=== PATIENT | female | born 1955 | race Caucasian/White ===

== ENCOUNTER 2017-06-24 23:04 | Inpatient (IN) | payer OTHER ==
[2017-06-25 00:01] LABS: Absolute Lymphocytes (CBC) 3.1 K/uL (0.7-4.9); Absolute Monocytes 0.8 K/uL (0.1-1.3); Absolute Neutrophil 4.8 K/uL (1.8-8.0); Basophils % 0.7 % (0-1.3); Eosinophils % 6.3 % (0-4.4); Hematocrit 41.8 % (36.0-45.0); MCH 29.6 pg (27.0-35.0); MCV 89.2 fL (80-100); MPV 9.4 fL (7.6-11.3); Monocytes % 8.7 % (3.3-12.3); RBC Red Blood Cell Count 4.68 M/uL (3.86-4.86)
[2017-06-25 00:05] LABS: Protime INR 3.35
[2017-06-25] MEDS ORDERED: NITROGLYCERIN 0.4 MG/TAB SL ONE (00:11)
[2017-06-25 00:15] LABS: Potassium 3.9 mEq/L (3.6-5.0)
[2017-06-25 00:21] LABS: Bilirubin Direct 0.1 mg/dL (0-0.2); Bilirubin Total 0.6 mg/dL (0.3-1.2); CKMB Creatine Kinase MB 1.6 ng/ml (0.3-4.0); Magnesium 2.1 mg/dL (1.8-2.5); Protein, Total 7.8 g/dL (6.0-8.3)
--- NOTE | 2017-06-25 00:41 | ER ---
Nurse's Notes [facility] Name: Celsa Lorenzo Age: 62 yrs Sex: Female : 1955 Arrival Date: 06/24/2017 Time: 23:05 Bed 7 Private MD: Diagnosis: Chest pain, unspecified Presentation: 06/24 22:15 Presenting complaint: Patient states: "On and off today I have been having this bs1 tightness in my chest but it went away, tonight it got unbearable, I took nitro around 2150 tonight and it seemed to help some but they were old, it hurts right in the middle and in between my shoulder blades and underneath my left chest.". Transition of care: patient was not received from another setting of care. Onset of symptoms was June 24, 2017 at 21:00. Care prior to arrival: Medication(s) given: Nitroglycerin, 0.4 mg SL x 1. 22:15 Method Of Arrival: Ambulatory bs1 22:15 Acuity: MAXIMO 2 bs1 Historical: - Allergies: 23:35 Iodine; Topical only; bs1 - Home Meds: 23:35 Coumadin 10 mg Oral tab [Active]; digoxin 125 mcg Oral tab 1 tab once daily [Active]; bs1 Lasix 20 mg Oral tab 1 tab once daily [Active]; Wellbutrin 150mg Oral 1 tab daily [Active]; Zoloft 50 mg Oral tab 1 tab once daily [Active]; methotrexate sodium 2.5 mg Oral tab once wkly [Active]; sotalol 120 mg Oral tab 1 tab 2 times per day [Active]; Xeljanz oral oral [Active]; - PMHx: 23:35 Atrial Fib; CHF; Hypertension; Rheumatoid Arthritis; COPD; mitral valve stenosis; bs1 pulmonary htn; resp failure; cardioversion; - PSHx: 23:35 c section; bs1 - Immunization history:: Adult Immunizations up to date. - Social history:: Smoking status: Patient/guardian denies using tobacco, the patient reports quitting approximately 5 years ago. Screenin:35 Abuse screen: Denies threats or abuse. Denies injuries from another. Nutritional bs1 screening: No deficits noted. Tuberculosis screening: No symptoms or risk factors identified. Fall Risk None identified. Assessment: 23:15 General: Appears in no apparent distress. uncomfortable, Behavior is cooperative, bs1 appropriate for age, anxious. Pain: Complains of pain in mid chest, between shoulder blades, underneath left breast Pain does not radiate. Pain currently is 6 out of 10 on a pain scale. Quality of pain is described as pressure, Pain began gradually. Neuro: Level of Consciousness is awake, alert, obeys commands, Oriented to person, place, time, situation, Appropriate for age Airplane Designer are equal bilaterally Moves all extremities. Gait is steady, Speech is normal, Facial symmetry appears normal. Cardiovascular: Reports chest pain, Denies palpitations, shortness of breath, Heart tones S1 S2 present Capillary refill < 3 seconds Patient's skin is warm and dry. Chest pain is located in chest wall. Respiratory: Airway is patent Trachea midline Respiratory effort is even, unlabored, Respiratory pattern is regular, symmetrical, Breath sounds are clear bilaterally. GI: No deficits noted. No signs and/or symptoms were reported involving the gastrointestinal system. : No deficits noted. No signs and/or symptoms were reported regarding the genitourinary system. EENT: No deficits noted. No signs and/or symptoms were reported regarding the EENT system. Derm: No deficits noted. No signs and/or symptoms reported regarding the dermatologic system. Musculoskeletal: Circulation, motion, and sensation intact. Capillary refill < 3 seconds, Range of motion: intact in all extremities. 06/25 00:15 Reassessment: Patient appears in no apparent distress at this time. Patient and/or bs1 family updated on plan of care and expected duration. Pain level reassessed. Patient is alert, oriented x 3, equal unlabored respirations, skin warm/dry/pink. Blood pressure decreased. Symptoms improving. No chest pain noted at this time. Patient states symptoms have improved. 01:15 Reassessment: Patient appears in no apparent distress at this time. Patient is alert, bs1 oriented x 3, equal unlabored respirations, skin warm/dry/pink. Vital Signs: 06/24 23:15 BP 139 / 116; Pulse 119; Resp 17; Temp 98.3(O); Pulse Ox 96% on R/A; Weight 97.52 kg; bs1 Height 5 ft. 10 in. (177.80 cm); Pain 6/10; 06/25 00:15 BP 111 / 81; Pulse 88; Resp 14; Pulse Ox 97% on R/A; Pain 0/10; bs1 01:15 BP 103 / 67; Pulse 82; Resp 15; Pulse Ox 97% on R/A; Pain 6/10; bs1 02:07 BP 137 / 85; Pulse 118; Resp 20; Pulse Ox 98% on R/A; mt 06/24 23:15 Body Mass Index 30.85 (97.52 kg, 177.80 cm) bs1 ED Course: 06/24 22:15 Arm band placed on right wrist. bs1 23:05 Patient arrived in ED. al2 23:22 EKG done, by ED staff, reviewed by Brent Mcguire MD. mt 23:22 Inserted saline lock: 22 gauge in right forearm, using aseptic technique. bs1 23:22 Patient maintains SpO2 saturation greater than 95% on room air. bs1 23:28 Nancy Navarro, RN is Primary Nurse. bs1 23:32 Triage completed. bs1 23:36 Patient has correct armband on for positive identification. Placed in gown. Bed in low bs1 position. Call light in reach. Side rails up X 1. rocket motor tester on. Pulse ox on. NIBP on. Warm blanket given. 23:41 Pk Bruno NP is PHCP. pm1 23:41 Brent Mcguire MD is Attending Physician. pm1 06/25 00:20 X-ray completed. Portable x-ray completed in exam room. Patient tolerated procedure kw well. 00:35 No provider procedures requiring assistance completed. bs1 00:40 Sherry Juarez MD is Hospitalizing Provider. pm1 01:47 Patient admitted, IV remains in place. intact. bs1 Administered Medications: 06/24 23:52 Drug: Nitroglycerin 0.4 mg Route: Sublingual; bs1 23:57 Drug: Nitroglycerin 0.4 mg Route: Sublingual; bs1 06/25 00:35 Follow up: Response: Pain is decreased bs1 01:31 Drug: morphine 4 mg Route: IVP; Site: right forearm; bs1 02:08 Follow up: Response: No adverse reaction bs1 01:31 Drug: Zofran 4 mg Route: IVP; Site: right forearm; bs1 02:07 Follow up: Response: No adverse reaction bs1 Outcome: 00:40 Decision to Hospitalize by Provider. pm1 01:46 Admitted to [facility] by tech, via stretcher, room 420, with chart, Report bs1 called to EDWINA Moser 01:46 Condition: stable 02:09 Patient left the ED. bs1 Signatures: Cynthia Keller Patrick, TOP IRONER TOP IRONER pm1 Radha Hahn mt, Brittany, RN RN bs1 Maria Alejandra Reed
--- NOTE | 2017-06-25 00:41 | EDPHYS ---
Physician Documentation [facility] Name: Celsa Lorenzo Age: 62 yrs Sex: Female : 1955 Arrival Date: 06/24/2017 Time: 23:05 Bed 7 Private MD: ED Physician Brent Mcguire HPI: 06/25 00:25 This 62 yrs old Female presents to ER via Ambulatory with complaints of Chest pm1 Pain, Back Pain, Shortness Of Breath. 00:25 The patient or guardian reports chest pain that is located primarily in the substernal pm1 area. Onset: this morning. Associated signs and symptoms: Pertinent positives: shortness of breath, Pertinent negatives: abdominal pain, cough. The chest pain is described as a pressure. Duration: The patient or guardian reports multiple episodes, Single chest pain episode of constant duration onset at 2100. Modifying factors: The symptoms are alleviated by NTG, pain from 6-7 to 4/10. Severity of pain: in the emergency department the pain has improved mildly. The patient has experienced similar episodes in the past, a few times. The patient has not recently seen a physician. Patient presents to the ER with complaints of constant chest pain onset at 2100 - 2130. Patient has multiple chest pain episodes, felt like "twinges," at the beginning of the morning that just lasted for a few seconds. Patient with complaint of fullness and pressure to lower substernal area. Took one nitro prior to arrival at 2150 that brought the pain down to 4/10. Patient reports some shortness of breath and nausea. No vomiting. Patient also reporting some pain between her shoulder blades. Historical: - Allergies: 06/24 23:35 Iodine; Topical only; bs1 - Home Meds: 23:35 Coumadin 10 mg Oral tab [Active]; digoxin 125 mcg Oral tab 1 tab once daily [Active]; bs1 Lasix 20 mg Oral tab 1 tab once daily [Active]; Wellbutrin 150mg Oral 1 tab daily [Active]; Zoloft 50 mg Oral tab 1 tab once daily [Active]; methotrexate sodium 2.5 mg Oral tab once wkly [Active]; sotalol 120 mg Oral tab 1 tab 2 times per day [Active]; Xeljanz oral oral [Active]; - PMHx: 23:35 Atrial Fib; CHF; Hypertension; Rheumatoid Arthritis; COPD; mitral valve stenosis; bs1 pulmonary htn; resp failure; cardioversion; - PSHx: 23:35 c section; bs1 - Immunization history:: Adult Immunizations up to date. - Social history:: Smoking status: Patient/guardian denies using tobacco, the patient reports quitting approximately 5 years ago. ROS: 06/25 00:25 Constitutional: Negative for fever, chills, and weight loss, Eyes: Negative for injury, pm1 pain, redness, and discharge, ENT: Negative for injury, pain, and discharge, Neck: Negative for injury, pain, and swelling. : Negative for injury, bleeding, discharge, and swelling, MS/Extremity: Negative for injury and deformity, Skin: Negative for injury, rash, and discoloration, Neuro: Negative for headache, weakness, numbness, tingling, and seizure. Cardiovascular: Positive for chest pain, Negative for edema, palpitations. Respiratory: Positive for shortness of breath, Negative for cough. Abdomen/GI: Positive for nausea, Negative for abdominal pain, vomiting, diarrhea. Back: Positive for Pain between shoulder blades. Exam: 00:25 Constitutional: This is a well developed, well nourished patient who is awake, alert, pm1 and in no acute distress. Head/Face: Normocephalic, atraumatic. Neck: Trachea midline, no thyromegaly or masses palpated, and no cervical lymphadenopathy. Supple, full range of motion without nuchal rigidity, or vertebral point tenderness. No Meningismus. Chest/axilla: Normal chest wall appearance and motion. Nontender with no deformity. No lesions are appreciated. Cardiovascular: Regular rate and rhythm with a normal S1 and S2. No gallops, murmurs, or rubs. Normal PMI, no JVD. No pulse deficits. Respiratory: Lungs have equal breath sounds bilaterally, clear to auscultation and percussion. No rales, rhonchi or wheezes noted. No increased work of breathing, no retractions or nasal flaring. Abdomen/GI: Soft, non-tender, with normal bowel sounds. No distension or tympany. No guarding or rebound. No evidence of tenderness throughout. Back: No spinal tenderness. No costovertebral tenderness. Full range of motion. Skin: Warm, dry with normal turgor. Normal color with no rashes, no lesions, and no evidence of cellulitis. MS/ Extremity: Pulses equal, no cyanosis. Neurovascular intact. Full, normal range of motion. 00:25 Neuro: Orientation: is normal, Motor: is normal, moves all fours. Vital Signs: 06/24 23:15 BP 139 / 116; Pulse 119; Resp 17; Temp 98.3(O); Pulse Ox 96% on R/A; Weight 97.52 kg; bs1 Height 5 ft. 10 in. (177.80 cm); Pain 6/10; 06/25 00:15 BP 111 / 81; Pulse 88; Resp 14; Pulse Ox 97% on R/A; Pain 0/10; bs1 01:15 BP 103 / 67; Pulse 82; Resp 15; Pulse Ox 97% on R/A; Pain 6/10; bs1 02:07 BP 137 / 85; Pulse 118; Resp 20; Pulse Ox 98% on R/A; mt 06/24 23:15 Body Mass Index 30.85 (97.52 kg, 177.80 cm) bs1 MDM: 06/24 23:50 Patient medically screened. pm1 06/25 00:25 Data reviewed: vital signs. Data interpreted: Pulse oximetry: on room air is 97 %. pm1 Interpretation: normal. Counseling: I had a detailed discussion with the patient and/or guardian regarding: the historical points, exam findings, and any diagnostic results supporting the discharge/admit diagnosis, lab results, radiology results, the need for further work-up and treatment in the hospital. 06/24 23:42 Order name: Basic Metabolic Panel [facility] 06/24 23:42 Order name: BNP [facility] 06/24 23:42 Order name: CBC with Diff [facility] 06/24 23:42 Order name: Ckmb [facility] 06/24 23:42 Order name: CPK [facility] 06/24 23:42 Order name: Basic Metabolic Panel [facility] 06/24 23:42 Order name: LFT's [facility] 06/24 23:42 Order name: Magnesium [facility] 06/24 23:42 Order name: PT-INR [facility] 06/24 23:42 Order name: Ptt, Activated [facility] 06/24 23:42 Order name: Troponin (emerg Dept Use Only) [facility] 06/24 23:42 Order name: BNP [facility] 06/24 23:42 Order name: CBC with Diff [facility] 06/24 23:42 Order name: Ckmb pm1 06/24 23:42 Order name: CPK pm1 06/24 23:42 Order name: LFT's pm 06/24 23:42 Order name: Magnesium pm 06/24 23:42 Order name: PT-INR 1 06/24 23:42 Order name: Ptt, Activated pm 06/24 23:42 Order name: Troponin (emerg Dept Use Only) pm 06/25 00:03 Order name: CBC with Automated Diff; Complete Time: 00:23 EDMS 06/25 00:10 Order name: Protime (+INR); Complete Time: 00:23 EDMS 06/25 00:10 Order name: PTT, Activated Partial Thromb; Complete Time: 00:23 EDMS 06/25 00:15 Order name: Basic Metabolic Panel [facility] 06/25 00:17 Order name: Troponin (Emerg Dept Use Only); Complete Time: 00:23 EDMS 06/25 00:20 Order name: BNP B-Type Natriuretic Peptide; Complete Time: 00:23 EDMS 06/25 00:21 Order name: Liver (Hepatic) Function [facility] 06/25 00:21 Order name: Creatine Phosphokinase [facility] 06/25 00:21 Order name: Magnesium [facility] 06/25 00:21 Order name: CKMB Creatine Kinase MB [facility] 06/24 23:42 Order name: XRAY Chest (1 view) [facility] 06/24 23:42 Order name: EKG; Complete Time: 23:42 [facility] 06/24 23:42 Order name: Cardiac monitoring [facility] 06/24 23:42 Order name: EKG - Nurse/Tech [facility] 06/24 23:42 Order name: IV Saline Lock 06/24 23:42 Order name: Labs collected and sent 06/24 23:42 Order name: O2 Per Protocol [facility] 06/24 23:42 Order name: O2 Sat Monitoring 06/24 23:42 Order name: Urine Dipstick-Ancillary (obtain specimen) [facility] 06/24 23:42 Order name: XRAY Chest (1 view) [facility] 06/24 23:42 Order name: EKG; Complete Time: 23:42 pm 06/24 23:42 Order name: Cardiac monitoring; Complete Time: 23:43 pm 06/24 23:42 Order name: EKG - Nurse/Tech; Complete Time: 23:43 pm1 06/24 23:42 Order name: IV Saline Lock; Complete Time: 23:43 pm1 06/24 23:42 Order name: O2 Per Protocol; Complete Time: 23:44 pm1 06/24 23:42 Order name: O2 Sat Monitoring; Complete Time: 23:43 pm1 Administered Medications: 06/24 23:52 Drug: Nitroglycerin 0.4 mg Route: Sublingual; bs1 23:57 Drug: Nitroglycerin 0.4 mg Route: Sublingual; bs1 06/25 00:35 Follow up: Response: Pain is decreased bs1 01:31 Drug: morphine 4 mg Route: IVP; Site: right forearm; bs1 02:08 Follow up: Response: No adverse reaction bs1 01:31 Drug: Zofran 4 mg Route: IVP; Site: right forearm; bs1 02:07 Follow up: Response: No adverse reaction bs1 Disposition: 03:51 Co-signature as Attending Physician, Brent Mcguire MD. pkseth Disposition: 06/25/17 00:40 Hospitalization ordered by Sherry Juarez for Observation. Preliminary diagnosis is Chest pain, unspecified. - Bed requested for Telemetry/MedSurg (observation). - Status is Observation. bs1 - Condition is Stable. - Problem is new. - Symptoms have improved. UTI on Admission? No Signatures: Dispatcher [employer] Rosalba Juarez RN RN kl Lam, Pin, MD MD pkl Pk Bruno, JEFFERSON ASSISTANT PROFESSOR OF MATHEMATICS pm1 Nancy Navarro, RN RN bs1
[2017-06-25] MEDS ORDERED: MORPHINE 4 MG/ML SYR ONE (01:08)
[2017-06-25] MEDS ORDERED: ONDANSETRON 4 MG/2 ML VIAL ONE (01:08)
[2017-06-25] MEDS ORDERED: NITROGLYCERIN 0.4 MG/TAB SL PRN (01:39)
[2017-06-25] MEDS ORDERED: ACETAMINOPHEN 500 MG TAB PO PRN (01:39)
--- NOTE | 2017-06-25 01:44 | P.HP ---
Certification for Inpatient Patient admitted to: Observation With expected LOS: <2 Midnights Practitioner: I am a practitioner with admitting privileges, knowledge of patient current condition, hospital course, and medical plan of care. Services: Services provided to patient in accordance with Admission requirements found in Title 42 Section 412.3 of the Code of Federal Regulations Patient History Date of Service: 06/25/17 Reason for admission: chest pain History of Present Illness: Ms Lorenzo is a 62 years old woman with history of RA, COPD, moderate mitral stenosis, HTN, Chronic A.fib anticoagulated with coumadin, who came to ED complaining of chest pain. The pain started yesterday, it was on and off, initially lasting for a few seconds, localized on substernal area radiated to bilateral neck and mandibular area. Tonight, the pain was more intense (8/10), radiated to the back between shoulder blade. She describe the pain as tight feeling. She took a nitro SL, and the pain slightly improved. Then she received 2 more nitro in ER and she felt some relieve. The patient has previous NM stress test done at [facility], which was negative. 2 month ago she was admitted for COPD exacerbation and had an ECHO done, showing mild global hypokinesis EF 46%. At my encounter the patient was starting to have pain again. Initial trop I is negative, EKG remarkable for a.fib without ST-T changes. Allergies iodine Allergy (Verified 04/20/17 21:14) Unknown Home Medications: Digoxin [Lanoxin*] 0.125 mg PO DAILY 04/20/17 Methotrexate [Methotrexate*] 8 tab PO EVERY 7TH DAY 04/20/17 Warfarin Sodium [Coumadin] 10.5 mg PO DAILY 04/20/17 Albuterol Sulfate [Proair Hfa] 8.5 gm IH TID PRN #90 hfa.aer.[email or web address] 04/25/17 Cefuroxime [Ceftin*] 500 mg PO BID #14 tab 04/25/17 Fluticasone/Salmeterol [Airduo Respiclick 113-14 Mcg] 1 each IH BID #1 aer.pow.[email or web address] 04/25/17 Furosemide [Lasix*] 40 mg PO DAILY #30 tab 04/25/17 Prednisone [Prednisone*] 20 mg PO SEECOM #15 tab 04/25/17 Sotalol HCl [Betapace*] 160 mg PO BID 6AM 6PM #120 tab 04/25/17 - Past Medical/Surgical History Has patient received pneumonia vaccine in the past: No Diabetic: No -: Afib -: Rheumatoid arthritis -: Hypertension -: CHF -: pulm htn -: copd -: mitral valve stenosis -: resp failure -: mitral valve replacement -: c- section - Family History Family History: Reviewed- Non-Contributory - Social History Smoking Status: Former smoker Alcohol use: No CD- Drugs: No Caffeine use: No Place of Residence: Home Review of Systems 10-point ROS is otherwise unremarkable Physical Examination - Physical Exam General: Alert, In no apparent distress HEENT: Atraumatic, PERRLA, Mucous membr. moist/pink, EOMI, Sclerae nonicteric Neck: Supple, 2+ carotid pulse no bruit, No LAD, Without JVD or thyroid abnormality Respiratory: Clear to auscultation bilaterally, Normal air movement Cardiovascular: Regular rate/rhythm, Normal S1 S2 Gastrointestinal: Normal bowel sounds, No tenderness Musculoskeletal: No tenderness Integumentary: No rashes Neurological: Normal speech, Normal strength at 5/5 x4 extr, Normal tone, Normal affect Lymphatics: No axilla or inguinal lymphadenopathy - Studies Laboratory Data (last 24 hrs) 06/24/17 23:22: PT 40.0 H, INR 3.35, APTT 42.8 H 06/24/17 23:22: WBC 9.4, Hgb 13.9, Hct 41.8, Plt Count 262 06/24/17 23:22: B-Natriuretic Peptide 341 H 06/24/17 23:22: Sodium 135, Potassium 3.9, BUN 16, Creatinine 1.00, Glucose 117 , Magnesium 2.1, Total Bilirubin 0.6, AST 28, ALT 18, Alkaline Phosphatase 56 Assessment and Plan - Problems (Diagnosis) (1) Chest pain Current Visit: Yes Status: Acute Qualifiers: Chest pain type: precordial pain Qualified Code(s): R07.2 - Precordial pain (2) Moderate mitral stenosis Current Visit: Yes Status: Acute (3) COPD (chronic obstructive pulmonary disease) Current Visit: No Status: Acute Qualifiers: COPD type: COPD with acute exacerbation Qualified Code(s): J44.1 - Chronic obstructive pulmonary disease with (acute) exacerbation (4) Atrial fibrillation Current Visit: No Status: Chronic Qualifiers: Atrial fibrillation type: chronic Qualified Code(s): I48.2 - Chronic atrial fibrillation (5) Chronic anticoagulation Current Visit: No Status: Chronic (6) HTN (hypertension) Onset Date: 04/23/17 Current Visit: No Status: Chronic Qualifiers: Hypertension type: essential hypertension Qualified Code(s): I10 - Essential (primary) hypertension - Plan The patient will be admitted to the hospital due to chest pain in order to S/O ACS. initial trop is negative, no EKG changes. Will continue serial cardiac enzymes. She had a recent ECHO done about [address] braun for evaluation and recommendations. She is on good range of anticoagulation with Coumadin. - Advance Directives Does patient have a Living Will: No Does patient have a Durable POA for Healthcare: No - Code Status/Comfort Care Code Status Assessed: Yes Code Status: Full Code
[2017-06-25 02:40] VITALS: BMI 29.7
--- NOTE | 2017-06-25 05:02 | EKG ---
Test Date: 2017-06-24 Test Time: 23:13:27 Medical Device Engineer: HARRISON MEASUREMENT RESULTS: Intervals: Rate: 104 SD: QRSD: 84 QT: 350 QTc: 460 Diamond: P: SD: QRS: 80 T: 107 INTERPRETIVE STATEMENTS: Atrial fibrillation with rapid ventricular response Cannot rule out Anterior infarct, age undetermined Abnormal ECG Compared to ECG 04/20/2017 11:26:54 Myocardial infarct finding now present Atrial flutter no longer present ST (T wave) deviation no longer present Electronically Signed On 06-25-17 05:01:34 CDT by Jak Guzman
[2017-06-25] MEDS: SOTALOL HCL 80 MG TAB PO SCH ×2 (07:07→17:33)
--- NOTE | 2017-06-25 07:51 | RAD REPORT ---
EXAM DESCRIPTION: RAD - Chest Single View - 06/25/2017 12:23 am CLINICAL HISTORY: Chest pain, chest tightness COMPARISON: April 2017 TECHNIQUE: AP portable chest image was obtained 0000 hours . FINDINGS: No focal mass or consolidation. Interstitial markings are prominent but unchanged. Upper l obe vasculature is within upper normal limits. Mild cardiomegaly is present similar to prior imaging. No measurable pleural effusion and no pneumothorax. No gross bony abnormality seen. No acute aortic findings suspected. IMPRESSION: Mild cardiomegaly similar to prior imaging. No additional findings for significant failu re or volume overload. Mild prominence of the vasculature and lung markings similar to comparison.
[2017-06-25] MEDS ORDERED: VITAMIN K (ADULT) 10 MG/ML SQ SCH (08:00)
[2017-06-25] MEDS: ASPIRIN EC 81 MG TAB PO SCH (08:52)
[2017-06-25] MEDS: MORPHINE 4 MG/ML SYR IV PRN ×3 (09:09→21:03)
[2017-06-25] MEDS ORDERED: ALBUTEROL INHALER 60 PUFF/8 GM IH PRN (10:11)
[2017-06-25] MEDS ORDERED: FLUTICASONE IH PRN (10:11)
[2017-06-25] MEDS ORDERED: SALMETEROL IH PRN (10:11)
--- NOTE | 2017-06-25 12:34 | CON ---
CARDIOLOGY CONSULT Chief Complaint: Chest pain. History Of Present Illness: Mrs. Lorenzo has had atrial fibrillation for several years. She has bee n on Coumadin. She is thought to have mitral stenosis that is mild; it has not been bad enough to re quire surgery. She spent most of her time in sinus rhythm until recently. Now, she thinks she is in atrial fibrillation all the time with the rate controlled. She takes Coumadin. Yesterday, she came in with severe chest pain. It sounded very much like angina, but since being here, cardiac enzymes remained normal. Her heart rate was very rapid. Once it slowed down, she no longer had the chest pa in. A month ago, her ejection fraction was depressed. She had evidence of moderate mitral stenosis. Medications: Outpatient medications have been methotrexate, albuterol, sertraline, digoxin, Coumadin , bupropion, Xeljanz, sotalol 120 b.i.d., furosemide, and AirDuo RespiClick. Social History: She does not use tobacco or alcohol. Past Medical History: She has underlying hypertension, atrial fibrillation, rheumatoid arthritis, an d depression. Physical Examination: Vital Signs: Height 5 feet 10 inches, weight 207 pounds. General: Alert, oriented, pleasant, and not in distress. Lungs: Clear. Cardiac: Holosystolic murmur. Irregularly irregular. I do not hear a diastolic rumble or opening s nap. Abdomen: Soft. Extremities: Trace edema. Distal pulses within normal limits. Diagnostic Data: Her electrocardiogram shows AFib, rapid ventricular response, possible anterior inf arct. Her heart rate was just 104 when she came in. Impression: Ms. Lorenzo probably is having unstable angina. I think she should have a heart cathete rization that will figure out if she is a candidate for valve surgery and/or an atrial fibrillation a blation. She spent a significant amount of time in the hospital in the last 3 months and it is proba truong time to shift gears and get more aggressive. I am very suspicious she has underlying coronary he art disease causing this in spite of the normal enzymes. Thank you very much for your kind referral of Ms. Lorenzo. I will follow her with you. ABBY/RINA Voice ID: [id number] Report ID: [id number]
[2017-06-25 18:14] LABS: Protime INR 3.49
--- NOTE | 2017-06-25 20:08 | PN ---
Date of Progress Note: 06/25/2017 The patient is seen and examined, chart reviewed and case discussed with RN. Subjective: The patient states her chest pain has improved. Otherwise, doing well. Review of Systems: Negative, except as above. Medications: Reviewed. Physical Examination: Vital Signs: Temperature 98.2, heart rate 89, blood pressure 114/84, respirations 16, and O2 of 97% on room air. General: Awake, alert, and oriented x3, somewhat ill-appearing female. CV: S1 and S2. No murmurs. Peripheral pulses present. Respiratory: Clear to auscultation bilaterally. No wheezing. Gastrointestinal: Abdomen is soft, nontender, and nondistended. Positive bowel sounds. Extremities: No clubbing, cyanosis, or edema. Neurologic: Nonfocal. Laboratory Data: Troponin less than 0.03 x2. INR pending. Assessment And Plan: A 62-year-old female with, 1.Unstable angina. Cardiac enzymes are negative. However, the patient is at risk for coronary kwesi ry disease. I appreciate Dr. Guzman' input. Going for cardiac catheterization in a.m. 2.Moderate mitral stenosis. 3.Chronic obstructive pulmonary disease with acute exacerbation. We will continue DuoNeb and steroi ds. 4.Atrial fibrillation, chronic, rate controlled, on anticoagulation. 5.Essential hypertension. 6.Overweight, BMI 29. 7.Rheumatoid arthritis. We will hold methotrexate for now. 8.Congestive heart failure. Echocardiogram shows EF of 47% from April. 9.Gastrointestinal and deep venous thrombosis prophylaxis addressed. Plan: Anticipate heart catheterization in a.m. /RINA Voice ID: [id number] Report ID: [id number]
[2017-06-25] MEDS: ATORVASTATIN 80 MG TAB PO SCH (21:02)
[2017-06-26 05:17] LABS: Absolute Lymphocytes (CBC) 1.8 K/uL (0.7-4.9); Absolute Monocytes 0.7 K/uL (0.1-1.3); Absolute Neutrophil 4.7 K/uL (1.8-8.0); Basophils % 0.7 % (0-1.3); Eosinophils % 7.2 % (0-4.4); Hematocrit 40.3 % (36.0-45.0); Lymphocytes % 22.8 % (15.3-44.8); MCH 29.6 pg (27.0-35.0); MCV 91.2 fL (80-100); MPV 9.2 fL (7.6-11.3); Monocytes % 9.4 % (3.3-12.3); RBC Red Blood Cell Count 4.42 M/uL (3.86-4.86)
[2017-06-26 05:46] LABS: Albumin 3.5 g/dL (3.2-5.5); Bilirubin Total 0.5 mg/dL (0.3-1.2); Potassium 4.6 mEq/L (3.6-5.0); Protein, Total 6.6 g/dL (6.0-8.3)
[2017-06-26] MEDS: SOTALOL HCL 80 MG TAB PO SCH ×2 (05:54→17:16)
[2017-06-26 06:25] LABS: Protime INR 2.61
[2017-06-26] MEDS: DIGOXIN 0.125 MG TABLET PO SCH (08:56)
[2017-06-26] MEDS: FUROSEMIDE 20 MG TABLET PO SCH (08:56)
[2017-06-26] MEDS: buPROPion HCl 100 MG TAB PO SCH (08:56)
[2017-06-26] MEDS: SERTRALINE HCL 50 MG TAB PO SCH (08:57)
[2017-06-26] MEDS: ASPIRIN EC 81 MG TAB PO SCH (08:57)
[2017-06-26] MEDS: MORPHINE 4 MG/ML SYR IV PRN ×2 (11:03→17:19)
--- NOTE | 2017-06-26 14:54 | PN ---
Date of Progress Note: 06/26/2017 The patient seen and examined. Chart reviewed. Case discussed with RN. Subjective: The patient had uneventful night. The patient states she had one bout of chest pain, which improved with morphine. The patient is awaiting heart catheterization. Review of Systems: Negative except as above. Medications: Reviewed. Physical Examination: Vital Signs: Temperature 97.4, heart rate 77, blood pressure 114/75, respirations 16, O2 95% on room air. General: Awake, alert, and oriented x3. Older than stated age, elderly female. CV: S1, S2. Regular rate and rhythm. Murmurs present. Respiratory: Clear to auscultation bilaterally. No wheezing. No stridor. No use of accessory muscles. Gastrointestinal: Abdomen is soft, nontender, nondistended. Positive bowel sounds. Extremities: No clubbing, cyanosis, or edema. Neurologic: Nonfocal. Laboratory Data: Sodium 137, potassium 4.6, chloride 104, CO2 28, BUN 17, creatinine 0.86, glucose 102, calcium 9.4. WBC 7.8, H and H 13.1 and 40.3, platelets 222, INR 2.61. Assessment And Plan: A 62-year-old female with; 1. Unstable angina, acute coronary syndrome ruled out. The patient is scheduled for heart catheterization once INR improves. Appreciate Cardiology input. 2. Moderate mitral stenosis. 3. Chronic obstructive pulmonary disease with acute exacerbation. Continue DuoNebs and wean steroids. 4. Atrial fibrillation chronic rate controlled, acute regulation held. 5. Essential hypertension stable, continue home medications. 6. Overweight, BMI 29. 7. Rheumatoid arthritis. Methotrexate on hold for now. 8. Acute congestive heart failure, systolic dysfunction, ejection fraction of 47% from April. 9. Gastrointestinal and deep venous thrombosis prophylaxis addressed. plan: Anticipate heart catheterization. /RINA Voice ID: [id number] Report ID: [id number] MTDD
[2017-06-26] MEDS: RANITIDINE 150 MG TABLET PO SCH ×2 (20:34→20:39)
[2017-06-26] MEDS: ATORVASTATIN 80 MG TAB PO SCH (20:34)
--- NOTE | 2017-06-26 22:15 | PN ---
Date of Progress Note: 06/26/2017 The patient was admitted with atrial fibrillation and chest pain, moderate mitral stenosis. There is a plan to do a left and right heart catheterization on her. Her INR was 3.49, was given 10 mg of vi tamin K subcu yesterday at 8:30 p.m. This morning, her INR is about 2.6. Still not a candidate for catheterization yet. We will not give anymore vitamin K. We will see what her INR is in the morning and we will decide when to do the catheterization. She is still in atrial fibrillation at a rate co ntrol and no chest pain. Her vital signs were stable. She has no complaints. SHARON/RINA Voice ID: [id number] Report ID: [id number]
[2017-06-27] MEDS: MORPHINE 4 MG/ML SYR IV PRN ×4 (00:50→20:59)
[2017-06-27] MEDS: SOTALOL HCL 80 MG TAB PO SCH ×2 (06:12→18:08)
[2017-06-27 06:21] LABS: Absolute Lymphocytes (CBC) 1.5 K/uL (0.7-4.9); Absolute Monocytes 0.9 K/uL (0.1-1.3); Absolute Neutrophil 5.9 K/uL (1.8-8.0); Basophils % 0.8 % (0-1.3); Eosinophils % 6.4 % (0-4.4); Hematocrit 40.1 % (36.0-45.0); MCH 29.5 pg (27.0-35.0); MCV 90.8 fL (80-100); MPV 9.4 fL (7.6-11.3); Monocytes % 9.6 % (3.3-12.3); RBC Red Blood Cell Count 4.42 M/uL (3.86-4.86)
[2017-06-27 06:46] LABS: Albumin 3.6 g/dL (3.2-5.5); Bilirubin Total 1.1 mg/dL (0.3-1.2); Potassium 4.2 mEq/L (3.6-5.0); Protein, Total 6.6 g/dL (6.0-8.3)
[2017-06-27 07:10] LABS: Protime INR 1.4
[2017-06-27] MEDS: RANITIDINE 150 MG TABLET PO SCH ×2 (08:11→21:00)
[2017-06-27] MEDS: SERTRALINE HCL 50 MG TAB PO SCH (08:11)
[2017-06-27] MEDS: FUROSEMIDE 20 MG TABLET PO SCH (08:12)
[2017-06-27] MEDS: DIGOXIN 0.125 MG TABLET PO SCH (08:12)
[2017-06-27] MEDS: buPROPion HCl 100 MG TAB PO SCH (08:12)
[2017-06-27] MEDS: ASPIRIN EC 81 MG TAB PO SCH (08:13)
[2017-06-27] MEDS ORDERED: HEPARIN/D5W 25,000 UNIT/500 ML BAG IV SCH (10:00)
--- NOTE | 2017-06-27 19:16 | PN ---
Date of Progress Note: 06/27/2017 Subjective: The patient seen and examined. Chart reviewed. Case discussed with Dr. Guzman. The nancy bower is scheduled for cardiac catheterization in a.m. The patient still reports ongoing intermitten t chest pain, improved with medications. Review of Systems: Negative except as above. Medications: Reviewed. Physical Examination: Vital Signs: Temperature 97.2, heart rate 72, blood pressure 126/66, respirations 18, O2 94% on room air. General: Awake, alert, and oriented x3, some mild distress. Obese female, BMI of 30. CV: S1, S2 irregularly irregular. Peripheral pulses present. Murmur is heard. Respiratory: Clear to auscultation bilaterally. No wheezing. Abdomen: Soft, nontender, nondistended. Positive bowel sounds. No guarding or rigidity. Extremities: No clubbing, cyanosis, or edema. Neurologic: Nonfocal. Laboratory Data: Sodium 137, potassium 4.2, chloride 103, CO2 28, BUN 13, creatinine 0.79, glucose 8 8, calcium 9.3. WBC 9, H and H 13 and 40.1, platelets 213. INR 1.4. Assessment And Plan: A 62-year-old female with; 1.Unstable angina. Troponin levels negative. Scheduled for right and left heart catheterization in a.m. Cardiology on the case. 2.Moderate mitral stenosis. 3.Chronic obstructive pulmonary disease with acute exacerbation. Continue DuoNebs, supplemental oxy gen as needed. 4.Atrial fibrillation, chronic, rate controlled, anticoagulation held. 5.Essential hypertension, stable on medications. 6.Obese, BMI of 30. 7.Rheumatoid arthritis. DMARDs on hold. 8.Acute congestive heart failure, heart failure, systolic dysfunction, ejection fraction of 47%. We will continue diuresis and congestive heart failure guidelines. 9.Gastrointestinal and deep venous thrombosis prophylaxis with PPI. No chemical anticoagulation due to anticipated procedure in a.m. SA/MODL Voice ID: [id number] Report ID: [id number]
[2017-06-27] MEDS: ATORVASTATIN 80 MG TAB PO SCH (20:59)
[2017-06-28] MEDS: MORPHINE 4 MG/ML SYR IV PRN ×2 (01:47→11:19)
[2017-06-28 05:42] LABS: Absolute Lymphocytes (CBC) 1.9 K/uL (0.7-4.9); Absolute Neutrophil 5.2 K/uL (1.8-8.0); Basophils % 0.7 % (0-1.3); Eosinophils % 5.8 % (0-4.4); Hematocrit 39.2 % (36.0-45.0); Lymphocytes % 21.8 % (15.3-44.8); MCH 29.9 pg (27.0-35.0); MPV 9.4 fL (7.6-11.3); Monocytes % 11.7 % (3.3-12.3); RBC Red Blood Cell Count 4.31 M/uL (3.86-4.86)
[2017-06-28 05:54] LABS: Protime INR 1.15
[2017-06-28 05:57] LABS: Potassium 4.1 mEq/L (3.6-5.0)
[2017-06-28] MEDS: SOTALOL HCL 80 MG TAB PO SCH ×2 (06:08→16:59)
[2017-06-28] MEDS ORDERED: HEPA 1000U/500MLS 2,000 UNIT/1,000 ML BAG IV ONE (07:13)
[2017-06-28] MEDS ORDERED: LIDOCAINE 1% 20 ML MDV ONE ×2 (07:13→08:31)
[2017-06-28] MEDS ORDERED: NA CHLORIDE 0.9% 500 ML ONE (07:58)
[2017-06-28] MEDS ORDERED: ATROPINE SULF 1 MG/10 ML SYR IV ONE (07:58)
[2017-06-28] MEDS ORDERED: MIDAZOLAM HCL 2 MG/2 ML INJ ONE ×3 (07:58→08:29)
[2017-06-28] MEDS ORDERED: NA CHLORIDE 0.9% 0 ML ONE (07:59)
[2017-06-28] MEDS ORDERED: FENTANYL CITR 100 MCG/2 ML ONE (08:03)
[2017-06-28] MEDS ORDERED: NA CHLORIDE 0.9% 100 ML IV ONE (08:18)
[2017-06-28] MEDS ORDERED: METHYLPREDNISOLONE 125 MG INJ ONE (08:27)
[2017-06-28] MEDS ORDERED: FLUMAZENIL 0.1 MG/ML (5 mL VIAL) IV ONE (08:34)
[2017-06-28] MEDS: RANITIDINE 150 MG TABLET PO SCH ×2 (09:00→20:54)
[2017-06-28] MEDS: buPROPion HCl 100 MG TAB PO SCH (09:00)
[2017-06-28] MEDS: SERTRALINE HCL 50 MG TAB PO SCH (13:33)
[2017-06-28] MEDS: ASPIRIN EC 81 MG TAB PO SCH (13:33)
[2017-06-28] MEDS: DIGOXIN 0.125 MG TABLET PO SCH (13:36)
[2017-06-28] MEDS: FUROSEMIDE 20 MG TABLET PO SCH (13:38)
--- NOTE | 2017-06-28 14:06 | RAD REPORT ---
EXAM DESCRIPTION: RAD - Abdomen 1 View (KUB) - 06/28/2017 1:47 pm CLINICAL HISTORY: Abdominal pain COMPARISON: None. FINDINGS: Bowel gas pattern is non-specific. No obstruction, free air or pneumatosis. No suspicious calcifications. Contrast is present in the urinary bladder. The patient apparently underwent a cardi ac catheterization procedure earlier in the day. No significant bony findings IMPRESSION: Negative KUB examination.
--- NOTE | 2017-06-28 16:22 | PN ---
Date of Progress Note: 06/28/2017 Subjective: Patient seen and examined. Chart reviewed. Case discussed with RN and Dr. Ash. Th e patient went for cardiac catheterization this morning with normal coronaries. The patient denies a ny chest pain. Does report some abdominal pain. Review of Systems: Negative except as above. Medications: Reviewed. Physical Examination: Vital Signs: Temperature 97.8, heart rate 94, blood pressure 136/67, respirations 16, O2 saturation 98% on room air. General: Awake, alert, oriented x3, some mild distress due to abdominal pain, obese female. BMI 30. CV: S1, S2. No murmurs. Irregular rate. Peripheral pulses present. Respiratory: Clear to auscultation bilaterally. No wheezing. Abdomen: Abdomen soft, nontender, nondistended. Positive bowel sounds. Extremities: No clubbing, cyanosis, or edema. Catheter site shows no hematoma. Neurologic: Nonfocal. Sensation intact. Laboratory Data: Sodium 138, potassium 4.1, chloride 103, CO2 30, BUN 12, creatinine 0.8, glucose 10 3, calcium 9.2. WBC 8.7, H and H 12.9 and 39.2, platelets 205. Assessment: A 62-year-old female with: 1.Unstable angina. Cardiac catheterization done today shows normal coronaries. 2.Moderate mitral stenosis, no surgical intervention required at this time. 3.Chronic obstructive pulmonary disease with acute exacerbation. We will continue albuterol, supple mental oxygen as needed. 4.Atrial fibrillation, chronic, rate controlled. We will restart heparin today and resume Coumadin. The patient will need to be on heparin until INR is above 2. 5.Essential hypertension, stable. 6.Obesity, BMI of 30. 7.Rheumatoid arthritis. 8.Acute congestive heart failure, systolic dysfunction, ejection fraction 47%. Continue congestive heart failure guidelines. 9.Gastrointestinal and deep venous thromboses prophylaxis with PPI. We will resume heparin today. 10.Abdominal pain, unclear etiology. We will obtain abdominal x-ray. No nausea or vomiting. Plan: Resume anticoagulation, likely discharge in next 24-48 hours once INR above 2. SA/MODL Voice ID: [id number] Report ID: [id number]
[2017-06-28] MEDS ORDERED: HYDROCODONE/APAP 5/325 MG TAB PO PRN (16:27)
[2017-06-28] MEDS ORDERED: WARFARIN SODIUM 7.5 MG TAB PO SCH (17:00)
[2017-06-28] MEDS ORDERED: WARFARIN SODIUM 3 MG TAB PO SCH (17:00)
[2017-06-28] MEDS ORDERED: WARFARIN SODIUM 2.5 MG TAB ONE (17:06)
[2017-06-28] MEDS: ATORVASTATIN 80 MG TAB PO SCH (20:53)
--- NOTE | 2017-06-29 02:39 | OP ---
Date of Procedure: 06/28/2017 Surgeon: Dilip Ash MD Procedures: Left heart catheterization, right heart catheterization, cardiac output measurement, O2 saturation measurements. Indications: Atrial fibrillation, unstable angina, and mitral stenosis. The patient had been in the hospital, being weaned off her Coumadin, so the procedure can be done. S he had come in with chest pain. She has known mitral stenosis, rapid atrial fibrillation, elevated t roponin. Procedure In Detail: She was brought to the geochemical laboratory technician as an inpatient, prepped and draped in the rout ine sterile fashion, given 4 mg of sedation with Versed and 25 mg of fentanyl. A 6-Gibraltarian sheath was introduced in the right common femoral artery. A 7-Gibraltarian sheath was introduced in the right common femoral vein. Right heart catheterization using [place]-Angelina catheter was performed through the venous access. Right atrial pressure was elevated with a mean of 14. Her PA pressure and RV pressure syst olic were in the 40s with slightly elevated PA diastolic pressure and wedge pressure. O2 saturations were within normal limits. Cardiac output was about 4.5 L/minute. There was no evidence of any jaime nt. The left heart catheterization was done, selective coronary arteries with the Tobin catheter s how normal right coronary, normal left main, LAD and circumflex. Left ventriculogram was done. She had a normal ejection fraction of anything hyperdynamic. There was a small gradient between the left ventricular end-diastolic pressure and the PA diastolic by simultaneous measurement of both pressure s. Numbers were pending, but it appear to be consistent with moderate mitral stenosis. Complications: None. Estimated Blood Loss: 10 cc. Total conscious sedation was 1 hour. Operators: Dilip Ash M.D. and Natanael Bejarano. Plan: Plan is to continue medical therapy. We will keep her on heparin, restart Coumadin until her INR is adequate before we send her home. We will continue her Betapace. We may have to go up on the dose or maybe consult EP Services and possibly go to amiodarone, but we will make that decision late r. Final Diagnoses: Moderate mitral stenosis, atrial fibrillation, normal coronaries. SHARON/AFSANEHL Voice ID: [id number] Report ID: [id number]
[2017-06-29] MEDS: SOTALOL HCL 80 MG TAB PO SCH (05:27)
[2017-06-29 06:00] LABS: Protime INR 1.11
[2017-06-29] MEDS ORDERED: HEPARIN 5000 UNIT/ML 1 ML VIAL IV ONE (07:00)
[2017-06-29] MEDS: SERTRALINE HCL 50 MG TAB PO SCH (08:40)
[2017-06-29] MEDS: ASPIRIN EC 81 MG TAB PO SCH (08:40)
[2017-06-29] MEDS: RANITIDINE 150 MG TABLET PO SCH (08:40)
[2017-06-29] MEDS: DIGOXIN 0.125 MG TABLET PO SCH (08:40)
[2017-06-29] MEDS: FUROSEMIDE 20 MG TABLET PO SCH (08:40)
[2017-06-29] MEDS ORDERED: BUPROPION HCL XL 150 MG TAB PO SCH (09:00)
[2017-06-29 11:36] VITALS: BP 122/79; TEMP 97.6
[2017-06-29 12:23] VITALS: O2SAT 97
--- NOTE | 2017-06-30 01:52 | DS ---
Date of Discharge: 06/29/2017 Consultants: Dr. Guzman and Dr. Ash with Cardiology. Procedures: On 06/28/2017, cardiac catheterization, left and right. No stent placement. Admitting Diagnoses: 1.Unstable angina. 2.Obesity, body mass index of 30. 3.Moderate mitral stenosis. 4.Chronic obstructive pulmonary disease with acute exacerbation. 5.Atrial fibrillation, chronic. 6.Hypertension, essential. Discharge Diagnoses: 1.Unstable angina. Cardiac catheterization shows normal coronaries. 2.Moderate mitral stenosis. No surgical intervention required. 3.Chronic obstructive pulmonary disease with acute exacerbation, resolved. 4.Chronic atrial fibrillation, rate controlled. Continue Lovenox and resume Coumadin. Lovenox will be continued until INR is above 2. 5.Essential hypertension, stable. 6.Obesity, body mass index of 30. 7.Rheumatoid arthritis. 8.Acute systolic congestive heart failure, ejection fraction 47%, improved. 9.Abdominal pain, resolved. Hospital Course: The patient is a 62-year-old female, who was admitted to the hospital with chest pa in. The patient has multiple comorbid conditions including COPD, rheumatoid arthritis, mitral stenos is, hypertension, atrial fibrillation, on Coumadin. The patient was started on chest pain guidelines . Her cardiac enzymes were negative. ACS was ruled out. The patient was seen by Cardiology, who re commended cardiac catheterization. The patient was taken for a left and right heart cath as mentione d above. Normal coronaries were seen. Her mitral stenosis does not require any intervention at this time. The patient's anticoagulation was resumed and heparin was started and then the patient is to continue Lovenox shots at home mg/kg b.i.d. and to resume her Coumadin dose. The patient will have h er INR checked on Sunday at Dr. Ash's office. The patient was given shots previously and was in structed in how to do so. The patient regularly gives herself shots for her immune suppressants as w melissa. The patient's COPD remained stable. She was given albuterol. She did not have any hypoxia, 97 % on room air. She did have some mild abdominal pain. X-ray was done, which do not show any small b owel obstruction. The patient was then cleared for discharge by Cardiology. Discharge Instructions: Follow up with PCP in 2 to 3 days. Follow up with online publisher, Dr. Ash , on Sunday next week. INR on Sunday at the online publisher's office. Return to ER for worsening c ondition. Diet: Heart healthy. Activity: As tolerated. Medications: As per medication reconciliation list. Total time spent discharging the patient was 39 minutes. Physical Examination: General: Awake, alert, oriented, in no acute distress. CV: S1, S2. Irregularly irregular. Peripheral pulses present bilaterally. Respiratory: Moving air well bilaterally. No wheezing. Abdomen: Soft, nontender, nondistended. Positive bowel sounds. Extremities: No clubbing, cyanosis, or edema. Neuro: Nonfocal. SA/MODL Voice ID: [id number] Report ID: [id number]
--- NOTE | 2017-06-30 07:10 | PN ---
Date of Progress Note: 06/29/2017 Mrs. Lorenzo is status post heart catheterization on 06/28/2017 for atrial fibrillation, unstable ang jodi, mitral stenosis. Catheterization showed normal coronary artery, right heart catheterization, ec hocardiogram consistent with moderate mitral stenosis. Continues to be in atrial fibrillation with a rate control. We will continue her sotalol for now. She can go home on Lovenox and Coumadin. She will see me next week. She will have an INR and a PT drawn in 4 days on both Lovenox and Coumadin. She will continue the same dose of Coumadin that she was taking earlier. We will make a decision lat er regarding possible ablation for atrial fibrillation. The patient is not too enthusiastic about tr evgeny amiodarone. She can go home today. SHARON/RINA Voice ID: [id number] Report ID: [id number]
== END 2017-06-29 15:41 | disposition home or self-care (01) | DRG 286 ==
LOC: ER 23:04 → ERHOLD 06-25 00:40 → 4TH 06-25 01:08 → OBSVTOIN 06-27 11:49
PROVIDERS: ADMIT Internal Medicine; ATTEND Internal Medicine
PROC: 4A023N8 Measurement of Cardiac Sampling and Pressure, Bilateral, Percutaneous Approach (ICD-10-PCS; principal; 2017-06-28)
PROC: B201YZZ Plain Radiography of Multiple Coronary Arteries using Other Contrast (ICD-10-PCS; 2017-06-28)
PROC: B206YZZ Plain Radiography of Right and Left Heart using Other Contrast (ICD-10-PCS; 2017-06-28)
PROC: B30SYZZ Plain Radiography of Right Pulmonary Artery using Other Contrast (ICD-10-PCS; 2017-06-28)
DX: I20.0 Unstable angina (principal); I50.21 Acute systolic (congestive) heart failure; J44.1 Chronic obstructive pulmonary disease with (acute) exacerbation; I11.0 Hypertensive heart disease with heart failure; E66.9 Obesity, unspecified; Z68.30 Body mass index [BMI] 30.0-30.9, adult; I05.0 Rheumatic mitral stenosis; M06.9 Rheumatoid arthritis, unspecified; R10.9 Unspecified abdominal pain; I48.2 Chronic atrial fibrillation; Z79.01 Long term (current) use of anticoagulants
CPT/HCPCS: 36415; 71045; 74018; 80048; 80053; 80076; 82274; 82550; 82553; 83735; 83880; 84484; 85025; 85347; 85610; 85730; 93005; 93460; 96374; 96375; 99285; C1760; C1893; G0378; J0583; J1644; J2250; J2405; J2930; J3010; J3430

== ENCOUNTER 2017-11-17 07:58 | Emergency (ER) | payer OTHER ==
[2017-11-17] MEDS ORDERED: MORPHINE 4 MG/ML SYR ONE (08:21)
[2017-11-17] MEDS ORDERED: NA CHLORIDE 0.9% 100 ML IV ONE (08:22)
[2017-11-17 08:33] LABS: Absolute Lymphocytes (CBC) 1.6 K/uL (0.7-4.9); Absolute Monocytes 1.3 K/uL (0.1-1.3); Basophils % 0.6 % (0-1.3); Hematocrit 42.1 % (36.0-45.0); Lymphocytes % 15.2 % (15.3-44.8); MCH 29.3 pg (27.0-35.0); MCV 86.9 fL (80-100); MPV 8.9 fL (7.6-11.3); Monocytes % 12.9 % (3.3-12.3); RBC Red Blood Cell Count 4.85 M/uL (3.86-4.86)
[2017-11-17 08:57] LABS: Albumin 4.2 g/dL (3.4-5.0); Bilirubin Direct 0.3 mg/dL (0-0.2); Bilirubin Total 0.9 mg/dL (0.2-1.0); Potassium 3.6 mmol/L (3.5-5.1); Protein, Total 8.3 g/dL (6.4-8.2)
--- NOTE | 2017-11-17 08:58 | RAD REPORT ---
EXAM DESCRIPTION: CT - Stone Protocol - 11/17/2017 8:44 am CLINICAL HISTORY: Abdominal pain. Left-sided pain COMPARISON: None. TECHNIQUE: Computed axial tomography of the abdomen pelvis was obtained without oral or IV contrast. Lack of IV and oral contrast limits evaluation of solid organs, bowel, and vessels. Coronal reformat diana images were obtained and reviewed. All CT scans are performed using dose optimization technique as appropriate and may include automated exposure control or mA/KV adjustment according to patient size. FINDINGS: A renal calculus is not seen. An ureteral calculus is not noted. A bladder calculus is not present. The liver, spleen, pancreas and adrenals appear grossly normal. A pseudocyst is not noted There is no evidence of diverticulitis. 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 A small hiatal hernia is present. There probably is a tiny gallstone. The gallbladder wall is not thickened IMPRESSION: Negative for a genitourinary calculus
[2017-11-17] MEDS ORDERED: NA CHLORIDE 0.9% 1,000 ML ONE (09:19)
--- NOTE | 2017-11-17 09:37 | EDPHYS ---
Physician Documentation [facility] Name: Celsa Lorenzo Age: 62 yrs Sex: Female : 1955 Arrival Date: 11/17/2017 Time: 08:00 Bed 6 Private MD: ED Physician Missael Jose HPI: 11/17 09:29 This 62 yrs old Female presents to ER via Ambulatory with complaints of gs Abdominal Pain, Back Pain. 09:29 The patient presents with pain that is acute. gs 09:30 The patient presents with abdominal pain. Onset: The symptoms/episode began/occurred 5 gs day(s) ago. Associated signs and symptoms: Pertinent positives: nausea and vomiting, Pertinent negatives: blood in stools, dysuria, fever. The symptoms are described as crampy, sharp. Modifying factors: The symptoms are alleviated by nothing, the symptoms are aggravated by nothing. Severity of pain: At its worst the pain was moderate in the emergency department the pain is unchanged. The patient has experienced similar episodes in the past, a few times. The patient has been recently seen by a physician: ed. Historical: - Allergies: 08:05 Iodine; Topical only; aa5 - Home Meds: 08:38 Coumadin 10 mg Oral tab [Active]; digoxin 125 mcg Oral tab 1 tab once daily [Active]; jb4 Lasix 20 mg Oral tab 1 tab once daily [Active]; sotalol 120 mg Oral tab 1 tab 2 times per day [Active]; Zoloft 50 mg Oral tab 1 tab once daily [Active]; Xeljanz Oral [Active]; Wellbutrin 150mg Oral 1 tab daily [Active]; folic acid 1 mg Oral tab 1 tab once daily [Active]; KCL 20 mEq daily [Active]; meloxicam 15 mg oral tab 1 tab once daily [Active]; omeprazole 20 mg Oral TbEC [Active]; prednisone 5 mg Oral tab once daily [Active]; Carafate 1 gram Oral tab 1 tab 4 times per day [Active]; trazodone 50 mg Oral tab 1 tab at bedtime [Active]; - PMHx: 08:05 Atrial Fib; cardioversion; CHF; COPD; Hypertension; mitral valve stenosis; pulmonary aa5 HTN; resp failure; Rheumatoid Arthritis; - PSHx: 08:05 c section; aa5 - Immunization history:: Pneumococcal vaccine is not up to date, Flu vaccine is not up to date. - Social history:: Smoking status: Patient/guardian denies using tobacco. - Ebola Screening: : No symptoms or risks identified at this time. ROS: 09:30 All other systems are negative. gs Exam: 09:30 Head/Face: Normocephalic, atraumatic. Eyes: Pupils equal round and reactive to light, gs extra-ocular motions intact. Lids and lashes normal. Conjunctiva and sclera are non-icteric and not injected. Cornea within normal limits. Periorbital areas with no swelling, redness, or edema. ENT: Nares patent. No nasal discharge, no septal abnormalities noted. Tympanic membranes are normal and external auditory canals are clear. Oropharynx with no redness, swelling, or masses, exudates, or evidence of obstruction, uvula midline. Mucous membranes moist. Neck: Trachea midline, no thyromegaly or masses palpated, and no cervical lymphadenopathy. Supple, full range of motion without nuchal rigidity, or vertebral point tenderness. No Meningismus. Chest/axilla: Normal chest wall appearance and motion. Nontender with no deformity. No lesions are appreciated. Cardiovascular: Regular rate and rhythm with a normal S1 and S2. No gallops, murmurs, or rubs. Normal PMI, no JVD. No pulse deficits. Respiratory: Lungs have equal breath sounds bilaterally, clear to auscultation and percussion. No rales, rhonchi or wheezes noted. No increased work of breathing, no retractions or nasal flaring. Back: No spinal tenderness. No costovertebral tenderness. Full range of motion. Skin: Warm, dry with normal turgor. Normal color with no rashes, no lesions, and no evidence of cellulitis. MS/ Extremity: Pulses equal, no cyanosis. Neurovascular intact. Full, normal range of motion. Neuro: Awake and alert, GCS 15, oriented to person, place, time, and situation. Cranial nerves II-XII grossly intact. Motor strength 5/5 in all extremities. Sensory grossly intact. Cerebellar exam normal. Normal gait. 09:30 Constitutional: The patient appears alert, awake, uncomfortable. 09:30 Abdomen/GI: Palpation: moderate abdominal tenderness, in the left upper quadrant, rebound tenderness, is not appreciated. Vital Signs: 08:05 Weight 90.72 kg (R); Height 5 ft. 11 in. (180.34 cm) (R); Pain 9/10; aa5 08:20 BP 112 / 82; Pulse 124; Resp 20; Temp 98.8(TE); Pulse Ox 100% on R/A; Pain 9/10; jb4 08:47 BP 138 / 100; Pulse 64; Resp 18; Pulse Ox 99% on R/A; jb4 09:51 BP 140 / 98; Pulse 65; Resp 18; Pulse Ox 100% on R/A; hj 08:05 Body Mass Index 27.89 (90.72 kg, 180.34 cm) aa5 MDM: 08:12 Patient medically screened. 09:30 Differential diagnosis: bowel obstruction, non-specific abd pain, pancreatitis, Peptic gs Ulcer Disease. Data reviewed: vital signs, nurses notes. Response to treatment: the patient's symptoms have markedly improved after treatment, and as a result, I will discharge patient. 11/17 08:13 Order name: Basic Metabolic Panel; Complete Time: 09:08 11/17 08:13 Order name: CBC with Diff; Complete Time: 09:08 11/17 08:13 Order name: Hepatic Function; Complete Time: 09:08 11/17 08:13 Order name: Lipase; Complete Time: 09:08 11/17 08:13 Order name: Urine Microscopic Only 11/17 10:11 Order name: Urine Dipstick--Ancillary (enter results) 11/17 08:13 Order name: IV Saline Lock; Complete Time: 08:22 11/17 08:13 Order name: Labs collected and sent; Complete Time: 08:22 11/17 08:13 Order name: Urine Dipstick-Ancillary (obtain specimen); Complete Time: 10:04 11/17 08:13 Order name: CT Stone Protocol; Complete Time: 09:08 Administered Medications: 08:20 Drug: morphine 4 mg Route: IVP; Site: right forearm; hj 08:22 Follow up: Response: No adverse reaction 09:34 Follow up: Response: No adverse reaction [facility] 09:11 Drug: NS 0.9% 1000 ml Route: IV; Rate: 1 bolus; Site: right forearm; hj Disposition: 11/17/17 09:36 Discharged to Home. Impression: Abdominal and pelvic pain. - Condition is Stable. - Discharge Instructions: Abdominal Pain, Adult, [id number]. - Medication Reconciliation Form, Thank You Letter, Antibiotic Education, Prescription Opioid Use form. - Follow up: Suresh Duran MD; When: 2 - 3 days; Reason: Re-evaluation by your physician. - Notes: take meds as prescribed Signatures: Dispatcher [employer] [facility] Columba Moncada RN RN aa5 Dar Rapp RN RN Simone Jacob RN RN jb4 Missael Jose MD MD gs Corrections: (The following items were deleted from the chart) 10:15 09:36 11/17/2017 09:36 Discharged to Home. Impression: Abdominal and pelvic pain. jb4 Condition is Stable. Forms are Medication Reconciliation Form, Thank You Letter, Antibiotic Education, Prescription Opioid Use. Follow up: Suresh Duran; When: 2 - 3 days; Reason: Re-evaluation by your physician. gs
--- NOTE | 2017-11-17 09:37 | ER ---
Nurse's Notes [facility] Name: Celsa Lorenzo Age: 62 yrs Sex: Female : 1955 Arrival Date: 11/17/2017 Time: 08:00 Bed 6 Private MD: Diagnosis: Abdominal and pelvic pain Presentation: 11/17 08:02 Presenting complaint: Patient states: LUQ pain radiating to left middle back. Pt states aa5 "I was seen at [place] [facility] November 11 and they wanted me to follow-up with a GI doctor but none of them can see me until like a month from now and the pain got worse last night". Pt reports nausea and vomiting today, denies diarrhea. 08:02 Transition of care: patient was not received from another setting of care. Onset of aa5 symptoms was October 2017. Risk Assessment: Do you want to hurt yourself or someone else? Patient reports no desire to harm self or others. Initial Sepsis Screen: Does the patient meet any 2 criteria? No. Patient's initial sepsis screen is negative. Does the patient have a suspected source of infection? No. Patient's initial sepsis screen is negative. Care prior to arrival: None. 08:02 Method Of Arrival: Ambulatory aa5 08:02 Acuity: MAXIMO 3 aa5 Historical: - Allergies: 08:05 Iodine; Topical only; aa5 - Home Meds: 08:38 Coumadin 10 mg Oral tab [Active]; digoxin 125 mcg Oral tab 1 tab once daily [Active]; jb4 Lasix 20 mg Oral tab 1 tab once daily [Active]; sotalol 120 mg Oral tab 1 tab 2 times per day [Active]; Zoloft 50 mg Oral tab 1 tab once daily [Active]; Xeljanz Oral [Active]; Wellbutrin 150mg Oral 1 tab daily [Active]; folic acid 1 mg Oral tab 1 tab once daily [Active]; KCL 20 mEq daily [Active]; meloxicam 15 mg oral tab 1 tab once daily [Active]; omeprazole 20 mg Oral TbEC [Active]; prednisone 5 mg Oral tab once daily [Active]; Carafate 1 gram Oral tab 1 tab 4 times per day [Active]; trazodone 50 mg Oral tab 1 tab at bedtime [Active]; - PMHx: 08:05 Atrial Fib; cardioversion; CHF; COPD; Hypertension; mitral valve stenosis; pulmonary aa5 HTN; resp failure; Rheumatoid Arthritis; - PSHx: 08:05 c section; aa5 - Immunization history:: Pneumococcal vaccine is not up to date, Flu vaccine is not up to date. - Social history:: Smoking status: Patient/guardian denies using tobacco. - Ebola Screening: : No symptoms or risks identified at this time. Screenin:20 Abuse screen: Denies threats or abuse. Nutritional screening: No deficits noted. jb4 Tuberculosis screening: No symptoms or risk factors identified. Fall Risk IV access (20 points). Total Callejas Fall Scale indicates No Risk (0-24 pts). Assessment: 08:23 General: Appears in no apparent distress. uncomfortable, Behavior is calm, cooperative, jb4 appropriate for age. Pain: Complains of pain in abdomen Pain radiates to mid back area Pain currently is 9 out of 10 on a pain scale. at worst was 10 out of 10 on a pain scale. Quality of pain is described as aching, stabbing, Pain began 2-3 days ago. Is continuous. Neuro: Level of Consciousness is awake, alert, obeys commands, Oriented to person, place, time, situation. Cardiovascular: Heart tones S1 S2 present Patient's skin is warm and dry. Respiratory: Airway is patent Respiratory effort is even, unlabored, Respiratory pattern is regular, symmetrical, Breath sounds are clear bilaterally. GI: Abdomen is flat, Bowel sounds present X 4 quads. Abd is soft and non tender X 4 quads. : No signs and/or symptoms were reported regarding the genitourinary system. EENT: No signs and/or symptoms were reported regarding the EENT system. Derm: Skin is intact, Skin is pink, warm \\T\\ dry. Musculoskeletal: No signs and/or symptoms reported regarding the musculoskeletal system. 09:51 Reassessment: Patient and/or family updated on plan of care and expected duration. Pain hj level reassessed. Patient is alert, oriented x 3, equal unlabored respirations, skin warm/dry/pink. at the bathroom for urine specimen; Patient states feeling better. Vital Signs: 08:05 Weight 90.72 kg (R); Height 5 ft. 11 in. (180.34 cm) (R); Pain 9/10; aa5 08:20 BP 112 / 82; Pulse 124; Resp 20; Temp 98.8(TE); Pulse Ox 100% on R/A; Pain 9/10; jb4 08:47 BP 138 / 100; Pulse 64; Resp 18; Pulse Ox 99% on R/A; jb4 09:51 BP 140 / 98; Pulse 65; Resp 18; Pulse Ox 100% on R/A; hj 08:05 Body Mass Index 27.89 (90.72 kg, 180.34 cm) aa5 ED Course: 08:00 Patient arrived in ED. rg4 08:02 Arm band placed on Patient placed in an exam room, on a stretcher. aa5 08:05 Missael Jose MD is Attending Physician. gs 08:11 Triage completed. aa5 08:11 Simone Jacob, RN is Primary Nurse. jb4 08:20 Patient has correct armband on for positive identification. Bed in low position. Call jb4 light in reach. Side rails up X 1. Pulse ox on. NIBP on. 08:33 CT completed. Patient moved to CT via stretcher. Patient moved back from CT. cw1 08:44 CT Stone Protocol In Process Unspecified. EDMS 09:33 Suresh Duran MD is Referral Physician. gs 10:15 No provider procedures requiring assistance completed. IV discontinued, intact, jb4 bleeding controlled. Administered Medications: 08:20 Drug: morphine 4 mg Route: IVP; Site: right forearm; hj 08:22 Follow up: Response: No adverse reaction hj 09:34 Follow up: Response: No adverse reaction jb4 09:11 Drug: NS 0.9% 1000 ml Route: IV; Rate: 1 bolus; Site: right forearm; hj Outcome: 09:36 Discharge ordered by . gs 10:15 Discharged to home ambulatory. jb4 10:15 Condition: stable 10:15 Discharge instructions given to patient, Instructed on discharge instructions, follow up and referral plans. Demonstrated understanding of instructions, follow-up care. 10:15 Patient left the ED. jb4 Signatures: Dispatcher [employer] EDMS Columba Moncada, RN RN aa5 Ciara Gallagher cw1 Dar Rapp RN RN hj Garcia, Rubi rg4 Simone Jacob RN RN jb4 Missael Jose MD MD
[2017-11-17 10:13] LABS: Urine Blood 1+ (NEG); Urine Glucose NEGATIVE (NEG); Urine Protein NEGATIVE (NEG)
[2017-11-17 10:17] LABS: Urine Bacteria <20 /HPF (<20); Urine Culture Reflex Order REFLEXED; Urine RBC <5 /HPF (NONE SEEN)
[2017-11-17 10:23] VITALS: TEMP 98.8
[2017-11-17 10:25] VITALS: BP 140/98; O2SAT 100
== END 2017-11-17 10:15 | disposition home or self-care (01) ==
LOC: ER 07:58
DX: R10.9 Unspecified abdominal pain (principal); R10.2 Pelvic and perineal pain; Z91.048 Other nonmedicinal substance allergy status; I11.0 Hypertensive heart disease with heart failure; I50.9 Heart failure, unspecified; I48.91 Unspecified atrial fibrillation; Z79.01 Long term (current) use of anticoagulants; J44.9 Chronic obstructive pulmonary disease, unspecified; I27.20 Pulmonary hypertension, unspecified
CPT/HCPCS: 36415; 74176; 76377; 80048; 80076; 81003; 81015; 83690; 85025; 87086; 87088; 96374; 99284; J7030

== ENCOUNTER 2018-06-17 21:27 | Emergency (ER) | payer OTHER ==
--- OUTSIDE RECORDS SUMMARY | 2018-06-17 21:29 | XMS REPORT ---
:1955 Author Organization [facility] Address [address] [place] [address] Dr. Neumann [address] [place] [id number] Care Team Providers Name Role Phone Unavailable Unavailable Unavailable Problems This patient has no known problems. Allergies, Adverse Reactions, Alerts This patient has no known allergies or adverse reactions. Medications This patient has no known medications.
--- NOTE | 2018-06-17 22:18 | EDPHYS ---
Physician Documentation [facility] Name: Celsa Lorenzo Age: 63 yrs Sex: Female : 1955 Arrival Date: 06/17/2018 Time: 21:46 Bed 5 Private MD: ED Physician Missael Jose HPI: 06/17 22:12 This 63 yrs old Female presents to ER via Ambulatory with complaints of gs Abrasion(s). 22:12 The complaints affect the palmar aspect of right forearm. Onset: The symptoms/episode gs began/occurred 1 week(s) ago. Associated signs and symptoms: Pertinent positives: erythema, Pertinent negatives: fever, numbness, pain. Severity of symptoms: At their worst the symptoms were moderate, in the emergency department the symptoms are unchanged. The patient has not experienced similar symptoms in the past. Historical: - Allergies: 21:49 Iodine; Topical only; ak1 - Home Meds: 21:49 Eliquis 5 mg oral tab 1 tab 2 times per day [Active]; digoxin 125 mcg Oral tab 1 tab ak1 once daily [Active]; KCL 20 mEq daily [Active]; Lasix 40 mg oral tab 20mg at night [Active]; prednisone 2.5 mg oral tab [Active]; Wellbutrin 150mg Oral 1 tab daily [Active]; Zoloft 50 mg Oral tab 1 tab once daily [Active]; sotalol 120 mg Oral tab 1 tab 2 times per day [Active]; meloxicam 15 mg Oral tab 1 tab once daily [Active]; Xeljanz Oral [Active]; - PMHx: 21:49 Atrial Fib; cardioversion; CHF; COPD; Hypertension; mitral valve stenosis; pulmonary ak1 HTN; resp failure; Rheumatoid Arthritis; - PSHx: 21:49 c section; Tonsillectomy; Tubal ligation; ak1 - Immunization history:: Adult Immunizations not up to date, Last tetanus immunization: unknown. - Social history:: Smoking status: Patient/guardian denies using tobacco. - Ebola Screening: : No symptoms or risks identified at this time. ROS: 22:12 All other systems are negative. gs Exam: 22:12 Constitutional: The patient appears alert, awake. gs 22:12 Musculoskeletal/extremity: ROM: no acute changes, Pulses: are normal with no appreciated deficits. 22:12 Skin: cellulitis, that is mild, on the palmar aspect of right forearm, injury, abrasion(s). Vital Signs: 21:49 BP 127 / 83; Pulse 65; Resp 18; Temp 97.8(TE); Pulse Ox 96% on R/A; Weight 90.72 kg ak1 (R); Height 5 ft. 11 in. (180.34 cm) (R); Pain 0/10; 21:49 Body Mass Index 27.89 (90.72 kg, 180.34 cm) ak1 MDM: 22:11 Patient medically screened. 22:12 Differential diagnosis: abrasion, cellulitis. Data reviewed: vital signs, nurses notes. Response to treatment: the patient's symptoms have mildly improved after treatment, and as a result, I will discharge patient. Administered Medications: 22:15 Drug: KeFLEX 1000 mg Route: PO; cc3 22:30 Follow up: Response: No adverse reaction cc3 22:20 Drug: Tetanus-Diphtheria Toxoid Adult 0.5 ml {Vaccine Manager: [employer]. Exp: cc3 05/16/2020. Lot #: [id number]. } Route: IM; Site: right deltoid; 22:30 Follow up: Response: No adverse reaction cc3 Disposition: 06/17/18 22:17 Discharged to Home. Impression: Abrasion of right upper arm. - Condition is Stable. - Discharge Instructions: Cellulitis, Adult, Lwom-am-Uuli, Abrasion, [id number]-vu-Evao. - Prescriptions for Bactroban 2 % Topical Ointment - Apply to affected area 1 application by TOPICAL route every 12 hours; 30 gram. Keflex 500 mg Oral Capsule - take 1 capsule by ORAL route every 8 hours for 7 days; 21 capsule. - Medication Reconciliation Form, Thank You Letter, Antibiotic Education, Prescription Opioid Use form. - Follow up: Private Physician; When: 2 - 3 days; Reason: Re-evaluation by your physician. Signatures: Stephanie Melvin RN RN ak1 Missael Jose MD MD Regi Solorzano cc3 Corrections: (The following items were deleted from the chart) 22:32 22:17 06/17/2018 22:17 Discharged to Home. Impression: Abrasion of right upper arm. cc3 Condition is Stable. Forms are Medication Reconciliation Form, Thank You Letter, Antibiotic Education, Prescription Opioid Use. Follow up: Private Physician; When: 2 - 3 days; Reason: Re-evaluation by your physician. gs
--- NOTE | 2018-06-17 22:18 | ER ---
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 pt with ak1 healing wound to right forearm. pt stated she is worried wound is infected. pt concerned about tetanus. Transition of care: patient was not received from another setting of care. Onset of symptoms is unknown. Risk Assessment: Do you want to hurt yourself or someone else? Patient reports no desire to harm self or others. Initial Sepsis Screen: Does the patient meet any 2 criteria? No. Patient's initial sepsis screen is negative. Does the patient have a suspected source of infection? No. Patient's initial sepsis screen is negative. Care prior to arrival: None. 21:50 Method Of Arrival: Ambulatory ak1 21:50 Acuity: MAXIMO 4 ak1 Triage Assessment: 21:49 General: Appears in no apparent distress. Behavior is calm, cooperative. Pain: Denies ak1 pain. Historical: - Allergies: 21:49 Iodine; Topical only; ak1 - Home Meds: 21:49 Eliquis 5 mg oral tab 1 tab 2 times per day [Active]; digoxin 125 mcg Oral tab 1 tab ak1 once daily [Active]; KCL 20 mEq daily [Active]; Lasix 40 mg oral tab 20mg at night [Active]; prednisone 2.5 mg oral tab [Active]; Wellbutrin 150mg Oral 1 tab daily [Active]; Zoloft 50 mg Oral tab 1 tab once daily [Active]; sotalol 120 mg Oral tab 1 tab 2 times per day [Active]; meloxicam 15 mg Oral tab 1 tab once daily [Active]; Xeljanz Oral [Active]; - PMHx: 21:49 Atrial Fib; cardioversion; CHF; COPD; Hypertension; mitral valve stenosis; pulmonary ak1 HTN; resp failure; Rheumatoid Arthritis; - PSHx: 21:49 c section; Tonsillectomy; Tubal ligation; ak1 - Immunization history:: Adult Immunizations not up to date, Last tetanus immunization: unknown. - Social history:: Smoking status: Patient/guardian denies using tobacco. - Ebola Screening: : No symptoms or risks identified at this time. Screenin:51 Abuse screen: Denies threats or abuse. Denies injuries from another. Nutritional ak1 screening: No deficits noted. Tuberculosis screening: No symptoms or risk factors identified. Fall Risk None identified. Assessment: 22:02 General: Appears in no apparent distress. Behavior is appropriate for age. Pain: lp1 Complains of pain in palmar aspect of right forearm Pain currently is 6 out of 10 on a pain scale. Neuro: No deficits noted. Cardiovascular: No deficits noted. Respiratory: No deficits noted. GI: No deficits noted. : No deficits noted. EENT: No deficits noted. Derm: Wound noted Other: abrasion with scabs noted to right forearm, some redness around site; Patient states tender to touch. Musculoskeletal: No deficits noted. 22:30 Reassessment: Patient appears in no apparent distress at this time. Patient and/or cc3 family updated on plan of care and expected duration. Pain level reassessed. Patient is alert, oriented x 3, equal unlabored respirations, skin warm/dry/pink. Dr. Jose discharged the patient home with prescription given. No IV cannula in situ. Patient left ER vitally stable and ambulatory. Vital Signs: 21:49 BP 127 / 83; Pulse 65; Resp 18; Temp 97.8(TE); Pulse Ox 96% on R/A; Weight 90.72 kg ak1 (R); Height 5 ft. 11 in. (180.34 cm) (R); Pain 0/10; 21:49 Body Mass Index 27.89 (90.72 kg, 180.34 cm) ak1 ED Course: 21:46 Patient arrived in ED. ak1 21:49 Arm band placed on Patient placed in waiting room, Patient notified of wait time. ak1 21:51 Triage completed. ak1 21:51 Missael Jose MD is Attending Physician. gs 21:54 Regi Solorzano is Primary Nurse. cc3 21:54 Patient has correct armband on for positive identification. Bed in low position. Call cc3 light in reach. Side rails up X 1. Pulse ox on. NIBP on. 22:03 Pebbles Bauer, EDWINA is Primary Nurse. lp1 22:30 No provider procedures requiring assistance completed. Patient did not have IV access cc3 during this emergency room visit. Administered Medications: 22:15 Drug: KeFLEX 1000 mg Route: PO; cc3 22:30 Follow up: Response: No adverse reaction cc3 22:20 Drug: Tetanus-Diphtheria Toxoid Adult 0.5 ml {Medical Technologist Clinical: [employer]. Exp: cc3 05/16/2020. Lot #: [id number]. } Route: IM; Site: right deltoid; 22:30 Follow up: Response: No adverse reaction cc3 Outcome: 22:17 Discharge ordered by . feli 22:30 Discharged to home ambulatory. cc3 22:30 Condition: stable 22:30 Discharge instructions given to patient, Instructed on discharge instructions, follow up and referral plans. medication usage, Demonstrated understanding of instructions, follow-up care, medications, Prescriptions given X 2. 22:32 Patient left the ED. cc3 Signatures: Pebbles Bauer RN RN lp1 Stephanie Melvin RN RN ak1 Missael Jose MD MD gs Cordel, Charlene cc3
[2018-06-17] MEDS ORDERED: TETANUS & DIPHTHERIA TOX,ADULT 0.5 ML VIAL ONE (22:30)
[2018-06-17] MEDS ORDERED: CEPHALEXIN 250 MG CAP ONE (22:30)
[2018-06-18 00:46] VITALS: BP 127/83; TEMP 97.8; O2SAT 96
== END 2018-06-17 22:32 | disposition home or self-care (01) ==
LOC: ER 21:27
DX: S40.811A Abrasion of right upper arm, initial encounter (principal); I10 Essential (primary) hypertension; I48.91 Unspecified atrial fibrillation; I50.9 Heart failure, unspecified; J44.9 Chronic obstructive pulmonary disease, unspecified; Z23 Encounter for immunization; Z79.01 Long term (current) use of anticoagulants; Z91.048 Other nonmedicinal substance allergy status
CPT/HCPCS: 90714; 99283

== ENCOUNTER 2018-07-29 08:03 | Observation (INO) | payer OTHER ==
--- OUTSIDE RECORDS SUMMARY | 2018-07-29 08:08 | XMS REPORT ---
:1955 [facility] Address [address] [place] [address] Dr. Neumann [address] [place] [id number] Care Team Providers Name Role Phone Unavailable Unavailable Unavailable Problems This patient has no known problems. Allergies, Adverse Reactions, Alerts This patient has no known allergies or adverse reactions. Medications This patient has no known medications.
[2018-07-29] MEDS ORDERED: METHYLPREDNISOLONE 125 MG INJ ONE (08:43)
[2018-07-29] MEDS ORDERED: LEVALBUTEROL 1.25 MG/3 ML NEB ONE (08:43)
[2018-07-29 09:09] LABS: Absolute Lymphocytes (CBC) 0.9 K/uL (0.7-4.9); Absolute Monocytes 0.5 K/uL (0.1-1.3); Absolute Neutrophil 7.1 K/uL (1.8-8.0); Basophils % 0.2 % (0-1.3); Eosinophils % 3.2 % (0-4.4); Hematocrit 36.5 % (36.0-45.0); Monocytes % 6.1 % (3.3-12.3); RBC Red Blood Cell Count 3.86 M/uL (3.86-4.86)
[2018-07-29 09:28] LABS: BUN Blood Urea Nitrogen 11 mg/dL (7-18); Bicarbonate 28 mmol/L (21-32); Glucose Level 159 mg/dL (74-106); NT PRO-BNP 3731 pg/mL (<125); Potassium 3.1 mmol/L (3.5-5.1); Sodium Level 140 mmol/L (136-145); Troponin (Emerg Dept Use Only) < 0.02 ng/mL (0.0-0.045)
--- NOTE | 2018-07-29 09:28 | RAD REPORT ---
EXAM DESCRIPTION: RAD - Chest Single View - 07/29/2018 9:14 am CLINICAL HISTORY: DYSPNEA Chest pain. COMPARISON: Chest Pa And Lat (2 Views) dated 02/20/2018; Abdomen 1 View (KUB) dated 06/28/2017; Chest Single View dated 06/25/2017; Chest Pa And Lat (2 Views) dated 04/24/2017 FINDINGS: Portable technique limits examination quality. Mild interstitial pulmonary edema with small bilateral pleural effusions. Prominent cardiomegaly note d. No displaced fractures. IMPRESSION: Mild CHF suspected.
[2018-07-29] MEDS ORDERED: FUROSEMIDE 40 MG/4 ML VIAL ONE (09:53)
--- NOTE | 2018-07-29 10:19 | EDPHYS ---
Physician Documentation [facility] Name: Celsa Lorenzo Age: 63 yrs Sex: Female : 1955 Arrival Date: 07/29/2018 Time: 08:04 Bed 17 Private MD: ED Physician Geovany Barksdale HPI: 07/29 08:51 This 63 yrs old Female presents to ER via Ambulatory with complaints of rn Breathing Difficulty. 08:51 The patient has shortness of breath at rest, with light activity. Onset: The rn symptoms/episode began/occurred 1 week(s) ago. Duration: The symptoms are continuous. The patient's shortness of breath is aggravated by exertion, light activity, supine position, talking, walking. Severity of symptoms: At their worst the symptoms were moderate in the emergency department the symptoms are unchanged. The patient has experienced similar episodes in the past. The patient has not recently seen a physician. Historical: - Allergies: 08:26 Iodine; Topical only; sv - PMHx: 08:26 Atrial Fib; cardioversion; CHF; COPD; Hypertension; mitral valve stenosis; pulmonary sv HTN; resp failure; Rheumatoid Arthritis; - Immunization history:: Adult Immunizations up to date. - Family history:: not pertinent. - Social history:: Smoking status: Patient/guardian denies using tobacco. - Ebola Screening: : No symptoms or risks identified at this time. - Hospitalizations: : No recent hospitalization is reported. ROS: 08:51 Constitutional: Negative for fever, chills, and weight loss, Eyes: Negative for injury, rn pain, redness, and discharge, Neck: Negative for injury, pain, and swelling, Cardiovascular: Negative for chest pain, palpitations, and edema, Respiratory: + sob, dry cough Abdomen/GI: Negative for abdominal pain, nausea, vomiting, diarrhea, and constipation, MS/Extremity: Negative for injury and deformity, Skin: Negative for injury, rash, and discoloration, Neuro: + generalized weakness Exam: 08:51 Constitutional: This is a well developed, well nourished patient who is awake, alert, rn mild tachypnea Head/Face: Normocephalic, atraumatic. Eyes: Pupils equal round and reactive to light, extra-ocular motions intact. Lids and lashes normal. Conjunctiva and sclera are non-icteric and not injected. Cornea within normal limits. Periorbital areas with no swelling, redness, or edema. ENT: dry MM Cardiovascular: Irregular rhythm, normal rate Respiratory: + mild tachypnea, no retractions, + diminished bilateral breath sounds Abdomen/GI: soft, non-tender MS/ Extremity: Pulses equal, no cyanosis. Neurovascular intact. Full, normal range of motion. Equal circumference. Neuro: Awake and alert, GCS 15, oriented to person, place, time, and situation. Cranial nerves II-XII grossly intact. Motor strength 5/5 in all extremities. Sensory grossly intact. 09:35 ECG was reviewed by the Attending Physician. rn Vital Signs: 08:26 BP 135 / 90; Pulse 92 MON; Resp 23; Temp 98.2; Pulse Ox 98% on 3 lpm NC; sv 09:49 BP 143 / 83; Pulse 78; Resp 16; Pulse Ox 99% on 3 lpm NC; sv 10:31 BP 137 / 83; Pulse 83; Resp 20; Pulse Ox 97% on 3 lpm NC; sv 12:36 BP 139 / 99; Pulse 82 MON; Resp 19; Pulse Ox 96% on 3 lpm NC; sv 08:26 A fib sv 12:36 A fib sv MDM: 08:17 Patient medically screened. rn 10:17 Differential diagnosis: CHF exacerbation, Myocardial Infarction Pneumothorax pulmonary rn edema. Data reviewed: vital signs, nurses notes, lab test result(s), EKG, radiologic studies, plain films, and as a result, I will admit patient. Counseling: I had a detailed discussion with the patient and/or guardian regarding: the historical points, exam findings, and any diagnostic results supporting the discharge/admit diagnosis, lab results, radiology results, the need for further work-up and treatment in the hospital. Response to treatment: the patient's symptoms have mildly improved after treatment, and as a result, I will admit patient. ED course: Will admit for CHF exacerbation, repeat ECHO, has seen Dr. Ash in past. . 07/29 08:23 Order name: Blood Culture Adult (2) rn 07/29 08:23 Order name: BMP; Complete Time: 09:32 rn 07/29 08:23 Order name: CBC with Diff; Complete Time: : rn 07/29 08:23 Order name: NT PRO-BNP; Complete Time: 09: rn 07/29 08:23 Order name: Troponin (emerg Dept Use Only); Complete Time: 09:32 rn 07/29 08:23 Order name: Procalcitonin; Complete Time: 09:57 rn 07/29 08:23 Order name: XRAY CXR (1 view); Complete Time: 09:32 rn 07/29 08:23 Order name: EKG; Complete Time: 08:24 rn 07/29 08:23 Order name: Cardiac monitoring; Complete Time: 08:28 rn 07/29 08:23 Order name: EKG - Nurse/Tech; Complete Time: 09:01 rn 07/29 12:03 Order name: Diet Heart Healthy; Complete Time: 12:04 sv 07/29 08:23 Order name: IV Saline Lock; Complete Time: 09: rn 07/29 08:23 Order name: Labs collected and sent; Complete Time: 09:01 rn 07/29 08:23 Order name: O2 Per Protocol; Complete Time: 08:28 rn 07/29 08:23 Order name: O2 Sat Monitoring; Complete Time: 08:28 rn EC:35 Rate is 79 beats/min. Rhythm is irregularly irregular. QRS Logan is Normal. QRS interval rn is normal. QT interval is normal. No Q waves. T waves are Normal. No ST changes noted. Clinical impression: Atrial Fibrillation. Interpreted by me. Administered Medications: 08:45 Drug: Xopenex (3) 1.25 mg Route: Inhalation; sv 09:00 Drug: SOLU-Medrol 125 mg Route: IVP; Site: right forearm; sv 09:39 Follow up: Response: No adverse reaction sv 10:25 Drug: Lasix 40 mg Route: IVP; Site: right forearm; sv 11:20 Follow up: Response: No adverse reaction sv Disposition: 07/29/18 10:18 Hospitalization ordered by Nawaf Harris for Observation. Preliminary diagnosis are Pulmonary edema, Unspecified combined systolic (congestive) and diastolic (congestive) heart failure, Dyspnea, unspecified. - Bed requested for Telemetry/MedSurg (observation). - Status is Observation. sv - Condition is Stable. - Problem is new. - Symptoms have improved. UTI on Admission? No Signatures: Dispatcher [employer] EDFlori Mckeon RN Sejal Vaz RN RN Geovany Morillo MD MD hospital internship: (The following items were deleted from the chart) 10:42 10:18 Hospitalization Ordered by Nawaf Harris DO for Inpatient Admission. Preliminary rn diagnosis is Pulmonary edema; Unspecified combined systolic (congestive) and diastolic (congestive) heart failure; Dyspnea, unspecified. Bed requested for Telemetry/MedSurg (Inpatient). Status is Inpatient Admission. Condition is Stable. Problem is new. Symptoms have improved. UTI on Admission? No. rn 12:09 10:42 07/29/2018 10:18 Hospitalization Ordered by Nawaf Harris DO for Observation. dw Preliminary diagnosis is Pulmonary edema; Unspecified combined systolic (congestive) and diastolic (congestive) heart failure; Dyspnea, unspecified. Bed requested for Telemetry/MedSurg (observation). Status is Observation. Condition is Stable. Problem is new. Symptoms have improved. UTI on Admission? No. rn 12:44 12:09 07/29/2018 10:18 Hospitalization Ordered by Nawaf Harris DO for Observation. sv Preliminary diagnosis is Pulmonary edema; Unspecified combined systolic (congestive) and diastolic (congestive) heart failure; Dyspnea, unspecified. Bed requested for Telemetry/MedSurg (observation). Status is Observation. Condition is Stable. Problem is new. Symptoms have improved. UTI on Admission? No. dw
--- NOTE | 2018-07-29 10:19 | ER ---
Nurse's Notes [facility] Name: Celsa Lorenzo Age: 63 yrs Sex: Female : 1955 Arrival Date: 07/29/2018 Time: 08:04 Bed 17 Private MD: Diagnosis: Pulmonary edema;Unspecified combined systolic (congestive) and diastolic (congestive) heart failure;Dyspnea, unspecified Presentation: 07/29 08:24 Presenting complaint: Patient states: increasing shortness of breath for about a week. sv hx of CHF. Transition of care: patient was not received from another setting of care. Onset of symptoms was July 22, 2018. 08:24 Method Of Arrival: Ambulatory sv 08:24 Acuity: AMXIMO 3 sv 08:35 Risk Assessment: Do you want to hurt yourself or someone else? Patient reports no sv desire to harm self or others. Initial Sepsis Screen: Does the patient meet any 2 criteria? RR > 20 per min. No. Patient's initial sepsis screen is negative. Does the patient have a suspected source of infection? Yes: Productive cough/pneumonia. Care prior to arrival: None. Historical: - Allergies: 08:26 Iodine; Topical only; sv - PMHx: 08:26 Atrial Fib; cardioversion; CHF; COPD; Hypertension; mitral valve stenosis; pulmonary sv HTN; resp failure; Rheumatoid Arthritis; - Immunization history:: Adult Immunizations up to date. - Family history:: not pertinent. - Social history:: Smoking status: Patient/guardian denies using tobacco. - Ebola Screening: : No symptoms or risks identified at this time. - Hospitalizations: : No recent hospitalization is reported. Screenin:35 Abuse screen: Denies threats or abuse. Denies injuries from another. Nutritional sv screening: No deficits noted. Tuberculosis screening: No symptoms or risk factors identified. Fall Risk None identified. Assessment: 08:35 General: Appears in no apparent distress. uncomfortable, well developed, Behavior is sv calm, cooperative, appropriate for age. Pain: Denies pain. Neuro: Level of Consciousness is awake, alert, obeys commands, Oriented to person, place, time, situation, Moves all extremities. Full function Gait is steady, Speech is normal. Cardiovascular: Heart tones S1 S2 present Patient's skin is warm and dry. Rhythm is atrial fibrillation. Respiratory: Reports shortness of breath on exertion cough that is non-productive, Airway is patent Respiratory effort is even, unlabored, Respiratory pattern is symmetrical, tachypnea Breath sounds are diminished bilaterally. Derm: Skin is normal. 09:00 Reassessment: Patient appears in no apparent distress at this time. No changes from sv previously documented assessment. Patient and/or family updated on plan of care and expected duration. Pain level reassessed. Patient is alert, oriented x 3, equal unlabored respirations, skin warm/dry/pink. 10:30 Reassessment: Patient appears in no apparent distress at this time. Patient and/or sv family updated on plan of care and expected duration. Pain level reassessed. Patient is alert, oriented x 3, equal unlabored respirations, skin warm/dry/pink. 10:34 Reassessment: Dr Harris at the bedside. sv 12:35 Reassessment: Patient appears in no apparent distress at this time. Patient and/or sv family updated on plan of care and expected duration. Pain level reassessed. Patient is alert, oriented x 3, equal unlabored respirations, skin warm/dry/pink. Patient states feeling better. Patient states symptoms have improved. Vital Signs: 08:26 BP 135 / 90; Pulse 92 MON; Resp 23; Temp 98.2; Pulse Ox 98% on 3 lpm NC; sv 09:49 BP 143 / 83; Pulse 78; Resp 16; Pulse Ox 99% on 3 lpm NC; sv 10:31 BP 137 / 83; Pulse 83; Resp 20; Pulse Ox 97% on 3 lpm NC; sv 12:36 BP 139 / 99; Pulse 82 MON; Resp 19; Pulse Ox 96% on 3 lpm NC; sv 08:26 A fib sv 12:36 A fib sv ED Course: 08:04 Patient arrived in ED. as 08:17 Geovany Barksdale MD is Attending Physician. rn 08:21 Flori Bolaños RN is Primary Nurse. sv 08:25 Triage completed. sv 08:35 Initial lab(s) drawn, by me, sent to lab. First set of blood cultures drawn by me. sv Inserted saline lock: 22 gauge in right forearm, using aseptic technique. ,using aseptic technique. diffusics Blood collected. Flushed right forearm with 5 ml normal saline. 08:35 Patient has correct armband on for positive identification. Placed in gown. Bed in low sv position. Call light in reach. Side rails up X 1. Adult w/ patient. nuclear monitoring technician on. Pulse ox on. NIBP on. Door closed. Head of bed elevated. 08:35 Arm band placed on. sv 08:43 EKG done, by x ray technologist. reviewed by Geovany Barksdale MD. at1 08:50 Second set of blood cultures drawn by nd. sv 09:03 X-ray(s) taken. sv 09:14 XRAY CXR (1 view) In Process Unspecified. EDMS 09:49 Awaiting disposition, Awaiting re-evaluation by ER provider. sv 10:18 aNwaf Harris DO is Hospitalizing Provider. rn 11:57 Awaiting bed assignment. sv 12:35 No provider procedures requiring assistance completed. Patient admitted, IV remains in sv place. intact. Administered Medications: 08:45 Drug: Xopenex (3) 1.25 mg Route: Inhalation; sv 09:00 Drug: SOLU-Medrol 125 mg Route: IVP; Site: right forearm; sv 09:39 Follow up: Response: No adverse reaction sv 10:25 Drug: Lasix 40 mg Route: IVP; Site: right forearm; sv 11:20 Follow up: Response: No adverse reaction sv Output: 11:23 Urine: 700ml (Voided); Total: 700ml. sv 12:43 Urine: 1100ml (Voided); Total: 1800ml. sv Outcome: 10:18 Decision to Hospitalize by Provider. rn 12:35 Admitted to Tele accompanied by tech, family with patient, via wheelchair, room 429, sv with oxygen, with chart, Report called to Dar Harris RN 12:35 Condition: stable 12:35 Instructed on the need for admit. 12:44 Patient left the ED. sv Signatures: Dispatcher [employer] EDFlori Mckeon RN RN sv Martinez, Amelia as Nieto, Roman, MD MD rn Gonzales, Amanda, parking meter installer EKG Tat1 Corrections: (The following items were deleted from the chart) 09:57 09:49 Pulse 78bpm; Resp 16bpm; Pulse Ox 99% 3 lpm Nasal Cannula; sv sv 12:37 08:26 BP 135 / 90; Pulse 92bpm; Resp 23bpm; Pulse Ox 98% 3 lpm Nasal Cannula; Temp sv 98.2F; sv
--- NOTE | 2018-07-29 11:55 | EKG ---
Test Date: 2018-07-29 Test Time: 08:37:37 Certified Ethical Hacker: ELIE MEASUREMENT RESULTS: Intervals: Rate: 79 NV: QRSD: 90 QT: 414 QTc: 474 [place]: P: NV: QRS: 56 T: 154 INTERPRETIVE STATEMENTS: Atrial fibrillation ST & T wave abnormality, consider inferior ischemia or digitalis effect Prolonged QT Abnormal ECG Compared to ECG 06/24/2017 23:13:27 ST (T wave) deviation now present Possible ischemia now present Prolonged QT interval now present Myocardial infarct finding no longer present Electronically Signed On 07-29-18 11:53:42 CDT by Jak Guzman
[2018-07-29] MEDS ORDERED: BUPROPRION HCL S.R. 150MG TAB PO SCH ×2 (12:53→21:00)
[2018-07-29] MEDS ORDERED: ALBUTEROL 2.5 MG/3 ML NEB SOL NEB PRN (12:53)
[2018-07-29] MEDS ORDERED: IPRATROPIUM BROM 0.5MG/2.5ML NEB PRN (12:53)
[2018-07-29] MEDS ORDERED: ONDANSETRON 4 MG/2 ML VIAL IV PRN (12:53)
[2018-07-29] MEDS ORDERED: ACETAMINOPHEN 500 MG TAB PO PRN (12:53)
[2018-07-29 13:29] LABS: Thyroid Stimulating Hormone 2.1 uIU/mL (0.360-3.740)
--- NOTE | 2018-07-29 15:02 | P.HP ---
Certification for Inpatient Patient admitted to: Observation With expected LOS: <2 Midnights Patient will require the following post-hospital care: None Practitioner: I am a practitioner with admitting privileges, knowledge of patient current condition, hospital course, and medical plan of care. Services: Services provided to patient in accordance with Admission requirements found in Title 42 Section 412.3 of the Code of Federal Regulations Patient History Date of Service: 07/29/18 Primary Care Provider: [facility]; Cardiology-Dr. Castellon/Dr. Ash Reason for admission: Shortness of breath History of Present Illness: 63-year-old female presented to the emergency room with increasing shortness of breath. Patient reports increasing shortness of breath over the past week. She has also reported some edema to the lower extremity. Patient with history of systolic CHF, mitral valve stenosis, atrial fibrillation on chronic anti coagulation therapy and COPD. Patient is not on a fluid restriction at home. Patient decided to come in to the hospital as she has had CHF exacerbations in the past. In the ER patient evaluated. Chest x-ray showed CHF pattern. Hemoglobin 12.1, white count 8.8. Sodium 140, potassium 3.1, BUN of 11, creatinine 0.82 with a GFR 66. Troponin unremarkable. BNP elevated. Pro calcitonin negative. Patient was admitted for treatment. When I saw the patient in the ER, she appeared stable on nasal cannula oxygen. Patient had been given Lasix in the emergency Allergies iodine Allergy (Verified 04/20/17 21:14) Unknown Home medications list reviewed: Yes Home Medications: Albuterol Sulfate [Proair Hfa] 8.5 gm IH TID PRN #90 [email or web address] 04/25/17 Bupropion HCl [Wellbutrin] 150 mg PO DAILY 06/25/17 Digoxin [Lanoxin] 125 mcg PO DAILY 06/25/17 Fluticasone/Salmeterol [Airduo Respiclick 113-14 Mcg] 1 each IH BID PRN Furosemide [Lasix*] 20 mg PO BEDTIME 06/25/17 Sertraline [Zoloft*] 50 mg PO DAILY 06/25/17 Sotalol HCl [Betapace*] 120 mg PO BID 06/25/17 Tofacitinib Citrate [Xeljanz Xr] 11 mg PO DAILY 06/25/17 Apixaban [Eliquis] 5 mg PO BID 07/29/18 Diclofenac Sodium [Pennsaid] 112 gm TP PRN PRN 07/29/18 Furosemide [Lasix] 40 mg PO DAILY 07/29/18 Melatonin 10 mg PO BEDTIME PRN 07/29/18 predniSONE [Deltasone] 2.5 mg PO SEECOM 07/29/18 - Past Medical/Surgical History Has patient received pneumonia vaccine in the past: No Diabetic: No -: Chronic atrial fibrillation, chronic anti coagulation therapy -: Rheumatoid arthritis -: Hypertension -: Systolic CHF -: Mitral valve stenosis -: COPD -: Former tobacco use -: tonsillectomy -: c- section -: appendectomy -: tubal ligation Psychosocial/ Personal History: Patient is - Family History Family History: Reviewed- Non-Contributory - Social History Smoking Status: Former smoker Alcohol use: No CD- Drugs: No Caffeine use: No Place of Residence: Home Review of Systems General: As per HPI Eyes: Unremarkable ENT: Unremarkable Respiratory: Shortness of Breath, SOB with Excertion Cardiovascular: Edema, As per HPI Gastrointestinal: Unremarkable Genitourinary: Unremarkable Musculoskeletal: Pedal edema, As per HPI Integumentary: Unremarkable Neurological: Unremarkable Lymphatics: Unremarkable Physical Examination - Vital Signs Temperature: 98.2 F Blood Pressure: 139/99 Pulse: 82 Respirations: 19 - Physical Exam General: Alert, In no apparent distress, Oriented x3, Cooperative HEENT: Atraumatic, Normocephalic, PERRLA, Mucous membr. moist/pink Neck: Supple Respiratory: Crackles/rales (Crackles to the bases bilateral) Cardiovascular: Normal pulses, Regular rate/rhythm Gastrointestinal: Normal bowel sounds, Soft and benign, Non-distended, No tenderness, No masses, No rebound, No guarding Musculoskeletal: No erythema, No tenderness, No warmth Integumentary: Tenderness/swelling (1-2+ pitting edema to the lower extremities) Neurological: Normal speech, Normal strength at 5/5 x4 extr, Normal tone, Normal affect - Studies Laboratory Data (last 24 hrs) 07/29/18 08:35: WBC 8.8, Hgb 12.1, Hct 36.5, Plt Count 211 07/29/18 08:35: Sodium 140, Potassium 3.1 L, BUN 11, Creatinine 0.87, Glucose 159 H Assessment and Plan - Plan Impression: Dyspnea secondary to acute on chronic systolic CHF Hypertension Mitral valve stenosis Chronic atrial fibrillation on chronic anti coagulation therapy COPD Depression with anxiety Rheumatoid arthritis Plan: Dyspnea secondary to acute on chronic systolic CHF: Patient will be admitted for treatment. Will teach on 1500 cc per day fluid restriction and low-salt diet. Will continue with IV Lasix. Will reassess in the morning. Will recheck chest x-ray in the morning. Will have respiratory wean off oxygen. Anticipate discharge in the next 24 hr. Medication may need to be adjusted at discharge. Will check echocardiogram. 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 Continue medication for hypertension, COPD and atrial fibrillation. Hypertension: Continue with medication. Will monitor and adjust appropriately. Mitral valve stenosis: Will check echocardiogram. Chronic atrial fibrillation on chronic anti coagulation therapy: Continue with her medication including Betapace, digoxin and Eliquis. COPD: Will provide COPD medication. Depression with anxiety: Continue with her medication. Rheumatoid arthritis: Continue medication. Discharge Plan: Home Plan to discharge in: 24 Hours - Advance Directives Does patient have a Living Will: No Does patient have a Durable POA for Healthcare: No - Code Status/Comfort Care Code Status Assessed: Yes (Patient is Full code.) Time Spent Managing Pts Care (In Minutes): 55
[2018-07-29] MEDS ORDERED: PNEUMOCOCCAL VACCINE 0.5 ML IMVAC ONE (16:00)
--- NOTE | 2018-07-29 16:33 | ECHO ---
HEIGHT: 5 ft 10 in WEIGHT: 201 lb 3.2 oz DATE OF STUDY: 07/29/[address]: Nawaf Harris DO 2-DIMENSIONAL: YES M.MODE: YES DOPPLER: YES COLOR FLOW: YES TDS: PORTABLE: DEFINITY: BUBBLE STUDY: DIAGNOSIS: FOLLOW UP CHF CARDIAC HISTORY: CATHERIZATION: YES SURGERY: NO PROSTHETIC VALVE: NO PACEMAKER: NO MEASUREMENTS (cm) DIASTOLIC (NORMALS) SYSTOLIC (NORMALS) IVSd 1.3 (0.6-1.2) LA Diam 7.2 (1.9-4.0) LVEF 50-55% LVIDd 4.0 (3.5-5.7) LVIDs 3.0 (2.0-3.5) %FS 25% LVPWd 1.3 (0.6-1.2) Ao Diam 2.6 (2.0-3.7) 2 DIMENSIONAL ASSESSMENT: RIGHT ATRIUM: MARKEDLY DILATED LEFT ATRIUM: MARKEDLY DILATED RIGHT VENTRICLE: DILATED LEFT VENTRICLE: LEFT VENTRICULAR HYPERTROPHY TRICUSPID VALVE: NORMAL MITRAL VALVE: SCLEROSIS PULMONIC VALVE: NORMAL AORTIC VALVE: 3 LEAFLET, MILD THICKENING OF LEAFLETS PERICARDIAL EFFUSION: NONE AORTIC ROOT: NORMAL LEFT VENTRICULAR WALL MOTION: NORMAL DOPPLER/COLOR FLOW: MODERATE MITRAL REGURGITATION AND TRICUSPID REGURGITATION. MILD AORTIC REGURGITATION. NO AORTIC STENOSIS. SEVERE PULMONARY HYPERTENSION. ESTIMATED RIGHT VENTRICULAR SYSTOLIC PRESSURE 60 mmHg. ESTIMATED RIGHT ATRIAL PRESSURE 15 mmHg. COMMENTS: NORMAL LEFT VENTRICULAR EJECTION FRACTION. LEFT VENTRICULAR HYPERTROPHY. MARKEDLY DILATED LEFT ATRIUM AND RIGHT ATRIUM. DILATED RIGHT VENTRICLE. MODERATE MITRAL REGURGITATION AND TRICUSPID REGURGITATION. SEVERE PULMONARY HYPERTENSION. MILD AORITC REGURGITATION. MILD AORTIC SCLEROSIS WITH NO AORTIC STENOSIS. MODERATE MITRAL STENOSIS. ESTIMATED AORTIC VALVE AREA 1.1 CENTIMETERS SQUARED. ATRIAL FIBRILLATION. TECHNOLOGIST: ELISE PIRES
[2018-07-29] MEDS: FUROSEMIDE 40 MG/4 ML VIAL IV SCH (16:52)
[2018-07-29] MEDS: SOTALOL HCL 80 MG TAB PO SCH (18:39)
[2018-07-29] MEDS ORDERED: POTASSIUM CL SA 10 MEQ TAB PO ONE (21:00)
[2018-07-29] MEDS: DULERA 100/5 (MOMETASONE/FORMOTEROL) INHALER IH SCH (21:19)
[2018-07-29] MEDS: APIXABAN 5 MG TABLET PO SCH (21:21)
[2018-07-29] MEDS ORDERED: POTASSIUM 25 MEQ EFFERV TAB PO ONE (22:00)
[2018-07-29] MEDS ORDERED: MELATONIN 3 MG TABLET PO ONE (22:11)
[2018-07-30 00:09] LABS: Urine Appearance CLEAR; Urine Bilirubin NEGATIVE (NEG); Urine Blood 2+ (NEG); Urine Color YELLOW; Urine Glucose TRACE (NEG); Urine Protein TRACE (NEG)
[2018-07-30 00:17] LABS: Urine Microscopic Reflex ORDER UMIC
[2018-07-30 00:52] LABS: Urine Bacteria <20 /HPF (<20); Urine Culture Reflex Order NOT NEEDED
[2018-07-30] MEDS: SOTALOL HCL 80 MG TAB PO SCH (05:06)
[2018-07-30 06:24] LABS: Absolute Lymphocytes (CBC) 1.2 K/uL (0.7-4.9); Absolute Monocytes 1.1 K/uL (0.1-1.3); Absolute Neutrophil 13.1 K/uL (1.8-8.0); Basophils % 0.1 % (0-1.3); Eosinophils % 0.1 % (0-4.4); Hematocrit 36.2 % (36.0-45.0); Lymphocytes % 7.6 % (15.3-44.8); Monocytes % 7.3 % (3.3-12.3); RBC Red Blood Cell Count 3.84 M/uL (3.86-4.86)
[2018-07-30 06:37] VITALS: BMI 29.0
[2018-07-30 06:38] LABS: Magnesium 2.4 mg/dL (1.8-2.4); Potassium 3.6 mmol/L (3.5-5.1)
--- NOTE | 2018-07-30 07:14 | EKG ---
Test Date: 2018-07-29 Test Time: 20:13:16 Sleeve Ironer: RT-O MEASUREMENT RESULTS: Intervals: Rate: 85 MI: QRSD: 84 QT: 420 QTc: 499 [place]: P: MI: QRS: 46 T: 185 INTERPRETIVE STATEMENTS: Atrial fibrillation Nonspecific ST and T wave abnormality, probably digitalis effect Prolonged QT Abnormal ECG Compared to ECG 07/29/2018 08:37:37 Possible ischemia no longer present ST (T wave) deviation still present Electronically Signed On 07-30-18 07:13:15 CDT by Jak Guzman
--- NOTE | 2018-07-30 08:24 | RAD REPORT ---
EXAM DESCRIPTION: RAD - Chest Pa And Lat (2 Views) - 07/30/2018 7:47 am CLINICAL HISTORY: CHF, shortness of breath COMPARISON: July 29 TECHNIQUE: PA and lateral views of the chest were obtained. FINDINGS: The lungs are better aerated than on comparison. No new or progressive lung parenchymal pr ocess. Interstitial pattern remains prominent but does show some improvement. Costophrenic angle blun ting is still present. Cardiac silhouette remains prominent and fractionally improved. No pneumotho rax. No acute bony finding noted. No aortic abnormality. IMPRESSION: Partial clearing of interstitial edema. Mild cardiomegaly remains.
[2018-07-30] MEDS: DULERA 100/5 (MOMETASONE/FORMOTEROL) INHALER IH SCH (08:49)
[2018-07-30] MEDS: FUROSEMIDE 40 MG/4 ML VIAL IV SCH ×2 (08:51→16:56)
[2018-07-30] MEDS: APIXABAN 5 MG TABLET PO SCH (08:51)
[2018-07-30 08:56] VITALS: O2SAT 97
[2018-07-30] MEDS ORDERED: SERTRALINE HCL 50 MG TAB PO SCH (09:00)
[2018-07-30] MEDS ORDERED: BUPROPRION HCL S.R. 150MG TAB PO SCH (09:00)
[2018-07-30] MEDS ORDERED: DIGOXIN 0.125 MG TABLET PO SCH (09:00)
[2018-07-30] MEDS ORDERED: predniSONE 5 MG TAB PO SCH (09:00)
[2018-07-30] MEDS ORDERED: FOLIC ACID 1 MG TABLET PO SCH (09:00)
[2018-07-30] MEDS ORDERED: POTASSIUM 25 MEQ EFFERV TAB PO ONE (09:00)
--- NOTE | 2018-07-30 10:24 | P.DS ---
Admission Date: 07/29/18 Discharge Date: 07/30/18 Primary Care Provider: Clinic; Cardiology-Dr. Castellon/Dr. Ash Disposition: ROUTINE DISCHARGE Discharge Condition: GOOD Reason for Admission: Shortness of breath Consultations: none Procedures: ECHO: EF 50-55% LEFT VENTRICULAR WALL MOTION: NORMAL DOPPLER/COLOR FLOW: MODERATE MITRAL REGURGITATION AND TRICUSPID REGURGITATION. MILD AORTIC REGURGITATION. NO AORTIC STENOSIS. SEVERE PULMONARY HYPERTENSION. ESTIMATED RIGHT VENTRICULAR SYSTOLIC PRESSURE 60 mmHg. ESTIMATED RIGHT ATRIAL PRESSURE 15 mmHg. COMMENTS: NORMAL LEFT VENTRICULAR EJECTION FRACTION. LEFT VENTRICULAR HYPERTROPHY. MARKEDLY DILATED LEFT ATRIUM AND RIGHT ATRIUM. DILATED RIGHT VENTRICLE. MODERATE MITRAL REGURGITATION AND TRICUSPID REGURGITATION. SEVERE PULMONARY HYPERTENSION. MILD AORITC REGURGITATION. MILD AORTIC SCLEROSIS WITH NO AORTIC STENOSIS. MODERATE MITRAL STENOSIS. ESTIMATED AORTIC VALVE AREA 1.1 CENTIMETERS SQUARED. ATRIAL FIBRILLATION. Follow up CXR: COMPARISON: July 29 TECHNIQUE: PA and lateral views of the chest were obtained. FINDINGS: The lungs are better aerated than on comparison. No new or progressive lung parenchymal process. Interstitial pattern remains prominent but does show some improvement. Costophrenic angle blunting is still present. Cardiac silhouette remains prominent and fractionally improved. No pneumothorax. No acute bony finding noted. No aortic abnormality. IMPRESSION: Partial clearing of interstitial edema. Mild cardiomegaly remains. Medical Problem List: Dyspnea secondary to acute on chronic systolic CHF Pulmonary Hypertension Moderate Mitral valve stenosis Chronic atrial fibrillation on chronic anti coagulation therapy COPD Depression with anxiety Rheumatoid arthritis Brief History of Present Illness: 63-year-old female presented to the emergency room with increasing shortness of breath. Patient reports increasing shortness of breath over the past week. She has also reported some edema to the lower extremity. Patient with history of systolic CHF, mitral valve stenosis, atrial fibrillation on chronic anti coagulation therapy and COPD. Patient is not on a fluid restriction at home. Patient decided to come in to the hospital as she has had CHF exacerbations in the past. In the ER patient evaluated. Chest x-ray showed CHF pattern. Hemoglobin 12.1, white count 8.8. Sodium 140, potassium 3.1, BUN of 11, creatinine 0.82 with a GFR 66. Troponin unremarkable. BNP elevated. Pro calcitonin negative. Patient was admitted for treatment. When I saw the patient in the ER, she appeared stable on nasal cannula oxygen. Patient had been given Lasix in the emergency Hospital Course: Patient presented with dyspnea secondary to acute on chronic systolic CHF. Patient was admitted for treatment and observation. Patient not previously on fluid restriction at home. Patient taught on fluid restriction. Patient responded well to medication-IV Lasix. Echocardiogram showed improved ejection fraction. It also showed severe pulmonary hypertension and moderate mitral valve stenosis. At discharge she will continue with a 1500 cc per day fluid restriction and low-salt diet. She is to monitor her weight daily. If her weight increases by more than 5 lb she is to contact her PCP or jigsaw operator for further recommendation. Lasix has been increased. At discharge she will continue with Lasix 40 mg 1 pill twice daily. Recommend a follow up with cardiology within 1 week to follow up this hospitalization. Patient may benefit with pulmonology evaluation as an outpatient to further address pulmonary hypertension. Cardiology to follow up on mitral valve stenosis. Further adjustment in diuretic therapy may be adjusted by Cardiology. Patient with pulmonary hypertension. At discharge she will continue with her medication Lasix. Recommend to follow up with pulmonology and Cardiology as an outpatient to further evaluate. Patient with chronic atrial fibrillation on chronic anti coagulation therapy. Patient will continue with her medication including Eliquis 5 mg 1 pill twice daily, Lanoxin 125 mcg daily, and Betapace 120 mg 1 pill twice daily. Recommend follow-up with Cardiology within 1-2 weeks. Patient with COPD. She will continue with her medication Airduo 1 puff twice daily and Pro air 2 puffs 3 times a day as needed for shortness of breath. Recommend to follow up with pulmonology as an outpatient to further evaluate. Patient with underlying obstructive sleep apnea. Recommend to follow up with pulmonology to get set up with CPAP at night. Patient with depression with anxiety and insomnia. Patient will continue with medication of Wellbutrin 150 mg daily and melatonin 10 mg daily. Recommend to follow up with a PCP to further evaluate and adjust. Patient with rheumatoid arthritis. Patient will continue with her medication- Xeljanz. Recommend to follow up with pulmonology to further evaluate and address. Recommend no further use of nonsteroidal anti-inflammatories since the patient is on chronic anti coagulation therapy-Eliquis. Vital Signs/Physical Exam: Temp Pulse Resp BP Pulse Ox 97.0 F 101 H 18 104/67 96 07/30/18 08:00 07/30/18 08:51 07/30/18 08:00 07/30/18 08:51 07/30/18 08:00 General: Alert, In no apparent distress, Oriented x3, Cooperative HEENT: Atraumatic Neck: Supple Respiratory: Clear to auscultation bilaterally, Normal air movement Cardiovascular: Abnormal pulses (Atrial fibrillation, rate better controlled) Gastrointestinal: Normal bowel sounds, Soft and benign, Non-distended, No tenderness, No masses, No rebound, No guarding Musculoskeletal: No erythema, No tenderness, No warmth Integumentary: No tenderness/swelling, No erythema, No warmth, No cyanosis Neurological: Normal speech, Normal strength at 5/5 x4 extr, Normal tone, Normal affect Laboratory Data at Discharge: WBC 15.5 K/uL (4.3-10.9) H D 07/30/18 05:58 Hgb 12.0 g/dL (12.0-15.0) 07/30/18 05:58 Hct 36.2 % (36.0-45.0) 07/30/18 05:58 Plt Count 235 K/uL (152-406) 07/30/18 05:58 Sodium 138 mmol/L (136-145) 07/30/18 05:58 Potassium 3.6 mmol/L (3.5-5.1) 07/30/18 05:58 BUN 16 mg/dL (7-18) 07/30/18 05:58 Creatinine 0.82 mg/dL (0.55-1.3) 07/30/18 05:58 Glucose 117 mg/dL (74-106) H 07/30/18 05:58 Magnesium 2.4 mg/dL (1.8-2.4) 07/30/18 05:58 Home Medications: Albuterol Sulfate [Proair Hfa] 8.5 gm IH TID PRN #90 hfa.aer.ad 04/25/17 Bupropion HCl [Wellbutrin] 150 mg PO DAILY 06/25/17 Digoxin [Lanoxin] 125 mcg PO DAILY 06/25/17 Fluticasone/Salmeterol [Airduo Respiclick 113-14 Mcg] 1 each IH BID PRN Sertraline [Zoloft*] 50 mg PO DAILY 06/25/17 Sotalol HCl [Betapace*] 120 mg PO BID 06/25/17 Tofacitinib Citrate [Xeljanz Xr] 11 mg PO DAILY 06/25/17 Apixaban [Eliquis *] 5 mg PO BID 07/29/18 Melatonin 10 mg PO BEDTIME PRN 07/29/18 predniSONE [Prednisone*] 2.5 mg PO SEECOM 07/29/18 Furosemide [Lasix*] 40 mg PO BID #60 tab 07/30/18 New Medications: Furosemide [Lasix*] 40 mg PO BID #60 tab Patient Discharge Instructions: 1. Patient to follow up with her PCP within 1 week to follow up hospitalization. 2. Patient presented with dyspnea secondary to acute on chronic systolic CHF. Patient was admitted for treatment and observation. Patient not previously on fluid restriction at home. Patient taught on fluid restriction. Patient responded well to medication-IV Lasix. Echocardiogram showed improved ejection fraction. It also showed severe pulmonary hypertension and moderate mitral valve stenosis. At discharge she will continue with a 1500 cc per day fluid restriction and low-salt diet. She is to monitor her weight daily. If her weight increases by more than 5 lb she is to contact her PCP or jigsaw operator for further recommendation. Lasix has been increased. At discharge she will continue with Lasix 40 mg 1 pill twice daily. Recommend a follow up with cardiology within 1 week to follow up this hospitalization. Patient may benefit with pulmonology evaluation as an outpatient to further address pulmonary hypertension. Cardiology to follow up on mitral valve stenosis. Further adjustment in diuretic therapy may be adjusted by Cardiology. 3. Patient with pulmonary hypertension. At discharge she will continue with her medication Lasix. Recommend to follow up with pulmonology and Cardiology as an outpatient to further evaluate. 4. Patient with chronic atrial fibrillation on chronic anti coagulation therapy. Patient will continue with her medication including Eliquis 5 mg 1 pill twice daily, Lanoxin 125 mcg daily, and Betapace 120 mg 1 pill twice daily. Recommend follow -up with Cardiology within 1-2 weeks. 5. Patient with COPD. She will continue with her medication Airduo 1 puff twice daily and Pro air 2 puffs 3 times a day as needed for shortness of breath. Recommend to follow up with pulmonology as an outpatient to further evaluate. 6. Patient with underlying obstructive sleep apnea. Recommend to follow up with pulmonology to get set up with CPAP at night. 7. Patient with depression with anxiety and insomnia. Patient will continue with medication of Wellbutrin 150 mg daily and melatonin 10 mg daily. Recommend to follow up with a PCP to further evaluate and adjust. 8. Patient with rheumatoid arthritis. Patient will continue with her medication-Xeljanz. Recommend to follow up with pulmonology to further evaluate and address. 9. Recommend no further use of nonsteroidal anti- inflammatories since the patient is on chronic anti coagulation therapy-Eliquis. Diet: AHA Activity: Ad yariel Time spent managing pt's care (in minutes): 55
[2018-07-30] MEDS ORDERED: PNEUMOCOCCAL VACCINE 0.5 ML IMVAC ONE (16:00)
[2018-07-30 16:42] VITALS: BP 119/73; TEMP 97.8
== END 2018-07-30 17:24 | disposition home or self-care (01) ==
LOC: ER 08:03 → ERHOLD 11:03 → 4TH 12:36
PROVIDERS: ADMIT Family Medicine; ATTEND Family Medicine
DX: I11.0 Hypertensive heart disease with heart failure (principal); I50.23 Acute on chronic systolic (congestive) heart failure; I27.20 Pulmonary hypertension, unspecified; I05.0 Rheumatic mitral stenosis; I48.2 Chronic atrial fibrillation; J44.9 Chronic obstructive pulmonary disease, unspecified; F41.8 Other specified anxiety disorders; M06.9 Rheumatoid arthritis, unspecified; G47.33 Obstructive sleep apnea (adult) (pediatric); G47.00 Insomnia, unspecified; Z79.01 Long term (current) use of anticoagulants; Z23 Encounter for immunization
CPT/HCPCS: 36415; 71045; 71046; 80048; 81003; 81015; 83735; 83880; 84145; 84439; 84443; 84484; 85025; 87040; 90670; 93005; 93306; 96374; 96375; 99285; G0009; G0378; J1940; J2930; J7512; J7606

== ENCOUNTER 2019-01-24 10:15 | Emergency (ER) | payer OTHER ==
--- NOTE | 2019-01-24 11:23 | RAD REPORT ---
EXAM DESCRIPTION: RAD - Chest Single View - 01/24/2019 11:16 am CLINICAL HISTORY: CHEST PAIN Chest pain. COMPARISON: Chest Pa And Lat (2 Views) dated 07/30/2018; Chest Single View dated 07/29/2018; Chest Pa And Lat (2 Views) dated 02/20/2018; Abdomen 1 View (KUB) dated 06/28/2017 FINDINGS: Portable technique limits examination quality. The lungs are grossly clear. Moderate cardiomegaly. No displaced fractures. IMPRESSION: Moderate cardiomegaly.
--- NOTE | 2019-01-24 11:43 | ER ---
Nurse's Notes [facility] Name: Celsa Lorenzo Age: 63 yrs Sex: Female : 1955 Arrival Date: 01/24/2019 Time: 10:18 Bed 7 Private MD: None, None Diagnosis: Chest pain, unspecified-Sternocostal sprain Presentation: 01/24 10:34 Presenting complaint: Patient states: last was pushing herself up from a iw chair, shoulders folded in towards chest, then heard and felt a pop in her midsternal area, has had increasing pain since then, has been taking tramadol for pain with no relief. Transition of care: patient was not received from another setting of care. Onset of symptoms was January 16, 2019. Risk Assessment: Do you want to hurt yourself or someone else? Patient reports no desire to harm self or others. Initial Sepsis Screen: Does the patient meet any 2 criteria? No. Patient's initial sepsis screen is negative. Does the patient have a suspected source of infection? No. Patient's initial sepsis screen is negative. Care prior to arrival: None. 10:34 Method Of Arrival: Ambulatory iw 10:34 Acuity: MAXIMO 4 iw Historical: - Allergies: 10:38 Betadine; iw - Home Meds: 10:38 digoxin 125 mcg Oral tab 1 tab once daily [Active]; Eliquis 5 mg Oral tab 1 tab 2 times iw per day [Active]; KCL 20 mEq daily [Active]; meloxicam 15 mg Oral tab 1 tab once daily [Active]; Lasix 40 mg Oral tab 20mg at night [Active]; prednisone 2.5 mg Oral tab [Active]; sotalol 120 mg Oral tab 1 tab 2 times per day [Active]; Wellbutrin 150mg Oral 1 tab daily [Active]; Xeljanz Oral [Active]; Zoloft 50 mg Oral tab 1 tab once daily [Active]; - PMHx: 10:38 Atrial Fib; cardioversion; CHF; COPD; Hypertension; mitral valve stenosis; pulmonary iw HTN; resp failure; Rheumatoid Arthritis; - Ebola Screening: : Patient negative for fever greater than or equal to 101.5 degrees Fahrenheit, and additional compatible Ebola Virus Disease symptoms Patient denies exposure to infectious person Patient denies travel to an Ebola-affected area in the 21 days before illness onset No symptoms or risks identified at this time. Screenin:00 Abuse screen: Denies threats or abuse. Nutritional screening: No deficits noted. aa5 Tuberculosis screening: No symptoms or risk factors identified. Fall Risk None identified. Assessment: 11:00 General: Appears comfortable, Behavior is calm, cooperative. Pain: Complains of pain in aa5 mid-sternal area Pain does not radiate. Pain currently is 8 out of 10 on a pain scale. Quality of pain is described as sharp, Pain began 2-3 days ago. Is continuous, Aggravated by increased activity. Neuro: Level of Consciousness is awake, alert, obeys commands, Oriented to person, place, time, situation. Cardiovascular: Heart tones S1 S2 present Rhythm is regular. Respiratory: Airway is patent Respiratory effort is even, unlabored, Respiratory pattern is regular, symmetrical. GI: No signs and/or symptoms were reported involving the gastrointestinal system. : No signs and/or symptoms were reported regarding the genitourinary system. EENT: No signs and/or symptoms were reported regarding the EENT system. Derm: Skin is pink, warm \T\ dry. Musculoskeletal: Range of motion: intact in all extremities. 11:45 Reassessment: Patient is alert, oriented x 3, equal unlabored respirations, skin aa5 warm/dry/pink. Vital Signs: 10:38 BP 146 / 92; Pulse 72; Resp 16 S; Temp 97.0; Pulse Ox 100% on R/A; iw 11:10 BP 142 / 98; Pulse 74; Resp 14 S; Pulse Ox 100% on R/A; Height 5 ft. 10 in. (177.80 cm) aa5 (R); ED Course: 10:18 Patient arrived in ED. ag5 10:18 None, None is Private Physician. ag5 10:28 Kyrie Herring PA is PHCP. [place] 10:28 Ildefonso Lynn MD is Attending Physician. [place] 10:31 Columba Moncada, EDWINA is Primary Nurse. aa5 10:36 Triage completed. iw 10:38 Arm band placed on. iw 11:00 Patient has correct armband on for positive identification. Placed in gown. Bed in low aa5 position. Call light in reach. Side rails up X 1. 11:00 Pulse ox on. NIBP on. aa5 11:16 Chest Single View XRAY In Process Unspecified. EDMS 11:16 X-ray(s) taken. sv 11:45 No provider procedures requiring assistance completed. Patient did not have IV access aa5 during this emergency room visit. Patient maintains SpO2 saturation greater than 95% on room air. Administered Medications: No medications were administered Outcome: 11:42 Discharge ordered by . lisbeth 11:45 Discharged to home ambulatory. aa5 11:45 Condition: stable 11:45 Discharge instructions given to patient, Instructed on discharge instructions, follow up and referral plans. medication usage, Need to use incentive spirometer to prevent Pneumonia. Pt demonstrated how to use incentive spirometer. Demonstrated understanding of instructions, follow-up care, medications, Prescriptions given X 3. 11:49 Patient left the ED. jb1 Signatures: Dispatcher [employer] EDMS Jony Villela jb1 Flori Bolaños RN RN Kyrie Trinidad PA PA jmm Williams, Irene RN Columba Hinton RN RN aa5 Thad Malave ag5 Corrections: (The following items were deleted from the chart) 12:04 11:45 Discharge instructions given to patient, Instructed on discharge instructions, aa5 follow up and referral plans. medication usage, Demonstrated understanding of instructions, follow-up care, medications, Prescriptions given X 3, aa5
--- NOTE | 2019-01-24 11:43 | EDPHYS ---
Physician Documentation [facility] Name: Celsa Lorenzo Age: 63 yrs Sex: Female : 1955 Arrival Date: 01/24/2019 Time: 10:18 Bed 7 Private MD: None, None ED Physician Ildefonso Lynn HPI: 01/24 10:35 This 63 yrs old Female presents to ER via Ambulatory with complaints of Chest jmm Pain. 10:35 The patient or guardian reports chest pain that is located primarily in the anterior [facility] chest wall. Onset: The symptoms/episode began/occurred acutely. The pain does not radiate. The chest pain is described as sharp. This is a 63 year old female that presents to the ED with complaints of sternal chest pain which occurred after lifting herself out of chair. Patient states she heard a pop. Patient states having progressively worsening pain since. . Historical: - Allergies: 10:38 Betadine; iw - Home Meds: 10:38 digoxin 125 mcg Oral tab 1 tab once daily [Active]; Eliquis 5 mg Oral tab 1 tab 2 times iw per day [Active]; KCL 20 mEq daily [Active]; meloxicam 15 mg Oral tab 1 tab once daily [Active]; Lasix 40 mg Oral tab 20mg at night [Active]; prednisone 2.5 mg Oral tab [Active]; sotalol 120 mg Oral tab 1 tab 2 times per day [Active]; Wellbutrin 150mg Oral 1 tab daily [Active]; Xeljanz Oral [Active]; Zoloft 50 mg Oral tab 1 tab once daily [Active]; - PMHx: 10:38 Atrial Fib; cardioversion; CHF; COPD; Hypertension; mitral valve stenosis; pulmonary iw HTN; resp failure; Rheumatoid Arthritis; - Ebola Screening: : Patient negative for fever greater than or equal to 101.5 degrees Fahrenheit, and additional compatible Ebola Virus Disease symptoms Patient denies exposure to infectious person Patient denies travel to an Ebola-affected area in the 21 days before illness onset No symptoms or risks identified at this time. ROS: 10:35 Constitutional: Negative for fever, chills, and weight loss. jmm 10:35 Respiratory: Negative for shortness of breath, cough, wheezing, and pleuritic chest pain, Abdomen/GI: Negative for abdominal pain, nausea, vomiting, diarrhea, and constipation. 10:35 Cardiovascular: Positive for chest pain, with movement. 10:35 All other systems are negative. Exam: 10:35 Constitutional: This is a well developed, well nourished patient who is awake, alert, jmm and in no acute distress. Head/Face: atraumatic. Eyes: EOMI, no conjunctival erythema appreciated ENT: Moist Mucus Membranes Neck: Trachea midline, Supple 10:35 Cardiovascular: Regular rate and rhythm. No edema appreciated Respiratory: Normal respirations, no respiratory distress appreciated Abdomen/GI: Non distended, soft Back: Normal ROM Skin: General appearance color normal MS/ Extremity: Moves all extremities, no obvious deformities appreciated, no edema noted to the lower extremities Neuro: Awake and alert, normal gait Psych: Behavior is normal, Mood is normal, Patient is cooperative and pleasant 10:35 Chest/axilla: Palpation: tenderness, that is moderate, of the mid-sternal area, that totally reproduces the patient's complaints. Vital Signs: 10:38 BP 146 / 92; Pulse 72; Resp 16 S; Temp 97.0; Pulse Ox 100% on R/A; iw 11:10 BP 142 / 98; Pulse 74; Resp 14 S; Pulse Ox 100% on R/A; Height 5 ft. 10 in. (177.80 cm) aa5 (R); MDM: 10:39 Patient medically screened. [facility] 11:39 Data reviewed: vital signs, nurses notes. Counseling: I had a detailed discussion with [facility] the patient and/or guardian regarding: the historical points, exam findings, and any diagnostic results supporting the discharge/admit diagnosis, radiology results, the need for outpatient follow up, to return to the emergency department if symptoms worsen or persist or if there are any questions or concerns that arise at home. ED course: Patient is alert and non toxic in appearance in the ED. CXR negative. Appears to be MS based of PE. Patient given IS with strict return precautions. patient understood and agrees with the plan of care. . 01/24 10:37 Order name: Chest Single View XRAY; Complete Time: 11:27 [facility] 01/24 11:38 Order name: INCENTIVE SPIROMETRY [facility] Administered Medications: No medications were administered Disposition: 13:04 Co-signature as Attending Physician, Ildefonso Lynn MD I agree with the assessment and kdr plan of care. Disposition: 01/24/19 11:42 Discharged to Home. Impression: Chest pain, unspecified - Sternocostal sprain. - Condition is Stable. - Discharge Instructions: Nonspecific Chest Pain, Chest Wall Pain. - Prescriptions for Prednisone 20 mg Oral Tablet - take 3 tablet by ORAL route once daily for 5 days; 15 tablet. Tylenol- Codeine #3 300-30 mg Oral Tablet - take 1 tablet by ORAL route every 6 hours As needed; 12 tablet. orphenadrine citrate 100 mg Oral Tablet Sustained Release - take 1 tablet by ORAL route 2 times per day As needed; 20 tablet. - Medication Reconciliation Form, Thank You Letter, Antibiotic Education, Prescription Opioid Use form. - Follow up: Private Physician; When: 2 - 3 days; Reason: Recheck today's complaints, Continuance of care, Re-evaluation by your physician. Signatures: Dispatcher [employer] EDMS Jony Villela jb1 Ildefonso Lynn MD MD kdr Mickail, Joel, PA PA jmm Williams, Irene, RN RN iw Corrections: (The following items were deleted from the chart) 11:49 11:42 01/24/2019 11:42 Discharged to Home. Impression: Chest pain, unspecified - jb1 Sternocostal sprain. Condition is Stable. Forms are Medication Reconciliation Form, Thank You Letter, Antibiotic Education, Prescription Opioid Use. Follow up: Private Physician; When: 2 - 3 days; Reason: Recheck today's complaints, Continuance of care, Re-evaluation by your physician. lisbeth
[2019-01-24 12:01] VITALS: BP 146/92; TEMP 97; O2SAT 100
== END 2019-01-24 11:49 | disposition home or self-care (01) ==
LOC: ER 10:15
DX: S23.41XA Sprain of ribs, initial encounter (principal); X50.9XXA Other and unspecified overexertion or strenuous movements or postures, initial encounter; Y93.89 Activity, other specified; Y92.9 Unspecified place or not applicable; Z79.01 Long term (current) use of anticoagulants; I10 Essential (primary) hypertension; I48.91 Unspecified atrial fibrillation; I50.9 Heart failure, unspecified; J44.9 Chronic obstructive pulmonary disease, unspecified; Z88.3 Allergy status to other anti-infective agents
CPT/HCPCS: 71045; 99284

== ENCOUNTER 2019-01-29 17:40 | Emergency (ER) | payer OTHER ==
[2019-01-29] MEDS ORDERED: NA CHLORIDE 0.9% 1,000 ML ONE (18:47)
[2019-01-29] MEDS ORDERED: METHYLPREDNISOLONE 125 MG INJ ONE (18:48)
[2019-01-29] MEDS ORDERED: DIPHENHYDRAMINE 50 MG/ML VIAL ONE (18:48)
[2019-01-29] MEDS ORDERED: FAMOTIDINE 20 MG/2 ML VIAL IV ONE (18:48)
--- NOTE | 2019-01-29 19:07 | RAD REPORT ---
EXAM DESCRIPTION: RAD - Chest Single View - 01/29/2019 6:49 pm CLINICAL HISTORY: Chest pain COMPARISON: January 24 TECHNIQUE: AP portable chest image was obtained 1845 hours . FINDINGS: No focal lung parenchymal process. Lung markings are similar to comparison. Cardiac silhou ette is enlarged similar to comparison. No acute vascular engorgement. No measurable pleural effusion and no pneumothorax. No acute bony abnormality seen. No acute aortic findings suspected. IMPRESSION: No acute lung parenchymal process. Cardiomegaly without other findings of significant failure or volume overload.
[2019-01-29 19:14] LABS: ALT/SGPT 47 U/L (12-78); AST/SGOT 34 U/L (15-37); Albumin 3.8 g/dL (3.4-5.0); Alkaline Phosphatase 70 U/L (45-117); BUN Blood Urea Nitrogen 23 mg/dL (7-18); Bicarbonate 28 mmol/L (21-32); Bilirubin Direct 0.2 mg/dL (0-0.2); Bilirubin Total 0.6 mg/dL (0.2-1.0); Glucose Level 96 mg/dL (74-106); Lipase 70 U/L (73-393); Magnesium 2.5 mg/dL (1.8-2.4); NT PRO-BNP 3690 pg/mL (<125); Potassium 3.3 mmol/L (3.5-5.1); Protein, Total 7.4 g/dL (6.4-8.2); Sodium Level 139 mmol/L (136-145); Troponin (Emerg Dept Use Only) < 0.02 ng/mL (0.0-0.045)
[2019-01-29 19:19] LABS: Absolute Lymphocytes (CBC) 2.6 K/uL (0.7-4.9); Basophils % 0.2 % (0-1.3); Hematocrit 36.6 % (36.0-45.0); Lymphocytes % 27.4 % (15.3-44.8); RBC Red Blood Cell Count 3.91 M/uL (3.86-4.86)
--- NOTE | 2019-01-29 19:21 | ER ---
Nurse's Notes [facility] Name: Celsa Lorenzo Age: 63 yrs Sex: Female : 1955 Arrival Date: 01/29/2019 Time: 17:42 Bed 25 Private MD: Diagnosis: Other chest pain;Unspecified sprain of sternum;Unspecified fracture of sternum;Sprain of ribs and sternum;Atrial fibrillation and flutter;Hypokalemia;Cardiomegaly;Urinary tract infection, site not specified Presentation: 01/29 17:49 Presenting complaint: Patient states: "I was here a few days ago because I thought I aa5 broke my sternum but they did x-rays and it wasn't broken and I opted out for the CT but my pain is worse now". Transition of care: patient was not received from another setting of care. Onset of symptoms was December 2018. Risk Assessment: Do you want to hurt yourself or someone else? Patient reports no desire to harm self or others. Initial Sepsis Screen: Does the patient meet any 2 criteria? No. Patient's initial sepsis screen is negative. Does the patient have a suspected source of infection? No. Patient's initial sepsis screen is negative. Care prior to arrival: None. 17:49 Acuity: MAXIMO 3 aa5 17:49 Method Of Arrival: Ambulatory aa5 Historical: - Allergies: 17:51 Betadine; aa5 17:51 Iodine; Topical only; aa5 - Home Meds: 20:11 digoxin 125 mcg Oral tab 1 tab once daily [Active]; Eliquis 5 mg Oral tab 1 tab 2 times mg2 per day [Active]; KCL 20 mEq daily [Active]; Lasix 40 mg Oral tab 20mg at night [Active]; meloxicam 15 mg Oral tab 1 tab once daily [Active]; prednisone 2.5 mg Oral tab [Active]; sotalol 120 mg Oral tab 1 tab 2 times per day [Active]; Wellbutrin 150mg Oral 1 tab daily [Active]; Xeljanz Oral [Active]; Zoloft 50 mg Oral tab 1 tab once daily [Active]; - PMHx: 17:51 Atrial Fib; cardioversion; CHF; COPD; Hypertension; mitral valve stenosis; pulmonary aa5 HTN; resp failure; Rheumatoid Arthritis; - Immunization history:: Flu vaccine is not up to date. - Social history:: Smoking status: Patient uses tobacco products, denies chronic smoking, but will smoke occasionally. - Ebola Screening: : No symptoms or risks identified at this time. - Family history:: not pertinent. Screenin:09 Abuse screen: Denies threats or abuse. Denies injuries from another. Nutritional mg2 screening: No deficits noted. Tuberculosis screening: No symptoms or risk factors identified. Fall Risk IV access (20 points). Assessment: 19:30 General: Appears in no apparent distress. comfortable, Behavior is calm, cooperative. mg2 19:30 Pain: Complains of pain in mid-sternal area Pain does not radiate. Pain currently is 5 mg2 out of 10 on a pain scale. Quality of pain is described as aching, Pain began gradually. Neuro: Level of Consciousness is awake, alert, obeys commands, Oriented to person, place, time, situation. Cardiovascular: Capillary refill < 3 seconds Patient's skin is warm and dry. Cardiovascular: Reports chest pain. Respiratory: Airway is patent Respiratory effort is even, unlabored, Respiratory pattern is regular, symmetrical. GI: No signs and/or symptoms were reported involving the gastrointestinal system. : No signs and/or symptoms were reported regarding the genitourinary system. EENT: No signs and/or symptoms were reported regarding the EENT system. Derm: Skin is intact, is healthy with good turgor, Skin is pink, warm \\T\\ dry. normal. Musculoskeletal: Circulation, motion, and sensation intact. Capillary refill < 3 seconds, Reports pain in mid-sternal area. 20:00 Reassessment: Patient appears in no apparent distress at this time. Patient and/or mg2 family updated on plan of care and expected duration. Pain level reassessed. Patient is alert, oriented x 3, equal unlabored respirations, skin warm/dry/pink. patient for discharge once all results are back. 20:55 Reassessment: Patient appears in no apparent distress at this time. Patient is alert, mg2 oriented x 3, equal unlabored respirations, skin warm/dry/pink. Vital Signs: 17:51 BP 143 / 103; Pulse 75; Resp 18 S; Temp 97.4(TE); Pulse Ox 98% on R/A; Weight 95.25 kg aa5 (R); Height 5 ft. 11 in. (180.34 cm) (R); Pain 8/10; 19:30 BP 130 / 85; Pulse 76; Resp 18; Pulse Ox 100% on R/A; mg2 20:00 BP 131 / 90; Pulse 80; Resp 18; Pulse Ox 100% on R/A; mg2 20:54 BP 141 / 97; Pulse 76; Resp 18; Pulse Ox 100% on R/A; mg2 17:51 Body Mass Index 29.29 (95.25 kg, 180.34 cm) aa5 ED Course: 17:42 Patient arrived in ED. rg4 17:49 Arm band placed on. aa5 17:50 Triage completed. aa5 18:01 Gilberto George, EDWINA is Primary Nurse. mg2 18:18 Jerald Perdue MD is Attending Physician. graciela 18:46 XRAY Chest (1 view) In Process Unspecified. EDMS 19:00 Inserted saline lock: 22 gauge in right forearm, using aseptic technique. Blood mg2 collected. 19:37 Denise Banerjee FNP-C is PHCP. kb 19:59 CT Chest, Abdomen, Pelvis - W/Contrast In Process Unspecified. EDMS 20:09 No provider procedures requiring assistance completed. mg2 20:10 Patient has correct armband on for positive identification. Pulse ox on. NIBP on. mg2 21:10 IV discontinued, intact, bleeding controlled, No redness/swelling at site. Pressure mg2 dressing applied. Administered Medications: 19:00 Drug: NS 0.9% 500 ml Route: IV; Rate: bolus; Site: right forearm; mg2 22:29 Follow up: Response: No adverse reaction; IV Status: Completed infusion; IV Intake: mg2 500ml 19:00 Drug: Benadryl 25 mg Route: IVP; Site: right forearm; mg2 20:00 Follow up: Response: No adverse reaction mg2 19:00 Drug: Pepcid 20 mg Route: IVP; Site: right forearm; mg2 20:00 Follow up: Response: No adverse reaction mg2 19:47 Drug: Rocephin 1 grams Route: IV; Rate: 1 per protocol; Site: right antecubital; rv 20:30 Follow up: Response: No adverse reaction; IV Status: Completed infusion mg2 19:47 Drug: Potassium Effervescent Tablet 25 mEq Route: PO; rv 20:30 Follow up: Response: No adverse reaction mg2 19:47 Drug: TORadol - Ketorolac 15 mg Route: IVP; Site: right antecubital; rv 20:30 Follow up: Response: No adverse reaction; Marked relief of symptoms mg2 19:50 Drug: SOLU-Medrol 125 mg Route: IVP; Site: right forearm; mg2 20:00 Follow up: Response: No adverse reaction mg2 20:06 Drug: NS 0.9% 1000 ml Route: IV; Rate: 125 ml/hr; Site: right forearm; mg2 21:00 Follow up: Response: No adverse reaction; IV Status: Order to discontinue infusion; IV mg2 Intake: 150ml Intake: 21:00 IV: 150ml; Total: 150ml. mg2 22:29 IV: 500ml; Total: 650ml. mg2 Outcome: 19:19 Discharge ordered by . graciela 21:10 Discharged to home ambulatory. mg2 21:10 Condition: stable 21:10 Discharge instructions given to patient, Instructed on discharge instructions, follow up and referral plans. medication usage, Demonstrated understanding of instructions, follow-up care, medications, Prescriptions given X 2. 21:11 Patient left the ED. mg2 Signatures: Dispatcher [employer] EDMS Denise Banerjee, DETECTIVE SUPERVISOR-C DETECTIVE SUPERVISOR-Ckb Jerald Perdue MD MD cha Calderon, Audri, RN RN [email or web address] Twyla [id number] Gilberto George RN RN mg2 Ernesto Rangel RN RN rv Corrections: (The following items were deleted from the chart) 17:52 17:51 BP 143 / 103; Pulse 75bpm; Resp 18bpm; Spontaneous; Pulse Ox 98% RA; Temp 97.4F aa5 Temporal; 95.25 kg Reported; Height 5 ft. 11 in. Reported; BMI: 29.2; aa5
--- NOTE | 2019-01-29 19:21 | EDPHYS ---
Physician Documentation [facility] Name: Celsa Lorenzo Age: 63 yrs Sex: Female : 1955 Arrival Date: 01/29/2019 Time: 17:42 Bed 25 Private MD: ED Physician Jerald Perdue HPI: 01/29 18:41 This 63 yrs old Female presents to ER via Ambulatory with complaints of Chest graciela Pain From Fall. 18:41 The patient or guardian reports chest pain that is located primarily in the anterior graciela chest wall, bilaterally, mid-sternal area. Onset: 3 day(s) ago. The pain does not radiate. The patient or guardian reports chest pain that is located primarily in the anterior chest wall. Onset: The symptoms/episode began/occurred 3 day(s) ago. The pain does not radiate. Associated signs and symptoms: The patient has no apparent associated signs or symptoms. The chest pain is described as aching. Severity of pain: At its worst the pain was moderate in the emergency department the pain is unchanged. Historical: - Allergies: 17:51 Betadine; aa5 17:51 Iodine; Topical only; aa5 - Home Meds: 20:11 digoxin 125 mcg Oral tab 1 tab once daily [Active]; Eliquis 5 mg Oral tab 1 tab 2 times mg2 per day [Active]; KCL 20 mEq daily [Active]; Lasix 40 mg Oral tab 20mg at night [Active]; meloxicam 15 mg Oral tab 1 tab once daily [Active]; prednisone 2.5 mg Oral tab [Active]; sotalol 120 mg Oral tab 1 tab 2 times per day [Active]; Wellbutrin 150mg Oral 1 tab daily [Active]; Xeljanz Oral [Active]; Zoloft 50 mg Oral tab 1 tab once daily [Active]; - PMHx: 17:51 Atrial Fib; cardioversion; CHF; COPD; Hypertension; mitral valve stenosis; pulmonary aa5 HTN; resp failure; Rheumatoid Arthritis; - Immunization history:: Flu vaccine is not up to date. - Social history:: Smoking status: Patient uses tobacco products, denies chronic smoking, but will smoke occasionally. - Ebola Screening: : No symptoms or risks identified at this time. - Family history:: not pertinent. ROS: 18:41 Constitutional: Negative for fever, chills, and weight loss, Eyes: Negative for injury, graciela pain, redness, and discharge, ENT: Negative for injury, pain, and discharge, Neck: Negative for injury, pain, and swelling, Cardiovascular: Negative for chest pain, palpitations, and edema, Respiratory: Negative for shortness of breath, cough, wheezing, and pleuritic chest pain, Abdomen/GI: Negative for abdominal pain, nausea, vomiting, diarrhea, and constipation, Back: Negative for injury and pain, : Negative for injury, bleeding, discharge, and swelling, MS/Extremity: Negative for injury and deformity, Skin: Negative for injury, rash, and discoloration, Neuro: Negative for headache, weakness, numbness, tingling, and seizure, Psych: Negative for depression, anxiety, suicide ideation, homicidal ideation, and hallucinations, Allergy/Immunology: Negative for hives, rash, and allergies, Endocrine: Negative for neck swelling, polydipsia, polyuria, polyphagia, and marked weight changes, Hematologic/Lymphatic: Negative for swollen nodes, abnormal bleeding, and unusual bruising. Exam: 18:42 Constitutional: This is a well developed, well nourished patient who is awake, alert, graciela and in no acute distress. Head/Face: Normocephalic, atraumatic. Eyes: Pupils equal round and reactive to light, extra-ocular motions intact. Lids and lashes normal. Conjunctiva and sclera are non-icteric and not injected. Cornea within normal limits. Periorbital areas with no swelling, redness, or edema. ENT: Nares patent. No nasal discharge, no septal abnormalities noted. Tympanic membranes are normal and external auditory canals are clear. Oropharynx with no redness, swelling, or masses, exudates, or evidence of obstruction, uvula midline. Mucous membranes moist. Neck: Trachea midline, no thyromegaly or masses palpated, and no cervical lymphadenopathy. Supple, full range of motion without nuchal rigidity, or vertebral point tenderness. No Meningismus. Cardiovascular: Regular rate and rhythm with a normal S1 and S2. No gallops, murmurs, or rubs. Normal PMI, no JVD. No pulse deficits. Respiratory: Lungs have equal breath sounds bilaterally, clear to auscultation and percussion. No rales, rhonchi or wheezes noted. No increased work of breathing, no retractions or nasal flaring. Abdomen/GI: Soft, non-tender, with normal bowel sounds. No distension or tympany. No guarding or rebound. No evidence of tenderness throughout. Back: No spinal tenderness. No costovertebral tenderness. Full range of motion. Female : Normal external genitalia. Skin: Warm, dry with normal turgor. Normal color with no rashes, no lesions, and no evidence of cellulitis. MS/ Extremity: Pulses equal, no cyanosis. Neurovascular intact. Full, normal range of motion. Neuro: Awake and alert, GCS 15, oriented to person, place, time, and situation. Cranial nerves II-XII grossly intact. Motor strength 5/5 in all extremities. Sensory grossly intact. Cerebellar exam normal. Normal gait. Psych: Awake, alert, with orientation to person, place and time. Behavior, mood, and affect are within normal limits. 18:42 Chest/axilla: Inspection: normal, Palpation: tenderness, that is mild, that is moderate, of the xyphoid area and mid-sternal area. Vital Signs: 17:51 BP 143 / 103; Pulse 75; Resp 18 S; Temp 97.4(TE); Pulse Ox 98% on R/A; Weight 95.25 kg aa5 (R); Height 5 ft. 11 in. (180.34 cm) (R); Pain 8/10; 19:30 BP 130 / 85; Pulse 76; Resp 18; Pulse Ox 100% on R/A; mg2 20:00 BP 131 / 90; Pulse 80; Resp 18; Pulse Ox 100% on R/A; mg2 20:54 BP 141 / 97; Pulse 76; Resp 18; Pulse Ox 100% on R/A; mg2 17:51 Body Mass Index 29.29 (95.25 kg, 180.34 cm) aa5 MDM: 18:18 Patient medically screened. [facility] 18:43 Data reviewed: vital signs, nurses notes, lab test result(s), EKG, radiologic studies, [facility] CT scan, plain films. 20:59 Data interpreted: Pulse oximetry: on room air is 100 %. Interpretation: normal. kb Counseling: I had a detailed discussion with the patient and/or guardian regarding: the historical points, exam findings, and any diagnostic results supporting the discharge/admit diagnosis, lab results, radiology results, the need for outpatient follow up, a family practitioner, to return to the emergency department if symptoms worsen or persist or if there are any questions or concerns that arise at home. 01/29 18:23 Order name: Basic Metabolic Panel; Complete Time: 19:18 graciela 01/29 18:23 Order name: CBC with Diff; Complete Time: 19:32 [facility] 01/29 18:23 Order name: LFT's; Complete Time: 19:18 01/29 18:23 Order name: Magnesium; Complete Time: 19:18 01/29 18:23 Order name: NT PRO-BNP; Complete Time: 19:18 01/29 18:23 Order name: PT-INR; Complete Time: 19:32 graciela 01/29 18:23 Order name: Troponin (emerg Dept Use Only); Complete Time: 19:18 [facility] 01/29 18:23 Order name: XRAY Chest (1 view); Complete Time: 19:18 [facility] 01/29 18:23 Order name: CT Chest, Abdomen, Pelvis - W/Contrast; Complete Time: 20:23 [facility] 01/29 18:23 Order name: Lipase; Complete Time: 19:18 [facility] 01/29 18:45 Order name: INCENTIVE SPIROMETRY 01/29 19:18 Order name: Urine Culture 01/29 19:24 Order name: Urine Dipstick--Ancillary (enter results) cm6 01/29 18:23 Order name: EKG; Complete Time: 18:24 [facility] 01/29 18:23 Order name: Cardiac monitoring; Complete Time: 18:48 [facility] 01/29 18:23 Order name: EKG - Nurse/Tech; Complete Time: 18:48 [facility] 01/29 18:23 Order name: IV Saline Lock; Complete Time: 18:48 [facility] 01/29 18:23 Order name: Labs collected and sent; Complete Time: 18:48 [facility] 01/29 18:23 Order name: O2 Per Protocol; Complete Time: 18:48 [facility] 01/29 18:23 Order name: O2 Sat Monitoring; Complete Time: 18:48 [facility] 01/29 18:23 Order name: Urine Dipstick-Ancillary (obtain specimen); Complete Time: 19:50 [facility] Administered Medications: 19:00 Drug: NS 0.9% 500 ml Route: IV; Rate: bolus; Site: right forearm; mg2 22:29 Follow up: Response: No adverse reaction; IV Status: Completed infusion; IV Intake: mg2 500ml 19:00 Drug: Benadryl 25 mg Route: IVP; Site: right forearm; mg2 20:00 Follow up: Response: No adverse reaction mg2 19:00 Drug: Pepcid 20 mg Route: IVP; Site: right forearm; mg2 20:00 Follow up: Response: No adverse reaction mg2 19:47 Drug: Rocephin 1 grams Route: IV; Rate: 1 per protocol; Site: right antecubital; rv 20:30 Follow up: Response: No adverse reaction; IV Status: Completed infusion mg2 19:47 Drug: Potassium Effervescent Tablet 25 mEq Route: PO; rv 20:30 Follow up: Response: No adverse reaction mg2 19:47 Drug: TORadol - Ketorolac 15 mg Route: IVP; Site: right antecubital; rv 20:30 Follow up: Response: No adverse reaction; Marked relief of symptoms mg2 19:50 Drug: SOLU-Medrol 125 mg Route: IVP; Site: right forearm; mg2 20:00 Follow up: Response: No adverse reaction mg2 20:06 Drug: NS 0.9% 1000 ml Route: IV; Rate: 125 ml/hr; Site: right forearm; mg2 21:00 Follow up: Response: No adverse reaction; IV Status: Order to discontinue infusion; IV mg2 Intake: 150ml Disposition: 01/30 07:33 Co-signature as Attending Physician, Jerald Perdue MD I agree with the assessment and graciela plan of care. Disposition: 01/29/19 19:19 Discharged to Home. Impression: Other chest pain, Unspecified sprain of sternum, Unspecified fracture of sternum, Sprain of ribs and sternum, Atrial fibrillation and flutter, Hypokalemia, Cardiomegaly, Urinary tract infection, site not specified. - Condition is Stable. - Discharge Instructions: Atrial Fibrillation, Chest Wall Pain, Chest Contusion, Adult, Potassium Content of Foods, Sternal Fracture, Chest Wall Pain, [id number], Urinary Tract Infection, Adult, [id number], Atrial Fibrillation, [id number], Hypokalemia. - Prescriptions for Tylenol- Codeine #3 300-30 mg Oral Tablet - take 2 tablet by ORAL route every 6 hours As needed; 30 tablet. Cipro 250 mg Oral Tablet - take 1 tablet by ORAL route every 12 hours; 14 tablet. - Medication Reconciliation Form, Thank You Letter, Antibiotic Education, Prescription Opioid Use form. - Follow up: Private Physician; When: 2 - 3 days; Reason: Recheck today's complaints, Continuance of care, Re-evaluation by your physician. - Problem is new. - Symptoms have improved. Signatures: Dispatcher [employer] EDAL ChrissGuanakitoDenise, CREDIT AND LOAN COLLECTIONS SUPERVISOR-C CREDIT AND LOAN COLLECTIONS SUPERVISOR-CkJerald Dillon MD MD cha Calderon, Audri RN RN aa5 Gilberto George, RN RN mg2 Ernesto Rangel RN RN rv Corrections: (The following items were deleted from the chart) 01/29 21:11 19:19 01/29/2019 19:19 Discharged to Home. Impression: Other chest pain; Unspecified mg2 sprain of sternum; Unspecified fracture of sternum; Sprain of ribs and sternum; Atrial fibrillation and flutter; Hypokalemia; Cardiomegaly; Urinary tract infection, site not specified. Condition is Stable. Discharge Instructions: Chest Wall Pain, Chest Contusion, Adult, Sternal Fracture, Chest Wall Pain, [id number]. Prescriptions for Tylenol-Codeine #3 300-30 mg Oral Tablet - take 2 tablet by ORAL route every 6 hours As needed; 30 tablet. and Forms are Medication Reconciliation Form, Thank You Letter, Antibiotic Education, Prescription Opioid Use. Follow up: Private Physician; When: 2 - 3 days; Reason: Recheck today's complaints, Continuance of care, Re-evaluation by your physician. Problem is new. Symptoms have improved. graciela
[2019-01-29 19:27] LABS: Protime INR 1.12
[2019-01-29] MEDS ORDERED: CEFTRIAXONE/SWI 1gm 1 GM/10 ML SYR ONE (19:32)
[2019-01-29] MEDS ORDERED: POTASSIUM 25 MEQ EFFERV TAB ONE (19:32)
[2019-01-29] MEDS ORDERED: KETOROLAC 30 MG/ML INJ ONE (19:43)
--- NOTE | 2019-01-29 20:11 | RAD REPORT ---
EXAM DESCRIPTION: CT - Chest Abdomen Pelvis W Cont - 01/29/2019 7:58 pm CLINICAL HISTORY: Fall, chest, abdomen and pelvic pain COMPARISON: None. TECHNIQUE: Following dynamic enhancement using 100 milliliters nonionic IV contrast, axial imaging o f the chest, abdomen and pelvis was performed. Biphasic technique was utilized through the abdomen. Oral contrast was administered. All CT scans are performed using dose optimization technique as appropriate and may include automated exposure control or mA/KV adjustment according to patient size. FINDINGS: Emphysema changes are present throughout the lung giron. No pulmonary contusion, mass or infiltrate. No pleural effusion, pleural thickening or pneumothorax. No significant aortic or pulmona ry arterial tree finding. Mediastinal and hilar regions show no mass or abnormal lymphadenopathy. No chest wall mass or axillary lymphadenopathy. Cardiomegaly is present primarily biatrial enlargement. No pericardial effusion. The liver, spleen and pancreas show no suspicious findings. Gallbladder and biliary tree are unremark able. Gallstones can be occult on CT imaging. Symmetric renal function is seen with no mass or hydro nephrosis. No adrenal abnormalities. No bladder abnormality. Uterus and ovaries show no suspicious fi ndings. No dilated bowel loops or focal bowel wall thickening. No acute GI findings seen. No acute vascular finding. The sternum fracture is present. This is seen as buckling of the inner and outer cortical margins. No displacement. No displaced rib fractures are present. Thoracolumbar degenerative and scoliotic garcia es are present. No acute compression fracture. No fracture of the pelvis. IMPRESSION: Nondisplaced sternum fracture is present.No associated hematoma superficial or deep to t he sternum. Emphysema changes are present with no acute lung parenchymal process. Cardiomegaly primarily biatrial enlargement.
[2019-01-29 21:23] VITALS: O2SAT 100
[2019-01-29 21:28] VITALS: BP 141/97
[2019-01-29 21:52] LABS: Urine Blood 2+ (NEG); Urine Glucose NEGATIVE (NEG); Urine Protein NEGATIVE (NEG); Urine Specific Gravity 1.015 (1.005-1.030)
--- NOTE | 2019-01-30 09:58 | EKG ---
Test Date: 2019-01-29 Test Time: 18:48:16 Assembly Machine Offbearer: MG MEASUREMENT RESULTS: Intervals: Rate: 79 MD: QRSD: 96 QT: 406 QTc: 465 [place]: P: MD: QRS: 39 T: 224 INTERPRETIVE STATEMENTS: Atrial fibrillation with premature ventricular or aberrantly conducted complexes Nonspecific ST and T wave abnormality Abnormal ECG Compared to ECG 07/29/2018 20:13:16 Ventricular premature complex(es) now present Prolonged QT interval no longer present ST (T wave) deviation still present Electronically Signed On 01-30-19 09:57:14 CDT by Dilip Ash
[2019-01-30 21:47] VITALS: TEMP 97.4
== END 2019-01-29 21:11 | disposition home or self-care (01) ==
LOC: ER 17:40
DX: S22.20XA Unspecified fracture of sternum, initial encounter for closed fracture (principal); S23.41XA Sprain of ribs, initial encounter; N39.0 Urinary tract infection, site not specified; E87.6 Hypokalemia; I51.7 Cardiomegaly; I48.91 Unspecified atrial fibrillation; I48.92 Unspecified atrial flutter; W19.XXXA Unspecified fall, initial encounter; Z72.0 Tobacco use; Z79.01 Long term (current) use of anticoagulants; Z88.3 Allergy status to other anti-infective agents; Z88.8 Allergy status to other drugs, medicaments and biological substances; I10 Essential (primary) hypertension; I50.9 Heart failure, unspecified
CPT/HCPCS: 87088; 85025; 87086; 80048; 36415; 83735; 85610; 80076; 81003; 84484; 83690; 83880; 71260; 74177; 71045; Q9967; J1200; J0696; J7030; J2930; 93005

== ENCOUNTER 2019-02-16 08:10 | Emergency (ER) | payer OTHER ==
--- OUTSIDE RECORDS SUMMARY | 2019-02-16 08:12 | XMS REPORT ---
:1955 [facility] Address [address] [place] [address] Dr. Neumann [address] [place] [id number] Care Team Providers Name Role Phone Unavailable Unavailable Unavailable Problems This patient has no known problems. Allergies, Adverse Reactions, Alerts This patient has no known allergies or adverse reactions. Medications This patient has no known medications.
[2019-02-16 08:37] LABS: Absolute Lymphocytes (CBC) 1.3 K/uL (0.7-4.9); Basophils % 0.6 % (0-1.3); Hematocrit 37.9 % (36.0-45.0); MPV 8.6 fL (7.6-11.3); RBC Red Blood Cell Count 3.96 M/uL (3.86-4.86)
[2019-02-16 08:38] LABS: Protime INR 1.34
[2019-02-16 08:52] LABS: ALT/SGPT 52 U/L (12-78); AST/SGOT 32 U/L (15-37); Alkaline Phosphatase 98 U/L (45-117); BUN Blood Urea Nitrogen 13 mg/dL (7-18); Bicarbonate 31 mmol/L (21-32); Bilirubin Direct 0.2 mg/dL (0-0.2); Bilirubin Total 0.6 mg/dL (0.2-1.0); Glucose Level 136 mg/dL (74-106); Magnesium 2.2 mg/dL (1.8-2.4); NT PRO-BNP 2101 pg/mL (<125); Potassium 3.2 mmol/L (3.5-5.1); Protein, Total 7.9 g/dL (6.4-8.2); Sodium Level 140 mmol/L (136-145); Troponin (Emerg Dept Use Only) < 0.02 ng/mL (0.0-0.045)
--- NOTE | 2019-02-16 09:07 | RAD REPORT ---
EXAM DESCRIPTION: RAD - Chest Single View - 02/16/2019 8:41 am CLINICAL HISTORY: Palpitations, arrhythmia COMPARISON: December 2018 TECHNIQUE: AP portable chest image was obtained 0830 hours . FINDINGS: No focal mass or consolidation. Interstitial pattern is prominent but not substantially di fferent. Vasculature is similar to comparison. Cardiomegaly is present similar to the prior study. Tr achea is midline. No measurable pleural effusion and no pneumothorax. No acute bony abnormality seen. No acute aortic findings suspected. IMPRESSION: Cardiomegaly and mild prominence of the interstitial pattern. Findings are stable from p rior imaging. Mild failure, volume overload or edema could be masked in this setting.
--- NOTE | 2019-02-16 09:26 | ER ---
Nurse's Notes [facility] Name: Celsa Lorenzo Age: 64 yrs Sex: Female : 1955 Arrival Date: 02/16/2019 Time: 08:11 Bed 6 Private MD: Diagnosis: Atrial fibrillation and flutter;Hypokalemia;Unspecified combined systolic (congestive) and diastolic (congestive) heart failure Presentation: 02/16 08:24 Presenting complaint: Patient states: PALPITATIONS \T\ 0600, H/O AFIB/RVR. Transition of bp care: patient was not received from another setting of care. Onset of symptoms was February 16, 2019 at 06:00. Risk Assessment: Do you want to hurt yourself or someone else? Patient reports no desire to harm self or others. Initial Sepsis Screen: Does the patient meet any 2 criteria? HR > 90 bpm. No. Patient's initial sepsis screen is negative. Does the patient have a suspected source of infection? No. Patient's initial sepsis screen is negative. Care prior to arrival: None. 08:24 Method Of Arrival: Ambulatory bp 08:24 Acuity: MAXIMO 2 bp Triage Assessment: 08:34 General: Appears in no apparent distress. comfortable, Behavior is cooperative, bp appropriate for age, anxious. Pain: Denies pain. EENT: No deficits noted. Neuro: No deficits noted. Cardiovascular: Rhythm is atrial fibrillation. Respiratory: No deficits noted. GI: No signs and/or symptoms were reported involving the gastrointestinal system. : No signs and/or symptoms were reported regarding the genitourinary system. Derm: No deficits noted. Musculoskeletal: No deficits noted. Historical: - Allergies: 08:28 Iodine; Topical only; bp 08:28 Betadine; bp - Home Meds: 08:28 Eliquis 5 mg Oral tab 1 tab 2 times per day [Active]; Wellbutrin 150mg Oral 1 tab daily bp [Active]; digoxin 125 mcg Oral tab 1 tab once daily [Active]; Lasix 40 mg Oral tab 20mg at night [Active]; KCL 20 mEq daily [Active]; meloxicam 15 mg Oral tab 1 tab once daily [Active]; Zoloft 50 mg Oral tab 1 tab once daily [Active]; sotalol 120 mg Oral tab 1 tab 2 times per day [Active]; Xeljanz Oral [Active]; - PMHx: 08:28 Rheumatoid Arthritis; mitral valve stenosis; Atrial Fib; CHF; COPD; Hypertension; bp pulmonary HTN; resp failure; cardioversion; - Immunization history:: Adult Immunizations up to date. - Social history:: Smoking status: unknown. - Ebola Screening: : No symptoms or risks identified at this time. - Family history:: not pertinent. Screenin:39 Abuse screen: Denies threats or abuse. Denies injuries from another. Nutritional bp screening: No deficits noted. Tuberculosis screening: No symptoms or risk factors identified. Fall Risk None identified. Assessment: 08:39 General: SEE TRIAGE NOTE. bp 08:57 Reassessment:. Cardiovascular: Rhythm is atrial fibrillation. bp 10:43 Reassessment: DR PERALTA AT B/S, PT REMAINS IN AFIB. bp 11:10 Reassessment: Patient states feeling better. Patient states symptoms have improved. bp 11:20 Reassessment: PT D/C HOME AMBULATORY WITH FAMILY, DX WITH ATRIAL FIB. bp Vital Signs: 08:28 BP 121 / 79; Pulse 93; Resp 14; Temp 98; Pulse Ox 100% ; Weight 95.25 kg; Height 5 ft. bp 10 in. (177.80 cm); 08:57 BP 125 / 70; Pulse 83; Resp 15; Pulse Ox 100% ; bp 10:24 BP 144 / 91; Pulse 88; Resp 20; Pulse Ox 99% ; bp 11:09 BP 113 / 92; Pulse 98; Resp 20; Pulse Ox 99% ; bp 11:19 BP 139 / 90; Pulse 95; Resp 18; Temp 98; Pulse Ox 98% ; bp 08:28 Body Mass Index 30.13 (95.25 kg, 177.80 cm) bp ED Course: 08:11 Patient arrived in ED. as 08:12 Jerald Perdue MD is Attending Physician. graciela 08:13 Arm band placed on Patient placed in an exam room, on a stretcher. aa5 08:15 Daron Thayer, EDWINA is Primary Nurse. bp 08:17 EKG completed in triage. Results shown to . aa5 08:25 Triage completed. bp 08:39 Patient has correct armband on for positive identification. Bed in low position. Call bp light in reach. Side rails up X2. Adult w/ patient. 08:39 Inserted saline lock: 22 gauge in right forearm, using aseptic technique. Blood bp collected. 08:41 XRAY Chest (1 view) In Process Unspecified. EDMS 09:22 Orlando Rivera MD is Hospitalizing Provider. graciela 11:19 No provider procedures requiring assistance completed. IV discontinued, intact, bp bleeding controlled, No redness/swelling at site. Pressure dressing applied. Administered Medications: 09:25 Drug: Sotalol 80 mg Route: PO; bp 10:25 Follow up: Response: No adverse reaction bp 09:25 Drug: Potassium Effervescent Tablet 25 mEq Route: PO; bp 10:25 Follow up: Response: No adverse reaction bp 09:25 Drug: Lasix 20 mg Route: IVP; Site: right antecubital; bp 10:25 Follow up: Response: No adverse reaction bp 09:25 Drug: Sotalol 40 mg Route: PO; bp 11:03 Follow up: Response: No adverse reaction bp 10:45 Drug: Digoxin 0.25 mg Route: IVP; Site: right antecubital; bp 11:18 Follow up: Response: No adverse reaction bp 10:45 Drug: Potassium Effervescent Tablet 25 mEq Route: PO; bp 11:18 Follow up: Response: No adverse reaction bp Outcome: 09:25 Decision to Hospitalize by Provider. graciela 11:13 Discharge ordered by . graciela 11:25 Discharged to home ambulatory, with family. bp 11:25 Condition: stable 11:25 Discharge instructions given to patient, Instructed on discharge instructions, follow up and referral plans. medication usage, Demonstrated understanding of instructions, follow-up care, medications, Prescriptions given X 1. 11:25 Patient left the ED. bp Signatures: Dispatcher [employer] EDMS Jerald Perdue MD MD cha Martinez, Amelia as Calderon, Audri, RN RN aa5 Daron Thayer RN RN bp
--- NOTE | 2019-02-16 09:26 | EDPHYS ---
Physician Documentation [facility] Name: Celsa Lorenzo Age: 64 yrs Sex: Female : 1955 Arrival Date: 02/16/2019 Time: 08:11 Bed 6 Private MD: RUTHANN Physician Jerald Perdue HPI: 02/16 08:44 This 64 yrs old Female presents to ER via Ambulatory with complaints of AFib. graciela 08:44 The patient has shortness of breath at rest, with light activity. Onset: The graciela symptoms/episode began/occurred yesterday. Duration: The symptoms are chronic. The patient's shortness of breath has no apparent modifying factors. The patient presents with a history of heart racing, heart skipping beats. Context: The symptoms occur at rest. Onset: The symptoms/episode began/occurred 2 day(s) ago. Modifying factors: The symptoms are aggravated by nothing. The symptoms are alleviated by remaining still, rest. Associated signs and symptoms: The patient has no apparent associated signs or symptoms. Historical: - Allergies: 08:28 Iodine; Topical only; bp 08:28 Betadine; bp - Home Meds: 08:28 Eliquis 5 mg Oral tab 1 tab 2 times per day [Active]; Wellbutrin 150mg Oral 1 tab daily bp [Active]; digoxin 125 mcg Oral tab 1 tab once daily [Active]; Lasix 40 mg Oral tab 20mg at night [Active]; KCL 20 mEq daily [Active]; meloxicam 15 mg Oral tab 1 tab once daily [Active]; Zoloft 50 mg Oral tab 1 tab once daily [Active]; sotalol 120 mg Oral tab 1 tab 2 times per day [Active]; Xeljanz Oral [Active]; - PMHx: 08:28 Rheumatoid Arthritis; mitral valve stenosis; Atrial Fib; CHF; COPD; Hypertension; bp pulmonary HTN; resp failure; cardioversion; - Immunization history:: Adult Immunizations up to date. - Social history:: Smoking status: unknown. - Ebola Screening: : No symptoms or risks identified at this time. - Family history:: not pertinent. ROS: 08:44 Constitutional: Negative for fever, chills, and weight loss, Eyes: Negative for injury, graciela pain, redness, and discharge, ENT: Negative for injury, pain, and discharge, Neck: Negative for injury, pain, and swelling, Cardiovascular: Negative for chest pain, palpitations, and edema, Abdomen/GI: Negative for abdominal pain, nausea, vomiting, diarrhea, and constipation, Back: Negative for injury and pain, : Negative for injury, bleeding, discharge, and swelling, MS/Extremity: Negative for injury and deformity, Skin: Negative for injury, rash, and discoloration, Neuro: Negative for headache, weakness, numbness, tingling, and seizure, Psych: Negative for depression, anxiety, suicide ideation, homicidal ideation, and hallucinations, Allergy/Immunology: Negative for hives, rash, and allergies, Endocrine: Negative for neck swelling, polydipsia, polyuria, polyphagia, and marked weight changes, Hematologic/Lymphatic: Negative for swollen nodes, abnormal bleeding, and unusual bruising. 08:44 Respiratory: Positive for cough, shortness of breath, at rest. Exam: 08:44 Constitutional: This is a well developed, well nourished patient who is awake, alert, graciela and in no acute distress. Head/Face: Normocephalic, atraumatic. Eyes: Pupils equal round and reactive to light, extra-ocular motions intact. Lids and lashes normal. Conjunctiva and sclera are non-icteric and not injected. Cornea within normal limits. Periorbital areas with no swelling, redness, or edema. ENT: Nares patent. No nasal discharge, no septal abnormalities noted. Tympanic membranes are normal and external auditory canals are clear. Oropharynx with no redness, swelling, or masses, exudates, or evidence of obstruction, uvula midline. Mucous membranes moist. Neck: Trachea midline, no thyromegaly or masses palpated, and no cervical lymphadenopathy. Supple, full range of motion without nuchal rigidity, or vertebral point tenderness. No Meningismus. Chest/axilla: Normal chest wall appearance and motion. Nontender with no deformity. No lesions are appreciated. Respiratory: Lungs have equal breath sounds bilaterally, clear to auscultation and percussion. No rales, rhonchi or wheezes noted. No increased work of breathing, no retractions or nasal flaring. Abdomen/GI: Soft, non-tender, with normal bowel sounds. No distension or tympany. No guarding or rebound. No evidence of tenderness throughout. Back: No spinal tenderness. No costovertebral tenderness. Full range of motion. Female : Normal external genitalia. Skin: Warm, dry with normal turgor. Normal color with no rashes, no lesions, and no evidence of cellulitis. MS/ Extremity: Pulses equal, no cyanosis. Neurovascular intact. Full, normal range of motion. Neuro: Awake and alert, GCS 15, oriented to person, place, time, and situation. Cranial nerves II-XII grossly intact. Motor strength 5/5 in all extremities. Sensory grossly intact. Cerebellar exam normal. Normal gait. Psych: Awake, alert, with orientation to person, place and time. Behavior, mood, and affect are within normal limits. 08:44 Cardiovascular: Rate: tachycardic, Rhythm: irregularly irregular, Pulses: Pulses are 4+ in bilateral radial, brachial, femoral, popliteal, posterior tibial and and dorsalis pedis arteries.. Heart sounds: normal, Edema: is not appreciated, JVD: is not appreciated. Vital Signs: 08:28 BP 121 / 79; Pulse 93; Resp 14; Temp 98; Pulse Ox 100% ; Weight 95.25 kg; Height 5 ft. bp 10 in. (177.80 cm); 08:57 BP 125 / 70; Pulse 83; Resp 15; Pulse Ox 100% ; bp 10:24 BP 144 / 91; Pulse 88; Resp 20; Pulse Ox 99% ; bp 11:09 BP 113 / 92; Pulse 98; Resp 20; Pulse Ox 99% ; bp 11:19 BP 139 / 90; Pulse 95; Resp 18; Temp 98; Pulse Ox 98% ; bp 08:28 Body Mass Index 30.13 (95.25 kg, 177.80 cm) bp MDM: 08:13 Patient medically screened. [facility] 08:46 Data reviewed: vital signs, nurses notes, lab test result(s), EKG, radiologic studies, graciela plain films. 02/16 08:24 Order name: Basic Metabolic Panel; Complete Time: 09:18 bp 02/16 08:24 Order name: CBC with Diff; Complete Time: 09:18 bp 02/16 08:24 Order name: LFT's; Complete Time: 09:18 bp 02/16 08:24 Order name: Magnesium; Complete Time: 09:18 bp 02/16 08:24 Order name: NT PRO-BNP; Complete Time: 09:18 bp 02/16 08:24 Order name: PT-INR; Complete Time: 09:18 bp 02/16 08:24 Order name: Troponin (emerg Dept Use Only); Complete Time: 09:18 bp 02/16 08:24 Order name: XRAY Chest (1 view); Complete Time: 09:18 bp 02/16 08:42 Order name: TSH; Complete Time: 09:18 graciela 02/16 09:31 Order name: Digoxin; Complete Time: 10:40 graciela 02/16 08:24 Order name: EKG; Complete Time: 08:24 bp 02/16 08:24 Order name: Cardiac monitoring; Complete Time: 08:33 bp 02/16 08:24 Order name: EKG - Nurse/Tech; Complete Time: 08:33 bp 02/16 08:24 Order name: IV Saline Lock; Complete Time: 08:33 bp 02/16 08:24 Order name: Labs collected and sent; Complete Time: 08:34 bp 02/16 08:24 Order name: O2 Per Protocol; Complete Time: 08:34 bp 02/16 08:24 Order name: O2 Sat Monitoring; Complete Time: 08:34 bp 02/16 10:02 Order name: CONS Pharmacy Consult EDMS 02/16 10:03 Order name: Heart Healthy EDMS Administered Medications: 09:25 Drug: Sotalol 80 mg Route: PO; bp 10:25 Follow up: Response: No adverse reaction bp 09:25 Drug: Potassium Effervescent Tablet 25 mEq Route: PO; bp 10:25 Follow up: Response: No adverse reaction bp 09:25 Drug: Lasix 20 mg Route: IVP; Site: right antecubital; bp 10:25 Follow up: Response: No adverse reaction bp 09:25 Drug: Sotalol 40 mg Route: PO; bp 11:03 Follow up: Response: No adverse reaction bp 10:45 Drug: Digoxin 0.25 mg Route: IVP; Site: right antecubital; bp 11:18 Follow up: Response: No adverse reaction bp 10:45 Drug: Potassium Effervescent Tablet 25 mEq Route: PO; bp 11:18 Follow up: Response: No adverse reaction bp Disposition: 02/16/19 11:13 Discharged to Home. Impression: Atrial fibrillation and flutter, Hypokalemia, Unspecified combined systolic (congestive) and diastolic (congestive) heart failure. - Condition is Stable. - Discharge Instructions: Atrial Fibrillation, Heart Failure, Potassium Content of Foods, Heart Failure, [id number], Atrial Fibrillation, [id number], Hypokalemia. - Medication Reconciliation Form, Thank You Letter, Antibiotic Education, Prescription Opioid Use form. - Follow up: Private Physician; When: 2 - 3 days; Reason: Recheck today's complaints, Continuance of care, Re-evaluation by your physician. - Problem is new. - Symptoms have improved. Signatures: Dispatcher [employer] EDMS Jerald Perdue MD MD cha Peltier, Brian, RN RN bp Corrections: (The following items were deleted from the chart) 11:09 09:25 Hospitalization Ordered by Orlando Rivera MD for Inpatient Admission. Preliminary graciela diagnosis is Unspecified combined systolic (congestive) and diastolic (congestive) heart failure; Atrial fibrillation and flutter - rvr; Cardiomegaly; Hypokalemia. Bed requested for Telemetry/MedSurg (Inpatient). Status is Inpatient Admission. Condition is Fair. Problem is an acute exacerbation. Symptoms have improved. UTI on Admission? No. graciela 11:25 11:13 02/16/2019 11:13 Discharged to Home. Impression: Atrial fibrillation and flutter; bp Hypokalemia; Unspecified combined systolic (congestive) and diastolic (congestive) heart failure. Condition is Stable. Forms are Medication Reconciliation Form, Thank You Letter, Antibiotic Education, Prescription Opioid Use. Follow up: Private Physician; When: 2 - 3 days; Reason: Recheck today's complaints, Continuance of care, Re-evaluation by your physician. Problem is new. Symptoms have improved. graciela
[2019-02-16] MEDS ORDERED: FUROSEMIDE 20 MG/ 2ML VIAL ONE (09:32)
[2019-02-16] MEDS ORDERED: POTASSIUM 25 MEQ EFFERV TAB ONE ×2 (09:32→10:57)
[2019-02-16] MEDS ORDERED: SOTALOL HCL 80 MG TAB ONE ×2 (09:32→09:35)
[2019-02-16] MEDS ORDERED: MORPHINE 2 MG/ML SYR IV PRN (09:58)
[2019-02-16] MEDS ORDERED: ACETAMINOPHEN 500 MG TAB PO PRN (09:58)
[2019-02-16] MEDS ORDERED: ONDANSETRON 4 MG/2 ML VIAL IV PRN (09:58)
[2019-02-16] MEDS ORDERED: FLUTICASONE IH PRN (10:26)
[2019-02-16] MEDS ORDERED: ALBUTEROL INHALER 60 PUFF/8 GM IH PRN (10:26)
[2019-02-16] MEDS ORDERED: HOME MED 1 EA UNK (Melatonin [Melatonin] 10 MG) PO PRN (10:26)
[2019-02-16] MEDS ORDERED: SALMETEROL IH PRN (10:26)
[2019-02-16] MEDS ORDERED: METOPROLOL TARTRATE 5 MG/5 ML INJ IV PRN (10:26)
--- NOTE | 2019-02-16 10:30 | P.HP ---
Certification for Inpatient Patient admitted to: Observation With expected LOS: <2 Midnights Patient will require the following post-hospital care: None Practitioner: I am a practitioner with admitting privileges, knowledge of patient current condition, hospital course, and medical plan of care. Services: Services provided to patient in accordance with Admission requirements found in Title 42 Section 412.3 of the Code of Federal Regulations Patient History Date of Service: 02/16/19 Reason for admission: palpitation and Dizziness History of Present Illness: 64-year-old female past medical history of rheumatic heart disease , mitral stenosis, AFib, CHF, hypertension came to ER with palpitation and dizziness, which started all of a sudden and was progressively worsening . denies any loss of consciousness, patient states that she had some chest discomfort with a heaviness and palpitation, no fever no chills. Denies any other modifying factors. Patient was assessed in the ER and was found to have AFib with RVR and was admitted for further management. At that time of interview heart rate is 70s rate controlled well She denies any chest discomfort. Allergies iodine Allergy (Verified 04/20/17 21:14) Unknown Home medications list reviewed: Yes Home Medications: Albuterol Sulfate [Proair Hfa] 8.5 gm IH TID PRN #90 hfa.aer.[email or web address] 04/25/17 Bupropion HCl [Wellbutrin] 150 mg PO DAILY 06/25/17 Digoxin [Lanoxin] 125 mcg PO DAILY 06/25/17 Fluticasone/Salmeterol [Airduo Respiclick 113-14 Mcg] 1 each IH BID PRN Sertraline [Zoloft*] 50 mg PO DAILY 06/25/17 Sotalol HCl [Betapace*] 120 mg PO BID 06/25/17 Tofacitinib Citrate [Xeljanz Xr] 11 mg PO DAILY 06/25/17 Apixaban [Eliquis *] 5 mg PO BID 07/29/18 Melatonin 10 mg PO BEDTIME PRN 07/29/18 predniSONE [Prednisone*] 2.5 mg PO SEECOM 07/29/18 Furosemide [Lasix*] 40 mg PO BID #60 tab 07/30/18 - Past Medical/Surgical History Has patient received pneumonia vaccine in the past: Yes Diabetic: No Past Medical History: Reviewed- Non-Contributory -: Chronic atrial fibrillation, chronic anti coagulation therapy -: Rheumatoid arthritis -: Hypertension -: Systolic CHF -: Mitral valve stenosis -: COPD -: Former tobacco use -: resp failure Past Surgical History: Reviewed- Non-Contributory -: tonsillectomy -: c- section -: appendectomy -: tubal ligation Psychosocial/ Personal History: Patient is - Family History Family History: Reviewed- Non-Contributory - Social History Smoking Status: Current every day smoker Alcohol use: No CD- Drugs: No Caffeine use: No Review of Systems 10-point ROS is otherwise unremarkable General: Unremarkable Eyes: Other (Dizziness ) ENT: Unremarkable Respiratory: Shortness of Breath, Unremarkable Cardiovascular: Chest Pain, Palpitations, Light Headedness Gastrointestinal: Nausea Physical Examination - Vital Signs Temperature: 98 F Blood Pressure: 121/79 Pulse: 93 Pulse Ox (%): 98 - Physical Exam General: Alert, In no apparent distress, Oriented x3 HEENT: Atraumatic, Normocephalic Neck: Supple Respiratory: Clear to auscultation bilaterally, Normal air movement Cardiovascular: Irregular heart rate/rhythm, Systolic murmur, Diastolic murmur Capillary refill: <2 Seconds Gastrointestinal: Soft and benign, W/out hepatosplenomegaly Musculoskeletal: No clubbing, Swelling Integumentary: No rashes, No breakdown Neurological: Normal speech, Normal strength at 5/5 x4 extr Lymphatics: No axilla or inguinal lymphadenopathy Urinary: Other (No bladder distention) External genitalia: Deferred Rectal: Deferred - Studies Laboratory Data (last 24 hrs) 02/16/19 08:25: PT 15.6 H, INR 1.34 02/16/19 08:25: WBC 8.4, Hgb 12.6, Hct 37.9, Plt Count 221 02/16/19 08:25: Sodium 140, Potassium 3.2 L, BUN 13, Creatinine 0.79, Glucose 136 H, Magnesium 2.2, Total Bilirubin 0.6, AST 32, ALT 52, Alkaline Phosphatase 98 Assessment and Plan - Problems (Diagnosis) (1) Atrial fibrillation with RVR Onset Date: 04/23/17 Status: Acute Plan: AFib with RVR will monitor under telemetry Beta-kenn metoprolol p.r.n. Cardiology consult Patient is on blood thinner Will continue anticoagulation (2) COPD (chronic obstructive pulmonary disease) Onset Date: 06/25/17 Status: Chronic Plan: (continue Home medications and titrate as needed Qualifiers: COPD type: COPD with acute exacerbation Qualified Code(s): J44.1 - Chronic obstructive pulmonary disease with (acute) exacerbation (3) Chest pain Onset Date: 06/25/17 Status: Acute Plan: Will monitor under telemetry Will trend cardiac enzymes Aspirin, statin Will get a lipid panel Will get a TSH level monitor electrolytes Qualifiers: Chest pain type: precordial pain Qualified Code(s): R07.2 - Precordial pain (4) Moderate mitral stenosis Onset Date: 06/25/17 Status: Chronic Plan: Continue to monitor closely under telemetry Continue home medications and titrate as needed May need outpatient CT surgery evaluation (5) CHF (congestive heart failure) Status: Acute Plan: Acute on chronic systolic/diastolic CHF Start on diuretics Monitor closely under telemetry Qualifiers: Qualified Code(s): I50.33 - Acute on chronic diastolic (congestive) heart failure (6) HTN (hypertension) Onset Date: 04/23/17 Status: Chronic Plan: continue Home medications and titrate as needed Qualifiers: Hypertension type: essential hypertension Qualified Code(s): I10 - Essential (primary) hypertension (7) Obesity Status: Chronic Plan: lifestyle modification Qualifiers: Obesity type: due to excess calories Obesity classification: adult class 1 (BMI 30 - 34.9) Serious obesity comorbidity presence: with serious comorbidity Body mass index: BMI 31.0-31.9 Qualified Code(s): E66.09 - Other obesity due to excess calories; Z68.31 - Body mass index (BMI) 31.0-31.9, adult; Z68.31 - Body mass index (BMI) 31.0-31.9, adult Discharge Plan: Home Plan to discharge in: 24 Hours - Advance Directives Does patient have a Living Will: No Does patient have a Durable POA for Healthcare: No Time Spent Managing Pts Care (In Minutes): 42
[2019-02-16] MEDS ORDERED: DIGOXIN 0.25 MG/ML AMP ONE (10:57)
[2019-02-16] MEDS ORDERED: predniSONE 5 MG TAB PO SCH (11:00)
[2019-02-16 11:38] VITALS: TEMP 98
[2019-02-16 11:43] VITALS: O2SAT 98
[2019-02-16 12:05] VITALS: BP 121/79
[2019-02-16] MEDS ORDERED: FUROSEMIDE 20 MG/ 2ML VIAL IV SCH (17:00)
[2019-02-16] MEDS ORDERED: SOTALOL HCL 80 MG TAB PO SCH (21:00)
[2019-02-16] MEDS ORDERED: APIXABAN 2.5 MG TABLET PO SCH (21:00)
--- NOTE | 2019-02-17 07:08 | EKG ---
Test Date: 2019-02-16 Test Time: 08:17:43 Funeral Attendant: MARTHA MEASUREMENT RESULTS: Intervals: Rate: 110 UT: QRSD: 84 QT: 280 QTc: 378 [place]: P: UT: QRS: 41 T: 214 INTERPRETIVE STATEMENTS: Atrial fibrillation with rapid ventricular response ST & T wave abnormality, consider inferior ischemia ST & T wave abnormality, consider anterolateral ischemia Abnormal ECG Compared to ECG 01/29/2019 18:48:16 Possible ischemia now present Ventricular premature complex(es) no longer present ST (T wave) deviation still present Electronically Signed On 02-17-19 07:07:53 BOW REHAIRER by Jak Guzman
[2019-02-17] MEDS ORDERED: DIGOXIN 0.125 MG TABLET PO SCH (09:00)
[2019-02-17] MEDS ORDERED: BUPROPION HCL 150 MG PO SCH (09:00)
[2019-02-17] MEDS ORDERED: SERTRALINE HCL 50 MG TAB PO SCH (09:00)
[2019-02-17] MEDS ORDERED: TOFACITINIB CITRATE 11 MG PO SCH (09:00)
== END 2019-02-16 11:25 | disposition home or self-care (01) ==
LOC: ER 08:10 → ERHOLD 09:59 → UNDOADMIN 09:59
DX: I48.91 Unspecified atrial fibrillation (principal); I48.92 Unspecified atrial flutter; E87.6 Hypokalemia; I50.41 Acute combined systolic (congestive) and diastolic (congestive) heart failure
CPT/HCPCS: 93005; 85025; 80048; 36415; 83735; 85610; 80162; 80076; 84443; 84484; 83880; 71045; 96375; 96374; 99284; J1940; J1160

== ENCOUNTER 2019-03-27 07:45 | Emergency (ER) | payer OTHER ==
--- OUTSIDE RECORDS SUMMARY | 2019-03-27 07:47 | XMS REPORT ---
:1955 [facility] Address [address] [place] [address] Dr. Neumann [address] [place] [id number] Care Team Providers Name Role Phone Unavailable Unavailable Unavailable Problems This patient has no known problems. Allergies, Adverse Reactions, Alerts This patient has no known allergies or adverse reactions. Medications This patient has no known medications.
[2019-03-27] MEDS ORDERED: MAGNESIUM SULFATE 1 gm IVPB 1 GM/100 ML BAG IV ONE (08:14)
[2019-03-27] MEDS ORDERED: LEVALBUTEROL 1.25 MG/3 ML NEB ONE ×2 (08:14→09:57)
[2019-03-27] MEDS ORDERED: IPRATROPIUM BROM 0.5MG/2.5ML ONE (08:14)
[2019-03-27] MEDS ORDERED: METHYLPREDNISOLONE 125 MG INJ ONE (08:14)
[2019-03-27 08:45] LABS: Basophils % 0.3 % (0-1.3); Hematocrit 39.7 % (36.0-45.0); Lymphocytes % 10.8 % (15.3-44.8); MPV 8.8 fL (7.6-11.3); RBC Red Blood Cell Count 4.15 M/uL (3.86-4.86)
[2019-03-27 08:48] LABS: Protime INR 1.11
[2019-03-27 09:10] LABS: ALT/SGPT 30 U/L (12-78); AST/SGOT 32 U/L (15-37); Albumin 3.9 g/dL (3.4-5.0); Alkaline Phosphatase 82 U/L (45-117); BUN Blood Urea Nitrogen 13 mg/dL (7-18); Bicarbonate 29 mmol/L (21-32); Bilirubin Direct 0.2 mg/dL (0-0.2); Bilirubin Total 0.7 mg/dL (0.2-1.0); Glucose Level 112 mg/dL (74-106); Magnesium 2.2 mg/dL (1.8-2.4); NT PRO-BNP 1673 pg/mL (<125); Potassium 3.6 mmol/L (3.5-5.1); Protein, Total 7.9 g/dL (6.4-8.2); Sodium Level 137 mmol/L (136-145); Troponin (Emerg Dept Use Only) < 0.02 ng/mL (0.0-0.045)
--- NOTE | 2019-03-27 09:24 | RAD REPORT ---
EXAM DESCRIPTION: RAD - Chest Single View - 03/27/2019 9:06 am CLINICAL HISTORY: COPD Chest pain. COMPARISON: Chest Single View dated 02/16/2019; Chest Single View dated 01/29/2019; Chest Single Vie w dated 01/24/2019; Chest Pa And Lat (2 Views) dated 07/30/2018 FINDINGS: Portable technique limits examination quality. The lungs are grossly clear. The heart is moderately enlarged. No displaced fractures. IMPRESSION: No acute intrathoracic process suspected.
[2019-03-27] MEDS ORDERED: FUROSEMIDE 20 MG/ 2ML VIAL ONE (09:57)
--- NOTE | 2019-03-27 10:40 | ER ---
Nurse's Notes [facility] Name: Celsa Lorenzo Age: 64 yrs Sex: Female : 1955 Arrival Date: 03/27/2019 Time: 07:46 Bed 8 Private MD: Diagnosis: Chronic obstructive pulmonary disease with (acute) exacerbation Presentation: 03/27 07:59 Presenting complaint: Patient states: SOB starting yesterday but didn't want to come in [facility] then since it was [place], it's not getting any better. Denies any pain, denies N/V/D. Transition of care: patient was not received from another setting of care. Onset of symptoms was March 26, 2019. Risk Assessment: Do you want to hurt yourself or someone else? Patient reports no desire to harm self or others. Initial Sepsis Screen: Does the patient meet any 2 criteria? RR > 20 per min. HR > 90 bpm. Does the patient have a suspected source of infection? No. Patient's initial sepsis screen is negative. Care prior to arrival: None. 07:59 Method Of Arrival: Ambulatory [facility] 07:59 Acuity: MAXIMO 3 7 Triage Assessment: 08:01 General: Appears in no apparent distress. uncomfortable, Behavior is cooperative, jl7 appropriate for age, anxious. Pain: Denies pain. Neuro: Level of Consciousness is awake, alert, obeys commands, Oriented to person, place, time, situation. Cardiovascular: Patient's skin is warm and dry. Rhythm is irregular. Respiratory: Reports shortness of breath at rest Airway is patent Respiratory effort is even, labored, Respiratory pattern is symmetrical, tachypnea Onset: The symptoms/episode began/occurred yesterday, the patient has mild shortness of breath. Derm: Skin is pink, warm \T\ dry. Historical: - Allergies: 08:01 Betadine; jl7 08:01 Iodine; Topical only; jl7 - Home Meds: 08:01 digoxin 125 mcg Oral tab 1 tab once daily [Active]; Eliquis 5 mg Oral tab 1 tab 2 times jl7 per day [Active]; KCL 20 mEq daily [Active]; Lasix 40 mg Oral tab 20mg at night [Active]; meloxicam 15 mg Oral tab 1 tab once daily [Active]; sotalol 120 mg Oral tab 1 tab 2 times per day [Active]; Wellbutrin 150mg Oral 1 tab daily [Active]; Xeljanz Oral [Active]; Zoloft 50 mg Oral tab 1 tab once daily [Active]; - PMHx: 08:01 Atrial Fib; cardioversion; CHF; COPD; Hypertension; mitral valve stenosis; pulmonary jl7 HTN; resp failure; Rheumatoid Arthritis; - Immunization history:: Adult Immunizations not up to date. - Social history:: Smoking status: Patient/guardian denies using tobacco. - Ebola Screening: : No symptoms or risks identified at this time. Screenin:02 Abuse screen: Denies threats or abuse. Denies injuries from another. Nutritional jl7 screening: No deficits noted. Tuberculosis screening: No symptoms or risk factors identified. Fall Risk IV access (20 points). Total Cal[place]jas Fall Scale indicates No Risk (0-24 pts). Assessment: 08:00 General: See triage assessment. jl7 08:20 Reassessment: Patient appears in no apparent distress at this time. Cardiovascular: jl7 Heart tones S1 S2 present Patient's skin is warm and dry. Rhythm is irregular. Respiratory: Airway is patent Respiratory effort is even, labored, Respiratory pattern is symmetrical, tachypnea Breath sounds with wheezes bilaterally. 09:38 Reassessment: Patient appears in no apparent distress at this time. Patient and/or [facility] family updated on plan of care and expected duration. Pain level reassessed. Patient is alert, oriented x 3, equal unlabored respirations, skin warm/dry/pink. Patient states feeling better. Patient states symptoms have improved. 10:37 Reassessment: Patient appears in no apparent distress at this time. No changes from jl7 previously documented assessment. Patient and/or family updated on plan of care and expected duration. Pain level reassessed. Patient is alert, oriented x 3, equal unlabored respirations, skin warm/dry/pink. Patient denies pain at this time. Vital Signs: 08:01 BP 168 / 77; Pulse 110; Resp 22 S; Temp 98.4(O); Pulse Ox 95% on R/A; Weight 95.25 kg jl7 (R); Height 5 ft. 11 in. (180.34 cm) (R); Pain 0/10; 09:38 BP 148 / 79; Pulse 87; Resp 20 S; Pulse Ox 99% on R/A; jl7 10:37 BP 129 / 79; Pulse 97; Resp 17 S; Pulse Ox 96% on R/A; jl7 08:01 Body Mass Index 29.29 (95.25 kg, 180.34 cm) jl7 ED Course: 07:46 Patient arrived in ED. rg4 07:47 Natanael Arana FNP-C is [facility]. la1 07:47 Geovany Barksdale MD is Attending Physician. la1 07:58 Holly Crump RN is Primary Nurse. jl7 08:00 Triage completed. jl7 08:01 Arm band placed on right wrist. jl7 08:20 Initial lab(s) drawn, by me, sent to lab. First set of blood cultures drawn by me. jl7 08:23 EKG done, by prepress technician. reviewed by Natanael DORSEY. at1 08:53 X-ray completed. Portable x-ray completed in exam room. Patient tolerated procedure mh1 well. 09:02 Patient has correct armband on for positive identification. Placed in gown. Bed in low jl7 position. Call light in reach. Side rails up X 1. wood bucker on. Pulse ox on. NIBP on. Warm blanket given. 09:02 Inserted saline lock: 20 gauge in right forearm, using aseptic technique. Blood jl7 collected. 09:06 XRAY CXR (1 view) In Process Unspecified. EDMS 09:06 Lab(s) recollected, by lab director, Second set of blood cultures drawn by lab staff. jl7 10:49 No provider procedures requiring assistance completed. IV discontinued, intact, jl7 bleeding controlled, No redness/swelling at site. Pressure dressing applied. Administered Medications: 08:20 Drug: Xopenex (3) 1.25 mg Route: Inhalation; jl7 10:05 Follow up: Response: No adverse reaction jl7 08:20 Drug: AtroVENT Aerosol 0.5 mg Route: Inhalation; jl7 10:05 Follow up: Response: No adverse reaction jl7 08:30 Drug: SOLU-Medrol 125 mg Route: IVP; Site: right forearm; jl7 10:04 Follow up: Response: No adverse reaction jl7 08:32 Drug: Magnesium Sulfate 1 grams Route: IVPB; Infused Over: 1 hrs; Site: right forearm; jl7 09:32 Follow up: Response: No adverse reaction; IV Status: Completed infusion 7 09:55 Drug: Xopenex 1.25 mg Route: Inhalation; jl7 10:39 Follow up: Response: No adverse reaction 7 09:55 Drug: Lasix 20 mg Route: IVP; Site: right forearm; jl7 10:39 Follow up: Response: No adverse reaction jl7 Outcome: 10:39 Discharge ordered by . amelia 10:49 Discharged to home ambulatory. jl7 10:49 Condition: stable 10:49 Discharge instructions given to patient, family, Instructed on discharge instructions, follow up and referral plans. medication usage, Demonstrated understanding of instructions, follow-up care, medications, Prescriptions given X 3. 10:50 Patient left the ED. jl7 Signatures: Dispatcher [employer] EDMS Jamila Sylvester mh1 Jovita Mendenhall, teamcenter consultant EKG Tat1 Natanael Arana, RN PROCEDURE-C RN PROCEDURE-Cla1 Twyla Kuo rg4 Holly Crump, RN RN jl7
--- NOTE | 2019-03-27 10:41 | EDPHYS ---
Physician Documentation [facility] Name: Celsa Lorenzo Age: 64 yrs Sex: Female : 1955 Arrival Date: 03/27/2019 Time: 07:46 Bed 8 Private MD: ED Physician Geovany Barksdale HPI: 03/27 08:05 This 64 yrs old Female presents to ER via Ambulatory with complaints of la1 Breathing Difficulty. 08:05 The patient has shortness of breath at rest, while talking, and the patient has a la1 history of COPD, CHF. Onset: The symptoms/episode began/occurred 2 day(s) ago. Duration: The symptoms are continuous. The patient's shortness of breath is aggravated by coughing, light activity. Associated signs and symptoms: Pertinent positives: chest pain, productive cough, Pertinent negatives: diaphoresis, dizziness, fever, loss of consciousness. Severity of symptoms: At their worst the symptoms were moderate. The patient has experienced similar episodes in the past. pt reports recent increase in coughing and sputum production, recently began smoking again, hx of COPD. Denies fevers, also takes lasix for CHF but does not have significant pedal edema or crackles. Historical: - Allergies: 08:01 Betadine; jl7 08:01 Iodine; Topical only; jl7 - Home Meds: 08:01 digoxin 125 mcg Oral tab 1 tab once daily [Active]; Eliquis 5 mg Oral tab 1 tab 2 times jl7 per day [Active]; KCL 20 mEq daily [Active]; Lasix 40 mg Oral tab 20mg at night [Active]; meloxicam 15 mg Oral tab 1 tab once daily [Active]; sotalol 120 mg Oral tab 1 tab 2 times per day [Active]; Wellbutrin 150mg Oral 1 tab daily [Active]; Xeljanz Oral [Active]; Zoloft 50 mg Oral tab 1 tab once daily [Active]; - PMHx: 08:01 Atrial Fib; cardioversion; CHF; COPD; Hypertension; mitral valve stenosis; pulmonary jl7 HTN; resp failure; Rheumatoid Arthritis; - Immunization history:: Adult Immunizations not up to date. - Social history:: Smoking status: Patient/guardian denies using tobacco. - Ebola Screening: : No symptoms or risks identified at this time. ROS: 08:07 Constitutional: Negative for fever, chills, and weight loss, Eyes: Negative for injury, la1 pain, redness, and discharge, ENT: Negative for injury, pain, and discharge, Neck: Negative for injury, pain, and swelling, Cardiovascular: + for chest pain 08:07 Abdomen/GI: Negative for abdominal pain, nausea, vomiting, diarrhea, and constipation, Back: Negative for injury and pain, : Negative for injury, bleeding, discharge, and swelling, MS/Extremity: Negative for injury and deformity, Neuro: Negative for headache, weakness, numbness, tingling, and seizure. 08:07 Respiratory: Positive for cough, shortness of breath, wheezing, inspiratory, expiratory. Exam: 08:08 Constitutional: This is a well developed, well nourished patient who is awake, alert, la1 and in no acute distress. Head/Face: Normocephalic, atraumatic. Eyes: Pupils equal round and reactive to light, extra-ocular motions intact. Lids and lashes normal. Conjunctiva and sclera are non-icteric and not injected. Periorbital areas with no swelling, redness, or edema. ENT: Mucous membranes moist. Neck: Trachea midline,Supple, full range of motion without nuchal rigidity, or vertebral point tenderness. No Meningismus. Chest/axilla: Normal chest wall appearance and motion. Nontender with no deformity. No lesions are appreciated. Cardiovascular: Regular rate and rhythm with a normal S1 and S2. no JVD. No pulse deficits. 08:08 Abdomen/GI: Soft, non-tender, with normal bowel sounds. No guarding or rebound. No evidence of tenderness throughout. MS/ Extremity: Pulses equal, no cyanosis. Neurovascular intact. Full, normal range of motion. Neuro: Awake and alert, GCS 15, oriented to person, place, time, and situation. Normal gait. 08:08 Respiratory: moderate respiratory distress is noted, Respirations: labored breathing, that is mild, prolonged exhalation, that is mild, tachypnea, that is mild, Breath sounds: wheezing: inspiratory expiratory that is moderate, is heard diffusely. 09:58 Respiratory: mild respiratory distress is noted, Respirations: prolonged exhalation, la1 Breath sounds: wheezing: expiratory that is mild, is improved 09:59 ECG was reviewed by the Attending Physician. la1 Vital Signs: 08:01 BP 168 / 77; Pulse 110; Resp 22 S; Temp 98.4(O); Pulse Ox 95% on R/A; Weight 95.25 kg jl7 (R); Height 5 ft. 11 in. (180.34 cm) (R); Pain 0/10; 09:38 BP 148 / 79; Pulse 87; Resp 20 S; Pulse Ox 99% on R/A; jl7 10:37 BP 129 / 79; Pulse 97; Resp 17 S; Pulse Ox 96% on R/A; jl7 08:01 Body Mass Index 29.29 (95.25 kg, 180.34 cm) jl7 MDM: 07:54 Patient medically screened. la1 10:37 Data reviewed: vital signs, nurses notes, lab test result(s), EKG, radiologic studies, la1 I have discussed the patient's presentation/case with the attending Emergency Department Physician; and as a result, I will discharge patient. Data interpreted: Pulse oximetry: on room air is 99 %. Interpretation: normal. Test interpretation: by ED physician or midlevel provider: ECG, plain radiologic studies. Counseling: I had a detailed discussion with the patient and/or guardian regarding: the historical points, exam findings, and any diagnostic results supporting the discharge/admit diagnosis, lab results, radiology results, the need for outpatient follow up, a family practitioner, smoking cessation. ED course: Pt ambulatory to the restroom without difficulty, states she feels significantly better and like she will be fine to go home, offered admission but pt declined at this time. Strict return precautions given, wheezing significantly improved. No respiratory distress noted at this time. Pt has reliable FU and transportation. . 03/27 08:04 Order name: Blood Culture Adult (2) 03/27 08:04 Order name: BMP; Complete Time: 09:30 03/27 08:04 Order name: CBC with Diff; Complete Time: 09:08 03/27 08:04 Order name: Hepatic Function; Complete Time: 09:30 03/27 08:04 Order name: Magnesium; Complete Time: 09:30 03/27 08:04 Order name: NT PRO-BNP; Complete Time: 09:30 03/27 08:04 Order name: XRAY CXR (1 view); Complete Time: 09:30 03/27 08:04 Order name: PT-INR; Complete Time: 09:08 03/27 08:04 Order name: Ptt, Activated; Complete Time: 09:08 03/27 08:04 Order name: Troponin (emerg Dept Use Only); Complete Time: 09:30 03/27 08:04 Order name: Lactate; Complete Time: 09:30 03/27 08:04 Order name: EKG; Complete Time: 08:05 03/27 08:04 Order name: Cardiac monitoring; Complete Time: 08:07 03/27 08:04 Order name: EKG - Nurse/Tech; Complete Time: 08:07 03/27 08:04 Order name: IV Saline Lock; Complete Time: 09:37 03/27 08:04 Order name: Labs collected and sent; Complete Time: 09:37 03/27 08:04 Order name: O2 Per Protocol; Complete Time: 08:07 03/27 08:04 Order name: O2 Sat Monitoring; Complete Time: 08:07 03/27 08:44 Order name: Labs - recollect needed: lactate recollect; Complete Time: 09:05 eb EC:59 Rate is 93 beats/min. Rhythm is irregular, A fib. QRS [place] is Normal. QRS interval is la1 normal. QT interval is prolonged at 467 msec. T waves are Inverted in lead aVR. Administered Medications: 08:20 Drug: Xopenex (3) 1.25 mg Route: Inhalation; jl7 10:05 Follow up: Response: No adverse reaction 7 08:20 Drug: AtroVENT Aerosol 0.5 mg Route: Inhalation; jl7 10:05 Follow up: Response: No adverse reaction 7 08:30 Drug: SOLU-Medrol 125 mg Route: IVP; Site: right forearm; jl7 10:04 Follow up: Response: No adverse reaction 7 08:32 Drug: Magnesium Sulfate 1 grams Route: IVPB; Infused Over: 1 hrs; Site: right forearm; jl7 09:32 Follow up: Response: No adverse reaction; IV Status: Completed infusion jl7 09:55 Drug: Xopenex 1.25 mg Route: Inhalation; jl7 10:39 Follow up: Response: No adverse reaction jl7 09:55 Drug: Lasix 20 mg Route: IVP; Site: right forearm; jl7 10:39 Follow up: Response: No adverse reaction jl7 Disposition: 17:34 Co-signature as Attending Physician, Geovany Barksdale MD. rn Disposition: 03/27/19 10:39 Discharged to Home. Impression: Chronic obstructive pulmonary disease with (acute) exacerbation. - Condition is Stable. - Discharge Instructions: Chronic Bronchitis, Chronic Obstructive Pulmonary Disease Exacerbation. - Prescriptions for Prednisone 20 mg Oral Tablet - take 3 tablet by ORAL route once daily for 5 days; 15 tablet. Albuterol Sulfate 90 mcg/actuation - inhale 1-2 puff by INHALATION route every 4-6 hours; 1 Inhaler. Zithromax 500 mg Oral Tablet - take 1 tablet by ORAL route once daily for 5 days; 5 tablet. - Medication Reconciliation Form, Thank You Letter, Antibiotic Education form. - Follow up: Private Physician; When: 2 - 3 days; Reason: Recheck today's complaints, Re-evaluation by your physician. Follow up: Emergency Department; When: As needed; Reason: Fever > 102 F, Trouble breathing, Worsening of condition. Signatures: Dispatcher [employer] EDMS Geovany Barksdale MD MD rn Attema, Lee, ENVIRONMENTAL LABORATORY TECHNICIAN-C ENVIRONMENTAL LABORATORY TECHNICIAN-Cla1 Holly Crump RN RN jl7 Ayana Navarro Corrections: (The following items were deleted from the chart) 10:50 10:39 03/27/2019 10:39 Discharged to Home. Impression: Chronic obstructive pulmonary jl7 disease with (acute) exacerbation. Condition is Stable. Forms are Medication Reconciliation Form, Thank You Letter, Antibiotic Education, Prescription Opioid Use. Follow up: Private Physician; When: 2 - 3 days; Reason: Recheck today's complaints, Re-evaluation by your physician. Follow up: Emergency Department; When: As needed; Reason: Fever > 102 F, Trouble breathing, Worsening of condition. la1
[2019-03-27 11:03] VITALS: TEMP 98.4
[2019-03-27 11:08] VITALS: BP 129/79; O2SAT 96
--- NOTE | 2019-03-27 11:58 | EKG ---
Test Date: 2019-03-27 Test Time: 08:07:29 Land Appraiser: FERNANDO MEASUREMENT RESULTS: Intervals: Rate: 93 SD: QRSD: 84 QT: 376 QTc: 467 [place]: P: SD: QRS: 36 T: -37 INTERPRETIVE STATEMENTS: Atrial fibrillation Nonspecific ST and T wave abnormality Abnormal ECG Compared to ECG 02/16/2019 08:17:43 Possible ischemia no longer present ST (T wave) deviation still present Electronically Signed On 03-27-19 11:56:58 COLLEGE PROFESSOR by Dilip Ash
== END 2019-03-27 10:50 | disposition home or self-care (01) ==
LOC: ER 07:45
DX: J44.1 Chronic obstructive pulmonary disease with (acute) exacerbation (principal); I10 Essential (primary) hypertension; I48.91 Unspecified atrial fibrillation; Z72.0 Tobacco use; Z79.01 Long term (current) use of anticoagulants; Z91.048 Other nonmedicinal substance allergy status
CPT/HCPCS: 96365; 93005; 87040 ×2; 85025; 80048; 36415; 83735; 85610; 80076; 83605; 85730; 84484; 83880; 71045; 96375; 99285; J1940; J3475; J2930

== ENCOUNTER 2019-04-18 07:51 | Emergency (ER) | payer OTHER ==
--- OUTSIDE RECORDS SUMMARY | 2019-04-18 07:53 | XMS REPORT ---
:1955 [facility] Address [address] [place] [address] Dr. Neumann [address] [place] [id number] Care Team Providers Name Role Phone Unavailable Unavailable Unavailable Problems This patient has no known problems. Allergies, Adverse Reactions, Alerts This patient has no known allergies or adverse reactions. Medications This patient has no known medications.
[2019-04-18] MEDS ORDERED: NA CHLORIDE 0.9% 1,000 ML ONE (08:16)
[2019-04-18 08:35] LABS: Absolute Lymphocytes (CBC) 1.3 K/uL (0.7-4.9); Basophils % 0.5 % (0-1.3); Hematocrit 36.7 % (36.0-45.0); Lymphocytes % 18.2 % (15.3-44.8); MPV 8.9 fL (7.6-11.3); RBC Red Blood Cell Count 3.87 M/uL (3.86-4.86)
[2019-04-18 08:36] LABS: Protime INR 1.31
[2019-04-18 08:53] LABS: ALT/SGPT 27 U/L (12-78); AST/SGOT 22 U/L (15-37); Albumin 3.6 g/dL (3.4-5.0); Alkaline Phosphatase 75 U/L (45-117); BUN Blood Urea Nitrogen 14 mg/dL (7-18); Bicarbonate 30 mmol/L (21-32); Bilirubin Direct 0.1 mg/dL (0-0.2); Bilirubin Total 0.5 mg/dL (0.2-1.0); Glucose Level 98 mg/dL (74-106); Magnesium 2.3 mg/dL (1.8-2.4); NT PRO-BNP 1983 pg/mL (<125); Potassium 3.3 mmol/L (3.5-5.1); Protein, Total 7.3 g/dL (6.4-8.2); Sodium Level 139 mmol/L (136-145); Troponin (Emerg Dept Use Only) < 0.02 ng/mL (0.0-0.045)
--- NOTE | 2019-04-18 09:47 | RAD REPORT ---
EXAM DESCRIPTION: CT - Angio Aorta For Dissection - 04/18/2019 9:12 am CLINICAL HISTORY: . Chest and abdominal pain COMPARISON: December 2018 TECHNIQUE: Computed tomography angiography of the chest, abdomen pelvis were obtained. 100 cc Isovue 370 was administered intravenously. Coronal and sagittal reconstruction were performed. MIP 3D reconstruction was performed All CT scans are performed using dose optimization technique as appropriate and may include automated exposure control or mA/KV adjustment according to patient size. FINDINGS: An aortic dissection is not seen. An aortic aneurysm is not displayed. The celiac, SMA and AMBROCIO are patent . Short segment dissection involves the right common femoral artery A lung consolidation is not present. A pericardial effusion is not seen. A pleural effusion is not n oted. COPD. Cardiomegaly The liver,spleen, pancreas adrenals kidneys demonstrate no significant abnormality. Vague increased density is present within the gallbladder There is no evidence of diverticulitis. IMPRESSION: Negative for an aortic dissection. Short segment dissection right common femoral artery Vague increased density within the gallbladder probably stones
--- NOTE | 2019-04-18 09:48 | RAD REPORT ---
EXAM DESCRIPTION: Rula Single View04/18/2019 8:57 am CLINICAL HISTORY: Chest pain COMPARISON: March 2019 FINDINGS: Lungs are hyperaerated. The lungs appear clear of acute infiltrate. The heart is moderately to markedly enlarged IMPRESSION: COPD without visualization acute abnormality
[2019-04-18] MEDS ORDERED: FENTANYL CITR 100 MCG/2 ML ONE (09:59)
--- NOTE | 2019-04-18 11:54 | RAD REPORT ---
EXAM DESCRIPTION: US - Abdomen Exam Limited - 04/18/2019 11:09 am CLINICAL HISTORY: Abdominal pain. COMPARISON: March 18, 2020 cat scan FINDINGS: Multiple gallstones. The gallbladder wall is not thickened. The biliary tree is normal caliber. IMPRESSION: Cholelithiasis without evidence cholecystitis
--- NOTE | 2019-04-18 12:10 | EDPHYS ---
Physician Documentation [facility] Name: Celsa [place] Age: 64 yrs Sex: Female : 1955 Arrival Date: 04/18/2019 Time: 07:52 Bed 6 Private MD: Suresh Cedillo E ED Physician Jerald Perdue HPI: 04/18 08:27 This 64 yrs old Female presents to ER via Wheelchair with complaints of Chest snw Pain, Back Pain, Breathing Difficulty. 08:27 Onset: The symptoms/episode began/occurred gradually, 1 week(s) ago, and became worse snw this morning, and became persistent. Associated signs and symptoms: Pertinent positives: back pain and then chest pain and now "full thickness" pain. Modifying factors: the patient symptoms are aggravated by flexion. The patient has not experienced similar symptoms in the past. The patient has been recently seen by a physician: sees Dr. Cedillo. Hx of pleurisy, hx of sternal fx. Pt states she kept waiting for s/s to improve but became scared. Pt took 50mg Ultram SUPER[employer]OR H[employer]IN[employer]ING and declines other pain medications at this time. Historical: - Allergies: 08:07 Betadine; em 08:07 Iodine; Topical only; em - Home Meds: 08:36 digoxin 125 mcg Oral tab 1 tab once daily [Active]; Eliquis 5 mg Oral tab 1 tab 2 times em per day [Active]; KCL 20 mEq daily [Active]; Lasix 40 mg Oral tab 20mg at night [Active]; meloxicam 15 mg Oral tab 1 tab once daily [Active]; sotalol 120 mg Oral tab 1 tab 2 times per day [Active]; Wellbutrin 150mg Oral 1 tab daily [Active]; Xeljanz Oral [Active]; Zoloft 50 mg Oral tab 1 tab once daily [Active]; - PMHx: 08:07 Atrial Fib; cardioversion; CHF; COPD; Hypertension; mitral valve stenosis; resp em failure; pulmonary HTN; Rheumatoid Arthritis; ADD/ADHD; - PSHx: 08:07 Appendectomy; Tubal ligation; em - Immunization history:: Pneumococcal vaccine is up to date, Flu vaccine is not up to date. - Social history:: Smoking status: Patient/guardian denies using tobacco, but has a distant history of tobacco abuse. - Ebola Screening: : Patient negative for fever greater than or equal to 101.5 degrees Fahrenheit, and additional compatible Ebola Virus Disease symptoms Patient denies exposure to infectious person Patient denies travel to an Ebola-affected area in the 21 days before illness onset No symptoms or risks identified at this time. ROS: 08:26 Constitutional: Negative for fever, chills, and weight loss, Eyes: Negative for injury, snw pain, redness, and discharge, ENT: Negative for injury, pain, and discharge, Neck: Negative for injury, pain, and swelling, Abdomen/GI: Negative for abdominal pain, nausea, vomiting, diarrhea, and constipation, : Negative for injury, bleeding, discharge, and swelling, MS/Extremity: Negative for injury and deformity, Skin: Negative for injury, rash, and discoloration, Neuro: Negative for headache, weakness, numbness, tingling, and seizure. 08:26 Respiratory: Negative for shortness of breath, cough, wheezing, and pleuritic chest pain. 08:26 Cardiovascular: Positive for chest pain, of the anterior aspect of right upper chest, anterior aspect of left upper chest and mid-sternal area, recent sternal fracture. 08:26 Back: Positive for pain at rest, pain with movement, of the left scapular area, right scapular area and thoracic area. Exam: 08:25 Constitutional: This is a well developed, well nourished patient who is awake, alert, snw and in no acute distress. Head/Face: Normocephalic, atraumatic. Eyes: Pupils equal round and reactive to light, extra-ocular motions intact. Lids and lashes normal. Conjunctiva and sclera are non-icteric and not injected. Cornea within normal limits. Periorbital areas with no swelling, redness, or edema. ENT: Nares patent. No nasal discharge, no septal abnormalities noted. Tympanic membranes are normal and external auditory canals are clear. Oropharynx with no redness, swelling, or masses, exudates, or evidence of obstruction, uvula midline. Mucous membranes moist. Neck: Trachea midline, no thyromegaly or masses palpated, and no cervical lymphadenopathy. Supple, full range of motion without nuchal rigidity, or vertebral point tenderness. No Meningismus. Chest/axilla: Normal chest wall appearance and motion. Nontender with no deformity. No lesions are appreciated. 08:25 Respiratory: Lungs have equal breath sounds bilaterally, clear to auscultation and percussion. No rales, rhonchi or wheezes noted. No increased work of breathing, no retractions or nasal flaring. Abdomen/GI: Soft, non-tender, with normal bowel sounds. No distension or tympany. No guarding or rebound. No evidence of tenderness throughout. Back: No spinal tenderness. No costovertebral tenderness. Full range of motion. Skin: Warm, dry with normal turgor. Normal color with no rashes, no lesions, and no evidence of cellulitis. MS/ Extremity: Pulses equal, no cyanosis. Neurovascular intact. Full, normal range of motion. Neuro: Awake and alert, GCS 15, oriented to person, place, time, and situation. Cranial nerves II-XII grossly intact. Motor strength 5/5 in all extremities. Sensory grossly intact. Cerebellar exam normal. Normal gait. Psych: Awake, alert, with orientation to person, place and time. Behavior, mood, and affect are within normal limits. 08:25 Cardiovascular: Rate: normal, Rhythm: irregularly irregular, Pulses: no pulse deficits are appreciated, Heart sounds: normal, Edema: is not appreciated, JVD: is not appreciated. Vital Signs: 08:07 BP 125 / 80; Pulse 70; Resp 18; Temp 98.1(O); Pulse Ox 100% on R/A; Weight 95.25 kg; em Height 5 ft. 11 in. (180.34 cm); 09:00 BP 117 / 70; Pulse 65; Resp 18; Pulse Ox 97% on R/A; em 10:00 BP 125 / 76; Pulse 66; Resp 14; Pulse Ox 95% on R/A; em 11:50 BP 118 / 66; Pulse 56; Resp 18; Pulse Ox 99% on R/A; em 08:07 Body Mass Index 29.29 (95.25 kg, 180.34 cm) em MDM: 08:14 Patient medically screened. graciela 12:10 Data reviewed: vital signs, nurses notes. Data interpreted: Pulse oximetry: on room air snw is 99 %. Interpretation: normal. Counseling: I had a detailed discussion with the patient and/or guardian regarding: the historical points, exam findings, and any diagnostic results supporting the discharge/admit diagnosis, lab results, radiology results, the need for outpatient follow up, to return to the emergency department if symptoms worsen or persist or if there are any questions or concerns that arise at home. Special discussion: Based on the patient's Hx, exam, and Dx evaluation, there is no indication for emergent surgery or inpatient Tx. It is understood by the patient/guardian that if the Sx's persist or worsen they need to return immediately for re-evaluation. Based on the history and exam findings, there is no indication for further emergent testing or inpatient evaluation. I discussed with the patient/guardian the need to see the general surgeon for further evaluation of the symptoms. I discussed with the patient/guardian the need to see the primary care provider for further evaluation of the symptoms. incidental - right common femoral artery, short segment dissection. 04/18 08:12 Order name: Basic Metabolic Panel; Complete Time: 09:01 w 04/18 08:12 Order name: CBC with Diff; Complete Time: 08:36 w 04/18 08:12 Order name: LFT's; Complete Time: 09: [facility] 04/18 08:12 Order name: Magnesium; Complete Time: 09:01 w 04/18 08:12 Order name: NT PRO-BNP; Complete Time: 09:01 w 04/18 08:12 Order name: PT-INR; Complete Time: 08:36 snw 04/18 08:12 Order name: Troponin (emerg Dept Use Only); Complete Time: 09:01 w 04/18 08:12 Order name: XRAY Chest (1 view) [facility] 04/18 08:12 Order name: CT Aorta for Dissection [facility] 04/18 08:14 Order name: Chest Single View; Complete Time: 09:59 EDMS 04/18 08:14 Order name: Angio Aorta For Dissection; Complete Time: 09:59 EDMS 04/18 10:04 Order name: US Abdomen Limited; Complete Time: 11:57 snw 04/18 08:12 Order name: EKG; Complete Time: 08:13 snw 04/18 08:12 Order name: Cardiac monitoring; Complete Time: 08:24 snw 04/18 08:12 Order name: EKG - Nurse/Tech; Complete Time: 08:24 snw 04/18 08:12 Order name: IV Saline Lock; Complete Time: 08:24 w 04/18 08:12 Order name: Labs collected and sent; Complete Time: 08:24 04/18 08:12 Order name: O2 Per Protocol; Complete Time: :24 04/18 08:12 Order name: O2 Sat Monitoring; Complete Time: 08:04/18 08:14 Order name: EKG Electrocardiogram EDMS Administered Medications: 08:24 Drug: NS 0.9% 1000 ml Route: IV; Rate: 50 ml/hr; Site: right forearm; em 10:05 Drug: fentaNYL (PF) 25 mcg Route: IVP; Site: right forearm; aa5 Disposition: 15:12 Co-signature as Attending Physician, Jerald Perdue MD I agree with the assessment and graciela plan of care. Disposition: 04/18/19 12:09 Discharged to Home. Impression: Cholelithiasis, Unspecified abdominal pain. - Condition is Stable. - Discharge Instructions: Abdominal Pain, Adult, Biliary Colic, Adult, Fat and Cholesterol Restricted Diet, Cholelithiasis. - Prescriptions for Bentyl 20 mg Oral Tablet - take 1 tablet by ORAL route every 6 hours As needed; 20 tablet. promethazine 25 mg Oral Tablet - take 1 tablet by ORAL route every 6 hours As needed; 20 tablet. - Work release form, Medication Reconciliation Form, Thank You Letter, Antibiotic Education, Prescription Opioid Use form. - Follow up: Emergency Department; When: As needed; Reason: Worsening of condition. Follow up: Private Physician; When: 2 - 3 days; Reason: Recheck today's complaints, Continuance of care, Re-evaluation by your physician. Signatures: Dispatcher [employer] Jerald Magaña MD MD cha Therrien, Shelly, ACCELERATOR SYSTEMS DIRECTOR-C ACCELERATOR SYSTEMS DIRECTOR-Csnw Matheus Narvaez, RN RN Columba Moore RN RN aa5 Holly Crump RN RN jl7 Corrections: (The following items were deleted from the chart) 12:43 12:09 04/18/2019 12:09 Discharged to Home. Impression: Cholelithiasis; Unspecified jl7 abdominal pain. Condition is Stable. Forms are Medication Reconciliation Form, Thank You Letter, Antibiotic Education, Prescription Opioid Use. Follow up: Emergency Department; When: As needed; Reason: Worsening of condition. Follow up: Private Physician; When: 2 - 3 days; Reason: Recheck today's complaints, Continuance of care, Re-evaluation by your physician. snw
--- NOTE | 2019-04-18 12:10 | ER ---
Nurse's Notes [facility] Name: Celsa [place] Age: 64 yrs Sex: Female : 1955 Arrival Date: 04/18/2019 Time: 07:52 Bed 6 Private MD: Suresh Cedillo E Diagnosis: Cholelithiasis;Unspecified abdominal pain Presentation: 04/18 08:02 Presenting complaint: Patient states: chest pain that has been going on for 8 or 9 em days, started off as pain in the center of the back, feels like pleurisy, also reports SOB and pain on inspiration, denies fever or nausea. Transition of care: patient was not received from another setting of care. Onset of symptoms was April 08, 2019. Risk Assessment: Do you want to hurt yourself or someone else? Patient reports no desire to harm self or others. Initial Sepsis Screen: Does the patient meet any 2 criteria? No. Patient's initial sepsis screen is negative. Does the patient have a suspected source of infection? No. Patient's initial sepsis screen is negative. Care prior to arrival: None. 08:02 Method Of Arrival: Wheelchair em 08:02 Acuity: MAXIMO 3 em Historical: - Allergies: 08:07 Betadine; em 08:07 Iodine; Topical only; em - Home Meds: 08:36 digoxin 125 mcg Oral tab 1 tab once daily [Active]; Eliquis 5 mg Oral tab 1 tab 2 times em per day [Active]; KCL 20 mEq daily [Active]; Lasix 40 mg Oral tab 20mg at night [Active]; meloxicam 15 mg Oral tab 1 tab once daily [Active]; sotalol 120 mg Oral tab 1 tab 2 times per day [Active]; Wellbutrin 150mg Oral 1 tab daily [Active]; Xeljanz Oral [Active]; Zoloft 50 mg Oral tab 1 tab once daily [Active]; - PMHx: 08:07 Atrial Fib; cardioversion; CHF; COPD; Hypertension; mitral valve stenosis; resp em failure; pulmonary HTN; Rheumatoid Arthritis; ADD/ADHD; - PSHx: 08:07 Appendectomy; Tubal ligation; em - Immunization history:: Pneumococcal vaccine is up to date, Flu vaccine is not up to date. - Social history:: Smoking status: Patient/guardian denies using tobacco, but has a distant history of tobacco abuse. - Ebola Screening: : Patient negative for fever greater than or equal to 101.5 degrees Fahrenheit, and additional compatible Ebola Virus Disease symptoms Patient denies exposure to infectious person Patient denies travel to an Ebola-affected area in the 21 days before illness onset No symptoms or risks identified at this time. Screenin:10 Abuse screen: Denies threats or abuse. Nutritional screening: No deficits noted. em Tuberculosis screening: No symptoms or risk factors identified. Fall Risk None identified. Assessment: 08:07 General: Appears in no apparent distress. uncomfortable, Behavior is calm, cooperative, em appropriate for age, Denies fever. Pain: Complains of pain in thoracic area Pain radiates to chest Pain currently is 4 out of 10 on a pain scale. Pain began 9 days ago Aggravated by taking deep breath. Neuro: Level of Consciousness is awake, alert, obeys commands, Oriented to person, place, time, situation, Appropriate for age. Cardiovascular: Reports shortness of breath, Denies nausea, vomiting, Capillary refill < 3 seconds Patient's skin is warm and dry. Rhythm is atrial fibrillation. Respiratory: Reports shortness of breath Airway is patent Respiratory effort is even, shallow, Respiratory pattern is regular, symmetrical, Breath sounds are clear Denies cough. : Denies burning with urination. Derm: Skin is intact, is healthy with good turgor, Skin is pink, warm \T\ dry. Musculoskeletal: Capillary refill < 3 seconds, Range of motion: intact in all extremities. 09:30 Reassessment: Patient appears in no apparent distress at this time. Patient and/or em family updated on plan of care and expected duration. Pain level reassessed. Patient is alert, oriented x 3, equal unlabored respirations, skin warm/dry/pink. reports pain, provider notified. 11:50 Reassessment: Patient appears in no apparent distress at this time. Patient and/or em family updated on plan of care and expected duration. Pain level reassessed. Patient is alert, oriented x 3, equal unlabored respirations, skin warm/dry/pink. Vital Signs: 08:07 BP 125 / 80; Pulse 70; Resp 18; Temp 98.1(O); Pulse Ox 100% on R/A; Weight 95.25 kg; em Height 5 ft. 11 in. (180.34 cm); 09:00 BP 117 / 70; Pulse 65; Resp 18; Pulse Ox 97% on R/A; em 10:00 BP 125 / 76; Pulse 66; Resp 14; Pulse Ox 95% on R/A; em 11:50 BP 118 / 66; Pulse 56; Resp 18; Pulse Ox 99% on R/A; em 08:07 Body Mass Index 29.29 (95.25 kg, 180.34 cm) em ED Course: 07:52 Patient arrived in ED. rg4 07:52 Suresh Cedillo MD is Private Physician. rg4 08:02 Matheus Narvaez, RN is Primary Nurse. em 08:05 Triage completed. em 08:07 Arm band placed on. em 08:09 Lina Nazario FNP-C [facility]. snw 08:09 Jerald Perdue MD is Attending Physician. snw 08:10 Patient has correct armband on for positive identification. Placed in gown. Bed in low em position. Call light in reach. safety inspector on. Pulse ox on. NIBP on. 08:10 Patient maintains SpO2 saturation greater than 95% on room air. em 08:17 EKG done, by manufacturing maintenance technician. reviewed by Lina DORSEY. at1 08:59 Chest Single View In Process Unspecified. EDMS 09:13 Angio Aorta For Dissection In Process Unspecified. EDMS 11:10 US Abdomen Limited In Process Unspecified. EDMS 12:42 No provider procedures requiring assistance completed. IV discontinued, intact, jl7 bleeding controlled, No redness/swelling at site. Pressure dressing applied. Administered Medications: 08:24 Drug: NS 0.9% 1000 ml Route: IV; Rate: 50 ml/hr; Site: right forearm; em 10:05 Drug: fentaNYL (PF) 25 mcg Route: IVP; Site: right forearm; aa5 Outcome: 12:09 Discharge ordered by . snw 12:42 Discharged to home ambulatory. jl7 12:42 Condition: stable 12:42 Discharge instructions given to patient, Instructed on discharge instructions, follow up and referral plans. medication usage, Demonstrated understanding of instructions, follow-up care, medications, Prescriptions given X 2. 12:43 Patient left the ED. jl7 Signatures: Dispatcher [employer] EDMS Lina Nazario FNP-C FNP-Csnw Matheus Narvaez, RN RN em Columba Moncada, RN RN aa5 Jovita Mendenhall, certified master safe technician EKG Tat1 Twyla Kuo4 Holly Crump, RN RN jl7
[2019-04-18 12:48] VITALS: TEMP 98.1
[2019-04-18 12:51] VITALS: BP 118/66; O2SAT 99
--- NOTE | 2019-04-19 06:38 | EKG ---
Test Date: 2019-04-18 Test Time: 08:09:08 Ceramic Engineering Professor: FERNANDO MEASUREMENT RESULTS: Intervals: Rate: 58 CO: QRSD: 92 QT: 428 QTc: 420 [place]: P: CO: QRS: 29 T: 31 INTERPRETIVE STATEMENTS: Atrial fibrillation with slow ventricular response Nonspecific ST abnormality Abnormal ECG Compared to ECG 03/27/2019 08:07:29 No significant changes Electronically Signed On 04-19-19 06:36:09 SEARCH STRATEGIST by Dilip Ash
[2019-04-27] MEDS ORDERED: ASPIRIN 325 MG TAB ONE (09:18)
[2019-04-27] MEDS ORDERED: ENOXAPARIN 40 MG/0.4 ML SQ ONE (09:19)
[2019-04-27] MEDS ORDERED: METOPROLOL XL 50 MG TAB PO ONE (11:37)
== END 2019-04-18 12:43 | disposition home or self-care (01) ==
LOC: ER 07:51
DX: K80.20 Calculus of gallbladder without cholecystitis without obstruction (principal); R10.9 Unspecified abdominal pain; I10 Essential (primary) hypertension; I50.9 Heart failure, unspecified; I48.91 Unspecified atrial fibrillation; J44.9 Chronic obstructive pulmonary disease, unspecified; Z79.01 Long term (current) use of anticoagulants; Z88.3 Allergy status to other anti-infective agents; Z91.048 Other nonmedicinal substance allergy status
CPT/HCPCS: 93005; 85025; 80048; 36415; 83735; 85610; 80076; 84484; 83880; 71275; 74175; 71045; 76705; 96374; 99285; Q9967; J3010; J7030

== ENCOUNTER 2019-05-11 13:34 | Emergency (ER) | payer OTHER ==
--- OUTSIDE RECORDS SUMMARY | 2019-05-11 13:36 | XMS REPORT ---
:1955 Author Organization [facility] Address [address] [place] [address] Dr. Neumann [address] [place] [id number] Care Team Providers Name Role Phone Unavailable Unavailable Unavailable Problems This patient has no known problems. Allergies, Adverse Reactions, Alerts This patient has no known allergies or adverse reactions. Medications This patient has no known medications.
--- NOTE | 2019-05-11 15:17 | RAD REPORT ---
EXAM DESCRIPTION: CT - Thorax Wo Con CLINICAL HISTORY: Chest pain PAIN COMPARISON: Thorax Wo Con dated 04/21/2017; Abdomen Wo Contrast dated 05/11/2019 FINDINGS: CT chest and CT abdomen without contrast were performed Diffuse emphysema is present. No evidence of focal pulmonary infiltrate or mass. No pleural or perica rdial fluid. No pneumothorax seen. Cardiac size is mildly enlarged, particularly the left atrium. Nondisplaced slightly angulated fractures right anterolateral fourth, fifth, sixth and seventh ribs. A definitive left-sided rib fracture is not seen. Scoliotic curvature of the thoracolumbar spine is p resent. Noncontrast assessment of the liver, spleen, pancreas, adrenal glands and kidneys within normal limit s. Cholelithiasis is seen. All CT scans are performed using dose optimization technique as appropriate and may include automated exposure control or mA/KV adjustment according to patient size. IMPRESSION: Slightly angulated nondisplaced right anterolateral rib fractures suspected. No pneumoth orax. Moderate COPD. Cholelithiasis.
[2019-05-11] MEDS ORDERED: MORPHINE 4 MG/ML SYR ONE (15:32)
[2019-05-11] MEDS ORDERED: ONDANSETRON 4 MG/2 ML VIAL ONE (15:32)
--- NOTE | 2019-05-11 16:16 | ER ---
Nurse's Notes [facility] Name: Celsa Lorenzo Age: 64 yrs Sex: Female : 1955 Arrival Date: 05/11/2019 Time: 13:36 Bed 16 Private MD: Diagnosis: Multiple fractures of ribs, right side Presentation: 05/11 13:58 Presenting complaint: Patient states: Fell twice last night and injured bilateral ribs. rb1 Report being drunk when it happened. Transition of care: patient was not received from another setting of care. Onset of symptoms was May 10, 2019. Risk Assessment: Do you want to hurt yourself or someone else? Patient reports no desire to harm self or others. 13:58 Method Of Arrival: Ambulatory rb1 13:58 Acuity: MAXIMO 4 rb1 14:00 Initial Sepsis Screen: Does the patient meet any 2 criteria? No. Patient's initial vc sepsis screen is negative. Does the patient have a suspected source of infection? No. Patient's initial sepsis screen is negative. Care prior to arrival: None. Triage Assessment: 13:58 General: Appears in no apparent distress. comfortable, Behavior is calm, cooperative. rb1 Pain: Complains of pain in ribs Pain currently is 9 out of 10 on a pain scale. Pain began 1 day ago. Neuro: Level of Consciousness is awake, alert, obeys commands, Oriented to person, place, time, situation. Respiratory: Airway is patent Respiratory effort is even, unlabored, Respiratory pattern is regular, symmetrical. Derm: Skin is pink, warm \T\ dry. Historical: - Allergies: 13:58 Betadine; rb1 13:58 Iodine; Topical only; rb1 - PMHx: 13:58 ADD/ADHD; Atrial Fib; cardioversion; CHF; COPD; Hypertension; mitral valve stenosis; rb1 pulmonary HTN; resp failure; Rheumatoid Arthritis; - PSHx: 13:58 Appendectomy; Tubal ligation; rb1 - Immunization history:: Adult Immunizations up to date. - Coronavirus screen:: The patient has NOT traveled to [place], [place], or [place] in the past 14 days. The patient has NOT had contact with known/suspected case of Coronavirus?. - Social history:: Smoking status: Patient reports the use of cigarette tobacco products, smokes one-half pack cigarettes per day. - Ebola Screening: : Patient negative for fever greater than or equal to 101.5 degrees Fahrenheit, and additional compatible Ebola Virus Disease symptoms. Screenin:15 Abuse screen: Denies threats or abuse. Nutritional screening: No deficits noted. vc Tuberculosis screening: No symptoms or risk factors identified. Fall Risk Fall in past 12 months (25 points). IV access (20 points). Total Callejas Fall Scale indicates High Risk Score (45 or more points). Fall prevention measures have been instituted. Side Rails Up X 2 Frequent Obs/Assessments Occuring. Assessment: 14:15 General: Appears in no apparent distress. uncomfortable, Behavior is calm, cooperative, vc appropriate for age. Pain: Complains of pain in RIGHT RIB CAGE, LEFT ANTERIOR SHOULDER. Neuro: Oriented to person, place, time. Cardiovascular: Capillary refill < 3 seconds Patient's skin is warm and dry. Respiratory: Reports shortness of breath pain with respiration Respiratory effort is even, unlabored, weak. GI: No signs and/or symptoms were reported involving the gastrointestinal system. : No signs and/or symptoms were reported regarding the genitourinary system. Derm: Skin is intact, is healthy with good turgor. 15:16 Reassessment: Patient and/or family updated on plan of care and expected duration. Pain vc level reassessed. Patient is alert, oriented x 3, equal unlabored respirations, skin warm/dry/pink. Musculoskeletal: Circulation, motion, and sensation intact. Range of motion: intact in all extremities. 16:15 Reassessment: Patient and/or family updated on plan of care and expected duration. Pain vc level reassessed. Patient is alert, oriented x 3, equal unlabored respirations, skin warm/dry/pink. Patient denies pain at this time. Patient states feeling better. Vital Signs: 13:58 BP 144 / 86; Pulse 74; Resp 20; Temp 98.0(TE); Pulse Ox 99% on R/A; Weight 93.44 kg rb1 (R); Height 5 ft. 11 in. (180.34 cm) (R); Pain 9/10; 15:23 BP 133 / 93; Pulse 71; Resp 18; Temp 97.9(TE); Pulse Ox 98% on R/A; mh5 16:00 BP 126 / 92; Pulse 65; Resp 18; Pulse Ox 99% on R/A; vc 16:30 BP 138 / 82; Pulse 58; Pulse Ox 98% on R/A; Pain 0/10; vc 13:58 Body Mass Index 28.73 (93.44 kg, 180.34 cm) rb1 ED Course: 13:36 Patient arrived in ED. as 13:58 Arm band placed on left wrist. rb1 13:59 Triage completed. rb1 14:05 Pk Bruno, JEFFERSON is PHCP. pm1 14:05 Geovany Barksdale MD is Attending Physician. pm1 14:26 Shira Zuniga, EDWINA is Primary Nurse. vc 14:29 Patient has correct armband on for positive identification. Bed in low position. Call mh5 light in reach. Side rails up X 1. Warm blanket given. Pulse ox on. NIBP on. 14:55 Abdomen Wo Contrast In Process Unspecified. EDMS 14:56 CT Chest Wo Con In Process Unspecified. EDMS 15:00 Missed attempt(s): 22 gauge in left forearm. vc 15:20 Missed attempt(s): 22 gauge in left in right forearm. antecubital area. mh5 15:21 Inserted saline lock: 22 gauge in left antecubital area, using aseptic technique. ss 16:50 IV discontinued, intact, bleeding controlled, No redness/swelling at site. vc 17:05 No provider procedures requiring assistance completed. vc Administered Medications: 15:30 Drug: morphine 4 mg Route: IVP; Site: left antecubital; vc 15:30 Drug: Zofran 4 mg Route: IVP; Site: left antecubital; vc Outcome: 16:15 Discharge ordered by MD. pm1 16:50 Discharged to home ambulatory. vc 16:50 Condition: good 16:50 Discharge instructions given to patient, Instructed on discharge instructions, follow up and referral plans. medication usage, Demonstrated understanding of instructions, follow-up care, medications, Prescriptions given X 1. 16:55 Patient left the ED. vc Signatures: Dispatcher [employer] EDMD Barbra Owen Shelby, RN RN ss Hannah Webber RN RN rb1 Pk Bruno, JEFFERSON WET END HELPER pm1 Shanti Owen [facility] Shira Zuniga RN RN vc Corrections: (The following items were deleted from the chart) 17:04 17:03 Patient left the ED. vc vc
--- NOTE | 2019-05-11 16:16 | EDPHYS ---
Physician Documentation [facility] Name: Celsa Lorenzo Age: 64 yrs Sex: Female : 1955 Arrival Date: 05/11/2019 Time: 13:36 Bed 16 Private MD: ED Physician Geovany Barksdale HPI: 05/11 14:25 This 64 yrs old Female presents to ER via Ambulatory with complaints of Rib pm1 Injury. 14:25 The patient or guardian reports chest pain that is located primarily in the anterior pm1 aspect of left upper chest and right lateral posterior chest. Onset: The symptoms/episode began/occurred last night. The pain does not radiate. Associated signs and symptoms: Pertinent negatives: abdominal pain, cough, headache, nausea, shortness of breath, vomiting. The chest pain is described as aching. Duration: The patient or guardian reports a single episode, that is still ongoing. Modifying factors: The symptoms are alleviated by shallow breathing. the symptoms are aggravated by cough, deep breath, palpation of area. Severity of pain: in the emergency department the pain is unchanged. The patient has experienced a previous episode, approximately 1 years ago. It is unknown whether or not the patient has recently seen a physician. Patient was drinking alcohol last night with friends and she drank without any food in her stomach. She fell last night inside her house. She was walking down a step and landed on her right side on the step and then she got up and then fell on her left upper chest against a table. Presenting with right lateral rib pain and left upper chest pain. No head injury, headache, neck pain, LOC. Patient walking without any difficulty. No hip pain or extremity injury. Historical: - Allergies: 13:58 Betadine; rb1 13:58 Iodine; Topical only; rb1 - PMHx: 13:58 ADD/ADHD; Atrial Fib; cardioversion; CHF; COPD; Hypertension; mitral valve stenosis; rb1 pulmonary HTN; resp failure; Rheumatoid Arthritis; - PSHx: 13:58 Appendectomy; Tubal ligation; rb1 - Immunization history:: Adult Immunizations up to date. - Coronavirus screen:: The patient has NOT traveled to [place], [place], or [place] in the past 14 days. The patient has NOT had contact with known/suspected case of Coronavirus?. - Social history:: Smoking status: Patient reports the use of cigarette tobacco products, smokes one-half pack cigarettes per day. - Ebola Screening: : Patient negative for fever greater than or equal to 101.5 degrees Fahrenheit, and additional compatible Ebola Virus Disease symptoms. ROS: 14:25 Constitutional: Negative for fever, chills, and weight loss, Neck: Negative for injury, pm1 pain, and swelling, Respiratory: Negative for shortness of breath, cough, wheezing, and pleuritic chest pain. 14:25 Abdomen/GI: Negative for abdominal pain, nausea, vomiting, diarrhea, and constipation, Back: Negative for injury and pain, MS/Extremity: Negative for injury and deformity, Skin: Negative for injury, rash, and discoloration, Neuro: Negative for headache, weakness, numbness, tingling, and seizure. 14:25 Cardiovascular: Positive for pain to right lateral rib cage and left upper chest pain, Negative for edema, palpitations. Exam: 14:25 Constitutional: This is a well developed, well nourished patient who is awake, alert, pm1 and in no acute distress. Head/Face: Normocephalic, atraumatic. Neck: Trachea midline, no thyromegaly or masses palpated, and no cervical lymphadenopathy. Supple, full range of motion without nuchal rigidity, or vertebral point tenderness. No Meningismus. 14:25 Cardiovascular: Regular rate and rhythm with a normal S1 and S2. No gallops, murmurs, or rubs. No pulse deficits. Respiratory: Lungs have equal breath sounds bilaterally, clear to auscultation and percussion. No rales, rhonchi or wheezes noted. No increased work of breathing, no retractions or nasal flaring. Abdomen/GI: Soft, non-tender, with normal bowel sounds. No distension or tympany. No guarding or rebound. No evidence of tenderness throughout. Back: No spinal tenderness. No costovertebral tenderness. Full range of motion. Skin: Warm, dry with normal turgor. Normal color with no rashes, no lesions, and no evidence of cellulitis. MS/ Extremity: Pulses equal, no cyanosis. Neurovascular intact. Full, normal range of motion. 14:25 Chest/axilla: Inspection: normal, Palpation: crepitus, is not appreciated, tenderness, that is mild, of the anterior aspect of left upper chest and right lateral posterior chest, that totally reproduces the patient's complaints. 14:25 Neuro: Orientation: is normal, Motor: is normal, moves all fours, Sensation: is normal, no obvious gross deficits. Vital Signs: 13:58 BP 144 / 86; Pulse 74; Resp 20; Temp 98.0(TE); Pulse Ox 99% on R/A; Weight 93.44 kg rb1 (R); Height 5 ft. 11 in. (180.34 cm) (R); Pain 9/10; 15:23 BP 133 / 93; Pulse 71; Resp 18; Temp 97.9(TE); Pulse Ox 98% on R/A; mh5 16:00 BP 126 / 92; Pulse 65; Resp 18; Pulse Ox 99% on R/A; vc 16:30 BP 138 / 82; Pulse 58; Pulse Ox 98% on R/A; Pain 0/10; vc 13:58 Body Mass Index 28.73 (93.44 kg, 180.34 cm) rb1 MDM: 14:05 Patient medically screened. pm1 16:13 Data reviewed: vital signs. Data interpreted: Pulse oximetry: on room air is 98 %. pm1 Interpretation: normal. 16:14 Counseling: I had a detailed discussion with the patient and/or guardian regarding: the pm1 historical points, exam findings, and any diagnostic results supporting the discharge/admit diagnosis, radiology results, the need for outpatient follow up, a family practitioner, to return to the emergency department if symptoms worsen or persist or if there are any questions or concerns that arise at home. 16:15 ED course: Patient's pain improved with medication given in ER. Reports 2-06/09. Patient pm1 has incentive spirometer at home. 05/11 14:25 Order name: CT Chest Wo Con; Complete Time: 15:51 pm1 05/11 14:40 Order name: CT Abdomen - PO Contrast Only pm1 05/11 14:25 Order name: IV Saline Lock; Complete Time: 15:22 pm1 05/11 14:52 Order name: Abdomen Wo Contrast EDMS Administered Medications: 15:30 Drug: morphine 4 mg Route: IVP; Site: left antecubital; vc 15:30 Drug: Zofran 4 mg Route: IVP; Site: left antecubital; vc Disposition: 17:41 Co-signature as Attending Physician, Geovany Barksdale MD. rn Disposition: 05/11/19 16:15 Discharged to Home. Impression: Multiple fractures of ribs, right side. - Condition is Stable. - Discharge Instructions: Rib Fracture, Incentive Spirometer. - Prescriptions for Tylenol- Codeine #3 300-30 mg Oral Tablet - take 2 tablet by ORAL route every 6 hours As needed; 30 tablet. - Medication Reconciliation Form, Thank You Letter, Antibiotic Education, Prescription Opioid Use form. - Follow up: Emergency Department; When: As needed; Reason: Worsening of condition. Follow up: Private Physician; When: 2 - 3 days; Reason: Recheck today's complaints, Continuance of care, Re-evaluation by your physician. - Problem is new. - Symptoms have improved. Signatures: Dispatcher [employer] EDMS Geovany Barksdale MD MD rn Barber, Rebecca RN RN rb1 Pk Bruno NP WATER FILTRATION TECHNICIAN pm1 Shira Zuniga RN RN vc Corrections: (The following items were deleted from the chart) 17:03 16:15 05/11/2019 16:15 Discharged to Home. Impression: Multiple fractures of ribs, vc right side. Condition is Stable. Forms are Medication Reconciliation Form, Thank You Letter, Antibiotic Education, Prescription Opioid Use. Follow up: Emergency Department; When: As needed; Reason: Worsening of condition. Follow up: Private Physician; When: 2 - 3 days; Reason: Recheck today's complaints, Continuance of care, Re-evaluation by your physician. Problem is new. Symptoms have improved. pm1
[2019-05-11 17:22] VITALS: BP 133/93; TEMP 97.9; O2SAT 98
--- NOTE | 2019-05-12 11:10 | RAD REPORT ---
EXAM DESCRIPTION: CT - Abdomen Wo Contrast CLINICAL HISTORY: Chest pain PAIN TECHNIQUE Noncontrast CT abdomen was performed. COMPARISON: Thorax Wo Con dated 04/21/2017; Abdomen Wo Contrast dated 05/11/2019 FINDINGS: CT chest and CT abdomen without contrast were performed Diffuse emphysema is present. No evidence of focal pulmonary infiltrate or mass. No pleural or perica rdial fluid. No pneumothorax seen. Cardiac size is mildly enlarged, particularly the left atrium. Nondisplaced slightly angulated fractures right anterolateral fourth, fifth, sixth and seventh ribs. A definitive left-sided rib fracture is not seen. Scoliotic curvature of the thoracolumbar spine is p resent. Noncontrast assessment of the liver, spleen, pancreas, adrenal glands and kidneys within normal limit s. Cholelithiasis is seen. All CT scans are performed using dose optimization technique as appropriate and may include automated exposure control or mA/KV adjustment according to patient size. IMPRESSION: Slightly angulated nondisplaced right anterolateral rib fractures suspected. No pneumoth orax. Moderate COPD. Cholelithiasis.
== END 2019-05-11 17:03 | disposition home or self-care (01) ==
LOC: ER 13:34
DX: S22.41XA Multiple fractures of ribs, right side, initial encounter for closed fracture (principal); S27.9XXA Injury of unspecified intrathoracic organ, initial encounter; W10.9XXA Fall (on) (from) unspecified stairs and steps, initial encounter; Y93.9 Activity, unspecified; Y92.9 Unspecified place or not applicable; Z91.09 Other allergy status, other than to drugs and biological substances
CPT/HCPCS: 74150; 71250; 96375; 96374; 99284; J2405

== ENCOUNTER 2019-06-11 07:53 | Emergency (ER) | payer MEDICARE, OTHER ==
--- OUTSIDE RECORDS SUMMARY | 2019-06-11 07:57 | XMS REPORT ---
:1955 Author Organization [facility] Address [address] [place] [address] Dr. Neumann [address] [place] [id number] Care Team Providers Name Role Phone Unavailable Unavailable Unavailable Problems This patient has no known problems. Allergies, Adverse Reactions, Alerts This patient has no known allergies or adverse reactions. Medications This patient has no known medications.
--- OUTSIDE RECORDS SUMMARY | 2019-06-11 08:00 | XMS REPORT | Summary of Care ---
:1955 Author Organization [facility] Address [address] [place] [id number] Care Team Providers Name Role Phone [facility] Primary Care Provider Reason for Visit Reason Comments Refill Request Encounter Details Date Type Department Care Team Description 05/07/2019 Refill [facility] Cardiology- Anna Marie Castellon MD Refill Request [place] [address] [facility] [address] [facility], [address] [place] [address] [place] [phone] Allergies Active Allergy Reactions Severity Noted Date Comments Avocado Other - See comments 11/05/2015 Pt reports upset stomach after consumption but no n/v. [place] ext. [id number] Iodine Hives 08/07/2007 topical documented as of this encounter (statuses as of 05/15/2019) Medications Medication Sig Dispensed Refills Start Date End Date Status NITROGLYCERIN 0.4 MG SL 1 Tab SL Q5MIN 30 0 08/08/2007 Active SUBL PRN METHOTREXATE SODIUM 2.5 Three tabs PO 3 months 3 10/31/2007 Active MG ORAL TABIndications: Once a week Rheumatoid arthritis(714.0), Pain in joint, other specified sites Additional information Patient taking differently: eight tabs PO Once a week, Reported on 11/05/2015 4:28 PM FOLIC ACID 1 MG ORAL TABIndications: One tab PO Daily 3 months 3 2007 Active Rheumatoid arthritis(714.0), Pain in joint, other specified sites Additional information Patient taking differently: one tab once a day, Reported on 11/05/2015 4:28 PM buPROPion SR (WELLBUTRIN Take 150 mg by 0 Active SR) 150 mg SR mouth daily. tabletIndications: 1tab Indications: 1tab Qam 2tabs Qpm Qam 2tabs Qpm SERTraline (ZOLOFT) 50 mg Take 50 mg by 0 Active tablet mouth daily. abatacept (ORENCIA) 125 inject 125 mg 0 Active mg/mL under the skin injectionIndications: every Sunday. arthritis Indications: ARTHRITIS meloxicam 15 mg tablet Take 15 mg by 0 Active mouth daily. predniSONE 5 mg tablet Take 5 mg by mouth 0 Active daily. tofacitinib (XELJANZ XR) Take 11 mg by 0 Active 11 mg Tb24 mouth. traZODONE 50 mg tablet Take 1 tablet by 20 tablet 0 09/18/ Active mouth at bedtime. 2018 KCL 20 mEq tablet Take 1 tablet by 30 tablet 2 11/01/ Active mouth daily. 2018 sucralfate (CARAFATE) 1 Take 1 tablet by 30 tablet 0 11/11/ Active gram tablet mouth before meals 2017 and at bedtime. sotalol 120 mg Take 1 tablet by 60 tablet 0 03/12/ Active tabletIndications: mouth every 2018 Chronic atrial (twelve) hours. fibrillation furosemide 40 mg Take 1 tablet by 60 tablet 0 05/15/ Active tabletIndications: mouth every 2019 Chronic atrial morning and fibrillation evening. digoxin 125 mcg (0.125 Take 1 tablet by 30 tablet 0 05/15/ Active mg) tablet mouth daily. 2019 apixaban 5 mg Take 1 tablet by 60 tablet 0 05/15/ Active tabletIndications: atrial mouth 2 (two) 2019 fibrillation times daily. Indications: atrial fibrillation furosemide 40 mg Take 1 tablet by 60 tablet 3 12/05/ 05/15/ Discontinued tabletIndications: mouth every 2018 2019 (Reorder) Chronic atrial morning and fibrillation evening. Take 40 mg in AM and 20 mg in PM digoxin 125 mcg tablet Take 1 tablet by 30 tablet 1 05/15/ Discontinued mouth daily. 2018 2019 (Reorder) apixaban 5 mg Take 1 tablet by 60 tablet 0 04/16/ 05/15/ Discontinued tabletIndications: atrial mouth 2 (two) 2019 2019 (Reorder) fibrillation times daily. Indications: atrial fibrillation documented as of this encounter (statuses as of 05/15/2019) Active Problems Problem Noted Date Acute on chronic diastolic congestive heart failure 09/14/2017 Pulmonary embolism 12/11/2016 Atrial fibrillation 11/05/2016 Obesity (BMI 30-39.9) 11/05/2016 Chronic diastolic congestive heart failure 11/04/2015 Persistent atrial fibrillation 11/04/2015 Pulmonary hypertension 11/04/2015 Complication of preventive medicine procedure 11/03/2015 Rheumatoid arthritis 08/21/2007 Overview: ICD10 Diagnosis Term Division Sales Manager Utility Mitral stenosis 08/21/2007 Chest pain 08/21/2007 Overview: ICD10 Diagnosis Term Division Sales Manager Utility documented as of this encounter (statuses as of 05/15/2019) Resolved Problems Problem Noted Date Resolved Date Atrial fibrillation with RVR 11/05/2016 02/02/2017 A-fib 11/05/2015 02/02/2017 Hematoma of abdominal wall 11/04/2015 02/02/2017 New onset atrial fibrillation 10/23/2015 02/02/2017 documented as of this encounter (statuses as of 05/15/2019) Social History Tobacco Use Types Packs/Day Years Used Date Former Smoker Cigarettes 1 40 Smokeless Tobacco: Never Used Alcohol Use Drinks/Week oz/Week Comments Yes 0 Standard drinks or equivalent 0.0 ocassional on the weekends Sex Assigned at Date Recorded Not on file Job Start Date Occupation Industry Not on file Not on file Not on file Travel History Travel Start Travel End No recent travel history available. documented as of this encounter Last Filed Vital Signs Not on filedocumented in this encounter Plan of Treatment Date Type Specialty Care Team Description 05/27/2019 Office Visit Cardiology Anna Marie Castellon MD [address] [place] [id number] Health Maintenance Due Date Last Done Comments PNEUMOCOCCAL 0-64 YEARS COMBINED SERIES (1 of 1 - 1963 PPSV23) DTaP,Tdap,and Td Vaccines (1 - Tdap) 01/31/1968 PAP SMEAR 1978 Breast Cancer Screening (MAMMOGRAM) 1997 COLONOSCOPY 2007 Zoster Recombinant Vaccine (SHINGRIX) (1 of 2) 2007 LUNG CANCER SCREEN: Recommended for age 55-80 with 30 12/10/2017 12/10/2016 + pack year history INFLUENZA VACCINE (#1) 2018 HEPATITIS C (HCV) SCREEN Completed 10/31/2007 documented as of this encounter Results Not on filedocumented in this encounter Visit Diagnoses Diagnosis Chronic atrial fibrillation Atrial fibrillation documented in this encounter Insurance Payer Benefit Plan / Subscriber ID Effective Dates Phone Address Type Group COMMERCIAL COMMERCIAL [id number] 2017-Prese HMO/PPO/PO NON-CONTRACT NON-CONTRACT nt S GENERIC GENERIC documented as of this encounter
--- OUTSIDE RECORDS SUMMARY | 2019-06-11 08:00 | XMS REPORT | Summary of Care ---
:1955 Author Organization [facility] Address [address] [place] [address] Care Team Providers Name Role Phone [facility] Primary Care Provider Reason for Visit Reason Comments Refill Request Encounter Details Date Type Department Care Team Description 04/13/2019 Refill [facility] Cardiology- Anna Marie Castellon MD Refill Request [place] [address] [facility] 146 [facility], [address] [place] [address] [place] [phone] Allergies Active Allergy Reactions Severity Noted Date Comments Avocado Other - See comments 11/05/2015 Pt reports upset stomach after consumption but no n/v. Dexter Sekou RD ext. [id number] Iodine Hives 08/07/2007 topical documented as of this encounter (statuses as of 04/16/2019) Medications Medication Sig Dispensed Refills Start Date [...] 11/11/ Active gram tablet mouth before meals 2018 and at bedtime. furosemide 40 mg Take 1 tablet by 60 tablet 3 12/05/ Active tabletIndications: mouth every 2018 Chronic atrial morning and fibrillation evening. Take 40 mg in AM and 20 mg in PM digoxin 125 mcg tablet Take 1 tablet by 30 tablet 1 12/13/ Active mouth daily. 2019 sotalol 120 mg Take 1 tablet by 60 tablet 0 03/12/ Active tabletIndications: mouth every 2018 Chronic atrial (twelve) hours. fibrillation apixaban 5 mg Take 1 tablet by 60 tablet 0 04/16/ Active tabletIndications: atrial mouth 2 (two) 2019 fibrillation times daily. Indications: atrial fibrillation apixaban 5 mg Take 1 tablet by 60 tablet 0 03/12/ 04/13/ Discontinued tabletIndications: atrial mouth 2 (two) 2018 2019 (Reorder) fibrillation times daily. Indications: atrial fibrillation documented as of this encounter (statuses as of 04/16/2019) Active Problems Problem Noted Date Acute on chronic diastolic congestive heart failure 09/14/2017 Pulmonary embolism 12/11/2016 Atrial fibrillation 11/05/2016 Obesity (BMI 30-39.9) 11/05/2016 Chronic diastolic congestive heart failure 11/04/2015 Persistent atrial fibrillation 11/04/2015 Pulmonary hypertension 11/04/2015 Complication of preventive medicine procedure 11/03/2015 Rheumatoid arthritis 08/21/2007 Overview: ICD10 Diagnosis Term Online Merchandiser Utility Mitral stenosis 08/21/2007 Chest pain 08/21/2007 Overview: ICD10 Diagnosis Term Online Merchandiser Utility documented as of this encounter (statuses as of 04/16/2019) Resolved Problems Problem Noted Date Resolved Date Atrial fibrillation with RVR 11/05/2016 02/02/2017 A-fib 11/05/2015 02/02/2017 Hematoma of abdominal wall 11/04/2015 02/02/2017 New onset atrial fibrillation 10/23/2015 02/02/2017 documented as of this encounter (statuses as of 04/16/2019) Social History Tobacco Use Types Packs/Day Years [...] filedocumented in this encounter Plan of Treatment Name Type Priority Associated Diagnoses Order Schedule DIGOXIN, LEVEL LAB Routine Chronic atrial Expected: 04/16/2019, fibrillation Expires: 07/16/2019 CBC W/O DIFF LAB Routine Chronic atrial Expected: 04/16/2019, fibrillation Expires: 07/16/2019 COMP. METABOLIC PANEL LAB Routine Chronic atrial Expected: 04/16/2019, ([id number]) fibrillation Expires: 07/16/2019 Health Maintenance Due Date Last Done Comments [...] Dates Phone Address Type Group COMMERCIAL COMMERCIAL [id number] 2017-[employer]ilma HMO/PPO/PO NON-CONTRACT NON-CONTRACT nt S GENERIC GENERIC documented as of this encounter
--- OUTSIDE RECORDS SUMMARY | 2019-06-11 08:01 | XMS REPORT | Summary of Care ---
:1955 Author Organization [facility] Address [address] [place] [address] Care Team Providers Name Role Phone [facility] Primary Care Provider Reason for Visit Reason Comments Refill Request Encounter Details Date Type Department Care Team Description 05/14/2019 Refill [facility] Cardiology- Anna Marie Castellon MD Refill Request [place] 146 [facility] 146 [facility], [address] [place] [address] [place] [phone] Allergies Active Allergy Reactions Severity Noted Date Comments Avocado Other - See comments 11/05/2015 Pt reports upset stomach after consumption but no n/v. Dexter Sekou RD ext. [id number] Iodine Hives 08/07/2007 topical documented as of this encounter (statuses as of 05/17/2019) Medications Medication Sig Dispensed Refills Start Date [...] tablet 0 09/18/ Active mouth at bedtime. 2017 KCL 20 mEq tablet Take 1 tablet by 30 tablet 2 11/01/ Active mouth daily. 2017 sucralfate (CARAFATE) 1 Take 1 tablet by 30 tablet 0 11/11/ Active gram tablet mouth before meals 2017 and at bedtime. furosemide 40 mg Take 1 tablet by 60 tablet 3 05/17/ Active tabletIndications: mouth every 2019 Chronic atrial morning and fibrillation evening. Take 40 mg in AM and 20 mg in PM digoxin 125 mcg (0.125 Take 1 tablet by 30 tablet 1 05/17/ Active mg) tablet mouth daily. 2020 sotalol 120 mg Take 1 tablet by 60 tablet 0 05/17/ Active tabletIndications: mouth every 2019 Chronic atrial (twelve) hours. fibrillation apixaban 5 mg Take 1 tablet by 60 tablet 0 05/17/ Active tabletIndications: atrial mouth 2 (two) 2020 fibrillation times daily. Indications: atrial fibrillation sotalol 120 mg Take 1 tablet by 60 tablet 0 03/12/ 05/14/ Discontinued tabletIndications: mouth every 2018 (Reorder) Chronic atrial (twelve) hours. fibrillation documented as of this encounter (statuses as of 05/17/2019) Active Problems Problem Noted Date Acute on chronic diastolic congestive heart failure 09/14/2017 Pulmonary embolism 12/11/2016 Atrial fibrillation 11/05/2016 Obesity (BMI 30-39.9) 11/05/2016 Chronic diastolic congestive heart failure 11/04/2015 Persistent atrial fibrillation 11/04/2015 Pulmonary hypertension 11/04/2015 Complication of preventive medicine procedure 11/03/2015 Rheumatoid arthritis 08/21/2007 Overview: ICD10 Diagnosis Term Station Engineer Main Line Utility Mitral stenosis 08/21/2007 Chest pain 08/21/2007 Overview: ICD10 Diagnosis Term Station Engineer Main Line Utility documented as of this encounter (statuses as of 05/17/2019) Resolved Problems Problem Noted Date Resolved Date Atrial fibrillation with RVR 11/05/2016 02/02/2017 A-fib 11/05/2015 02/02/2017 Hematoma of abdominal wall 11/04/2015 02/02/2017 New onset atrial fibrillation 10/23/2015 02/02/2017 documented as of this encounter (statuses as of 05/17/2019) Social History Tobacco Use Types Packs/Day Years [...] Office Visit Cardiology Anna Marie Castellon MD [address] [place] [address] [phone] Health Maintenance Due Date Last Done Comments [...] Dates Phone Address Type Group COMMERCIAL COMMERCIAL [id number] 2017-[employer]il[employer] HMO/PPO/PO NON-CONTRACT NON-CONTRACT nt S GENERIC GENERIC documented as of this encounter
--- OUTSIDE RECORDS SUMMARY | 2019-06-11 08:01 | XMS REPORT | Summary of Care ---
:1955 Author Organization [facility] Address [address] [place] [address] Care Team Providers Name Role Phone [facility] Primary Care Provider Reason for Referral (Routine) Status Reason Specialty Diagnoses / Procedures Referred By Contact Referred To Contact Closed Cardiology Diagnoses Nonrheumatic mitral valve stenosis Anna Marie Castellon MD Procedures ECHO ROUTINE W/DOPPLER COLOR Preferred Location: [facility] [address] [place] [address] [address] [place] [address] Reason for Visit Reason Comments Follow-up 12 Month Atrial Fibrillation Ekg Done in office today Refill Request Encounter Details Date Type Department Care Team Description 05/27/2019 Office Visit [facility] Anna Marie Castellon MD ARELLANO (dyspnea on exertion) (Primary Dx); Cardiology- [address] Chronic diastolic congestive heart failure; [address] [place] [address] [address]; [address], [address] Nonrheumatic mitral valve stenosis; [place] [address] Permanent atrial fibrillation; [phone] Chronic atrial fibrillation [phone] Allergies Active Allergy Reactions Severity Noted Date Comments Avocado Other - See comments 11/05/2015 Pt reports upset stomach after consumption but no n/v. Dexter Sapp RD ext. [phone] Iodine Hives 08/07/2007 topical documented as of this encounter (statuses as of 05/27/2019) Medications Medication Sig Dispensed Refills Start End Date Status Date NITROGLYCERIN 0.4 1 Tab SL Q5MIN 30 0 05/08/200 Active MG SL SUBL PRN 8 buPROPion SR Take 150 mg by 0 Active (WELLBUTRIN SR) mouth daily. 150 mg SR Indications: tabletIndications 1tab Qam 2tabs : 1tab Qam 2tabs Qpm Qpm SERTraline Take 50 mg by 0 Active (ZOLOFT) 50 mg mouth daily. tablet meloxicam 15 mg Take 15 mg by 0 Active tablet mouth daily. tofacitinib Take 11 mg by 0 Active (XELJANZ XR) 11 mouth. mg Tb24 digoxin 125 mcg Take 1 tablet by 90 tablet 3 Active (0.125 mg) mouth daily. 0 tabletIndications : ARELLANO (dyspnea on exertion), Chronic diastolic congestive heart failure, Pulmonary hypertension, Nonrheumatic mitral valve stenosis, Permanent atrial fibrillation, Chronic atrial fibrillation furosemide 40 mg Take 1 tablet by 180 tablet 3 Active tabletIndications mouth every 0 : Chronic atrial morning and fibrillation evening. sotalol 120 mg Take 1 tablet by 180 tablet 3 Active tabletIndications mouth every 12 0 : Chronic atrial (twelve) hours. fibrillation apixaban 5 mg Take 1 tablet by 180 tablet 3 Active tabletIndications mouth 2 (two) 0 : atrial times daily. fibrillation Indications: atrial fibrillation KCL 20 mEq Take 1 tablet by 90 tablet 3 Active tabletIndications mouth daily. 0 : ARELLANO (dyspnea on exertion), Chronic diastolic congestive heart failure, Pulmonary hypertension, Nonrheumatic mitral valve stenosis, Permanent atrial fibrillation, Chronic atrial fibrillation METHOTREXATE Three tabs PO 3 months 3 05/27/19 Discontinued SODIUM 2.5 MG Once a week 8 20 ORAL TABIndications: Rheumatoid arthritis(714.0), Pain in joint, other specified sites FOLIC ACID 1 MG One tab PO Daily 3 months 3 05/27/19 Discontinued ORAL 8 20 TABIndications: Rheumatoid arthritis(714.0), Pain in joint, other specified sites abatacept inject 125 mg 0 05/27/19 Discontinued (ORENCIA) 125 under the skin 20 mg/mL every Sunday. injectionIndicati Indications: ons: arthritis ARTHRITIS predniSONE 5 mg Take 5 mg by 0 05/27/19 Discontinued tablet mouth daily. 20 traZODONE 50 mg Take 1 tablet by 20 tablet 0 05/27/19 Discontinued tablet mouth at 8 20 bedtime. KCL 20 mEq tablet Take 1 tablet by 30 tablet 2 05/27/19 Discontinued mouth daily. 8 20 (Reorder) sucralfate Take 1 tablet by 30 tablet 0 05/27/19 Discontinued (CARAFATE) 1 gram mouth before 8 20 tablet meals and at bedtime. furosemide 40 mg Take 1 tablet by 60 tablet 0 05/27/19 Discontinued tabletIndications mouth every 0 20 : Chronic atrial morning and fibrillation evening. digoxin 125 mcg Take 1 tablet by 30 tablet 0 05/27/19 Discontinued (0.125 mg) tablet mouth daily. 0 20 apixaban 5 mg Take 1 tablet by 60 tablet 0 05/27/19 Discontinued tabletIndications mouth 2 (two) 0 20 (Reorder) : atrial times daily. fibrillation Indications: atrial fibrillation furosemide 40 mg Take 1 tablet by 60 tablet 3 05/27/19 Discontinued tabletIndications mouth every 0 20 (Reorder) : Chronic atrial morning and fibrillation evening. Take 40 mg in AM and 20 mg in PM digoxin 125 mcg Take 1 tablet by 30 tablet 1 05/27/19 Discontinued (0.125 mg) tablet mouth daily. 0 20 (Reorder) sotalol 120 mg Take 1 tablet by 60 tablet 0 05/27/19 Discontinued tabletIndications mouth every 12 0 20 (Reorder) : Chronic atrial (twelve) hours. fibrillation apixaban 5 mg Take 1 tablet by 60 tablet 0 05/27/19 Discontinued tabletIndications mouth 2 (two) 0 20 : atrial times daily. fibrillation Indications: atrial fibrillation documented as of this encounter (statuses as of 05/27/2019) Active Problems Problem Noted Date Acute on chronic diastolic congestive heart failure 09/14/2017 Pulmonary embolism 12/11/2016 Atrial fibrillation 11/05/2016 Obesity (BMI 30-39.9) 11/05/2016 Chronic diastolic congestive heart failure 11/04/2015 Persistent atrial fibrillation 11/04/2015 Pulmonary hypertension 11/04/2015 Complication of preventive medicine procedure 11/03/2015 Rheumatoid arthritis 08/21/2007 Overview: ICD10 Diagnosis Term Chief Technology Officer Utility Mitral stenosis 08/21/2007 Chest pain 08/21/2007 Overview: ICD10 Diagnosis Term Chief Technology Officer Utility documented as of this encounter (statuses as of 05/27/2019) Resolved Problems Problem Noted Date Resolved Date Atrial fibrillation with RVR 11/05/2016 02/02/2017 A-fib 11/05/2015 02/02/2017 Hematoma of abdominal wall 11/04/2015 02/02/2017 New onset atrial fibrillation 10/23/2015 02/02/2017 documented as of this encounter (statuses as of 05/27/2019) Social History Tobacco Use Types Packs/Day Years [...] of this encounter Last Filed Vital Signs Vital Sign Reading Time Taken Comments Blood Pressure 133/69 05/27/2019 9:46 AM DECORATOR INSPECTOR Pulse 67 05/27/2019 9:46 AM DECORATOR INSPECTOR Temperature - - Respiratory Rate 19 05/27/2019 9:46 AM DECORATOR INSPECTOR Oxygen Saturation 97% 05/27/2019 9:46 AM DECORATOR INSPECTOR Inhaled Oxygen Concentration - - Weight 91.9 kg (202 lb 8 oz) 05/27/2019 9:46 AM DECORATOR INSPECTOR Height 180.3 cm (5' 11") 05/27/2019 9:46 AM DECORATOR INSPECTOR Body Mass Index 28.24 05/27/2019 9:46 AM DECORATOR INSPECTOR documented in this encounter Progress Notes Anna Marie Castellon MD - 05/27/2019 9:20 AM CST CARDIOLOGY CLINIC NOTE 05/27/2019 Reason for Referral/Presenting Complaint: Afib PCP: [facility] History of Present Illness: Celsa Lorenzo is a 64 years old female with history of rheumatoid arthritis, smoking, obesity, HFpEF, Afib, and 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 She has been seen in hospitals several times. She developed Afib and underwent DCC. She remained in NSR for over a year. Then she had recurrent Afib and underwent repeat DCC which did not last long even on sotalol. She has been on sotalol/digoxin. She was admitted for overload in 2018. Currently feeling well. No edema. No orthopnea. Sleep study showed moderate MARCIA with hypoxia. C-PAP not covered by insurance. Taking Eliquis without bleeding. ARELLANO at half block. Mildly worsening for 2 months. No edema. Mild orthopnea. EKG--05/27/2019--reviewed by me--Annyib with VR 74 bpm, non-specific ST-T abnormality ECHO 2017 The overall left ventricular function is normal. Ejection Fraction=60-65%. The left ventricular wall motion is normal. The left atrium is severely dilated. Doming of the mitral leaflets is noted. There is moderate mitral stenosis. There is moderate mitral regurgitation. Right ventricular systolic pressure is normal. Past Medical History: Past Medical History: Diagnosis Date A-fib CHF (congestive heart failure) COPD (chronic obstructive pulmonary disease) Mitral valve stenosis Pulmonary hypertension Rheumatoid arthritis, adult Current Medications: Current Outpatient Medications Medication Sig Dispense Refill apixaban 5 mg tablet Take 1 tablet by mouth 2 (two) times daily. Indications : atrial fibrillation 180 tablet 3 digoxin 125 mcg (0.125 mg) tablet Take 1 tablet by mouth daily. 90 tablet 3 furosemide 40 mg tablet Take 1 tablet by mouth every morning and evening. 180 tablet 3 KCL 20 mEq tablet Take 1 tablet by mouth daily. 90 tablet 3 sotalol 120 mg tablet Take 1 tablet by mouth every 12 (twelve) hours. 180 tablet 3 tofacitinib (XELJANZ XR) 11 mg Tb24 Take 11 mg by mouth. meloxicam 15 mg tablet Take 15 mg by mouth daily. buPROPion SR (WELLBUTRIN SR) 150 mg SR tablet Take 150 mg by mouth daily. Indications: 1tab Qam 2tabs Qpm SERTraline (ZOLOFT) 50 mg tablet Take 50 mg by mouth daily. NITROGLYCERIN 0.4 MG SL SUBL 1 Tab SL Q5MIN PRN 30 0 No current facility-administered medications for this visit. Allergies: Allergies Allergen Reactions Avocado Other - See comments Pt reports upset stomach after consumption but no n/v. Dexter Sapp RD ext. [id number] Iodine Hives topical Social History: Social History Socioeconomic History Marital status: Spouse name: Not on file Number of children: Not on file Years of education: Not on file Highest education level: Not on file Occupational History Not on file Social Needs Financial resource strain: Not on file Food insecurity: Worry: Not on file Inability: Not on file Transportation needs: Medical: Not on file Non-medical: Not on file Tobacco Use Smoking status: Former Smoker Packs/day: 1.00 Years: 40.00 Pack years: 40.00 Types: Cigarettes Smokeless tobacco: Never Used Substance and Sexual Activity Alcohol use: Yes Alcohol/week: 0.0 standard drinks Comment: ocassional on the weekends Drug use: No Sexual activity: Not on file Lifestyle Physical activity: Days per week: Not on file Minutes per session: Not on file Stress: Not on file Relationships Social connections: Talks on phone: Not on file Gets together: Not on file Attends rastafari service: Not on file Active member of club or organization: Not on file Attends meetings of clubs or organizations: Not on file Relationship status: Not on file Intimate partner violence: Fear of current or ex partner: Not on file Emotionally abused: Not on file Physically abused: Not on file Forced sexual activity: Not on file Other Topics Concern Not on file Social History Narrative Not on file Family History Family History Problem Relation Age of Onset [place] (myocardial infarction) Father 24 Review of Systems: (-)=Negative,(+)=Positive General: (-) fever, (-) chills, (-) weight change, (-) dizziness, (+) fatigue Skin: (-) rash HEENT: (-) headache, (-) change in vision Neck: (-) difficulty swallowing Heme: negative Resp: (-) cough, (+) dyspnea on exertion Cardio: (-) chest pain, (-) palpitations, (-) syncope GI: (-) vomiting, (-) diarrhea : negative Endo: (-) diabetes, (-) thyroid disease Neuro: (-) numbness, (-) tingling, (-) weakness Back: (-) pain KASSIE: (-) muscle pain, (-) claudication Psych: (-) anxiety, (-) depression Physical Examination: BP 133/69 (BP Location: Left arm, Patient Position: Sitting, BP CUFF SIZE: Adult Large) | Pulse 67| Resp 19 | Ht 5' 11" (1.803 m) | Wt 202 lb 8 oz ( 91.9 kg) | SpO2 97% | BMI 28.24 kg/m Constitutional: alert and oriented x 3 (person, place and date/time); no apparent distress ENT: normocephalic atraumatic, supple, no lymphadenopathy, no bruits, no JVD Lungs: - rhonchi Cardiovascular: S1, S2 normal rate, irregular; no murmurs, rubs or gallops GI: soft; non-tender; non-distended; normoactive bowel sounds : not examined Musculoskeletal: Extremities: no clubbing, cyanosis, or edema, weak ankle pulses Skin: no rashes Neuro: no focal deficits Labs: CBC BMP PT/INR WBC x10^3 (/CMM) Date Value 10/31/2007 9.7 WHITE BLOOD CELL COUNT-Q (Thousand/uL) Date Value 05/15/2019 10.8 NA (MMOL/L) Date Value 10/31/2007 138 SODIUM-Q (mmol/L) Date Value 05/15/2019 140 No results found for: PT PLT x10^3 (/CMM) Date Value 10/31/2007 234 PLATELET COUNT-Q (Thousand/uL) Date Value 05/15/2019 271 K (MMOL/L) Date Value 10/31/2007 4.2 POTASSIUM-Q (mmol/L) Date Value 05/15/2019 3.6 PT INR (no units) Date Value 09/01/2004 1.0 INR (no units) Date Value 11/13/2017 1.7 HGB (G/DL) Date Value 10/31/2007 12.9 HEMOGLOBIN-Q (g/dL) Date Value 05/15/2019 13.1 BUN (MG/DL) Date Value 10/31/2007 13 UREA NITROGEN (BUN)-Q (mg/dL) Date Value 05/15/2019 11 HCT (%) Date Value 10/31/2007 40.0 HEMATOCRIT-Q (%) Date Value 05/15/2019 39.5 CREATININE (MG/DL) Date Value 10/31/2007 0.87 CREATININE-Q (mg/dL) Date Value 05/15/2019 0.81 LIPID PROFILE GLUCOSE (MG/DL) Date Value 10/31/2007 79 GLUCOSE-Q (mg/dL) Date Value 05/15/2019 91 CHOL (MG/DL) Date Value 08/08/2007 136 TSH LDL CHOL (MG/DL) Date Value 08/08/2007 88 TSH Date Value 11/12/2016 3.31 mIU/L 08/08/2007 1.70 uIU/mL CARDIAC ENZYMES HDL CHOL (MG/DL) Date Value 08/08/2007 32 (L) CK (U/L) Date Value 12/12/2016 34 08/08/2007 20 (L) TRIG (MG/DL) Date Value 08/08/2007 79 LFTs CK-MB (ng/mL) Date Value 08/08/2007 .6 AST(SGOT) (U/L) Date Value 10/31/2007 21 AST-Q (U/L) Date Value 05/15/2019 21 TROPONIN I (ng/mL) Date Value 09/14/2017 0.009 08/08/2007 0.01 ALT(SGPT) (U/L) Date Value 10/31/2007 19 ALT-Q (U/L) Date Value 05/15/2019 16 BNP (pg/mL) Date Value 08/08/2007 20 EKG: Normal sinus rhythm. Normal EKG. Afib with RVR Echocardiogram: 2007: LVEF normal. Moderate MS, rheumatic 10/2016--Ejection Fraction=60-65%. The left ventricular wall motion is normal. The left atrium is severely dilated. Doming of the mitral leaflets is noted. There is moderate mitral stenosis. There is moderate mitral regurgitation. Right ventricular systolic pressure is normal. RONEL--10/2016 Mild MS Stress Test: 2007: Normal nuclear stress test Assessment/Plan: ICD-10-CM ICD-9-CM 1. ARELLANO (dyspnea on exertion) R06.09 786.09 2. Chronic diastolic congestive heart failure I50.32 428.32 428.0 3. Pulmonary hypertension I27.20 416.8 4. Nonrheumatic mitral valve stenosis I34.2 424.0 5. Permanent atrial fibrillation I48.21 427.31 6. Chronic atrial fibrillation I48.20 427.31 Persistent Afib--Failed DCC x 2 even on sotalol. Holter showed average HR 78 bpm. No significant palpitations. Continue sotalol/digoxin. On Eliquis. No bleeding. HFpEF--No significant volume overload. On lasix/KCL. Advised to avoid salt intake. Mitral stenosis--Mild to moderate on TTE and mild per RONEL. Will get ECHO to reassess. MARCIA--Moderate. Unable to use C-PAP due to insurance. Patient was counseled for lifestyle modifications including: diet, exercise, weight loss and smokingcessation. Labs reviewed--no concerns. RTC 12 months Anna Marie Castellon MD, FACC, FACP, JENS Water Treatment Operator, Division of Cardiology [facility] documented in this encounter Plan of Treatment Date Type Specialty Care Team Description 06/01/2020 Office Visit Cardiology Anna Marie Castellon MD [address] [facility] [address] [place], [place] [id number] Name Type Priority Associated Diagnoses Order Schedule EKG-12 LEAD ROUTINE HEART STATION Routine Chronic diastolic Ordered: 2019 congestive heart failure Permanent atrial fibrillation Health Maintenance Due Date Last Done Comments [...] filedocumented in this encounter Visit Diagnoses Diagnosis ARELLANO (dyspnea on exertion) - Primary Other dyspnea and respiratory abnormality Chronic diastolic congestive heart failure Chronic diastolic heart failure Pulmonary hypertension Other chronic pulmonary heart diseases Nonrheumatic mitral valve stenosis Permanent atrial fibrillation Atrial fibrillation Chronic atrial fibrillation Atrial fibrillation documented in this encounter Insurance Payer Benefit Plan / Subscriber ID Effective Dates Phone Address Type Group COMMERCIAL COMMERCIAL [id number] 2017-Prese HMO/PPO/PO NON-CONTRACT NON-CONTRACT nt S GENERIC GENERIC documented as of this encounter
--- OUTSIDE RECORDS SUMMARY | 2019-06-11 08:01 | XMS REPORT | Summary of Care ---
:1955 Author Organization [facility] Address [address] [place] [id number] Care Team Providers Name Role Phone Kim, [facility] Primary Care Provider Encounter Details Date Type Department Care Team Description 04/16/[address] [facility] Cardiology- Doctor UnassignedPasquale [place] [address], [address] [place] [address] [address] [place] [address] [place] [address] Allergies Active Allergy Reactions Severity Noted Date Comments Avocado Other - See comments 11/05/2015 Pt reports upset stomach after consumption but no n/v. Dexter Sapp [place] ext. [id number] Iodine Hives 08/07/2007 topical documented as of [...] on 11/05/2015 4:28 PM buPROPion SR (WELLBUTRIN SR) Take 150 mg by mouth 0 Active 150 mg SR tabletIndications: daily. Indications: 1tab Qam 2tabs Qpm 1tab Qam 2tabs Qpm SERTraline (ZOLOFT) 50 mg Take 50 mg by mouth 0 Active tablet daily. abatacept (ORENCIA) 125 mg/mL inject 125 mg under the 0 Active injectionIndications: skin every Sunday. arthritis Indications: ARTHRITIS meloxicam 15 mg tablet Take 15 mg by mouth 0 Active daily. predniSONE 5 mg tablet Take 5 mg by mouth 0 Active daily. tofacitinib (XELJANZ XR) 11 mg Take 11 mg by mouth. 0 Active Tb24 traZODONE 50 mg tablet Take 1 tablet by mouth 20 tablet 0 09/18/2017 Active at bedtime. KCL 20 mEq tablet Take 1 tablet by mouth 30 tablet 2 11/01/2017 Active daily. sucralfate (CARAFATE) 1 gram Take 1 tablet by mouth 30 tablet 0 11/11/2017 Active tablet before meals and at bedtime. documented as of this encounter (statuses as of 05/17/2019) Active Problems Problem Noted Date Acute on chronic diastolic congestive heart failure 09/14/2017 Pulmonary embolism 12/11/2016 Atrial fibrillation 11/05/2016 Obesity (BMI 30-39.9) 11/05/2016 Chronic diastolic congestive heart failure 11/04/2015 Persistent atrial fibrillation 11/04/2015 Pulmonary hypertension 11/04/2015 Complication of preventive medicine procedure 11/03/2015 Rheumatoid arthritis 08/21/2007 Overview: ICD10 Diagnosis Term Radio News Writer Utility Mitral stenosis 08/21/2007 Chest pain 08/21/2007 Overview: ICD10 Diagnosis Term Radio News Writer Utility documented as of this encounter (statuses [...] Visit Cardiology Anna Marie Castellon MD [address] [facility] [facility] [place] [address] [phone] Health Maintenance Due Date Last Done Comments [...] Results Not on filedocumented in this encounter Insurance Payer Benefit Plan / Subscriber ID Effective Dates Phone Address Type Group COMMERCIAL COMMERCIAL [id number] 2017-Prese HMO/PPO/PO NON-CONTRACT NON-CONTRACT nt S GENERIC GENERIC documented as of this encounter
--- OUTSIDE RECORDS SUMMARY | 2019-06-11 08:02 | XMS REPORT | Summary of Care ---
:1955 Author Organization [facility] Address [address] [place] [address] Care Team Providers Name Role Phone [facility] Primary Care Provider Reason for Referral (Routine) Status Reason Specialty Diagnoses / Procedures Referred By Contact Referred To Contact Closed Cardiology Diagnoses Nonrheumatic mitral valve stenosis Anna Marie Castellon MD Procedures ECHO ROUTINE W/DOPPLER COLOR Preferred Location: [facility] [address] [place] [address] [address] [place] [address] Reason for Visit Reason Comments Follow-up 12 Month Atrial Fibrillation Ekg Done in office today Refill Request Encounter Details Date Type Department Care Team Description 05/27/2019 Office Visit [facility] Anna Marie Castellon MD ARELLANO (dyspnea on exertion) (Primary Dx); Cardiology- [address] Chronic diastolic congestive heart failure; [address] [place] [address] Pulmonary hypertension; [address], [address] Nonrheumatic mitral valve stenosis; [place] [address] Permanent atrial fibrillation; [id number] Chronic atrial fibrillation [phone] Allergies Active Allergy Reactions Severity Noted Date Comments Avocado Other - See comments 11/05/2015 Pt reports upset stomach after consumption but no n/v. Dexter Sapp RD ext. [id number] Iodine Hives 08/07/2007 topical documented as of [...] Rheumatoid arthritis 08/21/2007 Overview: ICD10 Diagnosis Term Hangar Attendant Utility Mitral stenosis 08/21/2007 Chest pain 08/21/2007 Overview: ICD10 Diagnosis Term Hangar Attendant Utility documented as of this encounter (statuses [...] Comments Blood Pressure 133/69 05/27/2019 9:46 AM SPOOL SANDER Pulse 67 05/27/2019 9:46 AM SPOOL SANDER Temperature - - Respiratory Rate 19 05/27/2019 9:46 AM SPOOL SANDER Oxygen Saturation 97% 05/27/2019 9:46 AM SPOOL SANDER Inhaled Oxygen Concentration - - Weight 91.9 kg (202 lb 8 oz) 05/27/2019 9:46 AM SPOOL SANDER Height 180.3 cm (5' 11") 05/27/2019 9:46 AM SPOOL SANDER Body Mass Index 28.24 05/27/2019 9:46 AM SPOOL SANDER documented in this encounter Progress Notes Anna Marie Castellon MD - 05/27/2019 9:20 AM CST CARDIOLOGY CLINIC NOTE 05/27/2019 Reason for Referral/Presenting Complaint: Afib PCP: [facility] History of Present Illness: Celsa Lorenzo [...] but no n/v. Dexter Sapp RD ext. [id number] Iodine Hives topical Social History: Social History [...] file Gets together: Not on file Attends mu-ism service: Not on file Active member of [...] Family History Problem Relation Age of Onset CA (myocardial infarction) Father 24 Review of Systems: [...] Anna Marie Castellon MD, FACC, FACP, JENS [employer]ca Certified Concierge, Division of Cardiology [facility] documented in this encounter Plan of Treatment Date Type Specialty Care Team Description 06/01/2020 Office Visit Cardiology Anna Marie Castellon MD [address] [facility] [address] [place], [place] [address] Name Type Priority Associated Diagnoses Order Schedule [...] Dates Phone Address Type Group COMMERCIAL COMMERCIAL [id number] 2017-Prese HMO/PPO/PO NON-CONTRACT NON-CONTRACT nt S GENERIC GENERIC documented as of this encounter
[2019-06-11] MEDS ORDERED: METHYLPREDNISOLONE 125 MG INJ ONE (08:35)
[2019-06-11] MEDS ORDERED: IPRATROPIUM BROM 0.5MG/2.5ML ONE (08:35)
[2019-06-11] MEDS ORDERED: LEVALBUTEROL 1.25 MG/3 ML NEB ONE (08:35)
[2019-06-11 09:01] LABS: Protime INR 1.48
[2019-06-11 09:06] LABS: Basophils % 0.1 % (0-1.3); Hematocrit 38.1 % (36.0-45.0); Lymphocytes % 11.7 % (15.3-44.8); MPV 9.2 fL (7.6-11.3); RBC Red Blood Cell Count 4.04 M/uL (3.86-4.86)
[2019-06-11 09:17] LABS: ALT/SGPT 18 U/L (12-78); AST/SGOT 23 U/L (15-37); Albumin 3.7 g/dL (3.4-5.0); Alkaline Phosphatase 113 U/L (45-117); BUN Blood Urea Nitrogen 16 mg/dL (7-18); Bicarbonate 29 mmol/L (21-32); Bilirubin Direct 0.2 mg/dL (0-0.2); Bilirubin Total 0.7 mg/dL (0.2-1.0); Glucose Level 98 mg/dL (74-106); Magnesium 2.3 mg/dL (1.8-2.4); NT PRO-BNP 2673 pg/mL (<125); Potassium 3.4 mmol/L (3.5-5.1); Protein, Total 7.7 g/dL (6.4-8.2); Sodium Level 138 mmol/L (136-145); Troponin (Emerg Dept Use Only) < 0.02 ng/mL (0.0-0.045)
[2019-06-11] MEDS ORDERED: FUROSEMIDE 100 MG/10 ML VIAL IV ONE (10:42)
[2019-06-11] MEDS ORDERED: FENTANYL CITR 100 MCG/2 ML ONE (10:51)
--- NOTE | 2019-06-11 10:53 | RAD REPORT ---
EXAM DESCRIPTION: RAD - Chest Single View - 06/11/2019 10:30 am CLINICAL HISTORY: DYSPNEA Chest pain. COMPARISON: Chest Single View dated 04/18/2019; Chest Single View dated 03/27/2019; Chest Single View dated 02/16/2019; Chest Single View dated 01/29/2019 FINDINGS: Portable technique limits examination quality. The lungs are grossly clear. The heart is moderately enlarged in size. No displaced fractures. IMPRESSION: Moderate cardiomegaly.
--- NOTE | 2019-06-11 11:25 | ER ---
Nurse's Notes [facility] Name: Celsa Lorenzo Age: 64 yrs Sex: Female : 1955 Arrival Date: 06/11/2019 Time: 07:57 Bed 6 Private MD: Suresh Cedillo E Diagnosis: Acute combined systolic (congestive) and diastolic (congestive) heart failure;Chronic obstructive pulmonary disease with (acute) exacerbation Presentation: 06/10 08:07 Chief complaint: SOB and sharp left upper chest pain that radiates to upper back x 2-3 hb days. Pt reports she has several broken ribs and has not been using incentive spirometer as directed. Coronavirus screen: The patient has NOT traveled to a country currently being monitored by the CDC within the last 14 days. The patient has NOT had contact with any known and/or suspected case of coronavirus. Proceed with normal triage procedures. Ebola Screen: No symptoms or risks identified at this time. Initial Sepsis Screen: Does the patient meet any 2 criteria? No. Patient's initial sepsis screen is negative. Does the patient have a suspected source of infection? No. Patient's initial sepsis screen is negative. Risk Assessment: Do you want to hurt yourself or someone else? Patient reports no desire to harm self or others. 08:07 Method Of Arrival: Ambulatory hb 08:07 Acuity: MAXIMO 3 hb 11:39 Onset of symptoms was June 11, 2019. tw2 Historical: - Allergies: 08:07 Betadine; tw2 08:07 Iodine; Topical only; tw2 - Home Meds: 08:07 Zoloft 50 mg Oral tab 1 tab once daily [Active]; sotalol 120 mg Oral tab 1 tab 2 times tw2 per day [Active]; Wellbutrin 150mg Oral 1 tab daily [Active]; Xeljanz Oral [Active]; meloxicam 15 mg Oral tab 1 tab once daily [Active]; Lasix 40 mg Oral tab 20mg at night [Active]; KCL 20 mEq daily [Active]; Eliquis 5 mg Oral tab 1 tab 2 times per day [Active]; digoxin 125 mcg Oral tab 1 tab once daily [Active]; - PMHx: 08:07 CHF; pulmonary HTN; resp failure; COPD; Hypertension; mitral valve stenosis; tw2 cardioversion; Atrial Fib; ADD/ADHD; Rheumatoid Arthritis; - PSHx: 08:07 Appendectomy; Tubal ligation; tw2 - Immunization history:: Adult Immunizations. - Social history:: Smoking status: . Screenin:02 Abuse screen: Denies threats or abuse. Nutritional screening: No deficits noted. tw2 Tuberculosis screening: No symptoms or risk factors identified. Fall Risk None identified. Assessment: 08:15 General: Appears in no apparent distress. Behavior is calm, cooperative. Pain: Pain hb currently is 8 out of 10 on a pain scale. Neuro: Level of Consciousness is awake, alert, obeys commands, Oriented to person, place, time, situation. Cardiovascular: Heart tones S1 S2 present Capillary refill < 3 seconds Patient's skin is warm and dry. Chest pain right upper chest, radiates to upper back. Respiratory: Airway is patent Respiratory effort is even, unlabored, Respiratory pattern is regular, symmetrical, Breath sounds are clear bilaterally. GI: No signs and/or symptoms were reported involving the gastrointestinal system. : No signs and/or symptoms were reported regarding the genitourinary system. EENT: No signs and/or symptoms were reported regarding the EENT system. Derm: Skin is intact, is healthy with good turgor, Skin is pink, warm \T\ dry. Musculoskeletal: No signs and/or symptoms reported regarding the musculoskeletal system. 09:10 Reassessment: Patient appears in no apparent distress at this time. Patient and/or hb family updated on plan of care and expected duration. Pain level reassessed. Patient is alert, oriented x 3, equal unlabored respirations, skin warm/dry/pink. 10:15 Reassessment: Patient appears in no apparent distress at this time. hb 11:39 Reassessment: Patient appears in no apparent distress at this time. Patient and/or tw2 family updated on plan of care and expected duration. Pain level reassessed. Patient is alert, oriented x 3, equal unlabored respirations, skin warm/dry/pink. Vital Signs: 08:08 BP 114 / 94; Pulse 54; Resp 18; Temp 97.1; Pulse Ox 98% on R/A; Weight 90.72 kg; Height hb 5 ft. 11 in. (180.34 cm); Pain 8/10; 09:00 BP 143 / 73; Pulse 58; Resp 17; Pulse Ox 98% on R/A; hb 10:32 BP 132 / 85; Pulse 56; Resp 17; Pulse Ox 97% on R/A; tw2 11:38 BP 146 / 85; Pulse 55; Resp 17; Pulse Ox 95% on R/A; tw2 08:08 Body Mass Index 27.89 (90.72 kg, 180.34 cm) hb ED Course: 07:57 Patient arrived in ED. ag5 07:58 Suresh Cedillo MD is Private Physician. ag5 08:03 Bed in low position. Call light in reach. Adult w/ patient. equipment monitor phototypesetting on. Pulse tw2 ox on. NIBP on. 08:07 Elinor Vela, RN is Primary Nurse. hb 08:08 Roby Fonseca PA is PHCP. jr8 08:08 Ildefonso Lynn MD is Attending Physician. jr8 08:08 Triage completed. hb 08:08 Arm band placed on. hb 08:24 EKG done, by health information technician. reviewed by Roby GIFFORD. at1 08:35 Missed attempt(s): 22 gauge in right wrist. hb 08:44 Inserted saline lock: 22 gauge in right antecubital area, using aseptic technique. hb ,using aseptic technique. by Jony Blood collected. 11:39 No provider procedures requiring assistance completed. IV discontinued, intact, tw2 bleeding controlled, No redness/swelling at site. Pressure dressing applied. Administered Medications: 08:44 Drug: SOLU-Medrol 125 mg Route: IVP; Site: right antecubital; hb 09:22 Follow up: Response: No adverse reaction hb 08:45 Drug: Xopenex (3) 1.25 mg Route: Inhalation; hb 09:55 Follow up: Response: No adverse reaction hb 08:45 Drug: AtroVENT Aerosol 0.5 mg Route: Inhalation; hb 10:33 Follow up: Response: No adverse reaction hb 10:40 Drug: Lasix 60 mg Route: IVP; Site: right antecubital; hb 11:41 Follow up: Response: No adverse reaction tw2 10:49 Drug: fentaNYL (PF) 50 mcg Route: IVP; Site: right antecubital; hb 11:40 Follow up: Response: No adverse reaction; Pain is unchanged, physician notified; RASS: tw2 Alert and Calm (0) Outcome: 11:24 Discharge ordered by . jr8 11:39 Discharged to home ambulatory. tw2 11:39 Condition: stable 11:39 Discharge instructions given to patient, family, Instructed on discharge instructions, follow up and referral plans. no drinking with medication, no driving heavy equipment, medication usage, Demonstrated understanding of instructions, follow-up care, medications, Prescriptions given X 4. 11:41 Patient left the ED. tw2 Signatures: Roby Fonseca PA PA jr8 Jovita Mendenhall, office clerk assistant EKG Tat1 Elinor Vela, RN RN Lesly Matos RN RN tw2 Thad Malave ag5
--- NOTE | 2019-06-11 11:26 | EDPHYS ---
Physician Documentation [facility] Name: Celsa Lorenzo Age: 64 yrs Sex: Female : 1955 Arrival Date: 06/11/2019 Time: 07:57 Bed 6 Private MD: Suresh Cedillo E ED Physician Ildefonso Lynn HPI: 06/10 10:44 This 64 yrs old Female presents to ER via Ambulatory with complaints of jr8 Shortness Of Breath, Back Pain. 10:44 The patient has shortness of breath at rest. Onset: The symptoms/episode began/occurred jr8 gradually, 2 day(s) ago. Duration: The symptoms are continuous. The patient's shortness of breath is aggravated by exertion. Associated signs and symptoms: Pertinent positives: non-productive cough. Severity of symptoms: At their worst the symptoms were moderate in the emergency department the symptoms are unchanged. It is unknown whether or not the patient has had similar symptoms in the past. The patient has not recently seen a physician. Patient stated that she was seen a couple of weeks ago fro fall injury with broken ribs. Stated that it has been healing but was not doing her IS as much as she should have. Stated that now she is having increased pain with breathing and shortness of breath . Historical: - Allergies: 08:07 Betadine; tw2 08:07 Iodine; Topical only; tw2 - Home Meds: 08:07 Zoloft 50 mg Oral tab 1 tab once daily [Active]; sotalol 120 mg Oral tab 1 tab 2 times tw2 per day [Active]; Wellbutrin 150mg Oral 1 tab daily [Active]; Xeljanz Oral [Active]; meloxicam 15 mg Oral tab 1 tab once daily [Active]; Lasix 40 mg Oral tab 20mg at night [Active]; KCL 20 mEq daily [Active]; Eliquis 5 mg Oral tab 1 tab 2 times per day [Active]; digoxin 125 mcg Oral tab 1 tab once daily [Active]; - PMHx: 08:07 CHF; pulmonary HTN; resp failure; COPD; Hypertension; mitral valve stenosis; tw2 cardioversion; Atrial Fib; ADD/ADHD; Rheumatoid Arthritis; - PSHx: 08:07 Appendectomy; Tubal ligation; tw2 - Immunization history:: Adult Immunizations. - Social history:: Smoking status: . ROS: 10:44 Eyes: Negative for injury, pain, redness, and discharge, ENT: Negative for injury, jr8 pain, and discharge, Neck: Negative for injury, pain, and swelling, Abdomen/GI: Negative for abdominal pain, nausea, vomiting, diarrhea, and constipation, Back: Negative for injury and pain, MS/Extremity: Negative for injury and deformity, Skin: Negative for injury, rash, and discoloration, Neuro: Negative for headache, weakness, numbness, tingling, and seizure. 10:44 Cardiovascular: Positive for chest pain, Negative for edema, orthopnea, palpitations, paroxysmal nocturnal dyspnea. 10:44 Respiratory: Positive for dyspnea on exertion, shortness of breath, wheezing. Exam: 10:44 Eyes: Pupils equal round and reactive to light, extra-ocular motions intact. Lids and jr8 lashes normal. Conjunctiva and sclera are non-icteric and not injected. Cornea within normal limits. Periorbital areas with no swelling, redness, or edema. ENT: Nares patent. No nasal discharge, no septal abnormalities noted. Tympanic membranes are normal and external auditory canals are clear. Oropharynx with no redness, swelling, or masses, exudates, or evidence of obstruction, uvula midline. Mucous membranes moist. Neck: Trachea midline, no thyromegaly or masses palpated, and no cervical lymphadenopathy. Supple, full range of motion without nuchal rigidity, or vertebral point tenderness. No Meningismus. Cardiovascular: Regular rate and rhythm with a normal S1 and S2. No gallops, murmurs, or rubs. Normal PMI, no JVD. No pulse deficits. Abdomen/GI: Soft, non-tender, with normal bowel sounds. No distension or tympany. No guarding or rebound. No evidence of tenderness throughout. Back: No spinal tenderness. No costovertebral tenderness. Full range of motion. Skin: Warm, dry with normal turgor. Normal color with no rashes, no lesions, and no evidence of cellulitis. MS/ Extremity: Pulses equal, no cyanosis. Neurovascular intact. Full, normal range of motion. Neuro: Awake and alert, GCS 15, oriented to person, place, time, and situation. Cranial nerves II-XII grossly intact. Motor strength 5/5 in all extremities. Sensory grossly intact. Cerebellar exam normal. Normal gait. 10:44 Respiratory: mild respiratory distress is noted, Respirations: tachypnea, Breath sounds: wheezing: expiratory that is mild, is heard diffusely. Vital Signs: 08:08 BP 114 / 94; Pulse 54; Resp 18; Temp 97.1; Pulse Ox 98% on R/A; Weight 90.72 kg; Height hb 5 ft. 11 in. (180.34 cm); Pain 8/10; 09:00 BP 143 / 73; Pulse 58; Resp 17; Pulse Ox 98% on R/A; hb 10:32 BP 132 / 85; Pulse 56; Resp 17; Pulse Ox 97% on R/A; tw2 11:38 BP 146 / 85; Pulse 55; Resp 17; Pulse Ox 95% on R/A; tw2 08:08 Body Mass Index 27.89 (90.72 kg, 180.34 cm) hb MDM: 08:08 Patient medically screened. jr8 11:23 Data reviewed: vital signs, nurses notes, lab test result(s), EKG, radiologic studies, jr8 plain films. Data interpreted: Pulse oximetry: on room air is 97 %. Interpretation: normal. Counseling: I had a detailed discussion with the patient and/or guardian regarding: the historical points, exam findings, and any diagnostic results supporting the discharge/admit diagnosis, lab results, radiology results, the need for outpatient follow up, a fishing worker, a family practitioner, to return to the emergency department if symptoms worsen or persist or if there are any questions or concerns that arise at home. Response to treatment: the patient's symptoms have markedly improved after treatment. 11:36 ED course: [facility] record ran. Last prescription over a month ago. Only 30 pills jr8 given at that time. Patient safe to have another narcotics prescription. No sign of abuse at this time. . 06/10 08:24 Order name: Basic Metabolic Panel 8 06/10 08:24 Order name: CBC with Diff 8 06/10 08:24 Order name: LFT's 8 06/10 08:24 Order name: Magnesium 8 06/10 08:24 Order name: NT PRO-BNP 8 06/10 08:24 Order name: PT-INR 8 06/10 08:24 Order name: Troponin (emerg Dept Use Only) [facility] 06/10 10:08 Order name: Basic Metabolic Panel; Complete Time: 10:08 EDMS 06/10 10:08 Order name: Liver (Hepatic) Function; Complete Time: 10:08 EDMS 06/10 10:08 Order name: Troponin (Emerg Dept Use Only); Complete Time: 10:08 MS 06/10 10:08 Order name: NT PRO-BNP; Complete Time: 10:08 MS 06/10 10:08 Order name: Magnesium; Complete Time: 10:08 MS 06/10 10:08 Order name: CBC with Automated Diff; Complete Time: 10:08 MS 06/10 10:08 Order name: Protime (+INR); Complete Time: 10:08 MS 06/10 08:24 Order name: XRAY Chest (1 view) 06/10 08:24 Order name: EKG; Complete Time: 09:55 06/10 08:24 Order name: Cardiac monitoring; Complete Time: 08:30 06/10 08:24 Order name: EKG - Nurse/Tech; Complete Time: 08:30 06/10 08:24 Order name: IV Saline Lock; Complete Time: 09:09 06/10 08:24 Order name: Labs collected and sent; Complete Time: 09:09 06/10 08:24 Order name: O2 Per Protocol; Complete Time: 08:30 06/10 08:24 Order name: O2 Sat Monitoring; Complete Time: 08:30 Administered Medications: 08:44 Drug: SOLU-Medrol 125 mg Route: IVP; Site: right antecubital; hb 09:22 Follow up: Response: No adverse reaction hb 08:45 Drug: Xopenex (3) 1.25 mg Route: Inhalation; hb 09:55 Follow up: Response: No adverse reaction hb 08:45 Drug: AtroVENT Aerosol 0.5 mg Route: Inhalation; hb 10:33 Follow up: Response: No adverse reaction hb 10:40 Drug: Lasix 60 mg Route: IVP; Site: right antecubital; hb 11:41 Follow up: Response: No adverse reaction tw2 10:49 Drug: fentaNYL (PF) 50 mcg Route: IVP; Site: right antecubital; hb 11:40 Follow up: Response: No adverse reaction; Pain is unchanged, physician notified; RASS: tw2 Alert and Calm (0) Disposition: 12:44 Co-signature as Attending Physician, Ildefonso Lynn MD I agree with the assessment and kdr plan of care. Disposition: 06/11/19 11:24 Discharged to Home. Impression: Acute combined systolic (congestive) and diastolic (congestive) heart failure, Chronic obstructive pulmonary disease with (acute) exacerbation. - Condition is Stable. - Discharge Instructions: Chronic Obstructive Pulmonary Disease, Heart Failure. - Prescriptions for Prednisone 20 mg Oral Tablet - take 1 tablet by ORAL route once daily for 5 days; 5 tablet. Albuterol Sulfate 2.5 mg /3 mL (0.083 %) Inhalation Solution for Nebulization - inhale 1 unit by NEBULIZATION route every 8 hours As needed; 1 box. Albuterol Sulfate 90 mcg/actuation - inhale 1-2 puff by INHALATION route every 4-6 hours; 1 Inhaler. Tylenol- Codeine #3 300-30 mg Oral Tablet - take 2 tablets by ORAL route every 6 hours As needed; 16 tablet. - Medication Reconciliation Form, Thank You Letter, Antibiotic Education, Prescription Opioid Use form. - Follow up: Private Physician; When: 2 - 3 days; Reason: Recheck today's complaints, Continuance of care, Re-evaluation by your physician. - Problem is new. - Symptoms have improved. Signatures: Dispatcher [employer] EDMS Ildefonso Lynn MD MD [facility] Roby Fonseca PA PA jr8 Elinor Vela RN RN Lesly Matos RN RN tw2 Corrections: (The following items were deleted from the chart) 11:41 11:24 06/11/2019 11:24 Discharged to Home. Impression: Acute combined systolic tw2 (congestive) and diastolic (congestive) heart failure; Chronic obstructive pulmonary disease with (acute) exacerbation. Condition is Stable. Forms are Medication Reconciliation Form, Thank You Letter, Antibiotic Education, Prescription Opioid Use. Follow up: Private Physician; When: 2 - 3 days; Reason: Recheck today's complaints, Continuance of care, Re-evaluation by your physician. Problem is new. Symptoms have improved. jr8
--- NOTE | 2019-06-11 11:28 | EKG ---
Test Date: 2019-06-11 Test Time: 08:16:00 Foundation Assistant: FERNANDO MEASUREMENT RESULTS: Intervals: Rate: 64 KS: QRSD: 88 QT: 440 QTc: 453 Keavy: P: KS: QRS: 69 T: 155 INTERPRETIVE STATEMENTS: Atrial fibrillation ST & T wave abnormality, consider lateral ischemia Abnormal ECG Compared to ECG 04/18/2019 08:09:08 ST (T wave) deviation still present Electronically Signed On 06-11-19 11:27:27 CDT by Jak Guzman
[2019-06-11 11:55] VITALS: TEMP 97.1
[2019-06-11 12:00] VITALS: BP 146/85; O2SAT 95
== END 2019-06-11 11:41 | disposition home or self-care (01) ==
LOC: ER 07:53
DX: I50.41 Acute combined systolic (congestive) and diastolic (congestive) heart failure (principal); J44.1 Chronic obstructive pulmonary disease with (acute) exacerbation; I10 Essential (primary) hypertension; Z91.09 Other allergy status, other than to drugs and biological substances
CPT/HCPCS: 93005; 85025; 80048; 36415; 83735; 85610; 80076; 84484; 83880; 71045; 96375; 96374; 99285; J3010; J2930

== ENCOUNTER 2020-03-28 12:27 | Emergency (ER) | payer MEDICARE ==
--- OUTSIDE RECORDS SUMMARY | 2020-03-28 12:29 | XMS REPORT | Clinical Summary ---
:1955 Author Organization [facility] Address [address] [place] [address] Care Team Providers Name Role Phone Asked, No Pcp Primary Care Provider Unavailable Allergies Active Allergy Reactions Severity Noted Date Comments Codeine GI Intolerance High 02/16/2020 Thiopental Sodium GI Intolerance High 02/16/2020 Nausea a nd Vomiting Povidone-Iodine Hives High 02/16/2020 Medications Medication Sig Dispensed Refills Start Date End Date Status sotaloL (BETAPACE) Take 120 mg by mouth 0 Active 120 MG tablet 2 (two) times a day. digOXIN (LANOXIN) Take 125 mcg by 0 Active 125 mcg (0.125 mg) mouth daily. tablet apixaban (ELIQUIS) 5 Take 5 mg by mouth 2 0 Active mg tablet (two) times a day. furosemide (LASIX) Take 40 mg by mouth 0 Active 40 mg tablet 2 (two) times a day. Can take up to 3 times a day if needed tofacitinib 11 mg Take 11 mg by mouth 0 Active tablet extended daily. release 24 hr meloxicam (MOBIC) 15 Take 15 mg by mouth 0 Active mg tablet daily. traMADoL (ULTRAM) 50 Take 50 mg by mouth 0 Active mg every 6 (six) hours tabletIndications: as needed for acute pain moderate pain .acute pain. sertraline (ZOLOFT) Take 50 mg by mouth 0 Active 50 MG tablet daily. buPROPion XL Take 150 mg by mouth 0 Active (WELLBUTRIN XL) 150 daily. MG 24 hr tablet albuterol (ACCUNEB) Take 2.5 mg by 0 Active 2.5 mg /3 mL (0.083 nebulization every 4 %) nebulizer (four) hours as solution needed for wheezing. Active Problems Not on file Encounters Date Type Specialty Care Team Description 02/17/2020 Anesthesia Event Procedural Teodoro Jimenez Cardiology MD Dereje Jacinto Angela [place] 02/17/2020 Hospital Encounter Procedural Agus Philippe ThurstonDolores, Alexei ral valve stenosis, non-rheumatic; Cardiology MD Gabbi colon ly 02/17/2020 Travel 02/03/2020 Transcribe Orders Procedural RichardSathish loaiza, Mitr al valve stenosis, non-rheumatic (Primary Dx); Cardiology MD Gabbi colon ly after 03/28/2019 Surgical History Surgery Date Site/Laterality Comments APPENDECTOMY ELBOW SURGERY TUBAL LIGATION Medical History Medical History Date Comments Arrhythmia Pulmonary hypertension (HCC) Social History Tobacco Use Types Packs/Day Years Used Date Current Every Day Smoker Smokeless Tobacco: Never Used Sex Assigned at Date Recorded Not on file Job Start Date Occupation Industry Not on file Not on file Not on file Last Filed Vital Signs Vital Sign Reading Time Taken Comments Blood Pressure 102/85 02/17/2020 10:50 AM [employer] Pulse 65 02/17/2020 10:50 AM [employer] Temperature 35.8 C (96.4 F) 02/17/2020 8:43 AM [employer] Respiratory Rate 16 02/17/2020 10:50 AM [employer] Oxygen Saturation 96% 02/17/2020 10:50 AM [employer] Inhaled Oxygen Concentration - - Weight 89.1 kg (196 lb 7 oz) 02/17/2020 9:07 AM [employer] Height 175.3 cm (5' 9") 02/17/2020 9:07 AM [employer] Body Mass Index 29.01 02/17/2020 9:07 AM [employer] Plan of Treatment Health Maintenance Due Date Last Done Comments COVID-19 VACCINE (#1) 1973 CERVICAL CANCER SCREENING 1978 BREAST CANCER SCREENING 2007 COLONOSCOPY SCREENING 2007 SHINGLES VACCINES (#1) 2007 INFLUENZA VACCINE 11/01/2019 Procedures Procedure Name Priority Date/Time Associated Comments Diagnosis ECHOCARDIOGRAM Routine 02/17/2020 11:31 Mitral valve Results f or this TRANSESOPHAGEAL W AM [employer] stenosis, procedure are in DOPPLER COLORFLOW non-rheumatic the results Ebstein's anomaly section. POC PANEL Routine 02/17/2020 9:31 Results for this AM [employer] procedure are i n the results section. ESTIMATED GFR Routine 02/17/2020 9:31 Results fo r this AM [employer] procedure are i n the results section. after 03/28/2019 Results Echocardiogram transesophageal (02/17/2020 11:31 AM [employer]) Specimen Narrative Performed At [facility] ophageal Echo Report [id number], [place], [place] [address] Pat.Name: CELSA LORENZO Pat.ID: [id number]Date: 02/17/2020 Refer.MD: SATHISH HARDY MD Exam Time: 9:22:00 AM Study Type:T EE Height: 69in Weight: 196lb BSA: 2.05 m2 Ag e: 1955,65Y Sex: FEMALE BP: 129/99 HR: 90 bpm Sonogr phr: Flori Lama MD [facility]. Stat.:Outpatient CPT - 4: 02241-81 Study Status:Final Echo Event ID:[id number] Order ID: [id number] Reason for Study:Clinical symptoms of he art failure, Pulmonary Hypertension, SOB, suspected cardiac romina ology, Valvular disease-initial eval History / Clinical:Atrial Fibrillation, COPD, Dyspnea On Exertion, Pulmonary Hypertension, Valvular Heart D isease; Mitral Stenosis, Valvular Heart Disease; Tricuspid Regurg itation Procedures: 3D Echo, Transesophageal Ech o with Colorflow Doppler Race: SUMMARY: Moderate thickening of mitral leaflets. Valve appears rheumatic. Thickened and fused chordae. Moderate to severe mitral stenosis. Mode rate to severe mitral regurgitation. LA volume is enlarged. No thrombus or ma ss is visualized in the LA or LA appendage. Spontaneous echo contrast is seen in the LA/LA appendage. FINDINGS: RONEL: The attending process specialist performed the RONEL procedure and was present for the entir e duration. The patient was counseled and an informed consent was o btained. Topical and intravenous anesthesia was administered . The esophagus was intubated without difficu lty. The probe was passed to the gastric fundus and all standard echocar diographic views were obtained. The patient radha erated the procedure well. LV: LV size is normal. LV EF is normal. Overall wall motion is normal. Estimated EF is 5 5-59%. RV: RV size is normal. RV systo lic function is normal. LA: LA volume is enlarged. No t hrombus or mass is visualized in the LA or LA appendage. Spontaneous ech o contrast is seen in the LA/LA appendage. RA: RA volume is enlarged. AO: Aortic root diameter is nor mal in size. Moderate to severe atherosclerotic changes s een in the aortic arch and descending aorta. RUBI: No pericardial effusion. AV: Mild to moderate thickening of AV leaflets. MV: Moderate thickening of mitr al leaflets. Valve appears rheumatic. Thickened and fused chordae. Diagnostic of mitral valve stenosis. Good MV l eaflet pliability. Moderate to severe mitral regurgitati on. Moderate to severe mitral stenosis. PV: No structural PV abnormalit ies noted. TV: No structural TV abnormalit ies noted. Moderate to severe tricuspid regurgitation Other: Estimated PA systolic pressu re is 35 mmHg, assuming a mean RAP of 10 mmHg. RONEL: Anesthesia: Per Anesthesia A Class: 4 Physician: Marquis Noyola: Flori Lama MD Pre RONEL BP HR Post RONEL BP HR 129/99 90 116/53 83 Meds: Viscous xylocaine, Cetacai ne spray to oropharynx, Per Anesthesia Complications: None Condition: Stable MEASUREMENTS: DOPPLER MV Forward Flow MV pkVel 206.2 cm/s MV TVI 48.8 cm MV pkPG 17 mmHg MV Area P1/2t 1.5 cm (4-6) MV Mean G 7.7 mmHg MV Dec T 496 msec MR PISA MR AliasVel 48.6 cm/s MR RgpkVel 572.5 cm/s MR PISA rad 0.7 cm MR KAMRON 0.3 cm MR Rg Flw 145.7 ml/s MR RgVol 44.2 ml MR RgTVI 173.9 cm Signed 02/17/2020 12:16 PM Philippe Goldsmith M.D. Procedure Note Interface, Radiology Results In - 2019 12:18 PM [employer] Transesophageal Ec ho Report [id number], [address], [place] [address] Pat.Name: CELSA LORENZO Pat.I D: [id number] .Date: 02/17/2020 Refer .MD: SATHISH HARDY MD Exam Time: 9:22:00 AM Study Type:RONEL Height: 69in Weigh t: 196lb BSA: 2.05 m2 Age: 12 1955,65Y Sex: FEMALE BP: 129/99 HR: 90 bpm Sonog rphr: Flori Lama MD Pat. Stat.:Outpatient CPT - 4: 61511-94 Study Status:Final Echo Event ID:[id number] Order ID: [id number] Reason for Study:Clinical symptoms of he art failure, Pulmonary Hypertension, SOB, suspected cardiac romina ology, Valvular disease-initial eval History / Clinical:Atrial Fibrillation, COPD, Dyspnea On Exertion, Pulmonary Hypertension, Valvular Heart D isease; Mitral Stenosis, Valvular Heart Disease; Tricuspid Regurg itation Procedures: 3D Echo, Transesophageal Ech o with Colorflow Doppler Race: SUMMARY: Moderate thickening of mitral leaflets. Valve appears rheumatic. Thickened and fused chordae. Moderate to severe mitral stenosis. Mode rate to severe mitral regurgitation. LA volume is enlarged. No thrombus or ma ss is visualized in the LA or LA appendage. Spontaneous echo contrast is seen in the LA/LA appendage. FINDINGS: RONEL: The attending process specialist per formed the RONEL procedure and was present for the entire dur ation. The patient was counseled and an informed cons ent was obtained. Topical and intravenous anesthesia was adm inistered. The esophagus was intubated without difficulty. The probe was passed to the gastric fundus and all standar d echocardiographic views were obtained. The patient tolerate d the procedure well. LV: LV size is normal. LV EF is no rmal. Overall wall motion is normal. Estimated EF is 55-59% . RV: RV size is normal. RV systolic function is normal. LA: LA volume is enlarged. No thro mbus or mass is visualized in the LA or LA appendage. Sponta neous echo contrast is seen in the LA/LA appendage. RA: RA volume is enlarged. AO: Aortic root diameter is normal in size. Moderate to severe atherosclerotic changes seen i n the aortic arch and descending aorta. RUBI: No pericardial effusion. AV: Mild to moderate thickening of AV leaflets. MV: Moderate thickening of mitral leaflets. Valve appears rheumatic. Thickened and fused chordae. Diagnostic of mitral valve stenosis. Good MV leafle t pliability. Moderate to severe mitral regurgitation. M oderate to severe mitral stenosis. PV: No structural PV abnormalities noted. TV: No structural TV abnormalities noted. Moderate to severe tricuspid regurgitation Other: Estimated PA systolic pressure is 35 mmHg, assuming a mean RAP of 10 mmHg. RONEL: Anesthesia: Per Anesthesia ASA C lass: 4 Physician: Philippe Goldsmith M.D. Arcadio tant: lFori Lama MD Pre RONEL BP HR Post RONEL BP HR 129/99 90 116/53 83 Meds: Viscous xylocaine, Cetacaine spray to oropharynx, Per Anesthesia Complications: None Condition: Stable MEASUREMENTS: DOPPLER MV Forward Flow MV pkVel 206.2 cm/s MV T 48.8 cm MV pkPG 17 mmHg MV A trey P1/2t 1.5 cm (4-6) MV Mean G 7.7 mmHg MV D ec T 496 msec MR PISA MR AliasVel 48.6 cm/s MR R gpkVel 572.5 cm/s MR PISA rad 0.7 cm MR R OA 0.3 cm MR Rg Flw 145.7 ml/s MR R gVol 44.2 ml MR RgTVI 173.9 cm Signed 02/17/2020 12:16 PM Philippe Goldsmith M.D. Performing Organization Address City/[facility] [address] [place] [address] Estimated GFR (02/17/2020 9:31 AM [employer]) Pathologist [facility] Estimated GFR 78 mL/min/1.73 [facility] Comment: HOSPITAL Catergory Units Interpretation G1 >=90 Normal or high G2 60-89 Mildly decreased G3a 45-59 Mildly to moderately decreas ed G3b 30-44 Moderately to severely decre ased G4 15-29 Severely decreased G5 <15 Kidney failure The eGFR was calculated using the Chronic Kidney Disea se Epidemiology Collaboration (CKD-EPI) equation. Interpretation is based on recommendations of the National Kidney Foundation-Kidney Disease Outcomes Davey lity Initiative (NKF-KDOQI) published in 2014. Specimen Blood Performing Organization Address City/State/ZIP Code Phon e Number [facility] DEPARTMENT OF PATHOLOGY AND [address] [place], [place] [address] GENOMIC MEDICINE [address] [place] [address] POC panel (02/17/2020 9:31 AM [employer]) POC sodium 140 135 - 148 [facility] mmol/L [facility] POC potassium 3.7 3.5 - 5.0 [facility] mmol/L [facility] POC chloride 100 99 - 109 [facility] mmol/L [facility] POC CO2 29 24 - 31 mmol/L [facility] POC glucose 100 (H) 65 - 99 mg/dL [facility] POC BUN 18 8 - 24 mg/dL [facility] creatinine 0.8 0.5 - 0.9 [facility] mg/dl [facility] POC hematocrit 43 37 - 47 % [facility] P[facility] anion gap 16 8 - 20 mmol/L [facility] Comment: HOSPITAL Med Spa Manager Name: Margareth Russell Device ID: [id number] Specimen Performing Organization Address City/State/ZIP Code Phon e Number [facility] DEPARTMENT OF PATHOLOGY AND [address] [place] [phone] GENOMIC MEDICINE [address] [address] after 03/28/2019 Advance Directives For more information, please contact: [phone] Type Date Recorded Patient Healthcare Advisory Services Manager Explanati on Advance Directives, Living Will and Medical Power of Workforce Development Vice President
--- OUTSIDE RECORDS SUMMARY | 2020-03-28 12:29 | XMS REPORT | Continuity of Care Document ---
:1955 Author Organization [facility] t Address [address] [place] [address] Care Team Providers Name Role Phone Asked, Pcp Primary Care Physician Unavailable Tate Klein MD Attending Clinician Agus SALINAS, FDolores Attending Clinician Orville Jimenez MD Attending Clinician Vilma Reyez Attending Clinician Mihir SALINAS, S. Attending Clinician Doctor Unassigned, Name Attending Clinician Unavailable Ravinder SALINAS Attending Clinician Ulisses SALINAS Y Attending Clinician AGUS Admitting Clinician Unavailable Payers Payer Name Policy Type Policy Effective Date Expiration Date Sour ce Number [facility] [id number] 2019 [facility] - - MEDICARE MGD 00:00:00 Medical Ce nter CAREAARP/MEDICARE [id number] /04/2019-Present [facility] MEDICAREAARP [id number] 2019 [place] MEDICARE ADVANTAGE 00:00:00 [place] PLAN HMO-POS (WELLMED)[id number] 2019-PresentHM O Problems This patient has no known problems. Allergies, Adverse Reactions, Alerts Allergy Allergy Status Severity Reaction(s) Onset Inactive Treating Comm ents Source Name Type Date Date Clinician Nicolás Holman Active GI 2019-04 Ray ty to Intolerance 1-16 [place] di adverse 00:00: st reaction 00 s to drug Thiopent Propensi Active GI 2019-04 Nausea [place] ty to Intolerance 16 and [place] di Sodium adverse 00:00: Vomiting st reaction 00 s to drug Povidone Propensi Active Hives 2019-04 [place] -Iodine ty to 1-16 [place] adverse 00:00: st reaction 00 s to drug Codeine Drug Active Severe 2019-[address] [facility] Allergy 1-16 reaction( [facility] - 00:[facility]: s[facility] GI Medical 00 Intoleran Center ce Povidone Drug Active Hives 2019-[address] [facility] [address] -Iodine Allergy 1-16 [facility] - 00:00: Medical 00 [place] Iodine-I Drug Active 2018-[address] [facility] sopropyl Allergy 0-09 [facility] - Alcohol 00:00: Medical 00 [place] Avocado Drug Active Other [facility] Allergy 8-05 reaction( [facility] - 00:00: s): Other Medical 00 - See Center commentsP t reports upset stomach after consumpti on but no n/v. Dexter Sapp [place] ext. [id number] Iodine Drug Active Hives topical [facility] Allergy 5-07 [facility] - 00:00: Medical 00 [place] Social History Social Habit Start Date Stop Date Quantity Comments Source Sex Assigned At [facility] Tobacco use and 2020-03-03 2020-03-03 Never used [facility] - exposure 00:00:00 00:00:00 Medical [place] Smoking Status Start Date Stop Date Source Current every day smoker 2020-03-03 00:00:00 [facility] Medications Ordered Filled Start Stop Current Ordering Indication Dosage Frequency Signature Comments Components Source Medication Medication Date Date Medication? Clinician (SIG) Name Name tofacitinib 2019-04 Yes 11mg Take [address] [facility] (Xeljanz 2-02 by mouth. [facility] - XR) 11 mg 11:12: Medical Tb24 37 Center albuterol 2019-04 Yes 2.5mg Inhale 2.[address] (PROVENTIL) 2-02 mg by [facility] - 2.5 mg /3 11:12: mouth via Med ical mL (0.083 37 inhaler. Center %) nebulizer solution albuterol 2019-[address] HFA 2-01 [facility] - (VENTOLIN 00:00: Medical HFA) 90 00 Center mcg/actuati on inhaler sotaloL 2019-04 Yes 120mg Q.5D Take 120 [place] (BETAPACE) 1-17 mg by [place]i 120 MG 11:32: mouth 2 st tablet 21 (two) times a day. digOXIN 2019-04 Yes 125ug QD Take 125 [place] (LANOXIN) 1-17 mcg by [facility]i 125 mcg 11:32: mouth st (0.125 mg) 21 daily. tablet apixaban 2019-04 Yes 5mg Q.5D Take 5 mg [place] (ELIQUIS) 5 1-17 by mouth 2 Me thodi mg tablet 11:32: (two) st 21 times a day. furosemide 2019-04 Yes 40mg Q.5D Take 40 mg [place] (LASIX) 40 1-17 by mouth 2 Met [place] mg tablet 11:32: (two) st 21 times a day. Can take up to 3 times a day if needed tofacitinib 2019-04 Yes 11mg QD Take 11 mg Ray 11 mg 1-17 by mouth [place] tablet 11:32: daily. st extended 21 release 24 hr meloxicam 2019-04 Yes 15mg QD Take 15 mg [place] (MOBIC) 15 1-17 by mouth Meth[place] di mg tablet 11:32: daily. st 21 traMADoL 2019-04 Yes acute pain 50mg Q6H Take 50 mg Ray (ULTRAM) 50 1-17 by mouth Meth gall[place] mg tablet 11:32: every 6 st 21 (six) hours as needed for moderate pain .acute pain. sertraline 2019-04 Yes 50mg QD Take 50 mg [place] (ZOLOFT) 50 1-17 by mouth Meth gall[place] MG tablet 11:32: daily. st 21 buPROPion 2019-04 Yes 150mg QD Take 150 [address] [facility] [address] XL 1-17 mg by [place] (WELLBUTRIN 11:32: mouth st XL) 150 MG 21 daily. 24 hr tablet albuterol 2019-04 Yes 2.5mg Q4H Take 2.5 [facility] [place] st[place] (ACCUNEB) 1-17 mg by [place]i 2.5 mg /3 11:32: nebulizati st mL (0.083 21 on every 4 %) (four) nebulizer hours as solution needed for wheezing. sotaloL 2019-04 Yes 120mg Take 120 [facility] (BETAPACE) 1-09 mg by [facility] - 120 MG 00:00: mouth Medical tablet 00 every 12 Center (twelve) hours. digoxin 2019-04 Yes 125ug QD Take 125 [facility] (LANOXIN) 1-04 mcg by [facility] - 0.125 MG 00:00: mouth Medical tablet 00 daily. Center traMADoL 2019-04 Yes 50mg Take [address] (ULTRAM) 50 0-30 by mouth [place] s - mg tablet 00:00: every 8 Medic al 00 (eight) Center hours as needed. sertraline 2019-04 Yes TAKE 1 & [address] (ZOLOFT) 50 0-22 2 (ONE & [place] s - MG tablet 00:00: ONE HALF) Med ical 00 TABLETS BY Center MOUTH ONCE DAILY Eliquis 5 2019-04 Yes 5mg Q.5D Take [address] MG tablet 0-17 by mouth 2 [place] s - 00:00: (two) Medical 00 times Center daily. buPROPion Yes TAKE [address] [facility] (WELLBUTRIN 9-24 TABLET BY Dee es - XL) 150 MG 00:00: MOUTH ONCE M edical 24 hr 00 DAILY IN Center tablet THE MORNING FOR 90 DAYS meloxicam 2020- No [facility] (MOBIC) 15 9-10 02 [facility] - MG tablet 00:00: 00:00 Medical 00 :00 [place] furosemide Yes 40mg Take [address] (LASIX) 40 2-25 by mouth. [place] - MG tablet 00:00: Medical 00 [place] potassium Yes 20meq Take [address] chloride SA 2-25 mEq by [facility]ukes - (K-DUR,KLOR 00:00: mouth. Medi nicolas -CON) 20 00 Center MEQ tablet Vital Signs Vital Name Observation Time Observation Value Comments Source Oxygen saturation in 2020-03-22 12:32:00 96 /min [facility] - Arterial blood by Medical Ce nter Pulse oximetry Systolic blood 2020-03-03 11:02:00 149 mm[Hg] [facility] pressure [facility] Diastolic blood 2020-03-03 11:02:00 78 mm[Hg] [facility] - pressure [facility] Heart rate 2020-03-03 11:02:00 80 /min [facility] Body weight 2020-03-03 11:02:00 91.491 kg [facility] Systolic blood 2020-02-17 10:50:00 102 mm[Hg] [place] [facility] pressure Diastolic blood 2020-02-17 10:50:00 85 mm[Hg] [place] [facility] pressure Heart rate 2020-02-17 10:50:00 65 /min [facility] Respiratory rate 2020-02-17 10:50:00 16 /min [place] [facility] Oxygen saturation in 2020-02-17 10:50:00 96 /[facility] by Pulse oximetry Body height 2020-02-17 09:07:00 [facility]3 [facility] Body weight 2020-02-17 09:07:00 89.103 kg [place] [facility] BMI 2020-02-17 09:07:00 29.01 kg/m2 [place] [facility] Body temperature 2020-02-17 08:43:00 35.78 Lay [place] [facility] Procedures Procedure Date / Time Performing Clinician Source Performed VENOUS DOPPLER LEGS 2020-03-22 14:08:[address] [facility] SPIROMETRY 2020-03-22 11:30:00 Latoya [facility] ECHOCARDIOGRAM 2020-02-17 11:31:45 Sathish Hardy Pa [facility] TRANSESOPHAGEAL W DOPPLER COLORFLOW ESTIMATED GFR 2020-02-17 09:31:00 Philippe Goldsmith [facility] POC PANEL 2020-02-17 09:31:00 Philippe Goldsmith Pa [facility] Plan of Care Planned Activity Planned Date Details Comments Source Future Scheduled 2019-12-02 INFLUENZA VACCINE (#1) [facility] Test 00:00:00 [code = INFLUENZA Medical Ce nter VACCINE (#1)] Future Scheduled 2019-11-01 INFLUENZA VACCINE [place] [facility] Test 00:00:00 [code = INFLUENZA VACCINE] Future Scheduled 2019-11-01 Medicare IPPE (WELCOME [facility] - Test 00:00:00 TO MEDICARE) [code = Medical Center Medicare IPPE (WELCOME TO MEDICARE)] Future Scheduled 2019-04-[address] [facility] - Test 00:00:00 (12+) [code = [facility] DEPRESSION SCREENING (12+)] Future Scheduled 2007 BREAST CANCER [facility] thodist Test 00:00:00 SCREENING [code = BREAST CANCER SCREENING] Future Scheduled 2007 COLONOSCOPY SCREENING [place] [facility] Test 00:00:00 [code = COLONOSCOPY SCREENING] Future Scheduled 2007 SHINGLES VACCINES (#1) [place] [facility] Test 00:00:00 [code = SHINGLES VACCINES (#1)] Future Scheduled [address] [facility] - Test 00:00:00 (procedure) [code = [facility] 45597259] Future Scheduled 1978 Screening for [facility] thodist Test 00:00:00 malignant neoplasm of cervix (procedure) [code = 143159096] Future Scheduled [address] [facility] - Test 00:00:00 malignant neoplasm of Medica l Center cervix (procedure) [code = 417541864] Future Scheduled 1973 COVID-19 VACCINE (#1) [place] [facility] Test 00:00:00 [code = COVID-19 VACCINE (#1)] Future Scheduled [address] [facility] - Test 00:00:00 0-64 YRS (1 of 1 - Medical C enter PPSV23) [code = PNEUMOCOCCAL VACCINE 0-64 YRS (1 of 1 - PPSV23)] Future Scheduled [address] [facility] - Test 00:00:00 malignant neoplasm of Medica l Center breast (procedure) [code = 740193823] Future Scheduled [address] [facility] - Test 00:00:00 malignant neoplasm of Medica l Center colon (procedure) [code = 949352888] Encounters Start End Encounter Admission Attending Care Care Encounter Source Date/Time Date/Time Type Type Clinicians Facility Department ID 2020-02-17 2020-02-17 Outpatient AGUS [facility] [id number] [place] 00:00:00 00:00:[address] 2019-12-25 2019-12-25 Orders Doctor LUNA [id number] 00:00:00 00:00:00 Only Unassigned, LUCIAN 350.1.13.10 [place] [facility] 4.2.7.2.686 [id number] 2019-08-04 2019-08-04 Refill [facility] [id number] 00:00:00 00:00:00 Anna Mraie Giordano [id number] [place] 4.2.7.2.686 Professio [id number] [address] 2019-07-29 2019-07-29 Refill [facility] [id number] 00:00:00 00:00:00 Anna Marie Giordano [id number] [place] 4.2.7.2.686 Professio [id number] [address] 2019-06-26 2019-06-26 Orders Doctor JEREMY [id number] 00:00:00 00:00:00 Only Unassigned, LUCIAN [id number] [place] [facility] 4.2.7.2.686 [id number] 2019-05-27 2019-05-27 Office [facility] [id number] 09:24:52 10:34:57 Visit Anna Marie Giordano [id number] [place] 4.2.7.2.686 Professio [id number] [address] 2019-01-08 2019-01-08 Office LAKESHIA Gtz [id number] 14:16:47 17:54:57 Visit Esther Y AMBULATOR 350.1.13.21 Y 0.2.7.2.686 [id number] Results Test Description Test Test Results Result Source Time Comments Comments Venous Doppler Legs 2020-03- Ejection FractionSLEH [facility] Bilateral 22 ECHO [facility] - Medical 15:26:01 [facility] Impression1. There is no deep venous obstruction in the common femoral, profundafemoral, femoral, popliteal, posterior tibial or peroneal veins.2. There is no superficial venous obstruction in the great saphenous vein.Left Impression1. There is no deep venous obstruction in the common femoral, profundafemoral, femoral, popliteal, posterior tibial or peroneal veins.2. There is no superficial venous obstruction in the great saphenous vein. Conclusions Summary Venous duplex imaging and compression of the bilateral lower extremities were performed. The veins were adequately visualized. The bilateral venous systems were patent and compressible with no evidence of thrombus. The venous Doppler waveforms were phasic with respiration . Signature - - Velocities are measured in cm/s ; Diameters are measured in cm Interface, External Ris In - 03/23/2020 3:26 PM [facility] - Lower Extremities DVT Study Demographics Patient Name KAYLEE LORENZO Date of Study 03/22/2020 MIKALA Age 65 Visit Number [id number] Gender Female Accession Number [id number] Date of 1955 Referring Latoya Rey VDolores Room Number Physician Funding Analyst Kate Cisneros [facility] Interpreting Hanna Saleh Physician ProcedureType of Study: Veins: Lower Extremities DVT Study, VENOUS DOPPLER LEG, BILATERAL. Indications for Study:Mitral Regurgitation .Patient Status:Routine.Study Location:Vascular Lab.Technical Quality:Adequate visualization.Risk FactorsHistory of Disease+ + ----+ +! Diagnosis !Date!Comments !+ +----+- +!Histor y/Risk Factors: ! !Mitral valve regurg !+ +----+- +Impress ionsRight Impression1. There is no deep venous obstruction in the common femoral, profundafemoral, femoral, popliteal, posterior tibial or peroneal veins.2. There is no superficial venous obstruction in the great saphenous vein.Left Impression1. There is no deep venous obstruction in the common femoral, profundafemoral, femoral, popliteal, posterior tibial or peroneal veins.2. There is no superficial venous obstruction in the great saphenous vein. Conclusions Summary Venous duplex imaging and compression of the bilateral lower extremities were performed. The veins were adequately visualized. The bilateral venous systems were patent and compressible with no evidence of thrombus. The venous Doppler waveforms were phasic with respiration . Signature - - Velocities are measured in cm/s ; Diameters are measured in cm Pulmonary Funct Lab 2020-03- Mariah Carbajal [facility] Spirometry 21 [facility], [facility] Medical 11:30:00 03/22/2020 3:14 [facility] PFT CHARTING REPORT Infection Control/Hand Hygiene procedures followed throughout the encounter with patient: YesPatient Identification Method: Patient name verified on armband, and Medical record on armband, Is the order complete?: Yes Account ID#: [id number] Name: Kaylee Lorenzo Birthdate: 1955 Age: 65 y.o. Sex: female Admission Date: 03/22/2020 Patient Status: Outpatient Reasons/Symptom for having the Test?: surgical clearance Type of study/treatment ordered by physician: Spirometry No results found for: HGB Ranges: Adult Male 13 - 16.8 g/dl Adult Female 12 - 15 g/dl 6 Minute Walk (read only) 03/03/2020 03/22/2020 Pulse 80 - SpO2 - 96 Study Date: 03/22/20 Study Time: 1232 ASSESSMENT History & Physical Mode of Arrival: Ambulatory Pulse: 8319 Resp: 21 SPO2: 96 % on RA Pain Assessment Pain:None TESTING/THERAPEUTICS Medications ordered or required for procedure: N/A PT EDUCATION/INSTRUCTION S Barriers to learning: No known barriers to learning. Learning need identified: Yes, Patient/Family/Symone guerra was informed of the ordered study by the physician Barriers to performing study or treatment: Patient has no known disability to perform the study or treatment. DISCHARGE The study was completed in accordance with the physician's order and patient released from the lab without adverse outcome. Echocardiogram [facility], Radiology [place] transesophageal 17 Results In - Method[facility] st 12:16:00 02/17/2020 12:18 PM [facility] Transesophageal Echo Report [id number], [place], [place] [address] Pat.Name: KAYLEE LORENZO Pat.ID: [id number] St.Date: 02/17/2020 Refer.MD: SATHISH HARDY MD Exam Time: 9:22:00 AM Study Type:RONEL Height: 69in Weight: 196lb BSA: 2.05 m2 Age: 10 1955,65Y Sex: FEMALE BP: 129/99 HR: 90 bpm Sonogrphr: Flori Lama MD Pat. Stat.:Outpatient CPT - 4: 52559-56 Study Status:Final Echo Event ID:[id number] Order ID: [id number] Reason for Study:Clinical symptoms of heart failure, PulmonaryHypertension , SOB, suspected cardiac etiology, Valvulardisease-initi al evalHistory / Clinical:Atrial Fibrillation, COPD, Dyspnea On Exertion,Pulmonary Hypertension, Valvular Heart Disease; Mitral Stenosis,Valvular Heart Disease; Tricuspid RegurgitationProcedur es: 3D Echo, Transesophageal Echo with Colorflow DopplerRace: SUMMAR Y: [place] rate thickening of mitral leaflets. Valve appears rheumatic.Thickened and fused chordae.Moderate to severe mitral stenosis. Moderate to severe mitralregurgitation.L A volume is enlarged. No thrombus or mass is visualized in the LA Jeff appendage.Spontaneous echo contrast is seen in the LA/LA appendage. ----FINDINGS:-------- -------RONEL: The attending remote mortgage underwriter performed the RONEL procedure and was present for the entire duration. The patient was counseled and an informed consent was obtained. Topical and intravenous anesthesia was administered. The esophagus was intubated without difficulty. The probe was passed to the gastric fundus and all standard echocardiographic views were obtained. The patient tolerated the procedure well.LV: LV size is normal. LV EF is normal. Overall wall motion is normal. Estimated EF is 55-59%.RV: RV size is normal. RV systolic function is normal.LA: LA volume is enlarged. No thrombus or mass is visualized in the LA or LA appendage. Spontaneous echo contrast is seen in the LA/LA appendage.RA: RA volume is enlarged.AO: Aortic root diameter is normal in size. Moderate to severe atherosclerotic changes seen in the aortic arch and descending aorta.RUBI: No pericardial effusion.AV: Mild to moderate thickening of AV leaflets.MV: Moderate thickening of mitral leaflets. Valve appears rheumatic. Thickened and fused chordae. Diagnostic of mitral valve stenosis. Good MV leaflet pliability. Moderate to severe mitral regurgitation. Moderate to severe mitral stenosis. PV: No structural PV abnormalities noted.TV: No structural TV abnormalities noted. Moderate to severe tricuspid regurgitationOther: Estimated PA systolic pressure is 35 mmHg, assuming a mean RAP of 10 mmHg. T EE: Ane sthesia: Per Anesthesia ASA Class: 4Physician: Philippe Goldsmith M.D. Mailroom Clerk: Howard Farias RONEL BP HR Post RONEL BP HR 129/99 90 116/53 83Meds: Viscous xylocaine, Cetacaine spray to oropharynx, PerAnesthesiaComplica tions: None Condition: Stable MEASUR EMENTS: - DOPPLERMV Forward Flow MV pkVel 206.2 cm/s MV TVI 48.8 cm MV pkPG 17 mmHg MV Area P1/2t 1.5 cm2 (4-6) MV Mean G 7.7 mmHg MV Dec T 496 msecMR PISA MR AliasVel 48.6 cm/s MR RgpkVel 572.5 cm/s MR PISA rad 0.7 cm MR KAMRON 0.3 cm2 MR Rg Flw 145.7 ml/s MR RgVol 44.2 ml MR RgTVI 173.9 cm Signed 02/17/2020 12:16 Elina Goldsmith M.D. POC panel 2020-02-17 09:34:15 Test Item Value Reference Range Interpretation Comme nts POC sodium (test code = 2947-0) 140 mmol/L 135-148 POC potassium (test code = 3.7 mmol/L 3.5-5 6298-4) POC chloride (test code = 2069-3) 100 mmol/L 99-109 POC CO2 (test code = 53405-8) 29 mmol/L 24-31 POC glucose (test code = 2339-0) 100 mg/dL 65-99 H POC BUN (test code = 6299-2) 18 mg/dL 8-24 POC creatinine (test code = 0.8 mg/dl 0.5-0.9 58171-7) POC hematocrit (test code = 43 % 37-47 4544-3) POC anion gap (test code = 16 mmol/L 8-20 O perator Name: Margareth [id number]) NenitaDevice ID : [id number] Lab Interpretation (test code = Abnormal 32455-5) Cory WardEstimated [id number] 09:34:15 Test Item Value Reference Range Interpretation Comments Estimated GFR (test 78 mL/min/1.73 m2 Caterg ory Units code = 59493-6) Interpretati onG1 >=90 Normal or highG2 60-89 Mildly xwjvmuesqD6y 45-59 Mildly to [place] rately wwtkasnabM0m 30-44 Moderately to severely decreasedG4 15-29 Severely decre asedG5 <15 Kidn ey failureThe eGFR was calculated nirav dykes the Chronic Kidney Disease Epidemiology Co llaboration (CKD-EPI) equat ion. Interpretation is based on recommendations of the National Kidney Foundation-Kidn ey Disease Outcomes Qualit y Initiative (NKF-KDOQI) pub lished in 2014. Cory Ward
--- OUTSIDE RECORDS SUMMARY | 2020-03-28 12:29 | XMS REPORT | Clinical Summary ---
:1955 Author Organization [facility] Address [address] [place] [address] Care Team Providers Name Role Phone Unavailable Primary Care Provider Unavailable Allergies Active Allergy Reactions Severity Noted Date Comments Avocado 11/05/2015 Other reaction( s): Other - See comments Pt reports upse t stomach after consumption but no n/v. Dexter Sapp [place] ext. [id number] Codeine High 02/16/2020 Other reaction( s): GI Intolerance Iodine Hives 08/07/2007 topical Iodine-Isopropyl Alcohol 01/08/2019 Povidone-Iodine Hives High 02/16/2020 Medications Medication Sig Dispensed Refills Start Date End Date Status digoxin (LANOXIN) Take 125 mcg 0 02/04/2020 Active 0.125 MG tablet by mouth daily. sotaloL Take 120 mg 0 02/09/2020 Active (BETAPACE) 120 MG by mouth tablet every 12 (twelve) hours. Eliquis 5 MG Take 5 mg by 0 01/17/2020 Act ezekiel tablet mouth 2 (two) times daily. furosemide Take 40 mg by 0 05/27/2019 Acti ve (LASIX) 40 MG mouth. tablet buPROPion TAKE 1 TABLET 0 12/25/2019 Activ e (WELLBUTRIN XL) BY MOUTH ONCE 150 MG 24 hr DAILY IN THE tablet MORNING FOR 90 DAYS sertraline TAKE 1 & 1 2 0 01/22/2020 Activ e (ZOLOFT) 50 MG (ONE & ONE tablet HALF) TABLETS BY MOUTH ONCE DAILY tofacitinib Take 11 mg by 0 Acti ve (Xeljanz XR) 11 mouth. mg Tb24 albuterol Inhale 2.5 mg 0 Active (PROVENTIL) 2.5 by mouth via mg /3 mL (0.083 inhaler. %) nebulizer solution albuterol HFA 0 03/02/2020 Activ e (VENTOLIN HFA) 90 mcg/actuation inhaler potassium Take 20 mEq 0 05/27/2019 Active chloride SA by mouth. (K-DUR,KLOR-CON) 20 MEQ tablet traMADoL (ULTRAM) Take 50 mg by 0 2020 Active 50 mg tablet mouth every 8 (eight) hours as needed. meloxicam (MOBIC) 0 12/11/2019 D iscontinued 15 MG tablet 0 (Discon tinued by another clinician) Active Problems Not on file Encounters Date Type Specialty Care Team Description 03/22/2020 Hospital Encounter Cardiology Candido Kleinu matic mitral MD [facility] valve regurgita tion 03/22/2020 Hospital Encounter Respiratory Therapy Candido Kleinumatic mitral MD [facility] valve regurgita tion 03/19/2020 Outside Orders Central Scheduling Candido Klein Carley l valve insufficiency, unspecified etiology (Primary Dx); MD [facility] Nonrheumatic mi tral valve regurgitation 03/03/2020 Office Visit Cardiology Candido Klein Rheumatic carola ral stenosis (Primary Dx); MD [facility] Rheumatic carley l regurgitation; Rheumatic tricu spid valve regurgitation; Pulmonary hyper tension (HCC); Rheumatoid arth ritis involving multiple sites, unspecified whether rheumatoid factor present (HCC); Screening for c hronic bronchitis and emphysema; Longstanding pe rsistent atrial fibrillation (HCC); Anticoagulation adequate; History of mate rnal pulmonary embolus after 03/28/2019 Social History Tobacco Use Types Packs/Day Years Used Date Current Every Day Smoker Smokeless Tobacco: Never Used Sex Assigned at Date Recorded Not on file Last Filed Vital Signs Vital Sign Reading Time Taken Comments Blood Pressure 149/78 03/03/2020 11:02 AM [employer]ESSION SUPER[employer] Pulse 80 03/03/2020 11:02 AM [employer]CESSION SUPERVISOR Temperature - - Respiratory Rate - - Oxygen Saturation 96% 03/22/2020 12:32 PM [employer]CESSION SUPERVISOR Inhaled Oxygen Concentration - - Weight 91.5 kg (201 lb 11.2 oz) 03/03/2020 11:02 AM [employer]CESSION SUPERVISOR Height - - Body Mass Index - - Plan of Treatment Health Maintenance Due Date Last Done Comments BREAST CANCER SCREENING 1955 COLON CANCER SCREENING COLONOSCOPY 1955 PNEUMOCOCCAL VACCINE 0-64 YRS (1 of 1 - PPSV23) 1963 CERVICAL CANCER SCREENING PAP ONLY (Age 21-65) 1978 LIPID PANEL 2002 DEPRESSION SCREENING (12+) 04/02/2019 Medicare IPPE (WELCOME TO MEDICARE) 11/01/2019 INFLUENZA VACCINE (#1) 2019 Procedures Procedure Name Priority Date/Time Associated Diagnosis Comme nts VENOUS DOPPLER LEGS Routine 03/22/2020 2:08 Nonrheumatic mitr al Results for this BILATERAL PM [employer]CESSION SUPERVISOR valve regurgitation procedur e are in the results section. SPIROMETRY Routine 03/22/2020 11:30 Nonrheumatic mitral Resu lts for this AM [employer]CESSION SUPERVISOR valve regurgitation procedur e are in the results section. after 03/28/2019 Results Venous Doppler Legs Bilateral (03/22/2020 2:08 PM CONCESSION SUPERVISOR) Pathologist Sig nature Ejection Fraction [facility] [place] CPA Specimen Impressions Performed At Right [facility]CHO [facility]ART[facility] 1. There is no deep venous obstruction in the common femoral, profunda femoral, femoral, popliteal, posterior tibial or peroneal veins. 2. There is no superficial venous obstruction in the great saphenous vein. Left Impression 1. There is no deep venous obstruction in the common femoral, profunda femoral, femoral, popliteal, posterior tibial or peroneal veins. 2. There is no superficial venous obstruction in the great saphenous vein. Conclusions Summary Venous duplex imaging and compression of the bilateral lower extremities were performed. The veins were adequately visualized. The bilateral venous systems were patent and compressible with no evidence of thrombus. The venous Doppler waveforms were phasic with respiration . Signature Velocities are measured in cm/s ; Diameters are measured in cm Narrative Performed At [facility] - Lower Extremities DVT Study [facility] Demographics Patient Name CELSA BARTLETT Date of Study 03/22/2020 [place] Age 65 Visit Number [id number] Gender Female Accession Number [id number] Date of 1955 Referring Latoya Stiles Room Number Physician Website Project Manager Kate Cisneros T Interpreting Hanna Saleh, Physician Procedure Type of Study: Veins: Lower Extremities DVT Study, VENOUS DOPPLER LEG, BILATERAL. Indications for Study:Mitral Regurgitati on . Patient Status:Routine. Study Location:Vascular Lab. Technical Quality:Adequate visualization . Risk Factors History of Disease + +----+ + !Diagnosis !Date!Comments ! + +----+ + !History/Risk Factors: ! !Mitral valve regurg ! + +----+ + Procedure Note Interface, External Ris In - 03/23/2020 3:26 PM CONCESSION SUPERVISOR [facility] - Lower Extremities DVT Study Demographics Patient Name CELSA BARTLETT Da te of Study 03/22/2020 [place] Ag e 65 Visit Number [id number] Ge nder Female Accession Number [id number] Da te of 1955 Referring Latoya Henriquez Number Physician Website Project Manager Kate Cisneros RVT In terpreting Hanna Saleh, Ph ysician Procedure Type of Study: Veins: Lower Extremities DVT Study, ANNIE OUS DOPPLER LEG, BILATERAL. Indications for Study:Mitral Regurgitati on . Patient Status:Routine. Study Location:Vascular Lab. Technical Quality:Adequate visualization . Risk Factors History of Disease + +----+ + !Diagnosis !Date! Comments ! + +----+ + !History/Risk Factors: ! ! Mitral valve regurg ! + +----+ + Impressions Right Impression 1. There is no deep venous obstruction i n the common femoral, profunda femoral, femoral, popliteal, posterior t ibial or peroneal veins. 2. There is no superficial venous obstru ction in the great saphenous vein. Left Impression 1. There is no deep venous obstruction i n the common femoral, profunda femoral, femoral, popliteal, posterior t ibial or peroneal veins. 2. There is no superficial venous obstru ction in the great saphenous vein. Conclusions Summary Venous duplex imaging and compression o f the bilateral lower extremities were performed. The veins were adequate ly visualized. The bilateral venous systems were patent and compressible wi th no evidence of thrombus. The venous Doppler waveforms were phasic wi th respiration . Signature Velocities are measured in cm/s ; Diamet ers are measured in cm Performing Organization Address City/State/Zipcode Phone Number [facility] Pulmonary Funct Lab Spirometry (03/22/2020 11:30 AM CONCESSION SUPERVISOR) Narrative Performed At Mariah Carbajal RRT, [facility] 020 3:14 PM [facility] PFT CHARTING REPORT Infection Control/Hand Hygiene procedure s followed throughout the encounter with patient: Yes Patient Identification Method: Patient n mitra verified on armband, and Medical record on armband, Is the order complete?: Yes Account ID#: [id number] Patient Name: Celsa Bartlett Birthdate: 1955 Age: 65 y.o. Sex: female Admission Date: 03/22/2020 Patient Status: Outpatient Reasons/Symptom for having the Test?: syed rgical clearance Type of study/treatment ordered by physi lauar: Spirometry No results found for: HGB Ranges: Adult Male 13 - 16.8 g/dl Adult Female 12 - 15 g/dl 6 Minute Walk (read only) 03/03/202003/03 Pulse 80 - SpO2 - 96 Study Date: 03/22/20 [facility] Time: 1232 ASSESSMENT History & Physical Mode of Arrival: Ambulatory Pulse: 83 19 Resp: 21 SPO2: 96 % on RA Pain Assessment Pain:None TESTING/THERAPEUTICS Medications ordered or required for pro cedure: N/A PT EDUCATION/INSTRUCTIONS Barriers to learning: No known barriers to learning. Learning need identified: Yes, Patient/ Family/Guradian was informed of the ordered study by the phy sician Barriers to performing study or treatme nt: Patient has no known disability to perform the study or treat ment. DISCHARGE The study was completed in accordance wi th the physician's order and patient released from the lab without adverse outc ome. after 03/28/2019 Insurance Payer Benefit Plan / Subscriber ID Effective Dates Phone Addre ss Type Group [facility]/MEDICARE [id number] 2019-Present MEDICARE MGD CARE COMPLETE
--- NOTE | 2020-03-28 16:34 | RAD REPORT ---
EXAM DESCRIPTION: RAD - Chest Pa And Lat (2 Views) - 03/28/2020 3:58 pm CLINICAL HISTORY: Dyspnea;Cough COMPARISON: Portable chest June 10 TECHNIQUE: Frontal and lateral views of the chest were obtained. FINDINGS: The lungs are clear of a peripheral mass or consolidation. Interstitial pattern is promine nt but not clearly different. Cardiomegaly is present primarily atrial enlargement, particularly le ft atrium. No pleural effusion or pneumothorax seen. No acute bony finding noted. No aortic abnorma lity. IMPRESSION: Chronic interstitial lung disease similar to comparison. No focal mass or consolidation. Cardiomegaly without additional findings of acute failure or volume overload.
[2020-03-28 16:56] LABS: Absolute Lymphocytes (CBC) 1.4 K/uL (0.7-4.9); Basophils % 0.3 % (0-1.3); Hematocrit 38.2 % (36.0-45.0); Lymphocytes % 12.4 % (15.3-44.8); RBC Red Blood Cell Count 4.07 M/uL (3.86-4.86)
[2020-03-28] MEDS ORDERED: METHYLPREDNISOLONE 125 MG INJ ONE (16:58)
[2020-03-28] MEDS ORDERED: IPRATROPIUM BROM 0.5MG/2.5ML ONE (16:58)
[2020-03-28] MEDS ORDERED: MAGNESIUM SULFATE 1 gm IVPB 1 GM/100 ML BAG IV ONE (17:00)
[2020-03-28] MEDS ORDERED: LEVALBUTEROL 1.25 MG/3 ML NEB ONE (17:00)
[2020-03-28 17:13] LABS: Potassium 3.8 mmol/L (3.5-5.1)
[2020-03-28] MEDS ORDERED: FUROSEMIDE 40 MG/4 ML VIAL ONE (17:58)
--- NOTE | 2020-03-28 17:58 | ER ---
Nurse's Notes [facility] Name: Celsa Lorenzo Age: 65 yrs Sex: Female : 1955 Arrival Date: 03/28/2020 Time: 12:27 Bed 15 Private MD: Diagnosis: Chronic obstructive pulmonary disease with (acute) exacerbation;Combined systolic (congestive) and diastolic (congestive) heart failure Presentation: 03/28 13:42 Chief complaint: Patient states: Cough and SOB at rest started last night. Pt is a ca1 cardiac pt and will be on surgery for valve replacement or valve repair. Denies fever. Reports a little chest pain that just started right NOW, intermittent. Pt states, "had breathing treatments x 2 with temporary relief". Coronavirus screen: Client denies travel out of the [place] in the last 14 days. cough unrelated to allergies, shortness of breath, Client presents with at least one sign or symptom that may indicate coronavirus-19. Standard/surgical mask placed on the client. Provider contacted for isolation considerations. Ebola Screen: Patient negative for fever greater than or equal to 101.5 degrees Fahrenheit, and additional compatible Ebola Virus Disease symptoms Patient denies exposure to infectious person. Patient denies travel to an Ebola-affected area in the 21 days before illness onset. No symptoms or risks identified at this time. Initial Sepsis Screen: Does the patient meet any 2 criteria? No. Patient's initial sepsis screen is negative. Does the patient have a suspected source of infection? No. Patient's initial sepsis screen is negative. Risk Assessment: Do you want to hurt yourself or someone else? Patient reports no desire to harm self or others. Onset of symptoms was March 28, 2020. 13:42 Method Of Arrival: Ambulatory ca1 13:42 Acuity: MAXIMO 2 ca1 Triage Assessment: 13:51 General:. General:. Respiratory: Reports shortness of breath at rest Breath sounds with ca1 wheezes bilaterally. Onset: The symptoms/episode began/occurred yesterday, the patient has mild shortness of breath. Historical: - Allergies: 13:47 Betadine; ca1 13:47 Iodine; Topical only; ca1 - PMHx: 13:47 ADD/ADHD; Atrial Fib; cardioversion; CHF; COPD; Hypertension; mitral valve stenosis; ca1 pulmonary HTN; resp failure; Rheumatoid Arthritis; - PSHx: 13:47 Appendectomy; Tubal ligation; ca1 - Immunization history:: Adult Immunizations up to date, Flu vaccine is not up to date. - Social history:: Smoking status: Patient reports the use of cigarette tobacco products, smokes one-half pack cigarettes per day, Patient/guardian denies using tobacco, but has a distant history of tobacco abuse. - Family history:: not pertinent. - Hospitalizations: : No recent hospitalization is reported. Screenin:20 Abuse screen: Denies threats or abuse. Denies injuries from another. Nutritional zb screening: No deficits noted. Tuberculosis screening: No symptoms or risk factors identified. Fall Risk No fall in past 12 months (0 pts). No secondary diagnosis (0 pts). IV access (20 points). Ambulatory Aid- None/Bed Rest/Nurse Assist (0 pts). Gait- Normal/Bed Rest/Wheelchair (0 pts) Mental Status- Oriented to own ability (0 pts). Total Callejas Fall Scale indicates No Risk (0-24 pts). Assessment: 16:20 General: Appears in no apparent distress. comfortable, Behavior is calm, cooperative, zb appropriate for age. Pain: Denies pain. Neuro: Level of Consciousness is awake, alert, obeys commands, Oriented to person, place, time, situation. Cardiovascular: Reports shortness of breath, Denies chest pain, diaphoresis, nausea, palpitations, Heart tones muffled Capillary refill < 3 seconds in bilateral fingers Patient's skin is warm and dry. Pulses are all present. Rhythm is sinus rhythm. Respiratory: Airway is patent Respiratory effort is even, labored, Respiratory pattern is tachypnea Breath sounds are coarse Breath sounds with wheezes bilaterally. GI: No signs and/or symptoms were reported involving the gastrointestinal system. Abdomen is round non-distended. : No signs and/or symptoms were reported regarding the genitourinary system. EENT: No signs and/or symptoms were reported regarding the EENT system. Derm: Skin is intact, is healthy with good turgor, Skin is dry, Skin is normal. Musculoskeletal: Circulation, motion, and sensation intact. Capillary refill < 3 seconds, in bilateral fingers. Range of motion: intact in all extremities. 17:20 Reassessment: Patient appears in no apparent distress at this time. Patient and/or zb family updated on plan of care and expected duration. Pain level reassessed. Patient is alert, oriented x 3, equal unlabored respirations, skin warm/dry/pink. marked symptoms of relief. pt states that she is feeling a lot better. RR decreased to 16. breathing even, unlabored. Patient states feeling better. Patient states symptoms have improved. 18:12 Reassessment: Patient appears in no apparent distress at this time. Patient and/or zb family updated on plan of care and expected duration. Pain level reassessed. Patient is alert, oriented x 3, equal unlabored respirations, skin warm/dry/pink. d/c pending completion of IV fluids. Vital Signs: 13:42 BP 134 / 74; Pulse 70; Resp 22 S; Temp 97.5(TE); Pulse Ox 98% on R/A; Weight 90.72 kg ca1 (R); Height 5 ft. 9 in. (175.26 cm) (R); Pain 2/10; 16:20 BP 138 / 95; Pulse 88; Resp 22; Pulse Ox 100% on R/A; Pain 0/10; zb 17:20 BP 150 / 115; Pulse 85; Resp 16; Pulse Ox 95% on R/A; zb 13:42 Body Mass Index 29.54 (90.72 kg, 175.26 cm) ca1 ED Course: 12:27 Patient arrived in ED. as 13:46 Triage completed. ca1 13:47 Arm band placed on right wrist. ca1 13:51 Kecia Chung, RN is Primary Nurse. ca1 15:55 Chest Pa And Lat (2 Views) XRAY In Process Unspecified. EDMS 16:01 Geovany Barksdale MD is Attending Physician. rn 16:17 Ceci Johnson, EDWINA is Primary Nurse. zb 16:20 Patient has correct armband on for positive identification. Bed in low position. Call zb light in reach. Side rails up X 1. Adult w/ patient. media monitor on. Pulse ox on. NIBP on. Door closed. Noise minimized. Warm blanket given. 16:45 Inserted saline lock: 20 gauge in right forearm, using aseptic technique. Blood dh4 collected. 16:45 Flu Sent. dh4 16:46 COVID-19 Sent. dh4 18:30 No provider procedures requiring assistance completed. IV discontinued, intact, zb bleeding controlled, No redness/swelling at site. Pressure dressing applied. Administered Medications: 16:56 Drug: SOLU-Medrol 125 mg Route: IVP; Site: right antecubital; zb 17:36 Follow up: Response: No adverse reaction zb 16:56 Drug: Xopenex (3) 1.25 mg Route: Inhalation; zb 17:32 Follow up: Response: No adverse reaction; Marked relief of symptoms zb 16:56 Drug: AtroVENT Aerosol 0.5 mg Route: Inhalation; zb 17:33 Follow up: Response: No adverse reaction zb 16:56 Drug: Magnesium Sulfate 1 grams Route: IVPB; Infused Over: 1 hrs; Site: right zb antecubital; 17:50 Drug: Lasix 40 mg Route: IVP; Site: right antecubital; zb 18:30 Follow up: Response: No adverse reaction zb 18:25 Drug: Zithromax 500 mg Route: PO; zb 18:30 Follow up: Response: No adverse reaction zb Outcome: 17:58 Discharge ordered by MD. rn 18:30 Discharged to home ambulatory. zb 18:30 Condition: stable 18:30 Discharge instructions given to patient, family, Instructed on discharge instructions, follow up and referral plans. medication usage, Demonstrated understanding of instructions, follow-up care, medications, Prescriptions given X 3. 18:49 Patient left the ED. zb Addendum: 03/31/2020 07:57 Addendum: COVID-19 Result: Negative result given to RN to notify pt. Left voice mail. rosie sánchez 13:23 Addendum: COVID-19 Result: Negative result given to RN to notify pt. Contacted by: Dr. rosie Lynn. Notified pt of negative COVID 19 swab results. Pt advised that even with a negative test result they should remain in isolation until symptom free for 3 days without medication. Pt also advised to return to the ED for worsening symptoms. Signatures: Dispatcher [employer] EDMS Symone Cid RN RN Barbra Badillo Roman, MD MD rn Acob, Cheryl, RN RN ca1 Bacilio Mcknight [facility] Ceci Johnson RN RN zb Corrections: (The following items were deleted from the chart) 03/28 13:52 13:42 Chief complaint: Patient states: Cough and SOB at rest started last night. Pt is ca1 a cardiac pt and will be on surgery for valve replacement or valve repair. Denies fever. Reports a little chest pain that just started right NOW, intermittent. ca1
--- NOTE | 2020-03-28 17:58 | EDPHYS ---
Physician Documentation [facility] Name: Celsa Lorenzo Age: 65 yrs Sex: Female : 1955 Arrival Date: 03/28/2020 Time: 12:27 Bed 15 Private MD: ED Physician Geovany Barksdale HPI: 03/28 16:18 This 65 yrs old Female presents to ER via Ambulatory with complaints of rn Breathing Difficulty. 16:18 The patient has shortness of breath at rest, with light activity. Onset: The rn symptoms/episode began/occurred 1 week(s) ago. Duration: The symptoms are intermittent. The patient's shortness of breath is aggravated by exertion, light activity, supine position, talking, walking. Associated signs and symptoms: Pertinent positives: productive cough, Pertinent negatives: dizziness, fever, hemoptysis, loss of consciousness. Severity of symptoms: At their worst the symptoms were moderate in the emergency department the symptoms are unchanged. The patient has experienced similar episodes in the past. The patient has not recently seen a physician. Reports sob for months, but worse over last week, worse with exertion/walking/talking, no fever, + cough, stopped smoking 3 days ago, no known sick contacts. Reports has bad mitral and tricuspid valves, due for surgery at some point, is getting pre-op stuff currently. Reports albuterol helps for a short period of time. . Historical: - Allergies: 13:47 Betadine; ca1 13:47 Iodine; Topical only; ca1 - PMHx: 13:47 ADD/ADHD; Atrial Fib; cardioversion; CHF; COPD; Hypertension; mitral valve stenosis; ca1 pulmonary HTN; resp failure; Rheumatoid Arthritis; - PSHx: 13:47 Appendectomy; Tubal ligation; ca1 - Immunization history:: Adult Immunizations up to date, Flu vaccine is not up to date. - Social history:: Smoking status: Patient reports the use of cigarette tobacco products, smokes one-half pack cigarettes per day, Patient/guardian denies using tobacco, but has a distant history of tobacco abuse. - Family history:: not pertinent. - Hospitalizations: : No recent hospitalization is reported. ROS: 16:21 Constitutional: Negative for fever, chills, and weight loss, Eyes: Negative for injury, rn pain, redness, and discharge, Cardiovascular: Negative for chest pain, palpitations, and edema, Respiratory: Negative for pleuritic chest pain Abdomen/GI: Negative for abdominal pain, nausea, vomiting, diarrhea, and constipation Back: Negative for injury and pain, : Negative for injury, bleeding, discharge, and swelling, MS/Extremity: Negative for injury and deformity, Skin: Negative for injury, rash, and discoloration, Neuro: Negative for headache, weakness, numbness, tingling, and seizure. Exam: 16:21 Constitutional: This is a well developed, well nourished patient who is awake, alert, rn + tachypnea Head/Face: Normocephalic, atraumatic. Cardiovascular: Regular rate and rhythm. No pulse deficits. Respiratory: + tachypnea with wheezing and diminished breath sounds bilateral bases. No retractions. Abdomen/GI: soft, non-tender Skin: Warm, dry MS/ Extremity: Pulses equal, no cyanosis. Neuro: Awake and alert, GCS 15, oriented to person, place, time, and situation 17:32 ECG was reviewed by the Attending Physician. rn Vital Signs: 13:42 BP 134 / 74; Pulse 70; Resp 22 S; Temp 97.5(TE); Pulse Ox 98% on R/A; Weight 90.72 kg ca1 (R); Height 5 ft. 9 in. (175.26 cm) (R); Pain 2/10; 16:20 BP 138 / 95; Pulse 88; Resp 22; Pulse Ox 100% on R/A; Pain 0/10; zb 17:20 BP 150 / 115; Pulse 85; Resp 16; Pulse Ox 95% on R/A; zb 13:42 Body Mass Index 29.54 (90.72 kg, 175.26 cm) ca1 MDM: 16:01 Patient medically screened. rn 16:30 Data interpreted: surveillance operator: rate is 77 beats/min, rhythm is atrial fibrillation, rn with no ectopy, Interpretation: atrial fibrillation, Pulse oximetry: on room air is 96 %. Interpretation: normal. 17:56 Differential diagnosis: Bronchitis Chronic Obstructive Pulmonary Disease pneumonia, rn Pneumothorax pulmonary edema. Data reviewed: vital signs, nurses notes, lab test result(s), EKG, radiologic studies, plain films, and as a result, I will discharge patient. Counseling: I had a detailed discussion with the patient and/or guardian regarding: the historical points, exam findings, and any diagnostic results supporting the discharge/admit diagnosis, lab results, radiology results, the need for outpatient follow up, to return to the emergency department if symptoms worsen or persist or if there are any questions or concerns that arise at home. 17:57 Response to treatment: the patient's symptoms have markedly improved after treatment, rn and as a result, I will discharge patient. Special discussion: I discussed with the patient/guardian in detail that at this point there is no indication for admission to the hospital. It is understood, however, that if the symptoms persist or worsen the patient needs to return immediately for re-evaluation. ED course: RR down to 12, feels much better, states ready to go home, combination of mild CHF/pulmonary edema and COPD. Will dc home with steroids and abx along with her nebs at home and lasix. . 03/28 16:16 Order name: CBC with Diff; Complete Time: 17:14 rn 03/28 16:16 Order name: Basic Metabolic Panel; Complete Time: 17:14 03/28 16:16 Order name: Procalcitonin; Complete Time: 17:45 rn 03/28 16:16 Order name: COVID-19 rn 03/28 16:17 Order name: Flu; Complete Time: 17:45 rn 03/28 15:26 Order name: Chest Pa And Lat (2 Views) XRAY; Complete Time: 16:38 ca1 03/28 16:52 Order name: NT PRO-BNP; Complete Time: 17:14 EDMS 03/28 13:48 Order name: EKG; Complete Time: 13:49 ca1 03/28 13:48 Order name: EKG - Nurse/Tech; Complete Time: 13:48 ca1 03/28 16:16 Order name: IV Start; Complete Time: 16:45 rn EC:32 Rate is 77 beats/min. Rhythm is irregularly irregular. QRS [place] is Normal. NH interval rn is normal. QRS interval is normal. QT interval is normal. No Q waves. T waves are Normal. No ST changes noted. Clinical impression: Atrial Fibrillation. Interpreted by me. Reviewed by me. Administered Medications: 16:56 Drug: SOLU-Medrol 125 mg Route: IVP; Site: right antecubital; zb 17:36 Follow up: Response: No adverse reaction zb 16:56 Drug: Xopenex (3) 1.25 mg Route: Inhalation; zb 17:32 Follow up: Response: No adverse reaction; Marked relief of symptoms zb 16:56 Drug: AtroVENT Aerosol 0.5 mg Route: Inhalation; zb 17:33 Follow up: Response: No adverse reaction zb 16:56 Drug: Magnesium Sulfate 1 grams Route: IVPB; Infused Over: 1 hrs; Site: right zb antecubital; 17:50 Drug: Lasix 40 mg Route: IVP; Site: right antecubital; zb 18:30 Follow up: Response: No adverse reaction zb 18:25 Drug: Zithromax 500 mg Route: PO; zb 18:30 Follow up: Response: No adverse reaction zb Disposition: 03/28/20 17:58 Discharged to Home. Impression: Chronic obstructive pulmonary disease with (acute) exacerbation, Combined systolic (congestive) and diastolic (congestive) heart failure. - Condition is Stable. - Discharge Instructions: Heart Failure, Chronic Obstructive Pulmonary Disease Exacerbation. - Prescriptions for Prednisone 20 mg Oral Tablet - take 3 tablet by ORAL route once daily for 5 days; 15 tablet. Zithromax Z- Dionte 250 mg Oral Tablet - take 1 tablet by ORAL route as directed for 5 days Day 1 - take two (2) tablets one time. Day 2, 3, 4 , 5 take one (1) tablet once daily.; 6 tablet. - Medication Reconciliation Form, Thank You Letter, Antibiotic Education, Prescription Opioid Use form. - Follow up: Private Physician; When: As needed; Reason: Recheck today's complaints, Re-evaluation by your physician. - Problem is new. - Symptoms have improved. Signatures: Dispatcher [employer] [facility] [place] Geovany Barksdale MD MD rn Juliet, Kecia RN RN Ceci Brown RN RN zb Corrections: (The following items were deleted from the chart) 16:52 16:21 PROBNP+C.LAB.BRZ ordered. [facility] 18:49 17:58 03/28/2020 17:58 Discharged to Home. Impression: Chronic obstructive pulmonary zb disease with (acute) exacerbation; Combined systolic (congestive) and diastolic (congestive) heart failure. Condition is Stable. Forms are Medication Reconciliation Form, Thank You Letter, Antibiotic Education, Prescription Opioid Use. Follow up: Private Physician; When: As needed; Reason: Recheck today's complaints, Re-evaluation by your physician. Problem is new. Symptoms have improved. rn
[2020-03-28] MEDS ORDERED: AZITHROMYCIN 250 MG TAB ONE (18:36)
[2020-03-28 19:01] VITALS: TEMP 97.5
[2020-03-28 19:04] VITALS: BP 150/115; O2SAT 95
== END 2020-03-28 18:49 | disposition home or self-care (01) ==
LOC: ER 12:27
DX: J44.1 Chronic obstructive pulmonary disease with (acute) exacerbation (principal); I50.40 Unspecified combined systolic (congestive) and diastolic (congestive) heart failure; Z20.828 Contact with and (suspected) exposure to other viral communicable diseases; F17.210 Nicotine dependence, cigarettes, uncomplicated; I10 Essential (primary) hypertension; I05.0 Rheumatic mitral stenosis
CPT/HCPCS: 93005 ×2; 85025; 80048; 36415; 84145; 83880; 87804 ×2; 71046; 96375; 96374; 99285; U0002; J1940; J3475; J2930

== ENCOUNTER 2020-06-13 03:11 | Inpatient (IN) | payer MEDICARE, OTHER ==
--- OUTSIDE RECORDS SUMMARY | 2020-06-13 03:15 | XMS REPORT | Continuity of Care Document ---
:1955 Author Organization [facility] t Address [address] [place] [address] Care Team Providers Name Role Phone Wilton Penaloza DO Attending Clinician Doctor Unassigned, Name Attending Clinician Unavailable Tate Klein MD Attending Clinician GUILLERMO Attending Clinician Unavailable Ravinder SALINAS Attending Clinician Ulisses SALINAS Y Attending Clinician GUILLERMO Admitting Clinician Unavailable Payers Payer Name Policy Type Policy Effective Date Expiration Date Sour ce Number [facility] [id number] [address] [facility] - MEDICARE MGD 00:00:00 - Medical CAREAA/MEDICARE Center [id number] 2019-Present Problems This patient has no known problems. Allergies, Adverse Reactions, Alerts Allergy Allergy Status Severity Reaction(s) Onset Inactive Treating Comm ents Source Name Type Date Date Clinician Povidone Drug Active Hives 2019-[address] [facility] Medical 00 Center Codeine Drug Active Severe 2019-[address] [facility] [address] Allergy 1-16 reaction( [facility] - 00:00: s): GI Medical 00 Intoleran Center ce Iodine-I Drug Active 2018-[address] [facility] sopropyl Allergy 0-09 [facility] - Alcohol 00:00: Medical 00 Center Avocado Drug Active Other [facility] Allergy 8-05 reaction( [facility]: s): Other [facility] after consumpti on but no n/v. Dexter Sek[address] [place] ext. [id number] Iodine Drug Active Hives topical [facility] Allergy - [facility] - 00:[facility]: Medical 00 [place] Social History Social Habit Start Date Stop Date Quantity Comments Source Sex Assigned At [facility] Tobacco use and 2020-03-03 2020-03-03 Never used [facility] - exposure 00:00:00 00:00:00 [facility] Smoking Status Start Date Stop Date Source Current every day smoker 2020-03-03 00:00:00 [facility] Medications Ordered Filled Start Stop Current Ordering Indication Dosage Frequency Signature Comments Components Source Medication Medication Date Date Medication? Clinician (SIG) Name Name tofacitinib 2019-04 Yes 11mg Take [address] [facility] (Xeljanz 2-02 by mouth. [facility] - XR) 11 mg 11:12: Medical Tb24 37 [place] albuterol 2019-04 Yes 2.5mg Inhale 2.[address] (PROVENTIL) 2-02 mg by [facility] - 2.5 mg /3 11:12: mouth via Med ical mL (0.083 37 inhaler. Center %) nebulizer solution albuterol 2019-[address] HFA 2-01 [facility] - (VENTOLIN 00:00: Medical HFA) 90 00 [place] mcg/actuati on inhaler sotaloL 2019-04 Yes 120mg Take [facility] (BETAPACE) 1-09 mg by [facility] - 120 MG 00:00: mouth Medical tablet 00 every 12 Center (twelve) hours. digoxin 2019-04 Yes 125ug QD Take 125 [facility] (LANOXIN) 1-04 mcg by [facility] - 0.125 MG 00:00: mouth Medical tablet 00 daily. [place] traMADoL 2019-04 Yes 50mg Take 50 mg [...] M edical 24 hr 00 DAILY IN [place] tablet THE MORNING FOR 90 DAYS meloxicam No [facility] (MOBIC) 15 910 03-03 [facility] - MG tablet 00:00: 00:00 Medical 00 :00 [place] furosemide Yes 40mg Take [address] (LASIX) 40 2-25 by mouth. Luke s - MG tablet 00:00: Medical 00 [place] potassium Yes 20meq Take [address] [facility] chloride SA 2-25 mEq by [facility] - (K-DUR,KLOR 00:00: mouth. Medi nicolas -CON) 20 00 Center MEQ tablet Vital Signs Vital Name Observation Time Observation Value Comments Source Oxygen saturation in 2020-03-22 12:32:00 96 /min [facility] - Arterial blood by Medical nter Pulse oximetry Systolic blood 2020-03-03 11:02:00 149 mm[Hg] [facility] pressure [facility] Diastolic blood 2020-03-03 11:02:00 78 mm[Hg] [facility] S t [facility] Heart rate 2020-03-03 11:02:00 80 /min [facility] Body weight 2020-03-03 11:02:00 91.491 kg [facility] Procedures Procedure Date / Time Performed Performing Clinician [facility] e VENOUS DOPPLER LEGS 2020-03-22 14:08:00 Candido Klein [facility] - BILATERAL [facility] SPIROMETRY 2020-03-22 11:30:[address] [facility] - [facility] Plan of Care Planned Activity Planned Date Details Comments Source Future Scheduled 2020-04-[address] [facility] - Test 00:00:00 (12+) [code = Medical Center DEPRESSION SCREENING (12+)] Future Scheduled 2019-12-02 INFLUENZA VACCINE (#1) [facility] - Test 00:00:00 [code = INFLUENZA Medical Ce nter VACCINE (#1)] Future Scheduled 2019-11-01 Medicare IPPE (WELCOME [facility] - Test 00:00:00 TO MEDICARE) [code = Medical Center Medicare IPPE (WELCOME TO MEDICARE)] Future Scheduled 2007 SHINGLES VACCINES ([address] [facility] - Test 00:00:00 of 2) [code = SHINGLES Medic al Center VACCINES (1 of 2)] Future Scheduled [address] [facility] - Test 00:00:00 (procedure) [code = Medical Center 40713327] Future Scheduled [address] [facility] - Test 00:00:00 malignant neoplasm of Medica l Center cervix (procedure) [code = 352093792] Future Scheduled 1976-01-31 DTAP/TDAP/TD VACCINES [facility] - Test 00:00:00 (1 - Tdap) [code = Medical C enter DTAP/TDAP/TD VACCINES (1 - Tdap)] Future Scheduled 1975 HEPATITIS C [facility]CREENING [facility] - Test 00:00:00 [code = HEPATITIS C Medical Center SCREENING] Future Scheduled [address] [facility] - Test 00:00:00 0-64 YRS (1 of 1 - Medical C enter PPSV23) [code = PNEUMOCOCCAL VACCINE 0-64 YRS (1 of 1 - PPSV23)] Future Scheduled [address] [facility] - Test 00:00:00 malignant neoplasm of Medica l Center breast (procedure) [code = 279281874] Future Scheduled [address] [facility] Test 00:00[facility]00 [facility] ([facility]) [code = 913135127] Encounters Start End Encounter Admission Attending Care Care Encounter Source Date/Time Date/Time Type Type Clinicians Facility Department ID 2020-06-09 2020-06-09 Patient BINH Penaloza [id number] 00:00:00 00:00:00 Outreach Jeremy PRIMARY [id number] [facility] [id number] MAGDY [id number] 2020-05-20 2020-05-20 Orders Doctor LUNA [id number] 00:00:00 00:00:00 Only Unassigned, LUCIAN [id number] [facility] [id number] 2020-02-17 2020-02-17 Outpatient GUILLERMO [facility] [id number] [place] 00:00:00 00:00:00 NANI [facility] i 2019-12-25 2019-12-25 Orders Doctor JEREMY [id number] 00:00:00 00:00:00 Only Unassigned, LUCIAN [id number] [facility] [id number] 2019-08-04 2019-08-04 Refill [facility] [id number] 00:00:00 00:00:00 Anna Marie Giordano [id number] [place] [id number] Professio [phone] [address] 2019-07-29 2019-07-29 Refill [facility] [id number] 00:00:00 00:00:00 Anna Marie Giordano [id number] [place] [id number] Professio [phone] [address] 2019-06-26 2019-06-26 Orders Doctor JEREMY [id number] 00:00:00 00:00:00 Only Unassigned, LUCIAN [id number] [place] [facility] [id number] 2019-05-27 2019-05-27 Office Ravinder, [facility] [id number] 09:24:52 10:34:57 Visit Anna Marie Giordano [id number] [place] [id number] Professio [phone] [address] 2019-01-08 2019-01-08 Office JOSH Gtz [id number] 14:16:47 17:54:57 Visit Esther Y AMBULATOR [id number] Y [id number] [id number] Results Test Description Test Time Test Comments Results Result [facility] e Comments Venous Doppler 2020-03-[address] [facility] Bilateral 15:26:01 [facility] ECHO - [facility] HEARTLAB [facility] CPACSRight Impression1. There is no deep venous obstruction [...] waveforms were phasic with respiration . Signature ------- ------- Velocities are measured in cm/s ; Diameters are measured in cm Interface, External Ris In - 03/23/2020 3:26 PM [facility] - Lower Extremities DVT Study Demographics Patient Name KAYLEE LORENZO Date of Study 03/22/2020 MIKALA Age 65 Visit Number [id number] Gender Female Accession Number [id number] Date of 1955 Referring Latoya Rey Linsey Room Number Physician Tip Finisher Kate Cisneros T Interpreting Physician RITA Rascon ProcedureType of Study: Veins: Lower Extremities DVT Study, VENOUS DOPPLER LEG, BILATERAL. Indications for Study:Mitral Regurgitation .Patient Status:Routine.Stud y Location:Vascular Lab.Technical Quality:Adequate visualization.Risk FactorsHistory of Disease+ ---+----+ ------+!Diagnosis !Date!Comments !+ +-- --+ +!History/Risk Factors: ! !Mitral valve regurg !+ +-- --+ +ImpressionsRight Impression1. There is no deep venous obstruction [...] waveforms were phasic with respiration . Signature ------- ------- Velocities are measured in cm/s ; Diameters are measured in cm Pulmonary Funct 2020-03-22 Mariah Carbajal [facility] Lab Spirometry 11:30:00 EDUCATOR SENIOR CLINICAL, ENTRY LEVEL JAVA DEVELOPER - Medical 03/22/2020 3:14 [facility] PFT CHARTING REPORT Infection Control/Hand Hygiene procedures followed throughout the encounter with patient: YesPatient Identification Method: Patient name verified on armband, and Medical record on armband, Is the order complete?: Yes Account ID#: [id number] Name: Kaylee Lorenzo Birthdate: 1955 Age: 65 [...] 96 % on RA Pain Assessment Pain:None TESTING/THERAPEUTIC S Medications ordered or required for procedure: N/A PT EDUCATION/INSTRUCTI ONS Barriers to learning: No known barriers to learning. Learning need identified: Yes, Patient/Family/Peg donohue was informed of the ordered study by the physician Barriers to performing study or treatment: Patient has no known disability to perform the study or treatment. DISCHARGE The study was completed in accordance with the physician's order and patient released from the lab without adverse outcome.
[2020-06-13 03:56] LABS: Absolute Lymphocytes (CBC) 2.1 K/uL (0.7-4.9); Basophils % 0.4 % (0-1.3); Hematocrit 37.5 % (36.0-45.0); Lymphocytes % 21.4 % (15.3-44.8); MPV 8.4 fL (7.6-11.3); RBC Red Blood Cell Count 3.93 M/uL (3.86-4.86)
[2020-06-13 04:07] LABS: Protime INR 1.39
[2020-06-13] MEDS ORDERED: METHYLPREDNISOLONE 125 MG INJ ONE (04:09)
[2020-06-13 04:18] LABS: ALT/SGPT 30 U/L (12-78); AST/SGOT 29 U/L (15-37); Albumin 3.9 g/dL (3.4-5.0); Alkaline Phosphatase 72 U/L (45-117); BUN Blood Urea Nitrogen 11 mg/dL (7-18); Bicarbonate 29 mmol/L (21-32); Bilirubin Direct 0.2 mg/dL (0-0.2); Bilirubin Total 0.5 mg/dL (0.2-1.0); Glucose Level 94 mg/dL (74-106); NT PRO-BNP 2915 pg/mL (<125); Potassium 3.5 mmol/L (3.5-5.1); Protein, Total 7.6 g/dL (6.4-8.2); Sodium Level 141 mmol/L (136-145); Troponin (Emerg Dept Use Only) < 0.02 ng/mL (0.0-0.045)
[2020-06-13] MEDS ORDERED: FUROSEMIDE 40 MG/4 ML VIAL ONE ×2 (04:57→08:42)
[2020-06-13] MEDS ORDERED: FUROSEMIDE 20 MG/ 2ML VIAL ONE (04:57)
[2020-06-13] MEDS ORDERED: LEVALBUTEROL 1.25 MG/3 ML NEB ONE (04:57)
[2020-06-13 05:12] LABS: SARS-COV-2 RT PCR NEGATIVE (NEGATIVE)
--- NOTE | 2020-06-13 06:02 | ER ---
Nurse's Notes [facility] [place] Name: Celsa Lorenzo Age: 65 yrs Sex: Female : 1955 Arrival Date: 06/13/2020 Time: 03:13 Bed 18 Private MD: Diagnosis: Unspecified combined systolic (congestive) and diastolic (congestive) heart failure;Pulmonary edema;Chronic obstructive pulmonary disease, unspecified Presentation: 06/13 03:30 Chief complaint: Patient states: I have been on a heart valve replacement surgery list. jb4 I have been short of breath for the past 2 days and it has been progressively getting worse. tonight it all of a sudden got worse about 4 hours ago. 03:30 Coronavirus screen: Client denies travel out of the [place] in the last 14 days. Ebola jb4 Screen: No symptoms or risks identified at this time. Initial Sepsis Screen: Does the patient meet any 2 criteria? RR > 20 per min. Yes Does the patient have a suspected source of infection? No. Patient's initial sepsis screen is negative. Risk Assessment: Do you want to hurt yourself or someone else? Patient reports no desire to harm self or others. Onset of symptoms was June 13, 2020. Transition of care: patient was not received from another setting of care. 03:30 Method Of Arrival: Ambulatory jb4 03:30 Acuity: MAXIMO 3 jb4 Historical: - Allergies: 03:30 Betadine; jb4 03:30 Iodine; Topical only; jb4 - Home Meds: 03:30 digoxin 125 mcg Oral tab 1 tab once daily [Active]; Eliquis 5 mg Oral tab 1 tab 2 times jb4 per day [Active]; KCL 20 mEq daily [Active]; Lasix 40 mg Oral tab 20mg at night [Active]; meloxicam 15 mg Oral tab 1 tab once daily [Active]; sotalol 120 mg Oral tab 1 tab 2 times per day [Active]; Wellbutrin 150mg Oral 1 tab daily [Active]; Xeljanz Oral [Active]; Zoloft 50 mg Oral tab 1 tab once daily [Active]; - PMHx: 03:30 ADD/ADHD; Atrial Fib; cardioversion; CHF; COPD; Hypertension; mitral valve stenosis; jb4 pulmonary HTN; resp failure; Rheumatoid Arthritis; - PSHx: 03:30 Appendectomy; Tubal ligation; jb4 - Immunization history:: Adult Immunizations not up to date. - Social history:: Smoking status: Patient denies any tobacco usage or history of. Patient/guardian denies using alcohol, street drugs. - Family history:: not pertinent. - Hospitalizations: : No recent hospitalization is reported. Screenin:30 Abuse screen: Denies threats or abuse. Nutritional screening: No deficits noted. jb4 Tuberculosis screening: No symptoms or risk factors identified. Fall Risk None identified. Assessment: 03:30 General: Appears distressed, uncomfortable, Behavior is calm, cooperative, appropriate jb4 for age. Pain: Denies pain. Neuro: Level of Consciousness is awake, alert, obeys commands, Oriented to person, place, time, situation. Cardiovascular: Patient's skin is warm and dry. Respiratory: Airway is patent Respiratory effort is even, labored, Respiratory pattern is symmetrical, tachypnea. GI: No signs and/or symptoms were reported involving the gastrointestinal system. : No signs and/or symptoms were reported regarding the genitourinary system. EENT: No signs and/or symptoms were reported regarding the EENT system. Derm: Skin is intact, Skin is pink, warm \T\ dry. Musculoskeletal: Circulation, motion, and sensation intact. Range of motion: intact in all extremities. 04:30 Reassessment: Patient appears in no apparent distress at this time. Patient and/or jb4 family updated on plan of care and expected duration. Pain level reassessed. Patient is alert, oriented x 3, equal unlabored respirations, skin warm/dry/pink. PT remains on Bi-pap Patient states feeling better. Patient states symptoms have improved. 05:28 Reassessment: Patient appears in no apparent distress at this time. Patient and/or jb4 family updated on plan of care and expected duration. Pain level reassessed. Patient is alert, oriented x 3, equal unlabored respirations, skin warm/dry/pink. 06:09 Reassessment: Patient appears in no apparent distress at this time. Patient and/or jb4 family updated on plan of care and expected duration. Pain level reassessed. Patient is alert, oriented x 3, equal unlabored respirations, skin warm/dry/pink. Pt admitted to ER hold Patient states feeling better. Vital Signs: 03:30 BP 130 / 109; Pulse 65; Resp 18; Pulse Ox 98% on 40% BiPAP; Weight 90.72 kg (R); Height jb4 5 ft. 9 in. (175.26 cm); Pain 0/10; 04:30 BP 154 / 96; Pulse 76; Resp 18; Pulse Ox 100% on 40% BiPAP; jb4 03:30 Body Mass Index 29.53 (90.72 kg, 175.26 cm) jb4 ED Course: 03:13 Patient arrived in ED. cl3 03:30 Arm band placed on right wrist. jb4 03:30 Patient has correct armband on for positive identification. Bed in low position. Call jb4 light in reach. Side rails up X 1. display designer outside on. Pulse ox on. NIBP on. 03:31 Geovany Barksdale MD is Attending Physician. rn 03:40 Inserted saline lock: 20 gauge in right forearm, using aseptic technique. Blood rv collected. 03:40 Initial lab(s) drawn, by me, sent to lab. First set of blood cultures drawn by me. rv 03:49 Simone Jacob, RN is Primary Nurse. jb4 03:59 BIPAP Sent. mw2 04:17 Triage completed. jb4 04:37 XRAY CXR (1 view) In Process Unspecified. EDMS 06:00 No provider procedures requiring assistance completed. Patient admitted, IV remains in jb4 place. 06:01 Lasha Fall MD is Hospitalizing Provider. rn 07:32 Primary Nurse role handed off by Simone Jacob RN bd 11:38 Shae Heredia, EDWINA is Primary Nurse. bw Administered Medications: 04:01 Drug: SOLU-Medrol 125 mg Route: IVP; Site: right antecubital; jb4 05:05 Drug: Xopenex (3) 1.25 mg Route: Inhalation; jb4 05:08 Drug: Lasix 60 mg Route: IVP; Site: right antecubital; jb4 Outcome: 06:01 Decision to Hospitalize by Provider. rn 06:09 Admitted to ER Hold. Please see [facility] for further documentation. jb4 06:09 Condition: stable 06:09 Discharge instructions given to patient, Instructed on the need for admit, Demonstrated understanding of instructions. 17:41 Patient left the ED. bw Signatures: Dispatcher [employer] EDMS Jayde Chanara bd Barksdale, Geovany, MD MD rn Cecil, Simone, RN RN jb4 Willy Ochoa mw2 Ernesto Rangel RN RN Jeanne Carr cl3 Shae Heredia RN RN Corrections: (The following items were deleted from the chart) 07:01 06:09 Reassessment: Patient appears in no apparent distress at this time. Patient jb4 and/or family updated on plan of care and expected duration. Pain level reassessed. Patient is alert, oriented x 3, equal unlabored respirations, skin warm/dry/pink. Patient states feeling better. jb4
--- NOTE | 2020-06-13 06:02 | EDPHYS ---
Physician Documentation [facility] Name: Celsa Lorenzo Age: 65 yrs Sex: Female : 1955 Arrival Date: 06/13/2020 Time: 03:13 Bed 18 Private MD: ED Physician Geovany Barksdale HPI: 06/13 05:04 This 65 yrs old Female presents to ER via Ambulatory with complaints of rn Breathing Difficulty, Heart Racing. 05:04 The patient has shortness of breath with light activity. Onset: The symptoms/episode rn began/occurred 4 day(s) ago. Duration: The symptoms are intermittent. The patient's shortness of breath is aggravated by light activity, supine position, talking, walking. Associated signs and symptoms: Pertinent positives: non-productive cough, Pertinent negatives: diaphoresis, fever, hemoptysis. Severity of symptoms: At their worst the symptoms were moderate in the emergency department the symptoms are unchanged. The patient has experienced similar episodes in the past. The patient has not recently seen a physician. Historical: - Allergies: 03:30 Betadine; jb4 03:30 Iodine; Topical only; jb4 - Home Meds: 03:30 digoxin 125 mcg Oral tab 1 tab once daily [Active]; Eliquis 5 mg Oral tab 1 tab 2 times jb4 per day [Active]; KCL 20 mEq daily [Active]; Lasix 40 mg Oral tab 20mg at night [Active]; meloxicam 15 mg Oral tab 1 tab once daily [Active]; sotalol 120 mg Oral tab 1 tab 2 times per day [Active]; Wellbutrin 150mg Oral 1 tab daily [Active]; Xeljanz Oral [Active]; Zoloft 50 mg Oral tab 1 tab once daily [Active]; - PMHx: 03:30 ADD/ADHD; Atrial Fib; cardioversion; CHF; COPD; Hypertension; mitral valve stenosis; jb4 pulmonary HTN; resp failure; Rheumatoid Arthritis; - PSHx: 03:30 Appendectomy; Tubal ligation; jb4 - Immunization history:: Adult Immunizations not up to date. - Social history:: Smoking status: Patient denies any tobacco usage or history of. Patient/guardian denies using alcohol, street drugs. - Family history:: not pertinent. - Hospitalizations: : No recent hospitalization is reported. ROS: 05:04 Constitutional: Negative for fever, chills, and weight loss, Eyes: Negative for injury, rn pain, redness, and discharge, Neck: Negative for injury, pain, and swelling, Cardiovascular: + edema, neg for chest pain Respiratory: + cough and sob Abdomen/GI: Negative for abdominal pain, nausea, vomiting, diarrhea, and constipation, MS/Extremity: Negative for injury and deformity, Skin: Negative for injury, rash, and discoloration, Neuro: Negative for headache, weakness, numbness, tingling, and seizure. 05:04 All other systems are negative. Exam: 05:04 Constitutional: This is a well developed, well nourished patient who is awake, alert, rn moderate resp distress Head/Face: Normocephalic, atraumatic. ENT: dry MM, no stridor Cardiovascular: Irregular rhythm, regular rate Respiratory: + moderate tachypnea, faint wheezing bilaterally, diminished at bases Abdomen/GI: soft, non-tender Skin: Warm, dry MS/ Extremity: Pulses equal, no cyanosis. Mild edema bilateral lower ext, no calf tenderness. Neuro: Awake and alert, GCS 15 Vital Signs: 03:30 BP 130 / 109; Pulse 65; Resp 18; Pulse Ox 98% on 40% BiPAP; Weight 90.72 kg (R); Height jb4 5 ft. 9 in. (175.26 cm); Pain 0/10; 04:30 BP 154 / 96; Pulse 76; Resp 18; Pulse Ox 100% on 40% BiPAP; jb4 03:30 Body Mass Index 29.53 (90.72 kg, 175.26 cm) jb4 MDM: 03:31 Patient medically screened. rn 06:00 Differential diagnosis: CHF exacerbation, Chronic Obstructive Pulmonary Disease rn Myocardial Infarction pneumonia, Pneumothorax pulmonary edema. Data reviewed: vital signs, nurses notes, lab test result(s), EKG, radiologic studies, plain films, and as a result, I will admit patient. Counseling: I had a detailed discussion with the patient and/or guardian regarding: the historical points, exam findings, and any diagnostic results supporting the discharge/admit diagnosis, lab results, radiology results, the need for further work-up and treatment in the hospital. Response to treatment: the patient's symptoms have markedly improved after treatment, and as a result, I will admit patient. Admission orders: after a detailed discussion of the patient's condition and case, the admit orders are written by me. ED course: Pt markedly improved, will attempt to wean off bipap now, and admit to Dr. Fall for CHF exacerbation. COVID neg. No signs of infection.. 06:50 ED course: Notified Dr. Fall of admission, weaning off bipap. . rn 06/13 03:38 Order name: Hepatic Function rn 06/13 03:38 Order name: Blood Culture Adult (2) rn 06/13 03:38 Order name: BMP; Complete Time: 04:27 rn 06/13 03:38 Order name: CBC with Diff; Complete Time: 04:27 rn 06/13 03:38 Order name: NT PRO-BNP; Complete Time: 04:27 rn 06/13 03:38 Order name: PT-INR; Complete Time: 04:27 rn 06/13 03:38 Order name: Ptt, Activated; Complete Time: 04:27 rn 06/13 03:38 Order name: Troponin (emerg Dept Use Only); Complete Time: 04:27 rn 06/13 03:38 Order name: Liver (Hepatic) Function; Complete Time: 04:27 EDMS 06/13 05:12 Order name: COVID-19/FLU A+B; Complete Time: 05:41 EDMS 06/13 10:33 Order name: Troponin I EDOR 06/13 14:43 Order name: Troponin I [facility] 06/13 03:38 Order name: XRAY CXR (1 view) rn 06/13 03:38 Order name: EKG; Complete Time: 03:39 rn 06/13 03:38 Order name: Cardiac monitoring; Complete Time: 03:59 rn 06/13 03:38 Order name: EKG - Nurse/Tech; Complete Time: 03:59 rn 06/13 03:38 Order name: IV Saline Lock; Complete Time: 03:59 rn 06/13 03:38 Order name: Labs collected and sent; Complete Time: 03:59 rn 06/13 03:38 Order name: O2 Per Protocol; Complete Time: 03:59 rn 06/13 03:38 Order name: O2 Sat Monitoring; Complete Time: 03:59 rn 06/13 03:40 Order name: BIPAP rn Administered Medications: 04:01 Drug: SOLU-Medrol 125 mg Route: IVP; Site: right antecubital; jb4 05:05 Drug: Xopenex (3) 1.25 mg Route: Inhalation; jb4 05:08 Drug: Lasix 60 mg Route: IVP; Site: right antecubital; jb4 Disposition: 06:00 Critical Care:. rn Disposition: 06/13/20 06:01 Hospitalization ordered by Lasha Fall for Inpatient Admission. Preliminary diagnosis are Unspecified combined systolic (congestive) and diastolic (congestive) heart failure, Pulmonary edema, Chronic obstructive pulmonary disease, unspecified. - Bed requested for Telemetry/MedSurg (Inpatient). - Status is Inpatient Admission. bw - Condition is Stable. - Problem is an acute exacerbation. - Symptoms have improved. Critical care time excluding procedures: 06:00 Critical care time: Bedside Care: 25 minutes, Family Intervention: 5 minutes. Total rn time: 30 minutes Signatures: Dispatcher [employer] EDOR Jamila Heredia RN RN mw Woody, Diana, RN RN dw Nieto, Roman, MD MD rn Bryson, James, RN RN jb4 Webb, Bethany, RN RN Corrections: (The following items were deleted from the chart) 04:28 03:40 CORONAVIRUS+MR.LAB.BRZ ordered. EDOR EDMS 04:28 03:40 Influenza Screen (A \T\ B)+BA.LAB.BRZ ordered. EDOR EDMS 05:08 05:04 Constitutional: This is a well developed, well nourished patient who is awake, rn alert, moderate resp distress Head/Face: Normocephalic, atraumatic. ENT: dry MM, no stridor Cardiovascular: Irregular rhythm, regular rate Respiratory: + moderate tachypnea, faint wheezing bilaterally, diminished at bases Abdomen/GI: soft, non-tender Skin: Warm, dry MS/ Extremity: Pulses equal, no cyanosis. Neuro: Awake and alert, GCS 15 rn 06:06 06:01 Hospitalization Ordered by Lasha Fall MD for Inpatient Admission. Preliminary mw diagnosis is Unspecified combined systolic (congestive) and diastolic (congestive) heart failure; Pulmonary edema; Chronic obstructive pulmonary disease, unspecified. Bed requested for Telemetry/MedSurg (Inpatient). Status is Inpatient Admission. Condition is Stable. Problem is an acute exacerbation. Symptoms have improved. rn 16:22 06:06 06/13/2020 06:01 Hospitalization Ordered by Lasha aFll MD for Inpatient dw Admission. Preliminary diagnosis is Unspecified combined systolic (congestive) and diastolic (congestive) heart failure; Pulmonary edema; Chronic obstructive pulmonary disease, unspecified. Bed requested for [facility] ER HOLD. Status is Inpatient Admission. Condition is Stable. Problem is an acute exacerbation. Symptoms have improved. mw 17:41 16:22 06/13/2020 06:01 Hospitalization Ordered by Lasha Fall MD for Inpatient bw Admission. Preliminary diagnosis is Unspecified combined systolic (congestive) and diastolic (congestive) heart failure; Pulmonary edema; Chronic obstructive pulmonary disease, unspecified. Bed requested for Telemetry/MedSurg (Inpatient). Status is Inpatient Admission. Condition is Stable. Problem is an acute exacerbation. Symptoms have improved. dw
[2020-06-13] MEDS ORDERED: IPRATROPIUM BROM 0.5MG/2.5ML NEB PRN (06:57)
[2020-06-13] MEDS ORDERED: ONDANSETRON 4 MG/2 ML VIAL IV PRN (06:57)
[2020-06-13] MEDS ORDERED: ALBUTEROL 2.5 MG/3 ML NEB SOL NEB PRN (06:57)
[2020-06-13 07:03] VITALS: BMI 29.5
[2020-06-13] MEDS: FUROSEMIDE 40 MG/4 ML VIAL IV SCH ×2 (09:00→17:00)
--- NOTE | 2020-06-13 10:21 | EKG ---
Test Date: 2020-06-13 Test Time: 03:49:37 Geospatial Systems Integrator: ZACHARIAH MEASUREMENT RESULTS: Intervals: Rate: 77 HI: QRSD: 80 QT: 418 QTc: 473 [place]: P: HI: QRS: 78 T: 134 INTERPRETIVE STATEMENTS: Atrial fibrillation ST & T wave abnormality, consider lateral ischemia or digitalis effect Prolonged QT Abnormal ECG Compared to ECG 03/28/2020 13:52:35 Possible ischemia now present ST (T wave) deviation still present Electronically Signed On 06-13-20 10:21:10 CDT by Dilip Ash
--- NOTE | 2020-06-13 11:05 | P.HP ---
Certification for Inpatient Patient admitted to: Inpatient With expected LOS: >2 Midnights Patient will require the following post-hospital care: None Practitioner: I am a practitioner with admitting privileges, knowledge of patient current condition, hospital course, and medical plan of care. Services: Services provided to patient in accordance with Admission requirements found in Title 42 Section 412.3 of the Code of Federal Regulations Patient History Date of Service: 06/13/20 Primary Care Provider: Juan David Reason for admission: Chf exacerbation History of Present Illness: Patient is a new patient to my service. PMH of CHF, atrial fib, copd, Rheumatoid arthritis, mitral and aortic valvular disease. She has pulmonary h tn. Most likely secondary to her valve disease. The patient has been having shortness of breath and swelling of her lower legs for the past four days. She has gotten progressively worse. Eventually came to the ER. She was found to have an elevated bnp. She had swollen legs. The patient came to the ER. Was given lasix and is doing better. She is currently off the bipap. Allergies iodine Allergy (Verified 04/20/17 21:14) Unknown Home Medications: Albuterol Sulfate [Proair Hfa] 8.5 gm IH TID PRN #90 hfa.aer.[email or web address] 04/25/17 Bupropion HCl [Wellbutrin] 150 mg PO DAILY 06/25/17 Digoxin [Lanoxin] 125 mcg PO DAILY 06/25/17 Fluticasone/Salmeterol [Airduo Respiclick 113-14 Mcg] 1 each IH BID PRN 06/25/17 Sertraline [Zoloft*] 50 mg PO DAILY 06/25/17 Sotalol HCl [Betapace*] 120 mg PO BID 06/25/17 Tofacitinib Citrate [Xeljanz Xr] 11 mg PO DAILY 06/25/17 Apixaban [Eliquis *] 5 mg PO BID 07/29/18 Melatonin 10 mg PO BEDTIME PRN 07/29/18 predniSONE [Prednisone*] 2.5 mg PO SEECOM 07/29/18 Furosemide [Lasix*] 40 mg PO BID #60 tab 07/30/18 - Past Medical/Surgical History Diabetic: No -: Chronic atrial fibrillation, chronic anti coagulation therapy -: Rheumatoid arthritis -: Hypertension -: Systolic CHF -: Mitral valve stenosis -: COPD -: Former tobacco use -: resp failure -: tonsillectomy -: c- section -: appendectomy -: tubal ligation Psychosocial/ Personal History: Patient is - Family History Mother -: Cancer, Other (see notes) Notes: M.S Father -: Heart disease, Cancer, Other (see notes) Notes: DVT's - Social History Smoking Status: Never smoker Alcohol use: No CD- Drugs: No Caffeine use: Yes Place of Residence: Home Review of Systems 10-point ROS is otherwise unremarkable Respiratory: Shortness of Breath Cardiovascular: Unremarkable (chest pressure) Physical Examination - Vital Signs Temperature: 98.1 F Blood Pressure: 157/69 Pulse: 79 Respirations: 25 Pulse Ox (%): 95 - Physical Exam General: Alert, In no apparent distress HEENT: Atraumatic, PERRLA, Mucous membr. moist/pink, EOMI, Sclerae nonicteric Neck: Supple, 2+ carotid pulse no bruit, No LAD, Without JVD or thyroid abnormality Respiratory: Clear to auscultation bilaterally, Normal air movement Cardiovascular: Irregular heart rate/rhythm, Abnormal S1 S2 (loud s1 in the aortic area.) Gastrointestinal: Normal bowel sounds, No tenderness Musculoskeletal: No tenderness Integumentary: No rashes Neurological: Normal gait, Normal speech, Normal strength at 5/5 x4 extr, Normal tone, Normal affect Lymphatics: No axilla or inguinal lymphadenopathy - Studies Laboratory Data (last 24 hrs) 06/13/20 03:40: PT 16.0 H, INR 1.39, APTT 35.8 06/13/20 03:40: WBC 10.00, Hgb 12.3, Hct 37.5, Plt Count 244 06/13/20 03:40: Sodium 141, Potassium 3.5, BUN 11, Creatinine 0.70, Glucose 94, Total Bilirubin 0.5, AST 29, ALT 30, Alkaline Phosphatase 72 Assessment and Plan - Problems (Diagnosis) (1) Acute CHF (congestive heart failure) Current Visit: Yes Status: Acute Plan: She has an echocardiogram from 2 years ago. Which showed a peserved ejection fraction. Will consult Dr. Ash who has seen her in the past. Qualifiers: Heart failure type: unspecified Qualified Code(s): I50.9 - Heart failure, unspecified (2) Atrial fibrillation Onset Date: 06/25/17 Current Visit: No Status: Chronic Plan: currently rate controlled. Will continue her current medications. Qualifiers: Atrial fibrillation type: paroxysmal Qualified Code(s): I48.0 - Paroxysmal atrial fibrillation (3) COPD (chronic obstructive pulmonary disease) Onset Date: 06/25/17 Current Visit: No Status: Chronic Plan: stable. The patient can continue her current inhalers. Qualifiers: COPD type: COPD with acute exacerbation Qualified Code(s): J44.1 - Chronic obstructive pulmonary disease with (acute) exacerbation (4) HTN (hypertension) Onset Date: 04/23/17 Current Visit: No Status: Chronic Plan: well controlled. Will monitor her bp and adjust as necessary. Qualifiers: Hypertension type: essential hypertension Qualified Code(s): I10 - Essential (primary) hypertension (5) Mitral stenosis Current Visit: No Status: Chronic Plan: Patient has been worsening. She has been looking for a surgeon. Dr. Tirana does do repairs. Hopefully we can get him to see her. She also has some mitral disease. 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
[2020-06-13] MEDS ORDERED: AIRDUO IH PRN (11:15)
[2020-06-13] MEDS ORDERED: HOME MED 1 EA UNK (Melatonin [Melatonin] 10 MG Capsule) PO PRN (11:15)
[2020-06-13] MEDS ORDERED: ALBUTEROL INHALER IH PRN (11:15)
[2020-06-13] MEDS ORDERED: predniSONE 5 MG TAB PO SCH (12:00)
[2020-06-13] MEDS ORDERED: HYDRALAZINE HCL 20 MG/ML VIAL IV PRN (14:24)
[2020-06-13] MEDS ORDERED: ACETAMINOPHEN 500 MG TAB PO PRN (14:26)
[2020-06-13] MEDS: SOTALOL HCL 80 MG TAB PO SCH (20:35)
[2020-06-13] MEDS: APIXABAN 2.5 MG TABLET PO SCH (20:35)
[2020-06-13] MEDS ORDERED: FUROSEMIDE 40 MG TABLET PO SCH (21:00)
[2020-06-13] MEDS: MELATONIN 5 MG TABLET PO PRN (22:27)
[2020-06-14 05:35] LABS: Basophils % 0.1 % (0-1.3); Hematocrit 37.7 % (36.0-45.0); Lymphocytes % 6.9 % (15.3-44.8); RBC Red Blood Cell Count 3.95 M/uL (3.86-4.86)
[2020-06-14 05:47] LABS: Potassium 3.6 mmol/L (3.5-5.1)
[2020-06-14] MEDS ORDERED: XELJANZ XR 11 MG PO SCH (09:00)
[2020-06-14] MEDS ORDERED: HOME MED 1 EA UNK (Bupropion Hcl [Wellbutrin] 75 MG Tablet) PO SCH (09:00)
[2020-06-14] MEDS: SOTALOL HCL 80 MG TAB PO SCH ×2 (09:17→20:07)
[2020-06-14] MEDS: APIXABAN 2.5 MG TABLET PO SCH ×2 (09:18→20:08)
[2020-06-14] MEDS: FUROSEMIDE 40 MG TABLET PO SCH ×2 (09:18→17:23)
[2020-06-14] MEDS: SERTRALINE HCL 50 MG TAB PO SCH (09:18)
[2020-06-14] MEDS: DIGOXIN 0.125 MG TABLET PO SCH (09:18)
--- NOTE | 2020-06-14 14:40 | P.PN ---
Subjective Date of Service: 06/14/20 Primary Care Provider: Juan David Chief Complaint: Chf exacerbation Subjective: Improving Review of Systems 10-point ROS is otherwise unremarkable Physical Examination - Vital Signs Temperature: 97.2 F Blood Pressure: 135/71 Pulse: 74 Respirations: 18 Pulse Ox (%): 95 - Physical Exam General: Alert, In no apparent distress HEENT: Atraumatic, PERRLA, EOMI Neck: Supple, JVD not distended Respiratory: Clear to auscultation bilaterally, Normal air movement Cardiovascular: Regular rate/rhythm, Normal S1 S2 Gastrointestinal: Normal bowel sounds, No tenderness Musculoskeletal: No tenderness Integumentary: No rashes Neurological: Normal speech, Normal tone, Normal affect Lymphatics: No axilla or inguinal lymphadenopathy Assessment & Plan - Problems (Diagnosis) (1) Acute CHF (congestive heart failure) Current Visit: Yes Status: Acute Plan: She has an echocardiogram from 2 years ago. Which showed a peserved ejection fraction. Will consult Dr. Ash who has seen her in the past. 06/14 Patient is doing better. She had her echocardiogram. Awaiting cardiology consult Qualifiers: Heart failure type: unspecified Qualified Code(s): I50.9 - Heart failure, unspecified (2) Atrial fibrillation Onset Date: 06/25/17 Current Visit: No Status: Chronic Plan: currently rate controlled. Will continue her current medications. Qualifiers: Atrial fibrillation type: paroxysmal Qualified Code(s): I48.0 - Paroxysmal atrial fibrillation (3) COPD (chronic obstructive pulmonary disease) Onset Date: 06/25/17 Current Visit: No Status: Chronic Plan: stable. The patient can continue her current inhalers. Qualifiers: COPD type: COPD with acute exacerbation Qualified Code(s): J44.1 - Chronic obstructive pulmonary disease with (acute) exacerbation (4) HTN (hypertension) Onset Date: 04/23/17 Current Visit: No Status: Chronic Plan: well controlled. Will monitor her bp and adjust as necessary. Qualifiers: Hypertension type: essential hypertension Qualified Code(s): I10 - Essential (primary) hypertension (5) Mitral stenosis Current Visit: No Status: Chronic Plan: Patient has been worsening. She has been looking for a surgeon. Dr. Triana does do repairs. Hopefully we can get him to see her. She also has some mitral disease. Will check an echocardiogram 06/14. Have spoken with Dr. Triana. He will see if she is a patient he can help with her valve disease. Qualifiers: Cardiac valve disease etiology: rheumatic Qualified Code(s): I05.0 - Rheumatic mitral stenosis Discharge Plan: Home - Code Status/Comfort Care Code Status Assessed: No Critical Care: No Time Spent Managing Pts Care (In Minutes): 20
--- NOTE | 2020-06-14 16:30 | RAD REPORT ---
EXAM DESCRIPTION: RAD - Chest Single View - 06/13/2020 4:37 am CLINICAL HISTORY: The patient is 65 years old and is Female; DYSPNEA TECHNIQUE: Single portable upright view of the chest. COMPARISON: March 28, 2020. FINDINGS: Limitations: Evaluation limited by portable technique and body habitus. Lungs: Unremarkable. No consolidation. Pleural space: Unremarkable. No pneumothorax. Heart: Cardiomegaly. Mediastinum: Unremarkable. Bones/joints: No acute fracture visualized. Upper abdomen: No free air in the visualized upper abdomen. IMPRESSION: 1. No acute cardiopulmonary process identified. 2. Cardiomegaly. Electronically signed by: Flori Farrell MD 06/13/2020 6:08 AM CDT Due to temporary technical issues with the PACS/Fluency reporting system, reports are being signed by the in house radiologists without review as a courtesy to insure prompt reporting. The interpreting radiologist is fully responsible for the content of the report.
[2020-06-14 21:56] VITALS: O2SAT 94
[2020-06-14] MEDS: MELATONIN 5 MG TABLET PO PRN (23:23)
[2020-06-15] MEDS: SERTRALINE HCL 50 MG TAB PO SCH (07:42)
[2020-06-15] MEDS: SOTALOL HCL 80 MG TAB PO SCH (07:42)
[2020-06-15] MEDS: DIGOXIN 0.125 MG TABLET PO SCH (07:42)
[2020-06-15] MEDS: FUROSEMIDE 40 MG TABLET PO SCH (07:43)
[2020-06-15] MEDS: APIXABAN 2.5 MG TABLET PO SCH (07:43)
[2020-06-15 09:27] VITALS: BP 134/83; TEMP 97.8
--- NOTE | 2020-06-15 10:06 | ECHO ---
HEIGHT: 5 ft 9 in WEIGHT: 200 lb 0.054 oz DATE OF STUDY: 06/14/[address]: Lasha Fall MD 2-DIMENSIONAL: YES M.MODE: YES DOPPLER: YES COLOR FLOW: YES TDS: PORTABLE: DEFINITY: BUBBLE STUDY: DIAGNOSIS: ACUTE CONGESTIVE HEART FAILURE CARDIAC HISTORY: CATHERIZATION: NO SURGERY: NO PROSTHETIC VALVE: NO PACEMAKER: NO MEASUREMENTS (cm) DIASTOLIC (NORMALS) SYSTOLIC (NORMALS) IVSd 0.9 (0.6-1.2) LA Diam 6.5 (1.9-4.0) LVEF 56% LVIDd 4.5 (3.5-5.7) LVIDs 3.2 (2.0-3.5) %FS 29% LVPWd 1.4 (0.6-1.2) Ao Diam 2.6 (2.0-3.7) 2 DIMENSIONAL ASSESSMENT: RIGHT ATRIUM: NORMAL LEFT ATRIUM: ENLARGED RIGHT VENTRICLE: NORMAL LEFT VENTRICLE: NORMAL TRICUSPID VALVE: SEVERE TRICUSPID REGURGUTATION MITRAL VALVE: MILD MITRAL REGURGITATION, MILD MITRAL STENOSIS PULMONIC VALVE: NORMAL AORTIC VALVE: NORMAL PERICARDIAL EFFUSION: NONE AORTIC ROOT: NORMAL LEFT VENTRICULAR WALL MOTION: NORMAL DOPPLER/COLOR FLOW: SEE BELOW COMMENTS: NORMAL LEFT VENTRICULAR EJECTION FRACTION 55-60% WITH NORMAL WALL MOTION. SEVERE LEFT ATRIAL ENLARGEMENT. MODERATE MITRAL STENOSIS, MILD MITRAL REGURGITATION. SEVERE TRICUSPID REGURGITATION. TECHNOLOGIST: ROLAND ROME
--- NOTE | 2020-06-15 12:30 | P.DS ---
Admission Date: 06/13/20 Discharge Date: 06/15/20 Primary Care Provider: Juan David Disposition: ROUTINE DISCHARGE Discharge Condition: GOOD Reason for Admission: Chf exacerbation - Problems (1) Acute CHF (congestive heart failure) Status: Acute Qualifiers: Heart failure type: unspecified Qualified Code(s): I50.9 - Heart failure, unspecified (2) Atrial fibrillation Onset Date: 06/25/17 Status: Chronic Qualifiers: Atrial fibrillation type: paroxysmal Qualified Code(s): I48.0 - Paroxysmal atrial fibrillation (3) COPD (chronic obstructive pulmonary disease) Onset Date: 06/25/17 Status: Chronic Qualifiers: COPD type: COPD with acute exacerbation Qualified Code(s): J44.1 - Chronic obstructive pulmonary disease with (acute) exacerbation (4) HTN (hypertension) Onset Date: 04/23/17 Status: Chronic Qualifiers: Hypertension type: essential hypertension Qualified Code(s): I10 - Essential (primary) hypertension (5) Mitral stenosis Status: Chronic Qualifiers: Cardiac valve disease etiology: rheumatic Qualified Code(s): I05.0 - Rheumatic mitral stenosis Brief History of Present Illness: Patient is a new patient to my service. PMH of CHF, atrial fib, copd, Rheumatoid arthritis, mitral and aortic valvular disease. She has pulmonary htn. Most likely secondary to her valve disease. The patient has been having shortness of breath and swelling of her lower legs for the past four days. She has gotten progressively worse. Eventually came to the ER. She was found to have an elevated bnp. She had swollen legs. The patient came to the ER. Was given lasix and is doing better. She is currently off the bipap. Hospital Course: Patient was admitted. Did well with diuresis. Had an echocardiogram. Will discharger her home today Have the patient follow up with me in a week. Will have her follow up with Dr. Ash as well. Disccussed her valve disease with Dr. Triana Vital Signs/Physical Exam: Temp Pulse Resp BP Pulse Ox 97.8 F 73 18 134/83 96 06/15/20 08:00 06/15/20 08:00 06/15/20 08:00 06/15/20 08:00 06/15/20 08:00 General: Alert, In no apparent distress HEENT: Atraumatic, PERRLA, EOMI Neck: Supple, JVD not distended Respiratory: Clear to auscultation bilaterally, Normal air movement Cardiovascular: Regular rate/rhythm, Normal S1 S2 Gastrointestinal: Normal bowel sounds, No tenderness Musculoskeletal: No tenderness Integumentary: No rashes Neurological: Normal speech, Normal tone, Normal affect Lymphatics: No axilla or inguinal lymphadenopathy Laboratory Data at Discharge: WBC 14.80 K/uL (4.3-10.9) H D 06/14/20 05:15 Hgb 12.3 g/dL (12.0-15.0) 06/14/20 05:15 Hct 37.7 % (36.0-45.0) 06/14/20 05:15 Plt Count 250 K/uL (152-406) 06/14/20 05:15 PT 16.0 SECONDS (9.5-12.5) H 06/13/20 03:40 INR 1.39 06/13/20 03:40 APTT 35.8 SECONDS (24.3-36.9) 06/13/20 03:40 Sodium 141 mmol/L (136-145) 06/14/20 05:15 Potassium 3.6 mmol/L (3.5-5.1) 06/14/20 05:15 BUN 17 mg/dL (7-18) 06/14/20 05:15 Creatinine 0.84 mg/dL (0.55-1.3) 06/14/20 05:15 Glucose 125 mg/dL (74-106) H 06/14/20 05:15 Total Bilirubin 0.5 mg/dL (0.2-1.0) 06/13/20 03:40 AST 29 U/L (15-37) 06/13/20 03:40 ALT 30 U/L (12-78) 06/13/20 03:40 Alkaline Phosphatase 72 U/L (45-117) 06/13/20 03:40 Troponin I < 0.02 ng/mL (0.0-0.045) 06/13/20 14:20 Home Medications: Albuterol Sulfate [Proair Hfa] 8.5 gm IH TID PRN #90 hfa.aer.ad 04/25/17 Bupropion HCl [Wellbutrin] 150 mg PO DAILY 06/25/17 Digoxin [Lanoxin] 125 mcg PO DAILY 06/25/17 Fluticasone/Salmeterol [Airduo Respiclick 113-14 Mcg] 1 each IH BID PRN 06/25/17 Sertraline [Zoloft*] 50 mg PO DAILY 06/25/17 Sotalol HCl [Betapace*] 120 mg PO BID 06/25/17 Tofacitinib Citrate [Xeljanz Xr] 11 mg PO DAILY 06/25/17 Apixaban [Eliquis *] 5 mg PO BID 07/29/18 Melatonin 10 mg PO BEDTIME PRN 07/29/18 predniSONE [Prednisone*] 2.5 mg PO SEECOM 07/29/18 Furosemide [Lasix*] 40 mg PO BID #60 tab 07/30/18 Diet: AHA Activity: Ad yariel Followup: Dilip Ash MD [ACTIVE - CAN ADMIT] - 1-2 Weeks aLsha Fall MD [ACTIVE - CAN ADMIT] - 2-3 Days Physician Review: Patient Assessed, Agree with Above Assessment and Plan Time spent managing pt's care (in minutes): 25
== END 2020-06-15 10:09 | disposition home or self-care (01) | DRG 292 ==
LOC: ER 03:11 → ERHOLD 06:12 → 2ND 17:07
PROVIDERS: ADMIT Internal Medicine; ATTEND Internal Medicine
PROC: 5A09457 Assistance with Respiratory Ventilation, 24-96 Consecutive Hours, Continuous Positive Airway Pressure (ICD-10-PCS; principal; 2020-06-13)
DX: I11.0 Hypertensive heart disease with heart failure (principal); J44.1 Chronic obstructive pulmonary disease with (acute) exacerbation; I50.33 Acute on chronic diastolic (congestive) heart failure; I27.20 Pulmonary hypertension, unspecified; I35.8 Other nonrheumatic aortic valve disorders; I48.0 Paroxysmal atrial fibrillation; I05.0 Rheumatic mitral stenosis; Z88.8 Allergy status to other drugs, medicaments and biological substances; Z91.09 Other allergy status, other than to drugs and biological substances; Z79.01 Long term (current) use of anticoagulants; Z79.52 Long term (current) use of systemic steroids; Z87.891 Personal history of nicotine dependence; Z79.899 Other long term (current) drug therapy; Z90.49 Acquired absence of other specified parts of digestive tract; Z98.51 Tubal ligation status; Z20.822 Contact with and (suspected) exposure to COVID-19
CPT/HCPCS: 0240U; 36415; 71045; 80048; 80076; 83880; 84484; 85025; 85610; 85730; 87040; 93005; 93306; 94660; 96374; 96375; 99285; J0360; J1940; J2930

== ENCOUNTER 2020-09-16 00:22 | Emergency (ER) | payer MEDICARE, OTHER, SELFPAY ==
--- OUTSIDE RECORDS SUMMARY | 2020-09-16 00:28 | XMS REPORT | Continuity of Care Document ---
:1955 Author Organization [facility] t Address [address] [place] [address] Care Team Providers Name Role Phone Megan Fall MD Primary Care Physician Aneta Taveras MD Attending Clinician [phone] Ron BLAND Attending Clinician Unavailable Evangelist CHAMPION Attending Clinician Unavailable Judi Adkins MD Attending Clinician Judi Harper APRN Attending Clinician MD ANETA TAVERAS Attending Clinician Unavailable Provider Attending Clinician Unavailable Ravinder SALINAS Attending Clinician Curtis CHAMPION Attending Clinician Unavailable Wilton Penaloza DO Attending Clinician Jack CHAMPION Attending Clinician Unavailable Doctor Unassigned, Name Attending Clinician Unavailable Tate Klein MD Attending Clinician Agus SALINAS, F. Attending Clinician Orville Jimenez MD Attending Clinician Vilma Reyez Attending Clinician Mihir SALINAS, SDolores Attending Clinician Jonelle Gtz MD Attending Clinician NITIN Admitting Clinician Unavailable MD ANETA TAVERAS Admitting Clinician Unavailable NAGUEH Admitting Clinician Unavailable Payers Payer Name Policy Type Policy Effective Expiration Source Number Date Date TEXANPLUSTEXANPLUS [id number] Silvana bautista [id number] 2020- 00:00:00 M roxanaodist ToluO [facility] - [id number] [address] [facility] MGD 00:00:00 - Medical CAREAARP/MEDICARE Center [id number]/[id number] 20-Present Problems Condition Condition Condition Status Onset Resolution Last Treating Co mments Source Name Details Category Date Date Treatment Clinician Date S/P MVR S/P MVR Disease Active [place] (mitral (mitral 5-20 Methodi valve valve 00:00: st replacemen replacemen 00 t) t) S/P TVR S/P TVR Disease Active [place] (tricuspid (tricuspid 5-20 Me thodi valve valve 00:00: st repair) repair) 00 Severe Severe Disease Active [place] mitral mitral 4-19 Methodi regurgitat regurgitat 00:00: st ion ion 00 Nonrheumat Nonrheumat Disease Active Overview : [place] ic mitral ic mitral 3-29 Formattin M ethodi valve valve 00:00: g of this st regurgitat regurgitat 00 note ion ion might be different from the original. Added automatic ally from request for surgery [id number] Nonrheumat Nonrheumat Disease Active Overview : [place] ic ic 3-29 Formattin Methodi tricuspid tricuspid 00:00: g of this s t valve valve 00 note regurgitat regurgitat might be ion ion different from the original. Added automatic ally from request for surgery [id number] Allergies, Adverse Reactions, Alerts Allergy Allergy Status Severity Reaction(s) Onset Inactive Treating Comm ents Source Name Type Date Date Clinician Povidone Drug Active Hives 2019-[address] [facility] Codeine Drug Active Severe 2019-[address] Allergy 1-16 reaction( [facility] - [facility] s[facility] GI Medical 00 Intoleran Center ce Codeine Propensi Active GI 2019-04 [place] ty to Intolerance -16 Metho di adverse 00:00: st reaction 00 s to drug Thiopent Propensi Active GI 2019-04 Nausea [place] ty to Intolerance -16 and Metho di Sodium adverse 00:00: Vomiting st reaction 00 s to drug Povidone Propensi Active Hives 2019-04 [place] -Iodine ty to 1-16 Methodi adverse 00:00: st reaction 00 s to drug Iodine-I Drug Active 2018-[address] [facility] sopropyl Allergy 0-09 [facility] Alcohol [facility] Medical 00 Center Avocado Drug Active Other [facility] Allergy 8-05 reaction( [facility] - 00:[facility]: s): Other Medical 00 - See Center commentsP t reports upset stomach after consumpti on but no n/v. Dexter Sek[address] [place] ext. [id number] Iodine Drug Active Hives topical [facility] Allergy 5- [facility] Family History Family Member Diagnosis Comments Start Date Stop Date Source Natural father No Known Problems Maria Del Rosario ston Jew Natural mother No Known Problems Maria Del Rosario stomichele Jew Social History Social Habit Start Date Stop Date Quantity Comments Source History of tobacco 1974-05-12 Current smoker [place] Jew use 00:00:00 Sex [facility]igned [facility] Std Drinks [facility] Alcohol Binge Exposure to Not sure [place] Metho dist SARS-CoV-2 (event) Cigarettes smoked 2020-08-19 2020-08-19 Ray Jew current (pack per 00:00:00 00:00:00 day) - Reported Cigarette 2020-08-19 2020-08-19 Ray Method ist pack-years 00:00:00 00:00:00 Tobacco use and 2020-08-19 2020-08-19 Never used Ray Rommel ethodist exposure 00:00:00 00:00:00 Alcohol intake 2020-08-19 2020-08-19 Ex-drinker [facility] thodist 00:00:00 00:00:00 (finding) Alcohol Comment 2020-07-14 2020-07-14 liquor 5-6 [facility] ethodist 00:00:00 00:00:00 drinks on weekends History SDOH 2020-06-23 2020-06-23 1 [place] Meth odist Alcohol Frequency 00:00:00 00:00:00 Smoking Status Start Date Stop Date Source Former smoker 2020-08-19 00:00:00 2020-08-19 00:00:00 Cory Clarkist Current every day 2020-03-03 00:00:00 [facility] smoker Center Medications Ordered Filled Start Stop Current Ordering Indication Dosage Frequency Signature Comments Components Source Medication Medication Date Date Medication? Clinician (SIG) Name Name tofacitinib Yes 11mg QD Take 11 mg Ray 11 mg 5-20 by mouth Methodi tablet 14:32: daily. st extended 18 release 24 hr apixaban Yes 5mg QD Take 5 mg [place] (ELIQUIS) 5 5-20 by mouth Meth gallo mg tablet 14:30: daily. st 45 sertraline Yes 50mg QD Take 50 mg [place] (ZOLOFT) 50 5-20 by mouth Meth gallo MG tablet 14:30: every st 45 morning. buPROPion Yes 150mg QD Take 150 Maria Del Rosario ston XL 5-20 mg by Methodi (WELLBUTRIN 14:30: mouth st XL) 150 MG 45 every 24 hr morning. tablet albuterol Yes 2.5mg Q4H Take 2.5 Maria Del Rosario ston (ACCUNEB) 5-20 mg by Methodi 2.5 mg /3 14:30: nebulizati st mL (0.083 45 on every 4 %) (four) nebulizer hours as solution needed for wheezing. albuterol Yes 2{puff} Inhale 2 [place] (PROAIR 5-20 puffs as Methodi HFA) 90 14:30: needed for st mcg/actuati 45 wheezing. on inhaler fluticasone Yes QD Inhale [place] /umeclidin/ 5-20 every Methodi vilanter 14:30: morning. st (TRELEGY 45 ELLIPTA INHL) metoprolol Yes 100mg Q.5D Take 100 [place] succinate 5-20 mg by Methodi XL 14:30: mouth 2 st (TOPROL-XL) 45 (two) 100 mg 24 times a hr tablet day. aspirin 81 2020- Yes 81mg QD Chew 1 [place] mg chewable 07-28-27 tablet (81 M ethodi tablet 00:00: 23:59 mg total) st 00 :00 daily for 90 days. sotaloL 2020- No 120mg Q.5D Take 120 [place] (BETAPACE) 07-27-27 mg by Methodi 120 MG 16:34: 00:[address] tablet 09 :00 (two) times a day. digOXIN 2020- No 125ug QD Take 125 [place] (LANOXIN) 07-27-27 mcg by Methodi 125 mcg 16:34: 00:[address] (0.125 mg) 09 :00 every tablet morning. furosemide 2020- No 40mg Q.5D Take 40 mg Ray (LASIX) 40 07-27 by mouth 2 Me thodi mg tablet 13:41: 00:00 (two) st 15 :00 times a day. Can take up to 3 times a day if needed traMADoL 2020- No acute pain 50mg Q6H Take 50 mg Ray (ULTRAM) 50 07-27 by mouth Met hodi mg tablet 13:41: 00:[address] 15 :00 (six) hours as needed for moderate pain .acute pain. furosemide 2020- No 40mg QD Take 1 [place] (LASIX) 40 07-27 tablet (40 Me thodi mg tablet 00:00: 23:59 mg total) st 00 :00 by mouth daily for 30 days. Can take up to 3 times a day if needed potassium 2020- No 20meq QD Take 2 [place] chloride 07-27 capsules Method i (MICRO-K) 00:00: 23:59 ([address] 10 MEQ CR 00 :00 total) by capsule mouth daily for 30 days. traMADoL 2020- No acute pain 50mg Q6H Take 1 Ray (ULTRAM) 50 07-27 05-02 tablet (50 M ethodi mg tablet 00:00: 23:59 mg total) st 00 :00 by mouth every 6 (six) hours as needed for moderate pain for up to 5 days .acute pain. nitrofurant 2020- No 100mg Q.5D Take 1 Ho pamela oin, 07-15 capsule Methodi macrocrysta 00:00: 00:00 ([address] l-monohydra 00 :00 total) by te, mouth 2 (Macrobid) (two) 100 MG times a capsule day for 5 days. meloxicam No 15mg QD Take 15 mg [place] (MOBIC) 15 4-14 04-14 by mouth Meth gallo mg tablet 13:53: 00:[address] 38 :00 Advair Yes Ray Diskus 4-14 Methodi 250-50 00:00: st mcg/dose 00 DISKUS tofacitinib 2019-04 Yes 11mg Take 11 mg [...] (two) Medical 00 times Center daily. buPROPion 2020-0 Yes TAKE [address] [facility] (WELLBUTRIN 9-24 TABLET BY Dee es - XL) 150 MG 00:00: MOUTH ONCE M edical 24 hr 00 DAILY IN [facility] tablet THE MORNING FOR 90 DAYS meloxicam 2019- No [facility] (MOBIC) 15 12-10 [facility] - MG tablet 00:00: 00:00 Medical 00 :00 [facility] furosemide Yes 40mg Take [address] (LASIX) 40 2-25 by mouth. Luke s - MG tablet 00:00: Medical 00 [facility] potassium Yes 20meq Take [address] chloride SA 2-25 mEq by [facility] - (K-DUR,KLOR 00:00: mouth. Medi nicolas -CON) 20 00 [facility] MEQ tablet Vital Signs Vital Name Observation Time Observation Value Comments Source Systolic blood 2020-08-19 14:25:00 102 mm[Hg] 121/85 RtArm [place] pressure Jew Diastolic blood 2020-08-19 14:25:00 62 mm[Hg] 121/85 RtArm [place] pressure Jew Heart rate 2020-08-19 14:25:00 85 /min [facility] Body temperature 2020-08-19 14:25:00 36.28 Lay [facility] Jew Body height 2020-08-19 14:25:00 175.3 cm [facility] Body weight 2020-08-19 14:25:00 90.76 kg [facility] BMI 2020-08-19 14:25:00 29.55 kg/m2 [facility] Oxygen saturation 2020-08-19 14:25:00 96 /min Maria Del Rosario ston in Arterial blood Jew by Pulse oximetry Respiratory rate 2020-07-27 11:58:27 20 /min [facility] Jew Oxygen saturation 2020-03-22 12:32:00 96 /min [facility] - in Arterial blood [facility] nter by Pulse oximetry Systolic blood 2020-03-03 11:02:00 149 mm[Hg] [facility] pressure [facility] Diastolic blood 2020-03-03 11:02:00 78 mm[Hg] [facility] Heart rate 2020-03-03 11:02:00 80 /min [facility] Body weight 2020-03-03 11:02:[address] [facility] Procedures Procedure Date / Time Performing Clinician Source Performed XR CHEST 2 VW 2020-08-19 15:48:00 Gm Taveras Kal[place]and POC GLUCOSE 2020-07-27 11:56:00 Gm Taveras Kalachshyla POC GLUCOSE 2020-07-27 08:11:00 Gm Taveras Kalrosalie POC GLUCOSE 2020-07-26 21:50:00 Gm Taveras [place] POC GLUCOSE 2020-07-26 17:27:00 Gm Taveras [place] POC GLUCOSE 2020-07-26 11:18:00 Gm Taveras Kalach[place]yla POC GLUCOSE 2020-07-26 08:30:00 Gm Taveras [place] PARTIAL THROMBOPLASTIN 2020-07-26 06:00:00 Gm Taveras TIME (PTT) [place] BASIC METABOLIC PANEL 2020-07-26 06:00:00 Gm Taveras [place] MAGNESIUM LEVEL 2020-07-26 06:00:00 Gm Taveras [place] ESTIMATED GFR 2020-07-26 06:00:00 Gm Taveras [place] ECG 12-LEAD 2020-07-25 11:52:56 Sophy Mcfarlane HC COMPLETE BLD COUNT 2020-07-25 05:00:00 Jameson Spear W/AUTO DIFF BASIC METABOLIC PANEL 2020-07-25 05:00:00 Jameson Spear ESTIMATED GFR 2020-07-25 05:00:00 Jameson Spear odist POC GLUCOSE 2020-07-24 21:03:00 Gm Taveras [place] POC GLUCOSE 2020-07-24 18:23:00 Gm Taveras [place] ECG 12-LEAD 2020-07-24 12:11:06 Xiang Cevallos Meth odist POC GLUCOSE 2020-07-24 11:12:00 Gm Taveras [place] POC GLUCOSE 2020-07-24 07:46:00 Gm Taveras [place] HEPATIC FUNCTION PANEL 2020-07-24 05:30:00 Shelli Sawyer Jew BASIC METABOLIC PANEL 2020-07-24 05:30:00 Shelli Sawyer on Jew MAGNESIUM LEVEL 2020-07-24 05:30:00 Shelli Sawyer Met hodist HC COMPLETE BLD COUNT 2020-07-24 05:30:00 Shelli Sawyer on Jew W/AUTO DIFF ESTIMATED GFR 2020-07-24 05:30:00 Shelli Sawyer Met hodist POC GLUCOSE 2020-07-23 22:49:00 Gm Taveras VENIPUNC NEED PHYS 2020-07-23 18:52:56 Linda Neil ethodist SKILL,DX OR RX POC GLUCOSE 2020-07-23 18:20:00 Gm Taveras [place] POC GLUCOSE 2020-07-23 12:05:00 Gm Taveras [place] ECG 12-LEAD 2020-07-23 08:42:00 Debbie Cote Jew POC GLUCOSE 2020-07-23 08:03:00 Gm Taveras [place] POC GLUCOSE 2020-07-23 04:31:00 Gm Taveras XR CHEST 1 VW PORTABLE 2020-07-23 03:28:00 DoHanna on Jew HEPATIC FUNCTION PANEL 2020-07-23 00:30:00 VoShelli rader Jew BASIC METABOLIC PANEL 2020-07-23 00:30:00 Do, Hanna bautista Jew MAGNESIUM LEVEL 2020-07-23 00:30:00 Do, Hanna Ray Meth odist PHOSPHORUS LEVEL 2020-07-23 00:30:00 Do, Hanna Pop hodist ESTIMATED GFR 2020-07-23 00:30:00 Do, Hanna ryan HC COMPLETE BLD COUNT 2020-07-23 00:00:00 DoHanna W/AUTO DIFF TYPE AND SCREEN 2020-07-23 00:00:00 Hanna London odpasquale POC GLUCOSE 2020-07-22 23:56:00 Gm Taveras [place] POC GLUCOSE 2020-07-22 20:24:00 Gm Taveras [place] XR ABDOMEN 1 VW PORTABLE 2020-07-22 17:00:00 Gm Taverasist [place] POC GLUCOSE 2020-07-22 15:36:00 Gm Taveras [place] ECG 12-LEAD 2020-07-22 12:04:51 Shelli Sawyer Met hodist POC GLUCOSE 2020-07-22 11:16:00 Gm Taverasist [place] POC GLUCOSE 2020-07-22 07:26:00 Nitin Gmmiguelina Clarkist [place] ECG 12-LEAD 2020-07-22 06:46:56 Manny Alex Met hodist Dhansukhlal POC GLUCOSE 2020-07-22 04:02:00 Gm Taveras [place] XR CHEST 1 VW PORTABLE 2020-07-22 03:45:00 Wilton Canales HEPATIC FUNCTION PANEL 2020-07-22 00:17:00 Shelli Sawyer Jew BASIC METABOLIC PANEL 2020-07-22 00:17:00 Wilton Canales IONIZED CALCIUM 2020-07-22 00:17:00 Wilton Canales MAGNESIUM LEVEL 2020-07-22 00:17:00 Wilton Canales ESTIMATED GFR 2020-07-22 00:17:00 Wilton Canales HC COMPLETE BLD COUNT 2020-07-22 00:00:00 Wilton Canales W/AUTO DIFF Rainer POC GLUCOSE 2020-07-21 23:44:00 Gm Taveras Kalach[place]yla POC GLUCOSE 2020-07-21 19:55:00 Gm Taveras [place] POC GLUCOSE 2020-07-21 16:06:00 Gm Taveras [place] POC GLUCOSE 2020-07-21 11:53:00 Gm Taveras URINE CULTURE 2020-07-21 11:00:00 Bacilio Wooten Me thodist URINALYSIS SCREEN AND 2020-07-21 11:00:00 Bacilio Wooten [facility] Jew MICROSCOPY, WITH REFLEX TO CULTURE ECG 12-LEAD 2020-07-21 08:23:37 Debbie Cote POC GLUCOSE 2020-07-21 07:54:00 Gm Taveras ECG 12-LEAD 2020-07-21 05:03:31 Manny Alex POC GLUCOSE 2020-07-21 04:15:00 Gm Taveras XR CHEST 1 VW PORTABLE 2020-07-21 03:40:00 Wilton Canales on Ed Spear BASIC METABOLIC PANEL 2020-07-21 00:33:00 Wilton Canales MAGNESIUM LEVEL 2020-07-21 00:33:00 Wilton Canales ESTIMATED GFR 2020-07-21 00:33:00 Wilton Canales CBC WITH PLATELET AND 2020-07-21 00:00:00 Wilton Canales DIFFERENTIAL Rainer MANUAL DIFFERENTIAL 2020-07-21 00:00:00 Wilton Canales POC GLUCOSE 2020-07-20 23:56:00 Gm Taverasachand POC GLUCOSE 2020-07-20 19:50:00 Gm Taverasachshyla POC GLUCOSE 2020-07-20 15:52:00 Gm Taveras LINE/DRAIN REMOVAL 2020-07-20 13:46:33 Manny Alexukhlal HEMOGLOBIN & HEMATOCRIT 2020-07-20 13:40:00 SilverioShellimichele Jew MAGNESIUM LEVEL 2020-07-20 13:40:00 Jimmieprasanth Shelli Ray Met hodist POTASSIUM LEVEL 2020-07-20 13:40:00 Jimmieprasanth Shelli [facility] POC GLUCOSE 2020-07-20 11:46:00 Gm Taveras [place] XR CHEST 1 VW PORTABLE 2020-07-20 11:35:00 Manny Alex [facility] POC GLUCOSE 2020-07-20 07:27:00 Gm Taveras ECG 12-LEAD 2020-07-20 05:25:48 Manny [facility] BAS[facility]ABOLIC PANEL 2020-07-20 05:03:00 Wilton Canales MAGNESIUM LEVEL 2020-07-20 05:03:00 Wilton Canales ESTIMATED GFR 2020-07-20 05:03:00 Wilton Canales POC GLUCOSE 2020-07-20 04:12:00 Gm Taveras [place] XR CHEST 1 VW PORTABLE 2020-07-20 02:52:00 Wilton Canales BASIC METABOLIC PANEL 2020-07-20 00:37:00 Wilton Canales MAGNESIUM LEVEL 2020-07-20 00:37:00 Wilton Canales LACTIC ACID LEVEL 2020-07-20 00:37:00 Wilton Canales Me thconnor Spear ESTIMATED GFR 2020-07-20 00:37:00 Wilton Canales ARTERIAL BLOOD GAS 2020-07-20 00:13:00 Wilton Canales ethconnor Spear HC COMPLETE BLD COUNT 2020-07-20 00:13:00 Wilton Canales W/AUTO DIFF Rainer O2 SATURATION, VENOUS 2020-07-20 00:13:00 Wilton Canales PARTIAL THROMBOPLASTIN 2020-07-20 00:13:00 Wilton Canales on Jew TIME (PTT) Rainer PROTHROMBIN TIME WITH INR 2020-07-20 00:13:00 Wilton Canales IONIZED CALCIUM, ARTERIAL 2020-07-20 00:13:00 Wilton Canales POC GLUCOSE 2020-07-19 23:38:00 Gm Taveras [place] ARTERIAL BLOOD GAS 2020-07-19 22:07:00 Wilton Canales POC GLUCOSE 2020-07-19 21:03:00 Gm Taveras POC GLUCOSE 2020-07-19 19:49:00 Gm Taveras [place] ARTERIAL BLOOD GAS 2020-07-19 19:35:00 Manny Alex Dhansukjoseal POC GLUCOSE 2020-07-19 18:50:00 Gm Taveras [place] POC GLUCOSE 2020-07-19 17:54:00 Gm Taveras Kalach[place]yla ECG 12-LEAD 2020-07-19 17:21:09 Manny Alex [facility]LO[facility]AS 2020-07-19 17:17:00 Marcella Lakhani Jew POC GLUCOSE 2020-07-19 17:13:00 Gm Taveras XR CHEST 1 VW PORTABLE 2020-07-19 15:55:00 Manny Alex Jew Dhansukhlaureliano BASIC METABOLIC PANEL 2020-07-19 15:40:00 Manny Alex on Jew [facility] COMPLETE BLD COUNT 2020-07-19 15:40:00 Manny Alex on Jew W/AUTO DIFF [facility] MAGNESIUM LEVEL 2020-07-19 15:40:00 Manny Alex [facility] PHOSPHORUS LEVEL 2020-07-19 15:40:00 Manny Alex Wy thodist Agnieszka PROTHROMBIN TIME WITH INR 2020-07-19 15:40:00 Manny Alexaureliano PARTIAL THROMBOPLASTIN 2020-07-19 15:40:00 Manny Alex Jew TIME (PTT) Dhansukal ARTERIAL BLOOD GAS 2020-07-19 15:40:00 [facility]IB[facility] 2020-07-19 15:40:00 Manny Alex Met marry Monteroal ESTIMATED GFR 2020-07-19 15:40:00 Manny Alex Met marry Aaron IONIZED CALCIUM, ARTERIAL 2020-07-19 15:40:00 [facility]SE 2020-07-19 15:39:00 Gm Taveras SC AN ELECTIVE 2020-07-19 15:14:25 Abel Adkins Meth odist ENDOTRACHEAL AIRWAY ARTERIAL BLOOD GAS, 2020-07-19 14:56:00 Gm Taveras CORRECTED Kalrosalie SODIUM LEVEL, SYRINGE 2020-07-19 14:56:00 Gm Taveras Kal[place]yla POTASSIUM, SYRINGE 2020-07-19 14:56:00 Gm Taveras IONIZED CALCIUM, ARTERIAL 2020-07-19 14:56:00 Melly Taveras [place] HEMOGLOBIN, SYRINGE 2020-07-19 14:56:00 Gm Taverasachshyla GLUCOSE LEVEL, SYRINGE 2020-07-19 14:56:00 Gm Taveras ACTIVATED CLOTTING TIME 2020-07-19 13:51:00 Gm Taveras FIBRINOGEN 2020-07-19 13:14:00 Gm Taveras PROTHROMBIN TIME WITH INR 2020-07-19 13:14:00 Melly Taveras Jew [place] PLATELET COUNT 2020-07-19 13:14:00 Gm Taveras Jew [place] HEMOGLOBIN & HEMATOCRIT 2020-07-19 13:14:00 Gm Taveras Jew [place] POTASSIUM, SYRINGE 2020-07-19 13:04:00 Gm Taveras on Jew [place] SODIUM LEVEL, SYRINGE 2020-07-19 13:04:00 Gm Taveras Jew [place] ARTERIAL BLOOD GAS, 2020-07-19 13:04:00 Nitin, Gm madsen Jew CORRECTED [place] IONIZED CALCIUM, ARTERIAL 2020-07-19 13:04:00 Melly Taveras Jew [place] HEMOGLOBIN, SYRINGE 2020-07-19 13:04:00 Gm Taveras Jew [place] GLUCOSE LEVEL, SYRINGE 2020-07-19 13:04:00 Gm Taveras Jew [place] ACTIVATED CLOTTING TIME 2020-07-19 13:01:00 Gm Taveras Jew [place] SODIUM LEVEL, SYRINGE 2020-07-19 12:33:00 Gm Taveras Jew [place] ARTERIAL BLOOD GAS, 2020-07-19 12:33:00 Gm Taveras Jew CORRECTED [place] POTASSIUM, SYRINGE 2020-07-19 12:33:00 Gm Taveras on Jew [place] HEMOGLOBIN, SYRINGE 2020-07-19 12:33:00 Gm Taveras Jew [place] IONIZED CALCIUM, ARTERIAL 2020-07-19 12:33:00 Melly Taveras Jew [place] GLUCOSE LEVEL, SYRINGE 2020-07-19 12:33:00 Gm Taveras Jew [place] ACTIVATED CLOTTING TIME 2020-07-19 12:30:00 Gm Taveras Jew [place] GLUCOSE LEVEL, SYRINGE 2020-07-19 12:04:00 Gm Taveras Jew [place] HEMOGLOBIN, SYRINGE 2020-07-19 12:04:00 Gm Taveras Jew [place] IONIZED CALCIUM, ARTERIAL 2020-07-19 12:04:00 Melly Taveras Jew [place] POTASSIUM, SYRINGE 2020-07-19 12:04:00 Gm Taveras on Jew [place] SODIUM LEVEL, SYRINGE 2020-07-19 12:04:00 Gm Taveras Jew [place] ARTERIAL BLOOD GAS, 2020-07-19 12:04:00 Gm Taveras Jew CORRECTED [place] ACTIVATED CLOTTING TIME 2020-07-19 12:02:00 Gm Taveras Jew [place] GLUCOSE LEVEL, SYRINGE 2020-07-19 11:28:00 Gm Taveras Jew [place] HEMOGLOBIN, SYRINGE 2020-07-19 11:28:00 Gm Taveras Jew [place] IONIZED CALCIUM, ARTERIAL 2020-07-19 11:28:00 Melly Taveras Jew [place] SODIUM LEVEL, SYRINGE 2020-07-19 11:28:00 Gm Taveras Jew [place] POTASSIUM, SYRINGE 2020-07-19 11:28:00 Gm Taveras on Jew [place] ARTERIAL BLOOD GAS, 2020-07-19 11:28:00 Gm Taveras Jew CORRECTED [place] ACTIVATED CLOTTING TIME 2020-07-19 11:27:00 Gm Taveras Jew [place] ARTERIAL BLOOD GAS, 2020-07-19 10:54:00 Gm Taveras Jew CORRECTED [place] SODIUM LEVEL, SYRINGE 2020-07-19 10:54:00 Gm Taveras Jew [place] POTASSIUM, SYRINGE 2020-07-19 10:54:00 Gm Taveras on Jew [place] HEMOGLOBIN, SYRINGE 2020-07-19 10:54:00 Gm Taveras Jew [place] GLUCOSE LEVEL, SYRINGE 2020-07-19 10:54:00 Gm Taveras Jew [place] IONIZED CALCIUM, ARTERIAL 2020-07-19 10:54:00 Melly Taveras [place] LACTIC ACID, SYRINGE 2020-07-19 10:54:00 Gm Taveras Jew [place] ACTIVATED CLOTTING TIME 2020-07-19 10:53:00 Gm Taveras [place] ACTIVATED CLOTTING TIME 2020-07-19 10:36:00 Gm Taveras [place] ANESTHESIA RONEL 2020-07-19 10:14:09 Abel Adkins odpasquale POTASSIUM, SYRINGE 2020-07-19 10:10:00 Gm Taveras Jew [place] ARTERIAL BLOOD GAS, 2020-07-19 10:10:00 Gm Taveras Jew CORRECTED [place] SODIUM LEVEL, SYRINGE 2020-07-19 10:10:00 Gm Taveras Jew [place] IONIZED CALCIUM, ARTERIAL 2020-07-19 10:10:00 Melly Taveras [place] HEMOGLOBIN, SYRINGE 2020-07-19 10:10:00 Gm Taveras Jew [place] GLUCOSE LEVEL, SYRINGE 2020-07-19 10:10:00 Gm Taveras [place] PA CATHETER 2020-07-19 08:34:35 Abel Adkins odist CENTRAL LINE 2020-07-19 08:33:37 Abel Adkins odist ARTERIAL LINE 2020-07-19 08:32:57 Abel Adkins odist SC AN ELECTIVE 2020-07-19 08:32:07 Abel Adkins odist ENDOTRACHEAL AIRWAY SURGICAL PATHOLOGY REQUEST 2020-07-19 08:17:00 Vineet Taveras Jew [place] ARTERIAL BLOOD GAS, 2020-07-19 08:04:00 Gm Taveras Jew CORRECTED [place] SODIUM LEVEL, SYRINGE 2020-07-19 08:04:00 Gm Taveras POTASSIUM, SYRINGE 2020-07-19 08:04:00 Gm Taveras on Ed Cornell IONIZED CALCIUM, ARTERIAL 2020-07-19 08:04:00 Melly Taveras HEMOGLOBIN, SYRINGE 2020-07-19 08:04:00 Gm Taveras GLUCOSE LEVEL, SYRINGE 2020-07-19 08:04:00 Gm Taveras ACTIVATED CLOTTING TIME 2020-07-19 08:01:00 Gm Taveras REPAIR OR REPLACEMENT, 2020-07-19 07:38:00 mG Taveras MITRAL VALVE, WITH [place] CARDIOPULMONARY BYPASS REPLACEMENT, TRICUSPID 2020-07-19 07:38:00 Gm Taveras VALVE, USING [place] CARDIOPULMONARY BYPASS ATRIAL APPENDAGE LIGATION 2020-07-19 07:38:00 Melly Taveras ABO AND RH CONFIRMATION 2020-07-19 06:47:00 Gm Taveras TYPE AND SCREEN 2020-07-14 14:29:00 Gm Taveras PROTHROMBIN TIME WITH INR 2020-07-14 14:29:00 Melly Taveras B NATRIURETIC PEPTIDE 2020-07-14 14:29:00 Gm Taveras PREPARE RBC 2020-07-14 14:29:00 Gm Taveras ECG PRE/POST OP 2020-07-14 14:22:18 Jovita Harper ethodist COVID-19 QUALITATIVE PCR 2020-07-14 13:42:00 Gm Taveras URINALYSIS SCREEN AND 2020-07-14 13:42:00 Jovita Harper MICROSCOPY, WITH REFLEX TO CULTURE HEMOGLOBIN A1C 2020-07-14 13:42:00 Gm Taveras Kalrosalie PARTIAL THROMBOPLASTIN 2020-07-14 13:42:00 Gm Taveras TIME (PTT) Kalrosalie COMPREHENSIVE METABOLIC 2020-07-14 13:42:00 Gm Taveras PANEL Kalrosalie HC COMPLETE BLD COUNT 2020-07-14 13:42:00 Gm Taveras Jew W/AUTO DIFF Kalrosalie ESTIMATED GFR 2020-07-14 13:42:00 Gm Taveras Kalrosalie VITAMIN B12 LEVEL 2020-07-14 13:34:00 Gm Taveras TOTAL IRON BINDING 2020-07-14 13:34:00 Gm Taveras Jew CAPACITY Kalrosalie LIPID PANEL 2020-07-14 13:34:00 Gm Taveras Kalachshyla FOLATE LEVEL 2020-07-14 13:34:00 Gm Taveras Kalachshyla FERRITIN LEVEL 2020-07-14 13:34:00 Gm Taveras URINE CULTURE 2020-07-14 13:15:00 Jovita Harper ethodist SPIROMETRY, DIFFUSION, 2020-07-14 11:16:00 Gm Taveras LUNG VOLUMES Aneta US CAROTID DUPLEX 2020-07-14 09:39:40 Gm Taveras BILATERAL [place] CT ANGIOGRAM CHEST ABDOMEN 2020-06-23 18:01:17 Vineet Taveras PELVIS W AND OR WITHOUT Patricachshyla CONTRAST XR CHEST 2 VW 2020-06-23 16:39:00 Gm Taveras VENOUS DOPPLER LEGS 2020-03-22 14:08:00 Letsou, [facility] SPIROMETRY 2020-03-22 11:30:00 Letsou, [facility] ECHOCARDIOGRAM 2020-02-17 11:31:45 Sathish Hardy Wy thodist TRANSESOPHAGEAL W DOPPLER COLORFLOW ESTIMATED GFR 2020-02-17 09:31:00 JoemaiaPhilippe KarenaDolores [facility] POC PANEL 2020-02-17 09:31:00 Philippe Goldsmith [facility] Plan of Care Planned Activity Planned Date Details Comments Source Future Scheduled 2020-12-[address] [facility] Test 00:00:00 (Season Ended) [code = Medic al Center INFLUENZA VACCINE (Season Ended)] Future Scheduled 2020-10-31 INFLUENZA VACCINE [place] [facility] 00:00:00 [code = INFLUENZA VACCINE] Future Scheduled 2020-04-[address] [facility] Test 00:00:00 (12+) [code = Medical Center DEPRESSION SCREENING (12+)] Future Scheduled 2019-11-01 Medicare IPPE (WEL[facility]E [facility]00 TO MEDICARE) [code = Medical Center Medicare IPPE (WELCOME TO MEDICARE)] Future Scheduled 2007 SHINGLES VACCINES ([address] [facility] - Test 00:00:00 of 2) [code = SHINGLES Medic al Center VACCINES (1 of 2)] Future Scheduled 2007 BREAST CANCER [facility]odist Test 00:00:00 SCREENING [code = BREAST CANCER SCREENING] Future Scheduled 2007 COLONOSCOPY SCRE[place]ING [place] [facility] 00:00:00 [code = COLONOSCOPY SCREENING] Future Scheduled 2007 SHINGLES VACCINES (#1) [place] [facility] 00:00:00 [code = SHINGLES VACCINES (#1)] Future Scheduled [address] [facility]:00 (procedure) [code = [facility] 28008319] Future Scheduled [address] [facility] 00[facility]00 [facility] (procedure) [code = 701118193] Future Scheduled 1978 Screening for [facility]odist Test 00:00:00 malignant neoplasm of cervix (procedure) [code = 014341714] Future Scheduled 1976-01-31 DTAP/TDAP/TD [facility]ACCINES [facility]00 (1 - Tdap) [code = Medical C enter DTAP/TDAP/TD VACCINES (1 - Tdap)] Future Scheduled 1975 HEPATITIS C SCREENING [facility] 00:[facility]:00 [code = HEPATITIS C Medical Center SCREENING] Future Scheduled 1975 Hepatitis C screening [place] [facility] 00:00:00 (procedure) [code = 480307629] Future Scheduled 1969 COVID-19 VACCINE (1) [facility] Test 00:00:00 [code = COVID-[address] VACCINE (1)] Future Scheduled 1969 COVID-19 VACCINE (1) [facility] Test 00:00:00 [code = COVID-19 VACCINE (1)] Future Scheduled [address] [facility] - Test 00:00:00 0-64 YRS (1 of 1 - Medical C enter PPSV23) [code = PNEUMOCOCCAL VACCINE 0-64 YRS (1 of 1 - PPSV23)] Future Scheduled [address] [facility] 00:00:00 [facility] breast (procedure) [code = 764492465] Future Scheduled [address] [facility] 00:00:00 [facility] colon (procedure) [code = 013905433] Encounters Start End Encounter Admission Attending Care Care Encounter Source Date/Time Date/Time Type Type Clinicians Facility Department ID 2020-08-19 2020-08-19 Outpatient [facility] [id number] [place] 00:00:00 00:00:00 , GM [address] 2020-08-19 2020-08-19 Outpatient [facility] [id number] [place] 00:00:00 00:00:00 , GM [address] 2020-07-19 2020-07-27 Inpatient [facility] [id number] [place] 00:00:00 00:00:00 , GM [address] 2020-07-14 2020-07-14 Outpatient [facility] [id number] [place] 00:00:00 00:00:00 , GM [address] 2020-07-14 2020-07-14 Outpatient [facility] [id number] [place] 00:00:00 00:00:00 , GM 182 [address] 2020-07-14 2020-07-14 Outpatient [facility] [id number] [place] 00:00:00 00:00:00 , GM 428 [address] 2020-06-23 2020-06-23 Outpatient [facility] [id number] [place] 00:00:00 00:00:00 , GM 678 [address] 2020-06-23 2020-06-23 Outpatient [facility] [id number] [place] 00:00:00 00:00:00 , GM [address] 2020-06-23 2020-06-23 Outpatient [facility] [id number] [place] 00:00:00 00:00:00 , GM [address] 2020-06-21 2020-06-21 [facility] 1.2.840.114 [id number] 00:00:00 00:00:00 Anna Marie [place] 350.1.13.10 [place] 4.2.7.2.686 Profadolph [id number] [facility]9 [facility] 2020-06-09 2020-06-09 [facility] 1.2.840.114 [id number] 00:00:00 00:00:00 Outreach [facility] [place] 350.1.13.10 [facility] 4.2.7.2.686 PAVGENO [id number] 2020-05-20 2020-05-20 Orders Doctor LUNA 1.2.840.114 [id number] 00:00:00 00:00:00 Only Unassigned, LUCIAN 350.1.13.10 [place] [facility] 4.2.7.2.686 [id number] 2020-02-17 2020-02-17 Outpatient [facility] [id number] [place] 00:00:00 00:00:00 PHILIPPE 129 Method i 2019-12-25 2019-12-25 Orders Doctor LUNA 1.2.840.114 [id number] 00:00:00 00:00:00 Only Unassigned, LUCIAN 350.1.13.10 [place] [facility] 4.2.7.2.686 [id number] [id number] 2019-08-04 2019-08-04 Refill [facility] 1.2.840.114 [id number] 00:00:00 00:00:00 Anna Marie Gi[place] 350.1.13.10 [place] 4.2.7.2.686 Professio [id number] [address] 2019-07-29 2019-07-29 Refill [facility] 1.2.840.114 [id number] 00:00:00 00:00:00 Anna Marie Giord[place] 350.1.13.10 [place] 4.2.7.2.686 Professio [id number] [address] 2019-06-26 2019-06-26 Orders Doctor JEREMY 1.2.840.114 [id number] 00:00:00 00:00:00 Only Unassigned, LUCIAN 350.1.13.10 [place] [facility] 4.2.7.2.686 [id number] 2019-05-27 2019-05-27 Office [facility] 1.2.840.114 [id number] 09:24:52 10:34:57 Visit Anna Marie Giordano 350.1.13.10 [place] 4.2.7.2.686 Professio [id number] [address] 2019-01-08 2019-01-08 Office Louisdayday LAKESHIARommel 1.2.840.114 [id number] 14:16:47 17:54:57 Visit Esther Y AMBULATOR 350.1.13.21 Y 0.2.7.2.686 [id number] Results Test Description Test Time Test Comments Results Result [facility] e Comments XR Chest 2 Vw 2020-08-01 [facility] [address] 16:06:31 - 08/19/2020 4:09 PM CDT EXAMINATION: XR CHEST 2 VWCLINICAL HISTORY: 65 years Female I34.0 Nonrheumatic mitral (valve) insufficiency, post opCOMPARISON: July 23, 2020IMPRESSION:Heart and mediastinum: Cardiomediastinal silhouette is mildly enlarged, improved from prior. Aortic calcifications. Left atrial appendage occlusion device in place.Lungs and pleura: Trace biapical pleural-parenchymal scarring. There is no focal airspace disease, pleural effusion or pneumothorax.Bones: No acute abnormality. Median sternotomy wires appear unchanged.[id number] PDDictated and approved by radiology technologist/fellow: Manjinder Sauceda M.D.I, Ishmael Eubanks, personally reviewed the images and resident's/fellow's findings and agree with the final report. ECG 12 lead 2020-07-26 08:14:15 Test Item Value Reference Range Interpretation Comme nts Ventricular rate (test code = 253) 76 Atrial rate (test code = 255) 76 SC interval (test code = 266) 174 QRSD interval (test code = 260) 82 QT interval (test code = 264) 412 QTC interval (test code = 265) 463 P axis 1 (test code = 267) 27 QRS axis 1 (test code = 268) 17 T wave axis (test code = 270) 62 EKG impression (test code = 273) Normal sinus rhythm-Cannot rule ou t Anterior infarct , age undetermined-Abnormal ECG-In automated comparison with ECG of 24-JUL-2020 12:11,-No significant change was found- Cory Alan NEED PHYS SKILL,DX OR [id number] 18:52:56Linda Neil RN 07/23/2020 6:54 PMMidline Insertion Date/Time: 07/23/2020 6:52 PMPerformed by:Linda Neil, RNAuthorized by: Gm Taveras MD Consent: Consent obtained: Verbal Consent given by: Patient Risks discussed: Arterial puncture, incorrect placement, nerve damage, bleeding, infection, superficial thrombus and deep vein thrombus Alternatives discussed: Delayed treatment and no treatmentUniversal protocol: Procedure explained and questions answered to patient or proxy's satisfaction: yes Relevant documents present and verified: yes Test results available and properly labeled: yes Imaging studies available: yes Required blood products, implants, devices, and special equipment available: yes Site/side marked: yes Immediately prior to procedure, a time out was called: yes Patient identity confirmed: Verbally with patient, arm band and hospital-assigned identification numberPre- procedure details: Hand hygiene: Hand hygiene performed prior to insertion Sterile barrier technique: All elements of maximal sterile technique followed Skin preparation: 2% chlorhexidine Skin preparation agent: Dried prior to procedure Anesthesia(see MAR for exact dosages): Anesthesia method: Local infiltration Local anesthetic: Lidocaine 1% w/o epi Route administered: SubcutaneousMidLine Placement Details (Will create an LDA): Patient position: Flat Vessel Size (mm): 4 Indication: Poor venous access Location: Left basilic Device Type: Non-valved Catheter Lumen(s): Double lumen Catheter size: 5 FrMidLine Characteristics: Catheter Brand: Transerv midline External Catheter Length (cm): 0 Internal Catheter Length (cm): 12 Total Catheter Length (cm): 12 Catheter Lot Number: [id number] Catheter Expiration Date: 03/04rocedure details: Landmarks identified: yes Ultrasound guidance: yes Sterile ultrasound techniques: Sterile gel and sterile probe covers were used Number of attempts: 1 Number of MidLine kits used during procedure: 1 Extra guide wire required?: No Purpose of procedure: Midline Placement Patency/Placement: Flushes without difficulty, flushed with 10 mL normal saline, positive blood return, injection cap placed and ultrasound MidLine placed utilizing ultrasound-guided Modified Seldinger Technique: Yes Dressing/Securement: Catheter securement device and antimicrobial dressing applied Blood Loss Amount: Less than 20 mLPost-procedure details: Post- procedure: Dressing applied Patient tolerance of procedure: Tolerated well, no immediate complicationsEast [place] MethodistXR Chest 1 Vw [id number] 06:10:31Hm Interface, Radiology Results Incoming - 07/23/2020 6:13 AM CDT EXAMINATION: XR CHEST 1 VW PORTABLECLINICAL HISTORY: Post-op surgeryCOMPARISON: To previous examination from 07/22/2020IMPRESSION:Changes related to midline sternotomy are present. Left atrial appendage occlusion clip is present.Right IJ catheter extends to the superior vena cava.The cardiomediastinal silhouette is enlarged.Some minimal atelectatic changes in the right lung base are present. The lungs otherwise are clear.A significant pleural effusion is not present.Thereis no evidence of pneumothorax.1D2RAD_PS05[facility] MethodistSurgical pathology [id number] 18:17:55 Test Item Value Reference Range Interpretation Comments Case number (test code = [id number]) Surgical pathology See link below for report (test code = PDF Lab Report [id number]) Result status (test code This is Final Report = [id number]) for [id number] Ray MethodistXR Abdomen 1 Vw [id number] 17:40:44Hm Interface, Radiology Results 07/22/2020 5:43 PM CDT Examination: XR ABDOMEN 1 VW PORTABLEClinical history: "Abdominal pain fever post-op" Comparison: None IMPRESSION: The bowel gas pattern is nonspecific. Mild bilateral lower lung atelectasis and/or infiltrates are seen. The imaged bones appear guadalupe degenerative. Atrial appendage occlusion device is seen. 1D2RAD_PS07[facility] MethodistUrine culture 2020-07-21 11:58:33 Test Item Value Reference Range Interpretation Comments Urine culture (test SEE COMMENT Bacteriu jessica screen code = [id number]) negative. Ray MethodistLine/Drain [id number] 13:46:33Manny Alex NP 07/20/2020 1:50 PMLine/Drain Removal Date/Time: 07/20/2020 1:46 PMPerformed by: Manny Alex NPAuthorized by: Manny Alex NP Pre-procedure details: Line or drain removed: Chest tube Indication(s) for removal: Treatment completed Patient position: SupineChest Tube Removal: Chest tube removed from suction: Yes Sutures re tied: Yes Removal procedure: Number of people performing procedure: 1 Catheter intact?: Yes Insertion site: No redness, no swelling and no drainage Breath held: Yes Pressure applied to site?: Yes Number of minutes pressure applied: 5 Dressing applied:: 4x4 sterile gauze and occlusive Specimen(s): None Patient tolerance of procedure: Patient tolerated the procedure well with no immediate complications Comments: Noted CT clotted and once it was removed old blood started to drain with cough or movementEast [place]field MethodistPrepare [id number] 16:22:00 Test Item Value Reference Range Interpretation Comments Product name (test code Red Blood Cells -1, = 25) Leukored Unit number (test code [id number] = [id number]) Product code (test code V7163Q66 = 3092) Dispense status (test Returned to not code = 24) transfused Blood expiration date (test code = 302) Blood type code (test 6200 code = 308) Blood type (test code = A POSITIVE 1314) Compatibility (test Compatible code = 6400) [facility]xhcgvjpcZysxvh7194-76-15 15:14:25Abel Adkins MD 07/19/2020 3:15 PMAirway Location: OR Performed by: anesthesiologist and anesthesia residentAnesthesiologist: Abel Adkins MDResident/RADIO INSTALLER AUTOMOBILE/AA: Bahman Fay MDAuthorizedby: Abel Adkins MD Urgency: ElectiveDifficult Airway: No Preoxygenated with 100% O2: Yes Mask Ventilation: Not attemptedFinal Airway Type: Endotracheal airwayFinal Endotracheal Airway: ETTCuffed: Yes Technique Used: Direct laryngoscopyDevices/Methods Used in Placement: Intubating styletInsertion Site: OralBlade Type: MacintoshLaryngoscope Blade/Videolaryngoscope Blade Size: 3ETT Size (mm): 7.0Cuff at minimum occlusion pressure: Yes Measured from: LipsETT to Lips (cm): 20Placement V erified by: CO2 detection Laryngoscopic view: Grade I - full view of glottisRapid Sequence Induction (RSI): No Modified RSI: No Number of Attempts at Approach: 1[place] MethodistArterial blood gas, [id number] 15:12:22 Test Item Value Reference Range Interpretation Comments pH, arterial (test code 7.31 7.35-7.45 L = 2744-1) pCO2, arterial (test 47 See_Comment H [Autom ated message] code = 2018-10) The system [facility] generated this result transmitted ref erence range: 35 - 45 mmHg. The reference r ekaterina was not used to interpret this result as normal/abnor mal. pO2, arterial (test code 274 See_Comment H [A utomated message] = 2703-7) The system [facility] generated this result transmitted ref erence range: 80 - 90 mmHg. The reference r ekaterina was not used to interpret this result as normal/abnor mal. Temperature, Celsius 36.3 Degrees C (test code = 8310-5) O2 saturation, arterial 99 % 95-100 (test code = 2708-6) pH, arterial corrected 7.32 (test code = 88511-1) pCO2, arterial corrected 45 mmHg (test code = 69207-5) pO2, arterial corrected 271 mmHg (test code = 33754-2) Base excess, arterial -3 See_Comment L [Auto mated message] (test code = 1924-7) The [facility] tem which generated this result transmitted ref erence range: -2 - 2 m Eq/L. The reference r ekaterina was not used to interpret this result as normal/abnor mal. Lab Interpretation (test Abnormal code = 25010-5) Ray MethodistGlucose level, [id number] 15:12:22 Test Item Value Reference Range Interpretation Comments Glucose, syringe (test code = 150 mg/dL 65-99 H 2345-7) Lab Interpretation (test code = Abnormal 81172-0) Ary MethodistHemoglobin, [id number] 15:12:22 Test Item Value Reference Range Interpretation Comments Hemoglobin, syringe (test code = 11.2 g/dL 12.0-16.0 L 718-7) Lab Interpretation (test code = Abnormal 48956-9) Ray MethodistPotassium, [id number] 15:12:22 Test Item Value Reference Range Interpretation Comments Potassium, syringe 3.9 See_Comment [Automat ed message] The (test code = 2007) system [facility] generated this result tra nsmitted reference range : 3.5 - 5.0 mEq/L. The refe rence range was not used to interpret this result as normal/abnormal . Ray MethodistSodium level, [id number] 15:12:22 Test Item Value Reference Range Interpretation Comments Sodium, syringe (test 138 See_Comment [Auto mated message] The code = 2947-0) system which generated this result tra nsmitted reference range : 135 - 148 mEq/L. The refe rence range was not used to interpret this result as normal/abnormal . Cory MethodistLactic acid, [id number] 11:09:28 Test Item Value Reference Range Interpretation Comments Lactic acid, syringe (test code = 0.9 mmol/L 0.5-2.2 51232-1) Cory [id number] 10:14:09Abel Adkins MD 07/19/2020 10:17 AMProcedure Performed: RONEL Start Time: End Time: Preanesthesia Checklist:Patient identified, IV assessed, risks and benefits discussed, monitors and equipment assessed, procedure being performed at surgeon's request, anesthesia consent obtained. General Procedure InformationDiagnostic Indications for Echo: assessment of ascending aorta, assessment of surgical repair and hemodynamic monitoringPhysician Requesting Echo: Gm Taveras MDLocation performed: ORIntubatedBite block not placedHeart visualizedProbe Insertion: EasyProbe Type:MultiplaneModalities: Color flow mapping, 2D only, continuous wave Doppler and pulse wave Doppler Echocardiographic and Doppler Measurements Ventricles Right Ventricle:Cavity size normal. Hypertrophynot present. Thrombus not present. Global function normal. Left Ventricle:Cavity size normal. Hypertrophy not present. Thrombus not present. Global Function normal. Valves Aortic Valve:Annulus normal. Stenosis not present. Regurgitation absent. Leaflets normal. Leaflet motions normal. Mitral Valve:Annulus normal. Stenosis moderate. Regurgitation +2. Leaflet motions restricted. Specific leaflet segments with abnormal motions are described in the following comments: posterior leaflet Tricuspid Valve:Annulus dilated. Stenosis not present. Regurgitation +4. Leaflets normal. Leaflet motions normal. Pulmonic Valve:Annulus normal. Stenosis not present. Regurgitation absent. Aorta Ascending Aorta:Size normal. Dissection not present. Plaque thickness less than 3 mm. Mobile plaque not present. Aortic Arch:Size normal. Dissection not present. Plaque thickness less than 3 mm. Mobile plaque not present. Descending Aorta:Size normal. Dissection not present. Plaque thickness less than 3 mm. Mobile plaque not present. Atria Right Atrium:Size dilated. Spontaneous echo contrast not present. Thrombus not present. Tumor not present. Device not present. LeftAtrium:Size dilated. Spontaneous echo contrast not present. Thrombus not present. Tumor not presen t. Device not present. Left atrial appendage normal. Septa Atrial Septum:Intra-atrial septal morphology normal. Ventricular Septum:Intra- ventricular septum morphology normal. Other FindingsPericardium: normalPleural Effusion: nonePulmonary Arteries: normalPulmonary Venous Flow: normal Anesthesia InformationPerformed PersonallyAnesthesiologist: Abel Adkins MD Echocardiogram Comments: S/P MVR, tricuspid repair NICKOLAS occlusionNo perivalvular leakTricuspid valve with no regurgitationLAA is occluded No pericardial effusionNormal RV/LV post pumpNo disssection Findings discussed with surgeonAuthorized by: Abel Adkins MDWashington County Memorial Hospitalvictoriano MethodistPA [id number] 08:34:35Abel Adkins MD 07/19/2020 10:12 AMPA catheter Patient Location: ORStart Time: 07/19/2020 8:34 AMEnd Time: 07/19/2020 8:34 AM Performed by: global consumer sector vice president and anesthesiologistAnesthesiologist: Abel Adkins, CARLesident/RADIO INSTALLER AUTOMOBILE/AA: Bahman Fay MDAuthorized by: Abel Adkins MD Preprocedure: patient identified, IV checked, site and side verified, risks and benefits discussed, procedure verified, surgical consent complete, patient position confirmed, monitors and equipment checked, pre-op evaluation complete and timeout performed prior to procedure MSBT: antiseptic used, all elements of maximal sterile barrier technique followed, hand hygiene performed, cap/gown used by other personnel and solutions labeled Procedure details: PA Catheter Type: Oximetric and CCOPA Catheter Size:8PA Catheter Side: RightPA Catheter Site: Internal jugularPA Catheter secured at: 50 cmPA Catheter placed: PA Catheter placed without difficulty Waveform: PA Catheter wave confirmed Ports flushed:All ports flushed pre-procedure Balloon checked: Balloon checked prior to insertion Post-procedure: Patient tolerance: Patient tolerated the procedure well with no immediate complicationsWashington County Memorial Hospitalvictoriano MethodistCentral line 2020-07-19 08:33:37Abel Adkins MD 07/19/2020 10:13 AMCentral line Patient Location: ORStart Time: 07/19/2020 8:33AMEnd Time: 07/19/2020 8:33 AM Performed by: global consumer sector vice president and anesthesiologistAnesthesiologist: Abel Adkins, Dimitri/JZALYN/AA: Bahman Fay, SHAJIuthorized by: Abel Adkins MD Preprocedure:patient identified, IV checked, site and side verified, risks and benefits discussed, procedure verified, surgical consent complete, patient position confirmed, monitors and equipment checked, pre-op evaluation complete and timeout performed prior to procedure MSBT: antiseptic used during central venous catheter insertion, all elements of maximal sterile barrier technique followed, hand hygiene performed prior to central venous catheter insertion, cap/gown used by other personnel during central venous catheter insertion, solutions labeled and all ports not used during insertion clamped Indications: Indications: Central pressure monitoring and vascular accessAnesthesia: Anesthesia: GeneralProcedure details: Patient position: Trendelenburg Catheter Type: Triple lumen Catheter Size: 9 Fr Catheter Site: internal jugular vein Catheter site laterality: Right Ultrasound guidance used: Yes Ultrasound image saved: Yes Number of attempts: 1 Successful placement: Yes Guidewire removal: Guidewire removal is confirmed Guidewire removal witnessed by: Bahman Fay, MICHELLEost-procedure: Post-procedure: line sutured, sterile dressing applied per protocol and ports flushed with saline Post-procedure: Blood cleaned with CHG and sterile caps on all hubs Assessmen t: Blood return through all ports and free fluid flow Patient tolerance: Patient tolerated the procedure well with no immediate complicationsEast [place] MethodistArterial [id number] 08:32:57Bahman Fay MD 07/19/2020 8:33 AMArterial line Patient Location: ORStart Time: 07/19/2020 8:33 AMEnd Time: 07/19/2020 8:33 AM Performed by: anesthesia residentAnesthesiologist: JinW. Jed, Dimitri/JAZLYN/AA: Bahman Fay, SHAJIuthorized by: Abel Adkins MD Pre-procedure: patient identified, IV checked, site and side verified, risks and benefits discussed, procedure verified, surgical consent complete, patient position confirmed, monitors and equipment checked, pre-op evaluation complete and timeout performed prior to procedure MSBT: antiseptic used, all elements of maximalsterile barrier technique followed, hand hygiene performed, cap/gown used by other personnel and solutions labeled Indications: Indications: multiple ABGs and hemodynamic monitoring Anesthesia: An esthesia: GeneralProcedure Details: Arterial Line placement: Placed pre- induction Line placement site: RadialLine placement side: Right Arterial line gauge: 20 GNumber of attempts: 1 Ultrasound guidance used: Yes Post- procedure: Post-procedure: Sterile dressing applied Post procedure ci rculation, sensation, movement: Normal Patient tolerance: Patient tolerated the procedure well with no immediate complicationsEast [place] MethodistAirway 2020-07-19 08:32:07Bahman Fay MD 07/19/2020 8:32 AMAirway Date/Time: 07/19/2020 8:32 AM Location: OR Performed by: anesthesia residentAnesthesiologist: Abel Adkins, MDResident/RADIO INSTALLER AUTOMOBILE/AA: Bahman Fay MDAuthorized by: Abel Adkins MD Urgency: ElectiveDifficult Airway: No Preoxygenated with 100% O2: No C-spine Precautions Maintained Throughout: No Mask Ventilation: Easy maskFinal Airway Type: Endotracheal airwayFinal Endotracheal Airway: ETT - double lumen leftCuffed: Yes Technique Used:Direct laryngoscopyDevices/Methods Used in Placement: Intubating styletInsertion Site: OralBlade Type: MacintoshLaryngoscope Blade/Videolaryngoscope Blade Size: 3ETT Double Lumen (fr): 37Cuff at minimum occlusion pressure: Yes Measured from: GumsETT to Gums (cm): 29Placement Verified by: CO2 detection and direct visualization Laryngoscopic view: Grade I - full view of glottisRapid Sequence Induction (RSI): No Modified RSI: No Number of Attempts at Approach: 1[place] [id number]-5 (COVID-19) RNA [Presence] in Respiratory specimen by ANIBAL with probe [id number] 19:06:02 Test Item Value Reference Range Interpretation Comments SARS-CoV-2 (COVID-19) RNA Not detected Not-Detected [Presence] in Respiratory specimen by ANIBAL with probe detection (test code = 06736-9) ECG Pre/Post [id number] 15:27:38 Test Item Value Reference Range Interpretation Comments Ventricular rate (test 90 code = 253) Atrial rate (test code 64 = 255) QRSD interval (test 90 code = 260) QT interval (test code 392 = 264) QTC interval (test 479 code = 265) QRS axis 1 (test code 51 = 268) T wave axis (test code 227 = 270) EKG impression (test Atrial fibrillation code = 273) with premature ventricular or aberrantly conducted complexes-ST & T wave abnormality, consider inferolateral ischemia or digitalis effect-Prolonged QT-Abnormal ECG-No previous ECGs available-Electronicall y Signed By Sammy Zuniga MD ([id number]) on 07/14/2020 3:27:37 PM [place] [facility], diffusion, lung [id number] 11:16:00 Test Item Value Reference Range Interpretation Comments FEV1 Pre (test code = 1.63 L 2.29-3.65 5348) FVC Pre (test code = 2.37 L 3.05-4.66 5354) FEV1/FVC % Pre (test 68.67 % 67.63-87.22 code = 5361) FEF 25-75% Pre (test 0.89 L/s 1.08-3.96 code = 5547) PEF Pre (test code = 4.58 L/s 4.93-8.91 5367) DLCO Pre (test code = 13.29 See_Comment [Auto mated message] 5150) The system [employer] generated this result transmitted ref erence range: 16.82 - 29.82 ml/(min*mmHg). The reference range was not used to interpr et this result as normal/abnormal . DLCOc Pre (test code = 13.29 See_Comment [Aut omated message] 2774) The system [employer] generated this result transmitted ref erence range: 16.82 - 29.82 ml/(min*mmHg). The reference range was not used to interpr et this result as normal/abnormal . DL/VA Pre (test code = 3.37 See_Comment [Aut omated message] 9638) The system [employer] generated this result transmitted ref erence range: 2.85 - 5 .48 ml/(min*mmHg*L) . The reference range was not used to interpr et this result as normal/abnormal . KCOc SB Pre (test code 3.37 See_Comment [Aut omated message] = 5535) The system [employer] generated this result transmitted ref erence range: 2.85 - 5 .48 ml/(min*mmHg*L) . The reference range was not used to interpr et this result as normal/abnormal . VA SB Pre (test code = 3.94 L 4.78-6.98 5444) Hb Pre (test code = 13.4 g(Hb)/dL 5540) VC Pre (test code = 2.31 L 3.05-4.66 5374) ERV Pre (test code = 1.52 L 0.81-0.81 5381) FRCpl Pre (test code = 3.1 L 2.17-3.81 5388) IC Pre (test code = 0.79 L 2.57-2.57 5395) RV Pre (test code = 1.58 L 1.60-2.76 5402) RV % TLC Pre (test 40.63 % 30.79-49.97 code = 5409) TLC Pre (test code = 3.89 L 4.79-6.76 5416) Raw Pre (test code = 3.98 See_Comment [Autom ated message] 5507) The system [employer] generated this result transmitted ref erence range: 3.06 - 3 .06 cmH2O*s/L. The reference range was not used to interpr et this result as normal/abnormal . R0.5IN Pre (test code 2.31 See_Comment [Auto mated message] = 5514) The system [employer] generated this result transmitted ref erence range: 3.06 - 3 .06 cmH2O*s/L. The reference range was not used to interpr et this result as normal/abnormal . sR0.5IN Pre (test code 8.62 cmH2O*s = 5521) sGaw Predicted (test 0.07 See_Comment [Autom ated message] code = 5528) The system [employer] generated this result transmitted ref erence range: 0.10 - 0 .10 1/(cmH2O*s). Th e reference range was not used to interpr et this result as normal/abnormal . FEV1 Predicted (test 2.97 code = 5302) FEV1 LLN (test code = 2.29 5347) FEV1 % Pre of 54.9 % Predicted (test code = 5308) FVC Predicted (test 3.86 code = 5307) FVC LLN (test code = 3.05 5353) FVC % Pre of Predicted 61.5 % (test code = 5355) FEV1/FVC % Predicted 77 (test code = 5359) FEV1/FVC % LLN (test 68 code = 5360) FEV1/FVC % Pre of 88.7 % Predicted (test code = 5362) FEF 25-75% Predicted 2.52 (test code = 5546) FEF 25-75% LLN (test 1.08 code = 5545) FEF 25-75% % Pre of 35.3 % Predicted (test code = 5548) PEF Predicted (test 6.92 code = 5310) PEF LLN (test code = 4.93 5366) PEF % Pre of Predicted 66.2 % (test code = 5368) VC Predicted (test 3.86 code = 5372) VC LLN (test code = 3.05 5373) VC % Pre of Predicted 60 % (test code = 5375) ERV Predicted (test 0.81 code = 5379) ERV LLN (test code = 0.81 5380) ERV % Pre of Predicted 187.7 % (test code = 5382) FRCpl % Predicted 2.99 (test code = 5386) FRCpl % LLN (test code 2.17 = 5387) FRCpl % Pre of 103.7 % Predicted (test code = 5389) IC Predicted (test 2.57 code = 5393) IC LLN (test code = 2.57 5394) IC % Pre of Predicted 30.9 % (test code = 5396) RV Predicted (test 2.18 code = 5400) RV LLN (test code = 1.6 5401) RV % Pre of Predicted 72.6 % (test code = 5403) RV % TLC Predicted 40 (test code = 5407) RV % TLC LLN (test 31 code = 5408) RV % TLC % Pre of 100.6 % Predicted (test code = 5410) TLC Predicted (test 5.78 code = 5414) TLC LLN (test code = 4.79 5415) TLC % Pre of Predicted 67.4 % (test code = 5417) Raw Predicted (test 3.06 code = 5505) Raw LLN (test code = 3.06 5506) Raw % Pre of Predicted 130 % (test code = 5508) R0.5IN Predicted (test 3.06 code = 5512) R0.5IN LLN (test code 3.06 = 5513) R0.5IN % Pre of 75.6 % Predicted (test code = 5515) sGaw Predicted (test 0.1 code = 5526) sGaw LLN (test code = 0.1 5527) sGaw % Pre of 66.1 % Predicted (test code = 5529) DLCO Predicted (test 23.32 code = 5421) DLCO LLN (test code = 16.82 5422) DLCO % Pre of 57 % Predicted (test code = 5424) DLCOc Predicted (test 23.32 code = 5428) DLCOc LLN (test code = 16.82 5429) DLCOc % Pre of 57 % Predicted (test code = 5431) DL/VA Predicted (test 4.17 code = 5435) DL/VA LLN (test code = 2.85 5436) DL/VA % Pre of 80.9 % Predicted (test code = 5438) KCOc SB Predicted 4.17 (test code = 5533) KCOc SB LLN (test code 2.85 = 5534) KCOc SB % Pre of 80.9 % Predicted (test code = 5536) VA SB Predicted (test 5.88 code = 5442) VA SB LLN (test code = 4.78 5443) VA SB % Pre of 67 % Predicted (test code = 5445) [facility] Chest W Contrast Abdomen W Contrast Pelvis W [id number] 18:32:55Hm Interface, Radiology Results 06/23/2020 6:36 PM CDT EXAMINATION: CT ANGIOGRAM CHEST ABDOMEN PELVIS W AND OR WITHOUT CONTRASTHISTORY: I34.0 Nonrheumatic mitral (valve) insufficiency, I34.2 Nonrheumatic mitral (valve) stenosis, to evalute Mitral and tricuspid valve diseaseTECHNIQUE: CT angiographic images of the chest, abdomen, and pelvis were obtained during intravenous administration of contrast. Multiple computerized reformatted images as well as 3-D volume rendered images were also obtained. CT imaging was performed with iterative reconstruction techniques and/or automated exposure control to reduce radiation dose. COMPARISON: None available.FINDINGS:CTA: Chest: *No acute aortic syndrome or thoracic aortic aneurysm. *Pulmonary arteries enlarged.*Moderate atherosclerotic calcification along the arch.Abdomen:*No acute aortic syndrome or AAA.*Focal 50% narrowing of proximal SMA from noncalcified thrombus (60 2B/92). Otherwise, no significant narrowing of visceral branches. 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 Moderate mixedemphysema with upper lung predominance.Pleural: No effusion or pneumothorax.Cardiovascular: Pronounced biatrial enlargement, with enlarged hypertrabeculated RV. No pericardial effusion. Mild calcified c oronary artery disease. Faint AV calcification.Mediastinum/Nodes: No thoracic lymphadenopathy. Liver: Normal size and contour. No suspicious lesion.Gallbladder/Biliary: Gallbladder contains stones. No intra- or extrahepatic bile duct dilatation.Spleen: Unremarkable.Pancreas: Unremarkable.Adrenal: Unremarkable.Kidneys: Symmetric. No hydronephrosis. No discrete mass. No renal or ureteral stone.Urogenital: Urinary bladder unremarkable.Vascular: Greater abdominal vasculature unremarkable. No abdominal aortic aneurysm.Bowel: No high-grade enterocolitis. No bowel obstruction. Mild sigmoid diverticulosis.Lymphatic/Peritoneal: No abdominal lymphadenopathy.Musculoskeletal: No acute or aggressive-appearing osseous lesion. Mild S-shaped scoliotic curvature with multilevel degenerative change.IMPRESSION:1.Pronounced bi-atrial enlargement and morphologic changes suggesting chronically increase pulmonary arterial/right heart pressures.2.Short focal dissection of the right common femoral artery.3.Moderate (approximately 50%) narrowing of SMA origin from noncalcified plaque.4.[id number] MethodistVenous Doppler Legs Bilateral 2020-03-23 15:26:01Ejection FractionSLEH ECHO HEARTLAB MKCKESSON CPACSRight Impression1. There is no deep venous [...] The bilateral venous systems were patent and compressiblewith no evidence of thrombus. The venous Doppler waveforms were phasic with respiration . Signature Velocities are measured in cm/s ; Diameters are measured in cm Interface, External Ris In - 03/23/2020 3:26 PM [facility] LAB - Lower Extremities DVT Study Demographics Patient Name CELSA LORENZO Date of Study 03/22/2020 MIKALA Age 65 Visit Number [id number] Gender Female Accession Number [id number] Date of 1955 Referring Latoya Stiles Room Number Physician Physical Instructor Kate Cisneros [facility] Interpreting Physician RITA Rascon ProcedureType of Study: Veins: Lower Extremities DVT Study, VENOUS DOPPLER LEG, BILATERAL. Indications for Study:Mitral Regurgitation .Patient Sta tus:Routine.Study Location:Vascular Lab.Technical Quality:Adequate visualization.Risk FactorsHistoryof Disease+ +----+ --+!Diagnosis !Date!Comments !+ +----+ +!History/Risk Factors: ! !Mitral valve regurg !+ +----+ +Imp ressionsRight Impression1. There is no deep venous obstruction in the common femoral, profundafemoral, femoral,popliteal, posterior tibial or peroneal veins.2. There is no superficial venous obstruction in the great saphenous vein.Left Impression1. There is no deep venous obstruction in the common femoral, profundafemoral, femoral, popliteal, posterior tibial or peroneal veins.2. There is no superficial venousobstruction in the great saphenous vein. Conclusions Summary Venous duplex imaging and compressionof the bilateral lower extremities were performed. The veins were adequately visualized. The bilateral venous systems were patent and compressible with no evidence of thrombus. The venous Doppler waveforms were phasic with respiration . Signature Velocities are measured in cm/s ;Diameters are measured in [facility] [id number] 11:30:00Mariah Carbajal, JEREMY, PANEL MACHINE SETTER 03/22/2020 3:14 [facility] PFT CHARTING REPORT Infection Control/Hand Hygiene procedures followed throughout the encounter with patient: YesPatient Identification Method: Patient name verified on armband, and Medical record on armband, Is the order complete?: Yes Account ID#: [id number] Name: Celsa Lorenzo Birthdate: 1955 Age: 65 y.o. Sex: female Admission Date: 03/22/2020 Patient Status: Outpatient Reasons/Symptom for having the Test?: surgical clearance Type of study/treatment ordered by physician: Spirometry No results found for: HGB Ranges: Adult Male 13 - 16.8 g/dl Adult Female 12 - 15 g/dl 6 Minute Walk (read only) 03/03/2020 03/22/2020 Pulse 80- SpO2 - 96 Study Date: 03/22/20 Study Time: 1232 ASSESSMENT History & Physical Mode of Arrival: Ambulatory Pulse: 8319 Resp: 21 SPO2: 96 % on RA Pain Assessment Pain:None TESTING/THERAPEUTICS Medications ordered or required for procedure: N/A PT EDUCATION/INSTRUCTIONS Barriers to learning: No known barriers to learning. Learning needidentified: Yes, Patient/Family/Guradian was informed of the ordered study by the physician Barriersto performing study or treatment: Patient has no known disability to perform the study or treatment.DISCHARGE The study was completed in accordance with the physician's order and patient released from the lab without adverse outcome.[facility] Center[facility]ch[facility] [id number] 12:16:00Interface, Radiology Results In - 02/17/2020 12:18 PM CST Transesophageal Echo Report [id number], [place], [place] [address] Pat.Name: CELSA LORENZO Pat.ID: [id number] .Date: 02/17/2020 Refer.MD: SATHISH HARDY MD Exam Time: 9:22:00 AM Study Type:RONEL Height: 69in Weight: 196lb BSA: 2.05 m2 Age: 10 1955,65Y Sex: FEMALE BP: 129/99 HR: 90 bpm Sonogrphr: Flori Lama MD [facility]. Stat.:Outpatient [facility] - 4: [id number] Study Status:Final Echo Event ID:[id number] Order ID: [id number] Reason for Study:Clinical symptoms of heart failure, Pu lmonaryHypertension, SOB, suspected cardiac etiology, Valvulardisease-initial evalHistory / Clinical:Atrial Fibrillation, COPD, Dyspnea On Exertion,Pulmonary Hypertension, Valvular Heart Disease; Mitral Stenosis,Valvular Heart Disease; Tricuspid RegurgitationProcedures: 3D Echo, Transesophageal Echo with Colorflow DopplerRace: SUMMARY:-- Moderate thickening of mitral leaflets. Valve appears rheumatic.Thickened and fused chordae.Moderate to severe mitral stenosis. Moderate to severe mitralregurgitation.LA volume is enlarged. No thrombus or mass is visualized in the LA Jeff appendage.Spontaneous echo con trast is seen in the LA/LA appendage. FINDINGS: RONEL: The attending retail interior designer performed the RONEL procedure and was present [...] volume is enlarged. No thrombus or mass isvisualized in the LA or LA appendage. Spontaneous echo contrast is seen in the LA/LA appendage.RA: RA volume is enlarged.AO: Aortic root diameter is normal in size. Moderate to severe atherosclerotic changes seen in the aortic arch and descending aorta.PE RI: No pericardial effusion.AV: Mild to moderate thickening [...] a mean RAP of 10 mmHg. RONEL: Anes thesia: Per Anesthesia ASA Class: 4Physician: Philippe Goldsmith M.D. Inspector And Sorter: Howard Farias RONEL BP HR Post RONEL BP HR 129/99 90 116/53 83Meds: Viscous xylocaine, Cetacaine spray to oropharynx, PerAnesthesiaComplications: None Condition: Stable MEASUREMENTS: DOPPLERMV Forward Flow MV pkVel 206.2 cm/s [...] 173.9 cm Signed 02/17/2020 12:16 Elina Goldsmith M.D.[facility]
[2020-09-16 01:08] LABS: Absolute Lymphocytes (CBC) 1.6 K/uL (0.7-4.9); Basophils % 0.5 % (0-1.3); Hematocrit 32.8 % (36.0-45.0); Lymphocytes % 11.8 % (15.3-44.8); MPV 8.5 fL (7.6-11.3); RBC Red Blood Cell Count 3.76 M/uL (3.86-4.86)
[2020-09-16 01:12] LABS: Albumin 3.4 g/dL (3.4-5.0); Bilirubin Direct 0.7 mg/dL (0-0.2); Potassium 4.3 mmol/L (3.5-5.1); Protein, Total 8.4 g/dL (6.4-8.2)
[2020-09-16] MEDS ORDERED: ONDANSETRON 4 MG/2 ML VIAL ONE (01:13)
[2020-09-16] MEDS ORDERED: MEPERIDINE HCL 25 MG/ML SYR ONE (01:14)
[2020-09-16] MEDS ORDERED: PANTOPRAZOLE 40 MG INJ ONE (01:14)
--- NOTE | 2020-09-16 04:12 | EDPHYS ---
Physician Documentation [facility] Name: Celsa Lorenzo Age: 65 yrs Sex: Female : 1955 Arrival Date: 09/16/2020 Time: 00:24 Bed 19 Private MD: ED Physician Geovany Barksdale HPI: 09/16 00:52 This 65 yrs old Female presents to ER via Wheelchair with complaints of rn Abdominal Pain. 00:52 The patient presents with abdominal pain in the epigastric area. Onset: The rn symptoms/episode began/occurred 1 week(s) ago. The symptoms do not radiate. Associated signs and symptoms: Pertinent positives: nausea, Pertinent negatives: fever, shortness of breath, vomiting blood. The symptoms are described as dull. Modifying factors: The symptoms are alleviated by nothing, the symptoms are aggravated by touching the area. Severity of pain: At its worst the pain was moderate in the emergency department the pain is unchanged. The patient has not experienced similar symptoms in the past. The patient has not recently seen a physician. Historical: - Allergies: 00:37 Betadine; em 00:37 Iodine; Topical only; em - PMHx: 00:37 ADD/ADHD; Atrial Fib; cardioversion; CHF; COPD; Hypertension; mitral valve stenosis; em pulmonary HTN; resp failure; Rheumatoid Arthritis; - PSHx: 00:37 Appendectomy; Tubal ligation; Heart stents; em - Immunization history:: Adult Immunizations up to date. - Social history:: Smoking status: Patient denies any tobacco usage or history of. - Family history:: not pertinent. - Hospitalizations: : No recent hospitalization is reported. ROS: 00:52 Constitutional: Negative for fever, chills, and weight loss, Eyes: Negative for injury, rn pain, redness, and discharge, Neck: Negative for injury, pain, and swelling, Cardiovascular: Negative for chest pain, palpitations, and edema, Respiratory: Negative for shortness of breath, cough, wheezing, and pleuritic chest pain, Abdomen/GI: + abd pain and nausea Back: Negative for injury and pain, : Negative for injury, bleeding, discharge, and swelling, MS/Extremity: Negative for injury and deformity, Skin: Negative for injury, rash, and discoloration, Neuro: Negative for headache, weakness, numbness, tingling, and seizure. Exam: 00:52 Constitutional: This is a well developed, well nourished patient who is awake, alert, rn appears uncomfortable Head/Face: Normocephalic, atraumatic. Eyes: Pupils equal round and reactive to light, extra-ocular motions intact. ENT: dry MM Cardiovascular: Tachycardic, irregular Respiratory: No increased work of breathing, no retractions or nasal flaring. Abdomen/GI: soft, + RUQ and epigastric tenderness Skin: Warm, dry MS/ Extremity: Pulses equal, no cyanosis. Neuro: Awake and alert, GCS 15 Vital Signs: 00:35 BP 107 / 63; Pulse 114; Resp 18; Temp 98.0(O); Pulse Ox 99% on R/A; Weight 88.45 kg; em Height 5 ft. 9 in. (175.26 cm); Pain 10/10; 03:32 BP 99 / 60; Pulse 110; Resp 16 S; Pulse Ox 97% on R/A; ad5 05:00 BP 105 / 74; Pulse 112; Resp 18; Pulse Ox 100% on R/A; ad5 05:51 BP 133 / 83; Pulse 107; Resp 18 S; Pulse Ox 100% on R/A; ad5 00:35 Body Mass Index 28.80 (88.45 kg, 175.26 cm) em MDM: 00:28 Patient medically screened. rn 02:54 ED course: Pt with marked improvement. rn 04:09 Differential diagnosis: cholecystitis, Cholelithiasis, gastritis, gastroesophageal rn reflux disease, pancreatitis, Peptic Ulcer Disease, choledocholithiasis. Data reviewed: vital signs, nurses notes, lab test result(s), radiologic studies, CT scan, and as a result, I will admit patient. Counseling: I had a detailed discussion with the patient and/or guardian regarding: the historical points, exam findings, and any diagnostic results supporting the discharge/admit diagnosis, lab results, radiology results, the need to transfer to another facility, for higher level of care, [facility] does not immediately have the required specialist. ED course: Accepted for transfer to [facility] for further w/u and eval.. 09/16 00:36 Order name: Basic Metabolic Panel; Complete Time: : rn 09/16 00:36 Order name: CBC with Diff; Complete Time: 18 rn 09/16 00:36 Order name: Hepatic Function; Complete Time: 01:18 rn 09/16 00:36 Order name: Lipase; Complete Time: :18 rn 09/16 05:18 Order name: SARS-COV-2 RT PCR EDMS 09/16 00:36 Order name: IV Saline Lock; Complete Time: 01:00 rn 09/16 00:36 Order name: CT Abd/Pelvis - IV Contrast Only rn 09/16 00:36 Order name: Labs collected and sent; Complete Time: 01:00 rn Administered Medications: 01:00 Drug: Zofran (Ondansetron) 4 mg Route: IVP; Site: left antecubital; jm8 02:35 Follow up: Response: No adverse reaction 8 01:00 Drug: Demerol (meperidine) 25 mg Route: IVP; Site: left antecubital; jm8 02:34 Follow up: Response: No adverse reaction 8 01:00 Drug: ProTONIX (pantoprazole) 40 mg Route: IVP; Site: right antecubital; jm8 02:34 Follow up: Response: No adverse reaction jm8 04:34 Drug: Zosyn (piperacillin-tazobactam) 3.375 grams Route: IVPB; Infused Over: 60 mins; ad5 Site: left antecubital; 05:41 Follow up: IV Status: Completed infusion; IV Intake: 100ml ad5 05:01 Drug: NS 0.9% 500 ml Route: IV; Rate: bolus; Site: left antecubital; ad5 05:51 Follow up: IV Status: Completed infusion; IV Intake: 500ml ad5 05:50 Drug: fentaNYL (PF) 25 mcg {Note: RASS 0.} Route: IVP; Site: left antecubital; ad5 05:52 Follow up: Response: No adverse reaction; RASS: Alert and Calm (0) ad5 Point of Care Testing: Guaiac: 02:11 Stool Guaiac: Negative; Stool Hemoccult Control: Pass; jm8 02:13 Stool Guaiac: Negative; Stool Hemoccult Control: Pass; rn Disposition: 09/16/20 04:11 Transfer ordered to [facility]. Diagnosis are Upper abdominal pain, unspecified, Choledocholithiasis. - Reason for transfer: Higher level of care. - Accepting physician is . - Condition is Stable. - Problem is new. - Symptoms have improved. Signatures: Dispatcher [employer] EDMatheus Emmanuel, RN Geovany Elizondo MD MD rn Malcaba, Joseph, RN RN jm8 Jose Manuel Barak ad5 Corrections: (The following items were deleted from the chart) 04:15 03:58 CORONAVIRUS+MR.LAB.BRZ ordered. EDAR EDAR 05:52 04:11 09/16/2020 04:11 Transfer ordered to [facility]. Diagnosis is Upper ad5 abdominal pain, unspecified; Choledocholithiasis. Reason for transfer: Higher level of care. Accepting physician is . Condition is Stable. Problem is new. Symptoms have improved. rn
--- NOTE | 2020-09-16 04:12 | ER ---
Nurse's Notes [facility] Jacy Name: Celsa Lorenzo Age: 65 yrs Sex: Female : 1955 Arrival Date: 09/16/2020 Time: 00:24 Bed 19 Private MD: Diagnosis: Upper abdominal pain, unspecified;Choledocholithiasis Presentation: 09/16 00:35 Chief complaint: Patient states: abdominal pain for 1 week, also reports nausea and em dark stools, denies vomiting or fever. Coronavirus screen: Client denies travel out of the [place] in the last 14 days. Ebola Screen: Patient negative for fever greater than or equal to 101.5 degrees Fahrenheit, and additional compatible Ebola Virus Disease symptoms Patient denies exposure to infectious person. Patient denies travel to an Ebola-affected area in the 21 days before illness onset. No symptoms or risks identified at this time. Initial Sepsis Screen: Does the patient meet any 2 criteria? HR > 90 bpm. No. Patient's initial sepsis screen is negative. Does the patient have a suspected source of infection? No. Patient's initial sepsis screen is negative. Risk Assessment: Do you want to hurt yourself or someone else? Patient reports no desire to harm self or others. Onset of symptoms was September 16, 2020. 00:35 Method Of Arrival: Wheelchair em 00:35 Acuity: MAXIMO 3 em Historical: - Allergies: 00:37 Betadine; em 00:37 Iodine; Topical only; em - PMHx: 00:37 ADD/ADHD; Atrial Fib; cardioversion; CHF; COPD; Hypertension; mitral valve stenosis; em pulmonary HTN; resp failure; Rheumatoid Arthritis; - PSHx: 00:37 Appendectomy; Tubal ligation; Heart stents; em - Immunization history:: Adult Immunizations up to date. - Social history:: Smoking status: Patient denies any tobacco usage or history of. - Family history:: not pertinent. - Hospitalizations: : No recent hospitalization is reported. Screenin:07 Abuse screen: Denies threats or abuse. Denies injuries from another. Nutritional jm8 screening: No deficits noted. Tuberculosis screening: No symptoms or risk factors identified. Fall Risk None identified. Assessment: 01:02 General: Appears in no apparent distress. uncomfortable, Behavior is calm, cooperative, jm8 appropriate for age. Pain: Complains of pain in abdomen Pain currently is 10 out of 10 on a pain scale. Quality of pain is described as sharp, shooting, Noted to be grimacing, guarding, Also complains of nausea. Neuro: No deficits noted. Neuro: Level of Consciousness is awake, alert, obeys commands, Oriented to person, place, time. Cardiovascular: No deficits noted. Respiratory: No deficits noted. Airway is patent Trachea midline Respiratory effort is even, unlabored, Respiratory pattern is regular, symmetrical. GI: Abdomen is round Bowel sounds present X 4 quads. Abd is soft Abdomen is tender to palpation Reports lower abdominal pain, upper abdominal pain, rectal bleeding, nausea, vomiting, black stools. : No deficits noted. No signs and/or symptoms were reported regarding the genitourinary system. EENT: No deficits noted. No signs and/or symptoms were reported regarding the EENT system. Derm: No deficits noted. No signs and/or symptoms reported regarding the dermatologic system. Musculoskeletal: No deficits noted. No signs and/or symptoms reported regarding the musculoskeletal system. 03:33 Reassessment: Patient appears in no apparent distress at this time. Patient and/or ad5 family updated on plan of care and expected duration. Pain level reassessed. Patient is alert, oriented x 3, equal unlabored respirations, skin warm/dry/pink. Patient states symptoms have improved. 04:42 Reassessment: Pt report to EDWINA Beth at receiving facility. Questions/concerns ad5 addressed. Consent for transfer completed at this time and EMS notified of need for pt transport. NAD noted at this time, will continue to monitor. Vital Signs: 00:35 BP 107 / 63; Pulse 114; Resp 18; Temp 98.0(O); Pulse Ox 99% on R/A; Weight 88.45 kg; em Height 5 ft. 9 in. (175.26 cm); Pain 10/10; 03:32 BP 99 / 60; Pulse 110; Resp 16 S; Pulse Ox 97% on R/A; ad5 05:00 BP 105 / 74; Pulse 112; Resp 18; Pulse Ox 100% on R/A; ad5 05:51 BP 133 / 83; Pulse 107; Resp 18 S; Pulse Ox 100% on R/A; ad5 00:35 Body Mass Index 28.80 (88.45 kg, 175.26 cm) em ED Course: 00:24 Patient arrived in ED. bp1 00:28 Geovany Barksdale MD is Attending Physician. rn 00:37 Triage completed. em 00:37 Arm band placed on. em 01:00 Inserted saline lock: 20 gauge 22 gauge in left antecubital area, using aseptic jm8 technique. Accessed ,peripheral vein via ultrasound, utilizing static ultrasound technique. 01:07 Patient has correct armband on for positive identification. Bed in low position. Call jm8 light in reach. Side rails up X2. Adult w/ patient. 01:58 CT Abd/Pelvis - IV Contrast Only In Process Unspecified. EDMS 03:26 Barak Richard is Primary Nurse. ad5 03:34 initiated a transfer with Jina from the [facility]/ Per Jina she will eb have to decline at the following [facility]'s due to being at capacity. [facility]. She will call and check availability at the [facility] and will nicolas us back. 03:54 Initiated a transfer with Paramjit from the [facility]. eb 04:00 COVID swab sent to lab. em 04:[address] Herrera the hospitalist weapons and tactics instructor for [facility] with Dr. Barksdale for eb patient transfer consultation. 04:08 administrative approval given by Aileen Johnson Director Of Email Marketing/ Patient has been eb accepted to [facility] pending a bed. Dr. Anand Euceda has accepted the patient in transfer/ once they receive the face sheet and covid results she will call back with the room assignment. 05:42 No provider procedures requiring assistance completed. Patient transferred, IV remains ad5 in place. Administered Medications: 01:00 Drug: Zofran (Ondansetron) 4 mg Route: IVP; Site: left antecubital; jm8 02:35 Follow up: Response: No adverse reaction jm8 01:00 Drug: Demerol (meperidine) 25 mg Route: IVP; Site: left antecubital; jm8 02:34 Follow up: Response: No adverse reaction jm8 01:00 Drug: ProTONIX (pantoprazole) 40 mg Route: IVP; Site: right antecubital; jm8 02:34 Follow up: Response: No adverse reaction jm8 04:34 Drug: Zosyn (piperacillin-tazobactam) 3.375 grams Route: IVPB; Infused Over: 60 mins; ad5 Site: left antecubital; 05:41 Follow up: IV Status: Completed infusion; IV Intake: 100ml ad5 05:01 Drug: NS 0.9% 500 ml Route: IV; Rate: bolus; Site: left antecubital; ad5 05:51 Follow up: IV Status: Completed infusion; IV Intake: 500ml ad5 05:50 Drug: fentaNYL (PF) 25 mcg {Note: RASS 0.} Route: IVP; Site: left antecubital; ad5 05:52 Follow up: Response: No adverse reaction; RASS: Alert and Calm (0) ad5 Point of Care Testing: Guaiac: 02:11 Stool Guaiac: Negative; Stool Hemoccult Control: Pass; jm8 02:13 Stool Guaiac: Negative; Stool Hemoccult Control: Pass; nutrition intern: 05:41 IV: 100ml; Total: 100ml. ad5 05:51 IV: 500ml; Total: 600ml. ad5 Outcome: 04:11 ER care complete, transfer ordered by . rn 05:51 Transferred by ground EMS to [facility]. ad5 05:51 Condition: stable 05:51 Instructed on the need for admit, Demonstrated understanding of instructions. 05:52 Patient left the ED. ad5 Signatures: Dispatcher [employer] Matheus Cotton, RN Geovany Elizondo MD MD rn Botello, Elizabeth eb Paniauga, Brittany bp1 Malcaba, Joseph, RN RN jm8 Davidson, Andrea ad5
[2020-09-16] MEDS ORDERED: PIPER/TAZO/NS 3.375gm 3.375 GM/100 ML BAG ONE (04:33)
[2020-09-16] MEDS ORDERED: NA CHLORIDE 0.9% 500 ML ONE (05:09)
[2020-09-16 05:58] VITALS: TEMP 98
[2020-09-16 06:02] VITALS: O2SAT 100
[2020-09-16 06:03] VITALS: BP 133/83
[2020-09-16] MEDS ORDERED: FENTANYL CITR 100 MCG/2 ML ONE (06:07)
--- NOTE | 2020-09-16 12:19 | RAD REPORT ---
EXAM DESCRIPTION: CT - Abdomen Pelvis W Contrast - 09/16/2020 4:17 am CLINICAL HISTORY: The patient is 65 years old and is Female; EPIGASTRIC PAIN TECHNIQUE: Axial computed tomography images of the abdomen and pelvis with intravenous contrast. S agittal and coronal reformatted images were created and reviewed. This CT exam was performed using one or more of the following dose reduction techniques: automated exposure control, adjustment of t he mA and/or kV according to patient size, and/or use of iterative reconstruction technique. COMPARISON: Angio aorta April 18, 2019. FINDINGS: Lung bases: Unremarkable. No mass. No consolidation. ABDOMEN: Liver: Unremarkable. No mass. Gallbladder and bile ducts: There is the suggestion of gallbladder wall thickening. The common bile duct is mildly distended to 10 mm. in diameter. No calcified stones. Pancreas: Unremarkable. No mass. No ductal dilation. Spleen: Unremarkable. No splenomegaly. Adrenals: Unremarkable. No mass. Kidneys and ureters: Unremarkable. No solid mass. No hydronephrosis. Stomach and bowel: Unremarkable. No obstruction. No mucosal thickening. PELVIS: Appendix: No findings to suggest acute appendicitis. Bladder: Unremarkable. No mass. Reproductive: Unremarkable as visualized. ABDOMEN and PELVIS: Intraperitoneal space: Unremarkable. No free air. No significant fluid collection. Bones/joints: 50% depression of the anterior inferior endplate of L1. Disc space narrowing with degenerative endplate changes most prominent at L5-S1. No acute fracture. No dislocation. Soft tissues: Unremarkable. Vasculature: Scattered atherosclerotic vascular calcifications including at the origins of the m esenteric and renal arteries. No abdominal aortic aneurysm. Lymph nodes: Unremarkable. No enlarged lymph nodes. IMPRESSION: 1. There is the suggestion of gallbladder wall thickening. Correlate with right uppe r quadrant ultrasound if clinically indicated. 2. The common bile duct is mildly distended to 10 mm. in diameter. Electronically signed by: Luis Hanna MD 09/16/2020 3:19 AM CDT Due to temporary technical issues with the PACS/Fluency reporting system, reports are being signed by the in house radiologist without review as a courtesy to ensure prompt reporting. The interpreting r adiologist is fully responsible for the content of the report.
== END 2020-09-16 05:52 | disposition short-term general hospital (02) ==
LOC: ER 00:22
DX: K80.50 Calculus of bile duct without cholangitis or cholecystitis without obstruction (principal); I10 Essential (primary) hypertension; Z88.8 Allergy status to other drugs, medicaments and biological substances; Z20.822 Contact with and (suspected) exposure to COVID-19; Z95.818 Presence of other cardiac implants and grafts
CPT/HCPCS: 85025; 80048; 36415; 80076; 83690; 74177; U0003; Q9967; C9113; J3010; J2543; J2175; J7040; J2405; 99285

== ENCOUNTER 2021-02-15 19:39 | Emergency (ER) | payer OTHER ==
--- OUTSIDE RECORDS SUMMARY | 2021-02-15 19:44 | XMS REPORT | Continuity of Care Document ---
:1955 Author Organization [facility] t Address [address] [place] [address] Care Team Providers Name Role Phone SHIRAZ Attending Clinician Unavailable FORCE Attending Clinician Unavailable NITIN Attending Clinician Unavailable MD LYNETTE TAVERAS Attending Clinician Unavailable Cesar SALINAS Attending Clinician Wilton Penaloza DO Attending Clinician CESAR Attending Clinician Unavailable Doctor Unassigned, Name Attending Clinician Unavailable CARL LIANG Attending Clinician Unavailable GUILLERMO Attending Clinician Unavailable Ulisses SALINAS, Y Attending Clinician 1, Lab Attending Clinician Unavailable FORCE Admitting Clinician Unavailable NITIN Admitting Clinician Unavailable MD LYNETTE TAVERAS Admitting Clinician Unavailable GUILLERMO Admitting Clinician Unavailable Payers Payer Name Policy Type Policy Number Effective Date Expiration Date S matt A[employer]/MEDICARE [id number] 2019 COMPLETE 00:00:00 Problems Condition Condition Condition Status Onset Resolution Last Treating Co mments Source Name Details Category Date Date Treatment Clinician Date Acute on Acute on Disease Active Unive rs chronic chronic 6-15 [place] congest[place] Me dical heart heart Branch failure failure Pulmonary Pulmonary Disease Active Uni vers embolism embolism 9-11 ity of 00:00: [place] [address] Medical Branch Atrial Atrial Disease Active Univers fibrillati fibrillati 8-06 it y of on on 00:00: [place] [address] Medical Branch Obesity Obesity Disease Active Univers (BMI (BMI 11-05 ity of 30-39.9) 30-39.9) 00:00: [place] 00 Medical Branch Chronic Chronic Disease Active Univers diastolic diastolic 11-03 it[place] congestive [place] heart 00 Medical failure failure Branch Persistent Persistent Disease Active U nivers atrial atrial 11-03 it[place] of fibrill[place] fibr[place] Pulmonary Pulmonary Disease Active Uni vers hypertensi hypertensi 11-03 it y of on on 00:00: [place] 00 Medical Branch Complicati Complicati Disease Active U nivers on of on of 11-02 ity of preventive preventive [place] medicine 00 Medica l procedure procedure Bran ch Rheumatoid Rheumatoid Disease Active Overview : Univers arthritis arthritis 5-21 ICD10 ity of 00:00: Diagnosis Term 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 Branch Utility 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 -21 ity of 00:00: [place] Medical [facility] Chest pain Chest pain Disease Active Overview : Univers 5-21 ICD10 ity of 00:00: Diagnosis [place] Term 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 Branch Utility No known No known Disease [facility] active active [place] problems problems of Medicin e Allergies, Adverse Reactions, Alerts Allergy Allergy Status Severity Reaction(s) Onset Inactive Treating Comm ents Source Name Type Date Date Clinician CODEINE Allergy Active High 2019-[address] [facility] POVIDONE Allergy Active High Hives 2019-[address] [facility] -IODINE -16 [facility] Iodine Propensi Active 2018-04 [facility] Tincture ty to 0 [place] adverse 00:00: of reaction 00 Medicin s to e drug IODINE-I Allergy Active 2018-[address] [facility] [address] SOPROPYL 0 [facility] - ALCOHOL 00:[facility]: Medical 00 Center Avocado Propensi Active Other - See Pt Un ean ty to comments 11-04 reports ity of adverse 00:00: upset [place] reaction 00 stomach Medical s after Branch consumpti on but no n/v. Dexter [place] [place] ext. [id number] AVOCADO DRUG Active Other-Cmnt Unive rs INGREDI 8-05 ity of 00:00: [place] 00 Medical Branch AVOCADO Allergy Active [facility] Iodine Propensi Active Hives 2007- topical Univers ty to 5-07 ity of adverse 00:00: [place] reaction 00 [facility] s Branch IODINE DRUG Active Hives 2007- Univers INGREDI 5-07 ity of 00:00: [place] 00 Medical Branch IODINE Allergy Active Hives 2007- [facility] Social History Social Habit Start Date Stop Date Quantity Comments Source Sex Assigned At [facility] Co llege of Medicine History of tobacco Cigarette Smoker University of use [facility] Tobacco use and 2019-05-27 2019-05-27 Never used Universit y of exposure 00:00:00 00:00:00 [facility] Cigarettes smoked 2019-05-27 2019-05-27 Univers ity of current (pack per 00:00:00 00:00:00 ) - Reported Branch Cigarette 2019-05-27 2019-05-27 University of pack-years 00:00:00 00:00:00 [facility] Alcohol intake 2019-05-27 2019-05-27 Current drinker Unive rsity of 00:00:00 00:00:00 of alcohol [facility] (finding) Wall Alcohol Comment 2017-09-15 2017-09-15 ocassional on the Un iversity of 00:00:00 00:00:00 weekends [facility] Smoking Status Start Date Stop Date Source Former smoker 2019-05-27 00:00:00 2019-05-27 00:00:00 Universi ty of [facility] Current some 2019-01-08 00:00:00 [facility] [place] [facility] of smoker Medicine Medications Ordered Filled Start Stop Current Ordering Indication Dosage Frequency Signature Comments Components Source Medication Medication Date Date Medication? Clinician (SIG) Name Name sotaloL 120 Yes [id number] 120mg Take 1 Univers mg tablet 3-22 tablet by ity o f 00:00: mouth 00 every 12 Medical (twelve) Branch hours. digoxin 125 Yes [id number] 125ug Take 1 Univers mcg (0.125 5-06 tablet by ity of mg) tablet 00:00: mouth 00 daily. Medical Branch digoxin 125 Yes [id number] 125ug Take 1 Univers mcg (0.125 5-06 tablet by ity of mg) tablet 00:00: mouth [place] 00 daily. Medical Branch digoxin 125 2020-0 Yes [id number] 125ug Take 1 Univers mcg (0.125 5-06 tablet by ity of mg) tablet 00:00: mouth [place] 00 daily. Medical Branch digoxin 125 2020-0 Yes [id number] 125ug Take 1 Univers mcg (0.125 5-06 tablet by ity of mg) tablet 00:00: mouth [place] 00 daily. Medical Branch digoxin 125 2020-0 Yes [id number] 125ug Take 1 Univers mcg (0.125 5-06 tablet by ity of mg) tablet 00:00: mouth [place] 00 daily. Medical Branch predniSONE 2020-0 2020- No 5mg Take 5 mg U nivers 5 mg tablet 2-25 02-25 by mouth ity of 15:49: 00:00 daily. [place] 49 :00 Medical Branch predniSONE 2020-0 2020- No 5mg Take 5 mg U nivers 5 mg tablet 2-25 -25 by mouth ity of 15:49: 00:00 daily. [place] 49 :00 Medical Branch buPROPion 0 Yes 150mg Take 150 Uni vers SR 2-25 mg by ity of (WELLBUTRIN 15:49: mouth [place] SR) 150 mg 47 daily. Medical SR tablet Indication Bran ch s: 1tab Qam 2tabs Qpm SERTraline 0 Yes 50mg Take 50 mg U nivers (ZOLOFT) 50 2-25 by mouth ity of mg tablet 15:49: daily. [place] [address] Medical Branch tofacitinib 2019-0 Yes 11mg Take 11 mg Univers (XELJANZ 2-25 by mouth. ity of XR) 11 mg 15:49: [place] Tb24 47 Medical Branch buPROPion 2019-0 Yes 150mg Take 150 Uni vers SR 2-25 mg by ity of (WELLBUTRIN 15:49: mouth [place] SR) 150 mg 47 daily. Medical SR tablet Indication Bran ch s: 1tab Qam 2tabs Qpm SERTraline 2019-0 Yes 50mg Take 50 mg U nivers (ZOLOFT) 50 2-25 by mouth ity of mg tablet 15:49: daily. [place] [address] Medical Branch tofacitinib 2019-0 Yes 11mg Take 11 mg Univers (XELJANZ 2-25 by mouth. ity of XR) 11 mg 15:49: [address] buPROPion 2020-0 Yes 150mg Take 150 Uni vers SR 2-25 mg by ity of (WELLBUTRIN 15:49: mouth [place] SR) 150 mg 47 daily. Medical SR tablet Indication Bran ch s: 1tab Qam 2tabs Qpm SERTraline 2020-0 Yes 50mg Take 50 mg U nivers (ZOLOFT) 50 2-25 by mouth ity of mg tablet 15:49: daily. [address] Branch tofacitinib 2020-0 Yes 11mg Take 11 mg Univers (XELJANZ 2-25 by mouth. ity of XR) 11 mg 15:49: [address] buPROPion 2019-0 Yes 150mg Take 150 Uni vers SR 2-25 mg by ity of (WELLBUTRIN 15:49: mouth [place] SR) 150 mg 47 daily. Medical SR tablet Indication Bran ch s: 1tab Qam 2tabs Qpm SERTraline 2020-0 Yes 50mg Take 50 mg U nivers (ZOLOFT) 50 2-25 by mouth ity of mg tablet 15:49: daily. [address] tofacitinib 2020-0 Yes 11mg Take 11 mg Univers (XELJANZ 2-25 by mouth. ity of XR) 11 mg 15:49: [address] buPROPion 2020-0 Yes 150mg Take 150 Uni vers SR 2-25 mg by ity of (WELLBUTRIN 15:49: mouth [place] SR) 150 mg 47 daily. Medical SR tablet Indication Bran ch s: 1tab Qam 2tabs Qpm SERTraline 2020-0 Yes 50mg Take 50 mg U nivers (ZOLOFT) 50 2-25 by mouth ity of mg tablet 15:49: daily. [address] tofacitinib 2020-0 Yes 11mg Take 11 mg Univers (XELJANZ 2-25 by mouth. ity of XR) 11 mg 15:49: [address] Branch buPROPion 2020-0 Yes 150mg Take 150 Uni vers SR 2-25 mg by ity of (WELLBUTRIN 15:49: mouth [place] SR) 150 mg 47 daily. Medical SR tablet Indication Bran ch s: 1tab Qam 2tabs Qpm SERTraline 2020-0 Yes 50mg Take 50 mg U nivers (ZOLOFT) 50 2-25 by mouth ity of mg tablet 15:49: daily. [address] tofacitinib 2020-0 Yes 11mg Take 11 mg Univers (XELJANZ 2-25 by mouth. ity of XR) 11 mg 15:49: [address] buPROPion 2020-0 Yes 150mg Take 150 Uni vers SR 2-25 mg by ity of (WELLBUTRIN 15:49: mouth [place] SR) 150 mg 47 daily. Medical SR tablet Indication Bran ch s: 1tab Qam 2tabs Qpm SERTraline 2020-0 Yes 50mg Take 50 mg U nivers (ZOLOFT) 50 2-25 by mouth ity of mg tablet 15:49: daily. [address] tofacitinib 2019-0 Yes 11mg Take 11 mg Univers (XELJANZ 2-25 by mouth. ity of XR) 11 mg 15:49: [address] buPROPion 2019-0 Yes 150mg Take 150 Uni vers SR 2-25 mg by ity of (WELLBUTRIN 15:49: mouth [place] SR) 150 mg 47 daily. Medical SR tablet Indication Bran ch s: 1tab Qam 2tabs Qpm SERTraline 2020-0 Yes 50mg Take 50 mg U nivers (ZOLOFT) 50 2-25 by mouth ity of mg tablet 15:49: daily. [address] tofacitinib 2020-0 Yes 11mg Take 11 mg Univers (XELJANZ 2-25 by mouth. ity of XR) 11 mg 15:49: [address] buPROPion 2019-0 Yes 150mg Take 150 Uni vers SR 2-25 mg by ity of (WELLBUTRIN 15:49: mouth [place] SR) 150 mg 47 daily. Medical SR tablet Indication Bran ch s: 1tab Qam 2tabs Qpm SERTraline 2020-0 Yes 50mg Take 50 mg U nivers (ZOLOFT) 50 2-25 by mouth ity of mg tablet 15:49: daily. [address] tofacitinib 2020-0 Yes 11mg Take 11 mg Univers (XELJANZ 2-25 by mouth. ity of XR) 11 mg 15:49: [address] abatacept 2020-0 2020- No 2506 125mg inject 125 Univers (ORENCIA) 2-25 02-25 mg under ity o f 125 mg/mL 15:30: 00:00 the skin Sharif as injection 22 :00 every Medical Sunday. Branch Indication s: ARTHRITIS abatacept 2019-0 2020- No 2506 125mg inject 125 Univers (ORENCIA) 2-25 02-25 mg under ity o f 125 mg/mL 15:30: 00:00 the skin Sharif as injection 22 :00 every Medical Sunday. Branch Indication s: ARTHRITIS digoxin 125 2019-0 Yes [id number] 125ug Take 1 Univers mcg (0.125 2-25 tablet by ity of mg) tablet 00:00: mouth [place] 00 daily. Medical Branch furosemide 2019-0 Yes [id number] 40mg Take 1 Univers 40 mg 2-25 tablet by ity of tablet 00:00: mouth [place] 00 every Medical morning Branch and evening. sotalol 120 2019-0 Yes [id number] 120mg Take 1 Univers mg tablet 2-25 tablet by ity o f 00:00: mouth [place] 00 every 12 Medical (twelve) Branch hours. apixaban 5 2019-0 Yes 1358 5mg Take 1 Unive rs mg tablet 2-25 tablet by ity o f 00:00: mouth 2 [place] 00 (two) Medical times Branch daily. Indication s: atrial fibrillati on KCL 20 mEq 2019-0 Yes [id number] 20meq Take 1 Univers tablet 2-25 tablet by ity of 00:00: mouth [place] 00 daily. Medical Branch digoxin 125 2019-0 Yes [id number] 125ug Take 1 Univers mcg (0.125 2-25 tablet by ity of mg) tablet 00:00: mouth [place] 00 daily. Medical Branch furosemide 2019-0 Yes [id number] 40mg Take 1 Univers 40 mg 2-25 tablet by ity of tablet 00:00: mouth [place] 00 every Medical morning Branch and evening. sotalol 120 2020-0 Yes [id number] 120mg Take 1 Univers mg tablet 2-25 tablet by ity o f 00:00: mouth [place] 00 every 12 Medical (twelve) Branch hours. apixaban 5 2019-0 Yes 1358 5mg Take 1 Unive rs mg tablet 2-25 tablet by ity o f 00:00: mouth 2 [place] 00 (two) Medical times Branch daily. Indication s: atrial fibrillati on KCL 20 mEq 2020-0 Yes [id number] 20meq Take 1 Univers tablet 2-25 tablet by ity of 00:00: mouth [place] 00 daily. Medical Branch digoxin 125 2020-0 Yes [id number] 125ug Take 1 Univers mcg (0.125 2-25 tablet by ity of mg) tablet 00:00: mouth [place] 00 daily. Medical Branch furosemide 2020-0 Yes [id number] 40mg Take 1 Univers 40 mg 2-25 tablet by ity of tablet 00:00: mouth [place] 00 every Medical morning Branch and evening. sotalol 120 2020-0 Yes [id number] 120mg Take 1 Univers mg tablet 2-25 tablet by ity o f 00:00: mouth [place] 00 every 12 Medical (twelve) Branch hours. apixaban 5 2020-0 Yes 1358 5mg Take 1 Unive rs mg tablet 2-25 tablet by ity o f 00:00: mouth 2 (two) Medical times Branch daily. Indication s: atrial fibrillati on KCL 20 mEq 2020-0 Yes [id number] 20meq Take 1 Univers tablet 2-25 tablet by ity of 00:00: mouth [place] 00 daily. Medical Branch digoxin 125 2020-0 Yes [id number] 125ug Take 1 Univers mcg (0.125 2-25 tablet by ity of mg) tablet 00:00: mouth [place] 00 daily. Medical Branch furosemide 2020-0 Yes [id number] 40mg Take 1 Univers 40 mg 2-25 tablet by ity of tablet 00:00: mouth [place] 00 every Medical morning Branch and evening. sotalol 120 2020-0 Yes [id number] 120mg Take 1 Univers mg tablet 2-25 tablet by ity o f 00:00: mouth [place] 00 every 12 Medical (twelve) Branch hours. apixaban 5 2020-0 Yes 1358 5mg Take 1 Unive rs mg tablet 2-25 tablet by ity o f 00:00: mouth 2 [place] 00 (two) Medical times Branch daily. Indication s: atrial fibrillati on KCL 20 mEq 2020-0 Yes [id number] 20meq Take 1 Univers tablet 2-25 tablet by ity of 00:00: mouth [place] 00 daily. Medical Branch furosemide 2020-0 Yes [id number] 40mg Take 1 Univers 40 mg 2-25 tablet by ity of tablet 00:00: mouth [place] 00 every Medical morning Branch and evening. sotalol 120 2020-0 Yes [id number] 120mg Take 1 Univers mg tablet 2-25 tablet by ity o f 00:00: mouth [place] 00 every 12 Medical (twelve) Branch hours. apixaban 5 2020-0 Yes 1358 5mg Take 1 Unive rs mg tablet 2-25 tablet by ity o f 00:00: mouth 2 [place] 00 (two) Medical times Branch daily. Indication s: atrial fibrillati on KCL 20 mEq 2020-0 Yes [id number] 20meq Take 1 Univers tablet 2-25 tablet by ity of 00:00: mouth [place] 00 daily. Medical Branch furosemide 2020-0 Yes [id number] 40mg Take 1 Univers 40 mg 2-25 tablet by ity of tablet 00:00: mouth [place] 00 every Medical morning Branch and evening. sotalol 120 2020-0 Yes [id number] 120mg Take 1 Univers mg tablet 2-25 tablet by ity o f 00:00: mouth [place] 00 every 12 Medical (twelve) Branch hours. apixaban 5 2020-0 Yes 1358 5mg Take 1 Unive rs mg tablet 2-25 tablet by ity o f 00:00: mouth 2 [place] 00 (two) Medical times Branch daily. Indication s: atrial fibrillati on KCL 20 mEq 2020-0 Yes [id number] 20meq Take 1 Univers tablet 2-25 tablet by ity of 00:00: mouth [place] 00 daily. Medical Branch furosemide 2020-0 Yes [id number] 40mg Take 1 Univers 40 mg 2-25 tablet by ity of tablet 00:00: mouth [place] 00 every Medical morning Branch and evening. sotalol 120 2020-0 Yes [id number] 120mg Take 1 Univers mg tablet 2-25 tablet by ity o f 00:00: mouth [place] 00 every 12 Medical (twelve) Branch hours. apixaban 5 2020-0 Yes 1358 5mg Take 1 Unive rs mg tablet 2-25 tablet by ity o f 00:00: mouth 2 [place] 00 (two) Medical times Branch daily. Indication s: atrial fibrillati on KCL 20 mEq 2020-0 Yes [id number] 20meq Take 1 Univers tablet 2-25 tablet by ity of 00:00: mouth [place] 00 daily. Medical Branch furosemide 2020-0 Yes [id number] 40mg Take 1 Univers 40 mg 2-25 tablet by ity of tablet 00:00: mouth [place] 00 every Medical morning Branch and evening. sotalol 120 2020-0 Yes [id number] 120mg Take 1 Univers mg tablet 2-25 tablet by ity o f 00:00: mouth [place] 00 every 12 Medical (twelve) Branch hours. apixaban 5 2020-0 Yes 1358 5mg Take 1 Unive rs mg tablet 2-25 tablet by ity o f 00:00: mouth 2 [place] 00 (two) Medical times Branch daily. Indication s: atrial fibrillati on KCL 20 mEq 2020-0 Yes [id number] 20meq Take 1 Univers tablet 2-25 tablet by ity of 00:00: mouth [place] 00 daily. Medical Branch furosemide 2020-0 Yes [id number] 40mg Take 1 Univers 40 mg 2-25 tablet by ity of tablet 00:00: mouth [place] 00 every Medical morning Branch and evening. apixaban 5 2019-0 Yes 1358 5mg Take 1 Unive rs mg tablet 2-25 tablet by ity o f 00:00: mouth 2 [place] 00 (two) Medical times Branch daily. Indication s: atrial fibrillati on KCL 20 mEq 2020-0 Yes [id number] 20meq Take 1 Univers tablet 2-25 tablet by ity of 00:00: mouth [place] 00 daily. Medical Branch sotalol 120 0 2020- No [id number] 120mg Take 1 Univers mg tablet 2-25 03-22 tablet by ity of 00:00: 00:00 mouth [place] 00 :00 every 12 Medical (twelve) Branch hours. digoxin 125 2019-0 2020- No [id number] 125ug Take 1 Univers mcg (0.125 2-25 05-06 tablet by ity of mg) tablet 00:00: 00:00 mouth [place] 00 :00 daily. Medical Branch furosemide 2020-0 Yes [id number] 40mg Take 1 Univers 40 mg 2-15 tablet by ity of tablet 00:00: mouth [place] 00 every Medical morning Branch and evening. Take 40 mg in AM and 20 mg in PM digoxin 125 2019-0 Yes 125ug Take 1 Uni vers mcg (0.125 2-15 tablet by ity of mg) tablet 00:00: mouth [place] 00 daily. Medical Branch sotalol 120 2019-0 Yes [id number] 120mg Take 1 Univers mg tablet 2-15 tablet by ity o f 00:00: mouth [place] 00 every 12 Medical (twelve) Branch hours. apixaban 5 2019-0 Yes 1358 5mg Take 1 Unive rs mg tablet 2-15 tablet by ity o f 00:00: mouth 2 [place] 00 (two) Medical times Branch daily. Indication s: atrial fibrillati on furosemide 2019- 2020- No [id number] 40mg Take 1 Univers 40 mg 2-15 02-25 tablet by ity of tablet 00:00: 00:00 mouth [place] 00 :00 every Medical morning Branch and evening. Take 40 mg in AM and 20 mg in PM digoxin 125 2020-0 2020- No 125ug Take 1 Un ean mcg (0.125 2-15 02-25 tablet by ity of mg) tablet 00:00: 00:00 mouth [place] 00 :00 daily. Medical Branch sotalol 120 2020- No [id number] 120mg Take 1 Univers mg tablet 2-15 02-25 tablet by ity of 00:00: 00:00 mouth [place] 00 :00 every 12 Medical (twelve) Branch hours. apixaban 5 2019-2019- No 1358 5mg Take 1 Univ ers mg tablet 2-15 02-25 tablet by ity of 00:00: 00:00 mouth 2 [place] 00 :00 (two) Medical times Branch daily. Indication s: atrial fibrillati on furosemide 2019-0 2019- No [id number] 40mg Take 1 Univers 40 mg 2-15 02-25 tablet by ity of tablet 00:00: 00:00 mouth [place] 00 :00 every Medical morning Branch and evening. Take 40 mg in AM and 20 mg in PM digoxin 125 2019-0 2020- No 125ug Take 1 Un ean mcg (0.125 2-15 02-25 tablet by ity of mg) tablet 00:00: 00:00 mouth [place] 00 :00 daily. Medical Branch sotalol 120 2019- 2020- No [id number] 120mg Take 1 Univers mg tablet 2-15 02-25 tablet by ity of 00:00: 00:00 mouth [place] 00 :00 every 12 Medical (twelve) Branch hours. apixaban 5 2019-0 2020- No 1358 5mg Take 1 Univ ers mg tablet 2-15 02-25 tablet by ity of 00:00: 00:00 mouth 2 [place] 00 :00 (two) Medical times Branch daily. Indication s: atrial fibrillati on furosemide 2020-0 Yes [id number] 40mg Take 1 Univers 40 mg 2-13 tablet by ity of tablet 00:00: mouth [place] 00 every Medical morning Branch and evening. digoxin 125 2020-0 Yes 125ug Take 1 Uni vers mcg (0.125 2-13 tablet by ity of mg) tablet 00:00: mouth [place] 00 daily. Medical Branch apixaban 5 2020-0 Yes 1358 5mg Take 1 Unive rs mg tablet 2-13 tablet by ity o f 00:00: mouth 2 [place] 00 (two) Medical times Branch daily. Indication s: atrial fibrillati on furosemide 2020-0 2020- No [id number] 40mg Take 1 Univers 40 mg 2-13 02-25 tablet by ity of tablet 00:00: 00:00 mouth [place] 00 :00 every Medical morning Branch and evening. digoxin 125 2020-0 2020- No 125ug Take 1 Un ean mcg (0.125 2-13 -25 tablet by ity of mg) tablet 00:00: 00:00 mouth [place] 00 :00 daily. Medical Branch apixaban 5 2019-0 2020- No 1358 5mg Take 1 Univ ers mg tablet -15 05-25 tablet by ity of 00:00: 00:00 mouth 2 [place] 00 :00 (two) Medical times Branch daily. Indication s: atrial fibrillati on furosemide 2020-0 2020- No [id number] 40mg Take 1 Univers 40 mg 2-13 02-25 tablet by ity of tablet 00:00: 00:00 mouth [place] 00 :00 every Medical morning Branch and evening. digoxin 125 2020-0 2020- No 125ug Take 1 Un ean mcg (0.125 2-13 -25 tablet by ity of mg) tablet 00:00: 00:00 mouth [place] 00 :00 daily. Medical Branch apixaban 5 2020-0 2020- No 1358 5mg Take 1 Univ ers mg tablet 2-15 05-25 tablet by ity of 00:00: 00:00 mouth 2 [place] 00 :00 (two) Medical times Branch daily. Indication s: atrial fibrillati on apixaban 5 2020-0 Yes 1358 5mg Take 1 Unive rs mg tablet 1-15 tablet by ity o f 00:00: mouth 2 [place] 00 (two) Medical times Branch daily. Indication s: atrial fibrillati on apixaban 5 2020- No 1358 5mg Take 1 Univ ers mg tablet 1-15 - tablet by ity of 00:00: 00:00 mouth 2 [place] 00 :00 (two) Medical times Branch daily. Indication s: atrial fibrillati on sotalol 120 2018-04 Yes [id number] 120mg Take 1 Univers mg tablet 2-11 tablet by ity o f 00:00: mouth [place] 00 every 12 Medical (twelve) Branch hours. sotalol 120 2018-04 Yes [id number] 120mg Take 1 Univers mg tablet 2-11 tablet by ity o f 00:00: mouth [place] 00 every 12 Medical (twelve) Branch hours. sotalol 120 2018-04- No [id number] 120mg Take 1 Univers mg tablet 2-02 01- tablet by ity of 00:00: 00:00 mouth [place] 00 :00 every 12 Medical (twelve) Branch hours. apixaban 2018-04- No 1358 5mg Take 1 Univ ers mg tablet 2-01 31- tablet by ity of 00:00: 00:00 mouth 2 [place] 00 :00 (two) Medical times Branch daily. Indication s: atrial fibrillati on meloxicam 2018-04 Yes 15mg Take 15 mg [facility] (MOBIC) 15 0-09 by mouth. [place] MG tablet 20:28: of 48 Medicin e Tofacitinib 2018-04 Yes 11mg Take 11 mg [facility] Citrate 11 0-09 by mouth. [place] [facility] MG TB24 20:28: of 48 Medicin e Abatacept 2018-04 Yes 125mg Inject 125 [facility] (ORENCIA) 0-09 mg into College 125 MG/ML 20:28: the skin. of SOSY 47 Medicin e sertraline 2018-04 Yes TAKE 1 & 1 [facility] (ZOLOFT) 50 0-07 2 (ONE & [facility] MG tablet 00:00: ONE HALF) of 00 TABLETS BY Medicin MOUTH ONCE e DAILY ELIQUIS 5 2018-04 Yes TAKE 1 [facility] MG TABS 0-07 TABLET BY College 00:00: MOUTH of 00 TWICE Medicin DAILY e buPROPion 2018-04 Yes TAKE 1 [facility] (WELLBUTRIN 0-07 TABLET BY Col lege ) 150 MG XL 00:00: MOUTH ONCE of tablet 00 DAILY Medicin e tramadol 2018-04 Yes TAKE 1 [facility] (ULTRAM) 50 0-02 TABLET BY Col lege MG tablet 00:00: MOUTH of 00 EVERY 8 Medicin HOURS e NEEDED MAY MAKE DROWSY PENNSAID 2 Yes APPLY 2 [facility] % SOLN 12-23 PUMP BY College 00:00: TOPICAL of 00 ROUTE 2 Medicin TIMES e EVERY DAY TO THE AFFECTED JOINT digoxin Yes [facility] (LANOXIN) 12-13 College 125 MCG 00:00: of tablet 00 Medicin e digoxin 125 Yes 125ug Take 1 Uni vers mcg tablet 9-13 tablet by ity of 00:00: mouth [place] 00 daily. Medical Branch digoxin 125 Yes 125ug Take 1 Uni vers mcg tablet 9-13 tablet by ity of 00:00: mouth [place] 00 daily. Medical Branch digoxin 125 Yes 125ug Take 1 Uni vers mcg tablet 9-13 tablet by ity of 00:00: mouth [place] 00 daily. Medical Branch digoxin 125 2020- No 125ug Take 1 Un ean mcg tablet 9-13 -13 tablet by ity of 00:00: 00:00 mouth [place] 00 :00 daily. Medical Branch furosemide Yes 40mg Take 40 mg [facility] (LASIX) 40 9-05 by mouth. [place] [facility] MG tablet 00:00: of 00 Medicin e furosemide Yes [id number] 40mg Take 1 [facility] 40 mg 9-05 tablet by ity of tablet 00:00: mouth [place] 00 every Medical morning Branch and evening. Take 40 mg in AM and 20 mg in PM furosemide Yes [id number] 40mg Take 1 [facility] 40 mg 9-05 tablet by ity of tablet 00:00: mouth [place] 00 every Medical morning Branch and evening. Take 40 mg in AM and 20 mg in PM furosemide Yes [id number] 40mg Take 1 [facility] 40 mg 9-05 tablet by ity of tablet 00:00: mouth [place] 00 every Medical morning Branch and evening. Take 40 mg in AM and 20 mg in PM furosemide Yes [id number] 40mg Take 1 [facility] 40 mg 9-05 tablet by ity of tablet 00:00: mouth [place] 00 every Medical morning Branch and evening. Take 40 mg in AM and 20 mg in PM furosemide Yes [id number] 40mg Take 1 [facility] 40 mg 9-05 tablet by ity of tablet 00:00: mouth [place] 00 every Medical morning Branch and evening. Take 40 mg in AM and 20 mg in PM furosemide Yes [id number] 40mg Take 1 [facility] 40 mg 9-05 tablet by ity of tablet 00:00: mouth [place] 00 every Medical morning Branch and evening. Take 40 mg in AM and 20 mg in PM furosemide 2020- No [id number] 40mg Take 1 [facility] 40 mg 9-05 02-13 tablet by ity of tablet 00:00: 00:00 mouth [place] 00 :00 every Medical morning Branch and evening. Take 40 mg in AM and 20 mg in PM sotalol Yes TAKE 1 [facility] (BETAPACE) 9-03 TABLET BY Edgar ege 120 MG 00:00: MOUTH of tablet 00 EVERY 12 Medicin HOURS e furosemide Yes [id number] 40mg Take 1 [facility] 40 mg 8-16 tablet by ity of tablet 00:00: mouth [place] 00 every Medical morning Branch and evening. Take 40 mg in AM and 20 mg in PM furosemide Yes [id number] 40mg Take 1 [facility] 40 mg 8-16 tablet by ity of tablet 00:00: mouth [place] 00 every Medical morning Branch and evening. Take 40 mg in AM and 20 mg in PM furosemide 2019- No [id number] 40mg Take 1 [facility] 40 mg 8-16 09-05 tablet by ity of tablet 00:00: 00:00 mouth [place] 00 :00 every Medical morning Branch and evening. Take 40 mg in AM and 20 mg in PM digoxin 125 Yes 125ug Take 1 [facility] vers mcg tablet 7-15 tablet by ity of 00:00: mouth [place] 00 daily. Medical Branch digoxin 125 Yes 125ug Take 1 [facility] vers mcg tablet 7-15 tablet by ity of 00:00: mouth [place] 00 daily. Medical Branch digoxin 125 Yes 125ug Take 1 [facility] vers mcg tablet 7-15 tablet by ity of 00:00: mouth [place] 00 daily. Medical Branch digoxin 125 Yes 125ug Take 1 [facility] vers mcg tablet 7-15 tablet by ity of 00:00: mouth [place] 00 daily. Medical Branch digoxin 125 Yes 125ug Take 1 [facility] vers mcg tablet 7-15 tablet by ity of 00:00: mouth 00 daily. Medical Branch digoxin 125 2019- No 125ug Take 1 [facility] mcg tablet 7-15 -13 tablet by ity of 00:00: 00:00 mouth [place] 00 :00 daily. Medical Branch furosemide 2019- No [id number] Take 40 mg [facility] 40 mg 10-14 08-16 in AM and ity of tablet 00:00: 00:00 20 mg in [place] 00 :00 PM Medical Branch apixaban 5 2019-0 Yes 5mg Take 1 [facility] mg tablet 5-02 tablet by ity o f 00:00: mouth (two) Medical times Branch daily. apixaban 5 2019-0 Yes 5mg Take 1 [facility] mg tablet 5-02 tablet by ity o f 00:00: mouth (two) Medical times Branch daily. apixaban 5 2019-0 Yes 5mg Take 1 [facility] mg tablet 5-02 tablet by ity o f 00:00: mouth (two) Medical times Branch daily. apixaban 5 2018-0 Yes 5mg Take 1 [facility] mg tablet 5-02 tablet by ity o f 00:00: mouth (two) Medical times Branch daily. apixaban 5 2019-0 Yes 5mg Take 1 [facility] mg tablet 5-02 tablet by ity o f 00:00: mouth (two) Medical times Branch daily. apixaban 5 2019-0 Yes 5mg Take 1 [facility] mg tablet 5-02 tablet by ity o f 00:00: mouth (two) Medical times Branch daily. apixaban 5 2019-0 Yes 5mg Take 1 [facility] mg tablet 5-02 tablet by ity o f 00:00: mouth (two) Medical times Branch daily. apixaban 5 2019-0 Yes 5mg Take 1 [facility] mg tablet 5-02 tablet by ity o f 00:00: mouth (two) Medical times Branch daily. sotalol 120 2019-0 Yes 120mg Take 1 [facility] vers mg tablet 4-18 tablet by ity o f 00:00: mouth [place] 00 every 12 Medical (twelve) Branch hours. sotalol 120 2018-0 Yes 120mg Take 1 [facility] vers mg tablet 4-18 tablet by ity o f 00:00: mouth [place] 00 every 12 Medical (twelve) Branch hours. sotalol 120 2018-0 Yes 120mg Take 1 [facility] vers mg tablet 4-18 tablet by ity o f 00:00: mouth [place] 00 every 12 Medical (twelve) Branch hours. sotalol 120 2018-0 Yes 120mg Take 1 [facility] vers mg tablet 4-18 tablet by ity o f 00:00: mouth [place] 00 every 12 Medical (twelve) Branch hours. sotalol 120 2019-0 Yes 120mg Take 1 [facility] vers mg tablet 4-18 tablet by ity o f 00:00: mouth [place] 00 every 12 Medical (twelve) Branch hours. sotalol 120 2018-0 Yes 120mg Take 1 [facility] vers mg tablet 4-18 tablet by ity o f 00:00: mouth [place] 00 every 12 Medical (twelve) Branch hours. sotalol 120 0 Yes 120mg Take 1 [facility] vers mg tablet 4-18 tablet by ity o f 00:00: mouth [place] 00 every 12 Medical (twelve) Branch hours. sotalol 120 0 Yes 120mg Take 1 [facility] vers mg tablet 4-18 tablet by ity o f 00:00: mouth [place] 00 every 12 Medical (twelve) Branch hours. buPROPion Yes 150mg Take 150 [facility] vers SR 4-15 mg by ity of (WELLBUTRIN 13:13: mouth [place] SR) 150 mg 02 daily. Medical SR tablet Indication Bran ch s: 1tab Qam 2tabs Qpm SERTraline 2018- Yes 50mg Take 50 mg [facility]ivers (ZOLOFT) 50 4-15 by mouth ity of mg tablet 13:13: daily. [place] [facility] Branch abatacept 2019- Yes 2506 125mg inject 125 [facility] (ORENCIA) 4-15 mg under ity of 125 mg/mL 13:13: [place] injection 02 every Medical Sunday. Branch Indication s: ARTHRITIS meloxicam 2018- Yes 15mg Take 15 mg [facility] 15 mg 4-15 by mouth ity of tablet 13:13: daily. [place] [id number] Medical Branch predniSONE 2018- Yes 5mg Take 5 mg [facility] 5 mg tablet 4-15 by mouth ity of 13:13: daily. [place] 02 Medical Branch tofacitinib Yes 11mg Take 11 mg [facility] (XELJANZ 4-15 by mouth. ity of XR) 11 mg 13:13: [address] buPROPion Yes 150mg Take 150 Uni vers SR 4-15 mg by ity of (WELLBUTRIN 13:13: mouth [place] SR) 150 mg 02 daily. Medical SR tablet Indication Bran ch s: 1tab Qam 2tabs Qpm SERTraline Yes 50mg Take 50 mg [facility] (ZOLOFT) 50 4-15 by mouth ity of mg tablet 13:13: daily. [address] abatacept Yes 2506 125mg inject 125 [facility] (ORENCIA) 4-15 mg under ity of 125 mg/mL 13:13: [place] injection 02 every Sunday. Branch Indication s: ARTHRITIS meloxicam Yes 15mg Take 15 mg [facility] 15 mg 4-15 by mouth ity of tablet 13:13: daily. [address] predniSONE 0 Yes 5mg Take 5 mg [facility] 5 mg tablet 4-15 by mouth ity of 13:13: daily. [address] tofacitinib Yes 11mg Take 11 mg [facility] (XELJANZ 4-15 by mouth. ity of XR) 11 mg 13:13: [address] buPROPion Yes 150mg Take 150 Uni vers SR 4-15 mg by ity of (WELLBUTRIN 13:13: mouth [place] SR) 150 mg 02 daily. Medical SR tablet Indication Bran ch s: 1tab Qam 2tabs Qpm SERTraline Yes 50mg Take 50 mg [facility]ivers (ZOLOFT) 50 4-15 by mouth ity of mg tablet 13:13: daily. [address] abatacept Yes 2506 125mg inject 125 [facility]ivers (ORENCIA) 4-15 mg under ity of 125 mg/mL 13:13: [place] injection 02 every Sunday. Branch Indication s: ARTHRITIS meloxicam 2019 Yes 15mg Take 15 mg [facility] 15 mg 4-15 by mouth ity of tablet 13:13: daily. [address] predniSONE 0 Yes 5mg Take 5 mg [facility] 5 mg tablet 4-15 by mouth ity of 13:13: daily. [address] tofacitinib Yes 11mg Take 11 mg [facility] (XELJANZ 4-15 by mouth. ity of XR) 11 mg 13:13: [address] buPROPion Yes 150mg Take 150 Uni vers SR 4-15 mg by ity of (WELLBUTRIN 13:13: mouth [place] SR) 150 mg 02 daily. Medical SR tablet Indication Bran ch s: 1tab Qam 2tabs Qpm SERTraline Yes 50mg Take 50 mg [facility] nivers (ZOLOFT) 50 4-15 by mouth ity of mg tablet 13:13: daily. [address] abatacept Yes 2506 125mg inject 125 [facility] nivers (ORENCIA) 4-15 mg under ity of 125 mg/mL 13:13: [place] injection 02 every Sunday. Branch Indication s: ARTHRITIS meloxicam 2019 Yes 15mg Take 15 mg [facility] 15 mg 4-15 by mouth ity of tablet 13:13: daily. [address] predniSONE Yes 5mg Take 5 mg [facility] 5 mg tablet 4-15 by mouth ity of 13:13: daily. [address] tofacitinib Yes 11mg Take 11 mg [facility] (XELJANZ 4-15 by mouth. ity of XR) 11 mg 13:13: [address] buPROPion Yes 150mg Take 150 Uni vers SR 4-15 mg by ity of (WELLBUTRIN 13:13: mouth [place] SR) 150 mg 02 daily. Medical SR tablet Indication Bran ch s: 1tab Qam 2tabs Qpm SERTraline Yes 50mg Take 50 mg U nivers (ZOLOFT) 50 4-15 by mouth ity of mg tablet 13:13: daily. [address] abatacept 0 Yes 2506 125mg inject 125 [facility] nivers (ORENCIA) 4-15 mg under ity of 125 mg/mL 13:13: [place] injection 02 every Sunday. Branch Indication s: ARTHRITIS meloxicam 20190 Yes 15mg Take 15 mg [facility] 15 mg 4-15 by mouth ity of tablet 13:13: daily. [address] predniSONE 2019-0 Yes 5mg Take 5 mg [facility] 5 mg tablet 4-15 by mouth ity of 13:13: daily. [address] tofacitinib 2019 Yes 11mg Take 11 mg [facility] (XELJANZ 4-15 by mouth. ity of XR) 11 mg 13:13: [address] buPROPion Yes 150mg Take 150 Uni vers SR 4-15 mg by ity of (WELLBUTRIN 13:13: mouth [place] SR) 150 mg 02 daily. Medical SR tablet Indication Bran ch s: 1tab Qam 2tabs Qpm SERTraline Yes 50mg Take 50 mg U nivers (ZOLOFT) 50 4-15 by mouth ity of mg tablet 13:13: daily. [address] abatacept Yes 2506 125mg inject 125 U nivers (ORENCIA) 4-15 mg under ity of 125 mg/mL 13:13: [place] injection 02 every Sunday. Branch Indication s: ARTHRITIS meloxicam Yes 15mg Take 15 mg [facility] 15 mg 4-15 by mouth ity of tablet 13:13: daily. [address] predniSONE Yes 5mg Take 5 mg [facility] 5 mg tablet 4-15 by mouth ity of 13:13: daily. [address] tofacitinib Yes 11mg Take 11 mg [facility] (XELJANZ 4-15 by mouth. ity of XR) 11 mg 13:13: [address] buPROPion Yes 150mg Take 150 Uni vers SR 4-15 mg by ity of (WELLBUTRIN 13:13: mouth [place] SR) 150 mg 02 daily. Medical SR tablet Indication Bran ch s: 1tab Qam 2tabs Qpm SERTraline Yes 50mg Take 50 mg U nivers (ZOLOFT) 50 4-15 by mouth ity of mg tablet 13:13: daily. [address] abatacept Yes 2506 125mg inject 125 U nivers (ORENCIA) 4-15 mg under ity of 125 mg/mL 13:13: [place] injection 02 every Medical Josseline. Branch Indication s: ARTHRITIS meloxicam 2019 Yes 15mg Take 15 mg [facility] 15 mg 4-15 by mouth ity of tablet 13:13: daily. [address] predniSONE Yes 5mg Take 5 mg [facility] 5 mg tablet 4-15 by mouth ity of 13:13: daily. [address] tofacitinib Yes 11mg Take 11 mg [facility] (XELJANZ 4-15 by mouth. ity of XR) 11 mg 13:13: [address] buPROPion Yes 150mg Take 150 [facility] vers SR 4-15 mg by ity of (WELLBUTRIN 13:13: mouth [place] SR) 150 mg 02 daily. Medical SR tablet Indication Bran ch s: 1tab Qam 2tabs Qpm SERTraline Yes 50mg Take 50 mg [facility]ivers (ZOLOFT) 50 4-15 by mouth ity of mg tablet 13:13: daily. [address] abatacept Yes 2506 125mg inject 125 U nivers (ORENCIA) 4-15 mg under ity of 125 mg/mL 13:13: the [place] injection 02 every Sunday. Branch Indication s: ARTHRITIS meloxicam 2019 Yes 15mg Take 15 mg [facility] 15 mg 4-15 by mouth ity of tablet 13:13: daily. [address] predniSONE Yes 5mg Take 5 mg [facility] 5 mg tablet 4-15 by mouth ity of 13:13: daily. [address] tofacitinib Yes 11mg Take 11 mg [facility] (XELJANZ 4-15 by mouth. ity of XR) 11 mg 13:13: [address] meloxicam Yes 15mg Take 15 mg [facility] 15 mg 4-15 by mouth ity of tablet 13:13: daily. [address] buPROPion Yes 150mg Take 150 Uni vers SR 4-15 mg by ity of (WELLBUTRIN 13:13: mouth [place] SR) 150 mg 02 daily. Medical SR tablet Indication Bran ch s: 1tab Qam 2tabs Qpm SERTraline Yes 50mg Take 50 mg U nivers (ZOLOFT) 50 4-15 by mouth ity of mg tablet 13:13: daily. [address] abatacept Yes 2506 125mg inject 125 U nivers (ORENCIA) 4-15 mg under ity of 125 mg/mL 13:13: the [place] injection 02 [facility] Sunday. Branch Indication s: ARTHRITIS meloxicam Yes 15mg Take 15 mg [facility] 15 mg 4-15 by mouth ity of tablet 13:13: daily. [address] meloxicam Yes 15mg Take 15 mg [facility] 15 mg 4-15 by mouth ity of tablet 13:13: daily. [address] predniSONE Yes 5mg Take 5 mg [facility] 5 mg tablet 4-15 by mouth ity of 13:13: daily. [address] meloxicam Yes 15mg Take 15 mg [facility] 15 mg 4-15 by mouth ity of tablet 13:13: daily. [address] tofacitinib Yes 11mg Take 11 mg [facility] (XELJANZ 4-15 by mouth. ity of XR) 11 mg 13:13: [place] Tb[address] [place] [address] meloxicam Yes 15mg Take 15 mg [facility] 15 mg 4-15 by mouth ity of tablet 13:13: daily. [address] meloxicam Yes 15mg Take 15 mg [facility] 15 mg 4-15 by mouth ity of tablet 13:13: daily. [address] meloxicam Yes 15mg Take 15 mg [facility] 15 mg 4-15 by mouth ity of tablet 13:13: daily. [address] meloxicam Yes 15mg Take 15 mg [facility] 15 mg 4-15 by mouth ity of tablet 13:13: daily. [address] meloxicam Yes 15mg Take 15 mg [facility] 15 mg 4-15 by mouth ity of tablet 13:13: daily. [address] meloxicam Yes 15mg Take 15 mg [facility] 15 mg 4-15 by mouth ity of tablet 13:13: daily. [address] buPROPion Yes 150mg Take 150 Uni vers SR 4-15 mg by ity of (WELLBUTRIN 13:13: mouth [place] SR) 150 mg 02 daily. Medical SR tablet Indication Bran ch s: 1tab Qam 2tabs Qpm SERTraline 2019 Yes 50mg Take 50 mg U nivers (ZOLOFT) 50 4-15 by mouth ity of mg tablet 13:13: daily. [address] abatacept 2019 Yes 2506 125mg inject 125 U nivers (ORENCIA) 4-15 mg under ity of 125 mg/mL 13:13: the [place] injection 02 every Sunday. Branch Indication s: ARTHRITIS meloxicam 2019 Yes 15mg Take 15 mg [facility] 15 mg 4-15 by mouth ity of tablet 13:13: daily. [address] predniSONE Yes 5mg Take 5 mg [facility] 5 mg tablet 4-15 by mouth ity of 13:13: daily. [address] tofacitinib Yes 11mg Take 11 mg [facility] (XELJANZ 4-15 by mouth. ity of XR) 11 mg 13:13: [address] buPROPion Yes 150mg Take 150 [facility] vers SR 4-15 mg by ity of (WELLBUTRIN 13:13: mouth [place] SR) 150 mg 02 daily. Medical SR tablet Indication Bran ch s: 1tab Qam 2tabs Qpm SERTraline Yes 50mg Take 50 mg [facility] nivers (ZOLOFT) 50 4-15 by mouth ity of mg tablet 13:13: daily. [address] abatacept 2019 Yes 2506 125mg inject 125 [facility] nivers (ORENCIA) 4-15 mg under ity of 125 mg/mL 13:13: the [place] injection 02 every Sunday. Branch Indication s: ARTHRITIS meloxicam 2019 Yes 15mg Take 15 mg [facility] 15 mg 4-15 by mouth ity of tablet 13:13: daily. [address] predniSONE [address] Yes 5mg Take 5 mg [facility] 5 mg tablet 4-15 by mouth ity of 13:13: daily. [address] tofacitinib Yes 11mg Take 11 mg [facility] (XELJANZ 4-15 by mouth. ity of XR) 11 mg 13:13: [address] buPROPion 0 Yes 150mg Take 150 [facility] vers SR 4-15 mg by ity of (WELLBUTRIN 13:13: mouth [place] SR) 150 mg 02 daily. Medical SR tablet Indication Bran ch s: 1tab Qam 2tabs Qpm SERTraline 2018-0 Yes 50mg Take 50 mg U nivers (ZOLOFT) 50 4-15 by mouth ity of mg tablet 13:13: daily. [address] abatacept 2018- Yes 2506 125mg inject 125 U nivers (ORENCIA) 4-15 mg under ity of 125 mg/mL 13:13: the [place] injection 02 every Sunday. Branch Indication s: ARTHRITIS meloxicam Yes 15mg Take 15 mg [facility] 15 mg 4-15 by mouth ity of tablet 13:13: daily. [address] predniSONE Yes 5mg Take 5 mg [facility] 5 mg tablet 4-15 by mouth ity of 13:13: daily. [address] tofacitinib Yes 11mg Take 11 mg [facility] (XELJANZ 4-15 by mouth. ity of XR) 11 mg 13:13: [address] sucralfate 2018-0 Yes 1g Take 1 [facility] rs (CARAFATE) 8-12 tablet by ity of 1 gram 00:00: mouth [place] tablet 00 before Medical meals and Branch at bedtime. sucralfate 2018-0 Yes 1g Take 1 [facility] rs (CARAFATE) 8-12 tablet by ity of 1 gram 00:00: mouth [place] tablet 00 before Medical meals and Branch at bedtime. sucralfate 2018-0 Yes 1g Take 1 [facility] rs (CARAFATE) 8-12 tablet by ity of 1 gram 00:00: mouth [place] tablet 00 before Medical meals and Branch at bedtime. sucralfate 2018-0 Yes 1g Take 1 [facility] rs (CARAFATE) 8-12 tablet by ity of 1 gram 00:00: mouth [place] tablet 00 before Medical meals and Branch at bedtime. sucralfate 2018-0 Yes 1g Take 1 [facility] rs (CARAFATE) 8-12 tablet by ity of 1 gram 00:00: mouth [place] tablet 00 before Medical meals and Branch at bedtime. sucralfate 2018-0 Yes 1g Take 1 [facility] rs (CARAFATE) 8-12 tablet by ity of 1 gram 00:00: mouth [place] tablet 00 before Medical meals and Branch at bedtime. sucralfate 2018-0 Yes 1g Take 1 [facility] rs (CARAFATE) 8-12 tablet by ity of 1 gram 00:00: mouth [place] tablet 00 before Medical meals and Branch at bedtime. sucralfate 2018-0 Yes 1g Take 1 [facility] rs (CARAFATE) 8-12 tablet by ity of 1 gram 00:00: mouth [place] tablet 00 before Medical meals and Branch at bedtime. sucralfate 2018-0 Yes 1g Take 1 [facility] rs (CARAFATE) 8-12 tablet by ity of 1 gram 00:00: mouth [place] tablet 00 before Medical meals and Branch at bedtime. sucralfate 2018-0 Yes 1g Take 1 [facility] rs (CARAFATE) 8-12 tablet by ity of 1 gram 00:00: mouth [place] tablet 00 before Medical meals and Branch at bedtime. sucralfate 2018-0 Yes 1g Take 1 [facility] rs (CARAFATE) 8-12 tablet by ity of 1 gram 00:00: mouth [place] tablet 00 before Medical meals and Branch at bedtime. sucralfate 2018-0 Yes 1g Take 1 [facility] rs (CARAFATE) 8-12 tablet by ity of 1 gram 00:00: mouth [place] tablet 00 before Medical meals and Branch at bedtime. sucralfate 2018-0 2020- No 1g Take 1 Univ ers (CARAFATE) 8-12 02-25 tablet by ity of 1 gram 00:00: 00:00 mouth [place] tablet 00 :00 before Medical meals and Branch at bedtime. sucralfate 2018-0 2020- No 1g Take 1 Univ ers (CARAFATE) 8-12 02-25 tablet by ity of 1 gram 00:00: 00:00 mouth [place] tablet 00 :00 before Medical meals and Branch at bedtime. potassium 2018-0 Yes 20meq Take 20 [place] chloride SA 8-02 mEq by Geri e (K-DUR, 00:00: mouth. of KLOR-CON 00 Medicin M20) 20 MEQ e tablet KCL 20 mEq 2018-0 Yes 20meq Take 1 Univ ers tablet 8-02 tablet by ity of 00:00: mouth [place] 00 daily. Medical Branch KCL 20 mEq 2018-0 Yes 20meq Take 1 Univ ers tablet 8-02 tablet by ity of 00:00: mouth [place] 00 daily. Medical Branch KCL 20 mEq 2018-0 Yes 20meq Take 1 Univ ers tablet 8-02 tablet by ity of 00:00: mouth [place] 00 daily. Medical Branch KCL 20 mEq 2018-0 Yes 20meq Take 1 [facility] ers tablet 8-02 tablet by ity of 00:00: mouth [place] 00 daily. Medical Branch KCL 20 mEq 2018-0 Yes 20meq Take 1 Univ ers tablet 8-02 tablet by ity of 00:00: mouth [place] 00 daily. Medical Branch KCL 20 mEq 2018-0 Yes 20meq Take 1 Univ ers tablet 8-02 tablet by ity of 00:00: mouth [place] 00 daily. Medical Branch KCL 20 mEq 2018-0 Yes 20meq Take 1 Univ ers tablet 8-02 tablet by ity of 00:00: mouth [place] 00 daily. Medical Branch KCL 20 mEq 2018-0 Yes 20meq Take 1 [facility] ers tablet 8-02 tablet by ity of 00:00: mouth [place] 00 daily. Medical Branch KCL 20 mEq 2018-0 Yes 20meq Take 1 [facility] ers tablet 8-02 tablet by ity of 00:00: mouth [place] 00 daily. Medical Branch KCL 20 mEq 2018-0 Yes 20meq Take 1 Univ ers tablet 8-02 tablet by ity of 00:00: mouth [place] 00 daily. Medical Branch KCL 20 mEq 2018-0 Yes 20meq Take 1 Univ ers tablet 8-02 tablet by ity of 00:00: mouth [place] 00 daily. Medical Branch KCL 20 mEq 2018-0 Yes 20meq Take 1 Univ ers tablet 8-02 tablet by ity of 00:00: mouth [place] 00 daily. Medical Branch KCL 20 mEq 2018-0 2020- No 20meq Take 1 Uni vers tablet 8-02 02-25 tablet by ity of 00:00: 00:00 mouth [place] 00 :00 daily. Medical Branch KCL 20 mEq 2018-0 2020- No 20meq Take 1 Uni vers tablet 8-02 02-25 tablet by ity of 00:00: 00:00 mouth [place] 00 :00 daily. Medical Branch traZODONE 2018-0 Yes 50mg Take 1 Univer s 50 mg 6-19 tablet by ity of tablet 00:00: mouth at [place] [address] bedtime. Medical Branch traZODONE 2018-0 Yes 50mg Take 1 Univer s 50 mg 6-19 tablet by ity of tablet 00:00: mouth at [place] [address] bedtime. Medical Branch traZODONE 2018-0 Yes 50mg Take 1 Univer s 50 mg 6-19 tablet by ity of tablet 00:00: mouth at [place] [address] bedtime. Medical Branch traZODONE 2018-0 Yes 50mg Take 1 Univer s 50 mg 6-19 tablet by ity of tablet 00:00: mouth at [place] [address] bedtime. Medical Branch traZODONE 2018-0 Yes 50mg Take 1 Univer s 50 mg 6-19 tablet by ity of tablet 00:00: mouth at [place] [address] bedtime. Medical Branch traZODONE 2018-0 Yes 50mg Take 1 Univer s 50 mg 6-19 tablet by ity of tablet 00:00: mouth at [place] [address] bedtime. Medical Branch traZODONE 2018-0 Yes 50mg Take 1 Univer s 50 mg 6-19 tablet by ity of tablet 00:00: mouth at [place] [address] bedtime. Medical Branch traZODONE 2018-0 Yes 50mg Take 1 Univer s 50 mg 6-19 tablet by ity of tablet 00:00: mouth at [place] [address] bedtime. Medical Branch traZODONE 2018-0 Yes 50mg Take 1 Univer s 50 mg 6-19 tablet by ity of tablet 00:00: mouth at [place] [address] bedtime. Medical Branch traZODONE 2018-0 Yes 50mg Take 1 Univer s 50 mg 6-19 tablet by ity of tablet 00:00: mouth at [place] [address] bedtime. Medical Branch traZODONE 2018-0 Yes 50mg Take 1 Univer s 50 mg 6-19 tablet by ity of tablet 00:00: mouth at [place] [address] bedtime. Medical Branch traZODONE 2018-0 Yes 50mg Take 1 Univer s 50 mg 6-19 tablet by ity of tablet 00:00: mouth at [place] [address] bedtime. Medical Branch traZODONE 2018-0 2020- No 50mg Take 1 Unive rs 50 mg 6-19 02-25 tablet by ity of tablet 00:00: 00:00 mouth at [place] 00 :00 bedtime. Medical Branch traZODONE 2018-0 2020- No 50mg Take 1 Unive rs 50 mg 09-18-25 tablet by ity of tablet 00:00: 00:00 mouth at [place] 00 :00 bedtime. Medical Branch METHOTREXAT Yes [id number] Three tabs [facility] E SODIUM 7-31 PO Once a ity of 2.5 MG ORAL 00:00: week [place] TAB 00 Medical Branch FOLIC ACID Yes [id number] One tab PO [facility] 1 MG ORAL 7-31 Daily ity of TAB 00:00: [place] Medical Branch METHOTREXAT Yes [id number] Three tabs [facility] E SODIUM 7-31 PO Once a ity of 2.5 MG ORAL 00:00: week [place] TAB Medical Branch FOLIC ACID Yes [id number] One tab PO [facility] 1 MG ORAL 7-31 Daily ity of TAB 00:00: [place] Medical Branch METHOTREXAT Yes [id number] Three tabs [facility] E SODIUM 7-31 PO Once a ity of 2.5 MG ORAL 00:00: week [place] TAB 00 Medical Branch FOLIC ACID Yes [id number] One tab PO [facility] 1 MG ORAL 7-31 Daily ity of TAB 00:00: [place] 00 Medical Branch METHOTREXAT Yes [id number] Three tabs [facility] E SODIUM 7-31 PO Once a ity of 2.5 MG ORAL 00:00: week [place] TAB 00 Medical Branch FOLIC ACID Yes [id number] One tab PO [facility] 1 MG ORAL 7-31 Daily ity of TAB 00:00: [place] 00 Medical Branch METHOTREXAT Yes [id number] Three tabs [facility] E SODIUM 7-31 PO Once a ity of 2.5 MG ORAL 00:00: week [place] TAB 00 Medical Branch FOLIC ACID Yes [id number] One tab PO [facility] 1 MG ORAL 7-31 Daily ity of TAB 00:00: [place] Medical Branch METHOTREXAT Yes [id number] Three tabs [facility] E SODIUM 7-31 PO Once a ity of 2.5 MG ORAL 00:00: week [place] TAB 00 Medical Branch FOLIC ACID Yes [id number] One tab PO [facility] 1 MG ORAL 7-31 Daily ity of TAB 00:00: [place] 00 Medical Branch METHOTREXAT Yes [id number] Three tabs [facility] E SODIUM 7-31 PO Once a ity of 2.5 MG ORAL 00:00: week [place] TAB 00 Medical Branch FOLIC ACID 2008-0 Yes [id number] One tab PO [facility] 1 MG ORAL 7-31 Daily ity of TAB 00:00: [place] 00 Medical Branch METHOTREXAT 0 Yes [id number] Three tabs [facility] E SODIUM 7-31 PO Once a ity of 2.5 MG ORAL 00:00: week [place] TAB 00 Medical Branch FOLIC ACID 2007-0 Yes [id number] One tab PO [facility] 1 MG ORAL 7-31 Daily ity of TAB 00:00: [place] 00 Medical Branch METHOTREXAT 0 Yes [id number] Three tabs [facility] E SODIUM 7-31 PO Once a ity of 2.5 MG ORAL 00:00: week [place] TAB 00 Medical Branch FOLIC ACID 2007-0 Yes [id number] One tab PO [facility] 1 MG ORAL 7-31 Daily ity of TAB 00:00: [place] 00 Medical Branch METHOTREXAT 0 Yes [id number] Three tabs [facility] E SODIUM 7-31 PO Once a ity of 2.5 MG ORAL 00:00: week [place] TAB 00 Medical Branch FOLIC ACID 2007-0 Yes [id number] One tab PO [facility] 1 MG ORAL 7-31 Daily ity of TAB 00:00: [place] 00 Medical Branch METHOTREXAT 2007-0 Yes [id number] Three tabs [facility] E SODIUM 7-31 PO Once a ity of 2.5 MG ORAL 00:00: week [place] TAB 00 Medical Branch FOLIC ACID 2008-0 Yes [id number] One tab PO [facility] 1 MG ORAL 7-31 Daily ity of TAB 00:00: [place] 00 Medical Branch METHOTREXAT 2007-0 Yes [id number] Three tabs [facility] E SODIUM 7-31 PO Once a ity of 2.5 MG ORAL 00:00: week [place] TAB 00 Medical Branch FOLIC ACID 2008-0 Yes [id number] One tab PO [facility] 1 MG ORAL 7-31 Daily ity of TAB 00:00: [place] 00 Medical Branch METHOTREXAT 2007-0 2020- No [id number] Three tabs [facility] E SODIUM 7-31 02-25 PO Once a ity o f 2.5 MG ORAL 00:00: 00:00 week [place] TAB 00 :00 Medical Branch FOLIC ACID 2007-0 2020- No [id number] One tab PO [facility] 1 MG ORAL 7-31 02-25 Daily ity of TAB 00:00: 00:00 [place] 00 :00 Medical Branch METHOTREXAT 2020- No [id number] Three tabs [facility] E SODIUM 10-30 PO Once a ity o f 2.5 MG ORAL 00:00: 00:00 week [place] TAB 00 :00 Medical Branch FOLIC ACID 2020- No [id number] One tab PO [facility] 1 MG ORAL 10-30 Daily ity of TAB 00:00: 00:00 [place] 00 :00 Medical Branch nitroglycer Yes Place [facility] in 08-07 under the [place] (NITROSTAT) 00:00: tongue. of 0.4 mg 00 Medicin sublingual e tablet NITROGLYCER Yes 1 Tab SL Un ean IN 0.4 MG 5-08 Q5MIN PRN ity o f SL SUBL 00:00: [place] 00 Medical Branch NITROGLYCER Yes 1 Tab SL Un ean IN 0.4 MG 5-08 Q5MIN PRN ity o f SL SUBL 00:00: [place] 00 Medical Branch NITROGLYCER Yes 1 Tab SL Un ean IN 0.4 MG 5-08 Q5MIN PRN ity o f SL SUBL 00:00: [place] 00 Medical Branch NITROGLYCER Yes 1 Tab SL Un ean IN 0.4 MG 5-08 Q5MIN PRN ity o f SL SUBL 00:00: [place] 00 Medical Branch NITROGLYCER Yes 1 Tab SL Un ean IN 0.4 MG 5-08 Q5MIN PRN ity o f SL SUBL 00:00: [facility] NITROGLYCER Yes 1 Tab SL Un ean IN 0.4 MG 5-08 Q5MIN PRN ity o f SL SUBL 00:00: [facility] NITROGLYCER Yes 1 Tab SL Un ean IN 0.4 MG 5-08 Q5MIN PRN ity o f SL SUBL 00:00: [facility] NITROGLYCER Yes 1 Tab SL Un ean IN 0.4 MG 5-08 Q5MIN PRN ity o f SL SUBL 00:00: [facility] NITROGLYCER Yes 1 Tab SL Un ean IN 0.4 MG 5-08 Q5MIN PRN ity o f SL SUBL 00:00: [facility] NITROGLYCER 0 Yes 1 Tab SL Un ean IN 0.4 MG 5-08 Q5MIN PRN ity o f SL SUBL 00:00: [facility] NITROGLYCER 0 Yes 1 Tab SL Un ean IN 0.4 MG 5-08 Q5MIN PRN ity o f SL SUBL 00:00: [facility] NITROGLYCER 0 Yes 1 Tab SL Un ean IN 0.4 MG 5-08 Q5MIN PRN ity o f SL SUBL 00:00: [facility] NITROGLYCER 0 Yes 1 Tab SL Un ean IN 0.4 MG 5-08 Q5MIN PRN ity o f SL SUBL 00:00: [facility] NITROGLYCER 0 Yes 1 Tab SL Un ean IN 0.4 MG 5-08 Q5MIN PRN ity o f SL SUBL 00:00: [facility] NITROGLYCER 0 Yes 1 Tab SL Un ean IN 0.4 MG 5-08 Q5MIN PRN ity o f SL SUBL 00:00: [facility] NITROGLYCER 0 Yes 1 Tab SL Un ean IN 0.4 MG 5-08 Q5MIN PRN ity o f SL SUBL 00:00: [facility] NITROGLYCER 2007-0 Yes 1 Tab SL Un ean IN 0.4 MG 5-08 Q5MIN PRN ity o f SL SUBL 00:00: [facility] NITROGLYCER 0 Yes 1 Tab SL Un ean IN 0.4 MG 5-08 Q5MIN PRN ity o f SL SUBL 00:00: [facility] NITROGLYCER 0 Yes 1 Tab SL Un ean IN 0.4 MG 5-08 Q5MIN PRN ity o f SL SUBL 00:00: [facility] NITROGLYCER 0 Yes 1 Tab SL Un ean IN 0.4 MG 5-08 Q5MIN PRN ity o f SL SUBL 00:00: [facility] NITROGLYCER 0 Yes 1 Tab SL Un ean IN 0.4 MG 5-08 Q5MIN PRN ity o f SL SUBL 00:00: [facility] Vital Signs Vital Name Observation Time Observation Value Comments Source WEIGHT 2020-03-03 11:02:00 91.491 kg Systolic blood 2019-05-27 15:46:00 133 mm[Hg] Univer sity of pressure [facility] Diastolic blood 2019-05-27 15:46:00 69 mm[Hg] Unive rsity of pressure [facility] Heart rate 2019-05-27 15:46:00 67 /min [facility] Respiratory rate 2019-05-27 15:46:00 19 /min Univ ersity of [facility] Body height 2019-05-27 15:46:00 180.3 cm [facility] Body weight 2019-05-27 15:46:00 91.853 kg [facility] BMI 2019-05-27 15:46:00 28.24 kg/m2 [facility] Oxygen saturation in 2019-05-27 15:46:00 97 /min University of Arterial blood by [place] [facility] Pulse oximetry Branch Systolic blood 2019-05-27 15:46:00 133 mm[Hg] Univer sity of pressure [facility] Diastolic blood 2019-05-27 15:46:00 69 mm[Hg] Unive rsity of pressure [facility] Branch Heart rate 2019-05-27 15:46:00 67 /min [facility] ty [facility] Respiratory rate 2019-05-27 15:46:00 19 /min Univ ersity of [facility] Body height 2019-05-27 15:46:00 180.3 cm [facility] Body weight 2019-05-27 15:46:00 91.853 kg [facility] BMI 2019-05-27 15:46:00 28.24 kg/m2 [facility] Oxygen saturation in 2019-05-27 15:46:00 97 /min University of Arterial blood by [place] [facility] Pulse oximetry Branch Procedures Procedure Date / Time Performing Clinician Source Performed MEDICATION CORRESPONDENCE 2020-05-20 06:01:00 Doctor Smith, [facility] [place] [facility] AUTHORIZATION FOR RELEASE 2019-12-25 05:01:00 Doctor Luis, [facility] [place] [facility] AUTHORIZATION FOR RELEASE 2019-06-26 05:01:00 Doctor Smith, [facility] [place] [facility] Wall SCANNED LAB RESULTS 2018-12-04 05:01:[address] [facility] [place] [facility] Plan of Care Planned Activity Planned Date Details Comments Source Future Scheduled RI CORNEAL SMEAR Ordered: [facility] of Test [code = 80271] 01/08/2019 Medicine Future Scheduled COLON CANCER [facility] of Test SCREENING: Medicine COLONOSCOPY [code = COLON CANCER SCREENING: COLONOSCOPY] Future Scheduled MAMMOGRAM ANNUAL [facility] of Test [code = MAMMOGRAM Medicine ANNUAL] Future Scheduled TETANUS SHOT (ADULT) [facility] Test [code = TETANUS SHOT Medicin e (ADULT)] Future Scheduled HEPATITIS C [facility] of Test SCREENING [code = Medicine HEPATITIS C SCREENING] Future Scheduled HIV SCREENING [code [facility] of Test = HIV SCREENING] Medicine Future Scheduled CERVICAL CANCER [facility] ollege of Test SCREENING 3 YEAR Medicine FOLLOW UP [code = CERVICAL CANCER SCREENING 3 YEAR FOLLOW UP] Future Scheduled FLU VACCINE > 6 [facility] C ollege of Test MONTHS [code = FLU Medicine VACCINE > 6 MONTHS] Encounters Start End Encounter Admission Attending Care Care Encounter Source Date/Time Date/Time Type Type Clinicians Facility Department ID 2020-09-29 2020-09-29 Outpatient SHIRAZ, [facility] [id number] [place] 00:00:00 00:00:00 DEVORA Rodriguez5 Method i 2020-09-16 2020-09-22 Inpatient FORCE, [facility] [id number] [place] 00:00:00 00:00:00 KRISTA Foley thodi 2020-08-19 2020-08-19 Outpatient NITIN [facility] [id number] [place] 00:00:00 00:00:00 , GM 849 Metho di 2020-08-19 2020-08-19 Outpatient NITIN [facility] [id number] [place] 00:00:00 00:00:00 , GM 101 Metho di 2020-07-19 2020-07-27 Inpatient NITIN [facility] [id number] [place] 00:00:00 00:00:00 , GM [address] 2020-07-14 2020-07-14 Outpatient NITIN [facility] [id number] [place] 00:00:00 00:00:00 , GM [address] 2020-07-14 2020-07-14 Outpatient NITIN [facility] [id number] [place] 00:00:00 00:00:00 , GM 428 Metho di 2020-07-14 2020-07-14 Outpatient NITIN [facility] [id number] [place] 00:00:00 00:00:00 , GM 182 Metho di 2020-06-23 2020-06-23 Outpatient NITIN [facility] [id number] [place] 00:00:00 00:00:00 , GM 678 Metho di 2020-06-23 2020-06-23 Outpatient NITIN [facility] [id number] [place] 00:00:00 00:00:00 , GM 463 Metho di 2020-06-23 2020-06-23 Outpatient NITIN [facility] [id number] [place] 00:00:00 00:00:00 , GM 967 Metho di 2020-06-21 2020-06-21 Refill Cesar, [facility] [id number] [place] [address] 00:00:00 00:00:00 Anna Marie Giordano [id number] [id number] [phone] [place] dical [facility] 059 [facility] 2020-06-21 2020-06-21 Refill Cesar, COMB 1.2.840.114 [id number] 00:00:00 00:00:00 Anna Marie Spurger [id number] [place] [phone] 2020-06-09 2020-06-09 Patient Tremaine, COCHARLY 1.2.840.114 [id number] [facility] 00:00:00 00:00:00 Outreach Jeremy PRIMARY [id number] i ty of [facility] [id number] [phone] Az dical [address] [place] [address] 2020-06-09 2020-06-09 Patient Tremaine, [facility] 1.2.840.114 [id number] 00:00:00 00:00:00 Outreach Jeremy PRIMARY [id number] [place] [facility] [id number] PAVILLION [phone] 388 2020-06-01 2020-06-01 Outpatient Checo GUERRERO [facility] [id number] Univers 09:00:00 09:00:00 FRANCISRUBA [id number] ity o [facility] 2020-05-31 2020-05-31 Outpatient Checo GUERRERO [facility] [id number] [facility] 09:00:00 09:00:00 ANNA MARIE [id number] ity o [facility] 2020-05-20 2020-05-20 Orders Doctor JEREMY 1.2.840.114 [id number] [facility] 00:00:00 00:00:00 Only UnassignedLUCIAN 350.1.13.10 ity [facility] 4.2.7.2.686 Sharif as [phone] [address] 2020-05-20 2020-05-20 Orders Doctor JEREMY Terry.2.840.114 [id number] 00:00:00 00:00:00 Only UnassignedLUCIAN [id number] [facility] [id number] [phone] 009 2020-04-28 2020-04-28 Outpatient EL LETSOU, [facility] [id number] [facility] 00:00:00 00:00:00 [place] 2020-03-22 2020-03-22 Outpatient LETSOU, [facility] [id number] SLE 00:00:00 00:00:00 [place] 2020-03-22 2020-03-22 Outpatient EL LETSOU, [facility] [id number] [facility] 00:00:00 00:00:00 [place] 2020-03-03 2020-03-03 Outpatient EL LETSOU, [facility] [id number] SLE 00:00:00 00:00:00 [place] 2020-02-17 2020-02-17 Outpatient BRIANHELEN, [facility] [id number] [place] [address] 00:00:00 00:00:[address] NANI [address] 2019-12-25 2019-12-25 Orders Doctor JEREMY Nicole2.840.114 [id number] [facility] 00:00:00 00:00:00 Only Unassigned, LUCIAN [id number] ity of [place] [facility] [id number] Sharif as [phone] [address] 2019-12-25 2019-12-25 Orders Doctor JEREMY 1.2.840.114 [id number] 00:00:00 00:00:00 Only Unassigned, LUCIAN [id number] [place] [facility] [id number] [phone] [facility] 2019-08-04 2019-08-04 Refill Cesar, [facility] 1.2.840.114 [id number] Univers 00:00:00 00:00:00 Qiangjun Spurger [id number] [id number] [phone] [address] 2019-08-04 2019-08-04 Refill Cesar, [facility] 1.2.840.114 [id number] 00:00:00 00:00:00 Qiangjun Spurger [id number] [place] [id number] Professio [phone] [address] 2019-07-29 2019-07-29 Refill Cesar, [facility] 1.2.840.114 [id number] Univers 00:00:00 00:00:00 Qiangjun Spurger [id number] [place] [phone] [address] 2019-07-29 2019-07-29 Refill Cesar, COM[facility] 1.2.840.114 [id number] 00:00:00 00:00:00 Qiangjun Spurger [id number] [place] [id number] Professio [phone] [address] 2019-06-26 2019-06-26 Orders Doctor JEREMY 1.2.840.114 [id number] Univers 00:00:00 00:00:00 Only Unassigned, LUCIAN [id number] ity of [place] [facility] [id number] Sharif as [phone] [address] 2019-06-26 2019-06-26 Orders Doctor JEREMY 1.2.840.114 [id number] 00:00:00 00:00:00 Only Unassigned, LUCIAN 350.1.13.10 [place] [facility] [id number] [phone] [facility] 2019-05-29 2019-05-29 Outpatient R [facility] [id number] Univers 08:00:00 08:00:00 [id number] ity [facility] 2019-05-27 2019-05-27 Office [facility] 1.2.840.114 [id number] Univers 09:24:52 10:34:57 Visit Anna Marie Giordano [id number] [place] [phone] [address] 2019-05-27 2019-05-27 Office [facility] 1.2.840.114 [id number] 09:24:52 10:34:57 Visit Anna Marie Giordano [id number] [place] [id number] Professio [phone] [address] 2019-05-27 2019-05-27 [facility] [id number] Univers 09:20:00 09:20:00 ANNA MARIE ulloa o f [facility] 2019-05-14 2019-05-14 Refill [facility] 1.2.840.114 [id number] Univers 00:00:00 00:00:00 Anna Marie Giordano [id number] [id number] [phone] Az dic[address] 2019-05-07 2019-05-07 [facility] 1.2.840.114 [id number] Univers 00:00:00 00:00:00 Anna Marie Giordano [id number] [id number] [phone] Az dic[address] 2019-04-16 2019-04-16 Patient Doctor [facility] 1.2.840.114 [id number] Univers 00:00:00 00:00:00 Secure Msg Unassigned, Pasquale 350.1.13.10 ity [place]2.[place].2.[place] [phone] [address] 2019-04-13 2019-04-13 [facility], [facility] 1.2.840.114 [id number] Univers 00:00:00 00:00:00 Carolynenuviaruba Pasquale 350.1.13.10 [place].2.[place] [phone] [address] 2019-01-08 2019-01-08 Office JOSH Gtz 1.2.840.114 [id number] [facility] 14:16:47 17:54:57 Visit Esther Y AMBULATOR 350.1.13.21 College Y 0.2.7.2.686 of [phone] [facility] 300 e 2019-01-08 2019-01-08 Office LAKESHIA Gtz 1.2.840.114 [id number] 14:16:47 17:54:57 Visit Esther Y AMBULATOR 350.1.13.21 Y 0.2.7.2.686 [phone] [facility] 2018-12-17 2018-12-17 Telephone Cesar, [facility] [id number] Univers 00:00:00 00:00:00 Anna Marie Giordano [id number] [place] [phone] [address] 2018-12-13 2018-12-13 Telephone [facility] [id number] Univers 00:00:00 00:00:00 Francisruba Pasquale 350.1.13.10 it[place].2.[place] [phone] [address] 2018-12-12 2018-12-12 [facility] 1.2.840.114 [id number] Univers 00:00:00 00:00:00 Qiangjun Spurger 350.1.13.10 it[place] [phone] [place] 816329 [facility] 2018-12-05 2018-12-05 Telephone [facility], [facility] [id number] [id number] Univers 00:00:00 00:00:00 Anna Marie Spurger [id number] [place].2.[place] [phone] [address] 2018-12-05 2018-12-05 Telephone [facility] [id number] Univers 00:00:00 00:00:00 Anna Marie Giordano [id number] [place].2.[place] [phone] [address] 2018-12-04 2018-12-04 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 [address] 2018-12-04 2018-12-04 Orders Doctor JEREMY 1.2.840.114 [id number] Univers 00:00:00 00:00:00 Only Unassigned, LUCIAN 350.1.13.10 ity of [place] [facility] 4.2.7.2.686 Sharif as [phone] [facility] [address] 2018-11-15 2018-11-15 Telephone [facility] 1.2.842.126 [id number] Univers 00:00:00 00:00:00 Anna Marie Giordano 350.1.13.10 [place].2.[place] [phone] [address] Results Test Description Test Time Test Comments Results Result Comments Source SARS-CoV-2 (COVID-19) RNA [Presence] in Respiratory sp ecimen by 2020-07-14 19:06:02 ANIBAL with probe detection Test Item Value Reference Range Interpretation Comme nts SARS-CoV-2 (COVID-19) RNA [Presence] in Respiratory Not detected No t-Detected specimen by ANIBAL with probe detection (test code = 47409-7)
[2021-02-15] MEDS ORDERED: LIDOCAINE 1% W/EPI 1:100,000 MDV 20 ML VIAL ONE ×2 (20:15→20:24)
--- NOTE | 2021-02-15 20:51 | ER ---
Nurse's Notes [facility] Jacy Name: Celsa Lorenzo Age: 66 yrs Sex: Female : 1955 Arrival Date: 02/15/2021 Time: 19:42 Bed 12 Private MD: Diagnosis: Cutaneous abscess of back [any part, except buttock]-sebaceous cyst Presentation: 02/15 19:54 Chief complaint: Patient states: Pt states Lipoma on upper back is infected. Pt states df1 it opened up and draining. Coronavirus screen: Vaccine status: Patient reports being unvaccinated. Client denies travel out of the [place] in the last 14 days. At this time, the client does not indicate any symptoms associated with coronavirus-19. Ebola Screen: Patient negative for fever greater than or equal to 101.5 degrees Fahrenheit, and additional compatible Ebola Virus Disease symptoms Patient denies exposure to infectious person. Patient denies travel to an Ebola-affected area in the 21 days before illness onset. Initial Sepsis Screen: Does the patient meet any 2 criteria? No. Patient's initial sepsis screen is negative. Does the patient have a suspected source of infection? No. Patient's initial sepsis screen is negative. Risk Assessment: Do you want to hurt yourself or someone else? Patient reports no desire to harm self or others. Onset of symptoms was February 08, 2021. 19:54 Method Of Arrival: Ambulatory df1 19:54 Acuity: MAXIMO 3 df1 Historical: - Allergies: 19:57 Betadine; df1 19:57 Iodine; Topical only; df1 - Home Meds: 19:57 Eliquis 5 mg Oral tab 1 tab 2 times per day [Active]; Lasix 40 mg Oral tab 20mg at df1 night [Active]; Wellbutrin 150mg Oral 1 tab daily [Active]; Zoloft 50 mg Oral tab 1 tab once daily [Active]; Xeljanz Oral [Active]; metoprolol PO BID [Active]; - PMHx: 19:57 ADD/ADHD; Atrial Fib; cardioversion; CHF; COPD; Hypertension; mitral valve stenosis; df1 pulmonary HTN; resp failure; Rheumatoid Arthritis; - PSHx: 19:57 Appendectomy; Tonsillectomy; tubal ligation; section; Cholecystectomy; mitral 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 Last tetanus immunization: < 10 years ago Pneumococcal vaccine is up to date. - Family history:: not pertinent. Screenin:29 Abuse screen: Denies threats or abuse. Nutritional screening: No deficits noted. vg1 Tuberculosis screening: No symptoms or risk factors identified. Fall Risk No fall in past 12 months (0 pts). No secondary diagnosis (0 pts). No IV (0 pts). Ambulatory Aid- None/Bed Rest/Nurse Assist (0 pts). Gait- Normal/Bed Rest/Wheelchair (0 pts) Mental Status- Oriented to own ability (0 pts). Total Callejas Fall Scale indicates No Risk (0-24 pts). Assessment: 20:11 General: Appears in no apparent distress. uncomfortable, Behavior is calm, cooperative. vg1 Pain: Complains of pain in mid upper back Pain currently is 10 out of 10 on a pain scale. Neuro: Level of Consciousness is awake, alert, obeys commands, Oriented to person, place, time, situation. Cardiovascular: Patient's skin is warm and dry. Respiratory: Airway is patent Respiratory effort is even, unlabored. GI: No signs and/or symptoms were reported involving the gastrointestinal system. : No signs and/or symptoms were reported regarding the genitourinary system. EENT: No signs and/or symptoms were reported regarding the EENT system. Derm: Bruising that is dark purple, Abscess located on mid upper back is half dollar sized, has purulent drainage, has foul odor, is hot to touch, is red, is raised. Musculoskeletal: Circulation, motion, and sensation intact. 21:27 Reassessment: Patient appears in no apparent distress at this time. Patient and/or vg1 family updated on plan of care and expected duration. Pain level reassessed. Patient is alert, oriented x 3, equal unlabored respirations, skin warm/dry/pink. Patient denies pain at this time. Patient states feeling better. Vital Signs: 19:54 BP 130 / 85; Pulse 113; Resp 18; Temp 98.5; Pulse Ox 100% on R/A; Weight 95.25 kg; df1 Height 5 ft. 9 in. (175.26 cm); Pain 5/10; 21:00 BP 136 / 88; Pulse 97; Resp 18; Pulse Ox 98% on R/A; vg1 19:54 Body Mass Index 31.01 (95.25 kg, 175.26 cm) df1 ED Course: 19:42 Patient arrived in ED. wm 19:45 Jerald Perdue MD is Attending Physician. graciela 19:57 Triage completed. df1 20:05 Letha Kuo RN is Primary Nurse. vg1 20:10 Lily Giron, EDWINA is Primary Nurse. ld1 20:11 Primary Nurse role handed off by Lily Giron, EDWINA vg1 20:11 Letha Kuo RN is Primary Nurse. vg1 20:49 Mack Kovacs MD is Referral Physician. graciela 21:29 Patient has correct armband on for positive identification. Bed in low position. Call vg1 light in reach. Side rails up X 1. 21:29 No provider procedures requiring assistance completed. Patient did not have IV access vg1 during this emergency room visit. 21:30 Arm band placed on. vg1 Administered Medications: 21:02 Drug: Lidocaine-Epinephrine -1%: (1:100,000) 20 ml {Note: completed by Dr Perdue.} vg1 Volume: 20 ml; Route: Infiltration; 21:28 Follow up: Response: No adverse reaction vg1 21:10 Drug: Bactroban (mupirocin) Ointment 2 % 1 application Route: Topical; Site: affected vg1 area; 21:28 Follow up: Response: Medication administered at discharge. vg1 21:13 Drug: Bactrim (trimethoprim-sulfamethoxazole) (160 mg-800 mg (DS) 1 tablet Route: PO; vg1 21:28 Follow up: Response: Medication administered at discharge. vg1 21:15 Drug: Doxycycline 200 mg Route: PO; vg1 21:28 Follow up: Response: Medication administered at discharge. vg1 Outcome: 20:50 Discharge ordered by . graciela 21:29 Discharged to home ambulatory. vg1 21:29 Condition: stable 21:29 Discharge instructions given to patient, Instructed on discharge instructions, follow up and referral plans. medication usage, Demonstrated understanding of instructions, follow-up care, medications, Prescriptions given X 4. 21:30 Patient left the ED. vg1 Signatures: Jerald Perdue MD MD cha Garcia, Victoria, RN RN vg1 Lily Giron RN RN ld1 Martha Hoyos Gena Wiggins df1 Corrections: (The following items were deleted from the chart) : Social history: Smoking status: Patient denies any tobacco usage or history of. vg1 vg1 20: General: Appears in no apparent distress. comfortable, Behavior is calm, vg1 cooperative, appropriate for age, vg1 : Pain: Denies pain. vg1 vg1 20: Neuro: Level of Consciousness is awake, alert, obeys commands, Oriented to vg1 person, place, time, situation, Appropriate for age vg1 : Cardiovascular: Capillary refill < 3 seconds Patient's skin is warm and dry. vg1 vg1 : Respiratory: Airway is patent Respiratory effort is even, unlabored, Respiratory vg1 pattern is regular, symmetrical, vg1 : GI: Abdomen is flat, non-distended, vg1 vg1 : : No signs and/or symptoms were reported regarding the genitourinary system. vg1vg1 :12 20: EENT: No signs and/or symptoms were reported regarding the EENT system. vg1 vg1 20: Derm: Wound noted right scapular area Abscess located on right scapular area vg1 vg1 20: Musculoskeletal: No signs and/or symptoms reported regarding the musculoskeletal vg1 system. vg1
--- NOTE | 2021-02-15 20:51 | EDPHYS ---
Physician Documentation [facility] Name: Celsa Lorenzo Age: 66 yrs Sex: Female : 1955 Arrival Date: 02/15/2021 Time: 19:42 Bed 12 Private MD: RUTHANN Physician Jerald Perdue HPI: 02/15 20:44 This 66 yrs old Female presents to ER via Ambulatory with complaints of Cyst graciela on back is infected per patient. 20:44 The patient presents with an abscess of the back, The patient presents with cellulitis graciela of the back. Description: The affected area is moderate sized, confluent, draining, erythematous, fluctuant. Onset: The symptoms/episode began/occurred 1 week(s) ago. Possible cause(s): sebaceous cyst. Associated signs and symptoms: The patient has no apparent associated signs or symptoms. Modifying factors: the symptoms are alleviated by remaining still, the symptoms are aggravated by pressure, squeezing the lesion and expressing the contents. Severity of symptoms: At their worst the symptoms were mild, moderate, in the emergency department the symptoms are unchanged. The patient has experienced similar episodes in the past, multiple times. Historical: - Allergies: 19:57 Betadine; df1 19:57 Iodine; Topical only; df1 - Home Meds: 19:57 Eliquis 5 mg Oral tab 1 tab 2 times per day [Active]; Lasix 40 mg Oral tab 20mg at df1 night [Active]; Wellbutrin 150mg Oral 1 tab daily [Active]; Zoloft 50 mg Oral tab 1 tab once daily [Active]; Xeljanz Oral [Active]; metoprolol PO BID [Active]; - PMHx: 19:57 ADD/ADHD; Atrial Fib; cardioversion; CHF; COPD; Hypertension; mitral valve stenosis; df1 pulmonary HTN; resp failure; Rheumatoid Arthritis; - PSHx: 19:57 Appendectomy; Tonsillectomy; tubal ligation; section; Cholecystectomy; mitral 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 Last tetanus immunization: < 10 years ago Pneumococcal vaccine is up to date. - Family history:: not pertinent. ROS: 20:44 Constitutional: Negative for fever, chills, and weight loss, Eyes: Negative for injury, graciela pain, redness, and discharge, ENT: Negative for injury, pain, and discharge, Neck: Negative for injury, pain, and swelling, Cardiovascular: Negative for chest pain, palpitations, and edema, Respiratory: Negative for shortness of breath, cough, wheezing, and pleuritic chest pain, Abdomen/GI: Negative for abdominal pain, nausea, vomiting, diarrhea, and constipation, : Negative for injury, bleeding, discharge, and swelling, MS/Extremity: Negative for injury and deformity, Neuro: Negative for headache, weakness, numbness, tingling, and seizure, Psych: Negative for depression, anxiety, suicide ideation, homicidal ideation, and hallucinations, Allergy/Immunology: Negative for hives, rash, and allergies, Endocrine: Negative for neck swelling, polydipsia, polyuria, polyphagia, and marked weight changes, Hematologic/Lymphatic: Negative for swollen nodes, abnormal bleeding, and unusual bruising. 20:44 Back: Positive for pain at rest, of the thoracic area. 20:44 Skin: Positive for abscess, cellulitis, erythema, swelling. Exam: 20:44 Constitutional: This is a well developed, well nourished patient who is awake, alert, graciela and in no acute distress. Head/Face: Normocephalic, atraumatic. Eyes: Pupils equal round and reactive to light, extra-ocular motions intact. Lids and lashes normal. Conjunctiva and sclera are non-icteric and not injected. Cornea within normal limits. Periorbital areas with no swelling, redness, or edema. ENT: Nares patent. No nasal discharge, no septal abnormalities noted. Tympanic membranes are normal and external auditory canals are clear. Oropharynx with no redness, swelling, or masses, exudates, or evidence of obstruction, uvula midline. Mucous membranes moist. Neck: Trachea midline, no thyromegaly or masses palpated, and no cervical lymphadenopathy. Supple, full range of motion without nuchal rigidity, or vertebral point tenderness. No Meningismus. Chest/axilla: Normal chest wall appearance and motion. Nontender with no deformity. No lesions are appreciated. Cardiovascular: Regular rate and rhythm with a normal S1 and S2. No gallops, murmurs, or rubs. Normal PMI, no JVD. No pulse deficits. Respiratory: Lungs have equal breath sounds bilaterally, clear to auscultation and percussion. No rales, rhonchi or wheezes noted. No increased work of breathing, no retractions or nasal flaring. Abdomen/GI: Soft, non-tender, with normal bowel sounds. No distension or tympany. No guarding or rebound. No evidence of tenderness throughout. Back: No spinal tenderness. No costovertebral tenderness. Full range of motion. MS/ Extremity: Pulses equal, no cyanosis. Neurovascular intact. Full, normal range of motion. Neuro: Awake and alert, GCS 15, oriented to person, place, time, and situation. Cranial nerves II-XII grossly intact. Motor strength 5/5 in all extremities. Sensory grossly intact. Cerebellar exam normal. Normal gait. Psych: Awake, alert, with orientation to person, place and time. Behavior, mood, and affect are within normal limits. 20:44 Skin: abscess, that is moderate sized, of the back, cellulitis, that is mild, that is moderate, induration, that is mild is noted. Vital Signs: 19:54 BP 130 / 85; Pulse 113; Resp 18; Temp 98.5; Pulse Ox 100% on R/A; Weight 95.25 kg; df1 Height 5 ft. 9 in. (175.26 cm); Pain 5/10; 21:00 BP 136 / 88; Pulse 97; Resp 18; Pulse Ox 98% on R/A; vg1 19:54 Body Mass Index 31.01 (95.25 kg, 175.26 cm) df1 Procedures: 20:48 I \T\ D: Incision and drainage was performed for an abscess of the Prepped with [facility] cyclohexadine. Anesthetized with 20 ml's 1% Lidocaine w/ Epi. Incised with #11 blade. I \T\ D: Drained moderate amount purulent fluid. Packed with iodoform gauze, Dressing: non-Adherent dressing, the patient tolerated the procedure well. MDM: 20:03 Patient medically screened. [facility] 20:47 Differential diagnosis: abscess, cellulitis, insect bite. Data reviewed: vital signs, [facility] nurses notes. Data interpreted: cafeteria monitor: rate is 113 beats/min, rhythm is regular, Pulse oximetry: on room air is 100 %. Counseling: I had a detailed discussion with the patient and/or guardian regarding: the historical points, exam findings, and any diagnostic results supporting the discharge/admit diagnosis, the need for outpatient follow up, for definitive care, a general surgeon. 02/15 20:52 Order name: Wound Culture [facility] 02/15 20:44 Order name: Dressing - Wound; Complete Time: 21:19 [facility] 02/15 20:44 Order name: Gloves, Sterile; Complete Time: 21:02 [facility] 02/15 20:44 Order name: Setup Suture Tray; Complete Time: 21:02 graciela Administered Medications: 21:02 Drug: Lidocaine-Epinephrine -1%: (1:100,000) 20 ml {Note: completed by Dr Perdue.} vg1 Volume: 20 ml; Route: Infiltration; 21:28 Follow up: Response: No adverse reaction vg1 21:10 Drug: Bactroban (mupirocin) Ointment 2 % 1 application Route: Topical; Site: affected vg1 area; 21:28 Follow up: Response: Medication administered at discharge. vg1 21:13 Drug: Bactrim (trimethoprim-sulfamethoxazole) (160 mg-800 mg (DS) 1 tablet Route: PO; vg1 21:28 Follow up: Response: Medication administered at discharge. vg1 21:15 Drug: Doxycycline 200 mg Route: PO; vg1 21:28 Follow up: Response: Medication administered at discharge. vg1 Disposition Summary: 02/15/21 20:50 Discharge Ordered Location: Home graciela Problem: new graciela Symptoms: have improved graciela Condition: Stable graciela Diagnosis - Cutaneous abscess of back [any part, except buttock] - sebaceous cyst graciela Followup: graciela - With: Private Physician - When: 2 - 3 days - Reason: Recheck today's complaints, Continuance of care, Re-evaluation by your physician Followup: graciela - With: Mack Kovacs MD - When: 2 - 3 days - Reason: Recheck today's complaints, Continuance of care, Re-evaluation by your physician Discharge Instructions: - Discharge Summary Sheet graciela - Skin Abscess graciela - Incision and Drainage graciela - Skin Abscess, [id number] graciela - Incision and Drainage, Care After graciela Forms: - Medication Reconciliation Form graciela - Thank You Letter graciela - Antibiotic Education graciela - Prescription Opioid Use graciela Prescriptions: - Centany 2 % Topical ointment - apply 1 application by TOPICAL route 3 times per day; 22 gram; Refills: 0, graciela Product Selection Permitted - Bactrim DS 800-160 mg Oral Tablet - take 1 tablet by ORAL route every 12 hours for 10 days; 20 tablet; Refills: 0, [facility] Product Selection Permitted - Doxycycline Monohydrate 100 mg Oral Tablet - take 1 tablet by ORAL route every 12 hours for 10 days; 20 tablet; Refills: 0, [facility] Product Selection Permitted - Tylenol-Codeine #3 300 mg-30 mg Oral - take 2 tablet by ORAL route every 4-6 hours; 15 tablet; Refills: 0, Product [facility] Selection Permitted Signatures: Dispatcher [employer] Jerald Magaña MD MD cha Garcia, Victoria RN RN vg1 Gena Wiggins df1 Corrections: (The following items were deleted from the chart) 20:09 20:07 Social history: Smoking status: Patient denies any tobacco usage or history of. vg1 vg1
[2021-02-15] MEDS ORDERED: DOXYCYCLINE 100 MG CAP PO ONE (21:04)
[2021-02-15] MEDS ORDERED: MUPIROCIN 2% OINT 22GM TUBE TOP ONE (21:04)
[2021-02-15] MEDS ORDERED: SMZ./TMP. 800/160 MG TABLET ONE (21:04)
[2021-02-15 23:14] VITALS: TEMP 98.5
[2021-02-15 23:15] VITALS: BP 136/88; O2SAT 98
== END 2021-02-15 21:30 | disposition home or self-care (01) ==
LOC: ER 19:39
PROC: 0J970ZZ Drainage of Back Subcutaneous Tissue and Fascia, Open Approach (ICD-10-PCS; principal; 2021-02-15)
DX: L02.212 Cutaneous abscess of back [any part, except buttock and flank] (principal); L72.3 Sebaceous cyst; I10 Essential (primary) hypertension; I48.91 Unspecified atrial fibrillation; J44.9 Chronic obstructive pulmonary disease, unspecified; Z79.01 Long term (current) use of anticoagulants; Z88.3 Allergy status to other anti-infective agents; Z91.048 Other nonmedicinal substance allergy status
CPT/HCPCS: 87070; 87205; 99283

== ENCOUNTER 2021-04-29 16:14 | Emergency (ER) | payer OTHER ==
--- OUTSIDE RECORDS SUMMARY | 2021-04-29 16:19 | XMS REPORT | Continuity of Care Document ---
:1955 Author Organization [facility] t Address [address] [place] [address] Care Team Providers Name Role Phone SHIRAZ [...] Effective Date Expiration Date S matt AARP/MEDICARE [id number] 2019 COMPLETE 00:00:00 Problems Condition Condition Condition Status Onset Resolution Last Treating Co mments Source Name Details Category Date Date Treatment Clinician Date Acute on Acute on Disease Active Unive rs chronic chronic 6-15 [place] congest[place] congestive 00 Me dical heart heart Branch failure failure Pulmonary Pulmonary Disease Active Uni vers embolism embolism 9-11 ity of 00:00: [place] 00 Medical Branch Atrial Atrial Disease Active Univers fibrillati fibrillati 8-06 it y of on on 00:00: [place] 00 Medical Branch Obesity Obesity Disease Active Univers [...] it y of on on 00:00: [place] [facility] Complicati Complicati Disease Active U nivers on of on of 11-02 [place] of preventive preventive [place] Medica l procedure procedure Bran ch Rheumatoid Rheumatoid Disease Active Overview : Univers arthritis arthritis 5-21 ICD10 ity of 00:00: Diagnosis Term Medical Community Health Agent Branch Utility 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 -21 ity of 00:00: [place] [facility] Chest pain Chest pain Disease Active Overview : Univers 5-21 ICD10 ity of 00:00: Diagnosis [place] Term Medical Community Health Agent Branch Utility No known No known Disease [facility] active active [place] problems problems of Medicin e Allergies, Adverse Reactions, Alerts Allergy Allergy Status Severity Reaction(s) Onset Inactive Treating Comm ents Source Name Type Date Date Clinician CODEINE Allergy Active High 2019-[address] [facility] POVIDONE Allergy Active [facility] Hives 2019-[address] [facility] [address] -IODINE -16 [facility] Iodine Propensi Active 2018-04 [facility] Tincture ty to 009 [place] adverse 00:00: of reaction 00 Medicin s to e drug IODINE-I Allergy Active 2018-[address] [facility] SOPROPYL 0 [facility] - ALCOHOL 00:[facility]: Medical 00 Center AVOCADO Allergy Active [facility] 11[facility] Avocado Propensi Active Other - See Pt Un ean ty to comments 11-04 reports ity of adverse 00:00: upset [place] reaction 00 stomach Medical s after Branch consumpti on but no n/v. [place] [address] ext. [id number] AVOCADO DRUG Active Other-Cmnt Unive rs INGREDI 8-05 ity of 00:00: [place] 00 Medical Branch IODINE Allergy Active Hives [facility] 08[facility] Iodine Propensi Active Hives 2007- topical Univers ty to 08-06 ity of adverse 00:00: [place] reaction 00 Medical s Branch IODINE DRUG Active Hives Univers INGREDI 08-06 ity of 00:00: [place] 00 Medical Branch Social History Social Habit Start Date Stop Date Quantity Comments Source Sex Assigned At [facility] Co llege of Medicine History of tobacco Cigarette Smoker University of use [facility] Tobacco use and 2019-05-27 2019-05-27 Never used Universit y of exposure 00:00:00 00:00:00 [facility] Cigarettes smoked 2019-05-27 2019-05-27 Univers ity of current (pack per 00:00:00 00:00:00 ) - Reported Branch Cigarette 2019-05-27 2019-05-27 University of pack-years 00:00:00 00:00:00 [facility] Alcohol intake 2019-05-27 2019-05-27 Current drinker Unive rsity of 00:00:00 00:00:00 of alcohol [facility] (finding) [place] Alcohol Comment 2017-09-15 2017-09-15 ocassional on the Un iversity of 00:00:00 00:00:00 weekends [facility] Smoking Status Start Date Stop Date Source Former smoker 2019-05-27 00:00:00 2019-05-27 00:00:00 Universi ty of [facility] Current some 2019-01-08 00:00:00 [facility] Edgar ege of smoker Medicine Medications Ordered Filled Start Stop Current Ordering Indication Dosage Frequency Signature Comments Components Source Medication Medication Date Date Medication? Clinician (SIG) Name Name sotaloL 120 Yes [id number] 120mg Take 1 Univers mg tablet 3-22 tablet by ity o f 00:00: mouth 00 every 12 Medical (twelve) Branch hours. digoxin 125 Yes [id number] 125ug Take 1 Univers mcg (0.125 5-06 tablet by ity of mg) tablet 00:00: mouth 00 daily. Medical Branch digoxin 125 2020-0 Yes [id number] 125ug Take 1 Univers mcg (0.125 5-06 tablet by ity of mg) tablet 00:00: mouth [place] 00 daily. Medical Branch digoxin 125 2020-0 Yes [id number] 125ug Take 1 Univers mcg (0.125 5-06 tablet by ity of mg) tablet 00:00: mouth [place] 00 daily. Medical Branch digoxin 125 2020-0 Yes [id number] 125ug Take 1 Univers mcg (0.125 5-06 tablet by ity of mg) tablet 00:00: mouth [place] 00 daily. Medical Branch digoxin 125 2020-0 Yes [id number] 125ug Take 1 Univers mcg (0.125 5-06 tablet by ity of mg) tablet 00:00: mouth [place] 00 daily. Medical Branch predniSONE 2020-0 2020- No 5mg Take 5 mg U nivers 5 mg tablet 2-25 -25 by mouth ity of 15:49: 00:00 daily. [place] 49 :00 Medical Branch predniSONE 2020-0 2020- No 5mg Take 5 mg U nivers 5 mg tablet 05-27-25 by mouth ity of 15:49: 00:00 daily. [...] mouth ity of mg tablet 15:49: daily. [place] [address] Medical Branch tofacitinib 2019-0 Yes 11mg Take [...] mouth ity of mg tablet 15:49: daily. [place] [address] Medical Branch tofacitinib 2019-0 Yes 11mg Take 11 mg Univers (XELJANZ 2-25 by mouth. ity of XR) 11 mg 15:49: [address] buPROPion 2020-0 Yes 150mg Take 150 Uni vers SR 2-25 mg by ity of (WELLBUTRIN 15:49: mouth [place] SR) 150 mg 47 daily. Medical SR tablet Indication Bran ch s: 1tab Qam 2tabs Qpm SERTraline 2020-0 Yes 50mg Take 50 mg U nivers (ZOLOFT) 50 2-25 by mouth ity of mg tablet 15:49: daily. [address] Branch tofacitinib 2019-0 Yes 11mg Take 11 mg Univers (XELJANZ 2-25 by mouth. ity of XR) 11 mg 15:49: [address] buPROPion 0 Yes 150mg Take 150 Uni vers SR 2-25 mg by ity of (WELLBUTRIN 15:49: mouth [place] SR) 150 mg 47 daily. Medical SR tablet Indication Bran ch s: 1tab Qam 2tabs Qpm SERTraline 2019-0 Yes 50mg Take 50 mg U nivers (ZOLOFT) 50 2-25 by mouth ity of mg tablet 15:49: daily. [address] tofacitinib 2019-0 Yes 11mg Take 11 mg Univers (XELJANZ 2-25 by mouth. ity of XR) 11 mg 15:49: [address] buPROPion 2019-0 Yes 150mg Take 150 Uni vers SR 2-25 mg by ity of (WELLBUTRIN 15:49: mouth [place] SR) 150 mg 47 daily. Medical SR tablet Indication Bran ch s: 1tab Qam 2tabs Qpm SERTraline 2020-0 Yes 50mg Take 50 mg U nivers (ZOLOFT) 50 2-25 by mouth ity of mg tablet 15:49: daily. [address] tofacitinib 2020-0 Yes 11mg Take 11 mg Univers (XELJANZ 2-25 by mouth. ity of XR) 11 mg 15:49: [address] Branch buPROPion 2019-0 Yes 150mg Take 150 Uni vers SR 2-25 mg by ity of (WELLBUTRIN 15:49: mouth [place] SR) 150 mg 47 daily. Medical SR tablet Indication Bran ch s: 1tab Qam 2tabs Qpm SERTraline 2019-0 Yes 50mg Take 50 mg U nivers (ZOLOFT) 50 2-25 by mouth ity of mg tablet 15:49: daily. [address] tofacitinib 2020-0 Yes 11mg Take 11 mg Univers (XELJANZ 2-25 by mouth. ity of XR) 11 mg 15:49: [address] buPROPion 2020-0 Yes 150mg Take 150 Uni vers SR 2-25 mg by ity of (WELLBUTRIN 15:49: mouth [place] SR) 150 mg 47 daily. Medical SR tablet Indication Bran ch s: 1tab Qam 2tabs Qpm SERTraline 2020-0 Yes 50mg Take 50 mg U nivers (ZOLOFT) 50 2-25 by mouth ity of mg tablet 15:49: daily. [address] tofacitinib 2020-0 Yes 11mg Take 11 mg Univers (XELJANZ 2-25 by mouth. ity of XR) 11 mg 15:49: [address] buPROPion 2019-0 Yes 150mg Take 150 Uni vers SR 2-25 mg by ity of (WELLBUTRIN 15:49: mouth [place] SR) 150 mg 47 daily. Medical SR tablet Indication Bran ch s: 1tab Qam 2tabs Qpm SERTraline 2020-0 Yes 50mg Take 50 mg U nivers (ZOLOFT) 50 2-25 by mouth ity of mg tablet 15:49: daily. [address] tofacitinib 2020-0 Yes 11mg Take 11 mg Univers (XELJANZ 2-25 by mouth. ity of XR) 11 mg 15:49: [address] buPROPion 2020-0 Yes 150mg Take 150 Uni vers SR 2-25 mg by ity of (WELLBUTRIN 15:49: mouth [place] SR) 150 mg 47 daily. Medical SR tablet Indication Bran ch s: 1tab Qam 2tabs Qpm SERTraline 2020-0 Yes 50mg Take 50 mg U nivers (ZOLOFT) 50 2-25 by mouth ity of mg tablet 15:49: daily. [address] tofacitinib 2020-0 Yes 11mg Take 11 mg Univers (XELJANZ 2-25 by mouth. ity of XR) 11 mg 15:49: [place] [id number] Medical Branch abatacept 2019-0 2020- No 2506 125mg inject [...] Indication s: ARTHRITIS digoxin 125 2019-0 Yes [id number] 125ug Take 1 Univers mcg (0.125 2-25 tablet by ity of mg) tablet 00:00: mouth [place] 00 daily. Medical Branch furosemide 2019-0 Yes [id number] 40mg Take 1 Univers 40 mg 2-25 tablet by ity of tablet 00:00: mouth [place] 00 every Medical morning Branch and evening. sotalol 120 2019-0 Yes [id number] 120mg Take 1 Univers mg tablet 2-25 tablet by ity o f 00:00: mouth [place] 00 every 12 Medical (twelve) Branch hours. apixaban 5 2019-0 Yes 1358 5mg Take 1 Unive rs mg tablet 2-25 tablet by ity o f 00:00: mouth 2 [place] 00 (two) Medical times Branch daily. Indication s: atrial fibrillati on KCL 20 mEq 2019-0 Yes [id number] 20meq Take 1 Univers tablet 2-25 tablet by ity of 00:00: mouth [place] 00 daily. Medical Branch digoxin 125 2019-0 Yes [id number] 125ug Take 1 Univers mcg (0.125 2-25 tablet by ity of mg) tablet 00:00: mouth [place] 00 daily. Medical Branch furosemide 2019-0 Yes [id number] 40mg Take 1 Univers 40 mg 2-25 tablet by ity of tablet 00:00: mouth [place] 00 every Medical morning Branch and evening. sotalol 120 2020-0 Yes [id number] 120mg Take 1 Univers mg tablet 2-25 tablet by ity o f 00:00: mouth [place] 00 every 12 Medical (twelve) Branch hours. apixaban 5 2019-0 Yes 1358 5mg Take 1 Unive rs mg tablet 2-25 tablet by ity o f 00:00: mouth 2 [place] 00 (two) Medical times Branch daily. Indication s: atrial fibrillati on KCL 20 mEq 2020-0 Yes [id number] 20meq Take 1 Univers tablet 2-25 tablet by ity of 00:00: mouth [place] 00 daily. Medical Branch digoxin 125 2020-0 Yes [id number] 125ug Take 1 Univers mcg (0.125 2-25 tablet by ity of mg) tablet 00:00: mouth [place] 00 daily. Medical Branch furosemide 2020-0 Yes [id number] 40mg Take 1 Univers 40 mg 2-25 tablet by ity of tablet 00:00: mouth [place] 00 every Medical morning Branch and evening. sotalol 120 2020-0 Yes [id number] 120mg Take 1 Univers mg tablet 2-25 tablet by ity o f 00:00: mouth [place] 00 every 12 Medical (twelve) Branch hours. apixaban 5 2020-0 Yes 1358 5mg Take 1 Unive rs mg tablet 2-25 tablet by ity o f 00:00: mouth 2 [place] 00 (two) Medical times Branch daily. Indication s: atrial fibrillati on KCL 20 mEq 2020-0 Yes [id number] 20meq Take 1 Univers tablet 2-25 tablet by ity of 00:00: mouth [place] 00 daily. Medical Branch digoxin 125 2020-0 Yes [id number] 125ug Take 1 Univers mcg (0.125 2-25 tablet by ity of mg) tablet 00:00: mouth [place] 00 daily. Medical Branch furosemide 2020-0 Yes [id number] 40mg Take 1 Univers 40 mg 2-25 tablet by ity of tablet 00:00: mouth [place] 00 every Medical morning Branch and evening. sotalol 120 2020-0 Yes [id number] 120mg Take 1 Univers mg tablet 2-25 tablet by ity o f 00:00: mouth [place] 00 every 12 Medical (twelve) Branch hours. apixaban 5 2020-0 Yes 1358 5mg Take 1 Unive rs mg tablet 2-25 tablet by ity o f 00:00: mouth 2 [place] 00 (two) Medical times Branch daily. Indication s: atrial fibrillati on KCL 20 mEq 2020-0 Yes [id number] 20meq Take 1 Univers tablet 2-25 tablet by ity of 00:00: mouth [place] 00 daily. Medical Branch furosemide 2020-0 Yes [id number] 40mg Take 1 Univers 40 mg 2-25 tablet by ity of tablet 00:00: mouth [place] 00 every Medical morning Branch and evening. sotalol 120 2020-0 Yes [id number] 120mg Take 1 Univers mg tablet 2-25 tablet by ity o f 00:00: mouth [place] 00 every 12 Medical (twelve) Branch hours. apixaban 5 2020-0 Yes 1358 5mg Take 1 Unive rs mg tablet 2-25 tablet by ity o f 00:00: mouth 2 [place] 00 (two) Medical times Branch daily. Indication s: atrial fibrillati on KCL 20 mEq 2020-0 Yes [id number] 20meq Take 1 Univers tablet 2-25 tablet by ity of 00:00: mouth [place] 00 daily. Medical Branch furosemide 2020-0 Yes [id number] 40mg Take 1 Univers 40 mg 2-25 tablet by ity of tablet 00:00: mouth [place] 00 every Medical morning Branch and evening. sotalol 120 2020-0 Yes [id number] 120mg Take 1 Univers mg tablet 2-25 tablet by ity o f 00:00: mouth [place] 00 every 12 Medical (twelve) Branch hours. apixaban 5 2020-0 Yes 1358 5mg Take 1 Unive rs mg tablet 2-25 tablet by ity o f 00:00: mouth 2 [place] 00 (two) Medical times Branch daily. Indication s: atrial fibrillati on KCL 20 mEq 2020-0 Yes [id number] 20meq Take 1 Univers tablet 2-25 tablet by ity of 00:00: mouth [place] 00 daily. Medical Branch furosemide 2020-0 Yes [id number] 40mg Take 1 Univers 40 mg 2-25 tablet by ity of tablet 00:00: mouth [place] 00 every Medical morning Branch and evening. sotalol 120 2020-0 Yes [id number] 120mg Take 1 Univers mg tablet 2-25 tablet by ity o f 00:00: mouth [place] 00 every 12 Medical (twelve) Branch hours. apixaban 5 2020-0 Yes 1358 5mg Take 1 Unive rs mg tablet 2-25 tablet by ity o f 00:00: mouth 2 [place] 00 (two) Medical times Branch daily. Indication s: atrial fibrillati on KCL 20 mEq 2020-0 Yes [id number] 20meq Take 1 Univers tablet 2-25 tablet by ity of 00:00: mouth [place] 00 daily. Medical Branch furosemide 2020-0 Yes [id number] 40mg Take 1 Univers 40 mg 2-25 tablet by ity of tablet 00:00: mouth [place] 00 every Medical morning Branch and evening. sotalol 120 2020-0 Yes [id number] 120mg Take 1 Univers mg tablet 2-25 tablet by ity o f 00:00: mouth [place] 00 every 12 Medical (twelve) Branch hours. apixaban 5 2020-0 Yes 1358 5mg Take 1 Unive rs mg tablet 2-25 tablet by ity o f 00:00: mouth 2 [place] 00 (two) Medical times Branch daily. Indication s: atrial fibrillati on KCL 20 mEq 2020-0 Yes [id number] 20meq Take 1 Univers tablet 2-25 tablet by ity of 00:00: mouth [place] 00 daily. Medical Branch furosemide 2020-0 Yes [id number] 40mg Take 1 Univers 40 mg 2-25 tablet by ity of tablet 00:00: mouth [place] 00 every Medical morning Branch and evening. apixaban 5 2019-0 Yes 1358 5mg Take 1 Unive rs mg tablet 2-25 tablet by ity o f 00:00: mouth 2 [place] 00 (two) Medical times Branch daily. Indication s: atrial fibrillati on KCL 20 mEq 2020-0 Yes [id number] 20meq Take 1 Univers tablet 2-25 tablet by ity of 00:00: mouth [place] 00 daily. Medical Branch sotalol 120 0 2020- No [id number] 120mg Take 1 Univers mg tablet 2-25 03-22 tablet by ity of 00:00: 00:00 mouth [place] 00 :00 every 12 Medical (twelve) Branch hours. digoxin 125 2019-0 2020- No [id number] 125ug Take 1 Univers mcg (0.125 2-25 05-06 tablet by ity of mg) tablet 00:00: 00:00 mouth [place] 00 :00 daily. Medical Branch furosemide 2020-0 Yes [id number] 40mg Take 1 Univers 40 mg 2-15 tablet by ity of tablet 00:00: mouth [place] 00 every Medical morning Branch and evening. Take 40 mg in AM and 20 mg in PM digoxin 125 2020-0 Yes 125ug Take 1 Uni vers mcg (0.125 2-15 tablet by ity of mg) tablet 00:00: mouth [place] 00 daily. Medical Branch sotalol 120 2019-0 Yes [id number] 120mg Take 1 Univers mg tablet 2-15 tablet by ity o f 00:00: mouth [place] 00 every 12 Medical (twelve) Branch hours. apixaban 5 2019-0 Yes 1358 5mg Take 1 Unive rs mg tablet 2-15 tablet by ity o f 00:00: mouth 2 [place] 00 (two) Medical times Branch daily. Indication s: atrial fibrillati on furosemide 2019- 2020- No [id number] 40mg Take 1 Univers 40 mg 2-15 [...] daily. Medical Branch sotalol 120 2020- No [id number] 120mg Take 1 Univers mg tablet 2-15 02-25 tablet by ity of 00:00: 00:00 mouth [place] 00 :00 every 12 Medical (twelve) Branch hours. apixaban 5 2019- No 1358 5mg Take 1 Univ ers mg tablet 2-15 02-25 tablet by ity of 00:00: 00:00 mouth 2 [place] 00 :00 (two) Medical times Branch daily. Indication s: atrial fibrillati on furosemide 2019-0 2019- No [id number] 40mg Take 1 Univers 40 mg 2-15 [...] Medical Branch sotalol 120 2019- 2020- No [id number] 120mg Take 1 Univers mg tablet 2-15 02-25 tablet by ity of 00:00: 00:00 mouth [place] 00 :00 every 12 Medical (twelve) Branch hours. apixaban 5 2019-0 2020- No 1358 5mg Take 1 Univ ers mg tablet 2-15 02-25 tablet by ity of 00:00: 00:00 mouth 2 [place] 00 :00 (two) Medical times Branch daily. Indication s: atrial fibrillati on furosemide 2020-0 Yes [id number] 40mg Take 1 Univers 40 mg 2-13 tablet by ity of tablet 00:00: mouth [place] 00 every Medical morning Branch and evening. digoxin 125 2020-0 Yes 125ug Take 1 Uni vers mcg (0.125 2-13 tablet by ity of mg) tablet 00:00: mouth [place] 00 daily. Medical Branch apixaban 5 2019-0 Yes 1358 5mg Take 1 Unive rs mg tablet 2-13 tablet by ity o f 00:00: mouth 2 [place] 00 (two) Medical times Branch daily. Indication s: atrial fibrillati on furosemide 2020-0 2020- No [id number] 40mg Take 1 Univers 40 mg 2-13 02-25 tablet by ity of tablet 00:00: 00:00 mouth [place] 00 :00 every Medical morning Branch and evening. digoxin 125 2019-0 2020- No 125ug Take 1 Un ean mcg (0.125 2-15 05-25 tablet by ity of mg) tablet 00:00: 00:00 mouth [place] 00 :00 daily. Medical Branch apixaban 5 2019-0 2020- No 1358 5mg Take 1 Univ ers mg tablet -15 05-25 tablet by ity of 00:00: 00:00 mouth 2 [place] 00 :00 (two) Medical times Branch daily. Indication s: atrial fibrillati on furosemide 2019-0 2020- No [id number] 40mg Take 1 Univers 40 mg 2-13 02-25 tablet by ity of tablet 00:00: 00:00 [facility] [place] 00 :00 every Medical morning Branch and evening. digoxin 125 2019-0 2020- No 125ug Take 1 Un ean mcg (0.125 2-13 -25 tablet by ity of mg) tablet 00:00: 00:00 mouth [place] 00 :00 daily. Medical Branch apixaban 5 2020-0 2020- No 1358 5mg Take 1 Univ ers mg tablet 2-15 05-25 tablet by ity of 00:00: 00:00 mouth 2 [place] 00 :00 (two) Medical times Branch daily. Indication s: atrial fibrillati on apixaban 5 2019-0 Yes 1358 5mg Take [...] atrial fibrillati on sotalol 120 2018-04 Yes [id number] 120mg Take 1 Univers mg tablet 2-11 tablet by ity o f 00:00: mouth [place] 00 every 12 Medical (twelve) Branch hours. sotalol 120 2018-04 Yes [id number] 120mg Take 1 Univers mg tablet 2-11 tablet by ity o f 00:00: mouth [place] 00 every 12 Medical (twelve) Branch hours. sotalol 120 2018-04- No [id number] 120mg Take 1 Univers mg tablet 2-11 - tablet by ity of 00:00: 00:00 [...] Tofacitinib 2018-04 Yes 11mg Take 11 mg [facility] Citrate 11 0-09 by mouth. [place] ege [...] Medicin e tramadol 2018-04 Yes TAKE 1 [facility] (ULTRAM) 50 0-02 TABLET BY Col lege MG tablet 00:00: MOUTH of 00 EVERY 8 Medicin HOURS e NEEDED MAY MAKE DROWSY PENNSAID 2 Yes APPLY 2 [facility] % SOLN 12-23 PUMP BY College 00:00: TOPICAL of 00 [address] 2 Medicin TIMES e EVERY DAY TO THE AFFECTED JOINT digoxin Yes [facility] (LANOXIN) 12-13 College 125 MCG 00:00: of [...] 00:00: of 00 Medicin e furosemide Yes [id number] 40mg Take 1 Univers 40 mg 9-05 tablet by ity of tablet 00:00: mouth [place] 00 every Medical morning Branch and evening. Take 40 mg in AM and 20 mg in PM furosemide Yes [id number] 40mg Take 1 Univers 40 mg 9-05 tablet by ity of tablet 00:00: mouth [place] 00 every Medical morning Branch and evening. Take 40 mg in AM and 20 mg in PM furosemide Yes [id number] 40mg Take 1 Univers 40 mg 9-05 tablet by ity of tablet 00:00: mouth [place] 00 every Medical morning Branch and evening. Take 40 mg in AM and 20 mg in PM furosemide Yes [id number] 40mg Take 1 Univers 40 mg 9-05 tablet by ity of tablet 00:00: mouth [place] 00 every Medical morning Branch and evening. Take 40 mg in AM and 20 mg in PM furosemide Yes [id number] 40mg Take 1 Univers 40 mg 9-05 tablet by ity of tablet 00:00: mouth [place] 00 every Medical morning Branch and evening. Take 40 mg in AM and 20 mg in PM furosemide Yes [id number] 40mg Take 1 Univers 40 mg 9-05 tablet by ity of tablet 00:00: mouth [place] 00 every Medical morning Branch and evening. Take 40 mg in AM and 20 mg in PM furosemide 2020- No [id number] 40mg Take 1 Univers 40 mg 9-05 02-13 tablet by ity of tablet 00:00: 00:00 mouth [place] 00 :00 every Medical morning Branch and evening. Take 40 mg in AM and 20 mg in PM sotalol Yes TAKE 1 [facility] (BETAPACE) 9-03 TABLET BY Edgar ege 120 MG 00:00: MOUTH of tablet 00 EVERY 12 Medicin HOURS e furosemide Yes [id number] 40mg Take 1 Univers 40 mg 8-16 tablet by ity of tablet 00:00: mouth [place] 00 every Medical morning Branch and evening. Take 40 mg in AM and 20 mg in PM furosemide Yes [id number] 40mg Take 1 Univers 40 mg 8-16 tablet by ity of tablet 00:00: mouth [place] 00 every Medical morning Branch and evening. Take 40 mg in AM and 20 mg in PM furosemide 2019- No [id number] 40mg Take 1 Univers 40 mg 8-16 [...] :00 daily. Medical Branch furosemide 2019- No [id number] Take 40 mg Univers 40 mg 7- 08-16 in AM and ity of tablet [...] mouth ity of mg tablet 13:13: daily. [place] [facility] Branch abatacept 2018- Yes 2506 125mg inject 125 U nivers (ORENCIA) 4-15 mg under ity of 125 mg/mL 13:13: [place] injection 02 every Medical Sunday. Branch Indication s: ARTHRITIS meloxicam 2018- Yes 15mg Take 15 mg Un ean 15 mg 4-15 by mouth ity of tablet 13:13: daily. [place] [address] Medical Branch predniSONE 2018- Yes 5mg Take 5 mg Un ean 5 mg tablet 4-15 by mouth ity of 13:13: daily. [place] 02 Medical Branch tofacitinib Yes 11mg Take 11 mg Univers (XELJANZ 4-15 by mouth. ity of XR) 11 mg 13:13: [address] buPROPion Yes 150mg Take 150 Uni vers SR 4-15 mg by ity of (WELLBUTRIN 13:13: mouth [place] SR) 150 mg 02 daily. Medical SR tablet Indication Bran ch s: 1tab Qam 2tabs Qpm SERTraline Yes 50mg Take 50 mg U nivers (ZOLOFT) 50 4-15 by mouth ity of mg tablet 13:13: daily. [address] abatacept Yes 2506 125mg inject 125 U nivers (ORENCIA) 4-15 mg under ity of 125 mg/mL 13:13: the [place] injection 02 every Sunday. Branch Indication s: ARTHRITIS meloxicam Yes 15mg Take 15 mg Un ean 15 mg 4-15 by mouth ity of tablet 13:13: daily. [address] predniSONE 0 Yes 5mg Take 5 mg Un ean 5 mg tablet 4-15 by mouth ity of 13:13: daily. [address] tofacitinib Yes 11mg Take 11 mg Univers (XELJANZ 4-15 by mouth. ity of XR) 11 mg 13:13: [address] buPROPion Yes 150mg Take 150 Uni vers SR 4-15 mg by ity of (WELLBUTRIN 13:13: mouth [place] SR) 150 mg 02 daily. Medical SR tablet Indication Bran ch s: 1tab Qam 2tabs Qpm SERTraline Yes 50mg Take 50 mg U nivers (ZOLOFT) 50 4-15 by mouth ity of mg tablet 13:13: daily. [address] abatacept Yes 2506 125mg inject 125 U nivers (ORENCIA) 4-15 mg under ity of 125 mg/mL 13:13: [place] injection 02 every Sunday. Branch Indication s: ARTHRITIS meloxicam 2019 Yes 15mg Take 15 mg Un ean 15 mg 4-15 by mouth ity of tablet 13:13: daily. [address] predniSONE 2019-0 Yes 5mg Take 5 mg Un ean 5 mg tablet 4-15 by mouth ity of 13:13: daily. [address] tofacitinib [address] Yes 11mg Take 11 mg Univers (XELJANZ 4-15 by mouth. ity of XR) 11 mg 13:13: [address] buPROPion Yes 150mg Take 150 Uni vers SR 4-15 mg by ity of (WELLBUTRIN 13:13: mouth [place] SR) 150 mg 02 daily. Medical SR tablet Indication Bran ch s: 1tab Qam 2tabs Qpm SERTraline Yes 50mg Take 50 mg U nivers (ZOLOFT) 50 4-15 by mouth ity of mg tablet 13:13: daily. [address] abatacept Yes 2506 125mg inject 125 U nivers (ORENCIA) 4-15 mg under ity of 125 mg/mL 13:13: the [place] injection 02 every Sunday. Branch Indication s: ARTHRITIS meloxicam 2019 Yes 15mg Take 15 mg Un ean 15 mg 4-15 by mouth ity of tablet 13:13: daily. [address] predniSONE [address] Yes 5mg Take 5 mg Un ean 5 mg tablet 4-15 by mouth ity of 13:13: daily. [address] tofacitinib Yes 11mg Take 11 mg Univers (XELJANZ 4-15 by mouth. ity of XR) 11 mg 13:13: [address] buPROPion Yes 150mg Take 150 Uni vers SR 4-15 mg by ity of (WELLBUTRIN 13:13: mouth [place] SR) 150 mg 02 daily. Medical SR tablet Indication Bran ch s: 1tab Qam 2tabs Qpm SERTraline 2019 Yes 50mg Take 50 mg U nivers (ZOLOFT) 50 4-15 by mouth ity of mg tablet 13:13: daily. [address] abatacept [address] Yes 2506 125mg inject 125 U nivers (ORENCIA) 4-15 mg under ity of 125 mg/mL 13:13: [place] 02 every Sunday. Branch Indication s: ARTHRITIS meloxicam [id number] Yes 15mg Take 15 mg Un ean 15 mg 4-15 by mouth ity of tablet 13:13: daily. [address] predniSONE 2019-0 Yes 5mg Take 5 mg Un ean 5 mg tablet 4-15 by mouth ity of 13:13: daily. [address] tofacitinib 2019 Yes 11mg Take 11 mg Univers (XELJANZ 4-15 by mouth. ity of XR) 11 mg 13:13: [address] buPROPion Yes 150mg Take 150 Uni vers SR 4-15 mg by ity of (WELLBUTRIN 13:13: mouth [place] SR) 150 mg 02 daily. Medical SR tablet Indication Bran ch s: 1tab Qam 2tabs Qpm SERTraline Yes 50mg Take 50 mg U nivers (ZOLOFT) 50 4-15 by mouth ity of mg tablet 13:13: daily. [address] abatacept Yes 2506 125mg inject 125 U nivers (ORENCIA) 4-15 mg under ity of 125 mg/mL 13:13: [place] 02 every Sunday. Branch Indication s: ARTHRITIS meloxicam Yes 15mg Take 15 mg Un ean 15 mg 4-15 by mouth ity of tablet 13:13: daily. [address] predniSONE Yes 5mg Take 5 mg Un ean 5 mg tablet 4-15 by mouth ity of 13:13: daily. [address] tofacitinib Yes 11mg Take 11 mg Univers (XELJANZ 4-15 by mouth. ity of XR) 11 mg 13:13: [address] buPROPion Yes 150mg Take 150 Uni vers SR 4-15 mg by ity of (WELLBUTRIN 13:13: mouth [place] SR) 150 mg 02 daily. Medical SR tablet Indication Bran ch s: 1tab Qam 2tabs Qpm SERTraline Yes 50mg Take 50 mg U nivers (ZOLOFT) 50 4-15 by mouth ity of mg tablet 13:13: daily. [address] abatacept Yes 2506 125mg inject 125 U nivers (ORENCIA) 4-15 mg under ity of 125 mg/mL 13:13: [place] injection 02 every Sunday. Branch Indication s: ARTHRITIS meloxicam 2019 Yes 15mg Take 15 mg Un ean 15 mg 4-15 by mouth ity of tablet 13:13: daily. [address] predniSONE Yes 5mg Take 5 mg Un ean 5 mg tablet 4-15 by mouth ity of 13:13: daily. [address] tofacitinib Yes 11mg Take 11 mg Univers (XELJANZ 4-15 by mouth. ity of XR) 11 mg 13:13: [address] buPROPion Yes 150mg Take 150 Uni vers SR 4-15 mg by ity of (WELLBUTRIN 13:13: mouth [place] SR) 150 mg 02 daily. Medical SR tablet Indication Bran ch s: 1tab Qam 2tabs Qpm SERTraline Yes 50mg Take 50 mg U nivers (ZOLOFT) 50 4-15 by mouth ity of mg tablet 13:13: daily. [address] abatacept Yes 2506 125mg inject 125 U nivers (ORENCIA) 4-15 mg under ity of 125 mg/mL 13:13: [place] injection 02 every Sunday. Branch Indication s: ARTHRITIS meloxicam 2019 Yes 15mg Take 15 mg Un ean 15 mg 4-15 by mouth ity of tablet 13:13: daily. [address] predniSONE Yes 5mg Take 5 mg Un ean 5 mg tablet 4-15 by mouth ity of 13:13: daily. [address] tofacitinib Yes 11mg Take 11 mg Univers (XELJANZ 4-15 by mouth. ity of XR) 11 mg 13:13: [address] meloxicam Yes 15mg Take 15 mg Un ean 15 mg 4-15 by mouth ity of tablet 13:13: daily. [address] buPROPion Yes 150mg Take 150 Uni vers SR 4-15 mg by ity of (WELLBUTRIN 13:13: mouth [place] SR) 150 mg 02 daily. Medical SR tablet Indication Bran ch s: 1tab Qam 2tabs Qpm SERTraline Yes 50mg Take 50 mg U nivers (ZOLOFT) 50 4-15 by mouth ity of mg tablet 13:13: daily. [address] abatacept Yes 2506 125mg inject 125 U nivers (ORENCIA) 4-15 mg under ity of 125 mg/mL 13:13: [place] injection 02 [facility] Sunday. Branch Indication s: ARTHRITIS meloxicam Yes 15mg Take 15 mg Un ean 15 mg 4-15 by mouth ity of tablet 13:13: daily. [address] meloxicam Yes 15mg Take 15 mg Un ean 15 mg 4-15 by mouth ity of tablet 13:13: daily. [address] predniSONE Yes 5mg Take 5 mg Un ean 5 mg tablet 4-15 by mouth ity of 13:13: daily. [address] meloxicam Yes 15mg Take 15 mg Un ean 15 mg 4-15 by mouth ity of tablet 13:13: daily. [address] tofacitinib Yes 11mg Take 11 mg Univers (XELJANZ 4-15 by mouth. ity of XR) 11 mg 13:13: [place] Tb24 [address] [place] [address] meloxicam Yes 15mg Take 15 mg Un ean 15 mg 4-15 by mouth ity of tablet 13:13: daily. [address] meloxicam Yes 15mg Take 15 mg Un ean 15 mg 4-15 by mouth ity of tablet 13:13: daily. [address] meloxicam Yes 15mg Take 15 mg Un ean 15 mg 4-15 by mouth ity of tablet 13:13: daily. [address] meloxicam Yes 15mg Take 15 mg Un ean 15 mg 4-15 by mouth ity of tablet 13:13: daily. [address] meloxicam Yes 15mg Take 15 mg Un ean 15 mg 4-15 by mouth ity of tablet 13:13: daily. [address] meloxicam Yes 15mg Take 15 mg Un ean 15 mg 4-15 by mouth ity of tablet 13:13: daily. [address] buPROPion Yes 150mg Take 150 Uni vers SR 4-15 mg by ity of (WELLBUTRIN 13:13: mouth [place] SR) 150 mg 02 daily. Medical SR tablet Indication Bran ch s: 1tab Qam 2tabs Qpm SERTraline 2019 Yes 50mg Take 50 mg U nivers (ZOLOFT) 50 4-15 by mouth ity of mg tablet 13:13: daily. [address] abatacept 2019 Yes 2506 125mg inject 125 U nivers (ORENCIA) 4-15 mg under ity of 125 mg/mL 13:13: [place] injection 02 every Sunday. Branch Indication s: ARTHRITIS meloxicam 2019 Yes 15mg Take 15 mg Un ean 15 mg 4-15 by mouth ity of tablet 13:13: daily. [address] predniSONE Yes 5mg Take 5 mg Un ean 5 mg tablet 4-15 by mouth ity of 13:13: daily. [address] tofacitinib Yes 11mg Take 11 mg Univers (XELJANZ 4-15 by mouth. ity of XR) 11 mg 13:13: [address] buPROPion Yes 150mg Take 150 Uni vers SR 4-15 mg by ity of (WELLBUTRIN 13:13: mouth [place] SR) 150 mg 02 daily. Medical SR tablet Indication Bran ch s: 1tab Qam 2tabs Qpm SERTraline Yes 50mg Take 50 mg U nivers (ZOLOFT) 50 4-15 by mouth ity of mg tablet 13:13: daily. [address] abatacept 2019 Yes 2506 125mg inject 125 U nivers (ORENCIA) 4-15 mg under ity of 125 mg/mL 13:13: [place] injection 02 every Sunday. Branch Indication s: ARTHRITIS meloxicam 2019 Yes 15mg Take 15 mg Un ean 15 mg 4-15 by mouth ity of tablet 13:13: daily. [address] predniSONE 0 Yes 5mg Take 5 mg Un ean 5 mg tablet 4-15 by mouth ity of 13:13: daily. [address] tofacitinib Yes 11mg Take 11 mg Univers (XELJANZ 4-15 by mouth. ity of XR) 11 mg 13:13: [address] buPROPion 0 Yes 150mg Take 150 Uni vers SR 4-15 mg by ity of (WELLBUTRIN 13:13: mouth [place] SR) 150 mg 02 daily. Medical SR tablet Indication Bran ch s: 1tab Qam 2tabs Qpm SERTraline 0 Yes 50mg Take 50 mg U nivers (ZOLOFT) 50 4-15 by mouth ity of mg tablet 13:13: daily. [address] abatacept Yes 2506 125mg inject 125 U nivers (ORENCIA) 4-15 mg under ity of 125 mg/mL 13:13: [place] injection 02 every Sunday. Branch Indication s: ARTHRITIS meloxicam Yes 15mg Take 15 mg Un ean 15 mg 4-15 by mouth ity of tablet 13:13: daily. [address] predniSONE Yes 5mg Take 5 mg Un ean 5 mg tablet 4-15 by mouth ity of 13:13: daily. [address] tofacitinib Yes 11mg Take 11 mg Univers (XELJANZ 4-15 by mouth. ity of XR) 11 mg 13:13: [address] sucralfate 2018-0 Yes 1g Take 1 [...] Bayl or chloride SA 8-02 mEq by Kellyg e (K-DUR, 00:00: mouth. of KLOR-CON 00 [...] by ity of tablet 00:00: mouth at [place] [address] bedtime. Medical Branch traZODONE 2018-0 Yes 50mg Take 1 Univer s 50 mg 6-19 tablet by ity of tablet 00:00: mouth at [place] [address] bedtime. Medical Branch traZODONE 2018-0 Yes 50mg Take 1 Univer s 50 mg 6-19 tablet by ity of tablet 00:00: mouth at [place] [address] bedtime. Medical Branch traZODONE 2018-0 Yes 50mg Take 1 Univer s 50 mg 6-19 tablet by ity of tablet 00:00: mouth at [place] [address] bedtime. Medical Branch traZODONE 2018-0 Yes 50mg Take 1 Univer s 50 mg 6-19 tablet by ity of tablet 00:00: mouth at [place] [address] bedtime. Medical Branch traZODONE 2018-0 Yes 50mg Take 1 Univer s 50 mg 6-19 tablet by ity of tablet 00:00: mouth at [place] [address] bedtime. Medical Branch traZODONE 2018-0 Yes 50mg Take 1 Univer s 50 mg 6-19 tablet by ity of tablet 00:00: mouth at [place] [address] bedtime. Medical Branch traZODONE 2018-0 Yes 50mg Take 1 Univer s 50 mg 6-19 tablet by ity of tablet 00:00: mouth at [place] [address] bedtime. Medical Branch traZODONE 2018-0 Yes 50mg Take 1 Univer s 50 mg 6-19 tablet by ity of tablet 00:00: mouth at [place] [address] bedtime. Medical Branch traZODONE 2018-0 Yes 50mg Take 1 Univer s 50 mg 6-19 tablet by ity of tablet 00:00: mouth at [place] [address] bedtime. Medical Branch traZODONE 2018-0 Yes 50mg Take 1 Univer s 50 mg 6-19 tablet by ity of tablet 00:00: mouth at [place] [address] bedtime. Medical Branch traZODONE 2018-0 Yes 50mg Take 1 Univer s 50 mg 6-19 tablet by ity of tablet 00:00: mouth at [place] [address] bedtime. Medical Branch traZODONE 2018-0 2020- No 50mg Take 1 Unive rs 50 mg 6-19 02-25 tablet by ity of tablet 00:00: 00:00 mouth at [place] 00 :00 bedtime. Medical Branch traZODONE 2018-0 2020- No 50mg Take 1 Unive rs 50 mg 09-18 tablet by ity of tablet 00:00: 00:00 mouth at [place] 00 :00 bedtime. Medical Branch METHOTREXAT Yes [id number] Three tabs Univers E SODIUM 7-31 PO Once a ity of 2.5 MG ORAL 00:00: week [place] TAB 00 Medical Branch FOLIC ACID Yes [id number] One tab PO Univers 1 MG ORAL 7-31 Daily ity of TAB 00:00: [place] Medical Branch METHOTREXAT Yes [id number] Three tabs Univers E SODIUM 7-31 PO Once a ity of 2.5 MG ORAL 00:00: week [place] TAB Medical Branch FOLIC ACID Yes [id number] One tab PO Univers 1 MG ORAL 7-31 Daily ity of TAB 00:00: [place] 00 Medical Branch METHOTREXAT Yes [id number] Three tabs Univers E SODIUM 7-31 PO Once a ity of 2.5 MG ORAL 00:00: week [place] TAB 00 Medical Branch FOLIC ACID Yes [id number] One tab PO Univers 1 MG ORAL 7-31 Daily ity of TAB 00:00: [place] 00 Medical Branch METHOTREXAT Yes [id number] Three tabs Univers E SODIUM 7-31 PO Once a ity of 2.5 MG ORAL 00:00: week [place] TAB 00 Medical Branch FOLIC ACID Yes [id number] One tab PO Univers 1 MG ORAL 7-31 Daily ity of TAB 00:00: [place] 00 Medical Branch METHOTREXAT Yes [id number] Three tabs Univers E SODIUM 7-31 PO Once a ity of 2.5 MG ORAL 00:00: week [place] TAB 00 Medical Branch FOLIC ACID Yes [id number] One tab PO Univers 1 MG ORAL 7-31 Daily ity of TAB 00:00: [place] [facility] Branch METHOTREXAT Yes [id number] Three tabs Univers E SODIUM 7-31 PO Once a ity of 2.5 MG ORAL 00:00: week [place] TAB 00 Medical Branch FOLIC ACID Yes [id number] One tab PO Univers 1 MG ORAL 7-31 Daily ity of TAB 00:00: [place] 00 Medical Branch METHOTREXAT Yes [id number] Three tabs Univers E SODIUM 7-31 PO Once a ity of 2.5 MG ORAL 00:00: week [place] TAB 00 Medical Branch FOLIC ACID 2007-0 Yes [id number] One tab PO Univers 1 MG ORAL 7-31 Daily ity of TAB 00:00: [place] 00 Medical Branch METHOTREXAT 0 Yes [id number] Three tabs Univers E SODIUM 7-31 PO Once a ity of 2.5 MG ORAL 00:00: week [place] TAB 00 Medical Branch FOLIC ACID 2007-0 Yes [id number] One tab PO Univers 1 MG ORAL 7-31 Daily ity of TAB 00:00: [place] 00 Medical Branch METHOTREXAT 0 Yes [id number] Three tabs Univers E SODIUM 7-31 PO Once a ity of 2.5 MG ORAL 00:00: week [place] TAB 00 Medical Branch FOLIC ACID 2007-0 Yes [id number] One tab PO Univers 1 MG ORAL 7-31 Daily ity of TAB 00:00: [place] 00 Medical Branch METHOTREXAT 0 Yes [id number] Three tabs Univers E SODIUM 7-31 PO Once a ity of 2.5 MG ORAL 00:00: week [place] TAB 00 Medical Branch FOLIC ACID 0 Yes [id number] One tab PO Univers 1 MG ORAL 7-31 Daily ity of TAB 00:00: [place] 00 Medical Branch METHOTREXAT 2007-0 Yes [id number] Three tabs Univers E SODIUM 7-31 PO Once a ity of 2.5 MG ORAL 00:00: week [place] TAB 00 Medical Branch FOLIC ACID 2007-0 Yes [id number] One tab PO Univers 1 MG ORAL 7-31 Daily ity of TAB 00:00: [place] 00 Medical Branch METHOTREXAT 0 Yes [id number] Three tabs Univers E SODIUM 7-31 PO Once a ity of 2.5 MG ORAL 00:00: week [place] TAB 00 Medical Branch FOLIC ACID 2007-0 Yes [id number] One tab PO Univers 1 MG ORAL 7-31 Daily ity of TAB 00:00: [place] 00 Medical Branch METHOTREXAT 2007-0 2020- No [id number] Three tabs Univers E SODIUM 7-31 02-25 PO Once a ity o f 2.5 MG ORAL 00:00: 00:00 week [place] TAB 00 :00 Medical Branch FOLIC ACID 2007-0 2020- No [id number] One tab PO Univers 1 MG ORAL 7-31 02-25 Daily ity of TAB 00:00: 00:00 [place] 00 :00 Medical Branch METHOTREXAT 2020- No [id number] Three tabs Univers E SODIUM 10-30 PO Once a ity o f 2.5 MG ORAL 00:00: 00:00 week [place] TAB 00 :00 Medical Branch FOLIC ACID 2020- No [id number] One tab PO Univers 1 MG ORAL 10-30 Daily ity of TAB 00:00: 00:00 [place] 00 :00 Medical Branch nitroglycer Yes Place [place] in 08-07 under the [place] (NITROSTAT) 00:00: tongue. of 0.4 mg 00 [...] SUBL 00:00: [place] 00 Medical Branch NITROGLYCER 2007-0 Yes 1 Tab SL Un ean IN 0.4 MG 5-08 Q5MIN PRN ity o f SL SUBL 00:00: [place] [facility] NITROGLYCER 2007-0 Yes 1 Tab SL Un ean IN 0.4 MG 5-08 Q5MIN PRN ity o f SL SUBL 00:00: [place] [facility] NITROGLYCER 2007-0 Yes 1 Tab SL Un ean IN 0.4 MG 5-08 Q5MIN PRN ity o f SL SUBL 00:00: [place] [facility] NITROGLYCER 0 Yes 1 Tab SL Un ean IN 0.4 MG 5-08 Q5MIN PRN ity o f SL SUBL 00:00: [place] [facility] NITROGLYCER 2007-0 Yes 1 Tab SL Un ean IN 0.4 MG 5-08 Q5MIN PRN ity o f SL SUBL 00:00: [place] [facility] NITROGLYCER 2007-0 Yes 1 Tab SL Un ean IN 0.4 MG 5-08 Q5MIN PRN ity o f SL SUBL 00:00: [place] [facility] NITROGLYCER 0 Yes 1 Tab SL Un ean IN 0.4 MG 5-08 Q5MIN PRN ity o f SL SUBL 00:00: [place] [facility] NITROGLYCER 2007-0 Yes 1 Tab SL Un ean IN 0.4 MG 5-08 Q5MIN PRN ity o f SL SUBL 00:00: [place] [facility] NITROGLYCER 2007-0 Yes 1 Tab SL Un ean IN 0.4 MG 5-08 Q5MIN PRN ity o f SL SUBL 00:00: [place] [facility] NITROGLYCER 2007-0 Yes 1 Tab SL Un ean IN 0.4 MG 5-08 Q5MIN PRN ity o f SL SUBL 00:00: [place] [facility] NITROGLYCER 2007-0 Yes 1 Tab SL Un ean IN 0.4 MG 5-08 Q5MIN PRN ity o f SL SUBL 00:00: [place] [facility] NITROGLYCER 0 Yes 1 Tab SL Un ean IN 0.4 MG 5-08 Q5MIN PRN ity o f SL SUBL 00:00: [place] [facility] Vital Signs Vital Name Observation Time Observation Value Comments Source WEIGHT 2020-03-03 11:02:00 91.491 kg Systolic blood 2019-05-27 15:46:00 133 mm[Hg] Univer sity of pressure [place] [facility] Diastolic blood 2019-05-27 15:46:00 69 mm[Hg] Unive rsity of pressure [facility] Heart rate 2019-05-27 15:46:00 67 /min Universi ty of [place] [facility] Respiratory rate 2019-05-27 15:46:00 19 /min Univ ersity of [facility] Body height 2019-05-27 15:46:00 180.3 cm Universi ty of [place] [facility] Body weight 2019-05-27 15:46:00 91.853 kg Universi ty of [place] [facility] BMI 2019-05-27 15:46:00 28.24 kg/m2 Universi ty of [facility] Oxygen saturation in 2019-05-27 15:46:00 97 /min University of Arterial blood by [facility] nicolas Pulse oximetry Branch Systolic blood 2019-05-27 15:46:00 133 mm[Hg] Univer sity of pressure [facility] Diastolic blood 2019-05-27 15:46:00 69 mm[Hg] Unive rsity of pressure [facility] Heart rate 2019-05-27 15:46:00 67 /min Universi ty of [place] [facility] Respiratory rate 2019-05-27 15:46:00 19 /min [facility] Body height 2019-05-27 15:46:00 180.3 cm Universi ty of [place] [facility] Body weight 2019-05-27 15:46:00 91.853 kg Universi ty of [place] [facility] BMI 2019-05-27 15:46:00 28.24 kg/m2 Universi ty of [place] [facility] Oxygen saturation in 2019-05-27 15:46:00 97 /min University of Arterial blood by [place] [facility] nicolas Pulse oximetry Branch Procedures Procedure Date / Time Performing Clinician Source Performed MEDICATION CORRESPONDENCE 2020-05-20 06:01:00 Doctor Alvinoigned, [facility] [facility] AUTHORIZATION FOR RELEASE 2019-12-25 05:01:00 Doctor Alvinoigned, [facility] [place] [facility] AUTHORIZATION FOR RELEASE 2019-06-26 05:01:00 Doctor Alvinoigned, [facility] [place] [facility] SCANNED LAB RESULTS 2018-12-04 05:01:00 Doctor [facility] [facility] Plan of Care Planned Activity Planned Date Details Comments Source Future Scheduled DC CORNEAL SMEAR Ordered: [facility] of Test [code = 25571] 01/08/2019 Medicine Future Scheduled COLON CANCER [facility] of Test SCREENING: Medicine COLONOSCOPY [code = COLON CANCER SCREENING: COLONOSCOPY] Future Scheduled MAMMOGRAM ANNUAL [facility] of Test [code = MAMMOGRAM Medicine ANNUAL] Future Scheduled TETANUS SHOT (ADULT) [facility] of Test [code = TETANUS SHOT Medicin e (ADULT)] Future Scheduled HEPATITIS C [facility] of Test SCREENING [code = Medicine HEPATITIS C SCREENING] Future Scheduled HIV SCREENING [code [facility] of Test = HIV SCREENING] Medicine Future Scheduled CERVICAL CANCER [facility] ollege of Test SCREENING 3 YEAR Medicine FOLLOW UP [code = CERVICAL CANCER SCREENING 3 YEAR FOLLOW UP] Future Scheduled FLU VACCINE > 6 [facility] C ollege of Test MONTHS [code = FLU Medicine VACCINE > 6 MONTHS] Encounters Start End Encounter Admission Attending Care Care Encounter Source Date/Time Date/Time Type Type Clinicians Facility Department ID 2020-09-29 2020-09-29 Outpatient SHIRAZ, [facility] [id number] [place] 00:00:00 00:00:00 DEVORA Rodriguez5 Method i 2020-09-16 2020-09-22 Inpatient FORCE, [facility] [id number] [place] 00:00:00 00:00:00 KRISTA Foley thodi 2020-08-19 2020-08-19 Outpatient NITIN [facility] [id number] [place] 00:00:00 00:00:00 , GM 849 Metho di 2020-08-19 2020-08-19 Outpatient NITIN [facility] [id number] [place] 00:00:00 00:00:00 , GM 101 Metho di 2020-07-19 2020-07-27 Inpatient NITIN [facility] [id number] [place] 00:00:00 00:00:00 , GM [address] 2020-07-14 2020-07-14 Outpatient NITIN [facility] [id number] [place] 00:00:00 00:00:00 , GM [address] 2020-07-14 2020-07-14 Outpatient NITIN [facility] [id number] [place] 00:00:00 00:00:00 , GM 428 Metho di 2020-07-14 2020-07-14 Outpatient NITIN [facility] [id number] [place] 00:00:00 00:00:00 , GM 182 Metho di 2020-06-23 2020-06-23 Outpatient NITIN [facility] [id number] [place] 00:00:00 00:00:00 , GM 678 Metho di 2020-06-23 2020-06-23 Outpatient NITIN [facility] [id number] [place] 00:00:00 00:00:00 , GM 463 Metho di 2020-06-23 2020-06-23 Outpatient NITIN [facility] [id number] [place] 00:00:00 00:00:00 , GM 967 Metho di 2020-06-21 2020-06-21 Refill Cesar, [facility] 1.2.840.[id number] [place] [address] 00:00:00 00:00:00 Anna Marie Giordano [id number] ity of [id number] [phone] Al dical [facility] 059 [facility] 2020-06-21 2020-06-21 Refill Cesar [facility] 1.2.840.114 [id number] 00:00:00 00:00:00 Anna Marie Gillette [id number] [place] [id number] Professio [phone] 2020-06-09 2020-06-09 Patient Tremaine NCCHARLY 1.2.840.114 [id number] [facility] 00:00:00 00:00:00 Outreach Jeremy PRIMARY [id number] [facility] [id number] [phone] Al dical [address] [place] [address] 2020-06-09 2020-06-09 Patient Tremaine, [facility] 1.2.840.114 [id number] 00:00:00 00:00:00 Outreach Jeremy PRIMARY [id number] [facility] [id number] PAVILLION [phone] [id number] 2020-06-01 2020-06-01 Outpatient Checo GUERRERO, [facility] [id number] Univers 09:00:00 09:00:00 CELIARUBA [id number] ity o [facility] 2020-05-31 2020-05-31 Outpatient Checo GUERRERO, [facility] [id number] [facility] 09:00:00 09:00:00 ANNA MARIE [id number] ity o [facility] 2020-05-20 2020-05-20 Orders Doctor JEREMY 1.2.840.114 [id number] [facility] 00:00:00 00:00:00 Only Unassigned, LUCIAN [id number] ity [facility] [id number] Sharif as [phone] [address] 2020-05-20 2020-05-20 Orders Doctor JEREMY Terry.2.840.114 [id number] 00:00:00 00:00:00 Only Unassigned, LUCIAN [id number] [facility] [id number] [phone] [id number] 2020-04-28 2020-04-28 Outpatient EL LETSOU, [facility] [id number] [facility] 00:00:00 00:00:00 [place] 2020-03-22 2020-03-22 Outpatient LETSOU, [facility] SLEH [id number] [facility] 00:00:00 00:00:00 [place] 2020-03-22 2020-03-22 Outpatient EL LETSOU, [facility]H SLEH [id number] [facility] 00:00:00 00:00:00 [place] 2020-03-03 2020-03-03 Outpatient EL LETSOU, [facility]H SLEH [id number] SLE 00:00:00 00:00:00 [place] 2020-02-17 2020-02-17 Outpatient PJ, [facility] [id number] [place] [address] 00:00:00 00:00:00 NANI Goodwin Method i st 2019-12-25 2019-12-25 Orders Doctor JEREMY Nicole2.840.114 [id number] [facility] 00:00:00 00:00:00 Only Unassigned, LUCIAN [id number] ity of [facility] [id number] Sharif as [phone] [address] 2019-12-25 2019-12-25 Orders Doctor JEREMY 1.2.840.114 [id number] 00:00:00 00:00:00 Only Unassigned, LUCIAN [id number] [facility] [phone] [facility] 2019-08-04 2019-08-04 Refill Cesar, [facility] 1.2.840.114 [id number] Univers 00:00:00 00:00:00 Qiangjun [place] [id number] ity [id number] [phone] [address] 2019-08-04 2019-08-04 Refill [facility], [facility] 1.2.840.114 [id number] 00:00:00 00:00:00 Qiangjun [place] [id number] [place] [id number] Professio [phone] [address] 2019-07-29 2019-07-[address] [facility], [facility] 1.2.840.114 [id number] Univers 00:00:00 00:00:00 Qiangjun [place] [id number] ity [id number] [phone] [address] 2019-07-29 2019-07-29 Refill Cesar, [facility] 1.2.840.114 [id number] 00:00:00 00:00:00 Qiangjun [place] [id number] [place] [id number] Professio [phone] [address] 2019-06-26 2019-06-26 Orders Doctor JEREMY 1.2.840.114 [id number] Univers 00:00:00 00:00:00 Only Unassigned, LUCIAN [id number] ity of [facility] [id number] Sharif as [phone] [address] 2019-06-26 2019-06-26 Orders Doctor JEREMY 1.2.840.114 [id number] 00:00:00 00:00:00 Only Unassigned, LUCIAN [id number] [facility] [id number] [phone] [facility] 2019-05-29 2019-05-29 Outpatient R [facility] [id number] Univers 08:00:00 08:00:00 [id number] ity [facility] 2019-05-27 2019-05-27 Office [facility] 1.2.840.114 [id number] Univers 09:24:52 10:34:57 Visit Anna Marie Giordano [id number] ity [id number] [phone] [address] 2019-05-27 2019-05-27 Office [facility] 1.2.840.114 [id number] 09:24:52 10:34:57 Visit Anna Marie Giordano [id number] [place] [id number] Professio [phone] [address] 2019-05-27 2019-05-27 [facility] [id number] Univers 09:20:00 09:20:00 ANNA MARIE ulloa o f [facility] 2019-05-14 2019-05-14 Refill [facility] 1.2.840.114 [id number] Univers 00:00:00 00:00:00 Anna Marie Giordano [id number] ity of [id number] [phone] Al dic[address] 2019-05-07 2019-05-07 [facility] 1.2.840.114 [id number] Univers 00:00:00 00:00:00 Anna Marie Giordano [id number] ity of [id number] [phone] Al dic[address] 2019-04-16 2019-04-16 Patient Doctor [facility] 1.2.840.114 [id number] Univers 00:00:00 00:00:00 Secure Msg Unassigned, Pasquale [id number] [place]y [id number] [phone] [address] 2019-04-13 2019-04-[facility] [facility] Cesar, [facility] [id number] [facility] 00:00:00 00:00:00 Anna Marie [place] [id number] it[id number] [phone] [address] 2019-01-08 2019-01-08 Office JOSH Gtz [id number] 14:16:47 17:54:57 Visit Esther Y AMBULATOR [id number] Y [id number] [phone] [facility] 2019-01-08 2019-01-08 Office JOSH Gtz [id number] [facility] 14:16:47 17:54:57 Visit Esther Y AMBULATOR [id number] College Y [id number] of [phone] [facility] 300 e 2018-12-17 2018-12-17 Telephone Cesar, [facility] [id number] [employer] 00:00:00 00:00:00 Carolynenuviaruba [place] [id number] it[id number] [phone] [address] 2018-12-13 2018-12-13 Telephone Cesar, [facility] [id number] [employer] 00:00:00 00:00:00 Anna Marie Giordano [id number] [id number] [phone] [address] 2018-12-12 2018-12-12 [facility] [id number] [employer] 00:00:00 00:00:00 Anna Marie [place] [id number] it[place] of [id number] [phone] [place] [id number] [facility] 2018-12-05 2018-12-05 Telephone [facility], [facility] [id number] Univers 00:00:00 00:00:00 Anna Marie [place] [id number] [id number] [phone] [address] 2018-12-05 2018-12-05 Telephone [facility] [id number] Univers 00:00:00 00:00:00 Anna Marie Giordano [id number] [place] of [id number] [phone] [address] 2018-12-04 2018-12-04 Clay Artist 1, [facility] [id number] Univers 08:21:22 08:36:22 Visit Cesar Anna Marie Giordano [id number] it[place] of [id number] [phone] [facility] [address] [place] 2018-12-04 2018-12-04 Orders Doctor JEREMY [id number] Univers 00:00:00 00:00:00 Only Unassigned, LUCIAN [id number] ity of [place] [facility] 4.2.7.2.686 Sharif as [phone] [facility] [address] [place] 2018-11-15 2018-11-15 Telephone [facility] [id number] Univers 00:00:00 00:00:00 Anna Marie Giordano [id number] [id number] [phone] [address] Results Test Description Test Time Test Comments Results Result Comments Source SARS-CoV-2 (COVID-19) RNA [Presence] in Respiratory sp ecimen by 2020-07-14 19:06:02 ANIBAL with probe detection Test Item Value Reference Range Interpretation Comme nts SARS-CoV-2 (COVID-19) RNA [Presence] in Respiratory Not detected No t-Detected specimen by ANIBAL with probe detection (test code = 12165-2)
[2021-04-29 18:09] LABS: Absolute Lymphocytes (CBC) 0.7 K/uL (0.7-4.9); Hematocrit 36.9 % (36.0-45.0); Lymphocytes % 24.3 % (15.3-44.8); MPV 9.8 fL (7.6-11.3)
--- NOTE | 2021-04-29 18:09 | RAD REPORT ---
EXAM DESCRIPTION: Rula Single View04/29/2021 5:30 pm CLINICAL HISTORY: Shortness of breath COMPARISON: 2020 FINDINGS: The lungs appear clear of acute infiltrate. The heart is mildly enlarged. Postsurgical ch anges involve the chest IMPRESSION: No acute abnormalities displayed
[2021-04-29 18:10] LABS: Protime INR 1.19
[2021-04-29 18:25] LABS: Albumin 3.3 g/dL (3.4-5.0); Bilirubin Direct 0.1 mg/dL (0-0.2); Bilirubin Total 0.3 mg/dL (0.2-1.0); C-Reactive Protein 18.8 mg/L (<3.00); Ferritin 244.8 ng/mL (8-388); Potassium 3.9 mmol/L (3.5-5.1); Protein, Total 7.5 g/dL (6.4-8.2); Troponin High Sensitivity 11.6 pg/mL (<58.9)
--- NOTE | 2021-04-29 20:17 | EDPHYS ---
Physician Documentation [facility] Name: Celsa Lorenzo Age: 66 yrs Sex: Female : 1955 Arrival Date: 04/29/2021 Time: 16:20 Bed 15 Private MD: Lasha Fall ED Physician Ildefonso Lynn HPI: 04/29 17:02 This 66 yrs old Female presents to ER via Wheelchair with complaints of Covid+. kb 17:02 The patient or guardian reports cough, that is intermittent, described as mild, kb difficulty breathing. Onset: The symptoms/episode began/occurred 11 day(s) ago. Severity of symptoms: At their worst the symptoms were moderate, in the emergency department the symptoms are unchanged. Modifying factors: The symptoms are alleviated by nothing, the symptoms are aggravated by nothing. Associated signs and symptoms: The patient has no apparent associated signs or symptoms. The patient has not experienced similar symptoms in the past. The patient has not recently seen a physician. Pt reports cough, fatigue and shortness of breath that started 11 days ago. States she tested positive for covid a few days ago. Went to PCP today and was sent to ED for eval. . Historical: - Allergies: 16:38 Betadine; ap3 16:38 Iodine; Topical only; ap3 - Home Meds: 16:38 Eliquis 5 mg Oral tab 1 tab 2 times per day [Active]; Lasix 40 mg Oral tab 20mg at ap3 night [Active]; metoprolol PO BID [Active]; Wellbutrin 150mg Oral 1 tab daily [Active]; Xeljanz Oral [Active]; Zoloft 50 mg Oral tab 1 tab once daily [Active]; - PMHx: 16:38 ADD/ADHD; Atrial Fib; cardioversion; CHF; COPD; Hypertension; mitral valve stenosis; ap3 pulmonary HTN; resp failure; Rheumatoid Arthritis; - PSHx: 16:38 Appendectomy; section; Cholecystectomy; mitral and tricupid valve ap3 replacement.; Tonsillectomy; tubal ligation; - Immunization history:: Client reports having NOT received the Covid vaccine. - Social history:: Smoking status: Patient denies any tobacco usage or history of. ROS: 16:57 Abdomen/GI: Negative for abdominal pain, nausea, vomiting, diarrhea, and constipation. kb 16:57 Constitutional: Positive for fatigue. 16:57 Respiratory: Positive for cough, shortness of breath, Negative for dyspnea on exertion, hemoptysis, orthopnea, pleurisy, sputum production, wheezing. 16:57 All other systems are negative. Exam: 16:57 Constitutional: This is a well developed, well nourished patient who is awake, alert, kb and in no acute distress. Head/Face: Normocephalic, atraumatic. ENT: Moist Mucous membranes Cardiovascular: Regular rate and rhythm with a normal S1 and S2. No gallops, murmurs, or rubs. No pulse deficits. Respiratory: Respirations even and unlabored. No increased work of breathing. Talking in full sentences Skin: Warm, dry with normal turgor. Normal color. MS/ Extremity: Pulses equal, no cyanosis. Neurovascular intact. Full, normal range of motion. Neuro: Awake and alert, GCS 15, oriented to person, place, time, and situation. Moves all extremities. Normal gait. Psych: Awake, alert, with orientation to person, place and time. Behavior, mood, and affect are within normal limits. 20:23 ECG was reviewed by the Attending Physician. cp Vital Signs: 16:36 BP 110 / 67; Pulse 117; Resp 17; Temp 98.4; Pulse Ox 97% on R/A; Weight 86.18 kg; ap3 Height 5 ft. 9 in. (175.26 cm); 19:48 BP 126 / 98; Pulse 98; Resp 18; Temp 98.5; Pulse Ox 99% on R/A; Pain 0/10; joelle 20:46 BP 128 / 93; Pulse 105; Resp 20; Temp 98.5; Pulse Ox 98% on R/A; Pain 0/10; joelle 16:36 Body Mass Index 28.06 (86.18 kg, 175.26 cm) ap3 MDM: 16:42 Patient medically screened. kb 16:57 Data reviewed: vital signs, nurses notes. Data interpreted: Pulse oximetry: on room air kb is 97 %. Interpretation: normal. 04/29 16:43 Order name: BMP kb 04/29 16:43 Order name: Blood Culture Adult (2) kb 04/29 16:43 Order name: C-Reactive Protein; Complete Time: 18:57 kb 04/29 18:57 Interpretation: Abnormal: C-REACTIVE PROT 18.80. cp 04/29 16:43 Order name: CBC with Diff; Complete Time: 18:57 kb 04/29 20:14 Interpretation: Normal except: WBC 3.00; PLT 138; BASO% 2.1. cp 04/29 16:43 Order name: D-Dimer; Complete Time: 18:57 kb 04/29 16:43 Order name: Ferritin; Complete Time: 18:57 kb 04/29 16:43 Order name: LFT's; Complete Time: 18:57 kb 04/29 18:57 Interpretation: Normal except: ALB 3.3; GLOB 4.2; A/G 0.8. cp 04/29 16:43 Order name: Lactate; Complete Time: 18:57 kb 04/29 16:43 Order name: Lipase; Complete Time: 18:57 kb 04/29 16:43 Order name: PT-INR; Complete Time: 18:57 kb 04/29 16:43 Order name: Procalcitonin; Complete Time: 18:57 kb 04/29 16:43 Order name: Ptt, Activated; Complete Time: 18:57 kb 04/29 16:43 Order name: Troponin HS; Complete Time: 18:57 kb 04/29 16:43 Order name: COVID-19 SARS RT PCR (Document "Date of Onset" if Symptomatic); Complete kb Time: 18:57 04/29 16:43 Order name: CXR XRAY; Complete Time: 18:57 kb 04/29 16:43 Order name: EKG; Complete Time: 16:44 kb 04/29 16:43 Order name: Cardiac monitoring; Complete Time: 20:49 kb 04/29 16:43 Order name: Droplet/Contact Precautions; Complete Time: 20:49 kb 04/29 16:43 Order name: EKG - Nurse/Tech; Complete Time: 20:49 kb 04/29 16:43 Order name: Labs collected and sent; Complete Time: 20:49 kb 04/29 16:43 Order name: O2 Per Protocol; Complete Time: 20:49 kb 04/29 16:43 Order name: O2 Sat Monitoring; Complete Time: 20:49 kb 04/29 16:44 Order name: Basic Metabolic Panel; Complete Time: 18:57 EDMS 04/29 18:57 Interpretation: Normal except: NA 133; GLUC 118; BUN 20; GFR 83; CA 8.3. cp 04/29 16:44 Order name: Blood Culture EDNV 04/29 19:31 Order name: Desirae. Order: ambulate patient with pulse ox monitor; Complete Time: 20:48 cp EC:23 Rate is 114 beats/min. Rhythm is regular. CO interval is normal. QRS interval is cp prolonged at 148 msec. QT interval is normal. Interpreted by me. Reviewed by me. Administered Medications: 20:18 Not Given (Other Intervention Used): SOLU-Medrol (methylPrednisoLONE) 125 mg IVP once joelle 20:30 Drug: SOLU-Medrol (methylPREDNISolone sodium succinate) 125 mg Route: IM; Site: right joelle gluteus; 20:48 Follow up: Response: No adverse reaction joelle Disposition: 04/30 07:01 Co-signature as Attending Physician, Ildefonso Lynn MD I agree with the assessment and kdr plan of care. Disposition Summary: 04/29/21 20:16 Discharge Ordered Location: Home cp Problem: new cp Symptoms: have improved cp Condition: Stable cp Diagnosis - SARS-associated coronavirus as the cause of diseases classified elsewhere cp Followup: cp - With: Private Physician - When: 2 - 3 days - Reason: Recheck today's complaints Discharge Instructions: - Discharge Summary Sheet cp - Aspirin and Your Heart cp - COVID-19 cp - Things to Know about the COVID-19 Pandemic - [facility] cp - 10 Things You Can Do to Manage Your COVID-19 Symptoms at Home - [facility] cp - COVID-19: Quarantine vs. Isolation - [facility] cp - Prevent the Spread of COVID-19 if You Are Sick - [facility] cp Forms: - Medication Reconciliation Form cp - Thank You Letter cp - Antibiotic Education cp - Prescription Opioid Use cp Prescriptions: - albuterol sulfate 90 mcg/actuation Inhalation HFA aerosol inhaler - inhale 1 puff by INHALATION route every 4-6 hours; 1 Inhaler; Refills: 0, cp Product Selection Permitted Signatures: Dispatcher [employer] EDNV Denise Banerjee, MULTIFOLD OPERATOR-C Ildefonso Suh MD MD kdr Page, Corey, PA PA cp Jovita Burrell RN RN ap3 Jenny Alberts RN RN joelle Corrections: (The following items were deleted from the chart) 01/28 20:49 16:43 IV Saline Lock ordered. kb joelle
--- NOTE | 2021-04-29 20:17 | ER ---
Nurse's Notes [facility] Name: Celsa Lorenzo Age: 66 yrs Sex: Female : 1955 Arrival Date: 04/29/2021 Time: 16:20 Bed 15 Private MD: Lasha Fall Diagnosis: SARS-associated coronavirus as the cause of diseases classified elsewhere Presentation: 04/29 16:36 Chief complaint: Patient states: she tested positive for COVID a couple of days ago, ap3 and she states that now she is very exhausted. Coronavirus screen: Client reports previous positive COVID test result. Ebola Screen: No symptoms or risks identified at this time. Initial Sepsis Screen: Does the patient meet any 2 criteria? No. Patient's initial sepsis screen is negative. Does the patient have a suspected source of infection? No. Patient's initial sepsis screen is negative. Risk Assessment: Do you want to hurt yourself or someone else? Patient reports no desire to harm self or others. Onset of symptoms was April 24, 2021. 16:36 Method Of Arrival: Wheelchair ap3 16:36 Acuity: MAXIMO 4 ap3 Triage Assessment: 16:39 General: Appears in no apparent distress. uncomfortable, Behavior is calm, cooperative. ap3 Pain: Denies pain. Neuro: Level of Consciousness is awake, alert, obeys commands, Oriented to person, place, time, situation. Respiratory: Reports shortness of breath cough that is Airway is patent Respiratory effort is even, unlabored. Historical: - Allergies: 16:38 Betadine; ap3 16:38 Iodine; Topical only; ap3 - Home Meds: 16:38 Eliquis 5 mg Oral tab 1 tab 2 times per day [Active]; Lasix 40 mg Oral tab 20mg at ap3 night [Active]; metoprolol PO BID [Active]; Wellbutrin 150mg Oral 1 tab daily [Active]; Xeljanz Oral [Active]; Zoloft 50 mg Oral tab 1 tab once daily [Active]; - PMHx: 16:38 ADD/ADHD; Atrial Fib; cardioversion; CHF; COPD; Hypertension; mitral valve stenosis; ap3 pulmonary HTN; resp failure; Rheumatoid Arthritis; - PSHx: 16:38 Appendectomy; section; Cholecystectomy; mitral and tricupid valve ap3 replacement.; Tonsillectomy; tubal ligation; - Immunization history:: Client reports having NOT received the Covid vaccine. - Social history:: Smoking status: Patient denies any tobacco usage or history of. Screenin:39 Abuse screen: Denies threats or abuse. Nutritional screening: No deficits noted. ap3 Tuberculosis screening: No symptoms or risk factors identified. 19:48 Fall Risk None identified. joelle Assessment: 19:46 General: Appears in no apparent distress. comfortable, Behavior is calm, cooperative. joelle General: The pt's is my pt also. She is in the next room. She is in NAD and the provider ambulated the pt in the room and her O2 Sat remained 98%, or better. . Pain: Denies pain. Respiratory: Reports shortness of breath at rest on exertion "exhaustion". Vital Signs: 16:36 BP 110 / 67; Pulse 117; Resp 17; Temp 98.4; Pulse Ox 97% on R/A; Weight 86.18 kg; ap3 Height 5 ft. 9 in. (175.26 cm); 19:48 BP 126 / 98; Pulse 98; Resp 18; Temp 98.5; Pulse Ox 99% on R/A; Pain 0/10; joelle 20:46 BP 128 / 93; Pulse 105; Resp 20; Temp 98.5; Pulse Ox 98% on R/A; Pain 0/10; joelle 16:36 Body Mass Index 28.06 (86.18 kg, 175.26 cm) ap3 ED Course: 16:20 Patient arrived in ED. mr 16:21 Lasha Fall MD is Private Physician. mr 16:38 Triage completed. ap3 16:40 Arm band placed on left wrist. ap3 17:30 CXR XRAY In Process Unspecified. EDMS 18:55 Jerald Monroe PA is PHCP. cp 18:55 Ildefonso Lynn MD is Attending Physician. cp 19:45 Jenny Alberts, EDWINA is Primary Nurse. joelle 19:48 Patient has correct armband on for positive identification. Placed in gown. Bed in low joelle position. Call light in reach. Side rails up X 1. Pulse ox on. 19:48 No provider procedures requiring assistance completed. joelle 20:48 Blood Culture Sent. joelle 20:49 BMP Sent. joelle 20:49 Blood Culture Adult (2) Sent. joelle 20:50 Patient did not have IV access during this emergency room visit. joelle Administered Medications: 20:18 Not Given (Other Intervention Used): SOLU-Medrol (methylPrednisoLONE) 125 mg IVP once joelle 20:30 Drug: SOLU-Medrol (methylPREDNISolone sodium succinate) 125 mg Route: IM; Site: right joelle gluteus; 20:48 Follow up: Response: No adverse reaction joelle Outcome: 20:16 Discharge ordered by . timothy 20:50 Condition: stable joelle 20:50 Discharged to her is in room 14, so she'll stay with him until she goes home joelle 20:50 Discharge instructions given to patient, Instructed on discharge instructions, follow up and referral plans. Demonstrated understanding of instructions, follow-up care. 20:58 Patient left the ED. joelle Signatures: Dispatcher [employer] EDMS Denise Banerjee, HOME ECONOMICS TEACHER-C HOME ECONOMICS TEACHER-Kavita Osorio mr Jerald Monroe, BALTA PA Jovita Nettles RN RN ap3 Jenny Alberts RN RN joelle
[2021-04-29] MEDS ORDERED: METHYLPREDNISOLONE 125 MG INJ ONE (20:22)
[2021-04-29 21:05] VITALS: TEMP 98.5
[2021-04-29 21:07] VITALS: BP 128/93; O2SAT 98
== END 2021-04-29 20:58 | disposition home or self-care (01) ==
LOC: ER 16:14
DX: U07.1 COVID-19 (principal); I10 Essential (primary) hypertension; I50.9 Heart failure, unspecified; I48.91 Unspecified atrial fibrillation; Z79.01 Long term (current) use of anticoagulants; Z88.8 Allergy status to other drugs, medicaments and biological substances; Z91.048 Other nonmedicinal substance allergy status
CPT/HCPCS: 93005; 87040 ×2; 85025; 80048; 36415; 85610; 85379; 80076; 83605; 85730; 84484; 82728; 83690; 84145; 86140; 71045; 96372; 99284; U0003; J2930

== ENCOUNTER 2021-05-01 16:26 | Emergency (ER) | payer OTHER ==
--- OUTSIDE RECORDS SUMMARY | 2021-05-01 16:31 | XMS REPORT | Continuity of Care Document ---
:1955 Author Organization [facility] t Address [address] [place] [address] Care Team Providers Name Role Phone SHIRAZ [...] Effective Date Expiration Date S matt AARP/MEDICARE [id number] 2019 COMPLETE 00:00:00 Problems Condition Condition Condition Status Onset Resolution Last Treating Co mments Source Name Details Category Date Date Treatment Clinician Date Acute on Acute on Disease Active Unive rs chronic chronic 6-15 [place] congest[place] congestive 00 Me dical heart heart Branch failure failure Pulmonary Pulmonary Disease Active Uni vers embolism embolism 9-11 ity of 00:00: [place] [address] Medical Branch Atrial Atrial Disease Active Univers fibrillati fibrillati 8-06 it y of on on 00:00: [place] [address] Medical Branch Obesity Obesity Disease Active Univers (BMI (BMI 8-06 ity of 30-39.9) 30-39.9) 00:00: [place] 00 [...] ICD10 ity of 00:00: Diagnosis Term [facility] [employer] Branch Utility 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 - ity of 00:00: [place] [facility] Chest pain Chest pain Disease Active Overview : Univers 5-21 ICD10 ity of 00:00: Diagnosis [place] Term Medical [facility] [employer] Branch Utility No known No known Disease [facility] active active [address] [place] problems problems of Medicin e Allergies, Adverse Reactions, Alerts Allergy Allergy Status Severity Reaction(s) Onset Inactive Treating Comm ents Source Name Type Date Date Clinician CODEINE Allergy Active High 2019-[address] [facility] POVIDONE Allergy Active High Hives 2019-[address] [facility] -IODINE -16 [facility] Iodine Propensi Active 2018-04 [facility] Tincture ty to [address] adverse 00:00: of reaction 00 Medicin s to e drug IODINE-I Allergy Active 2018-[address] [facility] SOPROPYL 009 [facility] - ALCOHOL [facility]: [facility] 00 Center Avocado Propensi Active Other - See Pt Un ean ty to comments 11-04 reports ity of adverse 00:00: upset [place] reaction 00 stomach Medical s after Branch consumpti on but no n/v. Dexter S[place] ext. [id number] AVOCADO DRUG Active Other-Cmnt Unive rs INGREDI 11-04 ity of 00:00: [place] 00 Medical Branch AVOCADO Allergy Active [facility] Iodine Propensi Active Hives 2007- topical Univers ty to 5-07 ity of adverse 00:00: [place] reaction 00 [facility] Branch IODINE DRUG Active Hives 2007- Univers INGREDI 5-07 ity of 00:00: [place] 00 [facility] IODINE Allergy Active Hives 2007- [facility] Social History Social Habit Start Date Stop Date Quantity Comments Source Sex Assigned At [facility] Co llege of Medicine History of tobacco Cigarette Smoker University of use [facility] Tobacco use and 2019-05-27 2019-05-27 Never used Universit y of exposure 00:00:00 00:00:00 [facility] Cigarettes smoked 2019-05-27 2019-05-27 Univers ity of current (pack per 00:00:00 00:00:00 [facility] ) - Reported Branch Cigarette 2019-05-27 2019-05-27 University of pack-years 00:00:00 00:00:00 [facility] Alcohol intake 2019-05-27 2019-05-27 Current drinker Unive rsity of 00:00:00 00:00:00 of alcohol [facility] [place] Alcohol Comment 2017-09-15 2017-09-15 ocassional on the Un iversity of 00:00:00 00:00:00 weekends [facility] Smoking Status Start Date Stop Date Source Former smoker 2019-05-27 00:00:00 2019-05-27 00:00:00 Universi ty of [facility] Current some 2019-01-08 00:00:00 [facility] [place] [facility] of smoker Medicine Medications Ordered Filled Start Stop Current Ordering Indication Dosage Frequency Signature Comments Components Source Medication Medication Date Date Medication? Clinician (SIG) Name Name sotaloL 120 Yes [id number] 120mg Take 1 Univers mg tablet 3-22 tablet by ity o f 00:00: mouth 00 every 12 Medical (twelve) Branch hours. digoxin 125 Yes [id number] 125ug Take 1 Univers mcg (0.125 5-06 tablet by ity of mg) tablet 00:00: mouth 00 daily. Medical Branch digoxin 125 Yes [id number] 125ug Take 1 Univers mcg (0.125 5-06 tablet by ity of mg) tablet 00:00: mouth [place] 00 daily. Medical Branch digoxin 125 2020-0 Yes [id number] 125ug Take 1 Univers mcg (0.125 5-06 tablet by ity of mg) tablet 00:00: mouth [place] 00 daily. Medical Branch digoxin 125 2020-0 Yes [id number] 125ug Take 1 Univers mcg (0.125 5-06 tablet by ity of mg) tablet 00:00: mouth [place] 00 daily. [facility] digoxin 125 2020-0 Yes [id number] 125ug Take 1 Univers mcg (0.125 5-06 tablet by ity of mg) tablet 00:00: mouth [place] 00 daily. Medical Branch predniSONE 2020-0 2020- No 5mg Take 5 mg U nivers 5 mg tablet 2-25 02-25 by mouth ity of 15:49: 00:00 daily. [place] 49 :00 [facility] predniSONE 2019-0 2020- No 5mg Take 5 mg U nivers 5 mg tablet 2-25 -25 by mouth ity of 15:49: 00:00 daily. [place] 49 :00 [facility] buPROPion 0 Yes 150mg Take 150 Uni vers SR 2-25 mg by ity of (WELLBUTRIN 15:49: mouth [place] SR) 150 mg 47 daily. Medical SR tablet Indication Bran ch s: 1tab Qam 2tabs Qpm SERTraline 0 Yes 50mg Take 50 mg U nivers (ZOLOFT) 50 2-25 by mouth ity of mg tablet 15:49: daily. [place] [address] Medical [place] tofacitinib 0 Yes 11mg Take 11 mg Univers (XELJANZ 2-25 by mouth. ity of XR) 11 mg 15:49: [place] Tb24 47 Medical Branch buPROPion 0 Yes 150mg Take 150 Uni vers SR 2-25 mg by ity of (WELLBUTRIN 15:49: mouth [place] SR) 150 mg 47 daily. Medical SR tablet Indication Bran ch s: 1tab Qam 2tabs Qpm SERTraline 0 Yes 50mg Take 50 mg U nivers (ZOLOFT) 50 2-25 by mouth ity of mg tablet 15:49: daily. [place] [address] Medical [place] tofacitinib 0 Yes 11mg Take 11 mg Univers (XELJANZ 2-25 by mouth. ity of XR) 11 mg 15:49: [address] buPROPion 2020-0 Yes 150mg Take 150 Uni vers SR 2-25 mg by ity of (WELLBUTRIN 15:49: mouth [place] SR) 150 mg 47 daily. Medical SR tablet Indication Bran ch s: 1tab Qam 2tabs Qpm SERTraline 2020-0 Yes 50mg Take 50 mg U nivers (ZOLOFT) 50 2-25 by mouth ity of mg tablet 15:49: daily. [address] tofacitinib 2020-0 Yes 11mg Take 11 mg Univers (XELJANZ 2-25 by mouth. ity of XR) 11 mg 15:49: [address] buPROPion 2019-0 Yes 150mg Take 150 Uni vers SR 2-25 mg by ity of (WELLBUTRIN 15:49: mouth [place] SR) 150 mg 47 daily. Medical SR tablet Indication Bran ch s: 1tab Qam 2tabs Qpm SERTraline 2020-0 Yes 50mg Take 50 mg U nivers (ZOLOFT) 50 2-25 by mouth ity of mg tablet 15:49: daily. [address] tofacitinib 2020-0 Yes 11mg Take 11 mg Univers (XELJANZ 2-25 by mouth. ity of XR) 11 mg 15:49: [address] buPROPion 2019-0 Yes 150mg Take 150 Uni vers SR 2-25 mg by ity of (WELLBUTRIN 15:49: mouth [place] SR) 150 mg 47 daily. Medical SR tablet Indication Bran ch s: 1tab Qam 2tabs Qpm SERTraline 2020-0 Yes 50mg Take 50 mg U nivers (ZOLOFT) 50 2-25 by mouth ity of mg tablet 15:49: daily. [address] tofacitinib 2020-0 Yes 11mg Take 11 mg Univers (XELJANZ 2-25 by mouth. ity of XR) 11 mg 15:49: [address] buPROPion 2020-0 Yes 150mg Take 150 Uni vers SR 2-25 mg by ity of (WELLBUTRIN 15:49: mouth [place] SR) 150 mg 47 daily. Medical SR tablet Indication Bran ch s: 1tab Qam 2tabs Qpm SERTraline 2020-0 Yes 50mg Take 50 mg U nivers (ZOLOFT) 50 2-25 by mouth ity of mg tablet 15:49: daily. [address] tofacitinib 0 Yes 11mg Take 11 mg Univers (XELJANZ 2-25 by mouth. ity of XR) 11 mg 15:49: [address] buPROPion 0 Yes 150mg Take 150 Uni vers SR 2-25 mg by ity of (WELLBUTRIN 15:49: mouth [place] SR) 150 mg 47 daily. Medical SR tablet Indication Bran ch s: 1tab Qam 2tabs Qpm SERTraline 2019-0 Yes 50mg Take 50 mg U nivers (ZOLOFT) 50 2-25 by mouth ity of mg tablet 15:49: daily. [address] tofacitinib 0 Yes 11mg Take 11 mg Univers (XELJANZ 2-25 by mouth. ity of XR) 11 mg 15:49: [address] buPROPion 0 Yes 150mg Take 150 Uni vers SR 2-25 mg by ity of (WELLBUTRIN 15:49: mouth [place] SR) 150 mg 47 daily. Medical SR tablet Indication Bran ch s: 1tab Qam 2tabs Qpm SERTraline 2019-0 Yes 50mg Take 50 mg U nivers (ZOLOFT) 50 2-25 by mouth ity of mg tablet 15:49: daily. [address] tofacitinib 0 Yes 11mg Take 11 mg Univers (XELJANZ 2-25 by mouth. ity of XR) 11 mg 15:49: [address] buPROPion 0 Yes 150mg Take 150 Uni vers SR 2-25 mg by ity of (WELLBUTRIN 15:49: mouth [place] SR) 150 mg 47 daily. Medical SR tablet Indication Bran ch s: 1tab Qam 2tabs Qpm SERTraline 2019-0 Yes 50mg Take 50 mg U nivers (ZOLOFT) 50 2-25 by mouth ity of mg tablet 15:49: daily. [address] tofacitinib 0 Yes 11mg Take 11 mg Univers (XELJANZ 2-25 by mouth. ity of XR) 11 mg 15:49: [address] Branch abatacept 0 2020- No 2506 125mg inject 125 Univers [...] Indication s: ARTHRITIS digoxin 125 2019-0 Yes [id number] 125ug Take 1 Univers mcg (0.125 2-25 tablet by ity of mg) tablet 00:00: mouth [place] 00 daily. Medical Branch furosemide 2020-0 Yes [id number] 40mg Take 1 Univers 40 mg 2-25 tablet by ity of tablet 00:00: mouth [place] 00 every Medical morning Branch and evening. sotalol 120 2019-0 Yes [id number] 120mg Take 1 Univers mg tablet 2-25 tablet by ity o f 00:00: mouth [place] 00 every 12 Medical (twelve) Branch hours. apixaban 5 2019-0 Yes 1358 5mg Take 1 Unive rs mg tablet 2-25 tablet by ity o f 00:00: mouth 2 [place] 00 (two) Medical times Branch daily. Indication s: atrial fibrillati on KCL 20 mEq 2019-0 Yes [id number] 20meq Take 1 Univers tablet 2-25 tablet by ity of 00:00: mouth [place] 00 daily. Medical Branch digoxin 125 2019-0 Yes [id number] 125ug Take 1 Univers mcg (0.125 2-25 tablet by ity of mg) tablet 00:00: mouth [place] 00 daily. Medical Branch furosemide 2019-0 Yes [id number] 40mg Take 1 Univers 40 mg 2-25 tablet by ity of tablet 00:00: mouth [place] 00 every Medical morning Branch and evening. sotalol 120 2020-0 Yes [id number] 120mg Take 1 Univers mg tablet 2-25 tablet by ity o f 00:00: mouth [place] 00 every 12 Medical (twelve) Branch hours. apixaban 5 2020-0 Yes 1358 5mg Take 1 Unive rs mg tablet 2-25 tablet by ity o f 00:00: mouth 2 [place] 00 (two) Medical times Branch daily. Indication s: atrial fibrillati on KCL 20 mEq 2020-0 Yes [id number] 20meq Take 1 Univers tablet 2-25 tablet by ity of 00:00: mouth [place] 00 daily. Medical Branch digoxin 125 2020-0 Yes [id number] 125ug Take 1 Univers mcg (0.125 2-25 tablet by ity of mg) tablet 00:00: mouth [place] 00 daily. Medical Branch furosemide 2020-0 Yes [id number] 40mg Take 1 Univers 40 mg 2-25 tablet by ity of tablet 00:00: mouth [place] 00 every Medical morning Branch and evening. sotalol 120 2020-0 Yes [id number] 120mg Take 1 Univers mg tablet 2-25 tablet by ity o f 00:00: mouth [place] 00 every 12 Medical (twelve) Branch hours. apixaban 5 2020-0 Yes 1358 5mg Take 1 Unive rs mg tablet 2-25 tablet by ity o f 00:00: mouth 2 [place] 00 (two) Medical times Branch daily. Indication s: atrial fibrillati on KCL 20 mEq 2020-0 Yes [id number] 20meq Take 1 Univers tablet 2-25 tablet by ity of 00:00: mouth [place] 00 daily. Medical Branch digoxin 125 2020-0 Yes [id number] 125ug Take 1 Univers mcg (0.125 2-25 tablet by ity of mg) tablet 00:00: mouth [place] 00 daily. Medical Branch furosemide 2020-0 Yes [id number] 40mg Take 1 Univers 40 mg 2-25 tablet by ity of tablet 00:00: mouth [place] 00 every Medical morning Branch and evening. sotalol 120 2020-0 Yes [id number] 120mg Take 1 Univers mg tablet 2-25 tablet by ity o f 00:00: mouth [place] 00 every 12 Medical (twelve) Branch hours. apixaban 5 2020-0 Yes 1358 5mg Take 1 Unive rs mg tablet 2-25 tablet by ity o f 00:00: mouth 2 [place] 00 (two) Medical times Branch daily. Indication s: atrial fibrillati on KCL 20 mEq 2020-0 Yes [id number] 20meq Take 1 Univers tablet 2-25 tablet by ity of 00:00: mouth [place] 00 daily. Medical Branch furosemide 2020-0 Yes [id number] 40mg Take 1 Univers 40 mg 2-25 tablet by ity of tablet 00:00: mouth [place] 00 every Medical morning Branch and evening. sotalol 120 2020-0 Yes [id number] 120mg Take 1 Univers mg tablet 2-25 tablet by ity o f 00:00: mouth [place] 00 every 12 Medical (twelve) Branch hours. apixaban 5 2020-0 Yes 1358 5mg Take 1 Unive rs mg tablet 2-25 tablet by ity o f 00:00: mouth 2 [place] 00 (two) Medical times Branch daily. Indication s: atrial fibrillati on KCL 20 mEq 2020-0 Yes [id number] 20meq Take 1 Univers tablet 2-25 tablet by ity of 00:00: mouth [place] 00 daily. Medical Branch furosemide 2020-0 Yes [id number] 40mg Take 1 Univers 40 mg 2-25 tablet by ity of tablet 00:00: mouth [place] 00 every Medical morning Branch and evening. sotalol 120 2020-0 Yes [id number] 120mg Take 1 Univers mg tablet 2-25 tablet by ity o f 00:00: mouth [place] 00 every 12 Medical (twelve) Branch hours. apixaban 5 2020-0 Yes 1358 5mg Take 1 Unive rs mg tablet 2-25 tablet by ity o f 00:00: mouth 2 [place] 00 (two) Medical times Branch daily. Indication s: atrial fibrillati on KCL 20 mEq 2020-0 Yes [id number] 20meq Take 1 Univers tablet 2-25 tablet by ity of 00:00: mouth [place] 00 daily. Medical Branch furosemide 2020-0 Yes [id number] 40mg Take 1 Univers 40 mg 2-25 tablet by ity of tablet 00:00: mouth [place] 00 every Medical morning Branch and evening. sotalol 120 2020-0 Yes [id number] 120mg Take 1 Univers mg tablet 2-25 tablet by ity o f 00:00: mouth [place] 00 every 12 Medical (twelve) Branch hours. apixaban 5 2020-0 Yes 1358 5mg Take 1 Unive rs mg tablet 2-25 tablet by ity o f 00:00: mouth 2 [place] 00 (two) Medical times Branch daily. Indication s: atrial fibrillati on KCL 20 mEq 2020-0 Yes [id number] 20meq Take 1 Univers tablet 2-25 tablet by ity of 00:00: mouth [place] 00 daily. Medical Branch furosemide 2020-0 Yes [id number] 40mg Take 1 Univers 40 mg 2-25 tablet by ity of tablet 00:00: mouth [place] 00 every Medical morning Branch and evening. sotalol 120 2020-0 Yes [id number] 120mg Take 1 Univers mg tablet 2-25 tablet by ity o f 00:00: mouth [place] 00 every 12 Medical (twelve) Branch hours. apixaban 5 2020-0 Yes 1358 5mg Take 1 Unive rs mg tablet 2-25 tablet by ity o f 00:00: mouth 2 [place] 00 (two) Medical times Branch daily. Indication s: atrial fibrillati on KCL 20 mEq 2020-0 Yes [id number] 20meq Take 1 Univers tablet 2-25 tablet by ity of 00:00: mouth [place] 00 daily. Medical Branch furosemide 2020-0 Yes [id number] 40mg Take 1 Univers 40 mg 2-25 tablet by ity of tablet 00:00: mouth [place] 00 every Medical morning Branch and evening. apixaban 5 2020-0 Yes 1358 5mg Take 1 Unive rs mg tablet 2-25 tablet by ity o f 00:00: mouth 2 [place] 00 (two) Medical times Branch daily. Indication s: atrial fibrillati on KCL 20 mEq 2020-0 Yes [id number] 20meq Take 1 Univers tablet 2-25 tablet by ity of 00:00: mouth [place] 00 daily. Medical Branch sotalol 120 2019-0 2020- No [id number] 120mg Take 1 Univers mg tablet 2-25 03-22 tablet by ity of 00:00: 00:00 mouth [place] 00 :00 every 12 Medical (twelve) Branch hours. digoxin 125 2019-0 2020- No [id number] 125ug Take 1 Univers mcg (0.125 2-25 05-06 tablet by ity of mg) tablet 00:00: 00:00 mouth [place] 00 :00 daily. Medical Branch furosemide 2020-0 Yes [id number] 40mg Take 1 Univers 40 mg 2-15 tablet by ity of tablet 00:00: mouth [place] 00 every Medical morning Branch and evening. Take 40 mg in AM and 20 mg in PM digoxin 125 2020-0 Yes 125ug Take 1 Uni vers mcg (0.125 2-15 tablet by ity of mg) tablet 00:00: mouth [place] 00 daily. Medical Branch sotalol 120 2019-0 Yes [id number] 120mg Take 1 Univers mg tablet 2-15 tablet by ity o f 00:00: mouth [place] 00 every 12 Medical (twelve) Branch hours. apixaban 5 2019-0 Yes 1358 5mg Take 1 Unive rs mg tablet 2-15 tablet by ity o f 00:00: mouth 2 [place] 00 (two) Medical times Branch daily. Indication s: atrial fibrillati on furosemide 2019- 2020- No [id number] 40mg Take 1 Univers 40 mg 2-15 [...] daily. Medical Branch sotalol 120 2020- No [id number] 120mg Take 1 Univers mg tablet 2-15 02-25 tablet by ity of 00:00: 00:00 mouth [place] 00 :00 every 12 Medical (twelve) Branch hours. apixaban 5 2019- No 1358 5mg Take 1 Univ ers mg tablet 2-15 02-25 tablet by ity of 00:00: 00:00 mouth 2 [place] 00 :00 (two) Medical times Branch daily. Indication s: atrial fibrillati on furosemide 2019-2019- No [id number] 40mg Take 1 Univers 40 mg 2-15 [...] daily. Medical Branch sotalol 120 2020- No [id number] 120mg Take 1 Univers mg tablet 2-15 02-25 tablet by ity of 00:00: 00:00 mouth [place] 00 :00 every 12 Medical (twelve) Branch hours. apixaban 5 2019-0 2020- No 1358 5mg Take 1 Univ ers mg tablet 2-15 02-25 tablet by ity of 00:00: 00:00 mouth 2 [place] 00 :00 (two) Medical times Branch daily. Indication s: atrial fibrillati on furosemide 2020-0 Yes [id number] 40mg Take 1 Univers 40 mg 2-13 tablet by ity of tablet 00:00: mouth [place] 00 every Medical morning Branch and evening. digoxin 125 2020-0 Yes 125ug Take 1 Uni vers mcg (0.125 2-13 tablet by ity of mg) tablet 00:00: mouth [place] 00 daily. Medical Branch apixaban 5 2020-0 Yes 1358 5mg Take 1 Unive rs mg tablet 2-13 tablet by ity o f 00:00: mouth 2 [place] 00 (two) Medical times Branch daily. Indication s: atrial fibrillati on furosemide 2020-0 2020- No [id number] 40mg Take 1 Univers 40 mg 2-13 [...] 5mg Take 1 Univ ers mg tablet -13 -25 tablet by ity of 00:00: 00:00 mouth 2 [place] 00 :00 (two) Medical times Branch daily. Indication s: atrial fibrillati on furosemide 2020-0 2020- No [id number] 40mg Take 1 Univers 40 mg 2-13 [...] 5mg Take 1 Univ ers mg tablet 2-13 -25 tablet by ity of 00:00: 00:00 mouth [...] 5mg Take 1 Univ ers mg tablet 1-17 05- tablet by ity of 00:00: 00:00 mouth 2 [place] 00 :00 (two) Medical times Branch daily. Indication s: atrial fibrillati on sotalol 120 2018-04 Yes [id number] 120mg Take 1 Univers mg tablet 2-11 tablet by ity o f 00:00: mouth [place] 00 every 12 Medical (twelve) Branch hours. sotalol 120 2018-04 Yes [id number] 120mg Take 1 Univers mg tablet 2-11 tablet by ity o f 00:00: mouth [place] 00 every 12 Medical (twelve) Branch hours. sotalol 120 2018-04- No [id number] 120mg Take 1 Univers mg tablet 2-11 - tablet by ity of 00:00: 00:00 mouth [place] 00 :00 every 12 Medical (twelve) Branch hours. apixaban 2018-04- No 1358 5mg Take 1 Univ ers mg tablet 2-04-13 tablet by ity of 00:00: 00:00 mouth 2 [place] 00 :00 (two) Medical times Branch daily. Indication s: atrial fibrillati on meloxicam 2018-04 Yes 15mg Take 15 mg [facility] ([facility]) 15 0-09 by mouth. [place] [facility] MG tablet 20:28: of 48 Medicin e Tofacitinib 2018-04 Yes 11mg Take 11 mg [facility] Citrate 11 0-09 by mouth. [place] [facility] [...] DAILY ELIQUIS 5 2018-04 Yes TAKE 1 [facility] MG TABS 0-07 TABLET BY College 00:00: MOUTH of 00 TWICE Medicin DAILY e buPROPion 2018-04 Yes TAKE 1 [facility] (WELLBUTRIN 0-[address] [facility] melania ) 150 MG XL 00:00: MOUTH ONCE of tablet 00 DAILY Medicin e tramadol 2018-04 Yes TAKE 1 [facility] (ULTRAM) 50 0-02 TABLET BY Col lege MG tablet 00:00: MOUTH of 00 EVERY 8 Medicin HOURS e NEEDED MAY MAKE DROWSY PENNSAID 2 Yes APPLY 2 [facility] % SOLN 12-23 PUMP BY College 00:00: TOPICAL of 00 [address] Medicin TIMES e EVERY DAY TO THE AFFECTED JOINT digoxin Yes [facility] (LANOXIN) 12-13 College 125 MCG 00:00: of [...] 00:00: of 00 Medicin e furosemide Yes [id number] 40mg Take 1 Univers 40 mg 9-05 tablet by ity of tablet 00:00: mouth [place] 00 every Medical morning Branch and evening. Take 40 mg in AM and 20 mg in PM furosemide Yes [id number] 40mg Take 1 Univers 40 mg 9-05 tablet by ity of tablet 00:00: mouth [place] 00 every Medical morning Branch and evening. Take 40 mg in AM and 20 mg in PM furosemide Yes [id number] 40mg Take 1 Univers 40 mg 9-05 tablet by ity of tablet 00:00: mouth [place] 00 every Medical morning Branch and evening. Take 40 mg in AM and 20 mg in PM furosemide Yes [id number] 40mg Take 1 Univers 40 mg 9-05 tablet by ity of tablet 00:00: mouth [place] 00 every Medical morning Branch and evening. Take 40 mg in AM and 20 mg in PM furosemide Yes [id number] 40mg Take 1 Univers 40 mg 9-05 tablet by ity of tablet 00:00: mouth [place] 00 every Medical morning Branch and evening. Take 40 mg in AM and 20 mg in PM furosemide Yes [id number] 40mg Take 1 Univers 40 mg 9-05 tablet by ity of tablet 00:00: mouth [place] 00 every Medical morning Branch and evening. Take 40 mg in AM and 20 mg in PM furosemide 2020- No [id number] 40mg Take 1 Univers 40 mg 9-05 02-13 tablet by ity of tablet 00:00: 00:00 mouth [place] 00 :00 every Medical morning Branch and evening. Take 40 mg in AM and 20 mg in PM sotalol Yes TAKE 1 [facility] (BETAPACE) 9-03 TABLET BY [facility] e[facility] 120 MG 00:00: MOUTH of tablet 00 EVERY 12 Medicin HOURS e furosemide Yes [id number] 40mg Take 1 Univers 40 mg 8-16 tablet by ity of tablet 00:00: mouth [place] 00 every Medical morning Branch and evening. Take 40 mg in AM and 20 mg in PM furosemide Yes [id number] 40mg Take 1 Univers 40 mg 8-16 tablet by ity of tablet 00:00: mouth [place] 00 every Medical morning Branch and evening. Take 40 mg in AM and 20 mg in PM furosemide 2019- No [id number] 40mg Take 1 Univers 40 mg 8-16 [...] mouth 00 daily. Medical Branch digoxin 125 2018- 2019- No 125ug Take 1 Un ean mcg tablet 10-14-13 tablet by ity of 00:00: 00:00 mouth [place] 00 :00 daily. Medical Branch furosemide 2018- 2019- No [id number] Take 40 mg Univers 40 mg - 08-16 in AM and ity of tablet [...] (two) Medical times Branch daily. sotalol 120 2018-0 Yes 120mg Take 1 [...] mouth ity of mg tablet 13:13: daily. [place] [facility] abatacept 2019-0 Yes 2506 125mg inject 125 U nivers (ORENCIA) 4-15 mg under ity of 125 mg/mL 13:13: [place] injection 02 every Medical Sunday. Branch Indication s: ARTHRITIS meloxicam 2019-0 Yes 15mg Take 15 mg Un ean 15 mg 4-15 by mouth ity of tablet 13:13: daily. [place] [address] Medical Branch predniSONE 2019-0 Yes 5mg Take 5 mg Un ean 5 mg tablet 4-15 by mouth ity of 13:13: daily. [place] [address] Medical Branch tofacitinib 2018-0 Yes 11mg Take 11 mg Univers (XELJANZ 4-15 by mouth. ity of XR) 11 mg 13:13: [address] buPROPion Yes 150mg Take 150 Uni vers SR 4-15 mg by ity of (WELLBUTRIN 13:13: mouth [place] SR) 150 mg 02 daily. Medical SR tablet Indication Bran ch s: 1tab Qam 2tabs Qpm SERTraline Yes 50mg Take 50 mg U nivers (ZOLOFT) 50 4-15 by mouth ity of mg tablet 13:13: daily. [address] abatacept Yes 2506 125mg inject 125 U nivers (ORENCIA) 4-15 mg under ity of 125 mg/mL 13:13: the [place] injection 02 every Sunday. Branch Indication s: ARTHRITIS meloxicam 2019 Yes 15mg Take 15 mg Un ean 15 mg 4-15 by mouth ity of tablet 13:13: daily. [address] predniSONE Yes 5mg Take 5 mg Un ean 5 mg tablet 4-15 by mouth ity of 13:13: daily. [address] tofacitinib Yes 11mg Take 11 mg Univers (XELJANZ 4-15 by mouth. ity of XR) 11 mg 13:13: [address] buPROPion Yes 150mg Take 150 Uni vers SR 4-15 mg by ity of (WELLBUTRIN 13:13: mouth [place] SR) 150 mg 02 daily. Medical SR tablet Indication Bran ch s: 1tab Qam 2tabs Qpm SERTraline Yes 50mg Take 50 mg U nivers (ZOLOFT) 50 4-15 by mouth ity of mg tablet 13:13: daily. [address] abatacept Yes 2506 125mg inject 125 U nivers (ORENCIA) 4-15 mg under ity of 125 mg/mL 13:13: the [place] injection 02 every Sunday. Branch Indication s: ARTHRITIS meloxicam 2019 Yes 15mg Take 15 mg Un ean 15 mg 4-15 by mouth ity of tablet 13:13: daily. [address] predniSONE 0 Yes 5mg Take 5 mg Un ean 5 mg tablet 4-15 by mouth ity of 13:13: daily. [address] tofacitinib Yes 11mg Take 11 mg Univers (XELJANZ 4-15 by mouth. ity of XR) 11 mg 13:13: [address] buPROPion Yes 150mg Take 150 Uni vers SR 4-15 mg by ity of (WELLBUTRIN 13:13: mouth [place] SR) 150 mg 02 daily. Medical SR tablet Indication Bran ch s: 1tab Qam 2tabs Qpm SERTraline Yes 50mg Take 50 mg U nivers (ZOLOFT) 50 4-15 by mouth ity of mg tablet 13:13: daily. [address] abatacept Yes 2506 125mg inject 125 U nivers (ORENCIA) 4-15 mg under ity of 125 mg/mL 13:13: the [place] injection 02 every Sunday. Branch Indication s: ARTHRITIS meloxicam Yes 15mg Take 15 mg Un ean 15 mg 4-15 by mouth ity of tablet 13:13: daily. [address] predniSONE Yes 5mg Take 5 mg Un ean 5 mg tablet 4-15 by mouth ity of 13:13: daily. [address] tofacitinib Yes 11mg Take 11 mg Univers (XELJANZ 4-15 by mouth. ity of XR) 11 mg 13:13: [address] buPROPion Yes 150mg Take 150 Uni vers SR 4-15 mg by ity of (WELLBUTRIN 13:13: mouth [place] SR) 150 mg 02 daily. Medical SR tablet Indication Bran ch s: 1tab Qam 2tabs Qpm SERTraline Yes 50mg Take 50 mg U nivers (ZOLOFT) 50 4-15 by mouth ity of mg tablet 13:13: daily. [address] abatacept Yes 2506 125mg inject 125 U nivers (ORENCIA) 4-15 mg under ity of 125 mg/mL 13:13: [place] injection 02 every Sunday. Branch Indication s: ARTHRITIS meloxicam Yes 15mg Take 15 mg Un ean 15 mg 4-15 by mouth ity of tablet 13:13: daily. [address] predniSONE 2019-0 Yes 5mg Take 5 mg Un ean 5 mg tablet 4-15 by mouth ity of 13:13: daily. [address] tofacitinib [address] Yes 11mg Take 11 mg Univers (XELJANZ 4-15 by mouth. ity of XR) 11 mg 13:13: [address] buPROPion 0 Yes 150mg Take 150 Uni vers SR 4-15 mg by ity of (WELLBUTRIN 13:13: mouth [place] SR) 150 mg 02 daily. Medical SR tablet Indication Bran ch s: 1tab Qam 2tabs Qpm SERTraline 2019 Yes 50mg Take 50 mg U nivers (ZOLOFT) 50 4-15 by mouth ity of mg tablet 13:13: daily. [address] abatacept Yes 2506 125mg inject 125 U nivers (ORENCIA) 4-15 mg under ity of 125 mg/mL 13:13: [place] injection 02 every Sunday. Branch Indication s: ARTHRITIS meloxicam 20190 Yes 15mg Take 15 mg Un ean 15 mg 4-15 by mouth ity of tablet 13:13: daily. [address] predniSONE 2019-0 Yes 5mg Take 5 mg Un ean 5 mg tablet 4-15 by mouth ity of 13:13: daily. [address] tofacitinib Yes 11mg Take 11 mg Univers (XELJANZ 4-15 by mouth. ity of XR) 11 mg 13:13: [address] buPROPion 0 Yes 150mg Take 150 Uni vers SR 4-15 mg by ity of (WELLBUTRIN 13:13: mouth [place] SR) 150 mg 02 daily. Medical SR tablet Indication Bran ch s: 1tab Qam 2tabs Qpm SERTraline 20190 Yes 50mg Take 50 mg U nivers (ZOLOFT) 50 4-15 by mouth ity of mg tablet 13:13: daily. [address] abatacept 20190 Yes 2506 125mg inject 125 U nivers (ORENCIA) 4-15 mg under ity of 125 mg/mL 13:13: [place] injection 02 every Sunday. Branch Indication s: ARTHRITIS meloxicam 2019 Yes 15mg Take 15 mg Un ean 15 mg 4-15 by mouth ity of tablet 13:13: daily. [address] predniSONE 2019 Yes 5mg Take 5 mg Un ean 5 mg tablet 4-15 by mouth ity of 13:13: daily. [address] tofacitinib Yes 11mg Take 11 mg Univers (XELJANZ 4-15 by mouth. ity of XR) 11 mg 13:13: [address] buPROPion Yes 150mg Take 150 Uni vers SR 4-15 mg by ity of (WELLBUTRIN 13:13: mouth [place] SR) 150 mg 02 daily. Medical SR tablet Indication Bran ch s: 1tab Qam 2tabs Qpm SERTraline Yes 50mg Take 50 mg U nivers (ZOLOFT) 50 4-15 by mouth ity of mg tablet 13:13: daily. [address] abatacept Yes 2506 125mg inject 125 U nivers (ORENCIA) 4-15 mg under ity of 125 mg/mL 13:13: [place] injection 02 every Sunday. Branch Indication s: ARTHRITIS meloxicam Yes 15mg Take 15 mg Un ean 15 mg 4-15 by mouth ity of tablet 13:13: daily. [address] predniSONE Yes 5mg Take 5 mg Un ean 5 mg tablet 4-15 by mouth ity of 13:13: daily. [address] tofacitinib Yes 11mg Take 11 mg Univers (XELJANZ 4-15 by mouth. ity of XR) 11 mg 13:13: [address] meloxicam Yes 15mg Take 15 mg Un ean 15 mg 4-15 by mouth ity of tablet 13:13: daily. [address] buPROPion Yes 150mg Take 150 Uni vers SR 4-15 mg by ity of (WELLBUTRIN 13:13: mouth [place] SR) 150 mg 02 daily. Medical SR tablet Indication Bran ch s: 1tab Qam 2tabs Qpm SERTraline Yes 50mg Take 50 mg U nivers (ZOLOFT) 50 4-15 by mouth ity of mg tablet 13:13: daily. [address] abatacept 2018-0 Yes 2506 125mg inject 125 U nivers (ORENCIA) 4-15 mg under ity of 125 mg/mL 13:13: [place] injection 02 [facility] Sunday. Branch Indication s: ARTHRITIS meloxicam Yes 15mg Take 15 mg Un ean 15 mg 4-15 by mouth ity of tablet 13:13: daily. [address] meloxicam 0 Yes 15mg Take 15 mg Un ean 15 mg 4-15 by mouth ity of tablet 13:13: daily. [address] predniSONE 0 Yes 5mg Take 5 mg Un ean 5 mg tablet 4-15 by mouth ity of 13:13: daily. [address] meloxicam Yes 15mg Take 15 mg Un ean 15 mg 4-15 by mouth ity of tablet 13:13: daily. [address] tofacitinib Yes 11mg Take 11 mg Univers (XELJANZ 4-15 by mouth. ity of XR) 11 mg 13:13: [place] Tb24 [address] [place] [address] meloxicam Yes 15mg Take 15 mg Un ean 15 mg 4-15 by mouth ity of tablet 13:13: daily. [address] meloxicam 0 Yes 15mg Take 15 mg Un ean 15 mg 4-15 by mouth ity of tablet 13:13: daily. [address] meloxicam Yes 15mg Take 15 mg Un ean 15 mg 4-15 by mouth ity of tablet 13:13: daily. [address] meloxicam 0 Yes 15mg Take 15 mg Un ean 15 mg 4-15 by mouth ity of tablet 13:13: daily. [address] meloxicam 0 Yes 15mg Take 15 mg Un ean 15 mg 4-15 by mouth ity of tablet 13:13: daily. [address] meloxicam 0 Yes 15mg Take 15 mg Un ean 15 mg 4-15 by mouth ity of tablet 13:13: daily. [address] buPROPion 0 Yes 150mg Take 150 Uni vers SR 4-15 mg by ity of (WELLBUTRIN 13:13: mouth [place] SR) 150 mg 02 daily. Medical SR tablet Indication Bran ch s: 1tab Qam 2tabs Qpm SERTraline 2019 Yes 50mg Take 50 mg U nivers (ZOLOFT) 50 4-15 by mouth ity of mg tablet 13:13: daily. [address] abatacept 2019 Yes 2506 125mg inject 125 U nivers (ORENCIA) 4-15 mg under ity of 125 mg/mL 13:13: [place] injection 02 every Sunday. Branch Indication s: ARTHRITIS meloxicam 2019 Yes 15mg Take 15 mg Un ean 15 mg 4-15 by mouth ity of tablet 13:13: daily. [address] predniSONE Yes 5mg Take 5 mg Un ean 5 mg tablet 4-15 by mouth ity of 13:13: daily. [address] tofacitinib Yes 11mg Take 11 mg Univers (XELJANZ 4-15 by mouth. ity of XR) 11 mg 13:13: [address] buPROPion Yes 150mg Take 150 Uni vers SR 4-15 mg by ity of (WELLBUTRIN 13:13: mouth [place] SR) 150 mg 02 daily. Medical SR tablet Indication Bran ch s: 1tab Qam 2tabs Qpm SERTraline Yes 50mg Take 50 mg U nivers (ZOLOFT) 50 4-15 by mouth ity of mg tablet 13:13: daily. [address] abatacept 2019 Yes 2506 125mg inject 125 U nivers (ORENCIA) 4-15 mg under ity of 125 mg/mL 13:13: [place] injection 02 every Sunday. Branch Indication s: ARTHRITIS meloxicam 2019 Yes 15mg Take 15 mg Un ean 15 mg 4-15 by mouth ity of tablet 13:13: daily. [address] predniSONE [address] Yes 5mg Take 5 mg Un ean 5 mg tablet 4-15 by mouth ity of 13:13: daily. [address] tofacitinib Yes 11mg Take 11 mg Univers (XELJANZ 4-15 by mouth. ity of XR) 11 mg 13:13: [address] buPROPion Yes 150mg Take 150 Uni vers SR 4-15 mg by ity of (WELLBUTRIN 13:13: mouth [place] SR) 150 mg 02 daily. Medical SR tablet Indication Bran ch s: 1tab Qam 2tabs Qpm SERTraline Yes 50mg Take 50 mg U nivers (ZOLOFT) 50 4-15 by mouth ity of mg tablet 13:13: daily. [address] Branch abatacept Yes 2506 125mg inject 125 U nivers (ORENCIA) 4-15 mg under ity of 125 mg/mL 13:13: [place] injection 02 every Medical Sunday. Branch Indication s: ARTHRITIS meloxicam Yes 15mg Take 15 mg Un ean 15 mg 4-15 by mouth ity of tablet 13:13: daily. [address] Branch predniSONE Yes 5mg Take 5 mg Un ean 5 mg tablet 4-15 by mouth ity of 13:13: daily. [address] Branch tofacitinib Yes 11mg Take 11 mg Univers (XELJANZ 4-15 by mouth. ity of XR) 11 mg 13:13: [place] Tb24 [address] [place] [address] Branch sucralfate 2018-0 Yes 1g Take 1 Unive [...] by ity of tablet 00:00: mouth at [place] 00 bedtime. Medical Branch traZODONE 2018-0 Yes 50mg Take 1 Univer s 50 mg 6-19 tablet by ity of tablet 00:00: mouth at [place] [address] bedtime. Medical Branch traZODONE 2018-0 Yes 50mg Take 1 Univer s 50 mg 6-19 tablet by ity of tablet 00:00: mouth at [place] [address] bedtime. Medical Branch traZODONE 2018-0 Yes 50mg Take 1 Univer s 50 mg 6-19 tablet by ity of tablet 00:00: mouth at [place] [address] bedtime. Medical Branch traZODONE 2018-0 Yes 50mg Take 1 Univer s 50 mg 6-19 tablet by ity of tablet 00:00: mouth at [place] [address] bedtime. Medical Branch traZODONE 2018-0 Yes 50mg Take 1 Univer s 50 mg 6-19 tablet by ity of tablet 00:00: mouth at [place] [address] bedtime. Medical Branch traZODONE 2018-0 Yes 50mg Take 1 Univer s 50 mg 6-19 tablet by ity of tablet 00:00: mouth at [place] [address] bedtime. Medical Branch traZODONE 2018-0 Yes 50mg Take 1 Univer s 50 mg 6-19 tablet by ity of tablet 00:00: mouth at [place] [address] bedtime. Medical Branch traZODONE 2018-0 Yes 50mg Take 1 Univer s 50 mg 6-19 tablet by ity of tablet 00:00: mouth at [place] [address] bedtime. Medical Branch traZODONE 2018-0 Yes 50mg Take 1 Univer s 50 mg 6-19 tablet by ity of tablet 00:00: mouth at [place] [address] bedtime. Medical Branch traZODONE 2018-0 Yes 50mg Take 1 Univer s 50 mg 6-19 tablet by ity of tablet 00:00: mouth at [place] [address] bedtime. Medical Branch traZODONE 2018-0 Yes 50mg Take 1 Univer s 50 mg 6-19 tablet by ity of tablet 00:00: mouth at [place] [address] bedtime. Medical Branch traZODONE 2018-0 2020- No 50mg Take 1 Unive rs 50 mg 6-19 02-25 tablet by ity of tablet 00:00: 00:00 mouth at [place] 00 :00 bedtime. Medical Branch traZODONE 2018-0 2020- No 50mg Take 1 Unive rs 50 mg 6-19 02-25 tablet by ity of tablet 00:00: 00:00 mouth at [place] 00 :00 bedtime. Medical Branch METHOTREXAT Yes [id number] Three tabs Univers E SODIUM 7-31 PO Once a ity of 2.5 MG ORAL 00:00: week [place] TAB 00 Medical Branch FOLIC ACID Yes [id number] One tab PO Univers 1 MG ORAL 7-31 Daily ity of TAB 00:00: [place] 00 Medical Branch METHOTREXAT Yes [id number] Three tabs Univers E SODIUM 7-31 PO Once a ity of 2.5 MG ORAL 00:00: week [place] TAB 00 Medical Branch FOLIC ACID Yes [id number] One tab PO Univers 1 MG ORAL 7-31 Daily ity of TAB 00:00: [place] 00 Medical Branch METHOTREXAT Yes [id number] Three tabs Univers E SODIUM 7-31 PO Once a ity of 2.5 MG ORAL 00:00: week [place] TAB 00 Medical Branch FOLIC ACID Yes [id number] One tab PO Univers 1 MG ORAL 7-31 Daily ity of TAB 00:00: [place] 00 Medical Branch METHOTREXAT Yes [id number] Three tabs Univers E SODIUM 7-31 PO Once a ity of 2.5 MG ORAL 00:00: week [place] TAB 00 Medical Branch FOLIC ACID Yes [id number] One tab PO Univers 1 MG ORAL 7-31 Daily ity of TAB 00:00: [place] 00 Medical Branch METHOTREXAT Yes [id number] Three tabs Univers E SODIUM 7-31 PO Once a ity of 2.5 MG ORAL 00:00: week [place] TAB 00 Medical Branch FOLIC ACID Yes [id number] One tab PO Univers 1 MG ORAL 7-31 Daily ity of TAB 00:00: [place] 00 Medical Branch METHOTREXAT Yes [id number] Three tabs Univers E SODIUM 7-31 PO Once a ity of 2.5 MG ORAL 00:00: week [place] TAB 00 Medical Branch FOLIC ACID Yes [id number] One tab PO Univers 1 MG ORAL 7-31 Daily ity of TAB 00:00: [place] 00 Medical Branch METHOTREXAT Yes [id number] Three tabs Univers E SODIUM 7-31 PO Once a ity of 2.5 MG ORAL 00:00: week [place] TAB 00 Medical Branch FOLIC ACID 2008-0 Yes [id number] One tab PO Univers 1 MG ORAL 7-31 Daily ity of TAB 00:00: [place] 00 Medical Branch METHOTREXAT 20080 Yes [id number] Three tabs Univers E SODIUM 7-31 PO Once a ity of 2.5 MG ORAL 00:00: week [place] TAB 00 Medical Branch FOLIC ACID 2008-0 Yes [id number] One tab PO Univers 1 MG ORAL 7-31 Daily ity of TAB 00:00: [place] 00 Medical Branch METHOTREXAT 0 Yes [id number] Three tabs Univers E SODIUM 7-31 PO Once a ity of 2.5 MG ORAL 00:00: week [place] TAB 00 Medical Branch FOLIC ACID 2007-0 Yes [id number] One tab PO Univers 1 MG ORAL 7-31 Daily ity of TAB 00:00: [place] 00 Medical Branch METHOTREXAT 0 Yes [id number] Three tabs Univers E SODIUM 7-31 PO Once a ity of 2.5 MG ORAL 00:00: week [place] TAB 00 Medical Branch FOLIC ACID 2007-0 Yes [id number] One tab PO Univers 1 MG ORAL 7-31 Daily ity of TAB 00:00: [place] 00 Medical Branch METHOTREXAT 2007-0 Yes [id number] Three tabs Univers E SODIUM 7-31 PO Once a ity of 2.5 MG ORAL 00:00: week [place] TAB 00 Medical Branch FOLIC ACID 2008-0 Yes [id number] One tab PO Univers 1 MG ORAL 7-31 Daily ity of TAB 00:00: [place] 00 Medical Branch METHOTREXAT 2008-0 Yes [id number] Three tabs Univers E SODIUM 7-31 PO Once a ity of 2.5 MG ORAL 00:00: week [place] TAB 00 Medical Branch FOLIC ACID 2008-0 Yes [id number] One tab PO Univers 1 MG ORAL 7-31 Daily ity of TAB 00:00: [place] 00 Medical Branch METHOTREXAT 2007-0 2020- No [id number] Three tabs Univers E SODIUM 7-31 02-25 PO Once a ity o f 2.5 MG ORAL 00:00: 00:00 week [place] TAB 00 :00 Medical Branch FOLIC ACID 2007-0 2020- No [id number] One tab PO Univers 1 MG ORAL 7-31 02-25 Daily ity of TAB 00:00: 00:00 [place] 00 :00 Medical Branch METHOTREXAT 2020- No [id number] Three tabs Univers E SODIUM 10-30 PO Once a ity o f 2.5 MG ORAL 00:00: 00:00 week [place] TAB 00 :00 Medical Branch FOLIC ACID 2020- No [id number] One tab PO Univers 1 MG ORAL 10-30 Daily ity of TAB 00:00: 00:00 [place] 00 :00 Medical Branch nitroglycer Yes Place Trever r in 08-[address] (NITROSTAT) 00:00: tongue. of 0.4 mg 00 [...] PRN ity o f SL SUBL 00:00: Medical Branch NITROGLYCER Yes 1 Tab SL [...] PRN ity o f SL SUBL 00:00: Medical Branch NITROGLYCER 2007-0 Yes 1 Tab SL Un ean IN 0.4 MG 5-08 Q5MIN PRN ity o f SL SUBL 00:00: [place] Medical Branch NITROGLYCER 0 Yes 1 Tab SL Un ean IN 0.4 MG 5-08 Q5MIN PRN ity o f SL SUBL 00:00: [place] [facility] NITROGLYCER 0 Yes 1 Tab SL Un ean IN 0.4 MG 5-08 Q5MIN PRN ity o f SL SUBL 00:00: [place] [facility] NITROGLYCER 2007-0 Yes 1 Tab SL Un ean IN 0.4 MG 5-08 Q5MIN PRN ity o f SL SUBL 00:00: [place] [facility] NITROGLYCER 0 Yes 1 Tab SL Un ean IN 0.4 MG 5-08 Q5MIN PRN ity o f SL SUBL 00:00: [place] [facility] NITROGLYCER 0 Yes 1 Tab SL Un ean IN 0.4 MG 5-08 Q5MIN PRN ity o f SL SUBL 00:00: [place] [facility] NITROGLYCER 2007-0 Yes 1 Tab SL Un ean IN 0.4 MG 5-08 Q5MIN PRN ity o f SL SUBL 00:00: [place] [facility] NITROGLYCER 0 Yes 1 Tab SL Un ean IN 0.4 MG 5-08 Q5MIN PRN ity o f SL SUBL 00:00: Medical Branch NITROGLYCER 2007-0 Yes 1 Tab SL Un ean IN 0.4 MG 5-08 Q5MIN PRN ity o f SL SUBL 00:00: [place] [facility] NITROGLYCER 0 Yes 1 Tab SL Un ean IN 0.4 MG 5-08 Q5MIN PRN ity o f SL SUBL 00:00: Medical Branch NITROGLYCER 0 Yes 1 Tab SL Un ean IN 0.4 MG 5-08 Q5MIN PRN ity o f SL SUBL 00:00: [place] [facility] Vital Signs Vital Name Observation Time Observation Value Comments Source WEIGHT 2020-03-03 11:02:00 91.491 kg Systolic blood 2019-05-27 15:46:00 133 mm[Hg] Univer sity of pressure [place] [facility] Diastolic blood 2019-05-27 15:46:00 69 mm[Hg] Unive rsity of pressure [facility] Heart rate 2019-05-27 15:46:00 67 /min Universi ty of [place] [facility] Respiratory rate 2019-05-27 15:46:00 19 /min [facility] Body height 2019-05-27 15:46:00 180.3 cm Universi ty of [place] [facility] [place] Body weight 2019-05-27 15:46:00 91.853 kg Universi ty of [place] [facility] BMI 2019-05-27 15:46:00 28.24 kg/m2 Universi ty of [facility] Oxygen saturation in 2019-05-27 15:46:00 97 /min University of Arterial blood by [facility] Pulse oximetry Branch Systolic blood 2019-05-27 15:46:00 133 mm[Hg] Univer sity of pressure [facility] Diastolic blood 2019-05-27 15:46:00 69 mm[Hg] Unive rsity of pressure [facility] Heart rate 2019-05-27 15:46:00 67 /min Universi ty of [place] [facility] Respiratory rate 2019-05-27 15:46:00 19 /min [facility] [place] [facility] Body height 2019-05-27 15:46:00 180.3 cm Universi ty of [place] [facility] [place] Body weight 2019-05-27 15:46:00 91.853 kg Universi ty of [place] [facility] BMI 2019-05-27 15:46:00 28.24 kg/m2 Universi ty of [place] [facility] Oxygen saturation in 2019-05-27 15:46:00 97 /min University of Arterial blood by [facility] Pulse oximetry Branch Procedures Procedure Date / Time Performing Clinician Source Performed MEDICATION CORRESPONDENCE 2020-05-20 06:01:00 Doctor Luis, [facility] Name Medical Branch AUTHORIZATION FOR RELEASE 2019-12-25 05:01:00 Doctor Alvinoigned, [facility] [place] [facility] AUTHORIZATION FOR RELEASE 2019-06-26 05:01:00 Doctor Carlissigned, [facility] Name Medical [place] SCANNED LAB RESULTS 2018-12-04 05:01:00 Genevieve [facility] [place] [facility] Plan of Care Planned Activity Planned Date Details Comments Source Future Scheduled NH CORNEAL SMEAR Ordered: [facility] of Test [code = 44945] 01/08/2019 Medicine Future Scheduled COLON CANCER [facility] of Test SCREENING: Medicine COLONOSCOPY [code = COLON CANCER SCREENING: COLONOSCOPY] Future Scheduled MAMMOGRAM ANNUAL [facility] of Test [code = MAMMOGRAM Medicine ANNUAL] Future Scheduled TETANUS SHOT (ADULT) [facility] Test [code = TETANUS SHOT Medicin e (ADULT)] Future Scheduled HEPATITIS C [facility] of Test SCREENING [code = Medicine HEPATITIS C SCREENING] Future Scheduled HIV SCREENING [code [facility] of Test = HIV SCREENING] Medicine Future Scheduled CERVICAL CANCER [facility] ollege of Test SCREENING 3 YEAR Medicine FOLLOW UP [code = CERVICAL CANCER SCREENING 3 YEAR FOLLOW UP] Future Scheduled FLU VACCINE > 6 [facility] ollege of Test MONTHS [code = FLU Medicine VACCINE > 6 MONTHS] Encounters Start End Encounter Admission Attending Care Care Encounter Source Date/Time Date/Time Type Type Clinicians Facility Department ID 2020-09-29 2020-09-29 Outpatient [facility] [id number] [place] 00:00:00 00:00:00 DEVORA Rodriguez5 Method i 2020-09-16 2020-09-22 Inpatient FORCE, [facility] [id number] [place] 00:00:00 00:00:00 KRISTA Quintanilla3 Me thodi 2020-08-19 2020-08-19 Outpatient [facility] [id number] [place] 00:00:00 00:00:00 , GM 849 Metho di 2020-08-19 2020-08-19 Outpatient [facility] [id number] [place] 00:00:00 00:00:00 , GM 101 Metho di 2020-07-19 2020-07-27 Inpatient NITIN [facility] [id number] [place] 00:00:00 00:00:00 , GM 197 Metho di 2020-07-14 2020-07-14 Outpatient [facility] [id number] [place] 00:00:00 00:00:00 , GM 205 Metho di 2020-07-14 2020-07-14 Outpatient [facility] [id number] [place] 00:00:00 00:00:00 , GM 428 Metho di 2020-07-14 2020-07-14 Outpatient [facility] [id number] [place] 00:00:00 00:00:00 , GM 182 Metho di 2020-06-23 2020-06-23 Outpatient [facility] [id number] [place] 00:00:00 00:00:00 , GM 678 Metho di 2020-06-23 2020-06-23 Outpatient [facility] [id number] [place] 00:00:00 00:00:00 , GM 463 Metho di 2020-06-23 2020-06-23 Outpatient [facility] [id number] [place] 00:00:00 00:00:00 , GM 967 Metho di 2020-06-21 2020-06-21 [facility] 1.2.840.114 [id number] 00:00:00 [facility]:00[facility] [id number] [place] [phone] 2020-06-21 2020-06-21 [facility] 1.2.840.114 [id number] [facility] 00:00:00 00:00:00 [facility] [id number] ity [id number] Profess[place] [phone] [place] dic[address] 2020-06-09 2020-06-09 Patient [facility] 1.2.840.114 [id number] 00:00:00 00:00:00 Outreach Jeremy PRIMARY [id number] [place] [facility] [id number] PAVILLION [id number] [facility] 2020-06-09 2020-06-09 Patient [facility] 1.2.840.114 [id number] [facility] 00:00:00 00:00:00 Outreach Jeremy PRIMARY [id number] i ty of [place] [id number] [phone] [place] dical [address] [place] [address] 2020-06-01 2020-06-01 Outpatient Checo GUERRERO, [facility] [id number] [facility] 09:00:00 09:00:00 CELIARUBA [id number] ity o f [facility] 2020-05-31 2020-05-31 Outpatient Checo GUERRERO [facility] [id number] [facility] 09:00:00 09:00:00 ANNA MARIE [id number] ity o [facility] 2020-05-20 2020-05-20 Orders Doctor JEREMY 1.2.840.114 [id number] 00:00:00 00:00:00 Only Unassigned, LUCIAN [id number] [place] [facility] [id number] [id number] [facility] 2020-05-20 2020-05-20 Orders Doctor JEREMY 1.2.840.114 [id number] [facility] 00:00:00 00:00:00 Only Unassigned, LUCIAN [id number] ity of [place] [facility] [id number] Sharif as [phone] [address] 2020-04-28 2020-04-28 Outpatient EL LETSOU, [facility] [id number] [facility] 00:00:00 00:00:00 FREELAND 2020-03-22 2020-03-22 Outpatient LETSOU, [facility] [id number] [facility] 00:00:00 00:00:00 FREELAND 2020-03-22 2020-03-22 Outpatient EL LETSOU, [facility] [id number] [facility] 00:00:00 00:00:00 FREELAND 2020-03-03 2020-03-03 Outpatient EL LETSOU, [facility] [id number] [facility] 00:00:00 00:00:00 FREELAND 2020-02-17 2020-02-17 [id number] [place] 00:00:00 00:00:00 NANI Goodwin [facility] 2019-12-25 2019-12-25 Orders Doctor JEREMY 1.2.840.114 [id number] 00:00:00 00:00:00 Only Unassigned, LUCIAN [id number] [place] [facility] [id number] [id number] 2019-12-25 2019-12-25 Orders Doctor JEREMY 1.2.840.114 [id number] Univers 00:00:00 00:00:00 Only Unassigned, LUCIAN [id number] ity of [place] [facility] [id number] Sharif as [phone] [address] 2019-08-04 2019-08-04 Refill [facility], [facility] 1.2.840.114 [id number] 00:00:00 00:00:00 Qiangjun [place] [id number] [place] [id number] Professio [phone] [address] 2019-08-04 2019-08-04 Refill [facility], [facility] 1.2.840.114 [id number] [facility] 00:00:00 00:00:00 Qiangjun [place] [id number] ity [id number] [phone] [place] dic[address] 2019-07-29 2019-07-29 Refill [facility], [facility] 1.2.840.114 [id number] 00:00:00 00:00:00 Qiangjun [place] [id number] [place] [id number] Professio [phone] [address] 2019-07-29 2019-07-29 Refill [facility], [facility] 1.2.840.114 [id number] Univers 00:00:00 00:00:00 Qiangjun [place] [id number] ity of [id number] [phone] [place] dic[address] 2019-06-26 2019-06-26 Orders Doctor LUNA 1.2.840.114 [id number] 00:00:00 00:00:00 Only Unassigned, LUCIAN [id number] [place] [facility] [id number] [id number] 2019-06-26 2019-06-26 Orders Doctor JEREMY 1.2.840.114 [id number] Univers 00:00:00 00:00:00 Only Unassigned, LUCIAN [id number] ity of [place] [facility] [id number] Sharif as [phone] [address] 2019-05-29 2019-05-29 Outpatient R [facility] [id number] Univers 08:00:00 08:00:00 [id number] ity of [facility] 2019-05-27 2019-05-27 Office [facility] 1.2.840.114 [id number] 09:24:52 10:34:57 Visit Anna Marie Giordano [id number] [place] [id number] Professio [phone] [address] 2019-05-27 2019-05-27 Office [facility] 1.2.840.114 [id number] Univers 09:24:52 10:34:57 Visit Anna Marie Giordano [id number] ity of [id number] [phone] [place] dic[address] 2019-05-27 2019-05-27 Outpatient R [facility] [id number] Univers 09:20:00 09:20:00 ANNA MARIE ulloa o f [facility] 2019-05-14 2019-05-14 Refill [facility] 1.2.840.114 [id number] Univers 00:00:00 00:00:00 Anna Marie Giordano [id number] ity of [id number] [phone] [place] dic[address] 2019-05-07 2019-05-07 Refill [facility] [id number] [employer] 00:00:00 00:00:00 Anna Marie Giordano [id number] [id number] [phone] [place] [address] [place] [address] 2019-04-16 2019-04-16 Patient Doctor [facility] [id number] Univers 00:00:00 00:00:00 Secure Msg Unassigned, Pasquale [id number] [place] [id number] [phone] [place] yamila [address] 2019-04-13 2019-04-13 Refill Cesar, [facility] [id number] [facility] 00:00:00 00:00:00 Carolynenuviaruba Giordano [id number] [id number] [phone] [address] 2019-01-08 2019-01-08 Office JOSH Gtz [id number] 14:16:47 17:54:57 Visit Esther Y AMBULATOR [id number] Y [id number] [phone] [facility] 2019-01-08 2019-01-08 Office JOSH Gtz [id number] [facility] 14:16:47 17:54:57 Visit Esther Y AMBULATOR [id number] College Y 0.2.7.2.686 of [phone] [facility] 300 e 2018-12-17 2018-12-17 Telephone [facility], [facility] [id number] [employer] 00:00:00 00:00:00 Anna Marie Giordano [id number] [id number] [phone] [address] 2018-12-13 2018-12-13 Telephone [facility] [id number] [employer] 00:00:00 00:00:00 Anna Marie Okeene [id number] [id number] [phone] [address] 2018-12-12 2018-12-12 [facility] [id number] [employer] 00:00:00 00:00:00 Qianuviaruba [place] [id number] [place] [phone] [place] [address]859 [facility] 2018-12-05 2018-12-05 Telephone [facility] [id number] [employer] 00:00:00 00:00:00 Anna Marie Giordano [id number] [place] [phone] [address] 2018-12-05 2018-12-05 [facility] [id number] [employer] 00:00:00 00:00:00 Anna Marie Giordano [id number] [place] [phone] [address] 2018-12-04 2018-12-04 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 Developer 1, [facility] [id number] [id number] Univers 08:21:22 08:36:22 Visit Anna Marie Guerrero [id number] [place] [phone] [facility] [address] 2018-12-04 2018-12-04 Orders Doctor JEREMY [id number] [employer] 00:00:00 00:00:00 Only Unassigned, LUCIAN [id number] ity of [facility] 4.2.7.2.686 Sharif as [phone] [facility] [address] 2018-11-15 2018-11-15 Telephone [facility] [id number] Univers 00:00:00 00:00:00 Anna Marie Giordano [id number] [place] [phone] [address] Results Test Description Test Time Test Comments Results Result Comments Source SARS-CoV-2 (COVID-19) RNA [Presence] in Respiratory sp ecimen by 2020-07-14 19:06:02 ANIBAL with probe detection Test Item Value Reference Range Interpretation Comme nts SARS-CoV-2 (COVID-19) RNA [Presence] in Respiratory Not detected No t-Detected specimen by ANIBAL with probe detection (test code = 34254-7)
[2021-05-01] MEDS ORDERED: dexAMETHasone 10 MG/ML VIAL ONE (18:32)
[2021-05-01] MEDS ORDERED: LEVALBUTEROL 1.25 MG/3 ML NEB ONE (18:32)
--- NOTE | 2021-05-01 20:21 | RAD REPORT ---
EXAM DESCRIPTION: RAD - Chest Single View - 05/01/2021 7:21 pm CLINICAL HISTORY: SOB, COVID positive COMPARISON: Portable April 29 TECHNIQUE: AP portable chest image was obtained 05/01/2021 7:21 pm . FINDINGS: Prominent interstitial markings are present throughout the chest similar to comparison. Th ere are patchy alveolar opacities present. Peripheral airspace opacities are slightly worse than 2 da ys earlier. Pattern is consistent with a COVID-19 pneumonia superimposed on chronic interstitial lung disease. Sternotomy wires are in place. Heart and vasculature are normal. No measurable pleural effusion and n o pneumothorax. No acute bony abnormality seen. No acute aortic findings suspected. IMPRESSION: Interstitial and alveolar opacification pattern consistent with COVID-19 pneumonia super imposed on fibrosis.
--- NOTE | 2021-05-01 21:41 | EDPHYS ---
Physician Documentation [facility] Name: Celsa Lorenzo Age: 66 yrs Sex: Female : 1955 Arrival Date: 05/01/2021 Time: 16:30 Bed 28 Private MD: ED Physician Jerald Perdue HPI: 05/01 18:03 This 66 yrs old Female presents to ER via Wheelchair with complaints of Breathing pm1 Difficulty. 18:03 The patient has shortness of breath Due to covid. Onset: The symptoms/episode pm1 began/occurred 3 day(s) ago. Duration: The symptoms are continuous. The patient's shortness of breath is aggravated by nothing, is alleviated by nothing. Associated signs and symptoms: Pertinent positives: cough, Pertinent negatives: chest pain, fever, nausea, vomiting. Severity of symptoms: in the emergency department the symptoms are worse. The patient has been recently seen at the [facility] Emergency Department, for similar complaints on Sunday. Historical: - Allergies: 17:04 Betadine; vg1 17:04 Iodine; Topical only; vg1 - Home Meds: 17:04 Eliquis 5 mg Oral tab 1 tab 2 times per day [Active]; Lasix 40 mg Oral tab 20mg at vg1 night [Active]; metoprolol PO BID [Active]; Wellbutrin 150mg Oral 1 tab daily [Active]; Xeljanz Oral [Active]; Zoloft 50 mg Oral tab 1 tab once daily [Active]; - PMHx: 17:04 ADD/ADHD; Atrial Fib; cardioversion; CHF; COPD; Hypertension; mitral valve stenosis; vg1 pulmonary HTN; resp failure; Rheumatoid Arthritis; - PSHx: 17:04 Appendectomy; section; Cholecystectomy; mitral and tricupid valve vg1 replacement.; Tonsillectomy; tubal ligation; - Immunization history:: Client reports having NOT received the Covid vaccine. - Social history:: Smoking status: Patient/guardian denies using tobacco, the patient reports quitting approximately 1 years ago. ROS: 18:03 Constitutional: Negative for fever, chills, and weight loss, Cardiovascular: Negative pm1 for chest pain, palpitations, and edema. 18:03 Abdomen/GI: Negative for abdominal pain, nausea, vomiting, diarrhea, and constipation, Back: Negative for injury and pain, MS/Extremity: Negative for injury and deformity, Skin: Negative for injury, rash, and discoloration, Neuro: Negative for headache, weakness, numbness, tingling, and seizure. 18:03 Respiratory: Positive for cough, shortness of breath. 18:03 All other systems are negative. Exam: 18:03 Constitutional: This is a well developed, well nourished patient who is awake, alert, pm1 and in no acute distress. Head/Face: Normocephalic, atraumatic. 18:03 Back: No spinal tenderness. No costovertebral tenderness. Full range of motion. Skin: Warm, dry with normal turgor. Normal color with no rashes, no lesions, and no evidence of cellulitis. MS/ Extremity: Pulses equal, no cyanosis. Neurovascular intact. Full, normal range of motion. 18:03 Cardiovascular: Exam negative for acute changes, Rate: tachycardic, Rhythm: regular, Pulses: no pulse deficits are appreciated, Heart sounds: normal, normal S1and S2, Edema: is not appreciated. 18:03 Respiratory: the patient does not display signs of respiratory distress, Breath sounds: wheezing: that is mild, is heard diffusely. 18:03 Neuro: Exam negative for acute changes, Orientation: is normal, Mentation: is normal, Motor: is normal, moves all fours. Vital Signs: 16:59 BP 132 / 83; Pulse 103; Resp 22; Temp 99.4(TE); Pulse Ox 95% ; Weight 88.45 kg; Height vg1 5 ft. 9 in. (175.26 cm); Pain 2/10; 16:59 Body Mass Index 28.80 (88.45 kg, 175.26 cm) vg1 MDM: 17:54 Patient medically screened. graciela 18:03 ED course: Patient refused lab work. Patient wanted only a chest xray to find out if pm1 she has covid pneumonia. 21:40 Data reviewed: vital signs. Data interpreted: Pulse oximetry: on room air is 95 %. pm1 Interpretation: normal. Counseling: I had a detailed discussion with the patient and/or guardian regarding: the historical points, exam findings, and any diagnostic results supporting the discharge/admit diagnosis, radiology results, the need for outpatient follow up, to return to the emergency department if symptoms worsen or persist or if there are any questions or concerns that arise at home. 05/01 18:58 Order name: Chest Single View; Complete Time: 21:08 EDMS Administered Medications: 18:46 Drug: Xopenex (levalbuterol) 2.5 mg Route: Inhalation; [facility] 18:46 Drug: Decadron (dexamethasone) 10 mg Route: IM; Site: left deltoid; [facility] Disposition: 05/02 10:35 Co-signature as Attending Physician, Jerald Perdue MD I agree with the assessment and graciela plan of care. Disposition Summary: 05/01/21 21:41 Discharge Ordered Location: Home pm1 Problem: new pm1 Symptoms: have improved pm1 Condition: Stable pm1 Diagnosis - Pneumonia due to SARS-associated coronavirus pm1 Followup: pm1 - With: Emergency Department - When: As needed - Reason: Worsening of condition Followup: pm1 - With: Private Physician - When: 2 - 3 days - Reason: Recheck today's complaints, Continuance of care, Re-evaluation by your physician Discharge Instructions: - Discharge Summary Sheet pm1 - COVID-19 pm1 - COVID-19 Frequently Asked Questions pm1 - 10 Things You Can Do to Manage Your COVID-19 Symptoms at Home - [facility] pm1 - COVID-19: Quarantine vs. Isolation - [facility] pm1 Forms: - Medication Reconciliation Form pm1 - Thank You Letter pm1 - Antibiotic Education pm1 - Prescription Opioid Use pm1 Prescriptions: - Prednisone 20 mg Oral Tablet - take 3 tablets by ORAL route once daily for 5 days; 15 tablet; Refills: 0, pm1 Product Selection Permitted - Albuterol Sulfate 2.5 mg /3 mL (0.083 %) Inhalation Solution for Nebulization - inhale 1 unit by NEBULIZATION route every 8 hours As needed; 1 box; Refills: 0, pm1 Product Selection Permitted - Zithromax Z-Dionte 250 mg Oral Tablet - take 1 tablet by ORAL route as directed for 5 days Day 1 - take two (2) tablets pm1 one time. Day 2, 3, 4 , 5 take one (1) tablet once daily.; 6 tablet; Refills: 0, Product Selection Permitted Signatures: Dispatcher [employer] EDWA Jerald Perdue MD MD cha Marinas, Patrick, DEMOGRAPHIC ANALYST DEMOGRAPHIC ANALYST pm1 Letha Kuo RN RN vg1 Hanna Garcia RN RN jh6 Corrections: (The following items were deleted from the chart) 05/01 18:58 18:04 Chest Pa And Lat (2 Views)+[email or web address] ordered. EDMS EDMS
--- NOTE | 2021-05-01 21:41 | ER ---
Nurse's Notes [facility] Name: Celsa Lorenzo Age: 66 yrs Sex: Female : 1955 Arrival Date: 05/01/2021 Time: 16:30 Bed 28 Private MD: Diagnosis: Pneumonia due to SARS-associated coronavirus Presentation: 05/01 16:59 Chief complaint: Patient states: was in ED Sunday and was tested for COVID with vg1 Positive results; states SOB, ABD pain, cough and congestion and 'doesn't feel like is getting any better'. Coronavirus screen: Vaccine status: Patient reports being unvaccinated. Client denies travel out of the [place] in the last 14 days. Ebola Screen: Patient negative for fever greater than or equal to 101.5 degrees Fahrenheit, and additional compatible Ebola Virus Disease symptoms. Initial Sepsis Screen: Does the patient meet any 2 criteria? RR > 20 per min. HR > 90 bpm. Yes Does the patient have a suspected source of infection? No. Patient's initial sepsis screen is negative. Risk Assessment: Do you want to hurt yourself or someone else? Patient reports no desire to harm self or others. Onset of symptoms was April 29, 2021. 16:59 Method Of Arrival: Wheelchair vg1 16:59 Acuity: MAXIMO 3 vg1 Triage Assessment: 17:04 General: Appears in no apparent distress. uncomfortable, Behavior is calm, cooperative. vg1 Pain: Complains of pain in generalized body. 17:04 Respiratory: Airway is patent Respiratory effort is even, unlabored, Respiratory vg1 pattern is tachypnea. Historical: - Allergies: 17:04 Betadine; vg1 17:04 Iodine; Topical only; vg1 - Home Meds: 17:04 Eliquis 5 mg Oral tab 1 tab 2 times per day [Active]; Lasix 40 mg Oral tab 20mg at vg1 night [Active]; metoprolol PO BID [Active]; Wellbutrin 150mg Oral 1 tab daily [Active]; Xeljanz Oral [Active]; Zoloft 50 mg Oral tab 1 tab once daily [Active]; - PMHx: 17:04 ADD/ADHD; Atrial Fib; cardioversion; CHF; COPD; Hypertension; mitral valve stenosis; vg1 pulmonary HTN; resp failure; Rheumatoid Arthritis; - PSHx: 17:04 Appendectomy; section; Cholecystectomy; mitral and tricupid valve vg1 replacement.; Tonsillectomy; tubal ligation; - Immunization history:: Client reports having NOT received the Covid vaccine. - Social history:: Smoking status: Patient/guardian denies using tobacco, the patient reports quitting approximately 1 years ago. Screenin:48 Abuse screen: Denies threats or abuse. Nutritional screening: No deficits noted. 6 Tuberculosis screening: No symptoms or risk factors identified. Fall Risk None identified. Assessment: 18:46 General: Appears in no apparent distress. uncomfortable, well groomed, Behavior is jh6 calm, cooperative. Cardiovascular: No deficits noted. Respiratory: Reports shortness of breath on exertion cough that is non-productive, hacking, pain with cough since 2wks Airway is patent Trachea midline Respiratory effort is even, unlabored, Respiratory pattern is regular, Onset: The symptoms/episode began/occurred has had covid x 15 days. states that cough and weakness has not gone away. Vital Signs: 16:59 BP 132 / 83; Pulse 103; Resp 22; Temp 99.4(TE); Pulse Ox 95% ; Weight 88.45 kg; Height vg1 5 ft. 9 in. (175.26 cm); Pain 2/10; 16:59 Body Mass Index 28.80 (88.45 kg, 175.26 cm) vg1 ED Course: 16:30 Patient arrived in ED. mr 17:04 Triage completed. vg1 17:04 Arm band placed on. vg1 17:46 Patient placed in an exam room, on a stretcher. ll1 17:51 Pk Bruno NP is PHCP. pm1 17:51 Jerald Perdue MD is Attending Physician. pm1 18:29 Hanna Garcia, EDWINA is Primary Nurse. jh6 18:48 Bed in low position. Call light in reach. Adult w/ patient. jh6 19:21 Chest Single View In Process Unspecified. EDMS Administered Medications: 18:46 Drug: Xopenex (levalbuterol) 2.5 mg Route: Inhalation; jh6 18:46 Drug: Decadron (dexamethasone) 10 mg Route: IM; Site: left deltoid; 6 Outcome: 21:41 Discharge ordered by . pm1 22:01 Patient left the ED. st1 Signatures: Dispatcher [employer] EDMS Froylan, Kavita mr Damion, Pk, ZINC SKIMMER ZINC SKIMMER pm1 Letha Kuo, RN RN vg1 Corina Velasquez RN RN ll1 Hanna Garcia, RN RN jh6 Maylin Bergeron, EDWINA RN st1
[2021-05-01 22:10] VITALS: BP 132/83; TEMP 99.4; O2SAT 95
== END 2021-05-01 22:01 | disposition home or self-care (01) ==
LOC: ER 16:26
DX: U07.1 COVID-19 (principal); J12.82 Pneumonia due to coronavirus disease 2019; I10 Essential (primary) hypertension; J44.9 Chronic obstructive pulmonary disease, unspecified; I50.9 Heart failure, unspecified; Z79.01 Long term (current) use of anticoagulants; Z88.3 Allergy status to other anti-infective agents; Z88.8 Allergy status to other drugs, medicaments and biological substances
CPT/HCPCS: 71045; J1100

== ENCOUNTER 2021-05-04 16:29 | Inpatient (IN) | payer OTHER ==
--- OUTSIDE RECORDS SUMMARY | 2021-05-04 16:35 | XMS REPORT | Continuity of Care Document ---
:1955 Author Organization [facility] t Address [address] [place] [address] Care Team Providers Name Role Phone SHIRAZ [...] Number Effective Date Expiration Date S matt AAR/MEDICARE [id number] 2019 COMPLETE 00:00:00 Problems Condition Condition Condition Status Onset Resolution Last Treating Co mments Source Name Details Category Date Date Treatment Clinician Date Acute on Acute on Disease Active Unive rs chronic chronic 6-15 [place] congest[place] congestive 00 Me dical heart heart Branch failure failure Pulmonary Pulmonary Disease Active Uni vers embolism embolism 9-11 ity of 00:00: [place] [address] Medical Branch Atrial Atrial Disease Active Univers fibrillati fibrillati 8-06 it y of on on 00:00: [place] [address] Medical Branch Obesity Obesity Disease Active Univers [...] ICD10 ity of 00:00: Diagnosis 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 -21 ity of 00:00: [place] [facility] Chest pain Chest pain Disease Active Overview : Univers 5-21 ICD10 ity of 00:00: Diagnosis [place] 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 No known No known Disease [facility] active active Impact problems problems of Medicin e Allergies, Adverse Reactions, Alerts Allergy Allergy Status Severity Reaction(s) Onset Inactive Treating Comm ents Source Name Type Date Date Clinician CODEINE Allergy Active High 2019-[address] [facility] POVIDONE Allergy Active High Hives 2019-[address] [facility] -IODINE 1-16 [facility] Iodine Propensi Active 2018-04 [facility] Tincture ty to 009 Impact adverse 00:00: of reaction 00 Medicin s to e drug IODINE-I Allergy Active 2018-[address] [facility] SOPROPYL 009 [facility] - ALCOHOL 00:[facility]: [facility] 00 Center Avocado Propensi Active Other - See Pt Un ean ty to comments 11-04 reports ity of adverse 00:00: upset [place] reaction 00 stomach Medical s after Branch consumpti on but no n/v. Dexter Sapp [place] ext. [id number] AVOCADO DRUG Active Other-Cmnt Unive rs INGREDI 11-04 ity of 00:00: [place] 00 Medical Branch AVOCADO Allergy Active [facility] Iodine Propensi Active Hives 2007- topical Univers ty to 5-07 ity of adverse 00:00: [place] reaction 00 [facility] s Branch IODINE DRUG Active Hives 2007- Univers INGREDI 5-07 ity of 00:00: [place] 00 [facility] Branch IODINE Allergy Active Hives 2007- [facility] Social History Social Habit Start Date Stop Date Quantity Comments Source Sex Assigned At [facility] Co llege of Medicine History of tobacco Cigarette Smoker University of use [facility] Tobacco use and 2019-05-27 2019-05-27 Never used Universit y of exposure 00:00:00 00:00:00 [facility] Cigarettes smoked 2019-05-27 2019-05-27 Univers ity of current (pack per 00:00:00 00:00:00 [facility] ) - Reported Branch Cigarette 2019-05-27 2019-05-27 University of pack-years 00:00:00 00:00:00 [facility] Alcohol intake 2019-05-27 2019-05-27 Current drinker Unive rsity of 00:00:00 00:00:00 of alcohol [facility] ([facility] [place] Alcohol Comment 2017-09-15 2017-09-15 ocassional on the Un iversity of 00:00:00 00:00:00 weekends [facility] Smoking Status Start Date Stop Date Source Former smoker 2019-05-27 00:00:00 2019-05-27 00:00:00 Universi ty of [facility] Current some day 2019-01-08 00:00:00 [facility] Edgar ege of smoker Medicine Medications Ordered Filled Start Stop Current Ordering Indication Dosage Frequency Signature Comments Components Source Medication Medication Date Date Medication? Clinician (SIG) Name Name sotaloL 120 Yes [id number] 120mg Take 1 Univers mg tablet 3-22 tablet by ity o f 00:00: mouth 00 every 12 Medical (twelve) Branch hours. digoxin 125 Yes [id number] 125ug Take 1 Univers mcg (0.125 5-06 tablet by ity of mg) tablet 00:00: mouth 00 daily. Medical Branch digoxin 125 Yes [id number] 125ug Take 1 Univers mcg (0.125 5-06 tablet by ity of mg) tablet 00:00: mouth [place] 00 daily. Medical Branch digoxin 125 2020-0 Yes [id number] 125ug Take 1 Univers mcg (0.125 5-06 tablet by ity of mg) tablet 00:00: mouth [place] 00 daily. Medical Branch digoxin 125 2020-0 Yes [id number] 125ug Take 1 Univers mcg (0.125 5-06 tablet by ity of mg) tablet 00:00: mouth [place] 00 daily. [facility] Branch digoxin 125 2020-0 Yes [id number] 125ug Take 1 Univers mcg (0.125 5-06 tablet by ity of mg) tablet 00:00: mouth [place] 00 daily. Medical Branch predniSONE 2020-0 2020- No 5mg Take 5 mg U nivers 5 mg tablet 2-25 02-25 by mouth ity of 15:49: 00:00 daily. [place] 49 :00 [facility] predniSONE 2019-0 2020- No 5mg Take 5 mg U nivers 5 mg tablet 2-27 05-25 by mouth ity of 15:49: 00:00 daily. [place] 49 :00 [facility] Branch buPROPion 0 Yes 150mg Take 150 Uni vers SR 2-25 mg by ity of (WELLBUTRIN 15:49: mouth [place] SR) 150 mg 47 daily. Medical SR tablet Indication Bran ch s: 1tab Qam 2tabs Qpm SERTraline 0 Yes 50mg Take 50 mg U nivers (ZOLOFT) 50 2-25 by mouth ity of mg tablet 15:49: daily. [address] tofacitinib 0 Yes 11mg Take 11 mg Univers (XELJANZ 2-25 by mouth. ity of XR) 11 mg 15:49: [place] Tb 47 Medical Branch buPROPion 0 Yes 150mg Take 150 Uni vers SR 2-25 mg by ity of (WELLBUTRIN 15:49: mouth [place] SR) 150 mg 47 daily. Medical SR tablet Indication Bran ch s: 1tab Qam 2tabs Qpm SERTraline 0 Yes 50mg Take 50 mg U nivers (ZOLOFT) 50 2-25 by mouth ity of mg tablet 15:49: daily. [address] tofacitinib Yes 11mg Take 11 mg Univers (XELJANZ 2-25 by mouth. ity of XR) 11 mg 15:49: [address] buPROPion 2020-0 Yes 150mg Take 150 Uni vers SR 2-25 mg by ity of (WELLBUTRIN 15:49: mouth [place] SR) 150 mg 47 daily. Medical SR tablet Indication Bran ch s: 1tab Qam 2tabs Qpm SERTraline 2020-0 Yes 50mg Take 50 mg U nivers (ZOLOFT) 50 2-25 by mouth ity of mg tablet 15:49: daily. [address] tofacitinib 2020-0 Yes 11mg Take 11 mg Univers (XELJANZ 2-25 by mouth. ity of XR) 11 mg 15:49: [address] buPROPion 0 Yes 150mg Take 150 Uni vers SR 2-25 mg by ity of (WELLBUTRIN 15:49: mouth [place] SR) 150 mg 47 daily. Medical SR tablet Indication Bran ch s: 1tab Qam 2tabs Qpm SERTraline 2020-0 Yes 50mg Take 50 mg U nivers (ZOLOFT) 50 2-25 by mouth ity of mg tablet 15:49: daily. [address] tofacitinib 2019-0 Yes 11mg Take 11 mg Univers (XELJANZ 2-25 by mouth. ity of XR) 11 mg 15:49: [address] buPROPion 2019-0 Yes 150mg Take 150 Uni vers SR 2-25 mg by ity of (WELLBUTRIN 15:49: mouth [place] SR) 150 mg 47 daily. Medical SR tablet Indication Bran ch s: 1tab Qam 2tabs Qpm SERTraline 2020-0 Yes 50mg Take 50 mg U nivers (ZOLOFT) 50 2-25 by mouth ity of mg tablet 15:49: daily. [address] tofacitinib 2020-0 Yes 11mg Take 11 mg Univers (XELJANZ 2-25 by mouth. ity of XR) 11 mg 15:49: [address] buPROPion 2020-0 Yes 150mg Take 150 Uni vers SR 2-25 mg by ity of (WELLBUTRIN 15:49: mouth [place] SR) 150 mg 47 daily. Medical SR tablet Indication Bran ch s: 1tab Qam 2tabs Qpm SERTraline 2020-0 Yes 50mg Take 50 mg U nivers (ZOLOFT) 50 2-25 by mouth ity of mg tablet 15:49: daily. [address] tofacitinib Yes 11mg Take 11 mg Univers (XELJANZ 2-25 by mouth. ity of XR) 11 mg 15:49: [address] buPROPion Yes 150mg Take 150 Uni vers SR 2-25 mg by ity of (WELLBUTRIN 15:49: mouth [place] SR) 150 mg 47 daily. Medical SR tablet Indication Bran ch s: 1tab Qam 2tabs Qpm SERTraline Yes 50mg Take 50 mg U nivers (ZOLOFT) 50 2-25 by mouth ity of mg tablet 15:49: daily. [address] tofacitinib Yes 11mg Take 11 mg Univers (XELJANZ 2-25 by mouth. ity of XR) 11 mg 15:49: [address] buPROPion Yes 150mg Take 150 Uni vers SR 2-25 mg by ity of (WELLBUTRIN 15:49: mouth [place] SR) 150 mg 47 daily. Medical SR tablet Indication Bran ch s: 1tab Qam 2tabs Qpm SERTraline Yes 50mg Take 50 mg U nivers (ZOLOFT) 50 2-25 by mouth ity of mg tablet 15:49: daily. [address] tofacitinib Yes 11mg Take 11 mg Univers (XELJANZ 2-25 by mouth. ity of XR) 11 mg 15:49: [address] buPROPion Yes 150mg Take 150 Uni vers SR 2-25 mg by ity of (WELLBUTRIN 15:49: mouth [place] SR) 150 mg 47 daily. Medical SR tablet Indication Bran ch s: 1tab Qam 2tabs Qpm SERTraline Yes 50mg Take 50 mg U nivers (ZOLOFT) 50 2-25 by mouth ity of mg tablet 15:49: daily. [address] tofacitinib Yes 11mg Take 11 mg Univers (XELJANZ 2-25 by mouth. ity of XR) 11 mg 15:49: [address] Branch abatacept 2020- No 2506 125mg inject 125 Univers [...] Sunday. Branch Indication s: ARTHRITIS digoxin 125 2020-0 Yes [id number] 125ug Take 1 Univers mcg (0.125 2-25 tablet by ity of mg) tablet 00:00: mouth [place] 00 daily. Medical Branch furosemide 2020-0 Yes [id number] 40mg Take 1 Univers 40 mg 2-25 tablet by ity of tablet 00:00: mouth [place] 00 every Medical morning Branch and evening. sotalol 120 2019-0 Yes [id number] 120mg Take 1 Univers mg tablet 2-25 tablet by ity o f 00:00: mouth [place] 00 every 12 Medical (twelve) Branch hours. apixaban 5 2019-0 Yes 1358 5mg Take 1 Unive rs mg tablet 2-25 tablet by ity o f 00:00: mouth 2 [place] 00 (two) Medical times Branch daily. Indication s: atrial fibrillati on KCL 20 mEq 2020-0 Yes [id number] 20meq Take 1 Univers tablet 2-25 tablet by ity of 00:00: mouth [place] 00 daily. Medical Branch digoxin 125 2020-0 Yes [id number] 125ug Take 1 Univers mcg (0.125 2-25 tablet by ity of mg) tablet 00:00: mouth [place] 00 daily. Medical Branch furosemide 2020-0 Yes [id number] 40mg Take 1 Univers 40 mg 2-25 tablet by ity of tablet 00:00: mouth [place] 00 every Medical morning Branch and evening. sotalol 120 2020-0 Yes [id number] 120mg Take 1 Univers mg tablet 2-25 tablet by ity o f 00:00: mouth [place] 00 every 12 Medical (twelve) Branch hours. apixaban 5 2020-0 Yes 1358 5mg Take 1 Unive rs mg tablet 2-25 tablet by ity o f 00:00: mouth 2 [place] 00 (two) Medical times Branch daily. Indication s: atrial fibrillati on KCL 20 mEq 2020-0 Yes [id number] 20meq Take 1 Univers tablet 2-25 tablet by ity of 00:00: mouth [place] 00 daily. Medical Branch digoxin 125 2020-0 Yes [id number] 125ug Take 1 Univers mcg (0.125 2-25 tablet by ity of mg) tablet 00:00: mouth [place] 00 daily. Medical Branch furosemide 2020-0 Yes [id number] 40mg Take 1 Univers 40 mg 2-25 tablet by ity of tablet 00:00: mouth [place] 00 every Medical morning Branch and evening. sotalol 120 2020-0 Yes [id number] 120mg Take 1 Univers mg tablet 2-25 tablet by ity o f 00:00: mouth [place] 00 every 12 Medical (twelve) Branch hours. apixaban 5 2020-0 Yes 1358 5mg Take 1 Unive rs mg tablet 2-25 tablet by ity o f 00:00: mouth 2 [place] 00 (two) Medical times Branch daily. Indication s: atrial fibrillati on KCL 20 mEq 2020-0 Yes [id number] 20meq Take 1 Univers tablet 2-25 tablet by ity of 00:00: mouth [place] 00 daily. Medical Branch digoxin 125 2020-0 Yes [id number] 125ug Take 1 Univers mcg (0.125 2-25 tablet by ity of mg) tablet 00:00: mouth [place] 00 daily. Medical Branch furosemide 2020-0 Yes [id number] 40mg Take 1 Univers 40 mg 2-25 tablet by ity of tablet 00:00: mouth [place] 00 every Medical morning Branch and evening. sotalol 120 2020-0 Yes [id number] 120mg Take 1 Univers mg tablet 2-25 tablet by ity o f 00:00: mouth [place] 00 every 12 Medical (twelve) Branch hours. apixaban 5 2020-0 Yes 1358 5mg Take 1 Unive rs mg tablet 2-25 tablet by ity o f 00:00: mouth 2 [place] 00 (two) Medical times Branch daily. Indication s: atrial fibrillati on KCL 20 mEq 2020-0 Yes [id number] 20meq Take 1 Univers tablet 2-25 tablet by ity of 00:00: mouth [place] 00 daily. Medical Branch furosemide 2020-0 Yes [id number] 40mg Take 1 Univers 40 mg 2-25 tablet by ity of tablet 00:00: mouth [place] 00 every Medical morning Branch and evening. sotalol 120 2020-0 Yes [id number] 120mg Take 1 Univers mg tablet 2-25 tablet by ity o f 00:00: mouth [place] 00 every 12 Medical (twelve) Branch hours. apixaban 5 2020-0 Yes 1358 5mg Take 1 Unive rs mg tablet 2-25 tablet by ity o f 00:00: mouth 2 [place] 00 (two) Medical times Branch daily. Indication s: atrial fibrillati on KCL 20 mEq 2020-0 Yes [id number] 20meq Take 1 Univers tablet 2-25 tablet by ity of 00:00: mouth [place] 00 daily. Medical Branch furosemide 2020-0 Yes [id number] 40mg Take 1 Univers 40 mg 2-25 tablet by ity of tablet 00:00: mouth [place] 00 every Medical morning Branch and evening. sotalol 120 2020-0 Yes [id number] 120mg Take 1 Univers mg tablet 2-25 tablet by ity o f 00:00: mouth [place] 00 every 12 Medical (twelve) Branch hours. apixaban 5 2020-0 Yes 1358 5mg Take 1 Unive rs mg tablet 2-25 tablet by ity o f 00:00: mouth 2 [place] 00 (two) Medical times Branch daily. Indication s: atrial fibrillati on KCL 20 mEq 2020-0 Yes [id number] 20meq Take 1 Univers tablet 2-25 tablet by ity of 00:00: mouth [place] 00 daily. Medical Branch furosemide 2020-0 Yes [id number] 40mg Take 1 Univers 40 mg 2-25 tablet by ity of tablet 00:00: mouth [place] 00 every Medical morning Branch and evening. sotalol 120 2020-0 Yes [id number] 120mg Take 1 Univers mg tablet 2-25 tablet by ity o f 00:00: mouth [place] 00 every 12 Medical (twelve) Branch hours. apixaban 5 2020-0 Yes 1358 5mg Take 1 Unive rs mg tablet 2-25 tablet by ity o f 00:00: mouth 2 [place] 00 (two) Medical times Branch daily. Indication s: atrial fibrillati on KCL 20 mEq 2020-0 Yes [id number] 20meq Take 1 Univers tablet 2-25 tablet by ity of 00:00: mouth [place] 00 daily. Medical Branch furosemide 2020-0 Yes [id number] 40mg Take 1 Univers 40 mg 2-25 tablet by ity of tablet 00:00: mouth [place] 00 every Medical morning Branch and evening. sotalol 120 2020-0 Yes [id number] 120mg Take 1 Univers mg tablet 2-25 tablet by ity o f 00:00: mouth [place] 00 every 12 Medical (twelve) Branch hours. apixaban 5 2020-0 Yes 1358 5mg Take 1 Unive rs mg tablet 2-25 tablet by ity o f 00:00: mouth 2 [place] 00 (two) Medical times Branch daily. Indication s: atrial fibrillati on KCL 20 mEq 2020-0 Yes [id number] 20meq Take 1 Univers tablet 2-25 tablet by ity of 00:00: mouth [place] 00 daily. Medical Branch furosemide 2020-0 Yes [id number] 40mg Take 1 Univers 40 mg 2-25 tablet by ity of tablet 00:00: mouth [place] 00 every Medical morning Branch and evening. apixaban 5 2020-0 Yes 1358 5mg Take 1 Unive rs mg tablet 2-25 tablet by ity o f 00:00: mouth 2 [place] 00 (two) Medical times Branch daily. Indication s: atrial fibrillati on KCL 20 mEq 2020-0 Yes [id number] 20meq Take 1 Univers tablet 2-25 tablet by ity of 00:00: mouth [place] 00 daily. Medical Branch sotalol 120 2019-0 2020- No [id number] 120mg Take 1 Univers mg tablet 2-25 03-22 tablet by ity of 00:00: 00:00 mouth [place] 00 :00 every 12 Medical (twelve) Branch hours. digoxin 125 2019-0 2020- No [id number] 125ug Take 1 Univers mcg (0.125 2-25 05-06 tablet by ity of mg) tablet 00:00: 00:00 mouth [place] 00 :00 daily. Medical Branch furosemide 2020-0 Yes [id number] 40mg Take 1 Univers 40 mg 2-15 tablet by ity of tablet 00:00: mouth [place] 00 every Medical morning Branch and evening. Take 40 mg in AM and 20 mg in PM digoxin 125 2020-0 Yes 125ug Take 1 Uni vers mcg (0.125 2-15 tablet by ity of mg) tablet 00:00: mouth [place] 00 daily. Medical Branch sotalol 120 2019-0 Yes [id number] 120mg Take 1 Univers mg tablet 2-15 tablet by ity o f 00:00: mouth [place] 00 every 12 Medical (twelve) Branch hours. apixaban 5 2019-0 Yes 1358 5mg Take 1 Unive rs mg tablet 2-15 tablet by ity o f 00:00: mouth 2 [place] 00 (two) Medical times Branch daily. Indication s: atrial fibrillati on furosemide 2019- 2020- No [id number] 40mg Take 1 Univers 40 mg 2-15 [...] Medical Branch sotalol 120 2019- 2020- No [id number] 120mg Take 1 Univers mg tablet 2-15 02-25 tablet by ity of 00:00: 00:00 mouth [place] 00 :00 every 12 Medical (twelve) Branch hours. apixaban 5 2019- No 1358 5mg Take 1 Univ ers mg tablet 2-15 02-25 tablet by ity of 00:00: 00:00 mouth 2 [place] 00 :00 (two) Medical times Branch daily. Indication s: atrial fibrillati on furosemide 2019-2019- No [id number] 40mg Take 1 Univers 40 mg 2-15 [...] daily. Medical Branch sotalol 120 2020- No [id number] 120mg Take 1 Univers mg tablet 2-15 02-25 tablet by ity of 00:00: 00:00 mouth [place] 00 :00 every 12 Medical (twelve) Branch hours. apixaban 5 2019-2019- No 1358 5mg Take 1 Univ ers mg tablet 2-15 02-25 tablet by ity of 00:00: 00:00 mouth 2 [place] 00 :00 (two) Medical times Branch daily. Indication s: atrial fibrillati on furosemide 2020-0 Yes [id number] 40mg Take 1 Univers 40 mg 2-13 [...] atrial fibrillati on furosemide 2020-0 2020- No [id number] 40mg Take 1 Univers 40 mg 2-13 [...] atrial fibrillati on furosemide 2020-0 2020- No [id number] 40mg Take 1 Univers 40 mg 2-13 [...] atrial fibrillati on sotalol 120 2018-04 Yes [id number] 120mg Take 1 Univers mg tablet 2-11 tablet by ity o f 00:00: mouth [place] 00 every 12 Medical (twelve) Branch hours. sotalol 120 2018-04 Yes [id number] 120mg Take 1 Univers mg tablet 2-11 tablet by ity o f 00:00: mouth [place] 00 every 12 Medical (twelve) Branch hours. sotalol 120 2018-04- No [id number] 120mg Take 1 Univers mg tablet 2-11 [...] Tofacitinib 2018-04 Yes 11mg Take 11 mg [facility] Citrate 11 0-09 by mouth. Edgar ege [...] DAILY e buPROPion 2018-04 Yes TAKE 1 [facility] (WELLBUTRIN 0-07 TABLET BY [facility] melania ) 150 MG XL 00:00: MOUTH ONCE of tablet 00 DAILY Medicin e tramadol 2018-04 Yes TAKE 1 [facility] (ULTRAM) 50 0-02 TABLET BY [facility] MG tablet 00:00: MOUTH of 00 EVERY 8 Medicin HOURS e NEEDED MAY MAKE DROWSY PENNSAID 2 Yes APPLY 2 [facility] % SOLN 12-23 PUMP BY Impact 00:00: TOPICAL of [address] Medicin TIMES e EVERY DAY TO THE AFFECTED JOINT digoxin Yes [facility] (LANOXIN) 12-13 [employer] 125 MCG 00:00: of tablet 00 Medicin e digoxin 125 Yes 125ug Take 1 Uni vers mcg tablet -13 tablet by ity of 00:00: mouth [place] [...] 125ug Take 1 Un ean mcg tablet 913 -13 tablet by ity of 00:00: 00:00 mouth [place] 00 :00 daily. Medical Branch furosemide Yes 40mg Take 40 mg [facility] (LASIX) 40 9-05 by mouth. Edgar ege MG tablet 00:00: of 00 Medicin e furosemide Yes [id number] 40mg Take 1 Univers 40 mg 9-05 tablet by ity of tablet 00:00: mouth [place] 00 every Medical morning Branch and evening. Take 40 mg in AM and 20 mg in PM furosemide Yes [id number] 40mg Take 1 Univers 40 mg 9-05 tablet by ity of tablet 00:00: mouth [place] 00 every Medical morning Branch and evening. Take 40 mg in AM and 20 mg in PM furosemide Yes [id number] 40mg Take 1 Univers 40 mg 9-05 tablet by ity of tablet 00:00: mouth [place] 00 every Medical morning Branch and evening. Take 40 mg in AM and 20 mg in PM furosemide Yes [id number] 40mg Take 1 Univers 40 mg 9-05 tablet by ity of tablet 00:00: mouth [place] 00 every Medical morning Branch and evening. Take 40 mg in AM and 20 mg in PM furosemide Yes [id number] 40mg Take 1 Univers 40 mg 9-05 tablet by ity of tablet 00:00: mouth [place] 00 every Medical morning Branch and evening. Take 40 mg in AM and 20 mg in PM furosemide Yes [id number] 40mg Take 1 Univers 40 mg 9-05 tablet by ity of tablet 00:00: mouth [place] 00 every Medical morning Branch and evening. Take 40 mg in AM and 20 mg in PM furosemide 2020- No [id number] 40mg Take 1 Univers 40 mg 9-05 02-13 tablet by ity of tablet 00:00: 00:00 mouth [place] 00 :00 every Medical morning Branch and evening. Take 40 mg in AM and 20 mg in PM sotalol Yes TAKE 1 [facility] (BETAPACE) 9-03 TABLET BY Edgar ege 120 MG 00:00: MOUTH of tablet 00 EVERY 12 Medicin HOURS e furosemide Yes [id number] 40mg Take 1 Univers 40 mg 8-16 tablet by ity of tablet 00:00: mouth [place] 00 every Medical morning Branch and evening. Take 40 mg in AM and 20 mg in PM furosemide Yes [id number] 40mg Take 1 Univers 40 mg 8-16 tablet by ity of tablet 00:00: mouth [place] 00 every Medical morning Branch and evening. Take 40 mg in AM and 20 mg in PM furosemide 2019- No [id number] 40mg Take 1 Univers 40 mg 8-16 [...] daily. Medical Branch furosemide 2018- 2019- No [id number] Take 40 mg Univers 40 mg 10-14 [...] mouth ity of mg tablet 13:13: daily. [address] Branch abatacept 2019-0 Yes 2506 125mg inject 125 U nivers (ORENCIA) 4-15 mg under ity of 125 mg/mL 13:13: the [place] injection 02 every Medical Sunday. Branch Indication s: ARTHRITIS meloxicam 2019-0 Yes 15mg Take 15 mg Un ean 15 mg 4-15 by mouth ity of tablet 13:13: daily. [place] [address] Medical Branch predniSONE 2019-0 Yes 5mg Take 5 mg Un ean 5 mg tablet 4-15 by mouth ity of 13:13: daily. [address] Branch tofacitinib 2018-0 Yes 11mg Take 11 mg Univers (XELJANZ 4-15 by mouth. ity of XR) 11 mg 13:13: [address] buPROPion Yes 150mg Take 150 Uni vers SR 4-15 mg by ity of (WELLBUTRIN 13:13: mouth [place] SR) 150 mg 02 daily. Medical SR tablet Indication Bran ch s: 1tab Qam 2tabs Qpm SERTraline 2019 Yes 50mg Take 50 mg U nivers (ZOLOFT) 50 4-15 by mouth ity of mg tablet 13:13: daily. [address] abatacept Yes 2506 125mg inject 125 U nivers (ORENCIA) 4-15 mg under ity of 125 mg/mL 13:13: the [place] injection 02 every Sunday. Branch Indication s: ARTHRITIS meloxicam 2019 Yes 15mg Take 15 mg Un ean 15 mg 4-15 by mouth ity of tablet 13:13: daily. [address] predniSONE 0 Yes 5mg Take 5 mg Un ean 5 mg tablet 4-15 by mouth ity of 13:13: daily. [address] tofacitinib Yes 11mg Take 11 mg Univers (XELJANZ 4-15 by mouth. ity of XR) 11 mg 13:13: [address] buPROPion Yes 150mg Take 150 Uni vers SR 4-15 mg by ity of (WELLBUTRIN 13:13: mouth [place] SR) 150 mg 02 daily. Medical SR tablet Indication Bran ch s: 1tab Qam 2tabs Qpm SERTraline Yes 50mg Take 50 mg U nivers (ZOLOFT) 50 4-15 by mouth ity of mg tablet 13:13: daily. [address] abatacept Yes 2506 125mg inject 125 U nivers (ORENCIA) 4-15 mg under ity of 125 mg/mL 13:13: the [place] injection 02 every Sunday. Branch Indication s: ARTHRITIS meloxicam 2019 Yes 15mg Take 15 mg Un ean 15 mg 4-15 by mouth ity of tablet 13:13: daily. [address] predniSONE 0 Yes 5mg Take 5 mg Un ean 5 mg tablet 4-15 by mouth ity of 13:13: daily. [address] tofacitinib Yes 11mg Take 11 mg Univers (XELJANZ 4-15 by mouth. ity of XR) 11 mg 13:13: [address] buPROPion Yes 150mg Take 150 Uni vers SR 4-15 mg by ity of (WELLBUTRIN 13:13: mouth [place] SR) 150 mg 02 daily. Medical SR tablet Indication Bran ch s: 1tab Qam 2tabs Qpm SERTraline Yes 50mg Take 50 mg U nivers (ZOLOFT) 50 4-15 by mouth ity of mg tablet 13:13: daily. [address] abatacept Yes 2506 125mg inject 125 U nivers (ORENCIA) 4-15 mg under ity of 125 mg/mL 13:13: the [place] injection 02 every Sunday. Branch Indication s: ARTHRITIS meloxicam Yes 15mg Take 15 mg Un ean 15 mg 4-15 by mouth ity of tablet 13:13: daily. [address] predniSONE Yes 5mg Take 5 mg Un ean 5 mg tablet 4-15 by mouth ity of 13:13: daily. [address] tofacitinib Yes 11mg Take 11 mg Univers (XELJANZ 4-15 by mouth. ity of XR) 11 mg 13:13: [address] buPROPion Yes 150mg Take 150 Uni vers SR 4-15 mg by ity of (WELLBUTRIN 13:13: mouth [place] SR) 150 mg 02 daily. Medical SR tablet Indication Bran ch s: 1tab Qam 2tabs Qpm SERTraline Yes 50mg Take 50 mg U nivers (ZOLOFT) 50 4-15 by mouth ity of mg tablet 13:13: daily. [address] abatacept Yes 2506 125mg inject 125 U nivers (ORENCIA) 4-15 mg under ity of 125 mg/mL 13:13: the [place] injection 02 every Sunday. Branch Indication s: ARTHRITIS meloxicam 2019 Yes 15mg Take 15 mg Un ean 15 mg 4-15 by mouth ity of tablet 13:13: daily. [address] predniSONE 2019-0 Yes 5mg Take 5 mg Un ean 5 mg tablet 4-15 by mouth ity of 13:13: daily. [address] tofacitinib [id number] Yes 11mg Take 11 mg Univers (XELJANZ 4-15 by mouth. ity of XR) 11 mg 13:13: [address] buPROPion 0 Yes 150mg Take 150 Uni vers SR 4-15 mg by ity of (WELLBUTRIN 13:13: mouth [place] SR) 150 mg 02 daily. Medical SR tablet Indication Bran ch s: 1tab Qam 2tabs Qpm SERTraline 2019 Yes 50mg Take 50 mg U nivers (ZOLOFT) 50 4-15 by mouth ity of mg tablet 13:13: daily. [address] abatacept Yes 2506 125mg inject 125 U nivers (ORENCIA) 4-15 mg under ity of 125 mg/mL 13:13: the [place] injection 02 every Sunday. Branch Indication s: ARTHRITIS meloxicam 20190 Yes 15mg Take 15 mg Un ean 15 mg 4-15 by mouth ity of tablet 13:13: daily. [address] predniSONE 2019-0 Yes 5mg Take 5 mg Un ean 5 mg tablet 4-15 by mouth ity of 13:13: daily. [address] tofacitinib 0 Yes 11mg Take 11 mg Univers (XELJANZ 4-15 by mouth. ity of XR) 11 mg 13:13: [address] buPROPion 0 Yes 150mg Take 150 Uni vers SR 4-15 mg by ity of (WELLBUTRIN 13:13: mouth [place] SR) 150 mg 02 daily. Medical SR tablet Indication Bran ch s: 1tab Qam 2tabs Qpm SERTraline 20190 Yes 50mg Take 50 mg U nivers (ZOLOFT) 50 4-15 by mouth ity of mg tablet 13:13: daily. [address] abatacept 20190 Yes 2506 125mg inject 125 U nivers (ORENCIA) 4-15 mg under ity of 125 mg/mL 13:13: [place] injection 02 every Sunday. Branch Indication s: ARTHRITIS meloxicam 2019 Yes 15mg Take 15 mg Un ean 15 mg 4-15 by mouth ity of tablet 13:13: daily. [address] predniSONE 2019 Yes 5mg Take 5 mg Un ean 5 mg tablet 4-15 by mouth ity of 13:13: daily. [address] tofacitinib Yes 11mg Take 11 mg Univers (XELJANZ 4-15 by mouth. ity of XR) 11 mg 13:13: [address] buPROPion Yes 150mg Take 150 Uni vers SR 4-15 mg by ity of (WELLBUTRIN 13:13: mouth [place] SR) 150 mg 02 daily. Medical SR tablet Indication Bran ch s: 1tab Qam 2tabs Qpm SERTraline Yes 50mg Take 50 mg U nivers (ZOLOFT) 50 4-15 by mouth ity of mg tablet 13:13: daily. [address] abatacept Yes 2506 125mg inject 125 U nivers (ORENCIA) 4-15 mg under ity of 125 mg/mL 13:13: [place] injection 02 every Sunday. Branch Indication s: ARTHRITIS meloxicam Yes 15mg Take 15 mg Un ean 15 mg 4-15 by mouth ity of tablet 13:13: daily. [address] predniSONE Yes 5mg Take 5 mg Un ean 5 mg tablet 4-15 by mouth ity of 13:13: daily. [address] tofacitinib Yes 11mg Take 11 mg Univers (XELJANZ 4-15 by mouth. ity of XR) 11 mg 13:13: [address] meloxicam Yes 15mg Take 15 mg Un ean 15 mg 4-15 by mouth ity of tablet 13:13: daily. [address] buPROPion Yes 150mg Take 150 Uni vers SR 4-15 mg by ity of (WELLBUTRIN 13:13: mouth [place] SR) 150 mg 02 daily. Medical SR tablet Indication Bran ch s: 1tab Qam 2tabs Qpm SERTraline Yes 50mg Take 50 mg U nivers (ZOLOFT) 50 4-15 by mouth ity of mg tablet 13:13: daily. [address] abatacept Yes 2506 125mg inject 125 U nivers (ORENCIA) 4-15 mg under ity of 125 mg/mL 13:13: [place] injection 02 every Sunday. Branch Indication s: ARTHRITIS meloxicam Yes 15mg Take 15 mg Un ean 15 mg 4-15 by mouth ity of tablet 13:13: daily. [address] meloxicam Yes 15mg Take 15 mg Un ean 15 mg 4-15 by mouth ity of tablet 13:13: daily. [address] predniSONE Yes 5mg Take 5 mg Un ean 5 mg tablet 4-15 by mouth ity of 13:13: daily. [address] meloxicam Yes 15mg Take 15 mg Un ean 15 mg 4-15 by mouth ity of tablet 13:13: daily. [address] tofacitinib Yes 11mg Take 11 mg Univers (XELJANZ 4-15 by mouth. ity of XR) 11 mg 13:13: [place] Tb[address] [place] [address] meloxicam Yes 15mg Take 15 mg Un ean 15 mg 4-15 by mouth ity of tablet 13:13: daily. [address] meloxicam Yes 15mg Take 15 mg Un ean 15 mg 4-15 by mouth ity of tablet 13:13: daily. [address] meloxicam Yes 15mg Take 15 mg Un ean 15 mg 4-15 by mouth ity of tablet 13:13: daily. [address] meloxicam Yes 15mg Take 15 mg Un ean 15 mg 4-15 by mouth ity of tablet 13:13: daily. [address] meloxicam Yes 15mg Take 15 mg Un ean 15 mg 4-15 by mouth ity of tablet 13:13: daily. [address] meloxicam 0 Yes 15mg Take 15 mg Un ean 15 mg 4-15 by mouth ity of tablet 13:13: daily. [address] buPROPion Yes 150mg Take 150 Uni vers SR 4-15 mg by ity of (WELLBUTRIN 13:13: mouth [place] SR) 150 mg 02 daily. Medical SR tablet Indication Bran ch s: 1tab Qam 2tabs Qpm SERTraline 2019 Yes 50mg Take 50 mg U nivers (ZOLOFT) 50 4-15 by mouth ity of mg tablet 13:13: daily. [address] abatacept 2019 Yes 2506 125mg inject 125 U nivers (ORENCIA) 4-15 mg under ity of 125 mg/mL 13:13: [place] injection 02 every Sunday. Branch Indication s: ARTHRITIS meloxicam 2019 Yes 15mg Take 15 mg Un ean 15 mg 4-15 by mouth ity of tablet 13:13: daily. [address] predniSONE Yes 5mg Take 5 mg Un ean 5 mg tablet 4-15 by mouth ity of 13:13: daily. [address] tofacitinib Yes 11mg Take 11 mg Univers (XELJANZ 4-15 by mouth. ity of XR) 11 mg 13:13: [address] buPROPion Yes 150mg Take 150 Uni vers SR 4-15 mg by ity of (WELLBUTRIN 13:13: mouth [place] SR) 150 mg 02 daily. Medical SR tablet Indication Bran ch s: 1tab Qam 2tabs Qpm SERTraline Yes 50mg Take 50 mg U nivers (ZOLOFT) 50 4-15 by mouth ity of mg tablet 13:13: daily. [address] abatacept Yes 2506 125mg inject 125 U nivers (ORENCIA) 4-15 mg under ity of 125 mg/mL 13:13: [place] injection 02 every Sunday. Branch Indication s: ARTHRITIS meloxicam 2019 Yes 15mg Take 15 mg Un ean 15 mg 4-15 by mouth ity of tablet 13:13: daily. [address] predniSONE 20190 Yes 5mg Take 5 mg Un ean 5 mg tablet 4-15 by mouth ity of 13:13: daily. [address] tofacitinib Yes 11mg Take 11 mg Univers (XELJANZ 4-15 by mouth. ity of XR) 11 mg 13:13: [address] buPROPion Yes 150mg Take 150 Uni vers SR 4-15 mg by ity of (WELLBUTRIN 13:13: mouth [place] SR) 150 mg 02 daily. Medical SR tablet Indication Bran ch s: 1tab Qam 2tabs Qpm SERTraline Yes 50mg Take 50 mg U nivers (ZOLOFT) 50 4-15 by mouth ity of mg tablet 13:13: daily. [address] Branch abatacept Yes 2506 125mg inject 125 U nivers (ORENCIA) 4-15 mg under ity of 125 mg/mL 13:13: [place] injection 02 every Medical Sunday. Branch Indication s: ARTHRITIS meloxicam Yes 15mg Take 15 mg Un ean 15 mg 4-15 by mouth ity of tablet 13:13: daily. [address] Branch predniSONE Yes 5mg Take 5 mg Un ean 5 mg tablet 4-15 by mouth ity of 13:13: daily. [address] Branch tofacitinib Yes 11mg Take 11 mg Univers (XELJANZ 4-15 by mouth. ity of XR) 11 mg 13:13: [place] Tb[address] [place] [address] Branch sucralfate 2018-0 Yes 1g Take 1 [...] Bayl or chloride SA 8-02 mEq by Colleg [facility] (K-DUR, 00:00: mouth. of KLOR-CON 00 [...] by ity of tablet 00:00: mouth at [place] [address] bedtime. Medical Branch traZODONE 2018-0 Yes 50mg Take 1 Univer s 50 mg 6-19 tablet by ity of tablet 00:00: mouth at [place] [address] bedtime. Medical Branch traZODONE 2018-0 Yes 50mg Take 1 Univer s 50 mg 6-19 tablet by ity of tablet 00:00: mouth at [place] [address] bedtime. Medical Branch traZODONE 2018-0 Yes 50mg Take 1 Univer s 50 mg 6-19 tablet by ity of tablet 00:00: mouth at [place] [address] bedtime. Medical Branch traZODONE 2018-0 Yes 50mg Take 1 Univer s 50 mg 6-19 tablet by ity of tablet 00:00: mouth at [place] [address] bedtime. Medical Branch traZODONE 2018-0 Yes 50mg Take 1 Univer s 50 mg 6-19 tablet by ity of tablet 00:00: mouth at [place] [address] bedtime. Medical Branch traZODONE 2018-0 Yes 50mg Take 1 Univer s 50 mg 6-19 tablet by ity of tablet 00:00: mouth at [place] [address] bedtime. Medical Branch traZODONE 2018-0 Yes 50mg Take 1 Univer s 50 mg 6-19 tablet by ity of tablet 00:00: mouth at [place] [address] bedtime. Medical Branch traZODONE 2018-0 Yes 50mg Take 1 Univer s 50 mg 6-19 tablet by ity of tablet 00:00: mouth at [place] [address] bedtime. Medical Branch traZODONE 2018-0 Yes 50mg Take 1 Univer s 50 mg 6-19 tablet by ity of tablet 00:00: mouth at [place] [address] bedtime. Medical Branch traZODONE 2018-0 Yes 50mg Take 1 Univer s 50 mg 6-19 tablet by ity of tablet 00:00: mouth at [place] [address] bedtime. Medical Branch traZODONE 2018-0 2020- No 50mg Take 1 Unive rs 50 mg 6-19 02-25 tablet by ity of tablet 00:00: 00:00 mouth at [place] 00 :00 bedtime. Medical Branch traZODONE 2018-0 2020- No 50mg Take 1 Unive rs 50 mg 6-19 02-25 tablet by ity of tablet 00:00: 00:00 mouth at [place] 00 :00 bedtime. Medical Branch METHOTREXAT Yes [id number] Three tabs Univers E SODIUM 7-31 PO Once a ity of 2.5 MG ORAL 00:00: week [place] TAB 00 Medical Branch FOLIC ACID Yes [id number] One tab PO Univers 1 MG ORAL 7-31 Daily ity of TAB 00:00: [place] 00 Medical Branch METHOTREXAT Yes [id number] Three tabs Univers E SODIUM 7-31 PO Once a ity of 2.5 MG ORAL 00:00: week [place] TAB 00 Medical Branch FOLIC ACID Yes [id number] One tab PO Univers 1 MG ORAL 7-31 Daily ity of TAB 00:00: [place] 00 Medical Branch METHOTREXAT Yes [id number] Three tabs Univers E SODIUM 7-31 PO Once a ity of 2.5 MG ORAL 00:00: week [place] TAB 00 Medical Branch FOLIC ACID Yes [id number] One tab PO Univers 1 MG ORAL 7-31 Daily ity of TAB 00:00: [place] 00 Medical Branch METHOTREXAT Yes [id number] Three tabs Univers E SODIUM 7-31 PO Once a ity of 2.5 MG ORAL 00:00: week [place] TAB 00 Medical Branch FOLIC ACID Yes [id number] One tab PO Univers 1 MG ORAL 7-31 Daily ity of TAB 00:00: [place] 00 Medical Branch METHOTREXAT Yes [id number] Three tabs Univers E SODIUM 7-31 PO Once a ity of 2.5 MG ORAL 00:00: week [place] TAB 00 Medical Branch FOLIC ACID Yes [id number] One tab PO Univers 1 MG ORAL 7-31 Daily ity of TAB 00:00: [place] 00 Medical Branch METHOTREXAT Yes [id number] Three tabs Univers E SODIUM 7-31 PO Once a ity of 2.5 MG ORAL 00:00: week [place] TAB 00 Medical Branch FOLIC ACID Yes [id number] One tab PO Univers 1 MG ORAL 7-31 Daily ity of TAB 00:00: [place] 00 Medical Branch METHOTREXAT Yes [id number] Three tabs Univers E SODIUM 7-31 PO Once a ity of 2.5 MG ORAL 00:00: week [place] TAB 00 Medical Branch FOLIC ACID 20080 Yes [id number] One tab PO Univers 1 MG ORAL 7-31 Daily ity of TAB 00:00: [place] 00 Medical Branch METHOTREXAT 0 Yes [id number] Three tabs Univers E SODIUM 7-31 PO Once a ity of 2.5 MG ORAL 00:00: week [place] TAB 00 Medical Branch FOLIC ACID 2007-0 Yes [id number] One tab PO Univers 1 MG ORAL 7-31 Daily ity of TAB 00:00: [place] 00 Medical Branch METHOTREXAT 0 Yes [id number] Three tabs Univers E SODIUM 7-31 PO Once a ity of 2.5 MG ORAL 00:00: week [place] TAB 00 Medical Branch FOLIC ACID 2007-0 Yes [id number] One tab PO Univers 1 MG ORAL 7-31 Daily ity of TAB 00:00: [place] 00 Medical Branch METHOTREXAT 0 Yes [id number] Three tabs Univers E SODIUM 7-31 PO Once a ity of 2.5 MG ORAL 00:00: week [place] TAB 00 Medical Branch FOLIC ACID 0 Yes [id number] One tab PO Univers 1 MG ORAL 7-31 Daily ity of TAB 00:00: [place] 00 Medical Branch METHOTREXAT 0 Yes [id number] Three tabs Univers E SODIUM 7-31 PO Once a ity of 2.5 MG ORAL 00:00: week [place] TAB 00 Medical Branch FOLIC ACID 2007-0 Yes [id number] One tab PO Univers 1 MG ORAL 7-31 Daily ity of TAB 00:00: [place] 00 Medical Branch METHOTREXAT 20080 Yes [id number] Three tabs Univers E SODIUM 7-31 PO Once a ity of 2.5 MG ORAL 00:00: week [place] TAB 00 Medical Branch FOLIC ACID 2007-0 Yes [id number] One tab PO Univers 1 MG ORAL 7-31 Daily ity of TAB 00:00: [place] 00 Medical Branch METHOTREXAT 2007-0 2020- No [id number] Three tabs Univers E SODIUM 7-31 02-25 PO Once a ity o f 2.5 MG ORAL 00:00: 00:00 week [place] TAB 00 :00 Medical Branch FOLIC ACID 2007-0 2020- No [id number] One tab PO Univers 1 MG ORAL 7-31 02-25 Daily ity of TAB 00:00: 00:00 [place] 00 :00 Medical Branch METHOTREXAT 2020- No [id number] Three tabs Univers E SODIUM 10-30 PO Once a ity o f 2.5 MG ORAL 00:00: 00:00 week [place] TAB 00 :00 Medical Branch FOLIC ACID 2020- No [id number] One tab PO Univers 1 MG ORAL 10-30 Daily ity of TAB 00:00: 00:00 [place] 00 :00 Medical Branch nitroglycer Yes Place Trever r in 08-07 under the Impact (NITROSTAT) 00:00: tongue. of 0.4 mg 00 [...] PRN ity o f SL SUBL 00:00: [place] [facility] Branch NITROGLYCER 0 Yes 1 Tab SL Un ean IN 0.4 MG 5-08 Q5MIN PRN ity o f SL SUBL 00:00: Medical Branch NITROGLYCER 0 Yes 1 Tab SL Un ean IN 0.4 MG 5-08 Q5MIN PRN ity o f SL SUBL 00:00: [place] [facility] NITROGLYCER Yes 1 Tab SL Un ean IN 0.4 MG 5-08 Q5MIN PRN ity o f SL SUBL 00:00: [place] [facility] NITROGLYCER 0 Yes 1 Tab SL Un ean IN 0.4 MG 5-08 Q5MIN PRN ity o f SL SUBL 00:00: Medical Branch NITROGLYCER 0 Yes 1 Tab SL Un ean IN 0.4 MG 5-08 Q5MIN PRN ity o f SL SUBL 00:00: [place] [facility] NITROGLYCER 0 Yes 1 Tab SL Un ean IN 0.4 MG 5-08 Q5MIN PRN ity o f SL SUBL 00:00: [place] [facility] Branch NITROGLYCER 0 Yes 1 Tab SL Un ean IN 0.4 MG 5-08 Q5MIN PRN ity o f SL SUBL 00:00: Medical Branch NITROGLYCER 0 Yes 1 Tab SL Un ean IN 0.4 MG 5-08 Q5MIN PRN ity o f SL SUBL 00:00: [place] [facility] NITROGLYCER Yes 1 Tab SL Un ean IN 0.4 MG 5-08 Q5MIN PRN ity o f SL SUBL 00:00: Medical Branch NITROGLYCER 0 Yes 1 Tab SL Un ean IN 0.4 MG 5-08 Q5MIN PRN ity o f SL SUBL 00:00: [place] [facility] Vital Signs Vital Name Observation Time Observation Value Comments Source WEIGHT 2020-03-03 11:02:00 91.491 kg Systolic blood 2019-05-27 15:46:00 133 mm[Hg] Univer sity of pressure [place] [facility] Diastolic blood 2019-05-27 15:46:00 69 mm[Hg] Unive rsity of pressure [facility] Branch Heart rate 2019-05-27 15:46:00 67 /min Universi ty of [place] [facility] Respiratory rate 2019-05-27 15:46:00 19 /min [facility] Body height 2019-05-27 15:46:00 180.3 cm Universi ty of [place] [facility] [place] Body weight 2019-05-27 15:46:00 91.853 kg Universi ty of [place] [facility] BMI 2019-05-27 15:46:00 28.24 kg/m2 Universi ty of [facility] Oxygen saturation in 2019-05-27 15:46:00 97 /min University of Arterial blood by [facility] Pulse oximetry Branch Systolic blood 2019-05-27 15:46:00 133 mm[Hg] Univer sity of pressure [facility] Diastolic blood 2019-05-27 15:46:00 69 mm[Hg] Unive rsity of pressure [facility] Heart rate 2019-05-27 15:46:00 67 /min Universi ty of [place] [facility] Respiratory rate 2019-05-27 15:46:00 19 /min [facility] height 2019-05-27 15:46:00 180.3 cm Universi ty of [place] [facility] [place] Body weight 2019-05-27 15:46:00 91.853 kg Universi ty of [place] [facility] BMI 2019-05-27 15:46:00 28.24 kg/m2 Universi ty of [place] [facility] Oxygen saturation in 2019-05-27 15:46:00 97 /min University of Arterial blood by [facility] Pulse oximetry Branch Procedures Procedure Date / Time Performing Clinician Source Performed MEDICATION CORRESPONDENCE 2020-05-20 06:01:00 Doctor Luis, [facility] Name Medical Branch AUTHORIZATION FOR RELEASE 2019-12-25 05:01:00 Doctor Unassigned, [facility] [place] [facility] AUTHORIZATION FOR RELEASE 2019-06-26 05:01:00 Doctor Carlissigned, [facility] [place] [facility] [place] SCANNED LAB RESULTS 2018-12-04 05:01:00 Doctor Genevieve Smith rsity of [place] [facility] Plan of Care Planned Activity Planned Date Details Comments Source Future Scheduled RI CORNEAL SMEAR Ordered: [facility] of Test [code = 06447] 01/08/2019 Medicine Future Scheduled COLON CANCER [facility] of Test SCREENING: Medicine COLONOSCOPY [code = COLON CANCER SCREENING: COLONOSCOPY] Future Scheduled MAMMOGRAM ANNUAL [facility] of Test [code = MAMMOGRAM Medicine ANNUAL] Future Scheduled TETANUS SHOT (ADULT) [facility] Test [code = TETANUS SHOT Medicin e (ADULT)] Future Scheduled HEPATITIS C [facility] of Test SCREENING [code = Medicine HEPATITIS C SCREENING] Future Scheduled HIV SCREENING [code [facility] of Test = HIV SCREENING] Medicine Future Scheduled CERVICAL CANCER [facility] ollege of Test SCREENING 3 YEAR Medicine FOLLOW UP [code = CERVICAL CANCER SCREENING 3 YEAR FOLLOW UP] Future Scheduled FLU VACCINE > 6 [facility] ollege of Test MONTHS [code = FLU Medicine VACCINE > 6 MONTHS] Encounters Start End Encounter Admission Attending Care Care Encounter Source Date/Time Date/Time Type Type Clinicians Facility Department ID 2020-09-29 2020-09-29 Outpatient SHIRAZ, [facility] [id number] [place] 00:00:00 00:00:00 DEVORA Rodriguez5 Method i 2020-09-16 2020-09-22 Inpatient FORCE, [facility] [id number] [place] 00:00:00 00:00:00 KRISTA Quintanilla3 Me thodi 2020-08-19 2020-08-19 Outpatient NITIN [facility] [id number] [place] 00:00:00 00:00:00 , GM 849 Metho di 2020-08-19 2020-08-19 Outpatient NITIN [facility] [id number] [place] 00:00:00 00:00:00 , GM 101 Metho di 2020-07-19 2020-07-27 Inpatient NITIN [facility] [id number] [place] 00:00:00 00:00:00 , GM 197 Metho di 2020-07-14 2020-07-14 Outpatient NITIN [facility] [id number] [place] 00:00:00 00:00:00 , GM 205 Metho di 2020-07-14 2020-07-14 Outpatient NITIN [facility] [id number] [place] 00:00:00 00:00:00 , GM 428 Metho di 2020-07-14 2020-07-14 Outpatient NITIN [facility] [id number] [place] 00:00:00 00:00:00 , GM 182 Metho di 2020-06-23 2020-06-23 Outpatient NITIN [facility] [id number] [place] 00:00:00 00:00:00 , GM 678 Metho di 2020-06-23 2020-06-23 Outpatient NITIN [facility] [id number] [place] 00:00:00 00:00:00 , GM 463 Metho di 2020-06-23 2020-06-23 Outpatient NITIN [facility] [id number] [place] 00:00:00 00:00:00 , GM 967 Metho di 2020-06-21 2020-06-21 Refsharita Guerrero, [facility] 1.2.840.[id number] [place] [address] 00:00:00 00:00:00 Anna Marie [place] [id number] ity of [id number] [phone] Nh dicil nal 059 [facility] 2020-06-21 2020-06-21 [email or web address] 1.2.840.114 [id number] 00:00:00 00:00:00 Anna Marie Giordano [id number] [place] [id number] Professio [phone] nal [address] [place] [address] 2020-06-09 2020-06-[address] [facility] 1.2.840.114 [id number] [facility] 00:00:00 00:00:00 Outreach Jeremy PRIMARY [id number] i [facility] [id number] [phone] Nh dical [address] [place] 2020-06-09 2020-06-09 Patient Tremaine, [facility] 1.2.840.114 [id number] 00:00:00 00:00:00 Outreach Jeremy PRIMARY [id number] [place] [facility] [id number] [place] [id number] 388 2020-06-01 2020-06-01 Outpatient Checo GUERRERO [facility] [id number] Univers 09:00:00 09:00:00 CELIARUBA [id number] ity o [facility] 2020-05-31 2020-05-31 Outpatient Checo GUERRERO [facility] [id number] [facility] 09:00:00 09:00:00 ANNA MARIE [id number] ity o [facility] 2020-05-20 2020-05-20 Orders Doctor JEREMY 1.2.840.114 [id number] Univers 00:00:00 00:00:00 Only Unassigned, LUCIAN [id number] ity of [facility] [id number] [facility] [place] [facility] as [phone] [address] 2020-05-20 2020-05-20 Orders Doctor LUNA 1.2.840.114 [id number] 00:00:00 00:00:00 Only Unassigned, LUCIAN [id number] [facility] [phone] [facility] 2020-04-28 2020-04-28 Outpatient EL LETSOU, [facility] [id number] [facility] 00:00:00 00:00:00 FIFTY LAKES 2020-03-22 2020-03-22 Outpatient LETSOU, [facility] [id number] SLE 00:00:00 00:00:00 FIFTY LAKES 2020-03-22 2020-03-22 Outpatient EL LETSOU, [facility]H [facility] [id number] [facility] 00:00:00 00:00:00 FIFTY LAKES 2020-03-03 2020-03-03 Outpatient EL LETSOU, SLEH SLEH [id number] [facility] 00:00:00 00:00:00 FIFTY LAKES 2020-02-17 2020-02-17 Outpatient [facility] [id number] [place] 00:00:00 00:00:00 NANI Goodwin [facility] 2019-12-25 2019-12-25 Orders Doctor JEREMY Terry.2.840.114 [id number] Univers 00:00:00 00:00:00 Only Unassigned, LUCIAN [id number] ity of [place] [facility] [id number] Sharif as [phone] [address] 2019-12-25 2019-12-25 Orders Doctor JEREMY 1.2.840.114 [id number] 00:00:00 00:00:00 Only Unassigned, LUCIAN [id number] [place] [facility] 4.2.7.2.686 [id number] 2019-08-04 2019-08-04 Refill Cesar, [facility] 1.2.840.114 [id number] Univers 00:00:00 00:00:00 [place] [id number] ity of [id number] [phone] [address] 2019-08-04 2019-08-04 Refill Cesar, [facility] 1.2.840.114 [id number] 00:00:00 00:00:00 [place] [id number] [place] [id number] Professio [id number] [address] 2019-07-29 2019-07-29 Refill Cesar, [facility] 1.2.840.114 [id number] Univers 00:00:00 00:00:00 [place] [id number] ity of [id number] [phone] [address] 2019-07-29 2019-07-29 Refill Cesar, [facility] 1.2.840.114 [id number] 00:00:00 00:00:00 [place] [id number] [place] [id number] Professio [phone] [address] 2019-06-26 2019-06-26 Orders Doctor LUNA 1.2.840.114 [id number] Univers 00:00:00 00:00:00 Only Unassigned, LUCIAN [id number] ity of [place] [facility] 4.2.7.2.686 Sharif as [phone] [address] 2019-06-26 2019-06-26 Orders Doctor JEREMY 1.2.840.114 [id number] 00:00:00 00:00:00 Only Unassigned, LUCIAN [id number] [place] [facility] 4.2.7.2.686 [id number] 2019-05-29 2019-05-29 Outpatient R [facility] [id number] Univers 08:00:00 08:00:00 [id number] ity of [facility] 2019-05-27 2019-05-27 Office [facility] 1.2.840.114 [id number] Univers 09:24:52 10:34:57 Visit Anna Marie Giordano [id number] ity of [id number] [phone] [address] 2019-05-27 2019-05-27 Office [facility] 1.2.840.114 [id number] 09:24:52 10:34:57 Visit Anna Marie Giordano [id number] [place] [id number] Professio [phone] [address] 2019-05-27 2019-05-27 Outpatient R [facility] [id number] Univers 09:20:00 09:20:00 ANNA MARIE ulloa o f [facility] 2019-05-14 2019-05-14 Refill [facility] 1.2.840.114 [id number] Univers 00:00:00 00:00:00 Anna Marie Giordano [id number] ity of [id number] [phone] [address] 2019-05-07 2019-05-07 Refill [facility] 1.2.840.114 [id number] Univers 00:00:00 00:00:00 Anna Marie Giordano [id number] ity of [place] [id number] [phone] Nh dic[address] 2019-04-16 2019-04-[address] [facility] 1.2.840.114 [id number] Univers 00:00:00 00:00:00 Secure Msg Unassigned, Pasquale 350.1.13.10 ity of [place] 4[place]7.2.[place] [phone] Nh yamila [address] 2019-04-13 2019-04-13 Refill Cesar, [facility] 1.2.840.114 [id number] [facility] 00:00:00 00:00:00 Carolynenuviaruba Giordano [id number] ity of [place] [id number] [phone] [address] 2019-01-08 2019-01-08 Office JOSH Gtz 1.2.840.114 [id number] 14:16:47 17:54:57 Visit Esther Y AMBULATOR 350.1.13.21 Y 0.2.7.2.686 [phone] [facility] 2019-01-08 2019-01-08 Office JOSH Gtz 1.2.840.114 [id number] [facility] 14:16:47 17:54:57 Visit Esther Y AMBULATOR 350.1.13.21 Impact Y 0.2.7.2.686 of [phone] [facility] 300 e 2018-12-17 2018-12-17 Telephone [facility], [facility] [id number] Univers 00:00:00 00:00:00 Anna Marie Giordano [id number] ity of [id number] [phone] [address] 2018-12-13 2018-12-13 Telephone [facility], [facility] [id number] Univers 00:00:00 00:00:00 [place] [id number] it[id number] [phone] [facility] [address] 2018-12-12 2018-12-12 [email or web address] [id number] Univers 00:00:00 00:00:00 [place] [id number] [id number] [phone] [place] [id number] [facility] 2018-12-05 2018-12-05 Telephone [facility] [id number] Univers 00:00:00 00:00:00 Anna Marie Giodrano [id number] [id number] [phone] [address] 2018-12-05 2018-12-05 Telephone [facility] [id number] Univers 00:00:00 00:00:00 Anna Marie Giordano [id number] [id number] [phone] [address] 2018-12-04 2018-12-04 Hat Blocking Operator 1, Adc [facility] [id number] Univers 08:21:22 08:36:22 Visit Anna Marie Guerrero [id number] [id number] [phone] [facility] [address] 2018-12-04 2018-12-04 Orders Doctor JEREMY [id number] Univers 00:00:00 00:00:00 Only Unassigned, LUCIAN [id number] ity of [place] [id number] Sharif as [phone] [facility] [address] 2018-11-15 2018-11-15 Telephone [facility] [id number] Univers 00:00:00 00:00:00 Anna Marie Giordano [id number] [id number] [phone] [address] Results Test Description Test Time Test Comments Results Result Comments Source SARS-CoV-2 (COVID-19) RNA [Presence] in Respiratory sp ecimen by 2020-07-14 19:06:02 ANIBAL with probe detection Test Item Value Reference Range Interpretation Comme nts SARS-CoV-2 (COVID-19) RNA [Presence] in Respiratory Not detected No t-Detected specimen by ANIBAL with probe detection (test code = 00431-1)
[2021-05-04] MEDS ORDERED: NA CHLORIDE 0.9% 500 ML ONE (18:14)
[2021-05-04 18:17] LABS: Absolute Lymphocytes (CBC) 0.5 K/uL (0.7-4.9); Hematocrit 36.6 % (36.0-45.0); Lymphocytes % 3.4 % (15.3-44.8); MPV 8.7 fL (7.6-11.3); RBC Red Blood Cell Count 4.12 M/uL (3.86-4.86)
--- NOTE | 2021-05-04 18:19 | EDPHYS ---
Physician Documentation [facility] Name: Celsa Lorenzo Age: 66 yrs Sex: Female : 1955 Arrival Date: 05/04/2021 Time: 16:31 Bed 14 Private MD: Lasha Fall ED Physician Alix Maxwell HPI: 05/04 17:45 This 66 yrs old Female presents to ER via Wheelchair with complaints of Shortness Of jmm Breath. 17:45 The patient has shortness of breath at rest. Onset: The symptoms/episode began/occurred jmm gradually, 3 week(s) ago. Duration: The symptoms are continuous, and are steadily getting worse. The patient's shortness of breath is aggravated by nothing, is alleviated by nothing. Associated signs and symptoms: Pertinent positives: non-productive cough, Pertinent negatives: chest pain. This is a 66-year-old female with history of atrial fibrillation, CHF, COPD, hypertension the presents emerge department with complaints of shortness of breath worsening over the past 3 weeks. Patient does have home oxygen but states she is felt increasingly weak and has had difficulty sleeping. Patient was evaluated by her PCP and advised to go to the ED due to to fluctuations in heart rate.. Historical: - Allergies: 17:13 Betadine; jg9 17:13 Iodine; Topical only; jg9 - PMHx: 17:13 ADD/ADHD; Atrial Fib; cardioversion; CHF; COPD; Hypertension; mitral valve stenosis; jg9 pulmonary HTN; resp failure; Rheumatoid Arthritis; - PSHx: 17:13 Appendectomy; section; Cholecystectomy; mitral and tricupid valve jg9 replacement.; Tonsillectomy; tubal ligation; - Immunization history:: Client reports having NOT received the Covid vaccine. Pneumococcal vaccine is not up to date, Flu vaccine is not up to date. - Social history:: Smoking status: Patient/guardian denies using tobacco, Stopped _ months ago 2. ROS: 18:15 Constitutional: Positive for body aches, chills, fatigue. jmm 18:15 Respiratory: Positive for cough, shortness of breath. 18:15 All other systems are negative. Exam: 18:15 Constitutional: This is a well developed, well nourished patient who is awake, alert, jmm and in no acute distress. Head/Face: atraumatic. Eyes: EOMI, no conjunctival erythema appreciated ENT: Moist Mucus Membranes Neck: Trachea midline, Supple Chest/axilla: Normal chest wall appearance and motion. 18:15 Abdomen/GI: Non distended, soft Back: Normal ROM Skin: General appearance color normal MS/ Extremity: Moves all extremities, no obvious deformities appreciated, no edema noted to the lower extremities Neuro: Awake and alert Psych: Behavior is normal, Mood is normal, Patient is cooperative and pleasant 18:15 Cardiovascular: Rate: tachycardic, Rhythm: regular. 18:15 Respiratory: the patient does not display signs of respiratory distress, Respirations: normal, Breath sounds: wheezing: that is mild, is scattered. Vital Signs: 17:08 BP 100 / 70; Pulse 62; Resp 22 S; Temp 96.8(TE); Pulse Ox 93% on R/A; Weight 90.72 kg 9 (R); Height 5 ft. 9 in. (175.26 cm) (R); 18:09 BP 117 / 67; Pulse 123; Resp 20; Pulse Ox 100% on 3 lpm NC; ic1 18:30 BP 116 / 87; Pulse 120; Resp 100; Pulse Ox 100% on 3 lpm NC; ic1 22:12 BP 107 / 71 Supine (auto/reg); Pulse 116 MON; Resp 21 S; Pulse Ox 98% on R/A; sv1 17:08 Body Mass Index 29.53 (90.72 kg, 175.26 cm) 9 MDM: 17:52 Patient medically screened. [facility] 18:17 Data reviewed: vital signs, nurses notes. Counseling: I had a detailed discussion with [facility] the patient and/or guardian regarding: the historical points, exam findings, and any diagnostic results supporting the discharge/admit diagnosis, the need for further work-up and treatment in the hospital. ED course: I discussed the patient with Dr. Fall whom accepted the patient to his service. . 05/04 17:45 Order name: Basic Metabolic Panel; Complete Time: 22:47 [facility] 05/04 17:45 Order name: CBC with Diff; Complete Time: 21:24 [facility] 05/04 17:45 Order name: LFT's; Complete Time: 22:47 [facility] 05/04 17:45 Order name: Magnesium; Complete Time: 22:47 [facility] 05/04 17:45 Order name: NT PRO-BNP; Complete Time: 22:47 [facility] 05/04 17:45 Order name: PT-INR; Complete Time: 18:42 [facility] 05/04 17:45 Order name: Troponin HS; Complete Time: 22:47 [facility] 05/04 17:45 Order name: XRAY Chest (1 view); Complete Time: 18:51 [facility] 05/04 17:45 Order name: COVID-19/FLU A+B (Document "Date of Onset" if Symptomatic); Complete Time: [facility] 20:10 05/04 18:23 Order name: Basic Metabolic Panel EDLA 05/04 18:23 Order name: Basic Metabolic Panel EDLA 05/04 18:23 Order name: CBC with Automated Diff EDLA 05/04 18:23 Order name: CBC with Automated Diff EDLA 05/04 21:24 Order name: CBC Smear Scan; Complete Time: 21:24 EDLA 05/04 17:45 Order name: EKG; Complete Time: 17:45 [facility] 05/04 17:45 Order name: Cardiac monitoring; Complete Time: 18:11 [facility] 05/04 17:45 Order name: EKG - Nurse/Tech; Complete Time: 18:11 [facility] 05/04 17:45 Order name: IV Saline Lock; Complete Time: 18:11 [facility] 05/04 17:45 Order name: Labs collected and sent; Complete Time: 18:11 [facility] 05/04 17:45 Order name: O2 Per Protocol; Complete Time: 18:11 [facility] 05/04 17:45 Order name: O2 Sat Monitoring; Complete Time: 18:11 [facility] 05/04 18:23 Order name: CONS Physician Consult EDLA 05/04 18:23 Order name: Regular; Complete Time: 19:32 EDMS 05/04 18:23 Order name: EKG Electrocardiogram; Complete Time: 19:32 EDLA 05/04 18:23 Order name: EKG Electrocardiogram; Complete Time: 19:32 EDMS 05/04 18:23 Order name: EKG Electrocardiogram; Complete Time: 19:32 EDMS 05/04 18:23 Order name: EKG Electrocardiogram; Complete Time: 19:32 EDMS Administered Medications: 18:13 Drug: NS 0.9% 500 ml Route: IV; Rate: bolus; Site: right hand; ic1 Disposition Summary: 05/04/21 18:18 Hospitalization Ordered Hospitalization Status: Observation [facility] Provider: Lasha Fall Location: Telemetry/MedSurg (observation) [facility] Condition: Stable jmm Problem: new jmm Symptoms: are unchanged jmm Bed/Room Type: Standard [facility] Room Assignment: 408(05/04/21 20:58) eb1 Diagnosis - Unspecified atrial fibrillation jmm - Dyspnea [facility] - Coronavirus infection, unspecified [facility] Forms: - Medication Reconciliation Form jmm - SBAR form [facility] Signatures: Dispatcher [employer] EDKyrie Bales PA PA jmm Basinger, Emily RN RN eb1 Hanna Russell RN RN jg9 Ayaka Mercer RN RN ic1 Corrections: (The following items were deleted from the chart) 18:16 17:45 This is a 66-year-old female. [facility] 20:58 18:18 [facility] eb1
--- NOTE | 2021-05-04 18:19 | ER ---
Nurse's Notes [facility] Name: Celsa Lorenzo Age: 66 yrs Sex: Female : 1955 Arrival Date: 05/04/2021 Time: 16:31 Bed 14 Private MD: Lasha Fall Diagnosis: Unspecified atrial fibrillation;Dyspnea;Coronavirus infection, unspecified Presentation: 05/04 17:08 Chief complaint: Patient states: Patient sent by Dr. Rashid Fall to be evaluated for jg9 ongoing SOB x 2+ weeks ago, r/o cardiac in nature, patient diagnosed with COVID 10 days ago on 3 L home O2 patient still continues to have trouble. Coronavirus screen: Vaccine status: Patient reports being unvaccinated. Ebola Screen: Patient negative for fever greater than or equal to 101.5 degrees Fahrenheit, and additional compatible Ebola Virus Disease symptoms Patient denies exposure to infectious person. Patient denies travel to an Ebola-affected area in the 21 days before illness onset. Initial Sepsis Screen: Does the patient meet any 2 criteria? No. Patient's initial sepsis screen is negative. Does the patient have a suspected source of infection? No. Patient's initial sepsis screen is negative. Risk Assessment: Do you want to hurt yourself or someone else? Patient reports no desire to harm self or others. Onset of symptoms is unknown. 17:08 Method Of Arrival: Wheelchair jg9 17:08 Acuity: MAXIMO 3 jg9 Triage Assessment: 17:14 General: Appears uncomfortable, Behavior is calm. Pain: Denies pain. Respiratory: jg9 Reports shortness of breath since 3 weeks Onset: The symptoms/episode began/occurred 3 weeks ago, the patient has mild shortness of breath. Historical: - Allergies: 17:13 Betadine; jg9 17:13 Iodine; Topical only; jg9 - PMHx: 17:13 ADD/ADHD; Atrial Fib; cardioversion; CHF; COPD; Hypertension; mitral valve stenosis; jg9 pulmonary HTN; resp failure; Rheumatoid Arthritis; - PSHx: 17:13 Appendectomy; section; Cholecystectomy; mitral and tricupid valve jg9 replacement.; Tonsillectomy; tubal ligation; - Immunization history:: Client reports having NOT received the Covid vaccine. Pneumococcal vaccine is not up to date, Flu vaccine is not up to date. - Social history:: Smoking status: Patient/guardian denies using tobacco, Stopped _ months ago 2. Screenin:14 Abuse screen: Denies threats or abuse. Denies injuries from another. Nutritional jg9 screening: No deficits noted. Tuberculosis screening: No symptoms or risk factors identified. Fall Risk None identified. Assessment: 17:15 Cardiovascular: Rhythm is atrial fibrillation. Respiratory: Airway is patent jg9 Respiratory effort is even, unlabored, Breath sounds are clear bilaterally. 18:09 General: Appears in no apparent distress. Behavior is calm, cooperative. Pain: Denies ic1 pain. Neuro: Level of Consciousness is awake, alert, obeys commands, Oriented to person, place, time, situation. GI: No deficits noted. : No deficits noted. EENT: No deficits noted. Derm: No deficits noted. Musculoskeletal: No deficits noted. 18:30 Reassessment: No changes from previously documented assessment. Patient denies pain at ic1 this time. Vital Signs: 17:08 BP 100 / 70; Pulse 62; Resp 22 S; Temp 96.8(TE); Pulse Ox 93% on R/A; Weight 90.72 kg jg9 (R); Height 5 ft. 9 in. (175.26 cm) (R); 18:09 BP 117 / 67; Pulse 123; Resp 20; Pulse Ox 100% on 3 lpm NC; ic1 18:30 BP 116 / 87; Pulse 120; Resp 100; Pulse Ox 100% on 3 lpm NC; ic1 22:12 BP 107 / 71 Supine (auto/reg); Pulse 116 MON; Resp 21 S; Pulse Ox 98% on R/A; sv1 17:08 Body Mass Index 29.53 (90.72 kg, 175.26 cm) jg9 Vitals: 18:30 Cardiac Rhythm Assessment Atrial fibrillation W/rapid ventricular response W/PVC's. ic1 ED Course: 16:31 Patient arrived in ED. ds1 16:31 Lasha Fall MD is Private Physician. ds1 17:13 Triage completed. jg9 17:15 Arm band placed on right wrist. jg9 17:44 [facility] [place] 17:44 Alix Maxwell MD is Attending Physician. [place] 18:09 Ayaka Mercer, RN is Primary Nurse. ic1 18:09 Patient has correct armband on for positive identification. Bed in low position. Call ic1 light in reach. Side rails up X2. Warm blanket given. 18:09 Inserted saline lock: 20 gauge in right hand, using aseptic technique. Blood collected. ic1 18:18 Lasha Fall MD is Hospitalizing Provider. [place] 18:29 XRAY Chest (1 view) In Process Unspecified. EDMS 19:31 CBC with Automated Diff Sent. sv1 19:31 Basic Metabolic Panel Sent. sv1 19:31 Basic Metabolic Panel Sent. sv1 19:32 CBC with Automated Diff Sent. sv1 22:11 No provider procedures requiring assistance completed. Patient admitted, IV remains in sv1 place. intact. Administered Medications: 18:13 Drug: NS 0.9% 500 ml Route: IV; Rate: bolus; Site: right hand; ic1 Outcome: 18:18 Decision to Hospitalize by Provider. [place] 22:11 Admitted to Med/surg accompanied by tech. sv1 22:11 Condition: stable 22:11 Instructed on the need for admit. 22:49 Patient left the ED. sv1 Signatures: Dispatcher [employer] EDMS Kyrie Herring PA PA [place] Meeta Anderson ds1 Hanna Russell RN RN jg9 Michel Florentino RN RN sv1 Ayaka Mercer RN RN ic1
[2021-05-04] MEDS ORDERED: ACETAMINOPHEN 500 MG TAB PO PRN (18:21)
[2021-05-04] MEDS ORDERED: ONDANSETRON 4 MG/2 ML VIAL IV PRN (18:21)
[2021-05-04 18:34] LABS: Protime INR 1.48
--- NOTE | 2021-05-04 18:41 | RAD REPORT ---
EXAM DESCRIPTION: RAD - Chest Single View - 05/04/2021 6:27 pm CLINICAL HISTORY: SOB, history of COVID COMPARISON: Portable May 01 TECHNIQUE: AP portable chest image was obtained 05/04/2021 6:27 pm . FINDINGS: Extensive interstitial opacification is present along with airspace opacification in the m id and lower lung giron. Findings of airspace disease are progressive. Patient has significant chron ic interstitial lung disease. Cardiomegaly is present. Central vasculature is prominent but not substantially different. Sternotom y wires are in place. Left atrial appendage closure device in place. No measurable pleural effusion a nd no pneumothorax. No acute bony abnormality seen. No acute aortic findings suspected. IMPRESSION: Worsening alveolar opacification in the mid and lower lung giron compared to May 01 imaging. Prior study indicated positive COVID test in this could be worsening COVID-19 pneumonia. Patient has extensive chronic interstitial lung disease. This could mask associated interstitial heather a.
--- NOTE | 2021-05-04 18:55 | P.HP ---
Certification for Inpatient Patient admitted to: Inpatient With expected LOS: >2 Midnights Patient will require the following post-hospital care: Home Health Services Practitioner: I am a practitioner with admitting privileges, knowledge of patient current condition, hospital course, and medical plan of care. Services: Services provided to patient in accordance with Admission requirements found in Title 42 Section 412.3 of the Code of Federal Regulations Patient History Date of Service: 05/04/21 Primary Care Provider: Karol Mondragon Reason for admission: Chf Exacerbation. History of Present Illness: Patient is an office patient of Karol Mondragon. She has a history of atrial fib. She has been treated for covid recently as an outpatient. Was seen in the ER This past Sunday and Sunday. the patient came to the office today. She had a very labile pulse and crepitations in her lungs. HR was from the 50's to the 130s. The patient was sent to the Er. Cxr showed pleural effusions. This could be fluid or the covid. Allergies iodine Allergy (Verified 04/20/17 21:14) Unknown Home Medications: Albuterol Sulfate [Proair Hfa] 8.5 gm IH TID PRN #90 hfa.aer.ad 04/25/17 Bupropion HCl [Wellbutrin] 150 mg PO DAILY 06/25/17 Digoxin [Lanoxin] 125 mcg PO DAILY 06/25/17 Fluticasone/Salmeterol [Airduo Respiclick 113-14 Mcg] 1 each IH BID PRN 06/25/17 Sertraline [Zoloft*] 50 mg PO DAILY 06/25/17 Sotalol HCl [Betapace*] 120 mg PO BID 06/25/17 Tofacitinib Citrate [Xeljanz Xr] 11 mg PO DAILY 06/25/17 Apixaban [Eliquis *] 5 mg PO BID 07/29/18 Melatonin 10 mg PO BEDTIME PRN 07/29/18 predniSONE [Prednisone*] 2.5 mg PO SEECOM 07/29/18 Furosemide [Lasix*] 40 mg PO BID #60 tab 07/30/18 - Past Medical/Surgical History Diabetic: No -: Chronic atrial fibrillation, chronic anti coagulation therapy -: Rheumatoid arthritis -: Hypertension -: Systolic CHF -: Mitral valve stenosis -: COPD -: Former tobacco use -: resp failure -: tonsillectomy -: c- section -: appendectomy -: tubal ligation Psychosocial/ Personal History: Patient is - Family History Mother -: Cancer, Other (see notes) Notes: M.S Father -: Heart disease, Cancer, Other (see notes) Notes: DVT's - Social History Alcohol use: No CD- Drugs: No Caffeine use: Yes Review of Systems 10-point ROS is otherwise unremarkable General: Weakness Respiratory: Shortness of Breath Cardiovascular: Palpitations Physical Examination - Physical Exam General: Alert, In no apparent distress HEENT: Atraumatic, PERRLA, Mucous membr. moist/pink, EOMI, Sclerae nonicteric Neck: Supple, 2+ carotid pulse no bruit, No LAD, Without JVD or thyroid abnormality Respiratory: Clear to auscultation bilaterally, Crackles/rales (basilar lungs. ) Cardiovascular: No edema, Normal S1 S2, Abnormal pulses (tachycardia) Gastrointestinal: Normal bowel sounds, No tenderness Musculoskeletal: No tenderness Integumentary: No rashes Neurological: Normal gait, Normal speech, Normal strength at 5/5 x4 extr, Normal tone, Normal affect Lymphatics: No axilla or inguinal lymphadenopathy - Studies Laboratory Data (last 24 hrs) 05/04/21 18:03: PT 17.1 H, INR 1.48 05/04/21 18:03: WBC 13.20 H D, Hgb 12.2, Hct 36.6, Plt Count 261 D Assessment and Plan - Problems (Diagnosis) (1) Atrial fibrillation with RVR Onset Date: 04/23/17 Current Visit: No Status: Acute Plan: restart low dose metoprolol and digoxin. Will consult Dr. Triana (2) Acute CHF (congestive heart failure) Current Visit: No Status: Acute Plan: Start the patient on lasix. Order an echocardiocardiogram Qualifiers: Heart failure type: systolic Qualified Code(s): I50.21 - Acute systolic (congestive) heart failure (3) HTN (hypertension) Onset Date: 04/23/17 Current Visit: No Status: Chronic Plan: Will start the patient on her home meds. Will adjust the patient on medications Qualifiers: Hypertension type: primary hypertension Qualified Code(s): I10 - Essential (primary) hypertension (4) COVID Current Visit: Yes Status: Acute Plan: Patient tested positive more than a week ago. The patient may do well with a short course of prednisone. She is on chronic prednisone for her copd. Discharge Plan: Home Plan to discharge in: 48 Hours - Advance Directives Does patient have a Living Will: No Does patient have a Durable POA for Healthcare: No - Code Status/Comfort Care Code Status Assessed: Yes Code Status: Full Code Physician Review: Patient Assessed, Agree with Above Assessment and Plan Critical Care: No Time Spent Managing Pts Care (In Minutes): 70
[2021-05-04 18:58] LABS: Albumin 2.9 g/dL (3.4-5.0); Bilirubin Direct 0.2 mg/dL (0-0.2); Bilirubin Total 0.7 mg/dL (0.2-1.0); Potassium 3.7 mmol/L (3.5-5.1); Protein, Total 7.5 g/dL (6.4-8.2); Troponin High Sensitivity 10.2 pg/mL (<58.9)
[2021-05-04] MEDS ORDERED: MELATONIN 5 MG TABLET PO PRN (19:10)
[2021-05-04] MEDS ORDERED: ALBUTEROL INHALER 60 PUFF/8 GM IH PRN (19:10)
[2021-05-04 19:54] LABS: SARS-COV-2 RT PCR POSITIVE (NEGATIVE)
[2021-05-04] MEDS: APIXABAN 5 MG TABLET PO SCH (21:00)
[2021-05-04] MEDS: FUROSEMIDE 40 MG/4 ML VIAL IV SCH (21:00)
[2021-05-04] MEDS: METOPROLOL TAR 25 MG TAB PO SCH (21:00)
[2021-05-04] MEDS ORDERED: METOPROLOL TAR 25 MG TAB ONE (21:14)
[2021-05-04] MEDS ORDERED: FUROSEMIDE 40 MG/4 ML VIAL ONE (21:14)
[2021-05-04] MEDS ORDERED: APIXABAN 5 MG TABLET ONE (21:14)
[2021-05-04 21:22] LABS: Blood Morphology Comment NOT SEEN (NOT SEEN); Platelet Estimate ADEQ; White Blood Cell Scan OK (OK)
[2021-05-04 23:25] VITALS: BMI 29.6
[2021-05-05 04:07] LABS: Absolute Lymphocytes (CBC) 0.8 K/uL (0.7-4.9); Hematocrit 35.8 % (36.0-45.0); Lymphocytes % 7.3 % (15.3-44.8); MPV 8.7 fL (7.6-11.3)
[2021-05-05 04:32] LABS: Potassium 3.5 mmol/L (3.5-5.1)
[2021-05-05] MEDS: APIXABAN 5 MG TABLET PO SCH ×2 (08:13→20:52)
[2021-05-05] MEDS: DIGOXIN 0.125 MG TABLET PO SCH (08:13)
[2021-05-05] MEDS: FUROSEMIDE 40 MG/4 ML VIAL IV SCH ×2 (08:13→20:51)
[2021-05-05] MEDS: ASPIRIN EC 81 MG TAB PO SCH (08:14)
[2021-05-05] MEDS: METOPROLOL TAR 25 MG TAB PO SCH ×2 (08:14→20:52)
[2021-05-05] MEDS: SERTRALINE HCL 50 MG TAB PO SCH (08:14)
--- NOTE | 2021-05-05 08:49 | P.PN ---
Subjective Date of Service: 05/05/21 Primary Care Provider: Karol Mondragon Chief Complaint: Chf Exacerbation. Subjective: Improving Review of Systems 10-point ROS is otherwise unremarkable Physical Examination - Vital Signs Temperature: 97 F Blood Pressure: 115/87 Pulse: 118 Respirations: 18 Pulse Ox (%): 95 - Physical Exam General: Alert, In no apparent distress HEENT: Atraumatic, PERRLA, EOMI Neck: Supple, JVD not distended Respiratory: Clear to auscultation bilaterally, Normal air movement Cardiovascular: Regular rate/rhythm, Normal S1 S2 Gastrointestinal: Normal bowel sounds, No tenderness Musculoskeletal: No tenderness Integumentary: No rashes Neurological: Normal speech, Normal tone, Normal affect Lymphatics: No axilla or inguinal lymphadenopathy - Studies Laboratory Data (last 24 hrs) 05/04/21 18:03: PT 17.1 H, INR 1.48 05/04/21 18:03: WBC 13.20 H D, Hgb 12.2, Hct 36.6, Plt Count 261 D 05/04/21 18:03: Sodium 130 L, Potassium 3.7, BUN 14, Creatinine 0.70, Glucose 133 H, Magnesium 2.0, Total Bilirubin 0.7, AST 37, ALT 29, Alkaline Phosphatase 50 Assessment And Plan - Current Problems (Diagnosis) (1) Atrial fibrillation with RVR Onset Date: 04/23/17 Current Visit: No Status: Acute Plan: restart low dose metoprolol and digoxin. Will consult Dr. Triana 2/3 Not well controlled. Will keep her on low dose metprolol. She was very bradycardia in the office. She has tachycardia and bradycardia (2) Acute CHF (congestive heart failure) Current Visit: No Status: Acute Plan: Start the patient on lasix. Order an echocardiocardiogram Qualifiers: Heart failure type: systolic Qualified Code(s): I50.21 - Acute systolic (congestive) heart failure (3) HTN (hypertension) Onset Date: 04/23/17 Current Visit: No Status: Chronic Plan: Will start the patient on her home meds. Will adjust the patient on medications Qualifiers: Hypertension type: primary hypertension Qualified Code(s): I10 - Essential (primary) hypertension (4) COVID Current Visit: Yes Status: Acute Plan: Patient tested positive more than a week ago. The patient may do well with a short course of prednisone. She is on chronic prednisone for her copd. Discharge Plan: Home Plan to discharge in: 24 Hours - Code Status/Comfort Care Code Status Assessed: No Physician Review: Patient Assessed, Agree with Above Assessment and Plan Critical Care: No Time Spent Managing PTS Care (In Minutes): 20
[2021-05-05] MEDS ORDERED: dexAMETHasone 4 MG/ML VIAL IV SCH (09:00)
--- NOTE | 2021-05-05 17:16 | CON ---
Date of Consultation: 05/05/2021 Reason For Consultation: Atrial fibrillation and CHF. History Of Present Illness: This is a 66-year-old female with history of atrial fibrillation, on ant icoagulation, congestive heart failure, rheumatoid arthritis, hypertension, COPD, status post mitral and aortic valve replacement, who presented with shortness of breath and cough, diagnosed with COVID. She was found to be in atrial fibrillation with rapid ventricular response. Denies having any ches t pain. After diuresis with Lasix, she is feeling better clinically, but no chest pain, orthopnea. Past Medical History: As outlined above in the HPI. Medications: Refer to reconciliation sheet for detailed sheet. Allergies: IODINE. Family History: No premature coronary artery disease. Social History: Does not smoke or drink. Does not use any drugs. She is an ex-smoker. Review of Systems: All systems reviewed and they were negative except for what mentioned in HPI. Physical Examination: Vital Signs: Reviewed. Head and Neck: Pupils are equal, reactive to light. Intact eye movements. No JVD. No cervical lym phadenopathy. Neck is supple. Thyroid is not enlarged. Lungs: Clear to auscultation bilaterally. No rhonchi, rales, or crackles. No accessory muscle use. Heart: Irregularly irregular. No extra sounds. Abdomen: Soft, nontender. Bowel sounds positive. No organomegaly. No masses or hernia. No rigidi ty or rebound. Extremities: No edema, clubbing, or cyanosis. Intact pulses. Skin: No rashes. Neurologic: Alert, awake, oriented x3. No acute focal deficits appreciated. Investigations: Labs were reviewed. Assessment And Recommendations: 1.Atrial fibrillation with rapid ventricular response. Recommend to start sotalol 80 mg twice a day and monitor EKG daily until the third dose is done and to monitor specifically the QT interval and u se beta-kenn like Lopressor 5 mg IV q.1 hour for rate control and recommend to continue anticoagul ation for stroke protection with apixaban as ordered. 2.Congestive heart failure. Echo was not done recently. Recommend to obtain one to evaluate the he art function and the valves that were placed recently surgically and I agree with Lasix. The patient can be switched to oral form, however, at this point. 3.COVID positive, under the care of hospitalist. SR/MODL Voice ID: [id number] Report ID: [id number]
[2021-05-06] MEDS: DIGOXIN 0.125 MG TABLET PO SCH ×2 (07:58→12:23)
[2021-05-06] MEDS: METOPROLOL TAR 25 MG TAB PO SCH ×2 (07:59→21:11)
[2021-05-06] MEDS: FUROSEMIDE 40 MG/4 ML VIAL IV SCH ×2 (07:59→21:11)
[2021-05-06] MEDS: SERTRALINE HCL 50 MG TAB PO SCH (08:00)
[2021-05-06] MEDS: APIXABAN 5 MG TABLET PO SCH ×2 (08:00→21:10)
[2021-05-06] MEDS: ASPIRIN EC 81 MG TAB PO SCH (08:00)
[2021-05-06 10:23] VITALS: O2SAT 92
--- NOTE | 2021-05-06 12:07 | P.DS ---
Admission Date: 05/05/21 Discharge Date: 05/06/21 Primary Care Provider: Karol Mondragon Disposition: ROUTINE DISCHARGE Discharge Condition: GOOD Reason for Admission: Chf Exacerbation. - Problems (1) Atrial fibrillation with RVR Onset Date: 04/23/17 Current Visit: No Status: Acute (2) Acute CHF (congestive heart failure) Current Visit: No Status: Acute Qualifiers: Heart failure type: systolic Qualified Code(s): I50.21 - Acute systolic (congestive) heart failure (3) HTN (hypertension) Onset Date: 04/23/17 Current Visit: No Status: Chronic Qualifiers: Hypertension type: primary hypertension Qualified Code(s): I10 - Essential (primary) hypertension (4) COVID Current Visit: Yes Status: Acute Brief History of Present Illness: Patient is an office patient of Karol Mondragon. She has a history of atrial fib. She has been treated for covid recently as an outpatient. Was seen in the ER This past Sunday and Sunday. the patient came to the office today. She had a very labile pulse and crepitations in her lungs. HR was from the 50's to the 130s. The patient was sent to the Er. Cxr showed pleural effusions. This could be fluid or the covid. Vital Signs/Physical Exam: Temp Pulse Resp BP Pulse Ox 97.9 F 93 H 17 99/62 96 05/06/21 03:56 05/06/21 07:59 05/06/21 03:56 05/06/21 07:59 05/06/21 03:56 General: Alert, In no apparent distress HEENT: Atraumatic, PERRLA, EOMI Neck: Supple, JVD not distended Respiratory: Clear to auscultation bilaterally, Rhonchi/gurgles (mild) Cardiovascular: Regular rate/rhythm, Normal S1 S2 Gastrointestinal: Normal bowel sounds, No tenderness Musculoskeletal: No tenderness Integumentary: No rashes Neurological: Normal speech, Normal tone, Normal affect Lymphatics: No axilla or inguinal lymphadenopathy Laboratory Data at Discharge: WBC 11.40 K/uL (4.3-10.9) H 05/05/21 03:07 Hgb 11.9 g/dL (12.0-15.0) L 05/05/21 03:07 Hct 35.8 % (36.0-45.0) L 05/05/21 03:07 Plt Count 244 K/uL (152-406) 05/05/21 03:07 PT 17.1 SECONDS (9.5-12.5) H 05/04/21 18:03 INR 1.48 05/04/21 18:03 Sodium 135 mmol/L (136-145) L 05/05/21 03:07 Potassium 3.5 mmol/L (3.5-5.1) 05/05/21 03:07 BUN 15 mg/dL (7-18) 05/05/21 03:07 Creatinine 0.73 mg/dL (0.55-1.3) 05/05/21 03:07 Glucose 87 mg/dL (74-106) 05/05/21 03:07 Magnesium 2.0 05/04/21 18:03 Total Bilirubin 0.7 mg/dL (0.2-1.0) 05/04/21 18:03 AST 37 U/L (15-37) 05/04/21 18:03 ALT 29 U/L (12-78) 05/04/21 18:03 Alkaline Phosphatase 50 U/L (45-117) 05/04/21 18:03 Home Medications: Albuterol Sulfate [Proair Hfa] 8.5 gm IH TID PRN #90 hfa.aer.ad 04/25/17 Bupropion HCl [Wellbutrin] 150 mg PO DAILY 06/25/17 Digoxin [Lanoxin] 125 mcg PO DAILY 06/25/17 Fluticasone/Salmeterol [Airduo Respiclick 113-14 Mcg] 1 each IH BID PRN 06/25/17 Sertraline [Zoloft*] 50 mg PO DAILY 06/25/17 Apixaban [Eliquis *] 5 mg PO BID 07/29/18 Melatonin 10 mg PO BEDTIME PRN 07/29/18 Furosemide 20 mg PO DAILY 7 Days #7 tablet 05/06/21 New Medications: Furosemide 20 mg PO DAILY 7 Days #7 tablet Diet: Regular Activity: Ad yariel Followup: Lasha Fall MD [Primary Care Provider] - 1 Week Dilip Ash MD [ACTIVE - CAN ADMIT] - 1 Week Physician Review: Patient Assessed, Agree with Above Assessment and Plan Time spent managing pt's care (in minutes): 30
[2021-05-07] MEDS: SERTRALINE HCL 50 MG TAB PO SCH (09:15)
[2021-05-07] MEDS: DIGOXIN 0.125 MG TABLET PO SCH (09:15)
[2021-05-07] MEDS: ASPIRIN EC 81 MG TAB PO SCH (09:15)
[2021-05-07] MEDS: APIXABAN 5 MG TABLET PO SCH (09:15)
[2021-05-07] MEDS: METOPROLOL TAR 25 MG TAB PO SCH (09:16)
[2021-05-07] MEDS: FUROSEMIDE 40 MG/4 ML VIAL IV SCH (09:16)
--- NOTE | 2021-05-07 10:09 | P.PN ---
Subjective Date of Service: 05/07/21 Primary Care Provider: Karol Mondragon Chief Complaint: Chf Exacerbation. Subjective: No new changes (discharge held yesterday pending the delivery of home oxygen) Review of Systems 10-point ROS is otherwise unremarkable Physical Examination - Vital Signs Temperature: 97.2 F Blood Pressure: 115/71 Pulse: 83 Respirations: 19 Pulse Ox (%): 97 - Physical Exam General: Alert, In no apparent distress HEENT: Atraumatic, PERRLA, EOMI Neck: Supple, JVD not distended Respiratory: Clear to auscultation bilaterally, Normal air movement Cardiovascular: Regular rate/rhythm, Normal S1 S2 Gastrointestinal: Normal bowel sounds, No tenderness Musculoskeletal: No tenderness Integumentary: No rashes Neurological: Normal speech, Normal tone, Normal affect Lymphatics: No axilla or inguinal lymphadenopathy Assessment And Plan - Current Problems (Diagnosis) (1) Atrial fibrillation with RVR Onset Date: 04/23/17 Current Visit: No Status: Acute Plan: restart low dose metoprolol and digoxin. Will consult Dr. Triana 2/3 Not well controlled. Will keep her on low dose metprolol. She was very bradycardia in the office. She has tachycardia and bradycardia (2) Acute CHF (congestive heart failure) Current Visit: No Status: Acute Plan: Start the patient on lasix. Order an echocardiocardiogram Qualifiers: Heart failure type: systolic Qualified Code(s): I50.21 - Acute systolic (congestive) heart failure (3) HTN (hypertension) Onset Date: 04/23/17 Current Visit: No Status: Chronic Plan: Will start the patient on her home meds. Will adjust the patient on medications Qualifiers: Hypertension type: primary hypertension Qualified Code(s): I10 - Essential (primary) hypertension (4) COVID Current Visit: Yes Status: Acute Plan: Patient tested positive more than a week ago. The patient may do well with a short course of prednisone. She is on chronic prednisone for her copd. Discharge Plan: Home Plan to discharge in: 24 Hours Physician Review: Patient Assessed, Agree with Above Assessment and Plan Critical Care: No Time Spent Managing PTS Care (In Minutes): 15
[2021-05-07 13:58] VITALS: BP 117/70; TEMP 96.9
== END 2021-05-07 14:01 | disposition home or self-care (01) | DRG 177 ==
LOC: ER 16:29 → ERHOLD 18:31 → 4TH 22:22 → OBSVTOIN 05-05 22:01
PROVIDERS: ADMIT Internal Medicine; ATTEND Internal Medicine
DX: U07.1 COVID-19 (principal); I50.21 Acute systolic (congestive) heart failure; I11.0 Hypertensive heart disease with heart failure; I48.91 Unspecified atrial fibrillation; J44.9 Chronic obstructive pulmonary disease, unspecified; Z99.81 Dependence on supplemental oxygen; Z91.048 Other nonmedicinal substance allergy status; Z90.49 Acquired absence of other specified parts of digestive tract; Z98.51 Tubal ligation status; Z95.4 Presence of other heart-valve replacement; Z79.01 Long term (current) use of anticoagulants; Z79.52 Long term (current) use of systemic steroids; Z79.899 Other long term (current) drug therapy
CPT/HCPCS: 0240U; 36415; 71045; 80048; 80076; 83735; 83880; 84484; 85025; 85610; 93005; 99285; G0378; J1100; J1940; J2405; J7040

== ENCOUNTER 2021-06-01 19:13 | Inpatient (IN) | payer OTHER ==
--- OUTSIDE RECORDS SUMMARY | 2021-06-01 19:21 | XMS REPORT | Continuity of Care Document ---
:1955 Author Organization [facility] t Address [address] [place] [address] Care Team Providers Name Role Phone Megan Fall MD Primary Care Physician Sam PAULINO, K. Attending Clinician Antwan CHAMPION Attending Clinician Unavailable Enrico BLAND Attending Clinician Unavailable Flex Euceda MD Attending Clinician Halie HARRISON Attending Clinician Checo White Attending Clinician Samaria SALINAS Attending Clinician Milo SALINAS Attending Clinician Ted Mcclellan MD Attending Clinician Sultan Nascimento CRNA Attending Clinician Aneta Schmitz MD Attending Clinician [phone] Ron BLAND Attending Clinician Unavailable Evangelist CHAMPION Attending Clinician Unavailable Judi Adkins MD Attending Clinician Judi Harper APRN Attending Clinician Provider Attending Clinician Unavailable Ravinder SALINAS Attending Clinician Curtis CHAMPION Attending Clinician Unavailable Wilton Penaloza DO Attending Clinician RAVINDER Attending Clinician Unavailable Jack CHAMPION Attending Clinician Unavailable Doctor Unassigned, Name Attending Clinician Unavailable CARL LIANG Attending Clinician Unavailable Ulisses SALINAS, Y Attending Clinician 1, Lab Attending Clinician Unavailable FORCE Admitting Clinician Unavailable NITIN Admitting Clinician Unavailable Payers Payer Name Policy Type Policy Number Effective Date Expiration Date Karol gutierrez AARP/MEDICARE [id number] 2019 COMPLETE 00:00:00 Problems Condition Condition Condition Status Onset Resolution Last Treating Co mments Source Name Details Category Date Date Treatment Clinician Date [place] Chol[place]ocho Disease Active M ethodi lithiasis lithiasis 09-16 st 00:00: Hospita 00 l Calculus Calculus Disease Active Overview: Me thodi of of [address] gallbladde gallbladde 00:00: g of this Hospita r and bile r and bile 00 note l duct with duct with might be acute acute different cholecysti cholecysti from the tis, with tis, with original. obstructio obstructio Added n n automatic ally from request for surgery [id number] S/P MVR S/P MVR Disease Active Methodi (mitral (mitral 5-20 st valve valve 00:00: Hospita replacemen replacemen 00 l t) t) S/P TVR S/P TVR Disease Active Methodi (tricuspid (tricuspid 5-20 st valve valve 00:00: Hospita repair) repair) 00 l Severe Severe Disease Active Methodi mitral mitral 4-19 st regurgitat regurgitat 00:00: Ho spita ion ion 00 l Nonrheumat Nonrheumat Disease Active Overview : Methodi ic mitral ic mitral 3-29 Formattin s t valve valve 00:00: g of this Hospita regurgitat regurgitat 00 note l ion ion might be different from the original. Added automatic ally from request for surgery [id number] Nonrheumat Nonrheumat Disease Active Overview : Methodi ic ic 3-[address] tricuspid tricuspid 00:00: g of this H ospita valve valve 00 note l regurgitat regurgitat might be ion ion different from the original. Added automatic ally from request for surgery [id number] Acute on Acute on Disease Active Unive rs chronic chronic 6-15 [place] dical heart heart Branch failure failure Pulmonary Pulmonary Disease Active Uni vers embolism embolism 9-11 ity of 00:00: [place] [facility] Atrial Atrial Disease Active Univers fibrillati fibrillati 8-06 it y of on on 00:00: Medical Branch Obesity Obesity Disease Active Univers (BMI (BMI 8-06 ity of 30-39.9) 30-39.9) 00:00: [place] [facility] Chronic Chronic Disease Active Univers diastolic diastolic 8-04 ity [place] congest[place] heart 00 Medical failure failure Branch Persistent Persistent Disease Active U nivers atrial atrial 8-04 ity of fibrillati fibrillati [place] Pulmonary Pulmonary Disease Active Uni vers hypertensi hypertensi 8-04 it y of on on 00:00: [place] [facility] Complicati Complicati Disease Active U nivers on of on of 11-02 ity of preventive preventive 00:[place] medicine 00 Medica l procedure procedure Bran ch Rheumatoid Rheumatoid Disease Active Overview : Univers arthritis arthritis 5-21 ICD10 ity of 00:00: Diagnosis Term Medical Privacy Director Branch Utility 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 5-21 ity of 00:00: [place] [facility] Chest pain Chest pain Disease Active Overview : Univers 5-21 ICD10 ity of 00:00: Diagnosis Term Medical Privacy Director Branch Utility No known No known Disease [facility] active active [place] problems problems of Medicin e Allergies, Adverse Reactions, Alerts Allergy Allergy Status Severity Reaction(s) Onset Inactive Treating Comm ents Source Name Type Date Date Clinician Samuel Propensi Active GI Methodi ty to Intolerance 6-20 st adverse 00:00: Hospita reaction 00 l s to drug Codeine Propensi Active GI 2019-04 Methodi ty to Intolerance 1-16 st adverse 00:00: Hospita reaction 00 l s to drug Thiopent Propensi Active GI 2019-04 Nausea Method i al ty to Intolerance 1-[address] Sodium adverse 00:00: Vomiting Hospita reaction 00 l s to drug Povidone Propensi Active Hives 2019- Method i -Iodine ty to 1-16 st adverse 00:00: Hospita reaction 00 l s to drug CODEINE Allergy Active High 2019- [facility] Povidone Drug Active Hives 2019-[address] [facility] -Iodine Allergy 1-16 [facility] Center POVIDONE Allergy Active High Hives 2019- [facility] -I[facility]INE 1-16 [facility] 00 Center Codeine Drug Active Severe 2019- Other [facility] Allergy 1-16 reaction( [facility] - 00:[facility]: s): GI Medical 00 Intoleran Center ce Iodine Propensi Active 2018-04 [facility] Tincture ty to 0-09 [place] adverse 00:00: of reaction 00 Medicin s to e drug IODINE-I Allergy Active 2018-[address] SOPROPYL 0-09 [facility] - ALCOHOL 00:00: Medical 00 Center Iodine-I Drug Active 2018-[address] sopropyl Allergy 0-09 [facility] Alcohol 00:00: Medical 00 Center Avocado Propensi Active Other - See Pt Un ean ty to comments 11-04 reports ity of adverse 00:00: upset [place] reaction 00 stomach Medical s after Branch consumpti on but no n/v. Dexter Sapp [place] ext. [id number] AVOCADO DRUG Active Other-Cmnt Unive rs INGREDI 11-04 ity of 00:00: [place] 00 Medical Branch AVOCADO Allergy Active [facility] Avocado Drug Active Other [facility] Allergy 805 reaction( [facility] - 00:[facility]: s): Other Medical 00 - See Center commentsP t reports upset stomach after consumpti on but no n/v. Dexter Sapp RD ext. [id number] Iodine Propensi Active Hives topical Univers ty to 08-06 ity of adverse 00:00: [place] reaction 00 Medical s Branch IODINE DRUG Active Hives Univers INGREDI 08-06 ity of 00:00: [place] 00 Medical Branch IODINE Allergy Active Hives [facility] 08[facility] Center Iodine Drug Active Hives topical [facility] Allergy 5-07 [facility]: Medical 00 Center Family History Family Member Diagnosis Comments Start Date Stop Date Source Natural father No Known Problems Met [facility] [place] Natural mother No Known Problems Met [facility] [place] Social History Social Habit Start Date Stop Date Quantity Comments Source History of tobacco 1974-05-12 Cigarette Smoker [facility] use 00:00:00 Hospital History SDOH [facility] Alcohol Std Drinks Hospit al History SDAR [facility] Alcohol Binge Hospital Alcohol intake 2020-09-21 2020-09-21 0 /d [facility] 00:00:00 00:00:00 Hospital Cigarettes smoked 2020-07-14 2020-07-[address] current (pack per 00:00:00 00:00:00 Hospita day) - Reported Cigarette 2020-07-14 2020-07-14 Islam pack-years 00:00:00 00:00:00 Hospital Tobacco use and 2020-07-14 2020-07-14 Smokeless tobacco [facility]odist exposure 00:00:00 00:00:00 non-user Hospital Alcohol Comment 2020-07-14 2020-07-14 liquor 5-6 drinks Me [facility]ist 00:00:00 00:00:00 on weekends Hospital History SDOH 2020-06-23 2020-06-23 1 Islam Alcohol Frequency 00:00:00 00:00:00 Hospita l Sex Ass[birth year] At [birth year] BIJAL Patel kes - 00:00:00 00:00:00 Medical Center Smoking Status Start Date Stop Date Source Current every day 2020-03-03 00:00:00 BIJAL [facility] - Medical smoker Center Former smoker 2019-05-27 00:00:00 2019-05-27 00:00:00 [facility] Current some day 2019-01-08 00:00:00 [facility] Edgar ege of smoker Medicine Medications Ordered Filled Start Stop Current Ordering Indication Dosage Frequency Signature Comments Components Source Medication Medication Date Date Medication? Clinician (SIG) Name Name apixaban Yes 5mg Q.5D Take 5 mg Meth gallo (ELIQUIS) 5 6-[address] mg tablet 13:38: (two) Hospita 47 times a l day. tofacitinib Yes 11mg QD Take 11 mg Methodi 11 mg 6-[address] tablet 13:38: daily. Hospita extended 47 l release 24 hr sertraline Yes 50mg QD Take 50 mg M ethodi (ZOLOFT) 50 6-[address] MG tablet 13:38: every Hospita 47 morning. l buPROPion Yes 150mg QD Take 150 Met hodi XL 6-[address] (WELLBUTRIN 13:38: mouth Hospi ta XL) 150 MG 47 every l 24 hr morning. tablet albuterol Yes 2.5mg Q4H Take 2.5 Met hodi (ACCUNEB) 6-[address] 2.5 mg /3 13:38: nebulizati Ho spita mL (0.083 47 on every 4 l %) (four) nebulizer hours as solution needed for wheezing. albuterol Yes 2{puff} Inhale 2 M ethodi (PROAIR 6-[address] HFA) 90 13:38: needed for Hosp bi mcg/actuati 47 wheezing. l on inhaler metoprolol Yes 100mg Q.5D Take 100 Me thodi succinate 6-[address] XL 13:38: mouth 2 Hospita (TOPROL-XL) 47 (two) l 100 mg 24 times a hr tablet day. traMADoL 2020- [place] [id number] 50mg Q6H Take 50 mg M ethodi (ULTRAM) 50 6-23 06-[address] mg tablet 16:56: 00:00 every 6 Hosp bi 34 :00 (six) l hours as needed for moderate pain .acute pain. lidocaine [address] 1 Met hodi % adhesive 6-[address] patch,medic 00:00: the skin Ho spita ated 00 daily. l Remove and discard patch within 12 hours or as directed by physician. polyethylen 2020- No 34g Q24H Take 34 g Methodi e glycol 6- 07-[address] (MIRALAX) 00:00: 04:59 daily as Hos samy 17 gram 00 :00 needed for l packet constipati on for up to 10 days. psyllium 2020- No 1{packe Q.[id number] Take 1 Methodi husk 09-22 t} [id number] packet by st (METAMUCIL) 00:00: 04:59 3D mouth 3 Ho spita 6 gram 00 :00 (three) l packet times a day for 10 days. sennosides- 2020- No 2{tbl} Q.5D Take 2 M ethodi docusate 09-[address] sodium 00:00: 04:59 mouth 2 Hospita (SENOKOT-S) 00 :00 (two) l 8.6-50 mg times a per tablet day for 10 days. gabapentin 2020- No Take 1 Meth gallo (NEURONTIN) 09-[address] 300 mg 00:00: :59 (300 mg Hospita capsule 00 :00 total) by l mouth 2 (two) times a day for 2 days, THEN 1 capsule (300 mg total) nightly for 2 days. methocarbam No 500mg Q.25D Take 1 M ethodi oL 09-[address] (ROBAXIN) 00:00: :59 (500 mg Hosp bi 500 MG 00 :00 total) by l tablet mouth 4 (four) times a day as needed for muscle spasms for up [place] [id number] 1{tbl} Q8H Take 1 Methodi -acetaminop 09-[address] hen (NORCO) 00:00: 04:59 mouth Hosp bi 10-325 mg 00 :00 every 8 l per tablet (eight) hours as needed for moderate pain or severe pain for up to 3 days .acute pain. Max Daily Amount: 3 tablets levoFLOXaci 2020- No 750mg QD Take 1 Me thodi n 09-[address] (Levaquin) 00:00: 00:00 (750 mg Hos samy 750 MG 00 :00 total) by l tablet mouth daily for 2 days. metroNIDAZO 2020- No 500mg Q.[id number] Take 1 Methodi LE (FlagyL) 09-[id number] 500 MG 00:00: 00:00 3D (500 mg Hospita tablet 00 :00 total) by l mouth 3 (three) times a day for 2 days. fluticasone 2020- No QD Inhale Met hodi /umeclidin/ 09-16-[address] vilanter 08:50: 00:00 morning. Hosp bi (TRELEGY 20 :00 l ELLIPTA INHL) aspirin 81 2020- No 81mg QD Chew 1 Meth gallo mg chewable 07-28 tablet (81 s t tablet 00:00: 00:00 mg total) Hospi ta 00 :00 daily for l 90 days. sotaloL 2020- No 120mg Q.5D Take 120 Meth gallo (BETAPACE) 07-27 04-[address] 120 MG 16:34: 00:00 mouth 2 Hospita tablet 09 :00 (two) l times a day. digOXIN 2020- No 125ug QD Take 125 Meth gallo (LANOXIN) 07-27-[address] 125 mcg 16:34: 00:00 mouth Hospita (0.125 mg) 09 :00 every l tablet morning. furosemide 2020- No 40mg Q.5D Take 40 mg Methodi (LASIX) 40 07-27-[address] mg tablet 13:41: 00:00 (two) Hospit a 15 :00 times a l day. Can take up to 3 times a day if needed traMADoL 2020-0 2020- No [id number] 50mg Q6H Take 50 mg M ethodi (ULTRAM) 50 07-27-[address] mg tablet 13:41: 00:00 every 6 Hosp bi 15 :00 (six) l hours as needed for moderate pain .acute pain. furosemide 2020- No 40mg QD Take 1 Meth gallo (LASIX) 40 07-27-28 tablet (40 st mg tablet 00:00: 04:59 mg total) Ho spita 00 :00 by mouth l daily for 30 days. Can take up to 3 times a day if needed potassium 2020-0 2020- No 20meq QD Take 2 Meth gallo chloride 07-27-[address] (MICRO-K) 00:00: 04:59 (20 mEq Hosp bi 10 MEQ CR 00 :00 total) by l capsule mouth daily for 30 days. traMADoL 2020- [place] [id number] 50mg Q6H Take 1 Metho di (ULTRAM) 50 -27 05-03 tablet (50 s t mg tablet 00:00: 04:59 mg total) Ho spita 00 :00 by mouth l every 6 (six) hours as needed for moderate pain for up to 5 days .acute pain. nitrofurant 2020- No 100mg Q.5D Take 1 Me thodi oin, 4-15 -[address] macrocrysta 00:00: 00:00 (100 mg Ho spita l-monohydra 00 :00 total) by l te, mouth 2 (Macrobid) (two) 100 MG times a capsule day for 5 days. meloxicam 2020- No 15mg QD Take 15 mg M ethodi (MOBIC) 15 4-14 04-[address] mg tablet 13:53: 00:00 daily. Hospi ta 38 :00 l Advair Yes Methodi Diskus 4-14 st 250-50 00:00: Hospita mcg/dose 00 l DISKUS sotaloL 120 Yes [id number] 120mg Take 1 Univers mg tablet 3-22 tablet by ity o f 00:00: mouth [place] 00 every 12 Medical (twelve) Branch hours. tofacitinib 2019-04 Yes 11mg Take 11 mg [...] 00 every 12 Center (twelve) hours. digoxin 2020-1 Yes 125ug QD Take 125 [facility] (LANOXIN[facility] 1-04 [facility] - 0.125 MG 00:00: mouth Medical tablet 00 daily. Center traMADoL 2019-04 Yes 50mg Take [address] [facility] (ULTRAM) 50 0-30 by mouth Luke s - mg tablet 00:00: every 8 Medic al 00 (eight) Center hours as needed. sertraline 2019-[address] (ZOLOFT) 50 0-22 [facility] - MG tablet 00:00: Medical 00 Center Eliquis 5 2019-04 Yes 5mg Q.5D Take [address] [facility] MG tablet 0-17 by mouth 2 Luke s - 00:00: (two) Medical 00 times Center daily. buPROPion Yes TAKE [address] [facility] (WELLBUTRIN 9-24 TABLET BY Dee es - XL) 150 MG 00:00: MOUTH ONCE M edical 24 hr 00 DAILY IN Center tablet THE MORNING FOR 90 DAYS digoxin 125 Yes [id number] 125ug Take 1 Univers mcg (0.125 5-06 tablet by ity of mg) tablet 00:00: mouth [place] 00 daily. Medical Branch digoxin 125 Yes [id number] 125ug Take 1 Univers mcg (0.125 5-06 tablet by ity of mg) tablet 00:00: mouth [place] 00 daily. Medical Branch digoxin 125 0 Yes [id number] 125ug Take 1 Univers mcg (0.125 5-06 tablet by ity of mg) tablet 00:00: mouth [place] 00 daily. Medical Branch digoxin 125 0 Yes [id number] 125ug Take 1 Univers mcg (0.125 5-06 tablet by ity of mg) tablet 00:00: mouth [place] 00 daily. Medical Branch digoxin 125 2019-0 Yes [id number] 125ug Take 1 Univers mcg (0.125 5-06 tablet by ity of mg) tablet 00:00: mouth [place] 00 daily. Medical Branch predniSONE 2019-0 2020- No 5mg Take 5 mg U nivers 5 mg tablet 2-27 05-25 by mouth ity of 15:49: 00:00 daily. [place] 49 :00 Medical Branch predniSONE 2019-0 2020- No 5mg Take 5 mg U nivers 5 mg tablet 2-27 05-25 by mouth ity of 15:49: 00:00 daily. [place] 49 :00 Medical Branch buPROPion 2020-0 Yes 150mg Take 150 Uni vers SR 2-25 mg by ity of (WELLBUTRIN 15:49: mouth [place] SR) 150 mg 47 daily. Medical SR tablet Indication Bran ch s: 1tab Qam 2tabs Qpm SERTraline 2020-0 Yes 50mg Take 50 mg U nivers (ZOLOFT) 50 2-25 by mouth ity of mg tablet 15:49: daily. [address] Branch tofacitinib 2020-0 Yes 11mg Take 11 mg Univers (XELJANZ 2-25 by mouth. ity of XR) 11 mg 15:49: [place] [address] Medical Branch buPROPion 2020-0 Yes 150mg Take 150 Uni vers SR 2-25 mg by ity of (WELLBUTRIN 15:49: mouth [place] SR) 150 mg 47 daily. Medical SR tablet Indication Bran ch s: 1tab Qam 2tabs Qpm SERTraline 2020-0 Yes 50mg Take 50 mg U nivers (ZOLOFT) 50 2-25 by mouth ity of mg tablet 15:49: daily. [address] Branch tofacitinib 2020-0 Yes 11mg Take 11 mg Univers (XELJANZ 2-25 by mouth. ity of XR) 11 mg 15:49: [place] [address] Medical Branch buPROPion 2020-0 Yes 150mg Take 150 Uni vers SR 2-25 mg by ity of (WELLBUTRIN 15:49: mouth [place] SR) 150 mg 47 daily. Medical SR tablet Indication Bran ch s: 1tab Qam 2tabs Qpm SERTraline 2020-0 Yes 50mg Take 50 mg U nivers (ZOLOFT) 50 2-25 by mouth ity of mg tablet 15:49: daily. [address] Branch tofacitinib 2020-0 Yes 11mg Take 11 mg Univers (XELJANZ 2-25 by mouth. ity of XR) 11 mg 15:49: [address] Branch buPROPion 2020-0 Yes 150mg Take 150 Uni vers SR 2-25 mg by ity of (WELLBUTRIN 15:49: mouth [place] SR) 150 mg 47 daily. Medical SR tablet Indication Bran ch s: 1tab Qam 2tabs Qpm SERTraline 2020-0 Yes 50mg Take 50 mg U nivers (ZOLOFT) 50 2-25 by mouth ity of mg tablet 15:49: daily. [address] tofacitinib 2020-0 Yes 11mg Take 11 mg Univers (XELJANZ 2-25 by mouth. ity of XR) 11 mg 15:49: [address] buPROPion 2020-0 Yes 150mg Take 150 Uni vers SR 2-25 mg by ity of (WELLBUTRIN 15:49: mouth [place] SR) 150 mg 47 daily. Medical SR tablet Indication Bran ch s: 1tab Qam 2tabs Qpm SERTraline 2020-0 Yes 50mg Take 50 mg U nivers (ZOLOFT) 50 2-25 by mouth ity of mg tablet 15:49: daily. [address] tofacitinib 2019-0 Yes 11mg Take 11 mg Univers (XELJANZ 2-25 by mouth. ity of XR) 11 mg 15:49: [address] buPROPion 2019-0 Yes 150mg Take 150 Uni vers SR 2-25 mg by ity of (WELLBUTRIN 15:49: mouth [place] SR) 150 mg 47 daily. Medical SR tablet Indication Bran ch s: 1tab Qam 2tabs Qpm SERTraline 2019-0 Yes 50mg Take 50 mg U nivers (ZOLOFT) 50 2-25 by mouth ity of mg tablet 15:49: daily. [address] tofacitinib 2019-0 Yes 11mg Take 11 mg Univers (XELJANZ 2-25 by mouth. ity of XR) 11 mg 15:49: [address] buPROPion 2019-0 Yes 150mg Take 150 Uni vers SR 2-25 mg by ity of (WELLBUTRIN 15:49: mouth [place] SR) 150 mg 47 daily. Medical SR tablet Indication Bran ch s: 1tab Qam 2tabs Qpm SERTraline 2020-0 Yes 50mg Take 50 mg U nivers (ZOLOFT) 50 2-25 by mouth ity of mg tablet 15:49: daily. [address] tofacitinib 2020-0 Yes 11mg Take 11 mg Univers (XELJANZ 2-25 by mouth. ity of XR) 11 mg 15:49: [address] buPROPion 2020-0 Yes 150mg Take 150 Uni vers SR 2-25 mg by ity of (WELLBUTRIN 15:49: mouth [place] SR) 150 mg 47 daily. Medical SR tablet Indication Bran ch s: 1tab Qam 2tabs Qpm SERTraline 2020-0 Yes 50mg Take 50 mg U nivers (ZOLOFT) 50 2-25 by mouth ity of mg tablet 15:49: daily. [address] tofacitinib 2020-0 Yes 11mg Take 11 mg Univers (XELJANZ 2-25 by mouth. ity of XR) 11 mg 15:49: [address] Branch buPROPion 2019-0 Yes 150mg Take 150 Uni vers SR 2-25 mg by ity of (WELLBUTRIN 15:49: mouth [place] SR) 150 mg 47 daily. Medical SR tablet Indication Bran ch s: 1tab Qam 2tabs Qpm SERTraline 2020-0 Yes 50mg Take 50 mg U nivers (ZOLOFT) 50 2-25 by mouth ity of mg tablet 15:49: daily. [address] tofacitinib 2019-0 Yes 11mg Take 11 mg Univers (XELJANZ 2-25 by mouth. ity of XR) 11 mg 15:49: [address] Branch abatacept 2019-0 2020- No [id number] 125mg [...] Indication s: ARTHRITIS digoxin 125 2020-0 Yes [id number] 125ug Take 1 Univers mcg (0.125 2-25 tablet by ity of mg) tablet 00:00: mouth [place] 00 daily. Medical Branch furosemide 2020-0 Yes [id number] 40mg Take 1 Univers 40 mg 2-25 tablet by ity of tablet 00:00: mouth [place] 00 every Medical morning Branch and evening. sotalol 120 2020-0 Yes [id number] 120mg Take 1 Univers mg tablet 2-25 tablet by ity o f 00:00: mouth [place] 00 every 12 Medical (twelve) Branch hours. apixaban 5 2020-0 Yes [id number] 5mg Take 1 Unive rs mg tablet 2-25 tablet by ity o f 00:00: mouth 2 [place] 00 (two) Medical times Branch daily. Indication s: atrial fibrillati on KCL 20 mEq 2020-0 Yes [id number] 20meq Take 1 Univers tablet 2-25 tablet by ity of 00:00: mouth [place] 00 daily. Medical Branch digoxin 125 2020-0 Yes [id number] 125ug Take 1 Univers mcg (0.125 2-25 tablet by ity of mg) tablet 00:00: mouth [place] 00 daily. Medical Branch furosemide 2020-0 Yes [id number] 40mg Take 1 Univers 40 mg 2-25 tablet by ity of tablet 00:00: mouth [place] 00 every Medical morning Branch and evening. sotalol 120 2020-0 Yes [id number] 120mg Take 1 Univers mg tablet 2-25 tablet by ity o f 00:00: mouth [place] 00 every 12 Medical (twelve) Branch hours. apixaban 5 2020-0 Yes 1358 5mg Take 1 Unive rs mg tablet 2-25 tablet by ity o f 00:00: mouth 2 [place] 00 (two) Medical times Branch daily. Indication s: atrial fibrillati on KCL 20 mEq 2020-0 Yes [id number] 20meq Take 1 Univers tablet 2-25 tablet by ity of 00:00: mouth [place] 00 daily. Medical Branch digoxin 125 2020-0 Yes [id number] 125ug Take 1 Univers mcg (0.125 2-25 tablet by ity of mg) tablet 00:00: mouth [place] 00 daily. Medical Branch furosemide 2020-0 Yes [id number] 40mg Take 1 Univers 40 mg 2-25 tablet by ity of tablet 00:00: mouth [place] 00 every Medical morning Branch and evening. sotalol 120 2020-0 Yes [id number] 120mg Take 1 Univers mg tablet 2-25 tablet by ity o f 00:00: mouth [place] 00 every 12 Medical (twelve) Branch hours. apixaban 5 2020-0 Yes 1358 5mg Take 1 Unive rs mg tablet 2-25 tablet by ity o f 00:00: mouth 2 [place] 00 (two) Medical times Branch daily. Indication s: atrial fibrillati on KCL 20 mEq 2020-0 Yes [id number] 20meq Take 1 Univers tablet 2-25 tablet by ity of 00:00: mouth [place] 00 daily. Medical Branch digoxin 125 2020-0 Yes [id number] 125ug Take 1 Univers mcg (0.125 2-25 tablet by ity of mg) tablet 00:00: mouth [place] 00 daily. Medical Branch furosemide 2020-0 Yes [id number] 40mg Take 1 Univers 40 mg 2-25 tablet by ity of tablet 00:00: mouth [place] 00 every Medical morning Branch and evening. sotalol 120 2020-0 Yes [id number] 120mg Take 1 Univers mg tablet 2-25 tablet by ity o f 00:00: mouth [place] 00 every 12 Medical (twelve) Branch hours. apixaban 5 2020-0 Yes 1358 5mg Take 1 Unive rs mg tablet 2-25 tablet by ity o f 00:00: mouth 2 [place] 00 (two) Medical times Branch daily. Indication s: atrial fibrillati on KCL 20 mEq 2020-0 Yes [id number] 20meq Take 1 Univers tablet 2-25 tablet by ity of 00:00: mouth [place] 00 daily. Medical Branch furosemide 2020-0 Yes [id number] 40mg Take 1 Univers 40 mg 2-25 tablet by ity of tablet 00:00: mouth [place] 00 every Medical morning Branch and evening. sotalol 120 2020-0 Yes [id number] 120mg Take 1 Univers mg tablet 2-25 tablet by ity o f 00:00: mouth [place] 00 every 12 Medical (twelve) Branch hours. apixaban 5 2020-0 Yes 1358 5mg Take 1 Unive rs mg tablet 2-25 tablet by ity o f 00:00: mouth 2 [place] 00 (two) Medical times Branch daily. Indication s: atrial fibrillati on KCL 20 mEq 2020-0 Yes [id number] 20meq Take 1 Univers tablet 2-25 tablet by ity of 00:00: mouth [place] 00 daily. Medical Branch furosemide 2020-0 Yes [id number] 40mg Take 1 Univers 40 mg 2-25 tablet by ity of tablet 00:00: mouth [place] 00 every Medical morning Branch and evening. sotalol 120 2020-0 Yes [id number] 120mg Take 1 Univers mg tablet 2-25 tablet by ity o f 00:00: mouth [place] 00 every 12 Medical (twelve) Branch hours. apixaban 5 2020-0 Yes 1358 5mg Take 1 Unive rs mg tablet 2-25 tablet by ity o f 00:00: mouth 2 [place] 00 (two) Medical times Branch daily. Indication s: atrial fibrillati on KCL 20 mEq 2020-0 Yes [id number] 20meq Take 1 Univers tablet 2-25 tablet by ity of 00:00: mouth [place] 00 daily. Medical Branch furosemide 2020-0 Yes [id number] 40mg Take 1 Univers 40 mg 2-25 tablet by ity of tablet 00:00: mouth [place] 00 every Medical morning Branch and evening. sotalol 120 2020-0 Yes [id number] 120mg Take 1 Univers mg tablet 2-25 tablet by ity o f 00:00: mouth [place] 00 every 12 Medical (twelve) Branch hours. apixaban 5 2020-0 Yes 1358 5mg Take 1 Unive rs mg tablet 2-25 tablet by ity o f 00:00: mouth 2 [place] 00 (two) Medical times Branch daily. Indication s: atrial fibrillati on KCL 20 mEq 2020-0 Yes [id number] 20meq Take 1 Univers tablet 2-25 tablet by ity of 00:00: mouth [place] 00 daily. Medical Branch furosemide 2020-0 Yes [id number] 40mg Take 1 Univers 40 mg 2-25 tablet by ity of tablet 00:00: mouth [place] 00 every Medical morning Branch and evening. sotalol 120 2020-0 Yes [id number] 120mg Take 1 [facility] mg tablet 2-25 tablet by ity o f 00:00: mouth [place] 00 every 12 Medical (twelve) Branch hours. apixaban 5 2020-0 Yes 1358 5mg Take 1 [facility] mg tablet 2-25 tablet by ity o f 00:00: mouth 2 [place] 00 (two) Medical times Branch daily. Indication s: atrial fibrillati on KCL 20 mEq 2020-0 Yes [id number] 20meq Take 1 [facility] tablet 2-25 tablet by ity of 00:00: mouth [place] 00 daily. Medical Branch furosemide 2020-0 Yes [id number] 40mg Take 1 [facility] 40 mg 2-25 tablet by ity of tablet 00:00: mouth [place] 00 every Medical morning Branch and evening. apixaban 5 2020-0 Yes 1358 5mg Take 1 [facility] mg tablet 2-25 tablet by ity o f 00:00: mouth 2 [place] 00 (two) Medical times Branch daily. Indication s: atrial fibrillati on KCL 20 mEq 2020-0 Yes [id number] 20meq Take 1 [facility] tablet 2-25 tablet by ity of 00:00: mouth [place] 00 daily. Medical Branch furosemide Yes 40mg Take [address] (LASIX) 40 2-25 by mouth. [facility] - [facility] tablet 00:00: [facility] 00 [facility] potassium 2020-0 Yes 20meq Take [address] [facility] chloride SA 2-25 mEq by [facility] - (K-DUR,KLOR 00:00: mouth. Medi nicoals -CON) 20 00 Center MEQ tablet sotalol 120 2020- No [id number] 120mg Take 1 [facility] mg tablet 2-25 03-22 tablet by ity of 00:00: 00:00 mouth [place] 00 :00 every 12 Medical (twelve) Branch hours. digoxin 125 2019- No [id number] 125ug Take 1 [facility] mcg (0.125 2-25 05-06 tablet by ity of mg) tablet 00:00: 00:00 mouth [place] 00 :00 daily. Medical Branch furosemide Yes [id number] 40mg Take 1 [facility] 40 mg 2-15 tablet by ity of tablet 00:00: mouth [place] 00 every Medical morning Branch and evening. Take 40 mg in AM and 20 mg in PM digoxin 125 0 Yes 125ug Take 1 [facility] vers mcg (0.125 2-15 tablet by ity of mg) tablet 00:00: mouth [place] 00 daily. Medical Branch sotalol 120 Yes [id number] 120mg Take 1 [facility] mg tablet 2-15 tablet by ity o f 00:00: mouth [place] 00 every 12 Medical (twelve) Branch hours. apixaban 5 2019-0 Yes 1358 5mg Take 1 [facility] mg tablet 2-15 tablet by ity o f 00:00: mouth 2 [place] 00 (two) Medical times Branch daily. Indication s: atrial fibrillati on furosemide 0 2019- No [id number] 40mg Take 1 [facility] 40 mg 2-15 [...] 00 :00 daily. Medical Branch sotalol 120 2019-0 2020- No [id number] 120mg Take 1 [facility] mg tablet 2-15 -25 tablet by ity of 00:00: 00:00 mouth [place] 00 :00 every 12 Medical (twelve) Branch hours. apixaban 5 2019-0 2020- No 1358 5mg Take 1 [facility] ers mg tablet 2-15 -25 tablet by ity of 00:00: 00:00 mouth 2 [place] 00 :00 (two) Medical times Branch daily. Indication s: atrial fibrillati on furosemide 2019-0 2020- No [id number] 40mg Take 1 [facility] 40 mg 2-15 -25 tablet by ity of tablet 00:00: 00:00 mouth [place] 00 :00 every Medical morning Branch and evening. Take 40 mg in AM and 20 mg in PM digoxin 125 2019-0 2020- No 125ug Take 1 [facility] mcg (0.125 2-15 -25 tablet by ity of mg) tablet 00:00: 00:00 mouth [place] 00 :00 daily. Medical Branch sotalol 120 0 2019- No [id number] 120mg Take 1 [facility] mg tablet -15 -25 tablet by ity of 00:00: 00:00 mouth [place] 00 :00 every 12 Medical (twelve) Branch hours. apixaban 5 2019-0 2020- No 1358 5mg Take 1 [facility] ers mg tablet 2-15 -25 tablet by ity of 00:00: 00:00 mouth 2 [place] 00 :00 (two) Medical times Branch daily. Indication s: atrial fibrillati on furosemide 2020-0 Yes [id number] 40mg Take 1 [facility] 40 mg 2-13 tablet by ity of tablet 00:00: mouth [place] 00 every Medical morning Branch and evening. digoxin 125 2020-0 Yes 125ug Take 1 [facility] vers mcg (0.125 2-13 tablet by ity of mg) tablet 00:00: mouth [place] 00 daily. Medical Branch apixaban 5 2019-0 Yes 1358 5mg Take 1 [facility] mg tablet 2-13 tablet by ity o f 00:00: mouth 2 [place] 00 (two) Medical times Branch daily. Indication s: atrial fibrillati on furosemide 2019-0 2020- No [id number] 40mg Take 1 [facility] 40 mg 2-13 02-25 tablet by ity of tablet 00:00: 00:00 mouth [place] 00 :00 every Medical morning Branch and evening. digoxin 125 2019-2019- No 125ug Take 1 [facility] mcg (0.125 2-15 05-25 tablet by ity of mg) tablet 00:00: 00:00 mouth [place] 00 :00 daily. Medical Branch apixaban 5 2019- No 1358 5mg Take 1 [facility] ers mg tablet -15 05-25 tablet by ity of 00:00: 00:00 mouth 2 [place] 00 :00 (two) Medical times Branch daily. Indication s: atrial fibrillati on furosemide 2019-2019- No [id number] 40mg Take 1 [facility] 40 mg -15 05-25 tablet by ity of tablet 00:00: 00:00 mouth [place] 00 :00 every Medical morning Branch and evening. digoxin 125 2019- No 125ug Take 1 [facility] mcg (0.125 05-15-25 tablet by ity of mg) tablet 00:00: 00:00 mouth [place] 00 :00 daily. Medical Branch apixaban 5 2019- No 1358 5mg Take 1 [facility] ers mg tablet 05-15-25 tablet by ity of 00:00: 00:00 mouth 2 [place] 00 :00 (two) Medical times Branch daily. Indication s: atrial fibrillati on apixaban 5 2019- Yes 1358 5mg Take 1 [facility] mg tablet 1-15 tablet by ity o f 00:00: mouth 2 [place] 00 (two) Medical times Branch daily. Indication s: atrial fibrillati on apixaban 5 2019- No 1358 5mg Take 1 [facility] ers mg tablet 1-15 -13 tablet by ity of 00:00: 00:00 mouth 2 [place] 00 :00 (two) Medical times Branch daily. Indication s: atrial fibrillati on sotalol 120 2018-04 Yes [id number] 120mg Take 1 [facility] mg tablet 2-11 tablet by ity o f 00:00: mouth [place] 00 every 12 Medical (twelve) Branch hours. sotalol 120 2018-04 Yes [id number] 120mg Take 1 [facility] mg tablet 2-11 tablet by ity o f 00:00: mouth [place] 00 every 12 Medical (twelve) Branch hours. sotalol 120 2018-04 2020- No [id number] 120mg Take 1 [facility] mg tablet 05-13 tablet by ity of 00:00: 00:00 mouth [place] 00 :00 every 12 Medical (twelve) Branch hours. apixaban 5 2018-04 2020- No 1358 5mg Take 1 [facility] ers mg tablet 05-13 tablet by ity of 00:00: 00:00 mouth [...] DAILY e buPROPion 2018-04 Yes TAKE 1 [facility] (WELLBUTRIN 0-07 TABLET BY [facility] ) 150 MG XL 00:00: MOUTH ONCE of tablet 00 DAILY Medicin e tramadol 2018-04 Yes TAKE 1 [facility] (ULTRAM) 50 0-02 TABLET BY [facility] MG tablet 00:00: MOUTH of 00 EVERY 8 Medicin HOURS e NEEDED MAY MAKE DROWSY PENNSAID 2 Yes APPLY 2 [facility] % SOLN 12-23 PUMP BY [facility] 00:00: TOPICAL of 00 ROUTE 2 Medicin TIMES e EVERY DAY TO THE AFFECTED JOINT digoxin Yes [facility] (LANOXIN) - [facility] 125 MCG 00:00: of tablet 00 Medicin e digoxin 125 Yes 125ug Take 1 [facility] vers mcg tablet 13 tablet by ity of 00:00: mouth [place] 00 daily. Medical Branch digoxin 125 2019-0 Yes 125ug Take 1 [facility] vers mcg tablet 9-13 tablet by ity of 00:00: mouth [place] 00 daily. Medical Branch digoxin 125 2019-0 Yes 125ug Take 1 [facility] vers mcg tablet 9-13 tablet by ity of 00:00: mouth [place] 00 daily. Medical Branch digoxin 125 2018-0 2020- No 125ug Take 1 [facility] ean mcg tablet 9-13 02-13 tablet by ity of 00:00: 00:00 mouth [place] 00 :00 daily. Medical Branch furosemide Yes 40mg Take 40 mg [facility] (LASIX) 40 9-05 by mouth. [facility] MG tablet 00:00: of 00 Medicin e furosemide Yes [id number] 40mg Take 1 [facility] 40 mg 9-05 tablet by ity of tablet 00:00: mouth [place] 00 every Medical morning Branch and evening. Take 40 mg in AM and 20 mg in PM furosemide Yes [id number] 40mg Take 1 [facility] 40 mg 9-05 tablet by ity of tablet 00:00: mouth [place] 00 every Medical morning Branch and evening. Take 40 mg in AM and 20 mg in PM furosemide Yes [id number] 40mg Take 1 [facility] 40 mg 9-05 tablet by ity of tablet 00:00: mouth [place] 00 every Medical morning Branch and evening. Take 40 mg in AM and 20 mg in PM furosemide Yes [id number] 40mg Take 1 [facility] 40 mg 9-05 tablet by ity of tablet 00:00: mouth [place] 00 every Medical morning Branch and evening. Take 40 mg in AM and 20 mg in PM furosemide Yes [id number] 40mg Take 1 [facility] 40 mg 9-05 tablet by ity of tablet 00:00: mouth [place] 00 every Medical morning Branch and evening. Take 40 mg in AM and 20 mg in PM furosemide Yes [id number] 40mg Take 1 [facility] 40 mg 9-05 tablet by ity of tablet 00:00: mouth [place] 00 every Medical morning Branch and evening. Take 40 mg in AM and 20 mg in PM furosemide 0 2020- No [id number] 40mg Take 1 [facility] 40 mg 9-05 02-13 tablet by ity of tablet 00:00: 00:00 mouth [place] 00 :00 every Medical morning Branch and evening. Take 40 mg in AM and 20 mg in PM sotalol Yes TAKE 1 [facility] (BETAPACE) 9-03 TABLET BY [facility] 120 MG 00:00: MOUTH of tablet 00 EVERY 12 Medicin HOURS e furosemide Yes [id number] 40mg Take 1 [facility] 40 mg 8-16 tablet by ity of tablet 00:00: mouth [place] 00 every Medical morning Branch and evening. Take 40 mg in AM and 20 mg in PM furosemide Yes [id number] 40mg Take 1 [facility] 40 mg 8-16 tablet by ity of tablet 00:00: mouth [place] 00 every Medical morning Branch and evening. Take 40 mg in AM and 20 mg in PM furosemide 2019- No [id number] 40mg Take 1 [facility] 40 mg 8-16 [...] [place] 00 daily. Medical Branch digoxin 125 2019- No 125ug Take 1 [facility] mcg tablet 7-15 09-13 tablet by ity of 00:00: 00:00 mouth [place] 00 :00 daily. Medical Branch furosemide 2019- No [id number] Take 40 mg [facility] 40 mg 7-15 08-16 in AM and ity of tablet 00:00: 00:00 20 mg in [place] 00 :00 PM Medical Branch apixaban 5 Yes 5mg Take 1 [facility] mg tablet 5-02 tablet by ity o f 00:00: mouth 2 [place] 00 (two) Medical times Branch daily. apixaban 5 Yes 5mg Take 1 [facility] mg tablet 5-02 tablet by ity o f 00:00: mouth 2 00 (two) Medical times Branch daily. apixaban 5 2019-0 Yes 5mg Take 1 [facility] mg tablet 5-02 tablet by ity o f 00:00: mouth 2 (two) Medical times Branch daily. apixaban 5 2019-0 Yes 5mg Take 1 [facility] rs mg tablet 5-02 tablet by ity o f 00:00: mouth 2 (two) Medical times Branch daily. apixaban 5 2019-0 Yes 5mg Take 1 [facility] rs mg tablet 5-02 tablet by ity o f 00:00: mouth 2 (two) Medical times Branch daily. apixaban 5 2019-0 Yes 5mg Take 1 [facility] rs mg tablet 5-02 tablet by ity o f 00:00: mouth 2 (two) Medical times Branch daily. apixaban 5 2019-0 Yes 5mg Take 1 [facility] rs mg tablet 5-02 tablet by ity o f 00:00: mouth 2 (two) Medical times Branch daily. apixaban 5 2019-0 Yes 5mg Take 1 [facility] rs mg tablet 5-02 tablet by ity o f 00:00: mouth 2 (two) Medical times Branch daily. sotalol 120 [...] 12 Medical (twelve) Branch hours. sotalol 120 Yes 120mg Take 1 [facility] vers mg tablet 4-18 tablet by ity o f 00:00: mouth [place] 00 every 12 Medical (twelve) Branch hours. sotalol 120 Yes 120mg Take 1 [facility] vers mg [...] mouth ity of mg tablet 13:13: daily. [address] abatacept Yes 2506 125mg inject 125 [facility] nivers (ORENCIA) 4-15 mg under ity of 125 mg/mL 13:13: [place] injection 02 every Medical Sunday. Branch Indication s: ARTHRITIS meloxicam Yes 15mg Take 15 mg [facility] 15 mg 4-15 by mouth ity of tablet 13:13: daily. [address] predniSONE Yes 5mg Take 5 mg [facility] 5 mg tablet 4-15 by mouth ity of 13:13: daily. [address] tofacitinib Yes 11mg Take 11 mg [facility] (XELJANZ 4-15 by mouth. ity of XR) 11 mg 13:13: [place] Tb24 [address] [place] [address] Branch buPROPion Yes 150mg Take 150 [facility] vers SR 4-15 mg by ity of (WELLBUTRIN 13:13: mouth [place] SR) 150 mg 02 daily. Medical SR tablet Indication Bran ch s: 1tab Qam 2tabs Qpm SERTraline Yes 50mg Take 50 mg U nivers (ZOLOFT) 50 4-15 by mouth ity of mg tablet 13:13: daily. [address] abatacept Yes 2506 125mg inject 125 [facility] nivers (ORENCIA) 4-15 mg under ity of 125 mg/mL 13:13: the [place] injection 02 every Sunday. Branch Indication s: ARTHRITIS meloxicam 20190 Yes 15mg Take 15 mg [facility] e[facility] 15 mg 4-15 by mouth ity of tablet 13:13: daily. [address] predniSONE [address] Yes 5mg Take 5 mg [facility] 5 mg tablet 4-15 by mouth ity of 13:13: daily. [address] tofacitinib 2019 Yes 11mg Take 11 mg [facility] (XELJANZ 4-15 by mouth. ity of XR) 11 mg 13:13: [address] buPROPion 2019 Yes 150mg Take 150 [facility] vers SR 4-15 mg by ity of (WELLBUTRIN 13:13: mouth [place] SR) 150 mg 02 daily. Medical SR tablet Indication Bran ch s: 1tab Qam 2tabs Qpm SERTraline Yes 50mg Take 50 mg U nivers (ZOLOFT) 50 4-15 by mouth ity of mg tablet 13:13: daily. [address] abatacept Yes 2506 125mg inject 125 U nivers (ORENCIA) 4-15 mg under ity of 125 mg/mL 13:13: the [place] injection 02 every Sunday. Branch Indication s: ARTHRITIS meloxicam 2019 Yes 15mg Take 15 mg [facility] e[facility] 15 mg 4-15 by mouth ity of tablet 13:13: daily. [address] predniSONE [address] Yes 5mg Take 5 mg [facility] 5 mg tablet 4-15 by mouth ity of 13:13: daily. [address] tofacitinib Yes 11mg Take 11 mg [facility] (XELJANZ 4-15 by mouth. ity of XR) 11 mg 13:13: [address] buPROPion Yes 150mg Take 150 [facility] vers SR 4-15 mg by ity of (WELLBUTRIN 13:13: mouth [place] SR) 150 mg 02 daily. Medical SR tablet Indication Bran ch s: 1tab Qam 2tabs Qpm SERTraline 2019 Yes 50mg Take 50 mg [facility] nivers (ZOLOFT) 50 4-15 by mouth ity of mg tablet 13:13: daily. [address] abatacept 2019 Yes 2506 125mg inject 125 [facility] nivers (ORENCIA) 4-15 mg under ity of 125 mg/mL 13:13: the [place] injection 02 every Sunday. Branch Indication s: ARTHRITIS meloxicam 2019 Yes 15mg Take 15 mg [facility] e[facility] 15 mg 4-15 by mouth ity of tablet 13:13: daily. [address] predniSONE 2019 Yes 5mg Take 5 mg [facility] 5 mg tablet 4-15 by mouth ity of 13:13: daily. [address] tofacitinib Yes 11mg Take 11 mg [facility] (XELJANZ 4-15 by mouth. ity of XR) 11 mg 13:13: [address] buPROPion Yes 150mg Take 150 [facility] vers SR 4-15 mg by ity of (WELLBUTRIN 13:13: mouth [place] SR) 150 mg 02 daily. Medical SR tablet Indication Bran ch s: 1tab Qam 2tabs Qpm SERTraline Yes 50mg Take 50 mg U nivers (ZOLOFT) 50 4-15 by mouth ity of mg tablet 13:13: daily. [address] abatacept Yes 2506 125mg inject 125 U nivers (ORENCIA) 4-15 mg under ity of 125 mg/mL 13:13: [place] injection 02 every Sunday. Branch Indication s: ARTHRITIS meloxicam 2019 Yes 15mg Take 15 mg [facility] e[facility] 15 mg 4-15 by mouth ity of tablet 13:13: daily. [address] predniSONE [address] Yes 5mg Take 5 mg [facility] 5 mg tablet 4-15 by mouth ity of 13:13: daily. [address] tofacitinib Yes 11mg Take 11 mg [facility] (XELJANZ 4-15 by mouth. ity of XR) 11 mg 13:13: [address] buPROPion 0 Yes 150mg Take 150 [facility] vers SR 4-15 mg by ity of (WELLBUTRIN 13:13: mouth [place] SR) 150 mg 02 daily. Medical SR tablet Indication Bran ch s: 1tab Qam 2tabs Qpm SERTraline Yes 50mg Take 50 mg U nivers (ZOLOFT) 50 4-15 by mouth ity of mg tablet 13:13: daily. [address] abatacept 2019 Yes 2506 125mg inject 125 U nivers (ORENCIA) 4-15 mg under ity of 125 mg/mL 13:13: the [place] injection 02 every Sunday. Branch Indication s: ARTHRITIS meloxicam 2019 Yes 15mg Take 15 mg Un ean 15 mg 4-15 by mouth ity of tablet 13:13: daily. [address] predniSONE Yes 5mg Take 5 mg [facility] 5 mg tablet 4-15 by mouth ity of 13:13: daily. [address] tofacitinib Yes 11mg Take 11 mg [facility] (XELJANZ 4-15 by mouth. ity of XR) 11 mg 13:13: [address] buPROPion Yes 150mg Take 150 Uni vers SR 4-15 mg by ity of (WELLBUTRIN 13:13: mouth [place] SR) 150 mg 02 daily. Medical SR tablet Indication Bran ch s: 1tab Qam 2tabs Qpm SERTraline Yes 50mg Take 50 mg U nivers (ZOLOFT) 50 4-15 by mouth ity of mg tablet 13:13: daily. [address] abatacept Yes 2506 125mg inject 125 U nivers (ORENCIA) 4-15 mg under ity of 125 mg/mL 13:13: the [place] injection 02 every Sunday. Branch Indication s: ARTHRITIS meloxicam 2019 Yes 15mg Take 15 mg Un e[facility] 15 mg 4-15 by mouth ity of tablet 13:13: daily. [address] predniSONE Yes 5mg Take 5 mg [facility] e[facility] 5 mg tablet 4-15 by mouth ity of 13:13: daily. [address] tofacitinib Yes 11mg Take 11 mg [facility] (XELJANZ 4-15 by mouth. ity of XR) 11 mg 13:13: [address] buPROPion Yes 150mg Take 150 Uni vers SR 4-15 mg by ity of (WELLBUTRIN 13:13: mouth [place] SR) 150 mg 02 daily. Medical SR tablet Indication Bran ch s: 1tab Qam 2tabs Qpm SERTraline Yes 50mg Take 50 mg U nivers (ZOLOFT) 50 4-15 by mouth ity of mg tablet 13:13: daily. [address] abatacept 2019 Yes 2506 125mg inject 125 U nivers (ORENCIA) 4-15 mg under ity of 125 mg/mL 13:13: the [place] injection 02 every Sunday. Branch Indication s: ARTHRITIS meloxicam 2019 Yes 15mg Take 15 mg [facility] e[facility] 15 mg 4-15 by mouth ity of tablet 13:13: daily. [address] predniSONE Yes 5mg Take 5 mg [facility] e[facility] 5 mg tablet 4-15 by mouth ity of 13:13: daily. [address] tofacitinib Yes 11mg Take 11 mg [facility] (XELJANZ 4-15 by mouth. ity of XR) 11 mg 13:13: [address] meloxicam Yes 15mg Take 15 mg [facility] e[facility] 15 mg 4-15 by mouth ity of tablet 13:13: daily. [address] buPROPion Yes 150mg Take 150 Uni vers SR 4-15 mg by ity of (WELLBUTRIN 13:13: mouth [place] SR) 150 mg 02 daily. Medical SR tablet Indication Bran ch s: 1tab Qam 2tabs Qpm SERTraline Yes 50mg Take 50 mg U nivers (ZOLOFT) 50 4-15 by mouth ity of mg tablet 13:13: daily. [address] abatacept Yes 2506 125mg inject 125 U nivers (ORENCIA) 4-15 mg under ity of 125 mg/mL 13:13: the [place] injection 02 every Sunday. Branch Indication s: ARTHRITIS meloxicam 2019 Yes 15mg Take 15 mg Un ean 15 mg 4-15 by mouth ity of tablet 13:13: daily. [address] meloxicam 0 Yes 15mg Take 15 mg [facility] e[facility] 15 mg 4-15 by mouth ity of tablet 13:13: daily. [address] predniSONE 2019 Yes 5mg Take 5 mg [facility] e[facility] 5 mg tablet 4-15 by mouth ity of 13:13: daily. [address] meloxicam Yes 15mg Take 15 mg [facility] e[facility] 15 mg 4-15 by mouth ity of tablet 13:13: daily. [address] tofacitinib Yes 11mg Take 11 mg [facility] (XELJANZ 4-15 by mouth. ity of XR) 11 mg 13:13: [address] meloxicam Yes 15mg Take 15 mg Un ean 15 mg 4-15 by mouth ity of tablet 13:13: daily. [address] meloxicam Yes 15mg Take 15 mg [facility] e[facility] 15 mg 4-15 by mouth ity of tablet 13:13: daily. [address] meloxicam Yes 15mg Take 15 mg [facility] e[facility] 15 mg 4-15 by mouth ity of tablet 13:13: daily. [address] meloxicam Yes 15mg Take 15 mg Un e[facility] 15 mg 4-15 by mouth ity of tablet 13:13: daily. [address] meloxicam Yes 15mg Take 15 mg [facility] 15 mg 4-15 by mouth ity of tablet 13:13: daily. [address] meloxicam Yes 15mg Take 15 mg [facility] e[facility] 15 mg 4-15 by mouth ity of tablet 13:13: daily. [address] buPROPion Yes 150mg Take 150 Uni vers SR 4-15 mg by ity of (WELLBUTRIN 13:13: mouth [place] SR) 150 mg 02 daily. Medical SR tablet Indication Bran ch s: 1tab Qam 2tabs Qpm SERTraline Yes 50mg Take 50 mg U nivers (ZOLOFT) 50 4-15 by mouth ity of mg tablet 13:13: daily. [address] abatacept Yes 2506 125mg inject 125 U nivers (ORENCIA) 4-15 mg under ity of 125 mg/mL 13:13: the [place] injection 02 every Medical Sunday. Branch Indication s: ARTHRITIS meloxicam Yes 15mg Take 15 mg Un e[facility] 15 mg 4-15 by mouth ity of tablet 13:13: daily. [address] predniSONE 2019-0 Yes 5mg Take 5 mg [facility] 5 mg tablet 4-15 by mouth ity of 13:13: daily. [address] tofacitinib Yes 11mg Take 11 mg [facility] (XELJANZ 4-15 by mouth. ity of XR) 11 mg 13:13: [address] buPROPion Yes 150mg Take 150 Uni vers SR 4-15 mg by ity of (WELLBUTRIN 13:13: mouth [place] SR) 150 mg 02 daily. Medical SR tablet Indication Bran ch s: 1tab Qam 2tabs Qpm SERTraline Yes 50mg Take 50 mg U nivers (ZOLOFT) 50 4-15 by mouth ity of mg tablet 13:13: daily. [address] abatacept Yes 2506 125mg inject 125 [facility] nivers (ORENCIA) 4-15 mg under ity of 125 mg/mL 13:13: the [place] injection 02 every Sunday. Branch Indication s: ARTHRITIS meloxicam 2019 Yes 15mg Take 15 mg [facility] e[facility] 15 mg 4-15 by mouth ity of tablet 13:13: daily. [address] predniSONE Yes 5mg Take 5 mg [facility] 5 mg tablet 4-15 by mouth ity of 13:13: daily. [address] tofacitinib Yes 11mg Take 11 mg [facility] (XELJANZ 4-15 by mouth. ity of XR) 11 mg 13:13: [address] buPROPion Yes 150mg Take 150 Uni vers SR 4-15 mg by ity of (WELLBUTRIN 13:13: mouth [place] SR) 150 mg 02 daily. Medical SR tablet Indication Bran ch s: 1tab Qam 2tabs Qpm SERTraline Yes 50mg Take 50 mg [facility] nivers (ZOLOFT) 50 4-15 by mouth ity of mg tablet 13:13: daily. [address] abatacept 2019 Yes 2506 125mg inject 125 [facility] nivers (ORENCIA) 4-15 mg under ity of 125 mg/mL 13:13: the [place] injection 02 every Sunday. Branch Indication s: ARTHRITIS meloxicam 2019-0 Yes 15mg Take 15 mg [facility] e[facility] 15 mg 4-15 by mouth ity of tablet 13:13: daily. [address] Branch predniSONE 2019-0 Yes 5mg Take 5 mg [facility] e[facility] 5 mg tablet 4-15 by mouth ity of 13:13: daily. [address] Branch tofacitinib 2019-0 Yes 11mg Take 11 mg [facility] (XELJANZ 4-15 by mouth. ity of XR) 11 mg 13:13: [place] Tb[address] [place] [address] Branch sucralfate 2018-0 Yes 1g Take 1 [...] by ity of tablet 00:00: mouth at [place] 00 bedtime. Medical Branch traZODONE 2018-0 Yes 50mg Take 1 Univer s 50 mg 6-19 tablet by ity of tablet 00:00: mouth at [place] 00 bedtime. Medical Branch traZODONE 2018-0 Yes 50mg Take 1 Un[facility] s 50 mg 6-19 tablet by ity of tablet 00:00: mouth at [place] 00 bedtime. Medical Branch traZODONE 2018-0 Yes 50mg Take 1 Un[facility] s 50 mg 6-19 tablet by ity of tablet 00:00: mouth at [place] 00 bedtime. Medical Branch traZODONE 2018-0 Yes 50mg Take 1 Un[facility] s 50 mg 6-19 tablet by ity of tablet 00:00: mouth at [place] 00 bedtime. Medical Branch traZODONE 2017-0 Yes 50mg Take 1 [facility] s 50 mg 6-19 tablet by ity of tablet 00:00: mouth at [place] 00 bedtime. Medical Branch traZODONE 0 Yes 50mg Take 1 Un[facility] s 50 mg 6-19 tablet by ity of tablet 00:00: mouth at [place] 00 bedtime. Medical Branch traZODONE 0 Yes 50mg Take 1 [facility] s 50 mg 6-19 tablet by ity of tablet 00:00: mouth at [place] 00 bedtime. Medical Branch traZODONE 0 Yes 50mg Take 1 [facility] s 50 mg 6-19 tablet by ity of tablet 00:00: mouth at [place] 00 bedtime. Medical Branch traZODONE 0 Yes 50mg Take 1 [facility] s 50 mg 6-19 tablet by ity of tablet 00:00: mouth at [place] 00 bedtime. Medical Branch traZODONE 0 Yes 50mg Take 1 [facility]iver s 50 mg 6-19 tablet by ity of tablet 00:00: mouth at [place] [address] bedtime. Medical Branch traZODONE 0 Yes 50mg Take 1 [facility]iver s 50 mg 6-19 tablet by ity of tablet 00:00: mouth at [place] [address] bedtime. Medical Branch traZODONE 2017-0 2020- No 50mg Take 1 [facility]ive rs 50 mg 6-19 02-25 tablet by ity of tablet 00:00: 00:00 mouth at [place] 00 :00 bedtime. Medical Branch traZODONE 0 2020- No 50mg Take 1 [facility] rs 50 mg 6-19 02-25 tablet by ity of tablet 00:00: 00:00 mouth at [place] 00 :00 bedtime. Medical Branch METHOTREXAT Yes [id number] Three tabs [facility] E SODIUM 7-31 PO Once a ity of 2.5 MG ORAL 00:00: week [place] TAB 00 Medical Branch FOLIC ACID Yes [id number] One tab PO [facility] 1 MG ORAL 7-31 Daily ity of TAB 00:00: [place] 00 Medical Branch METHOTREXAT Yes [id number] Three tabs [facility] E SODIUM 7-31 PO Once a ity of 2.5 MG ORAL 00:00: week [place] TAB 00 Medical Branch FOLIC ACID Yes [id number] One tab PO [facility] 1 MG ORAL 7-31 Daily ity of TAB 00:00: [place] 00 Medical Branch METHOTREXAT 20080 Yes [id number] Three tabs [facility] E SODIUM 7-31 PO Once a ity of 2.5 MG ORAL 00:00: week [place] TAB 00 Medical Branch FOLIC ACID 2007-0 Yes [id number] One tab PO [facility] 1 MG ORAL 7-31 Daily ity of TAB 00:00: [place] Medical Branch METHOTREXAT 0 Yes [id number] Three tabs [facility] E SODIUM 7-31 PO Once a ity of 2.5 MG ORAL 00:00: week [place] TAB 00 Medical Branch FOLIC ACID 0 Yes [id number] One tab PO [facility] 1 MG ORAL 7-31 Daily ity of TAB 00:00: [place] 00 Medical Branch METHOTREXAT 0 Yes [id number] Three tabs [facility] E SODIUM 7-31 PO Once a ity of 2.5 MG ORAL 00:00: week [place] TAB 00 Medical Branch FOLIC ACID 2007-0 Yes [id number] One tab PO [facility] 1 MG ORAL 7-31 Daily ity of TAB 00:00: [place] 00 Medical Branch METHOTREXAT 0 Yes [id number] Three tabs [facility] E SODIUM 7-31 PO Once a ity of 2.5 MG ORAL 00:00: week [place] TAB 00 Medical Branch FOLIC ACID 2007-0 Yes [id number] One tab PO [facility] 1 MG ORAL 7-31 Daily ity of TAB 00:00: [place] 00 Medical Branch METHOTREXAT 0 Yes [id number] Three tabs [facility] E SODIUM 7-31 PO Once a ity of 2.5 MG ORAL 00:00: week [place] TAB 00 Medical Branch FOLIC ACID 2007-0 Yes [id number] One tab PO [facility] 1 MG ORAL 7-31 Daily ity of TAB 00:00: [place] 00 Medical Branch METHOTREXAT 0 Yes [id number] Three tabs [facility] E SODIUM 7-31 PO Once a ity of 2.5 MG ORAL 00:00: week [place] TAB 00 Medical Branch FOLIC ACID 0 Yes [id number] One tab PO [facility] 1 MG ORAL 7-31 Daily ity of TAB 00:00: [place] 00 Medical Branch METHOTREXAT 0 Yes [id number] Three tabs [facility] E SODIUM 7-31 PO Once a ity of 2.5 MG ORAL 00:00: week [place] TAB 00 Medical Branch FOLIC ACID Yes [id number] One tab PO Univers 1 MG ORAL 7-31 Daily ity of TAB 00:00: [place] [facility] METHOTREXAT Yes [id number] Three tabs Univers E SODIUM 7-31 PO Once a ity of 2.5 MG ORAL 00:00: week [place] TAB 00 [facility] FOLIC ACID Yes [id number] One tab PO Univers 1 MG ORAL 7-31 Daily ity of TAB 00:00: [place] [facility] METHOTREXAT Yes [id number] Three tabs Univers E SODIUM 7-31 PO Once a ity of 2.5 MG ORAL 00:00: week [place] TAB 00 [facility] FOLIC ACID Yes [id number] One tab PO Univers 1 MG ORAL 7-31 Daily ity of TAB 00:00: [place] [facility] METHOTREXAT Yes [id number] Three tabs Univers E SODIUM 7-31 PO Once a ity of 2.5 MG ORAL 00:00: week [place] TAB 00 [facility] FOLIC ACID 0 Yes [id number] One tab PO Univers 1 MG ORAL 7-31 Daily ity of TAB 00:00: [place] [facility] METHOTREXAT 2020- No [id number] Three tabs Univers E SODIUM 7-31 02-25 PO Once a ity o f 2.5 MG ORAL 00:00: 00:00 week [place] TAB 00 :00 [facility] FOLIC ACID 2020- No [id number] One tab PO Univers 1 MG ORAL 7-31 02-25 Daily ity of TAB 00:00: 00:00 [place] 00 :00 [facility] METHOTREXAT 2020- No [id number] Three tabs Univers E SODIUM 7-31 02-25 PO Once a ity o f 2.5 MG ORAL 00:00: 00:00 week [place] TAB 00 :00 [facility] FOLIC ACID 2020- No [id number] One tab PO Univers 1 MG ORAL 7-31 02-25 Daily ity of TAB 00:00: 00:00 [place] 00 :00 [facility] NITROGLYCER 0 Yes 1 Tab SL Un ean IN 0.4 MG 5-08 Q5MIN PRN ity o f SL SUBL 00:00: [place] [facility] NITROGLYCER 2008-0 Yes 1 Tab SL Un ean IN 0.4 MG 5-08 Q5MIN PRN ity o f SL SUBL 00:00: [place] [facility] NITROGLYCER 0 Yes 1 Tab SL Un ean IN 0.4 MG 5-08 Q5MIN PRN ity o f SL SUBL 00:00: [place] [facility] NITROGLYCER 0 Yes 1 Tab SL Un ean IN 0.4 MG 5-08 Q5MIN PRN ity o f SL SUBL 00:00: [place] [facility] NITROGLYCER 0 Yes 1 Tab SL Un ean IN 0.4 MG 5-08 Q5MIN PRN ity o f SL SUBL 00:00: [place] [facility] NITROGLYCER Yes 1 Tab SL Un ean IN 0.4 MG 5-08 Q5MIN PRN ity o f SL SUBL 00:00: [place] [facility] NITROGLYCER Yes 1 Tab SL Un ean IN 0.4 MG 5-08 Q5MIN PRN ity o f SL SUBL 00:00: [place] [facility] NITROGLYCER Yes 1 Tab SL Un ean IN 0.4 MG 5-08 Q5MIN PRN ity o f SL SUBL 00:00: [place] [facility] NITROGLYCER Yes 1 Tab SL Un ean IN 0.4 MG 5-08 Q5MIN PRN ity o f SL SUBL 00:00: [place] [facility] NITROGLYCER Yes 1 Tab SL Un ean IN 0.4 MG 5-08 Q5MIN PRN ity o f SL SUBL 00:00: [place] [facility] NITROGLYCER 0 Yes 1 Tab SL Un ean IN 0.4 MG 5-08 Q5MIN PRN ity o f SL SUBL 00:00: [place] [facility] NITROGLYCER Yes 1 Tab SL Un ean IN 0.4 MG 5-08 Q5MIN PRN ity o f SL SUBL 00:00: Medical Branch NITROGLYCER 0 Yes 1 Tab SL Un ean IN 0.4 MG 5-08 Q5MIN PRN ity o f SL SUBL 00:00: [place] [facility] NITROGLYCER Yes 1 Tab SL [...] PRN ity o f SL SUBL 00:00: [place] [facility] NITROGLYCER Yes 1 Tab SL Un ean IN 0.4 MG 5-08 Q5MIN PRN ity o f SL SUBL 00:00: [place] [facility] nitroglycer Yes Place [facility] in 5-08 under the [place] (NITROSTAT) 00:00: tongue. of 0.4 mg 00 Medicin sublingual e tablet NITROGLYCER Yes 1 Tab SL Un ean IN 0.4 MG 5-08 Q5MIN PRN ity o f SL SUBL 00:00: [place] [facility] NITROGLYCER Yes 1 Tab SL Un ean IN 0.4 MG 5-08 Q5MIN PRN ity o f SL SUBL 00:00: [place] [facility] Vital Signs Vital Name Observation Time Observation Value Comments Source WEIGHT 2020-03-03 11:02:00 91.491 kg Systolic blood 2019-05-27 15:46:00 133 mm[Hg] Univer sity of pressure [facility] Diastolic blood 2019-05-27 15:46:00 69 mm[Hg] Unive rsity of pressure [facility] Heart rate 2019-05-27 15:46:00 67 /min [facility] Respiratory rate 2019-05-27 15:46:00 19 /min Univ ersity of [facility] Body height 2019-05-27 15:46:00 180.3 cm [facility] Body weight 2019-05-27 15:46:00 91.853 kg [facility] BMI 2019-05-27 15:46:00 28.24 kg/m2 [facility] Oxygen saturation in 2019-05-27 15:46:00 97 /min University of Arterial blood by [facility] Pulse oximetry Branch Systolic blood 2019-05-27 15:46:00 133 mm[Hg] Univer sity of pressure [facility] Diastolic blood 2019-05-27 15:46:00 69 mm[Hg] Unive rsity of pressure [facility] Heart rate 2019-05-27 15:46:00 67 /min Universi ty [facility] Respiratory rate 2019-05-27 15:46:00 19 /min Univ ersity of [facility] Body height 2019-05-27 15:46:00 180.3 cm Universi ty [facility] Body weight 2019-05-27 15:46:00 91.853 kg [facility] BMI 2019-05-27 15:46:00 28.24 kg/m2 Universi [facility] Oxygen saturation in 2019-05-27 15:46:00 97 /min University of Arterial blood by [facility] Pulse oximetry Branch Systolic blood 2020-09-29 18:38:00 104 mm[Hg] [facility] pressure Diastolic blood 2020-09-29 18:38:00 64 mm[Hg] [facility] pressure Heart rate 2020-09-29 18:38:00 114 /min [facility] Body temperature 2020-09-29 18:38:00 36.22 Lay [facility] Respiratory rate 2020-09-29 18:38:00 18 /min [facility] Body height 2020-09-29 18:38:00 175.3 cm [facility] Body weight 2020-09-29 18:38:00 87.726 kg [facility] BMI 2020-09-29 18:38:00 28.56 kg/m2 [facility] Oxygen saturation in 2020-09-29 18:38:00 97 /min [facility] Arterial blood by Pulse oximetry Procedures Procedure Date / Time Performing Clinician Source Performed COMPREHENSIVE METABOLIC 2020-09-22 09:47:00 Latanya Alcantara [facility] PANEL Selam HC COMPLETE BLD COUNT 2020-09-22 09:47:00 Latanya Alcantara [facility] W/AUTO DIFF Selam MAGNESIUM LEVEL 2020-09-22 09:47:00 Latanya Alcantara spital Selam PHOSPHORUS LEVEL 2020-09-22 09:47:00 Latanya Alcantara ospital Selam PROTHROMBIN TIME WITH INR 2020-09-22 09:47:00 Quinton [facility] Selam PARTIAL THROMBOPLASTIN 2020-09-22 09:47:00 [facility] TIME (PTT) Selam ESTIMATED GFR 2020-09-22 09:47:00 [facility] 2020-09-21 07:16:00 [facility] PANEL Selam HC COMPLETE BLD COUNT 2020-09-21 07:16:00 Latanya Alcantara [facility] W/AUTO DIFF Sealm MAGNESIUM LEVEL 2020-09-21 07:16:00 Latanya Alcantara spital Selam PHOSPHORUS LEVEL 2020-09-21 07:16:00 Latanya Alcantara ospital Selam PROTHROMBIN TIME WITH INR 2020-09-21 07:16:00 [facility] PARTIAL THROMBOPLASTIN 2020-09-21 07:16:00 [facility] TIME (PTT) Selam ESTIMATED GFR 2020-09-21 07:16:00 [facility] Flex PARTIAL THROMBOPLASTIN 2020-09-20 22:57:00 [facility] TIME (PTT) Flex COMPLETE BLD COUNT 2020-09-20 08:49:00 Nish Zelaya [facility] W/AUTO DIFF MAGNESIUM LEVEL 2020-09-20 08:49:00 Nish Zelaya [facility] PHOSPHORUS LEVEL 2020-09-20 08:49:00 Nish Zelaya [facility] PROTHROMBIN TIME WITH INR 2020-09-20 08:49:00 [facility] Selam ESTIMATED GFR 2020-09-20 08:49:00 [facility] 2020-09-20 08:49:00 Jean-Paul Ambrose [facility] PANEL SMEAR REVIEW 2020-09-20 08:49:00 Jean-Paul Ambrosetal HC COMPLETE BLD COUNT 2020-09-19 21:53:00 Nish Zelaya [facility] W/AUTO DIFF LA AN ELECTIVE 2020-09-19 15:12:00 Bianca [facility] ENDOTRACHEAL AIRWAY CHOLECYSTECTOMY, 2020-09-19 15:08:00 Kenny Mera H ospital LAPAROSCOPIC SURGICAL PATHOLOGY 2020-09-19 13:02:00 [facility] Flex ECG 12-LEAD 2020-09-19 12:36:52 Krista Rey [facility] HC COMPLETE BLD COUNT 2020-09-19 07:02:00 Latanya Alcantara [facility] W/AUTO DIFF Selam COMPREHENSIVE METABOLIC 2020-09-19 07:02:00 [facility] PANEL Selam MAGNESIUM LEVEL 2020-09-19 07:02:00 Latanya Alcantara spital [place] PHOSPHORUS LEVEL 2020-09-19 07:02:00 Latanya Alcantara ospital [place] PARTIAL THROMBOPLASTIN 2020-09-19 07:02:00 [facility] Hospital TIME (PTT) PROTHROMBIN TIME WITH INR 2020-09-19 07:02:00 [facility] TYPE AND SCREEN 2020-09-19 07:02:00 [facility] Islam Ho spital ESTIMATED GFR 2020-09-19 07:02:[address] [facility] Flex PARTIAL THROMBOPLASTIN 2020-09-18 22:16:00 [facility] TIME (PTT[facility] PROTHROMBIN TIME WITH INR 2020-09-18 15:16:00 Halie [facility] PARTIAL THROMBOPLASTIN 2020-09-18 15:16:00 Halie [facility] TIME (PTT) CBC HEMOGRAM 2020-09-18 15:16:00 Jean-Paul Ambrose spital HC COMPLETE BLD COUNT 2020-09-18 07:44:00 Latanya Alcantara [facility] W/AUTO DIFF Selam COMPREHENSIVE METABOLIC 2020-09-18 07:44:00 [facility] PANEL Selam MAGNESIUM LEVEL 2020-09-18 07:44:00 Latanya Alcantara Ho spital Selam PHOSPHORUS LEVEL 2020-09-18 07:44:00 Latanya Alcantaraist H ospital Selam LIPASE LEVEL 2020-09-18 07:44:00 BioReyes foley spital AMYLASE LEVEL 2020-09-18 07:44:00 BiowReyes Ho spital ESTIMATED GFR 2020-09-18 07:44:00 [facility] Flex ECG 12-LEAD 2020-09-18 01:58:51 Sourav Guy [facility] [place] > 1 HOUR 2020-09-17 20:29:46 Nish Zelaya [facility] ERCP WITH FLUORO 2020-09-17 19:35:00 Pily Pedraza ospital HC COMPLETE BLD COUNT 2020-09-17 10:44:00 Latanya Alcantara [facility] W/AUTO DIFF Selam COMPREHENSIVE METABOLIC 2020-09-17 10:44:00 Ltaanya Alcantara [facility] PANEL Selam MAGNESIUM LEVEL 2020-09-17 10:44:00 Latanya Alcantara spital [place]am PHOSPHORUS LEVEL 2020-09-17 10:44:00 Latanya Alcantara ospital Selam PARTIAL THROMBOPLASTIN 2020-09-17 10:44:00 [facility] ([facility]TT[facility] Flex ESTIMATED GFR 2020-09-17 10:44:00 [facility]OT[facility] TIME WITH INR 2020-09-17 10:44:00 [facility] Flex PARTIAL THROMBOPLASTIN 2020-09-17 02:27:00 Kinsey [facility] TIME (PTT) Flex US HEPATIC 2020-09-17 01:15:00 Latanya Alcantara Ho spital Selam MRI CHOLANGIOGRAM WO 2020-09-17 00:25:00 Pily Pedraza [facility] CONTRAST TTE COMPLETE, W CONTRAST, 2020-09-16 17:05:00 Krista Rey [facility] W DOPPLER ([id number]) HC COMPLETE BLD COUNT 2020-09-16 13:41:00 [facility] W/AUTO DIFF [place] BASIC METABOLIC PANEL 2020-09-16 13:41:00 [facility] LACTIC ACID LEVEL 2020-09-16 13:41:00 [facility] MAGNESIUM LEVEL 2020-09-16 13:41:00 AlcantaraLatanya [facility] PHOSPHORUS LEVEL 2020-09-16 13:41:00 [facility] PROTHROMBIN TIME WITH INR 2020-09-16 13:41:00 [facility] PARTIAL THROMBOPLASTIN 2020-09-16 13:41:00 [facility] TIME (PTT) [place] HEPATIC FUNCTION PANEL 2020-09-16 13:41:00 [facility] ESTIMATED GFR 2020-09-16 13:41:00 Anand Euceda [facility] Flex XR CHEST 2 VW 2020-08-19 20:48:00 [facility] POC GLUCOSE 2020-07-27 16:56:00 [facility] POC GLUCOSE 2020-07-27 13:11:00 [facility] POC GLUCOSE 2020-07-27 02:50:00 [facility] POC GLUCOSE 2020-07-26 22:27:00 [facility] POC GLUCOSE 2020-07-26 16:18:00 [facility] POC GLUCOSE 2020-07-26 13:30:00 [facility] PARTIAL THROMBOPLASTIN 2020-07-26 11:00:00 Nitin [facility] TIME (PTT) [facility] [address] [facility] BASIC METABOLIC PANEL 2020-07-26 11:00:00 [facility] 2020-07-26 11:00:00 [facility] ESTIMATED GFR 2020-07-26 11:00:00 [facility] ECG 12-LEAD 2020-07-25 16:52:56 Sophy Mcfarlane Ho spital HC COMPLETE BLD COUNT 2020-07-25 10:00:00 [facility] W/AUTO DIFF BASIC METABOLIC PANEL 2020-07-25 10:00:00 [facility] ESTIMATED GFR 2020-07-25 10:00:00 [facility] Islam Ho spital POC GLUCOSE 2020-07-25 02:03:00 [facility] POC GLUCOSE 2020-07-24 23:23:00 [facility] ECG 12-LEAD 2020-07-24 17:11:06 Xiang Cevallos Ho spital POC GLUCOSE 2020-07-24 16:12:00 [facility] POC GLUCOSE 2020-07-24 12:46:00 [facility] HEPATIC FUNCTION PANEL 2020-07-24 10:30:00 [facility] BASIC METABOLIC PANEL 2020-07-24 10:30:00 [facility] MAGNESIUM LEVEL 2020-07-24 10:30:00 [facility]ric [facility] HC COMPLETE BLD COUNT 2020-07-24 10:30:00 [facility] W/AUTO DIFF ESTIMATED GFR 2020-07-24 10:30:00 [facility] POC GLUCOSE 2020-07-24 03:49:00 [facility]YS 2020-07-23 23:52:56 Linda Neil [facility] SKILL,DX OR RX POC GLUCOSE 2020-07-23 23:20:00 [facility] POC GLUCOSE 2020-07-23 17:05:00 Nitin [facility] ECG 12-LEAD 2020-07-23 13:42:00 Debbie Cote [facility] POC GLUCOSE 2020-07-23 13:03:00 Nitin [facility] POC GLUCOSE 2020-07-23 09:31:00 Nitin [facility] XR CHEST 1 VW PORTABLE 2020-07-23 08:28:[address] [facility] HEPATIC FUNCTION PANEL 2020-07-23 05:30:00 Shelli Sawyer [facility] BASIC METABOLIC PANEL 2020-07-23 05:30:00 Do, Hanna Armijo [facility] MAGNESIUM LEVEL 2020-07-23 05:30:00 Do, Hanna Ward Ho spital PHOSPHORUS LEVEL 2020-07-23 05:30:00 Do, Hanna Shore ospital ESTIMATED GFR 2020-07-23 05:30:00 Do, Hanna Ward Ho spital HC COMPLETE BLD COUNT 2020-07-23 05:00:00 Do, Hanna Armijo [facility] W/AUTO DIFF TYPE AND SCREEN 2020-07-23 05:00:00 Do, Hanna Ward Ho spital POC GLUCOSE 2020-07-23 04:56:00 [facility] POC GLUCOSE 2020-07-23 01:24:00 Nitin [facility] XR ABDOMEN 1 VW PORTABLE 2020-07-22 22:00:00 [facility]SE 2020-07-22 20:36:00 [facility] ECG 12-LEAD 2020-07-22 17:04:51 Shelli Sawyer H ospital POC GLUCOSE 2020-07-22 16:16:00 [facility] POC GLUCOSE 2020-07-22 12:26:00 Nitin, [facility] ECG 12-LEAD 2020-07-22 11:46:56 Manny Alex [facility]spital [facility] POC GLUCOSE 2020-07-22 09:02:00 Nitin [facility] XR CHEST 1 VW PORTABLE 2020-07-22 08:45:00 Parker [facility] HEPATIC FUNCTION PANEL 2020-07-22 05:17:00 Shelli Sawyer [facility] BASIC METABOLIC PANEL 2020-07-22 05:17:00 Parker [facility] IONIZED CALCIUM 2020-07-22 05:17:00 [facility]ira Spear MAGNESIUM LEVEL 2020-07-22 05:17:00 Wilton Canales ESTIMATED GFR 2020-07-22 05:17:00 Parker Wiltoncharlie Clarkist Regis Spear HC COMPLETE BLD COUNT 2020-07-22 05:00:00 Parker [facility] W/AUTO DIFF [place] POC GLUCOSE 2020-07-22 04:44:00 Nitin [facility] POC GLUCOSE 2020-07-22 00:55:00 Nitin [facility] POC GLUCOSE 2020-07-21 21:06:00 Nitin [facility] POC GLUCOSE 2020-07-21 16:53:00 Nitin [facility] URINE CULTURE 2020-07-21 16:00:00 [facility] URINALYSIS SCREEN AND 2020-07-21 16:00:00 [facility] MICROSCOPY, WITH REFLEX TO CULTURE ECG 12-LEAD 2020-07-21 13:23:37 Debbie Cote [facility] POC GLUCOSE 2020-07-21 12:54:00 Nitin [facility] ECG 12-LEAD 2020-07-21 10:03:31 Manny Alex ospital Dhansukhlal POC GLUCOSE 2020-07-21 09:15:00 Nitin [facility] XR CHEST 1 VW PORTABLE 2020-07-21 08:40:00 [facility] BASIC METABOLIC PANEL 2020-07-21 05:33:00 Wilton Canales [facility] MAGNESIUM LEVEL 2020-07-21 05:33:00 Wilton Canales akira Spear ESTIMATED GFR 2020-07-21 05:33:00 [facility] CBC WITH PLATELET AND 2020-07-21 05:00:00 Wilton Canales [facility] DIFFERENTIAL [place] MANUAL DIFFERENTIAL 2020-07-21 05:00:00 Parker [facility] POC GLUCOSE 2020-07-21 04:56:00 Nitin [facility] POC GLUCOSE 2020-07-21 00:50:00 Nitin [facility] POC GLUCOSE 2020-07-20 20:52:00 Nitin [facility] LINE/DRAIN REMOVAL 2020-07-20 18:46:33 Manny Alex [facility] HEMOGLOBIN & HEMATOCRIT 2020-07-20 18:40:00 Shelli Sawyer [facility] MAGNESIUM LEVEL 2020-07-20 18:40:00 [facility]ric [facility] ClarkIslam H ospital POTASSIUM LEVEL 2020-07-20 18:40:00 Silverio [facility] ClarkIslam H ospital POC GLUCOSE 2020-07-20 16:46:00 Nitin [facility] XR CHEST 1 VW PORTABLE 2020-07-20 16:35:00 Manny Alex [facility] POC GLUCOSE 2020-07-20 12:27:00 Nitin [facility] ECG 12-LEAD 2020-07-20 10:25:48 Manny Alex [facility] BASIC METABOLIC PANEL 2020-07-20 10:03:00 [facility] MAGNESIUM LEVEL 2020-07-20 10:03:00 [facility] ESTIMATED GFR 2020-07-20 10:03:00 Wilton Canales [facility] POC GLUCOSE 2020-07-20 09:12:00 Nitin [facility] XR CHEST 1 VW PORTABLE 2020-07-20 07:52:00 Parker [facility] BASIC METABOLIC PANEL 2020-07-20 05:37:00 Wilton Canales [facility] MAGNESIUM LEVEL 2020-07-20 05:37:00 Wilton Canales [facility] LACTIC ACID LEVEL 2020-07-20 05:37:00 Parker [facility] ESTIMATED GFR 2020-07-20 05:37:00 [facility]ton [facility] ARTERIAL BLOOD GAS 2020-07-20 05:13:00 Parker [facility] HC COMPLETE BLD COUNT 2020-07-20 05:13:00 Parker [facility] W/AUTO DIFF [place] O2 SATURATION, VENOUS 2020-07-20 05:13:00 Parker [facility] PARTIAL THROMBOPLASTIN 2020-07-20 05:13:00 Parker [facility] TIME (PTT) [place] PROTHROMBIN TIME WITH INR 2020-07-20 05:13:00 Parker [facility] IONIZED CALCIUM, ARTERIAL 2020-07-20 05:13:00 Parker [facility] POC GLUCOSE 2020-07-20 04:38:00 Nitin [facility] ARTERIAL BLOOD GAS 2020-07-20 03:07:00 Parker [facility] POC GLUCOSE 2020-07-20 02:03:00 Nitin [facility] POC GLUCOSE 2020-07-20 00:49:00 [facility] ARTERIAL BLOOD GAS 2020-07-20 00:35:00 Manny Alex [facility] POC GLUCOSE 2020-07-19 23:50:00 Nitin [facility] POC GLUCOSE 2020-07-19 22:54:00 Nitin [facility] ECG 12-LEAD 2020-07-19 22:21:09 Manny AlexV[facility] ospiUnityPoint [facility] ARTERIAL BLOOD GAS 2020-07-19 22:17:00 Marcella Lakhani [facility] POC GLUCOSE 2020-07-19 22:13:00 Nitin [facility] XR CHEST 1 VW PORTABLE 2020-07-19 20:55:00 [facility] BASIC METABOLIC PANEL 2020-07-19 20:40:[address] [facility] HC COMPLETE BLD COUNT 2020-07-19 20:40:00 [facility] DIFF [facility] MAGNESIUM LEVEL 2020-07-19 20:40:[address] [facility] [place] PHOSPHORUS LEVEL 2020-07-19 20:40:00 angel [facility] PROTHROMBIN TIME WITH INR 2020-07-19 20:40:00 Manny Alex [facility] PARTIAL THROMBOPLASTIN 2020-07-19 20:40:00 angel [facility] TIME (PTT) [facility] ARTERIAL BLOOD GAS 2020-07-19 20:40:00 Stephen [facility] FIBRINOGEN 2020-07-19 20:40:[address] [facility] [place] [place] ESTIMATED GFR 2020-07-19 20:40:00 [facility] IONIZED CALCIUM, ARTERIAL 2020-07-19 20:40:00 [facility] POC GLUCOSE 2020-07-19 20:39:00 Intin, [facility] [place] AN ELECTIVE 2020-07-19 20:14:25 Abel Adkins spital ENDOTRACHEAL AIRWAY ARTERIAL BLOOD GAS, 2020-07-19 19:56:00 Nitin, [facility] SODIUM LEVEL, SYRINGE 2020-07-19 19:56:00 Nitin, [facility] POTASSIUM, SYRINGE 2020-07-19 19:56:00 Nitin, [facility] IONIZED CALCIUM, ARTERIAL 2020-07-19 19:56:00 Nitin, [facility] HEMOGLOBIN, SYRINGE 2020-07-19 19:56:00 Nitin, [facility] GLUCOSE LEVEL, SYRINGE 2020-07-19 19:56:[address] [facility] ACTIVATED CLOTTING TIME 2020-07-19 18:51:00 Nitin, [facility] FIBRINOGEN 2020-07-19 18:14:00 Nitin, [facility] PROTHROMBIN TIME WITH INR 2020-07-19 18:14:00 Nitin, [facility] PLATELET COUNT 2020-07-19 18:14:00 Nitin, [facility] HEMOGLOBIN & HEMATOCRIT 2020-07-19 18:14:00 Nitin, [facility] POTASSIUM, SYRINGE 2020-07-19 18:04:00 Nitin, [facility] SODIUM LEVEL, SYRINGE 2020-07-19 18:04:00 Nitin, [facility] ARTERIAL BLOOD GAS, 2020-07-19 18:04:00 Nitin, [facility] CORRECTED [facility] IONIZED CALCIUM, ARTERIAL 2020-07-19 18:04:00 Nitin, [facility] HEMOGLOBIN, SYRINGE 2020-07-19 18:04:00 Nitin, [facility] GLUCOSE LEVEL, SYRINGE 2020-07-19 18:04:00 Nitin, [facility] ACTIVATED CLOTTING TIME 2020-07-19 18:01:00 Nitin, [facility] SODIUM LEVEL, SYRINGE 2020-07-19 17:33:00 Nitin, [facility] [place] ARTERIAL BLOOD GAS, 2020-07-19 17:33:00 Nitin, [facility] CORRECTED [place] POTASSIUM, SYRINGE 2020-07-19 17:33:00 Nitin, [facility] [place] HEMOGLOBIN, SYRINGE 2020-07-19 17:33:00 Nitin, [facility] IONIZED CALCIUM, ARTERIAL 2020-07-19 17:33:00 Nitin, [facility] GLUCOSE LEVEL, SYRINGE 2020-07-19 17:33:00 Nitin, [facility] ACTIVATED CLOTTING TIME 2020-07-19 17:30:00 Nitin, [facility] GLUCOSE LEVEL, SYRINGE 2020-07-19 17:04:00 Nitin, [facility] HEMOGLOBIN, SYRINGE 2020-07-19 17:04:00 Nitin, [facility] [place] IONIZED CALCIUM, ARTERIAL 2020-07-19 17:04:00 Nitin, [facility] POTASSIUM, SYRINGE 2020-07-19 17:04:00 Nitin, [facility] [place] SODIUM LEVEL, SYRINGE 2020-07-19 17:04:00 Nitin, [facility] [place] ARTERIAL BLOOD GAS, 2020-07-19 17:04:00 Nitin, [facility] CORRECTED [facility] ACTIVATED CLOTTING TIME 2020-07-19 17:02:00 [facility], [facility] GLUCOSE LEV[facility], SYRINGE 2020-07-19 16:28:00 Nitin, [facility] [place] HEMOGLOBIN, SYRINGE 2020-07-19 16:28:00 Nitin, [facility] IONIZED CALCIUM, ARTERIAL 2020-07-19 16:28:00 Nitin, [facility] SODIUM LEVEL, SYRINGE 2020-07-19 16:28:00 Nitin, [facility] POTASSIUM, SYRINGE 2020-07-19 16:28:00 Nitin, [facility] ARTERIAL BLOOD GAS, 2020-07-19 16:28:00 Nitin, [facility] CORRECTED [facility] ACTIVATED CLOTTING TIME 2020-07-19 16:27:00 Nitin, [facility] ARTERIAL BLOOD GAS, 2020-07-19 15:54:00 Nitin, [facility] CORRECTED [facility] SODIUM LEVEL, SYRINGE 2020-07-19 15:54:00 Nitin, [facility] POTASSIUM, SYRINGE 2020-07-19 15:54:00 Nitin, [facility] HEMOGLOBIN, SYRINGE 2020-07-19 15:54:00 Nitin, [facility] GLUCOSE LEVEL, SYRINGE 2020-07-19 15:54:00 Nitin, [facility] IONIZED CALCIUM, ARTERIAL 2020-07-19 15:54:00 Nitin, [facility] LACTIC ACID, SYRINGE 2020-07-19 15:54:00 Nitin, [facility] ACTIVATED CLOTTING TIME 2020-07-19 15:53:00 [facility], [facility] ACTIV[facility] CLOTTING TIME 2020-07-19 15:36:00 Nitin, [facility] ANESTHESIA RONEL 2020-07-19 15:14:09 Abel [facility] POTASSIUM, SYRINGE 2020-07-19 15:10:00 Nitin, [facility] ARTERIAL BLOOD GAS, 2020-07-19 15:10:00 Nitin, [facility] CORRECTED [facility] SODIUM LEVEL, SYRINGE 2020-07-19 15:10:00 [facility] IONIZED CALCIUM, ARTERIAL 2020-07-19 15:10:[address] [facility] HEMOGLOBIN, SYRINGE 2020-07-19 15:10:00 Nitin, [facility] GLUCOSE LEVEL, SYRINGE 2020-07-19 15:10:[address] [facility] PA CATHETER 2020-07-19 13:34:35 [facility] CENTRAL LINE 2020-07-19 13:33:37 [facility] ARTERIAL LINE 2020-07-19 13:32:57 [facility] LA AN ELECTIVE 2020-07-19 13:32:07 Abel Adkins [facility] ENDOTRACHEAL AIRWAY SURGICAL PATHOLOGY 2020-07-19 [facility] ARTERIAL BLOOD GAS, 2020-07-19 13:04:00 [facility] CORRECTED [facility] SODIUM LEVEL, SYRINGE 2020-07-19 13:04:00 Nitin, [facility] POTASSIUM, SYRINGE 2020-07-19 13:04:00 [facility] IONIZED CALCIUM, ARTERIAL 2020-07-19 13:04:00 Nitin, [facility] HEMOGLOBIN, SYRINGE 2020-07-19 13:04:00 Nitin, [facility] GLUCOSE LEVEL, SYRINGE 2020-07-19 13:04:00 [facility] ACTIVATED CLOTTING TIME 2020-07-19 [facility], 2020-07-19 12:38:00 [facility] MITRAL VALVE, WITH [facility] CARDIOPULMONARY BYPASS REPLACEMENT, TRICUSPID 2020-07-19 12:38:00 [facility] VALVE, USING [facility] CARDIOPULMONARY BYPASS ATRIAL APPENDAGE LIGATION 2020-07-19 12:38:00 Nitin, [facility] ABO AND RH CONFIRMATION 2020-07-19 11:47:00 [facility] TYPE AND SCREEN 2020-07-14 19:29:00 [facility] PROTHROMBIN TIME WITH INR 2020-07-14 19:29:[address] [facility] B NATRIURETIC PEPTIDE 2020-07-14 19:29:00 [facility] PREPARE RBC 2020-07-14 19:29:00 [facility] ECG PRE/POST OP 2020-07-14 19:22:18 [facility]AL[facility]ATIVE 2020-07-14 18:42:00 [facility] RT-PCR [facility] URINALYSIS SCREEN AND 2020-07-14 18:42:00 [facility] MICROSCOPY, WITH REFLEX TO CULTURE HEMOGLOBIN A1C 2020-07-14 18:42:00 [facility] PARTIAL THROMBOPLASTIN 2020-07-14 18:42:00 [facility] TIME (PTT) [facility] COMPREHENSIVE METABOLIC 2020-07-14 18:42:00 [facility] PANEL [facility] HC COMPLETE BLD COUNT 2020-07-14 18:42:00 [facility] W/AUTO DIFF [facility] ESTIMATED GFR 2020-07-14 18:42:00 [facility] VITAMIN B12 LEVEL 2020-07-14 18:34:00 [facility] TOTAL IRON BINDING 2020-07-14 18:34:00 [facility] CAPACITY [facility] LIPID PANEL 2020-07-14 18:34[facility] FOLATE LEVEL 2020-07-14 18:34:00 [facility] FERRITIN LEVEL 2020-07-14 18:34:00 [facility] URINE CULTURE 2020-07-14 18:15:00 Jovita Harper [facility] SPIROMETRY, DIFFUSION, 2020-07-14 16:16:00 [facility] VOLUMES [facility] US CAROTID DUPLEX 2020-07-14 14:39:40 [facility] BILATERAL [facility] CT ANGIOGRAM CHEST 2020-06-23 [facility]:01[facility] W AND OR [facility] WITHOUT CONTRAST XR CHEST 2 VW 2020-06-23 21:39:00 [facility] MEDICATION CORRESPONDENCE 2020-05-20 06:01:00 Doctor Unassigned, No [facility] AUTHORIZATION FOR RELEASE 2019-12-25 05:01:00 Doctor Unassigned, No [facility] AUTHORIZATION FOR RELEASE 2019-06-26 05:01:00 Doctor Unassigned, No [facility] SCANNED LAB RESULTS 2018-12-04 05:01:00 [facility] Planned Activity Planned Date Details Comments Source Future Scheduled 2021-02-16 COVID-19 VACCINE (1) [facility] Test 19:47:38 [code = COVID19 Hospital VACCINE (1)] Future Scheduled 2021-02-16 Hepatitis C [facility] Test 19:47:38 screening Hospital (procedure) [code = 415798639] Future Scheduled 2021-02-16 Screening for [facility] Test 19:47:38 malignant neoplasm Hospital of cervix (procedure) [code = 061888717] Future Scheduled 2021-02-16 BREAST CANCER [facility] Test 19:47:38 SCREENING [code = Hospital BREAST CANCER SCREENING] Future Scheduled 2021-02-16 COLONOSCOPY [facility] Test 19:47:38 SCREENING [code = Hospital COLONOSCOPY SCREENING] Future Scheduled 2021-02-16 SHINGLES VACCINES Method ist Test 19:47:38 (#1) [code = Hospital SHINGLES VACCINES (#1)] Future Scheduled 2021-02-16 INFLUENZA VACCINE Method ist Test 19:47:38 [code = INFLUENZA Hospital VACCINE] Future Scheduled 2020-12-[address] [facility] Test 00:00:00 (#1) [code = Medical Center INFLUENZA VACCINE (#1)] Future Scheduled 2020-11-[address] [facility] [facility] Test 00:00:00 WELLNESS (YEAR 2 or Medical Center FIRST YEAR if no IPPE) [code = MEDICARE ANNUAL WELLNESS (YEAR 2 or FIRST YEAR if no IPPE)] Future Scheduled 2020-04-[address] [facility] - Test 00:00:00 (12+) [code = [facility] DEPRESSION SCREENING (12+)] Future Scheduled 2007 SHINGLES VACCINES ([address] [facility] - Test 00:00:00 of 2) [code = [facility] SHINGLES VACCINES (1 of 2)] Future Scheduled [address] [facility] Test 00:00:00 (procedure) [code = [facility] 57596805] Future Scheduled [address] [facility] Test 00:00:00 malignant neoplasm Medical C enter of cervix (procedure) [code = 869708541] Future Scheduled 1976-01-31 DTAP/TDAP/TD [facility] Test 00:[facility]00 VACCINES (1 - Tdap) [facility] [code = DTAP/TDAP/TD VACCINES (1 - Tdap)] Future Scheduled [address] [facility] Test 00:00:00 SCREENING [code = Medical nter HEPATITIS C SCREENING] Future Scheduled 1969 COVID-19 VACCINE (1) [facility] - Test 00:00:00 [code = COVID-[address] VACCINE (1)] Future Scheduled [address] [facility] - Test 00:00:00 0-64 YRS (1 of 2 - Medical C enter PPSV23) [code = PNEUMOCOCCAL VACCINE 0-64 YRS (1 of 2 - PPSV23)] Future Scheduled [address] [facility] Test 00:00:00 malignant neoplasm Medical C enter of breast (procedure) [code = 928205554] Future Scheduled [address] [facility] Test 00:00:00 malignant neoplasm Medical C enter of colon (procedure) [code = 542492120] Future Scheduled LA CORNEAL SMEAR Ordered: [facility] Test [code = 80441] 01/08/2019 Medicine Future Scheduled COLON CANCER [facility] ege of Test SCREENING: Medicine COLONOSCOPY [code = COLON CANCER SCREENING: COLONOSCOPY] Future Scheduled MAMMOGRAM ANNUAL [facility] Test [code = MAMMOGRAM Medicine ANNUAL] Future Scheduled TETANUS SHOT (ADULT) [facility] [code = TETANUS SHOT Medicin e (ADULT)] Future Scheduled HEPATITIS C [facility] ege of Test SCREENING [code = Medicine HEPATITIS C SCREENING] Future Scheduled HIV SCREENING [code [facility] of Test = HIV SCREENING] Medicine Future Scheduled CERVICAL CANCER [facility] of Test SCREENING 3 YEAR Medicine FOLLOW UP [code = CERVICAL CANCER SCREENING 3 YEAR FOLLOW UP] Future Scheduled FLU VACCINE > 6 [facility] of Test MONTHS [code = FLU Medicine VACCINE > 6 MONTHS] Encounters Start End Encounter Admission Attending Care Care Encounter Source Date/Time Date/Time Type Type Clinicians Facility Department ID 2020-09-29 2020-09-29 Office Sam, 1.2.840.0 [id number] Methodi 13:29:59 15:14:17 Visit Gill Euceda 44104.1.[address] 3.430.2.7 Hospit a .3.713666 l .8 2020-09-27 2020-09-27 Telephone Antwan 1.2.840.1 [id number] 21 [id number] Methodi 00:00:00 00:00:[address] 3.430.2.7 Hospit a .3.379869 l .8 2020-09-23 2020-09-23 Travel 1.2.840.1 1.2.009.736 [id number] Methodi 00:00:00 00:00:[address] 3.430.2.7 0.2.7.3.698 Ho spita .3.969851 084.8 l .8 2020-09-23 2020-09-23 Patient Enrico 1.2.840.1 [id number] Methodi 00:00:00 00:00:00 Outreach Ev 80465.1.[address] 3.430.2.7 Hospit a .3.706837 l .8 2020-09-16 2020-09-22 [facility] Anand Mccord 1.2.840.1 [id number] Methodi 06:55:00 16:56:00 Encounter Jean-Paul Ambrose 95516.1.[address] 3.430.2.7 Hospit a .3.280143 l .8 2020-09-19 2020-09-19 Anesthesia Christopher 1.2.840.1 [id number] Methodi 10:08:00 12:38:[address]011.1.[address] 3.430.2.7 Hospit a .3.980036 l .8 2020-09-19 2020-09-19 Surgery Samaria, 1.2.840.1 [id number] Methodi 10:15:00 12:35:[address] 3.430.2.7 Hospit a .3.617564 l .8 2020-09-17 2020-09-17 Surgery Pily Pedraza 1.2.840.1 [id number] 2100 [id number] Methodi 14:30:00 15:30:[address] 3.430.2.7 Hospit a .3.448761 l .8 2020-09-17 2020-09-17 Anesthesia Mars Mcclellan 1.2.840.1 [id number] Methodi 14:35:00 15:21:00 Event Gabriella Nascimento 02459.1.[address] 3.430.2.7 Hospit a .3.074512 l .8 2020-09-16 2020-09-16 Travel 1.2.840.1 1.2.825.899 9168 [id number] Methodi 00:00:00 00:00:[address] 3.430.2.7 0.2.7.3.698 Ho spita .3.905381 084.8 l .8 2020-08-19 2020-08-19 [facility] 1.2.840.1 [id number] 2 [id number] Methodi 15:15:00 23:59:00 Encounter , Russel 97575.1.1 [address] [place] 3.430.2.7 Hosp bi .3.115909 l .8 2020-08-19 2020-08-19 [facility] 1.2.840.1 [id number] 21 [id number] Methodi 14:08:02 15:01:54 Visit , Russel 57714.1.[address] [place] 3.430.2.7 Hosp bi .3.004564 l .8 2020-08-19 2020-08-19 Telephone Ron, 1.2.840.1 [id number] Methodi 00:00:00 00:00:[address] 3.430.2.7 Hospit a .3.260526 l .8 2020-08-19 2020-08-19 Orders Ron, 1.2.840.1 [id number] 21 [id number] Methodi 00:00:00 00:00:00 Only Amritha 22170.1.[address] 3.430.2.7 Hospit a .3.216460 l .8 2020-08-19 2020-08-19 Travel 1.2.840.1 1.2.357.080 6401 [id number] Methodi 00:00:00 00:00:[address] 3.430.2.7 0.2.7.3.698 Ho spita .3.034453 084.8 l .8 2020-08-09 2020-08-09 Orders Ron, 1.2.840.1 [id number] 21 [id number] Methodi 00:00:00 00:00:00 Only Amritha 85886.1.[address] 3.430.2.7 Hospit a .3.520307 l .8 2020-08-05 2020-08-05 Telephone Ron, 1.2.840.1 [id number] Methodi 00:00:00 00:00:[address] 3.430.2.7 Hospit a .3.477866 l .8 2020-08-02 2020-08-02 Telephone Blanca, 1.2.840.1 [id number] 2099 [id number] Methodi 00:00:00 00:00:[address] 3.430.2.7 Hospit a .3.000818 l .8 2020-07-30 2020-07-30 Telephone Blanca, 1.2.840.1 [id number] 2099 [id number] Methodi 00:00:00 00:00:[address] 3.430.2.7 Hospit a .3.313108 l .8 2020-07-19 2020-07-27 [facility] 1.2.840.1 [id number] 2 [id number] Methodi 05:26:00 16:33:00 Russel Santizo 22524.1.1 [address] [place] 3.430.2.7 Hosp bi .3.832002 l .8 2020-07-19 2020-07-19 Anesthesia Abel Adkins 1.2.840.1 [id number] Methodi 07:38:00 15:39:00 Event Jovita Harper 27210.1.[address] 3.430.2.7 Hospit a .3.441724 l .8 2020-07-19 2020-07-19 Surgery [facility] 1.2.840.1 [id number] 21 [id number] Methodi 07:30:00 15:30:00 , Russel 47541.1.[address] [place] 3.430.2.7 Hosp bi .3.600419 l .8 2020-07-19 2020-07-19 Travel 1.2.840.1 1.2.939.310 4006 [id number] Methodi 00:00:00 00:00:[address] 3.430.2.7 0.2.7.3.698 Ho spita .3.627994 084.8 l .8 2020-07-15 2020-07-15 Telephone Ron 1.2.840.1 [id number] Methodi 00:00:00 00:00:[address] 3.430.2.7 Hospit a .3.384928 l .8 2020-07-15 2020-07-15 Orders Ron 1.2.840.1 [id number] 21 [id number] Methodi 00:00:00 00:00:00 Only Amritha 20551.1.[address] 3.430.2.7 Hospit a .3.834801 l .8 2020-07-14 2020-07-14 [facility] 1.2.840.1 [id number] 2 [id number] Methodi 11:14:28 23:59:00 Russel Santizo 43232.1.1 [address] [place] 3.430.2.7 Hosp bi .3.964445 l .8 2020-07-14 2020-07-14 Pre-Admiss [facility] 1.2.840.1 [id number] Methodi 12:26:29 13:26:29 Russel estrada 96186.1.[address] Testing [place] 3.430.2.7 Hosp bi .3.827379 l .8 2020-07-14 2020-07-14 Telephone Evangelist 1.2.840.1 [id number] [id number] Methodi 00:00:00 00:00:[address] 3.430.2.7 Hospit a .3.628746 l .8 2020-07-14 2020-07-14 Telephone Raveendran, 1.2.840.1 [id number] Methodi 00:00:00 00:00:[address] 3.430.2.7 Hospit a .3.835010 l .8 2020-07-14 2020-07-14 Travel 1.2.840.1 1.2.616.823 0313 [id number] Methodi 00:00:00 00:00:[address] 3.430.2.7 0.2.7.3.698 Ho spita .3.443827 084.8 l .8 2020-07-08 2020-07-08 Telephone Ron, 1.2.840.1 [id number] Methodi 00:00:00 00:00:[address] 3.430.2.7 Hospit a .3.115856 l .8 2020-07-08 2020-07-08 Telephone Ron, 1.2.840.1 [id number] Methodi 00:00:00 00:00:[address] 3.430.2.7 Hospit a .3.038690 l .8 2020-07-08 2020-07-08 Telephone Ron, 1.2.840.1 [id number] Methodi 00:00:00 00:00:[address] 3.430.2.7 Hospit a .3.765265 l .8 2020-07-06 2020-07-06 Telephone Nitin 1.2.840.1 [id number] Methodi 00:00:00 00:00:00 , Russel 42134.1.[address] [place] 3.430.2.7 Hosp bi .3.065987 l .8 2020-07-06 2020-07-06 Telephone Nitin 1.2.840.1 [id number] Methodi 00:00:00 00:00:00 , Russel 37666.1.[address] [facility] 3.430.2.7 Hosp bi .3.066011 l .8 2020-07-05 2020-07-05 Telephone Christybrandy, 1.2.840.1 [id number] Methodi 00:00:00 00:00:[address] 3.430.2.7 Hospit a .3.198953 l .8 2020-06-28 2020-06-28 Telephone Christybrandy, 1.2.840.1 [id number] Methodi 00:00:00 00:00:[address] 3.430.2.7 Hospit a .3.953283 l .8 2020-06-28 2020-06-28 Travel 1.2.840.1 1.2.095.569 8551 [id number] Methodi 00:00:00 00:00:[address] 3.430.2.7 0.2.7.3.698 Ho spita .3.502416 084.8 l .8 2020-06-28 2020-06-28 Orders Ron, 1.2.840.1 [id number] 21 [id number] Methodi 00:00:00 00:00:00 Only Amritha 83667.1.[address] 3.430.2.7 Hospit a .3.640394 l .8 2020-06-25 2020-06-25 Documentat Provider, 1.2.840.1 [id number] 2 [id number] Methodi 00:00:00 00:00:00 ion Unknown 99049.1.[address] 3.430.2.7 Hospit a .3.778409 l .8 2020-06-24 2020-06-24 Orders Ron, 1.2.840.1 [id number] 21 [id number] Methodi 00:00:00 00:00:00 Only Amritha 99538.1.[address] 3.430.2.7 Hospit a .3.017971 l .8 2020-06-23 2020-06-23 [facility] 1.2.840.1 [id number] 2 [id number] Methodi 16:38:15 23:59:00 Encounter , Russel 97997.1.1 [address] [place] 3.430.2.7 Hosp bi .3.249683 l .8 2020-06-23 2020-06-23 [facility] 1.2.840.1 [id number] 2 [id number] Methodi 16:05:09 16:37:00 Encounter , Russel 15579.1.1 [address] [place] 3.430.2.7 Hosp bi .3.392623 l .8 2020-06-23 2020-06-23 [facility] 1.2.840.1 [id number] 21 [id number] Methodi 13:33:47 16:15:51 Visit , Russel 28015.1.[address] [place] 3.430.2.7 Hosp bi .3.071190 l .8 2020-06-23 2020-06-23 Telephone Ron, 1.2.840.1 [id number] Methodi 00:00:00 00:00:[address] 3.430.2.7 Hospit a .3.183410 l .8 2020-06-23 2020-06-23 Travel 1.2.840.1 1.2.689.974 5575 [id number] Methodi 00:00:00 00:00:[address] 3.430.2.7 0.2.7.3.698 Ho spita .3.054812 084.8 l .8 2020-06-21 2020-06-21 Refsharita Guerrero [facility] 1.2.840.114 [id number] Univers 00:00:00 00:00:00 Anna Marie Giordano 350.1.13.10 ity vandana [place] [phone] [place] dical nal 059 [facility] 2020-06-21 2020-06-21 Refsharita Guerrero [facility] 1.2.840.114 [id number] 00:00:00 00:00:00 Anna Marie [place] 350.1.13.10 [place] 4.2.7.2.686 Professio [phone] nal 059 [facility] 2020-06-18 2020-06-18 Telephone Nitin 1.2.840.1 [id number] Methodi 00:00:00 00:00:00 , Russel 99820.1.[address] [place] 3.430.2.7 Hosp bi .3.581322 l .8 2020-06-18 2020-06-18 Telephone Nitin 1.2.840.1 [id number] Methodi 00:00:00 00:00:00 , Russel 35501.1.[address] [place] 3.430.2.7 Hosp bi .3.885081 l .8 2020-06-17 2020-06-17 Telephone Nitin 1.2.840.1 [id number] Methodi 00:00:00 00:00:00 , Russel 28195.1.[address] [place] 3.430.2.7 Hosp bi .3.344057 l .8 2020-06-17 2020-06-17 Telephone Curtis, 1.2.840.1 [id number] Methodi 00:00:00 00:00:[address] 3.430.2.7 Hospit a .3.486771 l .8 2020-06-17 2020-06-17 Telephone Ron, 1.2.840.1 [id number] Methodi 00:00:00 00:00:[address] 3.430.2.7 Hospit a .3.870822 l .8 2020-06-15 2020-06-15 Telephone Evangelist, 1.2.840.1 [id number] 2099 [id number] Methodi 00:00:00 00:00:[address] 3.430.2.7 Hospit a .3.832180 l .8 2020-06-11 2020-06-11 Telephone Blanca, 1.2.840.1 [id number] 2099 [id number] Methodi 00:00:00 00:00:[address] 3.430.2.7 Hospit a .3.358416 l .8 2020-06-09 2020-06-09 [facility] 1.2.840.114 [id number] Univers 00:00:00 00:00:00 Outreach Jeremy PRIMARY 350.1.13.10 i ty [place] [phone] [place] [address] [place] 2020-06-09 2020-06-09 [facility] 1.2.840.114 [id number] 00:00:00 00:00:00 Outreach Jeremy PRIMARY 350.1.13.10 [place] 4.2.7.2.686 PAVILLION [phone] [facility] 2020-06-07 2020-06-07 Telephone Nitin 1.2.840.1 [id number] Methodi 00:00:00 00:00:00 , Russel 22037.1.[address] [facility] [address] 3.430.2.7 Hosp bi .3.337206 l .8 2020-06-01 2020-06-01 Outpatient Checo [facility] [id number] -20 Univers 09:00:00 09:00:00 ANNA MARIE [id number] ity o [facility] 2020-05-31 2020-05-31 [facility] [id number] -20 Univers 09:00:00 09:00:00 ANNA MARIE [id number] ity o [facility] 2020-05-31 2020-05-31 Telephone Jack 1.2.840.1 [id number] [id number] Methodi 00:00:00 00:00:[address] 3.430.2.7 Hospit a .3.001266 l .8 2020-05-20 2020-05-20 Orders Doctor JEREMY 1.2.840.114 [id number] Univers 00:00:00 00:00:00 Only Unassigned, LUCIAN 350.1.13.10 [facility] 4.2.7.2.686 Sharif as [phone] [address] 2020-05-20 2020-05-20 Orders Doctor JEREMY 1.2.840.114 [id number] 00:00:00 00:00:00 Only Unassigned, LUCIAN 350.1.13.10 [facility] 4.2.7.2.686 [id number] 2020-04-28 2020-04-28 Outpatient EL [facility], [facility] [id number] [facility] 00:00:00 00:00:00 [place] 2020-03-22 2020-03-22 Outpatient LETSOU, [facility] [id number] [facility] 00:00:00 00:00:00 [place] 2020-03-22 2020-03-22 Outpatient EL [facility]SOU, [facility] [id number] [facility] 00:00:00 00:00:00 [place] 2020-03-03 2020-03-03 Outpatient EL [facility]SOU, [facility] [id number] [facility] 00:00:00 00:00:00 [place] 2019-12-25 2019-12-25 Orders Doctor LUNA 1.2.840.114 [id number] [facility] 00:00:00 00:00:00 Only Unassigned, LUCIAN 350.1.13.10 [facility] 4.2.7.2.686 Sharif as [phone] [address] 2019-12-25 2019-12-25 Orders Doctor LUNA 1.2.840.114 [id number] 00:00:00 00:00:00 Only Unassigned, LUCI[facility] 350.1.13.10 [facility] 4.2.7.2.686 [id number] 009 2019-08-04 2019-08-04 BINH [place] 1.2.840.114 [id number] [facility] 00:00:00 00:00:00 [place] 350.1.13.10 [place] [phone] [address] 2019-08-04 2019-08-04 Refill [facility] 1.2.840.114 [id number] 00:00:00 00:00:00 [place] 350.1.13.10 [place] 4.2.7.2.686 Professio [phone] [address] 2019-07-29 2019-07-29 Refill [facility] 1.2.840.114 [id number] [facility] 00:00:00 00:00:00 [place] 350.1.13.10 [place] [phone] [address] 2019-07-29 2019-07-29 Refill [facility] 1.2.840.114 [id number] 00:00:00 00:00:00 Qiaryne [place] 350.1.13.10 [place] 4.2.7.2.686 Professio [phone] [address] 2019-06-26 2019-06-26 Orders Doctor JEREMY 1.2.840.114 [id number] [facility] 00:00:00 00:00:00 Only Unassigned, LUCIAN 350.1.13.10 [facility] 4.2.7.2.686 Sharif as [phone] [address] 2019-06-26 2019-06-26 Orders Doctor JEREMY 1.2.840.114 [id number] 00:00:00 00:00:00 Only Unassigned, [place] 350.1.13.10 [facility] 4.2.7.2.686 [id number] 009 2019-05-29 2019-05-29 Outpatient R [facility] [id number] Univers 08:00:00 08:00:00 [id number] ity of [facility] 2019-05-27 2019-05-27 Office [facility] 1.2.840.114 [id number] Univers 09:24:52 10:34:57 Visit Anna Marie [place] 350.1.13.10 it[place] [phone] [place] [facility] 2019-05-27 2019-05-27 Office [facility] 1.2.840.114 [id number] 09:24:52 10:34:57 Visit Anna Marie [place] 350.1.13.10 [place] 4.2.7.2.686 Professio [phone] [address] 2019-05-27 2019-05-27 Outpatient R [facility] [id number] Univers 09:20:00 09:20:00 ANNA MARIE ity o f [facility] 2019-05-14 2019-05-14 Refill [facility] 1.2.840.114 [id number] Univers 00:00:00 00:00:00 Anna Marie [place] 350.1.13.10 ity [place] [phone] [address] 2019-05-07 2019-05-07 Refill [facility] 1.2.840.114 [id number] Univers 00:00:00 00:00:00 Anna Marie [place] 350.1.13.10 it[place] [phone] [address] 2019-04-16 2019-04-16 Patient Doctor [facility] 1.2.840.114 [id number] Univers 00:00:00 00:00:00 Secure Msg Unassigned, [place] 350.1.13.10 [place] [phone] [address] 2019-04-13 2019-04-13 Refill [facility] 1.2.840.114 [id number] Univers 00:00:00 00:00:00 Anna Marie [place] 350.1.13.10 it[place] [phone] [place] 059 [facility] 2019-01-08 2019-01-08 Office JOSH Gtz 1.2.840.114 [id number] [facility] 14:16:47 17:54:57 Visit Esther Y AMBULATOR 350.1.13.21 College Y 0.2.7.2.686 of [phone] [facility] 300 e 2019-01-08 2019-01-08 Office JOSH Gtz 1.2.840.114 [id number] 14:16:47 17:54:57 Visit Esther Y AMBULATOR 350.1.13.21 Y 0.2.7.2.686 [phone] 300 2018-12-17 2018-12-17 Telephone [facility] [id number] Univers 00:00:00 00:00:00 Qiangjun [place] 350.1.13.10 ity of [place] [phone] [facility] nal [address] [place] [address] 2018-12-13 2018-12-13 [facility] 1.2.405.535 [id number] Univers 00:00:00 00:00:00 Qiangjun [place] 350.1.13.10 ity of [place] [phone] [place] dic[place]al [address] [place] [address] 2018-12-12 2018-12-12 [facility] 1.2.840.114 [id number] Univers 00:00:00 00:00:00 Qiangjun [place] 350.1.13.10 ity of [place] [phone] [place] dic[place] [address] [place] [address] 2018-12-05 2018-12-05 [facility] 1.2.243.645 [id number] Univers 00:00:00 00:00:00 Qiangjun [place] 350.1.13.10 ity of [place] [phone] [place] [address] [place] [address] 2018-12-05 2018-12-05 Telephone Ravinder [facility] [id number] Univers 00:00:00 00:00:00 Anna Marie Giordano 350.1.13.10 ity of [place] [phone] [place] dical [place] 059 [facility] 2018-12-04 2018-12-04 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 1, Adc Lab [facility] 1.2.840.114 [id number] Univers 08:21:22 08:36:22 Visit Anna Marie Guerrero 350.1.13.10 ity of [place] [phone] [facility] [address] 2018-12-04 2018-12-04 Orders Doctor JEREMY 1.2.840.114 [id number] Univers 00:00:00 00:00:00 Only Unassigned, LUCI[place] 350.1.13.10 ity of [place] [facility] 4.2.7.2.686 Sharif as [phone] [facility] [address] 2018-11-15 2018-11-15 Telephone [facility] [id number] Univers 00:00:00 00:00:00 Anna Marie Giordano 350.1.13.10 it[place] of [place] [phone] [place] dical nal 9 [facility] Results Test Description Test Time Test Comments Results Result Comments Source Surgical pathology request 2020-09-21 23:21:40 Test Item Value Reference Range Interpretation Comme nts Case number (test code = [id number]) [id number] Surgical pathology report (test code = See link below for PDF Lab R eport 4549) Result status (test code = 1167187) This is Final Report for [id number] 5535-53 [facility] 12 [id number] 19:52:02 Test Item Value Reference Range Interpretation Comments Ventricular rate (test code = 253) Atrial rate (test code = 255) LA interval (test code = 266) QRSD interval (test code = 260) QT interval (test code = 264) QTC interval (test code = 265) P axis 1 (test code = 267) QRS axis 1 (test code = 268) T wave axis (test code = 270) EKG impression (test Sinus code = 273) tachycardia-Nonspecific intraventricular block-Abnormal ECG- [facility] [id number] 08:17:00 Test Item Value Reference Range Interpretation Comments ABO grouping (test code = 883-9) A Rh type (test code = 24900-3) POS Antibody screen (gel) (test code = NEG 890-4) [facility] [id number] 16:58:33 Test Item Value Reference Range Interpretation Comments Urine culture (test SEE COMMENT Bacteriu jessica screen code = 1532496) negative. [facility] [id number] 21:22:00 Test Item Value Reference Range Interpretation Comments Product name (test code Red Blood Cells -1, = 25) Leukored Unit number (test code = [id number]) Product code (test code [id number] = 3092) Dispense status (test Returned to not code = 24) transfused Blood expiration date (test code = 302) Blood type code (test code = 308) Blood type (test code = A POSITIVE 1314) Compatibility (test code Compatible = 6400) [facility] HospitalArterial blood gas, [id number] 20:12:22 Test Item Value Reference Range Interpretation Comments pH, arterial (test code 7.35-7.45 L = 2744-1) pCO2, arterial (test See_Comment H [Autom ated message] code = 2018-8) The system [facility] generated this result transmitted ref erence range: 35 - 45 mmHg. The reference r ekaterina was not used to interpret this result as normal/abnor mal. pO2, arterial (test code See_Comment H [A utomated message] = 2703-7) The system [facility] [employer] generated this result transmitted ref erence range: 80 - 90 mmHg. The reference r ekaterina was not used to interpret this result as normal/abnor mal. Temperature, Celsius Degrees C (test code = 8310-5) O2 saturation, arterial 99 % 95-100 (test code = 2708-6) pH, arterial corrected (test code = 86270-5) pCO2, arterial corrected mmHg (test code = 55673-3) pO2, arterial corrected mmHg (test code = 98665-6) Base excess, arterial See_Comment L [Auto mated message] (test code = 1925-7) The s tem which generated this result transmitted ref erence range: -2 - 2 m Eq/L. The reference r ekaterina was not used to interpret this result as normal/abnor mal. Lab Interpretation (test Abnormal code = 46212-2) [facility]ucose level, [id number] 20:12:22 Test Item Value Reference Range Interpretation Comments Glucose, syringe (test code = 150 mg/dL 65-99 H 2345-7) Lab Interpretation (test code = Abnormal 08482-1) [facility] HospitalHemoglobin, [id number] 20:12:22 Test Item Value Reference Range Interpretation Comments Hemoglobin, syringe (test code = 11.2 g/dL 12.0-16.0 L 718-7) Lab Interpretation (test code = Abnormal 53649-7) [facility] HospitalPotassium, [id number] 20:12:22 Test Item Value Reference Range Interpretation Comments Potassium, syringe See_Comment [Automat ed message] The (test code = 2007) system wh ich generated this result tra nsmitted reference range : 3.5 - 5.0 mEq/L. The refe rence range was not used to interpret this result as normal/abnormal . [facility], [id number] 20:12:22 Test Item Value Reference Range Interpretation Comments Sodium, syringe (test See_Comment [Auto mated message] The code = 2947-0) system which generated this result tra nsmitted reference range : 135 - 148 mEq/L. The refe rence range was not used to interpret this result as normal/abnormal . [facility] HospitalLactic acid, [id number] 16:09:28 Test Item Value Reference Range Interpretation Comments Lactic acid, syringe (test code = 0.9 mmol/L 0.5-2.2 39145-4) [facility]ECG Pre/Post [id number] 20:27:38 Test Item Value Reference Range Interpretation Comments Ventricular rate (test code = 253) Atrial rate (test code = 255) QRSD interval (test code = 260) QT interval (test code = 264) QTC interval (test code = 265) QRS axis 1 (test code = 268) T wave axis (test code = 270) EKG impression (test Atrial fibrillation code = 273) with premature ventricular or aberrantly conducted complexes-ST & T wave abnormality, consider inferolateral ischemia or digitalis effect-Prolonged QT-Abnormal ECG-No previous ECGs available-Electronicall y Signed By Sammy Zuniga MD ([id number]) on 07/14/2020 3:27:37 PM [facility], diffusion, lung [id number] 16:16:00 Test Item Value Reference Range Interpretation Comments FEV1 Pre (test code = 1.63 L 2.29-3.65 5348) FVC Pre (test code = 2.37 L 3.05-4.66 5354) FEV1/FVC % Pre (test 68.67 % 67.63-87.22 code = 5361) FEF 25-75% Pre (test 0.89 L/s 1.08-3.96 code = 5547) PEF Pre (test code = 4.58 L/s 4.93-8.91 5367) DLCO Pre (test code = See_Comment [Auto mated message] 5411) The system [employer] generated this result transmitted ref erence range: 16.82 - 29.82 ml/(min*mmHg). The reference range was not used to interpr et this result as normal/abnormal . DLCOc Pre (test code = See_Comment [Aut omated message] 9682) The system [employer] generated this result transmitted ref erence range: 16.82 - 29.82 ml/(min*mmHg). The reference range was not used to interpr et this result as normal/abnormal . DL/VA Pre (test code = See_Comment [Aut omated message] 6306) The system [employer] generated this result transmitted ref erence range: 2.85 - 5 .48 ml/(min*mmHg*L) . The reference range was not used to interpr et this result as normal/abnormal . KCOc SB Pre (test code See_Comment [Aut omated message] = 5562) The system [employer] generated this result transmitted ref erence range: 2.85 - 5 .48 ml/(min*mmHg*L) . The reference range was not used to interpr et this result as normal/abnormal . VA SB Pre (test code = 3.94 L 4.78-6.98 5444) Hb Pre (test code = g(Hb)/dL 5540) VC Pre (test code = [...] 4.79-6.76 5416) Raw Pre (test code = See_Comment [Autom ated message] 5507) The system [employer] generated this result transmitted ref erence range: 3.06 - 3 .06 cmH2O*s/L. The reference range was not used to interpr et this result as normal/abnormal . R0.5IN Pre (test code See_Comment [Auto mated message] = 5514) The system [employer] generated this result transmitted ref erence range: 3.06 - 3 .06 cmH2O*s/L. The reference range was not used to interpr et this result as normal/abnormal . sR0.5IN Pre (test code cmH2O*s = 5521) sGaw Predicted (test See_Comment [Autom ated message] code = 5528) The system [employer] generated this result transmitted ref erence range: 0.10 - 0 .10 1/(cmH2O*s). Th e reference range was not used to interpr et this result as normal/abnormal . FEV1 Predicted (test code = 5302) FEV1 LLN (test code = 5347) FEV1 % Pre of 54.9 % Predicted (test code = 5308) FVC Predicted (test code = 5307) FVC LLN (test code = 5353) FVC % Pre of Predicted 61.5 % (test code = 5355) FEV1/FVC % Predicted (test code = 5359) FEV1/FVC % LLN (test code = 5360) FEV1/FVC % Pre of 88.7 % Predicted (test code = 5362) FEF 25-75% Predicted (test code = 5546) FEF 25-75% LLN (test code = 5545) FEF 25-75% % Pre of 35.3 % Predicted (test code = 5548) PEF Predicted (test code = 5310) PEF LLN (test code = 5366) PEF % Pre of Predicted 66.2 % (test code = 5368) VC Predicted (test code = 5372) VC LLN (test code = 5373) VC % Pre of Predicted 60 % (test code = 5375) ERV Predicted (test code = 5379) ERV LLN (test code = 5380) ERV % Pre of Predicted 187.7 % (test code = 5382) FRCpl % Predicted (test code = 5386) FRCpl % LLN (test code = 5387) FRCpl % Pre of 103.7 % Predicted (test code = 5389) IC Predicted (test code = 5393) IC LLN (test code = 5394) IC % Pre of Predicted 30.9 % (test code = 5396) RV Predicted (test code = 5400) RV LLN (test code = 5401) RV % Pre of Predicted 72.6 % (test code = 5403) RV % TLC Predicted (test code = 5407) RV % TLC LLN (test code = 5408) RV % TLC % Pre of 100.6 % Predicted (test code = 5410) TLC Predicted (test code = 5414) TLC LLN (test code = 5415) TLC % Pre of Predicted 67.4 % (test code = 5417) Raw Predicted (test code = 5505) Raw LLN (test code = 5506) Raw % Pre of Predicted 130 % (test code = 5508) R0.5IN Predicted (test code = 5512) R0.5IN LLN (test code = 5513) R0.5IN % Pre of 75.6 % Predicted (test code = 5515) sGaw Predicted (test code = 5526) sGaw LLN (test code = 5527) sGaw % Pre of 66.1 % Predicted (test code = 5529) DLCO Predicted (test code = 5421) DLCO LLN (test code = 5422) DLCO % Pre of 57 % Predicted (test code = 5424) DLCOc Predicted (test code = 5428) DLCOc LLN (test code = 5429) DLCOc % Pre of 57 % Predicted (test code = 5431) DL/VA Predicted (test code = 5435) DL/VA LLN (test code = 5436) DL/VA % Pre of 80.9 % Predicted (test code = 5438) KCOc SB Predicted (test code = 5533) KCOc SB LLN (test code = 5534) KCOc SB % Pre of 80.9 % Predicted (test code = 5536) VA SB Predicted (test code = 5442) VA SB LLN (test code = 5443) VA SB % Pre of 67 % Predicted (test code = 5445) [facility]
[2021-06-01] MEDS ORDERED: MAGNES/ALUMIN/SIMET 30ML UCUP ONE (19:27)
[2021-06-01] MEDS ORDERED: NA CHLORIDE 0.9% 500 ML ONE (19:27)
[2021-06-01] MEDS ORDERED: LIDOCAINE VISCOUS 2% SOLN 15 ML UDC ONE (19:28)
[2021-06-01 19:41] LABS: Absolute Lymphocytes (CBC) 1.3 K/uL (0.7-4.9); Hematocrit 37.1 % (36.0-45.0); Lymphocytes % 12.3 % (15.3-44.8); MPV 7.9 fL (7.6-11.3); RBC Red Blood Cell Count 4.04 M/uL (3.86-4.86)
--- NOTE | 2021-06-01 20:05 | RAD REPORT ---
EXAM DESCRIPTION: CT - Abdomen Pelvis Wo Contrast - 06/01/2021 7:45 pm CLINICAL HISTORY: Abdominal pain. nausea;Abd pain COMPARISON: <Comparisons> TECHNIQUE: CT imaging of the abdomen and pelvis was performed without contrast. Solid organ, bowel a nd vascular assessment is limited due to lack of IV and oral contrast. All CT scans are performed using dose optimization technique as appropriate and may include automated exposure control or mA/KV adjustment according to patient size. FINDINGS: The lower lung giron are clear.Small hiatal hernia. The liver, spleen, pancreas, adrenal glands and kidneys are within normal limits for a limited non-co ntrast examination.Cholecystectomy. No bowel obstruction, free air, free fluid or abscess. The appendix is not identified as a discrete structure, however, no secondary findings of appendicitis are identified. Multilevel lumbar degenerative changes are present. IMPRESSION: No acute intra-abdominal or pelvic findings. A limited non-contrast examination was performed as detailed.
[2021-06-01] MEDS ORDERED: METOPROLOL XL 50 MG TAB PO ONE (20:08)
[2021-06-01] MEDS ORDERED: MORPHINE 4 MG/ML SYR ONE (20:29)
--- NOTE | 2021-06-01 20:54 | RAD REPORT ---
EXAM DESCRIPTION: RAD - Chest Single View - 06/01/2021 8:40 pm CLINICAL HISTORY: DYSPNEA Chest pain. COMPARISON: Chest Single View dated 05/04/2021; Chest Single View dated 05/01/2021; Chest Single View d ated 04/29/2021; Chest Single View dated 06/13/2020 FINDINGS: Portable technique limits examination quality. Mild pulmonary edema. The heart is moderately enlarged. Sternotomy wires. IMPRESSION: Mild CHF suspected.
[2021-06-01 20:55] LABS: Potassium 3.9 mmol/L (3.5-5.1)
[2021-06-01] MEDS ORDERED: PANTOPRAZOLE 40 MG INJ ONE (20:59)
[2021-06-01] MEDS ORDERED: METOPROLOL TARTRATE 5 MG/5 ML INJ IV ONE ×3 (20:59→23:46)
[2021-06-01 21:42] LABS: Albumin 3.6 g/dL (3.4-5.0); Bilirubin Direct 2.6 mg/dL (0-0.2); Bilirubin Total 3.3 mg/dL (0.2-1.0); Protein, Total 8.4 g/dL (6.4-8.2)
[2021-06-01] MEDS ORDERED: ONDANSETRON 4 MG/2 ML VIAL ONE (21:47)
[2021-06-01 22:06] LABS: SARS-COV-2 RT PCR POSITIVE (NEGATIVE)
--- NOTE | 2021-06-01 22:16 | EDPHYS ---
Physician Documentation [facility] Name: Celsa Lorenzo Age: 66 yrs Sex: Female : 1955 Arrival Date: 06/01/2021 Time: 19:14 Bed 4 Private MD: ED Physician Geovany Barksdale HPI: 06/01 19:29 This 66 yrs old Female presents to ER via EMS with complaints of Epigastric Pain, rn Shortness Of Breath. 19:29 The patient presents with abdominal pain in the epigastric area. Onset: The rn symptoms/episode began/occurred 2 day(s) ago. The symptoms do not radiate. Associated signs and symptoms: Pertinent positives: nausea, Pertinent negatives: blood in stools, diarrhea, fever. The symptoms are described as achy, intermittent. Modifying factors: The symptoms are alleviated by nothing, the symptoms are aggravated by food, touching the area. Severity of pain: At its worst the pain was moderate in the emergency department the pain has improved. The patient has experienced a previous episode. The patient has not recently seen a physician. Pt reports epigastric abd pain for 2 days, assoc with nausea, no vomiting or diarrhea. Reports pain similar to when had gallbladder removed in past. No chest pain. + mild sob. Reports worse after eating sandwich earlier. Much better after zofran and pain meds by EMS. NO dark or bloody stool. . Historical: - Allergies: 19:16 Betadine; ld1 19:16 Iodine; Topical only; ld1 - Home Meds: 19:16 Eliquis 5 mg Oral tab 1 tab 2 times per day [Active]; Lasix 40 mg Oral tab 20mg at ld1 night [Active]; metoprolol PO BID [Active]; Wellbutrin 150mg Oral 1 tab daily [Active]; Zoloft 50 mg Oral tab 1 tab once daily [Active]; Xeljanz Oral [Active]; - PMHx: 19:16 ADD/ADHD; Atrial Fib; cardioversion; CHF; COPD; Hypertension; mitral valve stenosis; ld1 pulmonary HTN; resp failure; Rheumatoid Arthritis; - PSHx: 19:16 Appendectomy; section; Cholecystectomy; mitral and tricupid valve ld1 replacement.; Tonsillectomy; tubal ligation; - Immunization history:: Adult Immunizations not up to date, Client reports having NOT received the Covid vaccine. - Social history:: Smoking status: Patient denies any tobacco usage or history of. Patient uses alcohol, on a daily basis. - Family history:: not pertinent. - Hospitalizations: : No recent hospitalization is reported. ROS: 19:29 Constitutional: Negative for fever, chills, and weight loss, Eyes: Negative for injury, rn pain, redness, and discharge, Neck: Negative for injury, pain, and swelling, Cardiovascular: Negative for chest pain, palpitations, and edema, Respiratory: + mild sob, neg for cough Abdomen/GI: + epigastric abd pain and nausea Back: Negative for injury and pain, : Negative for injury, bleeding, discharge, and swelling, MS/Extremity: Negative for injury and deformity, Skin: Negative for injury, rash, and discoloration, Neuro: Negative for headache, weakness, numbness, tingling, and seizure. Exam: 19:32 Constitutional: This is a well developed, well nourished patient who is awake, alert, rn and in no acute distress. Able to get herself over into bed from EMS stretcher. Head/Face: Normocephalic, atraumatic. Eyes: Periorbital areas with no swelling, redness, or edema. ENT: dry MM Cardiovascular: Tachycardic, irregular. Respiratory: Mild tachypnea, no retractions. Abdomen/GI: soft, + mild epigastric tenderness, no masses or rebound Skin: Warm, dry MS/ Extremity: Pulses equal, no cyanosis. Neurovascular intact. Full, normal range of motion. Equal circumference. Neuro: Awake and alert, GCS 15 Vital Signs: 19:14 BP 165 / 99; Pulse 129; Resp 24; Temp 97.7(O); Pulse Ox 100% on R/A; Weight 86.18 kg; ld1 Height 5 ft. 7 in. (170.18 cm); Pain 8/10; 20:16 Pulse 139; Resp 34; Pulse Ox 98% on 2 lpm NC; as6 21:03 BP 143 / 99; Pulse 137; Resp 18; Pulse Ox 100% on R/A; ld1 22:30 BP 163 / 132; Pulse 137; Resp 14; Pulse Ox 100% on R/A; ld1 23:26 BP 145 / 107; Pulse 115; Resp 11; Pulse Ox 100% on R/A; ld1 06/02 00:34 BP 156 / 116; Pulse 110; Resp 14 S; Pulse Ox 100% on 2 lpm NC; as6 06/01 19:14 Body Mass Index 29.76 (86.18 kg, 170.18 cm) ld1 MDM: 06/01 19:18 Patient medically screened. rn 22:14 Differential diagnosis: bowel obstruction, diverticulitis, gastritis, gastroesophageal rn reflux disease, Hepatitis, non-specific abd pain, pancreatitis, Peptic Ulcer Disease, Pyelonephritis. Data reviewed: vital signs, nurses notes, lab test result(s), EKG, radiologic studies, CT scan, plain films, and as a result, I will admit patient. Counseling: I had a detailed discussion with the patient and/or guardian regarding: the historical points, exam findings, and any diagnostic results supporting the discharge/admit diagnosis, lab results, radiology results, the need for further work-up and treatment in the hospital. Response to treatment: the patient's symptoms have mildly improved after treatment, and as a result, I will admit patient. Admission orders: after a detailed discussion of the patient's condition and case, the admit orders are written by me. 06/01 19:20 Order name: Basic Metabolic Panel; Complete Time: 21:44 rn 06/01 19:20 Order name: CBC with Diff; Complete Time: 19:55 rn 06/01 19:20 Order name: Hepatic Function; Complete Time: 21:44 rn 06/01 19:20 Order name: Lipase; Complete Time: 21:44 rn 06/01 19:20 Order name: BNP; Complete Time: 21:44 rn 06/01 19:20 Order name: Troponin High Sensitivity; Complete Time: 21:44 rn 06/01 19:20 Order name: CT Abd/Pelvis - Without Contrast; Complete Time: 20:23 rn 06/01 19:20 Order name: XRAY Chest (1 view); Complete Time: 20:55 rn 06/01 19:32 Order name: COVID-19/FLU A+B (Document "Date of Onset" if Symptomatic); Complete Time: rn 22:14 06/01 21:46 Order name: US Liver Only la1 06/01 19:20 Order name: IV Saline Lock; Complete Time: 19:24 rn 06/01 19:20 Order name: Labs collected and sent; Complete Time: 19:41 rn 06/01 19:20 Order name: EKG; Complete Time: 19:21 rn 06/01 19:20 Order name: EKG - Nurse/Tech; Complete Time: 19:20 rn 06/01 19:20 Order name: Cardiac monitoring; Complete Time: 19:20 rn 06/01 19:20 Order name: O2 Sat Monitoring; Complete Time: 19:20 rn Administered Medications: 19:37 Drug: GI Cocktail without - (Maalox Suspension 30 ml, Lidocaine Liquid 2 % 15 as6 ml) Route: PO; 06/02 00:51 Follow up: Response: No adverse reaction 06/01 19:40 Drug: NS 0.9% 500 ml Route: IV; Rate: bolus; Site: right wrist; 06/02 00:51 Follow up: Response: No adverse reaction; IV Status: Completed infusion; IV Intake: as6 500ml 06/01 20:11 Drug: Metoprolol TARTRATE 50 mg Route: PO; kd3 06/02 00:53 Follow up: Response: No adverse reaction 06/01 20:29 Drug: morphine 4 mg Route: IVP; Site: right wrist; as06/02 00:53 Follow up: Response: No adverse reaction; RASS: Alert and Calm (0) 06/01 21:03 Drug: ProTONIX (pantoprazole) 40 mg Route: IVP; Site: right wrist; ld1 06/02 00:53 Follow up: Response: No adverse reaction 06/01 21:03 Drug: Lopressor (metoprolol) 5 mg Route: IVP; Site: right wrist; ld1 06/02 00:53 Follow up: Response: No adverse reaction 06/01 21:49 Drug: Zofran (Ondansetron) 4 mg Route: IVP; Site: right wrist; kd3 06/02 00:54 Follow up: Response: No adverse reaction 06/01 23:07 Drug: Dilaudid (HYDROmorphone) 0.5 mg Route: IVP; Site: right forearm; kd3 06/02 00:54 Follow up: Response: No adverse reaction; RASS: Alert and Calm (0) 06/01 23:08 Drug: Lopressor (metoprolol) 5 mg Route: IVP; Site: right forearm; kd3 06/02 00:54 Follow up: Response: No adverse reaction as6 06/01 23:46 Drug: Lopressor (metoprolol) 5 mg Route: IVP; Site: right wrist; ld1 06/02 00:54 Follow up: Response: No adverse reaction as6 00:23 Drug: Digoxin 0.5 mg Route: IVP; Site: right forearm; kd3 00:54 Follow up: Response: No adverse reaction as6 Disposition Summary: 06/01/21 22:16 Hospitalization Ordered Hospitalization Status: Inpatient Admission rn Provider: Raj Barksdale rn Location: Telemetry/MedSurg (Inpatient) rn Condition: Stable rn Problem: new rn Symptoms: have improved rn Bed/Room Type: Standard rn Room Assignment: 408(06/01/21 23:32) cg Diagnosis - SARS-associated coronavirus as the cause of diseases classified elsewhere rn - Abdominal pain, unspecified rn - Persistent atrial fibrillation rn Forms: - Medication Reconciliation Form rn - SBAR form barn boss time excluding procedures: 06/01 22:14 Critical care time: Bedside Care: 35 minutes, Consultation: 5 minutes. Total time: 40 rn minutes Signatures: Dispatcher [employer] EDMS Geovany Barksdale MD MD rn Attema, Lee, ENGINEER [employer]ATED [employer]-C ENGINEER [employer]ATED [employer]QUIP[employer]-Cla1 Chante Kuo, RN RN cg Lily Giron, RN RN ld1 Rey Whaley, RN RN as6 Kinjal Harrington, RN RN kd3 Corrections: (The following items were deleted from the chart) 19:43 19:21 Abdomen Pelvis W Con+CT.RAD.BRZ ordered. EDKS EDKS 23:32 22:16 rn cg
--- NOTE | 2021-06-01 22:16 | ER ---
Nurse's Notes [facility] Name: Celsa Lorenzo Age: 66 yrs Sex: Female : 1955 Arrival Date: 06/01/2021 Time: 19:14 Bed 4 Private MD: Diagnosis: SARS-associated coronavirus as the cause of diseases classified elsewhere;Abdominal pain, unspecified;Persistent atrial fibrillation Presentation: 06/01 19:14 Chief complaint: Patient states: c/o epigastric pain and SOB X 2-3 days. Pt reporting ld1 spasm feeling when trying to breath. Coronavirus screen: At this time, the client does not indicate any symptoms associated with coronavirus-19. Ebola Screen: No symptoms or risks identified at this time. Initial Sepsis Screen: Does the patient meet any 2 criteria? No. Patient's initial sepsis screen is negative. Does the patient have a suspected source of infection? No. Patient's initial sepsis screen is negative. Risk Assessment: Do you want to hurt yourself or someone else? Patient reports no desire to harm self or others. Onset of symptoms was June 01, 2021. 19:14 Method Of Arrival: EMS: [facility] ld1 19:14 Acuity: MAXIMO 3 ld1 19:22 Care prior to arrival: Medication(s) given: zofran 4 mg, Fentanyl 100mcg. ld1 Triage Assessment: 19:16 General: Appears in no apparent distress. comfortable, Behavior is calm, cooperative, ld1 appropriate for age. Pain: Complains of pain in epigastric area Pain does not radiate. Pain currently is 4 out of 10 on a pain scale. at worst was 10 out of 10 on a pain scale. Quality of pain is described as grabbing Pain began gradually, Is intermittent. EENT: No signs and/or symptoms were reported regarding the EENT system. Neuro: Level of Consciousness is awake, alert, obeys commands, Oriented to person, place, time, situation. Cardiovascular: Capillary refill < 3 seconds Patient's skin is warm and dry. Rhythm is atrial fibrillation. Respiratory: Airway is patent Respiratory effort is even, unlabored, Respiratory pattern is regular, symmetrical. GI: Abdomen is round non-distended, Reports nausea. : No signs and/or symptoms were reported regarding the genitourinary system. Derm: No signs and/or symptoms reported regarding the dermatologic system. Musculoskeletal: No signs and/or symptoms reported regarding the musculoskeletal system. Historical: - Allergies: 19:16 Betadine; ld1 19:16 Iodine; Topical only; ld1 - Home Meds: 19:16 Eliquis 5 mg Oral tab 1 tab 2 times per day [Active]; Lasix 40 mg Oral tab 20mg at ld1 night [Active]; metoprolol PO BID [Active]; Wellbutrin 150mg Oral 1 tab daily [Active]; Zoloft 50 mg Oral tab 1 tab once daily [Active]; Xeljanz Oral [Active]; - PMHx: 19:16 ADD/ADHD; Atrial Fib; cardioversion; CHF; COPD; Hypertension; mitral valve stenosis; ld1 pulmonary HTN; resp failure; Rheumatoid Arthritis; - PSHx: 19:16 Appendectomy; section; Cholecystectomy; mitral and tricupid valve ld1 replacement.; Tonsillectomy; tubal ligation; - Immunization history:: Adult Immunizations not up to date, Client reports having NOT received the Covid vaccine. - Social history:: Smoking status: Patient denies any tobacco usage or history of. Patient uses alcohol, on a daily basis. - Family history:: not pertinent. - Hospitalizations: : No recent hospitalization is reported. Screenin:21 Abuse screen: Denies threats or abuse. Denies injuries from another. Nutritional ld1 screening: No deficits noted. Tuberculosis screening: No symptoms or risk factors identified. Fall Risk None identified. Assessment: 19:21 Reassessment: See triage assessment. ld1 19:31 Cardiovascular: Rhythm is atrial fibrillation with rapid ventricular response. GI: as6 Reports nausea. 20:16 Pain: Complains of pain in epigastric area. GI: Reports upper abdominal pain, nausea. as6 Vital Signs: 19:14 BP 165 / 99; Pulse 129; Resp 24; Temp 97.7(O); Pulse Ox 100% on R/A; Weight 86.18 kg; ld1 Height 5 ft. 7 in. (170.18 cm); Pain 8/10; 20:16 Pulse 139; Resp 34; Pulse Ox 98% on 2 lpm NC; as6 21:03 BP 143 / 99; Pulse 137; Resp 18; Pulse Ox 100% on R/A; ld1 22:30 BP 163 / 132; Pulse 137; Resp 14; Pulse Ox 100% on R/A; ld1 23:26 BP 145 / 107; Pulse 115; Resp 11; Pulse Ox 100% on R/A; ld1 06/02 00:34 BP 156 / 116; Pulse 110; Resp 14 S; Pulse Ox 100% on 2 lpm NC; as6 06/01 19:14 Body Mass Index 29.76 (86.18 kg, 170.18 cm) ld1 ED Course: 06/01 19:14 Patient arrived in ED. ld1 19:14 Arm band placed on right wrist. ld1 19:16 Triage completed. ld1 19:18 Geovany Barksdale MD is Attending Physician. rn 19:20 Rey Whaley RN is Primary Nurse. as6 19:21 Patient has correct armband on for positive identification. Bed in low position. Call ld1 light in reach. Side rails up X2. shelter monitor on. Pulse ox on. NIBP on. Door closed. Noise minimized. Warm blanket given. 19:21 No provider procedures requiring assistance completed. Maintain EMS IV. Dressing ld1 intact. Good blood return noted. Site clean \T\ dry. Gauge \T\ site: 22 RFA. 19:44 CT Abd/Pelvis - Without Contrast In Process Unspecified. EDMS 20:40 XRAY Chest (1 view) In Process Unspecified. EDMS 22:15 Raj Barksdale MD is Hospitalizing Provider. rn 22:40 US Liver Only In Process Unspecified. EDMS 23:48 Patient admitted, IV remains in place. ld1 Administered Medications: 19:37 Drug: GI Cocktail without - (Maalox Suspension 30 ml, Lidocaine Liquid 2 % 15 as6 ml) Route: PO; 06/02 00:51 Follow up: Response: No adverse reaction as6 06/01 19:40 Drug: NS 0.9% 500 ml Route: IV; Rate: bolus; Site: right wrist; as6 06/02 00:51 Follow up: Response: No adverse reaction; IV Status: Completed infusion; IV Intake: as6 500ml 06/01 20:11 Drug: Metoprolol TARTRATE 50 mg Route: PO; kd3 06/02 00:53 Follow up: Response: No adverse reaction as6 06/01 20:29 Drug: morphine 4 mg Route: IVP; Site: right wrist; as6 06/02 00:53 Follow up: Response: No adverse reaction; RASS: Alert and Calm (0) as6 06/01 21:03 Drug: ProTONIX (pantoprazole) 40 mg Route: IVP; Site: right wrist; ld1 06/02 00:53 Follow up: Response: No adverse reaction as6 06/01 21:03 Drug: Lopressor (metoprolol) 5 mg Route: IVP; Site: right wrist; ld1 06/02 00:53 Follow up: Response: No adverse reaction as6 06/01 21:49 Drug: Zofran (Ondansetron) 4 mg Route: IVP; Site: right wrist; kd3 06/02 00:54 Follow up: Response: No adverse reaction as6 06/01 23:07 Drug: Dilaudid (HYDROmorphone) 0.5 mg Route: IVP; Site: right forearm; kd3 06/02 00:54 Follow up: Response: No adverse reaction; RASS: Alert and Calm (0) as6 06/01 23:08 Drug: Lopressor (metoprolol) 5 mg Route: IVP; Site: right forearm; kd3 06/02 00:54 Follow up: Response: No adverse reaction as6 06/01 23:46 Drug: Lopressor (metoprolol) 5 mg Route: IVP; Site: right wrist; ld1 06/02 00:54 Follow up: Response: No adverse reaction as6 00:23 Drug: Digoxin 0.5 mg Route: IVP; Site: right forearm; kd3 00:54 Follow up: Response: No adverse reaction as6 Intake: 00:51 IV: 500ml; Total: 500ml. as6 Outcome: 06/01 22:16 Decision to Hospitalize by Provider. rn 23:47 Admitted to Med/surg accompanied by tech, via wheelchair, room 408, with chart, Report ld1 called to EDWINA Streeter 23:47 Condition: stable 23:47 Instructed on the need for admit. 06/02 00:57 Patient left the ED. as6 Signatures: Dispatcher [employer] EDMS Geovany Barksdale MD MD rn Dibbern, Lauren, RN RN ld1 Rey Whaley RN RN as6 Len, Kinjal, RN RN kd3 Corrections: (The following items were deleted from the chart) 06/01 19:20 19:14 BP 134 / 116; Pulse 129bpm; Resp 24bpm; Pulse Ox 100% RA; 86.18 kg; Height 5 ft. ld1 7 in.; BMI: 29.7; Pain 8/10; ld1
--- NOTE | 2021-06-01 22:27 | P.HP ---
Certification for Inpatient Patient admitted to: Inpatient With expected LOS: >2 Midnights Patient will require the following post-hospital care: None Practitioner: I am a practitioner with admitting privileges, knowledge of patient current condition, hospital course, and medical plan of care. Services: Services provided to patient in accordance with Admission requirements found in Title 42 Section 412.3 of the Code of Federal Regulations Patient History Date of Service: 06/01/21 Reason for admission: A. fib RVR, abdominal pain History of Present Illness: 66-year-old female with history of atrial fibrillation on chronic anticoagulation therapy, CHF, hypertension, hypothyroidism presents emergency department for epigastric pain and vomiting. Patient reports that she is had intermittent problems with abdominal pain after having her gallbladder taken out last year. Patient also admits to drinking alcohol pretty heavily and regularly especially on the weekends and sometimes throughout the week. Patient reports that she typically splits a bottle of bourbon or whiskey with her when she does drink about the course of the evening. Patient was evaluated in the emergency department she was found to be in A. fib RVR with a rate around 1 30-1 40 with elevations in her LFTs and bilirubin levels. BNP was also elevated chest x-ray demonstrated mild CHF pattern patient incidentally tested positive for Covid. Patient had previous cholecystectomy liver ultrasound performed demonstrated mild fatty liver. Will admit for A. fib RVR, intractable abdominal pain with elevated LFTs. Allergies iodine Allergy (Verified 04/20/17 21:14) Unknown Home Medications: Albuterol Sulfate [Proair Hfa] 8.5 gm IH TID PRN #90 [id number] 04/25/17 Bupropion HCl [Wellbutrin] 150 mg PO DAILY 06/25/17 Digoxin [Lanoxin] 125 mcg PO DAILY 06/25/17 Fluticasone/Salmeterol [Airduo Respiclick 113-14 Mcg] 1 each IH BID PRN 06/25/17 Sertraline [Zoloft*] 50 mg PO DAILY 06/25/17 Apixaban [Eliquis *] 5 mg PO BID 07/29/18 Melatonin 10 mg PO BEDTIME PRN 07/29/18 Dexamethasone [Decadron] 6 mg PO DAILY 7 Days #7 tablet 05/06/21 Furosemide 20 mg PO DAILY 7 Days #7 tablet 05/06/21 - Past Medical/Surgical History Diabetic: No -: Chronic atrial fibrillation, chronic anti coagulation therapy -: Rheumatoid arthritis -: Hypertension -: Systolic CHF -: Mitral valve stenosis -: COPD -: Former tobacco use -: resp failure -: tonsillectomy -: c- section -: appendectomy -: tubal ligation Psychosocial/ Personal History: Patient is - Family History Mother -: Cancer, Other (see notes) Notes: M.S Father -: Heart disease, Cancer, Other (see notes) Notes: DVT's - Social History Smoking Status: Never smoker Alcohol use: Yes CD- Drugs: No Caffeine use: Yes Place of Residence: Home Review of Systems 10-point ROS is otherwise unremarkable Respiratory: Shortness of Breath Cardiovascular: Palpitations Gastrointestinal: Nausea, Vomiting, Abdominal Pain Physical Examination - Physical Exam General: Alert, In no apparent distress, Oriented x3 HEENT: Atraumatic, PERRLA, Mucous membr. moist/pink, EOMI, Sclerae nonicteric Neck: Supple, 2+ carotid pulse no bruit, No LAD, Without JVD or thyroid abnormality Respiratory: Diminished Cardiovascular: Regular rate/rhythm, Normal S1 S2 Capillary refill: <2 Seconds Gastrointestinal: Normal bowel sounds, No tenderness, No rebound, No guarding Musculoskeletal: No tenderness Integumentary: No rashes Neurological: Normal speech, Normal strength at 5/5 x4 extr, Normal tone, Normal affect Lymphatics: No axilla or inguinal lymphadenopathy - Studies Laboratory Data (last 24 hrs) 06/01/21 19:33: WBC 10.60, Hgb 12.4, Hct 37.1, Plt Count 329 06/01/21 19:33: Sodium 136, Potassium 3.9, BUN 19 H, Creatinine 0.90, Glucose 145 H, Total Bilirubin 3.3 H, AST 389 H*, ALT 462 H*, Alkaline Phosphatase 187 H, Lipase 95 Assessment and Plan - Plan Assessment: Atrial fibrillation with rapid ventricular response on chronic anticoagulation therapy Intractable abdominal pain, elevated LFTs Acute on chronic systolic congestive heart failure Hypertension History of mitral and tricuspid valve replacement Rheumatoid arthritis Alcohol abuse Plan: Atrial fibrillation with rapid ventricular response on chronic anticoagulation therapy: Monitor on telemetry, continue metoprolol 100 mg p.o. twice daily in addition to Eliquis 5 mg p.o. twice daily. Additional doses of IV push Lopressor as necessary to control rate. Blood pressure stable at this time. Consult cardiology if necessary. Intractable abdominal pain, elevated LFTs: Patient with previous cholecystectomy, does admit to drinking pretty regularly significant quantities of bourbon/whiskey. Possibly alcoholic liver disease. Will obtain INR with morning labs, GI consulted will also obtain hepatitis panel. Patient denies any IV drug use or other high risk behaviors. Acute on chronic systolic congestive heart failure: We will increase Lasix to IV 40 mg twice daily, continue other home medications. Monitor on telemetry. Hypertension: Continue metoprolol History of mitral and tricuspid valve replacement: Continue Eliquis, monitor on telemetry Rheumatoid arthritis: Continue home medications Alcohol abuse: Counseled on need for alcohol cessation especially in the setting of elevated LFTs. DVT PPX: Continue Eliquis Code status: Full Discharge Plan: Home Plan to discharge in: 48 Hours - Advance Directives Does patient have a Living Will: No Does patient have a Durable POA for Healthcare: No - Code Status/Comfort Care Code Status Assessed: Yes (Full) Critical Care: No Time Spent Managing Pts Care (In Minutes): 55
[2021-06-01] MEDS ORDERED: HYDROMORPHONE HCL 0.5 MG/0.5 ML INJ ONE (23:01)
[2021-06-02] MEDS ORDERED: DIGOXIN 0.25 MG/ML AMP ONE (00:19)
[2021-06-02] MEDS ORDERED: MORPHINE 2 MG/ML SYR IV PRN (01:20)
[2021-06-02] MEDS ORDERED: SODIUM CHLORIDE 0.9% 10ML INJ IV PRN (01:20)
[2021-06-02 02:00] VITALS: BMI 33.7
[2021-06-02] MEDS: ONDANSETRON 4 MG/2 ML VIAL IV PRN ×2 (03:21→08:27)
[2021-06-02] MEDS ORDERED: MORPHINE 4 MG/ML SYR ONE (03:24)
[2021-06-02 04:01] LABS: Protime INR 1.04
[2021-06-02 04:04] LABS: Absolute Lymphocytes (CBC) 1.2 K/uL (0.7-4.9); Hematocrit 37.6 % (36.0-45.0); Lymphocytes % 11.6 % (15.3-44.8); MPV 8.6 fL (7.6-11.3)
[2021-06-02 05:14] LABS: Albumin 3.5 g/dL (3.4-5.0); Bilirubin Total 4.1 mg/dL (0.2-1.0); Protein, Total 8.2 g/dL (6.4-8.2); Thyroid Stimulating Hormone 2.55 uIU/mL (0.360-3.740)
[2021-06-02 05:15] LABS: Potassium 4.6 mmol/L (3.5-5.1)
--- NOTE | 2021-06-02 06:35 | P.PN ---
Date of Service: 06/02/21
--- NOTE | 2021-06-02 08:26 | RAD REPORT ---
EXAM DESCRIPTION: US - Liver Only - 06/01/2021 10:40 pm CLINICAL HISTORY: elev. LFT Elevated liver function tests. COMPARISON: No comparisons FINDINGS: The liver demonstrates diffuse fatty infiltration.No focal liver lesion or intrahepatic bi liary dilatation.No evidence of portal vein thrombosis. The spleen is normal in size measuring 10 cm. IMPRESSION: Fatty liver.
[2021-06-02] MEDS: METOPROLOL TAR 50 MG TAB PO SCH ×2 (08:28→21:00)
[2021-06-02] MEDS: FUROSEMIDE 40 MG/4 ML VIAL IV SCH ×2 (08:33→17:00)
[2021-06-02] MEDS: APIXABAN 5 MG TABLET PO SCH ×2 (08:34→21:10)
[2021-06-02] MEDS ORDERED: PANTOPRAZOLE 40 MG INJ IVP SCH (09:00)
[2021-06-02] MEDS: MORPHINE 4 MG/ML SYR IV PRN ×2 (09:59→14:45)
--- NOTE | 2021-06-02 12:37 | P.PN ---
Subjective Date of Service: 06/02/21 Primary Care Provider: Juan David Chief Complaint: A. fib RVR, abdominal pain Subjective: No new changes Review of Systems 10-point ROS is otherwise unremarkable Gastrointestinal: Abdominal Pain Physical Examination - Vital Signs Temperature: 97.2 F Blood Pressure: 97/52 Pulse: 65 Respirations: 19 Pulse Ox (%): 94 - Physical Exam General: Alert, In no apparent distress HEENT: Atraumatic, PERRLA, EOMI Neck: Supple, JVD not distended Respiratory: Clear to auscultation bilaterally, Normal air movement Cardiovascular: Regular rate/rhythm, Normal S1 S2 Gastrointestinal: Normal bowel sounds, No tenderness Musculoskeletal: No tenderness Integumentary: No rashes Neurological: Normal speech, Normal tone, Normal affect Lymphatics: No axilla or inguinal lymphadenopathy - Studies Laboratory Data (last 24 hrs) 06/01/21 19:33: WBC 10.60, Hgb 12.4, Hct 37.1, Plt Count 329 06/01/21 19:33: Sodium 136, Potassium 3.9, BUN 19 H, Creatinine 0.90, Glucose 145 H, Total Bilirubin 3.3 H, AST 389 H*, ALT 462 H*, Alkaline Phosphatase 187 H, Lipase 95 Assessment And Plan - Current Problems (Diagnosis) (1) Alcohol abuse Current Visit: Yes Status: Acute Plan: Will start the patient on naltraxone. Will give ativan for agitation. She does not report any history of delirium tremens or withdrawal seizures. (2) Atrial fibrillation with RVR Onset Date: 04/23/17 Current Visit: No Status: Acute Plan: Patient is better controlled with metoprolol. will order an echo. Was normal exactly a year ago. (3) Liver enzyme elevation Current Visit: Yes Status: Acute Plan: being seen by Dr. Atwood. Who ordered an MRCP. She has had a cholecystecomy in the past. (4) COVID Current Visit: No Status: Chronic Plan: Had covid a month ago. She is still testing positive. No respiratory symptoms. She does not need steroids at this time. (5) HTN (hypertension) Onset Date: 04/23/17 Current Visit: No Status: Chronic Plan: will review her meds and adjust as necessary Qualifiers: Hypertension type: primary hypertension Qualified Code(s): I10 - Essential (primary) hypertension Discharge Plan: Home Plan to discharge in: 48 Hours - Code Status/Comfort Care Code Status Assessed: No Physician Review: Patient Assessed, Agree with Above Assessment and Plan Critical Care: No Time Spent Managing PTS Care (In Minutes): 30
[2021-06-02] MEDS ORDERED: LORazepam 2 MG/ML VIAL IV PRN (12:38)
--- NOTE | 2021-06-02 13:32 | RAD REPORT ---
EXAM DESCRIPTION: MRI - Cholangiogram - 06/02/2021 12:53 pm CLINICAL HISTORY: Abdominal pain, abnormal liver function studies, history of cholecystectomy COMPARISON: CT 06/01/2021 TECHNIQUE: Axial and coronal heavily T2 weighted sequences were obtained. Coronal T2 HASTE fat satur ation static and coronal multiplane reconstruction imaging generated and reviewed. Horizontal and joel tical axis rotational views obtained using maximum intensity projection (MIP) protocol. FINDINGS: The extrahepatic biliary tree is 11 mm in diameter which is normal range for a post cholec ystectomy patient. No intrahepatic biliary tree dilatation identified. Cystic duct remnant shows no s uspicious finding. No pancreatic duct dilatation or abnormality seen. No intrinsic stricture, mass or web identified within the biliary tree. No duct stone confirmed. The distal most aspect of the duct is within range of normal. The truncation or tapering at the distal aspect of the duct is not outside of normal range in the axial and coronal heavily T2 weighted sequences show no filling defect in the duct. IMPRESSION: No duct stone confirmed and no abnormal biliary tree dilatation seen. If the patient has continued clinical findings or laboratory findings for obstructing duct stone, ERC P may be needed.
--- NOTE | 2021-06-02 22:27 | CON ---
Date of Consultation: 06/02/2021 Reason For The Consultation: Atrial fibrillation with rapid ventricular response. History Of Present Illness: 66-year-old female with history of chronic atrial fibrillation, CHF, hyp ertension, COPD, mitral valve replacement, and tricuspid valve replacement, who presented with abdomi nal pain and palpitations, was found to be in atrial fibrillation with rapid ventricular response rat e of 130 to 140, responded very well to metoprolol and rate is controlled now and does not have any p alpitations any further. Past Medical History: As outlined above in the HPI. Medications: Refer reconciliation sheet for detailed list. Allergies: IODINE. Family History: No premature coronary artery disease or cancer. Social History: Does not smoke or drink. Does not use any drugs. Review of Systems: All systems reviewed and they were negative except as mentioned in the HPI. Physical Examination: Vital Signs: Reviewed. Head and Neck: Pupils are equal and reactive to light. Intact eye movements. No JVD. No cervical lymphadenopathy. Neck: Supple. Thyroid is not enlarged. Lungs: Clear to auscultation bilaterally. No rhonchi, rales, or crackles. No accessory muscle use. Heart: Irregularly irregular. No extra sounds. Abdomen: Soft and nontender. Bowel sounds positive. No organomegaly. No masses or hernia. No rig idity or rebound. Extremities: No clubbing, cyanosis. Intact pulses. Skin: No rashes. Neuro: Alert, awake, and oriented x3. No acute focal deficits appreciated. Investigations: Labs were reviewed. Assessment And Recommendations: 1.Atrial fibrillation, rate is controlled at this point. Continue metoprolol at the current dose an d anticoagulation and follow up the echo results. 2.Epigastric pain. Troponin is negative. The patient had a cardiac catheterization in 2018, which was clean. This pain is likely noncardiac and evaluate for other causes of it. Thank you for the consult. SR/MODL Voice ID: [id number] Report ID: [id number]
[2021-06-03] MEDS: MORPHINE 4 MG/ML SYR IV PRN ×2 (03:40→11:15)
[2021-06-03 03:58] LABS: Protime INR 1.21
[2021-06-03 03:59] LABS: Absolute Lymphocytes (CBC) 1.5 K/uL (0.7-4.9); Hematocrit 34.1 % (36.0-45.0); Lymphocytes % 22.1 % (15.3-44.8); MPV 8.7 fL (7.6-11.3); RBC Red Blood Cell Count 3.66 M/uL (3.86-4.86)
[2021-06-03 04:27] LABS: Albumin 3.2 g/dL (3.4-5.0); Potassium 3.3 mmol/L (3.5-5.1); Protein, Total 7.4 g/dL (6.4-8.2)
[2021-06-03] MEDS ORDERED: SODIUM CHLORIDE 0.9% 10ML INJ IV PRN (07:30)
--- NOTE | 2021-06-03 08:20 | ECHO ---
HEIGHT: 5 ft 9 in WEIGHT: 228 lb 14.4 oz DATE OF STUDY: 06/02/[address]: Lasha Fall MD 2-DIMENSIONAL: YES M.MODE: YES DOPPLER: YES COLOR FLOW: YES TDS: NO PORTABLE: NO DEFINITY: NO BUBBLE STUDY: NO DIAGNOSIS: ATRIAL FIBRILLATION CARDIAC HISTORY: CATHERIZATION: NO SURGERY: NO PROSTHETIC VALVE: YES PACEMAKER: NO MEASUREMENTS (cm) DIASTOLIC (NORMALS) SYSTOLIC (NORMALS) IVSd 1.2 (0.6-1.2) LA Diam 4.4 (1.9-4.0) LVEF 59% LVIDd 4.1 (3.5-5.7) LVIDs 2.8 (2.0-3.5) %FS 31% LVPWd 1.3 (0.6-1.2) Ao Diam 2.3 (2.0-3.7) 2 DIMENSIONAL ASSESSMENT: RIGHT ATRIUM: NORMAL LEFT ATRIUM: ENLARGED RIGHT VENTRICLE: NORMAL LEFT VENTRICLE: NORMAL TRICUSPID VALVE: MITRAL VALVE: PROSTHESIS PULMONIC VALVE: AORTIC VALVE: PERICARDIAL EFFUSION: NONE AORTIC ROOT: NORMAL LEFT VENTRICULAR WALL MOTION: NORMAL DOPPLER/COLOR FLOW: SEE BELOW COMMENTS: NORMAL LEFT VENTRICULAR EJECTION FRACTION 55-60%. SEVERE LEFT ATRIAL ENLARGEMENT. MODERATE TRICUSPID REGURGITATION. MILD AORTIC AND PULMONARY REGURGITATION. MITRAL VALVE PROSTHESIS IS PRESENT OR RING WITH NO MITRAL REGURGITATION OR MITRAL STENOSIS. ATRIAL FIBRILLATION. TECHNOLOGIST: Louis SALMON
[2021-06-03] MEDS: APIXABAN 5 MG TABLET PO SCH ×2 (09:00→20:20)
[2021-06-03] MEDS ORDERED: POTASSIUM CL SA 10 MEQ TAB PO ONE ×2 (09:00→10:10)
[2021-06-03] MEDS: FUROSEMIDE 40 MG/4 ML VIAL IV SCH ×2 (09:00→16:59)
[2021-06-03] MEDS: PANTOPRAZOLE 40 MG INJ IVP SCH ×2 (09:00→20:21)
[2021-06-03] MEDS: METOPROLOL TAR 50 MG TAB PO SCH ×2 (09:00→20:20)
[2021-06-03] MEDS: BISMUTH SUBSALICYL 262MG/15ML-240 ML BTL PO SCH ×3 (13:00→21:00)
[2021-06-03] MEDS ORDERED: Ringers Lactate 1,000 ML IV ONE (13:21)
--- NOTE | 2021-06-03 14:24 | P.PN ---
Subjective Date of Service: 06/03/21 Primary Care Provider: Juan David Chief Complaint: A. fib RVR, abdominal pain Subjective: Improving (still has reflux pain with food.) Review of Systems 10-point ROS is otherwise unremarkable Gastrointestinal: Abdominal Pain (with food) Physical Examination - Vital Signs Temperature: 98.2 F Blood Pressure: 116/73 Pulse: 115 Respirations: 18 Pulse Ox (%): 92 - Physical Exam General: Alert, In no apparent distress HEENT: Atraumatic, PERRLA, EOMI Neck: Supple, JVD not distended Respiratory: Clear to auscultation bilaterally, Normal air movement Cardiovascular: Regular rate/rhythm, Normal S1 S2 Gastrointestinal: Normal bowel sounds, No tenderness Musculoskeletal: No tenderness Integumentary: No rashes Neurological: Normal speech, Normal tone, Normal affect Lymphatics: No axilla or inguinal lymphadenopathy Assessment And Plan - Current Problems (Diagnosis) (1) Alcohol abuse Current Visit: Yes Status: Acute Plan: Will start the patient on naltraxone. Will give ativan for agitation. She does not report any history of delirium tremens or withdrawal seizures. (2) Atrial fibrillation with RVR Onset Date: 04/23/17 Current Visit: No Status: Acute Plan: Patient is better controlled with metoprolol. will order an echo. Was normal exactly a year ago. (3) Liver enzyme elevation Current Visit: Yes Status: Acute Plan: being seen by Dr. Atwood. Who ordered an MRCP. She has had a cholecystecomy in the past. 3/4 improvement. No obstruction in the duct. Most likely due to alcohol abuse. (4) COVID Current Visit: No Status: Chronic Plan: Had covid a month ago. She is still testing positive. No respiratory symptoms. She does not need steroids at this time. (5) HTN (hypertension) Onset Date: 04/23/17 Current Visit: No Status: Chronic Plan: will review her meds and adjust as necessary Qualifiers: Hypertension type: primary hypertension Qualified Code(s): I10 - Essential (primary) hypertension (6) Gastritis Current Visit: Yes Status: Acute Plan: Plans for EGD today. Will start her on bismuth and switch her to a bland diet. Qualifiers: Gastritis type: alcoholic Chronicity: acute Gastritis bleeding: presence of bleeding unspecified Qualified Code(s): K29.20 - Alcoholic gastritis without bleeding Discharge Plan: [facility] - Code Status/Comfort Care Code Status Assessed: No Physician Review: Patient Assessed, Agree with Above Assessment and Plan Critical Care: No Time Spent Managing PTS Care (In Minutes): 25
[2021-06-03] MEDS ORDERED: LIDOCAINE 1% MPF 30 ML VIAL ONE (14:48)
[2021-06-03] MEDS ORDERED: propofoL 200 MG/20 ML VIAL IV ONE ×2 (14:48)
--- NOTE | 2021-06-03 15:31 | ENDO RPT ---
[address], [address] EGD PROCEDURE REPORT EXAM DATE: 06/03/2021 PATIENT NAME: Celsa Lorenzo MR#: [id number] BIRTHDATE: 1955 ATTENDING: Suresh Duran Dr STATUS: inpatient - 7 DRIVER STARTING GATE: Yvonne Goodwin and Johanne Jay RN INDICATIONS: The patient is a 66 yr old Female here for an EGD due to mid epigastric abdominal pain PROCEDURE PERFORMED: EGD with biopsy MEDICATIONS: Per Anesthesia. TOPICAL ANESTHETIC: none CONSENT: The patient understands the risks and benefits of the procedure and understands that these risks include, but are not limited to: sedation, allergic reaction, infection, perforation and/or bleeding. Alternative means of evaluation and treatment include, among others: physical exam, x-rays, and/or surgical intervention. The patient elects to proceed with this endoscopic procedure. DESCRIPTION OF PROCEDURE: During intra-op preparation period all mechanical medical equipment was checked for proper function. Hand hygiene and appropriate measures for infection prevention was taken. Procedure, possible complications, and alternatives including but not limited to the possibility of bleeding, perforation, tear, infection, sepsis, need for surgery, need for blood transfusion, and anesthesia related complications were explained to the patient. After the risks, benefits and alternatives of the procedure were thoroughly explained, Informed consent was verified, confirmed and timeout was successfully executed by the treatment team. The patient was placed in the left lateral position. The patient was anesthetized with topical anesthesia. Through the anesthetized oropharyngeal area, the scope was passed without any difficulty. The Pentax EG-[id number] ([id number]) endoscope was introduced through the mouth and advanced to the third portion of the duodenum. Retroflexed views revealed a small hiatal hernia. The gastroscope was then slowly withdrawn and removed. LA Class B esophagitis was found in the lower esophagus. Possilble Toth's esophagus was found in the lower esophagus. Multiple biopsies were obtained and sent to pathology. A small hiatal hernia was found Mild gastritis was found in the body and the antrum of the stomach. Multiple biopsies were obtained and sent to pathology. Multiple erosions were found in the antrum. Duodenitis was found in the bulb of the duodenum. ADVERSE EVENTS: There were no complications. IMPRESSIONS: 1. LA Class B esophagitis in the lower esophagus 2. Possible Toth's esophagus in the lower esophagus, s/p biopsies 3. Small hiatal hernia 4. Mild gastritis in the body and the antrum of the stomach, s/p biopsies 5. Multiple (6) erosions in the antrum 6. Duodenitis in the bulb of the duodenum RECOMMENDATIONS: 1. await biopsy results 2. acid suppression therapy REPEAT EXAM: Suresh Durna Dr eSigned: Suresh Duran Dr 06/03/2021 3:31 PM cc: CPT CODES: ICD9 CODES: PATIENT NAME: Celsa Lorenzo MR#: [id number]
[2021-06-03] MEDS: NA CHLORIDE 0.9% 1,000 ML IV SCH (16:59)
[2021-06-04] MEDS: MORPHINE 4 MG/ML SYR IV PRN (03:53)
[2021-06-04] MEDS: NA CHLORIDE 0.9% 1,000 ML IV SCH (04:00)
[2021-06-04 04:03] VITALS: O2SAT 96
[2021-06-04 04:36] LABS: Absolute Lymphocytes (CBC) 1.5 K/uL (0.7-4.9); Hematocrit 36.5 % (36.0-45.0); Lymphocytes % 23.7 % (15.3-44.8); MPV 8.7 fL (7.6-11.3)
[2021-06-04 04:37] LABS: Protime INR 1.17
[2021-06-04 05:11] LABS: Albumin 3.1 g/dL (3.4-5.0); Protein, Total 7.4 g/dL (6.4-8.2)
[2021-06-04] MEDS ORDERED: POTASSIUM CL SA 10 MEQ TAB PO ONE ×2 (06:18→06:25)
[2021-06-04] MEDS: BISMUTH SUBSALICYL 262MG/15ML-240 ML BTL PO SCH (08:33)
[2021-06-04] MEDS: METOPROLOL TAR 50 MG TAB PO SCH (08:34)
[2021-06-04] MEDS: APIXABAN 5 MG TABLET PO SCH (08:35)
[2021-06-04] MEDS: FUROSEMIDE 40 MG/4 ML VIAL IV SCH (08:35)
[2021-06-04] MEDS: PANTOPRAZOLE 40 MG INJ IVP SCH (08:35)
[2021-06-04 08:36] VITALS: BP 160/77
[2021-06-04 09:35] VITALS: TEMP 97.1
--- NOTE | 2021-06-04 10:54 | P.DS ---
Admission Date: 06/01/21 Discharge Date: 06/04/21 Primary Care Provider: Juan David Disposition: ROUTINE DISCHARGE Discharge Condition: GOOD Reason for Admission: A. fib RVR, abdominal pain - Problems (1) Alcohol abuse Current Visit: Yes Status: Acute (2) Atrial fibrillation with RVR Onset Date: 04/23/17 Current Visit: No Status: Acute (3) Liver enzyme elevation Current Visit: Yes Status: Acute (4) COVID Current Visit: No Status: Chronic (5) HTN (hypertension) Onset Date: 04/23/17 Current Visit: No Status: Chronic Qualifiers: Hypertension type: primary hypertension Qualified Code(s): I10 - Essential (primary) hypertension (6) Gastritis Current Visit: Yes Status: Acute Qualifiers: Gastritis type: alcoholic Chronicity: acute Gastritis bleeding: presence of bleeding unspecified Qualified Code(s): K29.20 - Alcoholic gastritis without bleeding Brief History of Present Illness: Patient was admitted for tachycardia and alcohol abuse. She had elevated liver enzymes. Was admitted and consult placed to Cardiology and GI Please see the hospitalist note for a full H&P Hospital Course: Patient was seen by Dr. Ash and Dr. Atwood. The patient had an MRCP and EGD. Had gastritis and duodenitis. There are cultures pending. However the patient is stable and tolerating orals. Will discharge her home on protonix and bismuth. Will also add naltroxene for maintaining alcohols cessation. Will have her follow up with Dr. Atwood and Lexx in a week. Vital Signs/Physical Exam: Temp Pulse Resp BP Pulse Ox 97.1 F 97 H 18 160/77 H 96 06/04/21 08:00 06/04/21 08:35 06/04/21 08:00 06/04/21 08:35 06/04/21 08:00 General: Alert, In no apparent distress HEENT: Atraumatic, PERRLA, EOMI Neck: Supple, JVD not distended Respiratory: Clear to auscultation bilaterally, Normal air movement Cardiovascular: Regular rate/rhythm, Normal S1 S2 Gastrointestinal: Normal bowel sounds, No tenderness Musculoskeletal: No tenderness Integumentary: No rashes Neurological: Normal speech, Normal tone, Normal affect Lymphatics: No axilla or inguinal lymphadenopathy Laboratory Data at Discharge: WBC 6.50 K/uL (4.3-10.9) 06/04/21 03:29 Hgb 12.0 g/dL (12.0-15.0) 06/04/21 03:29 Hct 36.5 % (36.0-45.0) 06/04/21 03:29 Plt Count 252 K/uL (152-406) 06/04/21 03:29 PT 13.5 SECONDS (9.5-12.5) H 06/04/21 03:29 INR 1.17 06/04/21 03:29 Sodium 136 mmol/L (136-145) 06/04/21 03:29 Potassium 3.0 mmol/L (3.5-5.1) L 06/04/21 03:29 BUN 15 mg/dL (7-18) 06/04/21 03:29 Creatinine 0.70 mg/dL (0.55-1.3) 06/04/21 03:29 Glucose 87 mg/dL (74-106) 06/04/21 03:29 Total Bilirubin 1.0 mg/dL (0.2-1.0) 06/04/21 03:29 AST 203 U/L (15-37) H 06/04/21 03:29 ALT 358 U/L (12-78) H* 06/04/21 03:29 Alkaline Phosphatase 160 U/L (45-117) H 06/04/21 03:29 Triglycerides 72 mg/dL (<150) 06/02/21 03:30 Cholesterol 219 mg/dL (<200) H 06/02/21 03:30 HDL Cholesterol 61 mg/dL (40-60) H 06/02/21 03:30 Cholesterol/HDL Ratio 3.59 06/02/21 03:30 Lipase 95 U/L (73-393) 06/01/21 19:33 Home Medications: Albuterol Sulfate [Proair Hfa] 8.5 gm IH TID PRN #90 hfa.aer.ad 04/25/17 Bupropion HCl [Wellbutrin] 150 mg PO DAILY 06/25/17 Fluticasone/Salmeterol [Airduo Respiclick 113-14 Mcg] 1 each IH BID PRN 06/25/17 Sertraline [Zoloft*] 50 mg PO DAILY 06/25/17 Apixaban [Eliquis *] 5 mg PO BID 07/29/18 Melatonin 10 mg PO BEDTIME PRN 07/29/18 Furosemide 40 mg PO DAILY 06/02/21 Metoprolol Tartrate [Lopressor] 100 mg PO BID 06/02/21 Tofacitinib Citrate [Xeljanz Xr] 11 mg PO DAILY 06/02/21 Bismuth Subsalicylate 262 mg PO QID 30 Days #120 tab.chew 06/04/21 Pantoprazole Sodium [Protonix] 40 mg PO BID 90 Days #180 tablet. 06/04/21 New Medications: Bismuth Subsalicylate 262 mg PO QID 30 Days #120 tab.chew Pantoprazole Sodium [Protonix] 40 mg PO BID 90 Days #180 tablet. Diet: Brackney Activity: Ad yariel Followup: Lasha Fall MD [ACTIVE - CAN ADMIT] - 1 Week Suresh Duran MD [ASSOCIATE-ACTIVE - CAN ADMIT] - 1 Week Time spent managing pt's care (in minutes): 30
[2021-06-04] MEDS ORDERED: PANTOPRAZOLE 40MG TABLET PO SCH (21:00)
--- NOTE | 2021-06-04 21:30 | PN ---
Date of Progress Note: 06/03/2021 Subjective: Ms. Lorenzo was admitted to Dr. Fall. She had atrial fibrillation that is chronic. Sh e has had mitral valve and tricuspid valve replacement. She has a history of congestive heart failur e. She has COPD. Came in with mid-epigastric pain. An endoscopy is planned by Dr. Duran today. F rom an atrial fibrillation standpoint, her heart rate is controlled on metoprolol. She is on Eliquis . We will see what the endoscopy shows. Otherwise, she is ready to go home from our standpoint. We will see her in the office in the very near future. Continue her normal home therapy. SHARON/RINA Voice ID: [id number] Report ID: [id number]
[2021-06-07 04:48] LABS: HBsAG Nonreactive (Nonreactive)
== END 2021-06-04 11:57 | disposition home or self-care (01) | DRG 308 ==
LOC: ER 19:13 → ERHOLD 22:09 → 4TH 06-02 00:06
PROVIDERS: ADMIT Internal Medicine; ATTEND Internal Medicine
PROC: 0DB68ZX Excision of Stomach, Via Natural or Artificial Opening Endoscopic, Diagnostic (ICD-10-PCS; 2021-06-03)
PROC: 0DB38ZX Excision of Lower Esophagus, Via Natural or Artificial Opening Endoscopic, Diagnostic (ICD-10-PCS; principal; 2021-06-03 13:00)
DX: I48.19 Other persistent atrial fibrillation (principal); U07.1 COVID-19; I50.23 Acute on chronic systolic (congestive) heart failure; K29.20 Alcoholic gastritis without bleeding; J44.9 Chronic obstructive pulmonary disease, unspecified; M06.9 Rheumatoid arthritis, unspecified; K21.9 Gastro-esophageal reflux disease without esophagitis; K29.80 Duodenitis without bleeding; K20.90 Esophagitis, unspecified without bleeding; K44.9 Diaphragmatic hernia without obstruction or gangrene; F10.10 Alcohol abuse, uncomplicated; I11.0 Hypertensive heart disease with heart failure; R79.89 Other specified abnormal findings of blood chemistry; Z90.49 Acquired absence of other specified parts of digestive tract; Z98.51 Tubal ligation status; Z79.01 Long term (current) use of anticoagulants; Z79.899 Other long term (current) drug therapy; Z95.2 Presence of prosthetic heart valve; Z91.048 Other nonmedicinal substance allergy status; Z87.891 Personal history of nicotine dependence
CPT/HCPCS: 0240U; 36415; 71045; 74176; 74181; 76705; 80048; 80053; 80061; 80074; 80076; 80320; 80329; 82977; 83690; 83880; 84439; 84443; 84484; 85025; 85610; 88305; 88312; 88313; 93005; 93306; 99285; C9113; J1160; J1170; J1940; J2405; J2704; J7030; J7040; J7120

== ENCOUNTER 2021-11-01 06:30 | Day surgery (SDC) | payer OTHER ==
--- NOTE | 2021-10-28 11:50 | RAD REPORT ---
EXAM DESCRIPTION: RAD - Chest Pa And Lat (2 Views) - 10/28/2021 11:38 am CLINICAL HISTORY: pre procedure screening COMPARISON: Chest Single View dated 06/01/2021; Chest Single View dated 05/04/2021; Chest Single View da diana 05/01/2021; Chest Single View dated 04/29/2021 FINDINGS: Lines: None. Lungs: Prominence of the pulmonary vasculature but no zoe pulmonary edema or consolidation. Pleural: No significant pleural effusions or pneumothorax. Cardiac: Cardiomegaly. Sternotomy. Left atrial appendage closure device. Valve prosthesis. Bones: No acute fractures. Other: IMPRESSION: Pulmonary vascular congestion without zoe pulmonary edema or consolidative airspace di sease.
[2021-10-28 11:59] LABS: Hematocrit 37.6 % (36.0-45.0); MCV 85.1 fL (80-100); RBC Red Blood Cell Count 4.42 M/uL (3.86-4.86)
[2021-10-28 12:00] LABS: Absolute Lymphocytes (CBC) 1.1 K/uL (0.7-4.9); Lymphocytes % 11.6 % (15.3-44.8); MPV 7.6 fL (7.6-11.3)
[2021-10-28 12:09] LABS: Protime INR 1.45
[2021-10-28 12:17] LABS: Potassium 3.9 mmol/L (3.5-5.1)
[2021-10-28 12:32] LABS: SARS-CoV-2 Antigen Rapid Res Negative (Negative)
[2021-11-01] MEDS ORDERED: FENTANYL CITR 100 MCG/2 ML ONE (06:52)
[2021-11-01] MEDS ORDERED: MIDAZOLAM HCL 2 MG/2 ML INJ ONE (06:53)
[2021-11-01] MEDS ORDERED: MIDAZOLAM HCL 10 ML ONE (06:53)
[2021-11-01] MEDS ORDERED: METOPROLOL TARTRATE 5 MG/5 ML INJ IV ONE (06:54)
[2021-11-01] MEDS ORDERED: ATROPINE SULF 1 MG/10 ML SYR IV ONE (06:54)
[2021-11-01] MEDS ORDERED: FLUMAZENIL 0.1 MG/ML (5 mL VIAL) IV ONE (06:54)
[2021-11-01] MEDS ORDERED: NA CHLORIDE 0.9% 500 ML ONE (07:06)
--- NOTE | 2021-11-02 07:23 | EKG ---
Test Date: 2021-11-01 Test Time: 08:01:37 Licensed Social Worker: RYLEE MEASUREMENT RESULTS: Intervals: Rate: 50 NE: 196 QRSD: 86 QT: 506 QTc: 461 Hughes: P: 79 NE: 196 QRS: 1 T: 48 INTERPRETIVE STATEMENTS: Sinus bradycardia with occasional premature ventricular complexes ST & T wave abnormality, consider anterior ischemia Abnormal ECG Compared to ECG 06/01/2021 19:20:14 Ventricular premature complex(es) now present Possible ischemia now present Atrial fibrillation no longer present ST (T wave) deviation still present Electronically Signed On 11-02-21 07:19:37 CDT by Dilip Ash
== END 2021-11-01 08:52 | disposition home or self-care (01) ==
LOC: CCL 06:30
DX: I48.91 Unspecified atrial fibrillation (principal); I10 Essential (primary) hypertension; E11.9 Type 2 diabetes mellitus without complications; Z95.2 Presence of prosthetic heart valve; Z79.01 Long term (current) use of anticoagulants; Z79.899 Other long term (current) drug therapy; Z91.041 Radiographic dye allergy status; Z87.891 Personal history of nicotine dependence; Z20.822 Contact with and (suspected) exposure to COVID-19; Z82.49 Family history of ischemic heart disease and other diseases of the circulatory system
CPT/HCPCS: 93005; 85025; 80048; 36415; 85610; 85730; 71046; 92960; 87811; J2250 ×2; J3010; J7040

== ENCOUNTER 2022-11-02 22:26 | Inpatient (IN) | payer OTHER ==
--- OUTSIDE RECORDS SUMMARY | 2022-11-02 23:00 | XMS REPORT | Continuity of Care Document ---
:1955 Author Organization [facility] t Address [address] [address] [place] [address] Care Team Providers Name Role Phone Lasha Fall MD Primary Care Physician [phone] SYSTEM, PROVIDER NOT IN Attending Clinician Unavailable Jocelyn Fay MD Attending Clinician JOCELYN FAY Attending Clinician Unavailable JOCELYN FAY Attending Clinician Unavailable Elinor Mejia Attending Clinician ELINOR YI Attending Clinician Unavailable Osiris Sosa RN Attending Clinician Unavailable Aimee Cooper MD Attending Clinician AIMEE COOPER Attending Clinician Unavailable 2, detention Rad Oncology Linac Attending Clinician Unavailable 1, detention Rad Oncology [place] Attending Clinician Unavailable Doctor Unassigned, Tab Attending Clinician Unavailable Sandra Brandon MD Attending Clinician SANDRA BRANDON Attending Clinician Unavailable [facility] Attending Clinician Unavailable Physics, detention Rad Onc Attending Clinician Unavailable CARINA [place] Attending Clinician Unavailable Ct, [facility] Rad Oncology Attending Clinician Unavailable 2, [facility] Infusion Chair Attending Clinician Unavailable Carina [place] PA-C Attending Clinician Unknown, Attending Attending Clinician Unavailable 6, [facility] Infusion Chair Attending Clinician Unavailable 1, [facility] Infusion Chair Attending Clinician Unavailable 10, [facility] Infusion Chair Attending Clinician Unavailable Cecilio Fay MD Attending Clinician Pob, [facility] Main Attending Clinician Unavailable PENNY MCRAE Attending Clinician Unavailable Jameson Wiggins LMSW Attending Clinician Unavailable Penny Mcrae PA-C Attending Clinician Helder Albright MD Attending Clinician RUPAL ANTONIO Attending Clinician Unavailable Rupal Antonio MD Attending Clinician Verna PAULINO, Ti Attending Clinician TI MOYA Attending Clinician Unavailable NICHOLAS Attending Clinician Unavailable Sam PAULINO, Gill Euceda Attending Clinician Brandi Moncada MA Attending Clinician Unavailable Enrico BLAND, Ev Attending Clinician Unavailable Krista Hendrickson MD Attending Clinician [phone] Jean-Paul Ambrose DO Attending Clinician Bo White Attending Clinician Kenny Mera MD Attending Clinician Pily Pedraza MD Attending Clinician Mars Mcclellan MD Attending Clinician Gabriella Nascimento CRNA Attending Clinician Nadir SALINAS, Gm Cornell Attending Clinician [phone] Veronica Velasquez RN Attending Clinician Unavailable Maureen Blanca MA Attending Clinician Unavailable Abel Adkins MD Attending Clinician Jovita Harper APRN Attending Clinician MD MG TAVERAS Attending Clinician Unavail able Provider, Unknown Attending Clinician Unavailable Anna Marie Castellon MD Attending Clinician Vickie Acevedo MA Attending Clinician Unavailable Jeremy Penaloza DO Attending Clinician Marie Santiago MA Attending Clinician Unavailable SHEA LIANG Attending Clinician Unavailable NANI LI Attending Clinician Unavailable ANNA MARIE CASTELLON Attending Clinician Unavailable 1, [facility] Attending Clinician Unavailable AIMEE COOPER Admitting Clinician Unavailable JOCELYN FAY Admitting Clinician Unavailable RAVIN_MARY Admitting Clinician Unavailable KRISTA HENDRICKSON Admitting Clinician Unavailable GM TAVERAS Admitting Clinician Unavailable MD GM TAVERAS Admitting Clinician Unavail able NANI LI Admitting Clinician Unavailable Payers Payer Name Policy Type Policy Number Effective Date Expiration Date S matt COMMERCIAL [id number] 2017 NON-CONTRACT 00:00:00 GENERIC AARP/MEDICARE [id number] 2019 COMPLETE 00:00:00 Problems Condition Condition Condition Status Onset Resolution Last Treating Co mments Source Name Details Category Date Date Treatment Clinician Date S/P mitral S/P mitral Disease Active U debbi valve valve 10-31 ity of repair repair 00:00: [place] [facility] Sacral Sacral Disease Active Univers insufficie insufficie 10-31 it y of ncy ncy 00:00: [place] fracture, fracture, 00 [facility] nicolas initial initial Branch encounter encounter Abnormal Abnormal Disease Active Unive rs positron positron 10-31 ity of emission emission 00:00: [place] tomography tomography 00 Wi dical (PET) scan (PET) scan Br anch History of History of Disease Active U debbi claustroph claustroph 7-28 it y of obia obia 00:00: [place] [facility] 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 00:00[place] vulva of vulva 00 Medica l Branch Vulvar Vulvar Disease Active 2021-04 Univers lesion lesion 1-15 ity of 00:00: [place] [facility] History of History of Disease Active 2021-04 U debbi hypertensi hypertensi 1-15 it y of on on 00:00: [place] [facility] Personal Personal Disease Active 2021-04 Unive rs history of history of 1-15 it y of tobacco tobacco 00:00: [place] use use 00 Medical Branch Choledocho Choledocho Disease Active M ethodi lithiasis lithiasis -17 st 00:00: Hospita 00 l Calculus Calculus Disease Active Overview: Me thodi of of 6-[address] gallbladde gallbladde 00:00: g of this Hospita r and bile r and bile 00 note l duct with duct with might be acute acute different cholecysti cholecysti from the tis, with tis, with original. obstructio obstructio Added n n automatic ally from request for surgery [id number] S/P MVR S/P MVR Disease Active Methodi [...] Added automatic ally from request for surgery [id number] Nonrheumat Nonrheumat Disease Active Overview : Methodi ic ic 3-[address] tricuspid tricuspid 00:00: g of this H ospita valve valve 00 note l regurgitat regurgitat might be ion ion different from the original. Added automatic ally from request for surgery [id number] Acute on Acute on Disease Active Unive rs chronic chronic 6-15 ity of diastolic diastolic 00:00[place] congestive congestive 00 Me dical heart heart Branch failure failure Pulmonary Pulmonary Disease Active Uni vers embolism embolism 9-11 ity of 00:00: [place] 00 Medical Branch Atrial Atrial Disease Active Univers fibrillati fibrillati 8 it y of on on 00:00: [place] [facility] BMI BMI Disease Active Univers 33.0-33.9, 33.0-33.9, 8-06 it y of adult adult 00:00: [place] [facility] Chronic Chronic Disease Active Univers [...] Disease Active Overview : Univers arthritis arthritis 08-20 Formattin i ty of 00:00: g of this note Medical might be Branch different from the original. 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 ICD10 Diagnosis Term Spray Gun Sizer Utility Allergies, Adverse Reactions, Alerts Allergy Allergy Status Severity Reaction(s) Onset Inactive Treating Comm ents Source Name Type Date Date Clinician Rustyoca Propensi Active GI Methodi ty to Intolerance -20 st adverse 00:00: Hospita reaction 00 l s to drug CODEINE DRUG Active High N/V 2019- Univers INGREDI 16 ity of 00:00: [place] 00 Medical Branch THIOPENT DRUG Active High Unknown-Cmnt 2019- Un ean AL INGREDI 16 ity of SODIUM 00:00: Medical Branch Thiopent Propensi Active Unknown - 2019-04 Nausea Uni vers al ty to See comments 04-17 and ity of Sodium adverse 00:00: Vomiting [place] reaction 00 Medical s Branch CODEINE Allergy Active High 2019-[address] [facility] Codeine Propensi Active GI 2019- Methodi ty to Intolerance 1-16 st adverse 00:00: Hospita reaction 00 l s to drug Thiopent Propensi Active GI 2019- Nausea Method i al ty to Intolerance -[address] Sodium adverse 00:00: Vomiting Hospita reaction 00 l s to drug Povidone Propensi Active Hives 2019- Method i -Iodine ty to -16 st adverse 00:00: Hospita reaction 00 l s to drug Codeine Drug Active 2019-[address] Allergy 1-16 reaction( [facility] 00:00: s): GI Medical 00 Intoleran Center ce Povidone Drug Active Hives 2019-[address] -Iodine Allergy 1-16 [facility] 00:[facility]: Medical 00 Center POVIDONE Allergy Active High Hives 2019-[address] -IODINE 1-16 [facility] 00:00: Medical 00 [place] IODINE-I DRUG Active Unknown-Cmnt 2018-04 Un ean SOPROPYL 0-09 ity of ALCOHOL 00:00: [place] 00 Medical Branch Iodine-I Drug Active 2018-[address] sopropyl Allergy 0-09 [facility] Alcohol 00:00: Medical 00 Center IODINE-I Allergy Active 2018-[address] SOPROPYL 0-09 [facility] ALCOHOL 00:[facility]: Medical 00 Center AVOCADO Allergy Active [facility] 00:[facility]: Medical 00 Center Avocado Propensi Active Other - See Pt Un ean ty to comments 11-04 reports ity of adverse 00:00: upset [place] reaction 00 stomach Medical s after Branch consumpti on but no n/v. Dexter [place] ext. [id number] AVOCADO DRUG Active Other-Cmnt Unive rs INGREDI 8 ity of 00:00: [place] 00 [facility] Branch Avocado Drug Active Other [facility] Allergy 805 reaction( [facility] 00:00: s): Other Medical 00 - See Center commentsP t reports upset stomach after consumpti on but no n/v. Dexter Sapp RD ext. [id number] Iodine Propensi Active Hives 2007- topical Univers ty to 08-06 ity of adverse 00:00: [place] reaction 00 Medical s Branch IODINE DRUG Active Hives Univers INGREDI 08-06 ity of 00:00: [place] 00 Medical Branch IODINE Allergy Active Hives [facility]: Medical [facility] Center Iodine Drug Active Hives 2007- topical [facility] All[facility] - [facility] 00:[facility]: Medical 00 Center Family History Family Member Diagnosis Comments Start Date Stop Date Source Natural father No Known Problems Met [facility] [place] [facility] Natural mother No Known Problems Met [facility] [place] [facility] Social History Social Habit Start Date Stop Date Quantity Comments Source Gender identity Universit y [facility] Sexual orientation Univer sity [facility] History of tobacco Cigarette Smoker University of use [facility] History SDOH Jainism Alcohol Std Drinks Hospit al History SDOH Jainism Alcohol Binge Hospital Exposure to 2022-08-19 2022-08-29 Not sure [facility] SARS-CoV-2 (event) 00:00:00 09:58:00 [facility] History of Social 2022-06-09 2022-06-[address] function 00:00:00 00:00:00 Hospital Tobacco use and 2022-02-14 2022-02-14 Smokeless Universit y of exposure 00:00:00 00:00:00 tobacco non-user [facility] Alcohol intake 2020-09-21 2020-09-21 Ex-drinker Jainism 00:00:00 00:00:00 (finding) Hospital Cigarette 2020-07-14 2020-07-14 Jainism pack-years 00:00:00 00:00:00 Hospital Alcohol Comment 2020-07-14 2020-07-14 liquor 5-6 Jainism 00:00:00 00:00:00 drinks on Hospital weekends Cigarettes smoked 2020-07-14 2020-07-[address] current (pack per 00:00:00 00:00:00 Hospita l day) - Reported History SDOH 2020-06-23 2020-06-23 1 Jainism Alcohol Frequency 00:00:00 00:00:00 Hospita l Sex Assigned At [address] [facility] 00:00:00 00:00:00 Medical Center Smoking Status Start Date Stop Date Source Ex-smoker 2022-02-14 00:00:00 2022-02-14 00:00:00 Universi ty of [facility] Smokes tobacco daily 2020-03-03 00:00:00 [facility] Medications Ordered Filled Start Stop Current Ordering Indication Dosage Frequency Signature Comments Components Source Medication Medication Date Date Medication? Clinician (SIG) Name Name gadobenate 2022- No [id number] .2mL/kg 20.14 mL Univers dimeglumine 10-27- (0.2 mL/kg i ty of (MULTIHANCE 17:00: 16:53 ?100.7 Sharif as -20 mL) 00 :00 kg), Medical injection Intravenou Bran ch 20.14 mL s, ONCE, 1 dose, On Sun10/27/22 at 1200, Routine fludeoxyglu 2023-0 3- No [id number] 10.7mCi 10.7 Univers cose F-18 10-27 millicurie ity of (FDG) 15:17: 15:22 , [place] injection 00 :00 Intravenou Medi nicolas 10.7 s, ONCE, 1 Branch millicurie dose, On Sun10/27/22 at 1045, Routine LORazepam 2023-0 3- No [id number] 2mg 2 mg, U nivers (ATIVAN) 10-27 Oral, ity of tablet 2 mg 13:45: 13:39 [place] dose, On Medical [facility] 10/27/22 at 0845, Routine tofacitinib 2023-0 Yes 11mg Take 1 Univ ers 11 mg Tb24 5-30 tablet by ity of 10:45: mouth. [address] tofacitinib 2023-0 Yes 11mg Take 1 Univ ers 11 mg Tb24 5-30 tablet by ity of 10:45: mouth. [address] tofacitinib 2023-0 Yes 11mg Take 1 Univ ers 11 mg Tb24 5-30 tablet by ity of 10:45: mouth. [address] tofacitinib 2023-0 Yes 11mg Take 1 Univ ers 11 mg Tb24 5-30 tablet by ity of 10:45: mouth. [address] tofacitinib 2023-0 Yes 11mg Take 1 Univ ers 11 mg Tb24 5-30 tablet by ity of 10:45: mouth. [address] tofacitinib 2023-0 Yes 11mg Take 1 Univ ers 11 mg Tb24 5-30 tablet by ity of 10:45: mouth. [address] tofacitinib 2023-0 Yes 11mg Take 1 Univ ers 11 mg Tb24 5-30 tablet by ity of 10:45: mouth. [address] tofacitinib 2023-0 Yes 11mg Take 1 Univ ers 11 mg Tb24 5-30 tablet by ity of 10:45: mouth. [address] tofacitinib 2023-0 Yes 11mg Take 1 Univ ers 11 mg Tb24 5-30 tablet by ity of 10:45: mouth. [address] tofacitinib 2023-0 Yes 11mg Take 1 Univ ers 11 mg Tb24 5-30 tablet by ity of 10:45: mouth. [address] tofacitinib 2023-0 Yes 11mg Take 1 Univ ers 11 mg Tb24 5-30 tablet by ity of 10:45: mouth. [address] tofacitinib 2023-0 Yes 11mg Take 1 Univ ers 11 mg Tb24 5-30 tablet by ity of 10:45: mouth. [address] tofacitinib 2023-0 Yes 11mg Take 1 Univ ers 11 mg Tb24 5-30 tablet by ity of 10:45: mouth. [address] tofacitinib 2023-0 Yes 11mg Take 1 Univ ers 11 mg Tb24 5-30 tablet by ity of 10:45: mouth. [address] tofacitinib 2023-0 Yes 11mg Take 1 Univ ers 11 mg Tb24 5-30 tablet by ity of 10:45: mouth. [address] tofacitinib 2023-0 Yes 11mg Take 1 Univ ers 11 mg Tb24 5-30 tablet by ity of 10:45: mouth. [address] silver 2023-0 Yes [id number] Apply to Uni vers sulfADIAZIN 5-02 area(s) 2 ity of E 1 % cream 00:00: (two) [place] 00 times Medical daily. Branch silver 2023-0 Yes [id number] Apply to Uni vers sulfADIAZIN 5-02 area(s) 2 ity of E 1 % cream 00:00: (two) [place] 00 times Medical daily. Branch silver 2023-0 Yes [id number] Apply to Uni vers sulfADIAZIN 5-02 area(s) 2 ity of E 1 % cream 00:00: (two) [place] 00 times Medical daily. Branch silver 2023-0 Yes [id number] Apply to Uni vers sulfADIAZIN 5-02 area(s) 2 ity of E 1 % cream 00:00: (two) [place] 00 times Medical daily. Branch silver 2023-0 Yes [id number] Apply to Uni vers sulfADIAZIN 5-02 area(s) 2 ity of E 1 % cream 00:00: (two) [place] 00 times Medical daily. Branch silver 2023-0 Yes [id number] Apply to Uni vers sulfADIAZIN 5-02 area(s) 2 ity of E 1 % cream 00:00: (two) [place] 00 times Medical daily. Branch silver 2023-0 Yes [id number] Apply to Uni vers sulfADIAZIN 5-02 area(s) 2 ity of E 1 % cream 00:00: (two) [place] 00 times Medical daily. Branch silver 2023-0 Yes [id number] Apply to Uni vers sulfADIAZIN 5-02 area(s) 2 ity of E 1 % cream 00:00: (two) [place] 00 times Medical daily. Branch silver 2023-0 Yes [id number] Apply to Uni vers sulfADIAZIN 5-02 area(s) 2 ity of E 1 % cream 00:00: (two) [place] 00 times Medical daily. Branch silver 2023-0 Yes [id number] Apply to Uni vers sulfADIAZIN 5-02 area(s) 2 ity of E 1 % cream 00:00: (two) [place] 00 times Medical daily. Branch silver 2023-0 Yes [id number] Apply to Uni vers sulfADIAZIN 5-02 area(s) 2 ity of E 1 % cream 00:00: (two) [place] 00 times Medical daily. Branch silver 2023-0 Yes [id number] Apply to Uni vers sulfADIAZIN 5-02 area(s) 2 ity of E 1 % cream 00:00: (two) [place] 00 times Medical daily. Branch silver 2023-0 Yes [id number] Apply to Uni vers sulfADIAZIN 5-02 area(s) 2 ity of E 1 % cream 00:00: (two) [place] 00 times Medical daily. Branch silver 2023-0 Yes [id number] Apply to Uni vers sulfADIAZIN 5-02 area(s) 2 ity of E 1 % cream 00:00: (two) [place] 00 times Medical daily. Branch silver 2023-0 Yes [id number] Apply to Uni vers sulfADIAZIN 5-02 area(s) 2 ity of E 1 % cream 00:00: (two) [place] 00 times Medical daily. Branch silver 2023-0 Yes [id number] Apply to Uni vers sulfADIAZIN 5-02 area(s) 2 ity of E 1 % cream 00:00: (two) [place] 00 times Medical daily. Branch silver 2022- Yes [id number] Apply to Uni vers sulfADIAZIN 5-02 area(s) 2 ity of E 1 % cream 00:00: (two) [place] 00 times Medical daily. Branch silver 0 Yes [id number] Apply to Uni vers sulfADIAZIN 5-02 area(s) 2 ity of E 1 % cream 00:00: (two) [place] 00 times Medical daily. Branch FENTanyl 25 2022-2022- No 4647 1{patch Apply 1 Univers mcg/hr 4-11 04-19 } Patch to ity of patch 00:00: 04:59 skin every [place] 00 :00 72 Medical ([facility]) hours for 7 days. Indication s: acute pain, vulvar pain 2/2 radiation FENTanyl 25 2022- No 4647 1{patch Apply 1 Univers mcg/hr 4-11 04-19 } Patch to ity of patch 00:00: 04:59 skin every [place] 00 :00 72 Medical ([facility]) hours for 7 days. Indication s: acute pain, vulvar pain 2/2 radiation FENTanyl 25 2022- No 4647 1{patch Apply 1 Univers mcg/hr 4-11 04-19 } Patch to ity of patch 00:00: 04:59 skin every [place] 00 :00 72 Medical ([facility]) hours for 7 days. Indication s: acute pain, vulvar pain 2/2 radiation FENTanyl 25 2022- No 4647 1{patch Apply 1 Univers mcg/hr 4-11 04-19 } Patch to ity of patch 00:00: 04:59 skin every [place] 00 :00 72 Medical ([facility]) hours for 7 days. Indication s: acute pain, vulvar pain 2/2 radiation FENTanyl 25 2022-2022- No 4647 1{patch Apply 1 Univers mcg/hr 4-11 04-19 } Patch to ity of patch 00:00: 04:59 skin every [place] 00 :00 72 Medical ([facility]) hours for 7 days. Indication s: acute pain, vulvar pain 2/2 radiation FENTanyl 25 2022-2022- No 4647 1{patch Apply 1 Univers mcg/hr 4-11 04-19 } Patch to ity of patch 00:00: 04:59 skin every [place] 00 :00 72 Medical ([facility]) hours for 7 days. Indication s: acute pain, vulvar pain 2/2 radiation FENTanyl 25 2022-0 2022- No 4647 1{patch Apply 1 Univers mcg/hr 4-11 04-19 } Patch to ity of patch 00:00: 04:59 skin every [place] 00 :00 72 Medical ([facility]) hours for 7 days. Indication s: acute pain, vulvar pain 2/2 radiation FENTanyl 25 2022-2022- No 4647 1{patch Apply 1 Univers mcg/hr 4-11 -19 } Patch to ity of patch 00:00: 04:59 skin every [place] 00 :00 72 Medical ([facility]) hours for 7 days. Indication s: acute pain, vulvar pain 2/2 radiation FENTanyl 25 2022-2022- No 4647 1{patch Apply 1 Univers mcg/hr 4-11 -19 } Patch to ity of patch 00:00: 04:59 skin every [place] 00 :00 72 Medical ([facility]) hours for 7 days. Indication s: acute pain, vulvar pain 2/2 radiation FENTanyl 25 2022-2022- No 4647 1{patch Apply 1 Univers mcg/hr 4-11 -19 } Patch to ity of patch 00:00: 04:59 skin every [place] 00 :00 72 Medical ([facility]) hours for 7 days. Indication s: acute pain, vulvar pain 2/2 radiation FENTanyl 25 2022-2022- No 4647 1{patch Apply 1 Univers mcg/hr 4-11 04-19 } Patch to ity of patch 00:00: 04:59 skin every [place] 00 :00 72 Medical ([facility]) hours for 7 days. Indication s: acute pain, vulvar pain 2/2 radiation FENTanyl 25 2022-0 2022- No 4647 1{patch Apply 1 Univers mcg/hr 4-11 04-19 } Patch to ity of patch 00:00: 04:59 skin every [place] 00 :00 72 Medical ([facility]) hours for 7 days. Indication s: acute pain, vulvar pain 2/2 radiation FENTanyl 25 2022-0 2022- No 4647 1{patch Apply 1 Univers mcg/hr 4-11 04-19 } Patch to ity of patch 00:00: 04:59 skin every [place] 00 :00 72 Medical ([facility]) hours for 7 days. Indication s: acute pain, vulvar pain 2/2 radiation FENTanyl 25 2022-0 2022- No 4647 1{patch Apply 1 Univers mcg/hr 4-11 04-19 } Patch to ity of patch 00:00: 04:59 skin every [place] 00 :00 72 Medical ([facility]) hours for 7 days. Indication s: acute pain, vulvar pain 2/2 radiation FENTanyl 25 2022-2022- No 4647 1{patch Apply 1 Univers mcg/hr 4-11 04-19 } Patch to ity of patch 00:00: 04:59 skin every [place] 00 :00 72 Medical ([facility]) hours for 7 days. Indication s: acute pain, vulvar pain 2/2 radiation FENTanyl 25 2022-2022- No 4647 1{patch Apply 1 Univers mcg/hr 4-11 04-19 } Patch to ity of patch 00:00: 04:59 skin every [place] 00 :00 72 Medical ([facility]) hours for 7 days. Indication s: acute pain, vulvar pain 2/2 radiation FENTanyl 25 2022-2022- No 4647 1{patch Apply 1 Univers mcg/hr 4-11 04-19 } Patch to ity of patch 00:00: 04:59 skin every [place] 00 :00 72 Medical ([facility]) hours for 7 days. Indication s: acute pain, vulvar pain 2/2 radiation FENTanyl 25 2022-2022- No 4647 1{patch Apply 1 Univers mcg/hr 3-30 04-04 } Patch to ity of patch 00:00: 04:59 skin every [place] 00 :00 72 Medical ([facility]) hours for 2 doses. Indication s: acute pain, vulva pain 2/2 radiation treatment FENTanyl 25 2022-0 2022- No 4647 1{patch Apply 1 Univers mcg/hr 3-30 04-04 } Patch to ity of patch 00:00: 04:59 skin every [place] 00 :00 72 Medical ([facility]) hours for 2 doses. Indication s: acute pain, vulva pain 2/2 radiation treatment FENTanyl 25 2023-0 2023- No 4647 1{patch Apply 1 Univers mcg/hr 3-30 04-04 } Patch to ity of patch 00:00: 04:59 skin every [place] 00 :00 72 Medical ([facility] [place] [facility]) hours for 2 doses. Indication s: acute pain, vulva pain 2/2 radiation treatment FENTanyl 25 2023-0 2023- No 4647 1{patch Apply 1 Univers mcg/hr 3-30 04-04 } Patch to ity of patch 00:00: 04:59 skin every [place] 00 :00 72 Medical ([facility] [place] [facility]) hours for 2 doses. Indication s: acute pain, vulva pain 2/2 radiation treatment gabapentin 2023-0 Yes 300mg Take 1 Univ ers 300 mg 3-23 capsule by ity of capsule 00:00: mouth [place] 00 SEE-INSTRU Medical CTIONS. Branch docusate 2023-0 Yes 100mg Take 1 Univer s 100 mg 3-23 capsule by ity of capsule 00:00: mouth in [place] 00 the Medical morning. Branch silver 2023-0 Yes Apply to Univers sulfADIAZIN 3-23 area(s) 2 ity of E 1 % cream 00:00: (two) [place] 00 times Medical daily. Branch gabapentin 2023-0 Yes 300mg Take 1 Univ ers 300 mg 3-23 capsule by ity of capsule 00:00: mouth [place] 00 SEE-INSTR Medical CTIONS. Branch docusate 2023-0 Yes 100mg Take 1 Univer s 100 mg 3-23 capsule by ity of capsule 00:00: mouth in [place] 00 the Medical morning. Branch silver 2023-0 Yes Apply to Univers sulfADIAZIN 3-23 area(s) 2 ity of E 1 % cream 00:00: (two) [place] 00 times Medical daily. Branch gabapentin 2023-0 Yes 300mg Take 1 Univ ers 300 mg 3-23 capsule by ity of capsule 00:00: mouth [place] 00 SEE-[facility] Medical CTIONS. Branch docusate 2023-0 Yes 100mg Take 1 Univer s 100 mg 3-23 capsule by ity of capsule 00:00: mouth in [place] 00 the Medical morning. Branch silver 2023-0 Yes Apply to Univers sulfADIAZIN 3-23 area(s) 2 ity of E 1 % cream 00:00: (two) [place] 00 times Medical daily. Branch gabapentin 2023-0 Yes 300mg Take 1 Univ ers 300 mg 3-23 capsule by ity of capsule 00:00: mouth [place] 00 SEE-INSTRU Medical CTIONS. Branch docusate 2023-0 Yes 100mg Take 1 Univer s 100 mg 3-23 capsule by ity of capsule 00:00: mouth in [place] 00 the Medical morning. Branch silver 2023-0 Yes Apply to Univers sulfADIAZIN 3-23 area(s) 2 ity of E 1 % cream 00:00: (two) [place] 00 times Medical daily. Branch gabapentin 2023-0 Yes 300mg Take 1 Univ ers 300 mg 3-23 capsule by ity of capsule 00:00: mouth [place] SEE-INSTRU Medical CTIONS. Branch docusate 2023-0 Yes 100mg Take 1 Univer s 100 mg 3-23 capsule by ity of capsule 00:00: mouth in [place] 00 the Medical morning. Branch silver 2023-0 Yes Apply to Univers sulfADIAZIN 3-23 area(s) 2 ity of E 1 % cream 00:00: (two) [place] 00 times Medical daily. Branch gabapentin 2023-0 Yes 300mg Take 1 Univ ers 300 mg 3-23 capsule by ity of capsule 00:00: mouth [place] [facility] Branch docusate 2023-0 Yes 100mg Take 1 Univer s 100 mg 3-23 capsule by ity of capsule 00:00: mouth in [place] the Medical morning. Branch silver 2023-0 Yes Apply to Univers sulfADIAZIN 3-23 area(s) 2 ity of E 1 % cream 00:00: (two) [place] 00 times Medical daily. Branch gabapentin 2023-0 Yes 300mg Take 1 [facility] 300 mg 3-23 capsule by [facility] capsule 00:00: mouth [place] 00 SEE-INSTRU Medical CTIONS. Branch docusate 2023-0 Yes 100mg Take 1 [facility] 100 mg 3-23 capsule by [facility] of capsule 00:00: mouth in [place] 00 the Medical morning. Branch silver 2023-0 Yes Apply to [facility] sulfADIAZIN 3-23 area(s) 2 it[facility] of E 1 % cream 00:00: (two) [place] 00 times Medical daily. Branch gabapentin 2023-0 Yes 300mg Take 1 [facility] 300 mg 3-23 capsule by [facility] of capsule 00:00: mouth [place] 00 SEE-INSTRU Medical CTIONS. Branch docusate 2023-0 Yes 100mg Take 1 [facility] 100 mg 3-23 capsule by [facility] of capsule 00:00: mouth in [place] 00 the Medical morning. Branch silver 2023-0 Yes Apply to [facility] sulfADIAZIN 3-23 area(s) 2 ity of E 1 % cream 00:00: (two) [place] 00 times Medical daily. Branch gabapentin 2023-0 Yes 300mg Take 1 [facility] 300 mg 3-23 capsule by [facility] of capsule 00:00: mouth [place] 00 SEE-INSTRU Medical CTIONS. Branch docusate 2023-0 Yes 100mg Take 1 [facility] 100 mg 3-23 capsule by [facility] capsule 00:00: mouth in [place] 00 the Medical morning. Branch silver 2023-0 Yes Apply to [facility] sulfADIAZIN 3-23 area(s) 2 [facility] of E 1 % cream 00:00: (two) [place] 00 times Medical daily. Branch gabapentin 2023-0 Yes 300mg Take 1 [facility] 300 mg 3-23 capsule by [facility] of capsule 00:00: mouth [place] SEE-INSTRU Medical CTIONS. Branch docusate 2023-0 Yes 100mg Take 1 [facility] 100 mg 3-23 capsule by [facility] of capsule 00:00: mouth in [place] the Medical morning. Branch silver 2023-0 Yes Apply to [facility] sulfADIAZIN 3-23 area(s) 2 [facility] of E 1 % cream 00:00: (two) [place] 00 times Medical daily. Branch gabapentin 2023-0 Yes 300mg Take 1 [facility] 300 mg 3-23 capsule by [facility] of capsule 00:00: mouth [place] 00 SEE-INSTRU Medical CTIONS. Branch docusate 2023-0 Yes 100mg Take 1 [facility] 100 mg 3-23 capsule by [facility] of capsule 00:00: mouth in [place] 00 the Medical morning. Branch silver 2023-0 Yes Apply to [facility] sulfADIAZIN 3-23 area(s) 2 [facility] of E 1 % cream 00:00: (two) [place] 00 times Medical daily. Branch gabapentin 2023-0 Yes 300mg Take 1 [facility] 300 mg 3-23 capsule by [facility] of capsule 00:00: mouth [place] 00 SEE-INSTRU Medical CTIONS. Branch docusate 2023-0 Yes 100mg Take 1 [facility] 100 mg 3-23 capsule by [facility] of capsule 00:00: mouth in [place] 00 the Medical morning. Branch silver 2023-0 Yes Apply to [facility] sulfADIAZIN 3-23 area(s) 2 [facility] of E 1 % cream 00:00: (two) [place] 00 times Medical daily. Branch gabapentin 2023-0 Yes 300mg Take 1 [facility] 300 mg 3-23 capsule by [facility] of capsule 00:00: mouth [place] 00 SEE-INSTRU Medical CTIONS. Branch docusate 2023-0 Yes 100mg Take 1 [facility] 100 mg 3-23 capsule by [facility] of capsule 00:00: mouth in [place] 00 the Medical morning. Branch silver 2023-0 Yes Apply to [facility] sulfADIAZIN 3-23 area(s) 2 it[facility] of E 1 % cream 00:00: (two) [place] 00 times Medical daily. Branch gabapentin 2023-0 Yes 300mg Take 1 [facility] 300 mg 3-23 capsule by [facility] of capsule 00:00: mouth [place] 00 SEE-[facility] Medical CTIONS. Branch docusate 2023-0 Yes 100mg Take 1 [facility] 100 mg 3-23 capsule by [facility] of capsule 00:00: mouth in [place] 00 the Medical morning. Branch silver 2023-0 Yes Apply to [facility] sulfADIAZIN 3-23 area(s) 2 ity of E 1 % cream 00:00: (two) [place] 00 times Medical daily. Branch gabapentin 2023-0 Yes 300mg Take 1 [facility] 300 mg 3-23 capsule by [facility] of capsule 00:00: mouth [place] 00 [facility] Branch docusate 2023-0 Yes 100mg Take 1 [facility] 100 mg 3-23 capsule by [facility] of capsule 00:00: mouth in [place] 00 the Medical morning. Branch silver 2023-0 Yes Apply to [facility] sulfADIAZIN 3-23 area(s) 2 ity of E 1 % cream 00:00: (two) [place] 00 times Medical daily. Branch gabapentin 2023-0 Yes 300mg Take 1 [facility] 300 mg 3-23 capsule by [facility] of capsule 00:00: mouth [place] 00 SEE-INSTRU Medical CTIONS. Branch docusate 2023-0 Yes 100mg Take 1 [facility] 100 mg 3-23 capsule by [facility] of capsule 00:00: mouth in [place] 00 the Medical morning. Branch silver 2023-0 Yes Apply to [facility] sulfADIAZIN 3-23 area(s) 2 ity of E 1 % cream 00:00: (two) [place] 00 times Medical daily. Branch gabapentin 2023-0 Yes 300mg Take 1 [facility] 300 mg 3-23 capsule by [facility] of capsule 00:00: mouth [place] 00 SEE-INSTRU Medical CTIONS. Branch docusate 2023-0 Yes 100mg Take 1 [facility] 100 mg 3-23 capsule by [facility] of capsule 00:00: mouth in [place] 00 the Medical morning. Branch silver 2023-0 Yes Apply to [facility] sulfADIAZIN 3-23 area(s) 2 ity of E 1 % cream 00:00: (two) [place] 00 times Medical daily. Branch gabapentin 2023-0 Yes 300mg Take 1 [facility] 300 mg 3-23 capsule by [facility] of capsule 00:00: mouth [place] SEE-INSTRU Medical CTIONS. Branch docusate 2023-0 Yes 100mg Take 1 [facility] 100 mg 3-23 capsule by [facility] of capsule 00:00: mouth in [place] 00 the Medical morning. Branch silver 2023-0 Yes Apply to [facility] sulfADIAZIN 3-23 area(s) 2 ity of E 1 % cream 00:00: (two) [place] 00 times Medical daily. Branch gabapentin 2023-0 Yes 300mg Take 1 [facility] 300 mg 3-23 capsule by [facility] of capsule 00:00: mouth [place] SEE-INSTRU Medical CTIONS. Branch docusate 2023-0 Yes 100mg Take 1 [facility] 100 mg 3-23 capsule by [facility] of capsule 00:00: mouth in [place] 00 the Medical morning. Branch silver 2023-0 Yes Apply to [facility] sulfADIAZIN 3-23 area(s) 2 ity of E 1 % cream 00:00: (two) [place] 00 times Medical daily. Branch gabapentin 2023-0 Yes 300mg Take 1 [facility] 300 mg 3-23 capsule by [facility] of capsule 00:00: mouth [place] SEE-INSTRU Medical CTIONS. Branch docusate 2023-0 Yes 100mg Take 1 [facility] 100 mg 3-23 capsule by [facility] of capsule 00:00: mouth in [place] 00 the Medical morning. Branch silver 2023-0 Yes Apply to [facility] sulfADIAZIN 3-23 area(s) 2 ity of E 1 % cream 00:00: (two) [place] 00 times Medical daily. Branch gabapentin 2023-0 Yes 300mg Take 1 [facility] 300 mg 3-23 capsule by [facility]y of capsule 00:00: mouth [place] 00 SEE-INSTRU Medical CTIONS. Branch docusate 2023-0 Yes 100mg Take 1 [facility] 100 mg 3-23 capsule by [facility] of capsule 00:00: mouth in [place] 00 the Medical morning. Branch silver 2023-0 Yes Apply to [facility] sulfADIAZIN 3-23 area(s) 2 ity of E 1 % cream 00:00: (two) [place] 00 times Medical daily. Branch gabapentin 2023-0 Yes 300mg Take 1 [facility] 300 mg 3-23 capsule by [facility]y of capsule 00:00: mouth [place] SEE-INSTR Medical CTIONS. Branch docusate 2023-0 Yes 100mg Take 1 [facility] 100 mg 3-23 capsule by [facility] of capsule 00:00: mouth in [place] 00 the Medical morning. Branch silver 2023-0 Yes Apply to [facility] sulfADIAZIN 3-23 area(s) 2 ity of E 1 % cream 00:00: (two) [place] 00 times Medical daily. Branch gabapentin 2023-0 Yes 300mg Take 1 [facility] 300 mg 3-23 capsule by [facility] of capsule 00:00: mouth [place] 00 SEE-[facility] Medical CTIONS. Branch docusate 2023-0 Yes 100mg Take 1 [facility] 100 mg 3-23 capsule by ity of capsule 00:00: mouth in [place] 00 the Medical morning. Branch silver 2023-0 Yes Apply to [facility] sulfADIAZIN 3-23 area(s) 2 ity of E 1 % cream 00:00: (two) [place] 00 times Medical daily. Branch gabapentin 2023-0 Yes 300mg Take 1 [facility] 300 mg 3-23 capsule by [facility]y of capsule 00:00: mouth [place] 00 SEE-[facility] Medical CTIONS. Branch docusate 2023-0 Yes 100mg Take 1 [facility] 100 mg 3-23 capsule by [facility] of capsule 00:00: mouth in [place] 00 the Medical morning. Branch silver 2023-0 Yes Apply to [facility] sulfADIAZIN 3-23 area(s) 2 ity of E 1 % cream 00:00: (two) [place] 00 times Medical daily. Branch gabapentin 2023-0 Yes 300mg Take 1 [facility] 300 mg 3-23 capsule by [facility]y of capsule 00:00: mouth [place] 00 SEE-INSTRU Medical CTIONS. Branch docusate 2023-0 Yes 100mg Take 1 [facility] 100 mg 3-23 capsule by [facility] of capsule 00:00: mouth in [place] 00 the Medical morning. Branch silver 2023-0 Yes Apply to [facility] sulfADIAZIN 3-23 area(s) 2 ity of E 1 % cream 00:00: (two) [place] 00 times Medical daily. Branch gabapentin 2023-0 Yes 300mg Take 1 [facility] 300 mg 3-23 capsule by [facility]y of capsule 00:00: mouth [place] SEE-INSTR Medical CTIONS. Branch docusate 2023-0 Yes 100mg Take 1 [facility] 100 mg 3-23 capsule by [facility]y of capsule 00:00: mouth in [place] 00 the Medical morning. Branch silver 2023-0 Yes Apply to [facility] sulfADIAZIN 3-23 area(s) 2 ity of E 1 % cream 00:00: (two) [place] 00 times Medical daily. Branch gabapentin 2023-0 Yes 300mg Take 1 [facility] 300 mg 3-23 capsule by [facility] of capsule 00:00: mouth [place] SEE-INSTRU Medical CTIONS. Branch docusate 2023-0 Yes 100mg Take 1 [facility] 100 mg 3-23 capsule by [facility] of capsule 00:00: mouth in [place] 00 the Medical morning. Branch silver 2023-0 Yes Apply to [facility] sulfADIAZIN 3-23 area(s) 2 ity of E 1 % cream 00:00: (two) [place] 00 times Medical daily. Branch gabapentin 2023-0 Yes 300mg Take 1 [facility] 300 mg 3-23 capsule by [facility] of capsule 00:00: mouth [place] SEE-INSTRU Medical CTIONS. Branch docusate 2023-0 Yes 100mg Take 1 [facility] 100 mg 3-23 capsule by [facility] of capsule 00:00: mouth in [place] 00 the Medical morning. Branch silver 2023-0 Yes Apply to [facility] sulfADIAZIN 3-23 area(s) 2 ity of E 1 % cream 00:00: (two) [place] 00 times Medical daily. Branch gabapentin 2023-0 Yes 300mg Take 1 [facility] 300 mg 3-23 capsule by ity of capsule 00:00: mouth [place] 00 SEE-INSTRU Medical CTIONS. Branch docusate 2023-0 Yes 100mg Take 1 [facility] 100 mg 3-23 capsule by [facility]y of capsule 00:00: mouth in [place] 00 the Medical morning. Branch silver 2023-0 Yes Apply to [facility] sulfADIAZIN 3-23 area(s) 2 ity of E 1 % cream 00:00: (two) [place] 00 times Medical daily. Branch gabapentin 2023-0 Yes 300mg Take 1 [facility] 300 mg 3-23 capsule by ity of capsule 00:00: mouth [place] 00 SEE-INSTRU Medical CTIONS. Branch docusate 2023-0 Yes 100mg Take 1 [facility] 100 mg 3-23 capsule by [facility]y of capsule 00:00: mouth in [place] 00 the Medical morning. Branch silver 2023-0 Yes Apply to [facility] sulfADIAZIN 3-23 area(s) 2 ity of E 1 % cream 00:00: (two) [place] 00 times Medical daily. Branch gabapentin 2023-0 Yes 300mg Take 1 [facility] 300 mg 3-23 capsule by [facility] of capsule 00:00: mouth [place] SEE-INSTRU Medical CTIONS. Branch docusate 2023-0 Yes 100mg Take 1 [facility] 100 mg 3-23 capsule by [facility] of capsule 00:00: mouth in [place] the Medical morning. Branch silver 2023-0 Yes Apply to [facility] sulfADIAZIN 3-23 area(s) 2 ity of E 1 % cream 00:00: (two) [place] 00 times Medical daily. Branch gabapentin 2023-0 Yes 300mg Take 1 [facility] 300 mg 3-23 capsule by [facility]y of capsule 00:00: mouth [place] 00 SEE-INSTRU Medical CTIONS. Branch docusate 2023-0 Yes 100mg Take 1 [facility] 100 mg 3-23 capsule by [facility]y of capsule 00:00: mouth in [place] 00 the Medical morning. Branch silver 2023-0 Yes Apply to [facility] sulfADIAZIN 3-23 area(s) 2 ity of E 1 % cream 00:00: (two) [place] 00 times Medical daily. Branch gabapentin 2023-0 Yes 300mg Take 1 [facility] 300 mg 3-23 capsule by ity of capsule 00:00: mouth [place] 00 SEE-INSTRU Medical CTIONS. Branch docusate 2023-0 Yes 100mg Take 1 [facility] 100 mg 3-23 capsule by [facility]y of capsule 00:00: mouth in [place] 00 the Medical morning. Branch silver 2023-0 Yes Apply to [facility] sulfADIAZIN 3-23 area(s) 2 ity of E 1 % cream 00:00: (two) [place] 00 times Medical daily. Branch gabapentin 2023-0 Yes 300mg Take 1 [facility] 300 mg 3-23 capsule by ity of capsule 00:00: mouth [place] 00 SEE-INSTRU Medical CTIONS. Branch docusate 2023-0 Yes 100mg Take 1 [facility] 100 mg 3-23 capsule by [facility]y of capsule 00:00: mouth in [place] 00 the Medical morning. Branch silver 2023-0 Yes Apply to [facility] sulfADIAZIN 3-23 area(s) 2 ity of E 1 % cream 00:00: (two) [place] 00 times Medical daily. Branch gabapentin 2023-0 Yes 300mg Take 1 [facility] 300 mg 3-23 capsule by [facility]y of capsule 00:00: mouth [place] 00 SEE-[facility] Medical CTIONS. Branch docusate 2023-0 Yes 100mg Take 1 [facility] 100 mg 3-23 capsule by ity of capsule 00:00: mouth in [place] 00 the Medical morning. Branch silver 2023-0 Yes Apply to [facility] sulfADIAZIN 3-23 area(s) 2 ity of E 1 % cream 00:00: (two) [place] 00 times Medical daily. Branch gabapentin 2023-0 Yes 300mg Take 1 [facility] 300 mg 3-23 capsule by [facility] of capsule 00:00: mouth [place] 00 [facility] Medical [facility]. Branch docusate 2023-0 Yes 100mg Take 1 [facility] 100 mg 3-23 capsule by [facility] of capsule 00:00: mouth in [place] 00 the Medical morning. Branch silver 2023-0 Yes Apply to [facility] sulfADIAZIN 3-23 area(s) 2 ity of E 1 % cream 00:00: (two) [place] 00 times Medical daily. Branch gabapentin 2023-0 Yes 300mg Take 1 [facility] 300 mg 3-23 capsule by [facility]y of capsule 00:00: mouth [place] 00 SEE-INSTRU Medical CTIONS. Branch docusate 2023-0 Yes 100mg Take 1 [facility] 100 mg 3-23 capsule by [facility]y of capsule 00:00: mouth in [place] 00 the Medical morning. Branch silver 2023-0 Yes Apply to [facility] sulfADIAZIN 3-23 area(s) 2 ity of E 1 % cream 00:00: (two) [place] 00 times Medical daily. Branch gabapentin 2023-0 Yes 300mg Take 1 [facility] 300 mg 3-23 capsule by ity of capsule 00:00: mouth [place] 00 SEE-INSTRU Medical CTIONS. Branch docusate 2023-0 Yes 100mg Take 1 [facility] 100 mg 3-23 capsule by [facility]y of capsule 00:00: mouth in [place] 00 the Medical morning. Branch silver 2023-0 Yes Apply to [facility] sulfADIAZIN 3-23 area(s) 2 ity of E 1 % cream 00:00: (two) [place] 00 times Medical daily. Branch gabapentin 2023-0 Yes 300mg Take 1 [facility] 300 mg 3-23 capsule by ity of capsule 00:00: mouth [place] SEE-INSTRU Medical CTIONS. Branch docusate 2023-0 Yes 100mg Take 1 [facility] 100 mg 3-23 capsule by [facility]y of capsule 00:00: mouth in [place] 00 the Medical morning. Branch silver 2023-0 Yes Apply to [facility] sulfADIAZIN 3-23 area(s) 2 ity of E 1 % cream 00:00: (two) [place] 00 times Medical daily. Branch gabapentin 2023-0 Yes 300mg Take 1 [facility] 300 mg 3-23 capsule by ity of capsule 00:00: mouth [place] SEE-INSTRU Medical CTIONS. Branch docusate 2023-0 Yes 100mg Take 1 [facility] 100 mg 3-23 capsule by [facility]y of capsule 00:00: mouth in [place] 00 the Medical morning. Branch silver 2023-0 Yes Apply to [facility] sulfADIAZIN 3-23 area(s) 2 ity of E 1 % cream 00:00: (two) [place] 00 times Medical daily. Branch gabapentin 2023-0 Yes 300mg Take 1 [facility] 300 mg 3-23 capsule by ity of capsule 00:00: mouth [place] SEE-INSTRU Medical CTIONS. Branch docusate 2023-0 Yes 100mg Take 1 [facility] 100 mg 3-23 capsule by ity of capsule 00:00: mouth in [place] 00 the Medical morning. Branch silver 2023-0 Yes Apply to [facility] sulfADIAZIN 3-23 area(s) 2 ity of E 1 % cream 00:00: (two) [place] 00 times Medical daily. Branch gabapentin 2023-0 Yes 300mg Take 1 [facility] 300 mg 3-23 capsule by [facility]y of capsule 00:00: mouth [place] 00 SEE-INSTR Medical CTIONS. Branch docusate 2023-0 Yes 100mg Take 1 [facility] 100 mg 3-23 capsule by [facility]y of capsule 00:00: mouth in [place] 00 the Medical morning. Branch gabapentin 2023-0 Yes 300mg Take 1 [facility] 300 mg 3-23 capsule by [facility]y of capsule 00:00: mouth [place] SEE-INSTR Medical CTIONS. Branch docusate 2023-0 Yes 100mg Take 1 [facility] 100 mg 3-23 capsule by [facility]y of capsule 00:00: mouth in [place] the Medical morning. Branch gabapentin 2023-0 Yes 300mg Take 1 [facility] 300 mg 3-23 capsule by [facility]y of capsule 00:00: mouth [place] SEE-INSTR Medical CTIONS. Branch docusate 2023-0 Yes 100mg Take 1 [facility] 100 mg 3-23 capsule by [facility]y of capsule 00:00: mouth in [place] the Medical morning. Branch gabapentin 2023-0 Yes 300mg Take 1 [facility] 300 mg 3-23 capsule by ity of capsule 00:00: mouth [place] SEE-[facility] Medical CTIONS. Branch docusate 2023-0 Yes 100mg Take 1 [facility] 100 mg 3-23 capsule by ity of capsule 00:00: mouth in [place] the Medical morning. Branch gabapentin 2023-0 Yes 300mg Take 1 [facility] 300 mg 3-23 capsule by [facility]y of capsule 00:00: mouth [place] SEE-[facility] Medical CTIONS. Branch docusate 2023-0 Yes 100mg Take 1 [facility] 100 mg 3-23 capsule by [facility]y of capsule 00:00: mouth in [place] the Medical morning. Branch gabapentin 2023-0 Yes 300mg Take 1 [facility] 300 mg 3-23 capsule by [facility]y of capsule 00:00: mouth [place] 00 SEE-INSTR Medical CTIONS. Branch docusate 2023-0 Yes 100mg Take 1 [facility] 100 mg 3-23 capsule by [facility]y of capsule 00:00: mouth in [place] 00 the Medical morning. Branch gabapentin 2023-0 Yes 300mg Take 1 [facility] 300 mg 3-23 capsule by [facility]y of capsule 00:00: mouth [place] SEE-[facility] Medical CTIONS. Branch docusate 2023-0 Yes 100mg Take 1 [facility] 100 mg 3-23 capsule by ity of capsule 00:00: mouth in [place] the Medical morning. Branch gabapentin 2023-0 Yes 300mg Take 1 [facility] 300 mg 3-23 capsule by ity of capsule 00:00: mouth [place] SEE-INSTR Medical CTIONS. Branch docusate 2023-0 Yes 100mg Take 1 [facility] 100 mg 3-23 capsule by ity of capsule 00:00: mouth in [place] the Medical morning. Branch gabapentin 2023-0 Yes 300mg Take 1 [facility] 300 mg 3-23 capsule by [facility]y of capsule 00:00: mouth [place] SEE-[facility] Medical CTIONS. Branch docusate 2023-0 Yes 100mg Take 1 [facility] 100 mg 3-23 capsule by [facility]y of capsule 00:00: mouth in [place] the Medical morning. Branch gabapentin 2023-0 Yes 300mg Take 1 [facility] 300 mg 3-23 capsule by [facility]y of capsule 00:00: mouth [place] SEE-[facility] Medical CTIONS. Branch docusate 2023-0 Yes 100mg Take 1 [facility] 100 mg 3-23 capsule by ity of capsule 00:00: mouth in [place] the Medical morning. Branch gabapentin 2023-0 Yes 300mg Take 1 [facility] 300 mg 3-23 capsule by [facility]y of capsule 00:00: mouth [place] SEE-[facility] Medical CTIONS. Branch docusate 2023-0 Yes 100mg Take 1 [facility] 100 mg 3-23 capsule by ity of capsule 00:00: mouth in [place] the Medical morning. Branch gabapentin 2023-0 Yes 300mg Take 1 [facility] 300 mg 3-23 capsule by ity of capsule 00:00: mouth [place] SEE-[facility] Medical CTIONS. Branch docusate 2023-0 Yes 100mg Take 1 [facility] 100 mg 3-23 capsule by ity of capsule 00:00: mouth in [place] the Medical morning. Branch gabapentin 2023-0 Yes 300mg Take 1 [facility] 300 mg 3-23 capsule by ity of capsule 00:00: mouth [place] SEE-[facility] Medical CTIONS. Branch docusate 2023-0 Yes 100mg Take 1 [facility] 100 mg 3-23 capsule by ity of capsule 00:00: mouth in [place] the Medical morning. Branch gabapentin 2023-0 Yes 300mg Take 1 [facility] 300 mg 3-23 capsule by [facility]y of capsule 00:00: mouth [place] SEE-[facility] Medical CTIONS. Branch docusate 2023-0 Yes 100mg Take 1 [facility] 100 mg 3-23 capsule by ity of capsule 00:00: mouth in [place] the Medical morning. Branch gabapentin 2023-0 Yes 300mg Take 1 [facility] 300 mg 3-23 capsule by [facility]y of capsule 00:00: mouth [place] SEE-[facility] Medical CTIONS. Branch docusate 2023-0 Yes 100mg Take 1 [facility] 100 mg 3-23 capsule by ity of capsule 00:00: mouth in [place] the Medical morning. Branch gabapentin 2023-0 Yes 300mg Take 1 [facility] 300 mg 3-23 capsule by [facility]y of capsule 00:00: mouth [place] SEE-[facility] Medical CTIONS. Branch docusate 2023-0 Yes 100mg Take 1 [facility] 100 mg 3-23 capsule by ity of capsule 00:00: mouth in [place] the Medical morning. Branch gabapentin 2023-0 Yes 300mg Take 1 [facility] 300 mg 3-23 capsule by ity of capsule 00:00: mouth [place] SEE-[facility] Medical CTIONS. Branch docusate 2023-0 Yes 100mg Take 1 [facility] 100 mg 3-23 capsule by ity of capsule 00:00: mouth in [place] the Medical morning. Branch gabapentin 2023-0 Yes 300mg Take 1 [facility] 300 mg 3-23 capsule by ity of capsule 00:00: mouth [place] SEE-[facility] Medical CTIONS. Branch docusate 2023-0 Yes 100mg Take 1 [facility] 100 mg 3-23 capsule by [facility]y of capsule 00:00: mouth in [place] the Medical morning. Branch gabapentin 2023-0 Yes 300mg Take 1 [facility] 300 mg 3-23 capsule by [facility]y of capsule 00:00: mouth [place] [facility]. Branch docusate 2023-0 Yes 100mg Take 1 [facility] 100 mg 3-23 capsule by ity of capsule 00:00: mouth in [place] 00 the Medical morning. Branch silver 2022-2022- No Apply to [facility] sulfADIAZIN 3-22 08- area(s) 2 it y of E 1 % cream 00:00: [place] (two[place] Medical daily. Branch silver 2022-0 2022- No Apply to [facility] sulfADIAZIN 3-08-01 area(s) 2 it y of E 1 % cream 00:00: 00:[place] (two[place] Medical daily. Branch oxyCODONE 5 2022-2022- No 4647 5mg Take 1 [facility] mg 3-23 03-31 tablet by ity of immediate 00:00: 04:59 mouth [place] release 00 :00 every 4 Medical tablet (four) Branch hours as needed for Pain (scale 4-6) for up to 7 days. Indication s: acute pain, vulvar cancer receiving radiation oxyCODONE 5 2022-2022- No 4647 5mg Take 1 [facility] mg 3-23 03-31 tablet by ity of immediate 00:00: 04:59 mouth [place] release 00 :00 every 4 Medical tablet (four) Branch hours as needed for Pain (scale 4-6) for up to 7 days. Indication s: acute pain, vulvar cancer receiving radiation oxyCODONE 5 2022-2022- No 4647 5mg Take 1 [facility] mg 3-23 03-31 tablet by ity of immediate 00:00: 04:59 mouth [place] release 00 :00 every 4 Medical tablet (four) Branch hours as needed for Pain (scale 4-6) for up to 7 days. Indication s: acute pain, vulvar cancer receiving radiation oxyCODONE 5 2022-0 2022- No 4647 5mg Take 1 [facility] mg 3-23 03-31 tablet by ity of immediate 00:00: 04:59 mouth [place] release 00 :00 every 4 Medical tablet (four) Branch hours as needed for Pain (scale 4-6) for up to 7 days. Indication s: acute pain, vulvar cancer receiving radiation oxyCODONE 5 2022-0 2022- No 4647 5mg Take 1 [facility] mg 3-23 03-31 tablet by ity of immediate 00:00: 04:59 mouth [place] release 00 :00 every 4 Medical tablet (four) Branch hours as needed for Pain (scale 4-6) for up to 7 days. Indication s: acute pain, vulvar cancer receiving radiation oxyCODONE 5 2022-0 3- No 4647 5mg Take 1 [facility] mg 3-23 03-31 tablet by ity of immediate 00:00: 04:59 mouth [place] release 00 :00 every 4 Medical tablet (four) Branch hours as needed for Pain (scale 4-6) for up to 7 days. Indication s: acute pain, vulvar cancer receiving radiation oxyCODONE 5 2022-0 3- No 4647 5mg Take 1 [facility] mg 3-23 03-31 tablet by ity of immediate 00:00: 04:59 mouth [place] release 00 :00 every 4 Medical tablet (four) Branch hours as needed for Pain (scale 4-6) for up to 7 days. Indication s: acute pain, vulvar cancer receiving radiation oxyCODONE 5 2022-0 3- No 4647 5mg Take 1 [facility] mg 3-23 03-31 tablet by ity of immediate 00:00: 04:59 mouth [place] release 00 :00 every 4 Medical tablet (four) Branch hours as needed for Pain (scale 4-6) for up to 7 days. Indication s: acute pain, vulvar cancer receiving radiation oxyCODONE 5 2022-0 3- No 4647 5mg Take 1 [facility] mg 3-23 03-31 tablet by ity of immediate 00:00: 04:59 mouth [place] release 00 :00 every 4 Medical tablet (four) Branch hours as needed for Pain (scale 4-6) for up to 7 days. Indication s: acute pain, vulvar cancer receiving radiation oxyCODONE 5 2022-0 3- No 4647 5mg Take 1 [facility] mg 3-23 03-31 tablet by ity of immediate 00:00: 04:59 mouth [place] release 00 :00 every 4 Medical tablet (four) Branch hours as needed for Pain (scale 4-6) for up to 7 days. Indication s: acute pain, vulvar cancer receiving radiation oxyCODONE 5 2022-0 3- No 4647 5mg Take 1 [facility] mg 3-23 03-31 tablet by ity of immediate 00:00: 04:59 mouth [place] release 00 :00 every 4 Medical tablet (four) Branch hours as needed for Pain (scale 4-6) for up to 7 days. Indication s: acute pain, vulvar cancer receiving radiation oxyCODONE 5 2022- No 4647 5mg Take 1 [facility] vers mg 06-22 tablet by ity of immediate 00:00: 04:59 mouth [place] release 00 :00 every 4 Medical tablet (four) Branch hours as needed for Pain (scale 4-6) for up to 7 days. Indication s: acute pain, vulvar cancer receiving radiation oxyCODONE 5 2022- No 4647 5mg Take 1 [facility] vers mg 06-22- tablet by ity of immediate 00:00: 04:59 mouth [place] release 00 :00 every 4 Medical tablet (four) Branch hours as needed for Pain (scale 4-6) for up to 7 days. Indication s: acute pain, vulvar cancer receiving radiation oxyCODONE 5 2022- No 4647 5mg Take 1 Uni vers mg 06-22 tablet by ity of immediate 00:00: 04:59 mouth [place] release 00 :00 every 4 Medical tablet (four) Branch hours as needed for Pain (scale 4-6) for up to 7 days. Indication s: acute pain, vulvar cancer receiving radiation CARBOplatin 2022- No [id number] 268mg 268 mg [facility] (PARAPLATIN 06-19 ([facility] ity of ) 268 mg in 19:30: 19:08 AUC = 2), [place] D5W 250 mL 00 :00 IV Medical infusion Infusion, Branch ONCE, Administer over 30 Minutes, On 06/19/22 at 1430, For 1 dose
Ta xane derivative s should be given before [place] derivative s.
palonosetro 2022- No [id number] .25mg 0.25 mg, Univers n (ALOXI) 06-19 Intravenou ity of injection 18:00: 17:55 s, ONCE, 1 [place] 0.25 mg 00 :00 dose, On Medical Mon Branch 06/19/22 at 1300, Routine
tribunal member approving Restricted medication : [facility] famotidine 2022- No [id number] 20mg 20 mg, [facility] (PEPCID 06-19-20 Slow IV ity of (PF)) 18:00: 17:57 Push, [place] injection 00 :00 ONCE, 1 Medical 20 mg dose, On Branch 06/19/22 at 1300, Routine diphenhydrA 0 2022- No [id number] 25mg 25 mg, Univers MINE 06-1920 Slow IV ity of (BENADRYL) 18:00: 18:02 Push, [place] injection 00 :00 ONCE, 1 Medical 25 mg dose, On Branch 06/19/22 at 1300, Routine dexAMETHaso 2022- No [id number] 12mg 12 mg, Univers ne 06-1920 Oral, ity of (DECADRON) 18:00: 17:55 ONCE, 1 [place] tablet 12 00 :00 dose, On Medica l mg Mon Branch 06/19/22 at 1300, Routine HYDROcodone 0 Yes 4647 1{tbl} Take 1 Un ean -acetaminop 3-20 tablet by ity of hen ([employer]) 00:00: mouth [place] 10-325 mg 00 every 6 Medical tablet (six) Branch hours as needed for Pain (scale 4-6) for up to 24 doses. Indication s: acute pain HYDROcodone 2022-0 Yes 4647 1{tbl} Take 1 Un ean -acetaminop 3-20 tablet by ity of hen ([employer]) 00:00: mouth [place] 10-325 mg 00 every 6 Medical tablet (six) Branch hours as needed for Pain (scale 4-6) for up to 24 doses. Indication s: acute pain HYDROcodone 2022-0 Yes 4647 1{tbl} Take 1 Un ean -acetaminop 3-20 tablet by ity of hen ([facility]) 00:00: mouth [place] 10-325 mg 00 every 6 Medical tablet (six) Branch hours as needed for Pain (scale 4-6) for up to 24 doses. Indication s: acute pain HYDROcodone 2022-0 Yes 4647 1{tbl} Take 1 Un ean -acetaminop 3-20 tablet by ity of hen ([employer]) 00:00: mouth [place] 10-325 mg 00 every 6 Medical tablet (six) Branch hours as needed for Pain (scale 4-6) for up to 24 doses. Indication s: acute pain HYDROcodone 2023-0 Yes 4647 1{tbl} Take 1 Un ean -acetaminop 3-20 tablet by ity of hen ([employer]) 00:00: mouth [place] 10-325 mg 00 every 6 Medical tablet (six) Branch hours as needed for Pain (scale 4-6) for up to 24 doses. Indication s: acute pain HYDROcodone 2023-0 Yes 4647 1{tbl} Take 1 Un ean -acetaminop 3-20 tablet by ity of hen ([employer]) 00:00: mouth [place] 10-325 mg 00 every 6 Medical tablet (six) Branch hours as needed for Pain (scale 4-6) for up to 24 doses. Indication s: acute pain HYDROcodone 2023-0 Yes 4647 1{tbl} Take 1 Un ean -acetaminop 3-20 tablet by ity of hen ([employer]) 00:00: mouth [place] 10-325 mg 00 every 6 Medical tablet (six) Branch hours as needed for Pain (scale 4-6) for up to 24 doses. Indication s: acute pain HYDROcodone 2023-0 Yes 4647 1{tbl} Take 1 Un ean -acetaminop 3-20 tablet by ity of hen ([employer]) 00:00: mouth [place] 10-325 mg 00 every 6 Medical tablet (six) Branch hours as needed for Pain (scale 4-6) for up to 24 doses. Indication s: acute pain HYDROcodone 2023-0 Yes 4647 1{tbl} Take 1 Un ean -acetaminop 3-20 tablet by ity of hen ([facility]) 00:00: mouth [place] 10-325 mg 00 every 6 Medical tablet (six) Branch hours as needed for Pain (scale 4-6) for up to 24 doses. Indication s: acute pain HYDROcodone 2023-0 Yes 4647 1{tbl} Take 1 Un ean -acetaminop 3-20 tablet by ity of hen ([facility]) 00:00: mouth [place] 10-325 mg 00 every 6 Medical tablet (six) Branch hours as needed for Pain (scale 4-6) for up to 24 doses. Indication s: acute pain HYDROcodone 2023-0 Yes 4647 1{tbl} Take 1 Un ean -acetaminop 3-20 tablet by ity of hen ([employer]) 00:00: mouth [place] 10-325 mg 00 every 6 Medical tablet (six) Branch hours as needed for Pain (scale 4-6) for up to 24 doses. Indication s: acute pain HYDROcodone 2023-0 Yes 4647 1{tbl} Take 1 Un ean -acetaminop 3-20 tablet by ity of hen ([employer]) 00:00: mouth [place] 10-325 mg 00 every 6 Medical tablet (six) Branch hours as needed for Pain (scale 4-6) for up to 24 doses. Indication s: acute pain HYDROcodone 2023-0 Yes 4647 1{tbl} Take 1 Un ean -acetaminop 3-20 tablet by ity of hen ([employer]) 00:00: mouth [place] 10-325 mg 00 every 6 Medical tablet (six) Branch hours as needed for Pain (scale 4-6) for up to 24 doses. Indication s: acute pain HYDROcodone 2023-0 Yes 4647 1{tbl} Take 1 Un ean -acetaminop 3-20 tablet by ity of hen ([employer]) 00:00: mouth [place] 10-325 mg 00 every 6 Medical tablet (six) Branch hours as needed for Pain (scale 4-6) for up to 24 doses. Indication s: acute pain HYDROcodone 2023-0 Yes 4647 1{tbl} Take 1 Un ean -acetaminop 3-20 tablet by ity of hen ([employer]) 00:00: mouth [place] 10-325 mg 00 every 6 Medical tablet (six) Branch hours as needed for Pain (scale 4-6) for up to 24 doses. Indication s: acute pain HYDROcodone 2023-0 Yes 4647 1{tbl} Take 1 Un ean -acetaminop 3-20 tablet by ity of hen ([employer]) 00:00: mouth [place] 10-325 mg 00 every 6 Medical tablet (six) Branch hours as needed for Pain (scale 4-6) for up to 24 doses. Indication s: acute pain HYDROcodone 2023-0 Yes 4647 1{tbl} Take 1 Un ean -acetaminop 3-20 tablet by ity of hen ([employer]) 00:00: mouth [place] 10-325 mg 00 every 6 Medical tablet (six) Branch hours as needed for Pain (scale 4-6) for up to 24 doses. Indication s: acute pain HYDROcodone 2023-0 Yes 4647 1{tbl} Take 1 Un ean -acetaminop 3-20 tablet by ity of hen ([employer]) 00:00: mouth [place] 10-325 mg 00 every 6 Medical tablet (six) Branch hours as needed for Pain (scale 4-6) for up to 24 doses. Indication s: acute pain HYDROcodone 2023-0 Yes 4647 1{tbl} Take 1 Un ean -acetaminop 3-20 tablet by ity of hen ([employer]) 00:00: mouth [place] 10-325 mg 00 every 6 Medical tablet (six) Branch hours as needed for Pain (scale 4-6) for up to 24 doses. Indication s: acute pain HYDROcodone 2023-0 Yes 4647 1{tbl} Take 1 Un ean -acetaminop 3-20 tablet by ity of hen ([employer]) 00:00: mouth [place] 10-325 mg 00 every 6 Medical tablet (six) Branch hours as needed for Pain (scale 4-6) for up to 24 doses. Indication s: acute pain HYDROcodone 2023-0 Yes 4647 1{tbl} Take 1 Un ean -acetaminop 3-20 tablet by ity of hen ([employer]) 00:00: mouth [place] 10-325 mg 00 every 6 Medical tablet (six) Branch hours as needed for Pain (scale 4-6) for up to 24 doses. Indication s: acute pain HYDROcodone 2023-0 Yes 4647 1{tbl} Take 1 Un ean -acetaminop 3-20 tablet by ity of hen ([employer]) 00:00: mouth [place] 10-325 mg 00 every 6 Medical tablet (six) Branch hours as needed for Pain (scale 4-6) for up to 24 doses. Indication s: acute pain HYDROcodone 2023-0 Yes 4647 1{tbl} Take 1 Un ean -acetaminop 3-20 tablet by ity of hen ([employer]) 00:00: mouth [place] 10-325 mg 00 every 6 Medical tablet (six) Branch hours as needed for Pain (scale 4-6) for up to 24 doses. Indication s: acute pain HYDROcodone 2023-0 Yes 4647 1{tbl} Take 1 Un ean -acetaminop 3-20 tablet by ity of hen ([employer]) 00:00: mouth [place] 10-325 mg 00 every 6 Medical tablet (six) Branch hours as needed for Pain (scale 4-6) for up to 24 doses. Indication s: acute pain HYDROcodone 2023-0 Yes 4647 1{tbl} Take 1 Un ean -acetaminop 3-20 tablet by ity of hen ([employer]) 00:00: mouth [place] 10-325 mg 00 every 6 Medical tablet (six) Branch hours as needed for Pain (scale 4-6) for up to 24 doses. Indication s: acute pain HYDROcodone 2023-0 Yes 4647 1{tbl} Take 1 Un ean -acetaminop 3-20 tablet by ity of hen ([employer]) 00:00: mouth [place] 10-325 mg 00 every 6 Medical tablet (six) Branch hours as needed for Pain (scale 4-6) for up to 24 doses. Indication s: acute pain HYDROcodone 3-0 Yes 4647 1{tbl} Take 1 Un ean -acetaminop 3-20 tablet by ity of hen ([employer]) 00:00: mouth [place] 10-325 mg 00 every 6 Medical tablet (six) Branch hours as needed for Pain (scale 4-6) for up to 24 doses. Indication s: acute pain HYDROcodone 2023-0 Yes 4647 1{tbl} Take 1 Un ean -acetaminop 3-20 tablet by ity of hen ([employer]) 00:00: mouth [place] 10-325 mg 00 every 6 Medical tablet (six) Branch hours as needed for Pain (scale 4-6) for up to 24 doses. Indication s: acute pain HYDROcodone 2023-0 Yes 4647 1{tbl} Take 1 Un ean -acetaminop 3-20 tablet by ity of hen ([employer]) 00:00: mouth [place] 10-325 mg 00 every 6 Medical tablet (six) Branch hours as needed for Pain (scale 4-6) for up to 24 doses. Indication s: acute pain HYDROcodone 2023-0 Yes 4647 1{tbl} Take 1 Un ean -acetaminop 3-20 tablet by ity of hen ([employer]) 00:00: mouth [place] 10-325 mg 00 every 6 Medical tablet (six) Branch hours as needed for Pain (scale 4-6) for up to 24 doses. Indication s: acute pain HYDROcodone 2023-0 Yes 4647 1{tbl} Take 1 Un ean -acetaminop 3-20 tablet by ity of hen ([employer]) 00:00: mouth [place] 10-325 mg 00 every 6 Medical tablet (six) Branch hours as needed for Pain (scale 4-6) for up to 24 doses. Indication s: acute pain HYDROcodone 2023-0 Yes 4647 1{tbl} Take 1 Un ean -acetaminop 3-20 tablet by ity of hen ([employer]) 00:00: mouth [place] 10-325 mg 00 every 6 Medical tablet (six) Branch hours as needed for Pain (scale 4-6) for up to 24 doses. Indication s: acute pain HYDROcodone 2023-0 Yes 4647 1{tbl} Take 1 Un ean -acetaminop 3-20 tablet by ity of hen ([employer]) 00:00: mouth [place] 10-325 mg 00 every 6 Medical tablet (six) Branch hours as needed for Pain (scale 4-6) for up to 24 doses. Indication s: acute pain HYDROcodone 2023-0 Yes 4647 1{tbl} Take 1 Un ean -acetaminop 3-20 tablet by ity of hen ([employer]) 00:00: mouth [place] 10-325 mg 00 every 6 Medical tablet (six) Branch hours as needed for Pain (scale 4-6) for up to 24 doses. Indication s: acute pain HYDROcodone 2023-0 Yes 4647 1{tbl} Take 1 Un ean -acetaminop 3-20 tablet by ity of hen ([employer]) 00:00: mouth [place] 10-325 mg 00 every 6 Medical tablet (six) Branch hours as needed for Pain (scale 4-6) for up to 24 doses. Indication s: acute pain HYDROcodone 2023-0 Yes 4647 1{tbl} Take 1 Un ean -acetaminop 3-20 tablet by ity of hen ([employer]) 00:00: mouth [place] 10-325 mg 00 every 6 Medical tablet (six) Branch hours as needed for Pain (scale 4-6) for up to 24 doses. Indication s: acute pain HYDROcodone 2023-0 Yes 4647 1{tbl} Take 1 Un ean -acetaminop 3-20 tablet by ity of hen ([employer]) 00:00: mouth [place] 10-325 mg 00 every 6 Medical tablet (six) Branch hours as needed for Pain (scale 4-6) for up to 24 doses. Indication s: acute pain HYDROcodone 2023-0 Yes 4647 1{tbl} Take 1 Un ean -acetaminop 3-20 tablet by ity of hen ([employer]) 00:00: mouth [place] 10-325 mg 00 every 6 Medical tablet (six) Branch hours as needed for Pain (scale 4-6) for up to 24 doses. Indication s: acute pain HYDROcodone 2023-0 Yes 4647 1{tbl} Take 1 Un ean -acetaminop 3-20 tablet by ity of hen ([employer]) 00:00: mouth [place] 10-325 mg 00 every 6 Medical tablet (six) Branch hours as needed for Pain (scale 4-6) for up to 24 doses. Indication s: acute pain HYDROcodone 2023-0 Yes 4647 1{tbl} Take 1 Un ean -acetaminop 3-20 tablet by ity of hen ([employer]) 00:00: mouth [place] 10-325 mg 00 every 6 Medical tablet (six) Branch hours as needed for Pain (scale 4-6) for up to 24 doses. Indication s: acute pain HYDROcodone 2023-0 Yes 4647 1{tbl} Take 1 Un ean -acetaminop 3-20 tablet by ity of hen ([employer]) 00:00: mouth [place] 10-325 mg 00 every 6 Medical tablet (six) Branch hours as needed for Pain (scale 4-6) for up to 24 doses. Indication s: acute pain HYDROcodone 2023-0 Yes 4647 1{tbl} Take 1 Un ean -acetaminop 3-20 tablet by ity of hen ([employer]) 00:00: mouth [place] 10-325 mg 00 every 6 Medical tablet (six) Branch hours as needed for Pain (scale 4-6) for up to 24 doses. Indication s: acute pain HYDROcodone 2023-0 Yes 4647 1{tbl} Take 1 Un ean -acetaminop 3-20 tablet by ity of hen ([employer]) 00:00: mouth [place] 10-325 mg 00 every 6 Medical tablet (six) Branch hours as needed for Pain (scale 4-6) for up to 24 doses. Indication s: acute pain HYDROcodone 2023-0 Yes 4647 1{tbl} Take 1 Un ean -acetaminop 3-20 tablet by ity of hen ([employer]) 00:00: mouth [place] 10-325 mg 00 every 6 Medical tablet (six) Branch hours as needed for Pain (scale 4-6) for up to 24 doses. Indication s: acute pain HYDROcodone 2023-0 Yes 4647 1{tbl} Take 1 Un ean -acetaminop 3-20 tablet by ity of hen ([employer]) 00:00: mouth [place] 10-325 mg 00 every 6 Medical tablet (six) Branch hours as needed for Pain (scale 4-6) for up to 24 doses. Indication s: acute pain HYDROcodone 2023-0 Yes 4647 1{tbl} Take 1 Un ean -acetaminop 3-20 tablet by ity of hen ([employer]) 00:00: mouth [place] 10-325 mg 00 every 6 Medical tablet (six) Branch hours as needed for Pain (scale 4-6) for up to 24 doses. Indication s: acute pain HYDROcodone 2023-0 Yes 4647 1{tbl} Take 1 Un ean -acetaminop 3-20 tablet by ity of hen ([employer]) 00:00: mouth [place] 10-325 mg 00 every 6 Medical tablet (six) Branch hours as needed for Pain (scale 4-6) for up to 24 doses. Indication s: acute pain HYDROcodone 2023-0 Yes 4647 1{tbl} Take 1 Un ean -acetaminop 3-20 tablet by ity of hen ([employer]) 00:00: mouth [place] 10-325 mg 00 every 6 Medical tablet (six) Branch hours as needed for Pain (scale 4-6) for up to 24 doses. Indication s: acute pain HYDROcodone 2023-0 Yes 4647 1{tbl} Take 1 Un ean -acetaminop 3-20 tablet by ity of hen ([employer]) 00:00: mouth [place] 10-325 mg 00 every 6 Medical tablet (six) Branch hours as needed for Pain (scale 4-6) for up to 24 doses. Indication s: acute pain HYDROcodone 2023-0 Yes 4647 1{tbl} Take 1 Un ean -acetaminop 3-20 tablet by ity of hen ([employer]) 00:00: mouth [place] 10-325 mg 00 every 6 Medical tablet (six) Branch hours as needed for Pain (scale 4-6) for up to 24 doses. Indication s: acute pain HYDROcodone 2023-0 Yes 4647 1{tbl} Take 1 Un ean -acetaminop 3-20 tablet by ity of hen ([employer]) 00:00: mouth [place] 10-325 mg 00 every 6 Medical tablet (six) Branch hours as needed for Pain (scale 4-6) for up to 24 doses. Indication s: acute pain HYDROcodone 2023-0 Yes 4647 1{tbl} Take 1 Un ean -acetaminop 3-20 tablet by ity of hen ([employer]) 00:00: mouth [place] 10-325 mg 00 every 6 Medical tablet (six) Branch hours as needed for Pain (scale 4-6) for up to 24 doses. Indication s: acute pain HYDROcodone 2023-0 Yes 4647 1{tbl} Take 1 Un ean -acetaminop 3-20 tablet by ity of hen ([employer]) 00:00: mouth [place] 10-325 mg 00 every 6 Medical tablet (six) Branch hours as needed for Pain (scale 4-6) for up to 24 doses. Indication s: acute pain HYDROcodone 2023-0 Yes 4647 1{tbl} Take 1 Un ean -acetaminop 3-20 tablet by ity of hen ([employer]) 00:00: mouth [place] 10-325 mg 00 every 6 Medical tablet (six) Branch hours as needed for Pain (scale 4-6) for up to 24 doses. Indication s: acute pain HYDROcodone 2023-0 Yes 4647 1{tbl} Take 1 Un ean -acetaminop 3-20 tablet by ity of hen ([employer]) 00:00: mouth [place] 10-325 mg 00 every 6 Medical tablet (six) Branch hours as needed for Pain (scale 4-6) for up to 24 doses. Indication s: acute pain HYDROcodone 2023-0 Yes 4647 1{tbl} Take 1 Un ean -acetaminop 3-20 tablet by ity of hen ([employer]) 00:00: mouth [place] 10-325 mg 00 every 6 Medical tablet (six) Branch hours as needed for Pain (scale 4-6) for up to 24 doses. Indication s: acute pain HYDROcodone 2023-0 Yes 4647 1{tbl} Take 1 Un ean -acetaminop 3-20 tablet by ity of hen ([employer]) 00:00: mouth [place] 10-325 mg 00 every 6 Medical tablet (six) Branch hours as needed for Pain (scale 4-6) for up to 24 doses. Indication s: acute pain HYDROcodone 2023-0 Yes 4647 1{tbl} Take 1 Un ean -acetaminop 3-20 tablet by ity of hen ([employer]) 00:00: mouth [place] 10-325 mg 00 every 6 Medical tablet (six) Branch hours as needed for Pain (scale 4-6) for up to 24 doses. Indication s: acute pain HYDROcodone 2023-0 Yes 4647 1{tbl} Take 1 Un ean -acetaminop 3-20 tablet by ity of hen ([employer]) 00:00: mouth [place] 10-325 mg 00 every 6 Medical tablet (six) Branch hours as needed for Pain (scale 4-6) for up to 24 doses. Indication s: acute pain HYDROcodone 2023-0 Yes 4647 1{tbl} Take 1 Un ean -acetaminop 3-20 tablet by ity of hen ([employer]) 00:00: mouth [place] 10-325 mg 00 every 6 Medical tablet (six) Branch hours as needed for Pain (scale 4-6) for up to 24 doses. Indication s: acute pain HYDROcodone 2023-0 Yes 4647 1{tbl} Take 1 Un ean -acetaminop 3-20 tablet by ity of hen ([employer]) 00:00: mouth [place] 10-325 mg 00 every 6 Medical tablet (six) Branch hours as needed for Pain (scale 4-6) for up to 24 doses. Indication s: acute pain HYDROcodone 2023-0 Yes 4647 1{tbl} Take 1 Un ean -acetaminop 3-20 tablet by ity of hen ([employer]) 00:00: mouth [place] 10-325 mg 00 every 6 Medical tablet (six) Branch hours as needed for Pain (scale 4-6) for up to 24 doses. Indication s: acute pain HYDROcodone 2023-0 Yes 4647 1{tbl} Take 1 Un ean -acetaminop 3-20 tablet by ity of hen ([employer]) 00:00: mouth [place] 10-325 mg 00 every 6 Medical tablet (six) Branch hours as needed for Pain (scale 4-6) for up to 24 doses. Indication s: acute pain HYDROcodone 2023-0 Yes 4647 1{tbl} Take 1 Un ean -acetaminop 3-20 tablet by ity of hen ([employer]) 00:00: mouth [place] 10-325 mg 00 every 6 Medical tablet (six) Branch hours as needed for Pain (scale 4-6) for up to 24 doses. Indication s: acute pain HYDROcodone 2023-0 Yes 4647 1{tbl} Take 1 Un ean -acetaminop 3-20 tablet by ity of hen ([facility]) 00:00: mouth [place] 10-325 mg 00 every 6 Medical tablet (six) Branch hours as needed for Pain (scale 4-6) for up to 24 doses. Indication s: acute pain HYDROcodone 2023-0 Yes 4647 1{tbl} Take 1 Un ean -acetaminop 3-20 tablet by ity of hen ([facility]) 00:00: mouth [place] 10-325 mg 00 every 6 Medical tablet (six) Branch hours as needed for Pain (scale 4-6) for up to 24 doses. Indication s: acute pain HYDROcodone 2023-0 Yes 4647 1{tbl} Take 1 Un ean -acetaminop 3-20 tablet by ity of hen ([facility]) 00:00: mouth [place] 10-325 mg 00 every 6 Medical tablet (six) Branch hours as needed for Pain (scale 4-6) for up to 24 doses. Indication s: acute pain HYDROcodone 2023-0 Yes 4647 1{tbl} Take 1 Un ean -acetaminop 3-20 tablet by ity of hen ([facility]) 00:00: mouth [place] 10-325 mg 00 every 6 Medical tablet (six) Branch hours as needed for Pain (scale 4-6) for up to 24 doses. Indication s: acute pain HYDROcodone 2023-0 Yes 4647 1{tbl} Take 1 Un ean -acetaminop 3-20 tablet by ity of hen ([employer]) 00:00: mouth [place] 10-325 mg 00 every 6 Medical tablet (six) Branch hours as needed for Pain (scale 4-6) for up to 24 doses. Indication s: acute pain HYDROcodone 2022-0 Yes 4647 1{tbl} Take 1 Un ean -acetaminop 3-20 tablet by ity of hen ([employer]) 00:00: mouth [place] 10-325 mg 00 every 6 Medical tablet (six) Branch hours as needed for Pain (scale 4-6) for up to 24 doses. Indication s: acute pain HYDROcodone 2022-0 Yes 4647 1{tbl} Take 1 Un ean -acetaminop 3-20 tablet by ity of hen ([employer]) 00:00: mouth [place] 10-325 mg 00 every 6 Medical tablet (six) Branch hours as needed for Pain (scale 4-6) for up to 24 doses. Indication s: acute pain gadobenate 2022- No [id number] .2mL/kg 21.2 mL [facility] dimeglumine 3-17 -17 (0.2 mL/kg i ty of (MULTIHANCE 22:15: 22:08 ?106 kg), [place] -20 mL) 00 :00 Intravenou Medica l injection s, ONCE, 1 Bran ch 21.2 mL dose, On Sun06/16/22 at 1715, Routine fluconazole 2022-0 Yes 100mg Take 1 Uni vers (DIFLUCAN) 3-16 tablet by ity of 100 mg 00:00: mouth in [place] tablet 00 the Medical morning. Branch fluconazole 2022-0 Yes 100mg Take 1 Uni vers (DIFLUCAN) 3-16 tablet by ity of 100 mg 00:00: mouth in [place] tablet 00 the Medical morning. Branch fluconazole 2022-0 Yes 100mg Take 1 [facility] vers (DIFLUCAN) 3-16 tablet by ity of 100 mg 00:00: mouth in [place] tablet 00 the Medical morning. Branch fluconazole 3-0 Yes 100mg Take 1 [facility] vers (DIFLUCAN) 3-16 tablet by ity of 100 mg 00:00: mouth in [place] tablet 00 the Medical morning. Branch fluconazole 2023-0 Yes 100mg Take 1 Uni vers (DIFLUCAN) 3-16 tablet by ity of 100 mg 00:00: mouth in [place] tablet 00 the Medical morning. Branch fluconazole 3-0 Yes 100mg Take 1 [facility] vers (DIFLUCAN) 3-16 tablet by ity of 100 mg 00:00: mouth in [place] tablet 00 the Medical morning. Branch fluconazole 2023-0 Yes 100mg Take 1 [facility] vers (DIFLUCAN) 3-16 tablet by ity of 100 mg 00:00: mouth in [place] tablet 00 the Medical morning. Branch fluconazole 2023-0 Yes 100mg Take 1 [facility] vers (DIFLUCAN) 3-16 tablet by ity of 100 mg 00:00: mouth in [place] tablet 00 the Medical morning. Branch fluconazole 2023-0 Yes 100mg Take 1 [facility] vers (DIFLUCAN) 3-16 tablet by ity of 100 mg 00:00: mouth in [place] tablet 00 the Medical morning. Branch fluconazole 2023-0 Yes 100mg Take 1 [facility] vers (DIFLUCAN) 3-16 tablet by ity of 100 mg 00:00: mouth in [place] tablet 00 the Medical morning. Branch fluconazole 2023-0 Yes 100mg Take 1 [facility] vers (DIFLUCAN) 3-16 tablet by ity of 100 mg 00:00: mouth in [place] tablet 00 the Medical morning. Branch fluconazole 2023-0 Yes 100mg Take 1 [facility] vers (DIFLUCAN) 3-16 tablet by ity of 100 mg 00:00: mouth in [place] tablet 00 the Medical morning. Branch fluconazole 2023-0 Yes 100mg Take 1 [facility] vers (DIFLUCAN) 3-16 tablet by ity of 100 mg 00:00: mouth in [place] tablet 00 the Medical morning. Branch fluconazole 2023-0 Yes 100mg Take 1 [facility] vers (DIFLUCAN) 3-16 tablet by ity of 100 mg 00:00: mouth in [place] tablet 00 the Medical morning. Branch fluconazole 2023-0 Yes 100mg Take 1 [facility] vers (DIFLUCAN) 3-16 tablet by ity of 100 mg 00:00: mouth in [place] tablet 00 the Medical morning. Branch fluconazole 2023-0 Yes 100mg Take 1 [facility] vers (DIFLUCAN) 3-16 tablet by ity of 100 mg 00:00: mouth in [place] tablet 00 the Medical morning. Branch fluconazole 2023-0 Yes 100mg Take 1 [facility] vers (DIFLUCAN) 3-16 tablet by ity of 100 mg 00:00: mouth in [place] tablet 00 the Medical morning. Branch fluconazole 2023-0 Yes 100mg Take 1 [facility] vers (DIFLUCAN) 3-16 tablet by ity of 100 mg 00:00: mouth in [place] tablet 00 the Medical morning. Branch fluconazole 2023-0 Yes 100mg Take 1 [facility] vers (DIFLUCAN) 3-16 tablet by ity of 100 mg 00:00: mouth in [place] tablet 00 the Medical morning. Branch fluconazole 2023-0 Yes 100mg Take 1 [facility] vers (DIFLUCAN) 3-16 tablet by ity of 100 mg 00:00: mouth in [place] tablet 00 the Medical morning. Branch fluconazole 2023-0 Yes 100mg Take 1 [facility] vers (DIFLUCAN) 3-16 tablet by ity of 100 mg 00:00: mouth in [place] tablet 00 the Medical morning. Branch fluconazole 2023-0 Yes 100mg Take 1 [facility] vers (DIFLUCAN) 3-16 tablet by ity of 100 mg 00:00: mouth in [place] tablet 00 the Medical morning. Branch fluconazole 2023-0 Yes 100mg Take 1 [facility] vers (DIFLUCAN) 3-16 tablet by ity of 100 mg 00:00: mouth in [place] tablet 00 the Medical morning. Branch fluconazole 2023-0 Yes 100mg Take 1 [facility] vers (DIFLUCAN) 3-16 tablet by ity of 100 mg 00:00: mouth in [place] tablet 00 the Medical morning. Branch fluconazole 2023-0 Yes 100mg Take 1 [facility] vers (DIFLUCAN) 3-16 tablet by ity of 100 mg 00:00: mouth in [place] tablet 00 the Medical morning. Branch fluconazole 2023-0 Yes 100mg Take 1 Uni vers (DIFLUCAN) 3-16 tablet by ity of 100 mg 00:00: mouth in [place] tablet 00 the Medical morning. Branch fluconazole 2023-0 Yes 100mg Take 1 Uni vers (DIFLUCAN) 3-16 tablet by ity of 100 mg 00:00: mouth in [place] tablet 00 the Medical morning. Branch fluconazole 2023-0 Yes 100mg Take 1 Uni vers (DIFLUCAN) 3-16 tablet by ity of 100 mg 00:00: mouth in [place] tablet 00 the Medical morning. Branch fluconazole 2023-0 Yes 100mg Take 1 Uni vers (DIFLUCAN) 3-16 tablet by ity of 100 mg 00:00: mouth in [place] tablet 00 the Medical morning. Branch fluconazole 2023-0 Yes 100mg Take 1 Uni vers (DIFLUCAN) 3-16 tablet by ity of 100 mg 00:00: mouth in [place] tablet 00 the Medical morning. Branch fluconazole Yes 100mg Take 1 Uni vers (DIFLUCAN) 3-16 tablet by ity of 100 mg 00:00: mouth in [place] tablet 00 the Medical morning. Branch fluconazole Yes 100mg Take 1 Uni vers (DIFLUCAN) 3-16 tablet by ity of 100 mg 00:00: mouth in [place] tablet 00 the Medical morning. Branch fluconazole 2022- No 100mg Take 1 Un ean (DIFLUCAN) 3-16 03-30 tablet by ity of 100 mg 00:00: 00:00 mouth in [place] tablet 00 :00 the Medical morning. Branch CARBOplatin No [id number] 300mg 300 mg [facility] (PARAPLATIN 06-12 (Target ity of ) 300 mg in 20:00: 19:40 AUC = 2), [place] D5W 250 mL 00 :00 IV Medical infusion Infusion, Branch ONCE, Administer over 30 Minutes, On Sun06/12/22 at 1500, For 1 dose
Ta xane derivative s should be given before [place] derivative s.
palonosetro No [id number] .25mg 0.25 mg, [facility] n (ALOXI) 06-12 Intravenou ity of injection 17:45: 18:03 s, ONCE, 1 [place] 0.25 mg 00 :00 dose, On Medical Mon Branch 06/12/22 at 1245, Routine
tribunal member approving Restricted medication : [facility] famotidine No [id number] 20mg 20 mg, [facility] (PEPCID 06-12 Slow IV ity of (PF)) 17:45: 18:00 Push, [place] injection 00 :00 ONCE, 1 Medical 20 mg dose, On Branch [facility] 06/12/22 at 1245, Routine diphenhydrA No [id number] 25mg 25 mg, [facility] MINE 06-12 Slow IV ity of (BENADRYL) 17:45: 17:55 Push, [place] injection 00 :00 ONCE, 1 Medical 25 mg dose, On Branch [facility] 06/12/22 at 1245, Routine dexAMETHaso 2022- No [id number] 12mg 12 mg, [facility] ne 06-12 Oral, ity of (DECADRON) 17:45: 17:51 ONCE, 1 [place] tablet 12 00 :00 dose, On Medica l mg Sun06/12/22 at 1245, Routine proCHLORper 2022- No [id number] 10mg 10 mg, [facility] azine 06-12 Oral, ity of (COMPAZINE) 17:32: 17:31 Q6HPRN, [place] tablet 10 11 :11 Starting Medica l mg on Sun Branch 06/12/22 at 1232, Until 06/13/22 at 1231, Routine, Nausea and Vomiting (N/V) heparin No [id number] 500U 500 Units, [facility] lock flush 06-12 IV Push, ity of (HEPARIN 17:32: 17:31 PRN, [place] LOCKFLUSH(P 11 :11 Starting Medi nicolas ORCINE)(PF) on Sun ) 100 06/12/22 at unit/mL 1232, injection Until Tue 500 Units 06/13/22 at 1231, Routine CARBOplatin 2022- No [id number] 265.6mg 265.6 mg [facility] (PARAPLATIN 06-05 (Target ity of ) 265.6 mg 22:00: 21:30 AUC = 2), [place] in D5W 250 00 :00 IV Medical mL infusion Infusion, [facility] ONCE, Administer over 30 Minutes, On Sun06/05/22 at 1600, For 1 dose
Ta xane derivative s should be given before [place] derivative s.
palonosetro 2022- No [id number] .25mg 0.25 mg, [facility] n (ALOXI) 06-05 Intravenou ity of injection 20:30: 20:27 s, ONCE, 1 [place] 0.25 mg 00 :00 dose, On Medical [facility] 06/05/22 Branch at 1430, Routine
tribunal member approving Restricted medication : [facility] famotidine 2022- No [id number] 20mg 20 mg, [facility] (PEPCID 06-05 Slow IV ity of (PF)) 20:30: 20:31 Push, [place] injection 00 :00 ONCE, 1 Medical 20 mg dose, On Branch Sun06/05/22 at 1430, Routine diphenhydrA No [id number] 25mg 25 mg, [facility] MINE 06-05 Slow IV ity of (BENADRYL) 20:30: 20:35 Push, [place] injection 00 :00 ONCE, 1 Medical 25 mg dose, On Branch Sun06/05/22 at 1430, Routine dexAMETHaso No [id number] 12mg 12 mg, [facility] ne 06-05 Oral, ity of (DECADRON) 20:30: 20:26 ONCE, 1 [place] tablet 12 00 :00 dose, On Medica l mg Sun06/05/22 Branch at 1430, Routine proCHLORper No [id number] 10mg 10 mg, [facility] azine 06-05 Oral, ity of (COMPAZINE) 20:23: 20:22 Q6HPRN, [place] tablet 10 21 :21 Starting Medica l mg on Sun06/05/22 at 1423, Until 06/06/22 at 1422, Routine, Nausea and Vomiting (N/V) heparin No [id number] 500U 500 Units, [facility] lock flush 06-05 IV Push, ity of (HEPARIN 20:23: 20:22 PRN, [place] LOCKFLUSH(P 21 :21 Starting Medi nicolas ORCINE)(PF) on Sun ) 100 06/05/22 at unit/mL 1423, injection Until Tue 500 Units 06/06/22 at 1422, Routine CARBOplatin 2022- No [id number] 243.4mg 243.4 mg [facility] (PARAPLATIN 05-29 (Target ity of ) 243.4 mg 20:00: 19:45 AUC = 2), [place] in D5W 250 00 :00 IV Medical mL infusion Infusion, [facility] ONCE, Administer over 30 Minutes, On Sun05/29/22 at 1400, For 1 dose
Ta xane derivative s should be given before [place] derivative s.
palonosetro 2022- No [id number] .25mg 0.25 mg, [facility] n (ALOXI) 05-29 Intravenou ity of injection 18:30: 18:35 s, ONCE, 1 [place] 0.25 mg 00 :00 dose, On Medical Mon [place] 05/29/22 at 1230, Routine
tribunal member approving Restricted medication : [facility] famotidine 2022- No [id number] 20mg 20 mg, [facility] (PEPCID 05-29 Slow IV ity of (PF)) 18:30: 18:36 Push, [place] injection 00 :00 ONCE, 1 Medical 20 mg dose, On Branch [facility] 05/29/22 at 1230, Routine diphenhydrA 2022- No [id number] 25mg 25 mg, [facility] MINE 05-29 Slow IV ity of (BENADRYL) 18:30: 18:40 Push, [place] injection 00 :00 ONCE, 1 Medical 25 mg dose, On Branch [facility] 05/29/22 at 1230, Routine dexAMETHaso 2022- No [id number] 12mg 12 mg, [facility] ne 05-29 Oral, ity of (DECADRON) 18:30: 18:34 ONCE, 1 [place] tablet 12 00 :00 dose, On Medica l mg [facility] 05/29/22 at 1230, Routine loperamide 0 Yes 2mg Take 1 Unive rs 2 mg 2-24 capsule by ity of capsule 00:00: mouth as [place] 00 needed for Medical Diarrhea. Branch loperamide 2022-0 Yes 2mg Take 1 Unive rs 2 mg 2-24 capsule by ity of capsule 00:00: mouth as [place] 00 needed for Medical Diarrhea. Branch loperamide 2022-0 Yes 2mg Take 1 Unive rs 2 mg 2-24 capsule by ity of capsule 00:00: mouth as [place] 00 needed for Medical Diarrhea. Branch loperamide 2022-0 Yes 2mg Take 1 Unive rs 2 mg 2-24 capsule by ity of capsule 00:00: mouth as [place] 00 needed for Medical Diarrhea. Branch loperamide 2022-0 Yes 2mg Take 1 Unive rs 2 mg 2-24 capsule by ity of capsule 00:00: mouth as [place] 00 needed for Medical Diarrhea. Branch loperamide 2023-0 Yes 2mg Take 1 Unive rs 2 mg 2-24 capsule by ity of capsule 00:00: mouth as [place] 00 needed for Medical Diarrhea. Branch loperamide 2023-0 Yes 2mg Take 1 Unive rs 2 mg 2-24 capsule by ity of capsule 00:00: mouth as [place] 00 needed for Medical Diarrhea. Branch loperamide 2023-0 Yes 2mg Take 1 Unive rs 2 mg 2-24 capsule by ity of capsule 00:00: mouth as [place] 00 needed for Medical Diarrhea. Branch loperamide 2023-0 Yes 2mg Take 1 Unive rs 2 mg 2-24 capsule by ity of capsule 00:00: mouth as [place] 00 needed for Medical Diarrhea. Branch loperamide 2023-0 Yes 2mg Take 1 Unive rs 2 mg 2-24 capsule by ity of capsule 00:00: mouth as [place] 00 needed for Medical Diarrhea. Branch loperamide 2023-0 Yes 2mg Take 1 Unive rs 2 mg 2-24 capsule by ity of capsule 00:00: mouth as [place] 00 needed for Medical Diarrhea. Branch loperamide 2023-0 Yes 2mg Take 1 Unive rs 2 mg 2-24 capsule by ity of capsule 00:00: mouth as [place] 00 needed for Medical Diarrhea. Branch loperamide 2023-0 Yes 2mg Take 1 Unive rs 2 mg 2-24 capsule by ity of capsule 00:00: mouth as [place] 00 needed for Medical Diarrhea. Branch loperamide 2023-0 Yes 2mg Take 1 Unive rs 2 mg 2-24 capsule by ity of capsule 00:00: mouth as [place] 00 needed for Medical Diarrhea. Branch loperamide 2023-0 Yes 2mg Take 1 Unive rs 2 mg 2-24 capsule by ity of capsule 00:00: mouth as [place] 00 needed for Medical Diarrhea. Branch loperamide 2023-0 Yes 2mg Take 1 Unive rs 2 mg 2-24 capsule by ity of capsule 00:00: mouth as [place] 00 needed for Medical Diarrhea. Branch loperamide 2023-0 Yes 2mg Take 1 Unive rs 2 mg 2-24 capsule by ity of capsule 00:00: mouth as [place] 00 needed for Medical Diarrhea. Branch loperamide 2023-0 Yes 2mg Take 1 Unive rs 2 mg 2-24 capsule by ity of capsule 00:00: mouth as [place] 00 needed for Medical Diarrhea. Branch loperamide 2023-0 Yes 2mg Take 1 Unive rs 2 mg 2-24 capsule by ity of capsule 00:00: mouth as [place] 00 needed for Medical Diarrhea. Branch loperamide 2023-0 Yes 2mg Take 1 Unive rs 2 mg 2-24 capsule by ity of capsule 00:00: mouth as [place] 00 needed for Medical Diarrhea. Branch loperamide 2023-0 Yes 2mg Take 1 Unive rs 2 mg 2-24 capsule by ity of capsule 00:00: mouth as [place] 00 needed for Medical Diarrhea. Branch loperamide 2023-0 Yes 2mg Take 1 Unive rs 2 mg 2-24 capsule by ity of capsule 00:00: mouth as [place] 00 needed for Medical Diarrhea. Branch loperamide 2023-0 Yes 2mg Take 1 Unive rs 2 mg 2-24 capsule by ity of capsule 00:00: mouth as [place] 00 needed for Medical Diarrhea. Branch loperamide 2023-0 Yes 2mg Take 1 Unive rs 2 mg 2-24 capsule by ity of capsule 00:00: mouth as [place] 00 needed for Medical Diarrhea. Branch loperamide 2023-0 Yes 2mg Take 1 Unive rs 2 mg 2-24 capsule by ity of capsule 00:00: mouth as [place] 00 needed for Medical Diarrhea. Branch loperamide 2023-0 Yes 2mg Take 1 Unive rs 2 mg 2-24 capsule by ity of capsule 00:00: mouth as [place] 00 needed for Medical Diarrhea. Branch loperamide 2023-0 Yes 2mg Take 1 Unive rs 2 mg 2-24 capsule by ity of capsule 00:00: mouth as [place] 00 needed for Medical Diarrhea. Branch loperamide 2023-0 Yes 2mg Take 1 Unive rs 2 mg 2-24 capsule by ity of capsule 00:00: mouth as [place] 00 needed for Medical Diarrhea. Branch loperamide 2023-0 Yes 2mg Take 1 Unive rs 2 mg 2-24 capsule by ity of capsule 00:00: mouth as [place] 00 needed for Medical Diarrhea. Branch loperamide 2023-0 Yes 2mg Take 1 Unive rs 2 mg 2-24 capsule by ity of capsule 00:00: mouth as [place] 00 needed for Medical Diarrhea. Branch loperamide 2023-0 Yes 2mg Take 1 Unive rs 2 mg 2-24 capsule by ity of capsule 00:00: mouth as [place] 00 needed for Medical Diarrhea. Branch loperamide 2023-0 Yes 2mg Take 1 Unive rs 2 mg 2-24 capsule by ity of capsule 00:00: mouth as [place] 00 needed for Medical Diarrhea. Branch loperamide 2023-0 Yes 2mg Take 1 Unive rs 2 mg 2-24 capsule by ity of capsule 00:00: mouth as [place] 00 needed for Medical Diarrhea. Branch loperamide 2023-0 Yes 2mg Take 1 Unive rs 2 mg 2-24 capsule by ity of capsule 00:00: mouth as [place] 00 needed for Medical Diarrhea. Branch loperamide 2023-0 Yes 2mg Take 1 Unive rs 2 mg 2-24 capsule by ity of capsule 00:00: mouth as [place] 00 needed for Medical Diarrhea. Branch loperamide 2023-0 Yes 2mg Take 1 Unive rs 2 mg 2-24 capsule by ity of capsule 00:00: mouth as [place] 00 needed for Medical Diarrhea. Branch loperamide 2023-0 Yes 2mg Take 1 Unive rs 2 mg 2-24 capsule by ity of capsule 00:00: mouth as [place] 00 needed for Medical Diarrhea. Branch loperamide 2023-0 Yes 2mg Take 1 Unive rs 2 mg 2-24 capsule by ity of capsule 00:00: mouth as [place] 00 needed for Medical Diarrhea. Branch loperamide 2023-0 Yes 2mg Take 1 Unive rs 2 mg 2-24 capsule by ity of capsule 00:00: mouth as [place] 00 needed for Medical Diarrhea. Branch loperamide 2023-0 Yes 2mg Take 1 Unive rs 2 mg 2-24 capsule by ity of capsule 00:00: mouth as [place] 00 needed for Medical Diarrhea. Branch loperamide 2023-0 Yes 2mg Take 1 Unive rs 2 mg 2-24 capsule by ity of capsule 00:00: mouth as [place] 00 needed for Medical Diarrhea. Branch loperamide 2023-0 Yes 2mg Take 1 Unive rs 2 mg 2-24 capsule by ity of capsule 00:00: mouth as [place] 00 needed for Medical Diarrhea. Branch loperamide 2023-0 Yes 2mg Take 1 Unive rs 2 mg 2-24 capsule by ity of capsule 00:00: mouth as [place] 00 needed for Medical Diarrhea. Branch loperamide 2023-0 Yes 2mg Take 1 Unive rs 2 mg 2-24 capsule by ity of capsule 00:00: mouth as [place] 00 needed for Medical Diarrhea. Branch loperamide 2023-0 Yes 2mg Take 1 Unive rs 2 mg 2-24 capsule by ity of capsule 00:00: mouth as [place] 00 needed for Medical Diarrhea. Branch loperamide 2023-0 Yes 2mg Take 1 Unive rs 2 mg 2-24 capsule by ity of capsule 00:00: mouth as [place] 00 needed for Medical Diarrhea. Branch loperamide 2023-0 Yes 2mg Take 1 Unive rs 2 mg 2-24 capsule by ity of capsule 00:00: mouth as [place] 00 needed for Medical Diarrhea. Branch loperamide 2023-0 Yes 2mg Take 1 Unive rs 2 mg 2-24 capsule by ity of capsule 00:00: mouth as [place] 00 needed for Medical Diarrhea. Branch loperamide 2023-0 Yes 2mg Take 1 Unive rs 2 mg 2-24 capsule by ity of capsule 00:00: mouth as [place] 00 needed for Medical Diarrhea. Branch loperamide 2023-0 Yes 2mg Take 1 Unive rs 2 mg 2-24 capsule by ity of capsule 00:00: mouth as [place] 00 needed for Medical Diarrhea. Branch loperamide 2023-0 Yes 2mg Take 1 Unive rs 2 mg 2-24 capsule by ity of capsule 00:00: mouth as [place] 00 needed for Medical Diarrhea. Branch loperamide 2023-0 Yes 2mg Take 1 Unive rs 2 mg 2-24 capsule by ity of capsule 00:00: mouth as [place] 00 needed for Medical Diarrhea. Branch loperamide 2023-0 Yes 2mg Take 1 Unive rs 2 mg 2-24 capsule by ity of capsule 00:00: mouth as [place] 00 needed for Medical Diarrhea. Branch loperamide 2023-0 Yes 2mg Take 1 Unive rs 2 mg 2-24 capsule by ity of capsule 00:00: mouth as [place] 00 needed for Medical Diarrhea. Branch loperamide 2023-0 Yes 2mg Take 1 Unive rs 2 mg 2-24 capsule by ity of capsule 00:00: mouth as [place] 00 needed for Medical Diarrhea. Branch loperamide 2023-0 Yes 2mg Take 1 Unive rs 2 mg 2-24 capsule by ity of capsule 00:00: mouth as [place] 00 needed for Medical Diarrhea. Branch loperamide 2023-0 Yes 2mg Take 1 Unive rs 2 mg 2-24 capsule by ity of capsule 00:00: mouth as [place] 00 needed for Medical Diarrhea. Branch loperamide 2023-0 Yes 2mg Take 1 Unive rs 2 mg 2-24 capsule by ity of capsule 00:00: mouth as [place] 00 needed for Medical Diarrhea. Branch loperamide 2023-0 Yes 2mg Take 1 Unive rs 2 mg 2-24 capsule by ity of capsule 00:00: mouth as [place] 00 needed for Medical Diarrhea. Branch loperamide 2023-0 Yes 2mg Take 1 Unive rs 2 mg 2-24 capsule by ity of capsule 00:00: mouth as [place] 00 needed for Medical Diarrhea. Branch loperamide 2023-0 Yes 2mg Take 1 Unive rs 2 mg 2-24 capsule by ity of capsule 00:00: mouth as [place] 00 needed for Medical Diarrhea. Branch loperamide 2023-0 Yes 2mg Take 1 Unive rs 2 mg 2-24 capsule by ity of capsule 00:00: mouth as [place] 00 needed for Medical Diarrhea. Branch loperamide 2023-0 Yes 2mg Take 1 Unive rs 2 mg 2-24 capsule by ity of capsule 00:00: mouth as [place] 00 needed for Medical Diarrhea. Branch loperamide 2023-0 Yes 2mg Take 1 Unive rs 2 mg 2-24 capsule by ity of capsule 00:00: mouth as [place] 00 needed for Medical Diarrhea. Branch loperamide 2023-0 Yes 2mg Take 1 Unive rs 2 mg 2-24 capsule by ity of capsule 00:00: mouth as [place] 00 needed for Medical Diarrhea. Branch loperamide 2023-0 Yes 2mg Take 1 Unive rs 2 mg 2-24 capsule by ity of capsule 00:00: mouth as [place] 00 needed for Medical Diarrhea. Branch loperamide 2023-0 Yes 2mg Take 1 Unive rs 2 mg 2-24 capsule by ity of capsule 00:00: mouth as [place] 00 needed for Medical Diarrhea. Branch loperamide 2023-0 Yes 2mg Take 1 Unive rs 2 mg 2-24 capsule by ity of capsule 00:00: mouth as [place] 00 needed for Medical Diarrhea. Branch loperamide 2023-0 Yes 2mg Take 1 Unive rs 2 mg 2-24 capsule by ity of capsule 00:00: mouth as [place] 00 needed for Medical Diarrhea. Branch loperamide 2023-0 Yes 2mg Take 1 Unive rs 2 mg 2-24 capsule by ity of capsule 00:00: mouth as [place] 00 needed for Medical Diarrhea. Branch loperamide 2023-0 Yes 2mg Take 1 Unive rs 2 mg 2-24 capsule by ity of capsule 00:00: mouth as [place] 00 needed for Medical Diarrhea. Branch loperamide 2023-0 Yes 2mg Take 1 Unive rs 2 mg 2-24 capsule by ity of capsule 00:00: mouth as [place] 00 needed for Medical Diarrhea. Branch loperamide 2023-0 Yes 2mg Take 1 Unive rs 2 mg 2-24 capsule by ity of capsule 00:00: mouth as [place] 00 needed for Medical Diarrhea. Branch loperamide 2023-0 Yes 2mg Take 1 Unive rs 2 mg 2-24 capsule by ity of capsule 00:00: mouth as [place] 00 needed for Medical Diarrhea. Branch loperamide 2023-0 Yes 2mg Take 1 Unive rs 2 mg 2-24 capsule by ity of capsule 00:00: mouth as [place] 00 needed for Medical Diarrhea. Branch loperamide 2023-0 Yes 2mg Take 1 Unive rs 2 mg 2-24 capsule by ity of capsule 00:00: mouth as [place] 00 needed for Medical Diarrhea. Branch loperamide 2023-0 Yes 2mg Take 1 Unive rs 2 mg 2-24 capsule by ity of capsule 00:00: mouth as [place] 00 needed for Medical Diarrhea. Branch loperamide 2023-0 Yes 2mg Take 1 Unive rs 2 mg 2-24 capsule by ity of capsule 00:00: mouth as [place] 00 needed for Medical Diarrhea. Branch loperamide 2023-0 Yes 2mg Take 1 Unive rs 2 mg 2-24 capsule by ity of capsule 00:00: mouth as [place] 00 needed for Medical Diarrhea. Branch loperamide 2023-0 Yes 2mg Take 1 Unive rs 2 mg 2-24 capsule by ity of capsule 00:00: mouth as [place] 00 needed for Medical Diarrhea. Branch loperamide 2023-0 Yes 2mg Take 1 Unive rs 2 mg 2-24 capsule by ity of capsule 00:00: mouth as [place] 00 needed for Medical Diarrhea. Branch loperamide 2023-0 Yes 2mg Take 1 Unive rs 2 mg 2-24 capsule by ity of capsule 00:00: mouth as [place] 00 needed for Medical Diarrhea. Branch loperamide 2023-0 Yes 2mg Take 1 Unive rs 2 mg 2-24 capsule by ity of capsule 00:00: mouth as [place] 00 needed for Medical Diarrhea. Branch loperamide 2023-0 Yes 2mg Take 1 Unive rs 2 mg 2-24 capsule by ity of capsule 00:00: mouth as [place] 00 needed for Medical Diarrhea. Branch loperamide 2023-0 Yes 2mg Take 1 Unive rs 2 mg 2-24 capsule by ity of capsule 00:00: mouth as [place] 00 needed for Medical Diarrhea. Branch loperamide 2023-0 Yes 2mg Take 1 Unive rs 2 mg 2-24 capsule by ity of capsule 00:00: mouth as [place] 00 needed for Medical Diarrhea. Branch loperamide 2023-0 Yes 2mg Take 1 Unive rs 2 mg 2-24 capsule by ity of capsule 00:00: mouth as [place] 00 needed for Medical Diarrhea. Branch loperamide 2023-0 Yes 2mg Take 1 Unive rs 2 mg 2-24 capsule by ity of capsule 00:00: mouth as [place] 00 needed for Medical Diarrhea. Branch loperamide 2023-0 Yes 2mg Take 1 Unive rs 2 mg 2-24 capsule by ity of capsule 00:00: mouth as [place] 00 needed for Medical Diarrhea. Branch loperamide 2023-0 Yes 2mg Take 1 Unive rs 2 mg 2-24 capsule by ity of capsule 00:00: mouth as [place] 00 needed for Medical Diarrhea. Branch loperamide 2023-0 Yes 2mg Take 1 Unive rs 2 mg 2-24 capsule by ity of capsule 00:00: mouth as [place] 00 needed for Medical Diarrhea. Branch loperamide 2023-0 Yes 2mg Take 1 Unive rs 2 mg 2-24 capsule by ity of capsule 00:00: mouth as [place] 00 needed for Medical Diarrhea. Branch loperamide 2023-0 Yes 2mg Take 1 Unive rs 2 mg 2-24 capsule by ity of capsule 00:00: mouth as [place] 00 needed for Medical Diarrhea. Branch loperamide 2023-0 Yes 2mg Take 1 Unive rs 2 mg 2-24 capsule by ity of capsule 00:00: mouth as [place] 00 needed for Medical Diarrhea. Branch loperamide 2023-0 Yes 2mg Take 1 Unive rs 2 mg 2-24 capsule by ity of capsule 00:00: mouth as [place] 00 needed for Medical Diarrhea. Branch loperamide 2023-0 Yes 2mg Take 1 Unive rs 2 mg 2-24 capsule by ity of capsule 00:00: mouth as [place] 00 needed for Medical Diarrhea. Branch loperamide 2023-0 Yes 2mg Take 1 Unive rs 2 mg 2-24 capsule by ity of capsule 00:00: mouth as [place] 00 needed for Medical Diarrhea. Branch loperamide 2023-0 Yes 2mg Take 1 Unive rs 2 mg 2-24 capsule by ity of capsule 00:00: mouth as [place] 00 needed for Medical Diarrhea. Branch loperamide 2023-0 Yes 2mg Take 1 Unive rs 2 mg 2-24 capsule by ity of capsule 00:00: mouth as [place] 00 needed for Medical Diarrhea. Branch loperamide 2023-0 Yes 2mg Take 1 Unive rs 2 mg 2-24 capsule by ity of capsule 00:00: mouth as [place] 00 needed for Medical Diarrhea. Branch loperamide 2023-0 Yes 2mg Take 1 Unive rs 2 mg 2-24 capsule by ity of capsule 00:00: mouth as [place] 00 needed for Medical Diarrhea. Branch loperamide 2023-0 Yes 2mg Take 1 Unive rs 2 mg 2-24 capsule by ity of capsule 00:00: mouth as [place] 00 needed for Medical Diarrhea. Branch loperamide 2023-0 Yes 2mg Take 1 Unive rs 2 mg 2-24 capsule by ity of capsule 00:00: mouth as [place] 00 needed for Medical Diarrhea. Branch loperamide 2023-0 Yes 2mg Take 1 Unive rs 2 mg 2-24 capsule by ity of capsule 00:00: mouth as [place] 00 needed for Medical Diarrhea. Branch loperamide 2023-0 Yes 2mg Take 1 Unive rs 2 mg 2-24 capsule by ity of capsule 00:00: mouth as [place] 00 needed for Medical Diarrhea. Branch loperamide 2023-0 Yes 2mg Take 1 Unive rs 2 mg 2-24 capsule by ity of capsule 00:00: mouth as [place] 00 needed for Medical Diarrhea. Branch loperamide 2023-0 Yes 2mg Take 1 Unive rs 2 mg 2-24 capsule by ity of capsule 00:00: mouth as [place] 00 needed for Medical Diarrhea. Branch loperamide 2023-0 Yes 2mg Take 1 Unive rs 2 mg 2-24 capsule by ity of capsule 00:00: mouth as [place] 00 needed for Medical Diarrhea. Branch loperamide 2023-0 Yes 2mg Take 1 Unive rs 2 mg 2-24 capsule by ity of capsule 00:00: mouth as [place] 00 needed for Medical Diarrhea. Branch loperamide 2023-0 Yes 2mg Take 1 Unive rs 2 mg 2-24 capsule by ity of capsule 00:00: mouth as [place] 00 needed for Medical Diarrhea. Branch loperamide 2023-0 Yes 2mg Take 1 Unive rs 2 mg 2-24 capsule by ity of capsule 00:00: mouth as [place] 00 needed for Medical Diarrhea. Branch loperamide 2023-0 Yes 2mg Take 1 Unive rs 2 mg 2-24 capsule by ity of capsule 00:00: mouth as [place] 00 needed for Medical Diarrhea. Branch loperamide 2023-0 Yes 2mg Take 1 Unive rs 2 mg 2-24 capsule by ity of capsule 00:00: mouth as [place] 00 needed for Medical Diarrhea. Branch loperamide 2023-0 Yes 2mg Take 1 Unive rs 2 mg 2-24 capsule by ity of capsule 00:00: mouth as [place] 00 needed for Medical Diarrhea. Branch loperamide 2023-0 Yes 2mg Take 1 Unive rs 2 mg 2-24 capsule by ity of capsule 00:00: mouth as [place] 00 needed for Medical Diarrhea. Branch loperamide 2023-0 Yes 2mg Take 1 Unive rs 2 mg 2-24 capsule by ity of capsule 00:00: mouth as [place] 00 needed for Medical Diarrhea. Branch loperamide 2023-0 Yes 2mg Take 1 Unive rs 2 mg 2-24 capsule by ity of capsule 00:00: mouth as [place] 00 needed for Medical Diarrhea. Branch loperamide Yes 2mg Take 1 Unive rs 2 mg 2-24 capsule by ity of capsule 00:00: mouth as [place] 00 needed for Medical Diarrhea. Branch loperamide Yes 2mg Take 1 Unive rs 2 mg 2-24 capsule by ity of capsule 00:00: mouth as [place] 00 needed for Medical Diarrhea. Branch CARBOplatin 2022- No [id number] 243.4mg 243.4 mg [facility] (PARAPLATIN 05-22 (Target ity of ) 243.4 mg 20:15: 20:40 AUC = 2), [place] in D5W 250 00 :00 IV Medical mL infusion Infusion, Bra [facility] ONCE, Administer over 30 Minutes, On [facility] 05/22/22 at 1415, For 1 dose
Ta xane derivative s should be given before [place] derivative s.
CARBOplatin 2022- No [id number] 243.4mg 243.4 mg [facility] (PARAPLATIN -05-22 (Target ity of ) 243.4 mg 20:15: 20:40 AUC = 2), [place] in D5W 250 00 :00 IV Medical mL infusion Infusion, Bra [facility] ONCE, Administer over 30 Minutes, On [facility] 05/22/22 at 1415, For 1 dose
Ta xane derivative s should be given before [place] derivative s.
palonosetro 2022- No [id number] .25mg 0.25 mg, Univers n (ALOXI) 05-22 Intravenou ity of injection 18:45: 18:35 s, ONCE, 1 [place] 0.25 mg 00 :00 dose, On Medical Mon Branch 05/22/22 at 1245, Routine
tribunal member approving Restricted medication : [facility] famotidine 2022- No [id number] 20mg 20 mg, [facility] (PEPCID 05-22 Slow IV ity of (PF)) 18:45: 18:36 Push, [place] injection 00 :00 ONCE, 1 Medical 20 mg dose, On Branch 05/22/22 at 1245, Routine diphenhydrA 2022- No [id number] 25mg 25 mg, [facility] MINE 05-22 Slow IV ity of (BENADRYL) 18:45: 18:40 Push, [place] injection 00 :00 ONCE, 1 Medical 25 mg dose, On Branch 05/22/22 at 1245, Routine dexAMETHaso 2022- No [id number] 12mg 12 mg, Univers ne 05-22 Oral, ity of (DECADRON) 18:45: 18:35 ONCE, 1 [place] tablet 12 00 :00 dose, On Medica l mg Mon [place] 05/22/22 at 1245, Routine palonosetro 2022- No [id number] .25mg 0.25 mg, Univers n (ALOXI) 05-22 Intravenou ity of injection 18:45: 18:35 s, ONCE, 1 [place] 0.25 mg 00 :00 dose, On Medical Mon Branch 05/22/22 at 1245, Routine
tribunal member approving Restricted medication : [facility] famotidine 2022- No [id number] 20mg 20 mg, [facility] (PEPCID 05-22 Slow IV ity of (PF)) 18:45: 18:36 Push, [place] injection 00 :00 ONCE, 1 Medical 20 mg dose, On Branch [facility] 05/22/22 at 1245, Routine diphenhydrA 2022- No [id number] 25mg 25 mg, [facility] MINE 05-22 Slow IV ity of (BENADRYL) 18:45: 18:40 Push, [place] injection 00 :00 ONCE, 1 Medical 25 mg dose, On Branch [facility] 05/22/22 at 1245, Routine dexAMETHaso 2022- No [id number] 12mg 12 mg, Univers ne 05-22 Oral, ity of (DECADRON) 18:45: 18:35 ONCE, 1 [place] tablet 12 00 :00 dose, On Medica l mg [facility] 05/22/22 at 1245, Routine lidocaine 2 Yes [id number] 5mL Apply 5 mL [facility] % mucosal 2-10 102 to area(s) ity of jelly 00:00: every 6 [place] 00 (six) Medical hours. Branch (Thin layer only) lidocaine 2 2022-0 Yes [id number] 5mL Apply 5 mL [facility] mucosal 2-10 102 to area(s) ity of jelly 00:00: every 6 [place] 00 (six) Medical hours. Branch (Thin layer only) lidocaine 2 2022-0 Yes [id number] 5mL Apply 5 mL [facility] % mucosal 2-10 102 to area(s) ity of jelly 00:00: every 6 [place] 00 (six) Medical hours. Branch (Thin layer only) lidocaine 2 2022-0 Yes [id number] 5mL Apply 5 mL [facility] % mucosal 2-10 102 to area(s) ity of jelly 00:00: every 6 [place] 00 (six) Medical hours. Branch (Thin layer only) lidocaine 2 2022-0 Yes [id number] 5mL Apply 5 mL [facility] % mucosal 2-10 102 to area(s) ity of jelly 00:00: every 6 [place] 00 (six) Medical hours. Branch (Thin layer only) lidocaine 2 2022-0 Yes [id number] 5mL Apply 5 mL [facility] % mucosal 2-10 102 to area(s) ity of jelly 00:00: every 6 [place] 00 (six) Medical hours. Branch (Thin layer only) lidocaine 2 2022-0 Yes [id number] 5mL Apply 5 mL [facility] % mucosal 2-10 102 to area(s) ity of jelly 00:00: every 6 [place] 00 (six) Medical hours. Branch (Thin layer only) lidocaine 2 2022-0 Yes [id number] 5mL Apply 5 mL [facility] % mucosal 2-10 102 to area(s) ity of jelly 00:00: every 6 [place] 00 (six) Medical hours. Branch (Thin layer only) lidocaine 2 2022-0 Yes [id number] 5mL Apply 5 mL [facility] % mucosal 2-10 102 to area(s) ity of jelly 00:00: every 6 [place] 00 (six) Medical hours. Branch (Thin layer only) lidocaine 2 2022-0 Yes [id number] 5mL Apply 5 mL [facility] % mucosal 2-10 102 to area(s) ity of jelly 00:00: every 6 [place] 00 (six) Medical hours. Branch (Thin layer only) lidocaine 2 2022-0 Yes [id number] 5mL Apply 5 mL [facility] % mucosal 2-10 102 to area(s) ity of jelly 00:00: every 6 [place] 00 (six) Medical hours. Branch (Thin layer only) lidocaine 2 2022-0 Yes [id number] 5mL Apply 5 mL [facility] % mucosal 2-10 102 to area(s) ity of jelly 00:00: every 6 [place] 00 (six) Medical hours. Branch (Thin layer only) lidocaine 2 2022-0 Yes [id number] 5mL Apply 5 mL [facility] % mucosal 2-10 102 to area(s) ity of jelly 00:00: every 6 [place] 00 (six) Medical hours. Branch (Thin layer only) lidocaine 2 2022-0 Yes [id number] 5mL Apply 5 mL [facility] % mucosal 2-10 102 to area(s) ity of jelly 00:00: every 6 [place] 00 (six) Medical hours. Branch (Thin layer only) lidocaine 2 2022-0 Yes [id number] 5mL Apply 5 mL [facility] % mucosal 2-10 102 to area(s) ity of jelly 00:00: every 6 [place] 00 (six) Medical hours. Branch (Thin layer only) lidocaine 2 2022-0 Yes [id number] 5mL Apply 5 mL [facility] % mucosal 2-10 102 to area(s) ity of jelly 00:00: every 6 [place] 00 (six) Medical hours. Branch (Thin layer only) lidocaine 2 2022-0 Yes [id number] 5mL Apply 5 mL [facility] % mucosal 2-10 102 to area(s) ity of jelly 00:00: every 6 [place] 00 (six) Medical hours. Branch (Thin layer only) lidocaine 2 2022-0 Yes [id number] 5mL Apply 5 mL [facility] % mucosal 2-10 102 to area(s) ity of jelly 00:00: every 6 [place] 00 (six) Medical hours. Branch (Thin layer only) lidocaine 2 2022-0 Yes [id number] 5mL Apply 5 mL [facility] % mucosal 2-10 102 to area(s) ity of jelly 00:00: every 6 [place] 00 (six) Medical hours. Branch (Thin layer only) lidocaine 2 2022-0 Yes [id number] 5mL Apply 5 mL [facility] % mucosal 2-10 102 to area(s) ity of jelly 00:00: every 6 [place] 00 (six) Medical hours. Branch (Thin layer only) lidocaine 2 2022-0 Yes [id number] 5mL Apply 5 mL [facility] % mucosal 2-10 102 to area(s) ity of jelly 00:00: every 6 [place] 00 (six) Medical hours. Branch (Thin layer only) lidocaine 2 2022-0 Yes [id number] 5mL Apply 5 mL [facility] % mucosal 2-10 102 to area(s) ity of jelly 00:00: every 6 [place] 00 (six) Medical hours. Branch (Thin layer only) lidocaine 2 2022-0 Yes [id number] 5mL Apply 5 mL [facility] % mucosal 2-10 102 to area(s) ity of jelly 00:00: every 6 [place] 00 (six) Medical hours. Branch (Thin layer only) lidocaine 2 2022-0 Yes [id number] 5mL Apply 5 mL [facility] % mucosal 2-10 102 to area(s) ity of jelly 00:00: every 6 [place] 00 (six) Medical hours. Branch (Thin layer only) lidocaine 2 2022-0 Yes [id number] 5mL Apply 5 mL [facility] % mucosal 2-10 102 to area(s) ity of jelly 00:00: every 6 [place] 00 (six) Medical hours. Branch (Thin layer only) lidocaine 2 2022-0 Yes [id number] 5mL Apply 5 mL [facility] % mucosal 2-10 102 to area(s) ity of jelly 00:00: every 6 [place] 00 (six) Medical hours. Branch (Thin layer only) lidocaine 2 2022-0 Yes [id number] 5mL Apply 5 mL [facility] % mucosal 2-10 102 to area(s) ity of jelly 00:00: every 6 [place] 00 (six) Medical hours. Branch (Thin layer only) lidocaine 2 3-0 Yes [id number] 5mL Apply 5 mL [facility] % mucosal 2-10 102 to area(s) ity of jelly 00:00: every 6 [place] 00 (six) Medical hours. Branch (Thin layer only) lidocaine 2 3-0 Yes [id number] 5mL Apply 5 mL [facility] % mucosal 2-10 102 to area(s) ity of jelly 00:00: every 6 [place] 00 (six) Medical hours. Branch (Thin layer only) lidocaine 2 3-0 Yes [id number] 5mL Apply 5 mL [facility] % mucosal 2-10 102 to area(s) ity of jelly 00:00: every 6 [place] 00 (six) Medical hours. Branch (Thin layer only) lidocaine 2 3-0 Yes [id number] 5mL Apply 5 mL [facility] % mucosal 2-10 102 to area(s) ity of jelly 00:00: every 6 [place] 00 (six) Medical hours. Branch (Thin layer only) lidocaine 2 3-0 Yes [id number] 5mL Apply 5 mL [facility] % mucosal 2-10 102 to area(s) ity of jelly 00:00: every 6 [place] 00 (six) Medical hours. Branch (Thin layer only) lidocaine 2 2022-0 Yes [id number] 5mL Apply 5 mL [facility] % mucosal 2-10 102 to area(s) ity of jelly 00:00: every 6 [place] 00 (six) Medical hours. Branch (Thin layer only) lidocaine 2 2022-0 Yes [id number] 5mL Apply 5 mL [facility] % mucosal 2-10 102 to area(s) ity of jelly 00:00: every 6 [place] 00 (six) Medical hours. Branch (Thin layer only) lidocaine 2 3-0 Yes [id number] 5mL Apply 5 mL [facility] % mucosal 2-10 102 to area(s) ity of jelly 00:00: every 6 [place] 00 (six) Medical hours. Branch (Thin layer only) lidocaine 2 3-0 Yes [id number] 5mL Apply 5 mL [facility] % mucosal 2-10 102 to area(s) ity of jelly 00:00: every 6 [place] 00 (six) Medical hours. Branch (Thin layer only) lidocaine 2 3-0 Yes [id number] 5mL Apply 5 mL [facility] % mucosal 2-10 102 to area(s) ity of jelly 00:00: every 6 [place] 00 (six) Medical hours. Branch (Thin layer only) lidocaine 2 2023-0 Yes [id number] 5mL Apply 5 mL [facility] % mucosal 2-10 102 to area(s) ity of jelly 00:00: every 6 [place] 00 (six) Medical hours. Branch (Thin layer only) lidocaine 2 2022-0 Yes [id number] 5mL Apply 5 mL [facility] % mucosal 2-10 102 to area(s) ity of jelly 00:00: every 6 [place] 00 (six) Medical hours. Branch (Thin layer only) lidocaine 2 2022-0 Yes [id number] 5mL Apply 5 mL [facility] % mucosal 2-10 102 to area(s) ity of jelly 00:00: every 6 [place] 00 (six) Medical hours. Branch (Thin layer only) lidocaine 2 2022-0 Yes [id number] 5mL Apply 5 mL [facility] % mucosal 2-10 102 to area(s) ity of jelly 00:00: every 6 [place] 00 (six) Medical hours. Branch (Thin layer only) lidocaine 2 2022-0 Yes [id number] 5mL Apply 5 mL [facility] % mucosal 2-10 102 to area(s) ity of jelly 00:00: every 6 [place] 00 (six) Medical hours. Branch (Thin layer only) lidocaine 2 2022-0 Yes [id number] 5mL Apply 5 mL [facility] % mucosal 2-10 102 to area(s) ity of jelly 00:00: every 6 [place] 00 (six) Medical hours. Branch (Thin layer only) lidocaine 2 2022-0 Yes [id number] 5mL Apply 5 mL [facility] % mucosal 2-10 102 to area(s) ity of jelly 00:00: every 6 [place] 00 (six) Medical hours. Branch (Thin layer only) lidocaine 2 2022-0 Yes [id number] 5mL Apply 5 mL [facility] % mucosal 2-10 102 to area(s) ity of jelly 00:00: every 6 [place] 00 (six) Medical hours. Branch (Thin layer only) lidocaine 2 2022-0 Yes [id number] 5mL Apply 5 mL [facility] % mucosal 2-10 102 to area(s) ity of jelly 00:00: every 6 [place] 00 (six) Medical hours. Branch (Thin layer only) lidocaine 2 2022-0 Yes [id number] 5mL Apply 5 mL [facility] % mucosal 2-10 102 to area(s) ity of jelly 00:00: every 6 [place] 00 (six) Medical hours. Branch (Thin layer only) lidocaine 2 2022-0 Yes [id number] 5mL Apply 5 mL [facility] % mucosal 2-10 102 to area(s) ity of jelly 00:00: every 6 [place] 00 (six) Medical hours. Branch (Thin layer only) lidocaine 2 2022-0 Yes [id number] 5mL Apply 5 mL [facility] % mucosal 2-10 102 to area(s) ity of jelly 00:00: every 6 [place] 00 (six) Medical hours. Branch (Thin layer only) lidocaine 2 2022-0 Yes [id number] 5mL Apply 5 mL [facility] % mucosal 2-10 102 to area(s) ity of jelly 00:00: every 6 [place] 00 (six) Medical hours. Branch (Thin layer only) lidocaine 2 2022-0 Yes [id number] 5mL Apply 5 mL [facility] % mucosal 2-10 102 to area(s) ity of jelly 00:00: every 6 [place] 00 (six) Medical hours. Branch (Thin layer only) lidocaine 2 2022-0 Yes [id number] 5mL Apply 5 mL [facility] % mucosal 2-10 102 to area(s) ity of jelly 00:00: every 6 [place] 00 (six) Medical hours. Branch (Thin layer only) lidocaine 2 2022-0 Yes [id number] 5mL Apply 5 mL [facility] % mucosal 2-10 102 to area(s) ity of jelly 00:00: every 6 [place] 00 (six) Medical hours. Branch (Thin layer only) lidocaine 2 2022-0 Yes [id number] 5mL Apply 5 mL [facility] % mucosal 2-10 102 to area(s) ity of jelly 00:00: every 6 [place] 00 (six) Medical hours. Branch (Thin layer only) lidocaine 2 2022-0 Yes [id number] 5mL Apply 5 mL [facility] % mucosal 2-10 102 to area(s) ity of jelly 00:00: every 6 [place] 00 (six) Medical hours. Branch (Thin layer only) lidocaine 2 2022-0 Yes [id number] 5mL Apply 5 mL [facility] % mucosal 2-10 102 to area(s) ity of jelly 00:00: every 6 [place] 00 (six) Medical hours. Branch (Thin layer only) lidocaine 2 2022-0 Yes [id number] 5mL Apply 5 mL [facility] % mucosal 2-10 102 to area(s) ity of jelly 00:00: every 6 [place] 00 (six) Medical hours. Branch (Thin layer only) lidocaine 2 2022-0 Yes [id number] 5mL Apply 5 mL [facility] % mucosal 2-10 102 to area(s) ity of jelly 00:00: every 6 [place] 00 (six) Medical hours. Branch (Thin layer only) lidocaine 2 3-0 Yes [id number] 5mL Apply 5 mL [facility] % mucosal 2-10 102 to area(s) ity of jelly 00:00: every 6 [place] 00 (six) Medical hours. Branch (Thin layer only) lidocaine 2 2022-0 Yes [id number] 5mL Apply 5 mL [facility] % mucosal 2-10 102 to area(s) ity of jelly 00:00: every 6 [place] 00 (six) Medical hours. Branch (Thin layer only) lidocaine 2 2022-0 Yes [id number] 5mL Apply 5 mL [facility] % mucosal 2-10 102 to area(s) ity of jelly 00:00: every 6 [place] 00 (six) Medical hours. Branch (Thin layer only) lidocaine 2 2022-0 Yes [id number] 5mL Apply 5 mL [facility] % mucosal 2-10 102 to area(s) ity of jelly 00:00: every 6 [place] 00 (six) Medical hours. Branch (Thin layer only) lidocaine 2 2022-0 Yes [id number] 5mL Apply 5 mL [facility] % mucosal 2-10 102 to area(s) ity of jelly 00:00: every 6 [place] 00 (six) Medical hours. Branch (Thin layer only) lidocaine 2 2022-0 Yes [id number] 5mL Apply 5 mL [facility] % mucosal 2-10 102 to area(s) ity of jelly 00:00: every 6 [place] 00 (six) Medical hours. Branch (Thin layer only) lidocaine 2 3-0 Yes [id number] 5mL Apply 5 mL [facility] % mucosal 2-10 102 to area(s) ity of jelly 00:00: every 6 [place] 00 (six) Medical hours. Branch (Thin layer only) lidocaine 2 3-0 Yes [id number] 5mL Apply 5 mL [facility] % mucosal 2-10 102 to area(s) ity of jelly 00:00: every 6 [place] 00 (six) Medical hours. Branch (Thin layer only) lidocaine 2 2022-0 Yes [id number] 5mL Apply 5 mL [facility] % mucosal 2-10 102 to area(s) ity of jelly 00:00: every 6 [place] 00 (six) Medical hours. Branch (Thin layer only) lidocaine 2 2022-0 Yes [id number] 5mL Apply 5 mL [facility] % mucosal 2-10 102 to area(s) ity of jelly 00:00: every 6 [place] 00 (six) Medical hours. Branch (Thin layer only) lidocaine 2 2022-0 Yes [id number] 5mL Apply 5 mL [facility] % mucosal 2-10 102 to area(s) ity of jelly 00:00: every 6 [place] 00 (six) Medical hours. Branch (Thin layer only) lidocaine 2 2022-0 Yes [id number] 5mL Apply 5 mL [facility] % mucosal 2-10 102 to area(s) ity of jelly 00:00: every 6 [place] 00 (six) Medical hours. Branch (Thin layer only) lidocaine 2 2022-0 Yes [id number] 5mL Apply 5 mL [facility] % mucosal 2-10 102 to area(s) ity of jelly 00:00: every 6 [place] 00 (six) Medical hours. Branch (Thin layer only) lidocaine 2 2022-0 Yes [id number] 5mL Apply 5 mL [facility] % mucosal 2-10 102 to area(s) ity of jelly 00:00: every 6 [place] 00 (six) Medical hours. Branch (Thin layer only) lidocaine 2 2022-0 Yes [id number] 5mL Apply 5 mL [facility] % mucosal 2-10 102 to area(s) ity of jelly 00:00: every 6 [place] 00 (six) Medical hours. Branch (Thin layer only) lidocaine 2 3-0 Yes [id number] 5mL Apply 5 mL [facility] % mucosal 2-10 102 to area(s) ity of jelly 00:00: every 6 [place] 00 (six) Medical hours. Branch (Thin layer only) lidocaine 2 2023-0 Yes [id number] 5mL Apply 5 mL [facility] % mucosal 2-10 102 to area(s) ity of jelly 00:00: every 6 [place] 00 (six) Medical hours. Branch (Thin layer only) lidocaine 2 2022-0 Yes [id number] 5mL Apply 5 mL [facility] % mucosal 2-10 102 to area(s) ity of jelly 00:00: every 6 [place] 00 (six) Medical hours. Branch (Thin layer only) lidocaine 2 2022-0 Yes [id number] 5mL Apply 5 mL [facility] % mucosal 2-10 102 to area(s) ity of jelly 00:00: every 6 [place] 00 (six) Medical hours. Branch (Thin layer only) lidocaine 2 2022-0 Yes [id number] 5mL Apply 5 mL [facility] % mucosal 2-10 102 to area(s) ity of jelly 00:00: every 6 [place] 00 (six) Medical hours. Branch (Thin layer only) lidocaine 2 2022-0 Yes [id number] 5mL Apply 5 mL [facility] % mucosal 2-10 102 to area(s) ity of jelly 00:00: every 6 [place] 00 (six) Medical hours. Branch (Thin layer only) lidocaine 2 2022-0 Yes [id number] 5mL Apply 5 mL [facility] % mucosal 2-10 102 to area(s) ity of jelly 00:00: every 6 [place] 00 (six) Medical hours. Branch (Thin layer only) lidocaine 2 2022-0 Yes [id number] 5mL Apply 5 mL [facility] % mucosal 2-10 102 to area(s) ity of jelly 00:00: every 6 [place] 00 (six) Medical hours. Branch (Thin layer only) lidocaine 2 2022-0 Yes [id number] 5mL Apply 5 mL [facility] % mucosal 2-10 102 to area(s) ity of jelly 00:00: every 6 [place] 00 (six) Medical hours. Branch (Thin layer only) lidocaine 2 2022-0 Yes [id number] 5mL Apply 5 mL [facility] % mucosal 2-10 102 to area(s) ity of jelly 00:00: every 6 [place] 00 (six) Medical hours. Branch (Thin layer only) lidocaine 2 2022-0 Yes [id number] 5mL Apply 5 mL [facility] % mucosal 2-10 102 to area(s) ity of jelly 00:00: every 6 [place] 00 (six) Medical hours. Branch (Thin layer only) lidocaine 2 2022-0 Yes [id number] 5mL Apply 5 mL [facility] % mucosal 2-10 102 to area(s) ity of jelly 00:00: every 6 [place] 00 (six) Medical hours. Branch (Thin layer only) lidocaine 2 2022-0 Yes [id number] 5mL Apply 5 mL [facility] % mucosal 2-10 102 to area(s) ity of jelly 00:00: every 6 [place] 00 (six) Medical hours. Branch (Thin layer only) lidocaine 2 2022-0 Yes [id number] 5mL Apply 5 mL [facility] % mucosal 2-10 102 to area(s) ity of jelly 00:00: every 6 [place] 00 (six) Medical hours. Branch (Thin layer only) lidocaine 2 2022-0 Yes [id number] 5mL Apply 5 mL [facility] % mucosal 2-10 102 to area(s) ity of jelly 00:00: every 6 [place] 00 (six) Medical hours. Branch (Thin layer only) lidocaine 2 2022-0 Yes [id number] 5mL Apply 5 mL [facility] % mucosal 2-10 102 to area(s) ity of jelly 00:00: every 6 [place] 00 (six) Medical hours. Branch (Thin layer only) lidocaine 2 2022-0 Yes [id number] 5mL Apply 5 mL [facility] % mucosal 2-10 102 to area(s) ity of jelly 00:00: every 6 [place] 00 (six) Medical hours. Branch (Thin layer only) lidocaine 2 2022-0 Yes [id number] 5mL Apply 5 mL [facility] % mucosal 2-10 102 to area(s) ity of jelly 00:00: every 6 [place] 00 (six) Medical hours. Branch (Thin layer only) lidocaine 2 2022-0 Yes [id number] 5mL Apply 5 mL [facility] % mucosal 2-10 102 to area(s) ity of jelly 00:00: every 6 [place] 00 (six) Medical hours. Branch (Thin layer only) lidocaine 2 2022-0 Yes [id number] 5mL Apply 5 mL [facility] % mucosal 2-10 102 to area(s) ity of jelly 00:00: every 6 [place] 00 (six) Medical hours. Branch (Thin layer only) lidocaine 2 2022-0 Yes [id number] 5mL Apply 5 mL [facility] % mucosal 2-10 102 to area(s) ity of jelly 00:00: every 6 [place] 00 (six) Medical hours. Branch (Thin layer only) lidocaine 2 2022-0 Yes [id number] 5mL Apply 5 mL [facility] % mucosal 2-10 102 to area(s) ity of jelly 00:00: every 6 [place] 00 (six) Medical hours. Branch (Thin layer only) lidocaine 2 2022-0 Yes [id number] 5mL Apply 5 mL [facility] % mucosal 2-10 102 to area(s) ity of jelly 00:00: every 6 [place] 00 (six) Medical hours. Branch (Thin layer only) lidocaine 2 2022-0 Yes [id number] 5mL Apply 5 mL [facility] % mucosal 2-10 102 to area(s) ity of jelly 00:00: every 6 [place] 00 (six) Medical hours. Branch (Thin layer only) lidocaine 2 2022-0 Yes [id number] 5mL Apply 5 mL [facility] % mucosal 2-10 102 to area(s) ity of jelly 00:00: every 6 [place] 00 (six) Medical hours. Branch (Thin layer only) lidocaine 2 2022-0 Yes [id number] 5mL Apply 5 mL [facility] % mucosal 2-10 102 to area(s) ity of jelly 00:00: every 6 [place] 00 (six) Medical hours. Branch (Thin layer only) lidocaine 2 2022-0 Yes [id number] 5mL Apply 5 mL [facility] % mucosal 2-10 102 to area(s) ity of jelly 00:00: every 6 [place] 00 (six) Medical hours. Branch (Thin layer only) lidocaine 2 2022-0 Yes [id number] 5mL Apply 5 mL [facility] % mucosal 2-10 102 to area(s) ity of jelly 00:00: every 6 [place] 00 (six) Medical hours. Branch (Thin layer only) lidocaine 2 3-0 Yes [id number] 5mL Apply 5 mL [facility] % mucosal 2-10 102 to area(s) ity of jelly 00:00: every 6 [place] 00 (six) Medical hours. Branch (Thin layer only) lidocaine 2 3-0 Yes [id number] 5mL Apply 5 mL [facility] % mucosal 2-10 102 to area(s) ity of jelly 00:00: every 6 [place] 00 (six) Medical hours. Branch (Thin layer only) lidocaine 2 2022-0 Yes [id number] 5mL Apply 5 mL [facility] % mucosal 2-10 102 to area(s) ity of jelly 00:00: every 6 [place] 00 (six) Medical hours. Branch (Thin layer only) lidocaine 2 2022-0 Yes [id number] 5mL Apply 5 mL [facility] % mucosal 2-10 102 to area(s) ity of jelly 00:00: every 6 [place] 00 (six) Medical hours. Branch (Thin layer only) lidocaine 2 2022-0 Yes [id number] 5mL Apply 5 mL [facility] % mucosal 2-10 102 to area(s) ity of jelly 00:00: every 6 [place] 00 (six) Medical hours. Branch (Thin layer only) lidocaine 2 2022-0 Yes [id number] 5mL Apply 5 mL [facility] % mucosal 2-10 102 to area(s) ity of jelly 00:00: every 6 [place] 00 (six) Medical hours. Branch (Thin layer only) lidocaine 2 2022-0 Yes [id number] 5mL Apply 5 mL [facility] % mucosal 2-10 102 to area(s) ity of jelly 00:00: every 6 [place] 00 (six) Medical hours. Branch (Thin layer only) lidocaine 2 2022-0 Yes [id number] 5mL Apply 5 mL [facility] % mucosal 2-10 102 to area(s) ity of jelly 00:00: every 6 [place] 00 (six) Medical hours. Branch (Thin layer only) lidocaine 2 2022-0 Yes [id number] 5mL Apply 5 mL [facility] % mucosal 2-10 102 to area(s) ity of jelly 00:00: every 6 [place] 00 (six) Medical hours. Branch (Thin layer only) lidocaine 2 2022-0 Yes [id number] 5mL Apply 5 mL [facility] % mucosal 2-10 102 to area(s) ity of jelly 00:00: every 6 [place] 00 (six) Medical hours. Branch (Thin layer only) lidocaine 2 2022-0 Yes [id number] 5mL Apply 5 mL [facility] % mucosal 2-10 102 to area(s) ity of jelly 00:00: every 6 [place] 00 (six) Medical hours. Branch (Thin layer only) lidocaine 2 2022-0 Yes [id number] 5mL Apply 5 mL [facility] % mucosal 2-10 102 to area(s) ity of jelly 00:00: every 6 [place] 00 (six) Medical hours. Branch (Thin layer only) lidocaine 2 2022-0 Yes [id number] 5mL Apply 5 mL [facility] % mucosal 2-10 102 to area(s) ity of jelly 00:00: every 6 [place] 00 (six) Medical hours. Branch (Thin layer only) lidocaine 2 2022-0 Yes [id number] 5mL Apply 5 mL [facility] % mucosal 2-10 102 to area(s) ity of jelly 00:00: every 6 [place] 00 (six) Medical hours. Branch (Thin layer only) lidocaine 2 2022-0 Yes [id number] 5mL Apply 5 mL [facility] % mucosal 2-10 102 to area(s) ity of jelly 00:00: every 6 [place] 00 (six) Medical hours. Branch (Thin layer only) lidocaine 2 2022-0 Yes [id number] 5mL Apply 5 mL [facility] % mucosal 2-10 102 to area(s) ity of jelly 00:00: every 6 [place] 00 (six) Medical hours. Branch (Thin layer only) lidocaine 2 2022-0 Yes [id number] 5mL Apply 5 mL [facility] % mucosal 2-10 102 to area(s) ity of jelly 00:00: every 6 [place] 00 (six) Medical hours. Branch (Thin layer only) lidocaine 2 2022-0 Yes [id number] 5mL Apply 5 mL [facility] % mucosal 2-10 102 to area(s) ity of jelly 00:00: every 6 [place] 00 (six) Medical hours. Branch (Thin layer only) lidocaine 2 2022-0 Yes [id number] 5mL Apply 5 mL [facility] % mucosal 2-10 102 to area(s) ity of jelly 00:00: every 6 [place] 00 (six) Medical hours. Branch (Thin layer only) lidocaine 2 2022-0 Yes [id number] 5mL Apply 5 mL [facility] % mucosal 2-10 102 to area(s) ity of jelly 00:00: every 6 [place] 00 (six) Medical hours. Branch (Thin layer only) lidocaine 2 2023-0 Yes [id number] 5mL Apply 5 mL [facility] % mucosal 2-10 102 to area(s) ity of jelly 00:00: every 6 [place] 00 (six) Medical hours. Branch (Thin layer only) lidocaine 2 2022-0 Yes [id number] 5mL Apply 5 mL [facility] % mucosal 2-10 102 to area(s) ity of jelly 00:00: every 6 [place] 00 (six) Medical hours. Branch (Thin layer only) lidocaine 2 2022-0 Yes [id number] 5mL Apply 5 mL [facility] % mucosal 2-10 102 to area(s) ity of jelly 00:00: every 6 [place] 00 (six) Medical hours. Branch (Thin layer only) lidocaine 2 2022-0 Yes [id number] 5mL Apply 5 mL [facility] % mucosal 2-10 102 to area(s) ity of jelly 00:00: every 6 [place] 00 (six) Medical hours. Branch (Thin layer only) lidocaine 2 2022-0 Yes [id number] 5mL Apply 5 mL [facility] % mucosal 2-10 102 to area(s) ity of jelly 00:00: every 6 [place] 00 (six) Medical hours. Branch (Thin layer only) lidocaine 2 2022-0 Yes [id number] 5mL Apply 5 mL [facility] % mucosal 2-10 102 to area(s) ity of jelly 00:00: every 6 [place] 00 (six) Medical hours. Branch (Thin layer only) lidocaine 2 2022-0 Yes [id number] 5mL Apply 5 mL [facility] % mucosal 2-10 102 to area(s) ity of jelly 00:00: every 6 [place] 00 (six) Medical hours. Branch (Thin layer only) lidocaine 2 2022-0 Yes [id number] 5mL Apply 5 mL [facility] % mucosal 2-10 102 to area(s) ity of jelly 00:00: every 6 [place] 00 (six) Medical hours. Branch (Thin layer only) lidocaine 2 2022-0 Yes [id number] 5mL Apply 5 mL [facility] % mucosal 2-10 102 to area(s) ity of jelly 00:00: every 6 [place] 00 (six) Medical hours. Branch (Thin layer only) lidocaine 2 2022-0 Yes [id number] 5mL Apply 5 mL [facility] % mucosal 2-10 102 to area(s) ity of jelly 00:00: every 6 [place] 00 (six) Medical hours. Branch (Thin layer only) lidocaine 2 2023-0 Yes [id number] 5mL Apply 5 mL [facility] % mucosal 2-10 102 to area(s) ity of jelly 00:00: every 6 [place] 00 (six) Medical hours. Branch (Thin layer only) lidocaine 2 2023-0 Yes [id number] 5mL Apply 5 mL [facility] % mucosal 2-10 102 to area(s) ity of jelly 00:00: every 6 [place] 00 (six) Medical hours. Branch (Thin layer only) lidocaine 2 3-0 Yes [id number] 5mL Apply 5 mL [facility] % mucosal 2-10 102 to area(s) ity of jelly 00:00: every 6 [place] 00 (six) Medical hours. Branch (Thin layer only) lidocaine 2 3-0 Yes [id number] 5mL Apply 5 mL [facility] % mucosal 2-10 102 to area(s) ity of jelly 00:00: every 6 [place] 00 (six) Medical hours. Branch (Thin layer only) lidocaine 2 3-0 Yes [id number] 5mL Apply 5 mL [facility] % mucosal 2-10 102 to area(s) ity of jelly 00:00: every 6 [place] 00 (six) Medical hours. Branch (Thin layer only) lidocaine 2 3-0 Yes [id number] 5mL Apply 5 mL [facility] % mucosal 2-10 102 to area(s) ity of jelly 00:00: every 6 [place] 00 (six) Medical hours. Branch (Thin layer only) sennosides 2022-0 Yes 8.6mg Take 1 [facility] (SENNA) 8.6 2-07 tablet by [facility] mg tablet 00:00: [place] 00 the [facility] morning. [facility] sennosides 2022-0 Yes 8.6mg Take 1 [facility] (SENNA) 8.6 2-07 tablet by [facility] mg tablet 00:00: [place] 00 the Medical morning. [facility] sennosides 2022-0 Yes 8.6mg Take 1 [facility] ers (SENNA) 8.6 2-07 tablet by [facility] mg tablet 00:00: [place] 00 the Medical morning. [facility] sennosides 2022-0 Yes 8.6mg Take 1 [facility] (SENNA) 8.6 2-07 tablet by [facility] mg tablet 00:00: [place] 00 the Medical morning. [facility] sennosides 2022-0 Yes 8.6mg Take 1 [facility] (SENNA) 8.6 2-07 tablet by [facility] mg tablet 00:00: [place] 00 the Medical morning. Branch sennosides 2022-0 Yes 8.6mg Take 1 [facility] ers (SENNA) 8.6 2-07 tablet by [facility] of mg tablet 00:00: [place] 00 the Medical morning. [facility] 2022-0 Yes 8.6mg Take 1 [facility] 8.6 2-07 tablet [facility]:[place] [facility] morning. [facility] 2022-0 Yes 8.6mg Take 1 [facility] ([facility]) 8.6 2-07 tablet [facility] the [facility] morning. [facility] 2022-0 Yes 8.6mg Take 1 [facility] ([facility]) 8.6 2-07 tablet [facility] the [facility] morning. [facility] 2022-0 Yes 8.6mg Take 1 [facility] ([facility]) 8.6 2-07 tablet [facility]: [place] the [facility] morning. [facility] 2022-0 Yes 8.6mg Take 1 [facility] ([facility]) 8.6 2-07 tablet [facility]: [place] the [facility] morning. [facility] 2022-0 Yes 8.6mg Take 1 [facility] ([facility]) 8.6 2-07 tablet [facility]: [place] the [facility] morning. [facility] 3-0 Yes 8.6mg Take 1 [facility] ([facility]) 8.6 2-07 tablet [facility] 00:[facility]: [place] the [facility] morning. [facility] 2022-0 Yes 8.6mg Take 1 [facility] ([facility]) 8.6 2-07 tablet [facility] tablet 00:[facility]: [place] the [facility] morning. [facility] 2022-0 Yes 8.6mg Take 1 [facility] ([facility]) 8.6 2-07 tablet [facility] tablet 00:[facility]: [place] the [facility] morning. [facility] 2022-0 Yes 8.6mg Take 1 [facility] ([facility]) 8.6 2-07 tablet [facility] tablet 00:[facility]: [place] the [facility] morning. [facility] 2022-0 Yes 8.6mg Take 1 [facility] ([facility]) 8.6 2-07 tablet [facility] tablet 00:[facility]: [place] the [facility] morning. [facility] 2022-0 Yes 8.6mg Take 1 [facility] ([facility]) 8.6 2-07 tablet [facility] tablet 00:[facility]: [place] the [facility] morning. [facility] 2022-0 Yes 8.6mg Take 1 [facility] ([facility]) 8.6 2-07 tablet [facility] tablet 00:[facility]: [place] the [facility] morning. [facility] 2022-0 Yes 8.6mg Take 1 [facility] ([facility]) 8.6 2-07 tablet [facility] tablet 00:00: [place] the [facility] morning. [facility] 2022-0 Yes 8.6mg Take 1 [facility] ([facility]) 8.6 2-07 tablet [facility] tablet 00:[facility]: [place] the [facility] morning. [facility] 2022-0 Yes 8.6mg Take 1 [facility] ([facility]) 8.6 2-07 tablet [facility] tablet 00:00: [place] the [facility] morning. [facility] 2022-0 Yes 8.6mg Take 1 [facility] ([facility]) 8.6 2-07 tablet [facility] tablet 00:00: [place] the [facility] morning. [facility] 2022-0 Yes 8.6mg Take 1 [facility] ([facility]) 8.6 2-07 tablet [facility] tablet 00:00: [place] 00 the [facility] morning. [facility] 2022-0 Yes 8.6mg Take 1 [facility] ([facility]) 8.6 2-07 tablet [facility] tablet 00:00: [place] 00 the [facility] morning. [facility] 2022-0 Yes 8.6mg Take 1 [facility] ([facility]) 8.6 2-07 tablet [facility] tablet 00:00: [place] 00 the [facility] morning. [facility] 2022-0 Yes 8.6mg Take 1 [facility] ([facility]) 8.6 2-07 tablet by [facility] tablet 00:00: [place] 00 the [facility] morning. [facility] 2022-0 Yes 8.6mg Take 1 [facility] ([facility]) 8.6 2-07 tablet [facility] tablet 00:00: [place] 00 the [facility] morning. [facility] 2022-0 Yes 8.6mg Take 1 [facility] ([facility]) 8.6 2-07 tablet by [facility] tablet 00:00: [place] 00 the [facility] morning. [facility] s[facility]ides 2022-0 Yes 8.6mg Take 1 [facility] ([facility]) 8.6 2-07 tablet by [facility] tablet 00:00: [place] 00 the [facility] morning. [facility] s[facility]ides 2022-0 Yes 8.6mg Take 1 [facility] ([facility]) 8.6 2-07 tablet by [facility] tablet 00:00: [place] 00 the [facility] morning. [facility] s[facility]ides 2022-0 Yes 8.6mg Take 1 [facility] ([facility]) 8.6 2-07 tablet by [facility] tablet 00:00: [place] 00 the [facility] morning. [facility] s[facility]osides 2022-0 Yes 8.6mg Take 1 [facility] ([facility]) 8.6 2-07 tablet [facility] tablet 00:00: [place] 00 the [facility] morning. [facility] s[facility]ides 2022-0 Yes 8.6mg Take 1 [facility] ([facility]) 8.6 2-07 tablet [facility] tablet 00:00: [place] 00 the [facility] morning. [facility] s[facility]ides 2022-0 Yes 8.6mg Take 1 [facility] ([facility]) 8.6 2-07 tablet [facility] tablet 00:00: [place] 00 the [facility] morning. [facility] s[facility]ides 2022-0 Yes 8.6mg Take 1 [facility] ([facility]) 8.6 2-07 tablet [facility] tablet 00:00: [place] 00 the [facility] morning. [facility] s[facility]ides 2022-0 Yes 8.6mg Take 1 [facility] ([facility]) 8.6 2-07 tablet by [facility] tablet 00:00: [place] 00 the [facility] morning. [facility] s[facility]ides 2022-0 Yes 8.6mg Take 1 [facility] ([facility]) 8.6 2-07 tablet by [facility] tablet 00:00: [place] 00 the [facility] morning. [facility] s[facility] 2022-0 Yes 8.6mg Take 1 [facility] ([facility]) 8.6 2-07 tablet by [facility] tablet 00:00: [place] 00 the [facility] morning. [facility] s[facility]ides 2022-0 Yes 8.6mg Take 1 [facility] ([facility]) 8.6 2-07 tablet by [facility] tablet 00:00: [place] 00 the [facility] morning. [facility] s[facility]ides 2022-0 Yes 8.6mg Take 1 [facility] ([facility]) 8.6 2-07 tablet by [facility] tablet 00:00: [place] 00 the [facility] morning. [facility] 3-0 Yes 8.6mg Take 1 [facility] ([facility]) 8.6 2-07 tablet by [facility] tablet 00:00: [place] 00 the [facility] morning. [facility] 3-0 Yes 8.6mg Take 1 [facility] ([facility]) 8.6 2-07 tablet by [facility] tablet 00:00: [place] 00 the [facility] morning. [facility] 3-0 Yes 8.6mg Take 1 [facility] ([facility]) 8.6 2-07 tablet by [facility] tablet 00:00: mouth [place] 00 the [facility] morning. [facility] s[facility] 3-0 Yes 8.6mg Take 1 [facility] ([facility]) 8.6 2-07 tablet by [facility] tablet 00:00: mouth [place] 00 the [facility] morning. [facility] s[facility] 3-0 Yes 8.6mg Take 1 [facility] ([facility]) 8.6 2-07 tablet by [facility] tablet 00:00: mouth [place] 00 the [facility] morning. [facility] s[facility] 3-0 Yes 8.6mg Take 1 [facility] ([facility]) 8.6 2-07 tablet by [facility] tablet 00:00: mouth [place] 00 the [facility] morning. [facility] s[facility] 3-0 Yes 8.6mg Take 1 [facility] ([facility]) 8.6 2-07 tablet by [facility] tablet 00:00: [place] 00 the [facility] morning. [facility] s[facility] 2022-0 Yes 8.6mg Take 1 [facility] ([facility]) 8.6 2-07 tablet by [facility] tablet 00:00: [place] 00 the [facility] morning. [facility] 2022-0 Yes 8.6mg Take 1 [facility] ([facility]) 8.6 2-07 tablet by [facility] tablet 00:00: [place] 00 the [facility] morning. [facility] 3-0 Yes 8.6mg Take 1 [facility] ([facility]) 8.6 2-07 tablet by [facility] tablet 00:00: [place] 00 the [facility] morning. [facility] 3-0 Yes 8.6mg Take 1 [facility] ([facility]) 8.6 2-07 tablet by [facility] tablet 00:00: [place] 00 the [facility] morning. [facility] 3-0 Yes 8.6mg Take 1 [facility] ([facility]) 8.6 2-07 tablet by [facility] tablet 00:00: [place] 00 the [facility] morning. [facility] 3-0 Yes 8.6mg Take 1 [facility] ([facility]) 8.6 2-07 tablet by [facility] tablet 00:00: [place] 00 the [facility] morning. [facility] 2022-0 Yes 8.6mg Take 1 [facility] ([facility]) 8.6 2-07 tablet [facility] tablet 00:00: [place] 00 the [facility] morning. [facility] 2022-0 Yes 8.6mg Take 1 [facility] ([facility]) 8.6 2-07 tablet [facility] tablet 00:00: [place] 00 the [facility] morning. [facility] 2022-0 Yes 8.6mg Take 1 [facility] ([facility]) 8.6 2-07 tablet [facility] tablet 00:00: [place] 00 the [facility] morning. [facility] 2022-0 Yes 8.6mg Take 1 [facility] ([facility]) 8.6 2-07 tablet [facility] tablet 00:00: [place] 00 the [facility] morning. [facility] 2022-0 Yes 8.6mg Take 1 [facility] ([facility]) 8.6 2-07 tablet by [facility] tablet 00:00: [place] 00 the [facility] morning. [facility] 2022-0 Yes 8.6mg Take 1 [facility] ([facility]) 8.6 2-07 tablet [facility] tablet 00:00: [place] 00 the [facility] morning. [facility] 2022-0 Yes 8.6mg Take 1 [facility] ([facility]) 8.6 2-07 tablet by [facility] tablet 00:00: [place] 00 the [facility] morning. [facility] 2022-0 Yes 8.6mg Take 1 [facility] ([facility]) 8.6 2-07 tablet by [facility] tablet 00:00: [place] 00 the [facility] morning. [facility] 2022-0 Yes 8.6mg Take 1 [facility] ([facility]) 8.6 2-07 tablet by [facility] tablet 00:00: [place] 00 the [facility] morning. [facility] 3-0 Yes 8.6mg Take 1 [facility] ([facility]) 8.6 2-07 tablet by [facility] tablet 00:00: [place] 00 the [facility] morning. [facility] 2022-0 Yes 8.6mg Take 1 [facility] ([facility]) 8.6 2-07 tablet by [facility] tablet 00:00: [place] 00 the [facility] morning. [facility] 2022-0 Yes 8.6mg Take 1 [facility] ([facility]) 8.6 2-07 tablet by [facility] tablet 00:00: [place] 00 the [facility] morning. [facility] 2022-0 Yes 8.6mg Take 1 [facility] ([facility]) 8.6 2-07 tablet by [facility] tablet 00:00: [place] 00 the [facility] morning. [facility] 2022-0 Yes 8.6mg Take 1 [facility] ([facility]) 8.6 2-07 tablet by [facility] tablet 00:00: mouth [place] 00 the [facility] morning. [facility] 2022-0 Yes 8.6mg Take 1 [facility] ([facility]) 8.6 2-07 tablet by [facility] tablet 00:00: mouth [place] 00 the [facility] morning. [facility] 2022-0 Yes 8.6mg Take 1 [facility] ([facility]) 8.6 2-07 tablet by [facility] tablet 00:00: mouth [place] 00 the [facility] morning. [facility] 2022-0 Yes 8.6mg Take 1 [facility] ([facility]) 8.6 2-07 tablet by [facility] tablet 00:00: mouth [place] 00 the [facility] morning. [facility] s[facility] 2022-0 Yes 8.6mg Take 1 [facility] ([facility]) 8.6 2-07 tablet by [facility] tablet 00:00: [place] 00 the [facility] morning. [facility] s[facility] 2022-0 Yes 8.6mg Take 1 [facility] ([facility]) 8.6 2-07 tablet by [facility] tablet 00:00: [place] 00 the Medical morning. [facility] s[facility] 2022-0 Yes 8.6mg Take 1 [facility] ([facility]) 8.6 2-07 tablet by [facility] tablet 00:00: [place] 00 the Medical morning. [facility] 2022-0 Yes 8.6mg Take 1 [facility] ([facility]) 8.6 2-07 tablet by [facility] tablet 00:00: [place] 00 the Medical morning. [facility] 2022-0 Yes 8.6mg Take 1 [facility] ([facility]) 8.6 2-07 tablet by [facility] tablet 00:00: mouth [place] 00 the Medical morning. [facility] s[facility] 2022-0 Yes 8.6mg Take 1 [facility] ([facility]) 8.6 2-07 tablet by [facility] tablet 00:00: mouth [place] 00 the Medical morning. [facility] s[facility] 2022-0 Yes 8.6mg Take 1 [facility] ([facility]) 8.6 2-07 tablet by [facility] tablet 00:00: [place] 00 the Medical morning. [facility] s[facility] 2022-0 Yes 8.6mg Take 1 [facility] ([facility]) 8.6 2-07 tablet by [facility] tablet 00:00: [place] 00 the Medical morning. [facility] s[facility] 2022-0 Yes 8.6mg Take 1 [facility] ([facility]) 8.6 2-07 tablet by [facility] tablet 00:00: [place] 00 the [facility] morning. [facility] s[facility] 2022-0 Yes 8.6mg Take 1 [facility] ([facility]) 8.6 2-07 tablet by [facility] tablet 00:00: [place] 00 the Medical morning. [facility] 2022-0 Yes 8.6mg Take 1 [facility] ([facility]) 8.6 2-07 tablet by [facility] tablet 00:00: [place] 00 the [facility] morning. [facility] 2022-0 Yes 8.6mg Take 1 [facility] ([facility]) 8.6 2-07 tablet by [facility] tablet 00:00: [place] 00 the [facility] morning. [facility] 2022-0 Yes 8.6mg Take 1 [facility] ([facility]) 8.6 2-07 tablet by [facility] tablet 00:00: [place] 00 the [facility] morning. [facility] 2022-0 Yes 8.6mg Take 1 [facility] ([facility]) 8.6 2-07 tablet by [facility] tablet 00:00: [place] 00 the [facility] morning. [facility] 2022-0 Yes 8.6mg Take 1 [facility] ([facility]) 8.6 2-07 tablet by [facility] tablet 00:00: [place] 00 the [facility] morning. [facility] s[facility] 2022-0 Yes 8.6mg Take 1 [facility] ([facility]) 8.6 2-07 tablet by [facility] tablet 00:00: [place] 00 the [facility] morning. [facility] s[facility] 2022-0 Yes 8.6mg Take 1 [facility] ([facility]) 8.6 2-07 tablet by [facility] tablet 00:00: [place] 00 the [facility] morning. [facility] 2022-0 Yes 8.6mg Take 1 [facility] ([facility]) 8.6 2-07 tablet by [facility] tablet 00:00: [place] 00 the [facility] morning. [facility] 2022-0 Yes 8.6mg Take 1 [facility] ([facility]) 8.6 2-07 tablet by [facility] tablet 00:00: [place] 00 the [facility] morning. [facility] 2022-0 Yes 8.6mg Take 1 [facility] ([facility]) 8.6 2-07 tablet by [facility] tablet 00:00: [place] 00 the [facility] morning. [facility] 2022-0 Yes 8.6mg Take 1 [facility] ([facility]) 8.6 2-07 tablet by [facility] tablet 00:00: [place] 00 the [facility] morning. [facility] 2022-0 Yes 8.6mg Take 1 [facility] ([facility]) 8.6 2-07 tablet by [facility] tablet 00:00: mouth [place] 00 the [facility] morning. [facility] 3-0 Yes 8.6mg Take 1 [facility] ([facility]) 8.6 2-07 tablet by [facility] tablet 00:00: mouth [place] 00 the [facility] morning. [facility] 3-0 Yes 8.6mg Take 1 [facility] ([facility]) 8.6 2-07 tablet by [facility] tablet 00:00: [place] 00 the [facility] morning. [facility] 2022-0 Yes 8.6mg Take 1 [facility] ([facility]) 8.6 2-07 tablet by [facility] tablet 00:00: mouth [place] 00 the [facility] morning. [facility] 3-0 Yes 8.6mg Take 1 [facility] ([facility]) 8.6 2-07 tablet by [facility] tablet 00:00: mouth [place] 00 the [facility] morning. [facility] s[facility] 3-0 Yes 8.6mg Take 1 [facility] ([facility]) 8.6 2-07 tablet by [facility] tablet 00:00: [place] 00 the Medical morning. [facility] s[facility] 2022-0 Yes 8.6mg Take 1 [facility] ([facility]) 8.6 2-07 tablet by [facility] tablet 00:00: [place] 00 the [facility] morning. [facility] 2022-0 Yes 8.6mg Take 1 [facility] ([facility]) 8.6 2-07 tablet by [facility] tablet 00:00: [place] 00 the Medical morning. [facility] 2022-0 Yes 8.6mg Take 1 [facility] ([facility]) 8.6 2-07 tablet by [facility] tablet 00:00: [place] 00 the [facility] morning. [facility] s[facility] 2022-0 Yes 8.6mg Take 1 [facility] ([facility]) 8.6 2-07 tablet by [facility] tablet 00:00: [place] 00 the [facility] morning. [facility] 3-0 Yes 8.6mg Take 1 [facility] ([facility]) 8.6 2-07 tablet by [facility] tablet 00:00: [place] 00 the [facility] morning. [facility] 3-0 Yes 8.6mg Take 1 [facility] ([facility]) 8.6 2-07 tablet by [facility] tablet 00:00: [place] 00 the [facility] morning. [facility] 3-0 Yes 8.6mg Take 1 [facility] ([facility]) 8.6 2-07 tablet by [facility] tablet 00:00: [place] 00 the [facility] morning. [facility] 2022-0 Yes 8.6mg Take 1 [facility] ([facility]) 8.6 2-07 tablet by [facility] tablet 00:00: [place] 00 the [facility] morning. [facility] 2022-0 Yes 8.6mg Take 1 [facility] ([facility]) 8.6 2-07 tablet by [facility] tablet 00:00: [place] 00 the [facility] morning. [facility] s[facility] 2022-0 Yes 8.6mg Take 1 [facility] ([facility]) 8.6 2-07 tablet by [facility] tablet 00:00: [place] 00 the [facility] morning. [facility] s[facility]ides 2022-0 Yes 8.6mg Take 1 [facility] ([facility]) 8.6 2-07 tablet by [facility] tablet 00:00: [place] 00 the [facility] morning. [facility]ides 2022-0 Yes 8.6mg Take 1 [facility] ([facility]) 8.6 2-07 tablet by [facility] tablet 00:00: [place] 00 the Medical morning. [facility] 2022-0 Yes 8.6mg Take 1 [facility] ([facility]) 8.6 2-07 tablet by [facility] tablet 00:00: mouth [place] 00 the Medical morning. [facility] 2022-0 Yes 8.6mg Take 1 [facility] ([facility]) 8.6 2-07 tablet by [facility] tablet 00:00: mouth [place] 00 the Medical morning. [facility] 2022-0 Yes 8.6mg Take 1 [facility] ([facility]) 8.6 2-07 tablet by [facility] tablet 00:00: mouth [place] 00 the Medical morning. [facility] s[facility]ides 2022-0 Yes 8.6mg Take 1 [facility] ([facility]) 8.6 2-07 tablet by [facility] tablet 00:00: mouth [place] 00 the Medical morning. [facility] s[facility]ides 2022-0 Yes 8.6mg Take 1 [facility] ([facility]) 8.6 2-07 tablet by [facility] tablet 00:00: mouth [place] 00 the Medical morning. [facility] s[facility] 2022-0 Yes 8.6mg Take 1 [facility] ([facility]) 8.6 2-07 tablet by [facility] tablet 00:00: mouth [place] 00 the Medical morning. [facility] 2022-0 Yes 8.6mg Take 1 [facility] ([facility]) 8.6 2-07 tablet by [facility] tablet 00:00: [place] 00 the Medical morning. [facility] 2022-0 Yes 8.6mg Take 1 [facility] ([facility]) 8.6 2-07 tablet by [facility] tablet 00:00: mouth [place] 00 the Medical morning. [facility] 2022-0 Yes 8.6mg Take 1 [facility] ([facility]) 8.6 2-07 tablet by [facility] tablet 00:00: [place] 00 the Medical morning. [facility] s[facility]ides 2022-0 Yes 8.6mg Take 1 [facility] ([facility]) 8.6 2-07 tablet by [facility] tablet 00:00: [place] 00 the Medical morning. [facility] 2022-0 Yes 8.6mg Take 1 [facility] ([facility]) 8.6 2-07 tablet by [facility] tablet 00:00: [place] 00 the Medical morning. [facility] 2022-0 Yes 8.6mg Take 1 [facility] ([facility]) 8.6 2-07 tablet by [facility] tablet 00:00: mouth [place] 00 the Medical morning. [facility] s[facility] 2022-0 Yes 8.6mg Take 1 [facility] ([facility]) 8.6 2-07 tablet by [facility] tablet 00:00: mouth [place] 00 the Medical morning. [facility] s[facility]ides 2022-0 Yes 8.6mg Take 1 [facility] ([facility]) 8.6 2-07 tablet by [facility] tablet 00:00: [place] 00 the Medical morning. [facility] s[facility] 2022-0 Yes 8.6mg Take 1 [facility] ([facility]) 8.6 2-07 tablet by [facility] tablet 00:00: [place] 00 the Medical morning. [facility] 2022-0 Yes 8.6mg Take 1 [facility] ([facility]) 8.6 2-07 tablet by [facility] tablet 00:00: mouth [place] 00 the Medical morning. [facility] 2022-0 Yes 8.6mg Take 1 [facility] ([facility]) 8.6 2-07 tablet by [facility] tablet 00:00: [place] 00 the Medical morning. [facility] 2022-0 Yes 8.6mg Take 1 [facility] ([facility]) 8.6 2-07 tablet by [facility] tablet 00:00: mouth [place] 00 the Medical morning. [facility] 2022-0 Yes 8.6mg Take 1 [facility] ([facility]) 8.6 2-07 tablet by [facility] tablet 00:00: mouth [place] 00 the Medical morning. [facility] s[facility]ides 2022-0 Yes 8.6mg Take 1 [facility] ([facility]) 8.6 2-07 tablet by [facility] tablet 00:00: mouth [place] 00 the Medical morning. [facility] s[facility]osides 2022-0 Yes 8.6mg Take 1 [facility] ([facility]) 8.6 2-07 tablet by [facility] tablet 00:00: [place] 00 the Medical morning. [facility] s[facility]osides 2022-0 Yes 8.6mg Take 1 [facility] ([facility]) 8.6 2-07 tablet by [facility] mg tablet 00:00: [place] 00 the Medical morning. [facility] s[facility]ides 2022-0 Yes 8.6mg Take 1 [facility] ([facility]) 8.6 2-07 tablet by [facility] mg tablet 00:00: mouth [place] 00 the Medical morning. [facility] s[facility]ides 2022-0 Yes 8.6mg Take 1 [facility] ([facility]) 8.6 2-07 tablet by [facility] mg tablet 00:00: [place] 00 the Medical morning. [facility] s[facility]ides 2022-0 Yes 8.6mg Take 1 [facility] ([facility]) 8.6 2-07 tablet by [facility] mg tablet 00:00: [place] 00 the Medical morning. [facility] s[facility] 2022-0 Yes 8.6mg Take 1 [facility] ([facility]) 8.6 2-07 tablet by [facility] tablet 00:00: [place] 00 the Medical morning. [facility] s[facility]ides 2022-0 Yes 8.6mg Take 1 [facility] ([facility]) 8.6 2-07 tablet by [facility] tablet 00:00: [place] 00 the Medical morning. [facility] s[facility]ides 2022-0 Yes 8.6mg Take 1 [facility] ([facility]) 8.6 2-07 tablet by [facility] mg tablet 00:00: [place] 00 the Medical morning. [facility] s[facility]ides 2022-0 Yes 8.6mg Take 1 [facility] ([facility]) 8.6 2-07 tablet by [facility] mg tablet 00:00: [place] 00 the Medical morning. [facility] s[facility]ides 2022-0 Yes 8.6mg Take 1 [facility] ([facility]) 8.6 2-07 tablet by [facility] tablet 00:00: [place] 00 the Medical morning. [place] meloxicam 2022-0 2022- No 15mg Take 15 mg [facility] n[facility] 15 mg 2-05 02-05 by mouth ity of tablet 14:54: 00:00 daily. [place] 56 :00 [facility] meloxicam 2022-0 2022- No 15mg Take 15 mg [facility] nivers 15 mg 2-05 02-05 by mouth ity of tablet 14:54: 00:00 daily. [place] 56 :00 [facility] meloxicam 2022-0 2022- No 15mg Take 15 mg [facility] nivers 15 mg 2-05 02-05 by mouth ity of tablet 14:54: 00:00 daily. [place] 56 :00 [facility] meloxicam 2022-0 2023- No 15mg Take 15 mg [facility] nivers 15 mg 2-05 02-05 by mouth ity of tablet 14:54: 00:00 daily. [place] 56 :00 [facility] meloxicam 2022-0 3- No 15mg Take 15 mg [facility] nivers 15 mg 2-05 02-05 by mouth ity of tablet 14:54: 00:00 daily. [place] 56 :00 [facility] HYDROcodone Yes 5379 1{tbl} Take 1 [facility] -acetaminop 2-03 tablet by ity of hen 5-325 00:00: mouth [place] mg tablet 00 every 6 Medical (six) Branch hours as needed for Pain (scale 7-10). Indication s: acute pain, cancer pain HYDROcodone 2023-0 Yes 5379 1{tbl} Take 1 [facility] -acetaminop 2-03 tablet by ity of hen 5-325 00:00: mouth [place] mg tablet 00 every 6 Medical (six) Branch hours as needed for Pain (scale 7-10). Indication s: acute pain, cancer pain HYDROcodone 2023-0 Yes 5379 1{tbl} Take 1 [facility] -acetaminop 2-03 tablet by ity of hen 5-325 00:00: mouth [place] mg tablet 00 every 6 Medical (six) Branch hours as needed for Pain (scale 7-10). Indication s: acute pain, cancer pain HYDROcodone 2023-0 Yes 5379 1{tbl} Take 1 [facility] -acetaminop 2-03 tablet by [facility]y of hen 5-325 00:00: mouth [place] mg tablet 00 every 6 Medical (six) Branch hours as needed for Pain (scale 7-10). Indication s: acute pain, cancer pain HYDROcodone 2023-0 Yes 5379 1{tbl} Take 1 [facility] -acetaminop 2-03 tablet by ity of hen 5-325 00:00: mouth [place] mg tablet 00 every 6 Medical (six) Branch hours as needed for Pain (scale 7-10). Indication s: acute pain, cancer pain HYDROcodone 2023-0 Yes 5379 1{tbl} Take 1 [facility] -acetaminop 2-03 tablet by [facility] of hen 5-325 00:00: mouth [place] mg tablet 00 every 6 Medical (six) Branch hours as needed for Pain (scale 7-10). Indication s: acute pain, cancer pain HYDROcodone 2023-0 Yes 5379 1{tbl} Take 1 [facility] -acetaminop 2-03 tablet by [facility] of hen 5-325 00:00: mouth [place] mg tablet 00 every 6 Medical (six) Branch hours as needed for Pain (scale 7-10). Indication s: acute pain, cancer pain HYDROcodone 2023-0 Yes 5379 1{tbl} Take 1 [facility] -acetaminop 2-03 tablet by [facility] of hen 5-325 00:00: mouth [place] mg tablet 00 every 6 Medical (six) Branch hours as needed for Pain (scale 7-10). Indication s: acute pain, cancer pain HYDROcodone 2023-0 Yes 5379 1{tbl} Take 1 [facility] -acetaminop 2-03 tablet by ity of hen 5-325 00:00: mouth [place] mg tablet 00 every 6 Medical (six) Branch hours as needed for Pain (scale 7-10). Indication s: acute pain, cancer pain HYDROcodone 2023-0 Yes 5379 1{tbl} Take 1 [facility] -acetaminop 2-03 tablet by [facility]y of hen 5-325 00:00: mouth [place] mg tablet 00 every 6 Medical (six) Branch hours as needed for Pain (scale 7-10). Indication s: acute pain, cancer pain HYDROcodone 2023-0 Yes 5379 1{tbl} Take 1 [facility] -acetaminop 2-03 tablet by [facility] of hen 5-325 00:00: mouth [place] mg tablet 00 every 6 Medical (six) Branch hours as needed for Pain (scale 7-10). Indication s: acute pain, cancer pain HYDROcodone 2023-0 Yes 5379 1{tbl} Take 1 [facility] -acetaminop 2-03 tablet by ity of hen 5-325 00:00: mouth [place] mg tablet 00 every 6 Medical (six) Branch hours as needed for Pain (scale 7-10). Indication s: acute pain, cancer pain HYDROcodone 2023-0 Yes 5379 1{tbl} Take 1 [facility] e[facility] -acetaminop 2-03 tablet by ity of hen 5-325 00:00: mouth [place] mg tablet 00 every 6 Medical (six) Branch hours as needed for Pain (scale 7-10). Indication s: acute pain, cancer pain HYDROcodone 2023-0 Yes 5379 1{tbl} Take 1 [facility] -acetaminop 2-03 tablet by ity of hen 5-325 00:00: mouth [place] mg tablet 00 every 6 Medical (six) Branch hours as needed for Pain (scale 7-10). Indication s: acute pain, cancer pain HYDROcodone 2023-0 Yes 5379 1{tbl} Take 1 Un ean -acetaminop 2-03 tablet by [facility] 5-325 00:00: mouth [place] mg tablet 00 every 6 Medical (six) Branch hours as needed for Pain (scale 7-10). Indication s: acute pain, cancer pain HYDROcodone 2023-0 Yes 5379 1{tbl} Take 1 Un ean -acetaminop 2-03 tablet by [facility] 5-325 00:00: mouth [place] mg tablet 00 every 6 Medical (six) Branch hours as needed for Pain (scale 7-10). Indication s: acute pain, cancer pain HYDROcodone 3-0 Yes 5379 1{tbl} Take 1 Un ean -acetaminop 2-03 tablet by [facility] 5-325 00:00: mouth [place] mg tablet 00 every 6 Medical (six) Branch hours as needed for Pain (scale 7-10). Indication s: acute pain, cancer pain HYDROcodone 3-0 Yes 5379 1{tbl} Take 1 Un ean -acetaminop 2-03 tablet by [facility] 5-325 00:00: mouth [place] mg tablet 00 every 6 Medical (six) Branch hours as needed for Pain (scale 7-10). Indication s: acute pain, cancer pain HYDROcodone 3-0 Yes 5379 1{tbl} Take 1 Un ean -acetaminop 2-03 tablet by [facility] 5-325 00:00: mouth [place] mg tablet 00 every 6 [facility] ([facility] Branch hours as needed for Pain (scale 7-10). Indication s: acute pain, cancer pain HYDROcodone 3-0 Yes 5379 1{tbl} Take 1 [facility] -acetaminop 2-03 tablet [facility]325 00:00: mouth [place] mg tablet 00 every 6 [facility] (six) Branch hours as needed for Pain (scale 7-10). Indication s: acute pain, cancer pain HYDROcodone 3-0 Yes 5379 1{tbl} Take 1 [facility] -acetaminop 2-03 tablet by [facility] 5-325 00:00: mouth [place] mg tablet 00 every 6 [facility] (six) Branch hours as needed for Pain (scale 7-10). Indication s: acute pain, cancer pain HYDROcodone 3-0 Yes 5379 1{tbl} Take 1 [facility] -acetaminop 2-03 tablet [facility] 5-325 00:00: mouth [place] mg tablet 00 every 6 [facility] (six) Branch hours as needed for Pain (scale 7-10). Indication s: acute pain, cancer pain HYDROcodone 2023-0 Yes 5379 1{tbl} Take 1 [facility] -acetaminop 2-03 tablet [facility] 5-325 00:00: mouth [place] mg tablet 00 every 6 [facility] (six) Branch hours as needed for Pain (scale 7-10). Indication s: acute pain, cancer pain HYDROcodone 2023-0 Yes 5379 1{tbl} Take 1 [facility] -acetaminop 2-03 tablet [facility] 5-325 00:00: mouth [place] mg tablet 00 every 6 [facility] (six) Branch hours as needed for Pain (scale 7-10). Indication s: acute pain, cancer pain HYDROcodone 3-0 Yes 5379 1{tbl} Take 1 [facility] -acetaminop 2-03 tablet [facility] 5-325 00:00: mouth [place] mg tablet 00 every 6 [facility] (six) Branch hours as needed for Pain (scale 7-10). Indication s: acute pain, cancer pain HYDROcodone 3-0 Yes 5379 1{tbl} Take 1 [facility] -acetaminop 2-03 tablet [facility] 5-325 00:00: mouth [place] mg tablet 00 every 6 [facility] (six) Branch hours as needed for Pain (scale 7-10). Indication s: acute pain, cancer pain HYDROcodone 3-0 Yes 5379 1{tbl} Take 1 [facility] -acetaminop 2-03 tablet [facility] 5-325 00:00: mouth [place] mg tablet 00 every 6 [facility] (six) Branch hours as needed for Pain (scale 7-10). Indication s: acute pain, cancer pain HYDROcodone 2023-0 Yes 5379 1{tbl} Take 1 [facility] -acetaminop 2-03 tablet [facility] 5-325 00:00: mouth [place] mg tablet 00 every 6 [facility] (six) Branch hours as needed for Pain (scale 7-10). Indication s: acute pain, cancer pain HYDROcodone 2023-0 Yes 5379 1{tbl} Take 1 [facility] -acetaminop 2-03 tablet [facility] 5-325 00:00: mouth [place] mg tablet 00 every 6 [facility] (six) Branch hours as needed for Pain (scale 7-10). Indication s: acute pain, cancer pain HYDROcodone 2023-0 Yes 5379 1{tbl} Take 1 [facility] -acetaminop 2-03 tablet [facility] 5-325 00:00: mouth [place] mg tablet 00 every 6 [facility] (six) Branch hours as needed for Pain (scale 7-10). Indication s: acute pain, cancer pain HYDROcodone 2023-0 Yes 5379 1{tbl} Take 1 [facility] -acetaminop 2-03 tablet [facility] 5-325 00:00: mouth [place] mg tablet 00 every 6 [facility] (six) [facility] hours as needed for Pain (scale 7-10). Indication s: acute pain, cancer pain HYDROcodone 3-0 Yes 5379 1{tbl} Take 1 [facility] -acetaminop 2-03 tablet [facility] 5-325 00:00: mouth [place] mg tablet 00 every 6 [facility] (six) [facility] hours as needed for Pain (scale 7-10). Indication s: acute pain, cancer pain HYDROcodone 3-0 Yes 5379 1{tbl} Take 1 [facility] -acetaminop 2-03 tablet [facility] 5-325 00:00: mouth [place] mg tablet 00 every 6 [facility] (six) Branch hours as needed for Pain (scale 7-10). Indication s: acute pain, cancer pain HYDROcodone 3-0 Yes 5379 1{tbl} Take 1 [facility] -acetaminop 2-03 tablet [facility] 5-325 00:00: mouth [place] mg tablet 00 every 6 [facility] (six) Branch hours as needed for Pain (scale 7-10). Indication s: acute pain, cancer pain HYDROcodone 3-0 Yes 5379 1{tbl} Take 1 [facility] -acetaminop 2-03 tablet [facility] 5-325 00:00: mouth [place] mg tablet 00 every 6 [facility] (six) Branch hours as needed for Pain (scale 7-10). Indication s: acute pain, cancer pain HYDROcodone 2023-0 Yes 5379 1{tbl} Take 1 [facility] -acetaminop 2-03 tablet [facility] 5-325 00:00: mouth [place] mg tablet 00 every 6 [facility] (six) Branch hours as needed for Pain (scale 7-10). Indication s: acute pain, cancer pain HYDROcodone 2023-0 Yes 5379 1{tbl} Take 1 [facility] -acetaminop 2-03 tablet [facility] 5-325 00:00: mouth [place] mg tablet 00 every 6 [facility] (six) Branch hours as needed for Pain (scale 7-10). Indication s: acute pain, cancer pain HYDROcodone 2023-0 Yes 5379 1{tbl} Take 1 [facility] -acetaminop 2-03 tablet [facility] 5-325 00:00: mouth [place] mg tablet 00 every 6 [facility] (six) Branch hours as needed for Pain (scale 7-10). Indication s: acute pain, cancer pain HYDROcodone 2023-0 Yes 5379 1{tbl} Take 1 [facility] -acetaminop 2-03 tablet [facility] 5-325 00:00: mouth [place] mg tablet 00 every 6 [facility] (six) [facility] hours as needed for Pain (scale 7-10). Indication s: acute pain, cancer pain HYDROcodone 3-0 Yes 5379 1{tbl} Take 1 [facility] -acetaminop 2-03 tablet [facility] 5-325 00:00: mouth [place] mg tablet 00 every 6 [facility] (six) Branch hours as needed for Pain (scale 7-10). Indication s: acute pain, cancer pain HYDROcodone 3-0 Yes 5379 1{tbl} Take 1 [facility] -acetaminop 2-03 tablet [facility] 5-325 00:00: mouth [place] mg tablet 00 every 6 [facility] (six) Branch hours as needed for Pain (scale 7-10). Indication s: acute pain, cancer pain HYDROcodone 2023-0 Yes 5379 1{tbl} Take 1 [facility] -acetaminop 2-03 tablet [facility] 5-325 00:00: mouth [place] mg tablet 00 every 6 [facility] (six) Branch hours as needed for Pain (scale 7-10). Indication s: acute pain, cancer pain HYDROcodone 3-0 Yes 5379 1{tbl} Take 1 [facility] -acetaminop 2-03 tablet [facility] 5-325 00:00: mouth [place] mg tablet 00 every 6 [facility] (six) Branch hours as needed for Pain (scale 7-10). Indication s: acute pain, cancer pain HYDROcodone 2023-0 Yes 5379 1{tbl} Take 1 [facility] -acetaminop 2-03 tablet [facility] 5-325 00:00: mouth [place] mg tablet 00 every 6 [facility] (six) Branch hours as needed for Pain (scale 7-10). Indication s: acute pain, cancer pain HYDROcodone 2023-0 Yes 5379 1{tbl} Take 1 [facility] -acetaminop 2-03 tablet [facility] 5-325 00:00: mouth [place] mg tablet 00 every 6 [facility] (six) Branch hours as needed for Pain (scale 7-10). Indication s: acute pain, cancer pain HYDROcodone 2023-0 Yes 5379 1{tbl} Take 1 [facility] -acetaminop 2-03 tablet [facility] 5-325 00:00: mouth [place] mg tablet 00 every 6 [facility] (six) Branch hours as needed for Pain (scale 7-10). Indication s: acute pain, cancer pain HYDROcodone 3-0 Yes 5379 1{tbl} Take 1 [facility] -acetaminop 2-03 tablet [facility] 5-325 00:00: mouth [place] mg tablet 00 every 6 [facility] (six) Branch hours as needed for Pain (scale 7-10). Indication s: acute pain, cancer pain HYDROcodone 3-0 Yes 5379 1{tbl} Take 1 [facility] -acetaminop 2-03 tablet [facility] 5-325 00:00: mouth [place] mg tablet 00 every 6 [facility] (six) Branch hours as needed for Pain (scale 7-10). Indication s: acute pain, cancer pain HYDROcodone 2023-0 Yes 5379 1{tbl} Take 1 [facility] -acetaminop 2-03 tablet [facility] 5-325 00:00: mouth [place] mg tablet 00 every 6 [facility] (six) Branch hours as needed for Pain (scale 7-10). Indication s: acute pain, cancer pain HYDROcodone 2023-0 Yes 5379 1{tbl} Take 1 [facility] -acetaminop 2-03 tablet [facility] 5-325 00:00: mouth [place] mg tablet 00 every 6 [facility] (six) Branch hours as needed for Pain (scale 7-10). Indication s: acute pain, cancer pain HYDROcodone 2023-0 Yes 5379 1{tbl} Take 1 [facility] -acetaminop 2-03 tablet [facility] 5-325 00:00: mouth [place] mg tablet 00 every 6 [facility] (six) Branch hours as needed for Pain (scale 7-10). Indication s: acute pain, cancer pain HYDROcodone 2023-0 Yes 5379 1{tbl} Take 1 [facility] -acetaminop 2-03 tablet [facility] 5-325 00:00: mouth [place] mg tablet 00 every 6 [facility] (six) Branch hours as needed for Pain (scale 7-10). Indication s: acute pain, cancer pain HYDROcodone 3-0 Yes 5379 1{tbl} Take 1 [facility] -acetaminop 2-03 tablet [facility] 5-325 00:00: mouth [place] mg tablet 00 every 6 [facility] (six) Branch hours as needed for Pain (scale 7-10). Indication s: acute pain, cancer pain HYDROcodone 3-0 Yes 5379 1{tbl} Take 1 [facility] -acetaminop 2-03 tablet [facility] 5-325 00:00: mouth [place] mg tablet 00 every 6 [facility] (six) Branch hours as needed for Pain (scale 7-10). Indication s: acute pain, cancer pain HYDROcodone 3-0 Yes 5379 1{tbl} Take 1 [facility] -acetaminop 2-03 tablet [facility] 5-325 00:00: mouth [place] mg tablet 00 every 6 [facility] (six) Branch hours as needed for Pain (scale 7-10). Indication s: acute pain, cancer pain HYDROcodone 3-0 Yes 5379 1{tbl} Take 1 [facility] -acetaminop 2-03 tablet [facility] 5-325 00:00: mouth [place] mg tablet 00 every 6 [facility] (six) Branch hours as needed for Pain (scale 7-10). Indication s: acute pain, cancer pain HYDROcodone 3-0 Yes 5379 1{tbl} Take 1 [facility] -acetaminop 2-03 tablet [facility] 5-325 00:00: mouth [place] mg tablet 00 every 6 [facility] (six) Branch hours as needed for Pain (scale 7-10). Indication s: acute pain, cancer pain HYDROcodone 3-0 Yes 5379 1{tbl} Take 1 [facility] -acetaminop 2-03 tablet [facility] 5-325 00:00: mouth [place] mg tablet 00 every 6 [facility] (six) Branch hours as needed for Pain (scale 7-10). Indication s: acute pain, cancer pain HYDROcodone 3-0 Yes 5379 1{tbl} Take 1 [facility] -acetaminop 2-03 tablet [facility] 5-325 00:00: mouth [place] mg tablet 00 every 6 [facility] (six) Branch hours as needed for Pain (scale 7-10). Indication s: acute pain, cancer pain HYDROcodone 3-0 Yes 5379 1{tbl} Take 1 [facility] -acetaminop 2-03 tablet [facility] 5-325 00:00: mouth [place] mg tablet 00 every 6 [facility] (six) Branch hours as needed for Pain (scale 7-10). Indication s: acute pain, cancer pain HYDROcodone 2022-0 Yes 5379 1{tbl} Take 1 [facility] -acetaminop 2-03 tablet by [facility] 5-325 00:00: mouth [place] mg tablet 00 every 6 [facility] (six) Branch hours as needed for Pain (scale 7-10). Indication s: acute pain, cancer pain HYDROcodone 2022-0 Yes 5379 1{tbl} Take 1 [facility] -acetaminop 2-03 tablet [facility] 5-325 00:00: mouth [place] mg tablet 00 every 6 [facility] (six) Branch hours as needed for Pain (scale 7-10). Indication s: acute pain, cancer pain HYDROcodone 3-0 Yes 5379 1{tbl} Take 1 [facility] -acetaminop 2-03 tablet [facility] 5-325 00:00: mouth [place] mg tablet 00 every 6 [facility] (six) Branch hours as needed for Pain (scale 7-10). Indication s: acute pain, cancer pain HYDROcodone 3-0 Yes 5379 1{tbl} Take 1 [facility] -acetaminop 2-03 tablet [facility] 5-325 00:00: mouth [place] mg tablet 00 every 6 [facility] (six) Branch hours as needed for Pain (scale 7-10). Indication s: acute pain, cancer pain HYDROcodone 2023-0 Yes 5379 1{tbl} Take 1 [facility] -acetaminop 2-03 tablet by [facility] 5-325 00:00: mouth [place] mg tablet 00 every 6 [facility] (six) Branch hours as needed for Pain (scale 7-10). Indication s: acute pain, cancer pain HYDROcodone 3-0 Yes 5379 1{tbl} Take 1 [facility] -acetaminop 2-03 tablet by [facility] 5-325 00:00: mouth [place] mg tablet 00 every 6 [facility] (six) Branch hours as needed for Pain (scale 7-10). Indication s: acute pain, cancer pain HYDROcodone 3-0 Yes 5379 1{tbl} Take 1 [facility] -acetaminop 2-03 tablet by [facility] 5-325 00:00: mouth [place] mg tablet 00 every 6 [facility] (six) Branch hours as needed for Pain (scale 7-10). Indication s: acute pain, cancer pain HYDROcodone 3-0 Yes 5379 1{tbl} Take 1 [facility] -acetaminop 2-03 tablet by [facility] 5-325 00:00: mouth [place] mg tablet 00 every 6 [facility] (six) Branch hours as needed for Pain (scale 7-10). Indication s: acute pain, cancer pain HYDROcodone 3-0 Yes 5379 1{tbl} Take 1 [facility] -acetaminop 2-03 tablet [facility] 5-325 00:00: mouth [place] mg tablet 00 every 6 [facility] (six) Branch hours as needed for Pain (scale 7-10). Indication s: acute pain, cancer pain HYDROcodone 3-0 Yes 5379 1{tbl} Take 1 [facility] -acetaminop 2-03 tablet by [facility] 5-325 00:00: mouth [place] mg tablet 00 every 6 [facility] (six) Branch hours as needed for Pain (scale 7-10). Indication s: acute pain, cancer pain HYDROcodone 3-0 Yes 5379 1{tbl} Take 1 [facility] -acetaminop 2-03 tablet [facility] 5-325 00:00: mouth [place] mg tablet 00 every 6 [facility] (six) Branch hours as needed for Pain (scale 7-10). Indication s: acute pain, cancer pain HYDROcodone 3-0 Yes 5379 1{tbl} Take 1 [facility] -acetaminop 2-03 tablet [facility] 5-325 00:00: mouth [place] mg tablet 00 every 6 [facility] (six) Branch hours as needed for Pain (scale 7-10). Indication s: acute pain, cancer pain HYDROcodone 3-0 Yes 5379 1{tbl} Take 1 [facility] -acetaminop 2-03 tablet by [facility] 5-325 00:00: mouth [place] mg tablet 00 every 6 [facility] (six) Branch hours as needed for Pain (scale 7-10). Indication s: acute pain, cancer pain HYDROcodone 3-0 Yes 5379 1{tbl} Take 1 [facility] -acetaminop 2-03 tablet by [facility] 5-325 00:00: mouth [place] mg tablet 00 every 6 [facility] (six) Branch hours as needed for Pain (scale 7-10). Indication s: acute pain, cancer pain HYDROcodone 2022-0 Yes 5379 1{tbl} Take 1 [facility] -acetaminop 2-03 tablet by [facility] 5-325 00:00: mouth [place] mg tablet 00 every 6 [facility] (six) Branch hours as needed for Pain (scale 7-10). Indication s: acute pain, cancer pain HYDROcodone 3-0 Yes 5379 1{tbl} Take 1 [facility] -acetaminop 2-03 tablet [facility] 5-325 00:00: mouth [place] mg tablet 00 every 6 [facility] (six) Branch hours as needed for Pain (scale 7-10). Indication s: acute pain, cancer pain HYDROcodone 3-0 Yes 5379 1{tbl} Take 1 [facility] -acetaminop 2-03 tablet [facility] 5-325 00:00: mouth [place] mg tablet 00 every 6 [facility] (six) Branch hours as needed for Pain (scale 7-10). Indication s: acute pain, cancer pain HYDROcodone 3-0 Yes 5379 1{tbl} Take 1 [facility] -acetaminop 2-03 tablet by [facility] 5-325 00:00: mouth [place] mg tablet 00 every 6 [facility] (six) Branch hours as needed for Pain (scale 7-10). Indication s: acute pain, cancer pain HYDROcodone 2023-0 Yes 5379 1{tbl} Take 1 [facility] -acetaminop 2-03 tablet by [facility] 5-325 00:00: mouth [place] mg tablet 00 every 6 [facility] (six) Branch hours as needed for Pain (scale 7-10). Indication s: acute pain, cancer pain HYDROcodone 3-0 Yes 5379 1{tbl} Take 1 [facility] -acetaminop 2-03 tablet by [facility] 5-325 00:00: mouth [place] mg tablet 00 every 6 [facility] (six) Branch hours as needed for Pain (scale 7-10). Indication s: acute pain, cancer pain HYDROcodone 3-0 Yes 5379 1{tbl} Take 1 [facility] -acetaminop 2-03 tablet by [facility] 5-325 00:00: mouth [place] mg tablet 00 every 6 [facility] (six) Branch hours as needed for Pain (scale 7-10). Indication s: acute pain, cancer pain HYDROcodone 3-0 Yes 5379 1{tbl} Take 1 [facility] -acetaminop 2-03 tablet [facility] 5-325 00:00: mouth [place] mg tablet 00 every 6 [facility] (six) Branch hours as needed for Pain (scale 7-10). Indication s: acute pain, cancer pain HYDROcodone 3-0 Yes 5379 1{tbl} Take 1 [facility] -acetaminop 2-03 tablet by [facility] 5-325 00:00: mouth [place] mg tablet 00 every 6 [facility] (six) Branch hours as needed for Pain (scale 7-10). Indication s: acute pain, cancer pain HYDROcodone 2023-0 Yes 5379 1{tbl} Take 1 [facility] -acetaminop 2-03 tablet by [facility] 5-325 00:00: mouth [place] mg tablet 00 every 6 [facility] (six) Branch hours as needed for Pain (scale 7-10). Indication s: acute pain, cancer pain HYDROcodone 3-0 Yes 5379 1{tbl} Take 1 [facility] -acetaminop 2-03 tablet [facility] 5-325 00:00: mouth [place] mg tablet 00 every 6 [facility] (six) Branch hours as needed for Pain (scale 7-10). Indication s: acute pain, cancer pain HYDROcodone 3-0 Yes 5379 1{tbl} Take 1 [facility] -acetaminop 2-03 tablet [facility] 5-325 00:00: mouth [place] mg tablet 00 every 6 [facility] (six) Branch hours as needed for Pain (scale 7-10). Indication s: acute pain, cancer pain HYDROcodone 3-0 Yes 5379 1{tbl} Take 1 [facility] -acetaminop 2-03 tablet [facility] 5-325 00:00: mouth [place] mg tablet 00 every 6 [facility] (six) Branch hours as needed for Pain (scale 7-10). Indication s: acute pain, cancer pain HYDROcodone 3-0 Yes 5379 1{tbl} Take 1 [facility] -acetaminop 2-03 tablet by [facility] 5-325 00:00: mouth [place] mg tablet 00 every 6 [facility] (six) Branch hours as needed for Pain (scale 7-10). Indication s: acute pain, cancer pain HYDROcodone 3-0 Yes 5379 1{tbl} Take 1 [facility] -acetaminop 2-03 tablet by [facility] 5-325 00:00: mouth [place] mg tablet 00 every 6 [facility] (six) Branch hours as needed for Pain (scale 7-10). Indication s: acute pain, cancer pain HYDROcodone 3-0 Yes 5379 1{tbl} Take 1 [facility] -acetaminop 2-03 tablet [facility] 5-325 00:00: mouth [place] mg tablet 00 every 6 [facility] (six) Branch hours as needed for Pain (scale 7-10). Indication s: acute pain, cancer pain HYDROcodone 3-0 Yes 5379 1{tbl} Take 1 [facility] -acetaminop 2-03 tablet by [facility] 5-325 00:00: mouth [place] mg tablet 00 every 6 [facility] (six) Branch hours as needed for Pain (scale 7-10). Indication s: acute pain, cancer pain HYDROcodone 3-0 Yes 5379 1{tbl} Take 1 [facility] -acetaminop 2-03 tablet [facility] 5-325 00:00: mouth [place] mg tablet 00 every 6 [facility] (six) Branch hours as needed for Pain (scale 7-10). Indication s: acute pain, cancer pain HYDROcodone 3-0 Yes 5379 1{tbl} Take 1 [facility] -acetaminop 2-03 tablet by [facility] 5-325 00:00: mouth [place] mg tablet 00 every 6 [facility] (six) Branch hours as needed for Pain (scale 7-10). Indication s: acute pain, cancer pain HYDROcodone 2023-0 Yes 5379 1{tbl} Take 1 [facility] -acetaminop 2-03 tablet by [facility] 5-325 00:00: mouth [place] mg tablet 00 every 6 [facility] (six) Branch hours as needed for Pain (scale 7-10). Indication s: acute pain, cancer pain HYDROcodone 2023-0 Yes 5379 1{tbl} Take 1 [facility] -acetaminop 2-03 tablet by [facility] 5-325 00:00: mouth [place] mg tablet 00 every 6 [facility] (six) Branch hours as needed for Pain (scale 7-10). Indication s: acute pain, cancer pain HYDROcodone 3-0 Yes 5379 1{tbl} Take 1 [facility] -acetaminop 2-03 tablet by [facility] 5-325 00:00: mouth [place] mg tablet 00 every 6 [facility] (six) Branch hours as needed for Pain (scale 7-10). Indication s: acute pain, cancer pain HYDROcodone 3-0 Yes 5379 1{tbl} Take 1 [facility] -acetaminop 2-03 tablet by [facility] 5-325 00:00: mouth [place] mg tablet 00 every 6 [facility] (six) Branch hours as needed for Pain (scale 7-10). Indication s: acute pain, cancer pain HYDROcodone 2023-0 Yes 5379 1{tbl} Take 1 [facility] -acetaminop 2-03 tablet by [facility] 5-325 00:00: mouth [place] mg tablet 00 every 6 [facility] (six) Branch hours as needed for Pain (scale 7-10). Indication s: acute pain, cancer pain HYDROcodone 2023-0 Yes 5379 1{tbl} Take 1 [facility] -acetaminop 2-03 tablet by [facility] 5-325 00:00: mouth [place] mg tablet 00 every 6 [facility] (six) Branch hours as needed for Pain (scale 7-10). Indication s: acute pain, cancer pain HYDROcodone 2023-0 Yes 5379 1{tbl} Take 1 [facility] -acetaminop 2-03 tablet by [facility] 5-325 00:00: mouth [place] mg tablet 00 every 6 [facility] (six) Branch hours as needed for Pain (scale 7-10). Indication s: acute pain, cancer pain HYDROcodone 3-0 Yes 5379 1{tbl} Take 1 [facility] -acetaminop 2-03 tablet [facility] 5-325 00:00: mouth [place] mg tablet 00 every 6 [facility] (six) Branch hours as needed for Pain (scale 7-10). Indication s: acute pain, cancer pain HYDROcodone 3-0 Yes 5379 1{tbl} Take 1 [facility] -acetaminop 2-03 tablet [facility] 5-325 00:00: mouth [place] mg tablet 00 every 6 [facility] (six) Branch hours as needed for Pain (scale 7-10). Indication s: acute pain, cancer pain HYDROcodone 3-0 Yes 5379 1{tbl} Take 1 [facility] -acetaminop 2-03 tablet by [facility] 5-325 00:00: mouth [place] mg tablet 00 every 6 [facility] (six) Branch hours as needed for Pain (scale 7-10). Indication s: acute pain, cancer pain HYDROcodone 3-0 Yes 5379 1{tbl} Take 1 [facility] -acetaminop 2-03 tablet by [facility] 5-325 00:00: mouth [place] mg tablet 00 every 6 [facility] (six) Branch hours as needed for Pain (scale 7-10). Indication s: acute pain, cancer pain HYDROcodone 2023-0 Yes 5379 1{tbl} Take 1 [facility] -acetaminop 2-03 tablet by [facility] 5-325 00:00: mouth [place] mg tablet 00 every 6 [facility] (six) Branch hours as needed for Pain (scale 7-10). Indication s: acute pain, cancer pain HYDROcodone 3-0 Yes 5379 1{tbl} Take 1 [facility] -acetaminop 2-03 tablet by [facility] 5-325 00:00: mouth [place] mg tablet 00 every 6 [facility] (six) Branch hours as needed for Pain (scale 7-10). Indication s: acute pain, cancer pain HYDROcodone 2023-0 Yes 5379 1{tbl} Take 1 [facility] -acetaminop 2-03 tablet by [facility] 5-325 00:00: mouth [place] mg tablet 00 every 6 [facility] (six) Branch hours as needed for Pain (scale 7-10). Indication s: acute pain, cancer pain HYDROcodone 2023-0 Yes 5379 1{tbl} Take 1 [facility] -acetaminop 2-03 tablet by [facility] 5-325 00:00: mouth [place] mg tablet 00 every 6 [facility] (six) Branch hours as needed for Pain (scale 7-10). Indication s: acute pain, cancer pain HYDROcodone 3-0 Yes 5379 1{tbl} Take 1 [facility] -acetaminop 2-03 tablet by [facility] 5-325 00:00: mouth [place] mg tablet 00 every 6 [facility] (six) Branch hours as needed for Pain (scale 7-10). Indication s: acute pain, cancer pain HYDROcodone 3-0 Yes 5379 1{tbl} Take 1 [facility] -acetaminop 2-03 tablet by [facility] 5-325 00:00: mouth [place] mg tablet 00 every 6 [facility] (six) Branch hours as needed for Pain (scale 7-10). Indication s: acute pain, cancer pain HYDROcodone 3-0 Yes 5379 1{tbl} Take 1 [facility] -acetaminop 2-03 tablet by [facility] 5-325 00:00: mouth [place] mg tablet 00 every 6 [facility] (six) Branch hours as needed for Pain (scale 7-10). Indication s: acute pain, cancer pain HYDROcodone 3-0 Yes 5379 1{tbl} Take 1 [facility] -acetaminop 2-03 tablet by [facility] 5-325 00:00: mouth [place] mg tablet 00 every 6 [facility] (six) Branch hours as needed for Pain (scale 7-10). Indication s: acute pain, cancer pain HYDROcodone 2023-0 Yes 5379 1{tbl} Take 1 [facility] -acetaminop 2-03 tablet by [facility] 5-325 00:00: mouth [place] mg tablet 00 every 6 [facility] (six) Branch hours as needed for Pain (scale 7-10). Indication s: acute pain, cancer pain HYDROcodone 2023-0 Yes 5379 1{tbl} Take 1 [facility] -acetaminop 2-03 tablet by [facility] 5-325 00:00: mouth [place] mg tablet 00 every 6 [facility] (six) Branch hours as needed for Pain (scale 7-10). Indication s: acute pain, cancer pain HYDROcodone 2023-0 Yes 5379 1{tbl} Take 1 [facility] -acetaminop 2-03 tablet by [facility] 5-325 00:00: mouth [place] mg tablet 00 every 6 [facility] (six) Branch hours as needed for Pain (scale 7-10). Indication s: acute pain, cancer pain HYDROcodone 2023-0 Yes 5379 1{tbl} Take 1 [facility] -acetaminop 2-03 tablet by [facility] 5-325 00:00: mouth [place] mg tablet 00 every 6 [facility] (six) Branch hours as needed for Pain (scale 7-10). Indication s: acute pain, cancer pain HYDROcodone 2023-0 Yes 5379 1{tbl} Take 1 [facility] -acetaminop 2-03 tablet by [facility] 5-325 00:00: mouth [place] mg tablet 00 every 6 [facility] (six) Branch hours as needed for Pain (scale 7-10). Indication s: acute pain, cancer pain HYDROcodone 3-0 Yes 5379 1{tbl} Take 1 [facility] -acetaminop 2-03 tablet by [facility] 5-325 00:00: mouth [place] mg tablet 00 every 6 [facility] (six) Branch hours as needed for Pain (scale 7-10). Indication s: acute pain, cancer pain HYDROcodone 2023-0 Yes 5379 1{tbl} Take 1 [facility] -acetaminop 2-03 tablet by [facility] 5-325 00:00: mouth [place] mg tablet 00 every 6 [facility] (six) Branch hours as needed for Pain (scale 7-10). Indication s: acute pain, cancer pain HYDROcodone 2023-0 Yes 5379 1{tbl} Take 1 [facility] -acetaminop 2-03 tablet by [facility] 5-325 00:00: mouth [place] mg tablet 00 every 6 [facility] (six) Branch hours as needed for Pain (scale 7-10). Indication s: acute pain, cancer pain HYDROcodone 2023-0 Yes 5379 1{tbl} Take 1 [facility] -acetaminop 2-03 tablet by [facility] 5-325 00:00: mouth [place] mg tablet 00 every 6 [facility] (six) Branch hours as needed for Pain (scale 7-10). Indication s: acute pain, cancer pain HYDROcodone 3-0 Yes 5379 1{tbl} Take 1 [facility] -acetaminop 2-03 tablet by [facility] 5-325 00:00: mouth [place] mg tablet 00 every 6 [facility] (six) Branch hours as needed for Pain (scale 7-10). Indication s: acute pain, cancer pain HYDROcodone 3-0 Yes 5379 1{tbl} Take 1 [facility] -acetaminop 2-03 tablet by [facility] 5-325 00:00: mouth [place] mg tablet 00 every 6 [facility] (six) Branch hours as needed for Pain (scale 7-10). Indication s: acute pain, cancer pain HYDROcodone 3-0 Yes 5379 1{tbl} Take 1 [facility] -acetaminop 2-03 tablet by [facility] 5-325 00:00: mouth [place] mg tablet 00 every 6 [facility] (six) Branch hours as needed for Pain (scale 7-10). Indication s: acute pain, cancer pain HYDROcodone 3-0 Yes 5379 1{tbl} Take 1 [facility] -acetaminop 2-03 tablet by [facility] 5-325 00:00: mouth [place] mg tablet 00 every 6 [facility] (six) [facility] hours as needed for Pain (scale 7-10). Indication s: acute pain, cancer pain HYDROcodone 3-0 Yes 5379 1{tbl} Take 1 [facility] -acetaminop 2-03 tablet by [facility] 5-325 00:00: mouth [place] mg tablet 00 every 6 [facility] (six) [facility] hours as needed for Pain (scale 7-10). Indication s: acute pain, cancer pain HYDROcodone 2023-0 Yes 5379 1{tbl} Take 1 [facility] -acetaminop 2-03 tablet by [facility] 5-325 00:00: mouth [place] mg tablet 00 every 6 [facility] (six) [facility] hours as needed for Pain (scale 7-10). Indication s: acute pain, cancer pain HYDROcodone 2023-0 Yes 5379 1{tbl} Take 1 [facility] -acetaminop 2-03 tablet by [facility] 5-325 00:00: mouth [place] mg tablet 00 every 6 [facility] (six) [facility] hours as needed for Pain (scale 7-10). Indication s: acute pain, cancer pain HYDROcodone 2023-0 Yes 5379 1{tbl} Take 1 [facility] -acetaminop 2-03 tablet by [facility] 5-325 00:00: mouth [place] mg tablet 00 every 6 [facility] (six) [facility] hours as needed for Pain (scale 7-10). Indication s: acute pain, cancer pain HYDROcodone 3-0 Yes 5379 1{tbl} Take 1 [facility] -acetaminop 2-03 tablet by [facility] 5-325 00:00: mouth [place] mg tablet 00 every 6 [facility] (six) [facility] hours as needed for Pain (scale 7-10). Indication s: acute pain, cancer pain HYDROcodone 3-0 Yes 5379 1{tbl} Take 1 [facility] -acetaminop 2-03 tablet by [facility] 5-325 00:00: mouth [place] mg tablet 00 every 6 [facility] (six) [facility] hours as needed for Pain (scale 7-10). Indication s: acute pain, cancer pain HYDROcodone 3-0 Yes 5379 1{tbl} Take 1 [facility] -acetaminop 2-03 tablet by [facility] 5-325 00:00: mouth [place] mg tablet 00 every 6 [facility] (six) [facility] hours as needed for Pain (scale 7-10). Indication s: acute pain, cancer pain HYDROcodone 3-0 Yes 5379 1{tbl} Take 1 [facility] -acetaminop 2-03 tablet by [facility] 5-325 00:00: mouth [place] mg tablet 00 every 6 [facility] (six) [facility] hours as needed for Pain (scale 7-10). Indication s: acute pain, cancer pain HYDROcodone 2023-0 Yes 5379 1{tbl} Take 1 [facility] -acetaminop 2-03 tablet by [facility] 5-325 00:00: mouth [place] mg tablet 00 every 6 [facility] (six) [facility] hours as needed for Pain (scale 7-10). Indication s: acute pain, cancer pain HYDROcodone 2023-0 Yes 5379 1{tbl} Take 1 [facility] -acetaminop 2-03 tablet by [facility] 5-325 00:00: mouth [place] mg tablet 00 every 6 [facility] (six) [facility] hours as needed for Pain (scale 7-10). Indication s: acute pain, cancer pain HYDROcodone 2022-0 Yes 5379 1{tbl} Take 1 [facility] -acetaminop 2-03 tablet by [facility] 5-325 00:00: mouth [place] mg tablet 00 every 6 [facility] (six) [facility] hours as needed for Pain (scale 7-10). Indication s: acute pain, cancer pain HYDROcodone 2022-0 Yes 5379 1{tbl} Take 1 [facility] -acetaminop 2-03 tablet by [facility] 5-325 00:00: mouth [place] mg tablet 00 every 6 [facility] (six) [facility] hours as needed for Pain (scale 7-10). Indication s: acute pain, cancer pain HYDROcodone 2022-0 Yes 5379 1{tbl} Take 1 [facility] -acetaminop 2-03 tablet by [facility] 5-325 00:00: mouth [place] mg tablet 00 every 6 [facility] (six) [facility] hours as needed for Pain (scale 7-10). Indication s: acute pain, cancer pain HYDROcodone 2022-0 Yes 5379 1{tbl} Take 1 [facility] -acetaminop 2-03 tablet by [facility] 5-325 00:00: mouth [place] mg tablet 00 every 6 [facility] (six) [facility] hours as needed for Pain (scale 7-10). Indication s: acute pain, cancer pain HYDROcodone 2022-0 Yes 5379 1{tbl} Take 1 [facility] -acetaminop 2-03 tablet by [facility] 5-325 00:00: mouth [place] mg tablet 00 every 6 [facility] (six) Branch hours as needed for Pain (scale 7-10). Indication s: acute pain, cancer pain albuterol 2022-0 Yes 2{puff} Inhale 2 U nivers 90 2-02 Puffs. [facility]y of mcg/actuati 11:15: [place] on inhaler 46 [facility] albuterol Yes 2{puff} Inhale 2 U nivers 90 2-02 Puffs. [facility] of mcg/actuati 11:15: on inhaler 46 [facility] albuterol Yes 2{puff} Inhale 2 U nivers 90 2-02 Puffs. [facility]y of mcg/actuati 11:15: [place] on inhaler 46 [facility] albuterol 0 Yes 2{puff} Inhale 2 U nivers 90 2-02 Puffs. [facility]y of mcg/actuati 11:15: [place] on inhaler 46 [facility] albuterol 0 Yes 2{puff} Inhale 2 U nivers 90 2-02 Puffs. [facility]y of mcg/actuati 11:15: [place] on inhaler 46 [facility] albuterol 0 Yes 2{puff} Inhale 2 U nivers 90 2-02 Puffs. [facility]y of mcg/actuati 11:15: [place] on inhaler 46 [facility] albuterol 0 Yes 2{puff} Inhale 2 U nivers 90 2-02 Puffs. [facility]y of mcg/actuati 11:15: on inhaler 46 [facility] albuterol 0 Yes 2{puff} Inhale 2 U nivers 90 2-02 Puffs. [facility]y of mcg/actuati 11:15: [place] on inhaler 46 [facility] albuterol 0 Yes 2{puff} Inhale 2 U nivers 90 2-02 Puffs. [facility]y of mcg/actuati 11:15: on inhaler 46 [facility] albuterol 0 Yes 2{puff} Inhale 2 U nivers 90 2-02 Puffs. [facility]y of mcg/actuati 11:15: on inhaler 46 [facility] albuterol 0 Yes 2{puff} Inhale 2 U nivers 90 2-02 Puffs. [facility]y of mcg/actuati 11:15: [place] on inhaler 46 [facility] albuterol 0 Yes 2{puff} Inhale 2 U nivers 90 2-02 Puffs. [facility]y of mcg/actuati 11:15: [place] on inhaler 46 [facility] albuterol 0 Yes 2{puff} Inhale 2 U nivers 90 2-02 Puffs. [facility]y of mcg/actuati 11:15: on inhaler 46 [facility] albuterol 0 Yes 2{puff} Inhale 2 U nivers 90 2-02 Puffs. [facility]y of mcg/actuati 11:15: [place] on inhaler 46 [facility] albuterol Yes 2{puff} Inhale 2 U nivers 90 2-02 Puffs. [facility]y of mcg/actuati 11:15: [place] on inhaler 46 [facility] albuterol Yes 2{puff} Inhale 2 U nivers 90 2-02 Puffs. [facility]y of mcg/actuati 11:15: [place] on inhaler 46 [facility] albuterol Yes 2{puff} Inhale 2 U nivers 90 2-02 Puffs. [facility]y of mcg/actuati 11:15: [place] on inhaler 46 [facility] albuterol Yes 2{puff} Inhale 2 U nivers 90 2-02 Puffs. [facility]y of mcg/actuati 11:15: [place] on inhaler 46 [facility] albuterol Yes 2{puff} Inhale 2 U nivers 90 2-02 Puffs. [facility]y of mcg/actuati 11:15: [place] on inhaler 46 [facility] albuterol Yes 2{puff} Inhale 2 U nivers 90 2-02 Puffs. [facility]y of mcg/actuati 11:15: [place] on inhaler 46 [facility] albuterol 0 Yes 2{puff} Inhale 2 U nivers 90 2-02 Puffs. [facility]y of mcg/actuati 11:15: [place] on inhaler 46 [facility] albuterol Yes 2{puff} Inhale 2 U nivers 90 2-02 Puffs. [facility]y of mcg/actuati 11:15: [place] on inhaler 46 [facility] albuterol 0 Yes 2{puff} Inhale 2 U nivers 90 2-02 Puffs. [facility]y of mcg/actuati 11:15: [place] on inhaler 46 [facility] albuterol 0 Yes 2{puff} Inhale 2 U nivers 90 2-02 Puffs. [facility]y of mcg/actuati 11:15: [place] on inhaler 46 [facility] albuterol 0 Yes 2{puff} Inhale 2 U nivers 90 2-02 Puffs. [facility]y of mcg/actuati 11:15: [place] on inhaler 46 [facility] albuterol 2023-0 Yes 2{puff} Inhale 2 U nivers 90 2-02 Puffs. [facility] of mcg/actuati 11:15: [place] on inhaler 46 [facility] albuterol Yes 2{puff} Inhale 2 U nivers 90 2-02 Puffs. [facility]y of mcg/actuati 11:15: [place] on inhaler 46 [facility] albuterol Yes 2{puff} Inhale 2 U nivers 90 2-02 Puffs. [facility] of mcg/actuati 11:15: [place] on inhaler 46 [facility] albuterol Yes 2{puff} Inhale 2 U nivers 90 2-02 Puffs. [facility]y of mcg/actuati 11:15: [place] on inhaler 46 [facility] albuterol Yes 2{puff} Inhale 2 U nivers 90 2-02 Puffs. [facility]y of mcg/actuati 11:15: [place] on inhaler 46 [facility] albuterol Yes 2{puff} Inhale 2 U nivers 90 2-02 Puffs. [facility]y of mcg/actuati 11:15: [place] on inhaler 46 [facility] albuterol Yes 2{puff} Inhale 2 U nivers 90 2-02 Puffs. [facility]y of mcg/actuati 11:15: [place] on inhaler 46 [facility] albuterol Yes 2{puff} Inhale 2 U nivers 90 2-02 Puffs. [facility]y of mcg/actuati 11:15: [place] on inhaler 46 [facility] albuterol Yes 2{puff} Inhale 2 U nivers 90 2-02 Puffs. [facility]y of mcg/actuati 11:15: [place] on inhaler 46 [facility] albuterol Yes 2{puff} Inhale 2 U nivers 90 2-02 Puffs. [facility]y of mcg/actuati 11:15: [place] on inhaler 46 [facility] albuterol 0 Yes 2{puff} Inhale 2 U nivers 90 2-02 Puffs. [facility]y of mcg/actuati 11:15: [place] on inhaler 46 [facility] albuterol Yes 2{puff} Inhale 2 U nivers 90 2-02 Puffs. [facility]y of mcg/actuati 11:15: [place] on inhaler 46 [facility] albuterol 0 Yes 2{puff} Inhale 2 U nivers 90 2-02 Puffs. ity of mcg/actuati 11:15: [place] on inhaler 46 [facility] albuterol 0 Yes 2{puff} Inhale 2 U nivers 90 2-02 Puffs. ity of mcg/actuati 11:15: [place] on inhaler 46 [facility] albuterol 0 Yes 2{puff} Inhale 2 U nivers 90 2-02 Puffs. [facility]y of mcg/actuati 11:15: [place] on inhaler 46 [facility] albuterol 0 Yes 2{puff} Inhale 2 U nivers 90 2-02 Puffs. ity of mcg/actuati 11:15: [place] on inhaler 46 [facility] albuterol Yes 2{puff} Inhale 2 U nivers 90 2-02 Puffs. ity of mcg/actuati 11:15: [place] on inhaler 46 [facility] albuterol 0 Yes 2{puff} Inhale 2 U nivers 90 2-02 Puffs. ity of mcg/actuati 11:15: [place] on inhaler 46 [facility] albuterol 0 Yes 2{puff} Inhale 2 U nivers 90 2-02 Puffs. ity of mcg/actuati 11:15: [place] on inhaler 46 [facility] albuterol 0 Yes 2{puff} Inhale 2 U nivers 90 2-02 Puffs. ity of mcg/actuati 11:15: [place] on inhaler 46 [facility] albuterol 0 Yes 2{puff} Inhale 2 U nivers 90 2-02 Puffs. ity of mcg/actuati 11:15: [place] on inhaler 46 [facility] albuterol 0 Yes 2{puff} Inhale 2 U nivers 90 2-02 Puffs. ity of mcg/actuati 11:15: [place] on inhaler 46 [facility] albuterol 0 Yes 2{puff} Inhale 2 U nivers 90 2-02 Puffs. ity of mcg/actuati 11:15: [place] on inhaler 46 [facility] albuterol Yes 2{puff} Inhale 2 U nivers 90 2-02 Puffs. ity of mcg/actuati 11:15: [place] on inhaler 46 [facility] albuterol 0 Yes 2{puff} Inhale 2 U nivers 90 2-02 Puffs. ity of mcg/actuati 11:15: [place] on inhaler 46 [facility] albuterol 0 Yes 2{puff} Inhale 2 U nivers 90 2-02 Puffs. ity of mcg/actuati 11:15: [place] on inhaler 46 [facility] albuterol Yes 2{puff} Inhale 2 U nivers 90 2-02 Puffs. ity of mcg/actuati 11:15: [place] on inhaler 46 [facility] albuterol Yes 2{puff} Inhale 2 U nivers 90 2-02 Puffs. ity of mcg/actuati 11:15: [place] on inhaler 46 [facility] albuterol Yes 2{puff} Inhale 2 U nivers 90 2-02 Puffs. ity of mcg/actuati 11:15: [place] on inhaler 46 [facility] albuterol 0 Yes 2{puff} Inhale 2 U nivers 90 2-02 Puffs. ity of mcg/actuati 11:15: [place] on inhaler 46 [facility] albuterol 0 Yes 2{puff} Inhale 2 U nivers 90 2-02 Puffs. ity of mcg/actuati 11:15: [place] on inhaler 46 [facility] albuterol 0 Yes 2{puff} Inhale 2 U nivers 90 2-02 Puffs. ity of mcg/actuati 11:15: [place] on inhaler 46 [facility] albuterol 0 Yes 2{puff} Inhale 2 U nivers 90 2-02 Puffs. ity of mcg/actuati 11:15: [place] on inhaler 46 [facility] albuterol 0 Yes 2{puff} Inhale 2 U nivers 90 2-02 Puffs. ity of mcg/actuati 11:15: [place] on inhaler 46 [facility] albuterol 2023-0 Yes 2{puff} Inhale 2 U nivers 90 2-02 Puffs. ity of mcg/actuati 11:15: [place] on inhaler 46 [facility] albuterol Yes 2{puff} Inhale 2 U nivers 90 2-02 Puffs. ity of mcg/actuati 11:15: [place] on inhaler 46 [facility] albuterol Yes 2{puff} Inhale 2 U nivers 90 2-02 Puffs. ity of mcg/actuati 11:15: [place] on inhaler 46 [facility] albuterol Yes 2{puff} Inhale 2 U nivers 90 2-02 Puffs. ity of mcg/actuati 11:15: [place] on inhaler 46 [facility] albuterol Yes 2{puff} Inhale 2 U nivers 90 2-02 Puffs. ity of mcg/actuati 11:15: [place] on inhaler 46 [facility] albuterol Yes 2{puff} Inhale 2 U nivers 90 2-02 Puffs. ity of mcg/actuati 11:15: [place] on inhaler 46 [facility] albuterol Yes 2{puff} Inhale 2 U nivers 90 2-02 Puffs. ity of mcg/actuati 11:15: [place] on inhaler 46 [facility] albuterol Yes 2{puff} Inhale 2 U nivers 90 2-02 Puffs. ity of mcg/actuati 11:15: [place] on inhaler 46 [facility] albuterol Yes 2{puff} Inhale 2 U nivers 90 2-02 Puffs. ity of mcg/actuati 11:15: [place] on inhaler 46 [facility] albuterol Yes 2{puff} Inhale 2 U nivers 90 2-02 Puffs. ity of mcg/actuati 11:15: [place] on inhaler 46 [facility] albuterol 0 Yes 2{puff} Inhale 2 U nivers 90 2-02 Puffs. ity of mcg/actuati 11:15: [place] on inhaler 46 [facility] albuterol 0 Yes 2{puff} Inhale 2 U nivers 90 2-02 Puffs. ity of mcg/actuati 11:15: [place] on inhaler 46 [facility] albuterol Yes 2{puff} Inhale 2 U nivers 90 2-02 Puffs. ity of mcg/actuati 11:15: [place] on inhaler 46 [facility] albuterol 0 Yes 2{puff} Inhale 2 U nivers 90 2-02 Puffs. ity of mcg/actuati 11:15: [place] on inhaler 46 [facility] albuterol 0 Yes 2{puff} Inhale 2 U nivers 90 2-02 Puffs. ity of mcg/actuati 11:15: [place] on inhaler 46 [facility] albuterol 0 Yes 2{puff} Inhale 2 U nivers 90 2-02 Puffs. ity of mcg/actuati 11:15: [place] on inhaler 46 [facility] albuterol Yes 2{puff} Inhale 2 U nivers 90 2-02 Puffs. ity of mcg/actuati 11:15: [place] on inhaler 46 [facility] albuterol 0 Yes 2{puff} Inhale 2 U nivers 90 2-02 Puffs. ity of mcg/actuati 11:15: [place] on inhaler 46 [facility] albuterol 0 Yes 2{puff} Inhale 2 U nivers 90 2-02 Puffs. ity of mcg/actuati 11:15: [place] on inhaler 46 [facility] albuterol Yes 2{puff} Inhale 2 U nivers 90 2-02 Puffs. ity of mcg/actuati 11:15: [place] on inhaler 46 [facility] albuterol 0 Yes 2{puff} Inhale 2 U nivers 90 2-02 Puffs. ity of mcg/actuati 11:15: [place] on inhaler 46 [facility] albuterol 0 Yes 2{puff} Inhale 2 U nivers 90 2-02 Puffs. ity of mcg/actuati 11:15: [place] on inhaler 46 [facility] albuterol 0 Yes 2{puff} Inhale 2 U nivers 90 2-02 Puffs. ity of mcg/actuati 11:15: [place] on inhaler 46 [facility] albuterol Yes 2{puff} Inhale 2 U nivers 90 2-02 Puffs. ity of mcg/actuati 11:15: [place] on inhaler 46 [facility] albuterol Yes 2{puff} Inhale 2 U nivers 90 2-02 Puffs. ity of mcg/actuati 11:15: [place] on inhaler 46 [facility] albuterol Yes 2{puff} Inhale 2 U nivers 90 2-02 Puffs. ity of mcg/actuati 11:15: [place] on inhaler 46 [facility] albuterol Yes 2{puff} Inhale 2 U nivers 90 2-02 Puffs. ity of mcg/actuati 11:15: [place] on inhaler 46 [facility] albuterol Yes 2{puff} Inhale 2 U nivers 90 2-02 Puffs. ity of mcg/actuati 11:15: [place] on inhaler 46 [facility] albuterol Yes 2{puff} Inhale 2 U nivers 90 2-02 Puffs. ity of mcg/actuati 11:15: [place] on inhaler 46 [facility] albuterol Yes 2{puff} Inhale 2 U nivers 90 2-02 Puffs. ity of mcg/actuati 11:15: [place] on inhaler 46 [facility] albuterol Yes 2{puff} Inhale 2 U nivers 90 2-02 Puffs. ity of mcg/actuati 11:15: [place] on inhaler 46 [facility] albuterol Yes 2{puff} Inhale 2 U nivers 90 2-02 Puffs. ity of mcg/actuati 11:15: [place] on inhaler 46 [facility] albuterol 0 Yes 2{puff} Inhale 2 U nivers 90 2-02 Puffs. ity of mcg/actuati 11:15: [place] on inhaler 46 [facility] albuterol 0 Yes 2{puff} Inhale 2 U nivers 90 2-02 Puffs. ity of mcg/actuati 11:15: on inhaler 46 [facility] albuterol 0 Yes 2{puff} Inhale 2 U nivers 90 2-02 Puffs. ity of mcg/actuati 11:15: [place] on inhaler 46 [facility] albuterol 0 Yes 2{puff} Inhale 2 U nivers 90 2-02 Puffs. ity of mcg/actuati 11:15: [place] on inhaler 46 [facility] albuterol 0 Yes 2{puff} Inhale 2 U nivers 90 2-02 Puffs. ity of mcg/actuati 11:15: [place] on inhaler 46 [facility] albuterol 0 Yes 2{puff} Inhale 2 U nivers 90 2-02 Puffs. ity of mcg/actuati 11:15: [place] on inhaler 46 [facility] albuterol Yes 2{puff} Inhale 2 U nivers 90 2-02 Puffs. ity of mcg/actuati 11:15: [place] on inhaler 46 [facility] albuterol Yes 2{puff} Inhale 2 U nivers 90 2-02 Puffs. ity of mcg/actuati 11:15: [place] on inhaler 46 [facility] albuterol 0 Yes 2{puff} Inhale 2 U nivers 90 2-02 Puffs. ity of mcg/actuati 11:15: [place] on inhaler 46 [facility] albuterol 0 Yes 2{puff} Inhale 2 U nivers 90 2-02 Puffs. ity of mcg/actuati 11:15: [place] on inhaler 46 [facility] albuterol 0 Yes 2{puff} Inhale 2 U nivers 90 2-02 Puffs. ity of mcg/actuati 11:15: [place] on inhaler 46 [facility] albuterol 0 Yes 2{puff} Inhale 2 U nivers 90 2-02 Puffs. ity of mcg/actuati 11:15: [place] on inhaler 46 [facility] albuterol 0 Yes 2{puff} Inhale 2 U nivers 90 2-02 Puffs. ity of mcg/actuati 11:15: [place] on inhaler 46 [facility] albuterol 0 Yes 2{puff} Inhale 2 U nivers 90 2-02 Puffs. ity of mcg/actuati 11:15: [place] on inhaler 46 [facility] albuterol Yes 2{puff} Inhale 2 U nivers 90 2-02 Puffs. ity of mcg/actuati 11:15: [place] on inhaler 46 [facility] albuterol 0 Yes 2{puff} Inhale 2 U nivers 90 2-02 Puffs. ity of mcg/actuati 11:15: [place] on inhaler 46 [facility] albuterol 0 Yes 2{puff} Inhale 2 U nivers 90 2-02 Puffs. ity of mcg/actuati 11:15: [place] on inhaler 46 [facility] albuterol Yes 2{puff} Inhale 2 U nivers 90 2-02 Puffs. ity of mcg/actuati 11:15: [place] on inhaler 46 [facility] albuterol Yes 2{puff} Inhale 2 U nivers 90 2-02 Puffs. ity of mcg/actuati 11:15: [place] on inhaler 46 [facility] albuterol 0 Yes 2{puff} Inhale 2 U nivers 90 2-02 Puffs. ity of mcg/actuati 11:15: [place] on inhaler 46 [facility] albuterol 0 Yes 2{puff} Inhale 2 U nivers 90 2-02 Puffs. ity of mcg/actuati 11:15: [place] on inhaler 46 [facility] albuterol Yes 2{puff} Inhale 2 U nivers 90 2-02 Puffs. ity of mcg/actuati 11:15: [place] on inhaler 46 [facility] albuterol 0 Yes 2{puff} Inhale 2 U nivers 90 2-02 Puffs. ity of mcg/actuati 11:15: [place] on inhaler 46 [facility] albuterol 0 Yes 2{puff} Inhale 2 U nivers 90 2-02 Puffs. ity of mcg/actuati 11:15: [place] on inhaler 46 [facility] albuterol 0 Yes 2{puff} Inhale 2 U nivers 90 2-02 Puffs. ity of mcg/actuati 11:15: [place] on inhaler 46 [facility] albuterol Yes 2{puff} Inhale 2 U nivers 90 2-02 Puffs. ity of mcg/actuati 11:15: [place] on inhaler 46 [facility] albuterol Yes 2{puff} Inhale 2 U nivers 90 2-02 Puffs. ity of mcg/actuati 11:15: [place] on inhaler 46 [facility] albuterol Yes 2{puff} Inhale 2 U nivers 90 2-02 Puffs. ity of mcg/actuati 11:15: [place] on inhaler 46 [facility] albuterol Yes 2{puff} Inhale 2 U nivers 90 2-02 Puffs. ity of mcg/actuati 11:15: [place] on inhaler 46 [facility] albuterol Yes 2{puff} Inhale 2 U nivers 90 2-02 Puffs. ity of mcg/actuati 11:15: [place] on inhaler 46 [facility] albuterol Yes 2{puff} Inhale 2 U nivers 90 2-02 Puffs. ity of mcg/actuati 11:15: [place] on inhaler 46 [facility] albuterol Yes 2{puff} Inhale 2 U nivers 90 2-02 Puffs. ity of mcg/actuati 11:15: [place] on inhaler 46 [facility] albuterol Yes 2{puff} Inhale 2 U nivers 90 2-02 Puffs. ity of mcg/actuati 11:15: [place] on inhaler 46 [facility] albuterol Yes 2{puff} Inhale 2 U nivers 90 2-02 Puffs. ity of mcg/actuati 11:15: [place] on inhaler 46 [facility] albuterol Yes 2{puff} Inhale 2 U nivers 90 2-02 Puffs. ity of mcg/actuati 11:15: [place] on inhaler 46 [facility] albuterol Yes 2{puff} Inhale 2 U nivers 90 2-02 Puffs. ity of mcg/actuati 11:15: [place] on inhaler 46 [facility] albuterol Yes 2{puff} Inhale 2 U nivers 90 2-02 Puffs. ity of mcg/actuati 11:15: [place] on inhaler 46 [facility] albuterol 0 Yes 2{puff} Inhale 2 U nivers 90 2-02 Puffs. ity of mcg/actuati 11:15: [place] on inhaler 46 [facility] albuterol 0 Yes 2{puff} Inhale 2 U nivers 90 2-02 Puffs. ity of mcg/actuati 11:15: [place] on inhaler 46 [facility] albuterol 0 Yes 2{puff} Inhale 2 U nivers 90 2-02 Puffs. ity of mcg/actuati 11:15: [place] on inhaler 46 [facility] albuterol 0 Yes 2{puff} Inhale 2 U nivers 90 2-02 Puffs. ity of mcg/actuati 11:15: on inhaler 46 [facility] albuterol 0 Yes 2{puff} Inhale 2 U nivers 90 2-02 Puffs. ity of mcg/actuati 11:15: [place] on inhaler 46 [facility] albuterol 0 Yes 2{puff} Inhale 2 U nivers 90 2-02 Puffs. ity of mcg/actuati 11:15: on inhaler 46 [facility] albuterol 0 Yes 2{puff} Inhale 2 U nivers 90 2-02 Puffs. ity of mcg/actuati 11:15: on inhaler 46 [facility] albuterol 0 Yes 2{puff} Inhale 2 U nivers 90 2-02 Puffs. ity of mcg/actuati 11:15: [place] on inhaler 46 [facility] albuterol 0 Yes 2{puff} Inhale 2 U nivers 90 2-02 Puffs. ity of mcg/actuati 11:15: [place] on inhaler 46 [facility] albuterol 0 Yes 2{puff} Inhale 2 U nivers 90 2-02 Puffs. ity of mcg/actuati 11:15: on inhaler 46 [facility] albuterol 0 Yes 2{puff} Inhale 2 U nivers 90 2-02 Puffs. ity of mcg/actuati 11:15: [place] on inhaler 46 [facility] albuterol Yes 2{puff} Inhale 2 U nivers 90 2-02 Puffs. ity of mcg/actuati 11:15: [place] on inhaler 46 [facility] albuterol Yes 2{puff} Inhale 2 U nivers 90 2-02 Puffs. ity of mcg/actuati 11:15: [place] on inhaler 46 [facility] albuterol Yes 2{puff} Inhale 2 U nivers 90 2-02 Puffs. ity of mcg/actuati 11:15: [place] on inhaler 46 [facility] albuterol Yes 2{puff} Inhale 2 U nivers 90 2-02 Puffs. ity of mcg/actuati 11:15: [place] on inhaler 46 [facility] albuterol Yes 2{puff} Inhale 2 U nivers 90 2-02 Puffs. ity of mcg/actuati 11:15: [place] on inhaler 46 [facility] albuterol Yes 2{puff} Inhale 2 U nivers 90 2-02 Puffs. ity of mcg/actuati 11:15: [place] on inhaler 46 [facility] albuterol 0 Yes 2{puff} Inhale 2 U nivers 90 2-02 Puffs. ity of mcg/actuati 11:15: [place] on inhaler 46 [facility] albuterol Yes 2{puff} Inhale 2 U nivers 90 2-02 Puffs. ity of mcg/actuati 11:15: [place] on inhaler 46 [facility] albuterol 0 Yes 2{puff} Inhale 2 U nivers 90 2-02 Puffs. ity of mcg/actuati 11:15: [place] on inhaler 46 [facility] albuterol 0 Yes 2{puff} Inhale 2 U nivers 90 2-02 Puffs. ity of mcg/actuati 11:15: [place] on inhaler 46 [facility] albuterol 0 Yes 2{puff} Inhale 2 U nivers 90 2-02 Puffs. ity of mcg/actuati 11:15: [place] on inhaler 46 [facility] albuterol 2023-0 Yes 2{puff} Inhale 2 U nivers 90 2-02 Puffs. ity of mcg/actuati 11:15: on inhaler 46 [facility] albuterol Yes 2{puff} Inhale 2 U nivers 90 2-02 Puffs. ity of mcg/actuati 11:15: on inhaler 46 [facility] albuterol Yes 2{puff} Inhale 2 U nivers 90 2-02 Puffs. ity of mcg/actuati 11:15: on inhaler 46 [facility] albuterol Yes 2{puff} Inhale 2 U nivers 90 2-02 Puffs. ity of mcg/actuati 11:15: on inhaler 46 [facility] albuterol Yes 2{puff} Inhale 2 U nivers 90 2-02 Puffs. ity of mcg/actuati 11:15: on inhaler 46 [facility] albuterol Yes 2{puff} Inhale 2 U nivers 90 2-02 Puffs. ity of mcg/actuati 11:15: on inhaler 46 [facility] albuterol Yes 2{puff} Inhale 2 U nivers 90 2-02 Puffs. ity of mcg/actuati 11:15: [place] on inhaler 46 [facility] Nitrofurant Yes [id number] 100mg Take 1 [facility] o[facility]&Nit. 2-02 capsule by ity o f Macrocryst 00:00: mouth in [place] as 100 mg 00 the Medical capsule morning Branch and 1 capsule in the evening. nystatin 0 Yes [id number] Apply to U nivers 100,000 2-02 area(s) 2 ity of unit/gram 00:00: (two) [place] powder 00 times Medical daily. Branch nystatin 2022-0 Yes [id number] Apply to U nivers 100,000 2-02 area(s) 2 ity of unit/gram 00:00: (two) [place] powder 00 times Medical daily. Branch Nitrofurant 0 Yes [id number] 100mg Take 1 [facility] oin&Nit. 2-02 capsule by ity o f [facility]rocryst 00:00: mouth in [place] as 100 mg 00 the Medical capsule morning Branch and 1 capsule in the evening. nystatin 2023-0 Yes [id number] Apply to U nivers 100,000 2-02 area(s) 2 ity of unit/gram 00:00: (two) [place] powder 00 times Medical daily. Branch Nitrofurant 3-0 Yes [id number] 100mg Take 1 [facility] oin&Nit. 2-02 capsule by ity o f [facility]rocryst 00:00: mouth in [place] as 100 mg 00 the Medical capsule morning Branch and 1 capsule in the evening. nystatin 3-0 Yes [id number] Apply to U nivers 100,000 2-02 area(s) 2 ity of unit/gram 00:00: (two) [place] powder 00 times Medical daily. Branch nystatin 3-0 Yes [id number] Apply to U nivers 100,000 2-02 area(s) 2 ity of unit/gram 00:00: (two) [place] powder 00 times Medical daily. Branch Nitrofurant 3-0 Yes [id number] 100mg Take 1 [facility] oin&Nit. 2-02 capsule by ity o f [facility]rocryst 00:00: mouth in [place] as 100 mg 00 the Medical capsule morning Branch and 1 capsule in the evening. nystatin 3-0 Yes [id number] Apply to U nivers 100,000 2-02 area(s) 2 ity of unit/gram 00:00: (two) [place] powder 00 times Medical daily. Branch Nitrofurant 3-0 Yes [id number] 100mg Take 1 [facility] oin&Nit. 2-02 capsule by ity o f [facility] 00:00: mouth in [place] as 100 mg 00 the Medical capsule morning Branch and 1 capsule in the evening. nystatin 3-0 Yes [id number] Apply to [facility] 100,000 2-02 area(s) 2 ity of unit/gram 00:00: (two) [place] powder 00 times Medical daily. Branch Nitrofurant 2023-0 Yes [id number] 100mg Take 1 [facility] 2-02 capsule by [facility] o f [facility] 00:00: mouth in [place] 100 mg 00 the Medical capsule morning Branch and 1 capsule in the evening. nystatin 2023-0 Yes [id number] Apply to [facility] 100,000 2-02 area(s) 2 ity of unit/gram 00:00: (two) [place] powder 00 times Medical daily. Branch Nitrofurant 2023-0 Yes [id number] 100mg Take 1 [facility] 2-02 capsule by [facility] o f [facility] 00:00: mouth in [place] 100 mg 00 the Medical capsule morning Branch and 1 capsule in the evening. nystatin 2023-0 Yes [id number] Apply to [facility] 100,000 2-02 area(s) 2 ity of unit/gram 00:00: (two) [place] powder 00 times Medical daily. Branch Nitrofurant 2023-0 Yes [id number] 100mg Take 1 [facility] 2-02 capsule by [facility] o [facility] 00:00: mouth in [place] 100 mg 00 the Medical capsule morning Branch and 1 capsule in the evening. nystatin 2023-0 Yes [id number] Apply to [facility] 100,000 2-02 area(s) 2 ity of unit/gram 00:00: (two) [place] powder 00 times Medical daily. Branch nystatin 2023-0 Yes [id number] Apply to [facility] 100,000 2-02 area(s) 2 ity of unit/gram 00:00: (two) [place] powder 00 times Medical daily. Branch Nitrofurant 2023-0 Yes [id number] 100mg Take 1 [facility] 2-02 capsule by [facility] o f [facility] 00:00: mouth in [place] 100 mg 00 the Medical capsule morning Branch and 1 capsule in the evening. nystatin 2023-0 Yes [id number] Apply to [facility] 100,000 2-02 area(s) 2 ity of unit/gram 00:00: (two) [place] powder 00 times Medical daily. Branch Nitrofurant 2023-0 Yes [id number] 100mg Take 1 [facility] 2-02 capsule by [facility] o f [facility] 00:00: mouth in [place] 100 mg 00 the Medical capsule morning Branch and 1 capsule in the evening. nystatin 2023-0 Yes [id number] Apply to [facility] 100,000 2-02 area(s) 2 ity of unit/gram 00:00: (two) [place] powder 00 times Medical daily. Branch Nitrofurant 2023-0 Yes [id number] 100mg Take 1 [facility] 2-02 capsule by it[facility] o f [facility] 00:00: mouth in [place] 100 mg 00 the Medical capsule morning Branch and 1 capsule in the evening. nystatin 2023-0 Yes [id number] Apply to [facility] 100,000 2-02 area(s) 2 ity of unit/gram 00:00: (two) [place] powder 00 times Medical daily. Branch Nitrofurant 3-0 Yes [id number] 100mg Take 1 [facility] 2-02 capsule by it[facility] o f [facility] 00:00: mouth in [place] 100 mg 00 the Medical capsule morning Branch and 1 capsule in the evening. nystatin 3-0 Yes [id number] Apply to [facility] 100,000 2-02 area(s) 2 ity of unit/gram 00:00: (two) [place] powder 00 times Medical daily. Branch Nitrofurant 3-0 Yes [id number] 100mg Take 1 [facility] 2-02 capsule by it[facility] o f [facility] 00:00: mouth in [place] 100 mg 00 the Medical capsule morning Branch and 1 capsule in the evening. nystatin 3-0 Yes [id number] Apply to [facility] 100,000 2-02 area(s) 2 ity of unit/gram 00:00: (two) [place] powder 00 times Medical daily. Branch Nitrofurant 3-0 Yes [id number] 100mg Take 1 [facility] 2-02 capsule by [facility] o f [facility] 00:00: mouth in [place] 100 mg 00 the Medical capsule morning Branch and 1 capsule in the evening. nystatin 3-0 Yes [id number] Apply to [facility] 100,000 2-02 area(s) 2 ity of unit/gram 00:00: (two) [place] powder 00 times Medical daily. Branch Nitrofurant 2023-0 Yes [id number] 100mg Take 1 [facility] 2-02 capsule by ity o f [facility] 00:00: mouth in [place] 100 mg 00 the Medical capsule morning Branch and 1 capsule in the evening. nystatin 2023-0 Yes [id number] Apply to [facility] 100,000 2-02 area(s) 2 ity of unit/gram 00:00: (two) [place] powder 00 times Medical daily. Branch Nitrofurant 3-0 Yes [id number] 100mg Take 1 [facility] 2-02 capsule by ity o f [facility] 00:00: mouth in [place] 100 mg 00 the Medical capsule morning Branch and 1 capsule in the evening. nystatin 2022-0 Yes [id number] Apply to [facility] 100,000 2-02 area(s) 2 ity of unit/gram 00:00: (two) [place] powder 00 times Medical daily. Branch Nitrofurant 3-0 Yes [id number] 100mg Take 1 [facility] 2-02 capsule by ity o f [facility] 00:00: mouth in [place] 100 mg 00 the Medical capsule morning Branch and 1 capsule in the evening. nystatin 2022-0 Yes [id number] Apply to [facility] 100,000 2-02 area(s) 2 ity of unit/gram 00:00: (two) [place] powder 00 times Medical daily. Branch Nitrofurant 2022-0 Yes [id number] 100mg Take 1 [facility] 2-02 capsule by ity o f [facility] 00:00: mouth in [place] 100 mg 00 the Medical capsule morning Branch and 1 capsule in the evening. nystatin 2022-0 Yes [id number] Apply to [facility] 100,000 2-02 area(s) 2 ity of unit/gram 00:00: (two) [place] powder 00 times Medical daily. Branch Nitrofurant 3-0 Yes [id number] 100mg Take 1 [facility] 2-02 capsule by ity o f [facility] 00:00: mouth in [place] 100 mg 00 the Medical capsule morning Branch and 1 capsule in the evening. nystatin 3-0 Yes [id number] Apply to [facility] 100,000 2-02 area(s) 2 ity of unit/gram 00:00: (two) [place] powder 00 times Medical daily. Branch Nitrofurant 2023-0 Yes [id number] 100mg Take 1 [facility] 2-02 capsule by ity o f [facility] 00:00: mouth in [place] 100 mg 00 the Medical capsule morning Branch and 1 capsule in the evening. nystatin 2023-0 Yes [id number] Apply to [facility] 100,000 2-02 area(s) 2 ity of unit/gram 00:00: (two) [place] powder 00 times Medical daily. Branch Nitrofurant 3-0 Yes [id number] 100mg Take 1 [facility] 2-02 capsule by ity o f [facility] 00:00: mouth in [place] 100 mg 00 the Medical capsule morning Branch and 1 capsule in the evening. nystatin 3-0 Yes [id number] Apply to [facility] 100,000 2-02 area(s) 2 ity of unit/gram 00:00: (two) [place] powder 00 times Medical daily. Branch Nitrofurant 3-0 Yes [id number] 100mg Take 1 [facility] 2-02 capsule by ity o f [facility] 00:00: mouth in [place] 100 mg 00 the Medical capsule morning Branch and 1 capsule in the evening. nystatin 2022-0 Yes [id number] Apply to [facility] 100,000 2-02 area(s) 2 ity of unit/gram 00:00: (two) [place] powder 00 times Medical daily. Branch Nitrofurant 2022-0 Yes [id number] 100mg Take 1 [facility] 2-02 capsule by ity o f [facility] 00:00: mouth in [place] 100 mg 00 the Medical capsule morning Branch and 1 capsule in the evening. nystatin 2022-0 Yes [id number] Apply to [facility] 100,000 2-02 area(s) 2 ity of unit/gram 00:00: (two) [place] powder 00 times Medical daily. Branch Nitrofurant 3-0 Yes [id number] 100mg Take 1 [facility] 2-02 capsule by ity o f [facility] 00:00: mouth in [place] 100 mg 00 the Medical capsule morning Branch and 1 capsule in the evening. nystatin 2023-0 Yes [id number] Apply to [facility] 100,000 2-02 area(s) 2 ity of unit/gram 00:00: (two) [place] powder 00 times Medical daily. Branch Nitrofurant 2023-0 Yes [id number] 100mg Take 1 [facility] 2-02 capsule by ity o f [facility] 00:00: mouth in [place] 100 mg 00 the Medical capsule morning Branch and 1 capsule in the evening. nystatin 2023-0 Yes [id number] Apply to [facility] 100,000 2-02 area(s) 2 ity of unit/gram 00:00: (two) [place] powder 00 times Medical daily. Branch Nitrofurant 2023-0 Yes [id number] 100mg Take 1 [facility] 2-02 capsule by ity o f [facility] 00:00: mouth in [place] 100 mg 00 the Medical capsule morning Branch and 1 capsule in the evening. nystatin 2023-0 Yes [id number] Apply to [facility] 100,000 2-02 area(s) 2 ity of unit/gram 00:00: (two) [place] powder 00 times Medical daily. Branch Nitrofurant 2023-0 Yes [id number] 100mg Take 1 [facility] 2-02 capsule by ity o f [facility] 00:00: mouth in [place] 100 mg 00 the Medical capsule morning Branch and 1 capsule in the evening. nystatin 3-0 Yes [id number] Apply to [facility] 100,000 2-02 area(s) 2 ity of unit/gram 00:00: (two) [place] powder 00 times Medical daily. Branch Nitrofurant 3-0 Yes [id number] 100mg Take 1 [facility] 2-02 capsule by ity o f [facility] 00:00: mouth in [place] 100 mg 00 the Medical capsule morning Branch and 1 capsule in the evening. nystatin 2023-0 Yes [id number] Apply to [facility] 100,000 2-02 area(s) 2 ity of unit/gram 00:00: (two) [place] powder 00 times Medical daily. Branch Nitrofurant 2023-0 Yes [id number] 100mg Take 1 [facility] 2-02 capsule by ity o f [facility] 00:00: mouth in [place] 100 mg 00 the Medical capsule morning Branch and 1 capsule in the evening. nystatin 2023-0 Yes [id number] Apply to [facility] 100,000 2-02 area(s) 2 ity of unit/gram 00:00: (two) [place] powder 00 times Medical daily. Branch Nitrofurant 2023-0 Yes [id number] 100mg Take 1 [facility] 2-02 capsule by ity o f [facility] 00:00: mouth in [place] 100 mg 00 the Medical capsule morning Branch and 1 capsule in the evening. nystatin 2022-0 Yes [id number] Apply to [facility] 100,000 2-02 area(s) 2 ity of unit/gram 00:00: (two) [place] powder 00 times Medical daily. Branch Nitrofurant 2022-0 Yes [id number] 100mg Take 1 [facility] 2-02 capsule by ity o f [facility] 00:00: mouth in [place] 100 mg 00 the Medical capsule morning Branch and 1 capsule in the evening. nystatin 2022-0 Yes [id number] Apply to [facility] 100,000 2-02 area(s) 2 ity of unit/gram 00:00: (two) [place] powder 00 times Medical daily. Branch Nitrofurant 2022-0 Yes [id number] 100mg Take 1 [facility] 2-02 capsule by ity o f [facility] 00:00: mouth in [place] 100 mg 00 the Medical capsule morning Branch and 1 capsule in the evening. nystatin 2022-0 Yes [id number] Apply to [facility] 100,000 2-02 area(s) 2 ity of unit/gram 00:00: (two) [place] powder 00 times Medical daily. Branch Nitrofurant 2022-0 Yes [id number] 100mg Take 1 [facility] 2-02 capsule by ity o f [facility] 00:00: mouth in [place] 100 mg 00 the Medical capsule morning Branch and 1 capsule in the evening. nystatin 2022-0 Yes [id number] Apply to [facility] 100,000 2-02 area(s) 2 ity of unit/gram 00:00: (two) [place] powder 00 times Medical daily. Branch Nitrofurant 3-0 Yes [id number] 100mg Take 1 [facility]. 2-02 capsule by ity o f [facility] 00:00: mouth in [place] 100 mg 00 the Medical capsule morning Branch and 1 capsule in the evening. nystatin 3-0 Yes [id number] Apply to [facility] 100,000 2-02 area(s) 2 ity of unit/gram 00:00: (two) [place] powder 00 times Medical daily. Branch Nitrofurant 2023-0 Yes [id number] 100mg Take 1 [facility]. 2-02 capsule by ity o f [facility] 00:00: mouth in [place] 100 mg 00 the Medical capsule morning Branch and 1 capsule in the evening. nystatin 2023-0 Yes [id number] [facility] area(s) 2 ity of unit/gram 00:00: (two) [place] powder 00 times Medical daily. Branch Nitrofurant 2023-0 Yes [id number] 100mg Take 1 [facility]. 2-02 capsule by ity o f [facility] 00:00: mouth in [place] 100 mg 00 the Medical capsule morning Branch and 1 capsule in the evening. nystatin 3-0 Yes [id number] Apply to [facility] 100,000 2-02 area(s) 2 ity of unit/gram 00:00: (two) [place] powder 00 times Medical daily. Branch Nitrofurant 3-0 Yes [id number] 100mg Take 1 [facility] 2-02 capsule by ity o f [facility] 00:00: mouth in [place] 100 mg 00 the Medical capsule morning Branch and 1 capsule in the evening. nystatin 3-0 Yes [id number] Apply to [facility] 100,000 2-02 area(s) 2 ity of unit/gram 00:00: (two) [place] powder 00 times Medical daily. Branch Nitrofurant 3-0 Yes [id number] 100mg Take 1 [facility]. 2-02 capsule by ity o f [facility] 00:00: mouth in [place] 100 mg 00 the Medical capsule morning Branch and 1 capsule in the evening. nystatin 2023-0 Yes [id number] Apply to [facility] 100,000 2-02 area(s) 2 ity of unit/gram 00:00: (two) [place] powder 00 times Medical daily. Branch Nitrofurant 2023-0 Yes [id number] 100mg Take 1 [facility]. 2-02 capsule by ity o f [facility] 00:00: mouth in [place] 100 mg 00 the Medical capsule morning Branch and 1 capsule in the evening. nystatin 2023-0 Yes [id number] Apply to [facility] 100,000 2-02 area(s) 2 ity of unit/gram 00:00: (two) [place] powder 00 times Medical daily. Branch Nitrofurant 3-0 Yes [id number] 100mg Take 1 [facility] 2-02 capsule by ity o f [facility] 00:00: mouth in [place] 100 mg 00 the Medical capsule morning Branch and 1 capsule in the evening. nystatin 2022-0 Yes [id number] Apply to [facility] 100,000 2-02 area(s) 2 ity of unit/gram 00:00: (two) [place] powder 00 times Medical daily. Branch Nitrofurant 3-0 Yes [id number] 100mg Take 1 [facility]. 2-02 capsule by ity o f [facility] 00:00: mouth in [place] 100 mg 00 the Medical capsule morning Branch and 1 capsule in the evening. nystatin 3-0 Yes [id number] [facility] 2-02 area(s) 2 ity of unit/gram 00:00: (two) [place] powder 00 times Medical daily. Branch Nitrofurant 3-0 Yes [id number] 100mg Take 1 [facility]. 2-02 capsule by ity o f [facility] 00:00: mouth in [place] 100 mg 00 the Medical capsule morning Branch and 1 capsule in the evening. nystatin 2022-0 Yes [id number] Apply to [facility] 100,000 2-02 area(s) 2 ity of unit/gram 00:00: (two) [place] powder 00 times Medical daily. Branch Nitrofurant 3-0 Yes [id number] 100mg Take 1 [facility]. 2-02 capsule by ity o f [facility] 00:00: mouth in [place] 100 mg 00 the Medical capsule morning Branch and 1 capsule in the evening. nystatin 2023-0 Yes [id number] Apply to [facility] 100,000 2-02 area(s) 2 ity of unit/gram 00:00: (two) [place] powder 00 times Medical daily. Branch Nitrofurant 2023-0 Yes [id number] 100mg Take 1 [facility]. 2-02 capsule by ity o f [facility] 00:00: mouth in [place] 100 mg 00 the Medical capsule morning Branch and 1 capsule in the evening. nystatin 2023-0 Yes [id number] Apply to [facility] 100,000 2-02 area(s) 2 ity of unit/gram 00:00: (two) [place] powder 00 times Medical daily. Branch Nitrofurant 3-0 Yes [id number] 100mg Take 1 [facility]. 2-02 capsule by ity o f [facility] 00:00: mouth in [place] 100 mg 00 the Medical capsule morning Branch and 1 capsule in the evening. nystatin 2022-0 Yes [id number] Apply to [facility] 100,000 2-02 area(s) 2 ity of unit/gram 00:00: (two) [place] powder 00 times Medical daily. Branch Nitrofurant 3-0 Yes [id number] 100mg Take 1 [facility]. 2-02 capsule by ity o f [facility] 00:00: mouth in [place] 100 mg 00 the Medical capsule morning Branch and 1 capsule in the evening. nystatin 3-0 Yes [id number] Apply to [facility] 100,000 2-02 area(s) 2 ity of unit/gram 00:00: (two) [place] powder 00 times Medical daily. Branch Nitrofurant 3-0 Yes [id number] 100mg Take 1 [facility]. 2-02 capsule by ity o f [facility] 00:00: mouth in [place] 100 mg 00 the Medical capsule morning Branch and 1 capsule in the evening. nystatin 3-0 Yes [id number] Apply to [facility] 100,000 2-02 area(s) 2 ity of unit/gram 00:00: (two) [place] powder 00 times Medical daily. Branch Nitrofurant 2023-0 Yes [id number] 100mg Take 1 [facility]. 2-02 capsule by ity o f [facility] 00:00: mouth in [place] 100 mg 00 the Medical capsule morning Branch and 1 capsule in the evening. nystatin 2023-0 Yes [id number] Apply to [facility] 100,000 2-02 area(s) 2 ity of unit/gram 00:00: (two) [place] powder 00 times Medical daily. Branch Nitrofurant 2023-0 Yes [id number] 100mg Take 1 [facility]. 2-02 capsule by ity o f [facility] 00:00: mouth in [place] 100 mg 00 the Medical capsule morning Branch and 1 capsule in the evening. nystatin 2023-0 Yes [id number] Apply to [facility] 100,000 2-02 area(s) 2 ity of unit/gram 00:00: (two) [place] powder 00 times Medical daily. Branch Nitrofurant 3-0 Yes [id number] 100mg Take 1 [facility]. 2-02 capsule by ity o f [facility] 00:00: mouth in [place] 100 mg 00 the Medical capsule morning Branch and 1 capsule in the evening. nystatin 3-0 Yes [id number] Apply to [facility] 100,000 2-02 area(s) 2 ity of unit/gram 00:00: (two) [place] powder 00 times Medical daily. Branch Nitrofurant 3-0 Yes [id number] 100mg Take 1 [facility]. 2-02 capsule by ity o f [facility] 00:00: mouth in [place] 100 mg 00 the Medical capsule morning Branch and 1 capsule in the evening. nystatin 3-0 Yes [id number] [facility] 2-02 area(s) 2 ity of unit/gram 00:00: (two) [place] powder 00 times Medical daily. Branch Nitrofurant 3-0 Yes [id number] 100mg Take 1 [facility]. 2-02 capsule by ity o f [facility] 00:00: mouth in [place] 100 mg 00 the Medical capsule morning Branch and 1 capsule in the evening. nystatin 3-0 Yes [id number] Apply to [facility] 100,000 2-02 area(s) 2 ity of unit/gram 00:00: (two) [place] powder 00 times Medical daily. Branch Nitrofurant 2023-0 Yes [id number] 100mg Take 1 [facility]. 2-02 capsule by ity o f [facility] 00:00: mouth in [place] 100 mg 00 the Medical capsule morning Branch and 1 capsule in the evening. nystatin 2023-0 Yes [id number] Apply to [facility] 100,000 2-02 area(s) 2 ity of unit/gram 00:00: (two) [place] powder 00 times Medical daily. Branch Nitrofurant 2023-0 Yes [id number] 100mg Take 1 [facility]. 2-02 capsule by ity o f [facility] 00:00: mouth in [place] 100 mg 00 the Medical capsule morning Branch and 1 capsule in the evening. nystatin 2023-0 Yes [id number] Apply to [facility] 100,000 2-02 area(s) 2 ity of unit/gram 00:00: (two) [place] powder 00 times Medical daily. Branch Nitrofurant 3-0 Yes [id number] 100mg Take 1 [facility]. 2-02 capsule by ity o f [facility] 00:00: mouth in [place] 100 mg 00 the Medical capsule morning Branch and 1 capsule in the evening. nystatin 3-0 Yes [id number] Apply to [facility] 100,000 2-02 area(s) 2 ity of unit/gram 00:00: (two) [place] powder 00 times Medical daily. Branch Nitrofurant 3-0 Yes [id number] 100mg Take 1 [facility]. 2-02 capsule by ity o f [facility] 00:00: mouth in [place] 100 mg 00 the Medical capsule morning Branch and 1 capsule in the evening. nystatin 3-0 Yes [id number] Apply to [facility] 100,000 2-02 area(s) 2 ity of unit/gram 00:00: (two) [place] powder 00 times Medical daily. Branch Nitrofurant 2023-0 Yes [id number] 100mg Take 1 [facility] 2-02 capsule by ity o f [facility] 00:00: mouth in [place] 100 mg 00 the Medical capsule morning Branch and 1 capsule in the evening. nystatin 2023-0 Yes [id number] Apply to [facility] 100,000 2-02 area(s) 2 ity of unit/gram 00:00: (two) [place] powder 00 times Medical daily. Branch Nitrofurant 2023-0 Yes [id number] 100mg Take 1 [facility]. 2-02 capsule by ity o f [facility] 00:00: mouth in [place] 100 mg 00 the Medical capsule morning Branch and 1 capsule in the evening. nystatin 2023-0 Yes [id number] Apply to [facility] 100,000 2-02 area(s) 2 ity of unit/gram 00:00: (two) [place] powder 00 times Medical daily. Branch Nitrofurant 3-0 Yes [id number] 100mg Take 1 [facility] 2-02 capsule by ity o f [facility] 00:00: mouth in [place] 100 mg 00 the Medical capsule morning Branch and 1 capsule in the evening. nystatin 3-0 Yes [id number] Apply to [facility] 100,000 2-02 area(s) 2 ity of unit/gram 00:00: (two) [place] powder 00 times Medical daily. Branch Nitrofurant 3-0 Yes [id number] 100mg Take 1 [facility]. 2-02 capsule by ity o f [facility] 00:00: mouth in [place] 100 mg 00 the Medical capsule morning Branch and 1 capsule in the evening. nystatin 3-0 Yes [id number] Apply to [facility] 100,000 2-02 area(s) 2 ity of unit/gram 00:00: (two) [place] powder 00 times Medical daily. Branch Nitrofurant 3-0 Yes [id number] 100mg Take 1 [facility]. 2-02 capsule by ity o f [facility] 00:00: mouth in [place] 100 mg 00 the Medical capsule morning Branch and 1 capsule in the evening. nystatin 3-0 Yes [id number] Apply to [facility] 100,000 2-02 area(s) 2 ity of unit/gram 00:00: (two) [place] powder 00 times Medical daily. Branch Nitrofurant 3-0 Yes [id number] 100mg Take 1 [facility]. 2-02 capsule by ity o f [facility] 00:00: mouth in [place] 100 mg 00 the Medical capsule morning Branch and 1 capsule in the evening. nystatin 2023-0 Yes [id number] Apply to [facility] 100,000 2-02 area(s) 2 ity of unit/gram 00:00: (two) [place] powder 00 times Medical daily. Branch Nitrofurant 2023-0 Yes [id number] 100mg Take 1 [facility]. 2-02 capsule by ity o f [facility] 00:00: mouth in [place] 100 mg 00 the Medical capsule morning Branch and 1 capsule in the evening. nystatin 2023-0 Yes [id number] Apply to [facility] 100,000 2-02 area(s) 2 ity of unit/gram 00:00: (two) [place] powder 00 times Medical daily. Branch Nitrofurant 2023-0 Yes [id number] 100mg Take 1 [facility] 2-02 capsule by ity o f [facility] 00:00: mouth in [place] 100 mg 00 the Medical capsule morning Branch and 1 capsule in the evening. nystatin 3-0 Yes [id number] Apply to [facility] 100,000 2-02 area(s) 2 ity of unit/gram 00:00: (two) [place] powder 00 times Medical daily. Branch Nitrofurant 2023-0 Yes [id number] 100mg Take 1 [facility]. 2-02 capsule by ity o f [facility] 00:00: mouth in [place] 100 mg 00 the Medical capsule morning Branch and 1 capsule in the evening. nystatin 3-0 Yes [id number] Apply to [facility] 100,000 2-02 area(s) 2 ity of unit/gram 00:00: (two) [place] powder 00 times Medical daily. Branch Nitrofurant 3-0 Yes [id number] 100mg Take 1 [facility]. 2-02 capsule by ity o f [facility] 00:00: mouth in [place] 100 mg 00 the Medical capsule morning Branch and 1 capsule in the evening. nystatin 2023-0 Yes [id number] Apply to [facility] 100,000 2-02 area(s) 2 ity of unit/gram 00:00: (two) [place] powder 00 times Medical daily. Branch Nitrofurant 2023-0 Yes [id number] 100mg Take 1 [facility] 2-02 capsule by ity o f [facility] 00:00: mouth in [place] 100 mg 00 the Medical capsule morning Branch and 1 capsule in the evening. nystatin 2023-0 Yes [id number] Apply to [facility] 100,000 2-02 area(s) 2 ity of unit/gram 00:00: (two) [place] powder 00 times Medical daily. Branch Nitrofurant 2023-0 Yes [id number] 100mg Take 1 [facility] 2-02 capsule by ity o f [facility] 00:00: mouth in [place] 100 mg 00 the Medical capsule morning Branch and 1 capsule in the evening. nystatin 3-0 Yes [id number] Apply to [facility] 100,000 2-02 area(s) 2 ity of unit/gram 00:00: (two) [place] powder 00 times Medical daily. Branch Nitrofurant 3-0 Yes [id number] 100mg Take 1 [facility] 2-02 capsule by ity o f [facility] 00:00: mouth in [place] 100 mg 00 the Medical capsule morning Branch and 1 capsule in the evening. nystatin 2022-0 Yes [id number] Apply to [facility] 100,000 2-02 area(s) 2 ity of unit/gram 00:00: (two) [place] powder 00 times Medical daily. Branch Nitrofurant 3-0 Yes [id number] 100mg Take 1 [facility] 2-02 capsule by ity o f [facility] 00:00: mouth in [place] 100 mg 00 the Medical capsule morning Branch and 1 capsule in the evening. nystatin 2022-0 Yes [id number] Apply to [facility] 100,000 2-02 area(s) 2 ity of unit/gram 00:00: (two) [place] powder 00 times Medical daily. Branch Nitrofurant 3-0 Yes [id number] 100mg Take 1 [facility] 2-02 capsule by ity o f [facility] 00:00: mouth in [place] 100 mg 00 the Medical capsule morning Branch and 1 capsule in the evening. nystatin 3-0 Yes [id number] Apply to [facility] 100,000 2-02 area(s) 2 ity of unit/gram 00:00: (two) [place] powder 00 times Medical daily. Branch Nitrofurant 3-0 Yes [id number] 100mg Take 1 [facility] 2-02 capsule by ity o f [facility] 00:00: mouth in [place] 100 mg 00 the Medical capsule morning Branch and 1 capsule in the evening. nystatin 2023-0 Yes [id number] Apply to [facility] 100,000 2-02 area(s) 2 ity of unit/gram 00:00: (two) [place] powder 00 times Medical daily. Branch Nitrofurant 2023-0 Yes [id number] 100mg Take 1 [facility] 2-02 capsule by ity o f [facility] 00:00: mouth in [place] 100 mg 00 the Medical capsule morning Branch and 1 capsule in the evening. nystatin 2023-0 Yes [id number] Apply to [facility] 100,000 2-02 area(s) 2 ity of unit/gram 00:00: (two) [place] powder 00 times Medical daily. Branch Nitrofurant 2023-0 Yes [id number] 100mg Take 1 [facility]. 2-02 capsule by ity o f [facility] 00:00: mouth in [place] 100 mg 00 the Medical capsule morning Branch and 1 capsule in the evening. nystatin 3-0 Yes [id number] Apply to [facility] 100,000 2-02 area(s) 2 ity of unit/gram 00:00: (two) [place] powder 00 times Medical daily. Branch Nitrofurant 3-0 Yes [id number] 100mg Take 1 [facility]. 2-02 capsule by ity o f Macrocryst 00:00: mouth in [place] 100 mg 00 the Medical capsule morning Branch and 1 capsule in the evening. nystatin 3-0 Yes [id number] Apply to [facility] 100,000 2-02 area(s) 2 ity of unit/gram 00:00: (two) [place] powder 00 times Medical daily. Branch Nitrofurant 2023-0 Yes [id number] 100mg Take 1 [facility] oin[facility]Nit. 2-02 capsule by ity o f [facility]ryst 00:00: mouth in [place] 100 mg 00 the Medical capsule morning Branch and 1 capsule in the evening. nystatin 2023-0 Yes [id number] Apply to [facility] 100,000 2-02 area(s) 2 ity of unit/gram 00:00: (two) [place] powder 00 times Medical daily. Branch Nitrofurant 2023-0 Yes [id number] 100mg Take 1 [facility]in[facility]Nit. 2-02 capsule by ity o f [facility]ryst 00:00: mouth in [place] 100 mg 00 the Medical capsule morning Branch and 1 capsule in the evening. nystatin 2023-0 Yes [id number] Apply to [facility] 100,000 2-02 area(s) 2 ity of unit/gram 00:00: (two) [place] powder 00 times Medical daily. Branch Nitrofurant 3-0 Yes [id number] 100mg Take 1 [facility]it. 2-02 capsule by ity o f [facility] 00:00: mouth in [place] 100 mg 00 the Medical capsule morning Branch and 1 capsule in the evening. nystatin 3-0 Yes [id number] Apply to [facility] 100,000 2-02 area(s) 2 ity of unit/gram 00:00: (two) [place] powder 00 times Medical daily. Branch nystatin 2022-0 Yes [id number] Apply to [facility] 100,000 2-02 area(s) 2 ity of unit/gram 00:00: (two) [place] powder 00 times Medical daily. Branch nystatin 2022-0 Yes [id number] Apply to [facility] 100,000 2-02 area(s) 2 ity of unit/gram 00:00: (two) [place] powder 00 times Medical daily. Branch nystatin 3-0 Yes [id number] Apply to [facility] 100,000 2-02 area(s) 2 ity of unit/gram 00:00: (two) [place] powder 00 times Medical daily. Branch nystatin 3-0 Yes [id number] Apply to [facility] 100,000 2-02 area(s) 2 ity of unit/gram 00:00: (two) [place] powder 00 times Medical daily. Branch nystatin 3-0 Yes [id number] Apply to [facility] 100,000 2-02 area(s) 2 ity of unit/gram 00:00: (two) [place] powder 00 times Medical daily. Branch nystatin 3-0 Yes [id number] Apply to [facility] 100,000 2-02 area(s) 2 ity of unit/gram 00:00: (two) [place] powder 00 times Medical daily. Branch nystatin 2023-0 Yes [id number] Apply to [facility] 100,000 2-02 area(s) 2 ity of unit/gram 00:00: (two) [place] powder 00 times Medical daily. Branch nystatin 2023-0 Yes [id number] Apply to [facility] 100,000 2-02 area(s) 2 ity of unit/gram 00:00: (two) [place] powder 00 times Medical daily. Branch nystatin 2023-0 Yes [id number] Apply to [facility] 100,000 2-02 area(s) 2 ity of unit/gram 00:00: (two) [place] powder 00 times Medical daily. Branch nystatin 2023-0 Yes [id number] Apply to [facility] 100,000 2-02 area(s) 2 ity of unit/gram 00:00: (two) [place] powder 00 times Medical daily. Branch nystatin 2023-0 Yes [id number] Apply to [facility] 100,000 2-02 area(s) 2 ity of unit/gram 00:00: (two) [place] powder 00 times Medical daily. Branch nystatin 2023-0 Yes [id number] Apply to [facility] 100,000 2-02 area(s) 2 ity of unit/gram 00:00: (two) [place] powder 00 times Medical daily. Branch nystatin 2023-0 Yes [id number] Apply to [facility] 100,000 2-02 area(s) 2 ity of unit/gram 00:00: (two) [place] powder 00 times Medical daily. Branch nystatin 2023-0 Yes [id number] Apply to [facility] 100,000 2-02 area(s) 2 ity of unit/gram 00:00: (two) [place] powder 00 times Medical daily. Branch nystatin 2023-0 Yes [id number] Apply to [facility] 100,000 2-02 area(s) 2 ity of unit/gram 00:00: (two) [place] powder 00 times Medical daily. Branch nystatin 2023-0 Yes [id number] Apply to [facility] 100,000 2-02 area(s) 2 ity of unit/gram 00:00: (two) [place] powder 00 times Medical daily. Branch nystatin 2023-0 Yes [id number] Apply to [facility] 100,000 2-02 area(s) 2 ity of unit/gram 00:00: (two) [place] powder 00 times Medical daily. Branch nystatin 2023-0 Yes [id number] Apply to [facility] 100,000 2-02 area(s) 2 ity of unit/gram 00:00: (two) [place] powder 00 times Medical daily. Branch nystatin 2023-0 Yes [id number] Apply to [facility] 100,000 2-02 area(s) 2 ity of unit/gram 00:00: (two) [place] powder 00 times Medical daily. Branch nystatin 2023-0 Yes [id number] Apply to [facility] 100,000 2-02 area(s) 2 ity of unit/gram 00:00: (two) [place] powder 00 times Medical daily. Branch nystatin 2023-0 Yes [id number] Apply to [facility] 100,000 2-02 area(s) 2 ity of unit/gram 00:00: (two) [place] powder 00 times Medical daily. Branch nystatin 2023-0 Yes [id number] Apply to [facility] 100,000 2-02 area(s) 2 ity of unit/gram 00:00: (two) [place] powder 00 times Medical daily. Branch nystatin 2023-0 Yes [id number] Apply to [facility] 100,000 2-02 area(s) 2 ity of unit/gram 00:00: (two) [place] powder 00 times Medical daily. Branch nystatin 2023-0 Yes [id number] Apply to [facility] 100,000 2-02 area(s) 2 ity of unit/gram 00:00: (two) [place] powder 00 times Medical daily. Branch nystatin 2023-0 Yes [id number] Apply to [facility] 100,000 2-02 area(s) 2 ity of unit/gram 00:00: (two) [place] powder 00 times Medical daily. Branch nystatin 2023-0 Yes [id number] Apply to [facility] 100,000 2-02 area(s) 2 ity of unit/gram 00:00: (two) [place] powder 00 times Medical daily. Branch nystatin 2023-0 Yes [id number] Apply to [facility] 100,000 2-02 area(s) 2 ity of unit/gram 00:00: (two) [place] powder 00 times Medical daily. Branch nystatin 2023-0 Yes [id number] Apply to [facility] 100,000 2-02 area(s) 2 ity of unit/gram 00:00: (two) [place] powder 00 times Medical daily. Branch nystatin 2023-0 Yes [id number] Apply to [facility] 100,000 2-02 area(s) 2 ity of unit/gram 00:00: (two) [place] powder 00 times Medical daily. Branch nystatin 2023-0 Yes [id number] Apply to [facility] 100,000 2-02 area(s) 2 ity of unit/gram 00:00: (two) [place] powder 00 times Medical daily. Branch nystatin 2023-0 Yes [id number] Apply to [facility] 100,000 2-02 area(s) 2 ity of unit/gram 00:00: (two) [place] powder 00 times Medical daily. Branch nystatin 2023-0 Yes [id number] Apply to [facility] 100,000 2-02 area(s) 2 ity of unit/gram 00:00: (two) [place] powder 00 times Medical daily. Branch nystatin 2023-0 Yes [id number] Apply to [facility] 100,000 2-02 area(s) 2 ity of unit/gram 00:00: (two) [place] powder 00 times Medical daily. Branch nystatin 2023-0 Yes [id number] Apply to [facility] 100,000 2-02 area(s) 2 ity of unit/gram 00:00: (two) [place] powder 00 times Medical daily. Branch nystatin 2023-0 Yes [id number] Apply to [facility] 100,000 2-02 area(s) 2 ity of unit/gram 00:00: (two) [place] powder 00 times Medical daily. Branch nystatin 2023-0 Yes [id number] Apply to [facility] 100,000 2-02 area(s) 2 ity of unit/gram 00:00: (two) [place] powder 00 times Medical daily. Branch nystatin 2023-0 Yes [id number] Apply to [facility] 100,000 2-02 area(s) 2 ity of unit/gram 00:00: (two) [place] powder 00 times Medical daily. Branch nystatin 2023-0 Yes [id number] Apply to [facility] 100,000 2-02 area(s) 2 ity of unit/gram 00:00: (two) [place] powder 00 times Medical daily. Branch nystatin 2023-0 Yes [id number] Apply to [facility] 100,000 2-02 area(s) 2 ity of unit/gram 00:00: (two) [place] powder 00 times Medical daily. Branch nystatin 2023-0 Yes [id number] Apply to [facility] 100,000 2-02 area(s) 2 ity of unit/gram 00:00: (two) [place] powder 00 times Medical daily. Branch nystatin 2023-0 Yes [id number] Apply to [facility] 100,000 2-02 area(s) 2 ity of unit/gram 00:00: (two) [place] powder 00 times Medical daily. Branch nystatin 2023-0 Yes [id number] Apply to [facility] 100,000 2-02 area(s) 2 ity of unit/gram 00:00: (two) [place] powder 00 times Medical daily. Branch nystatin 2023-0 Yes [id number] Apply to [facility] 100,000 2-02 area(s) 2 ity of unit/gram 00:00: (two) [place] powder 00 times Medical daily. Branch nystatin 2023-0 Yes [id number] Apply to [facility] 100,000 2-02 area(s) 2 ity of unit/gram 00:00: (two) [place] powder 00 times Medical daily. Branch nystatin 2023-0 Yes [id number] Apply to [facility] 100,000 2-02 area(s) 2 ity of unit/gram 00:00: (two) [place] powder 00 times Medical daily. Branch nystatin 2023-0 Yes [id number] Apply to [facility] 100,000 2-02 area(s) 2 ity of unit/gram 00:00: (two) [place] powder 00 times Medical daily. Branch nystatin 2023-0 Yes [id number] Apply to [facility] 100,000 2-02 area(s) 2 ity of unit/gram 00:00: (two) [place] powder 00 times Medical daily. Branch nystatin 2023-0 Yes [id number] Apply to [facility] 100,000 2-02 area(s) 2 ity of unit/gram 00:00: (two) [place] powder 00 times Medical daily. Branch nystatin 2023-0 Yes [id number] Apply to [facility] 100,000 2-02 area(s) 2 ity of unit/gram 00:00: (two) [place] powder 00 times Medical daily. Branch nystatin 2023-0 Yes [id number] Apply to [facility] 100,000 2-02 area(s) 2 ity of unit/gram 00:00: (two) [place] powder 00 times Medical daily. Branch nystatin 2023-0 Yes [id number] Apply to [facility] 100,000 2-02 area(s) 2 ity of unit/gram 00:00: (two) [place] powder 00 times Medical daily. Branch nystatin 2023-0 Yes [id number] Apply to [facility] 100,000 2-02 area(s) 2 ity of unit/gram 00:00: (two) [place] powder 00 times Medical daily. Branch nystatin 2023-0 Yes [id number] Apply to [facility] 100,000 2-02 area(s) 2 ity of unit/gram 00:00: (two) [place] powder 00 times Medical daily. Branch nystatin 2023-0 Yes [id number] Apply to [facility] 100,000 2-02 area(s) 2 ity of unit/gram 00:00: (two) [place] powder 00 times Medical daily. Branch nystatin 2023-0 Yes [id number] Apply to [facility] 100,000 2-02 area(s) 2 ity of unit/gram 00:00: (two) [place] powder 00 times Medical daily. Branch nystatin 2023-0 Yes [id number] Apply to [facility] 100,000 2-02 area(s) 2 ity of unit/gram 00:00: (two) [place] powder 00 times Medical daily. Branch nystatin 2023-0 Yes [id number] Apply to [facility] 100,000 2-02 area(s) 2 ity of unit/gram 00:00: (two) [place] powder 00 times Medical daily. Branch nystatin 2023-0 Yes [id number] Apply to [facility] 100,000 2-02 area(s) 2 ity of unit/gram 00:00: (two) [place] powder 00 times Medical daily. Branch nystatin 2023-0 Yes [id number] Apply to [facility] 100,000 2-02 area(s) 2 ity of unit/gram 00:00: (two) [place] powder 00 times Medical daily. Branch nystatin 2023-0 Yes [id number] Apply to [facility] 100,000 2-02 area(s) 2 ity of unit/gram 00:00: (two) [place] powder 00 times Medical daily. Branch nystatin 3-0 Yes [id number] Apply to [facility] 100,000 2-02 area(s) 2 ity of unit/gram 00:00: (two) [place] powder 00 times Medical daily. Branch nystatin 3-0 Yes [id number] Apply to [facility] 100,000 2-02 area(s) 2 ity of unit/gram 00:00: (two) [place] powder 00 times Medical daily. Branch nystatin 3-0 Yes [id number] Apply to [facility] 100,000 2-02 area(s) 2 ity of unit/gram 00:00: (two) [place] powder 00 times Medical daily. Branch nystatin 3-0 Yes [id number] Apply to [facility] 100,000 2-02 area(s) 2 ity of unit/gram 00:00: (two) [place] powder 00 times Medical daily. Branch Nitrofurant 2022-0 2022- No [id number] 100mg Take 1 [facility] oin&Nit. 05-04 capsule by ity of Macrocryst 00:00: 00:00 mouth in [place] 100 mg 00 :00 the Medical capsule morning Branch and 1 capsule in the evening. Nitrofurant 2022-0 2022- No [id number] 100mg Take 1 [facility] oin&Nit. 05-0423 capsule by ity of Macrocryst 00:00: 00:00 mouth in [place] 100 mg 00 :00 the Medical capsule morning Branch and 1 capsule in the evening. proMETHazin 0 Yes [id number] 25mg Insert 1 [facility] e 25 mg 1-31 Suppositor ity of suppository 00:00: y [place] 00 rectum Medical every 4 Branch (four) hours as needed for Nausea and Vomiting (N/V) for up to 30 doses. proCHLORper 0 Yes [id number] 10mg Take 1 [facility] azine 10 mg 1-31 tablet by ity of tablet 00:00: mouth [place] 00 every 6 Medical (six) Branch hours as needed for Nausea and Vomiting (N/V) for up to 30 doses. proMETHazin 2022-0 Yes [id number] 25mg Insert 1 [facility] e 25 mg 1-31 Suppositor ity of suppository 00:00: y into [place] 00 rectum Medical every 4 Branch (four) hours as needed for Nausea and Vomiting (N/V) for up to 30 doses. proCHLORper 3-0 Yes [id number] 10mg Take 1 [facility] azine 10 mg 1-31 tablet by ity of tablet 00:00: mouth [place] 00 every 6 Medical (six) Branch hours as needed for Nausea and Vomiting (N/V) for up to 30 doses. proMETHazin 3-0 Yes [id number] 25mg Insert 1 [facility] e 25 mg 1-31 Suppositor ity of suppository 00:00: y into [place] 00 rectum Medical every 4 Branch (four) hours as needed for Nausea and Vomiting (N/V) for up to 30 doses. proCHLORper 2022-0 Yes [id number] 10mg Take 1 [facility] azine 10 mg 1-31 tablet by ity of tablet 00:00: mouth [place] 00 every 6 Medical (six) Branch hours as needed for Nausea and Vomiting (N/V) for up to 30 doses. proMETHazin 2022-0 Yes [id number] 25mg Insert 1 [facility] e 25 mg 1-31 Suppositor ity of suppository 00:00: y into [place] 00 rectum Medical every 4 Branch (four) hours as needed for Nausea and Vomiting (N/V) for up to 30 doses. proCHLORper 2022-0 Yes [id number] 10mg Take 1 [facility] azine 10 mg 1-31 tablet by ity of tablet 00:00: mouth [place] 00 every 6 Medical (six) Branch hours as needed for Nausea and Vomiting (N/V) for up to 30 doses. proMETHazin 3-0 Yes [id number] 25mg Insert 1 [facility] e 25 mg 1-31 Suppositor ity of suppository 00:00: y into [place] 00 rectum Medical every 4 Branch (four) hours as needed for Nausea and Vomiting (N/V) for up to 30 doses. proCHLORper 3-0 Yes [id number] 10mg Take 1 [facility] azine 10 mg 1-31 tablet by ity of tablet 00:00: mouth [place] 00 every 6 Medical (six) Branch hours as needed for Nausea and Vomiting (N/V) for up to 30 doses. proMETHazin 2023-0 Yes [id number] 25mg Insert 1 [facility] e 25 mg 1-31 Suppositor ity of suppository 00:00: y into [place] 00 rectum Medical every 4 Branch (four) hours as needed for Nausea and Vomiting (N/V) for up to 30 doses. proCHLORper 2022-0 Yes [id number] 10mg Take 1 [facility] azine 10 mg 1-31 tablet by ity of tablet 00:00: mouth [place] 00 every 6 Medical (six) Branch hours as needed for Nausea and Vomiting (N/V) for up to 30 doses. proMETHazin 2022-0 Yes [id number] 25mg Insert 1 [facility] e 25 mg 1-31 Suppositor ity of suppository 00:00: y into [place] 00 rectum Medical every 4 Branch (four) hours as needed for Nausea and Vomiting (N/V) for up to 30 doses. proCHLORper 2022-0 Yes [id number] 10mg Take 1 [facility] azine 10 mg 1-31 tablet by ity of tablet 00:00: mouth [place] 00 every 6 Medical (six) Branch hours as needed for Nausea and Vomiting (N/V) for up to 30 doses. proMETHazin 2022-0 Yes [id number] 25mg Insert 1 [facility] e 25 mg 1-31 Suppositor ity of suppository 00:00: y into [place] 00 rectum Medical every 4 Branch (four) hours as needed for Nausea and Vomiting (N/V) for up to 30 doses. proCHLORper 2022-0 Yes [id number] 10mg Take 1 [facility] azine 10 mg 1-31 tablet by ity of tablet 00:00: mouth [place] 00 every 6 Medical (six) Branch hours as needed for Nausea and Vomiting (N/V) for up to 30 doses. proMETHazin 2022-0 Yes [id number] 25mg Insert 1 [facility] e 25 mg 1-31 Suppositor ity of suppository 00:00: y into [place] 00 rectum Medical every 4 Branch (four) hours as needed for Nausea and Vomiting (N/V) for up to 30 doses. proCHLORper 3-0 Yes [id number] 10mg Take 1 [facility] azine 10 mg 1-31 tablet by ity of tablet 00:00: mouth [place] 00 every 6 Medical (six) Branch hours as needed for Nausea and Vomiting (N/V) for up to 30 doses. proMETHazin 3-0 Yes [id number] 25mg Insert 1 [facility] e 25 mg 1-31 Suppositor ity of suppository 00:00: y into [place] 00 rectum Medical every 4 Branch (four) hours as needed for Nausea and Vomiting (N/V) for up to 30 doses. proCHLORper 3-0 Yes [id number] 10mg Take 1 [facility] azine 10 mg 1-31 tablet by ity of tablet 00:00: mouth [place] 00 every 6 Medical (six) Branch hours as needed for Nausea and Vomiting (N/V) for up to 30 doses. proMETHazin 3-0 Yes [id number] 25mg Insert 1 [facility] e 25 mg 1-31 Suppositor ity of suppository 00:00: y into [place] 00 rectum Medical every 4 Branch (four) hours as needed for Nausea and Vomiting (N/V) for up to 30 doses. proCHLORper 2022-0 Yes [id number] 10mg Take 1 [facility] azine 10 mg 1-31 tablet by ity of tablet 00:00: mouth [place] 00 every 6 Medical (six) Branch hours as needed for Nausea and Vomiting (N/V) for up to 30 doses. proMETHazin 3-0 Yes [id number] 25mg Insert 1 [facility] e 25 mg 1-31 Suppositor ity of suppository 00:00: y into [place] 00 rectum Medical every 4 Branch (four) hours as needed for Nausea and Vomiting (N/V) for up to 30 doses. proCHLORper 3-0 Yes [id number] 10mg Take 1 [facility] azine 10 mg 1-31 tablet by ity of tablet 00:00: mouth [place] 00 every 6 Medical (six) Branch hours as needed for Nausea and Vomiting (N/V) for up to 30 doses. proMETHazin 3-0 Yes [id number] 25mg Insert 1 [facility] e 25 mg 1-31 Suppositor ity of suppository 00:00: y into [place] 00 rectum Medical every 4 Branch (four) hours as needed for Nausea and Vomiting (N/V) for up to 30 doses. proCHLORper 3-0 Yes [id number] 10mg Take 1 [facility] azine 10 mg 1-31 tablet by ity of tablet 00:00: mouth [place] 00 every 6 Medical (six) Branch hours as needed for Nausea and Vomiting (N/V) for up to 30 doses. proMETHazin 2022-0 Yes [id number] 25mg Insert 1 [facility] e 25 mg 1-31 Suppositor ity of suppository 00:00: y into [place] 00 rectum Medical every 4 Branch (four) hours as needed for Nausea and Vomiting (N/V) for up to 30 doses. proCHLORper 2022-0 Yes [id number] 10mg Take 1 [facility] azine 10 mg 1-31 tablet by ity of tablet 00:00: mouth [place] 00 every 6 Medical (six) Branch hours as needed for Nausea and Vomiting (N/V) for up to 30 doses. proMETHazin 2022-0 Yes [id number] 25mg Insert 1 [facility] e 25 mg 1-31 Suppositor ity of suppository 00:00: y into [place] 00 rectum Medical every 4 Branch (four) hours as needed for Nausea and Vomiting (N/V) for up to 30 doses. proCHLORper 2022-0 Yes [id number] 10mg Take 1 [facility] azine 10 mg 1-31 tablet by ity of tablet 00:00: mouth [place] 00 every 6 Medical (six) Branch hours as needed for Nausea and Vomiting (N/V) for up to 30 doses. proMETHazin 2022-0 Yes [id number] 25mg Insert 1 [facility] e 25 mg 1-31 Suppositor ity of suppository 00:00: y into [place] 00 rectum Medical every 4 Branch (four) hours as needed for Nausea and Vomiting (N/V) for up to 30 doses. proCHLORper 2022-0 Yes [id number] 10mg Take 1 [facility] azine 10 mg 1-31 tablet by ity of tablet 00:00: mouth [place] 00 every 6 Medical (six) Branch hours as needed for Nausea and Vomiting (N/V) for up to 30 doses. proMETHazin 2022-0 Yes [id number] 25mg Insert 1 [facility] e 25 mg 1-31 Suppositor ity of suppository 00:00: y into [place] 00 rectum Medical every 4 Branch (four) hours as needed for Nausea and Vomiting (N/V) for up to 30 doses. proCHLORper 2023-0 Yes [id number] 10mg Take 1 [facility] azine 10 mg 1-31 tablet by ity of tablet 00:00: mouth [place] 00 every 6 Medical (six) Branch hours as needed for Nausea and Vomiting (N/V) for up to 30 doses. proMETHazin 3-0 Yes [id number] 25mg Insert 1 [facility] e 25 mg 1-31 Suppositor ity of suppository 00:00: y into [place] 00 rectum Medical every 4 Branch (four) hours as needed for Nausea and Vomiting (N/V) for up to 30 doses. proCHLORper 2022-0 Yes [id number] 10mg Take 1 [facility] azine 10 mg 1-31 tablet by ity of tablet 00:00: mouth [place] 00 every 6 Medical (six) Branch hours as needed for Nausea and Vomiting (N/V) for up to 30 doses. proMETHazin 2022-0 Yes [id number] 25mg Insert 1 [facility] e 25 mg 1-31 Suppositor ity of suppository 00:00: y [facility] every 4 Branch (four) hours as needed for Nausea and Vomiting (N/V) for up to 30 doses. proCHLORper 2022-0 Yes [id number] 10mg Take 1 [facility] azine 10 mg 1-31 tablet by ity of tablet 00:00: mouth [place] 00 every 6 Medical (six) Branch hours as needed for Nausea and Vomiting (N/V) for up to 30 doses. proMETHazin 2022-0 Yes [id number] 25mg Insert 1 [facility] e 25 mg 1-31 Suppositor ity of suppository 00:00: y into [place] 00 rectum Medical every 4 Branch (four) hours as needed for Nausea and Vomiting (N/V) for up to 30 doses. proCHLORper 3-0 Yes [id number] 10mg Take 1 [facility] azine 10 mg 1-31 tablet by ity of tablet 00:00: mouth [place] 00 every 6 Medical (six) Branch hours as needed for Nausea and Vomiting (N/V) for up to 30 doses. proMETHazin 3-0 Yes [id number] 25mg Insert 1 [facility] e 25 mg 1-31 Suppositor ity of suppository 00:00: y into [place] 00 rectum Medical every 4 Branch (four) hours as needed for Nausea and Vomiting (N/V) for up to 30 doses. proCHLORper 2023-0 Yes [id number] 10mg Take 1 [facility] azine 10 mg 1-31 tablet by ity of tablet 00:00: mouth [place] 00 every 6 Medical (six) Branch hours as needed for Nausea and Vomiting (N/V) for up to 30 doses. proMETHazin 3-0 Yes [id number] 25mg Insert 1 [facility] e 25 mg 1-31 Suppositor ity of suppository 00:00: y into [place] 00 rectum Medical every 4 Branch (four) hours as needed for Nausea and Vomiting (N/V) for up to 30 doses. proCHLORper 3-0 Yes [id number] 10mg Take 1 [facility] azine 10 mg 1-31 tablet by ity of tablet 00:00: mouth [place] 00 every 6 Medical (six) Branch hours as needed for Nausea and Vomiting (N/V) for up to 30 doses. proMETHazin 3-0 Yes [id number] 25mg Insert 1 [facility] e 25 mg 1-31 Suppositor ity of suppository 00:00: y into [place] 00 rectum Medical every 4 Branch (four) hours as needed for Nausea and Vomiting (N/V) for up to 30 doses. proCHLORper 3-0 Yes [id number] 10mg Take 1 [facility] azine 10 mg 1-31 tablet by ity of tablet 00:00: mouth [place] 00 every 6 Medical (six) Branch hours as needed for Nausea and Vomiting (N/V) for up to 30 doses. proMETHazin 3-0 Yes [id number] 25mg Insert 1 [facility] e 25 mg 1-31 Suppositor ity of suppository 00:00: y into [place] 00 rectum Medical every 4 Branch (four) hours as needed for Nausea and Vomiting (N/V) for up to 30 doses. proCHLORper 3-0 Yes [id number] 10mg Take 1 [facility] azine 10 mg 1-31 tablet by ity of tablet 00:00: mouth [place] 00 every 6 Medical (six) Branch hours as needed for Nausea and Vomiting (N/V) for up to 30 doses. proMETHazin 3-0 Yes [id number] 25mg Insert 1 [facility] e 25 mg 1-31 Suppositor ity of suppository 00:00: y into [place] 00 rectum Medical every 4 Branch (four) hours as needed for Nausea and Vomiting (N/V) for up to 30 doses. proCHLORper 3-0 Yes [id number] 10mg Take 1 [facility] azine 10 mg 1-31 tablet by ity of tablet 00:00: mouth [place] 00 every 6 Medical (six) Branch hours as needed for Nausea and Vomiting (N/V) for up to 30 doses. proMETHazin 3-0 Yes [id number] 25mg Insert 1 [facility] e 25 mg 1-31 Suppositor ity of suppository 00:00: y into [facility] rectum Medical every 4 Branch (four) hours as needed for Nausea and Vomiting (N/V) for up to 30 doses. proCHLORper 3-0 Yes [id number] 10mg Take 1 [facility] azine 10 mg 1-31 tablet by ity of tablet 00:00: mouth [place] 00 every 6 Medical (six) Branch hours as needed for Nausea and Vomiting (N/V) for up to 30 doses. proMETHazin 3-0 Yes [id number] 25mg Insert 1 [facility] e 25 mg 1-31 Suppositor ity of suppository 00:00: y into [facility] rectum Medical every 4 Branch (four) hours as needed for Nausea and Vomiting (N/V) for up to 30 doses. proCHLORper 3-0 Yes [id number] 10mg Take 1 [facility] azine 10 mg 1-31 tablet by ity of tablet 00:00: mouth [place] 00 every 6 Medical (six) Branch hours as needed for Nausea and Vomiting (N/V) for up to 30 doses. proMETHazin 3-0 Yes [id number] 25mg Insert 1 [facility] e 25 mg 1-31 Suppositor ity of suppository 00:00: y into [place] 00 rectum Medical every 4 Branch (four) hours as needed for Nausea and Vomiting (N/V) for up to 30 doses. proCHLORper 2023-0 Yes [id number] 10mg Take 1 [facility] azine 10 mg 1-31 tablet by ity of tablet 00:00: mouth [place] 00 every 6 Medical (six) Branch hours as needed for Nausea and Vomiting (N/V) for up to 30 doses. proMETHazin 3-0 Yes [id number] 25mg Insert 1 [facility] e 25 mg 1-31 Suppositor ity of suppository 00:00: y into [place] 00 rectum Medical every 4 Branch (four) hours as needed for Nausea and Vomiting (N/V) for up to 30 doses. proCHLORper 3-0 Yes [id number] 10mg Take 1 [facility] azine 10 mg 1-31 tablet by ity of tablet 00:00: mouth [place] 00 every 6 Medical (six) Branch hours as needed for Nausea and Vomiting (N/V) for up to 30 doses. proMETHazin 2022-0 Yes [id number] 25mg Insert 1 [facility] e 25 mg 1-31 Suppositor ity of suppository 00:00: y into [place] 00 rectum Medical every 4 Branch (four) hours as needed for Nausea and Vomiting (N/V) for up to 30 doses. proCHLORper 2022-0 Yes [id number] 10mg Take 1 [facility] 10 mg 1-31 tablet by [facility] of tablet 00:00: mouth [place] 00 every 6 Medical (six) Branch hours as needed for Nausea and Vomiting (N/V) for up to 30 doses. proMETHazin 2022-0 Yes [id number] 25mg Insert 1 [facility] 25 mg 1-31 [facility] suppository 00:00: [place] 00 rectum [facility] every 4 Branch (four) hours as needed for Nausea and Vomiting (N/V) for up to 30 doses. proCHLORper 3-0 Yes [id number] 10mg Take 1 [facility] 10 mg 1-31 tablet by [facility] of tablet 00:00: mouth [place] 00 every 6 Medical (six) Branch hours as needed for Nausea and Vomiting (N/V) for up to 30 doses. proMETHazin 3-0 Yes [id number] 25mg Insert 1 [facility] 25 mg 1-31 [facility] suppository 00:00: y into [place] 00 rect[facility] every 4 Branch (four) hours as needed for Nausea and Vomiting (N/V) for up to 30 doses. proCHLORper 3-0 Yes [id number] 10mg Take 1 [facility] 10 mg 1-31 tablet by [facility] of tablet 00:00: mouth [place] 00 every 6 Medical (six) Branch hours as needed for Nausea and Vomiting (N/V) for up to 30 doses. proMETHazin 3-0 Yes [id number] 25mg Insert 1 [facility] 25 mg 1-31 [facility] suppository 00:00: y into [place] 00 rectum [facility] every 4 Branch (four) hours as needed for Nausea and Vomiting (N/V) for up to 30 doses. proCHLORper 2022-0 Yes [id number] 10mg Take 1 [facility] 10 mg 1-31 tablet by [facility] of tablet 00:00: mouth [place] 00 every 6 Medical (six) Branch hours as needed for Nausea and Vomiting (N/V) for up to 30 doses. proMETHazin 3-0 Yes [id number] 25mg Insert 1 [facility] 25 mg 1-31 [facility] suppository 00:00: y into [place] 00 rectum [facility] every 4 Branch (four) hours as needed for Nausea and Vomiting (N/V) for up to 30 doses. proCHLORper 2022-0 Yes [id number] 10mg Take 1 [facility] 10 mg 1-31 tablet by [facility] of tablet 00:00: mouth [place] 00 every 6 Medical (six) Branch hours as needed for Nausea and Vomiting (N/V) for up to 30 doses. proMETHazin 2022-0 Yes [id number] 25mg Insert 1 [facility] 25 mg 1-31 [facility] suppository 00:00: y into [place] 00 rectum [facility] every 4 Branch (four) hours as needed for Nausea and Vomiting (N/V) for up to 30 doses. proCHLORper 3-0 Yes [id number] 10mg Take 1 [facility] 10 mg 1-31 tablet by [facility] of tablet 00:00: mouth [place] 00 every 6 Medical (six) Branch hours as needed for Nausea and Vomiting (N/V) for up to 30 doses. proMETHazin 3-0 Yes [id number] 25mg Insert 1 [facility] 25 mg 1-31 [facility] suppository 00:00: y into [place] 00 rectum [facility] every 4 Branch (four) hours as needed for Nausea and Vomiting (N/V) for up to 30 doses. proCHLORper 2023-0 Yes [id number] 10mg Take 1 [facility] 10 mg 1-31 tablet by [facility] of tablet 00:00: mouth [place] 00 every 6 Medical (six) Branch hours as needed for Nausea and Vomiting (N/V) for up to 30 doses. proMETHazin 2022-0 Yes [id number] 25mg Insert 1 [facility] 25 mg 1-31 Supp[facility] suppository 00:00: y into [place] 00 rectum [facility] every 4 Branch (four) hours as needed for Nausea and Vomiting (N/V) for up to 30 doses. proCHLORper 2022-0 Yes [id number] 10mg Take 1 [facility] 10 mg 1-31 tablet by it[facility] of tablet 00:00: mouth [place] 00 every 6 Medical (six) Branch hours as needed for Nausea and Vomiting (N/V) for up to 30 doses. proMETHazin 2022-0 Yes [id number] 25mg Insert 1 [facility] 25 mg 1-31 Suppositor [facility] of suppository 00:00: y into [facility] rectum Medical every 4 Branch (four) hours as needed for Nausea and Vomiting (N/V) for up to 30 doses. proCHLORper 2022-0 Yes [id number] 10mg Take 1 [facility] azine 10 mg 1-31 tablet by ity of tablet 00:00: mouth [place] 00 every 6 Medical (six) Branch hours as needed for Nausea and Vomiting (N/V) for up to 30 doses. proMETHazin 2022-0 Yes [id number] 25mg Insert 1 [facility] 25 mg 1-31 Suppositor [facility] of suppository 00:00: y into [facility] 00 rectum Medical every 4 Branch (four) hours as needed for Nausea and Vomiting (N/V) for up to 30 doses. proCHLORper 2022-0 Yes [id number] 10mg Take 1 [facility]ine 10 mg 1-31 tablet by ity of tablet 00:00: mouth [place] 00 every 6 Medical (six) Branch hours as needed for Nausea and Vomiting (N/V) for up to 30 doses. proMETHazin 2022-0 Yes [id number] 25mg Insert 1 [facility] 25 mg 1-31 Suppositor [facility] suppository 00:00: y into [place] 00 rectum Medical every 4 Branch (four) hours as needed for Nausea and Vomiting (N/V) for up to 30 doses. proCHLORper 3-0 Yes [id number] 10mg Take 1 [facility]ine 10 mg 1-31 tablet by ity of tablet 00:00: mouth [place] 00 every 6 Medical (six) Branch hours as needed for Nausea and Vomiting (N/V) for up to 30 doses. proMETHazin 3-0 Yes [id number] 25mg Insert 1 [facility] 25 mg 1-31 Suppositor [facility] of suppository 00:00: y into [place] 00 rectum [facility] every 4 Branch (four) hours as needed for Nausea and Vomiting (N/V) for up to 30 doses. proCHLORper 2022-0 Yes [id number] 10mg Take 1 [facility]ine 10 mg 1-31 tablet by ity of tablet 00:00: mouth [place] 00 every 6 Medical (six) Branch hours as needed for Nausea and Vomiting (N/V) for up to 30 doses. proMETHazin 2022-0 Yes [id number] 25mg Insert 1 [facility] 25 mg 1-31 Suppositor [facility] of suppository 00:00: y into [place] 00 rectum [facility] every 4 Branch (four) hours as needed for Nausea and Vomiting (N/V) for up to 30 doses. proCHLORper 2022-0 Yes [id number] 10mg Take 1 [facility] azine 10 mg 1-31 tablet by ity of tablet 00:00: mouth [place] 00 every 6 Medical (six) Branch hours as needed for Nausea and Vomiting (N/V) for up to 30 doses. proMETHazin 3-0 Yes [id number] 25mg Insert 1 [facility] 25 mg 1-31 Suppositor [facility] of suppository 00:00: y into [place] 00 rectum [facility] every 4 Branch (four) hours as needed for Nausea and Vomiting (N/V) for up to 30 doses. proCHLORper 3-0 Yes [id number] 10mg Take 1 [facility] azine 10 mg 1-31 tablet by ity of tablet 00:00: mouth [place] 00 every 6 Medical (six) Branch hours as needed for Nausea and Vomiting (N/V) for up to 30 doses. proMETHazin 3-0 Yes [id number] 25mg Insert 1 [facility] 25 mg 1-31 Suppositor [facility] of suppository 00:00: y into [place] 00 rectum Medical every 4 Branch (four) hours as needed for Nausea and Vomiting (N/V) for up to 30 doses. proCHLORper 3-0 Yes [id number] 10mg Take 1 [facility] azine 10 mg 1-31 tablet by ity of tablet 00:00: mouth [place] 00 every 6 Medical (six) Branch hours as needed for Nausea and Vomiting (N/V) for up to 30 doses. proMETHazin 2022-0 Yes [id number] 25mg Insert 1 [facility] 25 mg 1-31 Suppositor [facility] of suppository 00:00: y into [place] 00 rectum Medical every 4 Branch (four) hours as needed for Nausea and Vomiting (N/V) for up to 30 doses. proCHLORper 2022-0 Yes [id number] 10mg Take 1 [facility] azine 10 mg 1-31 tablet by ity of tablet 00:00: mouth [place] 00 every 6 Medical (six) Branch hours as needed for Nausea and Vomiting (N/V) for up to 30 doses. proMETHazin 2022-0 Yes [id number] 25mg Insert 1 [facility] 25 mg 1-31 Suppositor it[facility] of suppository 00:00: y into [place] 00 rectum Medical every 4 Branch (four) hours as needed for Nausea and Vomiting (N/V) for up to 30 doses. proCHLORper 2022-0 Yes [id number] 10mg Take 1 [facility] azine 10 mg 1-31 tablet by ity of tablet 00:00: mouth [place] 00 every 6 Medical (six) Branch hours as needed for Nausea and Vomiting (N/V) for up to 30 doses. proMETHazin 3-0 Yes [id number] 25mg Insert 1 [facility] 25 mg 1-31 Suppositor it[facility] of suppository 00:00: y into [place] 00 rectum Medical every 4 Branch (four) hours as needed for Nausea and Vomiting (N/V) for up to 30 doses. proCHLORper 2022-0 Yes [id number] 10mg Take 1 [facility]ine 10 mg 1-31 tablet by ity of tablet 00:00: mouth [place] 00 every 6 Medical (six) Branch hours as needed for Nausea and Vomiting (N/V) for up to 30 doses. proMETHazin 3-0 Yes [id number] 25mg Insert 1 [facility] 25 mg 1-31 Suppositor [facility] of suppository 00:00: y into [place] 00 rectum Medical every 4 Branch (four) hours as needed for Nausea and Vomiting (N/V) for up to 30 doses. proCHLORper 3-0 Yes [id number] 10mg Take 1 [facility]ine 10 mg 1-31 tablet by ity of tablet 00:00: mouth [place] 00 every 6 Medical (six) Branch hours as needed for Nausea and Vomiting (N/V) for up to 30 doses. proMETHazin 2022-0 Yes [id number] 25mg Insert 1 [facility] 25 mg 1-31 Suppositor it[facility] of suppository 00:00: y into [place] 00 rectum Medical every 4 Branch (four) hours as needed for Nausea and Vomiting (N/V) for up to 30 doses. proCHLORper 2022-0 Yes [id number] 10mg Take 1 [facility] azine 10 mg 1-31 tablet by ity of tablet 00:00: mouth [place] 00 every 6 Medical (six) Branch hours as needed for Nausea and Vomiting (N/V) for up to 30 doses. proMETHazin 2022-0 Yes [id number] 25mg Insert 1 [facility] 25 mg 1-31 Suppositor it[facility] of suppository 00:00: y into [place] 00 rectum Medical every 4 Branch (four) hours as needed for Nausea and Vomiting (N/V) for up to 30 doses. proCHLORper 2022-0 Yes [id number] 10mg Take 1 [facility] azine 10 mg 1-31 tablet by ity of tablet 00:00: mouth [place] 00 every 6 Medical (six) Branch hours as needed for Nausea and Vomiting (N/V) for up to 30 doses. proMETHazin 3-0 Yes [id number] 25mg Insert 1 [facility] e 25 mg 1-31 Suppositor ity of suppository 00:00: y into [place] 00 rectum Medical every 4 Branch (four) hours as needed for Nausea and Vomiting (N/V) for up to 30 doses. proCHLORper 3-0 Yes [id number] 10mg Take 1 [facility] azine 10 mg 1-31 tablet by ity of tablet 00:00: mouth [place] 00 every 6 Medical (six) Branch hours as needed for Nausea and Vomiting (N/V) for up to 30 doses. proMETHazin 2023-0 Yes [id number] 25mg Insert 1 [facility] e 25 mg 1-31 Suppositor ity of suppository 00:00: y into [place] 00 rectum Medical every 4 Branch (four) hours as needed for Nausea and Vomiting (N/V) for up to 30 doses. proCHLORper 3-0 Yes [id number] 10mg Take 1 [facility] azine 10 mg 1-31 tablet by ity of tablet 00:00: mouth [place] 00 every 6 Medical (six) Branch hours as needed for Nausea and Vomiting (N/V) for up to 30 doses. proMETHazin 3-0 Yes [id number] 25mg Insert 1 [facility] e 25 mg 1-31 Suppositor ity of suppository 00:00: y into [place] 00 rectum Medical every 4 Branch (four) hours as needed for Nausea and Vomiting (N/V) for up to 30 doses. proCHLORper 3-0 Yes [id number] 10mg Take 1 [facility] azine 10 mg 1-31 tablet by ity of tablet 00:00: mouth [place] 00 every 6 Medical (six) Branch hours as needed for Nausea and Vomiting (N/V) for up to 30 doses. proMETHazin 3-0 Yes [id number] 25mg Insert 1 [facility] 25 mg 1-31 Suppositor ity of suppository 00:00: y into [place] 00 rectum Medical every 4 Branch (four) hours as needed for Nausea and Vomiting (N/V) for up to 30 doses. proCHLORper 3-0 Yes [id number] 10mg Take 1 [facility] azine 10 mg 1-31 tablet by ity of tablet 00:00: mouth [place] 00 every 6 Medical (six) Branch hours as needed for Nausea and Vomiting (N/V) for up to 30 doses. proMETHazin 3-0 Yes [id number] 25mg Insert 1 [facility] e 25 mg 1-31 Suppositor ity of suppository 00:00: y into [place] 00 rectum Medical every 4 Branch (four) hours as needed for Nausea and Vomiting (N/V) for up to 30 doses. proCHLORper 2023-0 Yes [id number] 10mg Take 1 [facility] azine 10 mg 1-31 tablet by ity of tablet 00:00: mouth [place] 00 every 6 Medical (six) Branch hours as needed for Nausea and Vomiting (N/V) for up to 30 doses. proMETHazin 3-0 Yes [id number] 25mg Insert 1 [facility] e 25 mg 1-31 Suppositor ity of suppository 00:00: y into [place] 00 rectum Medical every 4 Branch (four) hours as needed for Nausea and Vomiting (N/V) for up to 30 doses. proCHLORper 2022-0 Yes [id number] 10mg Take 1 [facility] azine 10 mg 1-31 tablet by ity of tablet 00:00: mouth [place] 00 every 6 Medical (six) Branch hours as needed for Nausea and Vomiting (N/V) for up to 30 doses. proMETHazin 2022-0 Yes [id number] 25mg Insert 1 [facility] e 25 mg 1-31 Suppositor ity of suppository 00:00: y into [facility] 00 rectum Medical every 4 Branch (four) hours as needed for Nausea and Vomiting (N/V) for up to 30 doses. proCHLORper 2022-0 Yes [id number] 10mg Take 1 [facility] azine 10 mg 1-31 tablet by ity of tablet 00:00: mouth [place] 00 every 6 Medical (six) Branch hours as needed for Nausea and Vomiting (N/V) for up to 30 doses. proMETHazin 2022-0 Yes [id number] 25mg Insert 1 [facility] e 25 mg 1-31 Suppositor ity of suppository 00:00: y into [place] 00 rectum Medical every 4 Branch (four) hours as needed for Nausea and Vomiting (N/V) for up to 30 doses. proCHLORper 3-0 Yes [id number] 10mg Take 1 [facility] azine 10 mg 1-31 tablet by ity of tablet 00:00: mouth [place] 00 every 6 Medical (six) Branch hours as needed for Nausea and Vomiting (N/V) for up to 30 doses. proMETHazin 2022-0 Yes [id number] 25mg Insert 1 [facility] e 25 mg 1-31 Suppositor ity of suppository 00:00: y into [place] 00 rectum Medical every 4 Branch (four) hours as needed for Nausea and Vomiting (N/V) for up to 30 doses. proCHLORper 3-0 Yes [id number] 10mg Take 1 [facility] azine 10 mg 1-31 tablet by ity of tablet 00:00: mouth [place] 00 every 6 Medical (six) Branch hours as needed for Nausea and Vomiting (N/V) for up to 30 doses. proMETHazin 3-0 Yes [id number] 25mg Insert 1 [facility] e 25 mg 1-31 Suppositor ity of suppository 00:00: y into [place] 00 rectum Medical every 4 Branch (four) hours as needed for Nausea and Vomiting (N/V) for up to 30 doses. proCHLORper 2022-0 Yes [id number] 10mg Take 1 [facility] azine 10 mg 1-31 tablet by ity of tablet 00:00: mouth [place] 00 every 6 Medical (six) Branch hours as needed for Nausea and Vomiting (N/V) for up to 30 doses. proMETHazin 2022-0 Yes [id number] 25mg Insert 1 [facility] e 25 mg 1-31 Suppositor ity of suppository 00:00: y into [place] 00 rectum Medical every 4 Branch (four) hours as needed for Nausea and Vomiting (N/V) for up to 30 doses. proCHLORper 2022-0 Yes [id number] 10mg Take 1 [facility] azine 10 mg 1-31 tablet by ity of tablet 00:00: mouth [place] 00 every 6 Medical (six) Branch hours as needed for Nausea and Vomiting (N/V) for up to 30 doses. proMETHazin 2022-0 Yes [id number] 25mg Insert 1 [facility] e 25 mg 1-31 Suppositor ity of suppository 00:00: y into [place] 00 rectum Medical every 4 Branch (four) hours as needed for Nausea and Vomiting (N/V) for up to 30 doses. proCHLORper 3-0 Yes [id number] 10mg Take 1 [facility] azine 10 mg 1-31 tablet by ity of tablet 00:00: mouth [place] 00 every 6 Medical (six) Branch hours as needed for Nausea and Vomiting (N/V) for up to 30 doses. proMETHazin 3-0 Yes [id number] 25mg Insert 1 [facility] e 25 mg 1-31 Suppositor ity of suppository 00:00: y into [place] 00 rectum Medical every 4 Branch (four) hours as needed for Nausea and Vomiting (N/V) for up to 30 doses. proCHLORper 3-0 Yes [id number] 10mg Take 1 [facility] azine 10 mg 1-31 tablet by ity of tablet 00:00: mouth [place] 00 every 6 Medical (six) Branch hours as needed for Nausea and Vomiting (N/V) for up to 30 doses. proMETHazin 3-0 Yes [id number] 25mg Insert 1 [facility] e 25 mg 1-31 Suppositor ity of suppository 00:00: y into [place] 00 rectum Medical every 4 Branch (four) hours as needed for Nausea and Vomiting (N/V) for up to 30 doses. proCHLORper 3-0 Yes [id number] 10mg Take 1 [facility] azine 10 mg 1-31 tablet by ity of tablet 00:00: mouth [place] 00 every 6 Medical (six) Branch hours as needed for Nausea and Vomiting (N/V) for up to 30 doses. proMETHazin 3-0 Yes [id number] 25mg Insert 1 [facility] e 25 mg 1-31 Suppositor ity of suppository 00:00: y into [place] 00 rectum Medical every 4 Branch (four) hours as needed for Nausea and Vomiting (N/V) for up to 30 doses. proCHLORper 3-0 Yes [id number] 10mg Take 1 [facility] azine 10 mg 1-31 tablet by ity of tablet 00:00: mouth [place] 00 every 6 Medical (six) Branch hours as needed for Nausea and Vomiting (N/V) for up to 30 doses. proMETHazin 3-0 Yes [id number] 25mg Insert 1 [facility] e 25 mg 1-31 Suppositor ity of suppository 00:00: y into [place] 00 rectum Medical every 4 Branch (four) hours as needed for Nausea and Vomiting (N/V) for up to 30 doses. proCHLORper 3-0 Yes [id number] 10mg Take 1 [facility] azine 10 mg 1-31 tablet by ity of tablet 00:00: mouth [place] 00 every 6 Medical (six) Branch hours as needed for Nausea and Vomiting (N/V) for up to 30 doses. proMETHazin 2023-0 Yes [id number] 25mg Insert 1 [facility] 25 mg 1-31 Suppositor ity of suppository 00:00: y into [place] 00 rectum Medical every 4 Branch (four) hours as needed for Nausea and Vomiting (N/V) for up to 30 doses. proCHLORper 2022-0 Yes [id number] 10mg Take 1 [facility] azine 10 mg 1-31 tablet by ity of tablet 00:00: mouth [place] 00 every 6 Medical (six) Branch hours as needed for Nausea and Vomiting (N/V) for up to 30 doses. proMETHazin 2022-0 Yes [id number] 25mg Insert 1 [facility] e 25 mg 1-31 Suppositor ity of suppository 00:00: y into [facility] 00 rectum Medical every 4 Branch (four) hours as needed for Nausea and Vomiting (N/V) for up to 30 doses. proCHLORper 2022-0 Yes [id number] 10mg Take 1 [facility] azine 10 mg 1-31 tablet by ity of tablet 00:00: mouth [place] 00 every 6 Medical (six) Branch hours as needed for Nausea and Vomiting (N/V) for up to 30 doses. proMETHazin 2022-0 Yes [id number] 25mg Insert 1 [facility] e 25 mg 1-31 Suppositor ity of suppository 00:00: y into [facility] s rectum Medical every 4 Branch (four) hours as needed for Nausea and Vomiting (N/V) for up to 30 doses. proCHLORper 2022-0 Yes [id number] 10mg Take 1 [facility] azine 10 mg 1-31 tablet by ity of tablet 00:00: mouth [place] 00 every 6 Medical (six) Branch hours as needed for Nausea and Vomiting (N/V) for up to 30 doses. proMETHazin 3-0 Yes [id number] 25mg Insert 1 [facility] 25 mg 1-31 Suppositor ity of suppository 00:00: y into [place] 00 rectum [facility] every 4 Branch (four) hours as needed for Nausea and Vomiting (N/V) for up to 30 doses. proCHLORper 3-0 Yes [id number] 10mg Take 1 [facility] azine 10 mg 1-31 tablet by ity of tablet 00:00: mouth [place] 00 every 6 Medical (six) Branch hours as needed for Nausea and Vomiting (N/V) for up to 30 doses. proMETHazin 3-0 Yes [id number] 25mg Insert 1 [facility] 25 mg 1-31 Suppositor ity of suppository 00:00: y into [place] 00 rectum [facility] every 4 Branch (four) hours as needed for Nausea and Vomiting (N/V) for up to 30 doses. proCHLORper 3-0 Yes [id number] 10mg Take 1 [facility]ine 10 mg 1-31 tablet by ity of tablet 00:00: mouth [place] 00 every 6 Medical (six) Branch hours as needed for Nausea and Vomiting (N/V) for up to 30 doses. proMETHazin 3-0 Yes [id number] 25mg Insert 1 [facility] 25 mg 1-31 Suppositor ity of suppository 00:00: y into [place] 00 rectum [facility] every 4 Branch (four) hours as needed for Nausea and Vomiting (N/V) for up to 30 doses. proCHLORper 2022-0 Yes [id number] 10mg Take 1 [facility] azine 10 mg 1-31 tablet by ity of tablet 00:00: mouth [place] 00 every 6 Medical (six) Branch hours as needed for Nausea and Vomiting (N/V) for up to 30 doses. proMETHazin 3-0 Yes [id number] 25mg Insert 1 [facility] e 25 mg 1-31 Suppositor ity of suppository 00:00: y into [place] 00 rectum [facility] every 4 Branch (four) hours as needed for Nausea and Vomiting (N/V) for up to 30 doses. proCHLORper 3-0 Yes [id number] 10mg Take 1 [facility]ine 10 mg 1-31 tablet by ity of tablet 00:00: mouth [place] 00 every 6 Medical (six) Branch hours as needed for Nausea and Vomiting (N/V) for up to 30 doses. proMETHazin 3-0 Yes [id number] 25mg Insert 1 [facility] e 25 mg 1-31 Suppositor ity of suppository 00:00: y into [place] 00 rectum Medical every 4 Branch (four) hours as needed for Nausea and Vomiting (N/V) for up to 30 doses. proCHLORper 3-0 Yes [id number] 10mg Take 1 [facility]ine 10 mg 1-31 tablet by ity of tablet 00:00: mouth [place] 00 every 6 Medical (six) Branch hours as needed for Nausea and Vomiting (N/V) for up to 30 doses. proMETHazin 3-0 Yes [id number] 25mg Insert 1 [facility] 25 mg 1-31 Suppositor ity of suppository 00:00: y into [place] 00 rectum Medical every 4 Branch (four) hours as needed for Nausea and Vomiting (N/V) for up to 30 doses. proCHLORper 3-0 Yes [id number] 10mg Take 1 [facility]ine 10 mg 1-31 tablet by ity of tablet 00:00: mouth [place] 00 every 6 Medical (six) Branch hours as needed for Nausea and Vomiting (N/V) for up to 30 doses. proMETHazin 3-0 Yes [id number] 25mg Insert 1 [facility] 25 mg 1-31 Suppositor ity of suppository 00:00: y into [place] 00 rectum [facility] every 4 Branch (four) hours as needed for Nausea and Vomiting (N/V) for up to 30 doses. proCHLORper 3-0 Yes [id number] 10mg Take 1 [facility] 10 mg 1-31 tablet by ity of tablet 00:00: mouth [place] 00 every 6 Medical (six) Branch hours as needed for Nausea and Vomiting (N/V) for up to 30 doses. proMETHazin 3-0 Yes [id number] 25mg Insert 1 [facility] 25 mg 1-31 Suppositor ity of suppository 00:00: y into [place] 00 rectum [facility] every 4 Branch (four) hours as needed for Nausea and Vomiting (N/V) for up to 30 doses. proCHLORper 3-0 Yes [id number] 10mg Take 1 [facility] 10 mg 1-31 tablet by ity of tablet 00:00: mouth [place] 00 every 6 Medical (six) Branch hours as needed for Nausea and Vomiting (N/V) for up to 30 doses. proMETHazin 3-0 Yes [id number] 25mg Insert 1 [facility] 25 mg 1-31 Suppositor ity of suppository 00:00: y into [place] 00 rectum [facility] every 4 Branch (four) hours as needed for Nausea and Vomiting (N/V) for up to 30 doses. proCHLORper 3-0 Yes [id number] 10mg Take 1 [facility] 10 mg 1-31 tablet by ity of tablet 00:00: mouth [place] 00 every 6 Medical (six) Branch hours as needed for Nausea and Vomiting (N/V) for up to 30 doses. proMETHazin 3-0 Yes [id number] 25mg Insert 1 [facility] 25 mg 1-31 Suppositor ity of suppository 00:00: y into [place] 00 rectum [facility] every 4 Branch (four) hours as needed for Nausea and Vomiting (N/V) for up to 30 doses. proCHLORper 3-0 Yes [id number] 10mg Take 1 [facility] 10 mg 1-31 tablet by ity of tablet 00:00: mouth [place] 00 every 6 Medical (six) Branch hours as needed for Nausea and Vomiting (N/V) for up to 30 doses. proMETHazin 2022-0 Yes [id number] 25mg Insert 1 [facility] e 25 mg 1-31 Suppositor ity of suppository 00:00: y into [facility] 00 rectum Medical every 4 Branch (four) hours as needed for Nausea and Vomiting (N/V) for up to 30 doses. proCHLORper 2022-0 Yes [id number] 10mg Take 1 [facility] 10 mg 1-31 tablet by ity of tablet 00:00: mouth [place] 00 every 6 Medical (six) Branch hours as needed for Nausea and Vomiting (N/V) for up to 30 doses. proMETHazin 2022-0 Yes [id number] 25mg Insert 1 [facility] e 25 mg 1-31 Suppositor ity of suppository 00:00: y into [place] 00 rectum [facility] every 4 Branch (four) hours as needed for Nausea and Vomiting (N/V) for up to 30 doses. proCHLORper 3-0 Yes [id number] 10mg Take 1 [facility] 10 mg 1-31 tablet by ity of tablet 00:00: mouth [place] 00 every 6 Medical (six) Branch hours as needed for Nausea and Vomiting (N/V) for up to 30 doses. proMETHazin 3-0 Yes [id number] 25mg Insert 1 [facility] e 25 mg 1-31 Suppositor ity of suppository 00:00: y into [place] 00 rectum [facility] every 4 Branch (four) hours as needed for Nausea and Vomiting (N/V) for up to 30 doses. proCHLORper 3-0 Yes [id number] 10mg Take 1 [facility] 10 mg 1-31 tablet by ity of tablet 00:00: mouth [place] 00 every 6 Medical (six) Branch hours as needed for Nausea and Vomiting (N/V) for up to 30 doses. proMETHazin 3-0 Yes [id number] 25mg Insert 1 [facility] e 25 mg 1-31 Suppositor ity of suppository 00:00: y into [place] 00 rectum [facility] every 4 Branch (four) hours as needed for Nausea and Vomiting (N/V) for up to 30 doses. proCHLORper 2022-0 Yes [id number] 10mg Take 1 [facility] 10 mg 1-31 tablet by ity of tablet 00:00: mouth [place] 00 every 6 Medical (six) Branch hours as needed for Nausea and Vomiting (N/V) for up to 30 doses. proMETHazin 2022-0 Yes [id number] 25mg Insert 1 [facility] e 25 mg 1-31 Suppositor ity of suppository 00:00: y into [place] 00 rectum [facility] every 4 Branch (four) hours as needed for Nausea and Vomiting (N/V) for up to 30 doses. proCHLORper 2022-0 Yes [id number] 10mg Take 1 [facility] 10 mg 1-31 tablet by ity of tablet 00:00: mouth [place] 00 every 6 Medical (six) Branch hours as needed for Nausea and Vomiting (N/V) for up to 30 doses. proMETHazin 3-0 Yes [id number] 25mg Insert 1 [facility] 25 mg 1-31 Suppositor ity of suppository 00:00: y into [place] 00 rectum [facility] every 4 Branch (four) hours as needed for Nausea and Vomiting (N/V) for up to 30 doses. proCHLORper 3-0 Yes [id number] 10mg Take 1 [facility] 10 mg 1-31 tablet by [facility] of tablet 00:00: mouth [place] 00 every 6 Medical (six) Branch hours as needed for Nausea and Vomiting (N/V) for up to 30 doses. proMETHazin 3-0 Yes [id number] 25mg Insert 1 [facility] 25 mg 1-31 [facility] suppository 00:00: [place] 00 rectum [facility] every 4 Branch (four) hours as needed for Nausea and Vomiting (N/V) for up to 30 doses. proCHLORper 2022-0 Yes [id number] 10mg Take 1 [facility] 10 mg 1-31 tablet by [facility] of tablet 00:00: mouth [place] 00 every 6 Medical (six) Branch hours as needed for Nausea and Vomiting (N/V) for up to 30 doses. proMETHazin 2022-0 Yes [id number] 25mg Insert 1 [facility] 25 mg 1-31 [facility] suppository 00:00: y into [place] 00 rectum [facility] every 4 Branch (four) hours as needed for Nausea and Vomiting (N/V) for up to 30 doses. proCHLORper 2022-0 Yes [id number] 10mg Take 1 [facility] 10 mg 1-31 tablet by [facility] of tablet 00:00: mouth [place] 00 every 6 Medical (six) Branch hours as needed for Nausea and Vomiting (N/V) for up to 30 doses. proMETHazin 2022-0 Yes [id number] 25mg Insert 1 [facility] 25 mg 1-31 [facility] suppository 00:00: y into [place] 00 rectum [facility] every 4 Branch (four) hours as needed for Nausea and Vomiting (N/V) for up to 30 doses. proCHLORper 2022-0 Yes [id number] 10mg Take 1 [facility] 10 mg 1-31 tablet by [facility] of tablet 00:00: mouth [place] 00 every 6 Medical (six) Branch hours as needed for Nausea and Vomiting (N/V) for up to 30 doses. proMETHazin 2022-0 Yes [id number] 25mg Insert 1 [facility] 25 mg 1-31 [facility] suppository 00:00: y into [place] 00 rectum [facility] every 4 Branch (four) hours as needed for Nausea and Vomiting (N/V) for up to 30 doses. proCHLORper 2022-0 Yes [id number] 10mg Take 1 [facility] 10 mg 1-31 tablet by [facility] of tablet 00:00: mouth [place] 00 every 6 Medical (six) Branch hours as needed for Nausea and Vomiting (N/V) for up to 30 doses. proMETHazin 3-0 Yes [id number] 25mg Insert 1 [facility] 25 mg 1-31 [facility] suppository 00:00: y into [place] 00 rectum [facility] every 4 Branch (four) hours as needed for Nausea and Vomiting (N/V) for up to 30 doses. proCHLORper 3-0 Yes [id number] 10mg Take 1 [facility] 10 mg 1-31 tablet by [facility] tablet 00:00: mouth [place] 00 every 6 Medical (six) Branch hours as needed for Nausea and Vomiting (N/V) for up to 30 doses. proMETHazin 2022-0 Yes [id number] 25mg Insert 1 [facility] 25 mg 1-31 [facility] suppository 00:00: y into [place] 00 rectum [facility] every 4 Branch (four) hours as needed for Nausea and Vomiting (N/V) for up to 30 doses. proCHLORper 2022-0 Yes [id number] 10mg Take 1 [facility] 10 mg 1-31 tablet by [facility] of tablet 00:00: mouth [place] 00 every 6 Medical (six) Branch hours as needed for Nausea and Vomiting (N/V) for up to 30 doses. proMETHazin 2022-0 Yes [id number] 25mg Insert 1 [facility] 25 mg 1-31 [facility] suppository 00:00: y into [place] 00 rectum [facility] every 4 Branch (four) hours as needed for Nausea and Vomiting (N/V) for up to 30 doses. proCHLORper 2022-0 Yes [id number] 10mg Take 1 [facility] 10 mg 1-31 tablet by [facility] of tablet 00:00: mouth [place] 00 every 6 Medical (six) Branch hours as needed for Nausea and Vomiting (N/V) for up to 30 doses. proMETHazin 3-0 Yes [id number] 25mg Insert 1 [facility] 25 mg 1-31 [facility] suppository 00:00: y into [place] 00 rectum [facility] every 4 Branch (four) hours as needed for Nausea and Vomiting (N/V) for up to 30 doses. proCHLORper 3-0 Yes [id number] 10mg Take 1 [facility] 10 mg 1-31 tablet by [facility] of tablet 00:00: mouth [place] 00 every 6 Medical (six) Branch hours as needed for Nausea and Vomiting (N/V) for up to 30 doses. proMETHazin 2023-0 Yes [id number] 25mg Insert 1 [facility] 25 mg 1-31 Supp[facility] suppository 00:00: y into [place] 00 rectum [facility] every 4 Branch (four) hours as needed for Nausea and Vomiting (N/V) for up to 30 doses. proCHLORper 3-0 Yes [id number] 10mg Take 1 [facility] 10 mg 1-31 tablet by [facility] of tablet 00:00: mouth [place] 00 every 6 Medical (six) Branch hours as needed for Nausea and Vomiting (N/V) for up to 30 doses. proMETHazin 3-0 Yes [id number] 25mg Insert 1 [facility] 25 mg 1-31 Supp[facility] suppository 00:00: y into [place] 00 rectum [facility] every 4 Branch (four) hours as needed for Nausea and Vomiting (N/V) for up to 30 doses. proCHLORper 3-0 Yes [id number] 10mg Take 1 [facility] 10 mg 1-31 tablet by [facility] of tablet 00:00: mouth [place] 00 every 6 Medical (six) Branch hours as needed for Nausea and Vomiting (N/V) for up to 30 doses. proMETHazin 3-0 Yes [id number] 25mg Insert 1 [facility] 25 mg 1-31 Suppos[facility] suppository 00:00: y into [place] 00 rectum [facility] every 4 Branch (four) hours as needed for Nausea and Vomiting (N/V) for up to 30 doses. proCHLORper 3-0 Yes [id number] 10mg Take 1 [facility] 10 mg 1-31 tablet by [facility] of tablet 00:00: mouth [place] 00 every 6 Medical (six) Branch hours as needed for Nausea and Vomiting (N/V) for up to 30 doses. proMETHazin 3-0 Yes [id number] 25mg Insert 1 [facility] 25 mg 1-31 Supp[facility] suppository 00:00: y into [place] 00 rectum [facility] every 4 Branch (four) hours as needed for Nausea and Vomiting (N/V) for up to 30 doses. proCHLORper 3-0 Yes [id number] 10mg Take 1 [facility] 10 mg 1-31 tablet by [facility] of tablet 00:00: mouth [place] 00 every 6 Medical (six) Branch hours as needed for Nausea and Vomiting (N/V) for up to 30 doses. proMETHazin 3-0 Yes [id number] 25mg Insert 1 [facility] 25 mg 1-31 Suppositor [facility] suppository 00:00: y into [place] 00 rectum [facility] every 4 Branch (four) hours as needed for Nausea and Vomiting (N/V) for up to 30 doses. proCHLORper 2022-0 Yes [id number] 10mg Take 1 [facility] 10 mg 1-31 tablet by [facility] of tablet 00:00: mouth [place] 00 every 6 Medical (six) Branch hours as needed for Nausea and Vomiting (N/V) for up to 30 doses. proMETHazin 2022-0 Yes [id number] 25mg Insert 1 [facility] 25 mg 1-31 Suppositor it[facility] of suppository 00:00: y into [facility] rectum Medical every 4 Branch (four) hours as needed for Nausea and Vomiting (N/V) for up to 30 doses. proCHLORper 2022-0 Yes [id number] 10mg Take 1 [facility] azine 10 mg 1-31 tablet by ity of tablet 00:00: mouth [place] 00 every 6 Medical (six) Branch hours as needed for Nausea and Vomiting (N/V) for up to 30 doses. proMETHazin 2022-0 Yes [id number] 25mg Insert 1 [facility] 25 mg 1-31 Suppositor it[facility] of suppository 00:00: y into [facility]um Medical every 4 Branch (four) hours as needed for Nausea and Vomiting (N/V) for up to 30 doses. proCHLORper 3-0 Yes [id number] 10mg Take 1 [facility]ine 10 mg 1-31 tablet by ity of tablet 00:00: mouth [place] 00 every 6 Medical (six) Branch hours as needed for Nausea and Vomiting (N/V) for up to 30 doses. proMETHazin 3-0 Yes [id number] 25mg Insert 1 [facility] 25 mg 1-31 Suppositor [facility] of suppository 00:00: y into [place] 00 rectum Medical every 4 Branch (four) hours as needed for Nausea and Vomiting (N/V) for up to 30 doses. proCHLORper 3-0 Yes [id number] 10mg Take 1 [facility] 10 mg 1-31 tablet by ity of tablet 00:00: mouth [place] 00 every 6 Medical (six) Branch hours as needed for Nausea and Vomiting (N/V) for up to 30 doses. proMETHazin 3-0 Yes [id number] 25mg Insert 1 [facility] 25 mg 1-31 Suppositor [facility] of suppository 00:00: y into [place] 00 rectum Medical every 4 Branch (four) hours as needed for Nausea and Vomiting (N/V) for up to 30 doses. proCHLORper 2022-0 Yes [id number] 10mg Take 1 [facility] 10 mg 1-31 tablet by ity of tablet 00:00: mouth [place] 00 every 6 Medical (six) Branch hours as needed for Nausea and Vomiting (N/V) for up to 30 doses. proMETHazin 2022-0 Yes [id number] 25mg Insert 1 [facility] 25 mg 1-31 Suppositor it[facility] of suppository 00:00: y into [place] 00 rectum Medical every 4 Branch (four) hours as needed for Nausea and Vomiting (N/V) for up to 30 doses. proCHLORper 2022-0 Yes [id number] 10mg Take 1 [facility] azine 10 mg 1-31 tablet by ity of tablet 00:00: mouth [place] 00 every 6 Medical (six) Branch hours as needed for Nausea and Vomiting (N/V) for up to 30 doses. proMETHazin 2022-0 Yes [id number] 25mg Insert 1 [facility] 25 mg 1-31 Suppositor [facility] of suppository 00:00: y into [place] 00 rectum Medical every 4 Branch (four) hours as needed for Nausea and Vomiting (N/V) for up to 30 doses. proCHLORper 3-0 Yes [id number] 10mg Take 1 [facility] azine 10 mg 1-31 tablet by ity of tablet 00:00: mouth [place] 00 every 6 Medical (six) Branch hours as needed for Nausea and Vomiting (N/V) for up to 30 doses. proMETHazin 2022-0 Yes [id number] 25mg Insert 1 [facility] e 25 mg 1-31 Suppositor ity of suppository 00:00: y into [place] 00 rectum Medical every 4 Branch (four) hours as needed for Nausea and Vomiting (N/V) for up to 30 doses. proCHLORper 3-0 Yes [id number] 10mg Take 1 [facility] azine 10 mg 1-31 tablet by ity of tablet 00:00: mouth [place] 00 every 6 Medical (six) Branch hours as needed for Nausea and Vomiting (N/V) for up to 30 doses. proMETHazin 3-0 Yes [id number] 25mg Insert 1 [facility] e 25 mg 1-31 Suppositor it[facility] of suppository 00:00: y into [place] 00 rectum Medical every 4 Branch (four) hours as needed for Nausea and Vomiting (N/V) for up to 30 doses. proCHLORper 2022-0 Yes [id number] 10mg Take 1 [facility] azine 10 mg 1-31 tablet by ity of tablet 00:00: mouth [place] 00 every 6 Medical (six) Branch hours as needed for Nausea and Vomiting (N/V) for up to 30 doses. proMETHazin 3-0 Yes [id number] 25mg Insert 1 [facility] e 25 mg 1-31 Suppositor ity of suppository 00:00: y into [place] 00 rectum Medical every 4 Branch (four) hours as needed for Nausea and Vomiting (N/V) for up to 30 doses. proCHLORper 3-0 Yes [id number] 10mg Take 1 [facility] azine 10 mg 1-31 tablet by ity of tablet 00:00: mouth [place] 00 every 6 Medical (six) Branch hours as needed for Nausea and Vomiting (N/V) for up to 30 doses. proMETHazin 3-0 Yes [id number] 25mg Insert 1 [facility] e 25 mg 1-31 Suppositor ity of suppository 00:00: y into [place] 00 rectum Medical every 4 Branch (four) hours as needed for Nausea and Vomiting (N/V) for up to 30 doses. proCHLORper 3-0 Yes [id number] 10mg Take 1 [facility] azine 10 mg 1-31 tablet by ity of tablet 00:00: mouth [place] 00 every 6 Medical (six) Branch hours as needed for Nausea and Vomiting (N/V) for up to 30 doses. proMETHazin 3-0 Yes [id number] 25mg Insert 1 [facility] 25 mg 1-31 Suppositor [facility] of suppository 00:00: y into [place] 00 rectum Medical every 4 Branch (four) hours as needed for Nausea and Vomiting (N/V) for up to 30 doses. proCHLORper 3-0 Yes [id number] 10mg Take 1 [facility]ine 10 mg 1-31 tablet by ity of tablet 00:00: mouth [place] 00 every 6 Medical (six) Branch hours as needed for Nausea and Vomiting (N/V) for up to 30 doses. proMETHazin 3-0 Yes [id number] 25mg Insert 1 [facility] e 25 mg 1-31 Suppositor ity of suppository 00:00: y into [facility] rectum Medical every 4 Branch (four) hours as needed for Nausea and Vomiting (N/V) for up to 30 doses. proCHLORper 3-0 Yes [id number] 10mg Take 1 [facility] azine 10 mg 1-31 tablet by ity of tablet 00:00: mouth [place] 00 every 6 Medical (six) Branch hours as needed for Nausea and Vomiting (N/V) for up to 30 doses. proMETHazin 2022-0 Yes [id number] 25mg Insert 1 [facility] e 25 mg 1-31 Suppositor ity of suppository 00:00: y into [facility] 00 rectum Medical every 4 Branch (four) hours as needed for Nausea and Vomiting (N/V) for up to 30 doses. proCHLORper 3-0 Yes [id number] 10mg Take 1 [facility] azine 10 mg 1-31 tablet by ity of tablet 00:00: mouth [place] 00 every 6 Medical (six) Branch hours as needed for Nausea and Vomiting (N/V) for up to 30 doses. proMETHazin 3-0 Yes [id number] 25mg Insert 1 [facility] e 25 mg 1-31 Suppositor ity of suppository 00:00: y into [place] 00 rectum Medical every 4 Branch (four) hours as needed for Nausea and Vomiting (N/V) for up to 30 doses. proCHLORper 2023-0 Yes [id number] 10mg Take 1 [facility] azine 10 mg 1-31 tablet by ity of tablet 00:00: mouth [place] 00 every 6 Medical (six) Branch hours as needed for Nausea and Vomiting (N/V) for up to 30 doses. proMETHazin 3-0 Yes [id number] 25mg Insert 1 [facility] e 25 mg 1-31 Suppositor ity of suppository 00:00: y into [place] 00 rectum Medical every 4 Branch (four) hours as needed for Nausea and Vomiting (N/V) for up to 30 doses. proCHLORper 3-0 Yes [id number] 10mg Take 1 [facility] azine 10 mg 1-31 tablet by ity of tablet 00:00: mouth [place] 00 every 6 Medical (six) Branch hours as needed for Nausea and Vomiting (N/V) for up to 30 doses. proMETHazin 2022-0 Yes [id number] 25mg Insert 1 [facility] e 25 mg 1-31 Suppositor ity of suppository 00:00: y into [place] 00 rectum Medical every 4 Branch (four) hours as needed for Nausea and Vomiting (N/V) for up to 30 doses. proCHLORper 2022-0 Yes [id number] 10mg Take 1 [facility] azine 10 mg 1-31 tablet by ity of tablet 00:00: mouth [place] 00 every 6 Medical (six) Branch hours as needed for Nausea and Vomiting (N/V) for up to 30 doses. proMETHazin 2022-0 Yes [id number] 25mg Insert 1 [facility] 25 mg 1-31 Suppositor ity of suppository 00:00: y into [place] 00 rectum Medical every 4 Branch (four) hours as needed for Nausea and Vomiting (N/V) for up to 30 doses. proCHLORper 3-0 Yes [id number] 10mg Take 1 [facility] azine 10 mg 1-31 tablet by ity of tablet 00:00: mouth [place] 00 every 6 Medical (six) Branch hours as needed for Nausea and Vomiting (N/V) for up to 30 doses. proMETHazin 3-0 Yes [id number] 25mg Insert 1 [facility] e 25 mg 1-31 Suppositor ity of suppository 00:00: y into [place] 00 rectum Medical every 4 Branch (four) hours as needed for Nausea and Vomiting (N/V) for up to 30 doses. proCHLORper 3-0 Yes [id number] 10mg Take 1 [facility] azine 10 mg 1-31 tablet by ity of tablet 00:00: mouth [place] 00 every 6 Medical (six) Branch hours as needed for Nausea and Vomiting (N/V) for up to 30 doses. proMETHazin 2022-0 Yes [id number] 25mg Insert 1 [facility] e 25 mg 1-31 Suppositor ity of suppository 00:00: y into [place] 00 rectum Medical every 4 Branch (four) hours as needed for Nausea and Vomiting (N/V) for up to 30 doses. proCHLORper 2022-0 Yes [id number] 10mg Take 1 [facility] azine 10 mg 1-31 tablet by ity of tablet 00:00: mouth [place] 00 every 6 Medical (six) Branch hours as needed for Nausea and Vomiting (N/V) for up to 30 doses. proMETHazin 2022-0 Yes [id number] 25mg Insert 1 [facility] e 25 mg 1-31 Suppositor ity of suppository 00:00: y into [place] 00 rectum Medical every 4 Branch (four) hours as needed for Nausea and Vomiting (N/V) for up to 30 doses. proCHLORper 2022-0 Yes [id number] 10mg Take 1 [facility] az[facility] 10 mg 1-31 tablet by ity of tablet 00:00: mouth [place] 00 every 6 Medical (six) Branch hours as needed for Nausea and Vomiting (N/V) for up to 30 doses. proMETHazin 2022-0 Yes [id number] 25mg Insert 1 [facility] e 25 mg 1-31 Suppositor ity of suppository 00:00: y into [place] 00 rectum Medical every 4 Branch (four) hours as needed for Nausea and Vomiting (N/V) for up to 30 doses. proCHLORper 3-0 Yes [id number] 10mg Take 1 [facility] azine 10 mg 1-31 tablet by ity of tablet 00:00: mouth [place] 00 every 6 Medical (six) Branch hours as needed for Nausea and Vomiting (N/V) for up to 30 doses. proMETHazin 2022-0 Yes [id number] 25mg Insert 1 [facility] e 25 mg 1-31 Suppositor ity of suppository 00:00: y into [place] 00 rectum Medical every 4 Branch (four) hours as needed for Nausea and Vomiting (N/V) for up to 30 doses. proCHLORper 3-0 Yes [id number] 10mg Take 1 [facility] az[facility] 10 mg 1-31 tablet by ity of tablet 00:00: mouth [place] 00 every 6 Medical (six) Branch hours as needed for Nausea and Vomiting (N/V) for up to 30 doses. proMETHazin 2022-0 Yes [id number] 25mg Insert 1 [facility] e 25 mg 1-31 Suppositor ity of suppository 00:00: y into [place] 00 rectum Medical every 4 Branch (four) hours as needed for Nausea and Vomiting (N/V) for up to 30 doses. proCHLORper 2022-0 Yes [id number] 10mg Take 1 [facility] azine 10 mg 1-31 tablet by ity of tablet 00:00: mouth [place] 00 every 6 Medical (six) Branch hours as needed for Nausea and Vomiting (N/V) for up to 30 doses. proMETHazin 2022-0 Yes [id number] 25mg Insert 1 [facility] e 25 mg 1-31 Suppositor ity of suppository 00:00: [facility] into [facility] rectum [facility] every 4 Branch (four) hours as needed for Nausea and Vomiting (N/V) for up to 30 doses. proCHLORper 2022-0 Yes [id number] 10mg Take 1 [facility] azine 10 mg 1-31 tablet by ity of tablet 00:00: mouth [place] 00 every 6 Medical (six) Branch hours as needed for Nausea and Vomiting (N/V) for up to 30 doses. proMETHazin 2022-0 Yes [id number] 25mg Insert 1 [facility] 25 mg 1-31 Suppositor ity of suppository 00:00: y into [place] 00 rectum Medical every 4 Branch (four) hours as needed for Nausea and Vomiting (N/V) for up to 30 doses. proCHLORper 2022-0 Yes [id number] 10mg Take 1 [facility] azine 10 mg 1-31 tablet by ity of tablet 00:00: mouth [place] 00 every 6 Medical (six) Branch hours as needed for Nausea and Vomiting (N/V) for up to 30 doses. proMETHazin 2022-0 Yes [id number] 25mg Insert 1 [facility] e 25 mg 1-31 Suppositor ity of suppository 00:00: y into [place] 00 rectum Medical every 4 Branch (four) hours as needed for Nausea and Vomiting (N/V) for up to 30 doses. proCHLORper 3-0 Yes [id number] 10mg Take 1 [facility] azine 10 mg 1-31 tablet by ity of tablet 00:00: mouth [place] 00 every 6 Medical (six) Branch hours as needed for Nausea and Vomiting (N/V) for up to 30 doses. proMETHazin 3-0 Yes [id number] 25mg Insert 1 [facility] 25 mg 1-31 Suppositor ity of suppository 00:00: y into [place] 00 rectum [facility] every 4 Branch (four) hours as needed for Nausea and Vomiting (N/V) for up to 30 doses. proCHLORper 2022-0 Yes [id number] 10mg Take 1 [facility] 10 mg 1-31 tablet by ity of tablet 00:00: mouth [place] 00 every 6 Medical (six) Branch hours as needed for Nausea and Vomiting (N/V) for up to 30 doses. proMETHazin 2022-0 Yes [id number] 25mg Insert 1 [facility] 25 mg 1-31 Suppositor ity of suppository 00:00: y into [place] 00 rectum [facility] every 4 Branch (four) hours as needed for Nausea and Vomiting (N/V) for up to 30 doses. proCHLORper 2022-0 Yes [id number] 10mg Take 1 [facility] 10 mg 1-31 tablet by ity of tablet 00:00: mouth [place] 00 every 6 Medical (six) Branch hours as needed for Nausea and Vomiting (N/V) for up to 30 doses. proMETHazin 3-0 Yes [id number] 25mg Insert 1 [facility] 25 mg 1-31 Suppositor ity of suppository 00:00: y into [place] 00 rectum Medical every 4 Branch (four) hours as needed for Nausea and Vomiting (N/V) for up to 30 doses. proCHLORper 3-0 Yes [id number] 10mg Take 1 [facility] 10 mg 1-31 tablet by ity of tablet 00:00: mouth [place] 00 every 6 Medical (six) Branch hours as needed for Nausea and Vomiting (N/V) for up to 30 doses. proMETHazin 3-0 Yes [id number] 25mg Insert 1 [facility] 25 mg 1-31 Suppositor ity of suppository 00:00: y into [place] 00 rectum [facility] every 4 Branch (four) hours as needed for Nausea and Vomiting (N/V) for up to 30 doses. proCHLORper 3-0 Yes [id number] 10mg Take 1 [facility] 10 mg 1-31 tablet by ity of tablet 00:00: mouth [place] 00 every 6 Medical (six) Branch hours as needed for Nausea and Vomiting (N/V) for up to 30 doses. proMETHazin 2022-0 Yes [id number] 25mg Insert 1 [facility] 25 mg 1-31 Suppositor ity of suppository 00:00: y into [place] 00 rectum [facility] every 4 Branch (four) hours as needed for Nausea and Vomiting (N/V) for up to 30 doses. proCHLORper 2022-0 Yes [id number] 10mg Take 1 [facility] 10 mg 1-31 tablet by ity of tablet 00:00: mouth [place] 00 every 6 Medical (six) Branch hours as needed for Nausea and Vomiting (N/V) for up to 30 doses. proMETHazin 2022-0 Yes [id number] 25mg Insert 1 [facility] e 25 mg 1-31 Suppositor ity of suppository 00:00: [facility] into [facility] rectum [facility] every 4 Branch (four) hours as needed for Nausea and Vomiting (N/V) for up to 30 doses. proCHLORper 2022-0 Yes [id number] 10mg Take 1 [facility] 10 mg 1-31 tablet by ity of tablet 00:00: mouth [place] 00 every 6 Medical (six) Branch hours as needed for Nausea and Vomiting (N/V) for up to 30 doses. proMETHazin 2022-0 Yes [id number] 25mg Insert 1 [facility] 25 mg 1-31 Suppositor ity of suppository 00:00: y into [place] 00 rectum [facility] every 4 Branch (four) hours as needed for Nausea and Vomiting (N/V) for up to 30 doses. proCHLORper 2022-0 Yes [id number] 10mg Take 1 [facility] 10 mg 1-31 tablet by ity of tablet 00:00: mouth [place] 00 every 6 Medical (six) Branch hours as needed for Nausea and Vomiting (N/V) for up to 30 doses. proMETHazin 3-0 Yes [id number] 25mg Insert 1 [facility] 25 mg 1-31 Suppositor ity of suppository 00:00: y into [place] 00 rectum [facility] every 4 Branch (four) hours as needed for Nausea and Vomiting (N/V) for up to 30 doses. proCHLORper 3-0 Yes [id number] 10mg Take 1 [facility] 10 mg 1-31 tablet by ity of tablet 00:00: mouth [place] 00 every 6 Medical (six) Branch hours as needed for Nausea and Vomiting (N/V) for up to 30 doses. proMETHazin 2022-0 Yes [id number] 25mg Insert 1 [facility] 25 mg 1-31 Suppositor ity of suppository 00:00: y into [place] 00 rectum [facility] every 4 Branch (four) hours as needed for Nausea and Vomiting (N/V) for up to 30 doses. proCHLORper 2022-0 Yes [id number] 10mg Take 1 [facility] 10 mg 1-31 tablet by ity of tablet 00:00: mouth [place] 00 every 6 Medical (six) Branch hours as needed for Nausea and Vomiting (N/V) for up to 30 doses. proMETHazin 2022-0 Yes [id number] 25mg Insert 1 [facility] 25 mg 1-31 Suppositor ity of suppository 00:00: y into [place] 00 rectum Medical every 4 Branch (four) hours as needed for Nausea and Vomiting (N/V) for up to 30 doses. proCHLORper 2022-0 Yes [id number] 10mg Take 1 [facility] 10 mg 1-31 tablet by ity of tablet 00:00: mouth [place] 00 every 6 Medical (six) Branch hours as needed for Nausea and Vomiting (N/V) for up to 30 doses. proMETHazin 3-0 Yes [id number] 25mg Insert 1 [facility] e 25 mg 1-31 Suppositor ity of suppository 00:00: y into [place] 00 rectum Medical every 4 Branch (four) hours as needed for Nausea and Vomiting (N/V) for up to 30 doses. proCHLORper 3-0 Yes [id number] 10mg Take 1 [facility] 10 mg 1-31 tablet by ity of tablet 00:00: mouth [place] 00 every 6 Medical (six) Branch hours as needed for Nausea and Vomiting (N/V) for up to 30 doses. proMETHazin 3-0 Yes [id number] 25mg Insert 1 [facility] 25 mg 1-31 Suppositor ity of suppository 00:00: y into [place] 00 rectum [facility] every 4 Branch (four) hours as needed for Nausea and Vomiting (N/V) for up to 30 doses. proCHLORper 3-0 Yes [id number] 10mg Take 1 [facility] 10 mg 1-31 tablet by ity of tablet 00:00: mouth [place] 00 every 6 Medical (six) Branch hours as needed for Nausea and Vomiting (N/V) for up to 30 doses. proMETHazin 3-0 Yes [id number] 25mg Insert 1 [facility] 25 mg 1-31 Suppositor ity of suppository 00:00: y into [place] 00 rectum [facility] every 4 Branch (four) hours as needed for Nausea and Vomiting (N/V) for up to 30 doses. proCHLORper 3-0 Yes [id number] 10mg Take 1 [facility] 10 mg 1-31 tablet by ity of tablet 00:00: mouth [place] 00 every 6 Medical (six) Branch hours as needed for Nausea and Vomiting (N/V) for up to 30 doses. proMETHazin 3-0 Yes [id number] 25mg Insert 1 [facility] 25 mg 1-31 Suppositor ity of suppository 00:00: y into [place] 00 rectum [facility] every 4 Branch (four) hours as needed for Nausea and Vomiting (N/V) for up to 30 doses. proCHLORper 3-0 Yes [id number] 10mg Take 1 [facility] 10 mg 1-31 tablet by ity of tablet 00:00: mouth [place] 00 every 6 Medical (six) Branch hours as needed for Nausea and Vomiting (N/V) for up to 30 doses. proMETHazin 3-0 Yes [id number] 25mg Insert 1 [facility] 25 mg 1-31 Suppositor ity of suppository 00:00: y into [place] 00 rectum [facility] every 4 Branch (four) hours as needed for Nausea and Vomiting (N/V) for up to 30 doses. proCHLORper 3-0 Yes [id number] 10mg Take 1 [facility] 10 mg 1-31 tablet by ity of tablet 00:00: mouth [place] 00 every 6 Medical (six) Branch hours as needed for Nausea and Vomiting (N/V) for up to 30 doses. proMETHazin 3-0 Yes [id number] 25mg Insert 1 [facility] 25 mg 1-31 Suppositor ity of suppository 00:00: y into [place] rect[place] [facility] every 4 Branch (four) hours as needed for Nausea and Vomiting (N/V) for up to 30 doses. proCHLORper 2022-0 Yes [id number] 10mg Take 1 [facility] azine 10 mg 1-31 tablet by ity of tablet 00:00: mouth [place] 00 every 6 Medical (six) Branch hours as needed for Nausea and Vomiting (N/V) for up to 30 doses. proMETHazin 2022-0 Yes [id number] 25mg Insert 1 [facility] e 25 mg 1-31 Suppositor ity of suppository 00:00: y into [facility] rectum Medical every 4 Branch (four) hours as needed for Nausea and Vomiting (N/V) for up to 30 doses. proCHLORper 2022-0 Yes [id number] 10mg Take 1 [facility] azine 10 mg 1-31 tablet by ity of tablet 00:00: mouth [place] 00 every 6 Medical (six) Branch hours as needed for Nausea and Vomiting (N/V) for up to 30 doses. proMETHazin 2022-0 Yes [id number] 25mg Insert 1 [facility] e 25 mg 1-31 Suppositor ity of suppository 00:00: y into [facility] rectum Medical every 4 Branch (four) hours as needed for Nausea and Vomiting (N/V) for up to 30 doses. proCHLORper 3-0 Yes [id number] 10mg Take 1 [facility] azine 10 mg 1-31 tablet by ity of tablet 00:00: mouth [place] 00 every 6 Medical (six) Branch hours as needed for Nausea and Vomiting (N/V) for up to 30 doses. proMETHazin 2022-0 Yes [id number] 25mg Insert 1 [facility] e 25 mg 1-31 Suppositor ity of suppository 00:00: [place] rectum Medical every 4 Branch (four) hours as needed for Nausea and Vomiting (N/V) for up to 30 doses. proCHLORper 3-0 Yes [id number] 10mg Take 1 [facility] azine 10 mg 1-31 tablet by ity of tablet 00:00: mouth [place] 00 every 6 Medical (six) Branch hours as needed for Nausea and Vomiting (N/V) for up to 30 doses. proMETHazin 3-0 Yes [id number] 25mg Insert 1 [facility] e 25 mg 1-31 Suppositor ity of suppository 00:00: [place] rectum Medical every 4 Branch (four) hours as needed for Nausea and Vomiting (N/V) for up to 30 doses. proCHLORper 2022-0 Yes [id number] 10mg Take 1 [facility] azine 10 mg 1-31 tablet by ity of tablet 00:00: mouth [place] 00 every 6 Medical (six) Branch hours as needed for Nausea and Vomiting (N/V) for up to 30 doses. proMETHazin 2022-0 Yes [id number] 25mg Insert 1 [facility] e 25 mg 1-31 Suppositor ity of suppository 00:00: [place] rectum Medical every 4 Branch (four) hours as needed for Nausea and Vomiting (N/V) for up to 30 doses. proCHLORper 2022-0 Yes [id number] 10mg Take 1 [facility] azine 10 mg 1-31 tablet by ity of tablet 00:00: mouth [place] 00 every 6 Medical (six) Branch hours as needed for Nausea and Vomiting (N/V) for up to 30 doses. proMETHazin 2022-0 Yes [id number] 25mg Insert 1 [facility] e 25 mg 1-31 Suppositor ity of suppository 00:00: [place] rectum Medical every 4 Branch (four) hours as needed for Nausea and Vomiting (N/V) for up to 30 doses. proCHLORper 3-0 Yes [id number] 10mg Take 1 [facility] azine 10 mg 1-31 tablet by ity of tablet 00:00: mouth [place] 00 every 6 Medical (six) Branch hours as needed for Nausea and Vomiting (N/V) for up to 30 doses. proMETHazin 3-0 Yes [id number] 25mg Insert 1 [facility] e 25 mg 1-31 Suppositor ity of suppository 00:00: y into [place] 00 rectum Medical every 4 Branch (four) hours as needed for Nausea and Vomiting (N/V) for up to 30 doses. proCHLORper 3-0 Yes [id number] 10mg Take 1 [facility] azine 10 mg 1-31 tablet by ity of tablet 00:00: mouth [place] 00 every 6 Medical (six) Branch hours as needed for Nausea and Vomiting (N/V) for up to 30 doses. proMETHazin 3-0 Yes [id number] 25mg Insert 1 [facility] e 25 mg 1-31 Suppositor ity of suppository 00:00: y into [place] rectum Medical every 4 Branch (four) hours as needed for Nausea and Vomiting (N/V) for up to 30 doses. proCHLORper 2022-0 Yes [id number] 10mg Take 1 [facility] azine 10 mg 1-31 tablet by ity of tablet 00:00: mouth [place] 00 every 6 Medical (six) Branch hours as needed for Nausea and Vomiting (N/V) for up to 30 doses. proMETHazin 3-0 Yes [id number] 25mg Insert 1 [facility] e 25 mg 1-31 Suppositor ity of suppository 00:00: y into [place] rectum Medical every 4 Branch (four) hours as needed for Nausea and Vomiting (N/V) for up to 30 doses. proCHLORper 2022-0 Yes [id number] 10mg Take 1 [facility] azine 10 mg 1-31 tablet by ity of tablet 00:00: mouth [place] 00 every 6 Medical (six) Branch hours as needed for Nausea and Vomiting (N/V) for up to 30 doses. proMETHazin 3-0 Yes [id number] 25mg Insert 1 [facility] e 25 mg 1-31 Suppositor ity of suppository 00:00: y into [place] 00 rectum Medical every 4 Branch (four) hours as needed for Nausea and Vomiting (N/V) for up to 30 doses. proCHLORper 3-0 Yes [id number] 10mg Take 1 [facility] azine 10 mg 1-31 tablet by ity of tablet 00:00: mouth [place] 00 every 6 Medical (six) Branch hours as needed for Nausea and Vomiting (N/V) for up to 30 doses. proMETHazin 3-0 Yes [id number] 25mg Insert 1 [facility] e 25 mg 1-31 Suppositor ity of suppository 00:00: y into [place] 00 rectum Medical every 4 Branch (four) hours as needed for Nausea and Vomiting (N/V) for up to 30 doses. proCHLORper 2022-0 Yes [id number] 10mg Take 1 [facility] azine 10 mg 1-31 tablet by ity of tablet 00:00: mouth [place] 00 every 6 Medical (six) Branch hours as needed for Nausea and Vomiting (N/V) for up to 30 doses. proMETHazin 2022-0 Yes [id number] 25mg Insert 1 [facility] e 25 mg 1-31 Suppositor ity of suppository 00:00: [facility] into [facility] rectum Medical every 4 Branch (four) hours as needed for Nausea and Vomiting (N/V) for up to 30 doses. proCHLORper 2022-0 Yes [id number] 10mg Take 1 [facility] azine 10 mg 1-31 tablet by ity of tablet 00:00: mouth [place] 00 every 6 Medical (six) Branch hours as needed for Nausea and Vomiting (N/V) for up to 30 doses. proMETHazin 2022-0 Yes [id number] 25mg Insert 1 [facility] e 25 mg 1-31 Suppositor ity of suppository 00:00: y into [facility] rectum Medical every 4 Branch (four) hours as needed for Nausea and Vomiting (N/V) for up to 30 doses. proCHLORper 2022-0 Yes [id number] 10mg Take 1 [facility] azine 10 mg 1-31 tablet by ity of tablet 00:00: mouth [place] 00 every 6 Medical (six) Branch hours as needed for Nausea and Vomiting (N/V) for up to 30 doses. proMETHazin 3-0 Yes [id number] 25mg Insert 1 [facility] e 25 mg 1-31 Suppositor ity of suppository 00:00: y into [place] rectum Medical every 4 Branch (four) hours as needed for Nausea and Vomiting (N/V) for up to 30 doses. proCHLORper 3-0 Yes [id number] 10mg Take 1 [facility] azine 10 mg 1-31 tablet by ity of tablet 00:00: mouth [place] 00 every 6 Medical (six) Branch hours as needed for Nausea and Vomiting (N/V) for up to 30 doses. proMETHazin 3-0 Yes [id number] 25mg Insert 1 [facility] e 25 mg 1-31 Suppositor ity of suppository 00:00: y into [place] 00 rectum Medical every 4 Branch (four) hours as needed for Nausea and Vomiting (N/V) for up to 30 doses. proCHLORper 3-0 Yes [id number] 10mg Take 1 [facility] azine 10 mg 1-31 tablet by ity of tablet 00:00: mouth [place] 00 every 6 Medical (six) Branch hours as needed for Nausea and Vomiting (N/V) for up to 30 doses. proMETHazin 3-0 Yes [id number] 25mg Insert 1 [facility] e 25 mg 1-31 Suppositor ity of suppository 00:00: y into [place] 00 rectum Medical every 4 Branch (four) hours as needed for Nausea and Vomiting (N/V) for up to 30 doses. proCHLORper 2022-0 Yes [id number] 10mg Take 1 [facility] azine 10 mg 1-31 tablet by ity of tablet 00:00: mouth [place] 00 every 6 Medical (six) Branch hours as needed for Nausea and Vomiting (N/V) for up to 30 doses. proMETHazin 2022-0 Yes [id number] 25mg Insert 1 [facility] e 25 mg 1-31 Suppositor ity of suppository 00:00: y into [place] 00 rectum Medical every 4 Branch (four) hours as needed for Nausea and Vomiting (N/V) for up to 30 doses. proCHLORper 2022-0 Yes [id number] 10mg Take 1 [facility] azine 10 mg 1-31 tablet by ity of tablet 00:00: mouth [place] 00 every 6 Medical (six) Branch hours as needed for Nausea and Vomiting (N/V) for up to 30 doses. gadobenate 2022-0 2022- No [id number] .2mL/kg 0.2 mL/kg, [facility] dimeglumine 04-27 Intravenou i ty of (MULTIHANCE 18:45: 18:54 s, ONCE, 1 [place] -20 mL) 00 :00 dose, On Medical injection [place] Branch 0.2 mL/kg 04/27/22 at 1245, Routine fludeoxyglu 2022-0 2022- No [id number] 12.08 12.08 [facility] cose F-18 04-27 i millicurie ity of (FDG) 16:30: 15:10 , [place] injection 00 :00 Intravenou Medi nicolas 12.08 s, ONCE, 1 Branch millicurie dose, On [place] 04/27/22 at 1030, Routine apixaban 5 2022-0 2022- No 5mg Take 5 mg U nivers mg tablet 04-11 by mouth. ity of 13:39: 00:00 [place] 39 :00 Medical Branch apixaban 5 2022-0 2022- No 5mg Take 5 mg U nivers mg tablet 04-11 by mouth. ity of 13:39: 00:00 [place] 39 :00 Medical Branch apixaban 5 2022-0 2022- No 5mg Take 5 mg U nivers mg tablet 04-11 by mouth. ity of 13:39: 00:00 [place] 39 :00 Medical Branch albuterol 2022-0 Yes 2{puff} Inhale 2 U nivers 90 1-10 Puffs. ity of mcg/actuati 09:06: [place] on inhaler 51 Medical Branch albuterol 0 Yes 2{puff} Inhale 2 U nivers 90 1-10 Puffs. ity of mcg/actuati 09:06: [place] on inhaler 51 Medical Branch albuterol 0 Yes 2{puff} Inhale 2 U nivers 90 1-10 Puffs. ity of mcg/actuati 09:06: [place] on inhaler 51 Medical Branch albuterol 2022-0 Yes 2{puff} Inhale 2 U nivers 90 1-10 Puffs. ity of mcg/actuati 09:06: [place] on inhaler 51 Medical Branch albuterol 2022-0 Yes 2{puff} Inhale 2 U nivers 90 1-10 Puffs. ity of mcg/actuati 09:06: [place] on inhaler 51 Medical Branch albuterol 2022-0 Yes 2{puff} Inhale 2 U nivers 90 1-10 Puffs. ity of mcg/actuati 09:06: [place] on inhaler 51 Medical Branch albuterol Yes 2{puff} Inhale 2 U nivers 90 1-10 Puffs. ity of mcg/actuati 09:06: [place] on inhaler 51 Medical Branch albuterol Yes 2{puff} Inhale 2 U nivers 90 1-10 Puffs. ity of mcg/actuati 09:06: [place] on inhaler 51 Medical Branch albuterol Yes 2{puff} Inhale 2 U nivers 90 1-10 Puffs. ity of mcg/actuati 09:06: [place] on inhaler 51 Medical Branch albuterol Yes 2{puff} Inhale 2 U nivers 90 1-10 Puffs. ity of mcg/actuati 09:06: [place] on inhaler 51 Medical Branch albuterol Yes 2{puff} Inhale 2 U nivers 90 1-10 Puffs. ity of mcg/actuati 09:06: [place] on inhaler 51 Medical Branch albuterol Yes 2{puff} Inhale 2 U nivers 90 1-10 Puffs. ity of mcg/actuati 09:06: [place] on inhaler 51 Medical Branch gabapentin 0 Yes [id number] 100mg Take 1 [facility] 100 mg 1-10 102 capsule by ity of capsule 00:00: mouth in [place] the Medical morning Branch and 1 capsule at noon and 1 capsule in the evening. lidocaine 2 2022-0 Yes [id number] 5mL Apply 5 mL [facility] % mucosal 1-10 102 to area(s) ity of jelly 00:00: every 6 [place] [address] (six) Medical hours. Branch (Thin layer only) gabapentin 2022-0 Yes [id number] 100mg Take 1 [facility] 100 mg 1-10 102 capsule by ity of capsule 00:00: mouth in [place] the Medical morning Branch and 1 capsule at noon and 1 capsule in the evening. lidocaine 2 2022-0 Yes [id number] 5mL Apply 5 mL [facility] % mucosal 1-10 102 to area(s) ity of jelly 00:00: every 6 [place] [address] (six) Medical hours. Branch (Thin layer only) gabapentin 2022-0 Yes [id number] 100mg Take 1 [facility] 100 mg 1-10 102 capsule by ity of capsule 00:00: mouth in [place] [address] the Medical morning Branch and 1 capsule at noon and 1 capsule in the evening. lidocaine 2 2022-0 Yes [id number] 5mL Apply 5 mL [facility] % mucosal 1-10 102 to area(s) ity of jelly 00:00: every 6 [place] [address] (six) Medical hours. Branch (Thin layer only) gabapentin 2022-0 Yes [id number] 100mg Take 1 [facility] 100 mg 1-10 102 capsule by ity of capsule 00:00: mouth in [place] [address] the Medical morning Branch and 1 capsule at noon and 1 capsule in the evening. lidocaine 2 2022-0 Yes [id number] 5mL Apply 5 mL [facility] % mucosal 1-10 102 to area(s) ity of jelly 00:00: every 6 [place] [address] (six) Medical hours. Branch (Thin layer only) gabapentin 2022-0 Yes [id number] 100mg Take 1 [facility] 100 mg 1-10 102 capsule by ity of capsule 00:00: mouth in [place] [address] the [facility] morning [place] and 1 capsule at noon and 1 capsule in the evening. lidocaine 2 2022-0 Yes [id number] 5mL Apply 5 mL [facility] % mucosal 1-10 102 to area(s) ity of jelly 00:00: every 6 [place] [address] (six) Medical hours. Branch (Thin layer only) gabapentin 2022-0 Yes [id number] 100mg Take 1 [facility] 100 mg 1-10 102 capsule by ity of capsule 00:00: mouth in [place] [address] the [facility] morning [place] and 1 capsule at noon and 1 capsule in the evening. lidocaine 2 2022-0 Yes [id number] 5mL Apply 5 mL [facility] % mucosal 1-10 102 to area(s) ity of jelly 00:00: every 6 [place] [address] (six) Medical hours. Branch (Thin layer only) gabapentin 2022-0 Yes [id number] 100mg Take 1 [facility] 100 mg 1-10 102 capsule by ity of capsule 00:00: mouth in [place] [address] the Medical morning Branch and 1 capsule at noon and 1 capsule in the evening. lidocaine 2 2022-0 Yes [id number] 5mL Apply 5 mL [facility] % mucosal 1-10 102 to area(s) ity of jelly 00:00: every 6 [place] [address] (six) Medical hours. Branch (Thin layer only) gabapentin 2023-0 Yes [id number] 100mg Take 1 [facility] 100 mg 1-10 102 capsule by ity of capsule 00:00: mouth in [place] 00 the Medical morning Branch and 1 capsule at noon and 1 capsule in the evening. lidocaine 2 3-0 Yes [id number] 5mL Apply 5 mL [facility] % mucosal 1-10 102 to area(s) ity of jelly 00:00: every 6 [place] [address] (six) Medical hours. Branch (Thin layer only) gabapentin 2023-0 Yes [id number] 100mg Take 1 [facility] 100 mg 1-10 102 capsule by ity of capsule 00:00: mouth in [place] the Medical morning Branch and 1 capsule at noon and 1 capsule in the evening. lidocaine 2 3-0 Yes [id number] 5mL Apply 5 mL [facility] % mucosal 1-10 102 to area(s) ity of jelly 00:00: every 6 [place] [address] (six) Medical hours. Branch (Thin layer only) gabapentin 2023-0 Yes [id number] 100mg Take 1 [facility] 100 mg 1-10 102 capsule by ity of capsule 00:00: mouth in [place] the Medical morning Branch and 1 capsule at noon and 1 capsule in the evening. lidocaine 2 2022-0 Yes [id number] 5mL Apply 5 mL [facility] % mucosal 1-10 102 to area(s) ity of jelly 00:00: every 6 [place] [address] (six) Medical hours. Branch (Thin layer only) gabapentin 2023-0 Yes [id number] 100mg Take 1 [facility] 100 mg 1-10 102 capsule by ity of capsule 00:00: mouth in [place] the Medical morning Branch and 1 capsule at noon and 1 capsule in the evening. lidocaine 2 3-0 Yes [id number] 5mL Apply 5 mL [facility] % mucosal 1-10 102 to area(s) ity of jelly 00:00: every 6 [place] [address] (six) Medical hours. Branch (Thin layer only) gabapentin 2023-0 Yes [id number] 100mg Take 1 [facility] 100 mg 1-10 102 capsule by ity of capsule 00:00: mouth in [place] the Medical morning Branch and 1 capsule at noon and 1 capsule in the evening. lidocaine 2 3-0 Yes [id number] 5mL Apply 5 mL [facility] % mucosal 1-10 102 to area(s) ity of jelly 00:00: every 6 [place] [address] (six) Medical hours. Branch (Thin layer only) gabapentin 3-0 Yes [id number] 100mg Take 1 [facility] 100 mg 1-10 102 capsule by ity of capsule 00:00: mouth in [place] 00 the Medical morning Branch and 1 capsule at noon and 1 capsule in the evening. lidocaine 2 2022-0 Yes [id number] 5mL Apply 5 mL [facility] % mucosal 1-10 102 to area(s) ity of jelly 00:00: every 6 [place] [address] (six) Medical hours. Branch (Thin layer only) gabapentin 3-0 Yes [id number] 100mg Take 1 [facility] 100 mg 1-10 102 capsule by ity of capsule 00:00: mouth in [place] [address] the Medical morning Branch and 1 capsule at noon and 1 capsule in the evening. lidocaine 2 2022-0 Yes [id number] 5mL Apply 5 mL [facility] % mucosal 1-10 102 to area(s) ity of jelly 00:00: every 6 [place] [address] (six) Medical hours. Branch (Thin layer only) gabapentin 3-0 Yes [id number] 100mg Take 1 [facility] 100 mg 1-10 102 capsule by ity of capsule 00:00: mouth in [place] the Medical morning Branch and 1 capsule at noon and 1 capsule in the evening. lidocaine 2 2022-0 Yes [id number] 5mL Apply 5 mL [facility] % mucosal 1-10 102 to area(s) ity of jelly 00:00: every 6 [place] [address] (six) Medical hours. Branch (Thin layer only) gabapentin 2023-0 Yes [id number] 100mg Take 1 [facility] 100 mg 1-10 102 capsule by ity of capsule 00:00: mouth in [place] [address] the Medical morning Branch and 1 capsule at noon and 1 capsule in the evening. lidocaine 2 3-0 Yes [id number] 5mL Apply 5 mL [facility] % mucosal 1-10 102 to area(s) ity of jelly 00:00: every 6 [place] [address] (six) Medical hours. Branch (Thin layer only) gabapentin 2023-0 Yes [id number] 100mg Take 1 [facility] 100 mg 1-10 102 capsule by ity of capsule 00:00: mouth in [place] [address] the Medical morning Branch and 1 capsule at noon and 1 capsule in the evening. lidocaine 2 2023-0 Yes [id number] 5mL Apply 5 mL [facility] % mucosal 1-10 102 to area(s) ity of jelly 00:00: every 6 [place] [address] (six) Medical hours. Branch (Thin layer only) gabapentin 2023-0 Yes [id number] 100mg Take 1 [facility] 100 mg 1-10 102 capsule by ity of capsule 00:00: mouth in [place] [address] the [facility] morning [place] and 1 capsule at noon and 1 capsule in the evening. lidocaine 2 2023-0 Yes [id number] 5mL Apply 5 mL [facility] % mucosal 1-10 102 to area(s) ity of jelly 00:00: every 6 [place] [address] (six) Medical hours. Branch (Thin layer only) gabapentin 2023-0 Yes [id number] 100mg Take 1 [facility] 100 mg 1-10 102 capsule by ity of capsule 00:00: mouth in [address] morning [place] and 1 capsule at noon and 1 capsule in the evening. lidocaine 2 3-0 Yes [id number] 5mL Apply 5 mL [facility] % mucosal 1-10 102 to area(s) ity of jelly 00:00: every 6 [place] [address] (six) Medical hours. Branch (Thin layer only) gabapentin 2023-0 Yes [id number] 100mg Take 1 [facility] 100 mg 1-10 102 capsule by ity of capsule 00:00: mouth in [place] [address] the [facility] morning [place] and 1 capsule at noon and 1 capsule in the evening. gabapentin 2023-0 Yes [id number] 100mg Take 1 [facility] 100 mg 1-10 102 capsule by ity of capsule 00:00: mouth in [address] morning [place] and 1 capsule at noon and 1 capsule in the evening. gabapentin 2023-0 Yes [id number] 100mg Take 1 [facility] 100 mg 1-10 102 capsule by ity of capsule 00:00: mouth in [place] [address] the [facility] morning [place] and 1 capsule at noon and 1 capsule in the evening. gabapentin 2023-0 Yes [id number] 100mg Take 1 [facility] 100 mg 1-10 102 capsule by ity of capsule 00:00: mouth in [address] morning [place] and 1 capsule at noon and 1 capsule in the evening. gabapentin 2023-0 Yes [id number] 100mg Take 1 [facility] 100 mg 1-10 102 capsule by ity of capsule 00:00: mouth in [address] morning [place] and 1 capsule at noon and 1 capsule in the evening. gabapentin 2023-0 Yes [id number] 100mg Take 1 [facility] 100 mg 1-10 102 capsule by ity of capsule 00:00: mouth in [address] morning [place] and 1 capsule at noon and 1 capsule in the evening. gabapentin 2023-0 Yes [id number] 100mg Take 1 [facility] 100 mg 1-10 102 capsule by ity of capsule 00:00: mouth in [address] and 1 capsule at noon and 1 capsule in the evening. gabapentin 2023-0 Yes [id number] 100mg Take 1 [facility] 100 mg 1-10 102 capsule by ity of capsule 00:00: mouth in [address] and 1 capsule at noon and 1 capsule in the evening. gabapentin 2023-0 Yes [id number] 100mg Take 1 [facility] 100 mg 1-10 102 capsule by ity of capsule 00:00: mouth in [address] and 1 capsule at noon and 1 capsule in the evening. gabapentin 2023-0 Yes [id number] 100mg Take 1 [facility] 100 mg 1-10 102 capsule by ity of capsule 00:00: mouth in [address] and 1 capsule at noon and 1 capsule in the evening. gabapentin 2023-0 Yes [id number] 100mg Take 1 [facility] 100 mg 1-10 102 capsule by ity of capsule 00:00: mouth in [address] and 1 capsule at noon and 1 capsule in the evening. gabapentin 2023-0 Yes [id number] 100mg Take 1 [facility] 100 mg 1-10 102 capsule by ity of capsule 00:00: mouth in [address] and 1 capsule at noon and 1 capsule in the evening. gabapentin 2023-0 Yes [id number] 100mg Take 1 [facility] 100 mg 1-10 102 capsule by ity of capsule 00:00: mouth in [address] and 1 capsule at noon and 1 capsule in the evening. gabapentin 2023-0 Yes [id number] 100mg Take 1 [facility] 100 mg 1-10 102 capsule by ity of capsule 00:00: mouth in [address] and 1 capsule at noon and 1 capsule in the evening. gabapentin 2023-0 Yes [id number] 100mg Take 1 [facility] 100 mg 1-10 102 capsule by ity of capsule 00:00: mouth in [address] and 1 capsule at noon and 1 capsule in the evening. gabapentin 2023-0 Yes [id number] 100mg Take 1 [facility] 100 mg 1-10 102 capsule by ity of capsule 00:00: mouth in [address] morning [place] and 1 capsule at noon and 1 capsule in the evening. gabapentin 2023-0 Yes [id number] 100mg Take 1 [facility] 100 mg 1-10 102 capsule by ity of capsule 00:00: mouth in [address] and 1 capsule at noon and 1 capsule in the evening. gabapentin 2023-0 Yes [id number] 100mg Take 1 [facility] 100 mg 1-10 102 capsule by ity of capsule 00:00: mouth in [address] and 1 capsule at noon and 1 capsule in the evening. gabapentin 2023-0 Yes [id number] 100mg Take 1 [facility] 100 mg 1-10 102 capsule by ity of capsule 00:00: mouth in [address] and 1 capsule at noon and 1 capsule in the evening. gabapentin 2023-0 Yes [id number] 100mg Take 1 [facility] 100 mg 1-10 102 capsule by ity of capsule 00:00: mouth in [address] and 1 capsule at noon and 1 capsule in the evening. gabapentin 2023-0 Yes [id number] 100mg Take 1 [facility] 100 mg 1-10 102 capsule by ity of capsule 00:00: mouth in [address] and 1 capsule at noon and 1 capsule in the evening. gabapentin 2023-0 Yes [id number] 100mg Take 1 [facility] 100 mg 1-10 102 capsule by ity of capsule 00:00: mouth in [address] and 1 capsule at noon and 1 capsule in the evening. gabapentin 2023-0 Yes [id number] 100mg Take 1 [facility] 100 mg 1-10 102 capsule by ity of capsule 00:00: mouth in [address] and 1 capsule at noon and 1 capsule in the evening. gabapentin 2023-0 Yes [id number] 100mg Take 1 [facility] 100 mg 1-10 102 capsule by ity of capsule 00:00: mouth in [address] and 1 capsule at noon and 1 capsule in the evening. gabapentin 2023-0 Yes [id number] 100mg Take 1 [facility] 100 mg 1-10 102 capsule by ity of capsule 00:00: mouth in [address] and 1 capsule at noon and 1 capsule in the evening. gabapentin 2023-0 Yes [id number] 100mg Take 1 [facility] 100 mg 1-10 102 capsule by ity of capsule 00:00: mouth in [address] and 1 capsule at noon and 1 capsule in the evening. gabapentin 2023-0 Yes [id number] 100mg Take 1 [facility] 100 mg 1-10 102 capsule by ity of capsule 00:00: mouth in [address] and 1 capsule at noon and 1 capsule in the evening. gabapentin 2023-0 Yes [id number] 100mg Take 1 [facility] 100 mg 1-10 102 capsule by ity of capsule 00:00: mouth in [address] and 1 capsule at noon and 1 capsule in the evening. gabapentin 2023-0 Yes [id number] 100mg Take 1 [facility] 100 mg 1-10 102 capsule by ity of capsule 00:00: mouth in [address] and 1 capsule at noon and 1 capsule in the evening. gabapentin 2023-0 Yes [id number] 100mg Take 1 [facility] 100 mg 1-10 102 capsule by ity of capsule 00:00: mouth in [address] and 1 capsule at noon and 1 capsule in the evening. gabapentin 2023-0 Yes [id number] 100mg Take 1 [facility] 100 mg 1-10 102 capsule by ity of capsule 00:00: mouth in [address] and 1 capsule at noon and 1 capsule in the evening. gabapentin 2023-0 Yes [id number] 100mg Take 1 [facility] 100 mg 1-10 102 capsule by ity of capsule 00:00: mouth in [address] and 1 capsule at noon and 1 capsule in the evening. gabapentin 2023-0 Yes [id number] 100mg Take 1 [facility] 100 mg 1-10 102 capsule by ity of capsule 00:00: mouth in [address] and 1 capsule at noon and 1 capsule in the evening. gabapentin 2023-0 Yes [id number] 100mg Take 1 [facility] 100 mg 1-10 102 capsule by [facility] of capsule 00:00: mouth in [address] morning [place] and 1 capsule at noon and 1 capsule in the evening. gabapentin 2023-0 Yes [id number] 100mg Take 1 [facility] 100 mg 1-10 102 capsule by ity of capsule 00:00: mouth in [address] morning [place] and 1 capsule at noon and 1 capsule in the evening. gabapentin 2023-0 Yes [id number] 100mg Take 1 [facility] 100 mg 1-10 102 capsule by ity of capsule 00:00: mouth in [address] morning [place] and 1 capsule at noon and 1 capsule in the evening. gabapentin 2023-0 Yes [id number] 100mg Take 1 [facility] 100 mg 1-10 102 capsule by ity of capsule 00:00: mouth in [address] and 1 capsule at noon and 1 capsule in the evening. gabapentin 2023-0 Yes [id number] 100mg Take 1 [facility] 100 mg 1-10 102 capsule by ity of capsule 00:00: mouth in [address] and 1 capsule at noon and 1 capsule in the evening. gabapentin 2023-0 Yes [id number] 100mg Take 1 [facility] 100 mg 1-10 102 capsule by ity of capsule 00:00: mouth in [address] and 1 capsule at noon and 1 capsule in the evening. gabapentin 2023-0 Yes [id number] 100mg Take 1 [facility] 100 mg 1-10 102 capsule by ity of capsule 00:00: mouth in [address] and 1 capsule at noon and 1 capsule in the evening. gabapentin 2023-0 Yes [id number] 100mg Take 1 [facility] 100 mg 1-10 102 capsule by ity of capsule 00:00: mouth in [address] and 1 capsule at noon and 1 capsule in the evening. gabapentin 2023-0 Yes [id number] 100mg Take 1 [facility] 100 mg 1-10 102 capsule by ity of capsule 00:00: mouth in [address] and 1 capsule at noon and 1 capsule in the evening. gabapentin 2023-0 Yes [id number] 100mg Take 1 [facility] 100 mg 1-10 102 capsule by ity of capsule 00:00: mouth in [address] and 1 capsule at noon and 1 capsule in the evening. gabapentin 2023-0 Yes [id number] 100mg Take 1 [facility] 100 mg 1-10 102 capsule by ity of capsule 00:00: mouth in [address] and 1 capsule at noon and 1 capsule in the evening. gabapentin 2023-0 Yes [id number] 100mg Take 1 [facility] 100 mg 1-10 102 capsule by ity of capsule 00:00: mouth in [address] and 1 capsule at noon and 1 capsule in the evening. gabapentin 2023-0 Yes [id number] 100mg Take 1 [facility] 100 mg 1-10 102 capsule by ity of capsule 00:00: mouth in [address] and 1 capsule at noon and 1 capsule in the evening. gabapentin 2023-0 Yes [id number] 100mg Take 1 [facility] 100 mg 1-10 102 capsule by ity of capsule 00:00: mouth in [address] and 1 capsule at noon and 1 capsule in the evening. gabapentin 2023-0 Yes [id number] 100mg Take 1 [facility] 100 mg 1-10 102 capsule by ity of capsule 00:00: mouth in [address] and 1 capsule at noon and 1 capsule in the evening. gabapentin 2023-0 Yes [id number] 100mg Take 1 [facility] 100 mg 1-10 102 capsule by ity of capsule 00:00: mouth in [address] and 1 capsule at noon and 1 capsule in the evening. gabapentin 2023-0 Yes [id number] 100mg Take 1 [facility] 100 mg 1-10 102 capsule by ity of capsule 00:00: mouth in [address] and 1 capsule at noon and 1 capsule in the evening. gabapentin 2023-0 Yes [id number] 100mg Take 1 [facility] 100 mg 1-10 102 capsule by ity of capsule 00:00: mouth in [address] and 1 capsule at noon and 1 capsule in the evening. gabapentin 2023-0 Yes [id number] 100mg Take 1 [facility] 100 mg 1-10 102 capsule by ity of capsule 00:00: mouth in [address] and 1 capsule at noon and 1 capsule in the evening. gabapentin 2023-0 Yes [id number] 100mg Take 1 [facility] 100 mg 1-10 102 capsule by ity of capsule 00:00: mouth in [address] morning [place] and 1 capsule at noon and 1 capsule in the evening. gabapentin 2023-0 Yes [id number] 100mg Take 1 [facility] 100 mg 1-10 102 capsule by ity of capsule 00:00: mouth in [address] and 1 capsule at noon and 1 capsule in the evening. gabapentin 2023-0 Yes [id number] 100mg Take 1 [facility] 100 mg 1-10 102 capsule by ity of capsule 00:00: mouth in [address] and 1 capsule at noon and 1 capsule in the evening. gabapentin 2023-0 Yes [id number] 100mg Take 1 [facility] 100 mg 1-10 102 capsule by ity of capsule 00:00: mouth in [address] and 1 capsule at noon and 1 capsule in the evening. gabapentin 2023-0 Yes [id number] 100mg Take 1 [facility] 100 mg 1-10 102 capsule by ity of capsule 00:00: mouth in [address] and 1 capsule at noon and 1 capsule in the evening. gabapentin 2023-0 Yes [id number] 100mg Take 1 [facility] 100 mg 1-10 102 capsule by ity of capsule 00:00: mouth in [address] and 1 capsule at noon and 1 capsule in the evening. gabapentin 2023-0 Yes [id number] 100mg Take 1 [facility] 100 mg 1-10 102 capsule by ity of capsule 00:00: mouth in [address] and 1 capsule at noon and 1 capsule in the evening. gabapentin 2023-0 Yes [id number] 100mg Take 1 [facility] 100 mg 1-10 102 capsule by ity of capsule 00:00: mouth in [address] and 1 capsule at noon and 1 capsule in the evening. gabapentin 2023-0 Yes [id number] 100mg Take 1 [facility] 100 mg 1-10 102 capsule by ity of capsule 00:00: mouth in [address] and 1 capsule at noon and 1 capsule in the evening. gabapentin 2023-0 Yes [id number] 100mg Take 1 [facility] 100 mg 1-10 102 capsule by ity of capsule 00:00: mouth in [address] and 1 capsule at noon and 1 capsule in the evening. gabapentin 2023-0 Yes [id number] 100mg Take 1 [facility] 100 mg 1-10 102 capsule by ity of capsule 00:00: mouth in [address] morning [place] and 1 capsule at noon and 1 capsule in the evening. gabapentin 2023-0 Yes [id number] 100mg Take 1 [facility] 100 mg 1-10 102 capsule by ity of capsule 00:00: mouth in [address] morning [place] and 1 capsule at noon and 1 capsule in the evening. gabapentin 2023-0 Yes [id number] 100mg Take 1 [facility] 100 mg 1-10 102 capsule by ity of capsule 00:00: mouth in [address] and 1 capsule at noon and 1 capsule in the evening. gabapentin 2023-0 Yes [id number] 100mg Take 1 [facility] 100 mg 1-10 102 capsule by ity of capsule 00:00: mouth in [address] and 1 capsule at noon and 1 capsule in the evening. gabapentin 2023-0 Yes [id number] 100mg Take 1 [facility] 100 mg 1-10 102 capsule by ity of capsule 00:00: mouth in [address] and 1 capsule at noon and 1 capsule in the evening. gabapentin 2023-0 Yes [id number] 100mg Take 1 [facility] 100 mg 1-10 102 capsule by ity of capsule 00:00: mouth in [address] and 1 capsule at noon and 1 capsule in the evening. gabapentin 2023-0 Yes [id number] 100mg Take 1 [facility] 100 mg 1-10 102 capsule by ity of capsule 00:00: mouth in [address] and 1 capsule at noon and 1 capsule in the evening. gabapentin 2023-0 Yes [id number] 100mg Take 1 [facility] 100 mg 1-10 102 capsule by ity of capsule 00:00: mouth in [address] and 1 capsule at noon and 1 capsule in the evening. gabapentin 2023-0 Yes [id number] 100mg Take 1 [facility] 100 mg 1-10 102 capsule by ity of capsule 00:00: mouth in [address] and 1 capsule at noon and 1 capsule in the evening. gabapentin 2023-0 Yes [id number] 100mg Take 1 [facility] 100 mg 1-10 102 capsule by ity of capsule 00:00: mouth in [address] morning [place] and 1 capsule at noon and 1 capsule in the evening. gabapentin 2023-0 Yes [id number] 100mg Take 1 [facility] 100 mg 1-10 102 capsule by ity of capsule 00:00: mouth in [address] morning [place] and 1 capsule at noon and 1 capsule in the evening. gabapentin 2023-0 Yes [id number] 100mg Take 1 [facility] 100 mg 1-10 102 capsule by ity of capsule 00:00: mouth in [address] morning [place] and 1 capsule at noon and 1 capsule in the evening. gabapentin 2023-0 Yes [id number] 100mg Take 1 [facility] 100 mg 1-10 102 capsule by ity of capsule 00:00: mouth in [address] morning [place] and 1 capsule at noon and 1 capsule in the evening. gabapentin 2023-0 Yes [id number] 100mg Take 1 [facility] 100 mg 1-10 102 capsule by ity of capsule 00:00: mouth in [address] and 1 capsule at noon and 1 capsule in the evening. lidocaine 2 2023-0 Yes [id number] 5mL Apply 5 mL [facility] % mucosal 1-10 102 to area(s) ity of jelly 00:00: every 6 [place] [address] (six) Medical hours. Branch (Thin layer only) gabapentin 2023-0 Yes [id number] 100mg Take 1 [facility] 100 mg 1-10 102 capsule by ity of capsule 00:00: mouth in [address] and 1 capsule at noon and 1 capsule in the evening. lidocaine 2 2023-0 Yes [id number] 5mL Apply 5 mL [facility] % mucosal 1-10 102 to area(s) ity of jelly 00:00: every 6 [place] [address] (six) Medical hours. Branch (Thin layer only) gabapentin 2023-0 Yes [id number] 100mg Take 1 [facility] 100 mg 1-10 102 capsule by ity of capsule 00:00: mouth in [address] morning [place] and 1 capsule at noon and 1 capsule in the evening. lidocaine 2 2023-0 Yes [id number] 5mL Apply 5 mL [facility] % mucosal 1-10 102 to area(s) ity of jelly 00:00: every 6 [place] [address] (six) Medical hours. Branch (Thin layer only) gabapentin 2023-0 Yes [id number] 100mg Take 1 [facility] 100 mg 1-10 102 capsule by ity of capsule 00:00: mouth in [place] [address] the Medical morning Branch and 1 capsule at noon and 1 capsule in the evening. lidocaine 2 2022-0 Yes [id number] 5mL Apply 5 mL [facility] % mucosal 1-10 102 to area(s) ity of jelly 00:00: every 6 [place] [address] (six) Medical hours. Branch (Thin layer only) gabapentin 2022-0 Yes [id number] 100mg Take 1 [facility] 100 mg 1-10 102 capsule by ity of capsule 00:00: mouth in [place] [address] the Medical morning Branch and 1 capsule at noon and 1 capsule in the evening. lidocaine 2 2022-0 Yes [id number] 5mL Apply 5 mL [facility] % mucosal 1-10 102 to area(s) ity of jelly 00:00: every 6 [place] [address] (six) Medical hours. Branch (Thin layer only) gabapentin 2022-0 Yes [id number] 100mg Take 1 [facility] 100 mg 1-10 102 capsule by ity of capsule 00:00: mouth in [place] [address] the [facility] morning Branch and 1 capsule at noon and 1 capsule in the evening. lidocaine 2 2022-0 Yes [id number] 5mL Apply 5 mL [facility] % mucosal 1-10 102 to area(s) ity of jelly 00:00: every 6 [place] [address] (six) Medical hours. Branch (Thin layer only) gabapentin 3-0 Yes [id number] 100mg Take 1 [facility] 100 mg 1-10 102 capsule by ity of capsule 00:00: mouth in [place] [address] the Medical morning Branch and 1 capsule at noon and 1 capsule in the evening. lidocaine 2 2022-0 Yes [id number] 5mL Apply 5 mL [facility] % mucosal 1-10 102 to area(s) ity of jelly 00:00: every 6 [place] [address] (six) Medical hours. Branch (Thin layer only) gabapentin 2023-0 Yes [id number] 100mg Take 1 [facility] 100 mg 1-10 102 capsule by ity of capsule 00:00: mouth in [place] [address] the Medical morning Branch and 1 capsule at noon and 1 capsule in the evening. lidocaine 2 2022-0 Yes [id number] 5mL Apply 5 mL [facility] % mucosal 1-10 102 to area(s) ity of jelly 00:00: every 6 [place] [address] (six) Medical hours. Branch (Thin layer only) gabapentin 2023-0 Yes [id number] 100mg Take 1 [facility] 100 mg 1-10 102 capsule by ity of capsule 00:00: mouth in [place] 00 the Medical morning Branch and 1 capsule at noon and 1 capsule in the evening. lidocaine 2 3-0 Yes [id number] 5mL Apply 5 mL [facility] % mucosal 1-10 102 to area(s) ity of jelly 00:00: every 6 [place] [address] (six) Medical hours. Branch (Thin layer only) gabapentin 3-0 Yes [id number] 100mg Take 1 [facility] 100 mg 1-10 102 capsule by ity of capsule 00:00: mouth in [place] 00 the Medical morning Branch and 1 capsule at noon and 1 capsule in the evening. lidocaine 2 2022-0 Yes [id number] 5mL Apply 5 mL [facility] % mucosal 1-10 102 to area(s) ity of jelly 00:00: every 6 [place] [address] (six) Medical hours. Branch (Thin layer only) gabapentin 3-0 Yes [id number] 100mg Take 1 [facility] 100 mg 1-10 102 capsule by ity of capsule 00:00: mouth in [place] 00 the Medical morning Branch and 1 capsule at noon and 1 capsule in the evening. lidocaine 2 3-0 Yes [id number] 5mL Apply 5 mL [facility] % mucosal 1-10 102 to area(s) ity of jelly 00:00: every 6 [place] [address] (six) Medical hours. Branch (Thin layer only) gabapentin 2023-0 2023- No [id number] 100mg Take 1 [facility] 100 mg 1-10 -23 102 capsule by ity of capsule 00:00: 00:00 mouth in [place] 00 :00 the Medical morning Branch and 1 capsule at noon and 1 capsule in the evening. gabapentin 2023-0 2023- No [id number] 100mg Take 1 [facility] 100 mg 1-10 -23 102 capsule by ity of capsule 00:00: 00:00 mouth in [place] 00 :00 the Medical morning Branch and 1 capsule at noon and 1 capsule in the evening. gabapentin 2023-0 2023- No [id number] 100mg Take 1 [facility] 100 mg 1-10 -23 102 capsule by ity of capsule 00:00: 00:00 mouth in [place] 00 :00 the Medical morning Branch and 1 capsule at noon and 1 capsule in the evening. gabapentin 2022- No [id number] 100mg Take 1 [facility] 100 mg 04-11 102 capsule by ity of capsule 00:00: 00:00 mouth in [place] 00 :00 the Medical morning Branch and 1 capsule at noon and 1 capsule in the evening. lidocaine 2 2022- No [id number] 5mL Apply 5 mL [facility] % mucosal 04-11 102 to area(s) ity of jelly 00:00: 00:00 every 6 [place] 00 :00 (six) Medical hours. Branch (Thin layer only) lidocaine 2 2022- No [id number] 5mL Apply 5 mL [facility] % mucosal 04-11 102 to area(s) ity of jelly 00:00: 00:00 every 6 [place] 00 :00 (six) Medical hours. Branch (Thin layer only) HYDROcodone 2022- No 4647 1{tbl} Take 1 U nivers -acetaminop 1-10 -18 tablet by it y of hen 5-325 00:00: 05:59 mouth [place] mg tablet 00 :00 every 6 Medical (six) Branch hours as needed for Pain (scale 7-10) for up to 7 days. Indication s: acute pain, cancer pain HYDROcodone 2022-2022- No 4647 1{tbl} Take 1 U nivers -acetaminop 1-10 -18 tablet by it y of hen 5-325 00:00: 05:59 mouth [place] mg tablet 00 :00 every 6 Medical (six) Branch hours as needed for Pain (scale 7-10) for up to 7 days. Indication s: acute pain, cancer pain HYDROcodone 2022-2022- No 4647 1{tbl} Take 1 U nivers -acetaminop 1-10 01-18 tablet by it y of hen 5-325 00:00: 05:59 mouth [place] mg tablet 00 :00 every 6 Medical (six) Branch hours as needed for Pain (scale 7-10) for up to 7 days. Indication s: acute pain, cancer pain HYDROcodone 2022-2022- No 4647 1{tbl} Take 1 U nivers -acetaminop 1-10 -18 tablet by it y of hen 5-325 00:00: 05:59 mouth [place] mg tablet 00 :00 every 6 Medical (six) Branch hours as needed for Pain (scale 7-10) for up to 7 days. Indication s: acute pain, cancer pain HYDROcodone 2022- No 4647 1{tbl} Take 1 U nivers -acetaminop 1-10 -18 tablet by it y of hen 5-325 00:00: 05:59 mouth [place] mg tablet 00 :00 every 6 Medical (six) Branch hours as needed for Pain (scale 7-10) for up to 7 days. Indication s: acute pain, cancer pain HYDROcodone 2022- No 4647 1{tbl} Take 1 U nivers -acetaminop 1-10 18 tablet by it y of hen 5-325 00:00: 05:59 mouth [place] mg tablet 00 :00 every 6 Medical (six) Branch hours as needed for Pain (scale 7-10) for up to 7 days. Indication s: acute pain, cancer pain ampicillin 2021-04- No [id number] 500mg Take 1 [facility] 500 mg -20 03-02 capsule by ity of capsule 00:00: 05:59 mouth [place] 00 :00 every 6 Medical (six) Branch hours for 10 days. buPROPion 2021-04 Yes 150mg Take 150 Uni vers SR 1-15 mg by ity of (WELLBUTRIN 11:23: mouth [place] SR) 150 mg 27 daily. Medical SR tablet Indication Bran ch s: 1tab Qam 2tabs Qpm meloxicam 2021-04 Yes 15mg Take 15 mg Un ean 15 mg 1-15 by mouth ity of tablet 11:23: daily. [place] Medical Branch metoprolol 2021-04 Yes 100mg Take 100 Un ean succinate 1-15 mg by ity of XL 100 mg 11:23: mouth. [place] 24 [facility] Medical tablet Branch SERTraline 2021-04 Yes 50mg Take 50 mg U nivers 50 mg 1-15 by mouth. ity of tablet 11:23: [place] [address] Medical Branch buPROPion 2021-04 Yes 150mg Take 150 Uni vers SR 1-15 mg by ity of (WELLBUTRIN 11:23: mouth [place] SR) 150 mg 27 daily. Medical SR tablet Indication Bran ch s: 1tab Qam 2tabs Qpm meloxicam 2021-04 Yes 15mg Take 15 mg Un ean 15 mg 1-15 by mouth ity of tablet 11:23: daily. [place] [address] Medical Branch metoprolol 2021-04 Yes 100mg Take 100 Un ean succinate 1-15 mg by ity of XL 100 mg 11:23: mouth. 24 hr Medical tablet Branch SERTraline 2021-04 Yes 50mg Take 50 mg U nivers 50 mg 1-15 by mouth. ity of tablet 11:23: [place] [address] Medical Branch buPROPion 2021-04 Yes 150mg Take 150 Uni vers SR 1-15 mg by ity of (WELLBUTRIN 11:23: mouth [place] SR) 150 mg 27 daily. Medical SR tablet Indication Bran ch s: 1tab Qam 2tabs Qpm meloxicam 2021-04 Yes 15mg Take 15 mg Un ean 15 mg 1-15 by mouth ity of tablet 11:23: daily. [place] [address] Medical Branch metoprolol 2021-04 Yes 100mg Take 100 Un ean succinate 1-15 mg by ity of XL 100 mg 11:23: mouth. 24 hr Medical tablet Branch SERTraline 2021-04 Yes 50mg Take 50 mg U nivers 50 mg 1-15 by mouth. ity of tablet 11:23: [place] [address] Medical Branch buPROPion 2021-04 Yes 150mg Take 150 Uni vers SR 1-15 mg by ity of (WELLBUTRIN 11:23: mouth [place] SR) 150 mg 27 daily. Medical SR tablet Indication Bran ch s: 1tab Qam 2tabs Qpm meloxicam 2021-04 Yes 15mg Take 15 mg Un ean 15 mg 1-15 by mouth ity of tablet 11:23: daily. [place] [address] Medical Branch metoprolol 2021-04 Yes 100mg Take 100 Un ean succinate 1-15 mg by ity of XL 100 mg 11:23: mouth. [place] 24 hr Medical tablet Branch SERTraline 2021-04 Yes 50mg Take 50 mg U nivers 50 mg 1-15 by mouth. ity of tablet 11:23: [place] [address] Medical Branch buPROPion 2021-04 Yes 150mg Take 150 Uni vers SR 1-15 mg by ity of (WELLBUTRIN 11:23: mouth [place] SR) 150 mg 27 daily. Medical SR tablet Indication Bran ch s: 1tab Qam 2tabs Qpm meloxicam 2021-04 Yes 15mg Take 15 mg Un ean 15 mg 1-15 by mouth ity of tablet 11:23: daily. [place] [address] Medical Branch metoprolol 2021-04 Yes 100mg Take 100 Un ean succinate 1-15 mg by ity of XL 100 mg 11:23: mouth. [place] 24 hr Medical tablet Branch SERTraline 2021-04 Yes 50mg Take 50 mg U nivers 50 mg 1-15 by mouth. ity of tablet 11:23: [place] [address] Medical Branch buPROPion 2021-04 Yes 150mg Take 150 [facility] vers SR 1-15 mg by ity of (WELLBUTRIN 11:23: mouth [place] SR) 150 mg 27 daily. Medical SR tablet Indication Bran ch s: 1tab Qam 2tabs Qpm meloxicam 2021-04 Yes 15mg Take 15 mg Un ean 15 mg 1-15 by mouth ity of tablet 11:23: daily. [place] [address] Medical Branch metoprolol 2021-04 Yes 100mg Take 100 Un ean succinate 1-15 mg by ity of XL 100 mg 11:23: mouth. 24 hr Medical tablet Branch SERTraline 2021-04 Yes 50mg Take 50 mg U nivers 50 mg 1-15 by mouth. ity of tablet 11:23: [address] buPROPion 2021-04 Yes 150mg Take 150 Uni vers SR 1-15 mg by ity of (WELLBUTRIN 11:23: mouth [place] SR) 150 mg 27 daily. Medical SR tablet Indication Bran ch s: 1tab Qam 2tabs Qpm meloxicam 2021-04 Yes 15mg Take 15 mg Un ean 15 mg 1-15 by mouth ity of tablet 11:23: daily. [place] [address] Medical Branch metoprolol 2021-04 Yes 100mg Take 100 Un ean succinate 1-15 mg by ity of XL 100 mg 11:23: mouth. [place] 24 hr Medical tablet Branch SERTraline 2021-04 Yes 50mg Take 50 mg U nivers 50 mg 1-15 by mouth. ity of tablet 11:23: [place] 27 Medical Branch buPROPion 2021-04 Yes 150mg Take 150 Uni vers SR 1-15 mg by ity of (WELLBUTRIN 11:23: mouth [place] SR) 150 mg 27 daily. Medical SR tablet Indication Bran ch s: 1tab Qam 2tabs Qpm meloxicam 2021-04 Yes 15mg Take 15 mg Un ean 15 mg 1-15 by mouth ity of tablet 11:23: daily. [place] [address] Medical Branch metoprolol 2021-04 Yes 100mg Take 100 Un ean succinate 1-15 mg by ity of XL 100 mg 11:23: mouth. [place] 24 hr Medical tablet Branch SERTraline 2021-04 Yes 50mg Take 50 mg U nivers 50 mg 1-15 by mouth. ity of tablet 11:23: [place] [address] Medical Branch buPROPion 2021-04 Yes 150mg Take 150 Uni vers SR 1-15 mg by ity of (WELLBUTRIN 11:23: mouth [place] SR) 150 mg 27 daily. Medical SR tablet Indication Bran ch s: 1tab Qam 2tabs Qpm meloxicam 2021-04 Yes 15mg Take 15 mg Un ean 15 mg 1-15 by mouth ity of tablet 11:23: daily. [place] [address] Medical Branch metoprolol 2021-04 Yes 100mg Take 100 Un ean succinate 1-15 mg by ity of XL 100 mg 11:23: mouth. 24 hr Medical tablet Branch SERTraline 2021-04 Yes 50mg Take 50 mg U nivers 50 mg 1-15 by mouth. ity of tablet 11:23: [place] [address] Medical Branch buPROPion 2021-04 Yes 150mg Take 150 Uni vers SR 1-15 mg by ity of (WELLBUTRIN 11:23: mouth [place] SR) 150 mg 27 daily. Medical SR tablet Indication Bran ch s: 1tab Qam 2tabs Qpm meloxicam 2021-04 Yes 15mg Take 15 mg Un ean 15 mg 1-15 by mouth ity of tablet 11:23: daily. [place] [address] Medical Branch metoprolol 2021-04 Yes 100mg Take 100 Un ean succinate 1-15 mg by ity of XL 100 mg 11:23: mouth. [place] 24 hr Medical tablet Branch SERTraline 2021-04 Yes 50mg Take 50 mg U nivers 50 mg 1-15 by mouth. ity of tablet 11:23: [place] [address] Medical Branch buPROPion 2021-04 Yes 150mg Take 150 [facility] vers SR 1-15 mg by ity of (WELLBUTRIN 11:23: mouth [place] SR) 150 mg 27 daily. Medical SR tablet Indication Bran ch s: 1tab Qam 2tabs Qpm meloxicam 2021-04 Yes 15mg Take 15 mg Un ean 15 mg 1-15 by mouth ity of tablet 11:23: daily. [place] [address] Medical Branch metoprolol 2021-04 Yes 100mg Take 100 Un ean succinate 1-15 mg by ity of XL 100 mg 11:23: mouth. [place] 24 hr Medical tablet Branch SERTraline 2021-04 Yes 50mg Take 50 mg U nivers 50 mg 1-15 by mouth. ity of tablet 11:23: [place] [address] Medical Branch buPROPion 2021-04 Yes 150mg Take 150 Uni vers SR 1-15 mg by ity of (WELLBUTRIN 11:23: mouth [place] SR) 150 mg 27 daily. Medical SR tablet Indication Bran ch s: 1tab Qam 2tabs Qpm meloxicam 2021-04 Yes 15mg Take 15 mg Un ean 15 mg 1-15 by mouth ity of tablet 11:23: daily. [place] [address] Medical Branch metoprolol 2021-04 Yes 100mg Take 100 Un ean succinate 1-15 mg by ity of XL 100 mg 11:23: mouth. [place] hr Medical tablet Branch SERTraline 2021-04 Yes 50mg Take 50 mg U nivers 50 mg 1-15 by mouth. ity of tablet 11:23: [place] [address] Medical Branch buPROPion 2021-04 Yes 150mg Take 150 Uni vers SR 1-15 mg by ity of (WELLBUTRIN 11:23: mouth [place] SR) 150 mg 27 daily. Medical SR tablet Indication Bran ch s: 1tab Qam 2tabs Qpm metoprolol 2021-04 Yes 100mg Take 100 Un ean succinate 1-15 mg by ity of XL 100 mg 11:23: mouth. [place] 24 hr Medical tablet Branch SERTraline 2021-04 Yes 50mg Take 50 mg U nivers 50 mg 1-15 by mouth. ity of tablet 11:23: [place] [address] Medical Branch buPROPion 2021-04 Yes 150mg Take 150 Uni vers SR 1-15 mg by ity of (WELLBUTRIN 11:23: mouth [place] SR) 150 mg 27 daily. Medical SR tablet Indication Bran ch s: 1tab Qam 2tabs Qpm metoprolol 2021-04 Yes 100mg Take 100 Un ean succinate 1-15 mg by ity of XL 100 mg 11:23: mouth. 24 hr 27 Medical tablet Branch SERTraline 2021-04 Yes 50mg Take 50 mg U nivers 50 mg 1-15 by mouth. ity of tablet 11:23: Medical Branch buPROPion 2021-04 Yes 150mg Take 150 Uni vers SR 1-15 mg by ity of (WELLBUTRIN 11:23: mouth [place] SR) 150 mg 27 daily. Medical SR tablet Indication Bran ch s: 1tab Qam 2tabs Qpm metoprolol 2021-04 Yes 100mg Take 100 Un ean succinate 1-15 mg by ity of XL 100 mg 11:23: mouth. 24 hr Medical tablet Branch SERTraline 2021-04 Yes 50mg Take 50 mg U nivers 50 mg 1-15 by mouth. ity of tablet 11:23: Medical Branch buPROPion 2021-04 Yes 150mg Take 150 Uni vers SR 1-15 mg by ity of (WELLBUTRIN 11:23: mouth [place] SR) 150 mg 27 daily. Medical SR tablet Indication Bran ch s: 1tab Qam 2tabs Qpm metoprolol 2021-04 Yes 100mg Take 100 Un ean succinate 1-15 mg by ity of XL 100 mg 11:23: mouth. 24 hr Medical tablet Branch SERTraline 2021-04 Yes 50mg Take 50 mg U nivers 50 mg 1-15 by mouth. ity of tablet 11:23: Medical Branch buPROPion 2021-04 Yes 150mg Take 150 Uni vers SR 1-15 mg by ity of (WELLBUTRIN 11:23: mouth [place] SR) 150 mg 27 daily. Medical SR tablet Indication Bran ch s: 1tab Qam 2tabs Qpm metoprolol 2021-04 Yes 100mg Take 100 Un ean succinate 1-15 mg by ity of XL 100 mg 11:23: mouth. 24 hr 27 Medical tablet Branch SERTraline 2021-04 Yes 50mg Take 50 mg U nivers 50 mg 1-15 by mouth. ity of tablet 11:23: [facility] buPROPion 2021-04 Yes 150mg Take 150 Uni vers SR 1-15 mg by [facility]y of (WELLBUTRIN 11:23: mouth [place] SR) 150 mg 27 daily. Medical SR tablet Indication [facility]: 1tab Qam 2tabs Qpm metoprolol 2021-04 Yes 100mg Take 100 Un ean succinate 1-15 mg by [facility] of XL 100 mg 11:23: mouth. 24 hr Medical tablet Branch SERTraline 2021-04 Yes 50mg Take 50 mg U nivers 50 mg 1-15 by mouth. ity of tablet 11:23: [facility] buPROPion 2021-04 Yes 150mg Take 150 Uni vers SR 1-15 mg by [facility] of (WELLBUTRIN 11:23: mouth [place] SR) 150 mg 27 daily. Medical SR tablet Indication [facility]: 1tab Qam 2tabs Qpm metoprolol 2021-04 Yes 100mg Take 100 Un ean succinate 1-15 mg by [facility] of XL 100 mg 11:23: mouth. 24 hr Medical tablet Branch SERTraline 2021-04 Yes 50mg Take 50 mg U nivers 50 mg 1-15 by mouth. ity of tablet 11:23: [facility] buPROPion 2021-04 Yes 150mg Take 150 Uni vers SR 1-15 mg by [facility]y of (WELLBUTRIN 11:23: mouth [place] SR) 150 mg 27 daily. Medical SR tablet Indication [facility]: 1tab Qam 2tabs Qpm metoprolol 2021-04 Yes 100mg Take 100 Un ean succinate 1-15 mg by [facility] of XL 100 mg 11:23: mouth. 24 hr Medical tablet Branch SERTraline 2021-04 Yes 50mg Take 50 mg U nivers 50 mg 1-15 by mouth. ity of tablet 11:23: [facility] buPROPion 2021-04 Yes 150mg Take 150 Uni vers SR 1-15 mg by ity of (WELLBUTRIN 11:23: mouth [place] SR) 150 mg 27 daily. Medical SR tablet Indication [facility]: 1tab Qam 2tabs Qpm metoprolol 2021-04 Yes 100mg Take 100 Un ean succinate 1-15 mg by [facility]y of XL 100 mg 11:23: mouth. 24 hr Medical tablet Branch SERTraline 2021-04 Yes 50mg Take 50 mg U nivers 50 mg 1-15 by mouth. ity of tablet 11:23: [facility] buPROPion 2021-04 Yes 150mg Take 150 Uni vers SR 1-15 mg by [facility]y of (WELLBUTRIN 11:23: mouth [place] SR) 150 mg 27 daily. Medical SR tablet Indication [facility]: 1tab Qam 2tabs Qpm metoprolol 2021-04 Yes 100mg Take 100 Un ean succinate 1-15 mg by [facility]y of XL 100 mg 11:23: mouth. Medical tablet Branch SERTraline 2021-04 Yes 50mg Take 50 mg U nivers 50 mg 1-15 by mouth. ity of tablet 11:23: [facility] buPROPion 2021-04 Yes 150mg Take 150 Uni vers SR 1-15 mg by [facility]y of (WELLBUTRIN 11:23: mouth [place] SR) 150 mg 27 daily. Medical SR tablet Indication [facility]: 1tab Qam 2tabs Qpm metoprolol 2021-04 Yes 100mg Take 100 Un ean succinate 1-15 mg by [facility] of XL 100 mg 11:23: mouth. Medical tablet Branch SERTraline 2021-04 Yes 50mg Take 50 mg U nivers 50 mg 1-15 by mouth. ity of tablet 11:23: [facility] buPROPion 2021-04 Yes 150mg Take 150 Uni vers SR 1-15 mg by [facility] of (WELLBUTRIN 11:23: mouth [place] SR) 150 mg 27 daily. Medical SR tablet Indication [facility]: 1tab Qam 2tabs Qpm metoprolol 2021-04 Yes 100mg Take 100 Un ean succinate 1-15 mg by [facility] of XL 100 mg 11:23: mouth. hr Medical tablet Branch SERTraline 2021-04 Yes 50mg Take 50 mg U nivers 50 mg 1-15 by mouth. ity of tablet 11:23: [facility] buPROPion 2021-04 Yes 150mg Take 150 Uni vers SR 1-15 mg by [facility]y of (WELLBUTRIN 11:23: mouth [place] SR) 150 mg 27 daily. Medical SR tablet Indication [facility]: 1tab Qam 2tabs Qpm metoprolol 2021-04 Yes 100mg Take 100 Un ean succinate 1-15 mg by [facility]y of XL 100 mg 11:23: mouth. 24 hr Medical tablet Branch SERTraline 2021-04 Yes 50mg Take 50 mg U nivers 50 mg 1-15 by mouth. ity of tablet 11:23: [facility] buPROPion 2021-04 Yes 150mg Take 150 Uni vers SR 1-15 mg by [facility]y of (WELLBUTRIN 11:23: mouth [place] SR) 150 mg 27 daily. Medical SR tablet Indication [facility]: 1tab Qam 2tabs Qpm metoprolol 2021-04 Yes 100mg Take 100 Un ean succinate 1-15 mg by [facility]y of XL 100 mg 11:23: mouth. Medical tablet Branch SERTraline 2021-04 Yes 50mg Take 50 mg U nivers 50 mg 1-15 by mouth. ity of tablet 11:23: [facility] buPROPion 2021-04 Yes 150mg Take 150 Uni vers SR 1-15 mg by [facility] of (WELLBUTRIN 11:23: mouth [place] SR) 150 mg 27 daily. Medical SR tablet Indication [facility]: 1tab Qam 2tabs Qpm metoprolol 2021-04 Yes 100mg Take 100 Un ean succinate 1-15 mg by [facility]y of XL 100 mg 11:23: mouth. Medical tablet Branch SERTraline 2021-04 Yes 50mg Take 50 mg U nivers 50 mg 1-15 by mouth. ity of tablet 11:23: [facility] buPROPion 2021-04 Yes 150mg Take 150 Uni vers SR 1-15 mg by [facility]y of (WELLBUTRIN 11:23: mouth [place] SR) 150 mg 27 daily. Medical SR tablet Indication [facility]: 1tab Qam 2tabs Qpm metoprolol 2021-04 Yes 100mg Take 100 Un ean succinate 1-15 mg by [facility] of XL 100 mg 11:23: mouth. 24 hr Medical tablet Branch SERTraline 2021-04 Yes 50mg Take 50 mg U nivers 50 mg 1-15 by mouth. ity of tablet 11:23: [facility] buPROPion 2021-04 Yes 150mg Take 150 Uni vers SR 1-15 mg by [facility]y of (WELLBUTRIN 11:23: mouth [place] SR) 150 mg 27 daily. Medical SR tablet Indication [facility]: 1tab Qam 2tabs Qpm metoprolol 2021-04 Yes 100mg Take 100 Un ean succinate 1-15 mg by [facility] of XL 100 mg 11:23: mouth. 24 hr Medical tablet Branch SERTraline 2021-04 Yes 50mg Take 50 mg U nivers 50 mg 1-15 by mouth. ity of tablet 11:23: [facility] buPROPion 2021-04 Yes 150mg Take 150 Uni vers SR 1-15 mg by [facility] of (WELLBUTRIN 11:23: mouth [place] SR) 150 mg 27 daily. Medical SR tablet Indication [facility]: 1tab Qam 2tabs Qpm metoprolol 2021-04 Yes 100mg Take 100 Un ean succinate 1-15 mg by [facility] of XL 100 mg 11:23: mouth. 24 hr Medical tablet Branch SERTraline 2021-04 Yes 50mg Take 50 mg U nivers 50 mg 1-15 by mouth. ity of tablet 11:23: [facility] buPROPion 2021-04 Yes 150mg Take 150 Uni vers SR 1-15 mg by [facility] of (WELLBUTRIN 11:23: mouth [place] SR) 150 mg 27 daily. Medical SR tablet Indication [facility]: 1tab Qam 2tabs Qpm metoprolol 2021-04 Yes 100mg Take 100 Un ean succinate 1-15 mg by [facility] of XL 100 mg 11:23: mouth. 24 hr Medical tablet Branch SERTraline 2021-04 Yes 50mg Take 50 mg U nivers 50 mg 1-15 by mouth. ity of tablet 11:23: [facility] buPROPion 2021-04 Yes 150mg Take 150 Uni vers SR 1-15 mg by [facility] of (WELLBUTRIN 11:23: mouth [place] SR) 150 mg 27 daily. Medical SR tablet Indication [facility]: 1tab Qam 2tabs Qpm metoprolol 2021-04 Yes 100mg Take 100 Un ean succinate 1-15 mg by [facility] of XL 100 mg 11:23: mouth. Medical tablet Branch SERTraline 2021-04 Yes 50mg Take 50 mg U nivers 50 mg 1-15 by mouth. ity of tablet 11:23: [facility] buPROPion 2021-04 Yes 150mg Take 150 Uni vers SR 1-15 mg by [facility]y of (WELLBUTRIN 11:23: mouth [place] SR) 150 mg 27 daily. Medical SR tablet Indication [facility]: 1tab Qam 2tabs Qpm metoprolol 2021-04 Yes 100mg Take 100 Un ean succinate 1-15 mg by [facility]y of XL 100 mg 11:23: mouth. Medical tablet Branch SERTraline 2021-04 Yes 50mg Take 50 mg U nivers 50 mg 1-15 by mouth. ity of tablet 11:23: [facility] buPROPion 2021-04 Yes 150mg Take 150 Uni vers SR 1-15 mg by [facility]y of (WELLBUTRIN 11:23: mouth [place] SR) 150 mg 27 daily. Medical SR tablet Indication [facility]: 1tab Qam 2tabs Qpm metoprolol 2021-04 Yes 100mg Take 100 Un ean succinate 1-15 mg by [facility]y of XL 100 mg 11:23: mouth. Medical tablet Branch SERTraline 2021-04 Yes 50mg Take 50 mg U nivers 50 mg 1-15 by mouth. ity of tablet 11:23: [facility] buPROPion 2021-04 Yes 150mg Take 150 Uni vers SR 1-15 mg by [facility] of (WELLBUTRIN 11:23: mouth [place] SR) 150 mg 27 daily. Medical SR tablet Indication [facility]: 1tab Qam 2tabs Qpm metoprolol 2021-04 Yes 100mg Take 100 Un ean succinate 1-15 mg by [facility] of XL 100 mg 11:23: mouth. Medical tablet Branch SERTraline 2021-04 Yes 50mg Take 50 mg U nivers 50 mg 1-15 by mouth. ity of tablet 11:23: [facility] buPROPion 2021-04 Yes 150mg Take 150 Uni vers SR 1-15 mg by [facility] of (WELLBUTRIN 11:23: mouth [place] SR) 150 mg 27 daily. Medical SR tablet Indication [facility]: 1tab Qam 2tabs Qpm metoprolol 2021-04 Yes 100mg Take 100 Un ean succinate 1-15 mg by [facility] of XL 100 mg 11:23: mouth. 24 hr Medical tablet Branch SERTraline 2021-04 Yes 50mg Take 50 mg U nivers 50 mg 1-15 by mouth. ity of tablet 11:23: [facility] buPROPion 2021-04 Yes 150mg Take 150 Uni vers SR 1-15 mg by [facility]y of (WELLBUTRIN 11:23: mouth [place] SR) 150 mg 27 daily. Medical SR tablet Indication [facility]: 1tab Qam 2tabs Qpm metoprolol 2021-04 Yes 100mg Take 100 Un ean succinate 1-15 mg by [facility] of XL 100 mg 11:23: mouth. 24 hr Medical tablet Branch SERTraline 2021-04 Yes 50mg Take 50 mg U nivers 50 mg 1-15 by mouth. ity of tablet 11:23: [facility] buPROPion 2021-04 Yes 150mg Take 150 Uni vers SR 1-15 mg by [facility]y of (WELLBUTRIN 11:23: mouth [place] SR) 150 mg 27 daily. Medical SR tablet Indication [facility]: 1tab Qam 2tabs Qpm metoprolol 2021-04 Yes 100mg Take 100 Un ean succinate 1-15 mg by [facility]y of XL 100 mg 11:23: mouth. 24 hr Medical tablet Branch SERTraline 2021-04 Yes 50mg Take 50 mg U nivers 50 mg 1-15 by mouth. ity of tablet 11:23: [facility] buPROPion 2021-04 Yes 150mg Take 150 Uni vers SR 1-15 mg by ity of (WELLBUTRIN 11:23: mouth [place] SR) 150 mg 27 daily. Medical SR tablet Indication [facility]: 1tab Qam 2tabs Qpm metoprolol 2021-04 Yes 100mg Take 100 Un ean succinate 1-15 mg by ity of XL 100 mg 11:23: mouth. 24 hr Medical tablet Branch SERTraline 2021-04 Yes 50mg Take 50 mg U nivers 50 mg 1-15 by mouth. ity of tablet 11:23: [facility] buPROPion 2021-04 Yes 150mg Take 150 Uni vers SR 1-15 mg by ity of (WELLBUTRIN 11:23: mouth [place] SR) 150 mg 27 daily. Medical SR tablet Indication [facility]: 1tab Qam 2tabs Qpm metoprolol 2021-04 Yes 100mg Take 100 Un ean succinate 1-15 mg by ity of XL 100 mg 11:23: mouth. 24 hr Medical tablet Branch SERTraline 2021-04 Yes 50mg Take 50 mg U nivers 50 mg 1-15 by mouth. ity of tablet 11:23: [facility] buPROPion 2021-04 Yes 150mg Take 150 Uni vers SR 1-15 mg by ity of (WELLBUTRIN 11:23: mouth [place] SR) 150 mg 27 daily. Medical SR tablet Indication [facility]: 1tab Qam 2tabs Qpm metoprolol 2021-04 Yes 100mg Take 100 Un ean succinate 1-15 mg by ity of XL 100 mg 11:23: mouth. 24 hr Medical tablet Branch SERTraline 2021-04 Yes 50mg Take 50 mg U nivers 50 mg 1-15 by mouth. ity of tablet 11:23: [facility] buPROPion 2021-04 Yes 150mg Take 150 Uni vers SR 1-15 mg by ity of (WELLBUTRIN 11:23: mouth [place] SR) 150 mg 27 daily. Medical SR tablet Indication [facility]: 1tab Qam 2tabs Qpm metoprolol 2021-04 Yes 100mg Take 100 Un ean succinate 1-15 mg by ity of XL 100 mg 11:23: mouth. 24 hr Medical tablet Branch SERTraline 2021-04 Yes 50mg Take 50 mg U nivers 50 mg 1-15 by mouth. ity of tablet 11:23: [facility] buPROPion 2021-04 Yes 150mg Take 150 Uni vers SR 1-15 mg by ity of (WELLBUTRIN 11:23: mouth [place] SR) 150 mg 27 daily. Medical SR tablet Indication [facility]: 1tab Qam 2tabs Qpm metoprolol 2021-04 Yes 100mg Take 100 Un ean succinate 1-15 mg by ity of XL 100 mg 11:23: mouth. 24 hr Medical tablet Branch SERTraline 2021-04 Yes 50mg Take 50 mg U nivers 50 mg 1-15 by mouth. ity of tablet 11:23: [facility] buPROPion 2021-04 Yes 150mg Take 150 Uni vers SR 1-15 mg by ity of (WELLBUTRIN 11:23: mouth [place] SR) 150 mg 27 daily. Medical SR tablet Indication [facility]: 1tab Qam 2tabs Qpm metoprolol 2021-04 Yes 100mg Take 100 Un ean succinate 1-15 mg by [facility]y of XL 100 mg 11:23: mouth. 24 hr Medical tablet Branch SERTraline 2021-04 Yes 50mg Take 50 mg U nivers 50 mg 1-15 by mouth. ity of tablet 11:23: [facility] buPROPion 2021-04 Yes 150mg Take 150 Uni vers SR 1-15 mg by ity of (WELLBUTRIN 11:23: mouth [place] SR) 150 mg 27 daily. Medical SR tablet Indication [facility]: 1tab Qam 2tabs Qpm metoprolol 2021-04 Yes 100mg Take 100 Un ean succinate 1-15 mg by ity of XL 100 mg 11:23: mouth. hr Medical tablet Branch SERTraline 2021-04 Yes 50mg Take 50 mg U nivers 50 mg 1-15 by mouth. ity of tablet 11:23: [facility] buPROPion 2021-04 Yes 150mg Take 150 Uni vers SR 1-15 mg by ity of (WELLBUTRIN 11:23: mouth [place] SR) 150 mg 27 daily. Medical SR tablet Indication [facility]: 1tab Qam 2tabs Qpm metoprolol 2021-04 Yes 100mg Take 100 Un ean succinate 1-15 mg by ity of XL 100 mg 11:23: mouth. 24 hr Medical tablet Branch SERTraline 2021-04 Yes 50mg Take 50 mg U nivers 50 mg 1-15 by mouth. ity of tablet 11:23: [facility] buPROPion 2021-04 Yes 150mg Take 150 Uni vers SR 1-15 mg by ity of (WELLBUTRIN 11:23: mouth [place] SR) 150 mg 27 daily. Medical SR tablet Indication [facility]: 1tab Qam 2tabs Qpm metoprolol 2021-04 Yes 100mg Take 100 Un ean succinate 1-15 mg by ity of XL 100 mg 11:23: mouth. 24 hr Medical tablet Branch SERTraline 2021-04 Yes 50mg Take 50 mg U nivers 50 mg 1-15 by mouth. ity of tablet 11:23: [facility] buPROPion 2021-04 Yes 150mg Take 150 Uni vers SR 1-15 mg by ity of (WELLBUTRIN 11:23: mouth [place] SR) 150 mg 27 daily. Medical SR tablet Indication [facility]: 1tab Qam 2tabs Qpm metoprolol 2021-04 Yes 100mg Take 100 Un ean succinate 1-15 mg by ity of XL 100 mg 11:23: mouth. Medical tablet Branch SERTraline 2021-04 Yes 50mg Take 50 mg U nivers 50 mg 1-15 by mouth. ity of tablet 11:23: [facility] buPROPion 2021-04 Yes 150mg Take 150 Uni vers SR 1-15 mg by ity of (WELLBUTRIN 11:23: mouth [place] SR) 150 mg 27 daily. Medical SR tablet Indication [facility]: 1tab Qam 2tabs Qpm metoprolol 2021-04 Yes 100mg Take 100 Un ean succinate 1-15 mg by ity of XL 100 mg 11:23: mouth. Medical tablet Branch SERTraline 2021-04 Yes 50mg Take 50 mg U nivers 50 mg 1-15 by mouth. ity of tablet 11:23: [facility] buPROPion 2021-04 Yes 150mg Take 150 Uni vers SR 1-15 mg by ity of (WELLBUTRIN 11:23: mouth [place] SR) 150 mg 27 daily. Medical SR tablet Indication [facility]: 1tab Qam 2tabs Qpm metoprolol 2021-04 Yes 100mg Take 100 Un ean succinate 1-15 mg by ity of XL 100 mg 11:23: mouth. Medical tablet Branch SERTraline 2021-04 Yes 50mg Take 50 mg U nivers 50 mg 1-15 by mouth. ity of tablet 11:23: [facility] buPROPion 2021-04 Yes 150mg Take 150 Uni vers SR 1-15 mg by ity of (WELLBUTRIN 11:23: mouth [place] SR) 150 mg 27 daily. Medical SR tablet Indication [facility]: 1tab Qam 2tabs Qpm metoprolol 2021-04 Yes 100mg Take 100 Un ean succinate 1-15 mg by ity of XL 100 mg 11:23: mouth. 24 hr Medical tablet Branch SERTraline 2021-04 Yes 50mg Take 50 mg U nivers 50 mg 1-15 by mouth. ity of tablet 11:23: [facility] buPROPion 2021-04 Yes 150mg Take 150 Uni vers SR 1-15 mg by ity of (WELLBUTRIN 11:23: mouth [place] SR) 150 mg 27 daily. Medical SR tablet Indication [facility]: 1tab Qam 2tabs Qpm metoprolol 2021-04 Yes 100mg Take 100 Un ean succinate 1-15 mg by ity of XL 100 mg 11:23: mouth. 24 hr Medical tablet Branch SERTraline 2021-04 Yes 50mg Take 50 mg U nivers 50 mg 1-15 by mouth. ity of tablet 11:23: Medical [facility] buPROPion 2021-04 Yes 150mg Take 150 Uni vers SR 1-15 mg by ity of (WELLBUTRIN 11:23: mouth [place] SR) 150 mg 27 daily. Medical SR tablet Indication [facility]: 1tab Qam 2tabs Qpm metoprolol 2021-04 Yes 100mg Take 100 Un ean succinate 1-15 mg by ity of XL 100 mg 11:23: mouth. 24 hr Medical tablet Branch SERTraline 2021-04 Yes 50mg Take 50 mg U nivers 50 mg 1-15 by mouth. ity of tablet 11:23: Medical [facility] buPROPion 2021-04 Yes 150mg Take 150 Uni vers SR 1-15 mg by ity of (WELLBUTRIN 11:23: mouth [place] SR) 150 mg 27 daily. Medical SR tablet Indication [facility]: 1tab Qam 2tabs Qpm metoprolol 2021-04 Yes 100mg Take 100 Un ean succinate 1-15 mg by ity of XL 100 mg 11:23: mouth. 24 hr Medical tablet Branch SERTraline 2021-04 Yes 50mg Take 50 mg U nivers 50 mg 1-15 by mouth. ity of tablet 11:23: Medical [facility] buPROPion 2021-04 Yes 150mg Take 150 Uni vers SR 1-15 mg by ity of (WELLBUTRIN 11:23: mouth [place] SR) 150 mg 27 daily. Medical SR tablet Indication [facility]: 1tab Qam 2tabs Qpm metoprolol 2021-04 Yes 100mg Take 100 Un ean succinate 1-15 mg by ity of XL 100 mg 11:23: mouth. 24 hr Medical tablet Branch SERTraline 2021-04 Yes 50mg Take 50 mg U nivers 50 mg 1-15 by mouth. ity of tablet 11:23: Medical [facility] buPROPion 2021-04 Yes 150mg Take 150 Uni vers SR 1-15 mg by ity of (WELLBUTRIN 11:23: mouth [place] SR) 150 mg 27 daily. Medical SR tablet Indication [facility]: 1tab Qam 2tabs Qpm metoprolol 2021-04 Yes 100mg Take 100 Un ean succinate 1-15 mg by ity of XL 100 mg 11:23: mouth. 24 hr Medical tablet Branch SERTraline 2021-04 Yes 50mg Take 50 mg U nivers 50 mg 1-15 by mouth. ity of tablet 11:23: Medical Branch buPROPion 2021-04 Yes 150mg Take 150 Uni vers SR 1-15 mg by ity of (WELLBUTRIN 11:23: mouth [place] SR) 150 mg 27 daily. Medical SR tablet Indication [facility]: 1tab Qam 2tabs Qpm metoprolol 2021-04 Yes 100mg Take 100 Un ean succinate 1-15 mg by ity of XL 100 mg 11:23: mouth. 24 hr Medical tablet Branch SERTraline 2021-04 Yes 50mg Take 50 mg U nivers 50 mg 1-15 by mouth. ity of tablet 11:23: Medical [facility] buPROPion 2021-04 Yes 150mg Take 150 Uni vers SR 1-15 mg by ity of (WELLBUTRIN 11:23: mouth [place] SR) 150 mg 27 daily. Medical SR tablet Indication [facility]: 1tab Qam 2tabs Qpm metoprolol 2021-04 Yes 100mg Take 100 Un ean succinate 1-15 mg by ity of XL 100 mg 11:23: mouth. 24 hr Medical tablet Branch SERTraline 2021-04 Yes 50mg Take 50 mg U nivers 50 mg 1-15 by mouth. ity of tablet 11:23: [facility] buPROPion 2021-04 Yes 150mg Take 150 Uni vers SR 1-15 mg by ity of (WELLBUTRIN 11:23: mouth [place] SR) 150 mg 27 daily. Medical SR tablet Indication [facility]: 1tab Qam 2tabs Qpm metoprolol 2021-04 Yes 100mg Take 100 Un ean succinate 1-15 mg by ity of XL 100 mg 11:23: mouth. 24 hr Medical tablet Branch SERTraline 2021-04 Yes 50mg Take 50 mg U nivers 50 mg 1-15 by mouth. ity of tablet 11:23: Medical Branch buPROPion 2021-04 Yes 150mg Take 150 Uni vers SR 1-15 mg by ity of (WELLBUTRIN 11:23: mouth [place] SR) 150 mg 27 daily. Medical SR tablet Indication [facility]: 1tab Qam 2tabs Qpm metoprolol 2021-04 Yes 100mg Take 100 Un ean succinate 1-15 mg by ity of XL 100 mg 11:23: mouth. 24 hr Medical tablet Branch SERTraline 2021-04 Yes 50mg Take 50 mg U nivers 50 mg 1-15 by mouth. ity of tablet 11:23: Medical Branch buPROPion 2021-04 Yes 150mg Take 150 Uni vers SR 1-15 mg by ity of (WELLBUTRIN 11:23: mouth [place] SR) 150 mg 27 daily. Medical SR tablet Indication [facility]: 1tab Qam 2tabs Qpm metoprolol 2021-04 Yes 100mg Take 100 Un ean succinate 1-15 mg by ity of XL 100 mg 11:23: mouth. 24 hr Medical tablet Branch SERTraline 2021-04 Yes 50mg Take 50 mg U nivers 50 mg 1-15 by mouth. ity of tablet 11:23: Medical Branch buPROPion 2021-04 Yes 150mg Take 150 Uni vers SR 1-15 mg by ity of (WELLBUTRIN 11:23: mouth [place] SR) 150 mg 27 daily. Medical SR tablet Indication [facility]: 1tab Qam 2tabs Qpm metoprolol 2021-04 Yes 100mg Take 100 Un ean succinate 1-15 mg by ity of XL 100 mg 11:23: mouth. 24 hr Medical tablet Branch SERTraline 2021-04 Yes 50mg Take 50 mg U nivers 50 mg 1-15 by mouth. ity of tablet 11:23: Medical Branch buPROPion 2021-04 Yes 150mg Take 150 Uni vers SR 1-15 mg by ity of (WELLBUTRIN 11:23: mouth [place] SR) 150 mg 27 daily. Medical SR tablet Indication [facility]: 1tab Qam 2tabs Qpm metoprolol 2021-04 Yes 100mg Take 100 Un ean succinate 1-15 mg by ity of XL 100 mg 11:23: mouth. 24 hr Medical tablet Branch SERTraline 2021-04 Yes 50mg Take 50 mg U nivers 50 mg 1-15 by mouth. ity of tablet 11:23: Medical Branch buPROPion 2021-04 Yes 150mg Take 150 Uni vers SR 1-15 mg by ity of (WELLBUTRIN 11:23: mouth [place] SR) 150 mg 27 daily. Medical SR tablet Indication [facility]: 1tab Qam 2tabs Qpm metoprolol 2021-04 Yes 100mg Take 100 Un ean succinate 1-15 mg by ity of XL 100 mg 11:23: mouth. hr Medical tablet Branch SERTraline 2021-04 Yes 50mg Take 50 mg U nivers 50 mg 1-15 by mouth. ity of tablet 11:23: Medical Branch buPROPion 2021-04 Yes 150mg Take 150 Uni vers SR 1-15 mg by ity of (WELLBUTRIN 11:23: mouth [place] SR) 150 mg 27 daily. Medical SR tablet Indication [facility]: 1tab Qam 2tabs Qpm metoprolol 2021-04 Yes 100mg Take 100 Un ean succinate 1-15 mg by ity of XL 100 mg 11:23: mouth. hr Medical tablet Branch SERTraline 2021-04 Yes 50mg Take 50 mg U nivers 50 mg 1-15 by mouth. ity of tablet 11:23: Medical Branch buPROPion 2021-04 Yes 150mg Take 150 Uni vers SR 1-15 mg by ity of (WELLBUTRIN 11:23: mouth [place] SR) 150 mg 27 daily. Medical SR tablet Indication [facility]: 1tab Qam 2tabs Qpm metoprolol 2021-04 Yes 100mg Take 100 Un ean succinate 1-15 mg by ity of XL 100 mg 11:23: mouth. 24 hr Medical tablet Branch SERTraline 2021-04 Yes 50mg Take 50 mg U nivers 50 mg 1-15 by mouth. ity of tablet 11:23: Medical Branch buPROPion 2021-04 Yes 150mg Take 150 Uni vers SR 1-15 mg by ity of (WELLBUTRIN 11:23: mouth [place] SR) 150 mg 27 daily. Medical SR tablet Indication [facility]: 1tab Qam 2tabs Qpm metoprolol 2021-04 Yes 100mg Take 100 Un ean succinate 1-15 mg by ity of XL 100 mg 11:23: mouth. 24 hr Medical tablet Branch SERTraline 2021-04 Yes 50mg Take 50 mg U nivers 50 mg 1-15 by mouth. ity of tablet 11:23: Medical Branch buPROPion 2021-04 Yes 150mg Take 150 Uni vers SR 1-15 mg by ity of (WELLBUTRIN 11:23: mouth [place] SR) 150 mg 27 daily. Medical SR tablet Indication [facility]: 1tab Qam 2tabs Qpm metoprolol 2021-04 Yes 100mg Take 100 Un ean succinate 1-15 mg by ity of XL 100 mg 11:23: mouth. 24 hr Medical tablet Branch SERTraline 2021-04 Yes 50mg Take 50 mg U nivers 50 mg 1-15 by mouth. ity of tablet 11:23: Medical Branch buPROPion 2021-04 Yes 150mg Take 150 Uni vers SR 1-15 mg by ity of (WELLBUTRIN 11:23: mouth [place] SR) 150 mg 27 daily. Medical SR tablet Indication [facility]: 1tab Qam 2tabs Qpm metoprolol 2021-04 Yes 100mg Take 100 Un ean succinate 1-15 mg by ity of XL 100 mg 11:23: mouth. 24 hr Medical tablet Branch SERTraline 2021-04 Yes 50mg Take 50 mg U nivers 50 mg 1-15 by mouth. ity of tablet 11:23: Medical Branch buPROPion 2021-04 Yes 150mg Take 150 Uni vers SR 1-15 mg by ity of (WELLBUTRIN 11:23: mouth [place] SR) 150 mg 27 daily. Medical SR tablet Indication [facility]: 1tab Qam 2tabs Qpm metoprolol 2021-04 Yes 100mg Take 100 Un ean succinate 1-15 mg by ity of XL 100 mg 11:23: mouth. 24 hr Medical tablet Branch SERTraline 2021-04 Yes 50mg Take 50 mg U nivers 50 mg 1-15 by mouth. ity of tablet 11:23: Medical Branch buPROPion 2021-04 Yes 150mg Take 150 Uni vers SR 1-15 mg by ity of (WELLBUTRIN 11:23: mouth [place] SR) 150 mg 27 daily. Medical SR tablet Indication [facility]: 1tab Qam 2tabs Qpm metoprolol 2021-04 Yes 100mg Take 100 Un ean succinate 1-15 mg by ity of XL 100 mg 11:23: mouth. 24 hr Medical tablet Branch SERTraline 2021-04 Yes 50mg Take 50 mg U nivers 50 mg 1-15 by mouth. ity of tablet 11:23: Medical Branch buPROPion 2021-04 Yes 150mg Take 150 Uni vers SR 1-15 mg by ity of (WELLBUTRIN 11:23: mouth [place] SR) 150 mg 27 daily. Medical SR tablet Indication [facility]: 1tab Qam 2tabs Qpm metoprolol 2021-04 Yes 100mg Take 100 Un ean succinate 1-15 mg by ity of XL 100 mg 11:23: mouth. 24 hr Medical tablet Branch SERTraline 2021-04 Yes 50mg Take 50 mg U nivers 50 mg 1-15 by mouth. ity of tablet 11:23: Medical Branch buPROPion 2021-04 Yes 150mg Take 150 Uni vers SR 1-15 mg by ity of (WELLBUTRIN 11:23: mouth [place] SR) 150 mg 27 daily. Medical SR tablet Indication [facility]: 1tab Qam 2tabs Qpm metoprolol 2021-04 Yes 100mg Take 100 Un ean succinate 1-15 mg by ity of XL 100 mg 11:23: mouth. 24 hr Medical tablet Branch SERTraline 2021-04 Yes 50mg Take 50 mg U nivers 50 mg 1-15 by mouth. ity of tablet 11:23: Medical Branch buPROPion 2021-04 Yes 150mg Take 150 Uni vers SR 1-15 mg by ity of (WELLBUTRIN 11:23: mouth [place] SR) 150 mg 27 daily. Medical SR tablet Indication [facility]: 1tab Qam 2tabs Qpm metoprolol 2021-04 Yes 100mg Take 100 Un ean succinate 1-15 mg by ity of XL 100 mg 11:23: mouth. 24 hr Medical tablet Branch SERTraline 2021-04 Yes 50mg Take 50 mg U nivers 50 mg 1-15 by mouth. ity of tablet 11:23: Medical Branch buPROPion 2021-04 Yes 150mg Take 150 Uni vers SR 1-15 mg by ity of (WELLBUTRIN 11:23: mouth [place] SR) 150 mg 27 daily. Medical SR tablet Indication [facility]: 1tab Qam 2tabs Qpm metoprolol 2021-04 Yes 100mg Take 100 Un ean succinate 1-15 mg by ity of XL 100 mg 11:23: mouth. 24 hr Medical tablet Branch SERTraline 2021-04 Yes 50mg Take 50 mg U nivers 50 mg 1-15 by mouth. ity of tablet 11:23: Medical Branch buPROPion 2021-04 Yes 150mg Take 150 Uni vers SR 1-15 mg by ity of (WELLBUTRIN 11:23: mouth [place] SR) 150 mg 27 daily. Medical SR tablet Indication [facility]: 1tab Qam 2tabs Qpm metoprolol 2021-04 Yes 100mg Take 100 Un ean succinate 1-15 mg by ity of XL 100 mg 11:23: mouth. 24 hr Medical tablet Branch SERTraline 2021-04 Yes 50mg Take 50 mg U nivers 50 mg 1-15 by mouth. ity of tablet 11:23: [facility] buPROPion 2021-04 Yes 150mg Take 150 Uni vers SR 1-15 mg by ity of (WELLBUTRIN 11:23: mouth [place] SR) 150 mg 27 daily. Medical SR tablet Indication [facility]: 1tab Qam 2tabs Qpm metoprolol 2021-04 Yes 100mg Take 100 Un ean succinate 1-15 mg by [facility]y of XL 100 mg 11:23: mouth. 24 hr Medical tablet Branch SERTraline 2021-04 Yes 50mg Take 50 mg U nivers 50 mg 1-15 by mouth. ity of tablet 11:23: [facility] buPROPion 2021-04 Yes 150mg Take 150 Uni vers SR 1-15 mg by ity of (WELLBUTRIN 11:23: mouth [place] SR) 150 mg 27 daily. Medical SR tablet Indication [facility] s: 1tab Qam 2tabs Qpm metoprolol 2021-04 Yes 100mg Take 100 Un ean succinate 1-15 mg by [facility] of XL 100 mg 11:23: mouth. Medical tablet Branch SERTraline 2021-04 Yes 50mg Take 50 mg U nivers 50 mg 1-15 by mouth. ity of tablet 11:23: [facility] buPROPion 2021-04 Yes 150mg Take 150 Uni vers SR 1-15 mg by ity of (WELLBUTRIN 11:23: mouth [place] SR) 150 mg 27 daily. Medical SR tablet Indication [facility] s: 1tab Qam 2tabs Qpm metoprolol 2021-04 Yes 100mg Take 100 Un ean succinate 1-15 mg by [facility] of XL 100 mg 11:23: mouth. 24 hr Medical tablet Branch SERTraline 2021-04 Yes 50mg Take 50 mg U nivers 50 mg 1-15 by mouth. ity of tablet 11:23: [facility] buPROPion 2021-04 Yes 150mg Take 150 Uni vers SR 1-15 mg by ity of (WELLBUTRIN 11:23: mouth [place] SR) 150 mg 27 daily. Medical SR tablet Indication [facility] s: 1tab Qam 2tabs Qpm metoprolol 2021-04 Yes 100mg Take 100 Un ean succinate 1-15 mg by [facility] of XL 100 mg 11:23: mouth. 24 hr Medical tablet Branch SERTraline 2021-04 Yes 50mg Take 50 mg U nivers 50 mg 1-15 by mouth. ity of tablet 11:23: [facility] buPROPion 2021-04 Yes 150mg Take 150 Uni vers SR 1-15 mg by ity of (WELLBUTRIN 11:23: mouth [place] SR) 150 mg 27 daily. Medical SR tablet Indication [facility] s: 1tab Qam 2tabs Qpm metoprolol 2021-04 Yes 100mg Take 100 Un ean succinate 1-15 mg by [facility] of XL 100 mg 11:23: mouth. 24 hr Medical tablet Branch SERTraline 2021-04 Yes 50mg Take 50 mg U nivers 50 mg 1-15 by mouth. ity of tablet 11:23: [facility] buPROPion 2021-04 Yes 150mg Take 150 Uni vers SR 1-15 mg by [facility]y of (WELLBUTRIN 11:23: mouth [place] SR) 150 mg 27 daily. Medical SR tablet Indication [facility]: 1tab Qam 2tabs Qpm metoprolol 2021-04 Yes 100mg Take 100 Un ean succinate 1-15 mg by [facility] of XL 100 mg 11:23: mouth. 24 hr Medical tablet Branch SERTraline 2021-04 Yes 50mg Take 50 mg U nivers 50 mg 1-15 by mouth. ity of tablet 11:23: [facility] buPROPion 2021-04 Yes 150mg Take 150 Uni vers SR 1-15 mg by [facility] of (WELLBUTRIN 11:23: mouth [place] SR) 150 mg 27 daily. Medical SR tablet Indication [facility]: 1tab Qam 2tabs Qpm metoprolol 2021-04 Yes 100mg Take 100 Un ean succinate 1-15 mg by [facility] of XL 100 mg 11:23: mouth. 24 hr Medical tablet Branch SERTraline 2021-04 Yes 50mg Take 50 mg U nivers 50 mg 1-15 by mouth. ity of tablet 11:23: [facility] buPROPion 2021-04 Yes 150mg Take 150 Uni vers SR 1-15 mg by ity of (WELLBUTRIN 11:23: mouth [place] SR) 150 mg 27 daily. Medical SR tablet Indication [facility] s: 1tab Qam 2tabs Qpm metoprolol 2021-04 Yes 100mg Take 100 Un ean succinate 1-15 mg by [facility]y of XL 100 mg 11:23: mouth. 24 hr Medical tablet Branch SERTraline 2021-04 Yes 50mg Take 50 mg U nivers 50 mg 1-15 by mouth. ity of tablet 11:23: [place] 27 [facility] buPROPion 2021-04 Yes 150mg Take 150 Uni vers SR 1-15 mg by ity of (WELLBUTRIN 11:23: mouth [place] SR) 150 mg 27 daily. Medical SR tablet Indication [facility]: 1tab Qam 2tabs Qpm metoprolol 2021-04 Yes 100mg Take 100 Un ean succinate 1-15 mg by [facility]y of XL 100 mg 11:23: mouth. 24 hr Medical tablet Branch SERTraline 2021-04 Yes 50mg Take 50 mg U nivers 50 mg 1-15 by mouth. ity of tablet 11:23: [facility] buPROPion 2021-04 Yes 150mg Take 150 Uni vers SR 1-15 mg by [facility]y of (WELLBUTRIN 11:23: mouth [place] SR) 150 mg 27 daily. Medical SR tablet Indication [facility]: 1tab Qam 2tabs Qpm metoprolol 2021-04 Yes 100mg Take 100 Un ean succinate 1-15 mg by [facility]y of XL 100 mg 11:23: mouth. 24 hr Medical tablet Branch SERTraline 2021-04 Yes 50mg Take 50 mg U nivers 50 mg 1-15 by mouth. ity of tablet 11:23: [facility] buPROPion 2021-04 Yes 150mg Take 150 Uni vers SR 1-15 mg by [facility] of (WELLBUTRIN 11:23: mouth [place] SR) 150 mg 27 daily. Medical SR tablet Indication [facility]: 1tab Qam 2tabs Qpm metoprolol 2021-04 Yes 100mg Take 100 Un ean succinate 1-15 mg by [facility] of XL 100 mg 11:23: mouth. 24 hr Medical tablet Branch SERTraline 2021-04 Yes 50mg Take 50 mg U nivers 50 mg 1-15 by mouth. ity of tablet 11:23: [facility] buPROPion 2021-04 Yes 150mg Take 150 Uni vers SR 1-15 mg by [facility] of (WELLBUTRIN 11:23: mouth [place] SR) 150 mg 27 daily. Medical SR tablet Indication [facility]: 1tab Qam 2tabs Qpm metoprolol 2021-04 Yes 100mg Take 100 Un ean succinate 1-15 mg by [facility] of XL 100 mg 11:23: mouth. 24 hr 27 Medical tablet Branch SERTraline 2021-04 Yes 50mg Take 50 mg U nivers 50 mg 1-15 by mouth. ity of tablet 11:23: [facility] buPROPion 2021-04 Yes 150mg Take 150 Uni vers SR 1-15 mg by [facility] of (WELLBUTRIN 11:23: mouth [place] SR) 150 mg 27 daily. Medical SR tablet Indication [facility]: 1tab Qam 2tabs Qpm metoprolol 2021-04 Yes 100mg Take 100 Un ean succinate 1-15 mg by [facility] of XL 100 mg 11:23: mouth. Medical tablet Branch SERTraline 2021-04 Yes 50mg Take 50 mg U nivers 50 mg 1-15 by mouth. ity of tablet 11:23: [facility] buPROPion 2021-04 Yes 150mg Take 150 Uni vers SR 1-15 mg by [facility]y of (WELLBUTRIN 11:23: mouth [place] SR) 150 mg 27 daily. Medical SR tablet Indication [facility]: 1tab Qam 2tabs Qpm metoprolol 2021-04 Yes 100mg Take 100 Un ean succinate 1-15 mg by [facility]y of XL 100 mg 11:23: mouth. Medical tablet Branch SERTraline 2021-04 Yes 50mg Take 50 mg U nivers 50 mg 1-15 by mouth. ity of tablet 11:23: [facility] buPROPion 2021-04 Yes 150mg Take 150 Uni vers SR 1-15 mg by [facility] of (WELLBUTRIN 11:23: mouth [place] SR) 150 mg 27 daily. Medical SR tablet Indication [facility]: 1tab Qam 2tabs Qpm metoprolol 2021-04 Yes 100mg Take 100 Un ean succinate 1-15 mg by [facility]y of XL 100 mg 11:23: mouth. Medical tablet Branch SERTraline 2021-04 Yes 50mg Take 50 mg U nivers 50 mg 1-15 by mouth. ity of tablet 11:23: [facility] buPROPion 2021-04 Yes 150mg Take 150 Uni vers SR 1-15 mg by [facility]y of (WELLBUTRIN 11:23: mouth [place] SR) 150 mg 27 daily. Medical SR tablet Indication [facility]: 1tab Qam 2tabs Qpm metoprolol 2021-04 Yes 100mg Take 100 Un ean succinate 1-15 mg by [facility] of XL 100 mg 11:23: mouth. 24 hr Medical tablet Branch SERTraline 2021-04 Yes 50mg Take 50 mg U nivers 50 mg 1-15 by mouth. ity of tablet 11:23: [facility] buPROPion 2021-04 Yes 150mg Take 150 Uni vers SR 1-15 mg by [facility]y of (WELLBUTRIN 11:23: mouth [place] SR) 150 mg 27 daily. Medical SR tablet Indication [facility]: 1tab Qam 2tabs Qpm metoprolol 2021-04 Yes 100mg Take 100 Un ean succinate 1-15 mg by [facility] of XL 100 mg 11:23: mouth. 24 hr Medical tablet Branch SERTraline 2021-04 Yes 50mg Take 50 mg U nivers 50 mg 1-15 by mouth. ity of tablet 11:23: [facility] buPROPion 2021-04 Yes 150mg Take 150 Uni vers SR 1-15 mg by [facility]y of (WELLBUTRIN 11:23: mouth [place] SR) 150 mg 27 daily. Medical SR tablet Indication [facility]: 1tab Qam 2tabs Qpm metoprolol 2021-04 Yes 100mg Take 100 Un ean succinate 1-15 mg by [facility] of XL 100 mg 11:23: mouth. 24 hr Medical tablet Branch SERTraline 2021-04 Yes 50mg Take 50 mg U nivers 50 mg 1-15 by mouth. ity of tablet 11:23: [facility] buPROPion 2021-04 Yes 150mg Take 150 Uni vers SR 1-15 mg by [facility] of (WELLBUTRIN 11:23: mouth [place] SR) 150 mg 27 daily. Medical SR tablet Indication [facility]: 1tab Qam 2tabs Qpm metoprolol 2021-04 Yes 100mg Take 100 Un ean succinate 1-15 mg by [facility] of XL 100 mg 11:23: mouth. 24 hr Medical tablet Branch SERTraline 2021-04 Yes 50mg Take 50 mg U nivers 50 mg 1-15 by mouth. ity of tablet 11:23: [facility] buPROPion 2021-04 Yes 150mg Take 150 Uni vers SR 1-15 mg by [facility]y of (WELLBUTRIN 11:23: mouth [place] SR) 150 mg 27 daily. Medical SR tablet Indication [facility]: 1tab Qam 2tabs Qpm metoprolol 2021-04 Yes 100mg Take 100 Un ean succinate 1-15 mg by [facility]y of XL 100 mg 11:23: mouth. 24 hr Medical tablet Branch SERTraline 2021-04 Yes 50mg Take 50 mg U nivers 50 mg 1-15 by mouth. ity of tablet 11:23: [facility] buPROPion 2021-04 Yes 150mg Take 150 Uni vers SR 1-15 mg by ity of (WELLBUTRIN 11:23: mouth [place] SR) 150 mg 27 daily. Medical SR tablet Indication [facility]: 1tab Qam 2tabs Qpm metoprolol 2021-04 Yes 100mg Take 100 Un ean succinate 1-15 mg by [facility]y of XL 100 mg 11:23: mouth. 24 hr Medical tablet Branch SERTraline 2021-04 Yes 50mg Take 50 mg U nivers 50 mg 1-15 by mouth. ity of tablet 11:23: [facility] buPROPion 2021-04 Yes 150mg Take 150 Uni vers SR 1-15 mg by ity of (WELLBUTRIN 11:23: mouth [place] SR) 150 mg 27 daily. Medical SR tablet Indication [facility]: 1tab Qam 2tabs Qpm metoprolol 2021-04 Yes 100mg Take 100 Un ean succinate 1-15 mg by [facility]y of XL 100 mg 11:23: mouth. 24 hr Medical tablet Branch SERTraline 2021-04 Yes 50mg Take 50 mg U nivers 50 mg 1-15 by mouth. ity of tablet 11:23: [facility] buPROPion 2021-04 Yes 150mg Take 150 Uni vers SR 1-15 mg by ity of (WELLBUTRIN 11:23: mouth [place] SR) 150 mg 27 daily. Medical SR tablet Indication [facility]: 1tab Qam 2tabs Qpm metoprolol 2021-04 Yes 100mg Take 100 Un ean succinate 1-15 mg by [facility]y of XL 100 mg 11:23: mouth. 24 hr Medical tablet Branch SERTraline 2021-04 Yes 50mg Take 50 mg U nivers 50 mg 1-15 by mouth. ity of tablet 11:23: [facility] buPROPion 2021-04 Yes 150mg Take 150 Uni vers SR 1-15 mg by ity of (WELLBUTRIN 11:23: mouth [place] SR) 150 mg 27 daily. Medical SR tablet Indication [facility]: 1tab Qam 2tabs Qpm metoprolol 2021-04 Yes 100mg Take 100 Un ean succinate 1-15 mg by [facility]y of XL 100 mg 11:23: mouth. 24 hr Medical tablet Branch SERTraline 2021-04 Yes 50mg Take 50 mg U nivers 50 mg 1-15 by mouth. ity of tablet 11:23: [facility] buPROPion 2021-04 Yes 150mg Take 150 Uni vers SR 1-15 mg by ity of (WELLBUTRIN 11:23: mouth [place] SR) 150 mg 27 daily. Medical SR tablet Indication [facility]: 1tab Qam 2tabs Qpm metoprolol 2021-04 Yes 100mg Take 100 Un ean succinate 1-15 mg by [facility]y of XL 100 mg 11:23: mouth. 24 hr Medical tablet Branch SERTraline 2021-04 Yes 50mg Take 50 mg U nivers 50 mg 1-15 by mouth. ity of tablet 11:23: [facility] buPROPion 2021-04 Yes 150mg Take 150 Uni vers SR 1-15 mg by ity of (WELLBUTRIN 11:23: mouth [place] SR) 150 mg 27 daily. Medical SR tablet Indication [facility]: 1tab Qam 2tabs Qpm metoprolol 2021-04 Yes 100mg Take 100 Un ean succinate 1-15 mg by ity of XL 100 mg 11:23: mouth. 24 hr Medical tablet Branch SERTraline 2021-04 Yes 50mg Take 50 mg U nivers 50 mg 1-15 by mouth. ity of tablet 11:23: [facility] buPROPion 2021-04 Yes 150mg Take 150 Uni vers SR 1-15 mg by ity of (WELLBUTRIN 11:23: mouth [place] SR) 150 mg 27 daily. Medical SR tablet Indication [facility]: 1tab Qam 2tabs Qpm metoprolol 2021-04 Yes 100mg Take 100 Un ean succinate 1-15 mg by ity of XL 100 mg 11:23: mouth. 24 hr Medical tablet Branch SERTraline 2021-04 Yes 50mg Take 50 mg U nivers 50 mg 1-15 by mouth. ity of tablet 11:23: [facility] buPROPion 2021-04 Yes 150mg Take 150 Uni vers SR 1-15 mg by ity of (WELLBUTRIN 11:23: mouth [place] SR) 150 mg 27 daily. Medical SR tablet Indication [facility]: 1tab Qam 2tabs Qpm metoprolol 2021-04 Yes 100mg Take 100 Un ean succinate 1-15 mg by ity of XL 100 mg 11:23: mouth. hr Medical tablet Branch SERTraline 2021-04 Yes 50mg Take 50 mg U nivers 50 mg 1-15 by mouth. ity of tablet 11:23: [facility] buPROPion 2021-04 Yes 150mg Take 150 Uni vers SR 1-15 mg by ity of (WELLBUTRIN 11:23: mouth [place] SR) 150 mg 27 daily. Medical SR tablet Indication [facility]: 1tab Qam 2tabs Qpm metoprolol 2021-04 Yes 100mg Take 100 Un ean succinate 1-15 mg by ity of XL 100 mg 11:23: mouth. hr Medical tablet Branch SERTraline 2021-04 Yes 50mg Take 50 mg U nivers 50 mg 1-15 by mouth. ity of tablet 11:23: [facility] buPROPion 2021-04 Yes 150mg Take 150 Uni vers SR 1-15 mg by ity of (WELLBUTRIN 11:23: mouth [place] SR) 150 mg 27 daily. Medical SR tablet Indication [facility]: 1tab Qam 2tabs Qpm metoprolol 2021-04 Yes 100mg Take 100 Un ean succinate 1-15 mg by ity of XL 100 mg 11:23: mouth. hr Medical tablet Branch SERTraline 2021-04 Yes 50mg Take 50 mg U nivers 50 mg 1-15 by mouth. ity of tablet 11:23: [facility] buPROPion 2021-04 Yes 150mg Take 150 Uni vers SR 1-15 mg by ity of (WELLBUTRIN 11:23: mouth [place] SR) 150 mg 27 daily. Medical SR tablet Indication [facility]: 1tab Qam 2tabs Qpm metoprolol 2021-04 Yes 100mg Take 100 Un ean succinate 1-15 mg by ity of XL 100 mg 11:23: mouth. 24 hr Medical tablet Branch SERTraline 2021-04 Yes 50mg Take 50 mg U nivers 50 mg 1-15 by mouth. ity of tablet 11:23: [facility] buPROPion 2021-04 Yes 150mg Take 150 Uni vers SR 1-15 mg by ity of (WELLBUTRIN 11:23: mouth [place] SR) 150 mg 27 daily. Medical SR tablet Indication [facility]: 1tab Qam 2tabs Qpm metoprolol 2021-04 Yes 100mg Take 100 Un ean succinate 1-15 mg by ity of XL 100 mg 11:23: mouth. 24 hr Medical tablet Branch SERTraline 2021-04 Yes 50mg Take 50 mg U nivers 50 mg 1-15 by mouth. ity of tablet 11:23: [facility] buPROPion 2021-04 Yes 150mg Take 150 Uni vers SR 1-15 mg by ity of (WELLBUTRIN 11:23: mouth [place] SR) 150 mg 27 daily. Medical SR tablet Indication [facility]: 1tab Qam 2tabs Qpm metoprolol 2021-04 Yes 100mg Take 100 Un ean succinate 1-15 mg by ity of XL 100 mg 11:23: mouth. 24 hr Medical tablet Branch SERTraline 2021-04 Yes 50mg Take 50 mg U nivers 50 mg 1-15 by mouth. ity of tablet 11:23: [facility] buPROPion 2021-04 Yes 150mg Take 150 Uni vers SR 1-15 mg by ity of (WELLBUTRIN 11:23: mouth [place] SR) 150 mg 27 daily. Medical SR tablet Indication [facility]: 1tab Qam 2tabs Qpm metoprolol 2021-04 Yes 100mg Take 100 Un ean succinate 1-15 mg by ity of XL 100 mg 11:23: mouth. 24 hr Medical tablet Branch SERTraline 2021-04 Yes 50mg Take 50 mg U nivers 50 mg 1-15 by mouth. ity of tablet 11:23: [facility] buPROPion 2021-04 Yes 150mg Take 150 Uni vers SR 1-15 mg by ity of (WELLBUTRIN 11:23: mouth [place] SR) 150 mg 27 daily. Medical SR tablet Indication [facility]: 1tab Qam 2tabs Qpm metoprolol 2021-04 Yes 100mg Take 100 Un ean succinate 1-15 mg by ity of XL 100 mg 11:23: mouth. 24 hr Medical tablet Branch SERTraline 2021-04 Yes 50mg Take 50 mg U nivers 50 mg 1-15 by mouth. ity of tablet 11:23: [facility] buPROPion 2021-04 Yes 150mg Take 150 Uni vers SR 1-15 mg by ity of (WELLBUTRIN 11:23: mouth [place] SR) 150 mg 27 daily. Medical SR tablet Indication [facility]: 1tab Qam 2tabs Qpm metoprolol 2021-04 Yes 100mg Take 100 Un ean succinate 1-15 mg by ity of XL 100 mg 11:23: mouth. 24 hr Medical tablet Branch SERTraline 2021-04 Yes 50mg Take 50 mg U nivers 50 mg 1-15 by mouth. ity of tablet 11:23: [facility] buPROPion 2021-04 Yes 150mg Take 150 Uni vers SR 1-15 mg by ity of (WELLBUTRIN 11:23: mouth [place] SR) 150 mg 27 daily. Medical SR tablet Indication [facility]: 1tab Qam 2tabs Qpm metoprolol 2021-04 Yes 100mg Take 100 Un ean succinate 1-15 mg by ity of XL 100 mg 11:23: mouth. 24 hr Medical tablet Branch SERTraline 2021-04 Yes 50mg Take 50 mg U nivers 50 mg 1-15 by mouth. ity of tablet 11:23: [facility] buPROPion 2021-04 Yes 150mg Take 150 Uni vers SR 1-15 mg by ity of (WELLBUTRIN 11:23: mouth [place] SR) 150 mg 27 daily. Medical SR tablet Indication [facility]: 1tab Qam 2tabs Qpm metoprolol 2021-04 Yes 100mg Take 100 Un ean succinate 1-15 mg by ity of XL 100 mg 11:23: mouth. 24 hr Medical tablet Branch SERTraline 2021-04 Yes 50mg Take 50 mg U nivers 50 mg 1-15 by mouth. ity of tablet 11:23: [facility] buPROPion 2021-04 Yes 150mg Take 150 Uni vers SR 1-15 mg by ity of (WELLBUTRIN 11:23: mouth [place] SR) 150 mg 27 daily. Medical SR tablet Indication [facility]: 1tab Qam 2tabs Qpm metoprolol 2021-04 Yes 100mg Take 100 Un ean succinate 1-15 mg by ity of XL 100 mg 11:23: mouth. [place] 24 hr 27 Medical tablet Branch SERTraline 2021-04 Yes 50mg Take 50 mg U nivers 50 mg 1-15 by mouth. ity of tablet 11:23: [facility] buPROPion 2021-04 Yes 150mg Take 150 Uni vers SR 1-15 mg by ity of (WELLBUTRIN 11:23: mouth [place] SR) 150 mg 27 daily. Medical SR tablet Indication [facility]: 1tab Qam 2tabs Qpm metoprolol 2021-04 Yes 100mg Take 100 Un ean succinate 1-15 mg by ity of XL 100 mg 11:23: mouth. 24 hr 27 Medical tablet Branch SERTraline 2021-04 Yes 50mg Take 50 mg U nivers 50 mg 1-15 by mouth. ity of tablet 11:23: [facility] buPROPion 2021-04 Yes 150mg Take 150 Uni vers SR 1-15 mg by ity of (WELLBUTRIN 11:23: mouth [place] SR) 150 mg 27 daily. Medical SR tablet Indication [facility]: 1tab Qam 2tabs Qpm metoprolol 2021-04 Yes 100mg Take 100 Un ean succinate 1-15 mg by ity of XL 100 mg 11:23: mouth. 24 hr 27 Medical tablet Branch SERTraline 2021-04 Yes 50mg Take 50 mg U nivers 50 mg 1-15 by mouth. ity of tablet 11:23: [facility] buPROPion 2021-04 Yes 150mg Take 150 Uni vers SR 1-15 mg by ity of (WELLBUTRIN 11:23: mouth [place] SR) 150 mg 27 daily. Medical SR tablet Indication [facility]: 1tab Qam 2tabs Qpm metoprolol 2021-04 Yes 100mg Take 100 Un ean succinate 1-15 mg by ity of XL 100 mg 11:23: mouth. 24 hr Medical tablet Branch SERTraline 2021-04 Yes 50mg Take 50 mg U nivers 50 mg 1-15 by mouth. ity of tablet 11:23: [facility] buPROPion 2021-04 Yes 150mg Take 150 Uni vers SR 1-15 mg by ity of (WELLBUTRIN 11:23: mouth [place] SR) 150 mg 27 daily. Medical SR tablet Indication [facility]: 1tab Qam 2tabs Qpm metoprolol 2021-04 Yes 100mg Take 100 Un ean succinate 1-15 mg by ity of XL 100 mg 11:23: mouth. Medical tablet Branch SERTraline 2021-04 Yes 50mg Take 50 mg U nivers 50 mg 1-15 by mouth. ity of tablet 11:23: [facility] buPROPion 2021-04 Yes 150mg Take 150 Uni vers SR 1-15 mg by ity of (WELLBUTRIN 11:23: mouth [place] SR) 150 mg 27 daily. Medical SR tablet Indication [facility]: 1tab Qam 2tabs Qpm metoprolol 2021-04 Yes 100mg Take 100 Un ean succinate 1-15 mg by ity of XL 100 mg 11:23: mouth. Medical tablet Branch SERTraline 2021-04 Yes 50mg Take 50 mg U nivers 50 mg 1-15 by mouth. ity of tablet 11:23: [facility] buPROPion 2021-04 Yes 150mg Take 150 Uni vers SR 1-15 mg by ity of (WELLBUTRIN 11:23: mouth [place] SR) 150 mg 27 daily. Medical SR tablet Indication [facility]: 1tab Qam 2tabs Qpm metoprolol 2021-04 Yes 100mg Take 100 Un ean succinate 1-15 mg by ity of XL 100 mg 11:23: mouth. 24 hr Medical tablet Branch SERTraline 2021-04 Yes 50mg Take 50 mg U nivers 50 mg 1-15 by mouth. ity of tablet 11:23: [facility] buPROPion 2021-04 Yes 150mg Take 150 Uni vers SR 1-15 mg by ity of (WELLBUTRIN 11:23: mouth [place] SR) 150 mg 27 daily. Medical SR tablet Indication [facility]: 1tab Qam 2tabs Qpm metoprolol 2021-04 Yes 100mg Take 100 Un ean succinate 1-15 mg by ity of XL 100 mg 11:23: mouth. 24 hr Medical tablet Branch SERTraline 2021-04 Yes 50mg Take 50 mg U nivers 50 mg 1-15 by mouth. ity of tablet 11:23: Medical Branch buPROPion 2021-04 Yes 150mg Take 150 Uni vers SR 1-15 mg by ity of (WELLBUTRIN 11:23: mouth [place] SR) 150 mg 27 daily. Medical SR tablet Indication [facility]: 1tab Qam 2tabs Qpm metoprolol 2021-04 Yes 100mg Take 100 Un ean succinate 1-15 mg by ity of XL 100 mg 11:23: mouth. 24 hr Medical tablet Branch SERTraline 2021-04 Yes 50mg Take 50 mg U nivers 50 mg 1-15 by mouth. ity of tablet 11:23: Medical Branch buPROPion 2021-04 Yes 150mg Take 150 Uni vers SR 1-15 mg by ity of (WELLBUTRIN 11:23: mouth [place] SR) 150 mg 27 daily. Medical SR tablet Indication [facility]: 1tab Qam 2tabs Qpm metoprolol 2021-04 Yes 100mg Take 100 Un ean succinate 1-15 mg by ity of XL 100 mg 11:23: mouth. 24 hr Medical tablet Branch SERTraline 2021-04 Yes 50mg Take 50 mg U nivers 50 mg 1-15 by mouth. ity of tablet 11:23: [facility] Branch buPROPion 2021-04 Yes 150mg Take 150 Uni vers SR 1-15 mg by ity of (WELLBUTRIN 11:23: mouth [place] SR) 150 mg 27 daily. Medical SR tablet Indication [facility]: 1tab Qam 2tabs Qpm metoprolol 2021-04 Yes 100mg Take 100 Un ean succinate 1-15 mg by ity of XL 100 mg 11:23: mouth. 24 hr Medical tablet Branch SERTraline 2021-04 Yes 50mg Take 50 mg U nivers 50 mg 1-15 by mouth. ity of tablet 11:23: Medical [facility] buPROPion 2021-04 Yes 150mg Take 150 Uni vers SR 1-15 mg by ity of (WELLBUTRIN 11:23: mouth [place] SR) 150 mg 27 daily. Medical SR tablet Indication [facility]: 1tab Qam 2tabs Qpm metoprolol 2021-04 Yes 100mg Take 100 Un ean succinate 1-15 mg by ity of XL 100 mg 11:23: mouth. 24 hr Medical tablet Branch SERTraline 2021-04 Yes 50mg Take 50 mg U nivers 50 mg 1-15 by mouth. ity of tablet 11:23: Medical Branch buPROPion 2021-04 Yes 150mg Take 150 Uni vers SR 1-15 mg by ity of (WELLBUTRIN 11:23: mouth [place] SR) 150 mg 27 daily. Medical SR tablet Indication [facility]: 1tab Qam 2tabs Qpm metoprolol 2021-04 Yes 100mg Take 100 Un ean succinate 1-15 mg by ity of XL 100 mg 11:23: mouth. 24 hr Medical tablet Branch SERTraline 2021-04 Yes 50mg Take 50 mg U nivers 50 mg 1-15 by mouth. ity of tablet 11:23: Medical Branch buPROPion 2021-04 Yes 150mg Take 150 Uni vers SR 1-15 mg by ity of (WELLBUTRIN 11:23: mouth [place] SR) 150 mg 27 daily. Medical SR tablet Indication [facility]: 1tab Qam 2tabs Qpm metoprolol 2021-04 Yes 100mg Take 100 Un ean succinate 1-15 mg by ity of XL 100 mg 11:23: mouth. 24 hr Medical tablet Branch SERTraline 2021-04 Yes 50mg Take 50 mg U nivers 50 mg 1-15 by mouth. ity of tablet 11:23: Medical Branch buPROPion 2021-04 Yes 150mg Take 150 Uni vers SR 1-15 mg by ity of (WELLBUTRIN 11:23: mouth [place] SR) 150 mg 27 daily. Medical SR tablet Indication [facility]: 1tab Qam 2tabs Qpm metoprolol 2021-04 Yes 100mg Take 100 Un ean succinate 1-15 mg by ity of XL 100 mg 11:23: mouth. hr Medical tablet Branch SERTraline 2021-04 Yes 50mg Take 50 mg U nivers 50 mg 1-15 by mouth. ity of tablet 11:23: Medical Branch buPROPion 2021-04 Yes 150mg Take 150 Uni vers SR 1-15 mg by ity of (WELLBUTRIN 11:23: mouth [place] SR) 150 mg 27 daily. Medical SR tablet Indication [facility]: 1tab Qam 2tabs Qpm metoprolol 2021-04 Yes 100mg Take 100 Un ean succinate 1-15 mg by ity of XL 100 mg 11:23: mouth. 24 hr Medical tablet Branch SERTraline 2021-04 Yes 50mg Take 50 mg U nivers 50 mg 1-15 by mouth. ity of tablet 11:23: Medical Branch buPROPion 2021-04 Yes 150mg Take 150 Uni vers SR 1-15 mg by ity of (WELLBUTRIN 11:23: mouth [place] SR) 150 mg 27 daily. Medical SR tablet Indication [facility]: 1tab Qam 2tabs Qpm metoprolol 2021-04 Yes 100mg Take 100 Un ean succinate 1-15 mg by ity of XL 100 mg 11:23: mouth. 24 hr Medical tablet Branch SERTraline 2021-04 Yes 50mg Take 50 mg U nivers 50 mg 1-15 by mouth. ity of tablet 11:23: Medical Branch buPROPion 2021-04 Yes 150mg Take 150 Uni vers SR 1-15 mg by ity of (WELLBUTRIN 11:23: mouth [place] SR) 150 mg 27 daily. Medical SR tablet Indication [facility]: 1tab Qam 2tabs Qpm metoprolol 2021-04 Yes 100mg Take 100 Un ean succinate 1-15 mg by ity of XL 100 mg 11:23: mouth. 24 hr Medical tablet Branch SERTraline 2021-04 Yes 50mg Take 50 mg U nivers 50 mg 1-15 by mouth. ity of tablet 11:23: Medical Branch buPROPion 2021-04 Yes 150mg Take 150 Uni vers SR 1-15 mg by ity of (WELLBUTRIN 11:23: mouth [place] SR) 150 mg 27 daily. Medical SR tablet Indication [facility]: 1tab Qam 2tabs Qpm metoprolol 2021-04 Yes 100mg Take 100 Un ean succinate 1-15 mg by ity of XL 100 mg 11:23: mouth. 24 hr Medical tablet Branch SERTraline 2021-04 Yes 50mg Take 50 mg U nivers 50 mg 1-15 by mouth. ity of tablet 11:23: Medical Branch buPROPion 2021-04 Yes 150mg Take 150 Uni vers SR 1-15 mg by ity of (WELLBUTRIN 11:23: mouth [place] SR) 150 mg 27 daily. Medical SR tablet Indication [facility]: 1tab Qam 2tabs Qpm metoprolol 2021-04 Yes 100mg Take 100 Un ean succinate 1-15 mg by ity of XL 100 mg 11:23: mouth. 24 hr Medical tablet Branch SERTraline 2021-04 Yes 50mg Take 50 mg U nivers 50 mg 1-15 by mouth. ity of tablet 11:23: Medical Branch buPROPion 2021-04 Yes 150mg Take 150 Uni vers SR 1-15 mg by ity of (WELLBUTRIN 11:23: mouth [place] SR) 150 mg 27 daily. Medical SR tablet Indication [facility]: 1tab Qam 2tabs Qpm metoprolol 2021-04 Yes 100mg Take 100 Un ean succinate 1-15 mg by ity of XL 100 mg 11:23: mouth. 24 hr Medical tablet Branch SERTraline 2021-04 Yes 50mg Take 50 mg U nivers 50 mg 1-15 by mouth. ity of tablet 11:23: [facility] Branch buPROPion 2021-04 Yes 150mg Take 150 Uni vers SR 1-15 mg by ity of (WELLBUTRIN 11:23: mouth [place] SR) 150 mg 27 daily. Medical SR tablet Indication Bran ch s: 1tab Qam 2tabs Qpm metoprolol 2021-04 Yes 100mg Take 100 Un ean succinate 1-15 mg by ity of XL 100 mg 11:23: mouth. 24 hr Medical tablet Branch SERTraline 2021-04 Yes 50mg Take 50 mg U nivers 50 mg 1-15 by mouth. ity of tablet 11:23: Medical Branch buPROPion 2021-04 Yes 150mg Take 150 Uni vers SR 1-15 mg by ity of (WELLBUTRIN 11:23: mouth [place] SR) 150 mg 27 daily. Medical SR tablet Indication Bran ch s: 1tab Qam 2tabs Qpm metoprolol 2021-04 Yes 100mg Take 100 Un ean succinate 1-15 mg by ity of XL 100 mg 11:23: mouth. [place] 24 hr Medical tablet Branch SERTraline 2021-04 Yes 50mg Take 50 mg U nivers 50 mg 1-15 by mouth. ity of tablet 11:23: [facility] buPROPion 2021-04 Yes 150mg Take 150 Uni vers SR 1-15 mg by ity of (WELLBUTRIN 11:23: mouth [place] SR) 150 mg 27 daily. Medical SR tablet Indication Bran ch s: 1tab Qam 2tabs Qpm metoprolol 2021-04 Yes 100mg Take 100 Un ean succinate 1-15 mg by ity of XL 100 mg 11:23: mouth. 24 hr Medical tablet Branch buPROPion 2021-04 Yes 150mg Take 150 Uni vers SR 1-15 mg by ity of (WELLBUTRIN 11:23: mouth [place] SR) 150 mg 27 daily. Medical SR tablet Indication [facility] ch s: 1tab Qam 2tabs Qpm SERTraline 2021-04 Yes 50mg Take 50 mg U nivers 50 mg 1-15 by mouth. ity of tablet 11:23: [facility] Branch meloxicam 2021-04 Yes 15mg Take 15 mg Un ean 15 mg 1-15 by mouth ity of tablet 11:23: daily. [facility] buPROPion 2021-04 Yes 150mg Take 150 Uni vers SR 1-15 mg by ity of (WELLBUTRIN 11:23: mouth [place] SR) 150 mg 27 daily. Medical SR tablet Indication [facility] ch s: 1tab Qam 2tabs Qpm metoprolol 2021-04 Yes 100mg Take 100 Un ean succinate 1-15 mg by ity of XL 100 mg 11:23: mouth. 24 hr Medical tablet Branch SERTraline 2021-04 Yes 50mg Take 50 mg U nivers 50 mg 1-15 by mouth. ity of tablet 11:23: [facility] buPROPion 2021-04 Yes 150mg Take 150 Uni vers SR 1-15 mg by ity of (WELLBUTRIN 11:23: mouth [place] SR) 150 mg 27 daily. Medical SR tablet Indication [facility] ch s: 1tab Qam 2tabs Qpm metoprolol 2021-04 Yes 100mg Take 100 Un ean succinate 1-15 mg by ity of XL 100 mg 11:23: mouth. 24 hr Medical tablet Branch SERTraline 2021-04 Yes 50mg Take 50 mg U nivers 50 mg 1-15 by mouth. ity of tablet 11:23: [facility] buPROPion 2021-04 Yes 150mg Take 150 Uni vers SR 1-15 mg by ity of (WELLBUTRIN 11:23: mouth [place] SR) 150 mg 27 daily. Medical SR tablet Indication [facility] ch s: 1tab Qam 2tabs Qpm metoprolol 2021-04 Yes 100mg Take 100 Un ean succinate 1-15 mg by ity of XL 100 mg 11:23: mouth. 24 hr Medical tablet Branch SERTraline 2021-04 Yes 50mg Take 50 mg U nivers 50 mg 1-15 by mouth. ity of tablet 11:23: Medical Branch buPROPion 2021-04 Yes 150mg Take 150 Uni vers SR 1-15 mg by ity of (WELLBUTRIN 11:23: mouth [place] SR) 150 mg 27 daily. Medical SR tablet Indication [facility] ch s: 1tab Qam 2tabs Qpm metoprolol 2021-04 Yes 100mg Take 100 Un ean succinate 1-15 mg by ity of XL 100 mg 11:23: mouth. 24 hr Medical tablet Branch SERTraline 2021-04 Yes 50mg Take 50 mg U nivers 50 mg 1-15 by mouth. ity of tablet 11:23: Medical Branch buPROPion 2021-04 Yes 150mg Take 150 Uni vers SR 1-15 mg by ity of (WELLBUTRIN 11:23: mouth [place] SR) 150 mg 27 daily. Medical SR tablet Indication [facility] ch s: 1tab Qam 2tabs Qpm metoprolol 2021-04 Yes 100mg Take 100 Un ean succinate 1-15 mg by ity of XL 100 mg 11:23: mouth. 24 hr Medical tablet Branch SERTraline 2021-04 Yes 50mg Take 50 mg U nivers 50 mg 1-15 by mouth. ity of tablet 11:23: [facility] Branch buPROPion 2021-04 Yes 150mg Take 150 Uni vers SR 1-15 mg by ity of (WELLBUTRIN 11:23: mouth [place] SR) 150 mg 27 daily. Medical SR tablet Indication [facility] ch s: 1tab Qam 2tabs Qpm metoprolol 2021-04 Yes 100mg Take 100 Un ean succinate 1-15 mg by ity of XL 100 mg 11:23: mouth. 24 hr Medical tablet Branch SERTraline 2021-04 Yes 50mg Take 50 mg U nivers 50 mg 1-15 by mouth. ity of tablet 11:23: [facility] Branch buPROPion 2021-04 Yes 150mg Take 150 Uni vers SR 1-15 mg by ity of (WELLBUTRIN 11:23: mouth [place] SR) 150 mg 27 daily. Medical SR tablet Indication Bran ch s: 1tab Qam 2tabs Qpm metoprolol 2021-04 Yes 100mg Take 100 Un ean succinate 1-15 mg by ity of XL 100 mg 11:23: mouth. [place] hr Medical tablet Branch SERTraline 2021-04 Yes 50mg Take 50 mg U nivers 50 mg 1-15 by mouth. ity of tablet 11:23: [place] [address] Medical Branch buPROPion 2021-04 Yes 150mg Take 150 Uni vers SR 1-15 mg by ity of (WELLBUTRIN 11:23: mouth [place] SR) 150 mg 27 daily. Medical SR tablet Indication Bran ch s: 1tab Qam 2tabs Qpm buPROPion 2021-04 Yes 150mg Take 150 Uni vers SR 1-15 mg by ity of (WELLBUTRIN 11:23: mouth [place] SR) 150 mg 27 daily. Medical SR tablet Indication [facility] ch s: 1tab Qam 2tabs Qpm metoprolol 2021-04 Yes 100mg Take 100 Un ean succinate 1-15 mg by ity of XL 100 mg 11:23: mouth. hr Medical tablet Branch SERTraline 2021-04 Yes 50mg Take 50 mg U nivers 50 mg 1-15 by mouth. ity of tablet 11:23: [place] [address] Medical Branch meloxicam 2021-04 Yes 15mg Take 15 mg Un ean 15 mg 1-15 by mouth ity of tablet 11:23: daily. [facility] Branch buPROPion 2021-04 Yes 150mg Take 150 Uni vers SR 1-15 mg by ity of (WELLBUTRIN 11:23: mouth [place] SR) 150 mg 27 daily. Medical SR tablet Indication [facility] ch s: 1tab Qam 2tabs Qpm metoprolol 2021-04 Yes 100mg Take 100 Un ean succinate 1-15 mg by ity of XL 100 mg 11:23: mouth. 24 hr Medical tablet Branch SERTraline 2021-04 Yes 50mg Take 50 mg U nivers 50 mg 1-15 by mouth. ity of tablet 11:23: Medical Branch buPROPion 2021-04 Yes 150mg Take 150 Uni vers SR 1-15 mg by ity of (WELLBUTRIN 11:23: mouth [place] SR) 150 mg 27 daily. Medical SR tablet Indication [facility] ch s: 1tab Qam 2tabs Qpm metoprolol 2021-04 Yes 100mg Take 100 Un ean succinate 1-15 mg by ity of XL 100 mg 11:23: mouth. 24 hr Medical tablet Branch SERTraline 2021-04 Yes 50mg Take 50 mg U nivers 50 mg 1-15 by mouth. ity of tablet 11:23: Medical Branch buPROPion 2021-04 Yes 150mg Take 150 Uni vers SR 1-15 mg by ity of (WELLBUTRIN 11:23: mouth [place] SR) 150 mg 27 daily. Medical SR tablet Indication [facility] ch s: 1tab Qam 2tabs Qpm metoprolol 2021-04 Yes 100mg Take 100 Un ean succinate 1-15 mg by ity of XL 100 mg 11:23: mouth. 24 hr Medical tablet Branch SERTraline 2021-04 Yes 50mg Take 50 mg U nivers 50 mg 1-15 by mouth. ity of tablet 11:23: Medical Branch buPROPion 2021-04 Yes 150mg Take 150 Uni vers SR 1-15 mg by ity of (WELLBUTRIN 11:23: mouth [place] SR) 150 mg 27 daily. Medical SR tablet Indication [facility] ch s: 1tab Qam 2tabs Qpm metoprolol 2021-04 Yes 100mg Take 100 Un ean succinate 1-15 mg by ity of XL 100 mg 11:23: mouth. Medical tablet Branch SERTraline 2021-04 Yes 50mg Take 50 mg U nivers 50 mg 1-15 by mouth. ity of tablet 11:23: [place] [address] Medical Branch metoprolol 2021-04 Yes 100mg Take 100 Un ean succinate 1-15 mg by ity of XL 100 mg 11:23: mouth. Medical tablet Branch buPROPion 2021-04 Yes 150mg Take 150 Uni vers SR 1-15 mg by ity of (WELLBUTRIN 11:23: mouth [place] SR) 150 mg 27 daily. Medical SR tablet Indication [facility] ch s: 1tab Qam 2tabs Qpm apixaban 5 2021-04 Yes 5mg Take 5 mg Un ean mg tablet 1-15 by mouth. ity o f 11:23: [place] [address] Medical Branch metoprolol 2021-04 Yes 100mg Take 100 Un ean succinate 1-15 mg by ity of XL 100 mg 11:23: mouth. Medical tablet Branch SERTraline 2021-04 Yes 50mg Take 50 mg U nivers 50 mg 1-15 by mouth. ity of tablet 11:23: [place] [address] Medical Branch buPROPion 2021-04 Yes 150mg Take 150 Uni vers SR 1-15 mg by ity of (WELLBUTRIN 11:23: mouth [place] SR) 150 mg 27 daily. Medical SR tablet Indication Bran ch s: 1tab Qam 2tabs Qpm SERTraline 2021-04 Yes 50mg Take 50 mg U nivers 50 mg 1-15 by mouth. ity of tablet 11:23: [place] [address] Medical Branch metoprolol 2021-04 Yes 100mg Take 100 Un ean succinate 1-15 mg by ity of XL 100 mg 11:23: mouth. Medical tablet Branch SERTraline 2021-04 Yes 50mg Take 50 mg U nivers 50 mg 1-15 by mouth. ity of tablet 11:23: [place] [address] Medical Branch buPROPion 2021-04 Yes 150mg Take 150 Uni vers SR 1-15 mg by ity of (WELLBUTRIN 11:23: mouth [place] SR) 150 mg 27 daily. Medical SR tablet Indication Bran ch s: 1tab Qam 2tabs Qpm metoprolol 2021-04 Yes 100mg Take 100 Un ean succinate 1-15 mg by ity of XL 100 mg 11:23: mouth. 24 hr Medical tablet Branch SERTraline 2021-04 Yes 50mg Take 50 mg U nivers 50 mg 1-15 by mouth. ity of tablet 11:23: Medical Branch buPROPion 2021-04 Yes 150mg Take 150 Uni vers SR 1-15 mg by ity of (WELLBUTRIN 11:23: mouth [place] SR) 150 mg 27 daily. Medical SR tablet Indication [facility] ch s: 1tab Qam 2tabs Qpm metoprolol 2021-04 Yes 100mg Take 100 Un ean succinate 1-15 mg by ity of XL 100 mg 11:23: mouth. 24 hr Medical tablet Branch SERTraline 2021-04 Yes 50mg Take 50 mg U nivers 50 mg 1-15 by mouth. ity of tablet 11:23: Medical Branch buPROPion 2021-04 Yes 150mg Take 150 Uni vers SR 1-15 mg by ity of (WELLBUTRIN 11:23: mouth [place] SR) 150 mg 27 daily. Medical SR tablet Indication [facility] ch s: 1tab Qam 2tabs Qpm metoprolol 2021-04 Yes 100mg Take 100 Un ean succinate 1-15 mg by ity of XL 100 mg 11:23: mouth. 24 hr Medical tablet Branch SERTraline 2021-04 Yes 50mg Take 50 mg U nivers 50 mg 1-15 by mouth. ity of tablet 11:23: Medical Branch buPROPion 2021-04 Yes 150mg Take 150 Uni vers SR 1-15 mg by ity of (WELLBUTRIN 11:23: mouth [place] SR) 150 mg 27 daily. Medical SR tablet Indication Bran ch s: 1tab Qam 2tabs Qpm metoprolol 2021-04 Yes 100mg Take 100 Un ean succinate 1-15 mg by ity of XL 100 mg 11:23: mouth. 24 hr Medical tablet Branch SERTraline 2021-04 Yes 50mg Take 50 mg U nivers 50 mg 1-15 by mouth. ity of tablet 11:23: Medical Branch buPROPion 2021-04 Yes 150mg Take 150 Uni vers SR 1-15 mg by ity of (WELLBUTRIN 11:23: mouth [place] SR) 150 mg 27 daily. Medical SR tablet Indication Bran ch s: 1tab Qam 2tabs Qpm buPROPion 2021-04 Yes 150mg Take 150 Uni vers SR 1-15 mg by ity of (WELLBUTRIN 11:23: mouth [place] SR) 150 mg 27 daily. Medical SR tablet Indication Bran ch s: 1tab Qam 2tabs Qpm meloxicam 2021-04 Yes 15mg Take 15 mg Un ean 15 mg 1-15 by mouth ity of tablet 11:23: daily. [place] [address] Medical Branch metoprolol 2021-04 Yes 100mg Take 100 Un ean succinate 1-15 mg by ity of XL 100 mg 11:23: mouth. [place] [facility] Medical tablet Branch SERTraline 2021-04 Yes 50mg Take 50 mg U nivers 50 mg 1-15 by mouth. ity of tablet 11:23: [place] [address] Medical Branch metoprolol 2021-04 Yes 100mg Take 100 Un ean succinate 1-15 mg by ity of XL 100 mg 11:23: mouth. [place] [facility] Medical tablet Branch apixaban 5 2021-04 Yes 5mg Take 5 mg Un ean mg tablet 1-15 by mouth. ity o f 11:23: [place] [address] Medical Branch SERTraline 2021-04 Yes 50mg Take 50 mg U nivers 50 mg 1-15 by mouth. ity of tablet 11:23: [place] [address] Medical Branch buPROPion 2021-04 Yes 150mg Take 150 Uni vers SR 1-15 mg by ity of (WELLBUTRIN 11:23: mouth [place] SR) 150 mg 27 daily. Medical SR tablet Indication Bran ch s: 1tab Qam 2tabs Qpm meloxicam 2021-04 Yes 15mg Take 15 mg Un ean 15 mg 1-15 by mouth ity of tablet 11:23: daily. [place] [address] Medical Branch metoprolol 2021-04 Yes 100mg Take 100 Un ean succinate 1-15 mg by ity of XL 100 mg 11:23: mouth. [place] [facility] Medical tablet Branch apixaban 5 2021-04 Yes 5mg Take 5 mg Un ean mg tablet 1-15 by mouth. ity o f 11:23: [place] [address] Medical Branch SERTraline 2021-04 Yes 50mg Take 50 mg U nivers 50 mg 1-15 by mouth. ity of tablet 11:23: [place] [address] Medical Branch buPROPion 2021-04 Yes 150mg Take 150 Uni vers SR 1-15 mg by ity of (WELLBUTRIN 11:23: mouth [place] SR) 150 mg 27 daily. Medical SR tablet Indication Bran ch s: 1tab Qam 2tabs Qpm meloxicam 2021-04 Yes 15mg Take 15 mg Un ean 15 mg 1-15 by mouth ity of tablet 11:23: daily. [address] metoprolol 2021-04 Yes 100mg Take 100 Un ean succinate 1-15 mg by ity of XL 100 mg 11:23: mouth. [place] 24 hr Medical tablet Branch apixaban 5 2021-04 Yes 5mg Take 5 mg Un ean mg tablet 1-15 by mouth. ity o f 11:23: [address] SERTraline 2021-04 Yes 50mg Take 50 mg U nivers 50 mg 1-15 by mouth. ity of tablet 11:23: [address] buPROPion 2021-04 Yes 150mg Take 150 Uni vers SR 1-15 mg by ity of (WELLBUTRIN 11:23: mouth [place] SR) 150 mg 27 daily. Medical SR tablet Indication Bran ch s: 1tab Qam 2tabs Qpm meloxicam 2021-04 Yes 15mg Take 15 mg Un ean 15 mg 1-15 by mouth ity of tablet 11:23: daily. [address] metoprolol 2021-04 Yes 100mg Take 100 Un ean succinate 1-15 mg by ity of XL 100 mg 11:23: mouth. [place] 24 hr Medical tablet Branch apixaban 5 2021-04 Yes 5mg Take 5 mg Un ean mg tablet 1-15 by mouth. ity o f 11:23: [place] [address] Medical Branch SERTraline 2021-04 Yes 50mg Take 50 mg U nivers 50 mg 1-15 by mouth. ity of tablet 11:23: [address] buPROPion 2021-04 Yes 150mg Take 150 Uni vers SR 1-15 mg by ity of (WELLBUTRIN 11:23: mouth [place] SR) 150 mg 27 daily. Medical SR tablet Indication Bran ch s: 1tab Qam 2tabs Qpm meloxicam 2021-04 Yes 15mg Take 15 mg Un ean 15 mg 1-15 by mouth ity of tablet 11:23: daily. [place] [address] Medical Branch metoprolol 2021-04 Yes 100mg Take 100 Un ean succinate 1-15 mg by ity of XL 100 mg 11:23: mouth. [place] 24 hr Medical tablet Branch apixaban 5 2021-04 Yes 5mg Take 5 mg Un ean mg tablet 1-15 by mouth. ity o f 11:23: [place] [address] Medical Branch SERTraline 2021-04 Yes 50mg Take 50 mg U nivers 50 mg 1-15 by mouth. ity of tablet 11:23: [place] [address] Medical Branch buPROPion 2021-04 Yes 150mg Take 150 Uni vers SR 1-15 mg by ity of (WELLBUTRIN 11:23: mouth [place] SR) 150 mg 27 daily. Medical SR tablet Indication Bran ch s: 1tab Qam 2tabs Qpm meloxicam 2021-04 Yes 15mg Take 15 mg Un ean 15 mg 1-15 by mouth ity of tablet 11:23: daily. [place] [address] Medical Branch metoprolol 2021-04 Yes 100mg Take 100 Un ean succinate 1-15 mg by ity of XL 100 mg 11:23: mouth. [place] hr Medical tablet Branch apixaban 5 2021-04 Yes 5mg Take 5 mg Un ean mg tablet 1-15 by mouth. ity o f 11:23: [place] [address] Medical Branch SERTraline 2021-04 Yes 50mg Take 50 mg U nivers 50 mg 1-15 by mouth. ity of tablet 11:23: [place] [address] Medical Branch buPROPion 2021-04 Yes 150mg Take 150 Uni vers SR 1-15 mg by ity of (WELLBUTRIN 11:23: mouth [place] SR) 150 mg 27 daily. Medical SR tablet Indication Bran ch s: 1tab Qam 2tabs Qpm meloxicam 2021-04 Yes 15mg Take 15 mg Un ean 15 mg 1-15 by mouth ity of tablet 11:23: daily. [place] [address] Medical Branch metoprolol 2021-04 Yes 100mg Take 100 Un ean succinate 1-15 mg by ity of XL 100 mg 11:23: mouth. [place] hr Medical tablet Branch apixaban 5 2021-04 Yes 5mg Take 5 mg Un ean mg tablet 1-15 by mouth. ity o f 11:23: [address] SERTraline 2021-04 Yes 50mg Take 50 mg U nivers 50 mg 1-15 by mouth. ity of tablet 11:23: [address] buPROPion 2021-04 Yes 150mg Take 150 Uni vers SR 1-15 mg by ity of (WELLBUTRIN 11:23: mouth [place] SR) 150 mg 27 daily. Medical SR tablet Indication Bran ch s: 1tab Qam 2tabs Qpm meloxicam 2021-04 Yes 15mg Take 15 mg Un ean 15 mg 1-15 by mouth ity of tablet 11:23: daily. [address] metoprolol 2021-04 Yes 100mg Take 100 Un ean succinate 1-15 mg by ity of XL 100 mg 11:23: mouth. [place] 24 hr Medical tablet Branch apixaban 5 2021-04 Yes 5mg Take 5 mg Un ean mg tablet 1-15 by mouth. ity o f 11:23: [address] SERTraline 2021-04 Yes 50mg Take 50 mg U nivers 50 mg 1-15 by mouth. ity of tablet 11:23: [address] buPROPion 2021-04 Yes 150mg Take 150 Uni vers SR 1-15 mg by ity of (WELLBUTRIN 11:23: mouth [place] SR) 150 mg 27 daily. Medical SR tablet Indication Bran ch s: 1tab Qam 2tabs Qpm meloxicam 2021-04 Yes 15mg Take 15 mg Un ean 15 mg 1-15 by mouth ity of tablet 11:23: daily. [address] metoprolol 2021-04 Yes 100mg Take 100 Un ean succinate 1-15 mg by ity of XL 100 mg 11:23: mouth. [place] 24 hr Medical tablet Branch apixaban 5 2021-04 Yes 5mg Take 5 mg Un ean mg tablet 1-15 by mouth. ity o f 11:23: [address] SERTraline 2021-04 Yes 50mg Take 50 mg U nivers 50 mg 1-15 by mouth. ity of tablet 11:23: [address] buPROPion 2021-04 Yes 150mg Take 150 Uni vers SR 1-15 mg by ity of (WELLBUTRIN 11:23: mouth [place] SR) 150 mg 27 daily. Medical SR tablet Indication Bran ch s: 1tab Qam 2tabs Qpm meloxicam 2021-04 Yes 15mg Take 15 mg Un ean 15 mg 1-15 by mouth ity of tablet 11:23: daily. [place] [address] Medical Branch metoprolol 2021-04 Yes 100mg Take 100 Un ean succinate 1-15 mg by ity of XL 100 mg 11:23: mouth. 24 hr Medical tablet Branch SERTraline 2021-04 Yes 50mg Take 50 mg U nivers 50 mg 1-15 by mouth. ity of tablet 11:23: [place] [address] Medical Branch buPROPion 2021-04 Yes 150mg Take 150 Uni vers SR 1-15 mg by ity of (WELLBUTRIN 11:23: mouth [place] SR) 150 mg 27 daily. Medical SR tablet Indication Bran ch s: 1tab Qam 2tabs Qpm meloxicam 2021-04 Yes 15mg Take 15 mg Un ean 15 mg 1-15 by mouth ity of tablet 11:23: daily. [place] [address] Medical Branch metoprolol 2021-04 Yes 100mg Take 100 Un ean succinate 1-15 mg by ity of XL 100 mg 11:23: mouth. 24 hr Medical tablet Branch SERTraline 2021-04 Yes 50mg Take 50 mg U nivers 50 mg 1-15 by mouth. ity of tablet 11:23: [place] [address] Medical Branch buPROPion 2021-04 Yes 150mg Take 150 Uni vers SR 1-15 mg by ity of (WELLBUTRIN 11:23: mouth [place] SR) 150 mg 27 daily. Medical SR tablet Indication Bran ch s: 1tab Qam 2tabs Qpm meloxicam 2021-04 Yes 15mg Take 15 mg Un ean 15 mg 1-15 by mouth ity of tablet 11:23: daily. [place] [address] Medical Branch metoprolol 2021-04 Yes 100mg Take 100 Un ean succinate 1-15 mg by ity of XL 100 mg 11:23: mouth. 24 hr Medical tablet Branch SERTraline 2021-04 Yes 50mg Take 50 mg U nivers 50 mg 1-15 by mouth. ity of tablet 11:23: [place] [address] Medical Branch buPROPion 2021-04 Yes 150mg Take 150 Uni vers SR 1-15 mg by ity of (WELLBUTRIN 11:23: mouth [place] SR) 150 mg 27 daily. Medical SR tablet Indication Bran ch s: 1tab Qam 2tabs Qpm meloxicam 2021-04 Yes 15mg Take 15 mg Un ean 15 mg 1-15 by mouth ity of tablet 11:23: daily. [place] [address] Medical Branch metoprolol 2021-04 Yes 100mg Take 100 Un ean succinate 1-15 mg by ity of XL 100 mg 11:23: mouth. 24 hr Medical tablet Branch SERTraline 2021-04 Yes 50mg Take 50 mg U nivers 50 mg 1-15 by mouth. ity of tablet 11:23: [place] [address] Medical Branch buPROPion 2021-04 Yes 150mg Take 150 Uni vers SR 1-15 mg by ity of (WELLBUTRIN 11:23: mouth [place] SR) 150 mg 27 daily. Medical SR tablet Indication Bran ch s: 1tab Qam 2tabs Qpm meloxicam 2021-04 Yes 15mg Take 15 mg Un ean 15 mg 1-15 by mouth ity of tablet 11:23: daily. [place] [address] Medical Branch metoprolol 2021-04 Yes 100mg Take 100 Un ean succinate 1-15 mg by ity of XL 100 mg 11:23: mouth. 24 hr Medical tablet Branch SERTraline 2021-04 Yes 50mg Take 50 mg U nivers 50 mg 1-15 by mouth. ity of tablet 11:23: [place] [address] Medical Branch buPROPion 2021-04 Yes 150mg Take 150 Uni vers SR 1-15 mg by ity of (WELLBUTRIN 11:23: mouth [place] SR) 150 mg 27 daily. Medical SR tablet Indication Bran ch s: 1tab Qam 2tabs Qpm meloxicam 2021-04 Yes 15mg Take 15 mg Un ean 15 mg 1-15 by mouth ity of tablet 11:23: daily. [place] [address] Medical Branch metoprolol 2021-04 Yes 100mg Take 100 Un ean succinate 1-15 mg by ity of XL 100 mg 11:23: mouth. [place] 24 hr Medical tablet Branch SERTraline 2021-04 Yes 50mg Take 50 mg U nivers 50 mg 1-15 by mouth. ity of tablet 11:23: [place] [address] Medical Branch buPROPion 2021-04 Yes 150mg Take 150 Uni vers SR 1-15 mg by ity of (WELLBUTRIN 11:23: mouth [place] SR) 150 mg 27 daily. Medical SR tablet Indication Bran ch s: 1tab Qam 2tabs Qpm meloxicam 2021-04 Yes 15mg Take 15 mg Un ean 15 mg 1-15 by mouth ity of tablet 11:23: daily. [place] [address] Medical Branch metoprolol 2021-04 Yes 100mg Take 100 Un ean succinate 1-15 mg by ity of XL 100 mg 11:23: mouth. [place] 24 hr Medical tablet Branch SERTraline 2021-04 Yes 50mg Take 50 mg U nivers 50 mg 1-15 by mouth. ity of tablet 11:23: [place] [address] Medical Branch buPROPion 2021-04 Yes 150mg Take 150 Uni vers SR 1-15 mg by ity of (WELLBUTRIN 11:23: mouth [place] SR) 150 mg 27 daily. Medical SR tablet Indication Bran ch s: 1tab Qam 2tabs Qpm meloxicam 2021-04 Yes 15mg Take 15 mg Un ean 15 mg 1-15 by mouth ity of tablet 11:23: daily. [place] [address] Medical Branch metoprolol 2021-04 Yes 100mg Take 100 Un ean succinate 1-15 mg by ity of XL 100 mg 11:23: mouth. hr Medical tablet Branch SERTraline 2021-04 Yes 50mg Take 50 mg U nivers 50 mg 1-15 by mouth. ity of tablet 11:23: [place] [address] Medical Branch buPROPion 2021-04 Yes 150mg Take 150 Uni vers SR 1-15 mg by ity of (WELLBUTRIN 11:23: mouth [place] SR) 150 mg 27 daily. Medical SR tablet Indication Bran ch s: 1tab Qam 2tabs Qpm meloxicam 2021-04 Yes 15mg Take 15 mg Un ean 15 mg 1-15 by mouth ity of tablet 11:23: daily. [place] [address] Medical Branch metoprolol 2021-04 Yes 100mg Take 100 Un ean succinate 1-15 mg by ity of XL 100 mg 11:23: mouth. [place] 24 hr Medical tablet Branch SERTraline 2021-04 Yes 50mg Take 50 mg U nivers 50 mg 1-15 by mouth. ity of tablet 11:23: [place] [address] Medical Branch buPROPion 2021-04 Yes 150mg Take 150 Uni vers SR 1-15 mg by ity of (WELLBUTRIN 11:23: mouth [place] SR) 150 mg 27 daily. Medical SR tablet Indication Bran ch s: 1tab Qam 2tabs Qpm meloxicam 2021-04 Yes 15mg Take 15 mg Un ean 15 mg 1-15 by mouth ity of tablet 11:23: daily. [place] [address] Medical Branch metoprolol 2021-04 Yes 100mg Take 100 Un ean succinate 1-15 mg by ity of XL 100 mg 11:23: mouth. [place] 24 hr Medical tablet Branch SERTraline 2021-04 Yes 50mg Take 50 mg U nivers 50 mg 1-15 by mouth. ity of tablet 11:23: [place] [address] Medical Branch buPROPion 2021-04 Yes 150mg Take 150 Uni vers SR 1-15 mg by ity of (WELLBUTRIN 11:23: mouth [place] SR) 150 mg 27 daily. Medical SR tablet Indication Bran ch s: 1tab Qam 2tabs Qpm meloxicam 2021-04 Yes 15mg Take 15 mg Un ean 15 mg 1-15 by mouth ity of tablet 11:23: daily. [place] [address] Medical Branch metoprolol 2021-04 Yes 100mg Take 100 Un ean succinate 1-15 mg by ity of XL 100 mg 11:23: mouth. [place] 24 hr Medical tablet Branch SERTraline 2021-04 Yes 50mg Take 50 mg U nivers 50 mg 1-15 by mouth. ity of tablet 11:23: [place] [address] Medical Branch tofacitinib 2021-04- No 11mg Take 11 mg [facility] 11 mg Tb24 1-15 11-15 by mouth. ity of 11:23: 00:00 [place] 05 :00 Medical Branch tofacitinib 2021-04- No 11mg Take 11 mg [facility] 11 mg Tb24 1-15 11-15 by mouth. ity of 11:23: 00:00 [place] 05 :00 Medical Branch SERTraline 2021-04- No 50mg Take 50 mg [facility] (ZOLOFT) 50 1-15 11-15 by mouth ity of mg tablet 11:22: 00:00 daily. [place] 52 :00 Medical Branch SERTraline 2021-04- No 50mg Take 50 mg [facility] (ZOLOFT) 50 1-15 11-15 by mouth ity of mg tablet 11:22: 00:00 daily. [place] 52 :00 Medical Branch LIDOCAINE 2021-04 Yes APPLY 1 ML Un ean VISCOUS 2 % 1-11 TO ity of solution 00:00: AFFECTED [place] AREA 4 Medical TIMES Branch DAILY NEEDED FOR PAIN LIDOCAINE 2021-04 Yes APPLY 1 ML Un ean VISCOUS 2 % 1-11 TO ity of solution 00:00: AFFECTED [place] AREA 4 Medical TIMES Branch DAILY NEEDED FOR PAIN LIDOCAINE 2021-04 Yes APPLY 1 ML Un ean VISCOUS 2 % 1-11 TO ity of solution 00:00: AFFECTED [place] AREA 4 Medical TIMES Branch DAILY NEEDED FOR PAIN LIDOCAINE 2021-04 Yes APPLY 1 ML Un ean VISCOUS 2 % 1-11 TO ity of solution 00:00: AFFECTED [place] AREA 4 Medical TIMES Branch DAILY NEEDED FOR PAIN LIDOCAINE 2021-04 Yes APPLY 1 ML Un ean VISCOUS 2 % 1-11 TO ity of solution 00:00: AFFECTED [place] AREA 4 Medical TIMES Branch DAILY NEEDED FOR PAIN LIDOCAINE 2021-04 Yes APPLY 1 ML Un ean VISCOUS 2 % 1-11 TO ity of solution 00:00: AFFECTED [place] AREA 4 Medical TIMES Branch DAILY NEEDED FOR PAIN LIDOCAINE 2021-04 Yes APPLY 1 ML Un ean VISCOUS 2 % 1-11 TO ity of solution 00:00: AFFECTED [place] AREA 4 Medical TIMES Branch DAILY NEEDED FOR PAIN LIDOCAINE 2021-04 Yes APPLY 1 ML Un ean VISCOUS 2 % 1-11 TO ity of solution 00:00: AFFECTED [place] [facility] TIMES Branch DAILY NEEDED FOR PAIN LIDOCAINE 2021-04 Yes APPLY 1 ML Un ean VISCOUS 2 % 1-11 TO ity of solution 00:00: AFFECTED [place] [facility] 4 Medical TIMES Branch DAILY NEEDED FOR PAIN LIDOCAINE 2021-04 Yes APPLY 1 ML [facility] e[facility] VISCOUS 2 % 1-11 TO ity of solution 00:00: AFFECTED [place] ARE[facility] 4 Medical TIMES Branch DAILY NEEDED FOR PAIN LIDOCAINE 2021-04 Yes APPLY 1 ML [facility] VISCOUS 2 % 1-11 TO [facility]y of solution 00:00: AFFECTED [place] ARE[facility] 4 Medical TIMES Branch DAILY NEEDED FOR PAIN LIDOCAINE 2021-04 Yes APPLY 1 ML [facility] VISCOUS 2 % 1-11 TO [facility] of solution 00:00: AFFECTED [place] ARE[facility] 4 Medical TIMES Branch DAILY NEEDED FOR PAIN LIDOCAINE 2021-04 Yes APPLY 1 ML [facility] VISCOUS 2 % 1-11 TO [facility] of solution 00:00: AFFECTED ARE[facility] 4 Medical TIMES Branch DAILY NEEDED FOR PAIN LIDOCAINE 2021-04 Yes APPLY 1 ML [facility] VISCOUS 2 % 1-11 TO [facility] of solution 00:00: AFFECTED [place] [facility] 4 Medical TIMES Branch DAILY NEEDED FOR PAIN LIDOCAINE 2021-04 Yes APPLY 1 ML [facility] VISCOUS 2 % 1-11 TO [facility] of solution 00:00: AFFECTED [place] [facility] 4 Medical TIMES Branch DAILY NEEDED FOR PAIN LIDOCAINE 2021-04 Yes APPLY 1 ML [facility] e[facility] VISCOUS 2 % 1-11 TO [facility] of solution 00:00: AFFECTED [place] [facility] 4 Medical TIMES Branch DAILY NEEDED FOR PAIN LIDOCAINE 2021-04 Yes APPLY 1 ML [facility] e[facility] VISCOUS 2 % 1-11 TO [facility]y of solution 00:00: AFFECTED [place] [facility] 4 Medical TIMES Branch DAILY NEEDED FOR PAIN LIDOCAINE 2021-04 Yes APPLY 1 ML [facility] VISCOUS 2 % 1-11 TO [facility] of solution 00:00: AFFECTED [place] [facility] 4 Medical TIMES Branch DAILY NEEDED FOR PAIN LIDOCAINE 2021-04 Yes APPLY 1 ML [facility] VISCOUS 2 % 1-11 TO [facility] of solution 00:00: AFFECTED [place] [facility] 4 Medical TIMES Branch DAILY NEEDED FOR PAIN LIDOCAINE 2021-04 Yes APPLY 1 ML [facility] VISCOUS 2 % 1-11 TO [facility] of solution 00:00: AFFECTED [place] [facility] 4 Medical TIMES Branch DAILY NEEDED FOR PAIN LIDOCAINE 2021-04 Yes APPLY 1 ML [facility] VISCOUS 2 % 1-11 TO [facility] of solution 00:00: AFFECTED [place] [facility] 4 Medical TIMES Branch DAILY NEEDED FOR PAIN LIDOCAINE 2021-04 Yes APPLY 1 ML [facility] VISCOUS 2 % 1-11 TO [facility] of solution 00:00: AFFECTED [place] [facility] 4 Medical TIMES Branch DAILY NEEDED FOR PAIN LIDOCAINE 2021-04 Yes APPLY 1 ML [facility] VISCOUS 2 % 1-11 TO [facility] of solution 00:00: AFFECTED [place] [facility] 4 Medical TIMES Branch DAILY NEEDED FOR PAIN LIDOCAINE 2021-04 Yes APPLY 1 ML [facility] VISCOUS 2 % 1-11 TO [facility] of solution 00:00: AFFECTED [place] [facility] 4 Medical TIMES Branch DAILY NEEDED FOR PAIN LIDOCAINE 2021-04 Yes APPLY 1 ML [facility] VISCOUS 2 % 1-11 TO [facility] of solution 00:00: AFFECTED [facility] 4 Medical TIMES Branch DAILY NEEDED FOR PAIN LIDOCAINE 2021-04 Yes APPLY 1 ML [facility] VISCOUS 2 % 1-11 TO [facility] of solution 00:00: AFFECTED [facility] 4 Medical TIMES Branch DAILY NEEDED FOR PAIN LIDOCAINE 2021-04 Yes APPLY 1 ML [facility]ISCOUS 2 % 1-11 TO [facility] of solution 00:00: AFFECTED [facility] 4 Medical TIMES Branch DAILY NEEDED FOR PAIN LIDOCAINE 2021-04 Yes APPLY 1 ML [facility] VISCOUS 2 % 1-11 TO [facility] of solution 00:00: AFFECTED [facility] 4 Medical TIMES Branch DAILY NEEDED FOR PAIN LIDOCAINE 2021-04 Yes APPLY 1 ML [facility] VISCOUS 2 % 1-11 TO [facility] of solution 00:00: AFFECTED [facility] 4 Medical TIMES Branch DAILY NEEDED FOR PAIN LIDOCAINE 2021-04 Yes APPLY 1 ML [facility] VISCOUS 2 % 1-11 TO [facility] of solution 00:00: AFFECTED [facility] 4 Medical TIMES Branch DAILY NEEDED FOR PAIN LIDOCAINE 2021-04 Yes APPLY 1 ML [facility] VISCOUS 2 % 1-11 TO [facility] of solution 00:00: AFFECTED [facility] 4 Medical TIMES Branch DAILY NEEDED FOR PAIN LIDOCAINE 2021-04 Yes APPLY 1 ML [facility] VISCOUS 2 % 1-11 TO [facility] of solution 00:00: AFFECTED [facility] 4 Medical TIMES Branch DAILY NEEDED FOR PAIN LIDOCAINE 2021-04 Yes APPLY 1 ML [facility] VISCOUS 2 % 1-11 TO [facility] of solution 00:00: AFFECTED [facility] 4 Medical TIMES Branch DAILY NEEDED FOR PAIN LIDOCAINE 2021-04 Yes APPLY 1 ML [facility] VISCOUS 2 % 1-11 TO [facility] of solution 00:00: AFFECTED [facility] 4 Medical TIMES Branch DAILY NEEDED FOR PAIN LIDOCAINE 2021-04 Yes APPLY 1 ML [facility] VISCOUS 2 % 1-11 TO [facility] of solution 00:00: AFFECTED [facility] 4 Medical TIMES Branch DAILY NEEDED FOR PAIN LIDOCAINE 2021-04 Yes APPLY 1 ML [facility] VISCOUS 2 % 1-11 TO [facility] of solution 00:00: AFFECTED [facility] 4 Medical TIMES Branch DAILY NEEDED FOR PAIN LIDOCAINE 2021-04 Yes APPLY 1 ML [facility] VISCOUS 2 % 1-11 TO [facility] of solution 00:00: AFFECTED [place] [facility] 4 Medical TIMES Branch DAILY NEEDED FOR PAIN LIDOCAINE 2021-04 Yes APPLY 1 ML [facility] VISCOUS 2 % 1-11 TO [facility] of solution 00:00: AFFECTED [facility] 4 Medical TIMES Branch DAILY NEEDED FOR PAIN LIDOCAINE 2021-04 Yes APPLY 1 ML [facility] VISCOUS 2 % 1-11 TO [facility] of solution 00:00: AFFECTED [place] [facility] 4 Medical TIMES Branch DAILY NEEDED FOR PAIN LIDOCAINE 2021-04 Yes APPLY 1 ML [facility] VISCOUS 2 % 1-11 TO [facility] of solution 00:00: AFFECTED [place] [facility] 4 Medical TIMES Branch DAILY NEEDED FOR PAIN LIDOCAINE 2021-04 Yes APPLY 1 ML [facility] VISCOUS 2 % 1-11 TO [facility] of solution 00:00: AFFECTED [place] [facility] 4 Medical TIMES Branch DAILY NEEDED FOR PAIN LIDOCAINE 2021-04 Yes APPLY 1 ML [facility] VISCOUS 2 % 1-11 TO [facility] of solution 00:00: AFFECTED [place] [facility] 4 Medical TIMES Branch DAILY NEEDED FOR PAIN LIDOCAINE 2021-04 Yes APPLY 1 ML [facility] VISCOUS 2 % 1-11 TO [facility] of solution 00:00: AFFECTED [place] [facility] 4 Medical TIMES Branch DAILY NEEDED FOR PAIN LIDOCAINE 2021-04 Yes APPLY 1 ML [facility] VISCOUS 2 % 1-11 TO [facility] of solution 00:00: AFFECTED [place] [facility] 4 Medical TIMES Branch DAILY NEEDED FOR PAIN LIDOCAINE 2021-04 Yes APPLY 1 ML [facility] VISCOUS 2 % 1-11 TO [facility] of solution 00:00: AFFECTED [place] [facility] 4 Medical TIMES Branch DAILY NEEDED FOR PAIN LIDOCAINE 2021-04 Yes APPLY 1 ML [facility] VISCOUS 2 % 1-11 TO [facility] of solution 00:00: AFFECTED [place] [facility] 4 Medical TIMES Branch DAILY NEEDED FOR PAIN LIDOCAINE 2021-04 Yes APPLY 1 ML [facility] VISCOUS 2 % 1-11 TO [facility] of solution 00:00: AFFECTED [place] [facility] 4 Medical TIMES Branch DAILY NEEDED FOR PAIN LIDOCAINE 2021-04 Yes APPLY 1 ML [facility] VISCOUS 2 % 1-11 TO [facility] of solution 00:00: AFFECTED [place] [facility] 4 Medical TIMES Branch DAILY NEEDED FOR PAIN LIDOCAINE 2021-04 Yes APPLY 1 ML [facility] VISCOUS 2 % 1-11 TO [facility] of solution 00:00: AFFECTED [place] [facility] 4 Medical TIMES Branch DAILY NEEDED FOR PAIN LIDOCAINE 2021-04 Yes APPLY 1 ML [facility] VISCOUS 2 % 1-11 TO [facility] of solution 00:00: AFFECTED [facility] 4 Medical TIMES Branch DAILY NEEDED FOR PAIN LIDOCAINE 2021-04 Yes APPLY 1 ML [facility] VISCOUS 2 % 1-11 TO [facility] of solution 00:00: AFFECTED [facility] 4 Medical TIMES Branch DAILY NEEDED FOR PAIN LIDOCAINE 2021-04 Yes APPLY 1 ML [facility]ISCOUS 2 % 1-11 TO [facility] of solution 00:00: AFFECTED [facility] 4 Medical TIMES Branch DAILY NEEDED FOR PAIN LIDOCAINE 2021-04 Yes APPLY 1 ML [facility] VISCOUS 2 % 1-11 TO [facility] of solution 00:00: AFFECTED [facility] 4 Medical TIMES Branch DAILY NEEDED FOR PAIN LIDOCAINE 2021-04 Yes APPLY 1 ML [facility] VISCOUS 2 % 1-11 TO [facility] of solution 00:00: AFFECTED [facility] 4 Medical TIMES Branch DAILY NEEDED FOR PAIN LIDOCAINE 2021-04 Yes APPLY 1 ML [facility] VISCOUS 2 % 1-11 TO [facility] of solution 00:00: AFFECTED [facility] 4 Medical TIMES Branch DAILY NEEDED FOR PAIN LIDOCAINE 2021-04 Yes APPLY 1 ML [facility] VISCOUS 2 % 1-11 TO [facility] of solution 00:00: AFFECTED [facility] 4 Medical TIMES Branch DAILY NEEDED FOR PAIN LIDOCAINE 2021-04 Yes APPLY 1 ML [facility] VISCOUS 2 % 1-11 TO [facility] of solution 00:00: AFFECTED [facility] 4 Medical TIMES Branch DAILY NEEDED FOR PAIN LIDOCAINE 2021-04 Yes APPLY 1 ML [facility] VISCOUS 2 % 1-11 TO [facility] of solution 00:00: AFFECTED [facility] 4 Medical TIMES Branch DAILY NEEDED FOR PAIN LIDOCAINE 2021-04 Yes APPLY 1 ML [facility] VISCOUS 2 % 1-11 TO [facility] of solution 00:00: AFFECTED [facility] 4 Medical TIMES Branch DAILY NEEDED FOR PAIN LIDOCAINE 2021-04 Yes APPLY 1 ML [facility] VISCOUS 2 % 1-11 TO [facility] of solution 00:00: AFFECTED [facility] 4 Medical TIMES Branch DAILY NEEDED FOR PAIN LIDOCAINE 2021-04 Yes APPLY 1 ML [facility] VISCOUS 2 % 1-11 TO [facility] of solution 00:00: AFFECTED [facility] 4 Medical TIMES Branch DAILY NEEDED FOR PAIN LIDOCAINE 2021-04 Yes APPLY 1 ML [facility] VISCOUS 2 % 1-11 TO [facility] of solution 00:00: AFFECTED [place] [facility] 4 Medical TIMES Branch DAILY NEEDED FOR PAIN LIDOCAINE 2021-04 Yes APPLY 1 ML [facility] VISCOUS 2 % 1-11 TO [facility] of solution 00:00: AFFECTED [facility] 4 Medical TIMES Branch DAILY NEEDED FOR PAIN LIDOCAINE 2021-04 Yes APPLY 1 ML [facility] VISCOUS 2 % 1-11 TO [facility] of solution 00:00: AFFECTED [place] [facility] 4 Medical TIMES Branch DAILY NEEDED FOR PAIN LIDOCAINE 2021-04 Yes APPLY 1 ML [facility] VISCOUS 2 % 1-11 TO [facility] of solution 00:00: AFFECTED [place] [facility] 4 Medical TIMES Branch DAILY NEEDED FOR PAIN LIDOCAINE 2021-04 Yes APPLY 1 ML [facility] VISCOUS 2 % 1-11 TO [facility] of solution 00:00: AFFECTED [place] [facility] 4 Medical TIMES Branch DAILY NEEDED FOR PAIN LIDOCAINE 2021-04 Yes APPLY 1 ML [facility] VISCOUS 2 % 1-11 TO [facility] of solution 00:00: AFFECTED [place] [facility] 4 Medical TIMES Branch DAILY NEEDED FOR PAIN LIDOCAINE 2021-04 Yes APPLY 1 ML [facility] VISCOUS 2 % 1-11 TO [facility] of solution 00:00: AFFECTED [place] [facility] 4 Medical TIMES Branch DAILY NEEDED FOR PAIN LIDOCAINE 2021-04 Yes APPLY 1 ML [facility] VISCOUS 2 % 1-11 TO [facility] of solution 00:00: AFFECTED [place] [facility] 4 Medical TIMES Branch DAILY NEEDED FOR PAIN LIDOCAINE 2021-04 Yes APPLY 1 ML [facility] VISCOUS 2 % 1-11 TO [facility] of solution 00:00: AFFECTED [place] ARE[facility] 4 Medical TIMES Branch DAILY NEEDED FOR PAIN LIDOCAINE 2021-04 Yes APPLY 1 ML [facility] e[facility] VISCOUS 2 % 1-11 TO [facility] of solution 00:00: AFFECTED [place] [facility] 4 Medical TIMES Branch DAILY NEEDED FOR PAIN LIDOCAINE 2021-04 Yes APPLY 1 ML [facility] VISCOUS 2 % 1-11 TO [facility] of solution 00:00: AFFECTED [place] [facility] 4 Medical TIMES Branch DAILY NEEDED FOR PAIN LIDOCAINE 2021-04 Yes APPLY 1 ML [facility] VISCOUS 2 % 1-11 TO [facility] of solution 00:00: AFFECTED [place] [facility] 4 Medical TIMES Branch DAILY NEEDED FOR PAIN LIDOCAINE 2021-04 Yes APPLY 1 ML [facility] VISCOUS 2 % 1-11 TO [facility] of solution 00:00: AFFECTED [place] ARE[facility] 4 Medical TIMES Branch DAILY NEEDED FOR PAIN LIDOCAINE 2021-04 Yes APPLY 1 ML [facility] VISCOUS 2 % 1-11 TO [facility] of solution 00:00: AFFECTED [facility] 4 Medical TIMES Branch DAILY NEEDED FOR PAIN LIDOCAINE 2021-04 Yes APPLY 1 ML [facility] VISCOUS 2 % 1-11 TO [facility] of solution 00:00: AFFECTED [facility] 4 Medical TIMES Branch DAILY NEEDED FOR PAIN LIDOCAINE 2021-04 Yes APPLY 1 ML [facility] VISCOUS 2 % 1-11 TO [facility] of solution 00:00: AFFECTED [facility] 4 Medical TIMES Branch DAILY NEEDED FOR PAIN LIDOCAINE 2021-04 Yes APPLY 1 ML [facility] VISCOUS 2 % 1-11 TO [facility] of solution 00:00: AFFECTED [facility] 4 Medical TIMES Branch DAILY NEEDED FOR PAIN LIDOCAINE 2021-04 Yes APPLY 1 ML [facility] VISCOUS 2 % 1-11 TO [facility] of solution 00:00: AFFECTED [facility] 4 Medical TIMES Branch DAILY NEEDED FOR PAIN LIDOCAINE 2021-04 Yes APPLY 1 ML [facility] VISCOUS 2 % 1-11 TO [facility] of solution 00:00: AFFECTED [facility] 4 Medical TIMES Branch DAILY NEEDED FOR PAIN LIDOCAINE 2021-04 Yes APPLY 1 ML [facility] VISCOUS 2 % 1-11 TO [facility] of solution 00:00: AFFECTED [facility] 4 Medical TIMES Branch DAILY NEEDED FOR PAIN LIDOCAINE 2021-04 Yes APPLY 1 ML [facility] VISCOUS 2 % 1-11 TO [facility] of solution 00:00: AFFECTED [facility] 4 Medical TIMES Branch DAILY NEEDED FOR PAIN LIDOCAINE 2021-04 Yes APPLY 1 ML [facility] VISCOUS 2 % 1-11 TO [facility] of solution 00:00: AFFECTED [facility] 4 Medical TIMES Branch DAILY NEEDED FOR PAIN LIDOCAINE 2021-04 Yes APPLY 1 ML [facility] VISCOUS 2 % 1-11 TO [facility] of solution 00:00: AFFECTED [facility] 4 Medical TIMES Branch DAILY NEEDED FOR PAIN LIDOCAINE 2021-04 Yes APPLY 1 ML [facility] VISCOUS 2 % 1-11 TO [facility] of solution 00:00: AFFECTED [facility] 4 Medical TIMES Branch DAILY NEEDED FOR PAIN LIDOCAINE 2021-04 Yes APPLY 1 ML [facility] VISCOUS 2 % 1-11 TO [facility] of solution 00:00: AFFECTED [facility] 4 Medical TIMES Branch DAILY NEEDED FOR PAIN LIDOCAINE 2021-04 Yes APPLY 1 ML [facility] VISCOUS 2 % 1-11 TO [facility] of solution 00:00: AFFECTED [place] ARE[facility] 4 Medical TIMES Branch DAILY NEEDED FOR PAIN LIDOCAINE 2021-04 Yes APPLY 1 ML [facility] e[facility] VISCOUS 2 % 1-11 TO [facility] of solution 00:00: AFFECTED [facility] 4 Medical TIMES Branch DAILY NEEDED FOR PAIN LIDOCAINE 2021-04 Yes APPLY 1 ML [facility] e[facility] VISCOUS 2 % 1-11 TO [facility] of solution 00:00: AFFECTED [place] [facility] 4 Medical TIMES Branch DAILY NEEDED FOR PAIN LIDOCAINE 2021-04 Yes APPLY 1 ML [facility] e[facility] VISCOUS 2 % 1-11 TO [facility] of solution 00:00: AFFECTED [place] [facility] 4 Medical TIMES Branch DAILY NEEDED FOR PAIN LIDOCAINE 2021-04 Yes APPLY 1 ML [facility] e[facility] VISCOUS 2 % 1-11 TO [facility] of solution 00:00: AFFECTED [place] [facility] 4 Medical TIMES Branch DAILY NEEDED FOR PAIN LIDOCAINE 2021-04 Yes APPLY 1 ML [facility] VISCOUS 2 % 1-11 TO [facility] of solution 00:00: AFFECTED [place] [facility] 4 Medical TIMES Branch DAILY NEEDED FOR PAIN LIDOCAINE 2021-04 Yes APPLY 1 ML [facility] VISCOUS 2 % 1-11 TO [facility] of solution 00:00: AFFECTED [place] [facility] 4 Medical TIMES Branch DAILY NEEDED FOR PAIN LIDOCAINE 2021-04 Yes APPLY 1 ML [facility] VISCOUS 2 % 1-11 TO [facility] of solution 00:00: AFFECTED [place] [facility] 4 Medical TIMES Branch DAILY NEEDED FOR PAIN LIDOCAINE 2021-04 Yes APPLY 1 ML [facility] e[facility] VISCOUS 2 % 1-11 TO [facility] of solution 00:00: AFFECTED [place] [facility] 4 Medical TIMES Branch DAILY NEEDED FOR PAIN LIDOCAINE 2021-04 Yes APPLY 1 ML [facility] VISCOUS 2 % 1-11 TO [facility] of solution 00:00: AFFECTED [place] [facility] 4 Medical TIMES Branch DAILY NEEDED FOR PAIN LIDOCAINE 2021-04 Yes APPLY 1 ML [facility] VISCOUS 2 % 1-11 TO [facility] of solution 00:00: AFFECTED [place] [facility] 4 Medical TIMES Branch DAILY NEEDED FOR PAIN LIDOCAINE 2021-04 Yes APPLY 1 ML [facility] VISCOUS 2 % 1-11 TO [facility] of solution 00:00: AFFECTED [place] ARE[facility] 4 Medical TIMES Branch DAILY NEEDED FOR PAIN LIDOCAINE 2021-04 Yes APPLY 1 ML [facility] e[facility] VISCOUS 2 % 1-11 TO [facility] of solution 00:00: AFFECTED [place] [facility] 4 Medical TIMES Branch DAILY NEEDED FOR PAIN LIDOCAINE 2021-04 Yes APPLY 1 ML [facility] VISCOUS 2 % 1-11 TO [facility] of solution 00:00: AFFECTED [facility] 4 Medical TIMES Branch DAILY NEEDED FOR PAIN LIDOCAINE 2021-04 Yes APPLY 1 ML [facility] VISCOUS 2 % 1-11 TO [facility] of solution 00:00: AFFECTED [facility] 4 Medical TIMES Branch DAILY NEEDED FOR PAIN LIDOCAINE 2021-04 Yes APPLY 1 ML [facility] VISCOUS 2 % 1-11 TO [facility] of solution 00:00: AFFECTED [facility] 4 Medical TIMES Branch DAILY NEEDED FOR PAIN LIDOCAINE 2021-04 Yes APPLY 1 ML [facility] VISCOUS 2 % 1-11 TO [facility] of solution 00:00: AFFECTED [facility] 4 Medical TIMES Branch DAILY NEEDED FOR PAIN LIDOCAINE 2021-04 Yes APPLY 1 ML [facility] VISCOUS 2 % 1-11 TO [facility] of solution 00:00: AFFECTED [facility] 4 Medical TIMES Branch DAILY NEEDED FOR PAIN LIDOCAINE 2021-04 Yes APPLY 1 ML [facility] VISCOUS 2 % 1-11 TO [facility] of solution 00:00: AFFECTED [facility] 4 Medical TIMES Branch DAILY NEEDED FOR PAIN LIDOCAINE 2021-04 Yes APPLY 1 ML [facility] VISCOUS 2 % 1-11 TO [facility] of solution 00:00: AFFECTED [facility] 4 Medical TIMES Branch DAILY NEEDED FOR PAIN LIDOCAINE 2021-04 Yes APPLY 1 ML [facility] VISCOUS 2 % 1-11 TO [facility] of solution 00:00: AFFECTED [facility] 4 Medical TIMES Branch DAILY NEEDED FOR PAIN LIDOCAINE 2021-04 Yes APPLY 1 ML [facility] VISCOUS 2 % 1-11 TO [facility] of solution 00:00: AFFECTED [facility] 4 Medical TIMES Branch DAILY NEEDED FOR PAIN LIDOCAINE 2021-04 Yes APPLY 1 ML [facility] VISCOUS 2 % 1-11 TO [facility] of solution 00:00: AFFECTED [facility] 4 Medical TIMES Branch DAILY NEEDED FOR PAIN LIDOCAINE 2021-04 Yes APPLY 1 ML [facility] VISCOUS 2 % 1-11 TO [facility] of solution 00:00: AFFECTED [facility] 4 Medical TIMES Branch DAILY NEEDED FOR PAIN LIDOCAINE 2021-04 Yes APPLY 1 ML [facility] VISCOUS 2 % 1-11 TO [facility] of solution 00:00: AFFECTED [facility] 4 Medical TIMES Branch DAILY NEEDED FOR PAIN LIDOCAINE 2021-04 Yes APPLY 1 ML [facility] VISCOUS 2 % 1-11 TO [facility] of solution 00:00: AFFECTED [place] ARE[facility] 4 Medical TIMES Branch DAILY NEEDED FOR PAIN LIDOCAINE 2021-04 Yes APPLY 1 ML [facility] VISCOUS 2 % 1-11 TO [facility] of solution 00:00: AFFECTED [facility] 4 Medical TIMES Branch DAILY NEEDED FOR PAIN LIDOCAINE 2021-04 Yes APPLY 1 ML [facility] VISCOUS 2 % 1-11 TO [facility] of solution 00:00: AFFECTED [place] [facility] 4 Medical TIMES Branch DAILY NEEDED FOR PAIN LIDOCAINE 2021-04 Yes APPLY 1 ML [facility] VISCOUS 2 % 1-11 TO [facility] of solution 00:00: AFFECTED [place] [facility] 4 Medical TIMES Branch DAILY NEEDED FOR PAIN LIDOCAINE 2021-04 Yes APPLY 1 ML [facility] VISCOUS 2 % 1-11 TO [facility] of solution 00:00: AFFECTED [place] [facility] 4 Medical TIMES Branch DAILY NEEDED FOR PAIN LIDOCAINE 2021-04 Yes APPLY 1 ML [facility] VISCOUS 2 % 1-11 TO [facility] of solution 00:00: AFFECTED [place] [facility] 4 Medical TIMES Branch DAILY NEEDED FOR PAIN LIDOCAINE 2021-04 Yes APPLY 1 ML [facility] VISCOUS 2 % 1-11 TO [facility] of solution 00:00: AFFECTED [place] [facility] 4 Medical TIMES Branch DAILY NEEDED FOR PAIN LIDOCAINE 2021-04 Yes APPLY 1 ML [facility] VISCOUS 2 % 1-11 TO [facility] of solution 00:00: AFFECTED [place] [facility] 4 Medical TIMES Branch DAILY NEEDED FOR PAIN LIDOCAINE 2021-04 Yes APPLY 1 ML [facility] VISCOUS 2 % 1-11 TO [facility] of solution 00:00: AFFECTED [place] [facility] 4 Medical TIMES Branch DAILY NEEDED FOR PAIN LIDOCAINE 2021-04 Yes APPLY 1 ML [facility] e[facility] VISCOUS 2 % 1-11 TO [facility] of solution 00:00: AFFECTED [place] [facility] 4 Medical TIMES Branch DAILY NEEDED FOR PAIN LIDOCAINE 2021-04 Yes APPLY 1 ML [facility] VISCOUS 2 % 1-11 TO [facility] of solution 00:00: AFFECTED [place] [facility] 4 Medical TIMES Branch DAILY NEEDED FOR PAIN LIDOCAINE 2021-04 Yes APPLY 1 ML [facility] VISCOUS 2 % 1-11 TO [facility] of solution 00:00: AFFECTED [place] [facility] 4 Medical TIMES Branch DAILY NEEDED FOR PAIN LIDOCAINE 2021-04 Yes APPLY 1 ML [facility] VISCOUS 2 % 1-11 TO [facility] of solution 00:00: AFFECTED [place] [facility] 4 Medical TIMES Branch DAILY NEEDED FOR PAIN LIDOCAINE 2021-04 Yes APPLY 1 ML [facility] VISCOUS 2 % 1-11 TO [facility] of solution 00:00: AFFECTED [facility] 4 Medical TIMES [facility] DAILY NEEDED FOR PAIN LIDOCAINE 2021-04 Yes APPLY 1 ML [facility] VISCOUS 2 % 1-11 TO [facility] of solution 00:00: AFFECTED [facility] 4 Medical TIMES [facility] DAILY NEEDED FOR PAIN LIDOCAINE 2021-04 Yes APPLY 1 ML [facility] VISCOUS 2 % 1-11 TO [facility] of solution 00:00: AFFECTED [facility] 4 Medical TIMES [facility] DAILY NEEDED FOR PAIN LIDOCAINE 2021-04 Yes APPLY 1 ML [facility] VISCOUS 2 % 1-11 TO [facility] of solution 00:00: AFFECTED [facility] 4 Medical TIMES [facility] DAILY NEEDED FOR PAIN LIDOCAINE 2021-04 Yes APPLY 1 ML [facility] VISCOUS 2 % 1-11 TO [facility] of solution 00:00: AFFECTED [facility] 4 Medical TIMES [facility] DAILY NEEDED FOR PAIN LIDOCAINE 2021-04 Yes APPLY 1 ML [facility] VISCOUS 2 % 1-11 TO [facility] of solution 00:00: AFFECTED [facility] 4 Medical TIMES [facility] DAILY NEEDED FOR PAIN LIDOCAINE 2021-04 Yes APPLY 1 ML [facility] VISCOUS 2 % 1-11 TO [facility] of solution 00:00: AFFECTED [facility] 4 Medical TIMES [facility] DAILY NEEDED FOR PAIN LIDOCAINE 2021-04 Yes APPLY 1 ML [facility] VISCOUS 2 % 1-11 TO [facility] of solution 00:00: AFFECTED [facility] 4 Medical TIMES [facility] DAILY NEEDED FOR PAIN LIDOCAINE 2021-04 Yes APPLY 1 ML [facility] VISCOUS 2 % 1-11 TO [facility] of solution 00:00: AFFECTED [facility] 4 Medical TIMES [facility] DAILY NEEDED FOR PAIN LIDOCAINE 2021-04 Yes APPLY 1 ML [facility] VISCOUS 2 % 1-11 TO [facility] of solution 00:00: AFFECTED [facility] 4 Medical TIMES [facility] DAILY NEEDED FOR PAIN LIDOCAINE 2021-04 Yes APPLY 1 ML [facility] VISCOUS 2 % 1-11 TO [facility] of solution 00:00: AFFECTED [facility] 4 Medical TIMES [facility] DAILY NEEDED FOR PAIN LIDOCAINE 2021-04 Yes APPLY 1 ML [facility] VISCOUS 2 % 1-11 TO [facility] of solution 00:00: AFFECTED [facility] 4 Medical TIMES [facility] DAILY NEEDED FOR PAIN LIDOCAINE 2021-04 Yes APPLY 1 ML [facility] VISCOUS 2 % 1-11 TO [facility] of solution 00:00: AFFECTED [place] [facility] 4 Medical TIMES Branch DAILY NEEDED FOR PAIN LIDOCAINE 2021-04 Yes APPLY 1 ML [facility] e[facility] VISCOUS 2 % 1-11 TO [facility] of solution 00:00: AFFECTED [facility] 4 Medical TIMES [facility] DAILY NEEDED FOR PAIN LIDOCAINE 2021-04 Yes APPLY 1 ML [facility] VISCOUS 2 % 1-11 TO [facility] of solution 00:00: AFFECTED [place] [facility] 4 Medical TIMES Branch DAILY NEEDED FOR PAIN LIDOCAINE 2021-04 Yes APPLY 1 ML [facility] e[facility] VISCOUS 2 % 1-11 TO [facility] of solution 00:00: AFFECTED [place] [facility] 4 Medical TIMES Branch DAILY NEEDED FOR PAIN LIDOCAINE 2021-04 Yes APPLY 1 ML [facility] e[facility] VISCOUS 2 % 1-11 TO [facility] of solution 00:00: AFFECTED [place] [facility] 4 Medical TIMES [facility] DAILY NEEDED FOR PAIN LIDOCAINE 2021-04 Yes APPLY 1 ML [facility] VISCOUS 2 % 1-11 TO [facility] of solution 00:00: AFFECTED [place] [facility] 4 Medical TIMES Branch DAILY NEEDED FOR PAIN LIDOCAINE 2021-04 Yes APPLY 1 ML [facility] VISCOUS 2 % 1-11 TO [facility] of solution 00:00: AFFECTED [place] [facility] 4 Medical TIMES Branch DAILY NEEDED FOR PAIN LIDOCAINE 2021-04 Yes APPLY 1 ML [facility] e[facility] VISCOUS 2 % 1-11 TO [facility] of solution 00:00: AFFECTED [place] [facility] 4 Medical TIMES Branch DAILY NEEDED FOR PAIN LIDOCAINE 2021-04 Yes APPLY 1 ML [facility] e[facility] VISCOUS 2 % 1-11 TO [facility] of solution 00:00: AFFECTED [place] [facility] 4 Medical TIMES Branch DAILY NEEDED FOR PAIN LIDOCAINE 2021-04 Yes APPLY 1 ML [facility] e[facility] VISCOUS 2 % 1-11 TO [facility] of solution 00:00: AFFECTED [place] [facility] 4 Medical TIMES Branch DAILY NEEDED FOR PAIN LIDOCAINE 2021-04 Yes APPLY 1 ML [facility] e[facility] VISCOUS 2 % 1-11 TO [facility] of solution 00:00: AFFECTED [place] [facility] 4 Medical TIMES Branch DAILY NEEDED FOR PAIN LIDOCAINE 2021-04 Yes APPLY 1 ML [facility] e[facility] VISCOUS 2 % 1-11 TO [facility] of solution 00:00: AFFECTED [place] [facility] 4 Medical TIMES Branch DAILY NEEDED FOR PAIN LIDOCAINE 2021-04 Yes APPLY 1 ML Un e[facility] VISCOUS 2 % 1-11 TO [facility] of solution 00:00: AFFECTED [place] ARE[facility] 4 Medical TIMES Branch DAILY NEEDED FOR PAIN LIDOCAINE 2021-04 Yes APPLY 1 ML [facility] e[facility] VISCOUS 2 % 1-11 TO [facility] of solution 00:00: AFFECTED [facility] 4 Medical TIMES Branch DAILY NEEDED FOR PAIN LIDOCAINE 2021-04 Yes APPLY 1 ML [facility] VISCOUS 2 % 1-11 TO [facility] of solution 00:00: AFFECTED [facility] 4 Medical TIMES [facility] DAILY NEEDED FOR PAIN LIDOCAINE 2021-04 Yes APPLY 1 ML [facility] VISCOUS 2 % 1-11 TO [facility] of solution 00:00: AFFECTED [facility] 4 Medical TIMES Branch DAILY NEEDED FOR PAIN LIDOCAINE 2021-04 Yes APPLY 1 ML [facility] VISCOUS 2 % 1-11 TO [facility] of solution 00:00: AFFECTED [facility] 4 Medical TIMES Branch DAILY NEEDED FOR PAIN LIDOCAINE 2021-04 Yes APPLY 1 ML [facility] VISCOUS 2 % 1-11 TO [facility] of solution 00:00: AFFECTED [facility] 4 Medical TIMES Branch DAILY NEEDED FOR PAIN LIDOCAINE 2021-04 Yes APPLY 1 ML [facility] VISCOUS 2 % 1-11 TO [facility] of solution 00:00: AFFECTED [facility] 4 Medical TIMES Branch DAILY NEEDED FOR PAIN LIDOCAINE 2021-04 Yes APPLY 1 ML [facility] VISCOUS 2 % 1-11 TO [facility] of solution 00:00: AFFECTED [facility] 4 Medical TIMES [facility] DAILY NEEDED FOR PAIN LIDOCAINE 2021-04 Yes APPLY 1 ML [facility] VISCOUS 2 % 1-11 TO [facility] of solution 00:00: AFFECTED [facility] 4 Medical TIMES Branch DAILY NEEDED FOR PAIN LIDOCAINE 2021-04 Yes APPLY 1 ML [facility] VISCOUS 2 % 1-11 TO [facility] of solution 00:00: AFFECTED [facility] 4 Medical TIMES Branch DAILY NEEDED FOR PAIN LIDOCAINE 2021-04 Yes APPLY 1 ML [facility] VISCOUS 2 % 1-11 TO [facility] of solution 00:00: AFFECTED [facility] 4 Medical TIMES Branch DAILY NEEDED FOR PAIN LIDOCAINE 2021-04 Yes APPLY 1 ML [facility] VISCOUS 2 % 1-11 TO [facility] of solution 00:00: AFFECTED [facility] 4 Medical TIMES Branch DAILY NEEDED FOR PAIN LIDOCAINE 2021-04 Yes APPLY 1 ML Un ean VISCOUS 2 % 1-11 TO ity of solution 00:00: AFFECTED AREA 4 Medical TIMES Branch DAILY NEEDED FOR PAIN LIDOCAINE 2021-04 Yes APPLY 1 ML Un ean VISCOUS 2 % 1-11 TO ity of solution 00:00: AFFECTED [place] AREA 4 Medical TIMES Branch DAILY NEEDED FOR PAIN LIDOCAINE 2021-04 Yes APPLY 1 ML Un ean VISCOUS 2 % 1-11 TO ity of solution 00:00: AFFECTED AREA 4 Medical TIMES Branch DAILY NEEDED FOR PAIN LIDOCAINE 2021-04 Yes APPLY 1 ML Un ean VISCOUS 2 % 1-11 TO ity of solution 00:00: AFFECTED [place] AREA 4 Medical TIMES Branch DAILY NEEDED FOR PAIN LIDOCAINE 2021-04 Yes APPLY 1 ML Un ean VISCOUS 2 % 1-11 TO ity of solution 00:00: AFFECTED [place] AREA 4 Medical TIMES Branch DAILY NEEDED FOR PAIN LIDOCAINE 2021-04 Yes APPLY 1 ML Un ean VISCOUS 2 % 1-11 TO ity of solution 00:00: AFFECTED [place] AREA 4 Medical TIMES Branch DAILY NEEDED FOR PAIN LIDOCAINE 2021-04 Yes APPLY 1 ML Un ean VISCOUS 2 % 1-11 TO ity of solution 00:00: AFFECTED [place] AREA 4 Medical TIMES Branch DAILY NEEDED FOR PAIN LIDOCAINE 2021-04 Yes APPLY 1 ML Un ean VISCOUS 2 % 1-11 TO ity of solution 00:00: AFFECTED [place] AREA 4 Medical TIMES Branch DAILY NEEDED FOR PAIN LIDOCAINE 2021-04 Yes APPLY 1 ML Un ean VISCOUS 2 % 1-11 TO ity of solution 00:00: AFFECTED [place] AREA 4 Medical TIMES Branch DAILY NEEDED FOR PAIN LIDOCAINE 2021-04 Yes APPLY 1 ML Un ean VISCOUS 2 % 1-11 TO ity of solution 00:00: AFFECTED [place] AREA 4 Medical TIMES Branch DAILY NEEDED FOR PAIN LIDOCAINE 2021-04 Yes APPLY 1 ML Un ean VISCOUS 2 % 1-11 TO ity of solution 00:00: AFFECTED [place] AREA 4 Medical TIMES Branch DAILY NEEDED FOR PAIN LIDOCAINE 2021-04 Yes APPLY 1 [facility] VISCOUS 2 % 1-11 TO ity of solution 00:00: AFFECTED [place] AREA 4 Medical TIMES Branch DAILY NEEDED FOR PAIN LIDOCAINE 2021-04 Yes APPLY 1 [facility] VISCOUS 2 % 1-11 TO ity of solution 00:00: AFFECTED [place] AREA 4 Medical TIMES Branch DAILY NEEDED FOR PAIN LIDOCAINE 2021-04 Yes APPLY 1 [facility] VISCOUS 2 % 1-11 TO ity of solution 00:00: AFFECTED [place] AREA 4 Medical TIMES Branch DAILY NEEDED FOR PAIN LIDOCAINE 2021-04 Yes APPLY 1 ML [facility] VISCOUS 2 % 1-11 TO ity of solution 00:00: AFFECTED [place] AREA 4 Medical TIMES Branch DAILY NEEDED FOR PAIN LIDOCAINE 2021-04 Yes APPLY 1 ML [facility] VISCOUS 2 % 1-11 TO ity of solution 00:00: AFFECTED AREA 4 Medical TIMES Branch DAILY NEEDED FOR PAIN LIDOCAINE 2021-04 Yes APPLY 1 [facility] VISCOUS 2 % 1-11 TO ity of solution 00:00: AFFECTED [place] AREA 4 Medical TIMES Branch DAILY NEEDED FOR PAIN LIDOCAINE 2021-04 Yes APPLY 1 ML [facility] VISCOUS 2 % 1-11 TO ity of solution 00:00: AFFECTED [place] AREA 4 Medical TIMES Branch DAILY NEEDED FOR PAIN foLIC acid 2021-04 Yes 1mg Take 1 mg [facility] 1 mg tablet 0-16 by mouth ity of 00:00: in the [place] morning. [facility] foLIC acid 2021- Yes 1mg Take 1 mg [facility] 1 mg tablet 0-16 by mouth ity of 00:00: in the [place] morning. [facility] foLIC acid 2021- Yes 1mg Take 1 mg [facility] 1 mg tablet 0-16 by mouth ity of 00:00: in the [place] morning. [facility] foLIC acid 2021- Yes 1mg Take 1 mg [facility] 1 mg tablet 0-16 by mouth ity of 00:00: in the [place] morning. [facility] foLIC acid 2021- Yes 1mg Take 1 mg [facility] 1 mg tablet 0-16 by mouth ity of 00:00: in the [place] morning. [facility] foLIC acid 2021- Yes 1mg Take 1 mg [facility] 1 mg tablet 0-16 by mouth ity of 00:00: in the [place] morning. [facility] foLIC acid 2021- Yes 1mg Take 1 mg [facility] 1 mg tablet 0-16 by mouth ity of 00:00: in the [place] morning. [facility] foLIC acid 2021- Yes 1mg Take 1 mg [facility] 1 mg tablet 0-16 by mouth ity of 00:00: in the [place] morning. [facility] foLIC acid 2021- Yes 1mg Take 1 mg [facility] 1 mg tablet 0-16 by mouth ity of 00:00: in the [place] morning. [facility] foLIC acid 2022-1 Yes 1mg Take 1 mg [facility] 1 mg tablet 0-16 by mouth ity of 00:00: in the [place] morning. [facility] foLIC acid 2-1 Yes 1mg Take 1 mg [facility] 1 mg tablet 0-16 by mouth ity of 00:00: in the [place] morning. [facility] foLIC acid 2-1 Yes 1mg Take 1 mg [facility] 1 mg tablet 0-16 by mouth ity of 00:00: in the [place] morning. [facility] foLIC acid 2-1 Yes 1mg Take 1 mg [facility] 1 mg tablet 0-16 by mouth ity of 00:00: in the [place] morning. [facility] foLIC acid 2-1 Yes 1mg Take 1 mg [facility] 1 mg tablet 0-16 by mouth ity of 00:00: in the [place] morning. [facility] foLIC acid 2-1 Yes 1mg Take 1 mg [facility] 1 mg tablet 0-16 by mouth ity of 00:00: in the [place] morning. [facility] foLIC acid 2-1 Yes 1mg Take 1 mg [facility] 1 mg tablet 0-16 by mouth ity of 00:00: in the [place] morning. [facility] foLIC acid 2-1 Yes 1mg Take 1 mg [facility] 1 mg tablet 0-16 by mouth ity of 00:00: in the [place] morning. [facility] foLIC acid 2-1 Yes 1mg Take 1 mg [facility] 1 mg tablet 0-16 by mouth ity of 00:00: in the [place] morning. [facility] foLIC acid 2-1 Yes 1mg Take 1 mg [facility] 1 mg tablet 0-16 by mouth ity of 00:00: in the [place] morning. [facility] foLIC acid 2022-1 Yes 1mg Take 1 mg [facility] 1 mg tablet 0-16 by mouth ity of 00:00: in the [place] morning. [facility] foLIC acid 2022-1 Yes 1mg Take 1 mg [facility] 1 mg tablet 0-16 by mouth ity of 00:00: in the [place] morning. [facility] foLIC acid 2022-1 Yes 1mg Take 1 mg [facility] 1 mg tablet 0-16 by mouth ity of 00:00: in the [place] morning. [facility] foLIC acid 2022-1 Yes 1mg Take 1 mg [facility] 1 mg tablet 0-16 by mouth ity of 00:00: in the [place] 00 morning. [facility] foLIC acid 2021- Yes 1mg Take 1 mg [facility] 1 mg tablet 0-16 by mouth ity of 00:00: in the [place] 00 morning. [facility] foLIC acid 2021- Yes 1mg Take 1 mg [facility] 1 mg tablet 0-16 by mouth ity of 00:00: in the [place] 00 morning. [facility] foLIC acid 2021- Yes 1mg Take 1 mg [facility] 1 mg tablet 0-16 by mouth ity of 00:00: in the [place] 00 morning. [facility] foLIC acid 2021- Yes 1mg Take 1 mg [facility] 1 mg tablet 0-16 by mouth ity of 00:00: in the [place] 00 morning. [facility] foLIC acid 2021- Yes 1mg Take 1 mg [facility] 1 mg tablet 0-16 by mouth ity of 00:00: in the [place] 00 morning. [facility] foLIC acid 2021- Yes 1mg Take 1 mg [facility] 1 mg tablet 0-16 by mouth ity of 00:00: in the [place] 00 morning. [facility] foLIC acid 2021- Yes 1mg Take 1 mg [facility] 1 mg tablet 0-16 by mouth ity of 00:00: in the [place] 00 morning. [facility] foLIC acid 2021- Yes 1mg Take 1 mg [facility] 1 mg tablet 0-16 by mouth ity of 00:00: in the [place] 00 morning. [facility] foLIC acid 2021- Yes 1mg Take 1 mg [facility] 1 mg tablet 0-16 by mouth ity of 00:00: in the [place] 00 morning. [facility] foLIC acid 2021- Yes 1mg Take 1 mg [facility] 1 mg tablet 0-16 by mouth ity of 00:00: in the [place] 00 morning. [facility] foLIC acid 2021-2022- No 1mg Take 1 mg U nivers 1 mg tablet 0-16 02-05 by mouth ity of 00:00: 00:00 in the [place] 00 :00 morning. [facility] foLIC acid 2021-2022- No 1mg Take 1 mg [facility] nivers 1 mg tablet 0-16 -05 by mouth ity of 00:00: 00:00 in the [place] 00 :00 morning. [facility] foLIC acid 2021-04- No 1mg Take 1 mg [facility] nivers 1 mg tablet 016 -05 by mouth ity of 00:00: 00:00 in the [place] 00 :00 morning. [facility] foLIC acid 2021-04- No 1mg Take 1 mg [facility]ivers 1 mg tablet 016 -05 by mouth ity of 00:00: 00:00 in the [place] 00 :00 morning. [facility] foLIC acid 2021-04- No 1mg Take 1 mg [facility]ivers 1 mg tablet 016 -05 by mouth ity of 00:00: 00:00 in the [place] 00 :00 morning. [facility] methotrexat 2021- Yes TAKE 3 [facility] 2.5 mg 0-11 TABLETS BY ity o f tablet 00:00: MOUTH ONCE [facility] methotrexat 2021- Yes TAKE 3 [facility] e 2.5 mg 0-11 TABLETS BY ity o f tablet 00:00: MOUTH ONCE [facility] methotrexat 2021- Yes TAKE 3 [facility] e 2.5 mg 0-11 TABLETS BY ity o f tablet 00:00: MOUTH ONCE [facility] methotrexat 2021- Yes TAKE 3 [facility] 2.5 mg 0-11 TABLETS BY ity o f tablet 00:00: MOUTH ONCE [facility] methotrexat 2- Yes TAKE 3 [facility] 2.5 mg 0-11 TABLETS BY ity o f tablet 00:00: MOUTH ONCE [facility] methotrexat 2- Yes TAKE 3 [facility] e 2.5 mg 0-11 TABLETS BY ity o f tablet 00:00: MOUTH ONCE A [facility] methotrexat 2- Yes TAKE 3 [facility] 2.5 mg 0-11 TABLETS BY ity o f tablet 00:00: MOUTH ONCE A [facility] methotrexat 2- Yes TAKE 3 [facility] 2.5 mg 0-11 TABLETS BY ity o f tablet 00:00: MOUTH ONCE A [facility] methotrexat 2- Yes TAKE 3 [facility] 2.5 mg 0-11 TABLETS BY ity o f tablet 00:00: MOUTH ONCE [facility] methotrexat 2021-04 Yes TAKE 3 [facility] 2.5 mg 0-11 TABLETS BY ity o f tablet 00:00: MOUTH ONCE [facility] methotrexat 2021-04 Yes TAKE 3 [facility] 2.5 mg 0-11 TABLETS BY ity o f tablet 00:00: MOUTH ONCE [facility] methotrexat 2021-04 Yes TAKE 3 [facility] 2.5 mg 0-11 TABLETS BY ity o f tablet 00:00: MOUTH ONCE [facility] methotrexat 2021-04 Yes TAKE 3 [facility] 2.5 mg 0-11 TABLETS BY ity o f tablet 00:00: MOUTH ONCE [facility] methotrexat 2021-04 Yes TAKE 3 [facility] 2.5 mg 0-11 TABLETS BY ity o f tablet 00:00: MOUTH ONCE [facility] methotrexat 2021-04 Yes TAKE 3 [facility] 2.5 mg 0-11 TABLETS BY ity o f tablet 00:00: MOUTH ONCE [facility] methotrexat 2021-04 Yes TAKE 3 [facility] 2.5 mg 0-11 TABLETS BY ity o f tablet 00:00: MOUTH ONCE [facility] methotrexat 2021-04 Yes TAKE 3 [facility] 2.5 mg 0-11 TABLETS BY ity o f tablet 00:00: MOUTH ONCE [facility] methotrexat 2021-04 Yes TAKE 3 [facility] 2.5 mg 0-11 TABLETS BY ity o f tablet 00:00: MOUTH ONCE [facility] methotrexat 2021-04 Yes TAKE 3 [facility] 2.5 mg 0-11 TABLETS BY ity o f tablet 00:00: MOUTH ONCE [facility] methotrexat 2021-04 Yes TAKE 3 [facility] 2.5 mg 0-11 TABLETS BY ity o f tablet 00:00: MOUTH ONCE [facility] methotrexat 2021-04 Yes TAKE 3 [facility] 2.5 mg 0-11 TABLETS BY ity o f tablet 00:00: MOUTH ONCE [facility] methotrexat 2021-04 Yes TAKE 3 [facility] 2.5 mg 0-11 TABLETS BY ity o f tablet 00:00: MOUTH ONCE [facility] methotrexat 2021-04 Yes TAKE 3 [facility] 2.5 mg 0-11 TABLETS BY ity o f tablet 00:00: MOUTH ONCE [facility] methotrexat 2021-04 Yes TAKE 3 [facility] 2.5 mg 0-11 TABLETS BY ity o f tablet 00:00: MOUTH ONCE [facility] methotrexat 2021-04 Yes TAKE 3 [facility] 2.5 mg 0-11 TABLETS BY ity o f tablet 00:00: MOUTH ONCE [facility] methotrexat 2021-04 Yes TAKE 3 [facility] 2.5 mg 0-11 TABLETS BY ity o f tablet 00:00: MOUTH ONCE [facility] methotrexat 2021-04 Yes TAKE 3 [facility] 2.5 mg 0-11 TABLETS BY ity o f tablet 00:00: MOUTH ONCE [facility] methotrexat 2021-04 Yes TAKE 3 [facility] 2.5 mg 0-11 TABLETS BY ity o f tablet 00:00: MOUTH ONCE [facility] methotrexat 2021-04 Yes TAKE 3 [facility] 2.5 mg 0-11 TABLETS BY ity o f tablet 00:00: MOUTH ONCE [facility] methotrexat 2021-04 Yes TAKE 3 [facility] 2.5 mg 0-11 TABLETS BY ity o f tablet 00:00: MOUTH ONCE [facility] methotrexat 2021-04 Yes TAKE 3 [facility] 2.5 mg 0-11 TABLETS BY ity o f tablet 00:00: MOUTH ONCE [facility] methotrexat 2021-04 Yes TAKE 3 [facility] 2.5 mg 0-11 TABLETS BY ity o f tablet 00:00: MOUTH ONCE [facility] methotrexat 2021-04 Yes TAKE 3 [facility] 2.5 mg 0-11 TABLETS BY ity o f tablet 00:00: MOUTH ONCE [facility] methotrexat 2021-04- No TAKE 3 [facility] 2.5 mg 0-11 02-05 TABLETS BY ity of tablet 00:00: 00:00 MOUTH ONCE [place] : [facility] methotrexat 2021-04- No TAKE 3 [facility] 2.5 mg 0-11 02-05 TABLETS BY [facility]y of tablet 00:00: 00:[place] ONCE [place] 00 :00 A W[place] [facility] methotrexat 2021-04- No TAKE 3 [facility] 2.5 mg 0-11 02-05 TABLETS BY [facility] of tablet 00:00: 00:[place] ONCE [place] 00 :00 A W[place] [facility] methotrexat 2021-04- No TAKE 3 [facility] 2.5 mg 0-11 02-05 TABLETS BY [facility] of tablet 00:00: 00:[place] ONCE [place] 00 :00 A WEEK [facility] methotrexat 2021-04- No TAKE 3 [facility] 2.5 mg 0-11 02-05 TABLETS BY it[facility] of tablet 00:00: 00:[place] M[place]TH ONCE [place] 00 :00 A WEEK [facility] pantoprazol 2021-0 Yes 40mg Take 40 mg [facility] 40 mg EC 9-15 by mouth ity o f tablet 00:00: in the [place] 00 morning. [facility] pantoprazol 2021-0 Yes 40mg Take 40 mg [facility] e 40 mg EC 9-15 by mouth ity o f tablet 00:00: in the [place] 00 morning. [facility] pantoprazol 2021-0 Yes 40mg Take 40 mg [facility] e 40 mg EC 9-15 by mouth ity o f tablet 00:00: in the [place] 00 morning. [facility] pantoprazol 2021-0 Yes 40mg Take 40 mg [facility] e 40 mg EC 9-15 by mouth ity o f tablet 00:00: in the [place] morning. [facility] pantoprazol 2021-0 Yes 40mg Take 40 mg [facility] e 40 mg EC 9-15 by mouth ity o f tablet 00:00: in the [place] 00 morning. [facility] pantoprazol 2021-0 Yes 40mg Take 40 mg [facility] e 40 mg EC 9-15 by mouth ity o f tablet 00:00: in the [place] 00 morning. [facility] pantoprazol 2021-0 Yes 40mg Take 40 mg [facility] e 40 mg EC 9-15 by mouth ity o f tablet 00:00: in the [place] 00 morning. [facility] pantoprazol 2021-0 Yes 40mg Take 40 mg [facility] e 40 mg EC 9-15 by mouth ity o f tablet 00:00: in the [place] 00 morning. [facility] pantoprazol 2022-0 Yes 40mg Take 40 mg [facility] e 40 mg EC 9-15 by mouth ity o f tablet 00:00: in the [place] 00 morning. [facility] pantoprazol 2022-0 Yes 40mg Take 40 mg [facility] e 40 mg EC 9-15 by mouth ity o f tablet 00:00: in the [place] 00 morning. [facility] pantoprazol 2022-0 Yes 40mg Take 40 mg [facility] e 40 mg EC 9-15 by mouth ity o f tablet 00:00: in the [place] 00 morning. [facility] pantoprazol 2022-0 Yes 40mg Take 40 mg [facility] e 40 mg EC 9-15 by mouth ity o f tablet 00:00: in the [place] 00 morning. [facility] pantoprazol 2022-0 Yes 40mg Take 40 mg [facility] e 40 mg EC 9-15 by mouth ity o f tablet 00:00: in the [place] 00 morning. [facility] pantoprazol 2022-0 Yes 40mg Take 40 mg [facility] e 40 mg EC 9-15 by mouth ity o f tablet 00:00: in the [place] 00 morning. [facility] pantoprazol 2022-0 Yes 40mg Take 40 mg [facility] e 40 mg EC 9-15 by mouth ity o f tablet 00:00: in the [place] 00 morning. [facility] pantoprazol 2022-0 Yes 40mg Take 40 mg [facility] e 40 mg EC 9-15 by mouth ity o f tablet 00:00: in the [place] 00 morning. [facility] pantoprazol 2022-0 Yes 40mg Take 40 mg [facility] e 40 mg EC 9-15 by mouth ity o f tablet 00:00: in the [place] 00 morning. [facility] pantoprazol 2022-0 Yes 40mg Take 40 mg [facility] e 40 mg EC 9-15 by mouth ity o f tablet 00:00: in the [place] 00 morning. [facility] pantoprazol 2022-0 Yes 40mg Take 40 mg [facility] e 40 mg EC 9-15 by mouth ity o f tablet 00:00: in the [place] 00 morning. [facility] pantoprazol 2022-0 Yes 40mg Take 40 mg [facility] e 40 mg EC 9-15 by mouth ity o f tablet 00:00: in the [place] 00 morning. [facility] pantoprazol 2022-0 Yes 40mg Take 40 mg [facility] e 40 mg EC 9-15 by mouth ity o f tablet 00:00: in the [place] 00 morning. [facility] pantoprazol 2022-0 Yes 40mg Take 40 mg [facility] e 40 mg EC 9-15 by mouth ity o f tablet 00:00: in the [place] 00 morning. [facility] pantoprazol 2022-0 Yes 40mg Take 40 mg [facility] e 40 mg EC 9-15 by mouth ity o f tablet 00:00: in the [place] 00 morning. [facility] pantoprazol 2022-0 Yes 40mg Take 40 mg [facility] e 40 mg EC 9-15 by mouth ity o f tablet 00:00: in the [place] morning. [facility] pantoprazol 2022-0 Yes 40mg Take 40 mg [facility] e 40 mg EC 9-15 by mouth ity o f tablet 00:00: in the [place] morning. [facility] pantoprazol 2-0 Yes 40mg Take 40 mg [facility] e 40 mg EC 9-15 by mouth ity o f tablet 00:00: in the [place] morning. [facility] pantoprazol 2-0 Yes 40mg Take 40 mg [facility] e 40 mg EC 9-15 by mouth ity o f tablet 00:00: in the [place] 00 morning. [facility] pantoprazol 2-0 Yes 40mg Take 40 mg [facility] e 40 mg EC 9-15 by mouth ity o f tablet 00:00: in the [place] 00 morning. [facility] pantoprazol 2022-0 Yes 40mg Take 40 mg [facility] e 40 mg EC 9-15 by mouth ity o f tablet 00:00: in the [place] morning. [facility] pantoprazol 2022-0 Yes 40mg Take 40 mg [facility] 40 mg EC 9-15 by mouth ity o f tablet 00:00: in the [place] morning. [facility] pantoprazol 2022-0 Yes 40mg Take 40 mg [facility] e 40 mg EC 9-15 by mouth ity o f tablet 00:00: in the [place] 00 morning. [facility] pantoprazol 2022-0 Yes 40mg Take 40 mg [facility] 40 mg EC 9-15 by mouth ity o f tablet 00:00: in the [place] 00 morning. [facility] pantoprazol 2022-0 Yes 40mg Take 40 mg [facility] e 40 mg EC 9-15 by mouth ity o f tablet 00:00: in the [place] 00 morning. [facility] pantoprazol 2022-0 Yes 40mg Take 40 mg [facility] e 40 mg EC 9-15 by mouth ity o f tablet 00:00: in the [place] 00 morning. [facility] pantoprazol 2022-0 Yes 40mg Take 40 mg [facility] e 40 mg EC 9-15 by mouth ity o f tablet 00:00: in the [place] 00 morning. [facility] pantoprazol 2022-0 Yes 40mg Take 40 mg [facility] e 40 mg EC 9-15 by mouth ity o f tablet 00:00: in the [place] 00 morning. [facility] pantoprazol 2022-0 Yes 40mg Take 40 mg [facility] e 40 mg EC 9-15 by mouth ity o f tablet 00:00: in the [place] 00 morning. [facility] pantoprazol 2022-0 Yes 40mg Take 40 mg [facility] 40 mg EC 9-15 by mouth ity o f tablet 00:00: in the [place] 00 morning. [facility] pantoprazol 2022-0 Yes 40mg Take 40 mg [facility] e 40 mg EC 9-15 by mouth ity o f tablet 00:00: in the [place] 00 morning. [facility] pantoprazol 2022-0 Yes 40mg Take 40 mg [facility] e 40 mg EC 9-15 by mouth ity o f tablet 00:00: in the [place] 00 morning. [facility] pantoprazol 2022-0 Yes 40mg Take 40 mg [facility] e 40 mg EC 9-15 by mouth ity o f tablet 00:00: in the [place] 00 morning. [facility] pantoprazol 2022-0 Yes 40mg Take 40 mg [facility] 40 mg EC 9-15 by mouth ity o f tablet 00:00: in the [place] 00 morning. [facility] pantoprazol 2022-0 Yes 40mg Take 40 mg [facility] 40 mg EC 9-15 by mouth ity o f tablet 00:00: in the [place] 00 morning. [facility] pantoprazol 2022-0 Yes 40mg Take 40 mg [facility] 40 mg EC 9-15 by mouth ity o f tablet 00:00: in the [place] 00 morning. [facility] pantoprazol 2022-0 Yes 40mg Take 40 mg [facility] 40 mg EC 9-15 by mouth ity o f tablet 00:00: in the [place] 00 morning. [facility] pantoprazol 2022-0 Yes 40mg Take 40 mg [facility] 40 mg EC 9-15 by mouth ity o f tablet 00:00: in the [place] 00 morning. [facility] pantoprazol 2022-0 Yes 40mg Take 40 mg [facility] 40 mg EC 9-15 by mouth ity o f tablet 00:00: in the [place] 00 morning. [facility] pantoprazol 2022-0 Yes 40mg Take 40 mg [facility] 40 mg EC 9-15 by mouth ity o f tablet 00:00: in the [place] 00 morning. [facility] pantoprazol 2022-0 Yes 40mg Take 40 mg [facility] 40 mg EC 9-15 by mouth ity o f tablet 00:00: in the [place] morning. [facility] pantoprazol 2022-0 Yes 40mg Take 40 mg [facility] 40 mg EC 9-15 by mouth ity o f tablet 00:00: in the [place] morning. [facility] pantoprazol 2-0 Yes 40mg Take 40 mg [facility] e 40 mg EC 9-15 by mouth ity o f tablet 00:00: in the [place] morning. [facility] pantoprazol 2-0 Yes 40mg Take 40 mg [facility] e 40 mg EC 9-15 by mouth ity o f tablet 00:00: in the [place] 00 morning. [facility] pantoprazol 2-0 Yes 40mg Take 40 mg [facility] e 40 mg EC 9-15 by mouth ity o f tablet 00:00: in the [place] 00 morning. [facility] pantoprazol 2022-0 Yes 40mg Take 40 mg [facility] 40 mg EC 9-15 by mouth ity o f tablet 00:00: in the [place] morning. [facility] pantoprazol 2022-0 Yes 40mg Take 40 mg [facility] 40 mg EC 9-15 by mouth ity o f tablet 00:00: in the [place] morning. [facility] pantoprazol 2022-0 Yes 40mg Take 40 mg [facility] 40 mg EC 9-15 by mouth ity o f tablet 00:00: in the [place] 00 morning. [facility] pantoprazol 2022-0 Yes 40mg Take 40 mg [facility] 40 mg EC 9-15 by mouth ity o f tablet 00:00: in the [place] 00 morning. [facility] pantoprazol 2022-0 Yes 40mg Take 40 mg [facility] 40 mg EC 9-15 by mouth ity o f tablet 00:00: in the [place] 00 morning. [facility] pantoprazol 2022-0 Yes 40mg Take 40 mg [facility] 40 mg EC 9-15 by mouth ity o f tablet 00:00: in the [place] 00 morning. [facility] pantoprazol 2022-0 Yes 40mg Take 40 mg [facility] 40 mg EC 9-15 by mouth ity o f tablet 00:00: in the [place] 00 morning. [facility] pantoprazol 2022-0 Yes 40mg Take 40 mg [facility] 40 mg EC 9-15 by mouth ity o f tablet 00:00: in the [place] 00 morning. [facility] pantoprazol 2022-0 Yes 40mg Take 40 mg [facility] 40 mg EC 9-15 by mouth ity o f tablet 00:00: in the [place] 00 morning. [facility] pantoprazol 2022-0 Yes 40mg Take 40 mg [facility] 40 mg EC 9-15 by mouth ity o f tablet 00:00: in the [place] 00 morning. [facility] pantoprazol 2022-0 Yes 40mg Take 40 mg [facility] 40 mg EC 9-15 by mouth ity o f tablet 00:00: in the [place] 00 morning. [facility] pantoprazol 2022-0 Yes 40mg Take 40 mg [facility] 40 mg EC 9-15 by mouth ity o f tablet 00:00: in the [place] 00 morning. [facility] pantoprazol 2022-0 Yes 40mg Take 40 mg [facility] 40 mg EC 9-15 by mouth ity o f tablet 00:00: in the [place] 00 morning. [facility] pantoprazol 2022-0 Yes 40mg Take 40 mg [facility] 40 mg EC 9-15 by mouth ity o f tablet 00:00: in the [place] 00 morning. [facility] pantoprazol 2022-0 Yes 40mg Take 40 mg [facility] 40 mg EC 9-15 by mouth ity o f tablet 00:00: in the [place] 00 morning. [facility] pantoprazol 2022-0 Yes 40mg Take 40 mg [facility] 40 mg EC 9-15 by mouth ity o f tablet 00:00: in the [place] 00 morning. [facility] pantoprazol 2022-0 Yes 40mg Take 40 mg [facility] 40 mg EC 9-15 by mouth ity o f tablet 00:00: in the [place] 00 morning. [facility] pantoprazol 2022-0 Yes 40mg Take 40 mg [facility] 40 mg EC 9-15 by mouth ity o f tablet 00:00: in the [place] 00 morning. [facility] pantoprazol 2022-0 Yes 40mg Take 40 mg [facility] 40 mg EC 9-15 by mouth ity o f tablet 00:00: in the [place] 00 morning. [facility] pantoprazol 2022-0 Yes 40mg Take 40 mg [facility] 40 mg EC 9-15 by mouth ity o f tablet 00:00: in the [place] 00 morning. [facility] pantoprazol 2022-0 Yes 40mg Take 40 mg [facility] 40 mg EC 9-15 by mouth ity o f tablet 00:00: in the [place] morning. [facility] pantoprazol 2022-0 Yes 40mg Take 40 mg [facility] 40 mg EC 9-15 by mouth ity o f tablet 00:00: in the [place] morning. [facility] pantoprazol 2-0 Yes 40mg Take 40 mg [facility] 40 mg EC 9-15 by mouth ity o f tablet 00:00: in the [place] morning. [facility] pantoprazol 2-0 Yes 40mg Take 40 mg [facility] 40 mg EC 9-15 by mouth ity o f tablet 00:00: in the [place] 00 morning. [facility] pantoprazol 2-0 Yes 40mg Take 40 mg [facility] 40 mg EC 9-15 by mouth ity o f tablet 00:00: in the [place] 00 morning. [facility] pantoprazol 2022-0 Yes 40mg Take 40 mg [facility] 40 mg EC 9-15 by mouth ity o f tablet 00:00: in the [place] morning. [facility] pantoprazol 2022-0 Yes 40mg Take 40 mg [facility] 40 mg EC 9-15 by mouth ity o f tablet 00:00: in the [place] morning. [facility] pantoprazol 2022-0 Yes 40mg Take 40 mg [facility] 40 mg EC 9-15 by mouth ity o f tablet 00:00: in the [place] 00 morning. [facility] pantoprazol 2022-0 Yes 40mg Take 40 mg [facility] 40 mg EC 9-15 by mouth ity o f tablet 00:00: in the [place] 00 morning. [facility] pantoprazol 2022-0 Yes 40mg Take 40 mg [facility] 40 mg EC 9-15 by mouth ity o f tablet 00:00: in the [place] 00 morning. [facility] pantoprazol 2022-0 Yes 40mg Take 40 mg [facility] 40 mg EC 9-15 by mouth ity o f tablet 00:00: in the [place] 00 morning. [facility] pantoprazol 2022-0 Yes 40mg Take 40 mg [facility] 40 mg EC 9-15 by mouth ity o f tablet 00:00: in the [place] 00 morning. [facility] pantoprazol 2022-0 Yes 40mg Take 40 mg [facility] 40 mg EC 9-15 by mouth ity o f tablet 00:00: in the [place] 00 morning. [facility] pantoprazol 2022-0 Yes 40mg Take 40 mg [facility] 40 mg EC 9-15 by mouth ity o f tablet 00:00: in the [place] 00 morning. [facility] pantoprazol 2022-0 Yes 40mg Take 40 mg [facility] 40 mg EC 9-15 by mouth ity o f tablet 00:00: in the [place] 00 morning. [facility] pantoprazol 2022-0 Yes 40mg Take 40 mg [facility] 40 mg EC 9-15 by mouth ity o f tablet 00:00: in the [place] 00 morning. [facility] pantoprazol 2022-0 Yes 40mg Take 40 mg [facility] 40 mg EC 9-15 by mouth ity o f tablet 00:00: in the [place] 00 morning. [facility] pantoprazol 2022-0 Yes 40mg Take 40 mg [facility] 40 mg EC 9-15 by mouth ity o f tablet 00:00: in the [place] 00 morning. [facility] pantoprazol 2022-0 Yes 40mg Take 40 mg [facility] 40 mg EC 9-15 by mouth ity o f tablet 00:00: in the [place] 00 morning. [facility] pantoprazol 2022-0 Yes 40mg Take 40 mg [facility] 40 mg EC 9-15 by mouth ity o f tablet 00:00: in the [place] 00 morning. [facility] pantoprazol 2022-0 Yes 40mg Take 40 mg [facility] 40 mg EC 9-15 by mouth ity o f tablet 00:00: in the [place] 00 morning. [facility] pantoprazol 2022-0 Yes 40mg Take 40 mg [facility] 40 mg EC 9-15 by mouth ity o f tablet 00:00: in the [place] 00 morning. [facility] pantoprazol 2022-0 Yes 40mg Take 40 mg [facility] 40 mg EC 9-15 by mouth ity o f tablet 00:00: in the [place] 00 morning. [facility] pantoprazol 2022-0 Yes 40mg Take 40 mg [facility] 40 mg EC 9-15 by mouth ity o f tablet 00:00: in the [place] 00 morning. [facility] pantoprazol 2022-0 Yes 40mg Take 40 mg [facility] 40 mg EC 9-15 by mouth ity o f tablet 00:00: in the [place] 00 morning. [facility] pantoprazol 2022-0 Yes 40mg Take 40 mg [facility] 40 mg EC 9-15 by mouth ity o f tablet 00:00: in the [place] morning. [facility] pantoprazol 2022-0 Yes 40mg Take 40 mg [facility] 40 mg EC 9-15 by mouth ity o f tablet 00:00: in the [place] morning. [facility] pantoprazol 2-0 Yes 40mg Take 40 mg [facility] 40 mg EC 9-15 by mouth ity o f tablet 00:00: in the [place] morning. [facility] pantoprazol 2-0 Yes 40mg Take 40 mg [facility] e 40 mg EC 9-15 by mouth ity o f tablet 00:00: in the [place] 00 morning. [facility] pantoprazol 2-0 Yes 40mg Take 40 mg [facility] 40 mg EC 9-15 by mouth [facility]y o f tablet 00:00: in the [place] 00 morning. [facility] pantoprazol 2022-0 Yes 40mg Take 40 mg [facility] 40 mg EC 9-15 by mouth ity o f tablet 00:00: in the [place] morning. [facility] pantoprazol 2022-0 Yes 40mg Take 40 mg [facility] 40 mg EC 9-15 by mouth ity o f tablet 00:00: in the [place] morning. [facility] pantoprazol 2022-0 Yes 40mg Take 40 mg [facility] 40 mg EC 9-15 by mouth ity o f tablet 00:00: in the [place] 00 morning. [facility] pantoprazol 2022-0 Yes 40mg Take 40 mg [facility] 40 mg EC 9-15 by mouth ity o f tablet 00:00: in the [place] 00 morning. [facility] pantoprazol 2022-0 Yes 40mg Take 40 mg [facility] 40 mg EC 9-15 by mouth ity o f tablet 00:00: in the [place] 00 morning. [facility] pantoprazol 2022-0 Yes 40mg Take 40 mg [facility] 40 mg EC 9-15 by mouth ity o f tablet 00:00: in the [place] 00 morning. [facility] pantoprazol 2022-0 Yes 40mg Take 40 mg [facility] 40 mg EC 9-15 by mouth ity o f tablet 00:00: in the [place] 00 morning. [facility] pantoprazol 2022-0 Yes 40mg Take 40 mg [facility] 40 mg EC 9-15 by mouth ity o f tablet 00:00: in the [place] 00 morning. [facility] pantoprazol 2022-0 Yes 40mg Take 40 mg [facility] 40 mg EC 9-15 by mouth ity o f tablet 00:00: in the [place] 00 morning. [facility] pantoprazol 2022-0 Yes 40mg Take 40 mg [facility] 40 mg EC 9-15 by mouth ity o f tablet 00:00: in the [place] 00 morning. [facility] pantoprazol 2022-0 Yes 40mg Take 40 mg [facility] 40 mg EC 9-15 by mouth ity o f tablet 00:00: in the [place] 00 morning. [facility] pantoprazol 2022-0 Yes 40mg Take 40 mg [facility] 40 mg EC 9-15 by mouth ity o f tablet 00:00: in the [place] 00 morning. [facility] pantoprazol 2022-0 Yes 40mg Take 40 mg [facility] 40 mg EC 9-15 by mouth ity o f tablet 00:00: in the [place] 00 morning. [facility] pantoprazol 2022-0 Yes 40mg Take 40 mg [facility] 40 mg EC 9-15 by mouth ity o f tablet 00:00: in the [place] 00 morning. [facility] pantoprazol 2022-0 Yes 40mg Take 40 mg [facility] 40 mg EC 9-15 by mouth ity o f tablet 00:00: in the [place] 00 morning. [facility] pantoprazol 2022-0 Yes 40mg Take 40 mg [facility] 40 mg EC 9-15 by mouth ity o f tablet 00:00: in the [place] 00 morning. [facility] pantoprazol 2022-0 Yes 40mg Take 40 mg [facility] 40 mg EC 9-15 by mouth ity o f tablet 00:00: in the [place] 00 morning. [facility] pantoprazol 2022-0 Yes 40mg Take 40 mg [facility] 40 mg EC 9-15 by mouth ity o f tablet 00:00: in the [place] 00 morning. [facility] pantoprazol 2022-0 Yes 40mg Take 40 mg [facility] 40 mg EC 9-15 by mouth ity o f tablet 00:00: in the [place] 00 morning. [facility] pantoprazol 2022-0 Yes 40mg Take 40 mg [facility] 40 mg EC 9-15 by mouth ity o f tablet 00:00: in the [place] 00 morning. [facility] pantoprazol 2022-0 Yes 40mg Take 40 mg [facility] 40 mg EC 9-15 by mouth ity o f tablet 00:00: in the [place] morning. [facility] pantoprazol 2022-0 Yes 40mg Take 40 mg [facility] 40 mg EC 9-15 by mouth ity o f tablet 00:00: in the [place] morning. [facility] pantoprazol 2-0 Yes 40mg Take 40 mg [facility] 40 mg EC 9-15 by mouth ity o f tablet 00:00: in the [place] morning. [facility] pantoprazol 2-0 Yes 40mg Take 40 mg [facility] 40 mg EC 9-15 by mouth ity o f tablet 00:00: in the [place] 00 morning. [facility] pantoprazol 2-0 Yes 40mg Take 40 mg [facility] 40 mg EC 9-15 by mouth ity o f tablet 00:00: in the [place] 00 morning. [facility] pantoprazol 2022-0 Yes 40mg Take 40 mg [facility] 40 mg EC 9-15 by mouth ity o f tablet 00:00: in the [place] morning. [facility] pantoprazol 2022-0 Yes 40mg Take 40 mg [facility] 40 mg EC 9-15 by mouth ity o f tablet 00:00: in the [place] morning. [facility] pantoprazol 2022-0 Yes 40mg Take 40 mg [facility] 40 mg EC 9-15 by mouth ity o f tablet 00:00: in the [place] 00 morning. [facility] pantoprazol 2022-0 Yes 40mg Take 40 mg [facility] 40 mg EC 9-15 by mouth ity o f tablet 00:00: in the [place] 00 morning. [facility] pantoprazol 2022-0 Yes 40mg Take 40 mg [facility] 40 mg EC 9-15 by mouth ity o f tablet 00:00: in the [place] 00 morning. [facility] pantoprazol 2022-0 Yes 40mg Take 40 mg [facility] 40 mg EC 9-15 by mouth ity o f tablet 00:00: in the [place] 00 morning. [facility] pantoprazol 2022-0 Yes 40mg Take 40 mg [facility] 40 mg EC 9-15 by mouth ity o f tablet 00:00: in the [place] 00 morning. [facility] pantoprazol 2022-0 Yes 40mg Take 40 mg [facility] 40 mg EC 9-15 by mouth ity o f tablet 00:00: in the [place] 00 morning. [facility] pantoprazol 2022-0 Yes 40mg Take 40 mg [facility] 40 mg EC 9-15 by mouth ity o f tablet 00:00: in the [place] 00 morning. [facility] pantoprazol 2022-0 Yes 40mg Take 40 mg [facility] 40 mg EC 9-15 by mouth ity o f tablet 00:00: in the [place] 00 morning. [facility] pantoprazol 2022-0 Yes 40mg Take 40 mg [facility] 40 mg EC 9-15 by mouth ity o f tablet 00:00: in the [place] 00 morning. [facility] pantoprazol 2022-0 Yes 40mg Take 40 mg [facility] 40 mg EC 9-15 by mouth ity o f tablet 00:00: in the [place] 00 morning. [facility] pantoprazol 2022-0 Yes 40mg Take 40 mg [facility] 40 mg EC 9-15 by mouth ity o f tablet 00:00: in the [place] 00 morning. [facility] pantoprazol 2022-0 Yes 40mg Take 40 mg [facility] 40 mg EC 9-15 by mouth ity o f tablet 00:00: in the [place] 00 morning. [facility] pantoprazol 2022-0 Yes 40mg Take 40 mg [facility] 40 mg EC 9-15 by mouth ity o f tablet 00:00: in the [place] 00 morning. [facility] pantoprazol 2022-0 Yes 40mg Take 40 mg [facility] 40 mg EC 9-15 by mouth ity o f tablet 00:00: in the [place] 00 morning. [facility] pantoprazol 2022-0 Yes 40mg Take 40 mg [facility] 40 mg EC 9-15 by mouth ity o f tablet 00:00: in the [place] 00 morning. [facility] pantoprazol 2022-0 Yes 40mg Take 40 mg [facility] 40 mg EC 9-15 by mouth ity o f tablet 00:00: in the [place] 00 morning. [facility] pantoprazol 2022-0 Yes 40mg Take 40 mg [facility] 40 mg EC 9-15 by mouth ity o f tablet 00:00: in the [place] 00 morning. [facility] pantoprazol 2022-0 Yes 40mg Take 40 mg [facility] 40 mg EC 9-15 by mouth ity o f tablet 00:00: in the [place] 00 morning. [facility] pantoprazol 2022-0 Yes 40mg Take 40 mg [facility] 40 mg EC 9-15 by mouth ity o f tablet 00:00: in the [place] morning. [facility] pantoprazol 2022-0 Yes 40mg Take 40 mg [facility] 40 mg EC 9-15 by mouth ity o f tablet 00:00: in the [place] morning. [facility] pantoprazol 2-0 Yes 40mg Take 40 mg [facility] 40 mg EC 9-15 by mouth ity o f tablet 00:00: in the [place] morning. [facility] pantoprazol 2-0 Yes 40mg Take 40 mg [facility] 40 mg EC 9-15 by mouth ity o f tablet 00:00: in the [place] 00 morning. [facility] pantoprazol 2-0 Yes 40mg Take 40 mg [facility] 40 mg EC 9-15 by mouth ity o f tablet 00:00: in the [place] 00 morning. [facility] pantoprazol 2022-0 Yes 40mg Take 40 mg [facility] 40 mg EC 9-15 by mouth ity o f tablet 00:00: in the [place] morning. [facility] pantoprazol 2022-0 Yes 40mg Take 40 mg [facility] 40 mg EC 9-15 by mouth ity o f tablet 00:00: in the [place] morning. [facility] pantoprazol 2022-0 Yes 40mg Take 40 mg [facility] 40 mg EC 9-15 by mouth ity o f tablet 00:00: in the [place] 00 morning. [facility] pantoprazol 2022-0 Yes 40mg Take 40 mg [facility] 40 mg EC 9-15 by mouth ity o f tablet 00:00: in the [place] 00 morning. [facility] pantoprazol 2022-0 Yes 40mg Take 40 mg [facility] 40 mg EC 9-15 by mouth ity o f tablet 00:00: in the [place] 00 morning. [facility] pantoprazol 2022-0 Yes 40mg Take 40 mg [facility] 40 mg EC 9-15 by mouth ity o f tablet 00:00: in the [place] 00 morning. [facility] pantoprazol 2022-0 Yes 40mg Take 40 mg [facility] 40 mg EC 9-15 by mouth ity o f tablet 00:00: in the [place] 00 morning. [facility] pantoprazol 2022-0 Yes 40mg Take 40 mg [facility] 40 mg EC 9-15 by mouth ity o f tablet 00:00: in the [place] 00 morning. [facility] pantoprazol 2022-0 Yes 40mg Take 40 mg [facility] 40 mg EC 9-15 by mouth ity o f tablet 00:00: in the [place] 00 morning. [facility] pantoprazol 2022-0 Yes 40mg Take 40 mg [facility] 40 mg EC 9-15 by mouth ity o f tablet 00:00: in the [place] 00 morning. [facility] pantoprazol 2022-0 Yes 40mg Take 40 mg [facility] 40 mg EC 9-15 by mouth ity o f tablet 00:00: in the [place] 00 morning. [facility] pantoprazol 2022-0 Yes 40mg Take 40 mg [facility] 40 mg EC 9-15 by mouth ity o f tablet 00:00: in the [place] 00 morning. [facility] pantoprazol 2022-0 Yes 40mg Take 40 mg [facility] 40 mg EC 9-15 by mouth ity o f tablet 00:00: in the [place] 00 morning. [facility] pantoprazol 2022-0 Yes 40mg Take 40 mg [facility] 40 mg EC 9-15 by mouth ity o f tablet 00:00: in the [place] 00 morning. [facility] pantoprazol 2022-0 Yes 40mg Take 40 mg [facility] 40 mg EC 9-15 by mouth ity o f tablet 00:00: in the [place] 00 morning. [facility] pantoprazol 2022-0 Yes 40mg Take 40 mg [facility] 40 mg EC 9-15 by mouth ity o f tablet 00:00: in the [place] 00 morning. [facility] pantoprazol 2022-0 Yes 40mg Take 40 mg [facility] 40 mg EC 9-15 by mouth ity o f tablet 00:00: in the [place] 00 morning. [facility] pantoprazol 2022-0 Yes 40mg Take 40 mg [facility] 40 mg EC 9-15 by mouth ity o f tablet 00:00: in the [place] 00 morning. [facility] pantoprazol 2-0 Yes 40mg Take 40 mg [facility] 40 mg EC 9-15 by mouth ity o f tablet 00:00: in the [place] 00 morning. [facility] pantoprazol 2022-0 Yes 40mg Take 40 mg [facility] 40 mg EC 9-15 by mouth ity o f tablet 00:00: in the [place] 00 morning. [facility] pantoprazol 2021-0 Yes 40mg Take 40 mg [facility] 40 mg EC 9-15 by mouth ity o f tablet 00:00: in the [place] 00 morning. [facility] pantoprazol 2021-0 Yes 40mg Take 40 mg [facility] 40 mg EC 9-15 by mouth ity o f tablet 00:00: in the [place] 00 morning. [facility] pantoprazol 2021-0 Yes 40mg Take 40 mg [facility] 40 mg EC 9-15 by mouth ity o f tablet 00:00: in the [place] morning. [facility] pantoprazol 2021-0 Yes 40mg Take 40 mg [facility] 40 mg EC 9-15 by mouth ity o f tablet 00:00: in the [place] 00 morning. [facility] pantoprazol 2021-0 Yes 40mg Take 40 mg [facility] 40 mg EC 9-15 by mouth ity o f tablet 00:00: in the [place] 00 morning. [facility] buPROPion 2021-0 2021- No 150mg Take 150 Un ean XL 150 mg 12-09 11-15 mg by ity of 24 hr 00:00: 00:00 mouth in [place] tablet 00 :00 the Medical morning. Branch buPROPion 2021-0 2021- No 150mg Take 150 [facility] XL 150 mg 12-09 11-15 mg by ity of 24 hr 00:00: 00:00 mouth in [place] tablet 00 :00 the Medical morning. Branch apixaban 2020-0 Yes 5mg Q.5D Take 5 mg [facility] (ELIQUIS) 5 6-[address] mg tablet 13:38: (two) [facility]osp[facility] 47 times a l day. tofacitinib 2020-0 Yes 11mg QD Take 11 mg [facility] 11 mg 6-[address] tablet 13:38: daily. [facility]ospita extended 47 l release 24 hr sertraline 2020-0 Yes 50mg QD Take 50 mg [facility] (ZOLOFT) 50 6-[address] MG tablet 13:38: every [facility]ospita 47 morning. l buPROPion 2020-0 Yes 150mg QD Take 150 [facility] XL 6-[address] (WELLBUTRIN 13:38: mouth Hospi ta XL) 150 MG 47 every l 24 hr morning. tablet albuterol 2020-0 Yes 2.5mg Q4H Take 2.5 [facility] (ACCUNEB) 6-[address] 2.5 mg /3 13:38: nebulizati [facility] mL (0.083 47 on every 4 l %) (four) nebulizer hours as solution needed for wheezing. albuterol 2020-0 Yes 2{puff} Inhale 2 [facility] (PROAIR 6-[address] HFA) 90 13:38: needed for Hosp bi mcg/actuati 47 wheezing. l on inhaler metoprolol 2020-0 Yes 100mg Q.5D Take 100 [facility] succinate 6-[address] XL 13:38: mouth 2 Hospita (TOPROL-XL) 47 (two) l 100 mg 24 times a hr tablet day. apixaban 2020-0 Yes 5mg Q.5D Take 5 mg [facility] (ELIQUIS) 5 6-[address] mg tablet 13:38: (two) Hospita 47 times a l day. tofacitinib 2020-0 Yes 11mg QD Take 11 mg [facility] 11 mg 6-[address] tablet 13:38: daily. [facility]ospita extended 47 l release 24 hr sertraline 2020-0 Yes 50mg QD Take 50 mg [facility] (ZOLOFT) 50 6-[address] MG tablet 13:38: every [facility]osp[facility] 47 morning. l buPROPion 1-0 Yes 150mg QD Take 150 [facility] XL 6-[address] (WELLBUTRIN 13:38: mouth Hospi ta XL) 150 MG 47 every l 24 hr morning. tablet albuterol 2020-0 Yes 2.5mg Q4H Take 2.5 [facility] (ACCUNEB) 6-[address] 2.5 mg /3 13:38: nebulizati [facility] mL (0.083 47 on every 4 l %) (four) nebulizer hours as solution needed for wheezing. albuterol 0 Yes 2{puff} Inhale 2 [facility] (PROAIR 6-[address] HFA) 90 13:38: needed for Hosp bi mcg/actuati 47 wheezing. l on inhaler metoprolol 0 Yes 100mg Q.5D Take 100 [facility] succinate 6-[address] XL 13:38: mouth 2 [facility]ospita (TOPROL-XL) 47 (two) l 100 mg 24 times a hr tablet day. apixaban 0 Yes 5mg Q.5D Take 5 mg [facility] (ELIQUIS) 5 6-[address] mg tablet 13:38: (two) Hospita 47 times a l day. tofacitinib 0 Yes 11mg QD Take 11 mg [facility] 11 mg 6-[address] tablet 13:38: daily. [facility]ospita extended 47 l release 24 hr sertraline 0 Yes 50mg QD Take 50 mg [facility] (ZOLOFT) 50 6-[address] MG tablet 13:38: every [facility]ospita 47 morning. l buPROPion 0 Yes 150mg QD Take 150 [facility] XL 6-[address] (WELLBUTRIN 13:38: mouth Hospi ta XL) 150 MG 47 every l 24 hr morning. tablet albuterol 0 Yes 2.5mg Q4H Take 2.5 [facility] (ACCUNEB) 6-[address] 2.5 mg /3 13:38: nebulizati [facility] mL (0.083 47 on every 4 l %) (four) nebulizer hours as solution needed for wheezing. albuterol 0 Yes 2{puff} Inhale 2 [facility] (PROAIR 6-[address] HFA) 90 13:38: needed for Hosp bi mcg/actuati 47 wheezing. l on inhaler metoprolol 2020-0 Yes 100mg Q.5D Take 100 [facility] succinate 6-[address] XL 13:38: mouth 2 Hospita (TOPROL-XL) 47 (two) l 100 mg 24 times a hr tablet day. apixaban Yes 5mg Q.5D Take 5 mg [...] a hr tablet day. traMADoL 2020- [place] [id number] 50mg Q6H Take 50 mg M [facility]i [...] 12 hours or as directed by physician. lidocaine [address] 1 [facility] % adhesive 6-[address] patch,medic 00:00: the skin [facility] spita ated 00 daily. l Remove and discard patch within 12 hours or as directed by physician. lidocaine 4 2020- Yes Place 1 [facility] % adhesive 6-[address] patch,medic 00:00: the skin [facility] ated 00 daily. l Remove and discard patch within 12 hours or as directed by physician. lidocaine 4 2020- Yes Place 1 [facility] % adhesive 6-[address] patch,medic 00:00: the skin [facility] ated 00 daily. l Remove and discard patch within 12 hours or as directed by physician. polyethylen 2020- No 34g Q24H Take 34 g [facility] e glycol 09-[address] (MIRALAX) 00:00: 04:59 daily as Hos samy 17 gram 00 :00 needed for l packet constipati on for up to 10 days. psyllium 2020- No 1{packe Q.[id number] Take 1 [facility] husk 09-22 t} [id number] packet by st (METAMUCIL) 00:00: 04:59 3D [...] (NEURONTIN) 09-[address] 300 mg 00:00: 04:59 (300 mg Hospita capsule 00 :00 total) by l mouth 2 (two) times a day for 2 days, THEN 1 capsule (300 mg total) nightly for 2 days. methocarbam 2020- No 500mg Q.25D Take 1 M [facility]i oL 09-[address] (ROBAXIN) 00:00: 04:59 (500 mg Hosp bi 500 MG 00 :00 total) by l tablet mouth 4 (four) times a day as needed for muscle spasms for up to 4 days. HYDROcodone 2020- No [id number] 1{tbl} Q8H Take 1 [facility] -acetaminop 09-22 [...] for 2 days. metroNIDAZO 2020- No 500mg Q.[id number] Take 1 [facility] LE (FlagyL) 09-[id number] 500 MG 00:00: 00:00 3D (500 mg Hospita tablet 00 :00 total) by l mouth 3 (three) times a day for 2 days. fluticasone 2020- No QD Inhale [facility] /umeclidin/ 09-[address] vilanter 08:50: 00:00 morning. Hosp [...] Q.5D Take 40 mg [facility] (LASIX) 40 4-27 04-[address] mg tablet 13:41: 00:00 (two) Hospit a 15 :00 times a l day. Can take up to 3 times [place] [id number] 50mg Q6H Take 50 mg [facility] (ULTRAM) 50 07-[address] mg tablet 13:41: 00:00 every 6 Hosp bi 15 :00 (six) l hours as needed for moderate pain .acute pain. furosemide 2020- No 40mg QD Take 1 [facility] (LASIX) 40 07-27 tablet (40 st mg tablet 00:00: 04:59 mg total) Ho spita 00 :00 by mouth l daily for 30 days. Can take up to 3 times a day if needed potassium 2020- No 20meq QD Take 2 [facility] chloride 07-[address] (MICRO-K) 00:00: 04:59 (20 mEq Hosp bi 10 MEQ CR 00 :00 total) by l capsule mouth daily for 30 days. traMADoL 2020- [place] [id number] 50mg Q6H Take 1 Metho di (ULTRAM) 50 07-2703 tablet (50 s t mg tablet 00:00: 04:59 mg total) Ho spita 00 :00 by mouth l every 6 (six) hours as needed for moderate pain for up to 5 days .acute pain. nitrofurant 2020- No 100mg Q.5D Take 1 Me thodi oin, 07-[address] macrocrysta 00:00: 00:00 (100 mg Ho spita l-monohydra 00 :00 total) by l te, mouth 2 (Macrobid) (two) 100 MG times a capsule day for 5 days. meloxicam 2020- No 15mg QD Take 15 mg [facility] (MOBIC) 15 07-[address] mg tablet 13:53: 00:00 daily. Hospi ta 38 :00 l Advair Yes [facility] Diskus 4-14 st 250-50 00:00: Hospita mcg/dose 00 l DISKUS Advair Yes [facility] Diskus 4-14 st 250-50 00:00: Hospita mcg/dose 00 l DISKUS Advair 2020-0 Yes [facility] Diskus 4-14 st 250-50 00:00: Hospita mcg/dose 00 l DISKUS Advair 2020-0 Yes [facility] Diskus 4-14 st 250-50 00:00: Hospita mcg/dose 00 l DISKUS sotaloL 120 2020-0 Yes [id number] 120mg Take 1 [facility] mg tablet 3-22 tablet by ity o f 00:00: mouth [place] 00 every 12 Medical (twelve) Branch hours. sotaloL 120 2020-0 Yes [id number] 120mg Take 1 [facility] mg tablet 3-22 tablet by ity o f 00:00: mouth [place] 00 every 12 Medical (twelve) Branch hours. sotaloL 120 2020-0 Yes [id number] 120mg Take 1 [facility] mg tablet 3-22 tablet by ity o f 00:00: mouth [place] 00 every 12 Medical (twelve) Branch hours. sotaloL 120 2020-0 Yes [id number] 120mg Take 1 [facility] mg tablet 3-22 tablet by ity o f 00:00: mouth [place] 00 every 12 Medical (twelve) Branch hours. sotaloL 120 2020-0 Yes [id number] 120mg Take 1 [facility] mg tablet 3-22 tablet by ity o f 00:00: mouth [place] 00 every 12 Medical (twelve) Branch hours. sotaloL 120 2020-0 Yes [id number] 120mg Take 1 [facility] mg tablet 3-22 tablet by ity o f 00:00: mouth [place] 00 every 12 Medical (twelve) Branch hours. sotaloL 120 2020-0 Yes [id number] 120mg Take 1 [facility] mg tablet 3-22 tablet by ity o f 00:00: mouth [place] 00 every 12 Medical (twelve) Branch hours. sotaloL 120 2020-0 Yes [id number] 120mg Take 1 [facility] mg tablet 3-22 tablet by ity o f 00:00: mouth [place] 00 every 12 Medical (twelve) Branch hours. sotaloL 120 2020-0 Yes [id number] 120mg Take 1 [facility] mg tablet 3-22 tablet by ity o f 00:00: mouth [place] 00 every 12 Medical (twelve) Branch hours. sotaloL 120 2020-0 Yes [id number] 120mg Take 1 [facility] mg tablet 3-22 tablet by ity o f 00:00: mouth [place] 00 every 12 Medical (twelve) Branch hours. sotaloL 120 2020-0 Yes [id number] 120mg Take 1 [facility] mg tablet 3-22 tablet by ity o f 00:00: mouth [place] 00 every 12 Medical (twelve) Branch hours. sotaloL 120 2020-0 Yes [id number] 120mg Take 1 [facility] mg tablet 3-22 tablet by ity o f 00:00: mouth [place] 00 every 12 Medical (twelve) Branch hours. sotaloL 120 2020-0 Yes [id number] 120mg Take 1 [facility] mg tablet 3-22 tablet by ity o f 00:00: mouth [place] 00 every 12 Medical (twelve) Branch hours. sotaloL 120 2020-0 Yes [id number] 120mg Take 1 [facility] mg tablet 3-22 tablet by ity o f 00:00: mouth [place] 00 every 12 Medical (twelve) Branch hours. sotaloL 120 2020-0 Yes [id number] 120mg Take 1 [facility] mg tablet 3-22 tablet by ity o f 00:00: mouth [place] 00 every 12 Medical (twelve) Branch hours. sotaloL 120 2020-0 Yes [id number] 120mg Take 1 [facility] mg tablet 3-22 tablet by ity o f 00:00: mouth [place] 00 every 12 Medical (twelve) Branch hours. sotaloL 120 2020-0 Yes [id number] 120mg Take 1 [facility] mg tablet 3-22 tablet by ity o f 00:00: mouth [place] 00 every 12 Medical (twelve) Branch hours. sotaloL 120 2020-0 Yes [id number] 120mg Take 1 [facility] mg tablet 3-22 tablet by ity o f 00:00: mouth [place] 00 every 12 Medical (twelve) Branch hours. sotaloL 120 2020-0 Yes [id number] 120mg Take 1 [facility] mg tablet 3-22 tablet by ity o f 00:00: mouth [place] 00 every 12 Medical (twelve) Branch hours. sotaloL 120 2020-0 Yes [id number] 120mg Take 1 [facility] mg tablet 3-22 tablet by ity o f 00:00: mouth [place] 00 every 12 Medical (twelve) Branch hours. sotaloL 120 2020-0 Yes [id number] 120mg Take 1 [facility] mg tablet 3-22 tablet by ity o f 00:00: mouth [place] 00 every 12 Medical (twelve) Branch hours. sotaloL 120 2020-0 Yes [id number] 120mg Take 1 [facility] mg tablet 3-22 tablet by ity o f 00:00: mouth [place] 00 every 12 Medical (twelve) Branch hours. sotaloL 120 2020-0 Yes [id number] 120mg Take 1 [facility] mg tablet 3-22 tablet by ity o f 00:00: mouth [place] 00 every 12 Medical (twelve) Branch hours. sotaloL 120 2020-0 Yes [id number] 120mg Take 1 [facility] mg tablet 3-22 tablet by ity o f 00:00: mouth [place] 00 every 12 Medical (twelve) Branch hours. sotaloL 120 2020-0 Yes [id number] 120mg Take 1 [facility] mg tablet 3-22 tablet by ity o f 00:00: mouth [place] 00 every 12 Medical (twelve) Branch hours. sotaloL 120 2020-0 Yes [id number] 120mg Take 1 [facility] mg tablet 3-22 tablet by ity o f 00:00: mouth [place] 00 every 12 Medical (twelve) Branch hours. sotaloL 120 2020-0 Yes [id number] 120mg Take 1 [facility] mg tablet 3-22 tablet by ity o f 00:00: mouth [place] 00 every 12 Medical (twelve) Branch hours. sotaloL 120 2020-0 Yes [id number] 120mg Take 1 [facility] mg tablet 3-22 tablet by ity o f 00:00: mouth [place] 00 every 12 Medical (twelve) Branch hours. sotaloL 120 2020-0 Yes [id number] 120mg Take 1 [facility] mg tablet 3-22 tablet by ity o f 00:00: mouth [place] 00 every 12 Medical (twelve) Branch hours. sotaloL 120 2020-0 Yes [id number] 120mg Take 1 [facility] mg tablet 3-22 tablet by ity o f 00:00: mouth [place] 00 every 12 Medical (twelve) Branch hours. sotaloL 120 2020-0 Yes [id number] 120mg Take 1 [facility] mg tablet 3-22 tablet by ity o f 00:00: mouth [place] 00 every 12 Medical (twelve) Branch hours. sotaloL 120 2020-0 Yes [id number] 120mg Take 1 [facility] mg tablet 3-22 tablet by ity o f 00:00: mouth [place] 00 every 12 Medical (twelve) Branch hours. sotaloL 120 2020-0 Yes [id number] 120mg Take 1 [facility] mg tablet 3-22 tablet by ity o f 00:00: mouth [place] 00 every 12 Medical (twelve) Branch hours. sotaloL 120 2020-0 Yes [id number] 120mg Take 1 [facility] mg tablet 3-22 tablet by ity o f 00:00: mouth [place] 00 every 12 Medical (twelve) Branch hours. sotaloL 120 2020-0 Yes [id number] 120mg Take 1 [facility] mg tablet 3-22 tablet by ity o f 00:00: mouth [place] 00 every 12 Medical (twelve) Branch hours. sotaloL 120 2020-0 Yes [id number] 120mg Take 1 [facility] mg tablet 3-22 tablet by ity o f 00:00: mouth [place] 00 every 12 Medical (twelve) Branch hours. sotaloL 120 2020-0 3- No [id number] 120mg Take 1 [facility] mg tablet 3-22 02-05 tablet by ity of 00:00: 00:00 mouth [place] 00 :00 every 12 Medical (twelve) Branch hours. sotaloL 120 2020-0 3- No [id number] 120mg Take 1 [facility] mg tablet 3-22 02-05 tablet by ity of 00:00: 00:00 mouth [place] 00 :00 every 12 Medical (twelve) Branch hours. sotaloL 120 2020-0 3- No [id number] 120mg Take 1 [facility] mg tablet 3-22 02-05 tablet by ity of 00:00: 00:00 mouth [place] 00 :00 every 12 Medical (twelve) Branch hours. sotaloL 120 2020-0 3- No [id number] 120mg Take 1 [facility] mg tablet 3-22 02-05 tablet by ity of 00:00: 00:00 mouth [place] 00 :00 every 12 Medical (twelve) Branch hours. sotaloL 120 2020-0 3- No [id number] 120mg Take 1 [facility] mg tablet 3-22 02-05 tablet by ity of 00:00: 00:00 mouth [place] 00 :00 every 12 Medical (twelve) Branch hours. tofacitinib 2019-04 Yes 11mg Take [address] [facility] (Xeljanz 2-02 by [facility]) 11 mg 11:12: [facility] Tb24 37 Center albuterol 2019-04 Yes 2.5mg Inhale 2.[address] (PROVENTIL) 2-02 mg [facility] /3 11:12: mouth via Med ical mL (0.083 37 inhaler. Center %) nebulizer solution tofacitinib 2019-04 Yes 11mg Take [address] [facility] (Xeljanz 2-02 by [facility]. [facility]) 11 mg 11:12: [address] albuterol 2019-04 Yes 2.5mg Inhale 2.[address] (PROVENTIL) 2-02 [facility] /3 11:12: mouth via Med ical mL (0.083 37 inhaler. Center %) nebulizer solution tofacitinib 2019-04 Yes 11mg Take [address] [facility] (Xeljanz 2-02 by mouth. [facility] 11 mg 11:12: [address] albuterol 2019-04 Yes 2.5mg Inhale 2.[address] (PROVENTIL) 2-02 mg by [facility] /3 11:12: mouth via Med ical mL (0.083 37 inhaler. Center %) nebulizer solution tofacitinib 2019-04 Yes 11mg Take [address] [facility] (Xeljanz 2-02 by mouth. [facility]) 11 mg 11:12: [address] albuterol 2019-04 Yes 2.5mg Inhale 2.[address] (PROVENTIL) 2-02 mg by [facility] mg /3 11:12: mouth via Med ical mL (0.083 37 inhaler. Center %) nebulizer solution albuterol 2019-[address] [facility] HFA 2-01 [facility] (VENTOLIN 00:00: [facility] HFA) 90 00 Center mcg/actuati on inhaler albuterol 2019-[address] [facility] HFA 2-01 [facility] (VENTOLIN 00:00: [facility] HFA) 90 00 Center mcg/actuati on inhaler albuterol 2019-[address] [facility] HFA 2-01 [facility] (VENTOLIN 00:00: Medical HFA) 90 00 Center mcg/actuati on inhaler albuterol 2019-[address] [facility] HFA 2-01 [facility] (VENTOLIN 00:00: Medical HFA) 90 00 Center mcg/actuati on inhaler sotaloL 2019-04 Yes 120mg Take [facility] 1-09 [facility] 120 MG 00:00: mouth Medical tablet 00 every 12 Center (twelve) hours. sotaloL 2019-04 Yes 120mg Take [facility] (B[facility] 1-09 [facility] 120 MG 00:00: mouth Medical tablet 00 every 12 Center (twelve) hours. sotaloL 2019-04 Yes 120mg Take [facility] (B[facility]) 1-09 mg [facility] 120 MG 00:00: mouth Medical tablet 00 every 12 Center (twelve) hours. sotaloL 2019-04 Yes 120mg Take [facility] (BET[facility]) 1-09 mg [facility] 120 MG 00:00: mouth Medical tablet 00 every 12 Center (twelve) hours. digoxin 2019-04 Yes 125ug QD Take 125 [facility] (LANOXIN[facility] 1-04 mcg [facility] 0.125 MG 00:00: mouth Medical tablet 00 daily. [facility] digoxin 2019-04 Yes 125ug QD Take 125 [facility] (LANOXIN[facility] 1-04 mcg [facility] 0.125 MG 00:00: mouth Medical tablet 00 daily. [facility] digoxin 2019-04 Yes 125ug QD Take 125 [facility] (LANOXIN) 1-04 [facility]cg [facility] 0.125 MG 00:00: mouth Medical tablet 00 daily. [facility] digoxin 2019-04 Yes 125ug QD Take [facility] (LANOXIN[facility] 1-04 [facility]cg [facility] 0.125 MG 00:00: mouth Medical tablet 00 daily. [facility] traMADoL 2019-04 Yes 50mg Take [address] [facility] (ULTRAM) 50 0-30 by mouth [facility] mg tablet 00:00: every 8 Medic al 00 (eight) Center hours as needed. traMADoL 2019-04 Yes 50mg Take [address] [facility] (ULTRAM) 50 0-30 by mouth [facility] mg tablet 00:00: every 8 Medic al 00 (eight) Center hours as needed. traMADoL 2019-04 Yes 50mg Take [address] [facility] (ULTRAM) 50 0-30 by mouth [facility] mg tablet 00:00: every 8 Medic al 00 (eight) Center hours as needed. traMADoL 2019-04 Yes 50mg Take [address] [facility] (ULTRAM) 50 0-30 by mouth [facility] mg tablet 00:00: every 8 Medic al 00 (eight) Center hours as needed. sertraline 2019-[address] [facility] (ZOLOFT) 50 0-22 [facility] tablet 00:00: Medical 00 [facility] sertraline 2019-[address] [facility] (ZOLOFT) 50 0-22 [facility] tablet 00:00: [facility] 00 [facility] sertraline 2019-[address] [facility] (ZOLOFT) 50 0-22 [facility] tablet 00:00: [facility] 00 [facility] sertraline 2019-[address] [facility] (ZOLOFT) 50 0-22 [facility] tablet 00:00: [facility] 00 [place] Eliquis 5 2019-04 Yes 5mg Q.5D Take [address] [facility] MG tablet 0-17 by mouth 2 [facility] 00:00: (two) Medical 00 times Center daily. Eliquis 5 2019-04 Yes 5mg Q.5D Take [address] [facility] MG tablet 0-17 by mouth 2 [facility] 00:00: (two) Medical 00 times Center daily. Eliquis 5 2019-04 Yes 5mg Q.5D Take [address] [facility] MG tablet 0-17 by mouth 2 [facility] 00:00: (two) Medical 00 times Center daily. Eliquis 5 2019-04 Yes 5mg Q.5D Take [address] [facility] MG tablet 0-17 by mouth 2 [facility] 00:00: (two) Medical 00 times Center daily. buPROPion 2019-0 Yes TAKE [address] [facility] (WELLBUTRIN 9-24 TABLET BY Dee es XL) 150 MG 00:00: MOUTH ONCE M edical 24 hr 00 DAILY IN Center tablet THE MORNING FOR 90 DAYS buPROPion 2019-0 Yes TAKE [address] [facility] (WELLBUTRIN 9-24 TABLET BY Dee [facility] XL) 150 MG 00:00: MOUTH ONCE M edical 24 hr 00 DAILY IN Center tablet THE MORNING FOR 90 DAYS buPROPion 2019-0 Yes TAKE [address] [facility] (WELLBUTRIN 9-24 TABLET BY Dee [facility] XL) 150 MG 00:00: MOUTH ONCE M edical 24 hr 00 DAILY IN Center tablet THE MORNING FOR 90 DAYS buPROPion 2019-0 Yes TAKE [address] [facility] (WELLBUTRIN 9-24 TABLET BY Dee [facility] XL) 150 MG 00:00: MOUTH ONCE M edical 24 hr 00 DAILY IN Center tablet THE MORNING FOR 90 DAYS digoxin 125 2020-0 Yes [id number] 125ug Take 1 [facility] mcg (0.125 5-06 tablet by ity of mg) tablet 00:00: mouth [place] 00 daily. [facility] digoxin 125 2020-0 Yes [id number] 125ug Take 1 [facility] mcg (0.125 5-06 tablet by ity of mg) tablet 00:00: mouth [place] 00 daily. [facility] Branch digoxin 125 2020-0 Yes [id number] 125ug Take 1 [facility] mcg (0.125 5-06 tablet by ity of mg) tablet 00:00: mouth [place] 00 daily. Medical Branch digoxin 125 2020-0 Yes [id number] 125ug Take 1 [facility] mcg (0.125 5-06 tablet by ity of mg) tablet 00:00: mouth [place] 00 daily. [facility] Branch digoxin 125 2020-0 Yes [id number] 125ug Take 1 [facility] mcg (0.125 5-06 tablet by ity of mg) tablet 00:00: mouth [place] 00 daily. Medical Branch digoxin 125 2020-0 Yes [id number] 125ug Take 1 [facility] mcg (0.125 5-06 tablet by ity of mg) tablet 00:00: mouth [place] 00 daily. [facility] Branch digoxin 125 2020-0 Yes [id number] 125ug Take 1 [facility] mcg (0.125 5-06 tablet by ity of mg) tablet 00:00: mouth [place] 00 daily. [facility] Branch digoxin 125 2020-0 Yes [id number] 125ug Take 1 [facility] mcg (0.125 5-06 tablet by ity of mg) tablet 00:00: mouth [place] 00 daily. [facility] Branch digoxin 125 2020-0 Yes [id number] 125ug Take 1 [facility] mcg (0.125 5-06 tablet by ity of mg) tablet 00:00: mouth [place] 00 daily. [facility] Branch digoxin 125 2020-0 Yes [id number] 125ug Take 1 [facility] mcg (0.125 5-06 tablet by ity of mg) tablet 00:00: mouth [place] 00 daily. [facility] Branch digoxin 125 2020-0 Yes [id number] 125ug Take 1 [facility] mcg (0.125 5-06 tablet by ity of mg) tablet 00:00: mouth [place] 00 daily. [facility] Branch digoxin 125 2020-0 Yes [id number] 125ug Take 1 [facility] mcg (0.125 5-06 tablet by ity of mg) tablet 00:00: mouth [place] 00 daily. Medical Branch digoxin 125 2020-0 Yes [id number] 125ug Take 1 [facility] mcg (0.125 5-06 tablet by ity of mg) tablet 00:00: mouth [place] 00 daily. [facility] Branch digoxin 125 2020-0 Yes [id number] 125ug Take 1 [facility] mcg (0.125 5-06 tablet by ity of mg) tablet 00:00: mouth [place] 00 daily. Medical Branch digoxin 125 2020-0 Yes [id number] 125ug Take 1 [facility] mcg (0.125 5-06 tablet by ity of mg) tablet 00:00: mouth [place] 00 daily. Medical Branch digoxin 125 2020-0 Yes [id number] 125ug Take 1 [facility] mcg (0.125 5-06 tablet by ity of mg) tablet 00:00: mouth [place] 00 daily. Medical Branch digoxin 125 2020-0 Yes [id number] 125ug Take 1 [facility] mcg (0.125 5-06 tablet by ity of mg) tablet 00:00: mouth [place] 00 daily. Medical Branch digoxin 125 2020-0 Yes [id number] 125ug Take 1 [facility] mcg (0.125 5-06 tablet by ity of mg) tablet 00:00: mouth [place] 00 daily. [facility] digoxin 125 2020-0 Yes [id number] 125ug Take 1 [facility] mcg (0.125 5-06 tablet by ity of mg) tablet 00:00: mouth [place] 00 daily. [facility] digoxin 125 2020-0 Yes [id number] 125ug Take 1 [facility] mcg (0.125 5-06 tablet by ity of mg) tablet 00:00: mouth [place] 00 daily. [facility] digoxin 125 2020-0 Yes [id number] 125ug Take 1 [facility] mcg (0.125 5-06 tablet by ity of mg) tablet 00:00: mouth [place] 00 daily. [facility] Branch digoxin 125 2020-0 Yes [id number] 125ug Take 1 [facility] mcg (0.125 5-06 tablet by ity of mg) tablet 00:00: mouth [place] 00 daily. [facility] Branch digoxin 125 2020-0 Yes [id number] 125ug Take 1 [facility] mcg (0.125 5-06 tablet by ity of mg) tablet 00:00: mouth [place] 00 daily. [facility] Branch digoxin 125 2020-0 Yes [id number] 125ug Take 1 [facility] mcg (0.125 5-06 tablet by ity of mg) tablet 00:00: mouth [place] 00 daily. [facility] digoxin 125 2020-0 Yes [id number] 125ug Take 1 [facility] mcg (0.125 5-06 tablet by ity of mg) tablet 00:00: mouth [place] 00 daily. [facility] digoxin 125 2020-0 Yes [id number] 125ug Take 1 [facility] mcg (0.125 5-06 tablet by ity of mg) tablet 00:00: mouth [place] 00 daily. [facility] digoxin 125 2020-0 Yes [id number] 125ug Take 1 [facility] mcg (0.125 5-06 tablet by ity of mg) tablet 00:00: mouth [place] 00 daily. [facility] digoxin 125 2020-0 Yes [id number] 125ug Take 1 [facility] mcg (0.125 5-06 tablet by ity of mg) tablet 00:00: mouth [place] 00 daily. Medical Branch digoxin 125 2020-0 Yes [id number] 125ug Take 1 [facility] mcg (0.125 5-06 tablet by ity of mg) tablet 00:00: mouth [place] 00 daily. [facility] Branch digoxin 125 2020-0 Yes [id number] 125ug Take 1 [facility] mcg (0.125 5-06 tablet by ity of mg) tablet 00:00: mouth [place] 00 daily. [facility] digoxin 125 2020-0 Yes [id number] 125ug Take 1 [facility] mcg (0.125 5-06 tablet by ity of mg) tablet 00:00: mouth [place] 00 daily. [facility] digoxin 125 2020-0 Yes [id number] 125ug Take 1 [facility] mcg (0.125 5-06 tablet by ity of mg) tablet 00:00: mouth [place] 00 daily. [facility] Branch digoxin 125 2020-0 Yes [id number] 125ug Take 1 [facility] mcg (0.125 5-06 tablet by ity of mg) tablet 00:00: mouth [place] 00 daily. [facility] Branch digoxin 125 2020-0 Yes [id number] 125ug Take 1 [facility] mcg (0.125 5-06 tablet by ity of mg) tablet 00:00: mouth [place] 00 daily. [facility] Branch digoxin 125 2020-0 Yes [id number] 125ug Take 1 [facility] mcg (0.125 5-06 tablet by ity of mg) tablet 00:00: mouth [place] 00 daily. [facility] Branch digoxin 125 2020-0 Yes [id number] 125ug Take 1 [facility] mcg (0.125 5-06 tablet by ity of mg) tablet 00:00: mouth [place] 00 daily. [facility] Branch digoxin 125 Yes [id number] 125ug Take 1 [facility] mcg (0.125 5-06 tablet by ity of mg) tablet 00:00: mouth [place] 00 daily. [facility] Branch digoxin 125 Yes [id number] 125ug Take 1 [facility] mcg (0.125 5-06 tablet by ity of mg) tablet 00:00: mouth [place] 00 daily. [facility] Branch digoxin 125 Yes [id number] 125ug Take 1 [facility] mcg (0.125 5-06 tablet by ity of mg) tablet 00:00: mouth [place] 00 daily. Medical Branch digoxin 125 Yes [id number] 125ug Take 1 [facility] mcg (0.125 5-06 tablet by ity of mg) tablet 00:00: [facility] 00 daily. Medical Branch digoxin 125 2022- No [id number] 125ug Take 1 [facility] mcg (0.125 5-06 02-05 tablet by ity of mg) tablet 00:00: 00:00 mouth [place] 00 :00 daily. Medical Branch digoxin 125 2022- No [id number] 125ug Take 1 [facility] mcg (0.125 5-06 02-05 tablet by ity of mg) tablet 00:00: 00:00 mouth [place] 00 :00 daily. [facility] Branch digoxin 125 2022- No [id number] 125ug Take 1 [facility] mcg (0.125 5-06 02-05 tablet by ity of mg) tablet 00:00: 00:00 mouth [place] 00 :00 daily. [facility] Branch digoxin 125 2022- No [id number] 125ug Take 1 [facility] mcg (0.125 5-06 02-05 tablet by ity of mg) tablet 00:00: 00:00 mouth [place] 00 :00 daily. [facility] Branch digoxin 125 2022- No [id number] 125ug Take 1 [facility] mcg (0.125 5-06 02-05 tablet by ity of mg) tablet 00:00: 00:00 mouth [place] 00 :00 daily. [facility] Branch predniSONE 2020- No 5mg Take 5 mg [facility] nivers 5 mg tablet 05-27-25 by mouth ity of 15:49: 00:00 daily. [place] 49 :00 Medical Branch predniSONE 2020-0 2020- No 5mg Take 5 mg [facility] nivers 5 mg tablet 2-25 02-25 by mouth ity of 15:49: 00:00 daily. [place] 49 :00 Medical Branch buPROPion 0 Yes 150mg Take 150 [facility] vers SR 2-25 mg by ity of (WELLBUTRIN 15:49: mouth [place] SR) 150 mg 47 daily. Medical SR tablet Indication Bran ch s: 1tab Qam 2tabs Qpm SERTraline 2019-0 Yes 50mg Take 50 mg [facility] nivers (ZOLOFT) 50 2-25 by mouth ity of mg tablet 15:49: daily. [address] Branch tofacitinib Yes 11mg Take 11 mg [facility] (XELJANZ 2-25 by mouth. ity of XR) 11 mg 15:49: [place] [address] Medical Branch buPROPion 0 Yes 150mg Take 150 [facility] vers SR 2-25 mg by ity of (WELLBUTRIN 15:49: mouth [place] SR) 150 mg 47 daily. Medical SR tablet Indication Bran ch s: 1tab Qam 2tabs Qpm SERTraline 2019-0 Yes 50mg Take 50 mg [facility] (ZOLOFT) 50 2-25 by mouth ity of mg tablet 15:49: daily. [address] Branch tofacitinib 0 Yes 11mg Take 11 mg [facility] (XELJANZ 2-25 by mouth. ity of XR) 11 mg 15:49: [place] [address] Medical Branch buPROPion 0 Yes 150mg Take 150 [facility] vers SR 2-25 mg by ity of (WELLBUTRIN 15:49: mouth [place] SR) 150 mg 47 daily. Medical SR tablet Indication Bran ch s: 1tab Qam 2tabs Qpm SERTraline 2019-0 Yes 50mg Take 50 mg [facility]ivers (ZOLOFT) 50 2-25 by mouth ity of mg tablet 15:49: daily. [address] Branch tofacitinib 0 Yes 11mg Take 11 mg [facility] (XELJANZ 2-25 by mouth. ity of XR) 11 mg 15:49: [place] [address] Medical Branch buPROPion 0 Yes 150mg Take 150 [facility] vers SR 2-25 mg by ity of (WELLBUTRIN 15:49: mouth [place] SR) 150 mg 47 daily. Medical SR tablet Indication Bran ch s: 1tab Qam 2tabs Qpm SERTraline 2020-0 Yes 50mg Take 50 mg [facility] nivers (ZOLOFT) 50 2-25 by mouth ity of mg tablet 15:49: daily. [address] Branch tofacitinib 2020-0 Yes 11mg Take 11 mg [facility] (XELJANZ 2-25 by mouth. ity of XR) 11 mg 15:49: [address] buPROPion 2020-0 Yes 150mg Take 150 [facility] vers SR 2-25 mg by ity of (WELLBUTRIN 15:49: mouth [place] SR) 150 mg 47 daily. Medical SR tablet Indication Bran ch s: 1tab Qam 2tabs Qpm SERTraline 2020-0 Yes 50mg Take 50 mg [facility] nivers (ZOLOFT) 50 2-25 by mouth ity of mg tablet 15:49: daily. [address] tofacitinib 2020-0 Yes 11mg Take 11 mg [facility] (XELJANZ 2-25 by mouth. ity of XR) 11 mg 15:49: [address] buPROPion 2020-0 Yes 150mg Take 150 [facility] vers SR 2-25 mg by ity of (WELLBUTRIN 15:49: mouth [place] SR) 150 mg 47 daily. Medical SR tablet Indication Bran ch s: 1tab Qam 2tabs Qpm SERTraline 2020-0 Yes 50mg Take 50 mg [facility] nivers (ZOLOFT) 50 2-25 by mouth ity of mg tablet 15:49: daily. [address] tofacitinib 2020-0 Yes 11mg Take 11 mg [facility] (XELJANZ 2-25 by mouth. ity of XR) 11 mg 15:49: [address] buPROPion 2020-0 Yes 150mg Take 150 [facility] vers SR 2-25 mg by ity of (WELLBUTRIN 15:49: mouth [place] SR) 150 mg 47 daily. Medical SR tablet Indication Bran ch s: 1tab Qam 2tabs Qpm SERTraline 2020-0 Yes 50mg Take 50 mg U nivers (ZOLOFT) 50 2-25 by mouth ity of mg tablet 15:49: daily. [address] tofacitinib 2020-0 Yes 11mg Take 11 mg [facility] (XELJANZ 2-25 by mouth. ity of XR) 11 mg 15:49: [address] buPROPion 2020-0 Yes 150mg Take 150 [facility] vers SR 2-25 mg by ity of (WELLBUTRIN 15:49: mouth [place] SR) 150 mg 47 daily. Medical SR tablet Indication Bran ch s: 1tab Qam 2tabs Qpm SERTraline 2020-0 Yes 50mg Take 50 mg U nivers (ZOLOFT) 50 2-25 by mouth ity of mg tablet 15:49: daily. [address] tofacitinib 2020-0 Yes 11mg Take 11 mg [facility] (XELJANZ 2-25 by mouth. ity of XR) 11 mg 15:49: [address] buPROPion 2019-0 Yes 150mg Take 150 [facility] vers SR 2-25 mg by ity of (WELLBUTRIN 15:49: mouth [place] SR) 150 mg 47 daily. Medical SR tablet Indication Bran ch s: 1tab Qam 2tabs Qpm SERTraline 2020-0 Yes 50mg Take 50 mg U nivers (ZOLOFT) 50 2-25 by mouth ity of mg tablet 15:49: daily. [address] tofacitinib 2019-0 Yes 11mg Take 11 mg [facility] (XELJANZ 2-25 by mouth. ity of XR) 11 mg 15:49: [address] abatacept 2020-0 2020- No 2506 125mg inject 125 Univers (ORENCIA) 2-25 02-25 mg under ity o f 125 mg/mL 15:30: 00:00 the skin [place] as injection 22 :00 every Sunday. Branch Indication s: ARTHRITIS abatacept 2020-0 2020- No 2506 125mg inject 125 [facility] (ORENCIA) 2-25 02-25 mg under ity o f 125 mg/mL 15:30: 00:00 the skin [place] as injection 22 :00 every Sunday. Branch Indication s: ARTHRITIS tofacitinib 2020-0 Yes 11mg Take 11 mg [facility] (XELJANZ 2-25 by mouth. ity of XR) 11 mg 09:49: [address] tofacitinib 2020-0 Yes 11mg Take 11 mg [facility] (XELJANZ 2-25 by mouth. ity of XR) 11 mg 09:49: [address] tofacitinib 2020-0 Yes 11mg Take 11 mg [facility] (XELJANZ 2-25 by mouth. ity of XR) 11 mg 09:49: [address] tofacitinib 2020-0 Yes 11mg Take 11 mg [facility] (XELJANZ 2-25 by mouth. ity of XR) 11 mg 09:49: [address] tofacitinib 2020-0 Yes 11mg Take 11 mg [facility] (XELJANZ 2-25 by mouth. ity of XR) 11 mg 09:49: [address] tofacitinib 2020-0 Yes 11mg Take 11 mg [facility] (XELJANZ 2-25 by mouth. ity of XR) 11 mg 09:49: [address] tofacitinib 2020-0 Yes 11mg Take 11 mg [facility] (XELJANZ 2-25 by mouth. ity of XR) 11 mg 09:49: [address] tofacitinib 2020-0 Yes 11mg Take 11 mg [facility] (XELJANZ 2-25 by mouth. ity of XR) 11 mg 09:49: [address] tofacitinib 2020-0 Yes 11mg Take 11 mg [facility] (XELJANZ 2-25 by mouth. ity of XR) 11 mg 09:49: [address] tofacitinib 2020-0 Yes 11mg Take 11 mg [facility] (XELJANZ 2-25 by mouth. ity of XR) 11 mg 09:49: [address] tofacitinib 2020-0 Yes 11mg Take 11 mg [facility] (XELJANZ 2-25 by mouth. ity of XR) 11 mg 09:49: [address] tofacitinib 2020-0 Yes 11mg Take 11 mg [facility] (XELJANZ 2-25 by mouth. ity of XR) 11 mg 09:49: [address] tofacitinib 2020-0 Yes 11mg Take 11 mg [facility] (XELJANZ 2-25 by mouth. ity of XR) 11 mg 09:49: [address] tofacitinib 2020-0 Yes 11mg Take 11 mg [facility] (XELJANZ 2-25 by mouth. ity of XR) 11 mg 09:49: [address] tofacitinib 2020-0 Yes 11mg Take 11 mg [facility] (XELJANZ 2-25 by mouth. ity of XR) 11 mg 09:49: [address] tofacitinib 2020-0 Yes 11mg Take 11 mg [facility] (XELJANZ 2-25 by mouth. ity of XR) 11 mg 09:49: [address] tofacitinib 2020-0 Yes 11mg Take 11 mg [facility] (XELJANZ 2-25 by mouth. ity of XR) 11 mg 09:49: [address] tofacitinib 2020-0 Yes 11mg Take 11 mg [facility] (XELJANZ 2-25 by mouth. ity of XR) 11 mg 09:49: [address] tofacitinib 2020-0 Yes 11mg Take 11 mg [facility] (XELJANZ 2-25 by mouth. ity of XR) 11 mg 09:49: [address] tofacitinib 2020-0 Yes 11mg Take 11 mg [facility] (XELJANZ 2-25 by mouth. ity of XR) 11 mg 09:49: [address] tofacitinib 2020-0 Yes 11mg Take 11 mg [facility] (XELJANZ 2-25 by mouth. ity of XR) 11 mg 09:49: [address] tofacitinib 2020-0 Yes 11mg Take 11 mg [facility] (XELJANZ 2-25 by mouth. ity of XR) 11 mg 09:49: [address] tofacitinib 2020-0 Yes 11mg Take 11 mg [facility] (XELJANZ 2-25 by mouth. ity of XR) 11 mg 09:49: [address] tofacitinib 2020-0 Yes 11mg Take 11 mg [facility] (XELJANZ 2-25 by mouth. ity of XR) 11 mg 09:49: [address] tofacitinib 2020-0 Yes 11mg Take 11 mg [facility] (XELJANZ 2-25 by mouth. ity of XR) 11 mg 09:49: [address] tofacitinib 2020-0 Yes 11mg Take 11 mg [facility] (XELJANZ 2-25 by mouth. ity of XR) 11 mg 09:49: [address] tofacitinib 2020-0 Yes 11mg Take 11 mg [facility] (XELJANZ 2-25 by mouth. ity of XR) 11 mg 09:49: [address] tofacitinib 2020-0 Yes 11mg Take 11 mg [facility] (XELJANZ 2-25 by mouth. ity of XR) 11 mg 09:49: [address] tofacitinib 2020-0 Yes 11mg Take 11 mg [facility] (XELJANZ 2-25 by mouth. ity of XR) 11 mg 09:49: [address] tofacitinib 2020-0 Yes 11mg Take 11 mg [facility] (XELJANZ 2-25 by mouth. ity of XR) 11 mg 09:49: [address] tofacitinib 2020-0 Yes 11mg Take 11 mg [facility] (XELJANZ 2-25 by mouth. ity of XR) 11 mg 09:49: [address] tofacitinib 2020-0 Yes 11mg Take 11 mg [facility] (XELJANZ 2-25 by mouth. ity of XR) 11 mg 09:49: [address] tofacitinib 2020-0 Yes 11mg Take 11 mg [facility] (XELJANZ 2-25 by mouth. ity of XR) 11 mg 09:49: [address] tofacitinib 2020-0 Yes 11mg Take 11 mg [facility] (XELJANZ 2-25 by mouth. ity of XR) 11 mg 09:49: [address] tofacitinib 2020-0 Yes 11mg Take 11 mg [facility] (XELJANZ 2-25 by mouth. ity of XR) 11 mg 09:49: [address] tofacitinib 2020-0 Yes 11mg Take 11 mg [facility] (XELJANZ 2-25 by mouth. ity of XR) 11 mg 09:49: [address] tofacitinib 2020-0 Yes 11mg Take 11 mg [facility] (XELJANZ 2-25 by mouth. ity of XR) 11 mg 09:49: [address] tofacitinib 2020-0 Yes 11mg Take 11 mg [facility] (XELJANZ 2-25 by mouth. ity of XR) 11 mg 09:49: [address] tofacitinib 2020-0 Yes 11mg Take 11 mg [facility] (XELJANZ 2-25 by mouth. ity of XR) 11 mg 09:49: [address] tofacitinib 2020-0 Yes 11mg Take 11 mg [facility] (XELJANZ 2-25 by mouth. ity of XR) 11 mg 09:49: [address] tofacitinib 2020-0 Yes 11mg Take 11 mg [facility] (XELJANZ 2-25 by mouth. ity of XR) 11 mg 09:49: [address] tofacitinib 2020-0 Yes 11mg Take 11 mg [facility] (XELJANZ 2-25 by mouth. ity of XR) 11 mg 09:49: [address] tofacitinib 2020-0 Yes 11mg Take 11 mg [facility] (XELJANZ 2-25 by mouth. ity of XR) 11 mg 09:49: [address] tofacitinib 2020-0 Yes 11mg Take 11 mg [facility] (XELJANZ 2-25 by mouth. ity of XR) 11 mg 09:49: [address] tofacitinib 2020-0 Yes 11mg Take 11 mg [facility] (XELJANZ 2-25 by mouth. ity of XR) 11 mg 09:49: [address] tofacitinib 2020-0 Yes 11mg Take 11 mg [facility] (XELJANZ 2-25 by mouth. ity of XR) 11 mg 09:49: [address] tofacitinib 2020-0 Yes 11mg Take 11 mg [facility] (XELJANZ 2-25 by mouth. ity of XR) 11 mg 09:49: [address] tofacitinib 2020-0 Yes 11mg Take 11 mg [facility] (XELJANZ 2-25 by mouth. ity of XR) 11 mg 09:49: [address] tofacitinib 2020-0 Yes 11mg Take 11 mg [facility] (XELJANZ 2-25 by mouth. ity of XR) 11 mg 09:49: [address] tofacitinib 2020-0 Yes 11mg Take 11 mg [facility] (XELJANZ 2-25 by mouth. ity of XR) 11 mg 09:49: [address] tofacitinib 2020-0 Yes 11mg Take 11 mg [facility] (XELJANZ 2-25 by mouth. ity of XR) 11 mg 09:49: [address] tofacitinib 2020-0 Yes 11mg Take 11 mg [facility] (XELJANZ 2-25 by mouth. ity of XR) 11 mg 09:49: [address] tofacitinib 2020-0 Yes 11mg Take 11 mg [facility] (XELJANZ 2-25 by mouth. ity of XR) 11 mg 09:49: [address] tofacitinib 2020-0 Yes 11mg Take 11 mg [facility] (XELJANZ 2-25 by mouth. ity of XR) 11 mg 09:49: [address] tofacitinib 2020-0 Yes 11mg Take 11 mg [facility] (XELJANZ 2-25 by mouth. ity of XR) 11 mg 09:49: [address] tofacitinib 2020-0 Yes 11mg Take 11 mg [facility] (XELJANZ 2-25 by mouth. ity of XR) 11 mg 09:49: [address] tofacitinib 2020-0 Yes 11mg Take 11 mg [facility] (XELJANZ 2-25 by mouth. ity of XR) 11 mg 09:49: [address] tofacitinib 2020-0 Yes 11mg Take 11 mg [facility] (XELJANZ 2-25 by mouth. ity of XR) 11 mg 09:49: [address] tofacitinib 2020-0 Yes 11mg Take 11 mg [facility] (XELJANZ 2-25 by mouth. ity of XR) 11 mg 09:49: [address] tofacitinib 2020-0 Yes 11mg Take 11 mg [facility] (XELJANZ 2-25 by mouth. ity of XR) 11 mg 09:49: [address] tofacitinib 2020-0 Yes 11mg Take 11 mg [facility] (XELJANZ 2-25 by mouth. ity of XR) 11 mg 09:49: [address] tofacitinib 2020-0 Yes 11mg Take 11 mg [facility] (XELJANZ 2-25 by mouth. ity of XR) 11 mg 09:49: [address] tofacitinib 2020-0 Yes 11mg Take 11 mg [facility] (XELJANZ 2-25 by mouth. ity of XR) 11 mg 09:49: [address] tofacitinib 2020-0 Yes 11mg Take 11 mg [facility] (XELJANZ 2-25 by mouth. ity of XR) 11 mg 09:49: [address] tofacitinib 2020-0 Yes 11mg Take 11 mg [facility] (XELJANZ 2-25 by mouth. ity of XR) 11 mg 09:49: [address] tofacitinib 2020-0 Yes 11mg Take 11 mg [facility] (XELJANZ 2-25 by mouth. ity of XR) 11 mg 09:49: [address] tofacitinib 2020-0 Yes 11mg Take 11 mg [facility] (XELJANZ 2-25 by mouth. ity of XR) 11 mg 09:49: [address] tofacitinib 2020-0 Yes 11mg Take 11 mg [facility] (XELJANZ 2-25 by mouth. ity of XR) 11 mg 09:49: [address] tofacitinib 2020-0 Yes 11mg Take 11 mg [facility] (XELJANZ 2-25 by mouth. ity of XR) 11 mg 09:49: [address] tofacitinib 2020-0 Yes 11mg Take 11 mg [facility] (XELJANZ 2-25 by mouth. ity of XR) 11 mg 09:49: [address] tofacitinib 2020-0 Yes 11mg Take 11 mg [facility] (XELJANZ 2-25 by mouth. ity of XR) 11 mg 09:49: [address] tofacitinib 2020-0 Yes 11mg Take 11 mg [facility] (XELJANZ 2-25 by mouth. ity of XR) 11 mg 09:49: [address] tofacitinib 2020-0 Yes 11mg Take 11 mg [facility] (XELJANZ 2-25 by mouth. ity of XR) 11 mg 09:49: [address] tofacitinib 2020-0 Yes 11mg Take 11 mg [facility] (XELJANZ 2-25 by mouth. ity of XR) 11 mg 09:49: [address] tofacitinib 2020-0 Yes 11mg Take 11 mg [facility] (XELJANZ 2-25 by mouth. ity of XR) 11 mg 09:49: [address] tofacitinib 2020-0 Yes 11mg Take 11 mg [facility] (XELJANZ 2-25 by mouth. ity of XR) 11 mg 09:49: [address] tofacitinib 2020-0 Yes 11mg Take 11 mg [facility] (XELJANZ 2-25 by mouth. ity of XR) 11 mg 09:49: [address] tofacitinib 2020-0 Yes 11mg Take 11 mg [facility] (XELJANZ 2-25 by mouth. ity of XR) 11 mg 09:49: [address] tofacitinib 2020-0 Yes 11mg Take 11 mg [facility] (XELJANZ 2-25 by mouth. ity of XR) 11 mg 09:49: [address] tofacitinib 2020-0 Yes 11mg Take 11 mg [facility] (XELJANZ 2-25 by mouth. ity of XR) 11 mg 09:49: [address] tofacitinib 2020-0 Yes 11mg Take 11 mg [facility] (XELJANZ 2-25 by mouth. ity of XR) 11 mg 09:49: [address] tofacitinib 2020-0 Yes 11mg Take 11 mg [facility] (XELJANZ 2-25 by mouth. ity of XR) 11 mg 09:49: [address] tofacitinib 2020-0 Yes 11mg Take 11 mg [facility] (XELJANZ 2-25 by mouth. ity of XR) 11 mg 09:49: [address] tofacitinib 2020-0 Yes 11mg Take 11 mg [facility] (XELJANZ 2-25 by mouth. ity of XR) 11 mg 09:49: [address] tofacitinib 2020-0 Yes 11mg Take 11 mg [facility] (XELJANZ 2-25 by mouth. ity of XR) 11 mg 09:49: [address] tofacitinib 2020-0 Yes 11mg Take 11 mg [facility] (XELJANZ 2-25 by mouth. ity of XR) 11 mg 09:49: [address] tofacitinib 2020-0 Yes 11mg Take 11 mg [facility] (XELJANZ 2-25 by mouth. ity of XR) 11 mg 09:49: [address] tofacitinib 2020-0 Yes 11mg Take 11 mg [facility] (XELJANZ 2-25 by mouth. ity of XR) 11 mg 09:49: [address] tofacitinib 2020-0 Yes 11mg Take 11 mg [facility] (XELJANZ 2-25 by mouth. ity of XR) 11 mg 09:49: [address] tofacitinib 2020-0 Yes 11mg Take 11 mg [facility] (XELJANZ 2-25 by mouth. ity of XR) 11 mg 09:49: [address] tofacitinib 2020-0 Yes 11mg Take 11 mg [facility] (XELJANZ 2-25 by mouth. ity of XR) 11 mg 09:49: [address] tofacitinib 2020-0 Yes 11mg Take 11 mg [facility] (XELJANZ 2-25 by mouth. ity of XR) 11 mg 09:49: [address] tofacitinib 2020-0 Yes 11mg Take 11 mg [facility] (XELJANZ 2-25 by mouth. ity of XR) 11 mg 09:49: [address] tofacitinib 2020-0 Yes 11mg Take 11 mg [facility] (XELJANZ 2-25 by mouth. ity of XR) 11 mg 09:49: [address] tofacitinib 2020-0 Yes 11mg Take 11 mg [facility] (XELJANZ 2-25 by mouth. ity of XR) 11 mg 09:49: [address] tofacitinib 2020-0 Yes 11mg Take 11 mg [facility] (XELJANZ 2-25 by mouth. ity of XR) 11 mg 09:49: [address] tofacitinib 2020-0 Yes 11mg Take 11 mg [facility] (XELJANZ 2-25 by mouth. ity of XR) 11 mg 09:49: [address] tofacitinib 2020-0 Yes 11mg Take 11 mg [facility] (XELJANZ 2-25 by mouth. ity of XR) 11 mg 09:49: [address] tofacitinib 2020-0 Yes 11mg Take 11 mg [facility] (XELJANZ 2-25 by mouth. ity of XR) 11 mg 09:49: [address] tofacitinib 2020-0 Yes 11mg Take 11 mg [facility] (XELJANZ 2-25 by mouth. ity of XR) 11 mg 09:49: [address] tofacitinib 2020-0 Yes 11mg Take 11 mg [facility] (XELJANZ 2-25 by mouth. ity of XR) 11 mg 09:49: [address] tofacitinib 2020-0 Yes 11mg Take 11 mg [facility] (XELJANZ 2-25 by mouth. ity of XR) 11 mg 09:49: [address] tofacitinib 2020-0 Yes 11mg Take 11 mg [facility] (XELJANZ 2-25 by mouth. ity of XR) 11 mg 09:49: [address] tofacitinib 2020-0 Yes 11mg Take 11 mg [facility] (XELJANZ 2-25 by mouth. ity of XR) 11 mg 09:49: [address] tofacitinib 2020-0 Yes 11mg Take 11 mg [facility] (XELJANZ 2-25 by mouth. ity of XR) 11 mg 09:49: [address] tofacitinib 2020-0 Yes 11mg Take 11 mg [facility] (XELJANZ 2-25 by mouth. ity of XR) 11 mg 09:49: [address] tofacitinib 2020-0 Yes 11mg Take 11 mg [facility] (XELJANZ 2-25 by mouth. ity of XR) 11 mg 09:49: [address] tofacitinib 2020-0 Yes 11mg Take 11 mg [facility] (XELJANZ 2-25 by mouth. ity of XR) 11 mg 09:49: [address] tofacitinib 2020-0 Yes 11mg Take 11 mg [facility] (XELJANZ 2-25 by mouth. ity of XR) 11 mg 09:49: [address] tofacitinib 2020-0 Yes 11mg Take 11 mg [facility] (XELJANZ 2-25 by mouth. ity of XR) 11 mg 09:49: [address] tofacitinib 2020-0 Yes 11mg Take 11 mg [facility] (XELJANZ 2-25 by mouth. ity of XR) 11 mg 09:49: [address] tofacitinib 2020-0 Yes 11mg Take 11 mg [facility] (XELJANZ 2-25 by mouth. ity of XR) 11 mg 09:49: [address] tofacitinib 2020-0 Yes 11mg Take 11 mg [facility] (XELJANZ 2-25 by mouth. ity of XR) 11 mg 09:49: [address] tofacitinib 2020-0 Yes 11mg Take 11 mg [facility] (XELJANZ 2-25 by mouth. ity of XR) 11 mg 09:49: [address] tofacitinib 2020-0 Yes 11mg Take 11 mg [facility] (XELJANZ 2-25 by mouth. ity of XR) 11 mg 09:49: [address] tofacitinib 2020-0 Yes 11mg Take 11 mg [facility] (XELJANZ 2-25 by mouth. ity of XR) 11 mg 09:49: [address] tofacitinib 2020-0 Yes 11mg Take 11 mg [facility] (XELJANZ 2-25 by mouth. ity of XR) 11 mg 09:49: [address] tofacitinib 2020-0 Yes 11mg Take 11 mg [facility] (XELJANZ 2-25 by mouth. ity of XR) 11 mg 09:49: [address] tofacitinib 2020-0 Yes 11mg Take 11 mg [facility] (XELJANZ 2-25 by mouth. ity of XR) 11 mg 09:49: [address] tofacitinib 2020-0 Yes 11mg Take 11 mg [facility] (XELJANZ 2-25 by mouth. ity of XR) 11 mg 09:49: [address] tofacitinib 2020-0 Yes 11mg Take 11 mg [facility] (XELJANZ 2-25 by mouth. ity of XR) 11 mg 09:49: [address] tofacitinib 2020-0 Yes 11mg Take 11 mg [facility] (XELJANZ 2-25 by mouth. ity of XR) 11 mg 09:49: [address] tofacitinib 2020-0 Yes 11mg Take 11 mg [facility] (XELJANZ 2-25 by mouth. ity of XR) 11 mg 09:49: [address] tofacitinib 2020-0 Yes 11mg Take 11 mg [facility] (XELJANZ 2-25 by mouth. ity of XR) 11 mg 09:49: [address] tofacitinib 2020-0 Yes 11mg Take 11 mg [facility] (XELJANZ 2-25 by mouth. ity of XR) 11 mg 09:49: [address] tofacitinib 2020-0 Yes 11mg Take 11 mg [facility] (XELJANZ 2-25 by mouth. ity of XR) 11 mg 09:49: [address] tofacitinib 2020-0 Yes 11mg Take 11 mg [facility] (XELJANZ 2-25 by mouth. ity of XR) 11 mg 09:49: [address] tofacitinib 2020-0 Yes 11mg Take 11 mg [facility] (XELJANZ 2-25 by mouth. ity of XR) 11 mg 09:49: [address] tofacitinib 2020-0 Yes 11mg Take 11 mg [facility] (XELJANZ 2-25 by mouth. ity of XR) 11 mg 09:49: [address] tofacitinib 2020-0 Yes 11mg Take 11 mg [facility] (XELJANZ 2-25 by mouth. ity of XR) 11 mg 09:49: [address] tofacitinib 2020-0 Yes 11mg Take 11 mg [facility] (XELJANZ 2-25 by mouth. ity of XR) 11 mg 09:49: [address] tofacitinib 2020-0 Yes 11mg Take 11 mg [facility] (XELJANZ 2-25 by mouth. ity of XR) 11 mg 09:49: [address] buPROPion 2019-0 Yes 150mg Take 150 [facility] vers SR 2-25 mg by ity of (WELLBUTRIN 09:49: mouth [place] SR) 150 mg 47 daily. Medical SR tablet Indication Bran ch s: 1tab Qam 2tabs Qpm SERTraline 2019-0 Yes 50mg Take 50 mg [facility] (ZOLOFT) 50 2-25 by mouth ity of mg tablet 09:49: daily. [address] tofacitinib 2020-0 Yes 11mg Take 11 mg [facility] (XELJANZ 2-25 by mouth. ity of XR) 11 mg 09:49: [address] tofacitinib 2020-0 Yes 11mg Take 11 mg [facility] (XELJANZ 2-25 by mouth. ity of XR) 11 mg 09:49: [address] tofacitinib 2020-0 Yes 11mg Take 11 mg [facility] (XELJANZ 2-25 by mouth. ity of XR) 11 mg 09:49: [address] tofacitinib 2020-0 Yes 11mg Take 11 mg [facility] (XELJANZ 2-25 by mouth. ity of XR) 11 mg 09:49: [address] tofacitinib 2020-0 Yes 11mg Take 11 mg [facility] (XELJANZ 2-25 by mouth. ity of XR) 11 mg 09:49: [address] tofacitinib 2020-0 Yes 11mg Take 11 mg [facility] (XELJANZ 2-25 by mouth. ity of XR) 11 mg 09:49: [address] tofacitinib 2020-0 Yes 11mg Take 11 mg [facility] (XELJANZ 2-25 by mouth. ity of XR) 11 mg 09:49: [address] tofacitinib 2020-0 Yes 11mg Take 11 mg [facility] (XELJANZ 2-25 by mouth. ity of XR) 11 mg 09:49: [address] tofacitinib 2020-0 Yes 11mg Take 11 mg [facility] (XELJANZ 2-25 by mouth. ity of XR) 11 mg 09:49: [address] tofacitinib 2020-0 Yes 11mg Take 11 mg [facility] (XELJANZ 2-25 by mouth. ity of XR) 11 mg 09:49: [address] tofacitinib 2020-0 Yes 11mg Take 11 mg [facility] (XELJANZ 2-25 by mouth. ity of XR) 11 mg 09:49: [address] tofacitinib 2020-0 Yes 11mg Take 11 mg [facility] (XELJANZ 2-25 by mouth. ity of XR) 11 mg 09:49: [address] tofacitinib 2020-0 Yes 11mg Take 11 mg [facility] (XELJANZ 2-25 by mouth. ity of XR) 11 mg 09:49: [address] tofacitinib 2020-0 Yes 11mg Take 11 mg [facility] (XELJANZ 2-25 by mouth. ity of XR) 11 mg 09:49: [address] tofacitinib 2020-0 Yes 11mg Take 11 mg [facility] (XELJANZ 2-25 by mouth. ity of XR) 11 mg 09:49: [address] tofacitinib 2020-0 Yes 11mg Take 11 mg [facility] (XELJANZ 2-25 by mouth. ity of XR) 11 mg 09:49: [address] tofacitinib 2020-0 Yes 11mg Take 11 mg [facility] (XELJANZ 2-25 by mouth. ity of XR) 11 mg 09:49: [address] tofacitinib 2020-0 Yes 11mg Take 11 mg [facility] (XELJANZ 2-25 by mouth. ity of XR) 11 mg 09:49: [address] tofacitinib 2020-0 Yes 11mg Take 11 mg [facility] (XELJANZ 2-25 by mouth. ity of XR) 11 mg 09:49: [address] tofacitinib 2020-0 Yes 11mg Take 11 mg [facility] (XELJANZ 2-25 by mouth. ity of XR) 11 mg 09:49: [address] tofacitinib 2020-0 Yes 11mg Take 11 mg [facility] (XELJANZ 2-25 by mouth. ity of XR) 11 mg 09:49: [address] tofacitinib 2020-0 Yes 11mg Take 11 mg [facility] (XELJANZ 2-25 by mouth. ity of XR) 11 mg 09:49: [address] tofacitinib 2020-0 Yes 11mg Take 11 mg [facility] (XELJANZ 2-25 by mouth. ity of XR) 11 mg 09:49: [address] tofacitinib 2020-0 Yes 11mg Take 11 mg [facility] (XELJANZ 2-25 by mouth. ity of XR) 11 mg 09:49: [address] tofacitinib 2020-0 Yes 11mg Take 11 mg [facility] (XELJANZ 2-25 by mouth. ity of XR) 11 mg 09:49: [address] tofacitinib 2020-0 Yes 11mg Take 11 mg [facility] (XELJANZ 2-25 by mouth. ity of XR) 11 mg 09:49: [address] tofacitinib 2020-0 Yes 11mg Take 11 mg [facility] (XELJANZ 2-25 by mouth. ity of XR) 11 mg 09:49: [address] tofacitinib 2020-0 Yes 11mg Take 11 mg [facility] (XELJANZ 2-25 by mouth. ity of XR) 11 mg 09:49: [address] tofacitinib 2020-0 Yes 11mg Take 11 mg [facility] (XELJANZ 2-25 by mouth. ity of XR) 11 mg 09:49: [address] tofacitinib 2020-0 Yes 11mg Take 11 mg [facility] (XELJANZ 2-25 by mouth. ity of XR) 11 mg 09:49: [address] tofacitinib 2020-0 Yes 11mg Take 11 mg [facility] (XELJANZ 2-25 by mouth. ity of XR) 11 mg 09:49: [address] tofacitinib 2020-0 Yes 11mg Take 11 mg [facility] (XELJANZ 2-25 by mouth. ity of XR) 11 mg 09:49: [address] furosemide 2020-0 Yes 40mg Take [address] [facility] (LASIX) 40 2-25 by mouth. [facility] tablet 00:00: [facility] 00 [place] potassium 2020-0 Yes 20meq Take [address] [facility] chloride SA 2-25 mEq by [facility] (K-DUR,KLOR 00:00: mouth. [facility] -CON) 20 00 [facility] MEQ tablet furosemide 2020-0 Yes 40mg Take [address] [facility] (LASIX) 40 2-25 by mouth. [facility] tablet 00:00: [facility] 00 [place] potassium 2020-0 Yes 20meq Take [address] [facility] chloride SA 2-[facility]Eq [facility] (K-DUR,KLOR 00:00: mouth. [facility] -CON) 20 00 [facility] MEQ tablet furosemide 2020-0 Yes 40mg Take [address] [facility] (LASIX) 40 2-25 by mouth. [facility] tablet 00:00: [facility] 00 [place] potassium 2020-0 Yes 20meq Take [address] [facility] chloride SA 2-25 [facility]Eq by [facility] (K-DUR,KLOR 00:00: mouth. [facility] -CON) 20 00 Center MEQ tablet furosemide 2020-0 Yes [id number] 40mg Take 1 [facility] 40 mg 2-25 tablet by ity of tablet 00:00: mouth [place] 00 every Medical morning Branch and evening. apixaban 5 2020-0 Yes 1358 5mg Take 1 Un[facility] rs mg tablet 2-25 tablet by ity o f 00:00: mouth 2 [place] 00 (two) Medical times Branch daily. Indication s: atrial fibrillati on KCL 20 mEq 2020-0 Yes [id number] 20meq Take 1 [facility] tablet 2-25 tablet by ity of 00:00: mouth [place] 00 daily. Medical Branch furosemide 2020-0 Yes [id number] 40mg Take 1 [facility] 40 mg 2-25 tablet by ity of tablet 00:00: mouth [place] 00 every Medical morning Branch and evening. apixaban 5 2020-0 Yes 1358 5mg Take 1 Un[facility] rs mg tablet 2-25 tablet by ity o f 00:00: mouth 2 [place] 00 (two) Medical times Branch daily. Indication s: atrial fibrillati on KCL 20 mEq 2020-0 Yes [id number] 20meq Take 1 [facility] tablet 2-25 tablet by ity of 00:00: mouth [place] 00 daily. Medical Branch furosemide 2020-0 Yes [id number] 40mg Take 1 [facility] 40 mg 2-25 tablet by ity of tablet 00:00: mouth [place] 00 every Medical morning Branch and evening. apixaban 5 2020-0 Yes 1358 5mg Take 1 Un[facility] rs mg tablet 2-25 tablet by ity o f 00:00: mouth 2 [place] 00 (two) Medical times Branch daily. Indication s: atrial fibrillati on KCL 20 mEq 2020-0 Yes [id number] 20meq Take 1 [facility] tablet 2-25 tablet by ity of 00:00: mouth [place] 00 daily. Medical Branch furosemide 2020-0 Yes [id number] 40mg Take 1 [facility] 40 mg 2-25 tablet by ity of tablet 00:00: mouth [place] 00 every Medical morning Branch and evening. apixaban 5 2020-0 Yes 1358 5mg Take 1 Unive rs mg tablet 2-25 tablet by ity o f 00:00: mouth 2 [place] 00 (two) Medical times Branch daily. Indication s: atrial fibrillati on KCL 20 mEq 2020-0 Yes [id number] 20meq Take 1 [facility] tablet 2-25 tablet by ity of 00:00: mouth [place] 00 daily. Medical Branch furosemide 2020-0 Yes [id number] 40mg Take 1 [facility] 40 mg 2-25 tablet by ity of tablet 00:00: mouth [place] 00 every Medical morning Branch and evening. apixaban 5 2020-0 Yes 1358 5mg Take 1 Unive rs mg tablet 2-25 tablet by ity o f 00:00: mouth 2 [place] 00 (two) Medical times Branch daily. Indication s: atrial fibrillati on KCL 20 mEq 2020-0 Yes [id number] 20meq Take 1 [facility] tablet 2-25 tablet by ity of 00:00: mouth [place] 00 daily. Medical Branch furosemide 2020-0 Yes [id number] 40mg Take 1 [facility] 40 mg 2-25 tablet by ity of tablet 00:00: mouth [place] 00 every Medical morning Branch and evening. apixaban 5 2020-0 Yes 1358 5mg Take 1 Unive rs mg tablet 2-25 tablet by ity o f 00:00: mouth 2 [place] 00 (two) Medical times Branch daily. Indication s: atrial fibrillati on KCL 20 mEq 2020-0 Yes [id number] 20meq Take 1 [facility] tablet 2-25 tablet by ity of 00:00: mouth [place] 00 daily. Medical Branch furosemide 2020-0 Yes [id number] 40mg Take 1 [facility] 40 mg 2-25 tablet by ity of tablet 00:00: mouth [place] 00 every Medical morning Branch and evening. apixaban 5 2020-0 Yes 1358 5mg Take 1 Unive rs mg tablet 2-25 tablet by ity o f 00:00: mouth 2 [place] 00 (two) Medical times Branch daily. Indication s: atrial fibrillati on KCL 20 mEq 2020-0 Yes [id number] 20meq Take 1 [facility] tablet 2-25 tablet by ity of 00:00: mouth [place] 00 daily. Medical Branch furosemide 2020-0 Yes [id number] 40mg Take 1 [facility] 40 mg 2-25 tablet by ity of tablet 00:00: mouth [place] 00 every Medical morning Branch and evening. apixaban 5 2020-0 Yes 1358 5mg Take 1 Unive rs mg tablet 2-25 tablet by ity o f 00:00: mouth 2 [place] 00 (two) Medical times Branch daily. Indication s: atrial fibrillati on KCL 20 mEq 2020-0 Yes [id number] 20meq Take 1 [facility] tablet 2-25 tablet by ity of 00:00: mouth [place] 00 daily. Medical Branch furosemide 2020-0 Yes [id number] 40mg Take 1 [facility] 40 mg 2-25 tablet by ity of tablet 00:00: mouth [place] 00 every Medical morning Branch and evening. apixaban 5 2020-0 Yes 1358 5mg Take 1 Unive rs mg tablet 2-25 tablet by ity o f 00:00: mouth 2 [place] 00 (two) Medical times Branch daily. Indication s: atrial fibrillati on KCL 20 mEq 2020-0 Yes [id number] 20meq Take 1 [facility] tablet 2-25 tablet by ity of 00:00: mouth [place] 00 daily. Medical Branch furosemide 2020-0 Yes [id number] 40mg Take 1 [facility] 40 mg 2-25 tablet by ity of tablet 00:00: mouth [place] 00 every Medical morning Branch and evening. apixaban 5 2020-0 Yes 1358 5mg Take 1 Unive rs mg tablet 2-25 tablet by ity o f 00:00: mouth 2 [place] 00 (two) Medical times Branch daily. Indication s: atrial fibrillati on KCL 20 mEq 2020-0 Yes [id number] 20meq Take 1 [facility] tablet 2-25 tablet by ity of 00:00: mouth [place] 00 daily. Medical Branch furosemide 2020-0 Yes [id number] 40mg Take 1 [facility] 40 mg 2-25 tablet by ity of tablet 00:00: mouth [place] 00 every Medical morning Branch and evening. apixaban 5 2020-0 Yes 1358 5mg Take 1 Unive rs mg tablet 2-25 tablet by ity o f 00:00: mouth 2 [place] 00 (two) Medical times Branch daily. Indication s: atrial fibrillati on KCL 20 mEq 2020-0 Yes [id number] 20meq Take 1 [facility] tablet 2-25 tablet by ity of 00:00: mouth [place] 00 daily. Medical Branch furosemide 2020-0 Yes [id number] 40mg Take 1 [facility] 40 mg 2-25 tablet by ity of tablet 00:00: mouth [place] 00 every Medical morning Branch and evening. apixaban 5 2020-0 Yes 1358 5mg Take 1 Un[facility] rs mg tablet 2-25 tablet by ity o f 00:00: mouth 2 [place] 00 (two) Medical times Branch daily. Indication s: atrial fibrillati on KCL 20 mEq 2020-0 Yes [id number] 20meq Take 1 [facility] tablet 2-25 tablet by ity of 00:00: mouth [place] 00 daily. Medical Branch furosemide 2020-0 Yes [id number] 40mg Take 1 [facility] 40 mg 2-25 tablet by ity of tablet 00:00: mouth [place] 00 every Medical morning Branch and evening. apixaban 5 2020-0 Yes 1358 5mg Take 1 Un[facility] rs mg tablet 2-25 tablet by ity o f 00:00: mouth 2 [place] 00 (two) Medical times Branch daily. Indication s: atrial fibrillati on KCL 20 mEq 2020-0 Yes [id number] 20meq Take 1 [facility] tablet 2-25 tablet by ity of 00:00: mouth [place] 00 daily. Medical Branch furosemide 2020-0 Yes [id number] 40mg Take 1 [facility] 40 mg 2-25 tablet by ity of tablet 00:00: mouth [place] 00 every Medical morning Branch and evening. apixaban 5 2020-0 Yes 1358 5mg Take 1 Un[facility] rs mg tablet 2-25 tablet by ity o f 00:00: mouth 2 [place] 00 (two) Medical times Branch daily. Indication s: atrial fibrillati on KCL 20 mEq 2020-0 Yes [id number] 20meq Take 1 [facility] tablet 2-25 tablet by ity of 00:00: mouth [place] 00 daily. Medical Branch furosemide 2020-0 Yes [id number] 40mg Take 1 [facility] 40 mg 2-25 tablet by ity of tablet 00:00: mouth [place] 00 every Medical morning Branch and evening. apixaban 5 2020-0 Yes 1358 5mg Take 1 Un[facility] rs mg tablet 2-25 tablet by ity o f 00:00: mouth 2 [place] 00 (two) Medical times Branch daily. Indication s: atrial fibrillati on KCL 20 mEq 2020-0 Yes [id number] 20meq Take 1 [facility] tablet 2-25 tablet by ity of 00:00: mouth [place] 00 daily. Medical Branch furosemide 2020-0 Yes [id number] 40mg Take 1 [facility] 40 mg 2-25 tablet by ity of tablet 00:00: mouth [place] 00 every Medical morning Branch and evening. apixaban 5 2020-0 Yes 1358 5mg Take 1 Un[facility] rs mg tablet 2-25 tablet by ity o f 00:00: mouth 2 [place] 00 (two) Medical times Branch daily. Indication s: atrial fibrillati on KCL 20 mEq 2020-0 Yes [id number] 20meq Take 1 [facility] tablet 2-25 tablet by ity of 00:00: mouth [place] 00 daily. Medical Branch furosemide 2020-0 Yes [id number] 40mg Take 1 [facility] 40 mg 2-25 tablet by ity of tablet 00:00: mouth [place] 00 every Medical morning Branch and evening. apixaban 5 2020-0 Yes 1358 5mg Take 1 Un[facility] rs mg tablet 2-25 tablet by ity o f 00:00: mouth 2 [place] 00 (two) Medical times Branch daily. Indication s: atrial fibrillati on KCL 20 mEq 2020-0 Yes [id number] 20meq Take 1 [facility] tablet 2-25 tablet by ity of 00:00: mouth [place] 00 daily. Medical Branch furosemide 2020-0 Yes [id number] 40mg Take 1 [facility] 40 mg 2-25 tablet by ity of tablet 00:00: mouth [place] 00 every Medical morning Branch and evening. apixaban 5 2020-0 Yes 1358 5mg Take 1 Un[facility] rs mg tablet 2-25 tablet by ity o f 00:00: mouth 2 [place] 00 (two) Medical times Branch daily. Indication s: atrial fibrillati on KCL 20 mEq 2020-0 Yes [id number] 20meq Take 1 [facility] tablet 2-25 tablet by ity of 00:00: mouth [place] 00 daily. Medical Branch furosemide 2020-0 Yes [id number] 40mg Take 1 [facility] 40 mg 2-25 tablet by ity of tablet 00:00: mouth [place] 00 every Medical morning Branch and evening. apixaban 5 2020-0 Yes 1358 5mg Take 1 Un[facility] rs mg tablet 2-25 tablet by ity o f 00:00: mouth 2 [place] 00 (two) Medical times Branch daily. Indication s: atrial fibrillati on KCL 20 mEq 2020-0 Yes [id number] 20meq Take 1 [facility] tablet 2-25 tablet by ity of 00:00: mouth [place] 00 daily. Medical Branch furosemide 2020-0 Yes [id number] 40mg Take 1 [facility] 40 mg 2-25 tablet by ity of tablet 00:00: mouth [place] 00 every Medical morning Branch and evening. apixaban 5 2020-0 Yes 1358 5mg Take 1 Unive rs mg tablet 2-25 tablet by ity o f 00:00: mouth 2 [place] 00 (two) Medical times Branch daily. Indication s: atrial fibrillati on KCL 20 mEq 2020-0 Yes [id number] 20meq Take 1 [facility] tablet 2-25 tablet by ity of 00:00: mouth [place] 00 daily. Medical Branch furosemide 2020-0 Yes [id number] 40mg Take 1 [facility] 40 mg 2-25 tablet by ity of tablet 00:00: mouth [place] 00 every Medical morning Branch and evening. apixaban 5 2020-0 Yes 1358 5mg Take 1 Un[facility] rs mg tablet 2-25 tablet by ity o f 00:00: mouth 2 [place] 00 (two) Medical times Branch daily. Indication s: atrial fibrillati on KCL 20 mEq 2020-0 Yes [id number] 20meq Take 1 [facility] tablet 2-25 tablet by ity of 00:00: mouth [place] 00 daily. Medical Branch furosemide 2020-0 Yes [id number] 40mg Take 1 [facility] 40 mg 2-25 tablet by ity of tablet 00:00: mouth [place] 00 every Medical morning Branch and evening. apixaban 5 2020-0 Yes 1358 5mg Take 1 Unive rs mg tablet 2-25 tablet by ity o f 00:00: mouth 2 [place] 00 (two) Medical times Branch daily. Indication s: atrial fibrillati on KCL 20 mEq 2020-0 Yes [id number] 20meq Take 1 [facility] tablet 2-25 tablet by ity of 00:00: mouth [place] 00 daily. Medical Branch furosemide 2020-0 Yes [id number] 40mg Take 1 [facility] 40 mg 2-25 tablet by ity of tablet 00:00: mouth [place] 00 every Medical morning Branch and evening. apixaban 5 2020-0 Yes 1358 5mg Take 1 Un[facility] rs mg tablet 2-25 tablet by ity o f 00:00: mouth 2 [place] 00 (two) Medical times Branch daily. Indication s: atrial fibrillati on KCL 20 mEq 2020-0 Yes [id number] 20meq Take 1 [facility] tablet 2-25 tablet by ity of 00:00: mouth [place] 00 daily. Medical Branch furosemide 2020-0 Yes [id number] 40mg Take 1 [facility] 40 mg 2-25 tablet by ity of tablet 00:00: mouth [place] 00 every Medical morning Branch and evening. apixaban 5 2020-0 Yes 1358 5mg Take 1 Un[facility] rs mg tablet 2-25 tablet by ity o f 00:00: mouth 2 [place] 00 (two) Medical times Branch daily. Indication s: atrial fibrillati on KCL 20 mEq 2020-0 Yes [id number] 20meq Take 1 [facility] tablet 2-25 tablet by ity of 00:00: mouth [place] 00 daily. Medical Branch furosemide 2020-0 Yes [id number] 40mg Take 1 [facility] 40 mg 2-25 tablet by ity of tablet 00:00: mouth [place] 00 every Medical morning Branch and evening. apixaban 5 2020-0 Yes 1358 5mg Take 1 Un[facility] rs mg tablet 2-25 tablet by ity o f 00:00: mouth 2 [place] 00 (two) Medical times Branch daily. Indication s: atrial fibrillati on KCL 20 mEq 2020-0 Yes [id number] 20meq Take 1 [facility] tablet 2-25 tablet by ity of 00:00: mouth [place] 00 daily. Medical Branch furosemide 2020-0 Yes [id number] 40mg Take 1 [facility] 40 mg 2-25 tablet by ity of tablet 00:00: mouth [place] 00 every Medical morning Branch and evening. apixaban 5 2020-0 Yes 1358 5mg Take 1 Un[facility] rs mg tablet 2-25 tablet by ity o f 00:00: mouth 2 [place] 00 (two) Medical times Branch daily. Indication s: atrial fibrillati on KCL 20 mEq 2020-0 Yes [id number] 20meq Take 1 [facility] tablet 2-25 tablet by ity of 00:00: mouth [place] 00 daily. Medical Branch furosemide 2020-0 Yes [id number] 40mg Take 1 [facility] 40 mg 2-25 tablet by ity of tablet 00:00: mouth [place] 00 every Medical morning Branch and evening. apixaban 5 2020-0 Yes 1358 5mg Take 1 [facility] rs mg tablet 2-25 tablet by ity o f 00:00: mouth 2 [place] 00 (two) Medical times Branch daily. Indication s: atrial fibrillati on KCL 20 mEq 2020-0 Yes [id number] 20meq Take 1 [facility] tablet 2-25 tablet by ity of 00:00: mouth [place] 00 daily. Medical Branch furosemide 2020-0 Yes [id number] 40mg Take 1 [facility] 40 mg 2-25 tablet by ity of tablet 00:00: mouth [place] 00 every Medical morning Branch and evening. apixaban 5 2020-0 Yes 1358 5mg Take 1 [facility] rs mg tablet 2-25 tablet by ity o f 00:00: mouth 2 [place] 00 (two) Medical times Branch daily. Indication s: atrial fibrillati on KCL 20 mEq 2020-0 Yes [id number] 20meq Take 1 [facility] tablet 2-25 tablet by ity of 00:00: mouth [place] 00 daily. Medical Branch furosemide 2020-0 Yes [id number] 40mg Take 1 [facility] 40 mg 2-25 tablet by ity of tablet 00:00: mouth [place] 00 every Medical morning Branch and evening. apixaban 5 2020-0 Yes 1358 5mg Take 1 Un[facility] rs mg tablet 2-25 tablet by ity o f 00:00: mouth 2 [place] 00 (two) Medical times Branch daily. Indication s: atrial fibrillati on KCL 20 mEq 2020-0 Yes [id number] 20meq Take 1 [facility] 00:00: mouth [place] 00 daily. [facility] furosemide 2020-0 Yes [id number] 40mg Take 1 [facility] 40 mg 2-25 tablet by [facility] tablet 00:00: mouth [place] 00 every Medical morning Branch and evening. apixaban 5 2020-0 Yes 1358 5mg Take 1 [facility] tablet 2-25 tablet by [facility] f 00:00: mouth 2 [place] 00 (two) Medical times Branch daily. Indication s: atrial fibrillati on KCL 20 mEq 2020-0 Yes [id number] 20meq Take 1 [facility] tablet 2-25 tablet by [facility] 00:00: mouth [place] 00 daily. [facility] furosemide 2020-0 Yes [id number] 40mg Take 1 [facility] 40 mg 2-25 tablet by [facility] tablet 00:00: mouth [place] 00 every Medical morning Branch and evening. apixaban 5 2020-0 Yes 1358 5mg Take 1 [facility] mg tablet 2-25 tablet by [facility] f 00:00: mouth 2 [place] 00 (two) Medical times Branch daily. Indication s: atrial fibrillati on KCL 20 mEq 2020-0 Yes [id number] 20meq Take 1 [facility] tablet 2-25 tablet by [facility] 00:00: mouth [place] 00 daily. [facility] furosemide 2020-0 Yes [id number] 40mg Take 1 [facility] 40 mg 2-25 tablet by [facility] tablet 00:00: mouth [place] 00 every Medical morning Branch and evening. apixaban 5 2020-0 Yes 1358 5mg Take 1 [facility] mg tablet 2-25 tablet by [facility] f 00:00: mouth 2 [place] 00 (two) Medical times Branch daily. Indication s: atrial fibrillati on KCL 20 mEq 2020-0 Yes [id number] 20meq Take 1 [facility] tablet 2-25 tablet by [facility] 00:00: mouth [place] 00 daily. [facility] furosemide 2020-0 Yes [id number] 40mg Take 1 [facility] 40 mg 2-25 tablet by [facility] tablet 00:00: mouth [place] 00 every Medical morning Branch and evening. apixaban 5 2020-0 Yes 1358 5mg Take 1 [facility] mg tablet 2-25 tablet by [facility] f 00:00: mouth 2 [place] 00 (two) Medical times Branch daily. Indication s: atrial fibrillati on KCL 20 mEq 2020-0 Yes [id number] 20meq Take 1 [facility] tablet 2-25 tablet by [facility] 00:00: mouth [place] 00 daily. [facility] furosemide 2020-0 Yes [id number] 40mg Take 1 [facility] 40 mg 2-25 tablet by [facility] tablet 00:00: mouth [place] 00 every Medical morning Branch and evening. apixaban 5 2020-0 Yes 1358 5mg Take 1 [facility] mg tablet 2-25 tablet by [facility] f 00:00: mouth 2 [place] 00 (two) Medical times Branch daily. Indication s: atrial fibrillati on KCL 20 mEq 2020-0 Yes [id number] 20meq Take 1 [facility] tablet 2-25 tablet by [facility] 00:00: mouth [place] 00 daily. [facility] furosemide 2020-0 Yes [id number] 40mg Take 1 [facility] 40 mg 2-25 tablet by [facility] tablet 00:00: mouth [place] 00 every Medical morning Branch and evening. apixaban 5 2020-0 Yes 1358 5mg Take 1 [facility] mg tablet 2-25 tablet by [facility] f 00:00: mouth 2 [place] 00 (two) Medical times [facility] daily. Indication s: atrial fibrillati on KCL 20 mEq 2020-0 Yes [id number] 20meq Take 1 [facility] tablet 2-25 tablet by [facility] 00:00: mouth [place] 00 daily. [facility] furosemide 2020-0 Yes [id number] 40mg Take 1 [facility] 40 mg 2-25 tablet by [facility] tablet 00:00: mouth [place] 00 every Medical morning Branch and evening. apixaban 5 2020-0 Yes 1358 5mg Take 1 [facility] mg tablet 2-25 tablet by [facility] f 00:00: mouth 2 [place] 00 (two) Medical times [facility] daily. Indication s: atrial fibrillati on KCL 20 mEq 2020-0 Yes [id number] 20meq Take 1 [facility] tablet 2-25 tablet by [facility] 00:00: mouth [place] 00 daily. [facility] furosemide 2020-0 Yes [id number] 40mg Take 1 [facility] 40 mg 2-25 tablet by [facility] tablet 00:00: mouth [place] 00 every Medical morning Branch and evening. apixaban 5 2020-0 Yes 1358 5mg Take 1 [facility] mg tablet 2-25 tablet by [facility] f 00:00: mouth 2 [place] 00 (two) Medical times Branch daily. Indication s: atrial fibrillati on KCL 20 mEq 2020-0 Yes [id number] 20meq Take 1 [facility] tablet 2-25 tablet by [facility] 00:00: mouth [place] 00 daily. [facility] furosemide 2020-0 Yes [id number] 40mg Take 1 [facility] 40 mg 2-25 tablet by [facility] tablet 00:00: mouth [place] 00 every Medical morning Branch and evening. apixaban 5 2020-0 Yes 1358 5mg Take 1 [facility] mg tablet 2-25 tablet by [facility] f 00:00: mouth 2 (two) Medical times Branch daily. Indication s: atrial fibrillati on KCL 20 mEq 2020-0 Yes [id number] 20meq Take 1 [facility] tablet 2-25 tablet by [facility] 00:00: mouth [place] 00 daily. [facility] furosemide 2020-0 Yes [id number] 40mg Take 1 [facility] 40 mg 2-25 tablet by [facility] tablet 00:00: mouth [place] 00 every Medical morning Branch and evening. apixaban 5 2020-0 Yes 1358 5mg Take 1 [facility] mg tablet 2-25 tablet by [facility] f 00:00: mouth 2 [place] 00 (two) Medical times Branch daily. Indication s: atrial fibrillati on KCL 20 mEq 2020-0 Yes [id number] 20meq Take 1 [facility] tablet 2-25 tablet by [facility] 00:00: mouth [place] 00 daily. [facility] furosemide 2020-0 Yes [id number] 40mg Take 1 [facility] 40 mg 2-25 tablet by [facility] tablet 00:00: mouth [place] 00 every Medical morning Branch and evening. apixaban 5 2020-0 Yes 1358 5mg Take 1 [facility] mg tablet 2-25 tablet by [facility] f 00:00: mouth 2 [place] 00 (two) Medical times Branch daily. Indication s: atrial fibrillati on KCL 20 mEq 2020-0 Yes [id number] 20meq Take 1 [facility] tablet 2-25 tablet by [facility] 00:00: mouth [place] 00 daily. [facility] furosemide 2020-0 Yes [id number] 40mg Take 1 [facility] 40 mg 2-25 tablet by [facility] tablet 00:00: mouth [place] 00 every Medical morning Branch and evening. apixaban 5 2020-0 Yes 1358 5mg Take 1 [facility] mg tablet 2-25 tablet by [facility] f 00:00: mouth 2 [place] 00 (two) Medical times Branch daily. Indication s: atrial fibrillati on KCL 20 mEq 2020-0 Yes [id number] 20meq Take 1 [facility] tablet 2-25 tablet by [facility] 00:00: mouth [place] 00 daily. [facility] furosemide 2020-0 Yes [id number] 40mg Take 1 [facility] 40 mg 2-25 tablet by [facility] tablet 00:00: mouth [place] 00 every Medical morning Branch and evening. apixaban 5 2020-0 Yes 1358 5mg Take 1 [facility] mg tablet 2-25 tablet by [facility] f 00:00: mouth 2 [place] 00 (two) Medical times Branch daily. Indication s: atrial fibrillati on KCL 20 mEq 2020-0 Yes [id number] 20meq Take 1 [facility] tablet 2-25 tablet by [facility] 00:00: mouth [place] 00 daily. [facility] furosemide 2020-0 Yes [id number] 40mg Take 1 [facility] 40 mg 2-25 tablet by [facility] tablet 00:00: mouth [place] 00 every Medical morning Branch and evening. apixaban 5 2020-0 Yes 1358 5mg Take 1 [facility] mg tablet 2-25 tablet by [facility] f 00:00: mouth 2 [place] 00 (two) Medical times Branch daily. Indication s: atrial fibrillati on KCL 20 mEq 2020-0 Yes [id number] 20meq Take 1 [facility] tablet 2-25 tablet by [facility] 00:00: mouth [place] 00 daily. [facility] furosemide 2020-0 Yes [id number] 40mg Take 1 [facility] 40 mg 2-25 tablet by [facility] tablet 00:00: mouth [place] 00 every Medical morning Branch and evening. apixaban 5 2020-0 Yes 1358 5mg Take 1 [facility] mg tablet 2-25 tablet by [facility] f 00:00: mouth 2 [place] 00 (two) Medical times Branch daily. Indication s: atrial fibrillati on KCL 20 mEq 2020-0 Yes [id number] 20meq Take 1 [facility] tablet 2-25 tablet by [facility] 00:00: mouth [place] 00 daily. [facility] furosemide 2020-0 Yes [id number] 40mg Take 1 [facility] 40 mg 2-25 tablet by [facility] tablet 00:00: mouth [place] 00 every Medical morning Branch and evening. apixaban 5 2020-0 Yes 1358 5mg Take 1 [facility] mg tablet 2-25 tablet by [facility] f 00:00: mouth 2 [place] 00 (two) Medical times Branch daily. Indication s: atrial fibrillati on KCL 20 mEq 2020-0 Yes [id number] 20meq Take 1 [facility] tablet 2-25 tablet by [facility] 00:00: mouth [place] 00 daily. [facility] furosemide 2020-0 Yes [id number] 40mg Take 1 [facility] 40 mg 2-25 tablet by [facility] tablet 00:00: mouth [place] 00 every Medical morning Branch and evening. apixaban 5 2020-0 Yes 1358 5mg Take 1 [facility] mg tablet 2-25 tablet by [facility] f 00:00: mouth 2 [place] 00 (two) Medical times Branch daily. Indication s: atrial fibrillati on KCL 20 mEq 2020-0 Yes [id number] 20meq Take 1 [facility] tablet 2-25 tablet by [facility] 00:00: mouth [place] 00 daily. [facility] furosemide 2020-0 Yes [id number] 40mg Take 1 [facility] 40 mg 2-25 tablet by [facility] tablet 00:00: mouth [place] 00 every Medical morning Branch and evening. apixaban 5 2020-0 Yes 1358 5mg Take 1 [facility] mg tablet 2-25 tablet by [facility] f 00:00: mouth 2 [place] 00 (two) Medical times Branch daily. Indication s: atrial fibrillati on KCL 20 mEq 2020-0 Yes [id number] 20meq Take 1 [facility] tablet 2-25 tablet by [facility] 00:00: mouth [place] 00 daily. [facility] furosemide 2020-0 Yes [id number] 40mg Take 1 [facility] 40 mg 2-25 tablet by [facility] tablet 00:00: mouth [place] 00 every Medical morning Branch and evening. apixaban 5 2020-0 Yes 1358 5mg Take 1 [facility] mg tablet 2-25 tablet by [facility] f 00:00: mouth 2 [place] 00 (two) Medical times Branch daily. Indication s: atrial fibrillati on KCL 20 mEq 2020-0 Yes [id number] 20meq Take 1 [facility] tablet 2-25 tablet by [facility] 00:00: mouth [place] 00 daily. [facility] furosemide 2020-0 Yes [id number] 40mg Take 1 [facility] 40 mg 2-25 tablet by [facility] tablet 00:00: mouth [place] 00 every Medical morning Branch and evening. apixaban 5 2020-0 Yes 1358 5mg Take 1 [facility] mg tablet 2-25 tablet by [facility] f 00:00: mouth 2 [place] 00 (two) Medical times Branch daily. Indication s: atrial fibrillati on KCL 20 mEq 2020-0 Yes [id number] 20meq Take 1 [facility] tablet 2-25 tablet by [facility] 00:00: mouth [place] 00 daily. [facility] furosemide 2020-0 Yes [id number] 40mg Take 1 [facility] 40 mg 2-25 tablet by [facility] tablet 00:00: mouth [place] 00 every Medical morning Branch and evening. apixaban 5 2020-0 Yes 1358 5mg Take 1 [facility] mg tablet 2-25 tablet by [facility] f 00:00: mouth 2 [place] 00 (two) Medical times Branch daily. Indication s: atrial fibrillati on KCL 20 mEq 2020-0 Yes [id number] 20meq Take 1 [facility] tablet 2-25 tablet by [facility] 00:00: mouth [place] 00 daily. [facility] furosemide 2020-0 Yes [id number] 40mg Take 1 [facility] 40 mg 2-25 tablet by [facility] tablet 00:00: mouth [place] 00 every Medical morning Branch and evening. apixaban 5 2020-0 Yes 1358 5mg Take 1 [facility] mg tablet 2-25 tablet by [facility] f 00:00: mouth 2 [place] 00 (two) Medical times Branch daily. Indication s: atrial fibrillati on KCL 20 mEq 2020-0 Yes [id number] 20meq Take 1 [facility] tablet 2-25 tablet by [facility] 00:00: mouth [place] 00 daily. [facility] furosemide 2020-0 Yes [id number] 40mg Take 1 [facility] 40 mg 2-25 tablet by [facility] tablet 00:00: mouth [place] 00 every Medical morning Branch and evening. apixaban 5 2020-0 Yes 1358 5mg Take 1 [facility] mg tablet 2-25 tablet by [facility] f 00:00: mouth 2 [place] 00 (two) Medical times Branch daily. Indication s: atrial fibrillati on KCL 20 mEq 2020-0 Yes [id number] 20meq Take 1 [facility] tablet 2-25 tablet by [facility] 00:00: mouth [place] 00 daily. [facility] furosemide 2020-0 Yes [id number] 40mg Take 1 [facility] 40 mg 2-25 tablet by [facility] tablet 00:00: mouth [place] 00 every Medical morning Branch and evening. apixaban 5 2020-0 Yes 1358 5mg Take 1 [facility] mg tablet 2-25 tablet by [facility] f 00:00: mouth 2 [place] 00 (two) Medical times Branch daily. Indication s: atrial fibrillati on KCL 20 mEq 2020-0 Yes [id number] 20meq Take 1 [facility] tablet 2-25 tablet by [facility] 00:00: mouth [place] 00 daily. [facility] furosemide 2020-0 Yes [id number] 40mg Take 1 [facility] 40 mg 2-25 tablet by [facility] tablet 00:00: mouth [place] 00 every Medical morning Branch and evening. apixaban 5 2020-0 Yes 1358 5mg Take 1 [facility] mg tablet 2-25 tablet by [facility] f 00:00: mouth 2 [place] 00 (two) Medical times Branch daily. Indication s: atrial fibrillati on KCL 20 mEq 2020-0 Yes [id number] 20meq Take 1 [facility] tablet 2-25 tablet by [facility] 00:00: mouth [place] 00 daily. [facility] furosemide 2020-0 Yes [id number] 40mg Take 1 [facility] 40 mg 2-25 tablet by [facility] tablet 00:00: mouth [place] 00 every Medical morning Branch and evening. apixaban 5 2020-0 Yes 1358 5mg Take 1 [facility] mg tablet 2-25 tablet by [facility] o f 00:00: mouth 2 [place] 00 (two) Medical times Branch daily. Indication s: atrial fibrillati on KCL 20 mEq 2020-0 Yes [id number] 20meq Take 1 [facility] tablet 2-25 tablet by [facility] 00:00: mouth [place] 00 daily. [facility] furosemide 2020-0 Yes [id number] 40mg Take 1 [facility] 40 mg 2-25 tablet by [facility] tablet 00:00: mouth [place] 00 every Medical morning Branch and evening. apixaban 5 2020-0 Yes 1358 5mg Take 1 [facility] mg tablet 2-25 tablet by [facility] f 00:00: mouth 2 [place] 00 (two) Medical times Branch daily. Indication s: atrial fibrillati on KCL 20 mEq 2020-0 Yes [id number] 20meq Take 1 [facility] tablet 2-25 tablet by [facility] 00:00: mouth [place] 00 daily. [facility] furosemide 2020-0 Yes [id number] 40mg Take 1 [facility] 40 mg 2-25 tablet by [facility] tablet 00:00: mouth [place] 00 every Medical morning Branch and evening. apixaban 5 2020-0 Yes 1358 5mg Take 1 [facility] mg tablet 2-25 tablet by [facility] f 00:00: mouth 2 [place] 00 (two) Medical times Branch daily. Indication s: atrial fibrillati on KCL 20 mEq 2020-0 Yes [id number] 20meq Take 1 [facility] tablet 2-25 tablet by [facility] 00:00: mouth [place] 00 daily. [facility] furosemide 2020-0 Yes [id number] 40mg Take 1 [facility] 40 mg 2-25 tablet by [facility] tablet 00:00: mouth [place] 00 every Medical morning Branch and evening. apixaban 5 2020-0 Yes 1358 5mg Take 1 [facility] mg tablet 2-25 tablet by [facility] f 00:00: mouth 2 [place] (two) Medical times Branch daily. Indication s: atrial fibrillati on KCL 20 mEq 2020-0 Yes [id number] 20meq Take 1 [facility] tablet 2-25 tablet by [facility] 00:00: mouth [place] 00 daily. [facility] furosemide 2020-0 Yes [id number] 40mg Take 1 [facility] 40 mg 2-25 tablet by [facility] tablet 00:00: mouth [place] 00 every Medical morning Branch and evening. apixaban 5 2020-0 Yes 1358 5mg Take 1 [facility] mg tablet 2-25 tablet by [facility] f 00:00: mouth 2 [place] 00 (two) Medical times Branch daily. Indication s: atrial fibrillati on KCL 20 mEq 2020-0 Yes [id number] 20meq Take 1 [facility] tablet 2-25 tablet by [facility] 00:00: mouth [place] 00 daily. [facility] furosemide 2020-0 Yes [id number] 40mg Take 1 [facility] 40 mg 2-25 tablet by [facility] tablet 00:00: mouth [place] 00 every Medical morning Branch and evening. apixaban 5 2020-0 Yes 1358 5mg Take 1 [facility] mg tablet 2-25 tablet by [facility] f 00:00: mouth 2 [place] 00 (two) Medical times [facility] daily. Indication s: atrial fibrillati on KCL 20 mEq 2020-0 Yes [id number] 20meq Take 1 [facility] tablet 2-25 tablet by [facility] 00:00: mouth [place] 00 daily. [facility] furosemide 2020-0 Yes [id number] 40mg Take 1 [facility] 40 mg 2-25 tablet by [facility] tablet 00:00: mouth [place] 00 every Medical morning Branch and evening. apixaban 5 2020-0 Yes 1358 5mg Take 1 [facility] mg tablet 2-25 tablet by [facility] f 00:00: mouth 2 [place] 00 (two) Medical times [facility] daily. Indication s: atrial fibrillati on KCL 20 mEq 2020-0 Yes [id number] 20meq Take 1 [facility] tablet 2-25 tablet by [facility] 00:00: mouth [place] 00 daily. [facility] furosemide 2020-0 Yes [id number] 40mg Take 1 [facility] 40 mg 2-25 tablet by [facility] tablet 00:00: mouth [place] 00 every Medical morning Branch and evening. apixaban 5 2020-0 Yes 1358 5mg Take 1 [facility] mg tablet 2-25 tablet by [facility] f 00:00: mouth 2 [place] 00 (two) Medical times Branch daily. Indication s: atrial fibrillati on KCL 20 mEq 2020-0 Yes [id number] 20meq Take 1 [facility] tablet 2-25 tablet by [facility] 00:00: mouth [place] 00 daily. [facility] furosemide 2020-0 Yes [id number] 40mg Take 1 [facility] 40 mg 2-25 tablet by [facility] tablet 00:00: mouth [place] 00 every Medical morning Branch and evening. apixaban 5 2020-0 Yes 1358 5mg Take 1 [facility] mg tablet 2-25 tablet by [facility] o f 00:00: mouth 2 [place] 00 (two) Medical times Branch daily. Indication s: atrial fibrillati on KCL 20 mEq 2020-0 Yes [id number] 20meq Take 1 [facility] tablet 2-25 tablet by [facility] 00:00: mouth [place] 00 daily. [facility] furosemide 2020-0 Yes [id number] 40mg Take 1 [facility] 40 mg 2-25 tablet by [facility] tablet 00:00: mouth [place] 00 every Medical morning Branch and evening. apixaban 5 2020-0 Yes 1358 5mg Take 1 [facility] mg tablet 2-25 tablet by [facility] o f 00:00: mouth 2 [place] 00 (two) Medical times [facility] daily. Indication s: atrial fibrillati on KCL 20 mEq 2020-0 Yes [id number] 20meq Take 1 [facility] tablet 2-25 tablet by [facility] 00:00: mouth [place] 00 daily. [facility] furosemide 2020-0 Yes [id number] 40mg Take 1 [facility] 40 mg 2-25 tablet by [facility] tablet 00:00: mouth [place] 00 every Medical morning Branch and evening. apixaban 5 2020-0 Yes 1358 5mg Take 1 [facility] mg tablet 2-25 tablet by [facility] f 00:00: mouth 2 [place] 00 (two) Medical times [facility] daily. Indication s: atrial fibrillati on KCL 20 mEq 2020-0 Yes [id number] 20meq Take 1 [facility] tablet 2-25 tablet by [facility] 00:00: mouth [place] 00 daily. [facility] furosemide 2020-0 Yes [id number] 40mg Take 1 [facility] 40 mg 2-25 tablet by [facility] tablet 00:00: mouth [place] 00 every Medical morning Branch and evening. apixaban 5 2020-0 Yes 1358 5mg Take 1 [facility] mg tablet 2-25 tablet by [facility] f 00:00: mouth 2 [place] 00 (two) Medical times Branch daily. Indication s: atrial fibrillati on KCL 20 mEq 2020-0 Yes [id number] 20meq Take 1 [facility] tablet 2-25 tablet by [facility] 00:00: mouth [place] 00 daily. [facility] furosemide 2020-0 Yes [id number] 40mg Take 1 [facility] 40 mg 2-25 tablet by [facility] tablet 00:00: mouth [place] 00 every Medical morning Branch and evening. apixaban 5 2020-0 Yes 1358 5mg Take 1 [facility] mg tablet 2-25 tablet by [facility] o f 00:00: mouth 2 [place] 00 (two) Medical times Branch daily. Indication s: atrial fibrillati on KCL 20 mEq 2020-0 Yes [id number] 20meq Take 1 [facility] tablet 2-25 tablet by [facility] 00:00: mouth [place] 00 daily. [facility] furosemide 2020-0 Yes [id number] 40mg Take 1 [facility] 40 mg 2-25 tablet by [facility] tablet 00:00: mouth [place] 00 every Medical morning Branch and evening. apixaban 5 2020-0 Yes 1358 5mg Take 1 [facility] mg tablet 2-25 tablet by [facility] f 00:00: mouth 2 [place] 00 (two) Medical times [facility] daily. Indication s: atrial fibrillati on KCL 20 mEq 2020-0 Yes [id number] 20meq Take 1 [facility] tablet 2-25 tablet by [facility] 00:00: mouth [place] 00 daily. [facility] furosemide 2020-0 Yes [id number] 40mg Take 1 [facility] 40 mg 2-25 tablet by [facility] tablet 00:00: mouth [place] 00 every Medical morning Branch and evening. apixaban 5 2020-0 Yes 1358 5mg Take 1 [facility] mg tablet 2-25 tablet by [facility] o f 00:00: mouth 2 [place] 00 (two) Medical times Branch daily. Indication s: atrial fibrillati on KCL 20 mEq 2020-0 Yes [id number] 20meq Take 1 [facility] tablet 2-25 tablet by [facility] 00:00: mouth [place] 00 daily. [facility] furosemide 2020-0 Yes [id number] 40mg Take 1 [facility] 40 mg 2-25 tablet by [facility] tablet 00:00: mouth [place] 00 every Medical morning Branch and evening. apixaban 5 2020-0 Yes 1358 5mg Take 1 [facility] mg tablet 2-25 tablet by [facility] f 00:00: mouth 2 [place] 00 (two) Medical times Branch daily. Indication s: atrial fibrillati on KCL 20 mEq 2020-0 Yes [id number] 20meq Take 1 [facility] tablet 2-25 tablet by [facility] 00:00: mouth [place] 00 daily. [facility] digoxin 125 2020-0 Yes [id number] 125ug Take 1 [facility] mcg (0.125 2-25 tablet by [facility] mg) tablet 00:00: mouth [place] 00 daily. [facility] furosemide 2020-0 Yes [id number] 40mg Take 1 [facility] 40 mg 2-25 tablet by [facility] tablet 00:00: mouth [place] 00 every Medical morning Branch and evening. furosemide 2020-0 Yes [id number] 40mg Take 1 [facility] 40 mg 2-25 tablet by [facility] tablet 00:00: mouth [place] 00 every Medical morning Branch and evening. apixaban 5 2020-0 Yes 1358 5mg Take 1 [facility] mg tablet 2-25 tablet by [facility] f 00:00: mouth 2 [place] 00 (two) Medical times [facility] daily. Indication s: atrial fibrillati on KCL 20 mEq 2020-0 Yes [id number] 20meq Take 1 [facility] tablet 2-25 tablet by [facility] 00:00: mouth [place] 00 daily. [facility] sotalol 120 2020-0 Yes [id number] 120mg Take 1 [facility] mg tablet 2-25 tablet by [facility] o f 00:00: mouth [place] 00 every 12 Medical (twelve) Branch hours. apixaban 5 2020-0 Yes 1358 5mg Take 1 [facility] mg tablet 2-25 tablet by [facility] f 00:00: mouth 2 [place] 00 (two) Medical times Branch daily. Indication s: atrial fibrillati on KCL 20 mEq 2020-0 Yes [id number] 20meq Take 1 [facility] tablet 2-25 tablet by [facility] 00:00: mouth [place] 00 daily. [facility] furosemide 2020-0 Yes [id number] 40mg Take 1 [facility] 40 mg 2-25 tablet by [facility] tablet 00:00: mouth [place] 00 every Medical morning Branch and evening. apixaban 5 2020-0 Yes 1358 5mg Take 1 [facility] mg tablet 2-25 tablet by [facility] o f 00:00: mouth 2 [place] 00 (two) Medical times [facility] daily. Indication s: atrial fibrillati on KCL 20 mEq 2020-0 Yes [id number] 20meq Take 1 [facility] tablet 2-25 tablet by [facility] 00:00: mouth [place] 00 daily. [facility] furosemide 2020-0 Yes [id number] 40mg Take 1 [facility] 40 mg 2-25 tablet by [facility] tablet 00:00: mouth [place] 00 every Medical morning Branch and evening. apixaban 5 2020-0 Yes 1358 5mg Take 1 [facility] mg tablet 2-25 tablet by [facility] o f 00:00: mouth 2 [place] 00 (two) Medical times [facility] daily. Indication s: atrial fibrillati on KCL 20 mEq 2020-0 Yes [id number] 20meq Take 1 [facility] tablet 2-25 tablet by [facility] 00:00: mouth [place] 00 daily. [facility] furosemide 2020-0 Yes [id number] 40mg Take 1 [facility] 40 mg 2-25 tablet by [facility] tablet 00:00: mouth [place] 00 every Medical morning Branch and evening. apixaban 5 2020-0 Yes 1358 5mg Take 1 [facility] mg tablet 2-25 tablet by [facility] o f 00:00: mouth 2 [place] 00 (two) Medical times [facility] daily. Indication s: atrial fibrillati on KCL 20 mEq 2020-0 Yes [id number] 20meq Take 1 [facility] tablet 2-25 tablet by [facility] 00:00: mouth [place] 00 daily. [facility] furosemide 2020-0 Yes [id number] 40mg Take 1 [facility] 40 mg 2-25 tablet by [facility] tablet 00:00: mouth [place] 00 every Medical morning Branch and evening. apixaban 5 2020-0 Yes 1358 5mg Take 1 [facility] mg tablet 2-25 tablet by [facility] o f 00:00: mouth 2 [place] 00 (two) Medical times Branch daily. Indication s: atrial fibrillati on KCL 20 mEq 2020-0 Yes [id number] 20meq Take 1 [facility] tablet 2-25 tablet by [facility] 00:00: mouth [place] 00 daily. [facility] furosemide 2020-0 Yes [id number] 40mg Take 1 [facility] 40 mg 2-25 tablet by [facility] tablet 00:00: mouth [place] 00 every Medical morning Branch and evening. apixaban 5 2020-0 Yes 1358 5mg Take 1 [facility] mg tablet 2-25 tablet by [facility] o f 00:00: mouth 2 [place] 00 (two) Medical times Branch daily. Indication s: atrial fibrillati on KCL 20 mEq 2020-0 Yes [id number] 20meq Take 1 [facility] tablet 2-25 tablet by [facility] 00:00: mouth [place] 00 daily. [facility] furosemide 2020-0 Yes [id number] 40mg Take 1 [facility] 40 mg 2-25 tablet by [facility] tablet 00:00: mouth [place] 00 every Medical morning Branch and evening. apixaban 5 2020-0 Yes 1358 5mg Take 1 [facility] mg tablet 2-25 tablet by [facility] o f 00:00: mouth 2 [place] 00 (two) Medical times Branch daily. Indication s: atrial fibrillati on KCL 20 mEq 2020-0 Yes [id number] 20meq Take 1 [facility] tablet 2-25 tablet by [facility] 00:00: mouth [place] 00 daily. [facility] furosemide 2020-0 Yes [id number] 40mg Take 1 [facility] 40 mg 2-25 tablet by [facility] tablet 00:00: mouth [place] 00 every Medical morning Branch and evening. apixaban 5 2020-0 Yes 1358 5mg Take 1 [facility] mg tablet 2-25 tablet by [facility] o f 00:00: mouth 2 [place] 00 (two) Medical times Branch daily. Indication s: atrial fibrillati on KCL 20 mEq 2020-0 Yes [id number] 20meq Take 1 [facility] tablet 2-25 tablet by [facility] 00:00: mouth [place] 00 daily. [facility] furosemide 2020-0 Yes [id number] 40mg Take 1 [facility] 40 mg 2-25 tablet by [facility] tablet 00:00: mouth [place] 00 every Medical morning Branch and evening. apixaban 5 2020-0 Yes 1358 5mg Take 1 [facility] mg tablet 2-25 tablet by [facility] o f 00:00: mouth 2 [place] 00 (two) Medical times Branch daily. Indication s: atrial fibrillati on KCL 20 mEq 2020-0 Yes [id number] 20meq Take 1 [facility] tablet 2-25 tablet by [facility] 00:00: mouth [place] 00 daily. [facility] furosemide 2020-0 Yes [id number] 40mg Take 1 [facility] 40 mg 2-25 tablet by [facility] tablet 00:00: mouth [place] 00 every Medical morning Branch and evening. apixaban 5 2020-0 Yes 1358 5mg Take 1 [facility] mg tablet 2-25 tablet by [facility] o f 00:00: mouth 2 [place] 00 (two) Medical times Branch daily. Indication s: atrial fibrillati on KCL 20 mEq 2020-0 Yes [id number] 20meq Take 1 [facility] tablet 2-25 tablet by [facility] 00:00: mouth [place] 00 daily. [facility] furosemide 2020-0 Yes [id number] 40mg Take 1 [facility] 40 mg 2-25 tablet by [facility] tablet 00:00: mouth [place] 00 every Medical morning Branch and evening. apixaban 5 2020-0 Yes 1358 5mg Take 1 [facility] mg tablet 2-25 tablet by [facility] o f 00:00: mouth 2 [place] 00 (two) Medical times Branch daily. Indication s: atrial fibrillati on KCL 20 mEq 2020-0 Yes [id number] 20meq Take 1 [facility] tablet [facility] tablet [facility] 00:00: mouth [place] 00 daily. [facility] furosemide 2020-0 Yes [id number] 40mg Take 1 [facility] 40 mg 2-25 tablet by [facility] tablet 00:00: mouth [place] 00 every Medical morning Branch and evening. apixaban 5 2020-0 Yes 1358 5mg Take 1 [facility] mg tablet 2-25 tablet by [facility] f 00:00: mouth 2 [place] 00 (two) Medical times [facility] daily. Indication s: atrial fibrillati on KCL 20 mEq 2020-0 Yes [id number] 20meq Take 1 [facility] tablet 2-25 tablet by [facility] 00:00: mouth [place] 00 daily. [facility] furosemide 2020-0 Yes [id number] 40mg Take 1 [facility] 40 mg 2-25 tablet by [facility] tablet 00:00: mouth [place] 00 every Medical morning Branch and evening. apixaban 5 2020-0 Yes 1358 5mg Take 1 [facility] mg tablet 2-25 tablet by [facility] f 00:00: mouth 2 [place] 00 (two) Medical times [facility] daily. Indication s: atrial fibrillati on KCL 20 mEq 2020-0 Yes [id number] 20meq Take 1 [facility] tablet 2-25 tablet by [facility] 00:00: mouth [place] 00 daily. [facility] digoxin 125 2020-0 Yes [id number] 125ug Take 1 [facility] mcg (0.125 2-25 tablet by [facility] mg) tablet 00:00: mouth [place] 00 daily. [facility] furosemide 2020-0 Yes [id number] 40mg Take 1 [facility] 40 mg 2-25 tablet by [facility] tablet 00:00: mouth [place] 00 every Medical morning Branch and evening. apixaban 5 2020-0 Yes 1358 5mg Take 1 [facility] mg tablet 2-25 tablet by [facility] f 00:00: mouth 2 [place] 00 (two) Medical times [facility] daily. Indication s: atrial fibrillati on KCL 20 mEq 2020-0 Yes [id number] 20meq Take 1 [facility] tablet 2-25 tablet by [facility] 00:00: mouth [place] 00 daily. [facility] furosemide 2020-0 Yes [id number] 40mg Take 1 [facility] 40 mg 2-25 tablet by [facility] tablet 00:00: mouth [place] 00 every Medical morning Branch and evening. sotalol 120 2020-0 Yes [id number] 120mg Take 1 [facility] mg tablet 2-25 tablet by [facility] f 00:00: mouth [place] 00 every 12 Medical (twelve) Branch hours. furosemide 2020-0 Yes [id number] 40mg Take 1 [facility] 40 mg 2-25 tablet by [facility] tablet 00:00: mouth [place] 00 every Medical morning Branch and evening. apixaban 5 2020-0 Yes 1358 5mg Take 1 [facility] mg tablet 2-25 tablet by [facility] f 00:00: mouth 2 [place] 00 (two) Medical times [facility] daily. Indication s: atrial fibrillati on KCL 20 mEq 2020-0 Yes [id number] 20meq Take 1 [facility] tablet 2-25 tablet by [facility] 00:00: mouth [place] 00 daily. [facility] apixaban 5 2020-0 Yes 1358 5mg Take 1 [facility] mg tablet 2-25 tablet by [facility] f 00:00: mouth 2 [place] 00 (two) Medical times [facility] daily. Indication s: atrial fibrillati on KCL 20 mEq 2020-0 Yes [id number] 20meq Take 1 [facility] tablet 2-25 tablet by [facility] 00:00: mouth [place] 00 daily. [facility] furosemide 2020-0 Yes [id number] 40mg Take 1 [facility] 40 mg 2-25 tablet by [facility] tablet 00:00: mouth [place] 00 every Medical morning Branch and evening. apixaban 5 2020-0 Yes 1358 5mg Take 1 [facility] mg tablet 2-25 tablet by [facility] f 00:00: mouth 2 [place] 00 (two) Medical times [facility] daily. Indication s: atrial fibrillati on KCL 20 mEq 2020-0 Yes [id number] 20meq Take 1 [facility] tablet 2-25 tablet by [facility] 00:00: mouth [place] 00 daily. [facility] furosemide 2020-0 Yes [id number] 40mg Take 1 [facility] 40 mg 2-25 tablet by [facility] tablet 00:00: mouth [place] 00 every Medical morning Branch and evening. apixaban 5 2020-0 Yes 1358 5mg Take 1 [facility] mg tablet 2-25 tablet by [facility] f 00:00: mouth 2 [place] 00 (two) Medical times [facility] daily. Indication s: atrial fibrillati on KCL 20 mEq 2020-0 Yes [id number] 20meq Take 1 [facility] tablet 2-25 tablet by [facility] 00:00: mouth [place] 00 daily. [facility] furosemide 2020-0 Yes [id number] 40mg Take 1 [facility] 40 mg 2-25 tablet by [facility] tablet 00:00: mouth [place] 00 every Medical morning Branch and evening. apixaban 5 2020-0 Yes 1358 5mg Take 1 [facility] mg tablet 2-25 tablet by [facility] f 00:00: mouth 2 [place] 00 (two) Medical times [facility] daily. Indication s: atrial fibrillati on KCL 20 mEq 2020-0 Yes [id number] 20meq Take 1 [facility] tablet 2-25 tablet by [facility] 00:00: mouth [place] 00 daily. [facility] digoxin 125 2020-0 Yes [id number] 125ug Take 1 [facility] mcg (0.125 2-25 tablet by [facility] mg) tablet 00:00: mouth [place] 00 daily. [facility] furosemide 2020-0 Yes [id number] 40mg Take 1 [facility] 40 mg 2-25 tablet by [facility] tablet 00:00: mouth [place] 00 every Medical morning Branch and evening. furosemide 2020-0 Yes [id number] 40mg Take 1 [facility] 40 mg 2-25 tablet by [facility] tablet 00:00: mouth [place] 00 every Medical morning Branch and evening. apixaban 5 2020-0 Yes 1358 5mg Take 1 [facility] mg tablet 2-25 tablet by [facility] f 00:00: mouth 2 [place] 00 (two) Medical times [facility] daily. Indication s: atrial fibrillati on KCL 20 mEq 2020-0 Yes [id number] 20meq Take 1 [facility] tablet 2-25 tablet by [facility] 00:00: mouth [place] 00 daily. [facility] sotalol 120 2020-0 Yes [id number] 120mg Take 1 [facility] mg tablet 2-25 tablet by [facility] f 00:00: mouth [place] 00 every 12 Medical (twelve) Branch hours. apixaban 5 2020-0 Yes 1358 5mg Take 1 [facility] mg tablet 2-25 tablet by [facility] f 00:00: mouth 2 [place] 00 (two) Medical times [facility] daily. Indication s: atrial fibrillati on KCL 20 mEq 2020-0 Yes [id number] 20meq Take 1 [facility] tablet 2-25 tablet by [facility] 00:00: mouth [place] 00 daily. [facility] furosemide 2020-0 Yes [id number] 40mg Take 1 [facility] 40 mg 2-25 tablet by [facility] tablet 00:00: mouth [place] 00 every Medical morning Branch and evening. apixaban 5 2020-0 Yes 1358 5mg Take 1 [facility] mg tablet 2-25 tablet by [facility] f 00:00: mouth 2 [place] 00 (two) Medical times [facility] daily. Indication s: atrial fibrillati on KCL 20 mEq 2020-0 Yes [id number] 20meq Take 1 [facility] tablet 2-25 tablet by [facility] 00:00: mouth [place] 00 daily. [facility] furosemide 2020-0 Yes [id number] 40mg Take 1 [facility] 40 mg 2-25 tablet by [facility] tablet 00:00: mouth [place] 00 every Medical morning Branch and evening. apixaban 5 2020-0 Yes 1358 5mg Take 1 [facility] mg tablet 2-25 tablet by [facility] f 00:00: mouth 2 [place] 00 (two) Medical times [facility] daily. Indication s: atrial fibrillati on KCL 20 mEq 2020-0 Yes [id number] 20meq Take 1 [facility] tablet 2-25 tablet by [facility] 00:00: mouth [place] 00 daily. [facility] furosemide 2020-0 Yes [id number] 40mg Take 1 [facility] 40 mg 2-25 tablet by [facility] tablet 00:00: mouth [place] 00 every Medical morning Branch and evening. apixaban 5 2020-0 Yes 1358 5mg Take 1 [facility] mg tablet 2-25 tablet by [facility] f 00:00: mouth 2 [place] 00 (two) Medical times [facility] daily. Indication s: atrial fibrillati on KCL 20 mEq 2020-0 Yes [id number] 20meq Take 1 [facility] tablet 2-25 tablet by [facility] 00:00: mouth [place] 00 daily. [facility] furosemide 2020-0 Yes [id number] 40mg Take 1 [facility] 40 mg 2-25 tablet by [facility] tablet 00:00: mouth [place] 00 every Medical morning Branch and evening. apixaban 5 2020-0 Yes 1358 5mg Take 1 [facility] mg tablet 2-25 tablet by [facility] f 00:00: mouth 2 [place] 00 (two) Medical times [facility] daily. Indication s: atrial fibrillati on KCL 20 mEq 2020-0 Yes [id number] 20meq Take 1 [facility] tablet 2-25 tablet by [facility] 00:00: mouth [place] 00 daily. [facility] furosemide 2020-0 Yes [id number] 40mg Take 1 [facility] 40 mg 2-25 tablet by [facility] tablet 00:00: mouth [place] 00 every Medical morning Branch and evening. apixaban 5 2020-0 Yes 1358 5mg Take 1 [facility] mg tablet 2-25 tablet by [facility] f 00:00: mouth 2 [place] 00 (two) Medical times [facility] daily. Indication s: atrial fibrillati on KCL 20 mEq 2020-0 Yes [id number] 20meq Take 1 [facility] tablet 2-25 tablet by [facility] 00:00: mouth [place] 00 daily. [facility] furosemide 2020-0 Yes [id number] 40mg Take 1 [facility] 40 mg 2-25 tablet by [facility] tablet 00:00: mouth [place] 00 every Medical morning Branch and evening. apixaban 5 2020-0 Yes 1358 5mg Take 1 [facility] mg tablet 2-25 tablet by [facility] f 00:00: mouth 2 [place] 00 (two) Medical times [facility] daily. Indication s: atrial fibrillati on KCL 20 mEq 2020-0 Yes [id number] 20meq Take 1 [facility] tablet 2-25 tablet by [facility] 00:00: mouth [place] 00 daily. [facility] digoxin 125 2020-0 Yes [id number] 125ug Take 1 [facility] mcg (0.125 2-25 tablet by [facility] mg) tablet 00:00: mouth [place] 00 daily. [facility] furosemide 2020-0 Yes [id number] 40mg Take 1 [facility] 40 mg 2-25 tablet by [facility] tablet 00:00: mouth [place] 00 every Medical morning Branch and evening. apixaban 5 2020-0 Yes 1358 5mg Take 1 [facility] mg tablet 2-25 tablet by [facility] f 00:00: mouth 2 [place] 00 (two) Medical times [facility] daily. Indication s: atrial fibrillati on KCL 20 mEq 2020-0 Yes [id number] 20meq Take 1 [facility] tablet 2-25 tablet by [facility] 00:00: mouth [place] 00 daily. [facility] furosemide 2020-0 Yes [id number] 40mg Take 1 [facility] 40 mg 2-25 tablet by [facility] tablet 00:00: mouth [place] 00 every Medical morning Branch and evening. sotalol 120 2020-0 Yes [id number] 120mg Take 1 [facility] mg tablet 2-25 tablet by [facility] o f 00:00: mouth [place] 00 every 12 Medical (twelve) Branch hours. apixaban 5 2020-0 Yes 1358 5mg Take 1 [facility] mg tablet 2-25 tablet by [facility] f 00:00: mouth 2 [place] 00 (two) Medical times Branch daily. Indication s: atrial fibrillati on furosemide 2020-0 Yes [id number] 40mg Take 1 [facility] 40 mg 2-25 tablet by [facility] tablet 00:00: mouth [place] 00 every Medical morning Branch and evening. apixaban 5 2020-0 Yes 1358 5mg Take 1 [facility] mg tablet 2-25 tablet by [facility] f 00:00: mouth 2 [place] 00 (two) Medical times Branch daily. Indication s: atrial fibrillati on KCL 20 mEq 2020-0 Yes [id number] 20meq Take 1 [facility] tablet 2-25 tablet by [facility] 00:00: mouth [place] 00 daily. [facility] KCL 20 mEq 2020-0 Yes [id number] 20meq Take 1 [facility] tablet 2-25 tablet by [facility] 00:00: mouth [place] 00 daily. [facility] furosemide 2020-0 Yes [id number] 40mg Take 1 [facility] 40 mg 2-25 tablet by [facility] tablet 00:00: mouth [place] 00 every Medical morning Branch and evening. apixaban 5 2020-0 Yes 1358 5mg Take 1 [facility] mg tablet 2-25 tablet by [facility] o f 00:00: mouth 2 [place] 00 (two) Medical times [facility] daily. Indication s: atrial fibrillati on KCL 20 mEq 2020-0 Yes [id number] 20meq Take 1 [facility] tablet 2-25 tablet by [facility] 00:00: mouth [place] 00 daily. [facility] furosemide 2020-0 Yes [id number] 40mg Take 1 [facility] 40 mg 2-25 tablet by [facility] tablet 00:00: mouth [place] 00 every Medical morning Branch and evening. apixaban 5 2020-0 Yes 1358 5mg Take 1 [facility] mg tablet 2-25 tablet by [facility] o f 00:00: mouth 2 [place] 00 (two) Medical times Branch daily. Indication s: atrial fibrillati on KCL 20 mEq 2020-0 Yes [id number] 20meq Take 1 [facility] tablet 2-25 tablet by [facility] 00:00: mouth [place] 00 daily. [facility] furosemide 2020-0 Yes [id number] 40mg Take 1 [facility] 40 mg 2-25 tablet by [facility] tablet 00:00: mouth [place] 00 every Medical morning Branch and evening. apixaban 5 2020-0 Yes 1358 5mg Take 1 [facility] mg tablet 2-25 tablet by [facility] f 00:00: mouth 2 [place] 00 (two) Medical times Branch daily. Indication s: atrial fibrillati on KCL 20 mEq 2020-0 Yes [id number] 20meq Take 1 [facility] tablet 2-25 tablet by [facility] 00:00: mouth [place] 00 daily. [facility] furosemide 2020-0 Yes [id number] 40mg Take 1 [facility] 40 mg 2-25 tablet by [facility] tablet 00:00: mouth [place] 00 every Medical morning Branch and evening. apixaban 5 2020-0 Yes 1358 5mg Take 1 [facility] mg tablet 2-25 tablet by [facility] f 00:00: mouth 2 [place] 00 (two) Medical times [facility] daily. Indication s: atrial fibrillati on KCL 20 mEq 2020-0 Yes [id number] 20meq Take 1 [facility] tablet 2-25 tablet by [facility] 00:00: mouth [place] 00 daily. [facility] furosemide 2020-0 Yes [id number] 40mg Take 1 [facility] 40 mg 2-25 tablet by [facility] tablet 00:00: mouth [place] 00 every Medical morning Branch and evening. apixaban 5 2020-0 Yes 1358 5mg Take 1 [facility] mg tablet 2-25 tablet by [facility] o f 00:00: mouth 2 [place] 00 (two) Medical times Branch daily. Indication s: atrial fibrillati on KCL 20 mEq 2020-0 Yes [id number] 20meq Take 1 [facility] tablet 2-25 tablet by [facility] 00:00: mouth [place] 00 daily. [facility] furosemide 2020-0 Yes [id number] 40mg Take 1 [facility] 40 mg 2-25 tablet by [facility] tablet 00:00: mouth [place] 00 every Medical morning Branch and evening. sotalol 120 2020-0 Yes [id number] 120mg Take 1 [facility] mg tablet 2-25 tablet by [facility] o f 00:00: mouth [place] 00 every 12 Medical (twelve) Branch hours. furosemide 2020-0 Yes [id number] 40mg Take 1 [facility] 40 mg 2-25 tablet by [facility] tablet 00:00: mouth [place] 00 every Medical morning Branch and evening. apixaban 5 2020-0 Yes 1358 5mg Take 1 [facility] mg tablet 2-25 tablet by [facility] o f 00:00: mouth 2 [place] 00 (two) Medical times Branch daily. Indication s: atrial fibrillati on KCL 20 mEq 2020-0 Yes [id number] 20meq Take 1 [facility] tablet 2-25 tablet by [facility] 00:00: mouth [place] 00 daily. [facility] apixaban 5 2020-0 Yes 1358 5mg Take 1 [facility] mg tablet 2-25 tablet by [facility] o f 00:00: mouth 2 [place] 00 (two) Medical times Branch daily. Indication s: atrial fibrillati on KCL 20 mEq 2020-0 Yes [id number] 20meq Take 1 [facility] tablet 2-25 tablet by [facility] 00:00: mouth [place] 00 daily. [facility] furosemide 2020-0 Yes [id number] 40mg Take 1 [facility] 40 mg 2-25 tablet by [facility] tablet 00:00: mouth [place] 00 every Medical morning Branch and evening. apixaban 5 2020-0 Yes 1358 5mg Take 1 [facility] mg tablet 2-25 tablet by [facility] o f 00:00: mouth 2 [place] 00 (two) Medical times Branch daily. Indication s: atrial fibrillati on KCL 20 mEq 2020-0 Yes [id number] 20meq Take 1 [facility] tablet 2-25 tablet by [facility] 00:00: mouth [place] 00 daily. [facility] furosemide 2020-0 Yes [id number] 40mg Take 1 [facility] 40 mg 2-25 tablet by [facility] tablet 00:00: mouth [place] 00 every Medical morning Branch and evening. apixaban 5 2020-0 Yes 1358 5mg Take 1 [facility] mg tablet 2-25 tablet by [facility] o f 00:00: mouth 2 [place] 00 (two) Medical times Branch daily. Indication s: atrial fibrillati on KCL 20 mEq 2020-0 Yes [id number] 20meq Take 1 [facility] tablet 2-25 tablet by [facility] 00:00: mouth [place] 00 daily. [facility] furosemide 2020-0 Yes [id number] 40mg Take 1 [facility] 40 mg 2-25 tablet by [facility] tablet 00:00: mouth [place] 00 every Medical morning Branch and evening. apixaban 5 2020-0 Yes 1358 5mg Take 1 [facility] mg tablet 2-25 tablet by [facility] o f 00:00: mouth 2 [place] 00 (two) Medical times Branch daily. Indication s: atrial fibrillati on KCL 20 mEq 2020-0 Yes [id number] 20meq Take 1 [facility] tablet 2-25 tablet by [facility] 00:00: mouth [place] 00 daily. [facility] furosemide 2020-0 Yes [id number] 40mg Take 1 [facility] 40 mg 2-25 tablet by [facility] tablet 00:00: mouth [place] 00 every Medical morning Branch and evening. apixaban 5 2020-0 Yes 1358 5mg Take 1 [facility] mg tablet 2-25 tablet by [facility] o f 00:00: mouth 2 [place] 00 (two) Medical times Branch daily. Indication s: atrial fibrillati on KCL 20 mEq 2020-0 Yes [id number] 20meq Take 1 [facility] tablet 2-25 tablet by [facility] 00:00: mouth [place] 00 daily. [facility] furosemide 2020-0 Yes [id number] 40mg Take 1 [facility] 40 mg 2-25 tablet by [facility] tablet 00:00: mouth [place] 00 every Medical morning Branch and evening. sotalol 120 2020-0 Yes [id number] 120mg Take 1 [facility] mg tablet 2-25 tablet by [facility] o f 00:00: mouth [place] 00 every 12 Medical (twelve) Branch hours. furosemide 2020-0 Yes [id number] 40mg Take 1 [facility] 40 mg 2-25 tablet by [facility] tablet 00:00: mouth [place] 00 every Medical morning Branch and evening. apixaban 5 2020-0 Yes 1358 5mg Take 1 [facility] mg tablet 2-25 tablet by [facility] o f 00:00: mouth 2 [place] 00 (two) Medical times Branch daily. Indication s: atrial fibrillati on KCL 20 mEq 2020-0 Yes [id number] 20meq Take 1 [facility] tablet 2-25 tablet by [facility] 00:00: mouth [place] 00 daily. [facility] apixaban 5 2020-0 Yes 1358 5mg Take 1 [facility] mg tablet 2-25 tablet by [facility] o f 00:00: mouth 2 [place] 00 (two) Medical times [facility] daily. Indication s: atrial fibrillati on KCL 20 mEq 2020-0 Yes [id number] 20meq Take 1 [facility] tablet 2-25 tablet by [facility] 00:00: mouth [place] 00 daily. [facility] furosemide 2020-0 Yes [id number] 40mg Take 1 [facility] 40 mg 2-25 tablet by [facility] tablet 00:00: mouth [place] 00 every Medical morning Branch and evening. apixaban 5 2020-0 Yes 1358 5mg Take 1 [facility] mg tablet 2-25 tablet by [facility] o f 00:00: mouth 2 [place] 00 (two) Medical times Branch daily. Indication s: atrial fibrillati on KCL 20 mEq 2020-0 Yes [id number] 20meq Take 1 [facility] tablet 2-25 tablet by [facility] 00:00: mouth [place] 00 daily. [facility] furosemide 2020-0 Yes [id number] 40mg Take 1 [facility] 40 mg 2-25 tablet by [facility] tablet 00:00: mouth [place] 00 every Medical morning Branch and evening. apixaban 5 2020-0 Yes 1358 5mg Take 1 [facility] mg tablet 2-25 tablet by [facility] o f 00:00: mouth 2 [place] 00 (two) Medical times Branch daily. Indication s: atrial fibrillati on KCL 20 mEq 2020-0 Yes [id number] 20meq Take 1 [facility] tablet 2-25 tablet by [facility] 00:00: mouth [place] 00 daily. [facility] furosemide 2020-0 Yes [id number] 40mg Take 1 [facility] 40 mg 2-25 tablet by [facility] tablet 00:00: mouth [place] 00 every Medical morning Branch and evening. apixaban 5 2020-0 Yes 1358 5mg Take 1 [facility] mg tablet 2-25 tablet by [facility] o f 00:00: mouth 2 [place] 00 (two) Medical times Branch daily. Indication s: atrial fibrillati on KCL 20 mEq 2020-0 Yes [id number] 20meq Take 1 [facility] tablet 2-25 tablet by [facility] 00:00: mouth [place] 00 daily. [facility] furosemide 2020-0 Yes [id number] 40mg Take 1 [facility] 40 mg 2-25 tablet by [facility] tablet 00:00: mouth [place] 00 every Medical morning Branch and evening. apixaban 5 2020-0 Yes 1358 5mg Take 1 [facility] mg tablet 2-25 tablet by [facility] o f 00:00: mouth 2 [place] 00 (two) Medical times Branch daily. Indication s: atrial fibrillati on KCL 20 mEq 2020-0 Yes [id number] 20meq Take 1 [facility] tablet 2-25 tablet by [facility] 00:00: mouth [place] 00 daily. [facility] furosemide 2020-0 Yes [id number] 40mg Take 1 [facility] 40 mg 2-25 tablet by [facility] tablet 00:00: mouth [place] 00 every Medical morning Branch and evening. sotalol 120 2020-0 Yes [id number] 120mg Take 1 [facility] mg tablet 2-25 tablet by [facility] o f 00:00: mouth [place] 00 every 12 Medical (twelve) Branch hours. apixaban 5 2020-0 Yes 1358 5mg Take 1 [facility] mg tablet 2-25 tablet by [facility] f 00:00: mouth 2 [place] 00 (two) Medical times Branch daily. Indication s: atrial fibrillati on furosemide 2020-0 Yes [id number] 40mg Take 1 [facility] 40 mg 2-25 tablet by [facility] tablet 00:00: mouth [place] 00 every Medical morning Branch and evening. apixaban 5 2020-0 Yes 1358 5mg Take 1 [facility] mg tablet 2-25 tablet by [facility] o f 00:00: mouth 2 [place] 00 (two) Medical times Branch daily. Indication s: atrial fibrillati on KCL 20 mEq 2020-0 Yes [id number] 20meq Take 1 [facility] tablet 2-25 tablet by [facility] 00:00: mouth [place] 00 daily. [facility] KCL 20 mEq 2020-0 Yes [id number] 20meq Take 1 [facility] tablet 2-25 tablet by [facility] 00:00: mouth [place] 00 daily. [facility] furosemide 2020-0 Yes [id number] 40mg Take 1 [facility] 40 mg 2-25 tablet by [facility] tablet 00:00: mouth [place] 00 every Medical morning Branch and evening. apixaban 5 2020-0 Yes 1358 5mg Take 1 [facility] mg tablet 2-25 tablet by [facility] o f 00:00: mouth 2 [place] 00 (two) Medical times Branch daily. Indication s: atrial fibrillati on KCL 20 mEq 2020-0 Yes [id number] 20meq Take 1 [facility] tablet 2-25 tablet by [facility] 00:00: mouth [place] 00 daily. [facility] furosemide 2020-0 Yes [id number] 40mg Take 1 [facility] 40 mg 2-25 tablet by [facility] tablet 00:00: mouth [place] 00 every Medical morning Branch and evening. apixaban 5 2020-0 Yes 1358 5mg Take 1 [facility] mg tablet 2-25 tablet by [facility] f 00:00: mouth 2 [place] 00 (two) Medical times Branch daily. Indication s: atrial fibrillati on KCL 20 mEq 2020-0 Yes [id number] 20meq Take 1 [facility] tablet 2-25 tablet by [facility] 00:00: mouth [place] 00 daily. [facility] furosemide 2020-0 Yes [id number] 40mg Take 1 [facility] 40 mg 2-25 tablet by [facility] tablet 00:00: mouth [place] 00 every Medical morning Branch and evening. apixaban 5 2020-0 Yes 1358 5mg Take 1 [facility] mg tablet 2-25 tablet by [facility] o f 00:00: mouth 2 [place] 00 (two) Medical times Branch daily. Indication s: atrial fibrillati on KCL 20 mEq 2020-0 Yes [id number] 20meq Take 1 [facility] tablet 2-25 tablet by [facility] 00:00: mouth [place] 00 daily. [facility] furosemide 2020-0 Yes [id number] 40mg Take 1 [facility] 40 mg 2-25 tablet by [facility] tablet 00:00: mouth [place] 00 every Medical morning Branch and evening. apixaban 5 2020-0 Yes 1358 5mg Take 1 [facility] mg tablet 2-25 tablet by [facility] o f 00:00: mouth 2 [place] 00 (two) Medical times [facility] daily. Indication s: atrial fibrillati on KCL 20 mEq 2020-0 Yes [id number] 20meq Take 1 [facility] tablet 2-25 tablet by [facility] 00:00: mouth [place] 00 daily. [facility] furosemide 2020-0 Yes [id number] 40mg Take 1 [facility] 40 mg 2-25 tablet by [facility] tablet 00:00: mouth [place] 00 every Medical morning Branch and evening. sotalol 120 2020-0 Yes [id number] 120mg Take 1 [facility] mg tablet 2-25 tablet by [facility] o f 00:00: mouth [place] 00 every 12 Medical (twelve) Branch hours. furosemide 2020-0 Yes [id number] 40mg Take 1 [facility] 40 mg 2-25 [...] fibrillati on KCL 20 mEq 2020-0 Yes [id number] 20meq Take 1 [facility] tablet 2-25 tablet by [facility] 00:00: mouth [place] 00 daily. [facility] KCL 20 mEq 2020-0 Yes [id number] 20meq Take 1 [facility] tablet 2-25 tablet by [facility] 00:00: mouth [place] 00 daily. [facility] furosemide 2020-0 Yes [id number] 40mg Take 1 [facility] 40 mg 2-25 tablet by [facility] tablet 00:00: mouth [place] 00 every Medical morning Branch and evening. apixaban 5 2020-0 Yes 1358 5mg Take 1 [facility] mg tablet 2-25 tablet by [facility] o f 00:00: mouth 2 [place] 00 (two) Medical times [facility] daily. Indication s: atrial fibrillati on KCL 20 mEq 2020-0 Yes [id number] 20meq Take 1 [facility] tablet 2-25 tablet by [facility] 00:00: mouth [place] 00 daily. [facility] furosemide 2020-0 Yes [id number] 40mg Take 1 [facility] 40 mg 2-25 tablet by [facility] tablet 00:00: mouth [place] 00 every Medical morning Branch and evening. apixaban 5 2020-0 Yes 1358 5mg Take 1 [facility] mg tablet 2-25 tablet by [facility] o f 00:00: mouth 2 [place] 00 (two) Medical times [facility] daily. Indication s: atrial fibrillati on KCL 20 mEq 2020-0 Yes [id number] 20meq Take 1 [facility] tablet 2-25 tablet by [facility] 00:00: mouth [place] 00 daily. [facility] furosemide 2020-0 Yes [id number] 40mg Take 1 [facility] 40 mg 2-25 tablet by [facility] tablet 00:00: mouth [place] 00 every Medical morning Branch and evening. apixaban 5 2020-0 Yes 1358 5mg Take 1 [facility] mg tablet 2-25 tablet by [facility] o f 00:00: mouth 2 [place] 00 (two) Medical times [facility] daily. Indication s: atrial fibrillati on KCL 20 mEq 2020-0 Yes [id number] 20meq Take 1 [facility] tablet 2-25 tablet by [facility] 00:00: mouth [place] 00 daily. [facility] furosemide 2020-0 Yes [id number] 40mg Take 1 [facility] 40 mg 2-25 tablet by [facility] tablet 00:00: mouth [place] 00 every Medical morning Branch and evening. apixaban 5 2020-0 Yes 1358 5mg Take 1 [facility] mg tablet 2-25 tablet by [facility] o f 00:00: mouth 2 [place] 00 (two) Medical times Branch daily. Indication s: atrial fibrillati on KCL 20 mEq 2020-0 Yes [id number] 20meq Take 1 [facility] tablet 2-25 tablet by [facility] 00:00: mouth [place] 00 daily. [facility] furosemide 2020-0 Yes [id number] 40mg Take 1 [facility] 40 mg 2-25 tablet by [facility] tablet 00:00: mouth [place] 00 every Medical morning Branch and evening. furosemide 2020-0 Yes [id number] 40mg Take 1 [facility] 40 mg 2-25 tablet by [facility] tablet 00:00: mouth [place] 00 every Medical morning Branch and evening. apixaban 5 2020-0 Yes 1358 5mg Take 1 [facility] mg tablet 2-25 tablet by [facility] o f 00:00: mouth 2 [place] 00 (two) Medical times Branch daily. Indication s: atrial fibrillati on KCL 20 mEq 2020-0 Yes [id number] 20meq Take 1 [facility] tablet 2-25 tablet by [facility] 00:00: mouth [place] 00 daily. [facility] apixaban 5 2020-0 Yes 1358 5mg Take 1 [facility] mg tablet 2-25 tablet by [facility] o f 00:00: mouth 2 [place] 00 (two) Medical times Branch daily. Indication s: atrial fibrillati on KCL 20 mEq 2020-0 Yes [id number] 20meq Take 1 [facility] tablet 2-25 tablet by [facility] 00:00: mouth [place] 00 daily. [facility] furosemide 2020-0 Yes [id number] 40mg Take 1 [facility] 40 mg 2-25 tablet by [facility] tablet 00:00: mouth [place] 00 every Medical morning Branch and evening. apixaban 5 2020-0 Yes 1358 5mg Take 1 [facility] mg tablet 2-25 tablet by [facility] o f 00:00: mouth 2 [place] 00 (two) Medical times [facility] daily. Indication s: atrial fibrillati on KCL 20 mEq 2020-0 Yes [id number] 20meq Take 1 [facility] 00:00: mouth [place] 00 daily. [facility] furosemide 2020-0 Yes [id number] 40mg Take 1 [facility] 40 mg 2-25 tablet by [facility] tablet 00:00: mouth [place] 00 every Medical morning [facility] and evening. apixaban 5 2020-0 Yes 1358 5mg Take 1 [facility] mg tablet 2-25 tablet by [facility] f 00:00: mouth 2 [place] 00 (two) Medical times [facility] daily. Indication s: atrial fibrillati on KCL 20 mEq 2020-0 Yes [id number] 20meq Take 1 [facility] tablet 2-25 tablet by [facility] 00:00: mouth [place] 00 daily. [facility] furosemide 2020-0 Yes [id number] 40mg Take 1 [facility] 40 mg 2-25 tablet by [facility] tablet 00:00: mouth [place] 00 every Medical morning [facility] and evening. apixaban 5 2020-0 Yes 1358 5mg Take 1 [facility] mg tablet 2-25 tablet by [facility] f 00:00: mouth 2 [place] 00 (two) Medical times [facility] daily. Indication s: atrial fibrillati on KCL 20 mEq 2020-0 Yes [id number] 20meq Take 1 [facility] tablet 2-25 tablet by [facility] 00:00: mouth [place] 00 daily. [facility] furosemide 2020-0 Yes [id number] 40mg Take 1 [facility] 40 mg 2-25 tablet by [facility] tablet 00:00: mouth [place] 00 every Medical morning [facility] and evening. apixaban 5 2020-0 Yes 1358 5mg Take 1 [facility] mg tablet 2-25 tablet by [facility] f 00:00: mouth 2 [place] 00 (two) Medical times [facility] daily. Indication s: atrial fibrillati on KCL 20 mEq 2020-0 Yes [id number] 20meq Take 1 [facility] tablet 2-25 tablet by [facility] 00:00: mouth [place] 00 daily. [facility] furosemide 2020-0 Yes [id number] 40mg Take 1 [facility] 40 mg 2-25 tablet by [facility] tablet 00:00: mouth [place] 00 every Medical morning [facility] and evening. apixaban 5 2020-0 Yes 1358 5mg Take 1 [facility] mg tablet 2-25 tablet by [facility] f 00:00: mouth 2 [place] 00 (two) Medical times [facility] daily. Indication s: atrial fibrillati on KCL 20 mEq 2020-0 Yes [id number] 20meq Take 1 [facility] tablet 2-25 tablet by [facility] 00:00: mouth [place] 00 daily. [facility] furosemide 2020-0 Yes [id number] 40mg Take 1 [facility] 40 mg 2-25 tablet by [facility] tablet 00:00: mouth [place] 00 every Medical morning [facility] and evening. apixaban 5 2020-0 Yes 1358 5mg Take 1 [facility] mg tablet 2-25 tablet by [facility] f 00:00: mouth 2 [place] 00 (two) Medical times [facility] daily. Indication s: atrial fibrillati on KCL 20 mEq 2020-0 Yes [id number] 20meq Take 1 [facility] tablet 2-25 tablet by [facility] 00:00: mouth [place] 00 daily. [facility] furosemide 2020-0 Yes [id number] 40mg Take 1 [facility] 40 mg 2-25 tablet by [facility] tablet 00:00: mouth [place] 00 every Medical morning [facility] and evening. apixaban 5 2020-0 Yes 1358 5mg Take 1 [facility] mg tablet 2-25 tablet by [facility] f 00:00: mouth 2 [place] 00 (two) Medical times [facility] daily. Indication s: atrial fibrillati on KCL 20 mEq 2020-0 Yes [id number] 20meq Take 1 [facility] tablet 2-25 tablet by [facility] 00:00: mouth [place] 00 daily. [facility] furosemide 2020-0 Yes [id number] 40mg Take 1 [facility] 40 mg 2-25 tablet by [facility] tablet 00:00: mouth [place] 00 every Medical morning [facility] and evening. apixaban 5 2020-0 Yes 1358 5mg Take 1 [facility] mg tablet 2-25 tablet by [facility] f 00:00: mouth 2 [place] 00 (two) Medical times [facility] daily. Indication s: atrial fibrillati on KCL 20 mEq 2020-0 Yes [id number] 20meq Take 1 [facility] tablet 2-25 tablet by [facility] 00:00: mouth [place] 00 daily. [facility] furosemide 2020-0 Yes [id number] 40mg Take 1 [facility] 40 mg 2-25 tablet by [facility] tablet 00:00: mouth [place] 00 every Medical morning [facility] and evening. apixaban 5 2020-0 Yes 1358 5mg Take 1 [facility] mg tablet 2-25 tablet by [facility] f 00:00: mouth 2 [place] 00 (two) Medical times [facility] daily. Indication s: atrial fibrillati on KCL 20 mEq 2020-0 Yes [id number] 20meq Take 1 [facility] tablet 2-25 tablet by [facility] 00:00: mouth [place] 00 daily. [facility] furosemide 2020-0 Yes [id number] 40mg Take 1 [facility] 40 mg 2-25 tablet by [facility] tablet 00:00: mouth [place] 00 every Medical morning [facility] and evening. apixaban 5 2020-0 Yes 1358 5mg Take 1 [facility] mg tablet 2-25 tablet by [facility] f 00:00: mouth 2 [place] 00 (two) Medical times [facility] daily. Indication s: atrial fibrillati on KCL 20 mEq 2020-0 Yes [id number] 20meq Take 1 [facility] tablet 2-25 tablet by [facility] 00:00: mouth [place] 00 daily. [facility] furosemide 2020-0 Yes [id number] 40mg Take 1 [facility] 40 mg 2-25 tablet by [facility] tablet 00:00: mouth [place] 00 every Medical morning Branch and evening. furosemide 2020-0 Yes [id number] 40mg Take 1 [facility] 40 mg 2-25 tablet by [facility] tablet 00:00: mouth [place] 00 every Medical morning Branch and evening. apixaban 5 2020-0 Yes 1358 5mg Take 1 [facility] mg tablet 2-25 tablet by [facility] f 00:00: mouth 2 [place] 00 (two) Medical times [facility] daily. Indication s: atrial fibrillati on KCL 20 mEq 2020-0 Yes [id number] 20meq Take 1 [facility] tablet 2-25 tablet by [facility] 00:00: mouth [place] 00 daily. [facility] apixaban 5 2020-0 Yes 1358 5mg Take 1 [facility] mg tablet 2-25 tablet by [facility] f 00:00: mouth 2 [place] 00 (two) Medical times [facility] daily. Indication s: atrial fibrillati on KCL 20 mEq 2020-0 Yes [id number] 20meq Take 1 [facility] tablet 2-25 tablet by [facility] 00:00: mouth [place] 00 daily. [facility] furosemide 2020-0 Yes [id number] 40mg Take 1 [facility] 40 mg 2-25 tablet by [facility] tablet 00:00: mouth [place] 00 every Medical morning Branch and evening. apixaban 5 2020-0 Yes 1358 5mg Take 1 [facility] mg tablet 2-25 tablet by [facility] f 00:00: mouth 2 [place] 00 (two) Medical times [facility] daily. Indication s: atrial fibrillati on KCL 20 mEq 2020-0 Yes [id number] 20meq Take 1 [facility] tablet 2-25 tablet by [facility] 00:00: mouth [place] 00 daily. [facility] furosemide 2020-0 Yes [id number] 40mg Take 1 [facility] 40 mg 2-25 tablet by [facility] tablet 00:00: mouth [place] 00 every Medical morning Branch and evening. apixaban 5 2020-0 Yes 1358 5mg Take 1 [facility] mg tablet 2-25 tablet by [facility] f 00:00: mouth 2 [place] 00 (two) Medical times [facility] daily. Indication s: atrial fibrillati on KCL 20 mEq 2020-0 Yes [id number] 20meq Take 1 [facility] tablet 2-25 tablet by [facility] 00:00: mouth [place] 00 daily. [facility] furosemide 2020-0 Yes [id number] 40mg Take 1 [facility] 40 mg 2-25 tablet by [facility] tablet 00:00: mouth [place] 00 every Medical morning Branch and evening. apixaban 5 2020-0 Yes 1358 5mg Take 1 [facility] mg tablet 2-25 tablet by [facility] f 00:00: mouth 2 [place] 00 (two) Medical times [facility] daily. Indication s: atrial fibrillati on KCL 20 mEq 2020-0 Yes [id number] 20meq Take 1 [facility] tablet 2-25 tablet by [facility] 00:00: mouth [place] 00 daily. [facility] furosemide 2020-0 Yes [id number] 40mg Take 1 [facility] 40 mg 2-25 tablet by [facility] tablet 00:00: mouth [place] 00 every Medical morning Branch and evening. apixaban 5 2020-0 Yes 1358 5mg Take 1 [facility] mg tablet 2-25 tablet by [facility] f 00:00: mouth 2 [place] 00 (two) Medical times [facility] daily. Indication s: atrial fibrillati on KCL 20 mEq 2020-0 Yes [id number] 20meq Take 1 [facility] tablet 2-25 tablet by [facility] 00:00: mouth [place] 00 daily. [facility] furosemide 2020-0 Yes [id number] 40mg Take 1 [facility] 40 mg 2-25 tablet by [facility] tablet 00:00: mouth [place] 00 every Medical morning Branch and evening. apixaban 5 2020-0 Yes 1358 5mg Take 1 [facility] mg tablet 2-25 tablet by [facility] f 00:00: mouth 2 [place] 00 (two) Medical times [facility] daily. Indication s: atrial fibrillati on KCL 20 mEq 2020-0 Yes [id number] 20meq Take 1 [facility] tablet 2-25 tablet by [facility] 00:00: mouth [place] 00 daily. [facility] furosemide 2020-0 Yes [id number] 40mg Take 1 [facility] 40 mg 2-25 tablet by [facility] tablet 00:00: mouth [place] 00 every Medical morning Branch and evening. apixaban 5 2020-0 Yes 1358 5mg Take 1 [facility] mg tablet 2-25 tablet by [facility] f 00:00: mouth 2 [place] 00 (two) Medical times [facility] daily. Indication s: atrial fibrillati on furosemide 2020-0 Yes [id number] 40mg Take 1 [facility] 40 mg 2-25 tablet by [facility] tablet 00:00: mouth [place] 00 every Medical morning Branch and evening. apixaban 5 2020-0 Yes 1358 5mg Take 1 [facility] mg tablet 2-25 tablet by [facility] f 00:00: mouth 2 [place] 00 (two) Medical times [facility] daily. Indication s: atrial fibrillati on KCL 20 mEq 2020-0 Yes [id number] 20meq Take 1 [facility] tablet 2-25 tablet by [facility] 00:00: mouth [place] 00 daily. [facility] KCL 20 mEq 2020-0 Yes [id number] 20meq Take 1 [facility] tablet 2-25 tablet by [facility] 00:00: mouth [place] 00 daily. [facility] furosemide 2020-0 Yes [id number] 40mg Take 1 [facility] 40 mg 2-25 tablet by [facility] tablet 00:00: mouth [place] 00 every Medical morning Branch and evening. apixaban 5 2020-0 Yes 1358 5mg Take 1 [facility] mg tablet 2-25 tablet by [facility] f 00:00: mouth 2 [place] 00 (two) Medical times [facility] daily. Indication s: atrial fibrillati on KCL 20 mEq 2020-0 Yes [id number] 20meq Take 1 [facility] tablet 2-25 tablet by [facility] 00:00: mouth [place] 00 daily. [facility] furosemide 2020-0 Yes [id number] 40mg Take 1 [facility] 40 mg 2-25 tablet by [facility] tablet 00:00: mouth [place] 00 every Medical morning Branch and evening. apixaban 5 2020-0 Yes 1358 5mg Take 1 [facility] mg tablet 2-25 tablet by [facility] f 00:00: mouth 2 [place] 00 (two) Medical times [facility] daily. Indication s: atrial fibrillati on KCL 20 mEq 2020-0 Yes [id number] 20meq Take 1 [facility] tablet 2-25 tablet by [facility] 00:00: mouth [place] 00 daily. [facility] furosemide 2020-0 Yes [id number] 40mg Take 1 [facility] 40 mg 2-25 tablet by [facility] tablet 00:00: mouth [place] 00 every Medical morning Branch and evening. apixaban 5 2020-0 Yes 1358 5mg Take 1 [facility] mg tablet 2-25 tablet by [facility] f 00:00: mouth 2 [place] 00 (two) Medical times [facility] daily. Indication s: atrial fibrillati on KCL 20 mEq 2020-0 Yes [id number] 20meq Take 1 [facility] tablet 2-25 tablet by [facility] 00:00: mouth [place] 00 daily. [facility] furosemide 2020-0 Yes [id number] 40mg Take 1 [facility] 40 mg 2-25 tablet by [facility] tablet 00:00: mouth [place] 00 every Medical morning Branch and evening. apixaban 5 2020-0 Yes 1358 5mg Take 1 [facility] mg tablet 2-25 tablet by [facility] f 00:00: mouth 2 [place] 00 (two) Medical times [facility] daily. Indication s: atrial fibrillati on KCL 20 mEq 2020-0 Yes [id number] 20meq Take 1 [facility] tablet 2-25 tablet by [facility] 00:00: mouth [place] 00 daily. [facility] furosemide 2020-0 Yes [id number] 40mg Take 1 [facility] 40 mg 2-25 tablet by [facility] tablet 00:00: mouth [place] 00 every Medical morning Branch and evening. apixaban 5 2020-0 Yes 1358 5mg Take 1 [facility] mg tablet 2-25 tablet by [facility] f 00:00: mouth 2 [place] 00 (two) Medical times [facility] daily. Indication s: atrial fibrillati on KCL 20 mEq 2020-0 Yes [id number] 20meq Take 1 [facility] tablet 2-25 tablet by [facility] 00:00: mouth [place] 00 daily. [facility] furosemide 2020-0 Yes [id number] 40mg Take 1 [facility] 40 mg 2-25 tablet by [facility] tablet 00:00: mouth [place] 00 every Medical morning Branch and evening. apixaban 5 2020-0 Yes 1358 5mg Take 1 [facility] mg tablet 2-25 tablet by [facility] f 00:00: mouth 2 [place] 00 (two) Medical times [facility] daily. Indication s: atrial fibrillati on KCL 20 mEq 2020-0 Yes [id number] 20meq Take 1 [facility] tablet 2-25 tablet by [facility] 00:00: mouth [place] 00 daily. [facility] furosemide 2020-0 Yes [id number] 40mg Take 1 [facility] 40 mg 2-25 tablet by [facility] tablet 00:00: mouth [place] 00 every Medical morning Branch and evening. apixaban 5 2020-0 Yes 1358 5mg Take 1 [facility] mg tablet 2-25 tablet by [facility] f 00:00: mouth 2 [place] 00 (two) Medical times [facility] daily. Indication s: atrial fibrillati on KCL 20 mEq 2020-0 Yes [id number] 20meq Take 1 [facility] tablet 2-25 tablet by [facility] 00:00: mouth [place] 00 daily. [facility] furosemide 2020-0 Yes [id number] 40mg Take 1 [facility] 40 mg 2-25 tablet by [facility] tablet 00:00: mouth [place] 00 every Medical morning Branch and evening. apixaban 5 2020-0 Yes 1358 5mg Take 1 [facility] mg tablet 2-25 tablet by [facility] f 00:00: mouth 2 [place] 00 (two) Medical times [facility] daily. Indication s: atrial fibrillati on furosemide 2020-0 Yes [id number] 40mg Take 1 [facility] 40 mg 2-25 tablet by [facility] tablet 00:00: mouth [place] 00 every Medical morning Branch and evening. apixaban 5 2020-0 Yes 1358 5mg Take 1 [facility] mg tablet 2-25 tablet by [facility] f 00:00: mouth 2 [place] 00 (two) Medical times [facility] daily. Indication s: atrial fibrillati on KCL 20 mEq 2020-0 Yes [id number] 20meq Take 1 [facility] tablet 2-25 tablet by [facility] 00:00: mouth [place] 00 daily. [facility] KCL 20 mEq 2020-0 Yes [id number] 20meq Take 1 [facility] tablet 2-25 tablet by [facility] 00:00: mouth [place] 00 daily. [facility] furosemide 2020-0 Yes [id number] 40mg Take 1 [facility] 40 mg 2-25 tablet by [facility] tablet 00:00: mouth [place] 00 every Medical morning Branch and evening. apixaban 5 2020-0 Yes 1358 5mg Take 1 [facility] mg tablet 2-25 tablet by [facility] f 00:00: mouth 2 [place] 00 (two) Medical times [facility] daily. Indication s: atrial fibrillati on KCL 20 mEq 2020-0 Yes [id number] 20meq Take 1 [facility] tablet 2-25 tablet by [facility] 00:00: mouth [place] 00 daily. [facility] furosemide 2020-0 Yes [id number] 40mg Take 1 [facility] 40 mg 2-25 tablet by [facility] tablet 00:00: mouth [place] 00 every Medical morning Branch and evening. apixaban 5 2020-0 Yes 1358 5mg Take 1 [facility] mg tablet 2-25 tablet by [facility] f 00:00: mouth 2 [place] 00 (two) Medical times [facility] daily. Indication s: atrial fibrillati on KCL 20 mEq 2020-0 Yes [id number] 20meq Take 1 [facility] tablet 2-25 tablet by [facility] 00:00: mouth [place] 00 daily. [facility] furosemide 2020-0 Yes [id number] 40mg Take 1 [facility] 40 mg 2-25 tablet by [facility] tablet 00:00: mouth [place] 00 every Medical morning Branch and evening. apixaban 5 2020-0 Yes 1358 5mg Take 1 [facility] mg tablet 2-25 tablet by [facility] o f 00:00: mouth 2 [place] 00 (two) Medical times [facility] daily. Indication s: atrial fibrillati on KCL 20 mEq 2020-0 Yes [id number] 20meq Take 1 [facility] tablet 2-25 tablet by [facility] 00:00: mouth [place] 00 daily. [facility] furosemide 2020-0 Yes [id number] 40mg Take 1 [facility] 40 mg 2-25 tablet by [facility] tablet 00:00: mouth [place] 00 every Medical morning Branch and evening. apixaban 5 2020-0 Yes 1358 5mg Take 1 [facility] mg tablet 2-25 tablet by [facility] f 00:00: mouth 2 [place] 00 (two) Medical times [facility] daily. Indication s: atrial fibrillati on KCL 20 mEq 2020-0 Yes [id number] 20meq Take 1 [facility] tablet 2-25 tablet by [facility] 00:00: mouth [place] 00 daily. [facility] furosemide 2020-0 Yes [id number] 40mg Take 1 [facility] 40 mg 2-25 tablet by [facility] tablet 00:00: mouth [place] 00 every Medical morning Branch and evening. apixaban 5 2020-0 Yes 1358 5mg Take 1 [facility] mg tablet 2-25 tablet by [facility] o f 00:00: mouth 2 [place] 00 (two) Medical times [facility] daily. Indication s: atrial fibrillati on KCL 20 mEq 2020-0 Yes [id number] 20meq Take 1 [facility] tablet 2-25 tablet by [facility] 00:00: mouth [place] 00 daily. [facility] furosemide 2020-0 Yes [id number] 40mg Take 1 [facility] 40 mg 2-25 tablet by [facility] tablet 00:00: mouth [place] 00 every Medical morning Branch and evening. apixaban 5 2020-0 Yes 1358 5mg Take 1 [facility] mg tablet 2-25 tablet by [facility] o f 00:00: mouth 2 [place] 00 (two) Medical times [facility] daily. Indication s: atrial fibrillati on KCL 20 mEq 2020-0 Yes [id number] 20meq Take 1 [facility] tablet 2-25 tablet by [facility] 00:00: mouth [place] 00 daily. [facility] furosemide 2020-0 Yes [id number] 40mg Take 1 [facility] 40 mg 2-25 tablet by [facility] tablet 00:00: mouth [place] 00 every Medical morning Branch and evening. apixaban 5 2020-0 Yes 1358 5mg Take 1 [facility] mg tablet 2-25 tablet by [facility] o f 00:00: mouth 2 [place] 00 (two) Medical times [facility] daily. Indication s: atrial fibrillati on KCL 20 mEq 2020-0 Yes [id number] 20meq Take 1 [facility] tablet 2-25 tablet by [facility] 00:00: mouth [place] 00 daily. [facility] furosemide 2020-0 Yes [id number] 40mg Take 1 [facility] 40 mg 2-25 tablet by [facility] tablet 00:00: mouth [place] 00 every Medical morning Branch and evening. apixaban 5 2020-0 Yes 1358 5mg Take 1 [facility] mg tablet 2-25 tablet by [facility] f 00:00: mouth 2 [place] 00 (two) Medical times [facility] daily. Indication s: atrial fibrillati on KCL 20 mEq 2020-0 Yes [id number] 20meq Take 1 [facility] tablet 2-25 tablet by [facility] 00:00: mouth [place] 00 daily. [facility] furosemide 2020-0 Yes [id number] 40mg Take 1 [facility] 40 mg 2-25 tablet by [facility] tablet 00:00: mouth [place] 00 every Medical morning Branch and evening. apixaban 5 2020-0 Yes 1358 5mg Take 1 [facility] mg tablet 2-25 tablet by [facility] o f 00:00: mouth 2 [place] 00 (two) Medical times [facility] daily. Indication s: atrial fibrillati on KCL 20 mEq 2020-0 Yes [id number] 20meq Take 1 [facility] tablet 2-25 tablet by [facility] 00:00: mouth [place] 00 daily. [facility] furosemide 2020-0 Yes [id number] 40mg Take 1 [facility] 40 mg 2-25 tablet by [facility] tablet 00:00: mouth [place] 00 every Medical morning Branch and evening. apixaban 5 2020-0 Yes 1358 5mg Take 1 [facility] mg tablet 2-25 tablet by [facility] o f 00:00: mouth 2 [place] 00 (two) Medical times [facility] daily. Indication s: atrial fibrillati on KCL 20 mEq 2020-0 Yes [id number] 20meq Take 1 [facility] tablet 2-25 tablet by [facility] 00:00: mouth [place] 00 daily. [facility] furosemide 2020-0 Yes [id number] 40mg Take 1 [facility] 40 mg 2-25 tablet by [facility] tablet 00:00: mouth [place] 00 every Medical morning Branch and evening. apixaban 5 2020-0 Yes 1358 5mg Take 1 [facility] mg tablet 2-25 tablet by [facility] o f 00:00: mouth 2 [place] 00 (two) Medical times [facility] daily. Indication s: atrial fibrillati on KCL 20 mEq 2020-0 Yes [id number] 20meq Take 1 [facility] tablet 2-25 tablet by [facility] 00:00: mouth [place] 00 daily. [facility] furosemide 2020-0 Yes [id number] 40mg Take 1 [facility] 40 mg 2-25 tablet by [facility] tablet 00:00: mouth [place] 00 every Medical morning Branch and evening. apixaban 5 2020-0 Yes 1358 5mg Take 1 [facility] mg tablet 2-25 tablet by [facility] f 00:00: mouth 2 [place] 00 (two) Medical times [facility] daily. Indication s: atrial fibrillati on KCL 20 mEq 2020-0 Yes [id number] 20meq Take 1 [facility] tablet 2-25 tablet by [facility] 00:00: mouth [place] 00 daily. [facility] furosemide 2020-0 Yes [id number] 40mg Take 1 [facility] 40 mg 2-25 tablet by [facility] tablet 00:00: mouth [place] 00 every Medical morning Branch and evening. apixaban 5 2020-0 Yes 1358 5mg Take 1 [facility] mg tablet 2-25 tablet by [facility] f 00:00: mouth 2 [place] 00 (two) Medical times [facility] daily. Indication s: atrial fibrillati on KCL 20 mEq 2020-0 Yes [id number] 20meq Take 1 [facility] tablet 2-25 tablet by [facility] 00:00: mouth [place] 00 daily. [facility] furosemide 2020-0 Yes [id number] 40mg Take 1 [facility] 40 mg 2-25 tablet by [facility] tablet 00:00: mouth [place] 00 every Medical morning Branch and evening. apixaban 5 2020-0 Yes 1358 5mg Take 1 [facility] mg tablet 2-25 tablet by [facility] f 00:00: mouth 2 [place] 00 (two) Medical times [facility] daily. Indication s: atrial fibrillati on KCL 20 mEq 2020-0 Yes [id number] 20meq Take 1 [facility] tablet 2-25 tablet by [facility] 00:00: mouth [place] 00 daily. [facility] furosemide 2020-0 Yes [id number] 40mg Take 1 [facility] 40 mg 2-25 tablet by [facility] tablet 00:00: mouth [place] 00 every Medical morning Branch and evening. apixaban 5 2020-0 Yes 1358 5mg Take 1 [facility] mg tablet 2-25 tablet by [facility] o f 00:00: mouth 2 [place] 00 (two) Medical times [facility] daily. Indication s: atrial fibrillati on KCL 20 mEq 2020-0 Yes [id number] 20meq Take 1 [facility] tablet 2-25 tablet by [facility] 00:00: mouth [place] 00 daily. [facility] furosemide 2020-0 Yes [id number] 40mg Take 1 [facility] 40 mg 2-25 tablet by [facility] tablet 00:00: mouth [place] 00 every Medical morning Branch and evening. apixaban 5 2020-0 Yes 1358 5mg Take 1 [facility] mg tablet 2-25 tablet by [facility] f 00:00: mouth 2 [place] 00 (two) Medical times [facility] daily. Indication s: atrial fibrillati on KCL 20 mEq 2020-0 Yes [id number] 20meq Take 1 [facility] tablet 2-25 tablet by [facility] 00:00: mouth [place] 00 daily. [facility] furosemide 2020-0 Yes [id number] 40mg Take 1 [facility] 40 mg 2-25 tablet by [facility] tablet 00:00: mouth [place] 00 every Medical morning Branch and evening. apixaban 5 2020-0 Yes 1358 5mg Take 1 [facility] mg tablet 2-25 tablet by [facility] f 00:00: mouth 2 [place] 00 (two) Medical times [facility] daily. Indication s: atrial fibrillati on KCL 20 mEq 2020-0 Yes [id number] 20meq Take 1 [facility] tablet 2-25 tablet by [facility] 00:00: mouth [place] 00 daily. [facility] furosemide 2020-0 Yes [id number] 40mg Take 1 [facility] 40 mg 2-25 tablet by [facility] tablet 00:00: mouth [place] 00 every Medical morning Branch and evening. apixaban 5 2020-0 Yes 1358 5mg Take 1 [facility] mg tablet 2-25 tablet by [facility] f 00:00: mouth 2 [place] 00 (two) Medical times [facility] daily. Indication s: atrial fibrillati on KCL 20 mEq 2020-0 Yes [id number] 20meq Take 1 [facility] tablet 2-25 tablet by [facility] 00:00: mouth [place] 00 daily. [facility] furosemide 2020-0 Yes [id number] 40mg Take 1 [facility] 40 mg 2-25 tablet by [facility] tablet 00:00: mouth [place] 00 every Medical morning Branch and evening. apixaban 5 2020-0 Yes 1358 5mg Take 1 [facility] mg tablet 2-25 tablet by [facility] o f 00:00: mouth 2 [place] 00 (two) Medical times [facility] daily. Indication s: atrial fibrillati on KCL 20 mEq 2020-0 Yes [id number] 20meq Take 1 [facility] tablet 2-25 tablet by [facility] 00:00: mouth [place] 00 daily. [facility] furosemide 2020-0 Yes [id number] 40mg Take 1 [facility] 40 mg 2-25 tablet by [facility] tablet 00:00: mouth [place] 00 every Medical morning Branch and evening. apixaban 5 2020-0 Yes 1358 5mg Take 1 [facility] mg tablet 2-25 tablet by [facility] f 00:00: mouth 2 [place] 00 (two) Medical times [facility] daily. Indication s: atrial fibrillati on KCL 20 mEq 2020-0 Yes [id number] 20meq Take 1 [facility] tablet 2-25 tablet by [facility] 00:00: mouth [place] 00 daily. [facility] furosemide 2020-0 Yes [id number] 40mg Take 1 [facility] 40 mg 2-25 tablet by [facility] tablet 00:00: mouth [place] 00 every Medical morning Branch and evening. apixaban 5 2020-0 Yes 1358 5mg Take 1 [facility] mg tablet 2-25 tablet by [facility] o f 00:00: mouth 2 [place] 00 (two) Medical times [facility] daily. Indication s: atrial fibrillati on KCL 20 mEq 2020-0 Yes [id number] 20meq Take 1 [facility] tablet 2-25 tablet by [facility] 00:00: mouth [place] 00 daily. [facility] furosemide 2020-0 Yes [id number] 40mg Take 1 [facility] 40 mg 2-25 tablet by [facility] tablet 00:00: mouth [place] 00 every Medical morning Branch and evening. apixaban 5 2020-0 Yes 1358 5mg Take 1 [facility] mg tablet 2-25 tablet by [facility] f 00:00: mouth 2 [place] 00 (two) Medical times [facility] daily. Indication s: atrial fibrillati on KCL 20 mEq 2020-0 Yes [id number] 20meq Take 1 [facility] tablet 2-25 tablet by [facility] 00:00: mouth [place] 00 daily. [facility] furosemide 2020-0 Yes [id number] 40mg Take 1 [facility] 40 mg 2-25 tablet by [facility] tablet 00:00: mouth [place] 00 every Medical morning Branch and evening. apixaban 5 2020-0 Yes 1358 5mg Take 1 [facility] mg tablet 2-25 tablet by [facility] o f 00:00: mouth 2 [place] 00 (two) Medical times [facility] daily. Indication s: atrial fibrillati on KCL 20 mEq 2020-0 Yes [id number] 20meq Take 1 [facility] tablet 2-25 tablet by [facility] 00:00: mouth [place] 00 daily. [facility] furosemide 2020-0 Yes [id number] 40mg Take 1 [facility] 40 mg 2-25 tablet by [facility] tablet 00:00: mouth [place] 00 every Medical morning Branch and evening. apixaban 5 2020-0 Yes 1358 5mg Take 1 [facility] mg tablet 2-25 tablet by [facility] o f 00:00: mouth 2 [place] 00 (two) Medical times [facility] daily. Indication s: atrial fibrillati on KCL 20 mEq 2020-0 Yes [id number] 20meq Take 1 [facility] tablet 2-25 tablet by [facility] 00:00: mouth [place] 00 daily. [facility] furosemide 2020-0 Yes [id number] 40mg Take 1 [facility] 40 mg 2-25 tablet by [facility] tablet 00:00: mouth [place] 00 every Medical morning Branch and evening. apixaban 5 2020-0 Yes 1358 5mg Take 1 [facility] mg tablet 2-25 tablet by [facility] o f 00:00: mouth 2 [place] 00 (two) Medical times [facility] daily. Indication s: atrial fibrillati on KCL 20 mEq 2020-0 Yes [id number] 20meq Take 1 [facility] tablet 2-25 tablet by [facility] 00:00: mouth [place] 00 daily. [facility] furosemide 2020-0 Yes [id number] 40mg Take 1 [facility] 40 mg 2-25 tablet by [facility] tablet 00:00: mouth [place] 00 every Medical morning Branch and evening. apixaban 5 2020-0 Yes 1358 5mg Take 1 [facility] mg tablet 2-25 tablet by [facility] f 00:00: mouth 2 [place] 00 (two) Medical times [facility] daily. Indication s: atrial fibrillati on KCL 20 mEq 2020-0 Yes [id number] 20meq Take 1 [facility] tablet 2-25 tablet by ity of 00:00: mouth [place] 00 daily. Medical Branch furosemide 2020-0 Yes [id number] 40mg Take 1 [facility] 40 mg 2-25 tablet by [facility]y of tablet 00:00: mouth [place] 00 every Medical morning Branch and evening. apixaban 5 2020-0 Yes 1358 5mg Take 1 [facility] mg tablet 2-25 tablet by ity o f 00:00: mouth 2 [place] 00 (two) Medical times Branch daily. Indication s: atrial fibrillati on KCL 20 mEq 2020-0 Yes [id number] 20meq Take 1 [facility] tablet 2-25 tablet by ity of 00:00: mouth [place] 00 daily. Medical Branch furosemide 2020-0 Yes [id number] 40mg Take 1 [facility] 40 mg 2-25 tablet by ity of tablet 00:00: mouth [place] 00 every Medical morning Branch and evening. apixaban 5 2020-0 Yes 1358 5mg Take 1 [facility] mg tablet 2-25 tablet by ity o f 00:00: mouth 2 [place] 00 (two) Medical times Branch daily. Indication s: atrial fibrillati on KCL 20 mEq 2020-0 Yes [id number] 20meq Take 1 [facility] tablet 2-25 tablet by ity of 00:00: mouth [place] 00 daily. Medical Branch furosemide 2020-0 Yes [id number] 40mg Take 1 [facility] 40 mg 2-25 tablet by ity of tablet 00:00: mouth [place] 00 every Medical morning Branch and evening. apixaban 5 2020-0 Yes 1358 5mg Take 1 [facility] rs mg tablet 2-25 tablet by ity o f 00:00: mouth 2 [place] 00 (two) Medical times Branch daily. Indication s: atrial fibrillati on KCL 20 mEq 2020-0 Yes [id number] 20meq Take 1 [facility] tablet 2-25 tablet by ity of 00:00: mouth [place] 00 daily. Medical Branch furosemide Yes 40mg Take [address] (LASIX) 40 2-25 by [facility]. [facility] tablet 00:[facility]: [facility] potassium 2019-0 Yes 20meq Take [address] [facility] chloride SA 2-25 mEq by [facility] (K-DUR,KLOR 00:00: mouth. [facility] -CON) 20 00 Center MEQ tablet sotalol 120 2020- No [id number] 120mg Take 1 [facility] mg tablet 2-25 03-22 tablet by ity of 00:00: 00:00 mouth [place] 00 :00 every 12 Medical (twelve) Branch hours. digoxin 125 2019- No [id number] 125ug Take 1 [facility] mcg (0.125 2-25 05-06 tablet by ity of mg) tablet 00:00: 00:00 mouth [place] 00 :00 daily. Medical Branch furosemide Yes [id number] 40mg Take 1 [facility] 40 mg 2-15 tablet by ity of tablet 00:00: mouth [place] 00 every Medical morning Branch and evening. Take 40 mg in AM and 20 mg in PM digoxin 125 Yes 125ug Take 1 [facility] vers mcg (0.125 2-15 tablet by ity of mg) tablet 00:00: mouth [place] 00 daily. Medical Branch sotalol 120 Yes [id number] 120mg Take 1 [facility] mg tablet 2-15 tablet by ity o f 00:00: mouth [place] 00 every 12 Medical (twelve) Branch hours. apixaban 5 2019- Yes 1358 5mg Take 1 [facility] mg tablet 2-15 tablet by ity o f 00:00: mouth 2 [place] 00 (two) Medical times Branch daily. Indication s: atrial fibrillati on furosemide 2019- No [id number] 40mg Take 1 [facility] 40 mg 2-15 02-25 tablet by ity of tablet 00:00: 00:00 mouth [place] 00 :00 every Medical morning Branch and evening. Take 40 mg in AM and 20 mg in PM digoxin 125 2020- No 125ug Take 1 [facility] mcg (0.125 2-15 02-25 tablet by ity of mg) tablet 00:00: 00:00 mouth [place] 00 :00 daily. Medical Branch sotalol 120 2019- No [id number] 120mg Take 1 [facility] mg tablet 2-15 -25 tablet by ity of 00:00: 00:00 mouth [place] 00 :00 every 12 Medical (twelve) Branch hours. apixaban 5 2019- No 1358 5mg Take 1 [facility] ers mg tablet 2-15 -25 tablet by ity of 00:00: 00:00 mouth 2 [place] 00 :00 (two) Medical times Branch daily. Indication s: atrial fibrillati on furosemide 2020- No [id number] 40mg Take 1 [facility] 40 mg 2-15 02-25 tablet by ity of tablet 00:00: 00:00 mouth [place] 00 :00 every Medical morning Branch and evening. Take 40 mg in AM and 20 mg in PM digoxin 125 2019- 2020- No 125ug Take 1 [facility] mcg (0.125 2-15 -25 tablet by ity of mg) tablet 00:00: 00:00 mouth [place] 00 :00 daily. Medical Branch sotalol 120 2019- No [id number] 120mg Take 1 [facility] mg tablet 215 -25 tablet by ity of 00:00: 00:00 mouth [place] 00 :00 every 12 Medical (twelve) Branch hours. apixaban 5 2019- No 1358 5mg Take 1 [facility] ers mg tablet 2-15 -25 tablet by ity of 00:00: 00:00 mouth 2 [place] 00 :00 (two) Medical times Branch daily. Indication s: atrial fibrillati on furosemide Yes [id number] 40mg Take 1 [facility] 40 mg 2-13 tablet by ity of tablet 00:00: mouth [place] 00 every Medical morning Branch and evening. digoxin 125 Yes 125ug Take 1 [facility] vers mcg (0.125 2-13 tablet by ity of mg) tablet 00:00: mouth [place] 00 daily. Medical Branch apixaban 5 0 Yes 1358 5mg Take 1 [facility] rs mg tablet 2-13 tablet by ity o f 00:00: mouth 2 [place] 00 (two) Medical times Branch daily. Indication s: atrial fibrillati on furosemide 2019- No [id number] 40mg Take 1 [facility] 40 mg 2-13 [...] Indication s: atrial fibrillati on furosemide 2019- No [id number] 40mg Take 1 [facility] 40 mg -15 [...] 5mg Take 1 [facility] ers mg tablet 05-15- tablet by ity of 00:00: 00:00 mouth 2 [place] 00 :00 (two) Medical times Branch daily. Indication s: atrial fibrillati on apixaban 5 Yes 1358 5mg Take 1 [facility] rs mg tablet 1-15 tablet by ity o f 00:00: mouth 2 [place] 00 (two) Medical times Branch daily. Indication s: atrial fibrillati on apixaban 5 2019- No 1358 5mg Take 1 [facility] ers mg tablet -17 05- tablet by ity of 00:00: 00:00 mouth 2 [place] 00 :00 (two) Medical times Branch daily. Indication s: atrial fibrillati on sotalol 120 2018-04 Yes [id number] 120mg Take 1 [facility] mg tablet 2-11 tablet by ity o f 00:00: mouth [place] 00 every 12 Medical (twelve) Branch hours. sotalol 120 2018-04 Yes [id number] 120mg Take 1 [facility] mg tablet 2-11 tablet by ity o f 00:00: mouth [place] 00 every 12 Medical (twelve) Branch hours. sotalol 120 2018-04- No [id number] 120mg Take 1 [facility] mg tablet 2-11 -12 tablet by ity of 00:00: 00:00 mouth [place] 00 :00 every 12 Medical (twelve) Branch hours. apixaban 5 2018-04 2020- No 1358 5mg Take 1 [facility] ers mg tablet 05-13 tablet by ity of 00:00: 00:00 mouth 2 [place] 00 :00 (two) Medical times Branch daily. Indication s: atrial fibrillati on digoxin 125 Yes 125ug Take 1 [facility] [...] 125ug Take 1 [facility] mcg tablet 12-13- tablet by ity of 00:00: 00:00 mouth [place] 00 :00 daily. Medical Branch furosemide Yes [id number] 40mg Take 1 [facility] 40 mg 9-05 tablet by ity of tablet 00:00: mouth [place] 00 every Medical morning Branch and evening. Take 40 mg in AM and 20 mg in PM furosemide Yes [id number] 40mg Take 1 [facility] 40 mg 9-05 tablet by ity of tablet 00:00: mouth [place] 00 every Medical morning Branch and evening. Take 40 mg in AM and 20 mg in PM furosemide Yes [id number] 40mg Take 1 [facility] 40 mg 9-05 tablet by ity of tablet 00:00: mouth [place] 00 every Medical morning Branch and evening. Take 40 mg in AM and 20 mg in PM furosemide Yes [id number] 40mg Take 1 [facility] 40 mg 9-05 tablet by ity of tablet 00:00: mouth [place] 00 every Medical morning Branch and evening. Take 40 mg in AM and 20 mg in PM furosemide Yes [id number] 40mg Take 1 [facility] 40 mg 9-05 tablet by ity of tablet 00:00: mouth [place] 00 every Medical morning Branch and evening. Take 40 mg in AM and 20 mg in PM furosemide Yes [id number] 40mg Take 1 [facility] 40 mg 9-05 tablet by ity of tablet 00:00: mouth [place] 00 every Medical morning Branch and evening. Take 40 mg in AM and 20 mg in PM furosemide 2020- No [id number] 40mg Take 1 [facility] 40 mg 9-05 -13 tablet by ity of tablet 00:00: 00:00 mouth [place] 00 :00 every Medical morning Branch and evening. Take 40 mg in AM and 20 mg in PM furosemide Yes [id number] 40mg Take 1 [facility] 40 mg 8-16 tablet by ity of tablet 00:00: mouth [place] 00 every Medical morning Branch and evening. Take 40 mg in AM and 20 mg in PM furosemide Yes [id number] 40mg Take 1 [facility] 40 mg 8-16 tablet by ity of tablet 00:00: mouth [place] 00 every Medical morning Branch and evening. Take 40 mg in AM and 20 mg in PM furosemide 2019- No [id number] 40mg Take 1 [facility] 40 mg 8-16 - tablet by ity of tablet 00:00: 00:00 [...] 00 daily. Medical Branch digoxin 125 2018-0 2019- No 125ug Take 1 [facility] ean mcg tablet 7-15 - tablet by ity of 00:00: 00:00 mouth [place] 00 :00 daily. Medical Branch furosemide 2019- No [id number] Take 40 mg [facility] 40 mg 7-15 08-16 in AM and ity of tablet 00:00: 00:00 20 mg in [place] 00 :00 PM Medical Branch apixaban 5 2018- Yes 5mg Take 1 [facility] rs mg [...] mouth ity of mg tablet 13:13: daily. [address] Branch abatacept Yes 2506 125mg inject 125 U nivers (ORENCIA) 4-15 mg under ity of 125 mg/mL 13:13: [place] injection 02 every Medical Sunday. Branch Indication s: ARTHRITIS meloxicam Yes 15mg Take 15 mg [facility] 15 mg 4-15 by mouth ity of tablet 13:13: daily. [address] predniSONE Yes 5mg Take 5 mg [facility] 5 mg tablet 4-15 by mouth ity of 13:13: daily. [address] Branch tofacitinib 2019-0 Yes 11mg Take 11 mg [facility] (XELJANZ 4-15 by mouth. ity of XR) 11 mg 13:13: [place] Tb24 [address] [place] [address] Branch buPROPion Yes 150mg Take 150 [facility] vers SR 4-15 mg by ity of (WELLBUTRIN 13:13: mouth [place] SR) 150 mg 02 daily. Medical SR tablet Indication Bran ch s: 1tab Qam 2tabs Qpm SERTraline Yes 50mg Take 50 mg [facility] nivers (ZOLOFT) 50 4-15 by mouth ity of mg tablet 13:13: daily. [address] abatacept 2019 Yes 2506 125mg inject 125 [facility] (ORENCIA) 4-15 mg under ity of 125 mg/mL 13:13: [place] injection 02 every Sunday. Branch Indication s: ARTHRITIS meloxicam 2019 Yes 15mg Take 15 mg [facility] 15 mg 4-15 by mouth ity of tablet 13:13: daily. [address] predniSONE 2019 Yes 5mg Take 5 mg [facility] 5 mg tablet 4-15 by mouth ity of 13:13: daily. [address] tofacitinib Yes 11mg Take 11 mg [facility] (XELJANZ 4-15 by mouth. ity of XR) 11 mg 13:13: [address] buPROPion Yes 150mg Take 150 [facility] vers SR 4-15 mg by ity of (WELLBUTRIN 13:13: mouth [place] SR) 150 mg 02 daily. Medical SR tablet Indication Bran ch s: 1tab Qam 2tabs Qpm SERTraline Yes 50mg Take 50 mg [facility] nivers (ZOLOFT) 50 4-15 by mouth ity of mg tablet 13:13: daily. [address] abatacept Yes 2506 125mg inject 125 [facility] nivers (ORENCIA) 4-15 mg under ity of 125 mg/mL 13:13: the [place] injection 02 every Sunday. Branch Indication s: ARTHRITIS meloxicam 2019 Yes 15mg Take 15 mg [facility] 15 mg 4-15 by mouth ity of tablet 13:13: daily. [address] predniSONE [address] Yes 5mg Take 5 mg [facility] 5 mg tablet 4-15 by mouth ity of 13:13: daily. [address] tofacitinib Yes 11mg Take 11 mg [facility] (XELJANZ 4-15 by mouth. ity of XR) 11 mg 13:13: [address] buPROPion Yes 150mg Take 150 [facility] vers SR 4-15 mg by ity of (WELLBUTRIN 13:13: mouth [place] SR) 150 mg 02 daily. Medical SR tablet Indication Bran ch s: 1tab Qam 2tabs Qpm SERTraline Yes 50mg Take 50 mg [facility] nivers (ZOLOFT) 50 4-15 by mouth ity of mg tablet 13:13: daily. [address] abatacept 2019 Yes 2506 125mg inject 125 [facility] n[facility] (ORENCIA) 4-15 mg under ity of 125 mg/mL 13:13: the [place] injection 02 every Sunday. Branch Indication s: ARTHRITIS meloxicam 2019 Yes 15mg Take 15 mg [facility] 15 mg 4-15 by mouth ity of tablet 13:13: daily. [address] predniSONE Yes 5mg Take 5 mg [facility] 5 mg tablet 4-15 by mouth ity of 13:13: daily. [address] tofacitinib Yes 11mg Take 11 mg [facility] (XELJANZ 4-15 by mouth. ity of XR) 11 mg 13:13: [address] buPROPion Yes 150mg Take 150 [facility] vers SR 4-15 mg by ity of (WELLBUTRIN 13:13: mouth [place] SR) 150 mg 02 daily. Medical SR tablet Indication Bran ch s: 1tab Qam 2tabs Qpm SERTraline Yes 50mg Take 50 mg U nivers (ZOLOFT) 50 4-15 by mouth ity of mg tablet 13:13: daily. [address] abatacept Yes 2506 125mg inject 125 [facility] nivers (ORENCIA) 4-15 mg under ity of 125 mg/mL 13:13: the [place] injection 02 every Sunday. Branch Indication s: ARTHRITIS meloxicam 2019 Yes 15mg Take 15 mg [facility] 15 mg 4-15 by mouth ity of tablet 13:13: daily. [address] predniSONE Yes 5mg Take 5 mg [facility] 5 mg tablet 4-15 by mouth ity of 13:13: daily. [address] tofacitinib Yes 11mg Take 11 mg [facility] (XELJANZ 4-15 by mouth. ity of XR) 11 mg 13:13: [address] buPROPion Yes 150mg Take 150 [facility] vers SR 4-15 mg by ity of (WELLBUTRIN 13:13: mouth [place] SR) 150 mg 02 daily. Medical SR tablet Indication Bran ch s: 1tab Qam 2tabs Qpm SERTraline 2019 Yes 50mg Take 50 mg U nivers (ZOLOFT) 50 4-15 by mouth ity of mg tablet 13:13: daily. [address] abatacept 2019 Yes 2506 125mg inject 125 [facility] nivers (ORENCIA) 4-15 mg under ity of 125 mg/mL 13:13: the [place] injection 02 every Sunday. Branch Indication s: ARTHRITIS meloxicam 2019 Yes 15mg Take 15 mg [facility] 15 mg 4-15 by mouth ity of tablet 13:13: daily. [address] predniSONE Yes 5mg Take 5 mg [facility] 5 mg tablet 4-15 by mouth ity of 13:13: daily. [address] tofacitinib Yes 11mg Take 11 mg [facility] (XELJANZ 4-15 by mouth. ity of XR) 11 mg 13:13: [address] buPROPion Yes 150mg Take 150 [facility] vers SR 4-15 mg by ity of (WELLBUTRIN 13:13: mouth [place] SR) 150 mg 02 daily. Medical SR tablet Indication Bran ch s: 1tab Qam 2tabs Qpm SERTraline Yes 50mg Take 50 mg U nivers (ZOLOFT) 50 4-15 by mouth ity of mg tablet 13:13: daily. [address] abatacept Yes 2506 125mg inject 125 [facility] nivers (ORENCIA) 4-15 mg under ity of 125 mg/mL 13:13: the [place] injection 02 every Sunday. Branch Indication s: ARTHRITIS meloxicam Yes 15mg Take 15 mg [facility] 15 mg 4-15 by mouth ity of tablet 13:13: daily. [address] predniSONE Yes 5mg Take 5 mg [facility] 5 mg tablet 4-15 by mouth ity of 13:13: daily. [address] tofacitinib Yes 11mg Take 11 mg [facility] (XELJANZ 4-15 by mouth. ity of XR) 11 mg 13:13: [address] buPROPion 2019-0 Yes 150mg Take 150 [facility] vers SR 4-15 mg by ity of (WELLBUTRIN 13:13: mouth [place] SR) 150 mg 02 daily. Medical SR tablet Indication Bran ch s: 1tab Qam 2tabs Qpm SERTraline Yes 50mg Take 50 mg U nivers (ZOLOFT) 50 4-15 by mouth ity of mg tablet 13:13: daily. [address] abatacept 2019 Yes 2506 125mg inject 125 U nivers (ORENCIA) 4-15 mg under ity of 125 mg/mL 13:13: the [place] injection 02 every Sunday. Branch Indication s: ARTHRITIS meloxicam 2019 Yes 15mg Take 15 mg [facility] 15 mg 4-15 by mouth ity of tablet 13:13: daily. [address] predniSONE 0 Yes 5mg Take 5 mg [facility] 5 mg tablet 4-15 by mouth ity of 13:13: daily. [address] tofacitinib Yes 11mg Take 11 mg [facility] (XELJANZ 4-15 by mouth. ity of XR) 11 mg 13:13: [address] meloxicam 0 Yes 15mg Take 15 mg [facility] 15 mg 4-15 by mouth ity of tablet 13:13: daily. [address] buPROPion 0 Yes 150mg Take 150 [facility] vers SR 4-15 mg by ity of (WELLBUTRIN 13:13: mouth [place] SR) 150 mg 02 daily. Medical SR tablet Indication Bran ch s: 1tab Qam 2tabs Qpm SERTraline Yes 50mg Take 50 mg U nivers (ZOLOFT) 50 4-15 by mouth ity of mg tablet 13:13: daily. [address] abatacept 2019 Yes 2506 125mg inject 125 U nivers (ORENCIA) 4-15 mg under ity of 125 mg/mL 13:13: the [place] injection 02 every Sunday. Branch Indication s: ARTHRITIS meloxicam 20190 Yes 15mg Take 15 mg [facility] 15 mg 4-15 by mouth ity of tablet 13:13: daily. [address] meloxicam 0 Yes 15mg Take 15 mg [facility] 15 mg 4-15 by mouth ity of tablet 13:13: daily. [address] predniSONE 2019 Yes 5mg Take 5 mg [facility] 5 mg tablet 4-15 by mouth ity of 13:13: daily. [address] meloxicam Yes 15mg Take 15 mg [facility] 15 mg 4-15 by mouth ity of tablet 13:13: daily. [address] tofacitinib Yes 11mg Take 11 mg [facility] (XELJANZ 4-15 by mouth. ity of XR) 11 mg 13:13: [place] Tb24 [address] [place] [address] meloxicam Yes 15mg Take 15 mg [facility] 15 mg 4-15 by mouth ity of tablet 13:13: daily. [address] meloxicam Yes 15mg Take 15 mg [facility] 15 mg 4-15 by mouth ity of tablet 13:13: daily. [address] meloxicam Yes 15mg Take 15 mg [facility] 15 mg 4-15 by mouth ity of tablet 13:13: daily. [address] meloxicam Yes 15mg Take 15 mg [facility] ena 15 mg 4-15 by mouth ity of tablet 13:13: daily. [address] meloxicam Yes 15mg Take 15 mg [facility] 15 mg 4-15 by mouth ity of tablet 13:13: daily. [address] meloxicam Yes 15mg Take 15 mg [facility] 15 mg 4-15 by mouth ity of tablet 13:13: daily. [address] buPROPion Yes 150mg Take 150 [facility] vers SR 4-15 mg by ity of (WELLBUTRIN 13:13: mouth [place] SR) 150 mg 02 daily. Medical SR tablet Indication Bran ch s: 1tab Qam 2tabs Qpm SERTraline Yes 50mg Take 50 mg U nivers (ZOLOFT) 50 4-15 by mouth ity of mg tablet 13:13: daily. [address] abatacept Yes 2506 125mg inject 125 [facility] nivers (ORENCIA) 4-15 mg under ity of 125 mg/mL 13:13: the [place] injection 02 every Sunday. Branch Indication s: ARTHRITIS meloxicam Yes 15mg Take 15 mg [facility] 15 mg 4-15 by mouth ity of tablet 13:13: daily. [address] predniSONE 2019 Yes 5mg Take 5 mg [facility] 5 mg tablet 4-15 by mouth ity of 13:13: daily. [address] tofacitinib Yes 11mg Take 11 mg [facility] (XELJANZ 4-15 by mouth. ity of XR) 11 mg 13:13: [address] buPROPion Yes 150mg Take 150 [facility] vers SR 4-15 mg by ity of (WELLBUTRIN 13:13: mouth [place] SR) 150 mg 02 daily. Medical SR tablet Indication Bran ch s: 1tab Qam 2tabs Qpm SERTraline Yes 50mg Take 50 mg U nivers (ZOLOFT) 50 4-15 by mouth ity of mg tablet 13:13: daily. [address] abatacept Yes 2506 125mg inject 125 U nivers (ORENCIA) 4-15 mg under ity of 125 mg/mL 13:13: the [place] injection 02 every Sunday. Branch Indication s: ARTHRITIS meloxicam Yes 15mg Take 15 mg [facility] 15 mg 4-15 by mouth ity of tablet 13:13: daily. [address] predniSONE Yes 5mg Take 5 mg [facility] 5 mg tablet 4-15 by mouth ity of 13:13: daily. [address] tofacitinib Yes 11mg Take 11 mg [facility] (XELJANZ 4-15 by mouth. ity of XR) 11 mg 13:13: [address] buPROPion Yes 150mg Take 150 Uni vers SR 4-15 mg by ity of (WELLBUTRIN 13:13: mouth [place] SR) 150 mg 02 daily. Medical SR tablet Indication Bran ch s: 1tab Qam 2tabs Qpm SERTraline Yes 50mg Take 50 mg U nivers (ZOLOFT) 50 4-15 by mouth ity of mg tablet 13:13: daily. [address] abatacept Yes 2506 125mg inject 125 U nivers (ORENCIA) 4-15 mg under ity of 125 mg/mL 13:13: the [place] injection 02 every Sunday. Branch Indication s: ARTHRITIS meloxicam 2019-0 Yes 15mg Take 15 mg [facility] 15 mg 4-15 by mouth ity of tablet 13:13: daily. [address] Branch predniSONE 2019-0 Yes 5mg Take 5 mg [facility] 5 mg tablet 4-15 by mouth ity of 13:13: daily. [address] Branch tofacitinib 2018-0 Yes 11mg Take 11 mg [facility] (XELJANZ 4-15 by mouth. ity of XR) 11 mg 13:13: [facility] [address] [place] [address] Branch meloxicam 2018-0 Yes 15mg Take 15 mg Un e[facility] 15 mg 4-15 by mouth ity of tablet 08:13: daily. [address] Branch sucralfate 2018-0 Yes 1g Take 1 [...] before Medical meals and Branch at bedtime. KCL 20 mEq 2018-0 Yes 20meq Take [...] by ity of tablet 00:00: mouth at [place] 00 bedtime. Medical Branch traZODONE 2018-0 Yes 50mg Take 1 Univer s 50 mg 6-19 tablet by ity of tablet 00:00: mouth at [place] 00 bedtime. Medical Branch traZODONE 2018-0 Yes 50mg Take 1 [facility] s 50 mg 6-19 tablet by ity of tablet 00:00: mouth at [place] 00 bedtime. Medical Branch traZODONE 2018-0 Yes 50mg Take 1 [facility] s 50 mg 6-19 tablet by ity of tablet 00:00: mouth at [place] 00 bedtime. Medical Branch traZODONE 2018-0 Yes 50mg Take 1 [facility] s 50 mg 6-19 tablet by ity of tablet 00:00: mouth at [place] [address] bedtime. Medical Branch traZODONE 2017-0 Yes 50mg Take 1 [facility] s 50 mg 6-19 tablet by ity of tablet 00:00: mouth at [place] [address] bedtime. Medical Branch traZODONE 2017-0 Yes 50mg Take 1 [facility] s 50 mg 6-19 tablet by ity of tablet 00:00: mouth at [place] [address] bedtime. Medical Branch traZODONE 2017-0 Yes 50mg Take 1 [facility] s 50 mg 6-19 tablet by ity of tablet 00:00: mouth at [place] [address] bedtime. Medical Branch traZODONE 0 Yes 50mg Take 1 [facility] s 50 mg 6-19 tablet by ity of tablet 00:00: mouth at [place] [address] bedtime. Medical Branch traZODONE 0 Yes 50mg Take 1 [facility] s 50 mg 6-19 tablet by ity of tablet 00:00: mouth at [place] [address] bedtime. Medical Branch traZODONE 2017-0 Yes 50mg Take 1 [facility] s 50 mg 6-19 tablet by ity of tablet 00:00: mouth at [place] [address] bedtime. Medical Branch traZODONE 0 Yes 50mg Take 1 [facility] s 50 mg 6-19 tablet by ity of tablet 00:00: mouth at [place] [address] bedtime. Medical Branch traZODONE 0 2020- No 50mg Take 1 [facility] rs 50 mg 6-19 02-25 tablet by ity of tablet 00:00: 00:00 mouth at [place] 00 :00 bedtime. Medical Branch traZODONE 0 2020- No 50mg Take 1 [facility] rs 50 mg 6-19 02-25 tablet by ity of tablet 00:00: 00:00 mouth at [place] 00 :00 bedtime. Medical Branch METHOTREXAT Yes [id number] Three tabs [facility] E SODIUM 7-31 PO Once a ity of 2.5 MG ORAL 00:00: week [place] TAB 00 Medical Branch FOLIC ACID 2007-0 Yes [id number] One tab PO [facility] 1 MG ORAL 7-31 Daily ity of TAB 00:00: [place] 00 Medical Branch METHOTREXAT 2007-0 Yes [id number] Three tabs [facility] E SODIUM 7-31 PO Once a ity of 2.5 MG ORAL 00:00: week [place] TAB 00 Medical Branch FOLIC ACID 20080 Yes [id number] One tab PO [facility] 1 MG ORAL 7-31 Daily ity of TAB 00:00: [place] Medical Branch METHOTREXAT 0 Yes [id number] Three tabs [facility] E SODIUM 7-31 PO Once a ity of 2.5 MG ORAL 00:00: week [place] TAB 00 Medical Branch FOLIC ACID 0 Yes [id number] One tab PO [facility] 1 MG ORAL 7-31 Daily ity of TAB 00:00: [place] Medical Branch METHOTREXAT Yes [id number] Three tabs [facility] E SODIUM 7-31 PO Once a ity of 2.5 MG ORAL 00:00: week [place] TAB 00 Medical Branch FOLIC ACID 0 Yes [id number] One tab PO [facility] 1 MG ORAL 7-31 Daily ity of TAB 00:00: [place] 00 Medical Branch METHOTREXAT 0 Yes [id number] Three tabs [facility] E SODIUM 7-31 PO Once a ity of 2.5 MG ORAL 00:00: week [place] TAB 00 Medical Branch FOLIC ACID 0 Yes [id number] One tab PO [facility] 1 MG ORAL 7-31 Daily ity of TAB 00:00: [place] 00 Medical Branch METHOTREXAT 0 Yes [id number] Three tabs [facility] E SODIUM 7-31 PO Once a ity of 2.5 MG ORAL 00:00: week [place] TAB 00 Medical Branch FOLIC ACID 0 Yes [id number] One tab PO [facility] 1 MG ORAL 7-31 Daily ity of TAB 00:00: [place] 00 Medical Branch METHOTREXAT 0 Yes [id number] Three tabs [facility] E SODIUM 7-31 PO Once a ity of 2.5 MG ORAL 00:00: week [place] TAB 00 Medical Branch FOLIC ACID 0 Yes [id number] One tab PO [facility] 1 MG ORAL 7-31 Daily ity of TAB 00:00: [place] 00 Medical Branch METHOTREXAT 0 Yes [id number] Three tabs [facility] E SODIUM 7-31 PO Once a ity of 2.5 MG ORAL 00:00: week [place] TAB 00 Medical Branch FOLIC ACID 0 Yes [id number] One tab PO [facility] 1 MG ORAL 7-31 Daily ity of TAB 00:00: [place] 00 Medical Branch METHOTREXAT 0 Yes [id number] Three tabs [facility] E SODIUM 7-31 PO Once a ity of 2.5 MG ORAL 00:00: week [place] TAB 00 Medical Branch FOLIC ACID Yes [id number] One tab PO [facility] 1 MG ORAL 7-31 Daily ity of TAB 00:00: [place] 00 Medical Branch METHOTREXAT Yes [id number] Three tabs [facility] E SODIUM 7-31 PO Once a ity of 2.5 MG ORAL 00:00: week [place] TAB 00 Medical Branch FOLIC ACID Yes [id number] One tab PO [facility] 1 MG ORAL 7-31 Daily ity of TAB 00:00: [place] 00 Medical Branch METHOTREXAT Yes [id number] Three tabs [facility] E SODIUM 7-31 PO Once a ity of 2.5 MG ORAL 00:00: week [place] TAB 00 Medical Branch FOLIC ACID Yes [id number] One tab PO [facility] 1 MG ORAL 7-31 Daily ity of TAB 00:00: [place] 00 Medical Branch METHOTREXAT Yes [id number] Three tabs [facility] E SODIUM 7-31 PO Once a ity of 2.5 MG ORAL 00:00: week [place] TAB 00 Medical Branch FOLIC ACID Yes [id number] One tab PO [facility] 1 MG ORAL 7-31 Daily ity of TAB 00:00: [place] 00 Medical Branch METHOTREXAT 2020- No [id number] Three tabs [facility] E SODIUM 7-31 02-25 PO Once a ity o f 2.5 MG ORAL 00:00: 00:00 week [place] TAB 00 :00 Medical Branch FOLIC ACID 2020- No [id number] One tab PO [facility] 1 MG ORAL 7-31 02-25 Daily ity of TAB 00:00: 00:00 [place] 00 :00 Medical Branch METHOTREXAT 2020- No [id number] Three tabs [facility] E SODIUM 7-31 02-25 PO Once a ity o f 2.5 MG ORAL 00:00: 00:00 week [place] TAB 00 :00 Medical Branch FOLIC ACID 2020- No [id number] One tab PO [facility] 1 MG ORAL 7-31 02-25 Daily ity of TAB 00:00: 00:00 [place] 00 :00 Medical Branch NITROGLYCER 0 Yes 1 Tab SL Un ean IN 0.4 MG 5-08 Q5MIN PRN ity o f SL SUBL 00:00: [place] [facility] Branch NITROGLYCER 0 Yes 1 Tab SL Un ean IN 0.4 MG 5-08 Q5MIN PRN ity o f SL SUBL 00:00: [place] [facility] Branch NITROGLYCER 0 Yes 1 Tab SL Un ean IN 0.4 MG 5-08 Q5MIN PRN ity o f SL SUBL 00:00: [place] [facility] Branch NITROGLYCER 0 Yes 1 Tab SL Un ean IN 0.4 MG 5-08 Q5MIN PRN ity o f SL SUBL 00:00: [place] [facility] NITROGLYCER Yes 1 Tab SL Un ean IN 0.4 MG 5-08 Q5MIN PRN ity o f SL SUBL 00:00: [place] [facility] NITROGLYCER 0 Yes 1 Tab SL Un ean IN 0.4 MG 5-08 Q5MIN PRN ity o f SL SUBL 00:00: [place] [facility] NITROGLYCER Yes 1 Tab SL Un ean IN 0.4 MG 5-08 Q5MIN PRN ity o f SL SUBL 00:00: [place] [facility] NITROGLYCER Yes 1 Tab SL Un ean IN 0.4 MG 5-08 Q5MIN PRN ity o f SL SUBL 00:00: [place] [facility] NITROGLYCER Yes 1 Tab SL Un ean IN 0.4 MG 5-08 Q5MIN PRN ity o f SL SUBL 00:00: [place] [facility] NITROGLYCER Yes 1 Tab SL Un ean IN 0.4 MG 5-08 Q5MIN PRN ity o f SL SUBL 00:00: [place] [facility] NITROGLYCER 0 Yes 1 Tab SL Un ean IN 0.4 MG 5-08 Q5MIN PRN ity o f SL SUBL 00:00: [place] [facility] NITROGLYCER 0 Yes 1 Tab SL Un ean IN 0.4 MG 5-08 Q5MIN PRN ity o f SL SUBL 00:00: [place] [facility] NITROGLYCER Yes 1 Tab SL Un ean IN 0.4 MG 5-08 Q5MIN PRN ity o f SL SUBL 00:00: [place] [facility] NITROGLYCER 0 Yes 1 Tab SL [...] o f SL SUBL 00:00: [place] [facility] NITROGLYCER Yes 1 Tab SL Un [...] o f SL SUBL 00:00: [place] [facility] NITROGLYCER Yes 1 Tab SL Un ean IN 0.4 MG 5-08 Q5MIN PRN ity o f SL SUBL 00:00: [place] [facility] NITROGLYCER Yes 1 Tab SL Un ean IN 0.4 MG 5-08 Q5MIN PRN ity o f SL SUBL 00:00: [place] [facility] NITROGLYCER Yes 1 Tab SL Un ean IN 0.4 MG 5-08 Q5MIN PRN ity o f SL SUBL 00:00: [place] [facility] NITROGLYCER Yes 1 Tab SL Un ean IN 0.4 MG 5-08 Q5MIN PRN ity o f SL SUBL 00:00: [place] [facility] NITROGLYCER Yes 1 Tab SL Un ean IN 0.4 MG 5-08 Q5MIN PRN ity o f SL SUBL 00:00: [place] [facility] NITROGLYCER Yes 1 Tab SL Un ean IN 0.4 MG 5-08 Q5MIN PRN ity o f SL SUBL 00:00: [place] [facility] NITROGLYCER Yes 1 Tab SL Un ean IN 0.4 MG 5-08 Q5MIN PRN ity o f SL SUBL 00:00: [place] [facility] NITROGLYCER Yes 1 Tab SL Un ean IN 0.4 MG 5-08 Q5MIN PRN ity o f SL SUBL 00:00: [place] [facility] NITROGLYCER Yes 1 Tab SL Un ean IN 0.4 MG 5-08 Q5MIN PRN ity o f SL SUBL 00:00: [place] [facility] NITROGLYCER Yes 1 Tab SL Un ean IN 0.4 MG 5-08 Q5MIN PRN ity o f SL SUBL 00:00: [place] [facility] NITROGLYCER Yes 1 Tab SL Un [...] o f SL SUBL 00:00: [place] [facility] NITROGLYCER Yes 1 Tab SL Un [...] ity o f SL SUBL 00:00: [place] [facility] NITROGLYCER 0 Yes 1 Tab SL Un ean IN 0.4 MG 5-08 Q5MIN PRN ity o f SL SUBL 00:00: [place] [facility] NITROGLYCER 2007-0 Yes 1 Tab SL Un ean IN 0.4 MG 5-08 Q5MIN PRN ity o f SL SUBL 00:00: [place] 00 [facility] NITROGLYCER 0 Yes 1 Tab SL Un ean IN 0.4 MG 5-08 Q5MIN PRN ity o f SL SUBL 00:00: [place] [facility] NITROGLYCER 0 Yes 1 Tab SL Un ean IN 0.4 MG 5-08 Q5MIN PRN ity o f SL SUBL 00:00: [place] 00 [facility] NITROGLYCER 2007-0 2023- No 1 Tab SL U nivers IN 0.4 MG 5-08 02-05 Q5MIN PRN ity of SL SUBL 00:00: 00:00 [place] 00 :00 [facility] NITROGLYCER 2007-0 2023- No 1 Tab SL U nivers IN 0.4 MG 5-08 02-05 Q5MIN PRN ity of SL SUBL 00:00: 00:00 [place] 00 :00 [facility] NITROGLYCER 2007-0 2023- No 1 Tab SL U nivers IN 0.4 MG 5-08 02-05 Q5MIN PRN ity of SL SUBL 00:00: 00:00 [place] 00 :00 [facility] NITROGLYCER 2007-0 2023- No 1 Tab SL U nivers IN 0.4 MG 5-08 02-05 Q5MIN PRN ity of SL SUBL 00:00: 00:00 [place] 00 :00 [facility] NITROGLYCER 2007-0 2023- No 1 Tab SL U nivers IN 0.4 MG 5-08 02-05 Q5MIN PRN ity of SL SUBL 00:00: 00:00 [place] 00 :00 [facility] Vital Signs Vital Name Observation Time Observation Value Comments Source Systolic blood 2022-08-29 119 mm[Hg] [facility] pressure 15:43:00 [facility] Diastolic blood 2022-08-29 51 mm[Hg] [facility] pressure 15:43:00 [facility] Heart rate 2022-08-29 51 /min [facility] 15:43:00 [facility] Body temperature 2022-08-29 36.11 Lay [facility] 15:43:00 [place] [facility] Respiratory rate 2022-08-29 18 /min [facility] 15:43:00 [facility] Body weight 2022-08-29 100.925 kg University of 15:43:00 [facility] BMI 2022-08-29 32.86 kg/m2 University of 15:43:00 [facility] Oxygen saturation 2022-08-29 98 /min [facility] of in Arterial blood 15:43:00 [place] [facility] Pulse oximetry [facility] Systolic blood 2022-08-21 103 mm[Hg] [facility] pressure 19:00:00 [place] [facility] Diastolic blood 2022-08-21 48 mm[Hg] University o f pressure 19:00:00 [facility] Heart rate 2022-08-21 53 /min [facility] 19:00:00 [facility] Body temperature 2022-08-21 35.94 Lay University [facility] 19:00:00 [facility] Respiratory rate 2022-08-21 18 /min [facility] 19:00:00 [facility] Body weight 2022-08-21 100.88 kg University of 19:00:00 [facility] BMI 2022-08-21 32.84 kg/m2 University of 19:00:00 [facility] Oxygen saturation 2022-08-21 95 /min [facility] in Arterial blood 19:00:00 [place] [facility] Pulse oxim[facility] Systolic blood 2022-07-13 127 mm[Hg] [facility] pressure 21:10:00 [place] [facility] Diastolic blood 2022-07-13 67 mm[Hg] University o f pressure 21:10:00 [facility] Heart rate 2022-07-13 57 /min [facility] 21:10:00 [facility] Body temperature 2022-07-13 36.06 Lay [facility] 21:10:00 [facility] Respiratory rate 2022-07-13 20 /min [facility] 21:10:00 [facility] Oxygen saturation 2022-07-13 95 /min [facility] in Arterial blood 21:10:00 [place] [facility] Pulse oxim[facility] Systolic blood 2022-07-10 149 mm[Hg] [facility] pressure 21:15:00 [place] [facility] Diastolic blood 2022-07-10 68 mm[Hg] University o f pressure 21:15:00 [facility] Heart rate 2022-07-10 56 /min [facility] of 21:15:00 [facility] Body temperature 2022-07-10 35.89 Lay University [facility] 21:15:00 [facility] Respiratory rate 2022-07-10 18 /min [facility] of 21:15:00 [facility] Oxygen saturation 2022-07-10 97 /min University of in Arterial blood 21:15:00 [facility]olas by Pulse oximetry [facility] Body temperature 2022-06-30 38.5 Lay University [facility] 19:46:00 [facility] Oxygen saturation 2022-06-30 95 /min University of in Arterial blood 19:46:00 [facility]olas by Pulse oximetry [facility] Systolic blood 2022-06-30 119 mm[Hg] [facility] pressure 19:39:00 [facility] Diastolic blood 2022-06-30 52 mm[Hg] University o f pressure 19:39:00 [facility] Heart rate 2022-06-30 62 /min [facility] of 19:39:00 [facility] Respiratory rate 2022-06-30 19 /min [facility] of 19:39:00 [facility] Body height 2022-06-30 175.3 cm University of 19:39:00 [facility] Systolic blood 2022-06-22 123 mm[Hg] [facility] pressure 19:52:00 [place] [facility] Diastolic blood 2022-06-22 55 mm[Hg] University o f pressure 19:52:00 [facility] Heart rate 2022-06-22 57 /min University of 19:52:00 [facility] Body temperature 2022-06-22 36.33 Lay University [facility] 19:52:00 [facility] Respiratory rate 2022-06-22 18 /min [facility] 19:52:00 [facility] Body weight 2022-06-22 105.144 kg University [facility] 19:52:00 [facility] BMI 2022-06-22 34.23 kg/m2 University of 19:52:00 [facility] Oxygen saturation 2022-06-22 98 /min University of in Arterial blood 19:52:00 [facility] by Pulse oximetry Branch Systolic blood 2022-06-20 108 mm[Hg] [facility] of pressure 16:11:00 [facility] Diastolic blood 2022-06-20 61 mm[Hg] University o f pressure 16:11:00 [facility] Heart rate 2022-06-20 67 /min University of 16:11:00 [facility] Body temperature 2022-06-20 36.44 Lay University [facility] 16:11:00 [facility] Respiratory rate 2022-06-20 18 /min University of 16:11:00 [facility] Body weight 2022-06-20 106.641 kg University of 16:11:00 [facility] BMI 2022-06-20 34.72 kg/m2 University of 16:11:00 [facility] Oxygen saturation 2022-06-20 100 /min [facility] in Arterial blood 16:11:00 [place] [facility] Pulse oxim[facility] Systolic blood 2022-06-19 124 mm[Hg] [facility] pressure 17:09:00 [facility] Diastolic blood 2022-06-19 57 mm[Hg] University o f pressure 17:09:00 [facility] Heart rate 2022-06-19 55 /min [facility] 17:09:00 [facility] Body temperature 2022-06-19 35.67 Lay University [facility] 17:09:00 [facility] Respiratory rate 2022-06-19 18 /min University [facility] 17:09:00 [facility] Body weight 2022-06-19 107.1 kg University of 17:09:00 [facility] BMI 2022-06-19 34.87 kg/m2 University of 17:09:00 [facility] Oxygen saturation 2022-06-19 95 /min [facility] of in Arterial blood 17:09:00 [facility]olas by Pulse oximetry [facility] Systolic blood 2022-06-15 111 mm[Hg] [facility] of pressure 19:45:00 [facility] Diastolic blood 2022-06-15 63 mm[Hg] University o f pressure 19:45:00 [facility] Heart rate 2022-06-15 51 /min University of 19:45:00 [facility] Body temperature 2022-06-15 36.22 Lay University [facility] 19:45:00 [facility] Respiratory rate 2022-06-15 18 /min University of 19:45:00 [facility] Body weight 2022-06-15 105.96 kg University of 19:45:00 [facility] BMI 2022-06-15 34.50 kg/m2 University of 19:45:00 [facility] Oxygen saturation 2022-06-15 95 /min [facility] in Arterial blood 19:45:00 [place] [facility] Pulse oximetry [facility] Systolic blood 2022-06-12 131 mm[Hg] [facility] of pressure 17:20:00 [facility] Diastolic blood 2022-06-12 59 mm[Hg] University o f pressure 17:20:00 [facility] Heart rate 2022-06-12 48 /min University of 17:20:00 [facility] Oxygen saturation 2022-06-12 95 /min [facility] in Arterial blood 17:20:00 [place] [facility] Body temperature 2022-06-12 36 Lay University [facility] 17:19:00 [facility] Respiratory rate 2022-06-12 18 /min University of 17:19:00 [facility] Body weight 2022-06-12 106.913 kg University of 17:19:00 [facility] BMI 2022-06-12 34.81 kg/m2 University of 17:19:00 [facility] Systolic blood 2022-06-08 162 mm[Hg] University of pressure 21:20:00 [facility] Diastolic blood 2022-06-08 67 mm[Hg] University o f pressure 21:20:00 [facility] Heart rate 2022-06-08 45 /min University of 21:20:00 [facility] Body temperature 2022-06-08 35.67 Lay University [facility] 21:20:00 [facility] Respiratory rate 2022-06-08 16 /min University of 21:20:00 [facility] Body height 2022-06-08 175.3 cm University of 21:20:00 [facility] Body weight 2022-06-08 106.459 kg University of 21:20:00 [facility] BMI 2022-06-08 34.66 kg/m2 University of 21:20:00 [facility] Oxygen saturation 2022-06-08 95 /min [facility] in Arterial blood 21:20:00 [place] [facility] Pulse oxim[facility] Systolic blood 2022-06-05 132 mm[Hg] [facility] of pressure 19:54:00 [place] [facility] Diastolic blood 2022-06-05 55 mm[Hg] University o f pressure 19:54:00 [facility] Heart rate 2022-06-05 52 /min University of 19:54:00 [facility] Oxygen saturation 2022-06-05 95 /min [facility] of in Arterial blood 19:54:00 [place] [facility] Body temperature 2022-06-05 36.06 Lay University [facility] 19:53:00 [place] [facility] Respiratory rate 2022-06-05 20 /min University of 19:53:00 [facility] Body weight 2022-06-05 107.321 kg University of 19:53:00 [facility] BMI 2022-06-05 34.94 kg/m2 University of 19:53:00 [facility] Systolic blood 2022-06-01 120 mm[Hg] University of pressure 20:27:00 [facility] Diastolic blood 2022-06-01 56 mm[Hg] University o f pressure 20:27:00 [facility] Heart rate 2022-06-01 50 /min University of 20:27:00 [facility] Body temperature 2022-06-01 36.44 Lay University [facility] 20:27:00 [facility] Respiratory rate 2022-06-01 18 /min University of 20:27:00 [facility] Body weight 2022-06-01 104.282 kg University of 20:27:00 [facility] BMI 2022-06-01 33.95 kg/m2 University of 20:27:00 [facility] Oxygen saturation 2022-06-01 94 /min [facility] of in Arterial blood 20:27:00 [facility] by Pulse oximetry Branch Systolic blood 2022-05-30 146 mm[Hg] [facility] pressure 21:36:00 [facility] Diastolic blood 2022-05-30 57 mm[Hg] University o f pressure 21:36:00 [facility] Heart rate 2022-05-30 53 /min University of 21:34:00 [facility] Body temperature 2022-05-30 36.17 Lay University [facility] 21:34:00 [facility] Respiratory rate 2022-05-30 18 /min University of 21:34:00 [facility] Body weight 2022-05-30 106.505 kg University of 21:34:00 [facility] BMI 2022-05-30 34.67 kg/m2 University of 21:34:00 [facility] Oxygen saturation 2022-05-30 95 /min [facility] in Arterial blood 21:34:00 [place] [facility] Pulse o[facility] Systolic blood 2022-05-29 128 mm[Hg] [facility] of pressure 18:06:00 [facility] Diastolic blood 2022-05-29 63 mm[Hg] University o f pressure 18:06:00 [facility] Heart rate 2022-05-29 58 /min University of 18:06:00 [facility] Body temperature 2022-05-29 35.78 Lay University [facility] 18:06:00 [facility] Respiratory rate 2022-05-29 18 /min University of 18:06:00 [facility] Body weight 2022-05-29 106.7 kg University of 18:06:00 [facility] BMI 2022-05-29 34.74 kg/m2 University of 18:06:00 [facility] Oxygen saturation 2022-05-29 92 /min [facility] in Arterial blood 18:06:00 [place] [facility] Pulse oxim[facility] Systolic blood 2022-05-26 156 mm[Hg] [facility] pressure 19:46:00 [place] [facility] Diastolic blood 2022-05-26 67 mm[Hg] University o f pressure 19:46:00 [facility] Heart rate 2022-05-26 57 /min University of 19:46:00 [facility] Body temperature 2022-05-26 35.61 Lay University [facility] 19:46:00 [facility] Respiratory rate 2022-05-26 16 /min University of 19:46:00 [facility] Body height 2022-05-26 175.3 cm University of 19:46:00 [facility] Body weight 2022-05-26 106.232 kg University of 19:46:00 [facility] BMI 2022-05-26 34.59 kg/m2 University of 19:46:00 [facility] Oxygen saturation 2022-05-26 95 /min University of in Arterial blood 19:46:00 [facility] by Pulse oximetry Branch Systolic blood 2022-05-22 133 mm[Hg] University of pressure 18:07:00 [place] [facility] Diastolic blood 2022-05-22 59 mm[Hg] University o f pressure 18:07:00 [facility] Heart rate 2022-05-22 51 /min University of 18:07:00 [facility] Body temperature 2022-05-22 36.17 Lay University [facility] 18:07:00 [facility] Respiratory rate 2022-05-22 18 /min University of 18:07:00 [facility] Body height 2022-05-22 169.3 cm University of 18:07:00 [facility] Body weight 2022-05-22 107.3 kg University of 18:07:00 [facility] BMI 2022-05-22 37.44 kg/m2 University of 18:07:00 [facility] Oxygen saturation 2022-05-22 92 /min University of in Arterial blood 18:07:00 [facility] by Pulse oximetry Branch Systolic blood 2022-05-04 123 mm[Hg] University of pressure 14:55:00 [facility] Diastolic blood 2022-05-04 58 mm[Hg] University o f pressure 14:55:00 [facility] Heart rate 2022-05-04 59 /min University of 14:55:00 [facility] Body temperature 2022-05-04 35.83 Lay University [facility] 14:55:00 [facility] Respiratory rate 2022-05-04 20 /min University of 14:55:00 [facility] Body height 2022-05-04 168.8 cm Verified with University of 14:55:00 [place] [facility] Body weight 2022-05-04 104.69 kg Verified with University of 14:55:00 [place] [facility] BMI 2022-05-04 36.74 kg/m2 University of 14:55:00 [facility] Oxygen saturation 2022-05-04 98 /min University of in Arterial blood 14:55:00 [facility] by Pulse oximetry Branch Systolic blood 2022-05-02 159 mm[Hg] University of pressure 20:52:00 [facility] Diastolic blood 2022-05-02 72 mm[Hg] University o f pressure 20:52:00 [facility] Heart rate 2022-05-02 64 /min University of 20:49:00 [facility] Body temperature 2022-05-02 36.39 Lay University [facility] 20:49:00 [facility] Respiratory rate 2022-05-02 20 /min University of 20:49:00 [facility] Body weight 2022-05-02 105.87 kg University of 20:49:00 [facility] BMI 2022-05-02 37.11 kg/m2 University of 20:49:00 [facility] Oxygen saturation 2022-05-02 98 /min University of in Arterial blood 20:49:00 [facility] by Pulse oximetry Branch Systolic blood 2022-04-11 158 mm[Hg] University of pressure 14:59:00 [facility] Diastolic blood 2022-04-11 63 mm[Hg] University o f pressure 14:59:00 [facility] Body height 2022-04-11 168.9 cm Verified with University of 14:59:00 [place] [facility] Body weight 2022-04-11 104.327 kg Verified with University of 14:59:00 [place] [facility] BMI 2022-04-11 36.57 kg/m2 University of 14:59:00 [facility] Heart rate 2022-04-11 51 /min University of 14:44:00 [facility] Body temperature 2022-04-11 36.56 Lay University [facility] 14:44:00 [facility] Respiratory rate 2022-04-11 18 /min University of 14:44:00 [facility] Oxygen saturation 2022-04-11 96 /min [facility] Arterial blood 14:44:00 [facility] by Pulse oximetry [place] Systolic blood 2022-03-16 140 mm[Hg] University of pressure 20:58:00 [facility] Diastolic blood 2022-03-16 67 mm[Hg] University o f pressure 20:58:00 [facility] Heart rate 2022-03-16 78 /min University of 20:57:00 [facility] Body temperature 2022-03-16 36.78 Lay University [facility] 20:57:00 [facility] Respiratory rate 2022-03-16 18 /min University of 20:57:00 [facility] Body height 2022-03-16 175.3 cm University of 20:57:00 [facility] Body weight 2022-03-16 103.42 kg University of 20:57:00 [facility] BMI 2022-03-16 33.67 kg/m2 University of 20:57:00 [facility] Systolic blood 2022-03-10 151 mm[Hg] University of pressure 20:11:00 [facility] Diastolic blood 2022-03-10 61 mm[Hg] University o f pressure 20:11:00 [facility] Heart rate 2022-03-10 104 /min [facility] of 20:00:00 [facility] Body temperature 2022-03-10 36.28 Lay [facility] 20:00:00 [facility] Respiratory rate 2022-03-10 18 /min [facility] 20:00:00 [facility] Body height 2022-03-10 175.3 cm University of 20:00:00 [facility] Body weight 2022-03-10 102.604 kg University of 20:00:00 [facility] BMI 2022-03-10 33.40 kg/m2 University of 20:00:00 [facility] Systolic blood 2022-02-14 152 mm[Hg] University of pressure 17:28:00 [facility] Diastolic blood 2022-02-14 68 mm[Hg] University o f pressure 17:28:00 [facility] Heart rate 2022-02-14 55 /min [facility] 17:10:00 [facility] Body temperature 2022-02-14 36.78 Lay [facility] 17:10:00 [facility] Respiratory rate 2022-02-14 18 /min [facility] 17:10:00 [facility] Body height 2022-02-14 175.3 cm University of 17:10:00 [facility] Body weight 2022-02-14 102.967 kg University of 17::00 [facility] BMI 2022-02-14 33.52 kg/m2 University of 17::00 [facility] WEIGHT 2020-03-03 91.491 kg 11:02:00 Systolic blood 2019-05-27 133 mm[Hg] University of pressure 15:46:00 [facility] Diastolic blood 2019-05-27 69 mm[Hg] University o f pressure 15:46:00 [facility] Heart rate 2019-05-27 67 /min [facility] of 15:46:00 [facility] Respiratory rate 2019-05-27 19 /min [facility] 15:46:00 [facility] Body height 2019-05-27 180.3 cm University of 15:46:00 [facility] Body weight 2019-05-27 91.853 kg University of 15:46:00 [facility] BMI 2019-05-27 28.24 kg/m2 University of 15:46:00 [facility] Oxygen saturation 2019-05-27 97 /min [facility] in Arterial blood 15:46:00 [facility] Pulse oximetry Branch Systolic blood 2019-05-27 133 mm[Hg] University of pressure 15:46:00 [facility] Diastolic blood 2019-05-27 69 mm[Hg] University o f pressure 15:46:00 [facility] Heart rate 2019-05-27 67 /min [facility] of 15:46:00 [facility] Respiratory rate 2019-05-27 19 /min [facility] of 15:46:00 [facility] Body height 2019-05-27 180.3 cm [facility] 15:46:00 [facility] Body weight 2019-05-27 91.853 kg [facility] 15:46:00 [facility] BMI 2019-05-27 28.24 kg/m2 [facility] 15:46:00 [facility] Oxygen saturation 2019-05-27 97 /min [facility] in Arterial blood 15:46:00 [facility] by Pulse oximetry Branch Systolic blood 2020-09-29 104 mm[Hg] [facility] pressure 18:38:00 [facility] Diastolic blood 2020-09-29 64 mm[Hg] [facility] pressure 18:38:00 [facility] Heart rate 2020-09-29 114 /min [facility]ism 18:38:00 [facility] Body temperature 2020-09-29 36.22 Lay [facility] 18:38:00 Hospital Respiratory rate 2020-09-29 18 /min Jainism 18:38:00 [facility] Body height 2020-09-29 175.3 cm [facility]ism 18:38:00 [facility] Body weight 2020-09-29 87.726 kg [facility]ism 18:38:00 [facility] BMI 2020-09-29 28.56 kg/m2 [facility] 18:38:00 [facility] Oxygen saturation 2020-09-29 97 /min [facility] in Arterial blood 18:38:00 Hospital by Pulse oximetry Procedures Procedure Date / Time Performing Clinician Source Performed POCT GLUCOSE (AUTOMATED) 2022-10-27 15:20:00 [facility] RAD ONC MSQ TREATMENT 2022-07-17 20:51:00 Doctor Unassigned, No [facility] SUMMARY Name [facility] RAD ONC MSQ TREATMENT 2022-07-14 20:22:00 Doctor Unassigned, No [facility] SUMMARY Name [facility] RAD ONC MSQ TREATMENT 2022-07-13 21:04:00 Doctor Unassigned, No [facility] SUMMARY Name [facility] RAD ONC MSQ TREATMENT 2022-07-12 21:01:00 Doctor Unassigned, No [facility] SUMMARY Name [facility] RAD ONC MSQ TREATMENT 2022-07-10 21:17:00 Doctor Unassigned, No [facility] SUMMARY Name [facility] RAD ONC MSQ TREATMENT 2022-06-28 19:26:00 Doctor Unassigned, No [facility] SUMMARY Name [facility] RAD ONC MSQ TREATMENT 2022-06-27 19:28:00 Doctor Unassigned, No [facility] SUMMARY Name [facility] RAD ONC MSQ TREATMENT 2022-06-26 19:47:00 Doctor Unassigned, No [facility] SUMMARY Name [facility] XR CHEST 2 VW 2022-06-22 21:34:35 [facility] RAD ONC MSQ TREATMENT 2022-06-22 21:10:00 Doctor Unassigned, No [facility] SUMMARY Name [facility] RAD ONC MSQ TREATMENT 2022-06-20 15:47:00 Doctor Unassigned, No [facility] SUMMARY Name [facility] RAD ONC MSQ TREATMENT 2022-06-19 20:58:00 Doctor Unassigned, No [facility] SUMMARY Name [facility] RAD ONC MSQ TREATMENT 2022-06-15 19:42:00 Doctor Unassigned, No [facility] SUMMARY Name [facility] RAD ONC MSQ TREATMENT 2022-06-14 19:11:00 Doctor Unassigned, No [facility] SUMMARY Name [facility] RAD ONC MSQ TREATMENT 2022-06-13 19:38:00 Doctor Unassigned, No [facility] SUMMARY Name [facility] RAD ONC MSQ TREATMENT 2022-06-09 21:20:00 Doctor Unassigned, No [facility] SUMMARY Name [facility] RAD ONC MSQ TREATMENT 2022-06-08 21:02:00 Doctor Unassigned, No [facility] SUMMARY Name [facility] RAD ONC MSQ TREATMENT 2022-06-07 20:53:00 Doctor Unassigned, No [facility] SUMMARY Name [facility] RAD ONC MSQ TREATMENT 2022-06-06 20:41:00 Doctor Unassigned, No [facility] SUMMARY Name [facility] RAD ONC MSQ TREATMENT 2022-06-02 20:36:00 Doctor Unassigned, No [facility] SUMMARY Name [facility] RAD ONC MSQ TREATMENT 2022-06-01 20:11:00 Doctor Unassigned, No [facility] SUMMARY Name [facility] RAD ONC MSQ TREATMENT 2022-05-31 21:40:00 Doctor Unassigned, No [facility] SUMMARY Name [facility] RAD ONC MSQ TREATMENT 2022-05-30 20:00:00 Doctor Unassigned, No [facility] SUMMARY Name [facility] RAD ONC MSQ TREATMENT 2022-05-29 20:28:00 Doctor Unassigned, No [facility] RAD ONC MSQ TREATMENT 2022-05-26 19:37:00 Doctor Unassigned, No [facility] RAD ONC MSQ TREATMENT 2022-05-25 19:47:00 Doctor Unassigned, No [facility] RAD ONC MSQ TREATMENT 2022-05-24 20:58:00 Doctor Unassigned, No [facility] RAD ONC MSQ TREATMENT 2022-05-23 21:02:00 Doctor Unassigned, No [facility] RAD ONC MSQ TREATMENT 2022-05-22 21:33:00 Doctor Unassigned, No [facility] INSURANCE CORRESPONDENCE 2022-05-05 06:01:00 Doctor Unassigned, No [facility] DISCLOSURE AND CONSENT, 2022-05-04 06:01:00 Doctor Unassigned, N o [facility] SURGICAL [facility] PROCEDURES URINALYSIS MICROSCOPIC 2022-05-02 21:52:00 Carina Emerson [facility] URINE CULTURE 2022-05-02 21:52:00 Idania Carina [facility] DISCLOSURE AND CONSENT, 2022-05-02 06:01:00 Doctor Unassigned, N o [facility] SURGICAL [facility] PROCEDURES POCT GLUCOSE (AUTOMATED) 2022-04-27 15:06:00 Penny Mcrae [facility] XR CHEST 2 VW 2022-04-27 14:10:38 Helder Albright [facility] REFERRAL- 2022-04-11 06:01:00 Doctor Unassigned, No [facility] REQUEST/RESPONSE [facility] REFERRAL- 2022-03-28 06:01:00 Doctor Unassigned, No [facility] REQUEST/RESPONSE [facility] DISCLOSURE AND CONSENT 2022-03-10 06:01:00 Doctor Unassigned, No [facility] SURGICAL [facility] Bran h PROCEDURES - FEMALM ASSIGNMENT OF BENEFITS 2022-02-14 16:42:49 Doctor Unassigned, No [facility] COMPREHENSIVE METABOLIC 2020-09-22 09:47:00 [facility] PANEL [place] HC COMPLETE BLD COUNT 2020-09-22 09:47:00 [facility] [place] MAGNESIUM LEVEL 2020-09-22 09:47:00 Latanya Alcantara Ho spital [place] PHOSPHORUS LEVEL 2020-09-22 09:47:00 Latanya Alcantaraist H ospital [place] PROTHROMBIN TIME WITH INR 2020-09-22 09:47:00 [facility] [place] PARTIAL THROMBOPLASTIN 2020-09-22 09:47:00 [facility] Hospital TIME (PTT) [place] ESTIMATED GFR 2020-09-22 09:47:00 [facility] METABOLIC 2020-09-21 07:16:00 [facility] PANEL [place] HC COMPLETE BLD COUNT 2020-09-21 07:16:00 [place] [facility] W/AUTO DIFF [place] MAGNESIUM LEVEL 2020-09-21 07:16:00 Latanya Alcantara Ho spital [place] PHOSPHORUS LEVEL 2020-09-21 07:16:00 [facility] [place] PROTHROMBIN TIME WITH INR 2020-09-21 07:16:00 Quinton [facility] [place] PARTIAL THROMBOPLASTIN 2020-09-21 07:16:00 [facility] TIME (PTT) [place] ESTIMATED GFR 2020-09-21 07:16:00 [facility] Flex PARTIAL THROMBOPLASTIN 2020-09-20 22:57:00 [facility] TIME (PTT) [facility] COMPLETE BLD COUNT 2020-09-20 08:49:00 Nish Zelaya [facility] W/AUTO DIFF MAGNESIUM LEVEL 2020-09-20 08:49:00 Nish Zelaya [facility] PHOSPHORUS LEVEL 2020-09-20 08:49:00 Nish Zelaya [facility] PROTHROMBIN TIME WITH INR 2020-09-20 08:49:00 [facility] [place] ESTIMATED GFR 2020-09-20 08:49:00 Jean-Paul Ambrose spital COMPREHENSIVE METABOLIC 2020-09-20 08:49:00 Halie [facility] PANEL SMEAR REVIEW 2020-09-20 08:49:00 Jean-Paul Ambrose Ho spital HC COMPLETE BLD COUNT 2020-09-19 21:53:00 Nish Zelaya [facility] W/AUTO DIFF [place] AN ELECTIVE 2020-09-19 15:12:00 Bianca Ricketts [facility] ENDOTRACHEAL AIRWAY CHOLECYSTECTOMY, 2020-09-19 15:08:00 Kenny Mera H ospital LAPAROSCOPIC SURGICAL PATHOLOGY 2020-09-19 13:02:00 [facility] 12-LEAD 2020-09-19 12:36:52 Krista Rey [facility] HC COMPLETE BLD COUNT 2020-09-19 07:02:00 [place] [facility] W/AUTO DIFF [place] COMPREHENSIVE METABOLIC 2020-09-19 07:02:[address] [facility] PANEL [place] MAGNESIUM LEVEL 2020-09-19 07:02:00 Latanya Alcantara spital [place] PHOSPHORUS LEVEL 2020-09-19 07:02:00 Latanya Alcantara ospital [place] PARTIAL THROMBOPLASTIN 2020-09-19 07:02:00 [facility] TIME (PTT) PROTHROMBIN TIME WITH INR 2020-09-19 07:02:00 [facility] Govind [facility] TYPE AND SCREEN 2020-09-19 07:02:00 [facility] GovindDiannh Jainism Ho spital ESTIMATED GFR 2020-09-19 07:02:00 [facility] PARTIAL THROMBOPLASTIN 2020-09-18 22:16:00 Jean-Paul Ambrose [facility] TIME (PTT) PROTHROMBIN TIME WITH INR 2020-09-18 15:16:00 Halie [facility] PARTIAL THROMBOPLASTIN 2020-09-18 15:16:00 Halie [facility] Hospital TIME (PTT) CBC HEMOGRAM 2020-09-18 15:16:00 HalieJean-Paul spital HC COMPLETE BLD COUNT 2020-09-18 07:44:00 Latanya Alcantara [facility] W/AUTO DIFF [place] COMPREHENSIVE METABOLIC 2020-09-18 07:44:[address] [facility] PANEL [place] MAGNESIUM LEVEL 2020-09-18 07:44:00 Latanya Alcantara Ho spital [place] PHOSPHORUS LEVEL 2020-09-18 07:44:00 Latanya Alcantara H ospital [place] LIPASE LEVEL 2020-09-18 07:44:00 BiowReyes spital AMYLASE LEVEL 2020-09-18 07:44:00 BiowReyes Ho spital ESTIMATED GFR 2020-09-18 07:44:00 [facility] Flex ECG 12-LEAD 2020-09-18 01:58:51 Sourav Guy [facility] [place] > 1 HOUR 2020-09-17 20:29:46 Nish Zelaya [facility] ERCP WITH FLUORO 2020-09-17 19:35:00 Pily Pedraza H ospital HC COMPLETE BLD COUNT 2020-09-17 10:44:[address] [facility]/AUTO DIFF [place] COMPREHENSIVE METABOLIC 2020-09-17 10:44:00 Latanya Alcantara [facility] PANEL [place] MAGNESIUM LEVEL 2020-09-17 10:44:00 Latanya Alcantara spital [place] PHOSPHORUS LEVEL 2020-09-17 10:44:00 Latanya Alcantara ospital [place] PARTIAL THROMBOPLASTIN 2020-09-17 10:44:00 Kinsey [facility] Hospital TIME (PTT) Flex ESTIMATED GFR 2020-09-17 10:44:00 [facility] Flex PROTHROMBIN TIME WITH INR 2020-09-17 10:44:00 [facility] Flex PARTIAL THROMBOPLASTIN 2020-09-17 02:27:00 [facility] TIME (PTT[facility] Flex US HEPATIC 2020-09-17 01:15:00 Latanya Alcantara spital [place] MRI CHOLANGIOGRAM WO 2020-09-17 00:25:00 Pily Pedraza [facility] CONTRAST TTE COMPLETE, W CONTRAST, 2020-09-16 17:05:00 Krista Rey [facility] W DOPPLER ([id number]) HC COMPLETE BLD COUNT 2020-09-16 13:41:00 Quinton Latanya [facility] W/AUTO DIFF [place] BASIC METABOLIC PANEL 2020-09-16 13:41:00 [facility] 2020-09-16 13:41:00 [facility] MAGNESIUM LEVEL 2020-09-16 13:41:00 [facility] PHOSPHORUS LEVEL 2020-09-16 13:41:00 Latanya Alcantara [facility] PROTHROMBIN TIME WITH INR 2020-09-16 13:41:00 [facility] PARTIAL THROMBOPLASTIN 2020-09-16 13:41:00 [facility] TIME (PTT) [place] HEPATIC FUNCTION PANEL 2020-09-16 13:41:00 [facility] ESTIMATED GFR 2020-09-16 13:41:00 Krista Hendrickson [facility] Flex XR CHEST 2 VW 2020-08-19 20:48:[address] [facility] POC GLUCOSE 2020-07-27 16:56:[address] [facility] POC GLUCOSE 2020-07-27 13:11:00 Nadir [facility] POC GLUCOSE 2020-07-27 02:50:[address] [facility] POC GLUCOSE 2020-07-26 22:27:[address] [facility] POC GLUCOSE 2020-07-26 16:18:[address] [facility] POC GLUCOSE 2020-07-26 13:30:[address] [facility] PARTIAL THROMBOPLASTIN 2020-07-26 11:00:[address] [facility] TIME (PTT) [facility] BASIC METABOLIC PANEL 2020-07-26 11:00:00 Nadir [facility] MAGNESIUM LEVEL 2020-07-26 11:00:00 [facility] ESTIMATED GFR 2020-07-26 11:00:00 [facility] ECG 12-LEAD 2020-07-25 16:52:56 Sophy Mcfarlane Ho spital HC COMPLETE BLD COUNT 2020-07-25 10:00:00 [facility] W/AUTO DIFF BASIC METABOLIC PANEL 2020-07-25 10:00:00 [facility] ESTIMATED GFR 2020-07-25 10:00:00 Jameson Spear Ho spital POC GLUCOSE 2020-07-25 02:03:00 [facility] POC GLUCOSE 2020-07-24 23:23:00 [facility] ECG 12-LEAD 2020-07-24 17:11:06 Xiang Cevallos Ho spital POC GLUCOSE 2020-07-24 16:12:00 [facility] POC GLUCOSE 2020-07-24 12:46:00 [facility] HEPATIC FUNCTION PANEL 2020-07-24 10:30:00 Silverio [facility] BASIC METABOLIC PANEL 2020-07-24 10:30:00 [facility] L[facility]EL 2020-07-24 10:30:00 [facility] HC COMPLETE BLD COUNT 2020-07-24 10:30:00 [facility] W/AUTO DIFF ESTIMATED GFR 2020-07-24 10:30:00 Silverio [facility] POC GLUCOSE 2020-07-24 03:49:00 [facility] VENIPUNC NEED PHYS 2020-07-23 23:52:56 Linda Neil [facility] SKILL,DX OR RX POC GLUCOSE 2020-07-23 23:20:00 [facility] POC GLUCOSE 2020-07-23 17:05:00 [facility] ECG 12-LEAD 2020-07-23 13:42:00 Debbie Cote [facility] POC GLUCOSE 2020-07-23 13:03:00 [facility] POC GLUCOSE 2020-07-23 09:31:00 [facility] XR CHEST 1 VW PORTABLE 2020-07-23 08:28:00 [facility] HE[facility] FUNCTION PANEL 2020-07-23 05:30:00 Shelli Sawyer [facility] BASIC METABOLIC PANEL 2020-07-23 05:30:00 DoHanna [facility] MAGNESIUM LEVEL 2020-07-23 05:30:00 [facility] spital PHOSPHORUS LEVEL 2020-07-23 05:30:00 DoHanna ospital ESTIMATED GFR 2020-07-23 05:30:00 DoHanna Ho spital HC COMPLETE BLD COUNT 2020-07-23 05:00:00 DoHanna [facility] W/AUTO DIFF TYPE AND SCREEN 2020-07-23 05:00:00 DoHanna Ho spital POC GLUCOSE 2020-07-23 04:56:[address] [facility] POC GLUCOSE 2020-07-23 01:24:00 [facility] XR ABDOMEN 1 VW PORTABLE 2020-07-22 22:00:00 [facility] POC GLUCOSE 2020-07-22 20:36:00 [facility] ECG 12-LEAD 2020-07-22 17:04:51 Shelli Sawyer ospital POC GLUCOSE 2020-07-22 16:16:00 Nadir [facility] POC GLUCOSE 2020-07-22 12:26:00 Nadir [facility] ECG 12-LEAD 2020-07-22 11:46:56 AntonietaandreaflorenceStephen bergMannyrobin Ward ospital [facility] POC GLUCOSE 2020-07-22 09:02:00 Nadir [facility] XR CHEST 1 VW PORTABLE 2020-07-22 08:45:00 Parker [facility] HEPATIC FUNCTION PANEL 2020-07-22 05:17:00 Shelli Sawyer [facility] BASIC METABOLIC PANEL 2020-07-22 05:17:00 Parker [facility] Rainer IONIZED CALCIUM 2020-07-22 05:17:00 Wilton Canales MAGNESIUM LEVEL 2020-07-22 05:17:00 Wilton Canales ESTIMATED GFR 2020-07-22 05:17:00 Wilton Canales HC COMPLETE BLD COUNT 2020-07-22 05:00:00 [facility]FF [place] POC GLUCOSE 2020-07-22 04:44:00 Nadir [facility] POC GLUCOSE 2020-07-22 00:55:00 Nadir [facility] POC GLUCOSE 2020-07-21 21:06:00 Nadir [facility] POC GLUCOSE 2020-07-21 16:53:00 Nadir [facility] URINE CULTURE 2020-07-21 16:00:00 [facility] URINALYSIS SCREEN AND 2020-07-21 16:00:00 [facility] MICROSCOPY, WITH REFLEX TO CULTURE ECG 12-LEAD 2020-07-21 13:23:37 Debbie Cote [facility] POC GLUCOSE 2020-07-21 12:54:00 Nadir [facility] ECG 12-LEAD 2020-07-21 10:03:31 Manny Alex ospital [facility] POC GLUCOSE 2020-07-21 09:15:00 Nadir [facility] XR CHEST 1 VW PORTABLE 2020-07-21 08:40:00 Wilton Canales [facility] BASIC METABOLIC PANEL 2020-07-21 05:33:00 Parker Wilton [facility] MAGNESIUM LEVEL 2020-07-21 05:33:00 Wilton Canales akira Spear ESTIMATED GFR 2020-07-21 05:33:00 [facility] CBC WITH PLATELET AND 2020-07-21 05:00:00 Parker [facility] DIFFERENTIAL [place] MANUAL DIFFERENTIAL 2020-07-21 05:00:[address] [facility] POC GLUCOSE 2020-07-21 04:56:00 Nadir [facility] POC GLUCOSE 2020-07-21 00:50:00 Nadir [facility] POC GLUCOSE 2020-07-20 20:52:00 Nadir [facility] LINE/DRAIN REMOVAL 2020-07-20 18:46:33 Manny Alex [facility] HEMOGLOBIN & HEMATOCRIT 2020-07-20 18:40:00 Shelli Sawyer [facility] MAGNESIUM LEVEL 2020-07-20 18:40:00 [facility] POTASSIUM LEVEL 2020-07-20 18:40:00 Shelli Sawyer ospital POC GLUCOSE 2020-07-20 16:46:00 Nadir [facility] XR CHEST 1 VW PORTABLE 2020-07-20 16:35:[address] [facility] POC GLUCOSE 2020-07-20 12:27:00 Nadir [facility] ECG 12-LEAD 2020-07-20 10:25:48 Manny Alex H ospimyron Replaced By [facility] BASIC METABOLIC PANEL 2020-07-20 10:03:00 Wilton Canales [facility] MAGNESIUM LEVEL 2020-07-20 10:03:00 Wilton Canales [facility] Rainer ESTIMATED GFR 2020-07-20 10:03:00 Wilton Canales [facility] POC GLUCOSE 2020-07-20 09:12:[address] [facility] XR CHEST 1 VW PORTABLE 2020-07-20 07:52:00 Parker [facility] BASIC METABOLIC PANEL 2020-07-20 05:37:00 Wilton Canales [facility] MAGNESIUM LEVEL 2020-07-20 05:37:00 Wilton Canales [facility] LACTIC ACID LEVEL 2020-07-20 05:37:00 Parker [facility] ESTIMATED GFR 2020-07-20 05:37:00 Wilton Canalse [facility] ARTERIAL BLOOD GAS 2020-07-20 05:13:00 Parker [facility] HC COMPLETE BLD COUNT 2020-07-20 05:13:00 Parker [facility] W/AUTO DIFF [place] O2 SATURATION, VENOUS 2020-07-20 05:13:00 Parker [facility] PARTIAL THROMBOPLASTIN 2020-07-20 05:13:00 Parker [facility] TIME (PTT[facility] [place] PROTHROMBIN TIME WITH INR 2020-07-20 05:13:00 Wilton Canales [facility] IONIZED CALCIUM, ARTERIAL 2020-07-20 05:13:00 Parker [facility] POC GLUCOSE 2020-07-20 04:38:00 Nadir [facility] ARTERIAL BLOOD GAS 2020-07-20 03:07:00 Parker [facility] POC GLUCOSE 2020-07-20 02:03:[address] [facility] POC GLUCOSE 2020-07-20 00:49:[address] [facility] ARTERIAL BLOOD GAS 2020-07-20 00:35:00 [facility] POC GLUCOSE 2020-07-19 23:50:00 Nadir [facility] POC GLUCOSE 2020-07-19 22:54:[address] [facility] ECG 12-LEAD 2020-07-19 22:21:09 [facility] ART[facility] BLOOD GAS 2020-07-19 22:17:00 Marcella Lakhani [facility] POC GLUCOSE 2020-07-19 22:13:[address] [facility] XR CHEST 1 VW PORTABLE 2020-07-19 20:55:00 [facility] BASIC METABOLIC PANEL 2020-07-19 20:40:00 [facility] COMPLETE BLD COUNT 2020-07-19 20:40:00 [facility]orthern [facility] W/AUTO DIFF [facility] MAGNESIUM LEVEL 2020-07-19 20:40:00 [facility] PHOSPHORUS LEVEL 2020-07-19 20:40:00 [facility] bergMannyChrist[facility] PROTHROMBIN TIME WITH INR 2020-07-19 20:40:00 Manny Alex [facility] PARTIAL THROMBOPLASTIN 2020-07-19 20:40:00 Stephen [facility] TIME (PTT) [facility] ARTERIAL BLOOD GAS 2020-07-19 20:40:00 Manny Alex [facility] FIBRINOGEN 2020-07-19 20:40:00 [facility] ESTIMATED GFR 2020-07-19 20:40:00 [facility] IONIZED CALCIUM, ARTERIAL 2020-07-19 20:40:00 Manny Alex [facility] POC GLUCOSE 2020-07-19 20:39:00 Nadir, [facility] [place] AN ELECTIVE 2020-07-19 20:14:25 Abel Adkins Ho spital ENDOTRACHEAL AIRWAY ARTERIAL BLOOD GAS, 2020-07-19 19:56:00 Nadir, [facility] CORRECTED [facility] SODIUM LEVEL, SYRINGE 2020-07-19 19:56:00 Nadir, [facility] POTASSIUM, SYRINGE 2020-07-19 19:56:00 Nadir, [facility] IONIZED CALCIUM, ARTERIAL 2020-07-19 19:56:00 Nadir, [facility] HEMOGLOBIN, SYRINGE 2020-07-19 19:56:00 Nadir, [facility] GLUCOSE LEVEL, SYRINGE 2020-07-19 19:56:00 Nadir, [facility] ACTIVATED CLOTTING TIME 2020-07-19 18:51:00 Nadir, [facility] FIBRINOGEN 2020-07-19 18:14:00 Nadir, [facility] PROTHROMBIN TIME WITH INR 2020-07-19 18:14:[address] [facility] PLATELET COUNT 2020-07-19 18:14:00 Nadir, [facility] HEMOGLOBIN & HEMATOCRIT 2020-07-19 18:14:00 Nadir, [facility] POTASSIUM, SYRINGE 2020-07-19 18:04:00 Nadir, [facility] SODIUM LEVEL, SYRINGE 2020-07-19 18:04:00 Nadir, [facility] ARTERIAL BLOOD GAS, 2020-07-19 18:04:00 Nadir, [facility] CORRECTED [facility] IONIZED CALCIUM, ARTERIAL 2020-07-19 18:04:00 Nadir, [facility] HEMOGLOBIN, SYRINGE 2020-07-19 18:04:00 Nadir, [facility] GLUCOSE LEVEL, SYRINGE 2020-07-19 18:04:00 Nadir, [facility] ACTIVATED CLOTTING TIME 2020-07-19 18:01:00 Nadir, [facility] SODIUM LEVEL, SYRINGE 2020-07-19 17:33:00 Nadir, [facility] ARTERIAL BLOOD GAS, 2020-07-19 17:33:00 Nadir, [facility] CORRECTED [facility] POTASSIUM, SYRINGE 2020-07-19 17:33:00 Nadir, [facility] HEMOGLOBIN, SYRINGE 2020-07-19 17:33:00 Nadir, [facility] IONIZED CALCIUM, ARTERIAL 2020-07-19 17:33:00 Nadir, [facility] GLUCOSE LEVEL, SYRINGE 2020-07-19 17:33:00 Nadir, [facility] ACTIVATED CLOTTING TIME 2020-07-19 17:30:00 Nadir, [facility] GLUCOSE LEVEL, SYRINGE 2020-07-19 17:04:00 Nadir, [facility] HEMOGLOBIN, SYRINGE 2020-07-19 17:04:00 Nadir, [facility] IONIZED CALCIUM, ARTERIAL 2020-07-19 17:04:00 Nadir, [facility] [place] POTASSIUM, SYRINGE 2020-07-19 17:04:00 Nadir, [facility] [place] SODIUM LEVEL, SYRINGE 2020-07-19 17:04:00 Nadir, [facility] [place] ARTERIAL BLOOD GAS, 2020-07-19 17:04:00 Nadir, [facility] CORRECTED [facility] ACTIVATED CLOTTING TIME 2020-07-19 17:02:00 Nadir, [facility] GLUCOSE LEVEL, SYRINGE 2020-07-19 16:28:00 Nadir, [facility] HEMOGLOBIN, SYRINGE 2020-07-19 16:28:00 Nadir, [facility] IONIZED CALCIUM, ARTERIAL 2020-07-19 16:28:00 Nadir, [facility] SODIUM LEVEL, SYRINGE 2020-07-19 16:28:00 Nadir, [facility] POTASSIUM, SYRINGE 2020-07-19 16:28:00 Nadir, [facility] ARTERIAL BLOOD GAS, 2020-07-19 16:28:00 Nadir, [facility] CORRECTED [facility] ACTIVATED CLOTTING TIME 2020-07-19 16:27:00 Nadir, [facility] ARTERIAL BLOOD GAS, 2020-07-19 15:54:00 Nadir, [facility] CORRECTED [facility] SODIUM LEVEL, SYRINGE 2020-07-19 15:54:00 Nadir, [facility] POTASSIUM, SYRINGE 2020-07-19 15:54:00 Nadir, [facility] HEMOGLOBIN, SYRINGE 2020-07-19 15:54:00 Nadir, [facility] GLUCOSE LEVEL, SYRINGE 2020-07-19 15:54:00 Nadir, [facility] IONIZED CALCIUM, ARTERIAL 2020-07-19 15:54:00 Nadir, [facility] LACTIC ACID, SYRINGE 2020-07-19 15:54:00 Nadir, [facility] ACTIVATED CLOTTING TIME 2020-07-19 15:53:00 Nadir, [facility] ACTIVATED CLOTTING TIME 2020-07-19 15:36:00 Nadir, [facility] ANESTHESIA RONEL 2020-07-19 15:14:09 [facility] POTASSIUM, SYRINGE 2020-07-19 15:10:00 Nadir, [facility] ARTERIAL BLOOD GAS, 2020-07-19 15:10:00 Nadir, [facility] CORRECTED [facility] SODIUM LEVEL, SYRINGE 2020-07-19 15:10:00 Nadir, [facility] IONIZED CALCIUM, ARTERIAL 2020-07-19 15:10:00 Nadir, [facility] HEMOGLOBIN, SYRINGE 2020-07-19 15:10:00 Nadir, [facility] GLUCOSE LEVEL, SYRINGE 2020-07-19 15:10:00 Nadir, [facility] PA CATHETER 2020-07-19 13:34:35 [facility] CENTRAL LINE 2020-07-19 13:33:37 [facility] ARTERIAL LINE 2020-07-19 13:32:57 [facility] [place] AN ELECTIVE 2020-07-19 13:32:07 [facility] ENDOTRACHEAL AIRWAY SURGICAL PATHOLOGY 2020-07-19 13:17:00 Nadir, [facility] REQUEST [facility] ARTERIAL BLOOD GAS, 2020-07-19 13:04:00 Nadir, [facility] CORRECTED [facility] SODIUM LEVEL, SYRINGE 2020-07-19 13:04:00 Nadir, [facility] POTASSIUM, SYRINGE 2020-07-19 13:04:00 Nadir, [facility] IONIZED CALCIUM, ARTERIAL 2020-07-19 13:04:00 Nadir, [facility] HEMOGLOBIN, SYRINGE 2020-07-19 13:04:00 Nadir, [facility] GLUCOSE LEVEL, SYRINGE 2020-07-19 13:04:00 Nadir, [facility] ACTIVATED CLOTTING TIME 2020-07-19 13:01:00 Nadir, [facility] REPAIR OR REPLACEMENT, 2020-07-19 12:38:00 [facility] MITRAL VALVE, WITH [facility] CARDIOPULMONARY BYPASS REPLACEMENT, TRICUSPID 2020-07-19 12:38:00 [facility] VALVE, USING [facility] CARDIOPULMONARY BYPASS ATRIAL APPENDAGE LIGATION 2020-07-19 12:38:00 [facility] ABO AND RH CONFIRMATION 2020-07-19 11:47:00 [facility] TYPE AND SCREEN 2020-07-14 19:29:00 [facility] PROTHROMBIN TIME WITH INR 2020-07-14 19:29:00 [facility] B NATRIURETIC PEPTIDE 2020-07-14 19:29:00 [facility] PREPARE RBC 2020-07-14 19:29:00 [facility] ECG PRE/POST OP 2020-07-14 19:22:18 [facility] QUALITATIVE 2020-07-14 18:42:00 [facility] RT-PCR [facility] URINALYSIS SCREEN AND 2020-07-14 18:42:00 [facility] MICROSCOPY, WITH REFLEX TO CULTURE HEMOGLOBIN A1C 2020-07-14 18:42:00 [facility] PARTIAL THROMBOPLASTIN 2020-07-14 18:42:00 [facility] TIME (PTT) [facility] COMPREHENSIVE METABOLIC 2020-07-14 18:42:00 [facility] PANEL [facility] HC COMPLETE BLD COUNT 2020-07-14 18:42:00 [facility] W/AUTO DIFF [facility] ESTIMATED GFR 2020-07-14 18:42:00 [facility] VITAMIN B12 LEVEL 2020-07-14 18:34:00 [facility] TOTAL IRON BINDING 2020-07-14 18:34:00 [facility] CAPACITY [facility] LIPID PANEL 2020-07-14 18:34:00 [facility] FOLATE LEVEL 2020-07-14 18:34:00 [facility] FERRITIN LEVEL 2020-07-14 18:34:00 [facility] URINE CULTURE 2020-07-14 18:15:00 [facility] SPIROMETRY, DIFFUSION, 2020-07-14 16:16:00 [facility] LUNG VOLUMES [facility] US CAROTID DUPLEX 2020-07-14 14:39:40 [facility] BILATERAL [facility] CT ANGIOGRAM CHEST 2020-06-23 23:01:17 [facility] ABDOMEN PELVIS W AND OR [facility] WITHOUT CONTRAST XR CHEST 2 VW 2020-06-23 21:39:00 [facility] MEDICATION CORRESPONDENCE 2020-05-20 06:01:00 Doctor Unassigned, No [facility] AUTHORIZATION FOR RELEASE 2019-12-25 05:01:00 Doctor Unassigned, No [facility] AUTHORIZATION FOR RELEASE 2019-06-26 05:01:00 Doctor Unassigned, No [facility] SCANNED LAB RESULTS 2018-12-04 05:01:00 [facility] Planned Activity Planned Date Details Comments Source Future Scheduled 2022-12-01 Influenza Vaccine (#1) [facility] 00:[facility]00 [code = Influenza Vaccine Me dical Center (#1)] Future Scheduled 2022-12-01 Influenza Vaccine (#1) [facility] 00:00:00 [code = Influenza Vaccine Me dical Center (#1)] Future Scheduled 2022-10-25 Screening for malignant [facility] 11:00:59 neoplasm of colon Hospital (procedure) [code = 266635458] Future Scheduled 2022-10-25 Screening for malignant [facility] 11:00:59 neoplasm of colon Hospital (procedure) [code = 762396292] Future Scheduled 2022-10-25 Screening for malignant [facility] 11:00:59 neoplasm of colon Hospital (procedure) [code = 490707230] Future Scheduled 2022-10-25 COVID-19 VACCINE (#1) [facility] 11:00:59 [code = COVID-19 VACCINE Hos pital (#1)] Future Scheduled 2022-10-25 Hepatitis C screening [facility] 11:00:59 (procedure) [code = Hospital [id number]] Future Scheduled 2022-10-25 Screening for malignant [facility] 11:00:59 neoplasm of cervix Hospital (procedure) [code = 926139872] Future Scheduled 2022-10-25 BREAST CANCER SCREENING [facility] 11:00:59 [code = BREAST CANCER Hospit al SCREENING] Future Scheduled 2022-10-25 Screening for malignant [facility] 11:00:59 neoplasm of colon Hospital (procedure) [code = 088865856] Future Scheduled 2022-10-25 Screening for malignant [facility] 11:00:59 neoplasm of colon Hospital (procedure) [code = 762281274] Future Scheduled 2022-10-25 SHINGLES VACCINES (1 of [facility] 11:00:59 2) [code = SHINGLES Hospital VACCINES (1 of 2)] Future Scheduled 2022-10-25 65+ PNEUMOCOCCAL VACCINE [facility] 11:00:59 (2 - PCV) [code = 65+ Hospit al PNEUMOCOCCAL VACCINE (2 - PCV)] Future Scheduled 2022-10-25 INFLUENZA VACCINE [code = [facility] 11:00:59 INFLUENZA VACCINE] Hospital Future Scheduled 2022-10-25 Screening for malignant [facility] 11:00:59 neoplasm of colon Hospital (procedure) [code = 767417689] Future Scheduled 2022-10-25 Screening for malignant [facility] 11:00:59 neoplasm of colon Hospital (procedure) [code = 551093409] Future Scheduled 2022-10-25 Screening for malignant [facility] 11:00:59 neoplasm of colon Hospital (procedure) [code = 336797727] Future Scheduled 2022-10-25 COVID-19 VACCINE (#1) [facility] 11:00:59 [code = COVID-19 VACCINE Hos pital (#1)] Future Scheduled 2022-10-25 Hepatitis C screening [facility] 11:00:59 (procedure) [code = Hospital 739901915] Future Scheduled 2022-10-25 Screening for malignant [facility] 11:00:59 neoplasm of cervix Hospital (procedure) [code = 521969986] Future Scheduled 2022-10-25 BREAST CANCER SCREENING [facility] 11:00:59 [code = BREAST CANCER Hospit al SCREENING] Future Scheduled 2022-10-25 Screening for malignant [facility] 11:00:59 neoplasm of colon Hospital (procedure) [code = 843698627] Future Scheduled 2022-10-25 Screening for malignant [facility] 11:00:59 neoplasm of colon Hospital (procedure) [code = 128922695] Future Scheduled 2022-10-25 SHINGLES VACCINES (1 of [facility] 11:00:59 2) [code = SHINGLES Hospital VACCINES (1 of 2)] Future Scheduled 2022-10-25 65+ PNEUMOCOCCAL VACCINE [facility] 11:00:59 (2 - PCV) [code = 65+ Hospit al PNEUMOCOCCAL VACCINE (2 - PCV)] Future Scheduled 2022-10-25 INFLUENZA VACCINE [code = [facility] 11:00:59 INFLUENZA VACCINE] Hospital Future Scheduled 2022-06-22 COVID-19 VACCINE (#1) [facility] 21:47:43 [code = COVID-19 VACCINE Hos pital (#1)] Future Scheduled 2022-06-22 Hepatitis C screening [facility] 21:47:43 (procedure) [code = Hospital 222227057] Future Scheduled 2022-06-22 Screening for malignant [facility] 21:47:43 neoplasm of cervix Hospital (procedure) [code = 351308155] Future Scheduled 2022-06-22 BREAST CANCER SCREENING [facility] 21:47:43 [code = BREAST CANCER Hospit al SCREENING] Future Scheduled 2022-06-22 COLONOSCOPY SCREENING [facility] 21:47:43 [code = COLONOSCOPY Hospital SCREENING] Future Scheduled 2022-06-22 SHINGLES VACCINES (1 of [facility] 21:47:43 2) [code = SHINGLES Hospital VACCINES (1 of 2)] Future Scheduled 2022-06-22 65+ PNEUMOCOCCAL VACCINE [facility] 21:47:43 (2 - PCV) [code = 65+ Hospit al PNEUMOCOCCAL VACCINE (2 - PCV)] Future Scheduled 2022-06-22 INFLUENZA VACCINE [code = [facility] 21:47:43 INFLUENZA VACCINE] Hospital Future Scheduled 2022-04-[address] [facility] 00:00:00 (12+) [code = DEPRESSION Med ical Center SCREENING (12+)] Future Scheduled 2022-04-02 FALLS RISK SCREENING [facility] 00:00:00 [code = FALLS RISK Medical C enter SCREENING] Future Scheduled 2022-04-[address] [facility] 00:00:00 (12+) [code = DEPRESSION Med ical Center SCREENING (12+)] Future Scheduled 2022-04-02 FALLS RISK SCREENING [facility] 00:00:00 [code = FALLS RISK Medical C enter SCREENING] Future Scheduled 2022-04-[address] [facility] 00:00:00 (12+) [code = DEPRESSION Med ical Center SCREENING (12+)] Future Scheduled 2022-04-02 FALLS RISK SCREENING [facility] 00:00:00 [code = FALLS RISK Medical C enter SCREENING] Future Scheduled 2021-12-01 INFLUENZA VACCINE (#1) [facility] 00:00:00 [code = INFLUENZA VACCINE Me dical Center (#1)] Future Scheduled 2021-03-[address] [facility] 00:00:00 Counseling and Screening Med ical Center (12+) [code = Tobacco Cessation Counseling and Screening (12+)] Future Scheduled 2021-03-[address] [facility] 00:00:00 Counseling and Screening Med ical Center (12+) [code = Tobacco Cessation Counseling and Screening (12+)] Future Scheduled 2021-03-[address] [facility] 00:00:00 Counseling and Screening Med ical Center (12+) [code = Tobacco Cessation Counseling and Screening (12+)] Future Scheduled 2021-02-16 COVID-19 VACCINE (1) [facility] 19:47:38 [code = COVID-19 VACCINE Hos pital (1)] Future Scheduled 2021-02-16 Hepatitis C screening [facility] 19:47:38 (procedure) [code = Hospital 503635107] Future Scheduled 2021-02-16 Screening for malignant [facility] 19:47:38 neoplasm of cervix Hospital (procedure) [code = 008111039] Future Scheduled 2021-02-16 BREAST CANCER SCREENING [facility] 19:47:38 [code = BREAST CANCER Hospit al SCREENING] Future Scheduled 2021-02-16 COLONOSCOPY SCREENING [facility] 19:47:38 [code = COLONOSCOPY Hospital SCREENING] Future Scheduled 2021-02-16 SHINGLES VACCINES (#1) [facility] Test 19:47:38 [code = SHINGLES VACCINES Ho spital (#1)] Future Scheduled 2021-02-16 INFLUENZA VACCINE [code = [facility] 19:47:38 INFLUENZA VACCINE] Hospital Future Scheduled 2020-12-01 INFLUENZA VACCINE (#1[facility]00 [code = INFLUENZA VACCINE Me dical Center (#1)] Future Scheduled 2020-11-01 MEDICARE ANNUAL WELLNESS [facility] 00:00:00 (YEAR 2 or FIRST YEAR if Med ical Center no IPPE) [code = MEDICARE ANNUAL WELLNESS (YEAR 2 or FIRST YEAR if no IPPE)] Future Scheduled 2020-11-01 MEDIC[address]NUAL WELLNESS [facility] 00:00:00 (YEAR 2 or FIRST YEAR if Med ical Center no IPPE) [code = MEDICARE ANNUAL WELLNESS (YEAR 2 or FIRST YEAR if no IPPE)] Future Scheduled 2020-11-01 MEDICARE ANNUAL WELLNESS [facility] 00:00:00 (YEAR 2 or FIRST YEAR if Med ical Center no IPPE) [code = MEDICARE ANNUAL WELLNESS (YEAR 2 or FIRST YEAR if no IPPE)] Future Scheduled 2020-11-01 MEDICARE ANNUAL WELLNESS [facility] 00:00:00 (YEAR 2 or FIRST YEAR if Med ical Center no IPPE) [code = MEDICARE ANNUAL WELLNESS (YEAR 2 or FIRST YEAR if no IPPE)] Future Scheduled 2020-04-[address] [facility] 00:00:00 (12+) [code = DEPRESSION Med ical Center SCREENING (12+)] Future Scheduled 2007 SHINGLES VACCINES ([address] [facility] 00:00:00 2) [code = SHINGLES Medical Center VACCINES (1 of 2)] Future Scheduled 2007 SHINGLES VACCINES ([address] [facility] 00:00[facility]00 [facility] Future Scheduled 2007 SHINGLES VACCINES ([address] [facility] 00:00[facility]00 [facility] Future Scheduled 2007 SHINGLES VACCINES ([address] [facility] 00:00:00 2) [facility] Future Scheduled 2002 Lipid panel (procedure) [facility] 00:00:00 [code = 98186195] Medical Ce nter Future Scheduled 2002 Lipid panel (procedure) [facility] 00:00:00 [code = 22387627] Medical Ce nter Future Scheduled 2002 Lipid panel (procedure) [facility] 00:00:00 [code = 22205825] Medical Ce nter Future Scheduled 2002 Lipid panel (procedure) [facility] 00:00:00 [code = 87756953] Medical Ce nter Future Scheduled 1978 Screening for malignant [facility] 00:00:00 neoplasm of cervix Medical C enter (procedure) [code = 474030390] Future Scheduled 1978 Screening for malignant [facility] 00:00:00 neoplasm of cervix Medical C enter (procedure) [code = 701184214] Future Scheduled 1978 Screening for malignant [facility] 00:00:00 neoplasm of cervix Medical C enter (procedure) [code = 362246506] Future Scheduled 1978 Screening for malignant [facility] 00:00:00 neoplasm of cervix Medical C enter (procedure) [code = 300396728] Future Scheduled 1976-01-31 DTAP/TDAP/TD VACCINES ([address] [facility] 00:00:00 - Tdap) [code = Medical Cent er DTAP/TDAP/TD VACCINES (1 - Tdap)] Future Scheduled 1976-01-31 DTAP/TDAP/TD VACCINES ([address] [facility] 00:00:00 - Tdap) [code = Medical Cent er DTAP/TDAP/TD VACCINES (1 - Tdap)] Future Scheduled 1976-01-31 DTAP/TDAP/TD VACCINES ([address] [facility] 00:00:00 - Tdap) [code = Medical Cent er DTAP/TDAP/TD VACCINES (1 - Tdap)] Future Scheduled 1976-01-31 DTAP/TDAP/TD VACCINES ([address] [facility] 00:00:00 - Tdap) [code = Medical Cent er DTAP/TDAP/TD VACCINES (1 - Tdap)] Future Scheduled 1975 HE[facility]ITIS C [facility]:00:00 [code = HEPATITIS C Medical Center SCREENING] Future Scheduled 1975 HEPATITIS C [facility] 00:00:00 [code = HEPATITIS C Medical Center SCREENING] Future Scheduled 1975 HEPATITIS C [facility] 00:00:00 [code = HEPATITIS C Medical Center SCREENING] Future Scheduled 1975 HEPATITIS C [facility] 00:00:00 [code = HEPATITIS C Medical Center SCREENING] Future Scheduled 1972-01-[address] [facility] 00:00:00 virus screening Medical Cent er (procedure) [code = 008554135] Future Scheduled 1972-01-[address] [facility] 00:00:00 virus screening Medical Cent er (procedure) [code = 681651707] Future Scheduled 1969 COVID-19 VACCINE (1) [facility] 00:00:00 [code = COVID-19 VACCINE Med ical Center (1)] Future Scheduled 1963 PNEUMOCOCCAL 65+ YRS (1 - [facility] 00:00:00 PCV) [code = PNEUMOCOCCAL Me dical Center 65+ YRS (1 - PCV)] Future Scheduled 1963 PNEUMOCOCCAL VACCINE 0-[address] [facility] 00:00:00 YRS (1 of 2 - PPSV23) Medica l Center [code = PNEUMOCOCCAL VACCINE 0-64 YRS (1 of 2 - PPSV23)] Future Scheduled 1963 PNEUMOCOCCAL 65+ YRS (1 - [facility] 00:00:00 PCV) [code = PNEUMOCOCCAL Me dical Center 65+ YRS (1 - PCV)] Future Scheduled 1963 PNEUMOCOCCAL 65+ YRS (1 - [facility] 00:00:00 PCV) [code = PNEUMOCOCCAL Me dical Center 65+ YRS (1 - PCV)] Future Scheduled 1957 COVID-19 VACCINE (#1[facility] 00:00:00 [code = COVID-19 VACCINE Med ical Center (#1)] Future Scheduled 1957 COVID-19 VACCINE (#1[facility] 00:00:00 [code = COVID-19 VACCINE [facility] ical Center (#1)] Future Scheduled 1957 COVID-19 VACCINE (#1[facility] 00:00:00 [code = COVID-19 VACCINE [facility] ical Center (#1)] Future Scheduled [address] Screening for malignant [facility] 00:00:00 neoplasm of colon Medical Ce nter (procedure) [code = 083090482] Future Scheduled [address] Screening for malignant [facility] 00:00:00 neoplasm of breast Medical C enter (procedure) [code = 943169132] Future Scheduled 1957 CT Colonography (combo) [facility] 00:00:00 [code = CT Colonography [facility] (combo)] Future Scheduled 1957 Screening for malignant [facility] 00:00:00 neoplasm of colon Medical Ce nter (procedure) [code = 855025360] Future Scheduled 1957 Screening for malignant [facility] 00:00:00 neoplasm of colon Medical Ce nter (procedure) [code = 149217987] Future Scheduled 1957 DXA SCAN [code = DXA [facility] 00:00:00 SCAN] [facility] Future Scheduled 1957 Screening for malignant [facility] 00:00:00 neoplasm of colon Medical Ce nter (procedure) [code = 363704532] Future Scheduled 1957 Screening for malignant [facility] 00:00:00 neoplasm of colon Medical Ce nter (procedure) [code = 319442472] Future Scheduled 1957 Sigmoidoscopy [code = [facility] Sigmoidoscopy] [facility] Future Scheduled 1957 Screening for malignant [facility] 00:00:00 neoplasm of breast Medical C enter (procedure) [code = 314483334] Future Scheduled 1957 CT Colonography (combo) [facility] 00:00:00 [code = CT Colonography [facility] (combo)] Future Scheduled 1957 Screening for malignant [facility] 00:00:00 neoplasm of colon Medical Ce nter (procedure) [code = 002105985] Future Scheduled 1957 Screening for malignant [facility] 00:00:00 neoplasm of colon Medical Ce nter (procedure) [code = 479638250] Future Scheduled 1957 DXA SCAN [code = DXA [facility] 00:00:00 SCAN] [facility] Future Scheduled 1957 Screening for malignant [facility] 00:00:00 neoplasm of colon Medical Ce nter (procedure) [code = 776106073] Future Scheduled 1957 Screening for malignant [facility] 00:00:00 neoplasm of colon Medical Ce nter (procedure) [code = 618500534] Future Scheduled 1957 Sigmoidoscopy [code = [facility] Sigmoidoscopy] [facility] Future Scheduled 1957 Screening for malignant [facility] 00:00:00 neoplasm of breast Medical C enter (procedure) [code = 651105568] Future Scheduled 1957 CT Colonography (combo) [facility] 00:00:00 [code = CT Colonography [facility] (combo)] Future Scheduled 1957 Screening for malignant [facility] 00:00:00 neoplasm of colon Medical Ce nter (procedure) [code = 981683458] Future Scheduled 1957 Screening for malignant [facility] 00:00:00 neoplasm of colon Medical Ce nter (procedure) [code = 716287368] Future Scheduled 1957 DXA SCAN [code = DXA [facility] 00:00:00 SCAN] [facility] Future Scheduled 1957 Screening for malignant [facility] 00:00:00 neoplasm of colon Medical Ce nter (procedure) [code = 315983318] Future Scheduled 1957 Screening for malignant [facility] 00:00:00 neoplasm of colon Medical Ce nter (procedure) [code = 614571770] Future Scheduled 1957 Sigmoidoscopy [code = [facility] S[facility]oscopy] [facility] Cent[facility] r Future Scheduled 1957 Screening for malignant [facility] 00:00:00 neoplasm of breast Medical C enter (procedure) [code = 823089384] Encounters Start End Encounter Admission Attending Care Care Encounter Source Date/Time Date/Time Type Type Clinicians Facility Department ID 2022-05-26 Outpatient [facility] [id number] 13:48:12 PROVIDER Timmary ann bautista 2022-10-31 2022-10-31 Telemed[facility] KAREEN Fay [id number] [facility] 15:30:00 16:00:00 ne Visit Jocelyn Y [facility] [id number] [id number] [address] 2022-10-31 2022-10-31 Outpatient R JOCELYN FAY [facility] [id number] Univers 15:30:00 15:30:00 JOCELYN FAY ity [facility] 2022-10-31 2022-10-31 Telephone LUIS Fay [id number] Univers 00:00:00 00:00:00 Jocelyn Y [facility] [id number] [id number] [address] 2022-10-30 2022-10-30 Case Kassidy [facility] [id number] Univers 00:00:00 00:00:00 Management [facility] HEALTH [id number] [id number] [id number] [address] 2022-10-30 2022-10-30 Telephone KAREEN Fay [id number] Univers 00:00:00 00:00:00 [facility] [facility] 350.1.13.10 i ty of [place] [phone] [address] 2022-10-27 2022-10-27 [facility] 1.2.913.259 [id number] Univers 08:26:22 23:59:00 Encounter Elinor SPECIALTY 350.1.13.10 [place] [phone] Wi yamila JANSEN [address] [place] [address] 2022-10-27 2022-10-27 [facility] 1.2.830.390 7834 [id number] Univers 08:25:42 08:25:42 Encounter Elinor SPECIALTY 350.1.13.10 it[place] [phone] Wi yamila [address] 2022-10-27 2022-10-27 Outpatient R KASSIDY [facility] [id number] Univers 08:24:58 08:24:58 [facility]IDY, [facility]22-10-27 2022-10-27 [facility] 1.2.428.356 [id number] [id number] Univers 08:24:58 08:24:58 Encounter Elinor SPECIALTY 350.1.13.10 it[place] [id number] Wi yamila JANSEN [address] [place] [address] 2022-10-27 2022-10-27 Telephone LUIS Fay 1.2.840.11 4 [id number] Univers 00:00:00 00:00:00 [facility] Y HEALTH 350.1.13.10 i ty [place] [id number] [address] 2022-09-06 2022-09-06 [facility] Kassidy [facility] 1.2.840.114 103 [id number] Univers 00:00:00 00:00:00 Management Elinor Y HEALTH 350.1.13.10 [place] CL[place] [id number] [address] 2022-09-04 2022-09-04 Nurse JEREMY Sosa 1.2.840.114 [id number] Univers 00:00:00 00:00:00 Triage Osiris EPSTEIN 350.1.13.10 ity of HOSPITAL 4.2.7.2.686 Sharif as [id number] [facility] [address] 2022-08-29 2022-08-29 Outpatient R JOCELYN FAY [facility] [id number] Univers 10:30:00 16:29:[address] [facility] 2022-08-29 2022-08-29 Office LUIS Fay 1.2.840.114 [id number] Univers 10:30:00 16:29:01 Visit Jocelyn [facility] 350.1.13.[address] [facility] [place].2.[place] [id number] [facility] [address] 2022-08-21 2022-08-21 Office DEMOND Cooper 1.2.612.320 3450 [id number] Univers 14:00:00 16:09:37 Visit Aimee [place] 350.1.13.10 ity of BUILDING 4.2.7.2.686 [place]if as [id number] [address] 2022-08-21 2022-08-21 Outpatient R AIMEE COOPER [facility] [id number] Univers 14:00:00 14:00:[address] [facility] 2022-08-01 2022-08-01 Refill DEMOND Cooper 1.2.448.458 [id number] Univers 00:00:00 00:00:00 Aimee Shore 350.1.13.10 ity of BUILDING 4.2.7.2.686 Sharif as [id number] [address] 2022-07-19 2022-07-19 Hospital Aimee Cooper 1.2.840 .114 [id number] Univers 15:45:00 23:59:00 Encounter 2, [facility] Linac H 35 0.1.13.10 ity of BUILDING 4.2.7.2.686 [place] as 396.7518186 [address] 2022-07-17 2022-07-17 [facility] LAGOS 1.2.840 .114 [id number] Univers 15:40:43 23:59:00 Encounter 1, detention Rad Oncology Linac H 35 0.1.13.10 ity of BUILDING 4.2.7.2.686 [place] as [id number] [address] 2022-07-17 2022-07-17 Telephone Kenneth DEMOND 1.2.840.114 10 [id number] Univers 00:00:00 00:00:00 Aimee H 350.1.13.10 ity of BUILDING 4.2.7.2.686 Shar[place] as [id number] [address] 2022-07-17 2022-07-17 Orders Doctor DEMOND 1.2.381.499 5154 [id number] Univers 00:00:00 00:00:00 Only Unassigned, H 350.1.13.10 ity of Tab BUILDING 4.2.7.2.686 Shar[place] as 149.5375086 [address] 2022-07-14 2022-07-14 [facility] 1.2.840 .114 [id number] Univers 14:57:45 23:59:00 Encounter 1, detention Rad Oncology Linac H 35 0.1.13.10 ity of BUILDING 4.2.7.2.686 [place] as [id number] [address] 2022-07-14 2022-07-14 [place] KennethDEMOND 1.2.840.114 10 [id number] Univers 00:00:00 00:00:00 Aimee H 350.1.13.10 ity of BUILDING 4.2.7.2.686 Shar[place] as 177.4532895 [address] 2022-07-14 2022-07-14 Orders Doctor DEMOND 1.2.094.261 [id number] [id number] Univers 00:00:00 00:00:00 Only Unassigned, H 350.1.13.10 ity of Tab BUILDING 4.2.7.2.686 Shar[place] as [id number] [address] 2022-07-13 2022-07-13 [facility] Aimee LAGOS 1.2.840 .114 [id number] Univers 15:30:00 23:59:00 Encounter 1, Varinder Russ Oncology Linac H 35 0.1.13.10 ity of BUILDING 4.2.7.2.686 [place] as [id number] [address] 2022-07-13 2022-07-13 Outpatient R AIMEE COOPER [facility] [id number] Univers 14:00:00 16:06:32 AIMEE COOPER ity of [facility] 2022-07-13 2022-07-13 Treatment Kenneth DEMOND 1.2.840.114 10 [id number] Univers 14:00:00 16:06:32 Management Aimee H 350.1.13.10 ity of BUILDING 4.2.7.2.686 [place] as 213.8986198 [address] 2022-07-13 2022-07-13 Telephone DEMOND Cooper 1.2.840.114 10 [id number] Univers 00:00:00 00:00:00 Aimee H 350.1.13.10 ity of BUILDING 4.2.7.2.686 [place] as 462.4038057 [address] 2022-07-13 2022-07-13 Orders Doctor DEMOND 1.2.728.950 8058 [id number] Univers 00:00:00 00:00:00 Only Unassigned, H 350.1.13.10 ity of Tab BUILDING 4.2.7.2.686 Shar[place] as 344.1300429 [address] 2022-07-12 2022-07-12 [facility] Kenneth Aimee LAGOS 1.2.840 .114 [id number] Univers 08:03:43 23:59:00 Encounter 1, Varinder Russ Oncology Linac H 35 0.1.13.10 ity of BUILDING 4.2.7.2.686 [place] as 211.0516342 [address] 2022-07-12 2022-07-12 Telephone KennethDEMOND 1.2.840.114 10 [id number] Univers 00:00:00 00:00:00 Aimee H 350.1.13.10 ity of BUILDING 4.2.7.2.686 Sharif as [id number] [facility] [address] 2022-07-12 2022-07-12 Orders Doctor DEMOND 1.2.365.966 6764 [id number] Univers 00:00:00 00:00:00 Only Unassigned, H 350.1.13.10 ity of Tab BUILDING 4.2.7.2.686 Sharif as 195.2095903 [facility] [address] 2022-07-11 2022-07-11 [facility] 1.2.840 .114 [id number] Univers 14:00:00 23:59:00 Encounter 1, detention Rad Oncology Linac H 35 0.1.13.10 ity of BUILDING 4.2.7.2.686 Sharif as 442.8695384 [facility] [address] 2022-07-11 2022-07-11 Telephone DEMOND Cooper 1.2.840.114 10 [id number] Univers 00:00:00 00:00:00 Aimee H 350.1.13.10 ity of BUILDING 4.2.7.2.686 Sharif as [id number] [facility] [address] 2022-07-11 2022-07-11 Refill SudhirDEMOND hurtado 1.2.248.474 0742 [id number] Univers 00:00:00 00:00:00 Aimee H 350.1.13.10 ity of BUILDING 4.2.7.2.686 Sharif as 338.9998866 [facility] [address] 2022-07-10 2022-07-10 [facility] 1.2.840 .114 [id number] Univers 15:30:00 23:59:00 Encounter 1, detention Rad Oncology Linac H 35 0.1.13.10 ity of BUILDING 4.2.7.2.686 Sharif as [id number] [facility] [address] 2022-07-10 2022-07-10 Treatment DEMOND Cooper 1.2.840.114 10 [id number] Univers 15:45:00 16:29:39 Management Aimee H 350.1.13.10 ity of BUILDING 4.2.7.2.686 Sharif as 103.3576992 [address] 2022-07-10 2022-07-10 Clinic DEMOND Cooper 1.2.287.064 [id number] [facility] 00:00:00 00:00:00 Assessment Aimee H 350.1.13.10 ity of BUILDING 4.2.7.2.686 Sharif as [id number] [address] 2022-07-10 2022-07-10 Orders Doctor DEMOND 1.2.003.808 9042 [id number] Univers 00:00:00 00:00:00 Only Unassigned, H 350.1.13.10 ity of Tab BUILDING 4.2.7.2.686 Sharif as 712.9992855 [address] 2022-07-07 2022-07-07 Telephone DEMOND Cooper 1.2.840.114 10 [id number] Univers 00:00:00 00:00:00 Aimee H 350.1.13.10 ity of BUILDING 4.2.7.2.686 Sharif as 502.8198411 [address] 2022-07-06 2022-07-06 Telephone DEMOND Cooper 1.2.840.114 10 [id number] Univers 00:00:00 00:00:00 Aimee H 350.1.13.10 ity of BUILDING 4.2.7.2.686 Sharif as 285.9829445 [address] 2022-07-04 2022-07-04 Telephone DEMOND Cooper 1.2.840.114 10 [id number] Univers 00:00:00 00:00:00 Aimee H 350.1.13.10 ity of BUILDING 4.2.7.2.686 Sharif as 354.0865809 [address] 2022-07-02 2022-07-02 Telephone DEMOND Cooper 1.2.840.114 10 [id number] Univers 00:00:00 00:00:00 Aimee H 350.1.13.10 ity of BUILDING 4.2.7.2.686 Sharif as 632.1121897 [address] 2022-06-30 2022-06-30 [facility] KennethAimee 1.2.840 .114 [id number] Univers 14:00:00 23:59:00 Encounter 1, detention Rad Oncology Linac H 35 0.1.13.10 ity of BUILDING 4.2.7.2.686 Sharif as [id number] [address] 2022-06-30 2022-06-30 Treatment DEMOND Brandon 1.2.840.114 10 [id number] Univers 14:15:00 15:12:10 Management S H 350.1.13.10 ity of BUILDING 4.2.7.2.686 Sharif as [id number] [address] 2022-06-30 2022-06-30 Outpatient R AIMEE COOPER [facility] [id number] Univers 14:00:00 14:00:00 AIMEE COOPER ity of [facility] 2022-06-29 2022-06-29 Telephone DEMOND Cooper 1.2.840.114 10 [id number] Univers 00:00:00 00:00:00 Aimee H 350.1.13.10 ity of BUILDING 4.2.7.2.686 Sharif as 190.8851390 [address] 2022-06-28 2022-06-28 [facility] 1.2.840 .114 [id number] Univers 08:21:28 23:59:00 Encounter 1, detention Rad Oncology Linac H 35 0.1.13.10 ity of BUILDING 4.2.7.2.686 Sharif as 655.6846276 [address] 2022-06-28 2022-06-28 Orders Doctor DEMOND 1.2.725.093 0275 [id number] Univers 00:00:00 00:00:00 Only Unassigned, H 350.1.13.10 ity of Tab BUILDING 4.2.7.2.686 Sharif as 562.3784453 [address] 2022-06-27 2022-06-27 [facility] 1.2.840 .114 [id number] Univers 13:14:23 23:59:00 Encounter 1, detention Rad Oncology Linac H 35 0.1.13.10 ity of BUILDING 4.2.7.2.686 Sharif as 483.1194201 [address] 2022-06-27 2022-06-27 Orders Doctor DEMOND 1.2.179.556 7180 [id number] Univers 00:00:00 00:00:00 Only Unassigned, H 350.1.13.10 ity of Tab BUILDING 4.2.7.2.686 Sharif as 999.5809558 [address] 2022-06-26 2022-06-26 [facility] Aimee Cooper 1.2.840 .114 [id number] Univers 13:46:39 23:59:00 Encounter 1, detention Rad Oncology Linac H 35 0.1.13.10 ity of BUILDING 4.2.7.2.686 Sharif as [id number] [address] 2022-06-26 2022-06-26 Outpatient R JOCELYN FAY [facility] [id number] Univers 12:30:00 12:30:00 JOCELYN FAY ity of [facility] 2022-06-26 2022-06-26 Orders Doctor DEMOND 1.2.321.128 [id number] Univers 00:00:00 00:00:00 Only Unassigned, H 350.1.13.10 ity of Tab BUILDING 4.2.7.2.686 Sharif as 473.3962121 [address] 2022-06-23 2022-06-23 Hospital Aimee Cooper 1.2.840 .114 [id number] Univers 13:39:50 23:59:00 Encounter 1, detention Rad Oncology Linac H 35 0.1.13.10 ity of BUILDING 4.2.7.2.686 Sharif as 895.8917161 [address] 2022-06-23 2022-06-23 Sort Line Worker [facility] UNIVERSIT 1.2.840.114 1 [id number] Univers 14:15:00 14:30:00 Visit Aimee Cooper HEALTH 350.1.13.10 ity of CLINICS [place] 264.8939559 [facility] [address] 2022-06-23 2022-06-23 Outpatient R AIMEE COOPER [facility] [id number] Univers 14:15:00 14:15:00 AIMEE COOPER [facility] 2022-06-23 2022-06-23 Outpatient R [facility] [id number] Univers 14:15:00 14:15:00 AIMEE COOPER [facility] 2022-06-23 2022-06-23 [facility] 1.[facility].840 .114 [id number] Univers 07:30:00 13:38:00 Encounter Physics, detention Rad Onc H 350.1.1 3.10 ity of BUILDING 4.2.7.2.686 Sharif as 798.4960209 [address] 2022-06-23 2022-06-23 [facility] [id number] Univers 11:00:00 11:00:[address] [facility] 2022-06-22 2022-06-22 Outpatient R [facility]ACK [facility] [id number] Univers 16:23:21 23:59:00 AIMEE COOPER [facility] 2022-06-22 2022-06-22 [facility] Kenneth[facility] 1.2.840.114 101 [id number] Univers 16:23:21 23:59:00 Encounter [facility] 350.1.13.10 ity of CLINICS [place] [id number] [facility] [address] 2022-06-22 2022-06-22 [facility] Aimee CooperFELICIAVaishnavi 1.2.840 .114 [id number] Univers 14:00:00 16:22:00 Encounter 1 detention Rad Oncology Linac H 35 0.1.13.10 ity of BUILDING 4.2.7.2.686 Sharif as [id number] [facility] [address] 2022-06-222022-06-22 Treatment SudhirDEMOND hurtado 1.2.840.114 10 [id number] Univers 14:15:00 16:21:02 Management Aimee H 350.1.13.10 ity of BUILDING 4.2.7.2.686 Sharif as 646.5649731 [address] 2022-06-22 2022-06-22 Orders Doctor DEMOND 1.2.086.327 [id number] [id number] Univers 00:00:00 00:00:00 Only Unassigned, H 350.1.13.10 ity of Tab BUILDING 4.2.7.2.686 Sharif as 341.8579736 [address] 2022-06-21 2022-06-21 Outpatient Checo BRANDON [facility] [id number] [facility] 13:15:00 23:59:00 itjavier of [facility] 2022-06-21 2022-06-21 Hospital Sandra Brandon 1.2.840 .114 [id number] Univers 13:15:00 23:59:00 Encounter 2, detention Rad Oncology Linac H 35 0.1.13.10 ity of BUILDING 4.2.7.2.686 Sharif as 126.5582287 [address] 2022-06-21 2022-06-21 Case DEMOND Cooper 1.2.078.942 [id number] [id number] Univers 00:00:00 00:00:00 Management Aimee Shore 350.1.13.10 ity of BUILDING 4.2.7.2.686 Sharif as 305.6166787 [address] 2022-06-20 2022-06-20 Hospital SudhirAimee hurtado 1.2.840 .114 [id number] Univers 10:06:15 23:59:00 Encounter 2, detention Rad Oncology Linac H 35 0.1.13.10 ity of BUILDING 4.2.7.2.686 Sharif as 966.6792501 [address] 2022-06-20 2022-06-20 Office LUIS Fay 1.2.840.114 [id number] Univers 11:00:00 11:30:00 Visit Jocelyn Y HEALTH 350.1.13.10 i ty of CLINICS [place] 510.7263877 [facility] [address] 2022-06-20 2022-06-20 Outpatient R JOCELYN FAY [facility] [id number] Univers 11:00:00 11:00:00 JOCELYN FAY ity of [facility] 2022-06-20 2022-06-20 Orders Doctor LAGOS 1.2.350.688 6150 [id number] Univers 00:00:00 00:00:00 Only Unassigned, H 350.1.13.10 ity of Tab BUILDING 4.2.7.2.686 Sharif as 421.6385506 [facility] [address] 2022-06-19 2022-06-19 Outpatient R AIMEE COOPER [facility] [id number] Univers 14:30:00 23:59:00 AIMEE COOPER [facility] 2022-06-19 2022-06-19 [facility] Aimee Cooper 1.2.840 .114 [id number] Univers 14:30:00 23:59:[address], [facility] Rad Oncology H 350.1.1 3.10 ity of BUILDING 4.2.7.2.686 Sharif as 588.6602347 [facility] [address] 2022-06-19 2022-06-19 [facility] SudhirAimee hurtado 1.2.840 .114 [id number] Univers 14:00:00 14:29:00 Encounter 1Varinder Rad Oncology Linac H 35 0.1.13.10 ity of BUILDING 4.2.7.2.686 Sharif as 432.1723616 [facility] [address] 2022-06-19 2022-06-19 Nurse 2, [facility] Infusion Chair UNIVERSIT 1. 2.840.114 [id number] Univers 12:30:00 14:25:36 Visit Carina Emerson HEALTH 350.1.13.[address] [facility] 4.2.7.2.686 [place] [id number] [facility] [address] 2022-06-19 2022-06-19 [facility] [id number] Univers 13:15:00 13:15:00 CARINA ity of [facility] 2022-06-19 2022-06-19 Telephone DEMOND Cooper 1.2.840.114 10 [id number] Univers 00:00:00 00:00:00 Aimee H 350.1.13.10 ity of BUILDING 4.2.7.2.686 Sharif as 894.5530324 [address] 2022-06-19 2022-06-19 Orders Doctor DEMOND 1.2.416.514 [id number] Univers 00:00:00 00:00:00 Only Unassigned, H 350.1.13.10 ity of Tab BUILDING 4.2.7.2.686 Sharif as 137.5798574 [address] 2022-06-16 2022-06-16 Outpatient R AIMEE COOPER [facility] [id number] Univers 15:15:48 23:59:00 AIMEE COOPER javier [facility] 2022-06-16 2022-06-16 [facility] 1.2.840.114 [id number] Univers 15:15:48 23:59:00 Encounter Aimee SPECIALTY 350.1.13.10 ity of CARE [place].2.[place] C[place] [id number] [facility] [address] [facility] 2022-06-16 2022-06-16 [facility] Aimee Cooper 1.2.840 .114 [id number] Univers 13:47:48 15:14:00 Encounter 1, Varinder Salomon Linac H 35 0.1.13.10 ity of BUILDING 4.2.7.2.686 Sharif as 188.1270119 [address] 2022-06-16 2022-06-16 Sort Line Worker [facility]ERS[facility] 1.2.840.114 1 [id number] Univers 13:30:00 13:45:00 Visit Unknown, Attending HEALTH 350.1.13.1 0 ity of CLINICS 4[place].7.2.[place] [id number] [facility] [address] 2022-06-16 2022-06-16 Outpatient R IDANIA, [facility] [id number] Univers 13:30:00 13:30:00 CARINA ity of [facility] 2022-06-15 2022-06-15 Hospital Kenneth Aimee LAGOS 1.2.840 .114 [id number] Univers 13:41:36 23:59:00 Encounter 1, detention Rad Oncology Linac H 35 0.1.13.10 ity of BUILDING 4.2.7.2.686 Sharif as [id number] [address] 2022-06-15 2022-06-15 Treatment Kenneth DEMOND 1.2.840.114 10 [id number] Univers 14:15:00 15:39:23 Management Aimee H 350.1.13.10 ity of BUILDING 4.2.7.2.686 Sharif as 174.5322522 [address] 2022-06-15 2022-06-15 Orders Doctor DEMOND 1.2.570.226 6916 [id number] Univers 00:00:00 00:00:00 Only Unassigned, H 350.1.13.10 ity of Tab BUILDING 4.2.7.2.686 Sharif as 224.9771753 [address] 2022-06-14 2022-06-14 [facility] hurtadoAimeejoaquin LAGOS 1.2.840 .114 [id number] Univers 13:33:46 23:59:00 Encounter 1, detention Rad Oncology Linac H 35 0.1.13.10 ity of BUILDING 4.2.7.2.686 Sharif as 294.0556636 [address] 2022-06-14 2022-06-14 Orders Doctor DEMOND 1.2.279.970 [id number] Univers 00:00:00 00:00:00 Only Unassigned, H 350.1.13.10 ity of Tab BUILDING 4.2.7.2.686 Sharif as 319.6453901 [address] 2022-06-13 2022-06-13 [facility] hurtadoAimeejoaquin LAGOS 1.2.840 .114 [id number] Univers 14:00:00 23:59:00 Encounter 1, detention Rad Oncology Linac H 35 0.1.13.10 ity of BUILDING 4.2.7.2.686 Sharif as 210.6951672 [address] 2022-06-13 2022-06-13 Orders Doctor DEMOND 1.2.002.453 2521 [id number] [facility] 00:00:00 00:00:00 Only Unassigned, H 350.1.13.10 ity of Tab BUILDING 4.2.7.2.686 Sharif as 169.6512995 [address] 2022-06-12 2022-06-12 Hospital KennethAimee 1.2.840 .114 [id number] Univers 14:00:00 23:59:00 Encounter 1, detention Rad Oncology Linac H 35 0.1.13.10 ity of BUILDING 4.2.7.2.686 Sharif as 339.7953363 [address] 2022-06-12 2022-06-12 Nurse 6, [facility] Infusion Chair UN[facility]ERSIT 1. 2.840.114 [id number] [facility] 12:30:00 14:57:11 Visit Carina Emerson [facility] 350.1.13.10 ity of CLINICS 4[place]2.7.2.[place] [id number] [facility] [address] 2022-06-12 2022-06-12 Outpatient R IDANIA, [facility] [id number] [facility] 12:30:00 12:30:00 CARINA ity of [facility] 2022-06-09 2022-06-09 Hospital KennethAimee 1.2.840 .114 [id number] Univers 14:53:46 23:59:00 Encounter 1, detention Rad Oncology Linac H 35 0.1.13.10 ity of BUILDING 4.2.7.2.686 Sharif as 647.8507274 [address] 2022-06-08 2022-06-09 Treatment SudhirDEMOND hurtado 1.2.840.114 10 [id number] Univers 14:15:00 18:23:41 Management Aimee Shore 350.1.13.10 ity of BUILDING 4.2.7.2.686 Sharif as 194.2606560 [place] [address] 2022-06-09 2022-06-09 Sort Line Worker [facility] 1.2.840.114 1 [id number] Univers 13:30:00 13:45:00 Visit Carina Emerson [facility] 350.1.13.10 ity of CLINICS 4[place]2.7.2.[place] [id number] [place] [address] [address] 2022-06-09 2022-06-09 Outpatient R IDANIA, [facility] [id number] [facility] 13:30:00 13:30:00 CARINA ity of [facility] 2022-06-09 2022-06-09 Orders Doctor LAGOS 1.2.108.486 [id number] [id number] Univers 00:00:00 00:00:00 Only Unassigned, H 350.1.13.10 ity of Tab BUILDING 4.2.7.2.686 Sharif as 919.5388639 [address] 2022-06-08 2022-06-08 [facility]ado 1.2.840 .114 [id number] Univers 13:12:35 23:59:00 Encounter 1, detention Rad Oncology Linac H 35 0.1.13.10 ity of BUILDING 4.2.7.2.686 Sharif as 282.8183137 [address] 2022-06-08 2022-06-08 Orders Doctor LAGOS 1.2.187.727 [id number] Univers 00:00:00 00:00:00 Only Unassigned, H 350.1.13.10 ity of Tab BUILDING 4.2.7.2.686 Sharif as 663.8951288 [address] 2022-06-07 2022-06-07 [facility]ado 1.2.840 .114 [id number] Univers 14:00:00 23:59:00 Encounter 1, detention Rad Oncology Linac H 35 0.1.13.10 ity of BUILDING 4.2.7.2.686 Sharif as 233.7314576 [address] 2022-06-07 2022-06-07 Orders Doctor LAGOS 1.2.963.452 [id number] Univers 00:00:00 00:00:00 Only Unassigned, H 350.1.13.10 ity of Tab BUILDING 4.2.7.2.686 Sharif as [id number] [facility] [address] 2022-06-06 2022-06-06 [facility] hurtado 1.2.840 .114 [id number] Univers 13:14:05 23:59:00 Encounter 1, detention Rad Oncology Linac H 35 0.1.13.10 ity of BUILDING 4.2.7.2.686 Sharif as 126.7727599 [facility] [address] 2022-06-06 2022-06-06 Orders Doctor DEMOND 1.2.326.540 [id number] [facility] 00:00:00 00:00:00 Only Unassigned, H 350.1.13.10 ity of Tab BUILDING 4.2.7.2.686 Sharif as [phone] [facility] [address] [place] 2022-06-05 2022-06-05 [facility] 1.2.840 .114 [id number] [facility] 14:00:00 23:59:00 Encounter 1, detention Rad Oncology Linac H 35 0.1.13.10 ity of BUILDING 4.2.7.2.686 Sharif as [phone] [facility] [address] [place] 2022-06-05 2022-06-05 Nurse 1, [facility] Infusion Chair UNIVERSIT 1. 2.840.114 [id number] Univers 12:00:00 13:30:00 Visit Carina Emerson HEALTH 350.1.13.10 ity of Jocelyn Fay CLINICS 4.2.7.2.686 [place] [id number] [facility] [address] 2022-06-05 2022-06-05 Sort Line Worker [facility] UNIVERSIT 1.2.840.114 1 [id number] Univers 10:15:00 10:30:00 Visit Jocelyn Fay Y HEALTH 350.1.13.10 ity of CLIN[place] [id number] [facility] [address] 2022-06-05 2022-06-05 Outpatient R JOCELYN FAY [facility] [id number] Univers 10:15:00 10:15:00 OJCELYN FAY itjavier of [facility] 2022-06-05 2022-06-05 Case Sumeet, UNIVERSIT 1.2.840.114 [id number] Univers 00:00:00 00:00:00 Management Jocelyn Sal [facility] 350.1.13.10 ity of CLIN[place] [id number] [facility] [address] 2022-06-02 2022-06-02 [facility] 1.2.840 .114 [id number] [facility] 14:00:00 23:59:00 Encounter 1, detention Rad Oncology Linac H 35 0.1.13.10 ity of BUILDING 4.2.7.2.686 Sharif as [id number] [facility] [address] [place] 2022-06-02 2022-06-02 Sort Line Worker [facility] UNIVERSIT 1.2.840.114 1 [id number] Univers 15:00:00 15:15:00 Visit Carina Emerson 350.1.13.10 ity of CLIN[place] [id number] [facility] [address] 2022-06-02 2022-06-02 Outpatient R IDANIA [facility] [id number] Univers 15:00:00 15:00:00 CARINAJavier ulloa [facility] 2022-06-02 2022-06-02 Orders Doctor DEMOND 1.2.178.421 [id number] Univers 00:00:00 00:00:00 Only Unassigned, H 350.1.13.10 ity of Tab BUILDING 4.2.7.2.686 Sharif as [phone] [facility] [address] [place] 2022-06-01 2022-06-01 [facility] Aimee Cooper 1.2.840 .114 [id number] Univers 13:47:36 23:59:00 Encounter 1, detention Rad Oncology Linac H 35 0.1.13.10 ity of BUILDING 4.2.7.2.686 Sharif as [id number] [address] 2022-06-01 2022-06-01 Treatment KennethDEMOND 1.2.840.114 10 [id number] Univers 14:15:00 15:58:15 Management Aimee H 350.1.13.10 ity of BUILDING 4.2.7.2.686 Sharif as [phone] [address] 2022-06-01 2022-06-01 Orders Doctor DEMOND 1.2.847.850 [id number] Univers 00:00:00 00:00:00 Only Unassigned, H 350.1.13.10 ity of Tab BUILDING 4.2.7.2.686 Sharif as [phone] [address] 2022-05-31 2022-05-31 Hospital KennethAimee 1.2.840 .114 [id number] Univers 14:00:00 23:59:00 Encounter 1, detention Rad Oncology Linac H 35 0.1.13.10 ity of BUILDING 4.2.7.2.686 Sharif as [phone] [address] 2022-05-31 2022-05-31 Orders Doctor DEMOND 1.2.570.797 [id number] Univers 00:00:00 00:00:00 Only Unassigned, H 350.1.13.10 ity of Tab BUILDING 4.2.7.2.686 Sharif as [phone] [address] 2022-05-30 2022-05-30 [facility] 1.2.840 .114 [id number] Univers 13:21:40 23:59:00 Encounter 1, detention Rad Oncology Linac H 35 0.1.13.10 ity of BUILDING 4.2.7.2.686 Sharif as [id number] [address] 2022-05-30 2022-05-30 Office LUIS Fay 1.2.840.114 [id number] Univers 15:30:00 16:00:00 Visit [facility] 350.1.13.10 i ty of CL[place]ICS [place] [id number] [facility] [address] 2022-05-30 2022-05-30 Outpatient R JOCELYN FAY [facility] [id number] Univers 15:30:00 15:30:00 JOCELYN FAY javier [facility] 2022-05-30 2022-05-30 Outpatient R JOCELYN FAY [facility] [id number] Univers 15:00:00 15:00:00 JOCELYN FAY javier [facility] 2022-05-30 2022-05-30 Outpatient R AIMEE COOPER [facility] [id number] Univers 13:21:40 13:21:40 AIMEE COOPER javier [facility] 2022-05-30 2022-05-30 Outpatient R SUMEET JOCELYN [facility] [id number] Univers 11:30:00 11:30:[address] [facility] 2022-05-30 2022-05-30 Orders Doctor DEMOND 1.2.926.109 [id number] Univers 00:00:00 00:00:00 Only Unassigned, H 350.1.13.10 ity of Tab BUILDING 4.2.7.2.686 Sharif as [phone] [facility] [address] 2022-05-29 2022-05-29 Hospital Selvin Cooperjoaquin LAGOS 1.2.840 .114 [id number] Univers 14:00:00 23:59:00 Encounter 1, [facility] Linac H 35 0.1.13.10 ity of BUILDING 4.2.7.2.686 Sharif as [id number] [facility] [address] 2022-05-29 2022-05-29 Nurse 10, [facility] Infusion Chair UNIVERSIT 1 .2.840.114 [id number] Univers 12:30:00 13:54:56 Visit Carnia Emerson [facility] 350.1.13.10 ity of CL[place]ICS [place] [id number] [facility] [address] 2022-05-29 2022-05-29 Outpatient R IDANIA [facility] [id number] Univers 12:30:00 12:30:00 CARINA ulloa [facility] 2022-05-29 2022-05-29 Outpatient R IDANIA [facility] [id number] Univers 12:30:00 12:30:00 CARINA ulloa [facility] 2022-05-29 2022-05-29 Orders Doctor LAGOS 1.2.242.827 [id number] Univers 00:00:00 00:00:00 Only Unassigned, H 350.1.13.10 ity of Tab BUILDING 4.2.7.2.686 Sharif as [phone] [address] 2022-05-26 2022-05-26 Hospital KennethAimee 1.2.840 .114 [id number] Univers 13:15:38 23:59:00 Encounter 1Varinder Linac H 35 0.1.13.10 ity of BUILDING 4.2.7.2.686 Sharif as [id number] [address] 2022-05-26 2022-05-26 Treatment DEMOND Cooper 1.2.840.114 10 [id number] Univers 14:15:00 15:23:50 Management Aimee H 350.1.13.10 ity of BUILDING 4.2.7.2.686 Sharif as [id number] [address] 2022-05-26 2022-05-26 Sort Line Worker [facility] UNIVERSIT 1.2.840.114 1 [id number] Univers 14:30:00 14:45:00 Visit Carina Emerson [facility] 350.1.13.10 ity of CL[place] [id number] [address] 2022-05-26 2022-05-26 Outpatient R IDANIA [facility] [id number] Univers 14:30:00 14:30:00 CARINA ulloa [facility] 2022-05-26 2022-05-26 Outpatient R IDANIA [facility] [id number] Univers 13:30:00 13:30:00 CARINA ulloa [facility] 2022-05-26 2022-05-26 Orders Doctor LAGOS 1.2.063.065 [id number] Univers 00:00:00 00:00:00 Only Unassigned, H 350.1.13.10 ity of Tab BUILDING 4.2.7.2.686 Sharif as [id number] [facility] [address] 2022-05-26 2022-05-26 Robbie Fay, UNIVERSIT 1.2.840.114 [id number] Univers 00:00:00 00:00:00 Management [facility] 350.1.13.10 ity of CL[place] [id number] [facility] [address] 2022-05-25 2022-05-25 [facility] 1.2.840 .114 [id number] Univers 13:14:10 23:59:00 Encounter 1, detention Rad Oncology Linac H 35 0.1.13.10 ity of BUILDING 4.2.7.2.686 Sharif as [id number] [facility] [address] 2022-05-25 2022-05-25 Orders Doctor LAGOS 1.2.765.066 [id number] [id number] Univers 00:00:00 00:00:00 Only Unassigned, H 350.1.13.10 ity of Tab BUILDING 4.2.7.2.686 Sharif as 650.3933505 [facility] [address] 2022-05-24 2022-05-24 [facility] 1.2.840 .114 [id number] Univers 13:48:23 23:59:00 Encounter 1, detention Rad Oncology Linac H 35 0.1.13.10 ity of BUILDING 4.2.7.2.686 Sharif as [phone] [address] 2022-05-24 2022-05-24 Orders Doctor DEMOND 1.2.645.993 [id number] Univers 00:00:00 00:00:00 Only Unassigned, H 350.1.13.10 ity of Tab BUILDING 4.2.7.2.686 Sharif as [id number] [address] 2022-05-23 2022-05-23 [facility] 1.2.840 .114 [id number] Univers 13:03:39 23:59:00 Encounter 1, detention Rad Oncology Linac H 35 0.1.13.10 ity of BUILDING 4.2.7.2.686 Sharif as [id number] [address] 2022-05-23 2022-05-23 Orders Doctor LAGOS 1.2.406.918 [id number] Univers 00:00:00 00:00:00 Only Unassigned, H 350.1.13.10 ity of Tab BUILDING 4.2.7.2.686 Sharif as 237.1033352 [address] 2022-05-22 2022-05-22 [facility] 1.2.840 .114 [id number] Univers 14:15:00 23:59:00 Encounter 1, detention Rad Oncology Linac H 35 0.1.13.10 ity of BUILDING 4.2.7.2.686 Sharif as 467.5532915 [address] 2022-05-22 2022-05-22 Nurse 2, [facility] Infusion Chair UNIVERSIT 1. 2.840.114 [id number] Univers 12:00:00 14:58:55 Visit GrantCarina [facility] 350.1.13.10 ity of Cecilio Fay [facility] 4.2.7.2.686 Jocelyn Quiñones [id number] [place] [address] 2022-05-22 2022-05-22 [facility] SudhirAimee hurtado 1.2.840 .114 [id number] Univers 14:00:00 14:14:00 Encounter 1, detention Rad Oncology Linac H 35 0.1.13.10 ity of BUILDING 4.2.7.2.686 Sharif as [id number] [address] 2022-05-22 2022-05-22 Outpatient JOCELYN OSORIO [facility] [id number] Univers 12:00:00 12:00:00 JOCELYN FAY ity of [facility] 2022-05-22 2022-05-22 Orders Doctor LAGSO 1.2.123.856 [id number] Univers 00:00:00 00:00:00 Only Unassigned, H 350.1.13.10 ity of Tab BUILDING 4.2.7.2.686 Sharif as 564.0373204 [address] 2022-05-19 2022-05-19 Outpatient R AIMEE COOPER [facility] [id number] Univers 07:00:00 23:59:00 AIMEE COOPER ity of [facility] 2022-05-19 2022-05-19 [facility] Aimee Cooper 1.2.840 .114 [id number] Univers 07:00:00 23:59:00 Encounter Margarito, [facility] Jessi H 350.1.1 3.10 ity of BUILDING 4.2.7.2.686 Sharif as [phone] [address] 2022-05-19 2022-05-19 Sort Line Worker Garrett, [facility] Lab Main [facility] 1.2.8 40.114 [id number] Univers 13:30:00 13:45:00 Visit Carina Emerson 350.1.13.10 ity [facility] [place].7.2.[place] [phone] Wi dical [address] 2022-05-19 2022-05-19 [facility] [id number] Univers 13:30:00 13:30:00 CARINA ity [facility] 2022-05-19 2022-05-19 Outpatient R IDANIA [facility] [id number] Univers 13:30:00 13:30:00 CARINA ity of [facility] 2022-05-16 2022-05-16 Telephone DEMOND Cooper 1.2.840.114 10 [id number] Univers 00:00:00 00:00:00 Aimee Shore 350.1.13.10 ity of [facility] 4.2.7.2.686 Sharif as [id number] [address] 2022-05-12 2022-05-12 Sort Line Worker Garrett, Adc Lab Main [facility] 1.2.8 40.114 [id number] Univers 12:45:00 13:00:00 Visit Carina Emerson 350.1.13.10 ity of [facility] [place] [phone] Wi dical REPLACED BY [facility] [address] BUILDING 2022-05-12 2022-05-12 Outpatient R IDANIA [facility] [id number] Univers 12:45:00 12:45:00 CARINA ity [facility] 2022-05-12 2022-05-12 Outpatient R IDANIA [facility] [id number] Univers 10:30:00 10:30:00 CARINA ity of [facility] 2022-05-09 2022-05-09 Telephone DEMOND Cooper 1.2.840.114 10 [id number] Univers 00:00:00 00:00:00 Aimee Shore 350.1.13.10 ity of [facility] 4.2.7.2.686 Sharif as [phone] [facility] [address] 2022-05-06 2022-05-06 LUIS Eagle 1.2.840.114 [id number] Univers 00:00:00 00:00:00 [facility] 350.1.13.10 i ty of CLINICS [place] [id number] [facility] [address] 2022-05-05 2022-05-05 Orders Doctor JEREMY 1.2.840.114 [id number] Univers 00:00:00 00:00:00 Only Unassigned, LUCIAN 350.1.13.10 ity of Tab HOSPITAL 4.2.7.2.686 Sharif as 752.2547544 [facility] [address] 2022-05-04 2022-05-04 Hospital Aimee Cooper 1.2.840 .114 [id number] Univers 08:45:38 23:59:[address], [facility] Rad Oncology H 350.1.1 3.10 ity of [facility] 4.2.7.2.686 Sharif as [id number] [facility] [address] 2022-05-04 2022-05-04 Outpatient R AIMEE COOPER [facility] [id number] Univers 08:45:38 23:59:00 AIMEE COOPER ity [facility] 2022-05-04 2022-05-04 Office DEMOND Cooper 1.2.977.029 [id number] Univers 09:00:00 09:30:17 Visit Aimee Shore 350.1.13.10 ity of [facility] 4.2.7.2.686 Sharif as [id number] [address] 2022-05-04 2022-05-04 [facility]phone [facility] 1.2.840.114 1 [id number] Univers 00:00:00 00:00:00 Carina Redeem&Get 350.1.13.10 i ty of CLINICS [place] [id number] [address] 2022-05-04 2022-05-04 Patient Feliciano [facility] 1.2.840.114 100 [id number] Univers 00:00:00 00:00:00 Outreach Jameson Elizabeth Redeem&Get 350.1.13.10 ity of [facility] [place].2.7.2.[place] [id number] [address] 2022-05-03 2022-05-03 Telephone [facility] 12.840.11 4 [id number] Univers 00:00:00 00:00:00 Jocelyn HEALTH 350.1.13.10 i ty of CLINICS [place] 141.5472734 [address] 2022-05-03 2022-05-03 Refsharita [facility] 1.2.840.114 [id number] Univers 00:00:00 00:00:00 NPS HEALTH 350.1.13.10 i ty of CLINICS [place] 515.4967301 [address] 2022-05-02 2022-05-02 Office Sumeet [facility] 1.2.840.114 [id number] Univers 14:30:00 15:00:00 Visit Jocelyn Redeem&Get 350.1.13.10 i ty of CLINICS [place].2.[place] [id number] [address] 2022-05-02 2022-05-02 Outpatient R JOCELYN FAY [facility] [id number] Univers 14:30:00 14:30:00 SUEMET JOCELYN ity [facility] 2022-05-02 2022-05-02 Orders Doctor JEREMY 1.2.840.114 [id number] Univers 00:00:00 00:00:00 Only Unassigned, LUCIAN 350.1.13.10 ity of Tab HOSPITAL 4.2.7.2.686 Sharif as [id number] [facility] [address] 2022-04-28 2022-04-28 Case Clementina [facility] 1.2.840.114 10 [id number] Univers 00:00:00 00:00:00 Management Penny Y HEALTH 350.1.13.10 ity of CLINICS [place] [id number] [facility] [address] 2022-04-27 2022-04-27 [facility] 1.2.840.114 [id number] Univers 08:05:00 23:59:00 Encounter Helder M SPECIALTY 350.1.13.10 ity of C[place].2.[place] 569.0545668 Wi dicaureliano JANSEN [address] [place] [address] 2022-04-27 2022-04-27 [facility] 1.2.840.114 [id number] Univers 07:22:55 08:04:00 Encounter Penny SPECIALTY 350.1.13.10 ity of C[place]2.[place] 132.1946422 Wi dicaureliano YOUNGY [address] [facility] 2022-04-27 2022-04-27 [facility] 1.2.840.114 [id number] Univers 07:21:21 07:21:21 Encounter Penny SPECIALTY 350.1.13.10 ity of C[place]2.[place] [phone] Wi dicaureliano YOUNGY [address] [place] [address] 2022-04-27 2022-04-27 Outpatient [facility] [id number] Univers 07:20:53 07:20:53 PENNY ity [facility] 2022-04-27 2022-04-27 [facility] 1.2.840.114 [id number] Univers 07:20:53 07:20:53 Encounter Penny SPECIALTY 350.1.13.10 ity of C[place].2.[place] C[place] [phone] Wi yamila [place] 073754 [facility] 2022-04-12 2022-04-12 Telephone SumeetKAREENJENNA 1.2.840.11 4 [id number] Univers 00:00:00 00:00:00 Jocelyn Y HEALTH 350.1.13.10 i ty of CLINICS [place].2.[place] [id number] [facility] [address] 2022-04-11 2022-04-11 Sort Line Worker [facility] UNIVERSIT 1.2.840.114 9 [id number] Univers 11:30:00 11:45:00 Visit Jocelyn Fay Javier LLOYD 350.1.13.10 ity of CLINICS 4[place]2.[place].2.[place] 409.4416369 [facility] [address] 2022-04-11 2022-04-11 Office LUIS Fay 1.2.840.114 [id number] Univers 08:30:00 09:30:00 Visit Jocelyn LLOYD 350.1.13.10 i ty of CLINICS [place] 352.6712687 [facility] [address] 2022-04-11 2022-04-11 Outpatient R JOCELYN FAY [facility] [id number] Univers 08:30:00 08:30:00 JOCELYN FAY ity of [facility] 2022-04-11 2022-04-11 Orders Doctor JEREMY 1.2.840.114 [id number] Univers 00:00:00 00:00:00 Only UnassignedLUCIAN 350.1.13.10 ity of Tab HOSPITAL 4.2.7.2.686 Sharif as 586.9015426 [facility] [address] 2022-03-28 2022-03-28 Orders Doctor JEREMY 1.2.840.114 [id number] Univers 00:00:00 00:00:00 Only Unassigned, LUCIAN 350.1.13.10 ity of Tab HOSPITAL 4.2.7.2.686 Sharif as 056.6062630 [address] 2022-03-16 2022-03-16 [facility] [id number] Univers 14:00:00 15:17:14 RUPAL ity of [facility] 2022-03-16 2022-03-16 [facility] 1.2.840.114 [id number] Univers 14:00:00 15:17:14 Visit Rupal LESLIE 350.1.13.10 ity of [place].2.[place] [phone] Wi dic[address] 2022-03-10 2022-03-10 Outpatient R [facility] [id number] Univers 13:00:00 15:47:09 RUPAL ity [facility] 2022-03-10 2022-03-10 Office [facility] 1.2.840.114 [id number] Univers 13:00:00 15:47:09 Visit Rupal AGUILAIVETTE 350.1.13.10 ity of [place].2.[place] [id number] Wi dical [address] 2022-03-10 2022-03-10 Orders Doctor LUNA 1.2.840.114 [id number] Univers 00:00:00 00:00:00 Only Unassigned, LUCIAN 350.1.13.10 ity of Tab HOSPITAL 4.2.7.2.686 Sharif as 404.6698437 [address] 2022-02-19 2022-02-19 Telephone [facility] 1.2.840.11 4 [id number] Univers 00:00:00 00:00:00 Ti ESPINAL 350.1.13.10 it y of [place] 417.7432903 [address] 2022-02-14 2022-02-14 Outpatient R TI MOYA [facility] B [id number] Univers 10:45:00 12:02:31 TRITYLERTHUANDAJUAN ity of [facility] 2022-02-14 2022-02-14 Office Verna [facility] 1.2.840.114 [id number] [facility] 10:45:00 12:02:31 Visit Ti ESPINAL 350.1.13.10 it y of WOMEN'S 4.2.7.2.686 [facility] HEALTH [id number] [address] 2022-02-14 2022-02-14 Orders Doctor JEREMY 1.2.840.114 [id number] Univers 00:00:00 00:00:00 Only Unassigned, LUCIAN 350.1.13.10 ity of Tab [facility] 4.2.7.2.686 Sharif 036.6708934 [address] 2022-02-13 2022-02-13 Telephone Verna [facility] 1.2.840.11 4 [id number] Univers 00:00:00 00:00:00 Ti ESPINAL 350.1.13.10 it y of WOMEN'S 4.2.7.2.686 [facility] HEALTH [id number] [address] 2021-10-21 2021-10-21 Outpatient AMBREEN_[place] [id number] [place] 10:22:00 10:22:00 MADDISON 0722 da [facility] 2020-09-29 2020-09-29 Office Sam, 1.2.840.2 [id number] Methodi 13:29:59 15:14:17 Visit Gill Euceda 07642.1.[address] 3.430.2.7 Hospit a .3.722742 l .8 2020-09-27 2020-09-27 Telephone Antwan 1.2.840.1 [id number] 21 [id number] Methodi 00:00:00 00:00:[address] 3.430.2.7 Hospit a .3.337142 l .8 2020-09-23 2020-09-23 Patient Mara Weston.2.840.1 [id number] 13468 Methodi 00:00:00 00:00:00 Outreach Ev 18577.1.[address] 3.430.2.7 Hospit a .3.828214 l .8 2020-09-23 2020-09-23 Travel 1.2.840.1 1.2.037.365 8929 525900 Methodi 00:00:00 00:00:[address] 3.430.2.7 0.2.7.3.698 Ho spita .3.326766 084.8 l .8 2020-09-16 2020-09-22 [facility] Krista Flex 1.2.840.1 [id number] Methodi 06:55:00 16:56:00 Encounter Jean-Paul Ambrose 90813.1.[address] 3.430.2.7 Hospit a .3.422796 l .8 2020-09-19 2020-09-19 Anesthesia Christopher 1.2.840.1 [id number] Methodi 10:08:00 12:38:00 Event [place] 71594.1.[address] 3.430.2.7 Hospit a .3.932605 l .8 2020-09-19 2020-09-19 Surgery Mostafa, 1.2.840.1 [id number] 01382 75043 Methodi 10:15:00 12:35:[address] 3.430.2.7 Hospit a .3.771666 l .8 2020-09-17 2020-09-17 Surgery Pily Pedraza 1.2.840.1 [id number] 2099 [id number] Methodi 14:30:00 15:30:[address] 3.430.2.7 Hospit a .3.866925 l .8 2020-09-17 2020-09-17 Anesthesia Mars Mcclellan 1.2.840.1 [id number] Methodi 14:35:00 15:21:00 Event Gabriella Nascimento 05563.1.[address] 3.430.2.7 Hospit a .3.025668 l .8 2020-09-16 2020-09-16 Travel 1.2.840.1 1.2.406.331 6187 558933 Methodi 00:00:00 00:00:[address] 3.430.2.7 0.2.7.3.698 Ho spita .3.081170 084.8 l .8 2020-08-19 2020-08-19 [facility] 1.2.840.1 [id number] 2 [id number] Methodi 15:15:00 23:59:00 Encounter , Gm 70454.1.1 101 s t [facility] 3.430.2.7 Hosp bi .3.127602 l .8 2020-08-19 2020-08-19 [facility] 1.2.840.1 [id number] 21 [id number] Methodi 14:08:02 15:01:54 Visit , [place] [address].1.[address] [facility] 3.430.2.7 Hosp bi .3.377048 l .8 2020-08-19 2020-08-19 Telephone Ron 1.2.840.1 [id number] Methodi 00:00:00 00:00:[address] 3.430.2.7 Hospit a .3.942845 l .8 2020-08-19 2020-08-19 Zachariah Velasquez 1.2.840.1 [id number] 21 [id number] Methodi 00:00:00 00:00:00 Only Amritha 99026.1.[address] 3.430.2.7 Hospit a .3.066656 l .8 2020-08-19 2020-08-19 Travel 1.2.840.1 1.2.631.406 9535 062920 Methodi 00:00:00 00:00:[address] 3.430.2.7 0.2.7.3.698 Ho spita .3.448547 084.8 l .8 2020-08-09 2020-08-09 Orders Ron, 1.2.840.1 [id number] 21 [id number] Methodi 00:00:00 00:00:00 Only Amritha 22822.1.[address] 3.430.2.7 Hospit a .3.495672 l .8 2020-08-05 2020-08-05 Telephone Christycharlie, 1.2.840.1 [id number] Methodi 00:00:00 00:00:[address] 3.430.2.7 Hospit a .3.020807 l .8 2020-08-02 2020-08-02 Telephone Blanca, 1.2.840.1 [id number] 2099 363854 Methodi 00:00:00 00:00:[address] 3.430.2.7 Hospit a .3.424617 l .8 2020-07-30 2020-07-30 Telephone Blanca, 1.2.840.1 [id number] 2099 [id number] Methodi 00:00:00 00:00:[address] 3.430.2.7 Hospit a .3.090342 l .8 2020-07-19 2020-07-27 [facility] 1.2.840.1 [id number] 2 [id number] Methodi 05:26:00 16:33:00 Gm Santizo 02224.1.1 [address] Patricachand 3.430.2.7 Hosp bi .3.241092 l .8 2020-07-19 2020-07-19 Anesthesia Abel Adkins 1.2.840.1 [id number] 8 [id number] Methodi 07:38:00 15:39:00 Event Jovita Harper 05237.1.[address] 3.430.2.7 Hospit a .3.790817 l .8 2020-07-19 2020-07-19 Surgery [facility] 1.2.840.1 [id number] 21 [id number] Methodi 07:30:00 15:30:00 , Gm [address]2488.1.[address] [place] 3.430.2.7 Hosp bi .3.567532 l .8 2020-07-19 2020-07-19 Travel 1.2.840.1 1.2.311.433 1490 398702 Methodi 00:00:00 00:00:[address] 3.430.2.7 0.2.7.3.698 Ho spita .3.627144 084.8 l .8 2020-07-15 2020-07-15 Telephone Christycharlie, 1.2.840.1 [id number] Methodi 00:00:00 00:00:[address] 3.430.2.7 Hospit a .3.730005 l .8 2020-07-15 2020-07-15 Orders Dequansheribrandy, 1.2.840.1 [id number] 21 [id number] Methodi 00:00:00 00:00:00 Only Veronica 39291.1.[address] 3.430.2.7 Hospit a .3.927853 l .8 2020-07-14 2020-07-14 [facility] 1.2.840.1 [id number] 2 [id number] Methodi 11:14:28 23:59:00 Gm Santizo 29089.1.1 [address] [place] 3.430.2.7 Hosp bi .3.028220 l .8 2020-07-14 2020-07-14 Pre-Admiss [facility] 1.2.840.1 [id number] Methodi 12:26:29 13:26:29 Gm estrada 21782.1.[address] Testing [place] 3.430.2.7 Hosp bi .3.009324 l .8 2020-07-14 2020-07-14 [facility] 326 [id number] [place] 00:00:00 00:00:00 , GM [address] 2020-07-14 2020-07-14 Telephone Blanca, 1.2.840.1 [id number] [id number] Methodi 00:00:00 00:00:[address] 3.430.2.7 Hospit a .3.908597 l .8 2020-07-14 2020-07-14 Telephone Ron, 1.2.840.1 [id number] Methodi 00:00:00 00:00:[address] 3.430.2.7 Hospit a .3.729333 l .8 2020-07-14 2020-07-14 Travel 1.2.840.1 1.2.562.761 7089 939798 Methodi 00:00:00 00:00:[address] 3.430.2.7 0.2.7.3.698 Ho spita .3.243613 084.8 l .8 2020-07-08 2020-07-08 Telephone Ron, 1.2.840.1 [id number] Methodi 00:00:00 00:00:[address] 3.430.2.7 Hospit a .3.612656 l .8 2020-07-08 2020-07-08 Telephone Ron, 1.2.840.1 [id number] Methodi 00:00:00 00:00:[address] 3.430.2.7 Hospit a .3.351450 l .8 2020-07-08 2020-07-08 Telephone Ron, 1.2.840.1 [id number] Methodi 00:00:00 00:00:[address] 3.430.2.7 Hospit a .3.940208 l .8 2020-07-06 2020-07-06 Telephone Nadir 1.2.840.1 [id number] Methodi 00:00:00 00:00:00 , [place] [address] [place] 3.430.2.7 Hosp bi .3.233921 l .8 2020-07-06 2020-07-06 Telephone Nadir 1.2.840.1 [id number] Methodi 00:00:00 00:00:00 , [place] [address] [place] 3.430.2.7 Hosp bi .3.252222 l .8 2020-07-05 2020-07-05 Telephone Ron, 1.2.840.1 [id number] Methodi 00:00:00 00:00:[address] 3.430.2.7 Hospit a .3.857633 l .8 2020-06-28 2020-06-28 Telephone Ron, 1.2.840.1 [id number] Methodi 00:00:00 00:00:[address] 3.430.2.7 Hospit a .3.164978 l .8 2020-06-28 2020-06-28 Travel 1.2.840.1 1.2.408.057 9134 022145 Methodi 00:00:00 00:00:[address] 3.430.2.7 0.2.7.3.698 Ho spita .3.801613 084.8 l .8 2020-06-28 2020-06-28 Orders Ron, 1.2.840.1 [id number] 21 [id number] Methodi 00:00:00 00:00:00 Only Amritha 40703.1.[address] 3.430.2.7 Hospit a .3.170748 l .8 2020-06-25 2020-06-25 Documentat Provider, 1.2.840.1 [id number] 2 [id number] Methodi 00:00:00 00:00:00 ion Unknown 49762.1.[address] 3.430.2.7 Hospit a .3.868687 l .8 2020-06-24 2020-06-24 Orders Dequanshericharlie, 1.2.840.1 [id number] 21 [id number] Methodi 00:00:00 00:00:00 Only Amritha 76521.1.[address] 3.430.2.7 Hospit a .3.830503 l .8 2020-06-23 2020-06-23 [facility] 1.2.840.1 [id number] 2 [id number] Methodi 16:38:15 23:59:00 [place] [address].1.1 [address] [place] 3.430.2.7 Hosp bi .3.122062 l .8 2020-06-23 2020-06-23 [facility] 1.2.840.1 [id number] 2 [id number] Methodi 16:05:09 16:37:00 Encounter , Gm 0[address]70.1.1 [address] [place] 3.430.2.7 Hosp bi .3.854973 l .8 2020-06-23 2020-06-23 [facility] 1.2.840.1 [id number] 21 [id number] Methodi 13:33:47 16:15:51 [place] [address] [place] 3.430.2.7 Hosp bi .3.528431 l .8 2020-06-23 2020-06-23 Telephone Ron, 1.2.840.1 [id number] Methodi 00:00:00 00:00:[address] 3.430.2.7 Hospit a .3.444737 l .8 2020-06-23 2020-06-23 Travel 1.2.840.1 1.2.188.642 5131 [id number] Methodi 00:00:00 00:00:[address] 3.430.2.7 0.2.7.3.698 Ho spita .3.720573 084.8 l .8 2020-06-21 2020-06-21 [facility] 1.2.840.114 886286 [address] [employer] 00:00:00 00:00:00 Anna Marie Leslie 350.1.13.10 [facility] [place] [place] [phone] [facility] 2020-06-21 2020-06-21 [facility] 1.2.840.114 [id number] 00:00:00 00:00:00 Anna Marie Leslie 350.1.13.10 [place] 4.2.7.2.686 Professio [phone] [address] 2020-06-18 2020-06-18 Telephone Nadir 1.2.840.1 [id number] Methodi 00:00:00 00:00:00 , [place]m [address]111.1.[address] [place] 3.430.2.7 Hosp bi .3.779032 l .8 2020-06-18 2020-06-18 Telephone Nadir 1.2.840.1 [id number] Methodi 00:00:00 00:00:00 , Gm [address]898.1.[address] [place] 3.430.2.7 Hosp bi .3.180033 l .8 2020-06-17 2020-06-17 Telephone Nadir 1.2.840.1 [id number] Methodi 00:00:00 00:00:00 , [place] [address].1.[address] [place] 3.430.2.7 Hosp bi .3.053925 l .8 2020-06-17 2020-06-17 Telephone Curtis, 1.2.840.1 [id number] Methodi 00:00:00 00:00:[address] 3.430.2.7 Hospit a .3.435047 l .8 2020-06-17 2020-06-17 Telephone Ron, 1.2.840.1 [id number] Methodi 00:00:00 00:00:[address] 3.430.2.7 Hospit a .3.708915 l .8 2020-06-15 2020-06-15 Telephone Evangelist, 1.2.840.1 [id number] Methodi 00:00:00 00:00:[address] 3.430.2.7 Hospit a .3.124742 l .8 2020-06-11 2020-06-11 Telephone Evangelist, 1.2.840.1 [id number] 2099 [id number] Methodi 00:00:00 00:00:[address] 3.430.2.7 Hospit a .3.440521 l .8 2020-06-09 2020-06-09 [facility] 1.2.840.114 [id number] Univers 00:00:00 00:00:00 Outreach [facility] 350.1.13.10 i ty of [place] [phone] Wi dical [address] 2020-06-09 2020-06-09 Patient Tremaine [facility] 1.2.840.114 [id number] 96 00:00:00 00:00:00 Outreach Jeremy PRIMARY 350.1.13.10 [place] 4.2.7.2.686 PAVILLION [phone] 388 2020-06-07 2020-06-07 Telephone Nadir 1.2.840.1 [id number] Methodi 00:00:00 00:00:00 , [place]m [address]38.1.[address] [facility] 3.430.2.7 Hosp bi .3.773633 l .8 2020-05-31 2020-05-31 Telephone Jack, 1.2.840.1 [id number] 2100 [id number] Methodi 00:00:00 00:00:[address] 3.430.2.7 Hospit a .3.158159 l .8 2020-05-20 2020-05-20 Orders Doctor JEREMY Nicole2.840.114 [id number] Univers 00:00:00 00:00:00 Only Unassigned, LUCIAN 350.1.13.10 ity of Tab HOSPITAL 4.2.7.2.686 Sharif as [phone] [address] 2020-05-20 2020-05-20 Orders Doctor JEREMY Nicole2.840.114 [id number] 00:00:00 00:00:00 Only Unassigned, LUCIAN 350.1.13.10 [facility] [phone] 009 2020-04-28 2020-04-28 Outpatient EL LETSOU, SLEH SLE [id number] SLE 00:00:00 00:00:00 [place] 2020-03-22 2020-03-22 Outpatient LETSOU, SLEH SLEH [id number] [facility]H 00:00:00 00:00:00 [place] 2020-03-22 2020-03-22 Outpatient EL LETSOU, SLEH SLEH [id number] [facility]H 00:00:00 00:00:00 [place] 2020-03-03 2020-03-03 Outpatient EL LETSOU, SLEH SLEH [id number] SLE 00:00:00 00:00:00 [place] 2020-02-17 2020-02-17 Outpatient [facility] [id number] [place] [address] 00:00:00 00:00:[address] 2019-12-25 2019-12-25 Orders Doctor JEREMY Nicole2.840.114 [id number] Univers 00:00:00 00:00:00 Only Unassigned, LUCIAN 350.1.13.10 ity of Tab HOSPITAL 4.2.7.2.686 Sharif as [phone] [facility] [address] [place] 2019-12-25 2019-12-25 Orders Doctor JEREMY Nicole2.840.114 [id number] 00:00:00 00:00:00 Only Unassigned, LUCIAN 350.1.13.10 Tab HOSPITAL 4.2.7.2.686 [id number] [facility] 2019-08-04 2019-08-04 Refill [facility] 1.2.840.114 [id number] Univers 00:00:00 00:00:00 Anna Marie [place] 350.1.13.10 ity [place].2.[place] [phone] Wi dic[address] 2019-08-04 2019-08-04 Refill [facility] 1.2.840.114 [id number] 42 00:00:00 00:00:00 Qiaryne [place] 350.1.13.10 [place] 4.2.7.2.686 Professio [phone] [address] 2019-07-29 2019-07-29 Refill [facility] 1.2.840.114 [id number] Univers 00:00:00 00:00:00 Qiaryne [place] 350.1.13.10 ity of [place]2.[place] [phone] Wi dic[address] 2019-07-29 2019-07-[facility].840.114 [id number] 00:00:00 00:00:00 Anna Marie [place] 350.1.13.10 [place] 4.2.7.2.686 Professio [phone] [address] 2019-06-26 2019-06-26 Orders Doctor JEREMY 1.2.840.114 [id number] Univers 00:00:00 00:00:00 Only Unassigned, LUCIAN 350.1.13.10 ity of Tab HOSPITAL 4.2.7.2.686 Sharif as [phone] [address] 2019-06-26 2019-06-26 Orders Doctor LUNA 1.2.840.114 [id number] 00:00:00 00:00:00 Only Unassigned, LUCIAN 350.1.13.10 Tab HOSPITAL 4.2.7.2.686 [id number] [facility] 2019-05-27 2019-05-27 Office [facility] 1.2.840.114 [id number] Univers 09:24:52 10:34:57 Visit Anna Marie Aguilaton 350.1.13.10 ity [place].2.[place] [phone] [address] 2019-05-27 2019-05-27 Office [facility] 1.2.840.114 [id number] 09:24:52 10:34:57 Visit Anna Marie Aguilaton 350.1.13.10 [place] 4.2.7.2.686 Professio [phone] [address] 2019-05-27 2019-05-27 [facility] [id number] Univers 09:20:00 09:20:00 ANNA MARIE ity o f [facility] 2019-05-14 2019-05-14 [facility] 1.2.840.114 [id number] Univers 00:00:00 00:00:00 Anna Marie Leslie 350.1.13.10 ity [place].2.[place] [phone] [address] 2019-05-07 2019-05-07 Refill [facility] 1.2.840.114 [id number] Univers 00:00:00 00:00:00 Anna Marie Aguilaton 350.1.13.10 ity [place].2.[place] [phone] [address] 2019-04-16 2019-04-16 Patient Doctor [facility] 1.2.840.114 [id number] Univers 00:00:00 00:00:00 Secure Msg Unassigned, [place] 350.1.13.10 ity of Tab [place] 4[place]2.7.2.[place] [phone] [address] 2019-04-13 2019-04-13 [facility] 1.2.840.114 [id number] Univers 00:00:00 00:00:00 Anna Marie Aguilaton 350.1.13.10 ity [place].2.[place] [phone] [address] 2018-12-17 2018-12-17 Telephone [facility] 1.2.143.264 [id number] Univers 00:00:00 00:00:00 Qianuviajun [place] 350.1.13.10 ity of [place].2.[place] [phone] [address] 2018-12-13 2018-12-13 [facility] 1.2.467.027 [id number] Univers 00:00:00 00:00:00 Qianuviajun [place] 350.1.13.10 ity of [place] 4[place].2.[place] [phone] [address] 2018-12-12 2018-12-12 Refill [facility] 1.2.840.114 [id number] [facility] 00:00:00 00:00:00 Qianuviajun [place] 350.1.13.10 ity [place].2.[place] [phone] [address] 2018-12-05 2018-12-05 [facility] 1.2.504.196 [id number] Univers 00:00:00 00:00:00 Anna Marie Aguilaton 350.1.13.10 ity [place] 4[place].2.[place] [phone] [address] 2018-12-05 2018-12-05 [facility] 1.2.987.107 [id number] Univers 00:00:00 00:00:00 Qianuviajun [place] 350.1.13.10 ity of [place] 4[place].2.[place] [phone] [address] 2018-12-04 2018-12-04 Sort Line Worker 1, Adc Lab [facility] 1.2.840.114 [id number] Univers 08:21:22 08:36:22 Visit Anna Marie Castellon 350.1.13.10 ity of [place].2.[place] [phone] [facility] [address] 2018-12-04 2018-12-04 Orders Doctor JEREMY 1.2.840.114 [id number] Univers 00:00:00 00:00:00 Only Unassigned, LUCIAN 350.1.13.10 ity of Tab HOSPITAL 4.2.7.2.686 Sharif as [phone] [facility] [address] 2018-11-15 2018-11-15 Telephone Ravinder, [facility] 1.2.577.288 [id number] Univers 00:00:00 00:00:00 Anna Marie Leslie 350.1.13.10 ity of [place].2.[place] [phone] Wi dical nal [address] Building Results Test Description Test Time Test Comments Results Result Comments Source POCT GLUCOSE (AUTOMATED) 2022-10-27 15:27:32 Test Item Value Reference Range Interpretation Comme [facility] POCT GLU (test code = 5415674965) 99 mg/dL 70-110 Lab Interpretation (test code = 66202-1) [facility] [id number] 20:51:00 Test Item Value Reference Range Interpretation Comments Treatment Site (test code Vulva Boost CD = 5130) Course Number (test code = 1 5131) Prescribed Fractional Dose 200 cGray (test code = 5132) Prescribed Total Dose 600 cGray (test code = 5133) Actual Fractions Delivered 3 (test code = 5134) Prescription Pattern IMRT QA, full Comment (test code = 5135) bladder, see note Actual Session Delivered 200 cGray Dose (test code = 5136) Actual Total Dose (test 600 cGray code = 5137) Prescribed Technique (test VMAT code = 5138) Elapsed Days (test code = 4 5143) Start Date (test code = 07/13/2022 5144) Last Date (test code = 07/17/2022 5145) Prescribed Number of 3 Fractions (test code = 5146) [facility] [id number] 20:22:00 Test Item Value Reference Range Interpretation Comments Treatment Site (test code Vulva Boost CD = 5130) Course Number (test code = 1 5131) Prescribed Fractional Dose 200 cGray (test code = 5132) Prescribed Total Dose 600 cGray (test code = 5133) Actual Fractions Delivered 2 (test code = 5134) Prescription Pattern IMRT QA, full Comment (test code = 5135) bladder, see note Actual Session Delivered 200 cGray Dose (test code = 5136) Actual Total Dose (test 400 cGray code = 5137) Prescribed Technique (test VMAT code = 5138) Elapsed Days (test code = 1 5143) Start Date (test code = 07/13/2022 5144) Last Date (test code = 07/14/2022 5145) Prescribed Number of 3 Fractions (test code = 5146) [facility] ONC MSQ TREATMENT [id number] 21:04:00 Test Item Value Reference Range Interpretation Comments Treatment Site (test code Vulva Boost CD = 5130) Course Number (test code = 1 5131) Prescribed Fractional Dose 200 cGray (test code = 5132) Prescribed Total Dose 600 cGray (test code = 5133) Actual Fractions Delivered 1 (test code = 5134) Prescription Pattern IMRT QA, full Comment (test code = 5135) bladder, see note Actual Session Delivered 200 cGray Dose (test code = 5136) Actual Total Dose (test 200 cGray code = 5137) Prescribed Technique (test VMAT code = 5138) Elapsed Days (test code = 0 5143) Start Date (test code = 07/13/2022 5144) Last Date (test code = 07/13/2022 5145) Prescribed Number of 3 Fractions (test code = 5146) [facility] ONC MSQ TREATMENT [id number] 21:01:00 Test Item Value Reference Range Interpretation Comments Treatment Site (test code Vulva Boost = 5130) Course Number (test code = 1 5131) Prescribed Fractional Dose 200 cGray (test code = 5132) Prescribed Total Dose 1000 cGray (test code = 5133) Actual Fractions Delivered 5 (test code = 5134) Prescription Pattern IMRT QA, full Comment (test code = 5135) bladder, see note Actual Session Delivered 200 cGray Dose (test code = 5136) Actual Total Dose (test 1000 cGray code = 5137) Prescribed Technique (test VMAT code = 5138) Elapsed Days (test code = 514) Start Date (test code = 06/27/2022 5144) Last Date (test code = 07/12/2022 5145) Prescribed Number of 5 Fractions (test code = 5146) [facility] [id number] 21:17:00 Test Item Value Reference Range Interpretation Comments Treatment Site (test code Vulva Boost = 5130) Course Number (test code = 1 5131) Prescribed Fractional Dose 200 cGray (test code = 5132) Prescribed Total Dose 1000 cGray (test code = 5133) Actual Fractions Delivered 3 (test code = 5134) Prescription Pattern IMRT QA, full Comment (test code = 5135) bladder, see note Actual Session Delivered 200 cGray Dose (test code = 5136) Actual Total Dose (test 600 cGray code = 5137) Prescribed Technique (test VMAT code = 5138) Elapsed Days (test code = 5142) Start Date (test code = 06/27/2022 514) Last Date (test code = 07/10/2022 5145) Prescribed Number of 5 Fractions (test code = 5146) [facility] ONC MSQ TREATMENT [id number] 19:26:00 Test Item Value Reference Range Interpretation Comments Treatment Site (test code Vulva Boost = 5130) Course Number (test code = 1 5131) Prescribed Fractional Dose 200 cGray (test code = 5132) Prescribed Total Dose 1000 cGray (test code = 5133) Actual Fractions Delivered 2 (test code = 5134) Prescription Pattern IMRT QA, full Comment (test code = 5135) bladder, see note Actual Session Delivered 200 cGray Dose (test code = 5136) Actual Total Dose (test 400 cGray code = 5137) Prescribed Technique (test VMAT code = 5138) Elapsed Days (test code = 5143) Start Date (test code = 06/27/2022 5144) Last Date (test code = 06/28/2022 5145) Prescribed Number of 5 Fractions (test code = 5146) [facility] [id number] 19:28:00 Test Item Value Reference Range Interpretation Comments Treatment Site (test code Vulva Boost = 5130) Course Number (test code = 1 31) Prescribed Fractional Dose 200 cGray (test code = 5132) Prescribed Total Dose 1000 cGray (test code = 5133) Actual Fractions Delivered 1 (test code = 5134) Prescription Pattern IMRT QA, full Comment (test code = 5135) bladder, see note Actual Session Delivered 200 cGray Dose (test code = 5136) Actual Total Dose (test 200 cGray code = 5137) Prescribed Technique (test VMAT code = 5138) Elapsed Days (test code = 0 5143) Start Date (test code = 06/27/2022 5144) Last Date (test code = 06/27/2022 5145) Prescribed Number of 5 Fractions (test code = 5146) [facility] ONC MSQ TREATMENT [id number] 19:47:00 Test Item Value Reference Range Interpretation Comments Treatment Site (test code Pelvis = 5130) Course Number (test code = 1 31) Prescribed Fractional Dose 200 cGray (test code = 5132) Prescribed Total Dose 5000 cGray (test code = 5133) Actual Fractions Delivered 25 (test code = 5134) Prescription Pattern IMRT QA, full Comment (test code = 5135) bladder, see note Actual Session Delivered 200 cGray Dose (test code = 5136) Actual Total Dose (test 5000 cGray code = 5137) Prescribed Technique (test VMAT code = 5138) Elapsed Days (test code = 35 5143) Start Date (test code = 05/22/2022 5144) Last Date (test code = 06/26/2022 5145) Prescribed Number of 25 Fractions (test code = 5146) [facility] ONC MSQ TREATMENT [id number] 21:10:00 Test Item Value Reference Range Interpretation Comments Treatment Site (test code Pelvis = 5130) Course Number (test code = 1 31) Prescribed Fractional Dose 200 cGray (test code = 5132) Prescribed Total Dose 5000 cGray (test code = 5133) Actual Fractions Delivered 23 (test code = 5134) Prescription Pattern IMRT QA, full Comment (test code = 5135) bladder, see note Actual Session Delivered 200 cGray Dose (test code = 5136) Actual Total Dose (test 4600 cGray code = 5137) Prescribed Technique (test VMAT code = 5138) Elapsed Days (test code = 5143) Start Date (test code = 05/22/2022 514) Last Date (test code = 06/22/2022 514) Prescribed Number of 25 Fractions (test code = 5146) [facility] [id number] 15:47:00 Test Item Value Reference Range Interpretation Comments Treatment Site (test code Pelvis = 5130) Course Number (test code = 1 5131) Prescribed Fractional Dose 200 cGray (test code = 5132) Prescribed Total Dose 5000 cGray (test code = 5133) Actual Fractions Delivered 22 (test code = 5134) Prescription Pattern IMRT QA, full Comment (test code = 5135) bladder, see note Actual Session Delivered 200 cGray Dose (test code = 5136) Actual Total Dose (test 4400 cGray code = 5137) Prescribed Technique (test VMAT code = 5138) Elapsed Days (test code = 5143) Start Date (test code = 05/22/2022 514) Last Date (test code = 06/20/2022 514) Prescribed Number of 25 Fractions (test code = 5146) [facility] ONC MSQ TREATMENT [id number] 20:58:00 Test Item Value Reference Range Interpretation Comments Treatment Site (test code Pelvis = 5130) Course Number (test code = 1 5131) Prescribed Fractional Dose 200 cGray (test code = 5132) Prescribed Total Dose 5000 cGray (test code = 5133) Actual Fractions Delivered 21 (test code = 5134) Prescription Pattern IMRT QA, full Comment (test code = 5135) bladder, see note Actual Session Delivered 200 cGray Dose (test code = 5136) Actual Total Dose (test 4200 cGray code = 5137) Prescribed Technique (test VMAT code = 5138) Elapsed Days (test code = 5143) Start Date (test code = 05/22/2022 514) Last Date (test code = 06/19/2022 514) Prescribed Number of 25 Fractions (test code = 5146) [facility] [id number] 19:42:00 Test Item Value Reference Range Interpretation Comments Treatment Site (test code Pelvis = 5130) Course Number (test code = 1 5131) Prescribed Fractional Dose 200 cGray (test code = 5132) Prescribed Total Dose 5000 cGray (test code = 5133) Actual Fractions Delivered 19 (test code = 5134) Prescription Pattern IMRT QA, full Comment (test code = 5135) bladder, see note Actual Session Delivered 200 cGray Dose (test code = 5136) Actual Total Dose (test 3800 cGray code = 5137) Prescribed Technique (test VMAT code = 5138) Elapsed Days (test code = 5143) Start Date (test code = 05/22/2022 5144) Last Date (test code = 06/15/2022 5145) Prescribed Number of 25 Fractions (test code = 5146) [facility] ONC MSQ TREATMENT [id number] 19:11:00 Test Item Value Reference Range Interpretation Comments Treatment Site (test code Pelvis = 5130) Course Number (test code = 1 31) Prescribed Fractional Dose 200 cGray (test code = 5132) Prescribed Total Dose 5000 cGray (test code = 5133) Actual Fractions Delivered 18 (test code = 5134) Prescription Pattern IMRT QA, full Comment (test code = 5135) bladder, see note Actual Session Delivered 200 cGray Dose (test code = 5136) Actual Total Dose (test 3600 cGray code = 5137) Prescribed Technique (test VMAT code = 5138) Elapsed Days (test code = 5143) Start Date (test code = 05/22/2022 5144) Last Date (test code = 06/14/2022 5145) Prescribed Number of 25 Fractions (test code = 5146) [facility] ONC MSQ TREATMENT [id number] 19:38:00 Test Item Value Reference Range Interpretation Comments Treatment Site (test code Pelvis = 5130) Course Number (test code = 1 5131) Prescribed Fractional Dose 200 cGray (test code = 5132) Prescribed Total Dose 5000 cGray (test code = 5133) Actual Fractions Delivered 17 (test code = 5134) Prescription Pattern IMRT QA, full Comment (test code = 5135) bladder, see note Actual Session Delivered 200 cGray Dose (test code = 5136) Actual Total Dose (test 3400 cGray code = 5137) Prescribed Technique (test VMAT code = 5138) Elapsed Days (test code = 5143) Start Date (test code = 05/22/2022 5144) Last Date (test code = 06/13/2022 514) Prescribed Number of 25 Fractions (test code = 5146) [facility] [id number] 21:20:00 Test Item Value Reference Range Interpretation Comments Treatment Site (test code Pelvis = 5130) Course Number (test code = 1 5131) Prescribed Fractional Dose 200 cGray (test code = 5132) Prescribed Total Dose 5000 cGray (test code = 5133) Actual Fractions Delivered 15 (test code = 5134) Prescription Pattern IMRT QA, full Comment (test code = 5135) bladder, see note Actual Session Delivered 200 cGray Dose (test code = 5136) Actual Total Dose (test 3000 cGray code = 5137) Prescribed Technique (test VMAT code = 5138) Elapsed Days (test code = 18 5143) Start Date (test code = 05/22/2022 5144) Last Date (test code = 06/09/2022 514) Prescribed Number of 25 Fractions (test code = 5146) [facility] ONC MSQ TREATMENT [id number] 21:02:00 Test Item Value Reference Range Interpretation Comments Treatment Site (test code Pelvis = 5130) Course Number (test code = 1 5131) Prescribed Fractional Dose 200 cGray (test code = 5132) Prescribed Total Dose 5000 cGray (test code = 5133) Actual Fractions Delivered 14 (test code = 5134) Prescription Pattern IMRT QA, full Comment (test code = 5135) bladder, see note Actual Session Delivered 200 cGray Dose (test code = 5136) Actual Total Dose (test 2800 cGray code = 5137) Prescribed Technique (test VMAT code = 5138) Elapsed Days (test code = 5143) Start Date (test code = 05/22/2022 5144) Last Date (test code = 06/08/2022 514) Prescribed Number of 25 Fractions (test code = 5146) [facility] ONC MSQ TREATMENT [id number] 20:53:00 Test Item Value Reference Range Interpretation Comments Treatment Site (test code Pelvis = 5130) Course Number (test code = 1 5131) Prescribed Fractional Dose 200 cGray (test code = 5132) Prescribed Total Dose 5000 cGray (test code = 5133) Actual Fractions Delivered 13 (test code = 5134) Prescription Pattern IMRT QA, full Comment (test code = 5135) bladder, see note Actual Session Delivered 200 cGray Dose (test code = 5136) Actual Total Dose (test 2600 cGray code = 5137) Prescribed Technique (test VMAT code = 5138) Elapsed Days (test code = 16 5143) Start Date (test code = 05/22/2022 5144) Last Date (test code = 06/07/2022 5145) Prescribed Number of 25 Fractions (test code = 5146) [facility] ONC MSQ TREATMENT [id number] 20:41:00 Test Item Value Reference Range Interpretation Comments Treatment Site (test code Pelvis = 5130) Course Number (test code = 1 31) Prescribed Fractional Dose 200 cGray (test code = 5132) Prescribed Total Dose 5000 cGray (test code = 5133) Actual Fractions Delivered 12 (test code = 5134) Prescription Pattern IMRT QA, full Comment (test code = 5135) bladder, see note Actual Session Delivered 200 cGray Dose (test code = 5136) Actual Total Dose (test 2400 cGray code = 5137) Prescribed Technique (test VMAT code = 5138) Elapsed Days (test code = 15 5143) Start Date (test code = 05/22/2022 5144) Last Date (test code = 06/06/2022 5145) Prescribed Number of 25 Fractions (test code = 5146) [facility] ONC MSQ TREATMENT [id number] 20:36:00 Test Item Value Reference Range Interpretation Comments Treatment Site (test code Pelvis = 5130) Course Number (test code = 1 31) Prescribed Fractional Dose 200 cGray (test code = 5132) Prescribed Total Dose 5000 cGray (test code = 5133) Actual Fractions Delivered 10 (test code = 5134) Prescription Pattern IMRT QA, full Comment (test code = 5135) bladder, see note Actual Session Delivered 200 cGray Dose (test code = 5136) Actual Total Dose (test 2000 cGray code = 5137) Prescribed Technique (test VMAT code = 5138) Elapsed Days (test code = 5143) Start Date (test code = 05/22/2022 5144) Last Date (test code = 06/02/2022 5145) Prescribed Number of 25 Fractions (test code = 5146) [facility] [id number] 20:11:00 Test Item Value Reference Range Interpretation Comments Treatment Site (test code Pelvis = 5130) Course Number (test code = 1 5131) Prescribed Fractional Dose 200 cGray (test code = 5132) Prescribed Total Dose 5000 cGray (test code = 5133) Actual Fractions Delivered 9 (test code = 5134) Prescription Pattern IMRT QA, full Comment (test code = 5135) bladder, see note Actual Session Delivered 200 cGray Dose (test code = 5136) Actual Total Dose (test 1800 cGray code = 5137) Prescribed Technique (test VMAT code = 5138) Elapsed Days (test code = 514) Start Date (test code = 05/22/2022 5144) Last Date (test code = 06/01/2022 514) Prescribed Number of 25 Fractions (test code = 5146) [facility] ONC MSQ TREATMENT [id number] 21:40:00 Test Item Value Reference Range Interpretation Comments Treatment Site (test code Pelvis = 5130) Course Number (test code = 1 5131) Prescribed Fractional Dose 200 cGray (test code = 5132) Prescribed Total Dose 5000 cGray (test code = 5133) Actual Fractions Delivered 8 (test code = 5134) Prescription Pattern IMRT QA, full Comment (test code = 5135) bladder, see note Actual Session Delivered 200 cGray Dose (test code = 5136) Actual Total Dose (test 1600 cGray code = 5137) Prescribed Technique (test VMAT code = 5138) Elapsed Days (test code = 5143) Start Date (test code = 05/22/2022 5144) Last Date (test code = 05/31/2022 514) Prescribed Number of 25 Fractions (test code = 5146) [facility] ONC MSQ TREATMENT [id number] 20:00:00 Test Item Value Reference Range Interpretation Comments Treatment Site (test code Pelvis = 5130) Course Number (test code = 1 5131) Prescribed Fractional Dose 200 cGray (test code = 5132) Prescribed Total Dose 5000 cGray (test code = 5133) Actual Fractions Delivered 7 (test code = 5134) Prescription Pattern IMRT QA, full Comment (test code = 5135) bladder, see note Actual Session Delivered 200 cGray Dose (test code = 5136) Actual Total Dose (test 1400 cGray code = 5137) Prescribed Technique (test VMAT code = 5138) Elapsed Days (test code = 8 5143) Start Date (test code = 05/22/2022 5144) Last Date (test code = 05/30/2022 5145) Prescribed Number of 25 Fractions (test code = 5146) [facility] ONC MSQ TREATMENT [id number] 20:28:00 Test Item Value Reference Range Interpretation Comments Treatment Site (test code Pelvis = 5130) Course Number (test code = 1 5131) Prescribed Fractional Dose 200 cGray (test code = 5132) Prescribed Total Dose 5000 cGray (test code = 5133) Actual Fractions Delivered 6 (test code = 5134) Prescription Pattern IMRT QA, full Comment (test code = 5135) bladder, see note Actual Session Delivered 200 cGray Dose (test code = 5136) Actual Total Dose (test 1200 cGray code = 5137) Prescribed Technique (test VMAT code = 5138) Elapsed Days (test code = 7 5143) Start Date (test code = 05/22/2022 5144) Last Date (test code = 05/29/2022 5145) Prescribed Number of 25 Fractions (test code = 5146) [facility] ONC MSQ TREATMENT [id number] 19:37:00 Test Item Value Reference Range Interpretation Comments Treatment Site (test code Pelvis = 5130) Course Number (test code = 1 5131) Prescribed Fractional Dose 200 cGray (test code = 5132) Prescribed Total Dose 5000 cGray (test code = 5133) Actual Fractions Delivered 5 (test code = 5134) Prescription Pattern IMRT QA, full Comment (test code = 5135) bladder, see note Actual Session Delivered 200 cGray Dose (test code = 5136) Actual Total Dose (test 1000 cGray code = 5137) Prescribed Technique (test VMAT code = 5138) Elapsed Days (test code = 4 5143) Start Date (test code = 05/22/2022 5144) Last Date (test code = 05/26/2022 5145) Prescribed Number of 25 Fractions (test code = 5146) [facility] ONC MSQ TREATMENT [id number] 19:47:00 Test Item Value Reference Range Interpretation Comments Treatment Site (test code Pelvis = 5130) Course Number (test code = 1 5131) Prescribed Fractional Dose 200 cGray (test code = 5132) Prescribed Total Dose 5000 cGray (test code = 5133) Actual Fractions Delivered 4 (test code = 5134) Prescription Pattern IMRT QA, full Comment (test code = 5135) bladder, see note Actual Session Delivered 200 cGray Dose (test code = 5136) Actual Total Dose (test 800 cGray code = 5137) Prescribed Technique (test VMAT code = 5138) Elapsed Days (test code = 3 5143) Start Date (test code = 05/22/2022 5144) Last Date (test code = 05/25/2022 5145) Prescribed Number of 25 Fractions (test code = 5146) [facility] ONC MSQ TREATMENT [id number] 20:58:00 Test Item Value Reference Range Interpretation Comments Treatment Site (test code Pelvis = 5130) Course Number (test code = 1 5131) Prescribed Fractional Dose 200 cGray (test code = 5132) Prescribed Total Dose 5000 cGray (test code = 5133) Actual Fractions Delivered 3 (test code = 5134) Prescription Pattern IMRT QA, full Comment (test code = 5135) bladder, see note Actual Session Delivered 200 cGray Dose (test code = 5136) Actual Total Dose (test 600 cGray code = 5137) Prescribed Technique (test VMAT code = 5138) Elapsed Days (test code = 2 5143) Start Date (test code = 05/22/2022 5144) Last Date (test code = 05/24/2022 5145) Prescribed Number of 25 Fractions (test code = 5146) [facility] [id number] 21:02:00 Test Item Value Reference Range Interpretation Comments Treatment Site (test code Pelvis = 5130) Course Number (test code = 1 5131) Prescribed Fractional Dose 200 cGray (test code = 5132) Prescribed Total Dose 5000 cGray (test code = 5133) Actual Fractions Delivered 2 (test code = 5134) Prescription Pattern IMRT QA, full Comment (test code = 5135) bladder, see note Actual Session Delivered 200 cGray Dose (test code = 5136) Actual Total Dose (test 400 cGray code = 5137) Prescribed Technique (test VMAT code = 5138) Elapsed Days (test code = 1 5143) Start Date (test code = 05/22/2022 5144) Last Date (test code = 05/23/2022 5145) Prescribed Number of 25 Fractions (test code = 5146) [facility] [id number] 21:33:00 Test Item Value Reference Range Interpretation Comments Treatment Site (test code Pelvis = 5130) Course Number (test code = 1 5131) Prescribed Fractional Dose 200 cGray (test code = 5132) Prescribed Total Dose 5000 cGray (test code = 5133) Actual Fractions Delivered 1 (test code = 5134) Prescription Pattern IMRT QA, full Comment (test code = 5135) bladder, see note Actual Session Delivered 200 cGray Dose (test code = 5136) Actual Total Dose (test 200 cGray code = 5137) Prescribed Technique (test VMAT code = 5138) Elapsed Days (test code = 0 5143) Start Date (test code = 05/22/2022 5144) Last Date (test code = 05/22/2022 5145) Prescribed Number of 25 Fractions (test code = 5146) [facility] 15:09:02 Test Item Value Reference Range Interpretation Comments POCT GLU (test code = 6414788001) 95 mg/dL 70-110 Lab Interpretation (test code = Normal 15846-9) [facility] [id number] 23:21:40 Test Item Value Reference Range Interpretation Comments Case number (test code = [id number]) Surgical pathology See link below for report (test code = PDF Lab Report [id number]) Result status (test code This is Final Report = [id number]) for [id number] [facility] 12 [id number] 19:52:02 Test Item Value Reference Range Interpretation Comments Ventricular rate (test code = 253) Atrial rate (test code = 255) WV interval (test code = 266) QRSD interval (test code = 260) QT interval (test code = 264) QTC interval (test code = 265) P axis 1 (test code = 267) QRS axis 1 (test code = 268) T wave axis (test code = 270) EKG impression (test Sinus code = 273) tachycardia-Nonspecific intraventricular block-Abnormal [facility] [id number] 08:17:00 Test Item Value Reference Range Interpretation Comments ABO grouping (test code = 883-9) A Rh type (test code = 63685-3) POS Antibody screen (gel) (test code = NEG 890-4) [facility] [id number] 16:58:33 Test Item Value Reference Range Interpretation Comments Urine culture (test SEE COMMENT Bacteriu jessica screen code = 4513302) negative. [facility] [id number] 21:22:00 Test Item Value Reference Range Interpretation Comments Product name (test code Red Blood Cells -1, = 25) Leukored Unit number (test code = [id number]) Product code (test code C0723P40 = 3092) Dispense status (test Returned to not code = 24) transfused Blood expiration date (test code = 302) Blood type code (test code = 308) Blood type (test code = A POSITIVE 1314) Compatibility (test code Compatible = 6400) [facility] HospitalArterial blood gas, [id number] 20:12:22 Test Item Value Reference Range Interpretation Comments pH, arterial (test code 7.35-7.45 L = 2744-1) pCO2, arterial (test See_Comment H [Autom ated message] code = 2019-8) The system [facility] generated this result transmitted ref erence range: 35 - 45 mmHg. The reference r ekaterina was not used to interpret this result as normal/abnor mal. pO2, arterial (test code See_Comment H [A utomated message] = 2703-7) The system [employer] generated this result transmitted ref erence range: 80 - 90 mmHg. The reference r ekaterina was not used to interpret this result as normal/abnor mal. Temperature, Celsius Degrees C (test code = 8310-5) O2 saturation, arterial 99 % 95-100 (test code = 2708-6) pH, arterial corrected (test code = 36831-9) pCO2, arterial corrected mmHg (test code = 08637-9) pO2, arterial corrected mmHg (test code = 10255-2) Base excess, arterial See_Comment L [Auto mated message] (test code = 1925-7) The [facility] tem which generated this result transmitted ref erence range: -2 - 2 m Eq/L. The reference r ekaterina was not used to interpret this result as normal/abnor mal. Lab Interpretation (test Abnormal code = 18309-9) [facility]Gl[facility], [id number] 20:12:22 Test Item Value Reference Range Interpretation Comments Glucose, syringe (test code = 150 mg/dL 65-99 H 2345-7) Lab Interpretation (test code = Abnormal 46474-6) [facility]Hemoglobin, [id number] 20:12:22 Test Item Value Reference Range Interpretation Comments Hemoglobin, syringe (test code = 11.2 g/dL 12.0-16.0 L 718-7) Lab Interpretation (test code = Abnormal 92608-7) [facility] HospitalPotassium, [id number] 20:12:22 Test Item Value Reference Range Interpretation Comments Potassium, syringe See_Comment [Automat ed message] The (test code = 2007) system wh ich generated this result tra nsmitted reference range : 3.5 - 5.0 mEq/L. The refe rence range was not used to interpret this result as normal/abnormal . [facility], [id number] 20:12:22 Test Item Value Reference Range Interpretation Comments Sodium, syringe (test See_Comment [Auto mated message] The code = 2947-0) system which generated this result tra nsmitted reference range : 135 - 148 mEq/L. The refe rence range was not used to interpret this result as normal/abnormal . [facility] HospitalLactic acid, [id number] 16:09:28 Test Item Value Reference Range Interpretation Comments Lactic acid, syringe (test code = 0.9 mmol/L 0.5-2.2 30213-2) [facility] Pre/Post [id number] 20:27:38 Test Item Value Reference Range Interpretation [...] available-Electronicall y Signed By Sammy Zuniga MD ([id number]) on 07/14/2020 3:27:37 PM [facility] CenterGjakahzjKTKW-TdX-5 (COVID-19) RNA [Presence] in Respiratory specimen by ANIBAL with probe [id number] 19:06:02 Test Item Value Reference Range Interpretation Comments SARS-CoV-2 (COVID-19) RNA Not detected Not-Detected [Presence] in Respiratory specimen by ANIBAL with probe detection (test code = 87637-4) [facility] WESTSpirometry, diffusion, lung [id number] 16:16:00 Test Item Value Reference Range Interpretation [...] (test code = See_Comment [Auto mated message] 4237) The system [employer] generated this result transmitted ref erence range: 16.82 - 29.82 ml/(min*mmHg). The reference range was not used to interpr et this result as normal/abnormal . DLCOc Pre (test code = See_Comment [Aut omated message] 9049) The system [employer] generated this result transmitted ref erence range: 16.82 - 29.82 ml/(min*mmHg). The reference range was not used to interpr et this result as normal/abnormal . DL/VA Pre (test code = See_Comment [Aut omated message] 5433) The system [employer] generated this result transmitted ref erence range: 2.85 - 5 .48 ml/(min*mmHg*L) . The reference range was not used to interpr et this result as normal/abnormal . KCOc SB Pre (test code See_Comment [Aut omated message] = 5535) The system [employer] generated this result transmitted ref erence range: [...] (test code = See_Comment [Autom ated message] 2540) The system [employer] generated this result transmitted ref erence range: 3.06 - 3 .06 cmH2O*s/L. The reference range was not used to interpr et this result as normal/abnormal . R0.5IN Pre (test code See_Comment [Auto mated message] = 9990) The system [employer] generated this result transmitted ref erence range: 3.06 - 3 .06 cmH2O*s/L. The reference range was not used to interpr et this result as normal/abnormal . sR0.5IN Pre (test code cmH2O*s = 5521) sGaw Predicted (test See_Comment [Autom ated message] code = 5528) The system [employer] generated this result transmitted ref erence range: [...] 67 % Predicted (test code = 5445) [facility] Date/Time Note Provider Source 2022-10-31 Formatting of this note might be differe nt from the original. Brandi Kuo RN [facility] 11:02:36-00:00 I spoke with . Inf ormed him we should be calling around 1-1:30 for tele-health visit. Mr. Lorenzo confirmed he should be home around that time. I let him know if he is not home by that time we can always include him in a 3 way call. Informed him, per Elinor GIFFORD, results were reviewed MRI and it did state there was movement, but report and scans are still able to be read to determine plan of care. Mr. Lorenzo acknowledged and verbalized un derstanding. T 2022-10-31 Formatting of this note might be differe nt from the original. Shameka Cabral [facility] 10:10:25-00:00 The patient Tian Leger art called in would like to speak with Brandi, about tel health visit. He has a few concerns about having results giving over the phone as well he would like to confirm the time so that he can be home for the visit. Electronically signed by Shameka Cabral at 0 10/31/2022 10:12 AM T 2022-10-30 Formatting of this note might be differe nt from the original. Brandi Kuo RN [facility] 15:34:38-00:00 I spoke with . Inf ormed her I spoke with Penny GIFFORD and after reviewing chart PET and MRI were completed. Per Penny, she is good to see us tomorrow as scheduled. Pt acknowledged and verbalized understanding. T 2022-10-30 Formatting of this note might be differe nt from the original. Eyal Garcia [facility] 13:46:26-00:00 Ms. Lorenzo was unable to co mplete the test that were order because she could not stay in the machine. She has an appointment tomorrow with Dr. Fay and would like to know if she needs to come. Please give her a call . Ty Electronically signed by Eyal Garcia at 10/02 1:48 PM T 2022-10-27 Formatting of this note might be differe nt from the original. Brandi Kuo RN [facility] 15:41:54-00:00 I spoke with Ms. Lorenzo. In troduced myself as Brandi BLAND for Dr. Fay. She states when she went to her appointment for her MRI and PET they administered a sedative and it made her groggy and could not keep still described it as "restless leg." They were able to complete the MRI, but not the PET. I informed her she may need to reschedule her PET appointment. Orders will need to be reordered. Will share with the team. I let her know I will get back to her Sunday to update her on what the team suggests since her follow up appointment with us is on 10/31. Pt acknowledged and verbalized understanding. 2022-10-27 Formatting of this note might be differe nt from the original. Brady Javier [facility] 15:15:17-00:00 Pt calling due to questions about pet scan and appt on Sunday. Please give her a call. Thank you! Electronically signed by Brady Javier at 10/01 3:16 PM CDT
[2022-11-02 23:17] LABS: Hematocrit 35.4 % (36.0-45.0); MCV 87.7 fL (80-100); MPV 7.9 fL (7.6-11.3); Platelets 215 thou/uL (152-406); RBC Red Blood Cell Count 4.04 M/uL (3.86-4.86)
[2022-11-02 23:21] LABS: Protime INR 1.25
[2022-11-02 23:36] LABS: Albumin 3.5 g/dL (3.4-5.0); Bilirubin Direct 0.1 mg/dL (0-0.2); Bilirubin Indirect, Calculated 0.2 mg/dL (0.2-0.8); Bilirubin Total 0.3 mg/dL (0.2-1.0); Potassium 3.9 mEq/L (3.5-5.1); Protein, Total 7.7 g/dL (6.4-8.2); Troponin High Sensitivity 7.2 pg/mL (<58.9)
[2022-11-03] MEDS ORDERED: FENTANYL CITR 100 MCG/2 ML ONE (00:04)
--- NOTE | 2022-11-03 00:58 | ER ---
Nurse's Notes [facility] Name: Celsa Lorenzo Age: 67 yrs Sex: Female : 1955 Arrival Date: 11/02/2022 Time: 22:26 Bed 15 Private MD: Lasha Fall Diagnosis: Syncope Near;Unspecified systolic (congestive) heart failure;Nondisplaced proximal fibular fracture Presentation: 11/02 22:58 Chief complaint: Patient states: dizziness, syncope, convulsion for approximately 3 pf1 seconds, S/P fall, witnessed by for convulsion,onset 2129. Patient stated while standing in the kitchen she became dizzy, put head onto counter then passed out, landed onto floor. Patient C/O left lower extremity pain, right shoulder pain and right rib cage pain and right upper back pain of 6. Coronavirus screen: Vaccine status: Patient reports being unvaccinated. Client denies travel out of the [place] in the last 14 days. At this time, the client does not indicate any symptoms associated with coronavirus-19. Ebola Screen: Patient negative for fever greater than or equal to 101.5 degrees Fahrenheit, and additional compatible Ebola Virus Disease symptoms. Initial Sepsis Screen: Does the patient meet any 2 criteria? No. Patient's initial sepsis screen is negative. Does the patient have a suspected source of infection? No. Patient's initial sepsis screen is negative. Risk Assessment: Do you want to hurt yourself or someone else? Patient reports no desire to harm self or others. 22:58 Method Of Arrival: Wheelchair pf1 22:58 Acuity: MAXIMO 3 pf1 23:41 Onset of symptoms was November 02, 2022. as6 Historical: - Allergies: 23:04 Betadine; pf1 23:04 Iodine; Topical only; pf1 - Home Meds: 23:48 Eliquis 5 mg Oral tab 1 tab 2 times per day [Active]; Lasix 40 mg Oral tab 20mg at as6 night [Active]; Zoloft 50 mg Oral tab 1 tab once daily [Active]; Wellbutrin 150mg Oral 1 tab daily [Active]; metoprolol PO BID [Active]; Xeljanz Oral [Active]; metoprolol tartrate 100 mg Oral tablet 2 times per day [Active]; Protonix 40 mg Oral tablet, delayed release (enteric coated) every morning [Active]; - PMHx: 23:04 Atrial Fib; cardioversion; Vulva CA -chemo and radiation; depression; pf1 - PSHx: 23:04 mitral and tricupid valve replacement.; Cholecystectomy; Tonsillectomy; Appendectomy; pf1 section; tubal ligation; - Immunization history:: Adult Immunizations not up to date, Client reports having NOT received the Covid vaccine. Last tetanus immunization: > 10 years ago Flu vaccine is not up to date. - Social history:: Smoking status: Patient/guardian denies using tobacco, the patient reports quitting approximately 2 years ago, Patient/guardian denies using alcohol, street drugs. Screenin:43 [facility] ED Fall Risk Assessment (Adult) Score/Fall Risk Level. Abuse screen: Denies as6 threats or abuse. Denies injuries from another. Nutritional screening: No deficits noted. Tuberculosis screening: No symptoms or risk factors identified. Assessment: 23:00 General: Appears in no apparent distress. Behavior is calm, cooperative. Pain: as6 Complains of pain in head and left arm and left leg and lateral aspect of left knee. Neuro: Level of Consciousness is awake, alert, obeys commands, Oriented to person, place, time, situation, Reports headache. Cardiovascular: Capillary refill < 3 seconds Patient's skin is warm and dry. Respiratory: Respiratory effort is even, unlabored, Respiratory pattern is regular, symmetrical. Derm: Skin is intact, is healthy with good turgor. Vital Signs: 22:58 BP 140 / 71; Pulse 61; Resp 18; Temp 98; Pulse Ox 96% on R/A; Weight 113.4 kg; Height 5 pf1 ft. 9 in. ; Pain /; 11/03 00:06 BP 118 / 49; Pulse 57; Resp 13 S; Pulse Ox 96% on R/A; jw7 01:03 BP 124 / 66; Pulse 61; Resp 21 S; Pulse Ox 94% on R/A; jw7 02:48 BP 146 / 69; Pulse 60; Resp 16 S; Pulse Ox 97% on R/A; jw7 11/02 22:58 Body Mass Index 36.92 (113.40 kg, 175.26 cm) pf1 11/02 22:58 Pain Scale: Adult pf1 ED Course: 11/02 22:28 Patient arrived in ED. am2 22:28 Lasha Fall MD is Private Physician. am2 22:30 Lina Campos FNP-C is [facility]. snw 22:30 Jerald Perdue MD is Attending Physician. snw 23:00 Inserted saline lock: 20 gauge in right forearm, using aseptic technique. Blood as6 collected. 23:04 Triage completed. pf1 23:26 CT Head C Spine In Process Unspecified. EDMS 23:41 Rey Whaley, RN is Primary Nurse. as6 23:41 Arm band placed on. as6 23:43 Bed in low position. Call light in reach. Side rails up X2. Client placed on continuous as6 cardiac and pulse oximetry monitoring. NIBP monitoring applied. Warm blanket given. 11/03 00:25 XRAY Chest (1 view) In Process Unspecified. EDMS 00:25 Knee Left 3 View XRAY In Process Unspecified. EDMS 00:57 Lasha Fall MD is Hospitalizing Provider. snw 01:03 Troponin High Sensitivity Sent. jw7 01:04 Provided Education on: need for admit. jw7 01:04 No provider procedures requiring assistance completed. Patient admitted, IV remains in jw7 place. 01:39 Knee immobilizer applied on left knee. jw7 01:40 Incentive spirometer education provided by an Emergency Department nursing staff member.jw7 Administered Medications: 11/02 23:59 Drug: fentaNYL (PF) IVP 25 mcg Route: IVP; Site: right forearm; as6 11/03 02:58 Follow up: Response: No adverse reaction kd3 01:39 Drug: Furosemide PO 20 mg Route: PO; jw7 02:58 Follow up: Response: No adverse reaction kd3 Medication: 11/02 23:42 VIS not applicable for this client. as6 Outcome: 11/03 00:57 Decision to Hospitalize by Provider. snw 01:04 Condition: stable jw7 01:04 Instructed on the need for admit. 02:58 Admitted to Med/surg accompanied by nurse, via stretcher, room 219, with chart. kd3 03:19 Patient left the ED. jw7 Signatures: Dispatcher [employer] EDMS Lina Campos FNP-C C[employer] PAYMENTS RECEIVED-Csnw Jovita Ngo am2 Rey Whlaey, RN RN as6 Kinjal Harrington, RN RN kd3 Billie Reyes, RN RN jw7 Mare Arndt RN RN pf1 Corrections: (The following items were deleted from the chart) 11/02 23:49 23:48 PMHx: Rheumatoid Arthritis; as6 as6 23:49 23:48 PMHx: Hypertension; as6 as6 23:49 23:48 PMHx: CHF; as6 as6 23:49 23:48 PMHx: COPD; as6 as6 23:49 23:48 PMHx: mitral valve stenosis; as6 as6 23:49 23:48 PMHx: pulmonary HTN; as6 as6 23:49 23:48 PMHx: resp failure; as6 as6 23:49 23:48 PMHx: ADD/ADHD; as6 as6 11/03 00:00 11/02 23:00 Inserted saline lock: 20 gauge in right antecubital area, using aseptic as6 technique. Blood collected. as6
--- NOTE | 2022-11-03 00:58 | EDPHYS ---
Physician Documentation [facility] Name: Celsa Lorenzo Age: 67 yrs Sex: Female : 1955 Arrival Date: 11/02/2022 Time: 22:26 Bed 15 Private MD: Lasha Fall ED Physician Jerald Perdue HPI: 11/02 22:55 This 67 yrs old Female presents to ER via Unassigned with complaints of Fall Injury. snw 22:55 The patient has experienced syncope, collapsed. Onset: The symptoms/episode snw began/occurred suddenly, just prior to arrival. Duration: This was a single episode, that lasted 10 second(s). Context: the episode(s) was witnessed, by family, . Associated signs and symptoms: Pertinent positives: body aches, left arm and leg. The patient has not experienced similar symptoms in the past. recent f/u for vulvar ca, recent PET scan. . Mitral and tricuspid valve replacement. Historical: - Allergies: 23:04 Betadine; pf1 23:04 Iodine; Topical only; pf1 - Home Meds: 23:48 Eliquis 5 mg Oral tab 1 tab 2 times per day [Active]; Lasix 40 mg Oral tab 20mg at as6 night [Active]; Zoloft 50 mg Oral tab 1 tab once daily [Active]; Wellbutrin 150mg Oral 1 tab daily [Active]; metoprolol PO BID [Active]; Xeljanz Oral [Active]; metoprolol tartrate 100 mg Oral tablet 2 times per day [Active]; Protonix 40 mg Oral tablet, delayed release (enteric coated) every morning [Active]; - PMHx: 23:04 Atrial Fib; cardioversion; Vulva CA -chemo and radiation; depression; pf1 - PSHx: 23:04 mitral and tricupid valve replacement.; Cholecystectomy; Tonsillectomy; Appendectomy; pf1 section; tubal ligation; - Immunization history:: Adult Immunizations not up to date, Client reports having NOT received the Covid vaccine. Last tetanus immunization: > 10 years ago Flu vaccine is not up to date. - Social history:: Smoking status: Patient/guardian denies using tobacco, the patient reports quitting approximately 2 years ago, Patient/guardian denies using alcohol, street drugs. ROS: 22:54 Eyes: Negative for injury, pain, redness, and discharge, ENT: Negative for injury, snw pain, and discharge, Neck: Negative for injury, pain, and swelling, Cardiovascular: Negative for chest pain, palpitations, and edema, Respiratory: Negative for shortness of breath, cough, wheezing, and pleuritic chest pain, Abdomen/GI: Negative for abdominal pain, nausea, vomiting, diarrhea, and constipation, Back: Negative for injury and pain, : Negative for injury, bleeding, discharge, and swelling. 22:54 Skin: Negative for injury, rash, and discoloration, Psych: Negative for depression, anxiety, suicide ideation, homicidal ideation, and hallucinations. 22:54 Constitutional: Positive for malaise. 22:54 MS/extremity: Positive for injury or acute deformity, contusion, of the left arm and left leg. 22:54 Neuro: Positive for syncope. Exam: 22:51 Constitutional: This is a well developed, well nourished patient who is awake, alert, snw and in no acute distress. Head/Face: Normocephalic, atraumatic. Eyes: Pupils equal round and reactive to light, extra-ocular motions intact. Lids and lashes normal. Conjunctiva and sclera are non-icteric and not injected. Cornea within normal limits. Periorbital areas with no swelling, redness, or edema. ENT: Nares patent. No nasal discharge, no septal abnormalities noted. Tympanic membranes are normal and external auditory canals are clear. Oropharynx with no redness, swelling, or masses, exudates, or evidence of obstruction, uvula midline. Mucous membranes moist. Neck: Trachea midline, no thyromegaly or masses palpated, and no cervical lymphadenopathy. Supple, full range of motion without nuchal rigidity, or vertebral point tenderness. No Meningismus. Chest/axilla: Normal chest wall appearance and motion. Nontender with no deformity. No lesions are appreciated. Cardiovascular: Regular rate and rhythm with a normal S1 and S2. No gallops, murmurs, or rubs. Normal PMI, no JVD. No pulse deficits. Respiratory: Lungs have equal breath sounds bilaterally, clear to auscultation and percussion. No rales, rhonchi or wheezes noted. No increased work of breathing, no retractions or nasal flaring. Abdomen/GI: Soft, non-tender, with normal bowel sounds. No distension or tympany. No guarding or rebound. No evidence of tenderness throughout. Back: No spinal tenderness. No costovertebral tenderness. Full range of motion. Skin: Warm, dry with normal turgor. Normal color with some scattered rashes to legs, left preauricular area, no lesions, and no evidence of cellulitis. Psych: Awake, alert, with orientation to person, place and time. Behavior, mood, and affect are within normal limits. 22:51 Musculoskeletal/extremity: Extremities: grossly normal except: noted in the lateral aspect of left knee: contusion, pain. 22:51 Neuro: Orientation: is normal, Mentation: is normal, Memory: is normal, Motor: is normal, Sensation: is normal, Gait: not tested. Vital Signs: 22:58 BP 140 / 71; Pulse 61; Resp 18; Temp 98; Pulse Ox 96% on R/A; Weight 113.4 kg; Height 5 pf1 ft. 9 in. ; Pain 6/10; 11/03 00:06 BP 118 / 49; Pulse 57; Resp 13 S; Pulse Ox 96% on R/A; jw7 01:03 BP 124 / 66; Pulse 61; Resp 21 S; Pulse Ox 94% on R/A; jw7 02:48 BP 146 / 69; Pulse 60; Resp 16 S; Pulse Ox 97% on R/A; jw7 11/02 22:58 Body Mass Index 36.92 (113.40 kg, 175.26 cm) pf1 11/02 22:58 Pain Scale: Adult pf1 MDM: 11/02 22:49 Patient medically screened. snw 11/03 00:59 Differential Diagnosis: cardiac arrhythmia, vasovagal episode. Data reviewed: vital snw signs, nurses notes. Management of patient was discussed with the following: Primary Care Provider: Dr. Fall. Care significantly affected by the following chronic conditions: Congestive Heart Failure, Cancer. Counseling: I had a detailed discussion with the patient and/or guardian regarding: the historical points, exam findings, and any diagnostic results supporting the discharge/admit diagnosis, lab results, radiology results, the need for further work-up and treatment in the hospital. Response to treatment: the patient's symptoms have mildly improved after treatment. 01:04 External Records Reviewed: Inpatient record: Echo 06/01/21 Left atrial enlargement. snw 11/02 22:50 Order name: Basic Metabolic Panel; Complete Time: 23:39 snw 11/02 22:50 Order name: CBC with Diff; Complete Time: 23:27 snw 11/02 22:50 Order name: LFT's; Complete Time: 23:39 snw 11/02 22:50 Order name: Magnesium; Complete Time: 23:39 snw 11/02 22:50 Order name: NT PRO-BNP; Complete Time: 23:39 snw 11/02 22:50 Order name: PT-INR; Complete Time: 23:27 snw 11/02 22:50 Order name: Troponin HS; Complete Time: 23:39 snw 11/02 22:50 Order name: TS; Complete Time: 23:50 snw 11/03 00:46 Order name: Troponin High Sensitivity; Complete Time: 01:34 snw 11/03 01:18 Order name: Basic Metabolic Panel EDMS 11/03 01:18 Order name: Basic Metabolic Panel EDMS 11/03 01:18 Order name: CBC with Automated Diff EDMS 11/03 01:18 Order name: CBC with Automated Diff EDMS 11/03 01:18 Order name: NT PRO-BNP EDMS 11/03 01:18 Order name: NT PRO-BNP EDMS 11/03 01:18 Order name: Troponin High Sensitivity EDMS 11/03 01:18 Order name: Troponin High Sensitivity EDMS 11/03 01:18 Order name: Troponin High Sensitivity EDMS 11/03 01:18 Order name: Troponin High Sensitivity EDMS 11/02 22:50 Order name: CT Head C Spine snw 11/02 22:50 Order name: XRAY Chest (1 view) snw 11/02 22:51 Order name: Knee Left 3 View XRAY snw 11/03 01:02 Order name: INCENTIVE SPIROMETRY snw 11/03 01:18 Order name: Echo with Doppler EDMS 11/02 22:50 Order name: EKG; Complete Time: 22:51 snw 11/03 00:46 Order name: EKG; Complete Time: 00:47 snw 11/03 01:18 Order name: Low Sodium EDMS 11/02 22:50 Order name: Cardiac monitoring; Complete Time: 23:41 snw 11/02 22:50 Order name: EKG - Nurse/Tech; Complete Time: 23:41 snw 11/02 22:50 Order name: IV Saline Lock; Complete Time: 23:41 snw 11/02 22:50 Order name: Labs collected and sent; Complete Time: 23:41 snw 11/02 22:50 Order name: O2 Per Protocol; Complete Time: 23:41 snw 11/02 22:50 Order name: O2 Sat Monitoring; Complete Time: 23:41 snw 11/02 23:41 Order name: Misc. Order: please document home meds; Complete Time: 23:49 snw 11/03 00:46 Order name: EKG - Nurse/Tech; Complete Time: 01:03 snw 11/03 01:02 Order name: Knee Immobilizer: left leg; Complete Time: 01:39 snw EC/03 23:14 Rate is 54 beats/min. Rhythm is regular. QRS [place] is Normal. UT interval is normal. QRS snw interval is prolonged. Clinical impression: Sinus bradycardia and Right BBB, PVCs. Administered Medications: 23:59 Drug: fentaNYL (PF) IVP 25 mcg Route: IVP; Site: right forearm; as6 11/03 02:58 Follow up: Response: No adverse reaction kd3 01:39 Drug: Furosemide PO 20 mg Route: PO; jw7 02:58 Follow up: Response: No adverse reaction kd3 Disposition Summary: 11/03/22 00:57 Hospitalization Ordered Hospitalization Status: Inpatient Admission snw Provider: Lasha Fall snw Location: Telemetry/MedSurg (Inpatient) snw Condition: Stable snw Problem: new snw Symptoms: have improved snw Bed/Room Type: Standard snw Room Assignment: 219(11/03/22 02:42) Diagnosis - Syncope Near snw - Unspecified systolic (congestive) heart failure snw - Nondisplaced proximal fibular fracture snw Forms: - Medication Reconciliation Form snw - SBAR form snw Signatures: Dispatcher [employer] Lina Ospina FNP-C BUSINESS ACCOUNT LEADER-Csnw Chante Kuo RN EDWINA cg Rey Whaley RN RN as6 Billie Reyes RN RN jw7 Arndt, Mare, RN RN pf1 Len, Kinjal RN kd3 Corrections: (The following items were deleted from the chart) 11/02 23:49 23:48 PMHx: Rheumatoid Arthritis; as6 as6 23:49 23:48 PMHx: Hypertension; as6 as6 23:49 23:48 PMHx: CHF; as6 as6 23:49 23:48 PMHx: COPD; as6 as6 23:49 23:48 PMHx: mitral valve stenosis; as6 as6 23:49 23:48 PMHx: pulmonary HTN; as6 as6 23:49 23:48 PMHx: resp failure; as6 as6 23:49 23:48 PMHx: ADD/ADHD; as6 as6 11/03 01:26 01:18 Troponin High Sensitivity ordered. EDMS EDMS 02:42 00:57 snw cg
[2022-11-03] MEDS ORDERED: IPRATROPIUM BROM 0.5MG/2.5ML NEB PRN (01:06)
[2022-11-03] MEDS ORDERED: ACETAMINOPHEN 500 MG TAB PO PRN ×2 (01:06→20:11)
[2022-11-03] MEDS ORDERED: ALBUTEROL 2.5 MG/3 ML NEB SOL NEB PRN (01:06)
[2022-11-03] MEDS ORDERED: FUROSEMIDE 20 MG TABLET ONE (01:40)
[2022-11-03] MEDS: MORPHINE 4 MG/ML SYR IV PRN ×3 (03:28→15:28)
[2022-11-03] MEDS: APIXABAN 5 MG TABLET PO SCH ×2 (09:35→20:31)
[2022-11-03] MEDS: FUROSEMIDE 40 MG/4 ML VIAL IV SCH ×2 (09:35→16:24)
--- NOTE | 2022-11-03 14:30 | P.HP ---
Certification for Inpatient Patient admitted to: Inpatient With expected LOS: >2 Midnights Practitioner: I am a practitioner with admitting privileges, knowledge of patient current condition, hospital course, and medical plan of care. Services: Services provided to patient in accordance with Admission requirements found in Title 42 Section 412.3 of the Code of Federal Regulations Patient History Date of Service: 11/03/22 Primary Care Provider: Giancarlo Reason for admission: syncope History of Present Illness: patient of ours with a history of vulvar cancer, mitral valve disease and pulmonary htn. The patient was in her kitchen and suddenly fell. She had a few convulsions per her . She recently had an out patient MRI with her oncologist. They requested a echocardiogram for her valve disease to be evaluated. She has seen Dr. Ash in the past. Allergies iodine Allergy (Verified 11/03/22 04:09) Unknown povidone-iodine [From Betadine] Allergy (Verified 11/03/22 04:10) Hives Home Medications: Albuterol Sulfate [Proair Hfa] 8.5 gm IH TID PRN #90 hfa.aer.ad 04/25/17 Bupropion HCl [Wellbutrin] 150 mg PO DAILY 06/25/17 Fluticasone/Salmeterol [Airduo Respiclick 113-14 Mcg] 1 each IH BID PRN 06/25/17 Sertraline [Zoloft*] 50 mg PO DAILY 06/25/17 Apixaban [Eliquis *] 5 mg PO BID 07/29/18 Furosemide 40 mg PO DAILY 06/02/21 Metoprolol Tartrate [Lopressor] 100 mg PO BID 06/02/21 Tofacitinib Citrate [Xeljanz Xr] 11 mg PO DAILY 06/02/21 Pantoprazole Sodium [Protonix] 40 mg PO BID 90 Days #180 tablet. 06/04/21 - Past Medical/Surgical History Has patient received pneumonia vaccine in the past: No Diabetic: No -: Chronic atrial fibrillation, chronic anti coagulation therapy -: Rheumatoid arthritis -: Hypertension -: Systolic CHF -: Mitral valve stenosis -: COPD -: Former tobacco use -: resp failure -: tonsillectomy -: c- section -: appendectomy -: tubal ligation Psychosocial/ Personal History: Patient is - Family History Mother -: Cancer, Other (see notes) Notes: M.S Father -: Heart disease, Cancer, Other (see notes) Notes: DVT's - Social History Smoking Status: Former smoker Alcohol use: No CD- Drugs: No Caffeine use: Yes Place of Residence: Home Review of Systems 10-point ROS is otherwise unremarkable Cardiovascular: Other (syncopal episoded) Musculoskeletal: Leg Pain (left knee pain and contusions ) Physical Examination - Vital Signs Temperature: 98.0 F Blood Pressure: 133/53 Pulse: 58 Respirations: 16 Pulse Ox (%): 90 - Physical Exam General: Alert, In no apparent distress HEENT: Atraumatic, PERRLA, Mucous membr. moist/pink, EOMI, Sclerae nonicteric Neck: Supple, 2+ carotid pulse no bruit, No LAD, Without JVD or thyroid abnormality Respiratory: Clear to auscultation bilaterally, Normal air movement Cardiovascular: Regular rate/rhythm, Normal S1 S2 Gastrointestinal: Normal bowel sounds, No tenderness Musculoskeletal: No tenderness Integumentary: No rashes Neurological: Normal gait, Normal speech, Normal strength at 5/5 x4 extr, Normal tone, Normal affect Lymphatics: No axilla or inguinal lymphadenopathy - Studies Laboratory Data (last 24 hrs) 11/02/22 11/02/22 11/02/22 23:08 23:08 23:08 WBC 8.00 Hgb 11.5 L Hct 35.4 L Plt Count 215 PT 13.7 H INR 1.25 Sodium 140 Potassium 3.9 BUN 19 H Creatinine 1.21 H Glucose 112 H Magnesium 2.0 Total Bilirubin 0.3 AST 17 ALT 18 Alkaline Phosphatase 74 Assessment and Plan - Problems (Diagnosis) (1) Syncope Current Visit: Yes Status: Acute Plan: plans for echocardiogram and cardiology consult Qualifiers: Syncope type: unspecified Qualified Code(s): R55 - Syncope and collapse (2) Mitral stenosis Current Visit: No Status: Chronic Plan: will evaluate and discuss with Dr. Triana Qualifiers: Cardiac valve disease etiology: nonrheumatic Qualified Code(s): I34.2 - Nonrheumatic mitral (valve) stenosis (3) Atrial fibrillation with RVR Onset Date: 04/23/17 Current Visit: No Status: Chronic Plan: will restart her home meds. (4) HTN (hypertension) Onset Date: 04/23/17 Current Visit: No Status: Chronic Qualifiers: Hypertension type: primary hypertension Discharge Plan: Home Plan to discharge in: 48 Hours - Advance Directives Does patient have a Living Will: No Does patient have a Durable POA for Healthcare: No - Code Status/Comfort Care Code Status Assessed: Yes Code Status: Full Code Critical Care: No Time Spent Managing Pts Care (In Minutes): 50
[2022-11-03] MEDS ORDERED: SALMETEROL IH PRN (14:45)
[2022-11-03] MEDS ORDERED: FLUTICASONE IH PRN (14:45)
--- NOTE | 2022-11-03 14:57 | RAD REPORT ---
EXAM DESCRIPTION: Head C Spine Mpr Wo Con CLINICAL HISTORY: 67 years Female SYNCOPE COMPARISON: None TECHNIQUE: Images were obtained in axial, sagittal, and coronal planes. This exam was performed according to our departmental dose-optimization program which includes use of Automated Exposure Control, adjustment of the mA and/or kV according to patient size and/or use of i terative reconstruction technique. FINDINGS: CT brain: Ventricular system appears age appropriate in size. Mild prominence of the corti nicolas sulci. No abnormal areas of increased attenuation seen. No extra-axial fluid collections noted. No evidence for skull fracture. Symmetric aeration of mastoid air cells bilaterally. Unremarkable par anasal sinuses. CT cervical spine: Height of the vertebral bodies is intact. Satisfactory alignment articular facets. Intact odontoid and predental space. Prevertebral soft tissues appear normal. Intact C1. Posterior e lements intact all levels. Intact occipital condyles. Intervertebral disc space narrowing C3-4, C4-5, C5-6-7 levels. Marked anterior osteophyte formation multiple levels. Marginal spur formation with ne ural foraminal narrowing bilaterally C3-4, C4-5, C5-6, and C6-7 levels. No focal disc protrusion. Chr onic changes lung apices bilaterally right greater than left. IMPRESSION: No acute intracranial abnormality. No evidence for hemorrhage, mass lesion, or large acu te infarction. No evidence for fracture or subluxation involving the spine. Moderately severe multilevel osteoarthri tic change. Electronically signed by: Crissy Zhao MD 11/02/2022 11:46 PM CDT Due to temporary technical issues with the PACS/Fluency reporting system, reports are being signed by the in house radiologists without review as a courtesy to insure prompt reporting. The interpreting radiologist is fully responsible for the content of the report.
[2022-11-03] MEDS ORDERED: NA CHLORIDE 0.9% 250 ML IV SCH (15:00)
--- NOTE | 2022-11-03 15:33 | RAD REPORT ---
EXAM DESCRIPTION: Single view AP chest radiograph(s). CLINICAL HISTORY: Syncope. COMPARISON: None. TECHNIQUE: Single view AP chest radiograph(s). FINDINGS: Trace diffuse pulmonary interstitial prominence. No focal infiltrate identified. No pleura l effusion. No pneumothorax. Mild cardiomegaly. Median sternotomy wires. IMPRESSION: Trace diffuse pulmonary interstitial prominence. No focal infiltrate identified. Mild ca rdiomegaly. Electronically signed by: Naomi Christianson MD 11/03/2022 12:30 AM CDT Due to temporary technical issues with the PACS/Fluency reporting system, reports are being signed by the in house radiologists without review as a courtesy to insure prompt reporting. The interpreting radiologist is fully responsible for the content of the report.
--- NOTE | 2022-11-03 15:47 | RAD REPORT ---
EXAM DESCRIPTION: Three views of the left knee CLINICAL HISTORY: Pain;Smash injury. COMPARISON: None. TECHNIQUE: Three views of the left knee: AP, oblique, and lateral radiographs. FINDINGS: Suspected acute minimally displaced fracture of the proximal fibular head. Alignment is ma intained. Suboptimal patient positioning on the lateral radiograph, precluding evaluation for suprapa tellar joint effusion. Osteopenic appearance of the bones. No radiopaque foreign object. IMPRESSION: Suspected acute minimally displaced fracture of the proximal fibular head Electronically signed by: Naomi Christianson MD 11/03/2022 12:32 AM CDT Due to temporary technical issues with the PACS/Fluency reporting system, reports are being signed by the in house radiologists without review as a courtesy to insure prompt reporting. The interpreting radiologist is fully responsible for the content of the report.
[2022-11-03] MEDS ORDERED: PNEUMOCOCCAL VACCINE 0.5 ML IMVAC ONE (17:00)
[2022-11-03] MEDS ORDERED: ZOLPIDEM TARTRATE 10 MG TABLET PO ONE (20:09)
[2022-11-03] MEDS ORDERED: HYDROCODONE/APAP 5/325 MG TAB PO ONE (20:10)
[2022-11-03] MEDS: PANTOPRAZOLE 40MG TABLET PO SCH (20:31)
[2022-11-03] MEDS ORDERED: APIXABAN 2.5 MG TABLET PO SCH (21:00)
[2022-11-04] MEDS: MORPHINE 4 MG/ML SYR IV PRN ×4 (02:19→21:09)
[2022-11-04 04:18] LABS: Absolute Lymphocytes (CBC) 1.1 K/uL (0.7-4.9); Lymphocytes % 13.7 % (15.3-44.8); MCV 87.5 fL (80-100); MPV 8.3 fL (7.6-11.3); Platelets 179 thou/uL (152-406); RBC Red Blood Cell Count 3.88 M/uL (3.86-4.86)
[2022-11-04 04:39] LABS: Potassium 3.4 mEq/L (3.5-5.1)
[2022-11-04] MEDS: PANTOPRAZOLE 40MG TABLET PO SCH ×2 (08:30→21:09)
[2022-11-04] MEDS: SERTRALINE HCL 50 MG TAB PO SCH (08:32)
[2022-11-04] MEDS: HOME MED 1 EA UNK (Bupropion Hcl [Wellbutrin] 75 MG Tablet) PO SCH (09:00)
[2022-11-04] MEDS: TOFACITINIB CITRATE 11 MG PO SCH (09:00)
[2022-11-04] MEDS: APIXABAN 5 MG TABLET PO SCH ×2 (09:09→21:09)
[2022-11-04] MEDS: FUROSEMIDE 40 MG/4 ML VIAL IV SCH ×2 (09:14→18:39)
--- NOTE | 2022-11-04 12:01 | P.DS ---
Admission Date: 11/03/22 Discharge Date: 11/04/22 Primary Care Provider: Giancarlo Disposition: ROUTINE DISCHARGE Discharge Condition: GOOD Reason for Admission: syncope - Problems (1) Syncope Current Visit: Yes Status: Acute Qualifiers: Syncope type: unspecified Qualified Code(s): R55 - Syncope and collapse (2) Mitral stenosis Current Visit: No Status: Chronic Qualifiers: Cardiac valve disease etiology: nonrheumatic Qualified Code(s): I34.2 - Nonrheumatic mitral (valve) stenosis (3) Atrial fibrillation with RVR Onset Date: 04/23/17 Current Visit: No Status: Chronic (4) HTN (hypertension) Onset Date: 04/23/17 Current Visit: No Status: Chronic Qualifiers: Hypertension type: primary hypertension Brief History of Present Illness: patient of ours with a history of vulvar cancer, mitral valve disease and pulmonary htn. The patient was in her kitchen and suddenly fell. She had a few convulsions per her . She recently had an out patient MRI with her oncologist. They requested a echocardiogram for her valve disease to be evaluated. She has seen Dr. Ash in the past. Hospital Course: Patient was admitted for syncope and a fall. Has a proximal fibula fracture. Was seen by Dr. Triaan. The patient had a stable echocardiogram. We do not have ortho. Will discharge her home. Have her follow up next week and refer to ortho. Possible Neurology. Thank you for allowing me to take part in her care. Vital Signs/Physical Exam: Temp Pulse Resp BP Pulse Ox 97.8 F 84 16 102/60 92 11/04/22 08:00 11/04/22 09:14 11/04/22 08:00 11/04/22 09:14 11/04/22 08:00 General: Alert, In no apparent distress HEENT: Atraumatic, PERRLA, EOMI Neck: Supple, JVD not distended Respiratory: Clear to auscultation bilaterally, Normal air movement Cardiovascular: Regular rate/rhythm, Normal S1 S2 Gastrointestinal: Normal bowel sounds, No tenderness Musculoskeletal: No tenderness Integumentary: No rashes Neurological: Normal speech, Normal tone, Normal affect Lymphatics: No axilla or inguinal lymphadenopathy Laboratory Data at Discharge: WBC 8.30 thou/uL (4.3-10.9) 11/04/22 03:22 Hgb 11.4 g/dL (12.0-15.0) L 11/04/22 03:22 Hct 34.0 % (36.0-45.0) L 11/04/22 03:22 Plt Count 179 thou/uL (152-406) 11/04/22 03:22 PT 13.7 SECONDS (9.5-12.5) H 11/02/22 23:08 INR 1.25 11/02/22 23:08 Sodium 135 mEq/L (136-145) L 11/04/22 03:22 Potassium 3.4 mEq/L (3.5-5.1) L 11/04/22 03:22 BUN 19 mg/dL (7-18) H 11/04/22 03:22 Creatinine 0.86 mg/dL (0.55-1.02) 11/04/22 03:22 Glucose 111 mg/dL (74-106) H 11/04/22 03:22 Magnesium 2.0 mg/dL (1.6-2.4) 11/02/22 23:08 Total Bilirubin 0.3 mg/dL (0.2-1.0) 11/02/22 23:08 AST 17 U/L (15-37) 11/02/22 23:08 ALT 18 U/L (13-56) 11/02/22 23:08 Alkaline Phosphatase 74 U/L (45-117) 11/02/22 23:08 Home Medications: Albuterol Sulfate [Proair Hfa] 8.5 gm IH TID PRN #90 hfa.aer.ad 04/25/17 Bupropion HCl [Wellbutrin] 150 mg PO DAILY 06/25/17 Fluticasone/Salmeterol [Airduo Respiclick 113-14 Mcg] 1 each IH BID PRN 06/25/17 Sertraline [Zoloft*] 50 mg PO DAILY 06/25/17 Apixaban [Eliquis *] 5 mg PO BID 07/29/18 Furosemide 40 mg PO DAILY 06/02/21 Metoprolol Tartrate [Lopressor] 100 mg PO BID 06/02/21 Tofacitinib Citrate [Xeljanz Xr] 11 mg PO DAILY 06/02/21 Pantoprazole Sodium [Protonix] 40 mg PO BID 90 Days #180 tablet. 06/04/21 Meloxicam 7.5 mg PO BID 15 Days #30 tab 11/04/22 New Medications: Meloxicam 7.5 mg PO BID 15 Days #30 tab Diet: Regular Activity: Ad yariel Followup: Lasha Fall MD [Primary Care Provider] - Physician Review: Patient Assessed, Agree with Above Assessment and Plan Time spent managing pt's care (in minutes): 20
[2022-11-04] MEDS: ACETAMINOPHEN 500 MG TAB PO SCH ×2 (12:18→18:39)
[2022-11-04 16:24] VITALS: BMI 32.3
--- NOTE | 2022-11-04 17:06 | CON ---
Date of Consultation: 11/03/2022 Reason For Consultation: Valvular heart disease. History Of Present Illness: This is a 67-year-old female, history of mitral and aortic valve disease status post replacement, claimed that she was in her kitchen and suddenly fell and as per her husban d, she had few convulsions at that time and she lost her consciousness for a short period of time and came through. Evaluated by bedside. She denies having any palpitations or any dizziness or any jeff st pain or other symptoms. Past Medical History: Atrial fibrillation, rheumatoid arthritis, hypertension, CHF, mitral valve and aortic valve disease status post replacement. Past Surgical History: Mitral valve replacement and aortic valve replacement. Medications: Refer reconciliation sheet for detailed list. Allergies: IODINE. Family History: No premature coronary artery disease. Social History: She does not smoke or drink. Does not use any drugs. Review of Systems: All systems reviewed and they were negative except as mentioned in HPI. Physical Examination: Vital Signs: Reviewed. Head and Neck: Pupils are equal, reactive to light. Intact eye movements. No JVD. No cervical lym phadenopathy. Neck: Supple. Thyroid is not enlarged. Lungs: Clear to auscultation bilaterally. No rhonchi, wheezing, or crackles. No accessory muscle u se. Heart: Regular rate and rhythm. No extra sounds. Abdomen: Soft, nontender. Bowel sounds positive. No organomegaly. No masses or hernia. No rigidi ty or rebound. Extremities: No edema, clubbing, or cyanosis. Intact pulses. Skin: No rashes. Neurologic: Alert, awake, and oriented x3. No acute focal deficits appreciated. Lymph nodes: No cervical or axillary lymphadenopathy. Investigations: BUN is 19, creatinine 1.2. Troponin x3 are negative. Assessment/recommendations: 1.Syncope, which it seems like neurological as she had convulsions. I recommend Neurology evaluatio n and monitor on telemetry. Cardiac enzymes are negative and obtain an echocardiogram. 2.Valvular heart disease, status post replacement of the mitral and aortic valve. We will obtain an echo and further recommendations accordingly. 3.Chronic diastolic heart failure. She appears to be euvolemic. No shortness of breath or fluid re tention. We will further evaluate based on the echo results. /RINA Voice ID: [id number] Report ID: [id number]
--- NOTE | 2022-11-04 17:36 | PN ---
Date of Progress Note: 11/04/2022 Subjective: Seen at bedside, asymptomatic. No further episodes of convulsions. Review of Systems: No chest pain, shortness of breath, orthopnea, or cough. No nausea, vomiting, or diarrhea. All othe r systems were reviewed and they were negative. Objective: Vital Signs: Reviewed. Head and Neck: Pupils are equal, reactive to light. Intact eye movements. No JVD. No cervical lym phadenopathy. Neck is supple. Thyroid is not enlarged. Lungs: Clear to auscultation bilaterally. No rhonchi, wheezing, or crackles. No accessory muscle u se. Heart: Regular rate and rhythm. No extra sounds. Abdomen: Soft, nontender. Bowel sounds positive. No organomegaly. No masses or hernia. No rigidi ty or rebound. Extremities: No edema, clubbing, or cyanosis. Intact pulses. Skin: No rash. Neurologic: Alert, awake, and oriented x3. No acute focal deficits appreciated. Lymph nodes: No cervical or axillary lymphadenopathy. Investigations: BUN 19, creatinine 0.86, and hemoglobin is 11.4. Assessment/recommendations: 1.Syncope with convulsions. No arrhythmias were noted. Echo did not show any significant abnormali ties. She has mitral and aortic valve bioprosthesis and they are both functioning well. I recommend a Neurology evaluation and probably she should get an EEG. 2.Valvular heart disease, status post replacement of mitral and aortic valve and both prostheses are functioning well by echo. Reported the results to Dr. Fall. No further cardiac workup will be don e as an inpatient. Patient can be followed her primary Cardiology as an outpatient and [place] c[place] put a department head [employer] or [employer] on her for at least a week to rule out any cardiac arrhythmia as a cause of her syncope. SR/MODL Voice ID: [id number] Report ID: [id number]
--- NOTE | 2022-11-04 18:14 | RAD REPORT ---
EXAM DESCRIPTION: RAD - Shoulder Right 2 View - 11/04/2022 5:38 pm CLINICAL HISTORY: Right shoulder pain post Fall COMPARISON: <Comparisons> FINDINGS: Diffuse osteopenia. AC joint and glenohumeral joint arthritic changes are present. No acut e fracture or dislocation is visualized.
[2022-11-05] MEDS: ACETAMINOPHEN 500 MG TAB PO SCH ×2 (01:51→09:04)
[2022-11-05] MEDS: MORPHINE 4 MG/ML SYR IV PRN ×2 (02:30→08:21)
[2022-11-05] MEDS: TOFACITINIB CITRATE 11 MG PO SCH (08:11)
[2022-11-05] MEDS: HOME MED 1 EA UNK (Bupropion Hcl [Wellbutrin] 75 MG Tablet) PO SCH (08:11)
[2022-11-05] MEDS: SERTRALINE HCL 50 MG TAB PO SCH (08:13)
[2022-11-05] MEDS: PANTOPRAZOLE 40MG TABLET PO SCH (08:13)
[2022-11-05] MEDS: FUROSEMIDE 40 MG/4 ML VIAL IV SCH (08:13)
[2022-11-05] MEDS: APIXABAN 5 MG TABLET PO SCH (08:13)
[2022-11-05 08:22] VITALS: BP 132/61
[2022-11-05 08:46] VITALS: O2SAT 95
--- NOTE | 2022-11-05 11:54 | P.DS ---
Admission Date: 11/03/22 Discharge Date: 11/05/22 Primary Care Provider: Giancarlo Disposition: ROUTINE DISCHARGE Discharge Condition: GOOD Reason for Admission: syncope - Problems (1) Syncope Current Visit: Yes Status: Acute Qualifiers: Syncope type: unspecified Qualified Code(s): R55 - Syncope and collapse (2) Mitral stenosis Current Visit: No Status: Chronic Qualifiers: Cardiac valve disease etiology: nonrheumatic Qualified Code(s): I34.2 - Nonrheumatic mitral (valve) stenosis (3) Atrial fibrillation with RVR Onset Date: 04/23/17 Current Visit: No Status: Chronic (4) HTN (hypertension) Onset Date: 04/23/17 Current Visit: No Status: Chronic Qualifiers: Hypertension type: primary hypertension (5) Rheumatoid arthritis Current Visit: Yes Status: Acute Qualifiers: Rheumatoid arthritis location: shoulder Rheumatoid factor presence: unspecified presence Laterality: left Qualified Code(s): M06.9 - Rheumatoid arthritis, unspecified Brief History of Present Illness: patient of ours with a history of vulvar cancer, mitral valve disease and pulmonary htn. The patient was in her kitchen and suddenly fell. She had a few convulsions per her . She recently had an out patient MRI with her oncologist. They requested a echocardiogram for her valve disease to be evaluated. She has seen Dr. Ash in the past. Hospital Course: Patient was admitted for syncope and a fall. Has a proximal fibula fracture. Was seen by Dr. Triana. The patient had a stable echocardiogram. We do not have ortho. Will discharge her home. Have her follow up next week and refer to ortho. Possible Neurology. Thank you for allowing me to take part in her care. 11.05.22 discharged held due to shoulder pain and patient not being able to tolerate a walker. The patient is working better with a walker today. Minor leg pain from the left fibula fracture. Will have her take a short course of steroids. Will refer for a dexa scan and neurologist as an outpatient Vital Signs/Physical Exam: Temp Pulse Resp BP Pulse Ox 97 F 92 H 18 132/61 97 11/05/22 08:00 11/05/22 08:13 11/05/22 08:51 11/05/22 08:13 11/05/22 08:51 General: Alert, In no apparent distress HEENT: Atraumatic, PERRLA, EOMI Neck: Supple, JVD not distended Respiratory: Clear to auscultation bilaterally, Normal air movement Cardiovascular: Regular rate/rhythm, Normal S1 S2 Gastrointestinal: Normal bowel sounds, No tenderness Musculoskeletal: No tenderness Integumentary: No rashes Neurological: Normal speech, Normal tone, Normal affect Lymphatics: No axilla or inguinal lymphadenopathy Laboratory Data at Discharge: WBC 8.30 thou/uL (4.3-10.9) 11/04/22 03:22 Hgb 11.4 g/dL (12.0-15.0) L 11/04/22 03:22 Hct 34.0 % (36.0-45.0) L 11/04/22 03:22 Plt Count 179 thou/uL (152-406) 11/04/22 03:22 PT 13.7 SECONDS (9.5-12.5) H 11/02/22 23:08 INR 1.25 11/02/22 23:08 Sodium 135 mEq/L (136-145) L 11/04/22 03:22 Potassium 3.4 mEq/L (3.5-5.1) L 11/04/22 03:22 BUN 19 mg/dL (7-18) H 11/04/22 03:22 Creatinine 0.86 mg/dL (0.55-1.02) 11/04/22 03:22 Glucose 111 mg/dL (74-106) H 11/04/22 03:22 Magnesium 2.0 mg/dL (1.6-2.4) 11/02/22 23:08 Total Bilirubin 0.3 mg/dL (0.2-1.0) 11/02/22 23:08 AST 17 U/L (15-37) 11/02/22 23:08 ALT 18 U/L (13-56) 11/02/22 23:08 Alkaline Phosphatase 74 U/L (45-117) 11/02/22 23:08 Home Medications: RX: Albuterol Sulfate [Proair Hfa] 8.5 gm IH TID PRN #90 hfa.aer.ad 04/25/17 RX: Bupropion HCl [Wellbutrin] 150 mg PO DAILY 06/25/17 RX: Fluticasone/Salmeterol [Airduo Respiclick 113-14 Mcg] 1 each IH BID PRN 06/25/17 RX: Sertraline [Zoloft*] 50 mg PO DAILY 06/25/17 RX: Apixaban [Eliquis *] 5 mg PO BID 07/29/18 Metoprolol Tartrate [Lopressor] 100 mg PO BID 06/02/21 RX: Furosemide 40 mg PO DAILY 06/02/21 Tofacitinib Citrate [Xeljanz Xr] 11 mg PO DAILY 06/02/21 Pantoprazole Sodium [Protonix] 40 mg PO BID 90 Days #180 tablet. 06/04/21 RX: predniSONE [Deltasone*] 10 mg PO BID 6 Days #9 tab 11/05/22 New Medications: RX: predniSONE [Deltasone*] 10 mg PO BID 6 Days #9 tab Diet: Regular Activity: Ad yariel Followup: Lasha Fall MD [Primary Care Provider] - 2-3 Days
[2022-11-05 12:26] VITALS: TEMP 98.2
--- NOTE | 2022-11-06 07:54 | ECHO ---
HEIGHT: 5 ft 10 in WEIGHT: 225 lb 6.4 oz DATE OF STUDY: 11/03/[address]: Lina Nazario ESTHETICIAN PERMANENT MAKEUP ARTIST-BC 2-DIMENSIONAL: YES M.MODE: YES DOPPLER: YES COLOR FLOW: YES TDS: PORTABLE: YES DEFINITY: BUBBLE STUDY: DIAGNOSIS: CONGESTIVE HEART FAILURE CARDIAC HISTORY: CATHERIZATION: SURGERY: YES PROSTHETIC VALVE: MITRAL VALVE, TRICUSPID VALVE PACEMAKER: MEASUREMENTS (cm) DIASTOLIC (NORMALS) SYSTOLIC (NORMALS) IVSd 1.0 (0.6-1.2) LA Diam 4.9 (1.9-4.0) LVEF 71% LVIDd 4.9 (3.5-5.7) LVIDs 2.9 (2.0-3.5) %FS 41% LVPWd 1.3 (0.6-1.2) Ao Diam 2.7 (2.0-3.7) 2 DIMENSIONAL ASSESSMENT: RIGHT ATRIUM: NORMAL LEFT ATRIUM: ENLARGED RIGHT VENTRICLE: NORMAL LEFT VENTRICLE: NORMAL TRICUSPID VALVE: MILD TRICUSPID REGURGITATION MITRAL VALVE: BIOPROSTHESIS IS PRESENT PULMONIC VALVE: MILD PULMONIC INSUFFICIENCY AORTIC VALVE: BIOPROSTHESIS IS PRESENT PERICARDIAL EFFUSION: NONE AORTIC ROOT: NORMAL LEFT VENTRICULAR WALL MOTION: NORMAL DOPPLER/COLOR FLOW: SEE BELOW COMMENTS: 1. NORMAL LEFT VENTRICULAR EJECTION FRACTION 60-65% WITH NORMAL WALL MOTION 2. MITRAL VALVE BIOPROSTHESIS IS PRESENT THAT IS FUNCTIONING NORMALLY 3. AORTIC VALVE BIOPROSTHESIS IS FUNCTIONING WELL 4. SEVERE LEFT ATRIAL ENLARGEMENT 5. MILD TRICUSPID REGURGITATION 6. MILD PULMONIC INSUFFICIENCY TECHNOLOGIST: ELISE PIRES
--- NOTE | 2022-11-06 13:14 | EKG ---
Test Date: 2022-11-03 Test Time: 00:56:45 Edge Bander Operator: MEASUREMENT RESULTS: Intervals: Rate: 59 NH: 166 QRSD: 142 QT: 506 QTc: 500 [place]: P: 80 NH: 166 QRS: 63 T: 51 INTERPRETIVE STATEMENTS: Sinus bradycardia Right bundle branch block Abnormal ECG Compared to ECG 06/30/2022 18:16:30 Sinus rhythm no longer present Atrial premature complex(es) no longer present Electronically Signed On 11-06-22 13:09:45 CDT by Scout Triana
--- NOTE | 2022-11-06 13:14 | EKG ---
Test Date: 2022-11-02 Test Time: 23:01:41 Intermediate Manager: MEASUREMENT RESULTS: Intervals: Rate: 54 SC: 160 QRSD: 142 QT: 500 QTc: 474 [place]: P: 79 SC: 160 QRS: 60 T: 44 INTERPRETIVE STATEMENTS: Sinus bradycardia with occasional premature ventricular complexes Right bundle branch block Abnormal ECG Compared to ECG 06/30/2022 18:16:30 Ventricular premature complex(es) now present Sinus rhythm no longer present Atrial premature complex(es) no longer present Electronically Signed On 11-06-22 13:10:00 CDT by Scout Triana
== END 2022-11-05 14:30 | disposition home or self-care (01) | DRG 563 ==
LOC: ER 22:26 → ERHOLD 11-03 02:39 → 2ND 11-03 02:48
PROVIDERS: ADMIT Internal Medicine; ATTEND Internal Medicine
DX: S82.492A Other fracture of shaft of left fibula, initial encounter for closed fracture (principal); I38 Endocarditis, valve unspecified; I48.20 Chronic atrial fibrillation, unspecified; I50.32 Chronic diastolic (congestive) heart failure; I11.0 Hypertensive heart disease with heart failure; R55 Syncope and collapse; I34.2 Nonrheumatic mitral (valve) stenosis; M06.9 Rheumatoid arthritis, unspecified; Z79.01 Long term (current) use of anticoagulants; Z95.4 Presence of other heart-valve replacement; Z92.3 Personal history of irradiation; Z90.49 Acquired absence of other specified parts of digestive tract; Z92.21 Personal history of antineoplastic chemotherapy; Z98.51 Tubal ligation status; Z79.52 Long term (current) use of systemic steroids; Z28.310 Unvaccinated for COVID-19; Z79.899 Other long term (current) drug therapy; Z91.048 Other nonmedicinal substance allergy status; Z87.891 Personal history of nicotine dependence; W18.30XA Fall on same level, unspecified, initial encounter; Y93.9 Activity, unspecified; Y92.010 Kitchen of single-family (private) house as the place of occurrence of the external cause
CPT/HCPCS: 36415; 70450; 71045; 72125; 80048; 80076; 83735; 83880; 84484; 85025; 85610; 86850; 86900; 86901; 93005; 93306; 96374; 97116; 97161; 97530; 99285; J1940; J7050; J7613

== ENCOUNTER 2024-03-26 20:15 | Inpatient (IN) | payer OTHER ==
[2024-03-26 20:58] LABS: Absolute Basophils 0.1 K/uL (0-0.5); Absolute Lymphocytes (CBC) 1.5 K/uL (0.7-4.9); Absolute Monocytes 0.3 K/uL (0.1-1.3); Absolute Neutrophil 7.2 K/uL (1.8-8.0); Basophils % 0.7 % (0-1.3); Eosinophils % 0.3 % (0-4.4); Hematocrit 38.7 % (36.0-45.0); Hemoglobin 13.1 g/dL (12.0-15.0); Lymphocytes % 16.2 % (15.3-44.8); MCH 30.7 pg (27.0-35.0); MCHC 33.7 g/dL (32.0-36.0); MPV 7.6 fL (7.6-11.3); Monocytes % 3.7 % (3.3-12.3); Neutrophils % 79.1 % (41.7-73.7); Nucleated Red Blood Cells % 0.1 % (0-0); Platelets 242 thou/uL (152-406); RBC Red Blood Cell Count 4.25 M/uL (3.86-4.86); Red Cell Distribution Width 13.8 % (12.1-15.2)
[2024-03-26 21:01] LABS: PT Prothrombin Time 12.2 SECONDS (9.4-12.5); Protime INR 1.09
[2024-03-26] MEDS ORDERED: TDAP (DIPHTH,PERTUSS(ACELL),TET VAC) 0.5 ML VIAL IMVAC ONE (21:08)
[2024-03-26] MEDS ORDERED: LIDOCAINE 1% 20 ML MDV ONE (21:08)
[2024-03-26] MEDS ORDERED: MORPHINE 4 MG/ML SYR ONE ×2 (21:08→22:59)
[2024-03-26] MEDS ORDERED: ONDANSETRON 4 MG/2 ML VIAL ONE (21:08)
[2024-03-26 21:18] LABS: ALT/SGPT 22 U/L (13-56); AST/SGOT 21 U/L (15-37); Albumin 3.6 g/dL (3.4-5.0); Albumin/Globulin Ratio 0.9 (1.1-1.8); Alkaline Phosphatase 50 U/L (45-117); BUN Blood Urea Nitrogen 14 mg/dL (7-18); Bicarbonate 27 mEq/L (21-32); Bilirubin Direct < 0.2 mg/dL (0-0.2); Bilirubin Indirect, Calculated 0.1 mg/dL (0.2-0.8); Bilirubin Total 0.3 mg/dL (0.2-1.0); Globulin 3.9 g/dL (2.3-3.5); Glomerular Filtration Rate 77 ml/min (=/>90); Glucose Level 125 mg/dL (74-106); NT PRO-BNP 2658 pg/mL (<125); Protein, Total 7.5 g/dL (6.4-8.2); Sodium Level 135 mEq/L (136-145); Troponin High Sensitivity 18.5 pg/mL (<58.9)
--- NOTE | 2024-03-26 22:07 | RAD REPORT ---
EXAMINATION: ONE VIEW CHEST XR CLINICAL INDICATION: Female, 69 years old.,CHEST PAIN TECHNIQUE: Frontal chest projection is submitted. Examination is limited by patient positioning and t echnique. COMPARISON: 11/03/2022 FINDINGS: The lungs are well inflated and clear, with stable mild bibasilar interstitial prominence. No pneumo thorax or sizable effusion. The heart is normal in size. Mediastinal contours are unchanged. IMPRESSION: No acute intrathoracic abnormalities.
--- NOTE | 2024-03-26 22:43 | RAD REPORT ---
EXAM: CT brain without contrast HISTORY: head injury COMPARISON: 11/02/2022 TECHNIQUE: Multiple contiguous axial images were obtained and a CT of the brain without contrast. Sag ittal and coronal reformats were performed. FINDINGS: No evidence of hydrocephalus, intracranial hemorrhage, or extra-axial fluid collection. The brain is normal in morphology. The calvarium is intact. The visualized paranasal sinuses and mastoid air cells are essentially clear . Left parietal scalp swelling with laceration and large hematoma. IMPRESSION: No evidence of acute intracranial abnormality. Left parietal scalp swelling with laceration and large hematoma. EXAM: CT of the cervical spine without contrast HISTORY: head injury COMPARISON: None TECHNIQUE: Multiple contiguous axial images were obtained in a CT of the cervical spine without contr ast. Sagittal and coronal reformats were performed. FINDINGS: The vertebral bodies demonstrate normal height with normal alignment although there is agai n straightening of normal cervical lordosis which may be positional or secondary to muscle spasm. No evidence of acute fracture or subluxation.. Stable multilevel degenerative changes contributing to moderate degrees of neural foraminal narrowing bilaterally at C3-4 and on the right C4-5 and C5-6. No prevertebral soft tissue swelling is seen. The posterior facets are well aligned. Normal alignment of the skull base with the cervical spine is seen. The lung apices show some apical paraseptal emphysematous changes more so on the right. IMPRESSION: No evidence of acute osseous abnormality of the cervical spine. Stable degenerative changes as above.
[2024-03-27] MEDS ORDERED: HYDROCODONE/APAP 5/325 MG TAB ONE (01:20)
[2024-03-27] MEDS ORDERED: ONDANSETRON 4 MG/2 ML VIAL ONE (02:05)
--- NOTE | 2024-03-27 04:20 | ER ---
Nurse's Notes [facility] Name: Celsa Lorenzo Age: 69 yrs Sex: Female : 1955 Arrival Date: 03/26/2024 Time: 20:15 Bed 7 Private MD: Diagnosis: Acute congestive heart failure exacerbation, atrial fibrillation, syncope and collapse, posterior scalp injury, posterior scalp laceration, acute concussion Presentation: 03/26 20:15 Chief complaint: Chief complaint: Patient states: PT STATES SHE HAD A FEW DRINKS jj7 TONIGHT AND FELL FROM A STANDING POSITION, BUT STATES SHE DOES NOT EVEN REMEMBER FALLING UNTIL HER FOUND HER ON THE FLOOR. LAC TO BACK TO HEAD AND RIGHT FOREARM PAIN EMS states: FALL AT HER HOUSE. UNMITNESSED. 20:15 Coronavirus screen: At this time, the client does not indicate any symptoms associated jj7 with coronavirus-19. Ebola Screen: No symptoms or risks identified at this time. Initial Sepsis Screen: Does the patient meet any 2 criteria? No. Patient's initial sepsis screen is negative. Does the patient have a suspected source of infection? No. Patient's initial sepsis screen is negative. Risk Assessment: Do you want to hurt yourself or someone else? Patient reports no desire to harm self or others. Onset of symptoms was March 26, 2024. Care prior to arrival: Medication(s) given: Tylenol, 1000 mg, IV initiated. 20 GA. Mechanism of Injury: Fall from standing position. 20:15 Method Of Arrival: EMS: [facility] 20:15 Acuity: MAXIMO 3 jj7 Triage Assessment: 20:15 General: Appears in no apparent distress. uncomfortable, Behavior is calm, cooperative, jj7 appropriate for age. Pain: Complains of pain in scalp and right arm. Neuro: No deficits noted. Level of Consciousness is awake, alert, obeys commands, Oriented to person, place, time, situation, Appropriate for age. Derm: Wound noted left parietal area Wound is LAC. Musculoskeletal: Reports pain in right arm. Historical: - Allergies: 21:01 Betadine; jj7 21:01 Iodine; Topical only; jj7 - PMHx: 21:01 Atrial Fib; cardioversion; Depression; Vulva CA -chemo and radiation; jj7 - PSHx: 21:01 Appendectomy; section; Cholecystectomy; mitral and tricupid valve jj7 replacement.; Tonsillectomy; tubal ligation; - Immunization history:: Adult Immunizations not up to date, Client reports having NOT received the Covid vaccine. Flu vaccine is not up to date. - Infectious Disease History:: Denies. - Social history:: Smoking status: Patient denies any tobacco usage or history of. Patient uses alcohol, occasionally. Patient/guardian denies using street drugs, IV drugs. Screenin:15 [facility] ED Fall Risk Assessment (Adult) History of falling in the last 3 months, jj7 including since admission Yes- single mechanical fall (1 pt) Confusion or Disorientation No (0 pts) Intoxicated or Sedated Yes (3 pts) Impaired Gait No (0 pts) Mobility Assist Device Used No (0 pt) Altered Elimination No (0 pt) Score/Fall Risk Level 3 or more points = High Risk Oriented to surroundings, Maintained a safe environment, Educated pt \T\ family on fall prevention, incl call for assistance when getting out of bed, Assessed \T\ reinforced patient's understanding of fall precautions. Abuse screen: Denies threats or abuse. Nutritional screening: No deficits noted. Tuberculosis screening: No symptoms or risk factors identified. Assessment: 20:15 Reassessment: SEE TRIAGE ASSESSMENT. jj7 21:38 Neuro: Level of Consciousness is awake, alert, obeys commands, Oriented to person, jj7 place, time, situation, Appropriate for age. Cardiovascular: Denies chest pain, Rhythm is atrial fibrillation. 23:00 Reassessment: Patient is alert, oriented x 3, equal unlabored respirations, skin jj7 warm/dry/pink. 03/27 00:00 Reassessment: Patient and/or family updated on plan of care and expected duration. Pain jj7 level reassessed. Patient is alert, oriented x 3, equal unlabored respirations, skin warm/dry/pink. 01:00 Reassessment: Patient is alert, oriented x 3, equal unlabored respirations, skin jj7 warm/dry/pink. 03:00 Reassessment: PT SLEEPING. VS STABLE. NO DISTRESS NOTED. jj7 05:44 Reassessment: PT ACTIVELY VOMITING ON TRANSPORT TO /S. DR SOLARES INFORMED. ORDER FOR jj7 MEDS GIVEN. PT TOLERATING WELL. TANA BLAND INFORMED ON M/S ABOOUT VOMITING AND MEDS GIVEN. Vital Signs: 03/26 20:15 BP 128 / 85; Pulse 83; Resp 17; Temp 97.9; Pulse Ox 96% ; Weight 102.06 kg; Height 5 j7 ft. 10 in. ; 21:15 BP 99 / 58; Pulse 92; Resp 16; Pulse Ox 96% ; j7 22:15 BP 104 / 61; Pulse 93; Resp 17; Pulse Ox 96% ; jj7 23:15 BP 106 / 71; Pulse 70; Resp 16; Pulse Ox 100% ; j7 03/27 00:12 BP 93 / 69; Pulse 98; Resp 17; Pulse Ox 96% ; j7 01:16 BP 99 / 45; Pulse 104; Resp 20; Pulse Ox 96% ; j7 02:30 BP 136 / 74; Pulse 59; Resp 16; Pulse Ox 97% ; j7 03:40 BP 133 / 69; Pulse 91; Resp 17; Pulse Ox 95% ; j7 04:22 BP 123 / 80; Pulse 96; Resp 16; Pulse Ox 96% ; j7 04:57 BP 135 / 75; Pulse 91; Resp 17; Pulse Ox 95% ; j7 05:40 BP 148 / 82; Pulse 88; Resp 17; Temp 98.3; Pulse Ox 99% ; 7 03/26 20:15 Body Mass Index 32.28 (102.06 kg, 177.8 cm) j7 [place] Coma Score: 00:41 Eye Response: spontaneous(4). Motor Response: obeys commands(6). Verbal Response: sp4 oriented(5). Total: 15. ED Course: 03/26 20:15 Maintain EMS IV. Dressing intact. Good blood return noted. Site clean \T\ dry. Gauge \T\ jj 7 site: 20 RIGHT HAND. Flushed with 10 mL NS. 20:15 Arm band placed on right wrist. Patient placed in an exam room, on a stretcher, on jj7 cardiac rn, on pulse oximetry. 20:15 Patient has correct armband on for positive identification. Bed in low position. Call jj7 light in reach. Side rails up X2. Provided Education on: USE OF CALL THOMAS. Warm blanket given. 20:15 Client placed on continuous cardiac and pulse oximetry monitoring. NIBP monitoring jj7 applied. compliance monitor on. Pulse ox on. NIBP on. 20:16 Patient arrived in ED. jj6 20:16 Hermann Allen MD is Attending Physician. sp4 20:34 Alejandro Mueller, EDWINA is Primary Nurse. jj7 20:51 Dressings: 4X4s X 3; scalp UDAY WRAP. Wound care: to laceration located on scalp was jj7 PRESSURE DRESSING APPLIED Patient tolerated well. APPLIED BY DR SOLARES. 20:54 Basic Metabolic Panel Sent. jj7 20:54 CBC with Diff Sent. jj7 20:54 LFT's Sent. jj7 20:54 Magnesium Sent. jj7 20:54 NT PRO-BNP Sent. jj7 20:54 PT-INR Sent. jj7 20:54 Troponin HS Sent. jj7 21:00 Triage completed. jj7 21:07 EKG done, by ED staff, reviewed by Hermann Allen MD. sa1 21:28 Alcohol Level Sent. jj7 21:45 XRAY Chest (1 view) In Process Unspecified. EDMS 22:03 CT Head C Spine In Process Unspecified. EDMS 03/27 00:09 Assist provider with laceration repair on left occipital area using sutures. Set up jj7 tray. Performed by Hermann Allen MD Patient tolerated well. 00:11 Forearm Right XRAY In Process Unspecified. EDMS 01:00 Door closed. Lights dimmed. jj7 01:08 Humerus Right XRAY In Process Unspecified. EDMS 01:08 Shoulder Right (2 View) XRAY In Process Unspecified. EDMS 04:19 Lasha Fall MD is Hospitalizing Provider. sp4 05:44 Patient admitted, IV remains in place. jj7 Administered Medications: 03/26 21:22 Drug: Boostrix Tdap IM 0.5 ml IM once; as a single dose Route: IM; Site: right deltoid; jj7 22:56 Follow up: Response: No adverse reaction jj7 21:22 Drug: morphine IVP or IV 4 mg IVP once over 4 mins Route: IVP; Infused Over: 4 mins; jj7 Site: right hand; 22:56 Follow up: Response: Pain is unchanged, physician notified jj7 21:22 Drug: Ondansetron IVP 4 mg IVP once; over 2 minutes Route: IVP; Site: right hand; jj7 22:56 Follow up: Response: No adverse reaction jj7 23:04 Drug: morphine IVP or IV 4 mg IVP once over 4 mins Route: IVP; Infused Over: 4 mins; jj7 Site: right wrist; 23:35 Follow up: Response: Pain is decreased jj7 03/27 00:10 Drug: Lidocaine Infiltration (1 %) 20 ml 20 ml Infiltration once; to bedside {Note: jj7 ADMIN BY DR SOLARES.} Volume: 20 ml; Route: Infiltration; 00:10 Drug: Lidocaine Infiltration (1 %) 20 ml 20 ml Infiltration once; to bedside {Note: jj7 ADMIN BY DR SOLARES.} Volume: 20 ml; Route: Infiltration; 01:22 Drug: HYDROcodone-acetaminophen PO 5 mg-325 mg 2 tabs PO once Route: PO; jj7 03:00 Follow up: Response: Marked relief of symptoms; Pain is decreased jj7 02:10 Drug: Ondansetron IVP 4 mg IVP once; over 2 minutes Route: IVP; Site: right wrist; jj7 02:40 Follow up: Response: Nausea is decreased jj7 05:44 Drug: metoCLOPramide IVP 10 mg IVP once; over 1 to 2 minutes Route: IVP; Site: left jj7 forearm; 06:00 Follow up: Response: Nausea is decreased jj7 Medication: 03/26 20:15 VIS not applicable for this client. jj7 Outcome: 03/27 04:20 Decision to Hospitalize by Provider. sp4 04:58 Admitted to Med/surg Report called to [facility] FAXED TO 2ND FLOOR jj7 05:44 Admitted to Med/surg accompanied by nurse, via wheelchair, room 208, with chart, jj7 05:44 Condition: stable 05:44 Patient left the ED. jj7 Signatures: Dispatcher [employer] EDMS Hanna Sanchez jj6 Alejandro Mueller RN RN jj7 Hermann Allen MD MD sp4 [place] 1 Corrections: (The following items were deleted from the chart) 03/26 21:00 20:56 Chief complaint: roz jj7 21:33 20:51 Wound care: to laceration located on scalp was PRESSURE DRESSING APPLIED Patient mariyaj7 tolerated well. jj7 23:46 20:15 Reassessment: USE OF CALL THOMAS jj7 jj7 03/27 06:08 06:07 Patient left the ED. jj7 jj7
--- NOTE | 2024-03-27 04:21 | EDPHYS ---
Physician Documentation [facility] Name: Celsa Lorenzo Age: 69 yrs Sex: Female : 1955 Arrival Date: 03/26/2024 Time: 20:15 Bed 7 Private MD: ED Physician Hermann Allen HPI: 03/26 20:16 This 69 yrs old Female presents to ER via Unassigned with complaints of sp4 Syncope, Fall Injury. 03/27 00:40 Six 9-year-old female with history of atrial fibrillation, history of cardioversion, sp4 history of depression, history of vulvar cancer, history of replacement of tricuspid valve. Patient presents after syncopal episode at home fall in the kitchen and posterior scalp laceration also complaining of the right arm and forearm pain. Patient is not sure what happened to her at home.. Historical: - Allergies: 03/26 21:01 Betadine; jj7 21:01 Iodine; Topical only; jj7 - PMHx: 21:01 Atrial Fib; cardioversion; Depression; Vulva CA -chemo and radiation; jj7 - PSHx: 21:01 Appendectomy; section; Cholecystectomy; mitral and tricupid valve jj7 replacement.; Tonsillectomy; tubal ligation; - Immunization history:: Adult Immunizations not up to date, Client reports having NOT received the Covid vaccine. Flu vaccine is not up to date. - Infectious Disease History:: Denies. - Social history:: Smoking status: Patient denies any tobacco usage or history of. Patient uses alcohol, occasionally. Patient/guardian denies using street drugs, IV drugs. ROS: 03/27 00:41 Constitutional: Negative for fever, chills, and weight loss, positive for fall at home, sp4 positive for syncope, positive for head injury, positive for right arm pain All other systems are negative, Exam: 00:41 Constitutional: This is a well developed, well nourished patient who is awake, alert, sp4 moderate discomfort on arrival. Head/Face: Normocephalic, there is left posterior parietal to occipital scalp laceration appears like an oval skin defect with moderate amount of hematoma, no active bleeding Eyes: Pupils equal round and reactive to light, extra-ocular motions intact. Lids and lashes normal. Conjunctiva and sclera are not injected. Cornea within normal limits. Periorbital areas with no swelling, redness, or edema. ENT: Nares patent. No nasal discharge, no septal abnormalities noted. Tympanic membranes are normal and external auditory canals are clear. Oropharynx with no redness, swelling, or masses, exudates, or evidence of obstruction, uvula midline. Mucous membranes moist. Neck: Trachea midline, no thyromegaly or masses palpated, and no cervical lymphadenopathy. Supple, full range of motion without nuchal rigidity, or vertebral point tenderness. Chest/axilla: Normal chest wall appearance and motion. Nontender with no deformity. No lesions are appreciated. Cardiovascular: Regular rate and rhythm with a normal S1 and S2. No gallops, murmurs, or rubs. Normal PMI, no JVD. No pulse deficits. Respiratory: Lungs have equal breath sounds bilaterally, clear to auscultation and percussion. No rales, rhonchi or wheezes noted. No increased work of breathing, no retractions or nasal flaring. Abdomen/GI: Soft, with normal bowel sounds. No distension or tympany. No guarding or rebound. No evidence of tenderness throughout. Back: No spinal tenderness. No costovertebral tenderness. Skin: Warm, dry with normal turgor. Normal color with no rashes, no lesions, and no evidence of cellulitis. MS/ Extremity: Pulses equal, no cyanosis. Neurovascular intact. Full, normal range of motion. Neuro: Awake and alert, GCS 15, oriented to person, place, time, and situation. Cranial nerves II-XII grossly intact. Motor strength 5/5 in all extremities. Sensory grossly intact. Psych: Awake, alert, with orientation to person, place and time. Behavior, mood, and affect are within normal limits 00:41 ECG was reviewed by the Attending Physician. EKG at 20 100 atrial fibrillation 90 bpm right bundle branch block Vital Signs: 03/26 20:15 BP 128 / 85; Pulse 83; Resp 17; Temp 97.9; Pulse Ox 96% ; Weight 102.06 kg; Height 5 jj7 ft. 10 in. ; 21:15 BP 99 / 58; Pulse 92; Resp 16; Pulse Ox 96% ; jj7 22:15 BP 104 / 61; Pulse 93; Resp 17; Pulse Ox 96% ; jj7 23:15 BP 106 / 71; Pulse 70; Resp 16; Pulse Ox 100% ; j7 03/27 00:12 BP 93 / 69; Pulse 98; Resp 17; Pulse Ox 96% ; j7 01:16 BP 99 / 45; Pulse 104; Resp 20; Pulse Ox 96% ; j7 02:30 BP 136 / 74; Pulse 59; Resp 16; Pulse Ox 97% ; j7 03:40 BP 133 / 69; Pulse 91; Resp 17; Pulse Ox 95% ; j7 04:22 BP 123 / 80; Pulse 96; Resp 16; Pulse Ox 96% ; j7 04:57 BP 135 / 75; Pulse 91; Resp 17; Pulse Ox 95% ; j7 05:40 BP 148 / 82; Pulse 88; Resp 17; Temp 98.3; Pulse Ox 99% ; 7 03/26 20:15 Body Mass Index 32.28 (102.06 kg, 177.8 cm) [facility] Valerie Coma Score: 00:41 Eye Response: spontaneous(4). Motor Response: obeys commands(6). Verbal Response: sp4 oriented(5). Total: 15. Laceration: 00:34 Wound Repair of 4cm ( 1.6in ) subcutaneous laceration to left parietal area - 4 cm long sp4 oval appearing skin defect from recent injury , controlled bleeding . Irregularly shaped.. Hemostasis noted.. Distal neuro/vascular/tendon intact. Anesthesia: Wound infiltrated with 20 mls of 1% lidocaine. Wound prep: Moderate cleansing by me, Copious irrigation. Skin closed with 8 2-0 Silk using vertical mattress sutures and sterile technique. Dressed with 4x4's, Kerlix. Patient tolerated well. MDM: 03/26 20:29 Medical Screening Exam initiated sp4 23:53 ED course: EXAM: CT brain without contrast HISTORY: head injury COMPARISON: 11/02/2022 sp4 TECHNIQUE: Multiple contiguous axial images were obtained and a CT of the brain without contrast. Sagittal and coronal reformats were performed. FINDINGS: No evidence of hydrocephalus, intracranial hemorrhage, or extra-axial fluid collection. The brain is normal in morphology. The calvarium is intact. The visualized paranasal sinuses and mastoid air cells are essentially clear. Left parietal scalp swelling with laceration and large hematoma. IMPRESSION: No evidence of acute intracranial abnormality. Left parietal scalp swelling with laceration and large hematoma. EXAM: CT of the cervical spine without contrast HISTORY: head injury COMPARISON: None TECHNIQUE: Multiple contiguous axial images were obtained in a CT of the cervical spine without contrast. Sagittal and coronal reformats were performed. FINDINGS: The vertebral bodies demonstrate normal height with normal alignment although there is again straightening of normal cervical lordosis which may be positional or secondary to muscle spasm. No evidence of acute fracture or subluxation.. Stable multilevel degenerative changes contributing to moderate degrees of neural foraminal narrowing bilaterally at C3-4 and on the right C4-5 and C5- 6. No prevertebral soft tissue swelling is seen. The posterior facets are well aligned. Normal alignment of the skull base with the cervical spine is seen. The lung apices show some apical paraseptal emphysematous changes more so on the right. IMPRESSION: No evidence of acute osseous abnormality of the cervical spine. Stable degenerative changes as above. . 03/27 04:18 ED course: EXAM: XR Right Humerus, 2 or More Views CLINICAL HISTORY: Injury TECHNIQUE: sp4 Frontal and lateral views of the right humerus. COMPARISON: No relevant prior studies available. FINDINGS: Bones/joints: Unremarkable. No acute fracture. No dislocation. Soft tissues: Unremarkable. IMPRESSION: No acute injury. . ED course: EXAM: XR Right Shoulder Complete, 2 or More Views CLINICAL HISTORY: Right shoulder injury. TECHNIQUE: Two or more views of the right shoulder. COMPARISON: No relevant prior studies available. FINDINGS: Bones/joints: Unremarkable. No acute fracture. No dislocation. Soft tissues: Unremarkable. IMPRESSION: No acute injury. . 04:20 Differential Diagnosis: cardiac arrhythmia, cerebrovascular accident, drug effect, sp4 emotional response, idiopathic syncope, pseudo seizure, seizure, transient ischemic attack. Data reviewed: vital signs, nurses notes, EMS record, old medical records, lab test result(s), EKG, radiologic studies, CT scan, plain films. Consideration of Admission/Observation Escalation of care including admission/observation considered. ED course: Stable for admission to Dr. Fall. 03/26 20:31 Order name: Basic Metabolic Panel; Complete Time: 23:54 sp4 03/26 20:31 Order name: CBC with Diff; Complete Time: 23:54 sp4 03/26 20:31 Order name: LFT's; Complete Time: 23:54 sp4 03/26 20:31 Order name: Magnesium; Complete Time: 23:54 sp4 03/26 20:31 Order name: NT PRO-BNP; Complete Time: 23:54 sp4 03/26 20:31 Order name: PT-INR; Complete Time: 23:54 sp4 03/26 20:31 Order name: Troponin HS; Complete Time: 23:54 sp4 03/26 20:54 Order name: Alcohol Level; Complete Time: 23:54 sp4 03/26 20:31 Order name: XRAY Chest (1 view); Complete Time: 23:54 sp4 03/26 20:54 Order name: CT Head C Spine; Complete Time: 23:54 sp4 03/26 23:41 Order name: Forearm Right XRAY sp4 03/27 00:33 Order name: Humerus Right XRAY sp4 03/27 00:34 Order name: Shoulder Right (2 View) XRAY sp4 03/26 20:31 Order name: Cardiac monitoring; Complete Time: 20:53 sp4 03/26 20:31 Order name: EKG - Nurse/Tech; Complete Time: 20:53 sp4 03/26 20:31 Order name: IV Saline Lock; Complete Time: 20:53 sp4 03/26 20:31 Order name: Labs collected and sent; Complete Time: 20:53 sp4 03/26 20:31 Order name: O2 Per Protocol; Complete Time: 20:53 sp4 03/26 20:31 Order name: O2 Sat Monitoring; Complete Time: 20:54 sp4 03/26 20:54 Order name: Dressing - Wound; Complete Time: 21:05 sp4 03/26 20:54 Order name: Gloves, Sterile; Complete Time: 21:06 sp4 03/26 20:54 Order name: Setup Suture Tray; Complete Time: 21:06 sp4 EC/25 21:00 Rate is 90 beats/min. Rhythm is irregularly irregular, A fib. QRS [place] is Normal. QRS sp4 interval is prolonged. QT interval is normal. No Q waves. T waves are Normal. No ST changes noted. Clinical impression: No evidence of ischemia. Interpreted by me. Reviewed by me. Administered Medications: 21:22 Drug: Boostrix Tdap IM 0.5 ml IM once; as a single dose Route: IM; Site: right deltoid; jj7 22:56 Follow up: Response: No adverse reaction jj7 21:22 Drug: morphine IVP or IV 4 mg IVP once over 4 mins Route: IVP; Infused Over: 4 mins; jj7 Site: right hand; 22:56 Follow up: Response: Pain is unchanged, physician notified jj7 21:22 Drug: Ondansetron IVP 4 mg IVP once; over 2 minutes Route: IVP; Site: right hand; jj7 22:56 Follow up: Response: No adverse reaction jj7 23:04 Drug: morphine IVP or IV 4 mg IVP once over 4 mins Route: IVP; Infused Over: 4 mins; jj7 Site: right wrist; 23:35 Follow up: Response: Pain is decreased jj7 03/27 00:10 Drug: Lidocaine Infiltration (1 %) 20 ml 20 ml Infiltration once; to bedside {Note: jj7 ADMIN BY DR SOLARES.} Volume: 20 ml; Route: Infiltration; 00:10 Drug: Lidocaine Infiltration (1 %) 20 ml 20 ml Infiltration once; to bedside {Note: jj7 ADMIN BY DR SOLARES.} Volume: 20 ml; Route: Infiltration; 01:22 Drug: HYDROcodone-acetaminophen PO 5 mg-325 mg 2 tabs PO once Route: PO; jj7 03:00 Follow up: Response: Marked relief of symptoms; Pain is decreased jj7 02:10 Drug: Ondansetron IVP 4 mg IVP once; over 2 minutes Route: IVP; Site: right wrist; jj7 02:40 Follow up: Response: Nausea is decreased jj7 05:44 Drug: metoCLOPramide IVP 10 mg IVP once; over 1 to 2 minutes Route: IVP; Site: left jj7 forearm; 06:00 Follow up: Response: Nausea is decreased jj7 Disposition Summary: 03/27/24 04:20 Hospitalization Ordered Notes: Hospitalization Status: Inpatient Admission sp4 Provider: Lasha Fall Location: Telemetry/[facility] (Inpatient) sp4 Condition: Fair sp4 Problem: new sp4 Symptoms: have improved sp4 Bed/Room Type: Standard sp4 Room Assignment: 208(03/27/24 04:42) Diagnosis - Acute congestive heart failure exacerbation, atrial fibrillation, syncope and sp4 collapse, posterior scalp injury, posterior scalp laceration, acute concussion Forms: - Medication Reconciliation Form sp4 - SBAR form sp4 - Leadership Thank You Letter sp4 Signatures: Dispatcher [employer] EDRosalba Galaviz RN RN kl Quique, EDWINA Merida RN lg3 Alejandro Mueller RN RN jj7 Hermann Allen MD MD sp4 Corrections: (The following items were deleted from the chart) 03/26 20:31 20:31 BASIC METABOLIC PANEL+C.LAB.BRZ ordered. EDMS EDMS 20:31 20:31 CBC+H.LAB.BRZ ordered. EDMS EDMS 20:31 20:31 HEPATIC FUNCTION+C.LAB.BRZ ordered. EDMS EDMS 20:31 20:31 MAGNESIUM+C.LAB.BRZ ordered. EDMS EDMS 20:31 20:31 PROBNP+C.LAB.BRZ ordered. EDMS EDMS 20:31 20:31 PROTIME (+INR)+COAG.LAB.BRZ ordered. EDMS EDMS 20:31 20:31 Troponin High Sensitivity+C.LAB.BRZ ordered. EDMS EDMS 20:31 20:31 Chest Single View+RAD.RAD.BRZ ordered. EDMS EDMS 03/27 04:42 04:20 sp4 [place]
[2024-03-27] MEDS ORDERED: METOCLOPRAMIDE 10 MG/2mL INJ ONE (05:43)
[2024-03-27] MEDS ORDERED: ALBUTEROL 2.5 MG/3 ML NEB SOL NEB PRN (06:01)
[2024-03-27] MEDS ORDERED: ACETAMINOPHEN 325 MG TABLET PO PRN (06:01)
[2024-03-27] MEDS ORDERED: ONDANSETRON 4 MG/2 ML VIAL IV PRN (06:01)
[2024-03-27] MEDS ORDERED: ZOLPIDEM TARTRATE 5 MG TABLET PO PRN (06:01)
--- NOTE | 2024-03-27 06:19 | RAD REPORT ---
EXAM: XR Right Shoulder Complete, 2 or More Views CLINICAL HISTORY: Right shoulder injury. TECHNIQUE: Two or more views of the right shoulder. COMPARISON: No relevant prior studies available. FINDINGS: Bones/joints: Unremarkable. No acute fracture. No dislocation. Soft tissues: Unremarkable. IMPRESSION: No acute injury. Electronically signed by: Umu Samayoa MD 03/27/2024 01:27 AM [facility] Due to temporary technical issues with the PACS/[employer] reporting system, reports are being tiffany d by the in-house radiologist without review as a courtesy to ensure prompt reporting the interpreting radiologist is fully responsible for the content of the report. Transcribed Date/Time: 03/27/2024 6:18 AM
--- NOTE | 2024-03-27 06:19 | RAD REPORT ---
EXAM: XR Right Humerus, 2 or More Views CLINICAL HISTORY: Injury TECHNIQUE: Frontal and lateral views of the right humerus. COMPARISON: No relevant prior studies available. FINDINGS: Bones/joints: Unremarkable. No acute fracture. No dislocation. Soft tissues: Unremarkable. IMPRESSION: No acute injury. Electronically signed by: Umu Samayoa MD 03/27/2024 01:26 AM [facility] Due to temporary technical issues with the PACS/[employer] reporting system, reports are being tiffany d by the in-house radiologist without review as a courtesy to ensure prompt reporting the interpreting radiologist is fully responsible for the content of the report. Transcribed Date/Time: 03/27/2024 6:19 AM
--- NOTE | 2024-03-27 06:20 | RAD REPORT ---
XR FOREARM RIGHT INDICATION: Arm pain COMPARISON: None TECHNIQUE: 2 views of the right elbow FINDINGS: BONES: No acute fracture or malalignment. No suspicious sclerotic or lytic lesion. SOFT TISSUE: Unremarkable. OTHER: None. IMPRESSION: No acute bony abnormality. Electronically signed by: Tianna Alonso MD 03/27/2024 12:[address] [facility] Due to temporary technical issues with the PACS/[employer] reporting system, reports are being tiffany d by the in-house radiologist without review as a courtesy to ensure prompt reporting the interpreting radiologist is fully responsible for the content of the report. Transcribed Date/Time: 03/27/2024 6:19 AM
[2024-03-27] MEDS: FUROSEMIDE 40 MG/4 ML VIAL IV SCH (08:48)
[2024-03-27] MEDS: HYDROCODONE/APAP 10/325 TAB PO PRN (08:59)
[2024-03-27] MEDS ORDERED: SALMETEROL IH PRN (11:36)
[2024-03-27] MEDS ORDERED: FLUTICASONE PROPIONATE IH PRN (11:36)
[2024-03-27] MEDS ORDERED: LEVALBUTEROL 0.63 MG/3 ML NEB NEB PRN (11:37)
--- NOTE | 2024-03-27 11:45 | P.HP ---
Certification for Inpatient Patient admitted to: Inpatient With expected LOS: >2 Midnights Patient will require the following post-hospital care: None Practitioner: I am a practitioner with admitting privileges, knowledge of patient current condition, hospital course, and medical plan of care. Services: Services provided to patient in accordance with Admission requirements found in Title 42 Section 412.3 of the Code of Federal Regulations Patient History Date of Service: 03/27/24 Primary Care Provider: Giancarlo Reason for admission: syncope, atrial fib History of Present Illness: Patient of Faina Mondragon NP. Admitted for syncope, she has a history of CAD, atrial fib and RA. The patient has been having near synope for the last several years. She has has a few seconds of dizziness. Can occur when sitting or at any time. She is usually has these episodes every 2-3 weeks. Yesterday she had a full syncopal event resulting in a fall and scalp laceration. She was brought to the ER. She has no fractures. elevated bnp with a clear chest xray. She did not have any warning symptoms of the syncope. She was admitted for the lacerations Allergies iodine Allergy (Verified 03/27/24 06:06) Hives povidone-iodine [From Betadine] Allergy (Verified 03/27/24 06:06) Hives Home Medications: Albuterol Sulfate [Proair Hfa] 8.5 gm IH TID PRN #90 hfa.aer.ad 04/25/17 Bupropion HCl [Wellbutrin] 150 mg PO DAILY 06/25/17 Fluticasone Propion/Salmeterol [Airduo Respiclick 113-14 Mcg] 1 each IH BID PRN 06/25/17 Sertraline [Zoloft*] 50 mg PO DAILY 06/25/17 Apixaban [Eliquis *] 5 mg PO BID 07/29/18 Furosemide 40 mg PO DAILY 06/02/21 Metoprolol Tartrate [Lopressor] 50 mg PO BID 06/02/21 Pantoprazole Sodium [Protonix] 40 mg PO DAILY 03/27/24 Tofacitinib Citrate [Xeljanz] 5 mg PO BID 03/27/24 predniSONE [Deltasone*] 20 mg PO DAILY 03/27/24 - Past Medical/Surgical History Has patient received pneumonia vaccine in the past: No Diabetic: No -: Chronic atrial fibrillation, chronic anti coagulation therapy -: Rheumatoid arthritis -: Hypertension -: Systolic CHF -: Mitral valve stenosis -: COPD -: Former tobacco use -: resp failure -: tonsillectomy -: c- section -: appendectomy -: tubal ligation Psychosocial/ Personal History: Patient is - Family History Mother -: Cancer, Other (see notes) Notes: M.S Father -: Heart disease, Cancer, Other (see notes) Notes: DVT's - Social History Smoking Status: Former smoker Alcohol use: Yes CD- Drugs: No Caffeine use: Yes Place of Residence: Home Review of Systems 10-point ROS is otherwise unremarkable Musculoskeletal: Arm Pain (right arm) Physical Examination - Vital Signs Temperature: 98.4 F Blood Pressure: 136/84 Pulse: 102 Respirations: 16 Pulse Ox (%): 91 - Physical Exam General: Alert, In no apparent distress HEENT: Atraumatic, PERRLA, Mucous membr. moist/pink, EOMI, Sclerae nonicteric Neck: Supple, 2+ carotid pulse no bruit, No LAD, Without JVD or thyroid abnormality Respiratory: Clear to auscultation bilaterally, Normal air movement Cardiovascular: Regular rate/rhythm, Normal S1 S2 Gastrointestinal: Normal bowel sounds, No tenderness Musculoskeletal: No tenderness Integumentary: No rashes Neurological: Normal gait, Normal speech, Normal strength at 5/5 x4 extr, Normal tone, Normal affect Lymphatics: No axilla or inguinal lymphadenopathy - Studies Laboratory Data (last 24 hrs) 03/26/24 03/26/24 03/26/24 20:45 20:45 20:45 WBC 9.20 Hgb 13.1 Hct 38.7 Plt Count 242 PT 12.2 INR 1.09 Sodium 135 L Potassium 3.0 L BUN 14 Creatinine 0.83 Glucose 125 H Magnesium 2.0 Total Bilirubin 0.3 AST 21 ALT 22 Alkaline Phosphatase 50 Assessment and Plan - Problems (Diagnosis) (1) Syncope Current Visit: No Status: Acute Plan: Will order a echo and carotid ultrasound. consult Dr. Srinivasan. She may need an outpatient ep study or pacemaker placement. especially if the near syncope is increasing in frequency or more syncopal episodes. Qualifiers: Syncope type: unspecified Qualified Code(s): R55 - Syncope and collapse (2) Atrial fibrillation Onset Date: 06/25/17 Current Visit: No Status: Chronic Plan: restart metoprolol. Will adjust as needed Qualifiers: Atrial fibrillation type: paroxysmal Qualified Code(s): I48.0 - Paroxysmal atrial fibrillation (3) CHF (congestive heart failure) Current Visit: No Status: Chronic Plan: Will switch her lasix to qday as is her home dosage Qualifiers: Qualified Code(s): I50.33 - Acute on chronic diastolic (congestive) heart failure (4) HTN (hypertension) Onset Date: 04/23/17 Current Visit: No Status: Chronic Plan: restart home meds Qualifiers: Hypertension type: primary hypertension (5) Hypokalemia Current Visit: Yes Status: Acute Plan: start her on electrolyte replacement protochols - Advance Directives Does patient have a Living Will: No Does patient have a Durable POA for Healthcare: No - Code Status/Comfort Care Code Status Assessed: No Physician Review: Patient Assessed, Agree with Above Assessment and Plan Critical Care: No Time Spent Managing Pts Care (In Minutes): 50
[2024-03-27 13:33] LABS: Specific Gravity 1.011 (1.005-1.030); Sqamous Epithelial <5 /HPF (None Seen); Urine Bacteria <20 /HPF (<20); Urine Bilirubin NEGATIVE (Negative); Urine Blood Trace (Negative); Urine Clarity Clear (Clear); Urine Color Light-Yellow (Yellow); Urine Culture Reflex Order NOT NEEDED; Urine Glucose NEGATIVE (Negative); Urine Ketones NEGATIVE (Negative); Urine Microscopic Reflex YN ORDER UMIC; Urine Mucus Slight /HPF (None Seen); Urine Nitrite NEGATIVE (Negative); Urine Protein NEGATIVE (Negative); Urine RBC <5 /HPF (None Seen); Urine Urobilinogen Normal (Normal); Urine WBC <5 /HPF (<5); Urine pH 5.5 (5.0-7.0)
[2024-03-27] MEDS: METOPROLOL TAR 50 MG TAB PO SCH (20:53)
[2024-03-27] MEDS: TOFACITINIB CITRATE 5 MG PO SCH (20:56)
[2024-03-27] MEDS ORDERED: IBUPROFEN 600 MG TAB PO PRN (21:58)
[2024-03-28 05:51] LABS: Absolute Eosinophils 0.1 K/uL (0-0.5); Absolute Lymphocytes (CBC) 1.8 K/uL (0.7-4.9); Absolute Monocytes 0.9 K/uL (0.1-1.3); Absolute Neutrophil 6.5 K/uL (1.8-8.0); Basophils % 0.1 % (0-1.3); Eosinophils % 1.2 % (0-4.4); MCHC 32.5 g/dL (32.0-36.0); MCV 92.3 fL (80-100); MPV 8.5 fL (7.6-11.3); Monocytes % 9.9 % (3.3-12.3); Neutrophils % 69.8 % (41.7-73.7); Platelets 237 thou/uL (152-406); RBC Red Blood Cell Count 4.01 M/uL (3.86-4.86); Red Cell Distribution Width 13.9 % (12.1-15.2)
[2024-03-28 05:53] VITALS: BMI 29.9
[2024-03-28 06:08] LABS: Albumin 3.5 g/dL (3.4-5.0); Albumin/Globulin Ratio 0.9 (1.1-1.8); Anion Gap 7.3 mEq/L (5.0-15.0); Bilirubin Total 0.5 mg/dL (0.2-1.0); Globulin 3.8 g/dL (2.3-3.5); Potassium 3.3 mEq/L (3.5-5.1); Protein, Total 7.3 g/dL (6.4-8.2); Troponin High Sensitivity 16.3 pg/mL (<58.9)
[2024-03-28 06:09] LABS: Magnesium 2.3 mg/dL (1.6-2.4); Thyroid Stimulating Hormone 1.39 uIU/mL (0.358-3.740)
--- NOTE | 2024-03-28 07:11 | RAD REPORT ---
EXAMINATION: US CAROTID DUPLEX CLINICAL INDICATION: , 69 years old. syncope, atrial fib. TECHNIQUE: Real-time grayscale, color flow and spectral Doppler sonographic images were obtained of t extracranial carotid system using a linear transducer. [id number]. COMPARISON: No prior exam. FINDINGS: RIGHT: Common carotid artery: 73 cm/s Internal carotid artery: 104 cm/s External carotid artery: 50 cm/s Right ICA/CCA ratio: 2 Plaque Mild Calcified and noncalcified Vertebral artery Antegrade LEFT: Common carotid artery: 71 cm/s Internal carotid artery: 104 cm/s External carotid artery: 46 cm/s lEFT ICA/CCA ratio: 1.4 Plaque Mild Calcified and noncalcified Vertebral artery Antegrade IMPRESSION: No hemodynamically significant stenosis (greater than 50%) within the extracranial internal carotid [facility].
[2024-03-28] MEDS: BUPROPRION HCL S.R. 150MG TAB PO SCH (08:38)
[2024-03-28] MEDS: POTASSIUM 25 MEQ EFFERV TAB PO ONE (08:38)
[2024-03-28] MEDS: PANTOPRAZOLE 40MG TABLET PO SCH (08:38)
[2024-03-28] MEDS: SERTRALINE HCL 50 MG TAB PO SCH (08:39)
[2024-03-28] MEDS: FUROSEMIDE 40 MG TABLET PO SCH (08:39)
--- NOTE | 2024-03-28 13:40 | EKG ---
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
--- NOTE | 2024-03-28 14:07 | P.DS ---
Admission Date: 03/27/24 Discharge Date: 03/28/24 Primary Care Provider: Giancarlo Disposition: ROUTINE DISCHARGE Reason for Admission: syncope, atrial fib - Problems (1) Syncope Current Visit: No Status: Acute Qualifiers: Syncope type: unspecified Qualified Code(s): R55 - Syncope and collapse (2) Atrial fibrillation Onset Date: 06/25/17 Current Visit: No Status: Chronic Qualifiers: Atrial fibrillation type: paroxysmal Qualified Code(s): I48.0 - Paroxysmal atrial fibrillation (3) CHF (congestive heart failure) Current Visit: No Status: Chronic Qualifiers: Qualified Code(s): I50.33 - Acute on chronic diastolic (congestive) heart failure (4) HTN (hypertension) Onset Date: 04/23/17 Current Visit: No Status: Chronic Qualifiers: Hypertension type: primary hypertension (5) Hypokalemia Current Visit: Yes Status: Acute (6) Benign positional paroxysmal vertigo involving posterior canal Onset Date: ~03/28/24 Current Visit: Yes Status: Acute Brief History of Present Illness: Patient of Faina Mondragon NP. Admitted for syncope, she has a history of CAD, atrial fib and RA. The patient has been having near synope for the last several years. She has has a few seconds of dizziness. Can occur when sitting or at any time. She is usually has these episodes every 2-3 weeks. Yesterday she had a full syncopal event resulting in a fall and scalp laceration. She was brought to the ER. She has no fractures. elevated bnp with a clear chest xray. She did not have any warning symptoms of the syncope. She was admitted for the lacerations Hospital Course: Patient came into the hospital with syncope. She has a history of afib. She had negative carotids and echo is pending reading. will have her seen by Cardiolog y. The patient most likely needs an outpatient work up. such as a holter monitor or an EP study. She has been having mostly a few seconds of dizziness. Today she states she has been having diaphoresis as well. If ok with cardiology we can discharge her home. Have her follow up with her PCP Mrs Mondragon as well as cardiology. Thank you for allowing me take part in her care. Vital Signs/Physical Exam: Temp Pulse Resp BP Pulse Ox 97.9 F 81 16 115/74 90 L 03/28/24 12:00 03/28/24 12:00 03/28/24 12:00 03/28/24 12:00 03/28/24 12:00 General: Alert, In no apparent distress HEENT: Atraumatic, PERRLA, EOMI Neck: Supple, JVD not distended Respiratory: Clear to auscultation bilaterally, Normal air movement Cardiovascular: Regular rate/rhythm, Normal S1 S2 Gastrointestinal: Normal bowel sounds, No tenderness Musculoskeletal: No tenderness Integumentary: No rashes Neurological: Normal speech, Normal tone, Normal affect Lymphatics: No axilla or inguinal lymphadenopathy Laboratory Data at Discharge: WBC 9.30 thou/uL (4.3-10.9) 03/28/24 05:05 Hgb 12.0 g/dL (12.0-15.0) 03/28/24 05:05 Hct 37.0 % (36.0-45.0) 03/28/24 05:05 Plt Count 237 thou/uL (152-406) 03/28/24 05:05 PT 12.2 SECONDS (9.4-12.5) 03/26/24 20:45 INR 1.09 03/26/24 20:45 Sodium 133 mEq/L (136-145) L 03/28/24 05:05 Potassium 3.3 mEq/L (3.5-5.1) L 03/28/24 05:05 BUN 18 mg/dL (7-18) 03/28/24 05:05 Creatinine 0.76 mg/dL (0.55-1.02) 03/28/24 05:05 Glucose 117 mg/dL (74-106) H 03/28/24 05:05 Magnesium 2.3 mg/dL (1.6-2.4) 03/28/24 05:05 Total Bilirubin 0.5 mg/dL (0.2-1.0) 03/28/24 05:05 AST 16 U/L (15-37) 03/28/24 05:05 ALT 18 U/L (13-56) 03/28/24 05:05 Alkaline Phosphatase 46 U/L (45-117) 03/28/24 05:05 Home Medications: Albuterol Sulfate [Proair Hfa] 8.5 gm IH TID PRN #90 hfa.aer.ad 04/25/17 Bupropion HCl [Wellbutrin] 150 mg PO DAILY 06/25/17 Fluticasone Propion/Salmeterol [Airduo Respiclick 113-14 Mcg] 1 each IH BID PRN 06/25/17 Sertraline [Zoloft*] 50 mg PO DAILY 06/25/17 Apixaban [Eliquis *] 5 mg PO BID 07/29/18 Furosemide 40 mg PO DAILY 06/02/21 Metoprolol Tartrate [Lopressor] 50 mg PO BID 06/02/21 Pantoprazole Sodium [Protonix] 40 mg PO DAILY 03/27/24 Tofacitinib Citrate [Xeljanz] 5 mg PO BID 03/27/24 predniSONE [Deltasone*] 20 mg PO DAILY 03/27/24 Diet: AHA Activity: Ad yariel Followup: Flori Mondragon FNP [OUTSIDE PHYSICIAN] - 1 Week Carmine Srinivasan MD [ACTIVE - CAN ADMIT] - 1-2 Weeks Time spent managing pt's care (in minutes): 20
[2024-03-29 06:25] LABS: Absolute Eosinophils 0.2 K/uL (0-0.5); Absolute Lymphocytes (CBC) 1.5 K/uL (0.7-4.9); Absolute Neutrophil 4.8 K/uL (1.8-8.0); Basophils % 0.2 % (0-1.3); Eosinophils % 2.4 % (0-4.4); Hematocrit 42.9 % (36.0-45.0); Lymphocytes % 20.2 % (15.3-44.8); MCH 30.2 pg (27.0-35.0); MCHC 32.7 g/dL (32.0-36.0); MCV 92.4 fL (80-100); MPV 8.1 fL (7.6-11.3); Monocytes % 13.1 % (3.3-12.3); Neutrophils % 64.1 % (41.7-73.7); Platelets 159 thou/uL (152-406); RBC Red Blood Cell Count 4.65 M/uL (3.86-4.86)
[2024-03-29 06:35] LABS: Albumin 3.3 g/dL (3.4-5.0); Albumin/Globulin Ratio 0.9 (1.1-1.8); Anion Gap 5.9 mEq/L (5.0-15.0); Bilirubin Total 0.5 mg/dL (0.2-1.0); Globulin 3.6 g/dL (2.3-3.5); Potassium 3.9 mEq/L (3.5-5.1); Protein, Total 6.9 g/dL (6.4-8.2)
--- NOTE | 2024-03-29 13:01 | P.PN ---
Subjective Date of Service: 03/29/24 Primary Care Provider: Giancarlo Chief Complaint: syncope, atrial fib Subjective: No new changes Review of Systems 10-point ROS is otherwise unremarkable Neurological: Other (dizziness) Physical Examination - Vital Signs Temperature: 98.3 F Blood Pressure: 129/85 Pulse: 83 Respirations: 16 Pulse Ox (%): 97 - Physical Exam General: Alert, In no apparent distress HEENT: Atraumatic, PERRLA, EOMI Neck: Supple, JVD not distended Respiratory: Clear to auscultation bilaterally, Normal air movement Cardiovascular: Regular rate/rhythm, Normal S1 S2 Gastrointestinal: Normal bowel sounds, No tenderness Musculoskeletal: No tenderness Integumentary: No rashes Neurological: Normal speech, Normal tone, Normal affect Lymphatics: No axilla or inguinal lymphadenopathy Assessment And Plan - Current Problems (Diagnosis) (1) Syncope Current Visit: No Status: Acute Plan: Will order a echo and carotid ultrasound. consult Dr. Srinivasan. She may need an outpatient ep study or pacemaker placement. especially if the near syncope is increasing in frequency or more syncopal episodes. Qualifiers: Syncope type: unspecified Qualified Code(s): R55 - Syncope and collapse (2) Atrial fibrillation Onset Date: 06/25/17 Current Visit: No Status: Chronic Plan: restart metoprolol. Will adjust as needed Qualifiers: Atrial fibrillation type: paroxysmal Qualified Code(s): I48.0 - Paroxysmal atrial fibrillation (3) CHF (congestive heart failure) Current Visit: No Status: Chronic Plan: Will switch her lasix to qday as is her home dosage Qualifiers: Qualified Code(s): I50.33 - Acute on chronic diastolic (congestive) heart failure (4) HTN (hypertension) Onset Date: 04/23/17 Current Visit: No Status: Chronic Plan: restart home meds Qualifiers: Hypertension type: primary hypertension (5) Hypokalemia Current Visit: Yes Status: Acute Plan: start her on electrolyte replacement protochols (6) Benign positional paroxysmal vertigo involving posterior canal Onset Date: ~03/28/24 Current Visit: Yes Status: Acute Discharge Plan: Home Plan to discharge in: 24 Hours - Code Status/Comfort Care Code Status Assessed: No Physician Review: Patient Assessed, Agree with Above Assessment and Plan Critical Care: No Time Spent Managing PTS Care (In Minutes): 20
[2024-03-30 00:59] VITALS: O2SAT 96
[2024-03-30 06:51] LABS: Absolute Eosinophils 0.2 K/uL (0-0.5); Absolute Lymphocytes (CBC) 1.8 K/uL (0.7-4.9); Absolute Monocytes 1.2 K/uL (0.1-1.3); Absolute Neutrophil 6.2 K/uL (1.8-8.0); Basophils % 0.3 % (0-1.3); Eosinophils % 2.2 % (0-4.4); Hematocrit 38.1 % (36.0-45.0); Hemoglobin 12.6 g/dL (12.0-15.0); Lymphocytes % 19.2 % (15.3-44.8); MCH 30.4 pg (27.0-35.0); MCHC 33.2 g/dL (32.0-36.0); MCV 91.7 fL (80-100); Monocytes % 12.8 % (3.3-12.3); Neutrophils % 65.5 % (41.7-73.7); Nucleated RBC Absolute Count 0.1 (0-0); Nucleated Red Blood Cells % 0.7 % (0-0); Platelets 233 thou/uL (152-406); RBC Red Blood Cell Count 4.15 M/uL (3.86-4.86); Red Cell Distribution Width 13.7 % (12.1-15.2)
[2024-03-30 07:05] LABS: Albumin 3.3 g/dL (3.4-5.0); Albumin/Globulin Ratio 0.8 (1.1-1.8); Anion Gap 8.6 mEq/L (5.0-15.0); Bilirubin Total 0.6 mg/dL (0.2-1.0); Globulin 3.9 g/dL (2.3-3.5); Potassium 3.6 mEq/L (3.5-5.1); Protein, Total 7.2 g/dL (6.4-8.2)
[2024-03-30 12:20] VITALS: BP 139/63; TEMP 97.5
--- NOTE | 2024-03-30 12:24 | P.DS ---
Admission Date: 03/27/24 Discharge Date: 03/30/24 Primary Care Provider: Giancarlo Disposition: ROUTINE DISCHARGE Discharge Condition: GOOD Reason for Admission: syncope, atrial fib - Problems (1) Syncope Current Visit: No Status: Acute Qualifiers: Syncope type: unspecified Qualified Code(s): R55 - Syncope and collapse (2) Atrial fibrillation Onset Date: 06/25/17 Current Visit: No Status: Chronic Qualifiers: Atrial fibrillation type: paroxysmal Qualified Code(s): I48.0 - Paroxysmal atrial fibrillation (3) CHF (congestive heart failure) Current Visit: No Status: Chronic Qualifiers: Qualified Code(s): I50.33 - Acute on chronic diastolic (congestive) heart failure (4) HTN (hypertension) Onset Date: 04/23/17 Current Visit: No Status: Chronic Qualifiers: Hypertension type: primary hypertension (5) Hypokalemia Current Visit: Yes Status: Acute (6) Benign positional paroxysmal vertigo involving posterior canal Onset Date: ~03/28/24 Current Visit: Yes Status: Acute Brief History of Present Illness: Patient of Faina Mondragon NP. Admitted for syncope, she has a history of CAD, atrial fib and RA. The patient has been having near synope for the last several years. She has has a few seconds of dizziness. Can occur when sitting or at any time. She is usually has these episodes every 2-3 weeks. Yesterday she had a full syncopal event resulting in a fall and scalp laceration. She was brought to the ER. She has no fractures. elevated bnp with a clear chest xray. She did not have any warning symptoms of the syncope. She was admitted for the lacerations Hospital Course: Patient came into the hospital with syncope. She has a history of afib. She had negative carotids and echo is pending reading. will have her seen by Cardiology. The patient most likely needs an outpatient work up. such as a holter monitor or an EP study. She has been having mostly a few seconds of dizziness. Today she states she has been having diaphoresis as well. If ok with cardiology we can discharge her home. Have her follow up with her PCP Mrs Mondragon as well as cardiology. Thank you for allowing me take part in her care. 03/[address] Triana wanted to observe the patient over the weekend. Will discharge her home today. The plan is her to Go to Dr. Triana's office in the morning for Holtor monitor placement Vital Signs/Physical Exam: Temp Pulse Resp BP Pulse Ox 97.5 F 98 H 14 139/63 95 03/30/24 12:00 03/30/24 12:00 03/30/24 12:00 03/30/24 12:00 03/30/24 12:00 General: Alert, In no apparent distress HEENT: Atraumatic, PERRLA, EOMI Neck: Supple, JVD not distended Respiratory: Clear to auscultation bilaterally, Normal air movement Cardiovascular: Regular rate/rhythm, Normal S1 S2 Gastrointestinal: Normal bowel sounds, No tenderness Musculoskeletal: No tenderness Integumentary: No rashes Neurological: Normal speech, Normal tone, Normal affect Lymphatics: No axilla or inguinal lymphadenopathy Laboratory Data at Discharge: WBC 9.40 thou/uL (4.3-10.9) 03/30/24 06:33 Hgb 12.6 g/dL (12.0-15.0) D 03/30/24 06:33 Hct 38.1 % (36.0-45.0) 03/30/24 06:33 Plt Count 233 thou/uL (152-406) D 03/30/24 06:33 PT 12.2 SECONDS (9.4-12.5) 03/26/24 20:45 INR 1.09 03/26/24 20:45 Sodium 134 mEq/L (136-145) L 03/30/24 06:33 Potassium 3.6 mEq/L (3.5-5.1) 03/30/24 06:33 BUN 16 mg/dL (7-18) 03/30/24 06:33 Creatinine 0.74 mg/dL (0.55-1.02) 03/30/24 06:33 Glucose 113 mg/dL (74-106) H 03/30/24 06:33 Magnesium 2.3 mg/dL (1.6-2.4) 03/28/24 05:05 Total Bilirubin 0.6 mg/dL (0.2-1.0) 03/30/24 06:33 AST 18 U/L (15-37) 03/30/24 06:33 ALT 18 U/L (13-56) 12/29/24 06:33 Alkaline Phosphatase 46 U/L (45-117) 03/30/24 06:33 Home Medications: Albuterol Sulfate [Proair Hfa] 8.5 gm IH TID PRN #90 hfa.aer.ad 04/25/17 Bupropion HCl [Wellbutrin] 150 mg PO DAILY 06/25/17 Fluticasone Propion/Salmeterol [Airduo Respiclick 113-14 Mcg] 1 each IH BID PRN 06/25/17 Sertraline [Zoloft*] 50 mg PO DAILY 06/25/17 Apixaban [Eliquis *] 5 mg PO BID 07/29/18 Furosemide 40 mg PO DAILY 06/02/21 Metoprolol Tartrate [Lopressor] 50 mg PO BID 06/02/21 Pantoprazole Sodium [Protonix] 40 mg PO DAILY 03/27/24 Tofacitinib Citrate [Xeljanz] 5 mg PO BID 03/27/24 predniSONE [Deltasone*] 20 mg PO DAILY 03/27/24 Diet: AHA Activity: Ad yariel Followup: Carmine Srinivasan MD [ACTIVE - CAN ADMIT] - 1-2 Weeks Flori Mondragon FNP [OUTSIDE PHYSICIAN] - 1 Week Time spent managing pt's care (in minutes): 30
--- NOTE | 2024-04-01 07:18 | ECHO ---
HEIGHT: 5 ft 10 in WEIGHT: 208 lb 14.4 oz DATE OF STUDY: 03/28/[address]: Lasha Fall MD 2-DIMENSIONAL: YES M.MODE: YES DOPPLER: YES COLOR FLOW: YES TDS: NO PORTABLE: YES DEFINITY: NO BUBBLE STUDY: NO DIAGNOSIS: ATRIAL FIBRILLATION, SYNCOPE CARDIAC HISTORY: CATHERIZATION:YES SURGERY: YES PROSTHETIC VALVE: YES PACEMAKER: NO MEASUREMENTS (cm) DIASTOLIC (NORMALS) SYSTOLIC (NORMALS) IVSd 1.3 (0.6-1.2) LA Diam 4.6 (1.9-4.0) LVEF 50-55% LVIDd 3.7 (3.5-5.7) LVIDs 2.9 (2.0-3.5) %FS 19% LVPWd 1.4 (0.6-1.2) Ao Diam 2.9 (2.0-3.7) 2 DIMENSIONAL ASSESSMENT: RIGHT ATRIUM: NORMAL LEFT ATRIUM: SEVERELY DILATED RIGHT VENTRICLE: NORMAL LEFT VENTRICLE: NORMAL TRICUSPID VALVE: MILD TRICUSPID REGURGITATION MITRAL VALVE: STATUS POST REPLACEMENT PULMONIC VALVE: NORMAL AORTIC VALVE: NORMAL PERICARDIAL EFFUSION: NONE AORTIC ROOT: NORMAL LEFT VENTRICULAR WALL MOTION: NORMAL. DOPPLER/COLOR FLOW: SEE BELOW. COMMENTS: 1. NORMAL LEFT VENTRICULAR EJECTION FRACTION 50-60%. ATRIAL FIBRILLATION. 2. SEVERELY DILATED LEFT ATRIUM. 3. MILD TRICUSPID REGURGITATION. TECHNOLOGIST: ROLAND SALMON
== END 2024-03-30 15:05 | disposition home or self-care (01) | DRG 981 ==
LOC: ER 20:15 → 2ND 03-27 04:21
PROVIDERS: ADMIT Internal Medicine; ATTEND Internal Medicine
PROC: 0JQ00ZZ Repair Scalp Subcutaneous Tissue and Fascia, Open Approach (ICD-10-PCS; principal; 2024-03-27)
DX: I11.0 Hypertensive heart disease with heart failure (principal); I50.23 Acute on chronic systolic (congestive) heart failure; I48.0 Paroxysmal atrial fibrillation; E87.6 Hypokalemia; H81.10 Benign paroxysmal vertigo, unspecified ear; M06.9 Rheumatoid arthritis, unspecified; M79.631 Pain in right forearm; J44.9 Chronic obstructive pulmonary disease, unspecified; I25.10 Atherosclerotic heart disease of native coronary artery without angina pectoris; S01.01XA Laceration without foreign body of scalp, initial encounter; R55 Syncope and collapse; Z95.2 Presence of prosthetic heart valve; Z88.8 Allergy status to other drugs, medicaments and biological substances; Z79.01 Long term (current) use of anticoagulants; Z90.49 Acquired absence of other specified parts of digestive tract; Z79.52 Long term (current) use of systemic steroids; Z28.310 Unvaccinated for COVID-19; Z79.899 Other long term (current) drug therapy; Z87.891 Personal history of nicotine dependence; W18.30XA Fall on same level, unspecified, initial encounter; Y99.9 Unspecified external cause status; Y93.9 Activity, unspecified; Y92.000 Kitchen of unspecified non-institutional (private) residence as the place of occurrence of the external cause
CPT/HCPCS: 12032; 36415; 70450; 71045; 72125; 80048; 80053; 80076; 81001; 82077; 83735; 83880; 84132; 84443; 84484; 85025; 85610; 93005; 93306; 93880; 96372; 99285; J1940; J2003; J2405; J2765

== ENCOUNTER 2024-08-19 09:19 | Emergency (ER) | payer OTHER ==
[2024-08-19 10:16] LABS: Absolute Basophils 0.1 K/uL (0-0.5); Absolute Eosinophils 0.5 K/uL (0-0.5); Absolute Lymphocytes (CBC) 2.6 K/uL (0.7-4.9); Absolute Monocytes 1.6 K/uL (0.1-1.3); Absolute Neutrophil 7.6 K/uL (1.8-8.0); Basophils % 0.6 % (0-1.3); Eosinophils % 3.8 % (0-4.4); Hemoglobin 12.7 g/dL (12.0-15.0); MCH 31.1 pg (27.0-35.0); MCHC 34.4 g/dL (32.0-36.0); MCV 90.4 fL (80-100); MPV 8.9 fL (7.6-11.3); Monocytes % 12.8 % (3.3-12.3); Neutrophils % 61.8 % (41.7-73.7); Platelets 188 thou/uL (152-406); Red Cell Distribution Width 14.3 % (12.1-15.2)
[2024-08-19 10:23] LABS: PT Prothrombin Time 13.3 SECONDS (10-13.0); Protime INR 1.18
[2024-08-19 10:34] LABS: ALT/SGPT 21 U/L (13-56); AST/SGOT 19 U/L (15-37); Albumin 3.6 g/dL (3.4-5.0); Albumin/Globulin Ratio 0.9 (1.1-1.8); Alkaline Phosphatase 65 U/L (45-117); Anion Gap 13.4 mEq/L (5.0-15.0); BUN Blood Urea Nitrogen 22 mg/dL (7-18); Bicarbonate 25 mEq/L (21-32); Bilirubin Total 0.5 mg/dL (0.2-1.0); Globulin 4.2 g/dL (2.3-3.5); Glomerular Filtration Rate 58 ml/min (=/>90); Glucose Level 103 mg/dL (74-106); Magnesium 1.8 mg/dL (1.6-2.4); NT PRO-BNP 605 pg/mL (<125); Potassium 3.4 mEq/L (3.5-5.1); Protein, Total 7.8 g/dL (6.4-8.2); Sodium Level 136 mEq/L (136-145); Troponin High Sensitivity 9.4 pg/mL (<58.9)
[2024-08-19 10:37] LABS: Bilirubin Direct < 0.2 mg/dL (0-0.2); Bilirubin Indirect, Calculated 0.3 mg/dL (0.2-0.8)
--- NOTE | 2024-08-19 10:45 | RAD REPORT ---
Procedure: Chest Single View HISTORY: Shortness of breath COMPARISON: 2023 FINDINGS: The lungs appear clear of acute infiltrate. No significant pleural effusion noted. The heart is moderately enlarged. Post surgical changes involve the chest. Pacemaker leads in place.. IMPRESSION: No acute abnormality is displayed.
--- NOTE | 2024-08-19 10:54 | ER ---
Nurse's Notes [facility] Jacy Name: Celsa Lorenzo Age: 69 yrs Sex: Female : 1955 Arrival Date: 08/19/2024 Time: :19 Bed 8 Private MD: Diagnosis: COPD exacerbation Presentation: 08/19 09:34 Chief complaint: Patient states: cough and SOB after getting covid 2 weeks ago. Denies ss fever. Coronavirus screen: Client denies travel out of the [place] in the last 14 days. Client presents with at least one sign or symptom that may indicate coronavirus-19. Standard/surgical mask placed on the client. Ebola Screen: Patient denies exposure to infectious person. Patient denies travel to an Ebola-affected area in the 21 days before illness onset. Initial Sepsis Screen: Does the patient meet any 2 criteria? No. Patient's initial sepsis screen is negative. Does the patient have a suspected source of infection? No. Patient's initial sepsis screen is negative. Risk Assessment: Do you want to hurt yourself or someone else? Patient reports no desire to harm self or others. Onset of symptoms was July 2024. 09:34 Method Of Arrival: Ambulatory ss 09:34 Acuity: MAIXMO 3 ss Triage Assessment: 09:35 General: Appears in no apparent distress. Behavior is cooperative, appropriate for age, bp anxious. Pain: Denies pain. EENT: No deficits noted. Neuro: No deficits noted. Cardiovascular: No deficits noted. Respiratory: Reports shortness of breath cough that is Onset: The symptoms/episode began/occurred at an unknown time. the patient has mild shortness of breath. GI: No signs and/or symptoms were reported involving the gastrointestinal system. : No signs and/or symptoms were reported regarding the genitourinary system. Derm: No deficits noted. Musculoskeletal: No deficits noted. Historical: - Allergies: 09:35 Betadine; ss 09:35 Iodine; Topical only; ss - PMHx: 09:35 Atrial Fib; Vulva CA -chemo and radiation; Depression; cardioversion; ss - PSHx: 09:35 Appendectomy; section; Cholecystectomy; mitral and tricupid valve ss replacement.; Tonsillectomy; tubal ligation; - Immunization history:: Client reports having NOT received the Covid vaccine. - Infectious Disease History:: Denies. - Social history:: Smoking status: Patient denies any tobacco usage or history of. Screenin:36 [facility] ED Fall Risk Assessment (Adult) History of falling in the last 3 months, bp including since admission No falls in past 3 months (0 pts) Confusion or Disorientation No (0 pts) Intoxicated or Sedated No (0 pts) Impaired Gait No (0 pts) Mobility Assist Device Used No (0 pt) Altered Elimination No (0 pt) Score/Fall Risk Level 0 - 2 = Low Risk Oriented to surroundings. Abuse screen: Denies threats or abuse. Denies injuries from another. Nutritional screening: No deficits noted. Tuberculosis screening: No symptoms or risk factors identified. Assessment: 11:05 Reassessment: D/C pending [facility]. ph 11:36 Cardiovascular: Rhythm is sinus rhythm. Respiratory: Airway is patent Respiratory bp effort is even, unlabored, Breath sounds are clear bilaterally. Vital Signs: 09:34 BP 135 / 68; Pulse 64; Resp 22; Temp 98.2(O); Pulse Ox 98% on R/A; Weight 93.89 kg; ss Height 5 ft. 9 in. ; Pain 0/10; 11:36 BP 141 / 75; Pulse 67; Resp 20; Pulse Ox 98% ; bp 09:34 Body Mass Index 30.57 (93.89 kg, 175.26 cm) ss 09:34 Pain Scale: Adult ss ED Course: 09:20 Patient arrived in ED. im 09:25 Radha Gardner MD is Attending Physician. sp3 09:35 Triage completed. ss 09:35 Arm band placed on right wrist. ss 09:52 Daron Thayer, EDWINA is Primary Nurse. bp 09:59 Inserted saline lock: 20 gauge in right forearm, using aseptic technique. Blood bp collected. Flushed with 10 mL NS. 10:00 Initial lab(s) drawn, by me, sent to lab. First set of blood cultures drawn by me. bp 10:38 XRAY Chest (1 view) In Process Unspecified. EDMS 11:36 Patient has correct armband on for positive identification. bp 11:36 No provider procedures requiring assistance completed. IV discontinued, intact, bp bleeding controlled, No redness/swelling at site. Pressure dressing applied. Administered Medications: 11:06 Drug: DuoNeb Nebulize (3:1) (2.5 mg - 0.5 mg) 3 ml Nebulizer once Route: Nebulizer; ph 11:38 Follow up: Response: No adverse reaction bp Medication: 11:36 VIS not applicable for this client. bp Outcome: 10:54 Discharge ordered by MD. [email or web address] 11:36 Discharged to home ambulatory, bp 11:36 Condition: stable 11:36 Discharge instructions given to patient, Instructed on discharge instructions, follow up and referral plans. medication usage, Demonstrated understanding of instructions, follow-up care, medications, Prescriptions given X 2, 11:38 Patient left the ED. bp Signatures: Dispatcher [employer] EDMS Nuvia Smiley RN RN Krystina Jean RN RN Daron Thayer RN RN bp Radha Gardner MD MD sp3 Rachel Buckner
--- NOTE | 2024-08-19 10:54 | EDPHYS ---
Physician Documentation [facility] Name: Celsa Lorenzo Age: 69 yrs Sex: Female : 1955 Arrival Date: 08/19/2024 Time: 09:19 Bed 8 Private MD: ED Physician Radha Gardner HPI: 08/19 10:02 This 69 yrs old Female presents to ER via Ambulatory with complaints of Shortness Of sp3 Breath. 10:02 69-year-old female with history of atrial fibrillation, prior chemoradiation secondary sp3 to vulval cancer, COPD, now presents to the ED with chief complaint cough and congestion and shortness of breath. Patient was recently diagnosed with COVID-19 3 weeks ago and she states that she "has not been the same since then". Patient was seen at her nurse practitioner office who then called us secondary to her referring patient to us for evaluation of possible pneumonia. Patient denies any fever, productive cough (dry cough only), abdominal pain, vomiting, diarrhea, rash, bleeding or any other signs or symptoms on ROS at this time. She denies any prolonged immobilization, prior DVT or PE, known sick contacts, travel history or any other related history at this time.. Historical: - Allergies: 09:35 Betadine; ss 09:35 Iodine; Topical only; ss - PMHx: 09:35 Atrial Fib; Vulva CA -chemo and radiation; Depression; cardioversion; ss - PSHx: 09:35 Appendectomy; section; Cholecystectomy; mitral and tricupid valve ss replacement.; Tonsillectomy; tubal ligation; - Immunization history:: Client reports having NOT received the Covid vaccine. - Infectious Disease History:: Denies. - Social history:: Smoking status: Patient denies any tobacco usage or history of. ROS: 10:04 Constitutional: Negative for fever, chills, and weight loss, Eyes: Negative for injury, sp3 pain, redness, and discharge, ENT: Negative for injury, pain, and discharge, Neck: Negative for injury, pain, and swelling, Cardiovascular: Negative for chest pain, palpitations, and edema, Abdomen/GI: Negative for abdominal pain, nausea, vomiting, diarrhea, and constipation, Back: Negative for injury and pain, MS/Extremity: Negative for injury and deformity, Skin: Negative for injury, rash, and discoloration, Neuro: Negative for headache, weakness, numbness, tingling, and seizure, Psych: Negative for depression, anxiety, suicide ideation, homicidal ideation, and hallucinations, Allergy/Immunology: Negative for hives, rash, and allergies, Endocrine: Negative for neck swelling, polydipsia, polyuria, polyphagia, and marked weight changes, Hematologic/Lymphatic: Negative for swollen nodes, abnormal bleeding, and unusual bruising, 10:04 All other systems are negative, Exam: 10:04 Constitutional: This is a well developed, well nourished patient who is awake, alert, sp3 and in no acute distress. Head/Face: Normocephalic, atraumatic. Eyes: Pupils equal round and reactive to light, extra-ocular motions intact. Lids and lashes normal. Conjunctiva and sclera are non-icteric and not injected. Cornea within normal limits. Periorbital areas with no swelling, redness, or edema. Neck: Trachea midline, no thyromegaly or masses palpated, and no cervical lymphadenopathy. Supple, full range of motion without nuchal rigidity, or vertebral point tenderness. No Meningismus. Chest/axilla: Normal chest wall appearance and motion. Nontender with no deformity. No lesions are appreciated. Cardiovascular: Regular rate and rhythm with a normal S1 and S2. No gallops, murmurs, or rubs. Normal PMI, no JVD. No pulse deficits. Abdomen/GI: Soft, non-tender, with normal bowel sounds. No distension or tympany. No guarding or rebound. No evidence of tenderness throughout. Back: No spinal tenderness. No costovertebral tenderness. Full range of motion. Skin: Warm, dry with normal turgor. Normal color with no rashes, no lesions, and no evidence of cellulitis. MS/ Extremity: Pulses equal, no cyanosis. Neurovascular intact. Full, normal range of motion. Neuro: Awake and alert, GCS 15, oriented to person, place, time, and situation. Cranial nerves II-XII grossly intact. Motor strength 5/5 in all extremities. Sensory grossly intact. Cerebellar exam normal. Normal gait. Psych: Awake, alert, with orientation to person, place and time. Behavior, mood, and affect are within normal limits. 10:04 Respiratory: Active cough noted dry in nature with scattered wheezes. Respiratory rate 22. Room air pulse oxygenation 98%., 10:47 ECG was reviewed by the Attending Physician. Paced rhythm at 60 bpm 3 Vital Signs: 09:34 BP 135 / 68; Pulse 64; Resp 22; Temp 98.2(O); Pulse Ox 98% on R/A; Weight 93.89 kg; ss Height 5 ft. 9 in. ; Pain 0/10; 11:36 BP 141 / 75; Pulse 67; Resp 20; Pulse Ox 98% ; bp 09:34 Body Mass Index 30.57 (93.89 kg, 175.26 cm) ss 09:34 Pain Scale: Adult ss MDM: 09:39 Medical Screening Exam initiated sp3 10:04 Data reviewed: vital signs, nurses notes, lab test result(s), EKG, radiologic studies. 3 ED course: 69-year-old female with cough and shortness of breath for several weeks. Differential diagnosis includes ongoing viral illness/COVID-19 sequela, influenza, bronchitis, pneumonia, ACS, CHF, among others. Patient had negative COVID, flu and RSV test at clinic prior to arrival. Workup will include EKG, chest x-ray and general labs including cultures and nebulizer DuoNeb for symptomatic control. Further interventions as indicated.. 10:53 ED course: Chest x-ray negative and labs without significant findings. Will discharge 3 home with diagnosis COPD exacerbation on steroids and antibiotics. Patient has nebulizer at home.. 05 09:50 Order name: Basic Metabolic Panel; Complete Time: 10:47 3 08/19 09:50 Order name: CBC with Diff; Complete Time: 10:47 3 08/19 09:50 Order name: LFT's; Complete Time: 10:47 sp3 08/19 09:50 Order name: Magnesium; Complete Time: 10:47 3 08/19 09:50 Order name: NT PRO-BNP; Complete Time: 10:47 3 08/19 09:50 Order name: PT-INR; Complete Time: 10:47 3 08/19 09:50 Order name: Troponin HS; Complete Time: 10:47 3 08/19 09:59 Order name: Blood Culture Adult (2) 3 08/19 10:01 Order name: Lactate w/ 2H reflex if indic. bp 08/19 09:50 Order name: XRAY Chest (1 view); Complete Time: 10:47 sp3 08/19 09:50 Order name: Cardiac monitoring; Complete Time: 10:30 sp3 08/19 09:50 Order name: EKG - Nurse/Tech; Complete Time: 10:27 sp3 08/19 09:50 Order name: IV Saline Lock; Complete Time: 09:59 sp3 08/19 09:50 Order name: Labs collected and sent; Complete Time: 09:59 sp3 08/19 09:50 Order name: O2 Per Protocol; Complete Time: 09:59 sp3 08/19 09:50 Order name: O2 Sat Monitoring; Complete Time: 09:59 sp3 Administered Medications: 11:06 Drug: DuoNeb Nebulize (3:1) (2.5 mg - 0.5 mg) 3 ml Nebulizer once Route: Nebulizer; ph 11:38 Follow up: Response: No adverse reaction bp Disposition Summary: 08/19/24 10:54 Discharge Ordered Notes: Location: Home sp3 Condition: Stable sp3 Diagnosis - COPD exacerbation sp3 Followup: sp3 - With: Private Physician - When: Upon discharge from the Emergency Department - Reason: Continuance of care Discharge Instructions: - Discharge Summary Sheet sp3 - Living With COPD sp3 Forms: - Medication Reconciliation Form sp3 - Antibiotic Education sp3 - Prescription Opioid Use sp3 - Patient Portal Instructions sp3 - Leadership Thank You Letter sp3 Prescriptions: - Prednisone 20 mg Oral Tablet - take 3 tablets ORAL route once daily for 5 days; 15 tablet; Refills: 0, Product sp3 Selection Permitted - Zithromax Z-Dionte 250 mg Oral Tablet - take 1 tablet ORAL route as directed for 5 days Day 1 - take two (2) tablets sp3 one time. Day 2, 3, 4 , 5 take one (1) tablet once daily.; 6 tablet; Refills: 0, Product Selection Permitted Signatures: Dispatcher [employer] EDMS Nuvia Smiley RN RN ss Krystina Jean RN RN Radha Gardner MD MD sp3 Daron Thayer RN bp Corrections: (The following items were deleted from the chart) 09:51 09:51 BASIC METABOLIC PANEL+C.LAB.BRZ ordered. EDMS EDMS 09:51 09:51 CBC+H.LAB.BRZ ordered. EDMS EDMS 09:51 09:51 HEPATIC FUNCTION+C.LAB.BRZ ordered. EDMS EDMS 09:51 09:51 MAGNESIUM+C.LAB.BRZ ordered. EDMS EDMS 09:51 09:51 PROBNP+C.LAB.BRZ ordered. EDMS EDMS 09:51 09:51 PROTIME (+INR)+COAG.LAB.BRZ ordered. EDMS EDMS 09:51 09:51 Troponin High Sensitivity+C.LAB.BRZ ordered. EDMS EDMS 09:51 09:51 Chest Single View+RAD.RAD.BRZ ordered. EDMS EDMS 10:00 10:00 COVID-19 Ag + Flu A+B Ag+I.LAB.BRZ ordered. EDMS EDMS 10:00 10:00 BLOOD CULTURE*+BA.LAB.BRZ ordered. EDMS EDMS
[2024-08-19] MEDS ORDERED: IPRATROPIUM BROM 0.5MG/2.5ML ONE (11:05)
[2024-08-19] MEDS ORDERED: ALBUTEROL 2.5 MG/3 ML NEB SOL ONE (11:05)
[2024-08-19 11:52] VITALS: TEMP 98.2; O2SAT 98
[2024-08-19 11:58] VITALS: BP 141/75
== END 2024-08-19 11:38 | disposition home or self-care (01) ==
LOC: ER 09:19
DX: J44.1 Chronic obstructive pulmonary disease with (acute) exacerbation (principal); I48.91 Unspecified atrial fibrillation; Z95.4 Presence of other heart-valve replacement; Z85.89 Personal history of malignant neoplasm of other organs and systems
CPT/HCPCS: 93005; 87040; 85025; 80048; 36415; 83735; 85610; 80076; 83605; 84484; 83880; 71045; J7613; J7644

== ENCOUNTER 2024-12-20 12:30 | Emergency (ER) | payer OTHER ==
[2024-12-20] MEDS ORDERED: HYDROCODONE/APAP 7.5/325 MG TAB ONE (12:36)
--- NOTE | 2024-12-20 13:31 | RAD REPORT ---
EXAMINATION: XR RIGHT KNEE CLINICAL INDICATION: Female, 69 years old. Pain;Swelling TECHNIQUE: Multiple views of the right knee were obtained. COMPARISON: No prior exam. FINDINGS: Severe osteoarthritis is present involving the lateral compartment with [id number]. A fra cture is not visualized, within the limitations of significant osteopenia. Moderate suprapatellar joint effusion. MRI would be recommended if pain persists or progresses.
--- NOTE | 2024-12-20 13:38 | EDPHYS ---
Physician Documentation [facility] Name: Celsa Lorenzo Age: 69 yrs Sex: Female : 1955 Arrival Date: 12/20/2024 Time: 12:30 Bed IW2 Private MD: ED Physician Geovany Barksdale HPI: 12/20 12:46 This 69 yrs old Female presents to ER via Wheelchair with complaints of Knee Injury - sb4 RT. 12:47 Patient states that she was walking on a sling last night and started to feel herself sb4 also planted her right foot, which made her right knee twist abnormally. She has had pain and swelling to the right knee ever since. States she is able to bear weight it is just painful. Denies any prior injuries to that knee. No numbness or tingling. Has not taken any medication this morning. Historical: - Allergies: 12:42 Betadine; hb 12:42 Iodine; Topical only; hb - PMHx: 12:42 cardioversion; Atrial Fib; Depression; Vulva CA -chemo and radiation; hb - PSHx: 12:42 Cholecystectomy; Tonsillectomy; mitral and tricupid valve replacement.; Appendectomy; hb section; tubal ligation; ROS: 12:47 Constitutional: Negative for fever, chills, and weight loss, sb4 12:47 MS/extremity: Positive for injury or acute deformity, pain, swelling, tenderness, of the right knee, 12:47 All other systems are negative, Exam: 12:47 Constitutional: This is a well developed, well nourished patient who is awake, alert, sb4 and in no acute distress. Head/Face: Normocephalic, atraumatic. Eyes: Extra-ocular motions intact. Periorbital areas with no swelling, redness, or edema. ENT: Mucous membranes moist. Respiratory: No increased work of breathing, no retractions or nasal flaring. Skin: Warm, dry with normal turgor. Normal color with no rashes, no lesions, and no evidence of cellulitis. 12:47 Musculoskeletal/extremity: Circulation is intact in all extremities. Pulses: are normal with no appreciated deficits, Sensation intact. Joints: the right knee displays effusion, painful range of motion, swelling, tenderness, Calves: are non-tender, Vital Signs: 12:41 BP 150 / 73; Pulse 70; Resp 16; Temp 97.2; Pulse Ox 100% on R/A; hb MDM: 12:32 Medical Screening Exam initiated sb4 12:48 Differential diagnosis: dislocation, closed fracture, contusion, tendonitis, sprain, sb4 strain, effusion, ligamentous injury. 13:35 Data reviewed: vital signs, nurses notes, radiologic studies, and as a result, I will sb4 discharge patient. Counseling: I had a detailed discussion with the patient and/or guardian regarding the historical points, exam findings, and any diagnostic results supporting the discharge/admit diagnosis, radiology results, the need for outpatient follow up, a orthopedic surgeon, to return to the emergency department if symptoms worsen or persist or if there are any questions or concerns that arise at home. 12/20 12:44 Order name: Knee Right 3 View XRAY; Complete Time: 13:32 sb4 12/20 13:35 Order name: Jose wrap-joint; Complete Time: 13:52 sb4 12/20 13:35 Order name: Crutches; Complete Time: 13:52 sb4 Administered Medications: 12:46 Drug: Hydrocodone-Acetaminophen PO (7.5 mg-325 mg) 1 tabs PO once Route: PO; hb 13:52 Follow up: Response: No adverse reaction hb Disposition: 16:09 Co-signature as Attending Physician, Geovany Barksdale MD I reviewed the patient's care rn provided by the Advanced Practice Provider and agree with the diagnosis and treatment plan. Disposition Summary: 12/20/24 13:37 Discharge Ordered Notes: Location: Home sb4 Problem: new sb4 Symptoms: have improved sb4 Condition: Stable sb4 Diagnosis - Sprain of unspecified site of right knee, initial encounter sb4 - Effusion, right knee - suprapatellar sb4 - Osteoarthritis of knee, unspecified sb4 Followup: sb4 - With: Michel Harris MD - When: 1 week - Reason: Further diagnostic work-up, Recheck today's complaints, Re-evaluation by your physician Discharge Instructions: - Discharge Summary Sheet sb4 - Knee Effusion sb4 - Osteoarthritis sb4 - Knee Sprain, Adult, [id number] sb4 Forms: - Prescription Opioid Use sb4 - Patient Portal Instructions sb4 - Leadership Thank You Letter sb4 Prescriptions: - meloxicam 7.5 mg Oral tablet - take 1 tablet ORAL route daily; 7 tablet; Refills: 0, Product Selection sb4 Permitted - Prednisone 20 mg Oral Tablet - take 1 tablet ORAL route once daily for 5 days; 5 tablet; Refills: 0, Product sb4 Selection Permitted - Tramadol 50 mg Oral Tablet - take 1 tablet ORAL route every 8 hours as needed; 12 tablet; Refills: 0, sb4 Product Selection Permitted Signatures: Dispatcher [employer] EDGeovany Harrison MD MD rn Baxter, Heather, RN RN hb Brown, Sophia, PA-C PAKenyetta sb4 Corrections: (The following items were deleted from the chart) 13:35 13:33 Knee Immobilizer ordered. sb4 sb4
--- NOTE | 2024-12-20 13:38 | ER ---
Nurse's Notes [facility] Name: Celsa Lorenzo Age: 69 yrs Sex: Female : 1955 Arrival Date: 12/20/2024 Time: 12:30 Bed IW2 Private MD: Diagnosis: Sprain of unspecified site of right knee, initial encounter;Effusion, right knee-suprapatellar;Osteoarthritis of knee, unspecified Presentation: 12/20 12:41 Chief complaint: Slid while walking on edge of ditch last night, c/o severe right knee hb pain and swelling. Coronavirus screen: At this time, the client does not indicate any symptoms associated with coronavirus-19. Ebola Screen: No symptoms or risks identified at this time. Initial Sepsis Screen: Does the patient meet any 2 criteria? No. Patient's initial sepsis screen is negative. Does the patient have a suspected source of infection? No. Patient's initial sepsis screen is negative. Risk Assessment: Do you want to hurt yourself or someone else? Patient reports no desire to harm self or others. Onset of symptoms was December 19, 2024. 12:41 Method Of Arrival: Wheelchair hb 12:41 Acuity: MAXIMO 4 hb Historical: - Allergies: 12:42 Betadine; hb 12:42 Iodine; Topical only; hb - PMHx: 12:42 cardioversion; Atrial Fib; Depression; Vulva CA -chemo and radiation; hb - PSHx: 12:42 Cholecystectomy; Tonsillectomy; mitral and tricupid valve replacement.; Appendectomy; hb section; tubal ligation; Vital Signs: 12:41 BP 150 / 73; Pulse 70; Resp 16; Temp 97.2; Pulse Ox 100% on R/A; hb ED Course: 12:32 Patient arrived in ED. cj3 12:32 Roberta Johnson PA-C is PHCP. sb4 12:32 Geovany Barksdale MD is Attending Physician. sb4 12:42 Triage completed. hb 12:43 Arm band placed on. hb 13:24 Knee Right 3 View XRAY In Process Unspecified. EDMS 13:36 Michel Harris MD is Referral Physician. sb4 Administered Medications: 12:46 Drug: Hydrocodone-Acetaminophen PO (7.5 mg-325 mg) 1 tabs PO once Route: PO; hb 13:52 Follow up: Response: No adverse reaction hb Outcome: 13:37 Discharge ordered by MD. tom 13:45 Discharged to home via wheelchair, 13:45 Condition: stable 13:45 Discharge instructions given to patient, Instructed on discharge instructions, follow up and referral plans. medication usage, Demonstrated understanding of instructions, follow-up care, medications, Prescriptions given X 3, 13:52 Patient left the ED. Signatures: Dispatcher [employer] EDMS Elinor Vela RN RN Roberta Parra, PA-C PA-C sb4 Dali Mueller cj3 Corrections: (The following items were deleted from the chart) 12:43 12:41 Chief complaint: Slid while walking on edge of ditch last night, c/o severe right hb knee pain and swelling. hb
[2024-12-20 13:56] VITALS: BP 150/73; TEMP 97.2; O2SAT 100
== END 2024-12-20 13:52 | disposition home or self-care (01) ==
LOC: ER 12:30
DX: S83.91XA Sprain of unspecified site of right knee, initial encounter (principal); M25.461 Effusion, right knee; M17.9 Osteoarthritis of knee, unspecified; Z88.8 Allergy status to other drugs, medicaments and biological substances
CPT/HCPCS: 99283